=== PATIENT | female | born 1950 | race Caucasian/White ===

== ENCOUNTER 2018-07-13 19:21 | Emergency (ER) | payer MEDICARE, SELFPAY ==
[2018-07-13 19:22] VITALS: BP 165/94; PULSE 71; RESP 15; TEMP 36.3; BMI 33.6
--- NOTE | 2018-07-13 19:46 | ED.DCSUM_ITS ---
- ER Visit Summary Date of Service: 07/13/18 Chief Complaint: Back pain History of Present Illness: The patient is a 67 F presents with chronic back pain for a year to year and a half which got worse. She recently moved from [place] back to [place] and does not have a pain management doctor she is trying to get back into the pain management. She has no radiation of pain, no bowel or bladder compromise no urinary retention symptoms no saddle anesthesia. Physical Examination: She appears in some distress Moist mucous membranes, no obvious facial deformity No C-spine tenderness supple neck. Regular rate and rhythm without any obvious murmurs Clear lungs bilaterally speaking in full sentences without any obvious respiratory distress Abdomen soft and nontender no guarding or rebound She has tenderness over right paraspinal region of her lower back into her buttock. Negative straight leg test. Reflexes are 2+ patellar bilaterally 1+ Achilles bilaterally normal plantar flexion of both feet normal dorsiflexion of both great toes. Moves all extremities without any difficulty or pain. Skin does not show any obvious rashes or lesions, no trauma. Alert oriented ?3 with no gross focal deficit Emergency Department Course and Treatment: Patient will be given Dilaudid and Toradol. I will give her tizanidine for home. Discharge stable condition Impression: Acute on chronic back pain This note was generated with [employer] dictation software. It may contain incorrect words, spelling, and punctuation that were not noted in review of the chart prior to signing ED Disposition - Plan for ED Patient: Disposition: Home or Assisted Living Chief Complaint: Back Instructions: ED Low Back Pain Injury Prescriptions: Tizanidine HCl 4 mg PO TID #25 tab Referrals: Heladio Edwards MD [Primary Care Provider] -
[2018-07-13] MEDS: HYDROmorphone 1 MG/ML Syringe SC (19:53)
[2018-07-13] MEDS: Ketorolac 30 MG/ML Syringe IM (19:53)
[2018-07-13 20:16] VITALS: BP 170/75; PULSE 65; RESP 17; O2SAT 96
--- NOTE | 2018-07-13 20:17 | ED.RN ---
DISCHARGE INSTRUCTIONS GIVEN TO AND REVIEWED WITH PATIENT, PATIENT DENIES QUESTIONS OR CONCERNS AND VOICES UNDERSTANDING OF DISCHARGE INSTRUCTIONS. PT AMBULATES OUT OF ROOM WITHOUT DIFFICULTY.
== END 2018-07-13 20:18 | disposition home or self-care (01) ==
PROVIDERS: Emergency Provider Emergency Medicine; Family Provider Family Medicine; PCP Family Medicine
DX: M54.9 Dorsalgia, unspecified (principal); G89.29 Other chronic pain; J44.9 Chronic obstructive pulmonary disease, unspecified; E11.9 Type 2 diabetes mellitus without complications; G47.33 Obstructive sleep apnea (adult) (pediatric); Z72.0 Tobacco use; Z85.118 Personal history of other malignant neoplasm of bronchus and lung; Z79.02 Long term (current) use of antithrombotics/antiplatelets; Z79.82 Long term (current) use of aspirin; Z79.899 Other long term (current) drug therapy
CPT/HCPCS: 96372; 99282

== ENCOUNTER → 2019-01-09 15:11 | Outpatient (CLI) | payer MEDICARE, SELFPAY ==
--- NOTE | 2019-01-09 15:23 | MRI_ITS ---
STUDY: MRI LUMBAR SPINE WITHOUT CONTRAST REASON FOR EXAM: Female, 68 years old. Lower back pain for years. TECHNIQUE: Standardized fat and water weighted pulse sequences were obtained in the sagittal and axial planes. COMPARISON: None FINDINGS: T12-L1: Normal endplates. Normal disc height, hydration and morphology. Normal bilateral facet joints. Normal central canal and bilateral lateral recesses. Normal bilateral intervertebral neural foramina. Normal lumbar lordosis. There is no substantial scoliosis. Normal conus medullaris that terminates at the L2 level. L1-2: Disc desiccation mild decreased disc space with broad-based disc bulge. No significant spinal canal narrowing or foraminal narrowing. L2-3: Disc desiccation with preserved disc space without associated spinal canal narrowing or foraminal narrowing. L3-4: Disc desiccation and mild broad-based disc bulge without associated spinal canal narrowing or foraminal narrowing. L4-5: Disc desiccation with preserved disc space and minimal disc bulge without associated spinal canal narrowing or foraminal narrowing. L5-S1: Left para foraminal disc bulge with minimal left foraminal narrowing and otherwise no evidence of spinal canal narrowing. Normal visualized sacral ala. Normal visualized paraspinous soft tissue structures. MRI/Spine Lumbar (Routine) IMPRESSION: 1. L5/S1para foraminal left disc bulge resulting in minimal foraminal narrowing otherwise multiple levels with disc desiccation without significant spinal canal narrowing or foraminal narrowing. Electronically Signed: Pollo Fang DO at 8:35 EDT , Service support ,
== END ==
PROVIDERS: Family Provider Family Medicine; PCP Family Medicine; Referring Provider Anesthesiology Pain Medicine; Visit Provider Anesthesiology Pain Medicine
DX: M54.9 Dorsalgia, unspecified (principal)
CPT/HCPCS: 72148

== ENCOUNTER 2019-03-04 11:14 | Emergency (ER) | payer MEDICARE, SELFPAY ==
[2019-03-04 11:14] VITALS: PULSE 65; RESP 20; TEMP 36.9; O2SAT 99
[2019-03-04 11:15] VITALS: BP 150/82; PULSE 62; RESP 19; TEMP 36.9; O2SAT 99; BMI 35.1
--- NOTE | 2019-03-04 11:34 | EKG12_ITS ---
Test Reason : SOB Blood Pressure : / mmHG Vent. Rate : 065 BPM Atrial Rate : 065 BPM P-R Int : 214 ms QRS Dur : 086 ms QT Int : 454 ms P-R-T Axes : 068 050 064 degrees QTc Int : 472 ms Sinus rhythm with 1st degree A-V block Nonspecific T wave abnormality Prolonged QT Abnormal ECG Confirmed by GINO RUSHING, JANNETTE ([id number]), food editor JEFFREY DANIELS ([id number]) on 03/06/2019 12:33:01 PM Referred By: RENALDO/VERONICA Confirmed By:KAMI CHRISTIAN MD
--- NOTE | 2019-03-04 11:35 | RAD_ITS ---
STUDY: X-RAY CHEST REASON FOR EXAM: Female, 68 years old. Worsening shortness of breath TECHNIQUE: PA and lateral views of the chest. COMPARISON: 07/10/2016 FINDINGS: EKG leads overlie the chest The lungs are clear and expanded. There is no demonstrated pleural abnormality. Normal size heart. Normal mediastinum and fortino. Normal visualized pulmonary arteries. There is atherosclerotic calcification of the aortic arch with tortuosity. Normal visualized thoracic spine. Normal visualized ribs, clavicles, and shoulders. There is no demonstrated abnormality of the visualized soft tissue structures of the upper abdomen. RAD/Chest PA and Lateral IMPRESSION: No acute pulmonary process Electronically Signed: Farncis Johnson MD at 12:09 EDT , Service support ,
[2019-03-04 11:52] VITALS: O2SAT 95
[2019-03-04 12:09] LABS: Anion Gap 7 (5-15); BUN 14 mg/dL (7-18); BUN/Creat Ratio 21.2 RATIO (10-20); Calcium,Total 9.4 mg/dL (8.5-10.1); Chloride 103 mmol/L (98-107); Creatinine, Serum 0.66 mg/dL (0.55-1.02); EST Glomerular Filtration Rate 94 mL/min (>60); Est Glom Filt Rate - Afr Amer 114 mL/min (>60); Glucose 111 mg/dL (74-106); Potassium 4.1 mmol/L (3.5-5.1); Sodium Level 138 mmol/L (136-145)
[2019-03-04 12:13] LABS: Absolute Lymphocyte Count 1.94 X10^3/ul (0.83-4.51); Absolute Neutrophil Count 5.7 X10^3/uL (2.0-7.7); Basophil# 0.02 X10^3/uL; Basophil% 0.2 % (0-1); Eosinophil# 0.06 X10^3/uL; Eosinophils% 0.7 % (0-5); Hematocrit 42.4 % (37-47); Hemoglobin 14.1 g/dl (12.0-15.0); Lymphocyte # 1.94 X10^3/ul (4.0); Lymphocyte % 23.3 % (19-41); Mean Corp Hgb Conc 33.3 g/gl (32-36); Mean Corpuscular Hgb 29.9 pg (27.0-32.0); Mean Corpuscular Volume 89.8 fL (81-99); Mean Platelet Vol. 9.7 fl (6.2-12.0); Monocyte# 0.55 X10^3/uL; Monocyte% 6.6 % (0-10); Neutrophil # 5.73 X10^3/uL (2.7-7.7); Platelet Count 272 K/mm3 (150-450); RBC Distribution Width CV 14.2 % (11.6-14.6); RBC Distribution Width SD 46.5 fl (35.1-43.9); Red Blood Count 4.72 M/mm3 (4.2-5.4); White Blood Count 8.3 K/mm3 (4.4-11.0)
[2019-03-04 12:18] LABS: POSITIVE COUNT NO; POSITIVE DIFFERENTIAL NO; POSITIVE MORPHOLOGY NO
[2019-03-04 13:28] LABS: BNP,B-Type NATRIURETIC PEPTIDE 15.2 pg/mL (0-100)
--- NOTE | 2019-03-04 13:44 | ED.VISSUMM ---
- ER Visit Summary Date of Service: 03/04/19 Chief Complaint: Dyspnea History of Present Illness: The patient is a 68 F who states for the past month she has had dyspnea on exertion. She states it feels different than her COPD dyspnea. She states she cannot really describe why. She also notes some urinary frequency. She notes no change in her cough. She has had her feet and ankle have been swelling which is new for her. She states that she has gained about 10 pounds. She states that somebody from [employer] was at her house today they recommended that she go to her doctor but she could not get to her doctor's office so she called the ambulance to bring her here. History of hypertension history of lung cancer COPD and hypercholesterolemia. No fevers. Physical Examination: Afebrile vital signs stable Gen: Well-nourished well-developed Head: Normocephalic atraumatic Eyes: Perrl EOMI ENT: TMs clear no rhinorrhea moist mucous membranes Neck: Supple no lymphadenopathy no JVD nontender CVS: Regular rate rhythm no murmurs normal S1-S2 Respiratory: No distress patient is tachypneic but her lungs are clear to auscultation bilaterally chest nontender Abdomen: Soft nontender nondistended normal bowel sounds no masses Back: Nontender Extremity: Nontender no edema Skin: Normal color no rash Neuro: alert orientated ?3 CN II-XII intact normal strength sensation reflexes gait cerebellar Psych: Normal affect normal mood Test Results: Chest x-ray is negative. EKG shows a sinus rhythm with first-degree block at a rate of 65. CBC is normal troponin negative glucose 111 perimetric peptide normal at 15. Normal creatinine. Emergency Department Course and Treatment: Repeat examination the patient is on room air. She is not dyspneic I think it is reasonable to prescribe her Lasix for the next few days and have her follow-up. She is to do weigh yourself daily take that information to her doctor's office. Impression: 1. Dyspnea 2. Lymphedema This note was generated with [employer] dictation software. It may contain incorrect words, spelling, and punctuation that were not noted in review of the chart prior to signing ED Disposition - Plan for ED Patient: Disposition: Home or Assisted Living Instructions: Lymphedema Prescriptions: Furosemide [Lasix] 40 mg PO DAILY #5 tab Prescription Printed Referrals: Heladio Edwards MD [Primary Care Provider] - 5-7 Days
[2019-03-04 14:27] VITALS: BP 156/57; PULSE 74; RESP 18; O2SAT 96
== END 2019-03-04 14:31 | disposition home or self-care (01) ==
PROVIDERS: Emergency Provider Emergency Medicine; Family Provider Family Medicine; PCP Family Medicine
DX: R06.00 Dyspnea, unspecified (principal); I89.0 Lymphedema, not elsewhere classified; J44.9 Chronic obstructive pulmonary disease, unspecified; I10 Essential (primary) hypertension; E78.00 Pure hypercholesterolemia, unspecified; R35.0 Frequency of micturition; M79.89 Other specified soft tissue disorders; Z79.02 Long term (current) use of antithrombotics/antiplatelets; Z79.82 Long term (current) use of aspirin; Z79.899 Other long term (current) drug therapy; Z85.118 Personal history of other malignant neoplasm of bronchus and lung; Z87.891 Personal history of nicotine dependence
CPT/HCPCS: 71046; 80048; 83880; 84484; 85025; 93005; 99285; A4216

== ENCOUNTER → 2019-03-14 10:39 | Outpatient (CLI) | payer MEDICARE, SELFPAY ==
[2019-03-04 11:15] VITALS: BMI 35.1
[2019-03-14 11:42] LABS: Amphetamine Urine VISTA NEGATIVE (<1000 ng/mL); Barbiturate Urine VISTA NEGATIVE (< 200 ng/mL); Benzodiazepine Urine VISTA NEGATIVE (< 200 ng/mL); Cocaine Urine VISTA NEGATIVE (< 300 ng/mL); Ecstacy Urine VISTA NEGATIVE (< 500 ng/mL); Methadone Urine VISTA NEGATIVE (< 300 ng/mL); PCP Urine VISTA NEGATIVE (< 25 ng/mL); THC Urine VISTA NEGATIVE (< 50 ng/mL); Vista UDS pH Range 6
== END ==
PROVIDERS: Family Provider Family Medicine; PCP Family Medicine; Referring Provider Anesthesiology Pain Medicine; Visit Provider Anesthesiology Pain Medicine
DX: F11.20 Opioid dependence, uncomplicated (principal)
CPT/HCPCS: 80307

== ENCOUNTER 2019-04-07 20:28 | Emergency (ER) | payer MEDICARE, SELFPAY ==
[2019-04-07 20:29] VITALS: BP 154/83; PULSE 76; RESP 16; TEMP 36.6; O2SAT 97; BMI 32.9
--- NOTE | 2019-04-07 20:42 | ED.VIS.GEN ---
History of Present Illness Chief Complaint: Chest Other Informant: Patient Onset: Yesterday Context: Sudden Onset Timing: Continuous Quality: Pain located under left breast Location: Inferior left breast Current Severity: Mild Maximum Severity: Severe Worsened by: Movement, supine position, use of left upper extremity Relieved by: Rest Associated Symptoms: None Narrative: Patient is an elderly woman who began working out at [facility]. She reports pain under her left breast. Pain is worse with movement. She has no associated symptoms. She does have risk factors for coronary disease. She has no other complaints. There is no history of PE or DVT. There is no complaint of leg pain, swelling or discoloration. She has not noted a rash. There is no history of direct trauma. Prior similar symptoms: No Recent Illness/Hospitalization: No - Past Medical History (1) History of type 2 diabetes mellitus Status: Acute (2) COPD exacerbation Status: Acute (3) Sleep apnea Status: Chronic (4) Tobacco abuse Status: Chronic (5) Lung cancer Status: Resolved Past Medical History - Allergies and Home Meds Allergies/Adverse Reactions: Allergies bupropion HCl [From Wellbutrin] Allergy (Verified 04/07/19 20:33) Hives gabapentin [From Neurontin] Allergy (Verified 04/07/19 20:33) Other moxifloxacin HCl [From Avelox] Allergy (Verified 04/07/19 20:33) Hives Primary Care Physician: Heladio Edwards MD [Primary Care Provider] - Prior records reviewed: Yes Surgical History: noncontributory Lives: Alone Smoking Status: Former smoker Alcohol: None Drugs: None - Family History Maternal Family History: Reports: No pertinent history Review of Systems General: Denies: Chills, Fever, Malaise, Subjective, Sweats, Weight loss, - Cardiovascular: Reports: Chest pain. Denies: Palpitations, Heart racing Respiratory: Denies: Dyspnea, Cough, Sputum, Dyspnea on exertion, Orthopnea, Paroxysmal nocturnal dyspnea, -, - Gastrointestinal: Denies: Abdominal pain, Nausea, Vomiting, Diarrhea, Constipation, Melena, Hematochezia, -, - Genitourinary: Denies: Dysuria, Hematuria, Frequency Musculoskeletal: Reports: Back pain. Denies: Myalgias, Arthralgias, Neck pain, Swelling, Extremity Pain Skin: Denies: Rash, Abscess, Abrasions, Wounds, -, - Hematologic: Denies: Easy bruising, Easy bleeding Allergy: Denies: Uticaria, Swelling of the mouth Physical Exam Vital Signs/Narrative: Vital Signs Temp Pulse Resp BP Pulse Ox 04/07/19 20:29 97.9 F 76 16 154/83 H 97 Inital Vital Signs reviewed: Yes General: Well nourished, Well developed, No Acute Distress Head: Normocephalic, Atraumatic Eyes: Perrl, EOMI. Negative for: Pale conjunctiva, Scleral icterus, - ENT: Moist mucous membranes, No rhinorrhea Cardiovascular: Regular rate, Regular rhythm, No murmurs, Normal S1, Normal S2 Respiratory: No distress, CTA bilaterally, Chest tenderness - Reproducible chest pain inferior left breast over the lower ribs. There is no crepitus or subcutaneous air. Abdomen: Soft, Nontender, Nondistended, Normal bowel sounds, No masses. Negative for: Hepatomegaly, Splenomegaly Back: Nontender, Normal Inspection. Negative for: CVA tenderness Extremities: Nontender, No edema Skin: Normal color, No rash, No Trauma. Negative for: Cyanosis, Diaphoresis, Jaundice Neurological: Alert, Oriented x3, Cranial nerves II-XII grossly intact, Normal Strength, Normal Sensation Psychological: Normal affect, Normal Mood Diagnostic/Tx/Re-eval - Medical Decision Making Istria pain after she began working out 3 days ago the fact the pain is worse with movement of her left upper extremity and reproducible with no rash noted this is muscular pain. There is no evidence of shingles. ED Disposition - Plan for ED Patient: Disposition: Home or Assisted Living Diagnosis: Left-sided chest wall pain Instructions: Chest Wall Strain Prescriptions: Hydrocodone Bitart/Apap 5-325 [Marshall 5MG-325MG] 1 tablet PO Q6H PRN PRN 3 Days #10 tablet PRN Reason: Pain Transmission Status: Sent to [facility] Referrals: Heladio Edwards MD [Primary Care Provider] - Additional Instructions: Your prescription was electronically transmitted to [facility].
[2019-04-07] MEDS: HYDROcodone Bitartrate/Apap 5/325 Tablet PO (21:08)
== END 2019-04-07 21:12 | disposition home or self-care (01) ==
LOC: ED 20:52
PROVIDERS: Emergency Provider Emergency Medicine; Family Provider Family Medicine; PCP Family Medicine
DX: R07.89 Other chest pain (principal); J44.9 Chronic obstructive pulmonary disease, unspecified; E11.9 Type 2 diabetes mellitus without complications; G47.30 Sleep apnea, unspecified; Z79.02 Long term (current) use of antithrombotics/antiplatelets; Z79.82 Long term (current) use of aspirin; Z79.52 Long term (current) use of systemic steroids; Z79.899 Other long term (current) drug therapy; Z88.8 Allergy status to other drugs, medicaments and biological substances; Z85.118 Personal history of other malignant neoplasm of bronchus and lung; Z87.891 Personal history of nicotine dependence
CPT/HCPCS: 99283

== ENCOUNTER → 2020-02-04 13:35 | Outpatient (CLI) | payer MEDICARE, SELFPAY ==
--- NOTE | 2020-02-04 13:36 | RAD_ITS ---
STUDY: X-RAY - LEFT KNEE REASON FOR EXAM: Female, 69 years old. PAIN TECHNIQUE: 5 view(s) of the knee. Crooks views included COMPARISON: None. FINDINGS: There is demineralization of the visualized distal femur. There is demineralization of the tibia and fibula. Normal proximal tibiofibular articulation. There is no demonstrated fracture. There is mild degenerative arthrosis of the medial femorotibial compartment. Normal lateral femorotibial compartment. There is mild to moderate narrowing of the lateral patellofemoral compartment. There is no demonstrated joint effusion. There are atherosclerotic calcifications. RAD/Knee 4 or More Views IMPRESSION: Degenerative arthrosis. Electronically Signed: Rosendo Hargrove MD at 17:25 EDT , Service support ,
== END ==
PROVIDERS: PCP Family Medicine; Referring Provider Physician Assistant; Visit Provider Physician Assistant
DX: M17.12 Unilateral primary osteoarthritis, left knee (principal)
CPT/HCPCS: 73564

== ENCOUNTER 2020-03-01 13:17 | Emergency (ER) | payer MEDICARE, MEDICAID, SELFPAY ==
[2020-02-04 13:37] VITALS: BMI 32.9
[2020-03-01 13:18] VITALS: BP 144/78; PULSE 82; RESP 23; TEMP 36.6; O2SAT 96; BMI 30.8
--- NOTE | 2020-03-01 13:24 | EKG12_ITS ---
Test Reason : CP Blood Pressure : / mmHG Vent. Rate : 069 BPM Atrial Rate : 069 BPM P-R Int : 200 ms QRS Dur : 088 ms QT Int : 402 ms P-R-T Axes : 049 067 075 degrees QTc Int : 430 ms Normal sinus rhythm Nonspecific T wave abnormality Abnormal ECG Confirmed by NEIDA RUSHING, BREE ([id number]), newspaper editor managing JEFFREY DANIELS ([id number]) on 03/03/2020 1:21:30 PM Referred By: RENATO Confirmed By:BREE CARRASQUILLO MD
--- NOTE | 2020-03-01 14:13 | RAD_ITS ---
STUDY: X-RAY - UNILATERAL RIBS ( RIGHT ) WITH CHEST REASON FOR EXAM: Female, 69 years old. PT GOT BEAR HUGGED 9 DAYS AGO, CONTINUED ANTERIOR RIB PAIN TECHNIQUE - RIBS: 4 view(s) of the ribs. TECHNIQUE - CHEST: Single PA view of the chest. COMPARISON: Comparison is made with prior chest radiograph dated March 04, 2019. FINDINGS - RIBS: Normal visualized ribs without a demonstrated fracture. FINDINGS - CHEST: The lungs are clear and expanded. There is no demonstrated pleural abnormality. Normal size heart. Normal mediastinum and fortino. Normal visualized pulmonary arteries. There is atherosclerotic calcification of the aortic arch with tortuosity. There is a mild dextroscoliosis of the thoracic spine. Normal visualized ribs, clavicles, and shoulders. There is no demonstrated abnormality of the visualized soft tissue structures of the upper abdomen. RAD/Ribs Uni Min 3V w/PA Chest IMPRESSION: RIBS: Normal x-ray examination of the ribs. CHEST: Normal x-ray examination of the chest. Electronically Signed: Dion Orourke, at 14:55 EDT , Service support ,
[2020-03-01 14:17] VITALS: RESP 18; O2SAT 100
[2020-03-01] MEDS: morphine 8 MG/ML Syringe IM (14:20)
[2020-03-01] MEDS: Ondansetron 8 MG Tablet PO (14:20)
--- NOTE | 2020-03-01 14:37 | ED.VISSUMM ---
- ER Visit Summary Date of Service: 03/01/20 Chief Complaint: Right-sided rib pain History of Present Illness: The patient is a 69 F presenting with right-sided rib pain. Patient states this started 9 days ago. She states she was given a bear hug by a friend. Following this she had severe pain in her right ribs. She was seen at urgent care and had an x-ray and was diagnosed with a right sided rib fracture. She has been taking ibuprofen at home. She complains of persistent pain. She has a history of COPD. She states she has shortness of breath but this is no worse than usual. Denies other complaints. Physical Examination: Vitals are stable. Patient is afebrile. Alert no acute distress. HEENT exam is unremarkable. Neck is supple. Lungs are clear and equal bilaterally. Right lateral chest wall tenderness. No crepitus Heart is regular rate and rhythm. Abdomen is soft nontender nondistended. No guarding or rebound Extremities are unremarkable. Skin is warm and dry. Erythematous rash right lower chest consistent with herpes zoster Remainder of exam is unremarkable. Emergency Department Course and Treatment: Patient was given morphine, Zofran. Right-sided rib xray shows RIBS: Normal x-ray examination of the ribs. CHEST: Normal x-ray examination of the chest. Patient feels improved following medications. She is given prescription for Valacyclovir and Percocet. She is advised to follow-up with her primary care physician. She was given an incentive spirometer. Advised return the ED if worsening complaints. Disposition: Discharged home Impression: Herpes zoster, right rib contusion This note was generated with [employer] dictation software. It may contain incorrect words, spelling, and punctuation that were not noted in review of the chart prior to signing ED Disposition - Plan for ED Patient: Instructions: ED CHEST CONTUSION, ED Shingles Prescriptions: Oxycodone HCl/Acetaminophen [Percocet 5/325] 1 tab PO Q6H PRN PRN 3 Days #12 tab PRN Reason: Pain Prescription Printed Valacyclovir HCl [Valacyclovir] 1,000 mg PO TID #21 tab Prescription Printed Referrals: Heladio Edwards MD [Primary Care Provider] -
--- NOTE | 2020-03-01 15:42 | ED.DEP ---
ED Disposition - Plan for ED Patient: Instructions: ED CHEST CONTUSION, ED Shingles Prescriptions: Oxycodone HCl/Acetaminophen [Percocet 5/325] 1 tablet PO Q6H PRN PRN 3 Days #12 tablet PRN Reason: Pain Valacyclovir HCl [Valacyclovir] 1,000 mg PO TID #21 tablet Referrals: Heladio Edwards MD [Primary Care Provider] -
== END 2020-03-01 16:24 | disposition home or self-care (01) ==
PROVIDERS: Emergency Provider Emergency Medicine; PCP Family Medicine
DX: S20.211A Contusion of right front wall of thorax, initial encounter (principal); X58.XXXA Exposure to other specified factors, initial encounter; Y93.89 Activity, other specified; Y92.9 Unspecified place or not applicable; Y99.8 Other external cause status; B02.9 Zoster without complications; J44.9 Chronic obstructive pulmonary disease, unspecified; Z72.0 Tobacco use
CPT/HCPCS: 71101; 93005; 96372; 99283

== ENCOUNTER 2020-08-25 15:01 | Emergency (ER) | payer MEDICARE, MEDICAID, SELFPAY ==
[2020-08-25 15:02] VITALS: BP 181/81; PULSE 85; RESP 16; TEMP 36.2; O2SAT 98; BMI 32.8
[2020-08-25] MEDS: HYDROcodone Bitartrate/Apap 5/325 Tablet PO (15:27)
--- NOTE | 2020-08-25 15:30 | RAD_ITS ---
STUDY: X-RAY - LEFT KNEE REASON FOR EXAM: Female, 69 years old. LEFT KNEE PAIN x 3 WEEKS, UNKNOWN HOW INJURED TECHNIQUE: 4 view(s) of the knee. COMPARISON: 02/04/2020 FINDINGS: Normal visualized distal femur. Normal visualized proximal tibia and fibula. Normal proximal tibiofibular articulation. There is mild degenerative arthrosis of the medial femorotibial compartment. Normal lateral femorotibial compartment. Normal patellofemoral articulation. The soft tissue structures are unremarkable. RAD/Knee 4 or More Views IMPRESSION: No acute fracture or dislocation. Electronically Signed: Dario Burdick MD at 15:42 EST Tel , Service support ,
--- NOTE | 2020-08-25 15:38 | ED.VISSUMM ---
- ER Visit Summary Date of Service: 08/25/20 Chief Complaint: Left knee pain History of Present Illness: The patient is a [address] Davies and Dr. Edwards. She reports she has left knee pain that began 3 weeks ago. She does not remember a specific injury. However, she reports that this is similar to when she has had meniscus tears in the past. Complains of a sharp pain is 8 of 10 with movement and pain-free at rest. She denies any numbness or weakness. Physical Examination: Vitals: Stable. Afebrile. General: Well-nourished and well-developed. Head: Normocephalic atraumatic. Neck: Supple, no lymphadenopathy. No JVD. Nontender. Cardiovascular: Regular rate and rhythm. No murmurs. Respiratory: No respiratory distress. Clear to auscultation bilaterally. Abdominal: Soft, nontender, nondistended, normal bowel sounds. No guarding, rebound, or peritoneal signs. Back: Nontender. Extremities: Left knee: Mild diffuse tenderness to palpation with no point tenderness. There is no overlying erythema or warmth to suggest a septic joint. She has no joint effusion. She has no pain with short arc movements. She does have pain, but no ligamentous instability with anterior/posterior drawer and medial/lateral stress. Skin: Normal color, no rash. Neurologic: Alert and oriented ?3. Cranial nerves II through XII are intact. Normal strength and sensation. Psych: Normal affect. Test Results: Left knee x-ray shows no acute disease. Emergency Department Course and Treatment: Patient was treated with Kasbeer and placed in a knee immobilizer. Treatment Plan: An [facility] report was obtained which shows the patient's only had 5 prescriptions for opiates in the past year. However, on August 01 patient was given a prescription for a buprenorphine patch by Dr. Gregg Long. I discussed the patient that prescribing additional opiate medications with this patch on is not appropriate. She does understand this. She instructed to ice and use Tylenol and/or ibuprofen for additional pain. Follow-up with Dr. Long for further opiate-based medications. Follow-up Dr. Davies as soon as she can regarding her knee pain. Disposition: To home in improved and stable condition. Impression: 1. Left knee pain. This note was generated with [employer] software. It may contain incorrect words, spelling, and punctuation that were not noted in review of the chart prior to signing ED Disposition - Plan for ED Patient: Instructions: ED Knee Pain of Uncertain Cause Referrals: Gregg Long DO [STAFF PHYSICIAN] - As soon as possible Yaquelin Davies DO [STAFF PHYSICIAN] - As soon as possible
[2020-08-25 16:16] VITALS: BP 159/89; PULSE 75; RESP 16; O2SAT 93
== END 2020-08-25 16:18 | disposition home or self-care (01) ==
LOC: ED 15:46
PROVIDERS: Emergency Provider Emergency Medicine; PCP Family Medicine
DX: M25.562 Pain in left knee (principal); I10 Essential (primary) hypertension; E11.9 Type 2 diabetes mellitus without complications; J44.9 Chronic obstructive pulmonary disease, unspecified; Z79.84 Long term (current) use of oral hypoglycemic drugs; Z79.899 Other long term (current) drug therapy; Z72.0 Tobacco use
CPT/HCPCS: 73564; 99283

== ENCOUNTER → 2020-09-09 12:24 | Outpatient (CLI) | payer MEDICARE, MEDICAID, SELFPAY ==
[2020-09-02 09:46] VITALS: BMI 30.8
--- NOTE | 2020-09-09 12:26 | MRI_ITS ---
STUDY: MRI LEFT KNEE REASON FOR EXAM: Medial/anterior left knee pain, no specific injury, meniscal surgery 2015. TECHNIQUE: Standardized fat and water weighted pulse sequences were obtained in all 3 orthogonal planes. COMPARISON: Radiographs 08/25/2020. FINDINGS: There is a partial medial meniscectomy. There is a small subtle oblique band of signal in the posterior horn of the medial meniscus extending to the inferior articular surface (proton-density sagittal images 11-14), either scarring or small recurrent medial meniscal tear. Normal hyaline cartilage of the medial femorotibial compartment. There is mild subchondral bone edema of the medial tibial plateau (T2 coronal images 15-17), a stress phenomenon. Normal medial collateral ligamentous complex (MCL). Normal distal semimembranosus, gracilis and semitendinosus tendons. Normal lateral meniscus. Normal hyaline cartilage of the lateral femorotibial compartment. Normal lateral femoral condyle and tibial plateau. Normal proximal tibiofibular articulation. Normal lateral collateral (fibular) ligament. Normal popliteus tendon. Normal biceps femoris tendon. Normal anterior cruciate ligament (ACL). Normal posterior cruciate ligament (PCL). Normal congruent patellofemoral articulation. Normal hyaline cartilage of the patellofemoral compartment. Normal medial and lateral patellar retinaculum. Normal quadriceps tendon. Normal patellar tendon. Normal Hoffa''s fat pad. There is a minimal volume of fluid in the knee joint. There is mild edema in the anterior subcutis adipose space. The otherwise visualized osseous structures are unremarkable. MRI/Lower Ext Joint Only (Routine) IMPRESSION: Partial medial meniscectomy with subtle signal alteration of the posterior horn of the medial meniscus, either scarring or small recurrent medial meniscal tear. Mild subchondral bone edema of the medial tibial plateau, a stress phenomenon. Electronically Signed: Carlton Fernandes MD at 13:50 EST Tel , Service support ,
== END ==
PROVIDERS: PCP Family Medicine; Referring Provider Physician Assistant; Visit Provider Physician Assistant
DX: M25.562 Pain in left knee (principal)
CPT/HCPCS: 73721

== ENCOUNTER 2020-10-05 06:43 | Day surgery (SDC) | payer MEDICARE, MEDICAID, SELFPAY ==
[2020-09-02 09:46] VITALS: BMI 30.8
[2020-10-05] VITALS (9 sets, daily range): BP systolic 108–149; BP diastolic 46–76; PULSE 60–70; RESP 16; TEMP 36.3–36.6; O2SAT 94–100; BMI 32.3
[2020-10-05] MEDS: Lactated Ringers 1,000 ML 100 ML IV ×2 (07:21→11:10)
[2020-10-05 07:30] LABS: Bedside Glucose 108 mg/dL (70-110)
[2020-10-05] MEDS: Epinephrine (1 mg/ml) 1 MG/ML VIAL (08:56)
[2020-10-05] MEDS: Mupirocin Ointment 22gm Tube 1 APPLIC (08:56)
--- NOTE | 2020-10-05 09:00 | RAD_ITS ---
STUDY: X-RAY - LEFT KNEE REASON FOR EXAM: Micro internal fixation of tibial plateau. TECHNIQUE: 3 intraoperative images of the knee. COMPARISON: Radiographs 08/25/2020. FINDINGS: Fluoroscopy was provided for localization of the medial tibial plateau. Electronically Signed: Carlton Fernandes MD at 15:15 EST Tel , Service support , RAD/Knee 1 or 2 Views
[2020-10-05] MEDS: Cefazolin 2 GM in 0.9% Normal Saline 100 ML IV (09:12)
--- NOTE | 2020-10-05 09:27 | PCM.HP.BLA ---
History and Physical I have re-examined the patient. There are no clinical changes since date of exam. Intake Intake Visit Reasons: Left knee Accompanied by: Self Is patient in pain?: Yes Pain scale (1-10): 5 Allergies bupropion HCl [From Wellbutrin] Allergy (Verified 09/16/20 12:57) Hives gabapentin [From Neurontin] Allergy (Verified 09/16/20 12:57) Other moxifloxacin HCl [From Avelox] Allergy (Verified 09/16/20 12:57) Hives Medications Pramipexole Di-HCl [Pramipexole Dihydrochloride] 1.5 mg PO QHS 06/12/14 [History Confirmed 09/16/20] traZODone [Desyrel] 100 mg PO QHS 06/12/14 [History Confirmed 09/16/20] Ropinirole HCl [Requip] 2 mg PO QHS 10/20/15 [History Confirmed 09/16/20] Albuterol Inhaler [Ventolin Hfa] 1 - 2 puff INHALATION Q4H PRN PRN #1 inhaler 05/31/16 [Rx Confirmed 09/16/20] Amlodipine [Norvasc] 5 mg PO DAILY #30 tab 05/31/16 [Rx Confirmed 09/16/20] Albuterol Aerosols [Ventolin Aerosols] 1 inhaler INHALATION Q4H PRN 07/01/16 [History Confirmed 09/16/20] Atorvastatin Calcium [Lipitor] 20 mg PO QHS 07/01/16 [History Confirmed 09/16/20] Metformin HCl 500 mg PO DAILY 08/25/20 [History Confirmed 09/16/20] umeclidinium 62.5 mcg/actuation blister powder for inhalation INHALATION 08/29/20 [History Confirmed 09/16/20] etodolac 500 mg tablet 500 mg PO BID #30 tab 08/31/20 [Rx Confirmed 09/16/20] PFS Social History (Updated 09/16/20 @ 14:27 by PHILOMENA Landrum) Smoking Status: Current every day smoker HPI Left knee: Details: Parts of this documentation were recorded by a scribe, this documentation accurately reflects the service provided and the decisions made by Kirby grace PA 09/16/[id number] PATT[place] is a 69 year old F here today for review of her MRI. Patient had her MRI on 09/09/2020. Patient states her pain is rated: 5/10 from the pain scale. Ortho Exam Left Knee Skin/Wound: No ecchymosis, No erythema, No swelling Contralateral Normal: Yes Homans Sign: No Knee ROM: Yes ROM-Extension -20 to 0, Yes ROM-Flexion 0-140 Examination: Yes med jt line tenderness, No Lat jt line tenderness, No TTP inf pole patella, Yes Pain with flexion Quad Atrophy: Yes Popliteal Adenopathy: No KNEE: No gross abnormalities on inspection of the knee. No evident effusion. She continues to have some medial joint line tenderness including the medial tibial plateau. Assessment & Plan Problems 1. Chronic pain of left knee M25.562; G89.29 2. Bone marrow edema R93.7 Plan Patient does the office today for follow-up of her MRI. Patient continues to have left knee pains primarily in the medial aspect of the knee. Patient has had an injection which she states did not improve her pain at all. 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 She does however continue to have instability/giving out as well as continued pain. MRI impression as well as images were reviewed and discussed with patient in office today. At this time patient states that the knee is constantly painful keeps her from doing things that she would like to do and constantly feels again unstable. We did discuss part of this could be that she gets pain from the edematous area shutting down the quad muscles at the same time she does have evident weakness of both of her quad muscles that she could benefit from strengthening. We also discussed there is the meniscus debate whether this is chronic scarring versus acute injury. With her having failed some conservative measures patient really would like to have something more aggressive done of the knee. I discussed with patient that we will have to confer with surgeon to decide next step if that would be an arthroscopy with meniscectomy versus repair as well as possible micro internal fixation. She will probably have to have a telehealth versus virtual visit to discuss with surgeon. Continue to ice and wear her brace and take an anti-inflammatory in the meantime. All of patient's questions were answered today. We did discuss risks of surgery which include but are not limited to blood clots, blood loss, infection, neurovascular injuries, failure of procedure, loss of limb loss of life from anesthesia as well as COVID-19 risk. Patient understands these and consent was signed in office today in case surgeon would want to proceed with arthroscopy. This note was generated with [employer] dictation software. It may contain incorrect words, spelling, and punctuation that were not noted in checking the note before signing. Discussed with patient about options for treatment. She has increased subchondral edema in her medial tibial plateau at this point due to evaluation see what looks like it with a anesthetic with arthroscopy and possible micro internal fixation. She will also put her on aspirin twice daily KAIA stockings elevate ice ankle pumps and call with concerns. Coding Level of Care Code Off vis,est,level 2 Diagnoses Chronic pain of left knee M25.562; G89.29 ??Chronicity: chronic Bone marrow edema R93.7
--- NOTE | 2020-10-05 09:28 | PCM.DC.ORTHO ---
Discharge Diet: No Restrictions - asa 325 bid, ttwb for 2 weeks, elevate, ice, ankle pumps, call with concerns, remove dressings in 4 days and apply bandaids to incision sites, may geit incision wet after 4 days Discharge Activity: May Not Drive May shower in (days): 1 Ice area for (Minutes): 20 - Every hour while awake. Weight Bearing Status: Weight bearing as tolerated Keep extremity elevated above heart level: Operative Extremity Call your doctor if your incision/area has: Continuous Slow Oozing, Sudden Increased Bleeding, Increased Pain/ Swelling, Increased Redness, Foul Smelling Discharge Call your doctor if you observe: Fever of 101 or Higher, Coldness, Increased Pain, Numbness or Tingling, Change in Color, Calf discomfort Allergies/Adverse Reactions: Allergies bupropion HCl [From Wellbutrin] Allergy (Verified 10/05/20 07:01) Hives gabapentin [From Neurontin] Allergy (Verified 10/05/20 07:01) Other moxifloxacin HCl [From Avelox] Allergy (Verified 10/05/20 07:01) Hives Medications to take at Discharge Pramipexole Di-HCl [Pramipexole Dihydrochloride] 1.5 mg PO QHS 06/12/14 traZODone [Desyrel] 100 mg PO QHS 06/12/14 Ropinirole HCl [Requip] 2 mg PO QHS 10/20/15 Albuterol Inhaler [Ventolin Hfa] 1 - 2 puff INHALATION Q4H PRN PRN #1 inhaler 05/31/16 Amlodipine [Norvasc] 5 mg PO DAILY #30 tab 05/31/16 Albuterol Aerosols [Ventolin Aerosols] 1 inhaler INHALATION Q4H PRN 07/01/16 Atorvastatin Calcium [Lipitor] 20 mg PO QHS 07/01/16 Metformin HCl 500 mg PO DAILY 08/25/20 umeclidinium 62.5 mcg/actuation blister powder for inhalation 1 puff INHALATION DAILY 08/29/20 Buprenorphine 1 ea TD QWEEK 09/28/20 tramadol 50 mg tablet 50 mg PO Q8H PRN 10 Days #30 tab 09/29/20 Oxycodone HCl/Acetaminophen [Percocet 5/325] 1 - 2 tab PO Q6H PRN PRN 5 Days #28 tab 10/05/20 The following prescriptions were given: Oxycodone HCl/Acetaminophen [Percocet 325] 1 - 2 tab PO Q6H PRN PRN 5 Days #28 tab PRN Reason: Pain Transmission Status: Sent to [facility] Primary Care Physician: Heladio Edwards MD [Primary Care Provider] - Test Results: Test results from this visit will be discussed in further detail at your follow-up appointment, if applicable. Please Follow Up With: Yaquelin Davies, DO - [phone]
--- NOTE | 2020-10-05 09:28 | PCM.OPRPT ---
Report of Operation Date of Procedure: 10/05/20 Pre-Operative Diagnosis: left knee oa, med and lateral meniscus tears, med tib plateau subchondral insufficiency fracture Post-Operative Diagnosis: same Surgery/Procedure Performed:: salk, pmm, plm, microinternal fixation medial tibial plateau infusion pharmacist: Kirby Hanks Type of Anesthesia:: General Anesthesiologist: Brennen Acevedo Estimated Blood Loss (mL): min Fluids Replaced: 700cc lr Description of Procedure: Preop note Patient is 70-year-old male with history of previous meniscectomy in the past with increasing medial knee pain especially along the medial tibial plateau. MRI confirms previous meniscectomy as well as increasing edema in the medial tibial plateau consistent with an insufficiency fracture. Risk benefits alternatives were discussed with patient. Risk include but not limited to blood loss, blood clot, infection, neurovascular, failure procedure, loss of life and loss of limb. Patient aware leprosy with left knee arthroscopy repair as indicated. Discussed preoperative and postoperative plan. Patient will be toe-touch weightbearing patient would be have pain medication as well as aspirin twice daily family is aware and agreement of plan. Yuliana Gorman We discussed the current risk associated COVID-19. While it is understood that there is a community spread of COVID 19 the risk of glen COVID-19 while at [facility] is very low, however, the risk cannot be completely mitigated because of the community spread of the disease. We discussed in detail the risk of exposure to and or potential harm posed by the COVID-19 virus with having a surgery/procedure at this time versus the risk of delaying the surgery/procedure. Is not possible to know either the risk of delaying the surgery procedure or chance of getting an infection with perfect accuracy, but a joint decision was made to proceed at this time with a schedule surgery/procedure as indicated on the consent form. Patient was notified that we will need to comply with any screening or testing [facility] wishes to perform or that surgery may be delayed for any positive results. Operative note Patient seen examined preoperative holding area. Left knee was marked. Patient brought to the operating room placed supine on the operating table. Signed, anesthesia, antibiotics were administered. Left knee was prepped and draped in usual sterile technique with a tourniquet on her upper thigh. All bony promises well-padded SCDs placed on her contralateral limb. Left leg is then marked out our anterior lateral and anterior medial portal placement. The left leg was then elevate exsanguinated tourniquet was raised her pressure of 250 torr. Timeout was performed. We then created an anterior lateral portal. Began our diagnostic arthroscopy. Patellofemoral femoral joint was unremarkable moved to the anteromedial joint line where we created anterior medial portal under direct visualization. We probed the meniscus for previous meniscectomy was intact she had grade 3 eburnated changes in the medial tibial plateau as well as medial femoral condyle on the more medial aspect. There were no grade 4 changes in the medial meniscus was fairly intact there is a small anterior tear that was just anterior to her previous mastectomy and this was gently debrided as well. We that the ACL PCL were present in the notch. The moved to the lateral joint line she had a small tear of the posterior horn of the lateral meniscus which was gently debrided with a shaver. We then started probe and that she did have lateral meniscus stable remnant remaining. We then coagulating bleeders that we did see. We irrigated knee with copious nonsterile saline. Removed to our micro internal fixation. Based on her preoperative view of the patient's left knee MRI the location of the bone marrow lesion consistent with insufficiency stress actually a stress fracture in the medial tibial plateau was identified. Preoperative surgical planning allow for determination of the optimal method for assessing the lesion. As rapidly intraoperatively image fluoroscopy combined with bone target instruments from [employer] were used to guide instruments into the proximity of the subchondral medial tibial plateau fracture. [employer] acupoint injection cannula was drilled into the subchondral bone. Standard repair methodology was used to treat the subchondral bone defect in the medial tibial plateau. Image fluoroscopy was utilized to confirm accurate insertion of the acupoint injection cannula into the Subchondral fracture. After insertion fracture stabilization was performed by injecting 1 cc of [employer] bone substitute material into the medial tibial plateau. Image fluoroscopy was used to monitor the injection process and ensure injection of the bone substitute into the subchondral bone so that the bio material flowed into the fracture site to stabilize the fracture and facilitate fracture repair. We then reinserted the scope into the knee to ensure that there was no extravasation of the fluid which is not. We irrigated the knee again with copious muscle sterile saline. We take as much fluid off the knee and then injected the knee with 8 cc bupivacaine 2 cc of Kenalog. The portals were closed with interrupted 4-0 nylon stitches. Sterile dressings were applied. Patient tolerated the procedure well no complications transferred recovery room in stable condition. Operative note Pharmacy has pain prescription is aspirin Call with increased pain numbness tingling or other issues arise Follow-up in 2 weeks Toe-touch weightbearing Discussed with family This note was generated with [employer] dictation software. It may contain incorrect words, spelling, and punctuation that were not noted in checking the note before signing. Grafts/Implants Used: anna scp kit
[2020-10-05] MEDS: Triamcinolone Acetonide 40 MG/ML Vial (10:20)
[2020-10-05] MEDS: Bupivacaine Mpf 0.5% 30 ML VIAL (10:26)
[2020-10-05] MEDS: HYDROcodone Bitartrate/Apap 5/325 Tablet PO (11:40)
== END 2020-10-05 12:44 | disposition home or self-care (01) ==
LOC: SDC 06:43 → AC 06:44
PROVIDERS: PCP Family Medicine; Referring Provider Orthopaedic Surgery; Visit Provider Orthopaedic Surgery
PROC: (CPT 29855; principal; 2020-10-05 08:40)
DX: M84.362A Stress fracture, left tibia, initial encounter for fracture (principal); M17.12 Unilateral primary osteoarthritis, left knee; S83.242A Other tear of medial meniscus, current injury, left knee, initial encounter; S83.282A Other tear of lateral meniscus, current injury, left knee, initial encounter; X58.XXXA Exposure to other specified factors, initial encounter; G89.29 Other chronic pain; D75.89 Other specified diseases of blood and blood-forming organs; I10 Essential (primary) hypertension; J43.9 Emphysema, unspecified; E11.9 Type 2 diabetes mellitus without complications; E78.00 Pure hypercholesterolemia, unspecified; G47.30 Sleep apnea, unspecified; G25.81 Restless legs syndrome; F17.200 Nicotine dependence, unspecified, uncomplicated; Z20.822 Contact with and (suspected) exposure to COVID-19; Z79.84 Long term (current) use of oral hypoglycemic drugs; Z79.899 Other long term (current) drug therapy
CPT/HCPCS: 29855; 29880; 64447; 76942; 73560; 76000; 82962; 87426; C9803; J7120; J2405

== ENCOUNTER 2020-10-15 14:30 | Emergency (ER) | payer MEDICARE, MEDICAID, SELFPAY ==
[2020-10-05 07:03] VITALS: BMI 32.3
[2020-10-15 14:31] VITALS: BP 163/57; PULSE 71; PULSE 79; RESP 16; RESP 25; TEMP 36.4; O2SAT 94; O2SAT 97; BMI 32.8
--- NOTE | 2020-10-15 14:45 | EKG12_ITS ---
Test Reason : CP Blood Pressure : / mmHG Vent. Rate : 072 BPM Atrial Rate : 072 BPM P-R Int : 188 ms QRS Dur : 088 ms QT Int : 420 ms P-R-T Axes : 043 065 075 degrees QTc Int : 459 ms Normal sinus rhythm Nonspecific T wave abnormality Abnormal ECG Confirmed by NEIDA RUSHING, BREE ([id number]), offline editor AYANNA LORENZO ([id number]) on 10/18/2020 11:28:35 AM Referred By: FRANCISCO Confirmed By:BREE CARRASQUILLO MD
--- NOTE | 2020-10-15 14:47 | ED.VIS.GEN ---
History of Present Illness Chief Complaint: Chest Pain Informant: Patient Narrative: 70-year-old female presenting for the evaluation of left-sided chest pain. Symptoms began about 45 minutes prior to arrival. She describes it as a dull ache but a severe ache. She notes her chest is sore when she pushes on it. She states that she had left knee surgery last week. She notes some mild swelling of the leg but not anything that is unexpected. She notes no change in her chronic shortness of breath from COPD. No significant cough. No fevers. She states that she is not able to bear any weight on the leg and has been using a wheelchair. - Past Medical History (1) History of type 2 diabetes mellitus Status: Chronic (2) Sleep apnea Status: Chronic (3) Lung cancer Status: Resolved Past Medical History - Allergies and Home Meds Allergies/Adverse Reactions: Allergies bupropion HCl [From Wellbutrin] Allergy (Verified 10/15/20 14:31) Hives gabapentin [From Neurontin] Allergy (Verified 10/15/20 14:31) Other moxifloxacin HCl [From Avelox] Allergy (Verified 10/15/20 14:31) Hives Primary Care Physician: Heladio Edwards MD [Primary Care Provider] - As soon as possible Past Medical History: - - COPD Surgical History: noncontributory Smoking Status: Current every day smoker Alcohol: None Drugs: None - Family History Maternal Family History: Reports: No pertinent history Paternal Family History: Reports: Diabetes, Heart Disease Sibling Family History: Reports: Heart Disease Review of Systems General: Denies: Chills, Fever, Sweats Eyes: Denies: Visual changes - bilaterally, Diplopia ENT: Denies: Rhinorrhea, Sore throat Cardiovascular: Reports: Chest pain. Denies: Palpitations Respiratory: Denies: Dyspnea, Cough, Dyspnea on exertion Gastrointestinal: Denies: Abdominal pain, Nausea, Vomiting, Diarrhea, Melena, Hematochezia Genitourinary: Denies: Dysuria, Hematuria, Frequency Musculoskeletal: Reports: Swelling, Extremity Pain. Denies: Back pain Skin: Denies: Rash, Wounds Neurological: Denies: Headache, Weakness, Numbness Physical Exam Vital Signs/Narrative: Vital Signs Temp Pulse Resp BP Pulse Ox 10/15/20 14:31 97.6 F L 71 16 163/57 H 97 Inital Vital Signs reviewed: Yes General: Well nourished, Well developed, Obese, No Acute Distress Head: Normocephalic, Atraumatic Eyes: Perrl, EOMI ENT: Moist mucous membranes, No rhinorrhea Neck: Supple, Nontender Cardiovascular: Regular rate, Regular rhythm, No murmurs Respiratory: No distress, CTA bilaterally, Chest tenderness Abdomen: Soft, Nontender, Nondistended, Normal bowel sounds Back: Nontender, Normal Inspection Extremities: Edema - Left nonpitting edema of the leg postoperative changes of the left knee without concern for infection Skin: Normal color, No rash Neurological: Alert, Oriented x3, Cranial nerves II-XII grossly intact, Normal Strength, Normal Sensation Psychological: Normal affect, Normal Mood Diagnostic/Tx/Re-eval Clinical Impression(s) from Imaging Studies Chest CTA 10/15/20 15:13 IMPRESSION: 1. Left more than right pulmonary embolism. No saddle embolus or CT evidence of right heart strain. 2. A few (at least 3) small (4-5 mm) pulmonary nodules, new since 2015. Nodules are below size limitations of PET scan and biopsy. Fleischner Society Guidelines for low-risk patients, no follow-up is necessary. For high-risk patients (smoking history or other known risk factors) an optional chest CT at 12 months could be performed. Electronically Signed: Christian Torre MD ([place]) at 15:51 EST , Service support , Laboratory Last Values WBC 13.4 K/mm3 (4.4-11.0) H 10/15/20 14:40 RBC 4.80 M/mm3 (4.2-5.4) 10/15/20 14:40 Hgb 14.3 g/dL (12.0-15.0) 10/15/20 14:40 Hct 44.5 % (37-47) 10/15/20 14:40 MCV 92.7 fL (81-99) 10/15/20 14:40 MCH 29.8 pg (27.0-32.0) 10/15/20 14:40 MCHC 32.1 g/dL (32-36) 10/15/20 14:40 RDW Std Deviation 51.4 fl (35.1-43.9) H 10/15/20 14:40 RDW Coeff of Doretha 14.9 % (11.6-14.6) H 10/15/20 14:40 Plt Count 284 K/mm3 (150-450) 10/15/20 14:40 MPV 9.4 fl (6.2-12.0) 10/15/20 14:40 Immature Gran % (Auto) 0.700 % (0.0-0.9) 10/15/20 14:40 Neut % (Auto) 76.8 % (47-70) H 10/15/20 14:40 Lymph % (Auto) 16.0 % (19-41) L 10/15/20 14:40 Falls % (Auto) 5.4 % (0-10) 10/15/20 14:40 Eos % (Auto) 0.7 % (0-5) 10/15/20 14:40 Baso % (Auto) 0.4 % (0-1) 10/15/20 14:40 Absolute Neuts (auto) 10.3 X10^3/uL (2.0-7.7) H 10/15/20 14:40 Absolute Lymphs (auto) 2.15 X10^3/uL (0.83-4.51) 10/15/20 14:40 Nucleated RBC % 0 % (0-5) 10/15/20 14:40 Sodium 136 mmol/L (136-145) 10/15/20 14:40 Potassium 4.2 mmol/L (3.5-5.1) 10/15/20 14:40 Chloride 103 mmol/L (98-107) 10/15/20 14:40 Carbon Dioxide 30.0 mmol/L (21.0-32.0) 10/15/20 14:40 Anion Gap 3 (5-15) L 10/15/20 14:40 BUN 18 mg/dL (7-18) 10/15/20 14:40 Creatinine 1.02 mg/dL (0.55-1.02) 10/15/20 14:40 Estim Creat Clear Calc 41.24 ml/min 10/15/20 14:40 Est GFR (MDRD) Af Amer 69 mL/min (>60) 10/15/20 14:40 Est GFR (MDRD) Non-Af 57 mL/min (>60) L 10/15/20 14:40 BUN/Creatinine Ratio 17.6 RATIO (10-20) 10/15/20 14:40 Glucose 131 mg/dL (74-106) H 10/15/20 14:40 Calcium 9.5 mg/dL (8.5-10.1) 10/15/20 14:40 Troponin I < 0.015 ng/mL (<0.045) 10/15/20 14:40 - EKG Initial EKG Interpretation: Sinus Rhythm - EKG demonstrates a normal sinus rhythm with sinus arrhythmia at a rate of 71. No concerning features of ACS or ectopy. No evidence of right heart strain. - Medical Decision Making Patient found to have bilateral pulmonary embolisms. Patient's heart rate is 70 respirations are around 14 and she is 98% on room air. With exertion she does get more dyspneic but she states that is not that uncommon for her given her COPD. She would like to go home given no evidence of right heart strain or abnormal vital signs I think this is reasonable cleared and will place her on Eliquis. She is 70 years old with normal creatinine. I will update her surgeon. Return if worsening or concerns. Discussion was held at the bedside with her son and both the patient and him had all questions answered to their satisfaction. After the long discussion the patient's family on the phone wish to ask more questions and wanted to know why she was not a stroke alert because of the blood clot. They feel that the patient should be admitted. I explained that she has a pulmonary embolism that she will be placed on Eliquis and we had social work visit with her in terms of her home care. But ultimately the patient herself who is ANO x3 and has the capacity to make her decision does not wish to stay in the hospital. At the current time she would qualify basically for observational stay and I am not sure there is going to be anything differently done on an inpatient side as at home. Family on the phone is not comfortable with this patient is asking to be discharged. Therefore the patient will be discharged home. ED Disposition - Plan for ED Patient: Disposition: Home or Assisted Living Diagnosis: Chest pain, Pulmonary embolism Instructions: Pulmonary Embolism Prescriptions: Apixaban [Eliquis] 5 mg PO BID #74 tab Prescription Printed Hydrocodone Bitart/Apap 5-325 [[place] 5MG-325MG] 1 tab PO Q6H PRN PRN 3 Days #12 tab PRN Reason: Pain Prescription Printed Referrals: Heladio Edwards MD [Primary Care Provider] - As soon as possible
[2020-10-15 14:56] LABS: Absolute Lymphocyte Count 2.15 X10^3/uL (0.83-4.51); Absolute Neutrophil Count 10.3 X10^3/uL (2.0-7.7); Basophil# 0.06 X10^3/uL; Basophil% 0.4 % (0-1); Eosinophil# 0.09 X10^3/uL; Eosinophils% 0.7 % (0-5); Hematocrit 44.5 % (37-47); Hemoglobin 14.3 g/dL (12.0-15.0); Lymphocyte # 2.15 X10^3/ul (4.0); Mean Corp Hgb Conc 32.1 g/dL (32-36); Mean Corpuscular Hgb 29.8 pg (27.0-32.0); Mean Corpuscular Volume 92.7 fL (81-99); Mean Platelet Vol. 9.4 fl (6.2-12.0); Monocyte# 0.72 X10^3/uL; Monocyte% 5.4 % (0-10); NRBC Flagged by Analyzer 0 % (0-5); Neutrophil # 10.32 X10^3/uL (2.7-7.7); Neutrophil % 76.8 % (47-70); Platelet Count 284 K/mm3 (150-450); RBC Distribution Width CV 14.9 % (11.6-14.6); RBC Distribution Width SD 51.4 fl (35.1-43.9); White Blood Count 13.4 K/mm3 (4.4-11.0)
[2020-10-15 15:10] LABS: Anion Gap 3 (5-15); BUN 18 mg/dL (7-18); BUN/Creat Ratio 17.6 RATIO (10-20); Calcium,Total 9.5 mg/dL (8.5-10.1); Chloride 103 mmol/L (98-107); Creatinine, Serum 1.02 mg/dL (0.55-1.02); EST Glomerular Filtration Rate 57 mL/min (>60); Est Glom Filt Rate - Afr Amer 69 mL/min (>60); Estimated Creatinine Clearance 41.24 ml/min; Glucose 131 mg/dL (74-106); Potassium 4.2 mmol/L (3.5-5.1); Sodium Level 136 mmol/L (136-145)
--- NOTE | 2020-10-15 15:13 | CT_ITS ---
EXAM: CT ANGIOGRAPHY CHEST WITHOUT AND WITH INTRAVENOUS CONTRAST CLINICAL INDICATION: CP, ELEVATED D-DIMER, TECHNIQUE: Helically acquired angiography images were obtained of the chest without and with intravenous contrast. This CT exam was performed using one or more of the following dose reduction techniques: automated exposure control, adjustment of the mA and/or kV according to patient size, and/or use of iterative reconstruction technique. This report was created using [employer] report generation technology. MIP reconstructed images were created and reviewed. CONTRAST: IV 100mL Isovue-370 COMPARISON: None. FINDINGS: PULMONARY ARTERIES: Multiple segmental pulmonary arterial filling defects identified in the left upper lobe, left lower lobe and right lower lobe. No saddle embolus. Normal in caliber. AORTA: There is atherosclerosis of the thoracic aorta. Moderate stenosis of the left subclavian artery origin. Normal in caliber. No evidence of dissection. GREAT VESSELS OF AORTIC ARCH: See above. LUNGS AND PLEURAL SPACES: There are a few scattered nodules in the left upper lobe and right lower lobe best seen on image 172 of series 2 measuring 5 mm and in the left upper lobe on image 168, the latter demonstrating adjacent bronchi or cavitation. Centrilobular emphysema with scattered fibrotic changes. No pleural effusion or thickening. No pneumothorax. HEART: Unremarkable. Heart size is normal. No pericardial effusion. No signs of right heart strain. MEDIASTINUM: Unremarkable. No mediastinal or hilar adenopathy. Esophagus is unremarkable. No hiatal hernia. THYROID: Unremarkable. No thyroid lesions. BONES/JOINTS: Unremarkable. No suspicious lytic or blastic abnormality. CT/CTA Chest W/WO Contrast IMPRESSION: 1. Left more than right pulmonary embolism. No saddle embolus or CT evidence of right heart strain. 2. A few (at least 3) small (4-5 mm) pulmonary nodules, new since 2016. Nodules are below size limitations of PET scan and biopsy. Fleischner Society Guidelines for low-risk patients, no follow-up is necessary. For high-risk patients (smoking history or other known risk factors) an optional chest CT at 12 months could be performed. Electronically Signed: Christian Torre MD ([place]oks) at 15:51 EST , Service support ,
--- NOTE | 2020-10-15 15:35 | CASEMGMT ---
Addendum entered by Ayanna Linn 10/17/20 12:33: SW called [facility], they do take pt's insurance and can take pt. SW called Dr. Davies's office, as per both Tea and Zonia(spoke w/both of them on two separate calls), Dr. Davies is agreeable to home health for pt. Order placed, SW called home health, let Gayle know order was placed and also let her know to follow up w/Dr. Davies's office tomorrow as pt's PT needs may change based on pt's appt tomorrow. SW called pt to let her know home health was ordered, pt states understanding and in agreement. SW called pt's spring encaser Gayle Vega w/[employer] to let her know home health was set up. No further needs. MONIQUE Granado Original Note: SW received a call from ED, pt just had knee surgery and having some difficulty at home. SW met w/pt in room, pt's son Buzz present. Pt had surgery w/Dr. Davies on 10/05/20 and cannot bear weight on her knee. She has been getting around the house in a wheelchair. Pt also has a walker, recliner, bedside commode and shower chair at home. Pt states she thinks she cracked a rib adjusting the bedside commode. Pt lives home alone, she states family has been calling in to check on her several times per day. Though she has [employer] and home delivered meals through [employer](Gayle Vega is her spring encaser), Gayle has not been able to find any aides for pt. We discussed options from here. Pt does not want to go anywhere for rehab, she is very adamant about this. She states she also smokes, and she just wants to be home. Pt would be open to a referral for home health for aide services and therapy. SW did explain that this is not going to offer a lot of help, insurance usually covers about one hour per week of personal assist. Son thought this could be beneficial for pt, pt also in agreement. SW explained can follow up w/Dr. Davies on Saturday to see if she will make the referral. Pt has an appt w/Dr. Davies on Saturday as well. SW explained will call and see if she wants to make the referral, or wait until pt comes to see her in the office. Pt and son open to looking at a private hire aide list to see if they would be able to find anyone from the list who could help at home. Pt asked if [facility] would cover this, SW explained she would need to check w/Gayle Vega as far as what providers are covered by her insurance. SW explained some providers would not be covered by her insurance for ongoing [employer] services, [facility] being one, but she may be able to hire aides a couple hours per day private pay. SW explained will tube the list to the RN in ED and will follow up w/Dr. Davies on Saturday. Plan: Pt to still return home if not being admitted. VANESA will follow up Saturday regarding potential home health referral. MONIQUE Granado
[2020-10-15] MEDS: Ketorolac 15 MG/ML Vial IV (16:28)
[2020-10-15 16:33] VITALS: BP 143/82; PULSE 71; RESP 16; O2SAT 98
[2020-10-15 16:53] VITALS: BP 143/68; PULSE 66; RESP 17; O2SAT 97
[2020-10-15] MEDS: APIXABAN 5 MG TABLET 10 MG PO (16:58)
== END 2020-10-15 17:15 | disposition home or self-care (01) ==
PROVIDERS: Emergency Provider Emergency Medicine; PCP Family Medicine
DX: I26.99 Other pulmonary embolism without acute cor pulmonale (principal); E11.9 Type 2 diabetes mellitus without complications; J44.9 Chronic obstructive pulmonary disease, unspecified; F17.200 Nicotine dependence, unspecified, uncomplicated; E66.9 Obesity, unspecified; Z68.32 Body mass index [BMI] 32.0-32.9, adult; Z79.84 Long term (current) use of oral hypoglycemic drugs; Z79.899 Other long term (current) drug therapy
CPT/HCPCS: 71275; 80048; 84484; 85025; 93005; 96374; 99285; Q9967; A4216

== ENCOUNTER 2020-10-16 00:17 | Observation (INO) | payer MEDICARE, MEDICAID, SELFPAY ==
[2020-10-15 14:31] VITALS: BMI 32.8
[2020-10-16] VITALS (9 sets, daily range): BP systolic 137–152; BP diastolic 49–68; PULSE 60–76; RESP 12–22; TEMP 35.9–37.2; O2SAT 91–97; BMI 33.2; BMI 31.8; BMI 31.9
--- NOTE | 2020-10-16 00:28 | EKG12_ITS ---
Test Reason : CP Blood Pressure : / mmHG Vent. Rate : 071 BPM Atrial Rate : 071 BPM P-R Int : 202 ms QRS Dur : 086 ms QT Int : 382 ms P-R-T Axes : 070 055 068 degrees QTc Int : 415 ms Normal sinus rhythm with sinus arrhythmia Nonspecific T wave abnormality Abnormal ECG Confirmed by NEIDA RUSHING, BREE ([id number]), supervising editor news reel AYANNA LORENZO ([id number]) on 10/18/2020 11:25:54 AM Referred By: GILBERTO/EUNICE Confirmed By:BREE CARRASQUILLO MD
--- NOTE | 2020-10-16 00:31 | ED.DCSUM_ITS ---
History of Present Illness Chief Complaint: Chest Pain Informant: Patient Onset: Yesterday Timing: Waxes and wanes Current Severity: Mild Maximum Severity: Moderate Narrative: Patient present secondary to chest pain and worsening shortness of breath. Patient was seen in the emergency room yesterday afternoon and diagnosed with bilateral PEs. Vital signs were stable and she wanted to go home so she was discharged on Eliquis. Patient states after getting home she developed worsened chest pain across her chest and her shortness of breath slightly worsened. She has a chronic cough with COPD that is unchanged from baseline. No bloody sputum. - Past Medical History (1) Diabetes Status: Chronic (2) Coronary artery disease Status: Chronic (3) Pulmonary emboli Status: Chronic (4) History of type 2 diabetes mellitus Status: Chronic Past Medical History - Allergies and Home Meds Allergies/Adverse Reactions: Allergies bupropion HCl [From Wellbutrin] Allergy (Verified 10/15/20 14:31) Hives gabapentin [From Neurontin] Allergy (Verified 10/15/20 14:31) Other moxifloxacin HCl [From Avelox] Allergy (Verified 10/15/20 14:31) Hives Primary Care Physician: Heladio Edwards MD [Primary Care Provider] - Prior records reviewed: Yes Surgical History: noncontributory Smoking Status: Former smoker - Family History Maternal Family History: Reports: No pertinent history Paternal Family History: Reports: Diabetes, Heart Disease Sibling Family History: Reports: Heart Disease Review of Systems General: Denies: Chills, Fever Eyes: Denies: Visual changes - bilaterally ENT: Denies: Bilateral ear pain Cardiovascular: Reports: Chest pain. Denies: Palpitations, Heart racing Respiratory: Reports: Dyspnea, Cough. Denies: Sputum Gastrointestinal: Denies: Abdominal pain, Nausea, Vomiting, Diarrhea Genitourinary: Denies: Dysuria Musculoskeletal: Reports: Extremity Pain - Postop knee pain Neurological: Denies: Headache, Weakness, Parasthesia Hematologic: Denies: Easy bruising, Easy bleeding Allergy: Denies: Uticaria Physical Exam Vital Signs/Narrative: Vital Signs Temp Pulse Resp BP Pulse Ox 10/16/20 00:18 96.6 F L 76 22 H 152/61 H 96 Inital Vital Signs reviewed: Yes General: Well nourished, Well developed Head: Normocephalic ENT: Moist mucous membranes Neck: Supple Cardiovascular: Regular rate, Regular rhythm Respiratory: No distress, CTA bilaterally Abdomen: Soft, Nontender Skin: - - Left knee bandages in place. No significant erythema, excessive warmth, edema. Neurological: Alert, Oriented x3 Psychological: Normal affect Diagnostic/Tx/Re-eval Chest X-Ray - ED: 1 View, Read by ED Physician, Normal, Heart, Lungs, Mediastinum Impressions Chest X-Ray 10/16/20 00:55 IMPRESSION: No acute cardiopulmonary disease. at 0139 Reported and signed by: Glynn Baez MD Electronically Signed: Glynn Baez MD at 1:38 EST Tel , Service support , 10/16/20 00:55 Chest 1 View (Portable) [RAD] Stat Laboratory Results 10/16/20 10/16/20 00:25 00:25 WBC 12.5 H RBC 4.58 Hgb 13.6 Hct 42.5 MCV 92.8 MCH 29.7 MCHC 32.0 RDW Std Deviation 51.2 H RDW Coeff of Doretha 15.0 H Plt Count 287 MPV 9.8 Immature Gran % (Auto) 0.600 Neut % (Auto) 70.2 H Lymph % (Auto) 19.2 [place] % (Auto) 8.1 Eos % (Auto) 1.5 Baso % (Auto) 0.4 Absolute Neuts (auto) 8.8 H Absolute Lymphs (auto) 2.40 Nucleated RBC % 0 Sodium 138 Potassium 4.3 Chloride 105 Carbon Dioxide 28.0 Anion Gap 5 BUN 31 H Creatinine 0.95 Estim Creat Clear Calc 44.28 Est GFR (MDRD) Af Amer 74 Est GFR (MDRD) Non-Af 62 BUN/Creatinine Ratio 32.7 H Glucose 136 H Calcium 9.2 Troponin I < 0.015 - EKG Initial EKG Interpretation: Sinus Rhythm - Sinus at 72 with no acute ischemia. - Medical Decision Making Patient was observed on school bus monitor throughout her ED stay. She was just diagnosed with bilateral PEs less than 12 hours ago and after going home had worsened chest pain and shortness of breath. She also has underlying cardiac disease and reports having a blockage of 60 to 65% that they are watching. In light of this I do feel it would be worthwhile to observe patient overnight for cycling of enzymes and monitoring of her vital signs. She already received a dose of Eliquis at 5 PM last evening. I will speak with hospitalist for observation. ED Disposition - Plan for ED Patient: Disposition: Acute Care [facility] Diagnosis: Chest pain, Bilateral pulmonary embolism Referrals: Heladio Edwards MD [Primary Care Provider] -
[2020-10-16 00:34] LABS: Absolute Neutrophil Count 8.8 X10^3/uL (2.0-7.7); Basophil# 0.05 X10^3/uL; Basophil% 0.4 % (0-1); Eosinophil# 0.19 X10^3/uL; Eosinophils% 1.5 % (0-5); Hematocrit 42.5 % (37-47); Hemoglobin 13.6 g/dL (12.0-15.0); Lymphocyte % 19.2 % (19-41); Mean Corpuscular Hgb 29.7 pg (27.0-32.0); Mean Corpuscular Volume 92.8 fL (81-99); Mean Platelet Vol. 9.8 fl (6.2-12.0); Monocyte# 1.01 X10^3/uL; Monocyte% 8.1 % (0-10); NRBC Flagged by Analyzer 0 % (0-5); Neutrophil # 8.77 X10^3/uL (2.7-7.7); Neutrophil % 70.2 % (47-70); Platelet Count 287 K/mm3 (150-450); RBC Distribution Width SD 51.2 fl (35.1-43.9); Red Blood Count 4.58 M/mm3 (4.2-5.4); White Blood Count 12.5 K/mm3 (4.4-11.0)
[2020-10-16 00:52] LABS: Anion Gap 5 (5-15); BUN 31 mg/dL (7-18); BUN/Creat Ratio 32.7 RATIO (10-20); Calcium,Total 9.2 mg/dL (8.5-10.1); Chloride 105 mmol/L (98-107); Creatinine, Serum 0.95 mg/dL (0.55-1.02); EST Glomerular Filtration Rate 62 mL/min (>60); Est Glom Filt Rate - Afr Amer 74 mL/min (>60); Estimated Creatinine Clearance 44.28 ml/min; Glucose 136 mg/dL (74-106); Potassium 4.3 mmol/L (3.5-5.1); Sodium Level 138 mmol/L (136-145)
--- NOTE | 2020-10-16 00:55 | RAD_ITS ---
HISTORY: Chest pain. Shortness of breath. Chest pressure. Diagnosed with PE earlier today given Xarelto. Comparison study is March 01, 2020. Comparison CTA of the chest is from about 9 hours earlier Findings: Single view the chest was obtained. Mild cardiomegaly. Atherosclerotic change in aorta. Lungs are clear. No pleural fluid or pneumothorax. Degenerative change in spine. RAD/Chest 1 View (Portable) IMPRESSION: No acute cardiopulmonary disease. at 0139 Reported and signed by: Glynn Baez MD Electronically Signed: Glynn Baez MD at 1:38 EST Tel , Service support ,
--- NOTE | 2020-10-16 02:43 | PCM.HP.STD ---
Problem List (1) History of type 2 diabetes mellitus Status: Chronic (2) Diabetes Status: Chronic (3) Coronary artery disease Status: Chronic (4) Pulmonary emboli Status: Acute (5) Chest pain Status: Acute (6) Bilateral pulmonary embolism Status: Acute (7) Tobacco abuse Status: Chronic (8) Lung cancer Status: Resolved (9) Sleep apnea Status: Chronic (10) COPD exacerbation Status: Chronic History of Present Illness Date of Admission: 10/16/20 Chief Complaint: Chest pain The patient is a 70 year old F with a significant history of small cell lung cancer status post right lobectomy; tobacco abuse; CAD; obstructive sleep apnea on home BiPAP with oxygen bled in; COPD; diabetes mellitus and hypertension who presents to the emergency department the second time in 24 hours with chest pain. On the first time she was diagnosed with bilateral pulmonary embolism and was sent home on [place] and [place]. She was instructed that if her pain re-occurred she should come to the emergency department. On her first visit her pain was 9 out of 10 in intensity. Because of pain she came back to emergency department the second time. With recurrence her pain was 4 out of 10. Her pain was substernal and heavy in quality. She denies any aggravating or ameliorating factors to the pain. The pain was nonradiating. At the time of my examination she had no more pain. She has some mild shortness of breath Of note patient had a left knee arthroscopic surgery with cement on 10/05/2020. Past Medical History Past Medical History (Chronic Problems): Chronic Problems History of type 2 diabetes mellitus (Chronic) Diabetes (Chronic) Coronary artery disease (Chronic) Tobacco abuse (Chronic) Sleep apnea (Chronic) COPD exacerbation (Chronic) Allergies bupropion HCl [From Wellbutrin] Allergy (Verified 10/15/20 14:31) Hives gabapentin [From Neurontin] Allergy (Verified 10/15/20 14:31) Other moxifloxacin HCl [From Avelox] Allergy (Verified 10/15/20 14:31) Hives Home Medications: Ambulatory Orders Medication Instructions Recorded Pramipexole Di-HCl [Pramipexole 1.5 mg PO QHS 06/12/14 Dihydrochloride] traZODone [Desyrel] 100 mg PO QHS 06/12/14 Ropinirole HCl [Requip] 2 mg PO QHS 10/20/15 Amlodipine [Norvasc] 5 mg PO DAILY #30 tab 05/31/16 Albuterol Aerosols [Ventolin 1 inhaler INHALATION Q4H PRN 07/01/16 Aerosols] Atorvastatin Calcium [Lipitor] 20 mg PO QHS 07/01/16 Metformin HCl 500 mg PO DAILY 08/25/20 umeclidinium 62.5 mcg/actuation 1 puff INHALATION DAILY 08/29/20 blister powder for inhalation Apixaban [Eliquis] 5 mg PO BID #74 tab 10/15/20 Fluticasone/Vilanterol [Breo 1 puff INHALATION DAILY 10/15/20 Ellipta 100-25 Mcg INH] Hydrocodone Bitart/Apap 5-325 1 tab PO Q6H PRN PRN 3 Days #12 tab 10/15/20 [[place] 5MG-325MG] Surgical History: hysterectomy, - - Right and left knee surgeries; lobectomy of the right lung for small cell cancer Psychiatric History: No pertinent psych hx Smoking Status: Current every day smoker Tobacco Use: Cigarettes - *Family History Maternal History Items: Heart Disease Paternal History Items: Diabetes, Heart Disease Sibling History Items: Heart Disease Review of Systems Constitutional: Denies: Chills, Fever, Weight Change HEENT: Denies: Head Aches, Sinus Congestion, Sinus Drainage Cardiovascular: Reports: Chest Pain. Denies: Palpitations Respiratory: Reports: Shortness of Breath. Denies: Cough, Sputum production Gastrointestinal: Denies: Abdominal Pain, Nausea, Vomiting Genitourinary: Denies: Dysuria Musculoskeletal: Denies: Joint Pain, Joint Tenderness Skin: Denies: Rash, Wounds Neurological: Denies: Numbness, Tingling, Focal weakness Psychiatric: Denies: Anxiety, Depression, Homicidal Ideations, Suicidal Ideations Hematologic/ Lymphatic: Denies: Easy Bruising, Easy Bleeding VTE Information - Inpt Only VTE Present on Admission: Yes VTE Mechan Device Prophylaxis: None VTE Pharm Prophylaxis ordered?: No Reason prophylaxis not ordered:: Treatment Not Indicated Patient Problems: Active and Suspected Problems Pulmonary emboli (Acute) Chest pain (Acute) Bilateral pulmonary embolism (Acute) - Physical Exam Vitals/I&O's: Vital Signs Temp Pulse Resp BP Pulse Ox 96.6 F L 69 15 152/61 H 91 10/16/20 00:18 10/16/20 01:48 10/16/20 01:48 10/16/20 00:18 10/16/20 01:48 Oxygen Delivery Method Room Air Weight: 85.1 kg Body Mass Index (BMI) 33.2 General: Alert, Oriented x3, Cooperative HEENT: Atraumatic, PERRLA, EOMI, Normocephalic Neck: Supple, No JVD, Negative Carotid Bruits Lungs: Clear to auscultation, Normal air movement Cardiovascular: Regular rate, Normal S1, Normal S2, No murmurs Abdomen: Bowel Sounds Present, Soft, Non Tender Extremities: No edema, Capillary Refill Less than 3 Seconds Skin: No rashes, No breakdown Musculoskeletal: No Tenderness to Palpation of Joints or Extremities Neurological: Cranial nerves II-XII grossly intact Psych/Mental Status: Normal Affect, Appropriate Laboratory Results 10/16/20 00:25: WBC 12.5 H, RBC 4.58, Hgb 13.6, Hct 42.5, MCV 92.8, MCH 29.7, MCHC 32.0, RDW Std Deviation 51.2 H, RDW Coeff of Doretha 15.0 H, Plt Count 287, MPV 9.8, Immature Gran % (Auto) 0.600, Neut % (Auto) 70.2 H, Lymph % (Auto) 19.2, [place] % (Auto) 8.1, Eos % (Auto) 1.5, Baso % (Auto) 0.4, Absolute Neuts (auto) 8.8 H, Absolute Lymphs (auto) 2.40, Nucleated RBC % 0 10/16/20 00:25: Sodium 138, Potassium 4.3, Chloride 105, Carbon Dioxide 28.0, Anion Gap 5, BUN 31 H, Creatinine 0.95, Estim Creat Clear Calc 44.28, Est GFR (MDRD) Af Amer 74, Est GFR (MDRD) Non-Af 62, BUN/Creatinine Ratio 32.7 H, Glucose 136 H, Calcium 9.2, Troponin I < 0.015 Assessment/Plan All Active Problems Pulmonary emboli (Acute) Chest pain (Acute) Bilateral pulmonary embolism (Acute) Lung cancer (Resolved) The patient is a 70 year old F with a significant history of small cell lung cancer status post right lobectomy;CAD; tobacco abuse; obstructive sleep apnea on home BiPAP with oxygen bled in; COPD diabetes mellitus and hypertension who presents to the emergency department the second time in 24 hours with chest pain and with a diagnosis of bilateral pulmonary embolism. Bilateral Pulmonary embolism Pulmonary embolism causing chest pain. CTA on 10/15/2020 showed left more than right pulmonary embolism. No saddle embolus on CT evidence of right strain. A few (at least 3) small (4 to 5 mm) pulmonary notes new since 2016. EKG showed flattening of T waves in V3. T wave inversions in V1 and V2. Review of old records show that this pattern is changed. Continue Eliquis. Continue [place] as needed. Antiemetics and bowel protocol in place. Patient reports history of CAD with a 60 to 65% occlusion of some vessel. We will trend troponin to rule out any acute coronary syndrome. Observe on telemetry at the progressive care unit. Pulmonary nodules Patient to follow-up longitudinally. Tobacco abuse Smoked 2 packs of cigarettes per day Counseled Nicotine patch ordered. COPD Stable ALS continued Hypertension Blood pressure is not within goal Amlodipine continued. Trend blood pressure and adjust blood pressure medications. Diabetes mellitus Patient with hyperglycemia on presentation Metformin held Accu-Chek QA [facility] with correction scale insulin ordered. DVT prophylaxis: Not indicated since patient is being treated for Eliquis for acute PE. OBSV E&M: [id number] Initial observation care L2
[2020-10-16] MEDS: HYDROcodone Bitartrate/Apap 5/325 Tablet PO (04:48)
[2020-10-16] MEDS: Budesonide Respules 0.5 MG/2 ML AMPUL.NEB. INHALATION (06:57)
[2020-10-16] MEDS: Ipratropium/Albuterol Sulfate 3 ML AMPUL.NEB INHALATION (06:57)
[2020-10-16] MEDS: metFORMIN HCl 500 MG Tablet PO (07:51)
[2020-10-16] MEDS: amLODIPine 5 MG Tablet PO (09:13)
[2020-10-16] MEDS: APIXABAN 5 MG TABLET PO (09:13)
--- NOTE | 2020-10-16 11:00 | DCINST_ITS ---
- Discharge Diagnoses Current Active Problems: Current Active and Chronic Problems History of type 2 diabetes mellitus (Chronic) Diabetes (Chronic) Coronary artery disease (Chronic) Pulmonary emboli (Acute) Chest pain (Acute) Bilateral pulmonary embolism (Acute) Tobacco abuse (Chronic) Sleep apnea (Chronic) COPD exacerbation (Chronic) You will use the following diet at home:: No restrictions Your food should be the consistency of: Regular Discharge Activity: Return to Normal Activity, Use Crutches Weight Bearing Status: No weight bearing Keep extremity elevated above heart level: Left Leg - until seen by Dr. Vito westbrook Call your doctor if you observe: Shortness of breath, Chest pain Allergies/Adverse Reactions: Allergies bupropion HCl [From Wellbutrin] Allergy (Verified 10/15/20 14:31) Hives gabapentin [From Neurontin] Allergy (Verified 10/15/20 14:31) Other moxifloxacin HCl [From Avelox] Allergy (Verified 10/15/20 14:31) Hives Medications to take at Discharge Pramipexole Di-HCl [Pramipexole Dihydrochloride] 1.5 mg PO QHS 06/12/14 traZODone [Desyrel] 100 mg PO QHS 06/12/14 Ropinirole HCl [Requip] 2 mg PO QHS 10/20/15 Amlodipine [Norvasc] 5 mg PO DAILY #30 tab 05/31/16 Albuterol Aerosols [Ventolin Aerosols] 1 inhaler INHALATION Q4H PRN 07/01/16 Atorvastatin Calcium [Lipitor] 20 mg PO QHS 07/01/16 Metformin HCl 500 mg PO DAILY 08/25/20 umeclidinium 62.5 mcg/actuation blister powder for inhalation 1 puff INHALATION DAILY 08/29/20 Apixaban [Eliquis] 5 mg PO BID #74 tab 10/15/20 Fluticasone/Vilanterol [Breo Ellipta 100-25 Mcg INH] 1 puff INHALATION DAILY 10/15/20 Hydrocodone Bitart/Apap 5-325 [[place] 5/325] 1 tab PO Q6H PRN PRN 3 Days #12 tab 10/15/20 Primary Care Physician: Heladio Edwards MD [Primary Care Provider] - Within 2 Weeks Test Results: Test results from this visit will be discussed in further detail at your follow- up appointment, if applicable. Please Follow Up With: Yaquelin Davies DO When: , already scheduled Proposed Discharge Date: 10/16/20
--- NOTE | 2020-10-16 11:02 | DS.PCM_ITS ---
Discharge Date and Diagnosis - Problem List Patient Problems: Active and Suspected Problems Pulmonary emboli (Acute) Chest pain (Acute) Bilateral pulmonary embolism (Acute) Date of Admission: 10/16/20 Date of Discharge: 10/16/20 - Primary Discharge Diagnosis Acute Problems: Active Problems Pulmonary emboli (Acute) Chest pain (Acute) Bilateral pulmonary embolism (Acute) - Secondary Discharge Diagnosis Chronic Problems: Chronic Problems History of type 2 diabetes mellitus (Chronic) Diabetes (Chronic) Coronary artery disease (Chronic) Tobacco abuse (Chronic) Sleep apnea (Chronic) COPD exacerbation (Chronic) Hospital Course and Treatment Imaging Results: 10/16/20 07:57 Echo Complete [ECHO] Routine Operations: None Procedures: None Summary of Care Provided: The patient is a 70 year old F presented on the with a left-sided chest pain. Patient was having a dull ache. Patient was evaluated and had found to have had bilateral pulmonary emboli left more so on the right. Patient was ordered apixaban and given her stable hemodynamic status, patient was discharged home. Patient came back because she was having chest pain. Patient was brought in and observed. Troponin series were unremarkable, EKG was unremarkable. Patient has been on room air and hemodynamically stable. Discussed with the patient that she would need to continue with apixaban for a total of 6 months. I informed her that this was a provoked clot related with her recent surgery on her knee and her limited mobility. Since the surgery and the fact that she is nonweightbearing left lower extremity, patient is unable to use the crutches and so she has been using a wheelchair and just pivots for transfer but for the most part has been either chair or bed bound. Patient will be following up with orthopedics on Saturday and at that time will determine if her activity can be increased. I did give the patient the option to stay here to be evaluated by therapy to look into half-way or rehab. Patient is not interested at this time and prefers to go home. [] Patient Problems: Active and Suspected Problems Pulmonary emboli (Acute) Chest pain (Acute) Bilateral pulmonary embolism (Acute) - Physical Exam Vitals/I&O's: Vital Signs Temp Pulse Resp BP Pulse Ox 37.2 C 62 16 137/49 H 96 10/16/20 09:05 10/16/20 09:05 10/16/20 09:05 10/16/20 09:05 10/16/20 09:05 Oxygen Delivery Method Room Air Weight: 81.601 kg Body Mass Index (BMI) 31.8 Intake and Output for Last 24 Hours 10/14/20 10/15/20 10/16/20 23:59 23:59 23:59 Intake Total 120 / 120 Balance 120 / 120 General: Alert, No apparent distress HEENT: Atraumatic, Normocephalic Oral: Moist Mucosa, No Gingival or Mucosal Lesions/ Ulcerations Neck: No Nodes, Thyroid Normal Size and Texture Lungs: Clear to auscultation, Normal air movement, No rhonchi, No wheeze, No rales Cardiovascular: Regular rate, Regular Rhythm, Normal S1, Normal S2, No murmurs Extremities: No Calf Tenderness, Edema Laboratory Results 10/16/20 00:25: WBC 12.5 H, RBC 4.58, Hgb 13.6, Hct 42.5, MCV 92.8, MCH 29.7, MCHC 32.0, RDW Std Deviation 51.2 H, RDW Coeff of Doretha 15.0 H, Plt Count 287, MPV 9.8, Immature Gran % (Auto) 0.600, Neut % (Auto) 70.2 H, Lymph % (Auto) 19.2, [place] % (Auto) 8.1, Eos % (Auto) 1.5, Baso % (Auto) 0.4, Absolute Neuts (auto) 8.8 H, Absolute Lymphs (auto) 2.40, Nucleated RBC % 0 10/16/20 00:25: Sodium 138, Potassium 4.3, Chloride 105, Carbon Dioxide 28.0, Anion Gap 5, BUN 31 H, Creatinine 0.95, Estim Creat Clear Calc 44.28, Est GFR (MDRD) Af Amer 74, Est GFR (MDRD) Non-Af 62, BUN/Creatinine Ratio 32.7 H, Glucose 136 H, Calcium 9.2, Troponin I < 0.015 10/16/20 03:46: Troponin I < 0.015 10/16/20 06:24: Troponin I < 0.015 Current Medications Acetaminophen (Acetaminophen 325 Mg Tablet) 650 mg PO Q6H PRN PRN PRN Reason: Pain Score 1-10/Temp > 100.7 F Hydrocodone Bitart/Acetaminophen (Hydrocodone Bitartrate/Apap 5/325 Tablet) 1 tablet PO Q6H PRN PRN PRN Reason: Pain Score 1-10 Last Admin: 10/16/20 04:48 Dose: 1 tablet Documented by: Albuterol Sulfate (Albuterol 2.5 Mg/3 Ml Vial.Neb.) 2.5 mg INHALATION Q2H PRN PRN PRN Reason: SOB/WHEEZING Albuterol/Ipratropium (Ipratropium/Albuterol Sulfate 3 Ml Ampul.Neb) 3 ml INHALATION Q6HWA.RT [facility] Last Admin: 10/16/20 06:57 Dose: 3 ml Documented by: Amlodipine Besylate (Amlodipine 5 Mg Tablet) 5 mg PO DAILY [facility] Last Admin: 10/16/20 09:13 Dose: 5 mg Documented by: Apixaban (Apixaban 5 Mg Tablet) 5 mg PO BID [facility] Last Admin: 10/16/20 09:13 Dose: 5 mg Documented by: Atorvastatin Calcium (Atorvastatin Calcium 20 Mg Tablet) 20 mg PO QHS [facility] Budesonide (Budesonide Respules 0.5 Mg/2 Ml Ampul.Neb.) 0.5 mg INHALATION Q12H.RT [facility] Last Admin: 10/16/20 06:57 Dose: 0.5 mg Documented by: Sodium Chloride () 250 mls @ 15 mls/hr IV .[id number] PRN PRN Reason: Saline Flush Sodium Chloride () 250 mls @ 15 mls/hr IV .[id number] PRN PRN Reason: Additional IVPB Infusion Melatonin (Melatonin 3 Mg Tablet) 3 mg PO QHS PRN PRN PRN Reason: INSOMNIA Metformin HCl (Metformin Hcl 500 Mg Tablet) 500 mg PO DAILYCM [facility] Last Admin: 10/16/20 07:51 Dose: 500 mg Documented by: Nicotine (Nicotine 21 Mg Patch) 21 mg TD DAILY [facility] Last Admin: 10/16/20 04:22 Dose: 21 mg Documented by: Ondansetron HCl (Ondansetron 4 Mg/2 Ml Vial) 4 mg IV Q8H PRN PRN PRN Reason: NAUSEA/VOMITING Pramipexole Dihydrochloride (Pramipexole Di-Hcl 0.5 Mg Tablet) 1.5 mg PO QHS [facility] Sodium Chloride (0.9% Saline Lock 10 Ml Syringe) 10 - 40 ml IV UD PRN PRN Reason: SALINE FLUSH Trazodone HCl (Trazodone 100 Mg Tablet) 100 mg PO QHS [place] Discharge Diet: No Restrictions Discharge Activity: Return to Normal Activity, Use Crutches Weight Bearing Status: No weight bearing Keep extremity elevated above heart level: Left Leg - until seen by Dr. Davies Call your doctor if you observe: Shortness of breath, Chest pain Home Medications: Medications to take at Discharge Pramipexole Di-HCl [Pramipexole Dihydrochloride] 1.5 mg PO QHS 06/12/14 traZODone [Desyrel] 100 mg PO QHS 06/12/14 Ropinirole HCl [Requip] 2 mg PO QHS 10/20/15 Amlodipine [Norvasc] 5 mg PO DAILY #30 tab 05/31/16 Albuterol Aerosols [Ventolin Aerosols] 1 inhaler INHALATION Q4H PRN 07/01/16 Atorvastatin Calcium [Lipitor] 20 mg PO QHS 07/01/16 Metformin HCl 500 mg PO DAILY 08/25/20 umeclidinium 62.5 mcg/actuation blister powder for inhalation 1 puff INHALATION DAILY 08/29/20 Apixaban [Eliquis] 5 mg PO BID #74 tab 10/15/20 Fluticasone/Vilanterol [Breo Ellipta 100-25 Mcg INH] 1 puff INHALATION DAILY 10/15/20 Hydrocodone Bitart/Apap 5-325 [[place] 5/325] 1 tab PO Q6H PRN PRN 3 Days #12 tab 10/15/20 Primary Care Physician: Heladio Edwards MD [Primary Care Provider] - Within 2 Weeks Please Follow Up With: Yaquelin Davies DO When: , already scheduled Disposition: Home Minutes spent on discharge:: 32 Patient Condition:: Good Medical Necessity - Tobacco Use Smoking Status: Current every day smoker Tobacco Use: Cigarettes Meaningful Use Info Meaningful Use Diagnoses (Choose all that apply): VTE - VTE Anticoag overlap given w/in hospital stay or rx'd at dc?: No Pt receive overlap for 5 days?: No Reason overlap not ordered, prescribed, or given for 5 days: Treatment Not Indicated OBSV E&M: 85211 Observation care discharge
== END 2020-10-16 11:01 | disposition home or self-care (01) ==
LOC: ED 02:01 → PCU 02:31
PROVIDERS: Admitting Provider Hospitalist; Emergency Provider Emergency Medicine; PCP Family Medicine
DX: I26.99 Other pulmonary embolism without acute cor pulmonale (principal); I25.10 Atherosclerotic heart disease of native coronary artery without angina pectoris; G47.33 Obstructive sleep apnea (adult) (pediatric); I10 Essential (primary) hypertension; C34.90 Malignant neoplasm of unspecified part of unspecified bronchus or lung; F17.210 Nicotine dependence, cigarettes, uncomplicated; J44.9 Chronic obstructive pulmonary disease, unspecified; E11.9 Type 2 diabetes mellitus without complications; Z79.899 Other long term (current) drug therapy; Z79.01 Long term (current) use of anticoagulants; Z79.84 Long term (current) use of oral hypoglycemic drugs
CPT/HCPCS: 71045; 80048; 84484; 85025; 93005; 94002; 94640; 99218; 99285; A4216; G0378

== ENCOUNTER 2020-12-12 21:20 | Emergency (ER) | payer MEDICARE, MEDICAID, SELFPAY ==
[2020-12-12 21:21] VITALS: BP 149/69; PULSE 76; RESP 24; TEMP 36.6; O2SAT 97; BMI 30.9
--- NOTE | 2020-12-12 21:32 | EKG12_ITS ---
Test Reason : CP Blood Pressure : / mmHG Vent. Rate : 069 BPM Atrial Rate : 069 BPM P-R Int : 206 ms QRS Dur : 090 ms QT Int : 412 ms P-R-T Axes : 029 051 057 degrees QTc Int : 441 ms Normal sinus rhythm Normal ECG Confirmed by GOSIA RUSHING, JOLLY ([id number]), slot editor JEFFREY DANIELS ([id number]) on 12/14/2020 10:13:29 AM Referred By: MARGARITO Confirmed By:JOLLY ELISE MD
--- NOTE | 2020-12-12 21:33 | CT_ITS ---
STUDY: CTA CHEST REASON FOR EXAM: Female, 70 years old. Hypoxia RADIATION DOSAGE (If Supplied By Facility): CTDIvol = ( 11.51 ) mGy, DLP = ( 454.53 ) mGycm TECHNIQUE: The examination was performed with the intravenous administration of 100mL Isovue-370. Post-processing of the angiographic images was performed, with multiplanar reformation and 3D reconstruction. Individualized dose optimization techniques were used for this CT. COMPARISON: October 15, 2020 FINDINGS: Normal enhancement of the main pulmonary artery and right and left pulmonary arteries. Normal enhancement of the bilateral peripheral pulmonary arteries. There is no demonstrated pulmonary embolism. There is atherosclerotic calcification of the aortic arch with tortuosity. There is no demonstrated aortic dissection. There are calcifications of the coronary arteries. Normal mediastinum. Normal hilar regions. Normal visualized trachea and bronchi. The lungs are well expanded. There is emphysema of the lungs. There are mild fibrotic densities. Normal pleura. Normal chest wall structures. There is demineralization of the osseous structures. Normal visualized upper abdomen. CT/CTA Chest W/WO Contrast IMPRESSION: CTA chest examination, without a demonstrated pulmonary embolism or arterial dissection. Emphysema. No focal infiltrate. Electronically Signed: Luigi Willams MD at 23:09 EDT , Service support ,
--- NOTE | 2020-12-12 21:34 | ED.DCSUM_ITS ---
History of Present Illness Chief Complaint: Shortness of Breath Informant: Patient Onset: Days Context: Gradual Onset Timing: Continuous Current Severity: Moderate Maximum Severity: Moderate Narrative: The patient is a 70-year-old female medical history significant for COPD on 2 L of oxygen at night, hypertension, nonobstructive coronary vascular disease, who presents to the emergency department shortness of breath. The patient had knee surgery done in September. She was diagnosed with pulmonary emboli after her knee surgery. The patient has been on Eliquis and has been compliant with her therapy. She states that over the past 4 days, she has had intermittent left- sided chest heaviness, shortness of breath, and feeling like she cannot catch her breath. She denies any cough. She denies any fevers or chills. She states that she did have outpatient ultrasound about a month ago which showed new clots. She does admit to some trace lower extremity edema. 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 Denies: Palpitations Respiratory: Reports: Dyspnea, Cough, Dyspnea on exertion Gastrointestinal: Denies: Abdominal pain, Nausea, Vomiting, Diarrhea, Melena, Hematochezia Genitourinary: Denies: Dysuria, Hematuria, Frequency Musculoskeletal: Denies: Back pain, Extremity Pain Skin: Denies: Rash, Wounds Neurological: Denies: Headache, Weakness, Numbness Physical Exam Vital Signs/Narrative: Vital Signs Temp Pulse Resp BP Pulse Ox 12/12/20 21:21 97.9 F 76 24 H 149/69 H 97 Inital Vital Signs reviewed: Yes General: Well nourished, Well developed, No Acute Distress Head: Normocephalic, Atraumatic Eyes: Perrl, EOMI ENT: Moist mucous membranes, No rhinorrhea Neck: Supple, Nontender Cardiovascular: Regular rate, Regular rhythm, No murmurs Respiratory: No distress, Chest nontender, Diminished Abdomen: Soft, Nontender, Nondistended, Normal bowel sounds Back: Nontender, Normal Inspection Extremities: Nontender, No edema Skin: Normal color, No rash Neurological: Alert, Oriented x3, Cranial nerves II-XII grossly intact, Normal Strength, Normal Sensation Psychological: Normal affect, Normal Mood Diagnostic/Tx/Re-eval Clinical Impression(s) from Imaging Studies Chest CTA 12/12/20 21:33 IMPRESSION: CTA chest examination, without a demonstrated pulmonary embolism or arterial dissection. Emphysema. No focal infiltrate. Electronically Signed: Luigi Willams MD at 23:09 EDT , Service support , Chest X-Ray 12/12/20 22:00 IMPRESSION: Degenerative changes, as described above. No demonstrated acute cardiopulmonary process. Electronically Signed: Luigi Willams MD at 22:58 EDT , Service support , Abnormal Lab Results 12/12/20 12/12/20 12/12/20 21:40 21:40 21:40 WBC 11.4 H RBC 4.33 Hgb 13.0 Hct 40.4 MCV 93.3 MCH 30.0 MCHC 32.2 RDW Std Deviation 50.9 H RDW Coeff of Doretha 14.6 Plt Count 337 MPV 9.2 Immature Gran % (Auto) 0.500 Neut % (Auto) 62.6 Lymph % (Auto) 28.0 [place] % (Auto) 7.2 Eos % (Auto) 1.3 Baso % (Auto) 0.4 Absolute Neuts (auto) 7.1 Absolute Lymphs (auto) 3.18 Nucleated RBC % 0 Sodium 135 L Potassium 3.8 Chloride 100 Carbon Dioxide 30.0 Anion Gap 5 BUN 20 H Creatinine 0.83 Estim Creat Clear Calc 52.91 Est GFR (MDRD) Af Amer 87 Est GFR (MDRD) Non-Af 72 BUN/Creatinine Ratio 24.0 H Glucose 111 H Calcium 9.0 Magnesium 2.3 Troponin I < 0.015 B-Natriuretic Peptide Cancelled - Rhythm Strip Rhythm Strip: Sinus Rhythm Rate: 80 Ectopy: None - EKG Initial EKG Interpretation: Sinus Rhythm, No Acute Injury Pattern Prior: Unchanged - Medical Decision Making Patient presents with shortness of breath that is worsened over the past 4 days. She does have documented history of pulmonary embolus. On arrival, she is not hypoxic or tachypneic or tachycardic. She had she looks well. Her major complaint is of fatigue. EKG was obtained. Was sinus rhythm without evidence of acute ischemia. Chest x-ray reviewed by both myself and the radiologist shows chronic change consistent with COPD, but there is no focal infiltrative process. With her worsening dyspnea and the fact that she has had new clots in her lower extremity I did want to rule out new PEs. Patient underwent CTA. The pulmonary arteries are open without evidence of clot burden. I did go over the information with the patient. She is actually feeling improved. I do feel that a lot of her complaints are anxiety mediated and the fact she has underlying lung disease with recent PEs. At this point, given her normal vitals and the fact she is feeling improved I do feel that she is safe for discharge. She is comfortable with this plan of care. Impression 1. Dyspnea ED Disposition - Plan for ED Patient: Instructions: ED Dyspnea Referrals: Heladio Edwards MD [Primary Care Provider] -
[2020-12-12 21:53] LABS: Absolute Lymphocyte Count 3.18 X10^3/uL (0.83-4.51); Absolute Neutrophil Count 7.1 X10^3/uL (2.0-7.7); Basophil# 0.05 X10^3/uL; Basophil% 0.4 % (0-1); Eosinophil# 0.15 X10^3/uL; Eosinophils% 1.3 % (0-5); Hematocrit 40.4 % (37-47); Lymphocyte # 3.18 X10^3/ul (0.83-4.51); Mean Corp Hgb Conc 32.2 g/dL (32-36); Mean Corpuscular Volume 93.3 fL (81-99); Mean Platelet Vol. 9.2 fl (6.2-12.0); Monocyte# 0.82 X10^3/uL; Monocyte% 7.2 % (0-10); NRBC Flagged by Analyzer 0 % (0-5); Neutrophil % 62.6 % (47-70); Platelet Count 337 K/mm3 (150-450); RBC Distribution Width CV 14.6 % (11.6-14.6); RBC Distribution Width SD 50.9 fl (35.1-43.9); Red Blood Count 4.33 M/mm3 (4.2-5.4); White Blood Count 11.4 K/mm3 (4.4-11.0)
--- NOTE | 2020-12-12 22:00 | RAD_ITS ---
STUDY: X-RAY CHEST REASON FOR EXAM: Female, 70 years old. Chest pain TECHNIQUE: Single AP portable view of the chest. COMPARISON: October 16, 2020 FINDINGS: There are monitoring devices. There is hyperinflation of the lungs consistent with chronic obstructive lung disease (COPD). There is no demonstrated pleural abnormality. Normal size heart. Normal mediastinum and fortino. Normal visualized pulmonary arteries. There is atherosclerotic calcification of the aortic arch with tortuosity. There is demineralization of the osseous structures. Normal visualized ribs, clavicles, and shoulders. There is no demonstrated abnormality of the visualized soft tissue structures of the upper abdomen. RAD/Chest 1 View (Portable) IMPRESSION: Degenerative changes, as described above. No demonstrated acute cardiopulmonary process. Electronically Signed: Luigi Willams MD at 22:58 EDT , Service support ,
[2020-12-12 22:07] LABS: Anion Gap 5 (5-15); BUN 20 mg/dL (7-18); Chloride 100 mmol/L (98-107); Creatinine, Serum 0.83 mg/dL (0.55-1.02); EST Glomerular Filtration Rate 72 mL/min (>60); Est Glom Filt Rate - Afr Amer 87 mL/min (>60); Estimated Creatinine Clearance 52.91 ml/min; Glucose 111 mg/dL (74-106); Magnesium 2.3 mg/dL (1.6-2.6); Potassium 3.8 mmol/L (3.5-5.1); Sodium Level 135 mmol/L (136-145)
[2020-12-12 22:09] VITALS: O2SAT 97
[2020-12-12] MEDS: Aspirin 81 MG TAB.CHEW 324 MG PO (22:17)
[2020-12-12] MEDS: 0.9% Normal Saline 1,000 ML 150 ML IV (22:18)
[2020-12-12 22:22] VITALS: BP 121/60; PULSE 66; RESP 17; O2SAT 98
[2020-12-12 23:31] VITALS: BP 124/75; PULSE 78; RESP 14; O2SAT 98
[2020-12-13 01:22] LABS: BNP,B-Type NATRIURETIC PEPTIDE 28.3 pg/mL (0-100)
== END 2020-12-12 23:35 | disposition home or self-care (01) ==
LOC: ED 22:03
PROVIDERS: Emergency Provider Emergency Medicine; PCP Family Medicine
DX: J43.9 Emphysema, unspecified (principal); I25.10 Atherosclerotic heart disease of native coronary artery without angina pectoris; I10 Essential (primary) hypertension; F17.200 Nicotine dependence, unspecified, uncomplicated; Z79.01 Long term (current) use of anticoagulants; Z99.81 Dependence on supplemental oxygen; Z79.899 Other long term (current) drug therapy; Z86.711 Personal history of pulmonary embolism
CPT/HCPCS: 71045; 71275; 80048; 83735; 83880; 84484; 85025; 93005; 96360; 99285; J7030; Q9967; A4216

== ENCOUNTER 2021-01-12 17:08 | Emergency (ER) | payer MEDICARE, MEDICAID, SELFPAY ==
[2021-01-10 10:03] VITALS: BMI 30.9
[2021-01-12 17:09] VITALS: BP 191/70; PULSE 66; RESP 20; TEMP 36.9; O2SAT 98; BMI 34.7
--- NOTE | 2021-01-12 17:13 | EKG12_ITS ---
Test Reason : CP Blood Pressure : / mmHG Vent. Rate : 061 BPM Atrial Rate : 061 BPM P-R Int : 214 ms QRS Dur : 088 ms QT Int : 418 ms P-R-T Axes : 070 053 062 degrees QTc Int : 420 ms Sinus rhythm with sinus arrhythmia with 1st degree A-V block Otherwise normal ECG Confirmed by GINO RUSHING, JANNETTE ([id number]), supervising editor news reel AYANNA LORENZO ([id number]) on 01/17/2021 10:01:56 A M Referred By: LIYAH/REGINO Confirmed By:KAMI CHRISTIAN MD
--- NOTE | 2021-01-12 17:15 | ED.VIS.CHEST ---
HPI History of Present Illness Chief Complaint: Chest Pain Informant: patient Onset/Context/Timing Onset: Today Activity at onset: gradual Timing: Intermittent Quality: Positive for Burning Location: Substernal Current Severity: Mild Maximum Severity: Moderate Worsened By: Nothing Relieved By: Nothing Associated Symptoms: Positive for Acid Reflux Narrative Narrative: The patient is a 70-year-old female presents to the emergency department midepigastric pain. The patient states she was in her normal state of health. She states that she has been having some complications since her knee surgery in September including bilateral pulmonary emboli. She is on Eliquis. She states today, she woke and felt normal. She states she had breakfast. Shortly later, she began have a burning pain in her midepigastric area. Did not radiate into her chest. She denies being short of breath. She denies fevers or chills. She was at her primary care's today for a well check. During review of systems, she did talk about the chest pain. She was sent here for further evaluation. She has no history of heart attack, but does have coronary vascular disease. Prior Similar Symptoms: No Recent Illness/Hospitalization: No PFSH PFSH Medical History DVT (deep venous thrombosis) Knee arthropathy Pulmonary embolism Smoker Home Medications pramipexole 1.5 mg PO QHS 06/12/14 [History Last Taken 05/28/16] trazodone 100 mg PO QHS 06/12/14 [History Last Taken 05/28/16] ropinirole 2 mg PO QHS 10/20/15 [History Last Taken 05/28/16] amlodipine 5 mg PO DAILY #30 tab 05/31/16 [Rx Last Taken 10/05/20] albuterol sulfate 1 inhaler INHALATION Q4H PRN 07/01/16 [History Last Taken Unknown] atorvastatin 20 mg PO QHS 07/01/16 [History Last Taken Unknown] metformin 500 mg PO DAILY 08/25/20 [History Last Taken Unknown] umeclidinium 62.5 mcg/actuation blister powder for inhalation 1 puff INHALATION DAILY 08/29/20 [History Last Taken Unknown] apixaban 5 mg PO BID #74 tab 10/15/20 [Rx Last Taken Unknown] fluticasone furoate-vilanterol 1 puff INHALATION DAILY 10/15/20 [History Last Taken Unknown] hydrocodone-acetaminophen 5-325mg 5mg-325mg tab PO 10/18/20 [History Last Taken Unknown] varenicline 0.5 mg (11)-1 mg (42) tablets in a dose pack 1 tablet PO DAILY 11/17/20 [History Last Taken Unknown] sucralfate 100 mg/mL oral suspension 10 ml PO ACHS 01/10/21 [History Last Taken Unknown] Allergy/AdvReac Type Severity Reaction Status Date / Time bupropion HCl Allergy Hives Verified 01/12/21 17:42 [From Wellbutrin] gabapentin [From Neurontin] Allergy Hives Verified 01/12/21 17:42 moxifloxacin HCl Allergy Hives Verified 01/12/21 17:42 [From Avelox] Social History Smoking Status: Current every day smoker ROS ROS ED Constitutional Constitutional ED: Denies chills or fever(s) Eyes Eyes: Denies blurry vision or change in vision ENT ENT ED: Denies ear pain or sore throat Cardiovascular Cardiovascular: Reports chest pain Respiratory/Chest Respiratory/Chest: Denies cough, dyspnea or dyspnea on exertion Gastrointestinal Gastrointestinal: Reports nausea Genitourinary Genitourinary ED: Denies dysuria or urinary frequency Musculoskeletal Musculoskeletal: Denies arthralgias or myalgias Integumentary Denies rash Neurologic Neurologic: Denies headache(s) or paresthesias Psychiatric Psychiatric: Denies anxiety or depression Endocrine Endocrinology: Denies polydipsia or polyuria Allergic/Immunologic Allergic/Immunologic ED: Denies urticaria EXAM Physical Exam Const Vital Signs: 01/12/21 17:09 01/12/21 17:11 01/12/21 17:39 Temperature 98.4 F Temperature Source Oral Pulse Rate 66 Respiratory Rate 20 H Respiratory Effort Normal Non-Labored Blood Pressure 191/70 H Blood Pressure Mean 110 Pulse Ox 98 Oxygen Delivery Method Room Air Room Air Oxygen Flow Rate (L/min) 01/12/21 17:44 01/12/21 17:47 Temperature Temperature Source Pulse Rate 63 Respiratory Rate 15 Respiratory Effort Blood Pressure 181/73 H 162/76 H Blood Pressure Mean 109 104 Pulse Ox 97 Oxygen Delivery Method Nasal Cannula Oxygen Flow Rate (L/min) 2 Positive well nourished and well developed General Appearance ED: well developed HEENT Reports normocephalic, head/scalp atraumatic and moist mucous membranes Eyes PERRL and EOMs intact bilaterally Neck no lymphadenopathy and supple General: Negative for tenderness Chest Wall inspection of chest normal Resp normal respiratory effort and clear to auscultation bilaterally Cardio regular rate, regular rhythm and no murmurs GI normal to inspection, nondistended, normoactive bowel sounds Palpation: Negative for tender, guarding or rebound tenderness present Back/Spine no CVA tenderness Cervical Spine: Negative for cervical spine tenderness Thoracic Spine / Upper Back: Negative for thoracic spinal tenderness Extremity normal to inspection General Extremety ED: Negative for tenderness Neuro oriented x3 and CN's II-XII intact bilaterally Neuro Narrative: No focal deficits appreciated. Sensorium / Orientation: alert Psych mental status grossly normal Skin no rashes or lesions noted, no wounds and skin turgor normal MDM MDM MDM Narrative Medical decision making narrative: The patient presents to the emergency department epigastric pain. Given her age and risk factors, cardiac work-up was pursued. EKG demonstrates sinus rhythm. There is no acute ischemia. Is unchanged from prior. Patient had already taken aspirin. Chest x-ray shows no cardiomegaly, infiltrate, other dangerous process. Is reviewed by both the radiologist and myself. Patient was given a GI cocktail. She had total resolution of her symptoms. Her enzymes are negative. She had the pain starting 8 hours ago. Again, as this is atypical with an unremarkable work-up, I do feel that she is safe for outpatient follow-up. The patient will be discharged home. Impression 1. Epigastric pain Lab Data Attestation: I reviewed the patient's lab results. Labs: Laboratory Results - last 24 hr 01/12/21 01/12/21 17:25 17:25 WBC 4.9 RBC 4.17 L Hgb 12.6 Hct 38.9 MCV 93.3 MCH 30.2 MCHC 32.4 RDW Std Deviation 49.9 H RDW Coeff of Doretha 14.5 Plt Count 270 MPV 8.7 Immature Gran % (Auto) 0.600 Neut % (Auto) 51.4 Lymph % (Auto) 34.8 [place] % (Auto) 10.9 H Eos % (Auto) 1.9 Baso % (Auto) 0.4 Absolute Neuts (auto) 2.5 Absolute Lymphs (auto) 1.69 Nucleated RBC % 0 Sodium 136 Potassium 3.6 Chloride 103 Carbon Dioxide 30.0 Anion Gap 3 L BUN 11 Creatinine 0.61 Estim Creat Clear Calc 43.91 Est GFR (MDRD) Af Amer 125 Est GFR (MDRD) Non-Af 103 BUN/Creatinine Ratio 18.2 Glucose 93 Calcium 9.1 Troponin I < 0.015 Radiography Chest X-Ray - ED: 1 View, Read by ED Physician, Unchanged, Heart, Lungs, Mediastinum, Bony Structures and No Acute Disease Diagnostic Testing: Radiology Impression Chest X-Ray 01/12/21 17:30 IMPRESSION: Normal x-ray examination of the chest. Electronically Signed: Maria D Sanchez MD at 17:46 EDT Tel , Service support , EKG Initial EKG: Attestation: I personally reviewed and interpreted this EKG as follows: Interpretation: Sinus Rhythm and No Acute Injury Pattern Prior: Unchanged Discharge Plan Triage Chief Complaint: Chest Pain ED Provider: Dennis Hidalgo Dx/Rx/DC Orders Instructions: ED Chest Pain, Noncardiac Prescriptions: No Action umeclidinium 62.5 mcg/actuation blister with device 1 puff INHALATION DAILY RF: 0 hydrocodone-acetaminophen 5-325 mg tablet PO RF: 0 varenicline 0.5 mg (11)- 1 mg (42) tablets,dose pack 1 tablet PO DAILY RF: 0 sucralfate 100 mg/mL suspension 10 ml PO ACHS RF: 0 trazodone 100 MG tablet 100 mg PO QHS RF: 0 pramipexole 1.5 MG tablet 1.5 mg PO QHS RF: 0 ropinirole 2 MG tablet 2 mg PO QHS RF: 0 amlodipine 5 MG tablet 5 mg PO DAILY Qty: 30 RF: 1 atorvastatin 20 MG tablet 20 mg PO QHS RF: 0 albuterol sulfate 2.5 MG/3 ML solution for nebulization 1 inhaler INHALATION Q4H PRN (Reason: Sob &/Or Wheezing) RF: 0 metformin 500 MG tablet 500 mg PO DAILY RF: 0 fluticasone furoate-vilanterol 1 EACH blister with device 1 puff INHALATION DAILY RF: 0 apixaban 5 MG tablet 5 mg PO BID Qty: 74 RF: 0 Primary Care Provider: Heladio Edwards Referrals: Heladio Edwards MD [Primary Care Provider] -
--- NOTE | 2021-01-12 17:30 | RAD_ITS ---
STUDY: X-RAY CHEST REASON FOR EXAM: Female, 70 years old. chest pain TECHNIQUE: Single AP portable view of the chest. COMPARISON: 12/12/2020. FINDINGS: The lungs are clear and expanded. There is no demonstrated pleural abnormality. Normal size heart. Normal mediastinum and fortino. Normal visualized pulmonary arteries. Normal visualized aortic arch and descending thoracic aorta. Normal visualized thoracic spine. Normal visualized ribs, clavicles, and shoulders. There is no demonstrated abnormality of the visualized soft tissue structures of the upper abdomen. RAD/Chest 1 View (Portable) IMPRESSION: Normal x-ray examination of the chest. Electronically Signed: Maria D Sanchez MD at 17:46 EDT Tel , Service support ,
[2021-01-12 17:35] LABS: Absolute Lymphocyte Count 1.69 X10^3/uL (0.83-4.51); Absolute Neutrophil Count 2.5 X10^3/uL (2.0-7.7); Basophil# 0.02 X10^3/uL; Basophil% 0.4 % (0-1); Eosinophil# 0.09 X10^3/uL; Eosinophils% 1.9 % (0-5); Hematocrit 38.9 % (37-47); Hemoglobin 12.6 g/dL (12.0-15.0); Lymphocyte # 1.69 X10^3/ul (0.83-4.51); Lymphocyte % 34.8 % (19-41); Mean Corp Hgb Conc 32.4 g/dL (32-36); Mean Corpuscular Hgb 30.2 pg (27.0-32.0); Mean Corpuscular Volume 93.3 fL (81-99); Mean Platelet Vol. 8.7 fl (6.2-12.0); Monocyte# 0.53 X10^3/uL; Monocyte% 10.9 % (0-10); NRBC Flagged by Analyzer 0 % (0-5); Neutrophil % 51.4 % (47-70); Platelet Count 270 K/mm3 (150-450); RBC Distribution Width CV 14.5 % (11.6-14.6); RBC Distribution Width SD 49.9 fl (35.1-43.9); Red Blood Count 4.17 M/mm3 (4.2-5.4); White Blood Count 4.9 K/mm3 (4.4-11.0)
[2021-01-12] MEDS: Mag Hydrox/Al Hydrox/Simeth 30 ML UDC PO (17:36)
[2021-01-12 17:44] VITALS: BP 181/73; PULSE 63; RESP 15; O2SAT 97
[2021-01-12 17:47] VITALS: BP 162/76
[2021-01-12 17:59] LABS: Anion Gap 3 (5-15); BUN 11 mg/dL (7-18); BUN/Creat Ratio 18.2 RATIO (10-20); Calcium,Total 9.1 mg/dL (8.5-10.1); Chloride 103 mmol/L (98-107); Creatinine, Serum 0.61 mg/dL (0.55-1.02); EST Glomerular Filtration Rate 103 mL/min (>60); Est Glom Filt Rate - Afr Amer 125 mL/min (>60); Estimated Creatinine Clearance 43.91 ml/min; Glucose 93 mg/dL (74-106); Potassium 3.6 mmol/L (3.5-5.1); Sodium Level 136 mmol/L (136-145)
[2021-01-12 18:28] VITALS: BP 129/73; PULSE 83; RESP 16; O2SAT 98
== END 2021-01-12 18:32 | disposition home or self-care (01) ==
LOC: ED 17:50
PROVIDERS: Emergency Provider Emergency Medicine; PCP Family Medicine
DX: R10.13 Epigastric pain (principal); F17.200 Nicotine dependence, unspecified, uncomplicated; Z86.711 Personal history of pulmonary embolism; Z86.718 Personal history of other venous thrombosis and embolism; Z79.01 Long term (current) use of anticoagulants
CPT/HCPCS: 71045; 80048; 84484; 85025; 93005; 99285; A4216

== ENCOUNTER 2021-03-17 16:30 | Inpatient (IN) | payer MEDICARE, MEDICAID, SELFPAY ==
[2021-03-17] VITALS (9 sets, daily range): BP systolic 137–160; BP diastolic 53–78; PULSE 70–104; RESP 18–28; TEMP 36.5–36.9; O2SAT 92–98; BMI 34.5; BMI 35.6
--- NOTE | 2021-03-17 16:54 | EKG12_ITS ---
Test Reason : SOB Blood Pressure : / mmHG Vent. Rate : 060 BPM Atrial Rate : 060 BPM P-R Int : 200 ms QRS Dur : 088 ms QT Int : 408 ms P-R-T Axes : 069 052 057 degrees QTc Int : 408 ms Normal sinus rhythm with sinus arrhythmia Nonspecific T wave abnormality Abnormal ECG Confirmed by GOSIA RUSHING, JOLLY ([id number]), assignment desk editor AYANNA LORENZO ([id number]) on 03/21/2021 10:20:05 AM Referred By: Confirmed By:JOLLY ELISE MD
--- NOTE | 2021-03-17 17:11 | EDS_ITS ---
HPI History of Present Illness Chief Complaint: Shortness of Breath Informant: patient and family Narrative Narrative: 70-year-old female arriving to the emergency department with a chief complaint of dyspnea. Patient states that symptoms began about 9 days ago and progressively worsened. No reported fever. She states that 4 days ago she was at urgent care had a negative Covid test and a chest x-ray that was negative. She was placed on 40 mg of prednisone. She states that she has worsened and went to see her quality assurance qa lab technician at [facility] today and they recommended that she come to emergency. She has a history of pulmonary embolism has not missed any of her apixaban. She states that she can only walk about 5 steps without having to stop. She denies chest pain. PFSH PFSH Medical History COPD (chronic obstructive pulmonary disease) Diabetes DVT (deep venous thrombosis) Knee arthropathy Lung cancer Pulmonary embolism Smoker Home Medications pramipexole 1.5 mg PO QHS 06/12/14 [History Last Taken 05/28/16] trazodone 100 mg PO QHS 06/12/14 [History Last Taken 05/28/16] ropinirole 2 mg PO QHS 10/20/15 [History Last Taken 05/28/16] amlodipine 5 mg PO DAILY #30 tab 05/31/16 [Rx Last Taken 10/05/20] albuterol sulfate 1 inhaler INHALATION Q4H PRN 07/01/16 [History Last Taken Unknown] atorvastatin 20 mg PO QHS 07/01/16 [History Last Taken Unknown] metformin 500 mg PO DAILY 08/25/20 [History Last Taken Unknown] umeclidinium 62.5 mcg/actuation blister powder for inhalation 1 puff INHALATION DAILY 08/29/20 [History Last Taken Unknown] apixaban 5 mg PO BID #74 tab 10/15/20 [Rx Last Taken Unknown] fluticasone furoate-vilanterol 1 puff INHALATION DAILY 10/15/20 [History Last Taken Unknown] benzonatate 100 - 200 mg PO TID PRN 03/17/21 [History Last Taken Unknown] prednisone 40 mg PO DAILY 03/17/21 [History Last Taken Unknown] Allergy/AdvReac Type Severity Reaction Status Date / Time bupropion HCl Allergy Hives Verified 03/17/21 16:31 [From Wellbutrin] gabapentin [From Neurontin] Allergy Hives Verified 03/17/21 16:31 moxifloxacin HCl Allergy Hives Verified 03/17/21 16:31 [From Avelox] Social History (Updated 03/17/21 @ 17:[address] Elkin Ray, DO) Smoking Status: Current every day smoker tobacco type: cigarettes substance use type: does not use ROS ROS ED Constitutional Constitutional ED: Denies chills, fever(s) or weight loss Eyes Eyes: Denies change in vision or diplopia ENT ENT ED: Denies ear pain, rhinorrhea or sore throat Cardiovascular Cardiovascular: Denies chest pain, orthopnea, palpitations or racing heartbeat Respiratory/Chest Respiratory/Chest: Reports cough, dyspnea, dyspnea on exertion and sputum; Denies orthopnea Gastrointestinal Gastrointestinal: Denies abdominal pain, diarrhea, nausea or vomiting Genitourinary Genitourinary ED: Denies dysuria, hematuria or urinary frequency Musculoskeletal Musculoskeletal: Denies arthralgias or myalgias Integumentary Denies abscess or rash Neurologic Neurologic: Denies headache(s) or weakness Psychiatric Psychiatric: Denies anxiety, depression, suicidal ideation or suicidal thoughts Endocrine Endocrinology: Denies polydipsia, polyphagia or polyuria Allergic/Immunologic Allergic/Immunologic ED: Denies mouth swelling, tongue swelling or urticaria EXAM Physical Exam Const Vital Signs: 03/17/21 16:31 03/17/21 17:30 03/17/21 17:46 Temperature 97.7 F L 97.7 F L Temperature Source Temporal Temporal Pulse Rate 70 94 Respiratory Rate 28 H 25 H Respiratory Effort Short of Breath Respiratory Pattern Blood Pressure 137/53 H 160/67 H Blood Pressure Mean 81 98 Pulse Ox 96 95 Oxygen Delivery Method Room Air Room Air 03/17/21 18:03 03/17/21 18:05 Temperature Temperature Source Pulse Rate 79 80 Respiratory Rate 18 18 Respiratory Effort Respiratory Pattern Normal Normal Blood Pressure Blood Pressure Mean Pulse Ox 93 92 Oxygen Delivery Method Room Air Room Air Positive well nourished and well developed General Appearance ED: well developed HEENT Reports normocephalic, head/scalp atraumatic and moist mucous membranes Eyes PERRL and EOMs intact bilaterally Neck no lymphadenopathy, supple and no JVD Resp Resp Narrative: Conversational dyspnea Auscultation: wheezes and diminished lung sounds Cardio regular rate, regular rhythm and no murmurs GI normal to inspection, nondistended, normoactive bowel sounds and non-tender Palpation: soft Back/Spine no CVA tenderness and normal ROM Extremity normal to inspection General Extremety ED: Negative for edema General Extremity: Negative for edema Neuro oriented x3 and CN's II-XII intact bilaterally Sensorium / Orientation: alert Motor Exam: strength 5/5 throughout Psych mental status grossly normal Mood & Affect: Negative for depressed or tearful Skin no rashes or lesions noted and no wounds MDM MDM MDM Narrative Medical decision making narrative: Patient's white count is 12. Lactic acid 2.4. Potassium 3.4. Glucose 266. Patient received IV fluid Solu-Medrol and breathing treatments. My interpretation of the chest x-ray is no acute process. Patient was also administered Rocephin and azithromycin given the elevated white count her lactic acid and the change in sputum production. However I do not feel she has pneumonia and I do not believe she meets sepsis criteria because I believe this is a COPD exacerbation. Lab Data Attestation: I reviewed the patient's lab results. Labs: Laboratory Results - last 24 hr 03/17/21 03/17/21 03/17/21 17:30 17:50 17:50 WBC 12.0 H RBC 4.61 Hgb 13.4 Hct 42.1 MCV 91.3 MCH 29.1 MCHC 31.8 L RDW Std Deviation 47.7 H RDW Coeff of Doretha 14.4 Plt Count 369 MPV 9.6 Immature Gran % (Auto) 0.500 Neut % (Auto) 85.9 H Lymph % (Auto) 10.4 L [place] % (Auto) 2.9 Eos % (Auto) 0.0 Baso % (Auto) 0.3 Absolute Neuts (auto) 10.3 H Absolute Lymphs (auto) 1.25 Nucleated RBC % 0 PT INR APTT Sodium Potassium Chloride Carbon Dioxide Anion Gap BUN Creatinine Estim Creat Clear Calc Est GFR (MDRD) Af Amer Est GFR (MDRD) Non-Af BUN/Creatinine Ratio Glucose Lactic Acid 2.4 H* Calcium Total Bilirubin 0.20 Direct Bilirubin 0.07 AST 11 L ALT 19 Alkaline Phosphatase 132 H Troponin I High Sens Total Protein 7.9 Albumin 3.6 Globulin 4.3 H 03/17/21 03/17/21 17:50 17:50 WBC RBC Hgb Hct MCV MCH MCHC RDW Std Deviation RDW Coeff of Doretha Plt Count MPV Immature Gran % (Auto) Neut % (Auto) Lymph % (Auto) [place] % (Auto) Eos % (Auto) Baso % (Auto) Absolute Neuts (auto) Absolute Lymphs (auto) Nucleated RBC % PT 13.4 INR 1.1 APTT 29.7 Sodium 138 Potassium 3.4 L Chloride 103 Carbon Dioxide 27.0 Anion Gap 8 BUN 20 H Creatinine 0.93 Estim Creat Clear Calc 45.23 Est GFR (MDRD) Af Amer 77 Est GFR (MDRD) Non-Af 63 BUN/Creatinine Ratio 21.6 H Glucose 266 H Lactic Acid Calcium 8.8 Total Bilirubin Direct Bilirubin AST ALT Alkaline Phosphatase Troponin I High Sens 5.2 Total Protein Albumin Globulin Radiography Diagnostic Testing: Radiology Impression Chest X-Ray 03/17/21 17:55 IMPRESSION: No radiographic evidence of acute cardiopulmonary disease. at 1841 Reported and signed by: Kd Bone MD Electronically Signed: Kd Bone MD at 18:40 EDT Tel , Service support , Discharge Plan Dx/Rx/DC Orders Clinical Impression: COPD exacerbation Disposition Disposition: Acute Care [facility]
[2021-03-17] MEDS: 0.9% Normal Saline 1,000 ML 150 ML IV (17:49)
[2021-03-17] MEDS: MethylPREDNISolone 125 MG/2 ML Vial IV (17:49)
--- NOTE | 2021-03-17 17:55 | RAD_ITS ---
EXAM: XR CHEST, 1 VIEW : 1950 CLINICAL INDICATION: COPD TECHNIQUE: Frontal view of the chest. This report was created using [employer] report generation technology. COMPARISON: 01/12/2021 FINDINGS: LUNGS AND PLEURAL SPACES: Unremarkable. No consolidation or edema. No pneumothorax. No effusion. HEART: Unremarkable. Cardiac silhouette not enlarged. MEDIASTINUM: Central airways and mediastinal contour are unremarkable. BONES/JOINTS: Unremarkable. SOFT TISSUES: Unremarkable. RAD/Chest 1 View (Portable) IMPRESSION: No radiographic evidence of acute cardiopulmonary disease. at 1841 Reported and signed by: Kd Bone MD Electronically Signed: Kd Bone MD at 18:40 EDT Tel , Service support ,
[2021-03-17] MEDS: Ipratropium/Albuterol Sulfate 3 ML AMPUL.NEB INHALATION ×2 (18:01→22:55)
[2021-03-17] MEDS: Albuterol 2.5 MG/3 ML VIAL.NEB. INHALATION ×2 (18:02→18:04)
[2021-03-17 18:07] LABS: Absolute Lymphocyte Count 1.25 X10^3/uL (0.83-4.51); Absolute Neutrophil Count 10.3 X10^3/uL (2.0-7.7); Basophil# 0.03 X10^3/uL; Basophil% 0.3 % (0-1); Hematocrit 42.1 % (37-47); Hemoglobin 13.4 g/dL (12.0-15.0); Lymphocyte # 1.25 X10^3/ul (0.83-4.51); Lymphocyte % 10.4 % (19-41); Mean Corp Hgb Conc 31.8 g/dL (32-36); Mean Corpuscular Hgb 29.1 pg (27.0-32.0); Mean Corpuscular Volume 91.3 fL (81-99); Mean Platelet Vol. 9.6 fl (6.2-12.0); Monocyte# 0.35 X10^3/uL; Monocyte% 2.9 % (0-10); NRBC Flagged by Analyzer 0 % (0-5); Neutrophil # 10.31 X10^3/uL (2.7-7.7); Neutrophil % 85.9 % (47-70); Platelet Count 369 K/mm3 (150-450); RBC Distribution Width CV 14.4 % (11.6-14.6); RBC Distribution Width SD 47.7 fl (35.1-43.9); Red Blood Count 4.61 M/mm3 (4.2-5.4)
[2021-03-17 18:13] LABS: International Normalized Ratio 1.1; Prothrombin Time (Protime)PT. 13.4 SECONDS (11.7-14.9)
[2021-03-17 18:14] LABS: Partial Thromboplast Time 29.7 Seconds (24.1-36.2)
[2021-03-17 18:16] LABS: AST(SGOT) 11 U/L (15-37); Alanine Aminotransfer ALT/SGPT 19 U/L (13-56); Albumin, Serum 3.6 g/dL (3.2-5.0); Alkaline Phosphatase 132 U/L (45-117); Bilirubin, Direct 0.07 mg/dL (0.00-0.30); Globulin 4.3 g/dL (2.2-4.2); Protein, Total 7.9 g/dL (6.4-8.2)
[2021-03-17 18:20] LABS: Anion Gap 8 (5-15); BUN 20 mg/dL (7-18); BUN/Creat Ratio 21.6 RATIO (10-20); Calcium,Total 8.8 mg/dL (8.5-10.1); Chloride 103 mmol/L (98-107); Creatinine, Serum 0.93 mg/dL (0.55-1.02); EST Glomerular Filtration Rate 63 mL/min (>60); Est Glom Filt Rate - Afr Amer 77 mL/min (>60); Estimated Creatinine Clearance 45.23 ml/min; Glucose 266 mg/dL (74-106); Potassium 3.4 mmol/L (3.5-5.1); Sodium Level 138 mmol/L (136-145); Troponin-I HS 5.2 pg/mL (3.0-53.7)
[2021-03-17 18:39] LABS: Lactic Acid 2.4 mmol/L (0.4-1.9)
[2021-03-17] MEDS: 0.9% Normal Saline 1,000 ML 999 ML IV (18:46)
[2021-03-17] MEDS: Ceftriaxone 1 GM/50 ML BAG IV (19:11)
--- NOTE | 2021-03-17 19:56 | PCM.HP.STD ---
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 Shortness of breath is at rest and increases markedly with mild exertion. She went to the urgent care 3 days before presentation. Chest x-ray and Covid screen at the urgent care was negative. Patient was started on a prednisone for COPD as the patient. On the day of presentation she went to see her lan administrator at [facility] who started. She was told that she should come to the hospital because of the severity of her symptoms. PFSH Medical History Asthma Chronic pain COPD (chronic obstructive pulmonary disease) Diabetes Diabetes DVT (deep venous thrombosis) Knee arthropathy Lung cancer Pulmonary embolism Smoker Home Medications pramipexole 1.5 mg PO QHS 06/12/14 [History Last Taken 03/16/21] trazodone 100 mg PO QHS 06/12/14 [History Last Taken 05/28/16] ropinirole 2 mg PO QHS 10/20/15 [History Last Taken 03/16/21] albuterol sulfate 1 inhaler INHALATION Q4H PRN 07/01/16 [History Last Taken 03/17/21] atorvastatin 20 mg PO QHS 07/01/16 [History Last Taken 03/16/21] metformin 500 mg PO DAILY 08/25/20 [History Last Taken 03/17/21] umeclidinium 62.5 mcg/actuation blister powder for inhalation 1 puff INHALATION DAILY 08/29/20 [History Last Taken 03/17/21] fluticasone furoate-vilanterol 1 puff INHALATION DAILY 10/15/20 [History Last Taken 03/17/21] amlodipine 5 mg PO DAILY 03/17/21 [History Last Taken 03/17/21] apixaban 5 mg PO BID 03/17/21 [History Last Taken 03/17/21] benzonatate 100 - 200 mg PO TID PRN 03/17/21 [History Last Taken Unknown] furosemide 20 mg PO DAILY 03/17/21 [History Last Taken 03/16/21] losartan 50 mg PO DAILY 03/17/21 [History Last Taken Unknown] prednisone 40 mg PO DAILY 03/17/21 [History Last Taken 03/17/21] sertraline 50 mg PO DAILY 03/17/21 [History Last Taken 03/17/21] Allergy/AdvReac Type Severity Reaction Status Date / Time bupropion HCl Allergy Hives Verified 03/17/21 16:31 [From Wellbutrin] gabapentin [From Neurontin] Allergy Hives Verified 03/17/21 16:31 moxifloxacin HCl Allergy Hives Verified 03/17/21 16:31 [From Avelox] Family History Other COPD (chronic obstructive pulmonary disease) Cancer Diabetes Heart disease Surgical History H/O hand surgery H/O knee surgery H/O: hysterectomy Status post lobectomy of lung Social History (Updated 03/17/21 @ 17:[address] Elkin Ray, ) Smoking Status: Current every day smoker tobacco type: cigarettes substance use type: does not use ROS Constitutional Constitutional: Reports fatigue and weakness; Denies anorexia, change in weight, chills, fever(s), malaise or night sweats Eyes Eyes: Denies blurry vision, change in eye color, change in vision, discharge from eye(s), double vision, erythema, eye pain, loss of vision or other ENT HEENT: Reports nasal discharge, post nasal drip and other; Denies abnormal hearing, dysphagia, ear pain, epistaxis, headache(s), hearing loss, sinus pressure or sore throat Cardiovascular Cardiovascular: Reports dyspnea on exertion; Denies chest pain, claudication, edema, lightheadedness, orthopnea, palpitations, paroxysmal nocturnal dyspnea, rapid heart rate, syncope or other Respiratory/Chest Respiratory/Chest: Reports cough, dyspnea, excessive phlegm production, productive cough, shortness of breath at rest, shortness of breath with exertion and wheezing; Denies hemoptysis Gastrointestinal Gastrointestinal: Denies abdominal pain, coffee ground emesis, constipation, diarrhea, dyspepsia, hematemesis, hematochezia, loose stools, melena, nausea, vomiting or other Genitourinary Genitourinary: Denies burning urination, difficulty urinating, dysuria, hematuria, nocturia, urinary frequency, urinary hesitancy, urinary incontinence, urinary urgency or other Musculoskeletal Musculoskeletal: Denies arthralgias, back pain, joint pain, joint stiffness, joint swelling, myalgias, neck pain or other Neurologic Neurologic: Denies abnormal gait, abnormal speech, confusion, disequilibrium, dizziness, focal weakness, headache(s), numbness, paresthesias, seizure-like activity, seizures, syncope, tingling, tremor(s) or other Psychiatric Psychiatric: Denies anxiety, depression, homicidal ideation, suicidal ideation or other Endocrine Endocrinology: Denies change in body appearance, cold intolerance, excessive sweating, heat intolerance, polydipsia, polyuria or other Hematologic/Lymphatic Hematologic/Lymphatic: Denies anemia, easy bleeding, easy bruising, lymphadenopathy or other Allergic/Immunologic Allergic/Immunologic: Denies rhinitis, hives, eczemia, asthma or other Vital Signs Vital Signs Vital Signs: 03/17/21 16:31 03/17/21 17:30 03/17/21 17:46 Temperature 97.7 F L 97.7 F L Temperature Source Temporal Temporal Pulse Rate 70 94 Respiratory Rate 28 H 25 H Respiratory Effort Short of Breath Respiratory Pattern Blood Pressure 137/53 H 160/67 H Blood Pressure Mean 81 98 Pulse Ox 96 95 Oxygen Delivery Method Room Air Room Air 03/17/21 18:03 03/17/21 18:05 03/17/21 19:12 Temperature Temperature Source Pulse Rate 79 80 104 H Respiratory Rate 18 18 22 H Respiratory Effort Respiratory Pattern Normal Normal Blood Pressure 145/78 H Blood Pressure Mean 100 Pulse Ox 93 92 97 Oxygen Delivery Method Room Air Room Air Room Air 03/17/21 19:35 03/17/21 19:43 Temperature 98.5 F 98.5 F Temperature Source Temporal Temporal Pulse Rate 86 86 Respiratory Rate 18 18 Respiratory Effort Respiratory Pattern Blood Pressure 145/78 H 145/78 H Blood Pressure Mean 100 100 Pulse Ox 95 95 Oxygen Delivery Method Room Air Room Air Weight Weight: 88.451 kg Body Mass Index (BMI) 34.5 Physical Exam Const alert, oriented x3, no apparent distress and well nourished General Appearance: cooperative HEENT normocephalic, head/scalp atraumatic, hearing grossly normal bilaterally, moist oral mucous membranes, oropharynx normal and dentition normal Mouth: oral and palatal mucosa normal and moist mucous membranes abnormal Eyes PERRL, EOMs intact bilaterally and conjunctivae normal Neck no lymphadenopathy, supple, no JVD and no carotid bruits Resp Effort and Inspection: respiratory distress, labored and uses accessory muscles; Negative for able to speak in complete sentences or actively coughing Auscultation: rhonchi, wheezes and breath sounds absent; Negative for crackles Cardio regular rate, regular rhythm, S1 normal heart sound, S2 normal heart sound, no murmurs, no rub, no gallops, no clicks and no JVD GI normal to inspection, nondistended, normoactive bowel sounds, soft to palpation, non-tender, non-distended and hepatosplenomegaly Auscultation: hyperactive bowel sounds and hypoactive bowel sounds Palpation: tender, guarding and hernia Extremity normal to inspection, full ROM and no clubbing, cyanosis or edema Peripheral Pulses: Yes pulses 2+ throughout Skin no rashes or lesions noted, no wounds and skin turgor normal Neuro oriented x3 and moves all extremities Sensorium / Orientation: awake, alert, oriented to person, oriented to place and oriented to time Motor Exam: strength 5/5 throughout Psych affect normal Mood & Affect: Negative for depressed or anxious Results Lab / Micro Data Result Diagrams: 03/17/21 17:50 03/17/21 17:50 Labs: Laboratory Results - last 24 hr 03/17/21 17:30: Lactic Acid 2.4 H* 03/17/21 17:50: Total Bilirubin 0.20, Direct Bilirubin 0.07, AST 11 L, ALT 19, Alkaline Phosphatase 132 H, Total Protein 7.9, Albumin 3.6, Globulin 4.3 H 03/17/21 17:50: WBC 12.0 H, RBC 4.61, Hgb 13.4, Hct 42.1, MCV 91.3, MCH 29.1, MCHC 31.8 L, RDW Std Deviation 47.7 H, RDW Coeff of Doretha 14.4, Plt Count 369, MPV 9.6, Immature Gran % (Auto) 0.500, Neut % (Auto) 85.9 H, Lymph % (Auto) 10.4 L, [place] % (Auto) 2.9, Eos % (Auto) 0.0, Baso % (Auto) 0.3, Absolute Neuts (auto) 10.3 H, Absolute Lymphs (auto) 1.25, Nucleated RBC % 0 03/17/21 17:50: PT 13.4, INR 1.1, APTT 29.7 03/17/21 17:50: Sodium 138, Potassium 3.4 L, Chloride 103, Carbon Dioxide 27.0, Anion Gap 8, BUN 20 H, Creatinine 0.93, Estim Creat Clear Calc 45.23, Est GFR (MDRD) Af Amer 77, Est GFR (MDRD) Non-Af 63, BUN/Creatinine Ratio 21.6 H, Glucose 266 H, Calcium 8.8, Troponin I High Sens 5.2 Micro: Microbiology 03/17/21 17:25 Mucosa - Nose SARS-CoV-2 Antigen (Rapid) - Final Radiology Impression Chest X-Ray 03/17/21 17:55 IMPRESSION: No radiographic evidence of acute cardiopulmonary disease. at 1841 Reported and signed by: Kd Bone MD Electronically Signed: Kd Bone MD at 18:40 EDT Tel , Service support , Assessment & Plan Assessment/Plan (1) COPD exacerbation: (2) Tobacco abuse: (3) Sleep apnea: QUALIFIERS: Sleep apnea type: obstructive Qualified Code(s): G47.33 - Obstructive sleep apnea (adult) (pediatric) PLAN: Acute exacerbation of COPD Radiologist impression of chest x-ray: No radiographic evidence of acute cardiopulmonary disease. CXR independently reviewed and I agree radiologist interpretation. Lactic acid is elevated at 2.4 however I do not think patient had any active infection. Lactic acidosis could be due to Metformin use. Rapid Covid antigen at the emergency department was negative. Blood culture x2 was obtained at emergency department; follow. Patient was vaccinated against Covid 19. She had the pfizer vaccination with last shots in November 2020. Scheduled DuoNeb Albuterol as needed Solu-Medrol Started on IV azithromycin and ceftriaxone at emergency department and continued. Oxygen as needed Review of emergent department labs showed white count of 12.0 with neutrophilic predominance; trend. Potassium was 3.4. BUN was mildly elevated at 20. Monitor BMP and CBC Diabetes mellitus Patient with hyperglycemia on presentation Metformin held in the hospital setting. Basal, prandial insulin ordered. Accu-Chek QA CHS with correction scale insulin ordered. Hypertension Blood pressure is stable in regard to her age Amlodipine and Lasix continued. Trend blood pressure and adjust blood pressure medications. Depression/anxiety: Trazodone continued Tobacco abuse. Patient is down from 2 and half packs of cigarettes to about 5 to 6 cigarettes/day. Counseled. Nicotine patch prescribed. Obstructive sleep apnea; on home 2.5 L oxygen with BiPAP; continued. Restless leg syndrome: Requip continued. Mirapex continued. Hyperlipidemia: Lipitor continued History of pulmonary embolism: Eliquis continued. DVT prophylaxis: Not indicated since patient is on Eliquis. Charges/Coding Visit Charges Inpatient E&M: 09545 In Hosp L3
[2021-03-17 21:55] LABS: Reflex Lactate? Y
[2021-03-17] MEDS: 0.9% Saline Lock 10 ML Syringe IV (22:29)
[2021-03-17] MEDS: Pramipexole Di-HCl 0.5 MG Tablet 1.5 MG PO (22:34)
[2021-03-17] MEDS: Atorvastatin Calcium 20 MG Tablet PO (22:34)
[2021-03-17] MEDS: traZODone 100 MG Tablet PO (22:34)
[2021-03-17] MEDS: Insulin Lispro 100 UNIT/ML INSULN.PEN SC (22:35)
[2021-03-17] MEDS: APIXABAN 5 MG TABLET PO (22:46)
[2021-03-17 22:51] LABS: Bedside Glucose 200 mg/dL (70-110)
[2021-03-17 22:59] LABS: Lactic Acid 2.5 mmol/L (0.4-1.9)
--- NOTE | 2021-03-17 23:32 | CPS ---
Pt. has home BiPAP unit with her. Pt. claims she bleeds in 2.5L O2 with her machine at night. (10/06 pressure settings)
[2021-03-18] VITALS (10 sets, daily range): BP systolic 146–161; BP diastolic 64–81; PULSE 66–81; RESP 18–20; TEMP 36.7–36.9; O2SAT 89–100
[2021-03-18] MEDS: 0.9% Saline Lock 10 ML Syringe IV (05:18)
[2021-03-18 06:34] LABS: Absolute Lymphocyte Count 1.33 X10^3/uL (0.83-4.51); Absolute Neutrophil Count 10.6 X10^3/uL (2.0-7.7); Basophil# 0.02 X10^3/uL; Basophil% 0.2 % (0-1); Hematocrit 40.4 % (37-47); Hemoglobin 12.9 g/dL (12.0-15.0); Lymphocyte # 1.33 X10^3/ul (0.83-4.51); Lymphocyte % 10.8 % (19-41); Mean Corp Hgb Conc 31.9 g/dL (32-36); Mean Corpuscular Hgb 29.1 pg (27.0-32.0); Mean Corpuscular Volume 91.2 fL (81-99); Mean Platelet Vol. 9.8 fl (6.2-12.0); Monocyte# 0.19 X10^3/uL; Monocyte% 1.5 % (0-10); NRBC Flagged by Analyzer 0 % (0-5); Neutrophil # 10.62 X10^3/uL (2.7-7.7); Neutrophil % 86.6 % (47-70); Platelet Count 333 K/mm3 (150-450); RBC Distribution Width CV 14.2 % (11.6-14.6); RBC Distribution Width SD 47.5 fl (35.1-43.9); Red Blood Count 4.43 M/mm3 (4.2-5.4); White Blood Count 12.3 K/mm3 (4.4-11.0)
[2021-03-18 07:00] LABS: Anion Gap 8 (5-15); BUN 18 mg/dL (7-18); BUN/Creat Ratio 28.3 RATIO (10-20); Calcium,Total 8.5 mg/dL (8.5-10.1); Chloride 105 mmol/L (98-107); Creatinine, Serum 0.64 mg/dL (0.55-1.02); EST Glomerular Filtration Rate 98 mL/min (>60); Est Glom Filt Rate - Afr Amer 118 mL/min (>60); Estimated Creatinine Clearance 42.07 ml/min; Glucose 183 mg/dL (74-106); Potassium 3.8 mmol/L (3.5-5.1); Sodium Level 137 mmol/L (136-145)
[2021-03-18] MEDS: Ipratropium/Albuterol Sulfate 3 ML AMPUL.NEB INHALATION ×3 (07:22→15:12)
[2021-03-18] MEDS: amLODIPine 5 MG Tablet PO (08:40)
[2021-03-18] MEDS: Insulin Lispro 100 UNIT/ML INSULN.PEN SC ×3 (08:41→14:44)
[2021-03-18] MEDS: Nystatin Powder 15gm Bottle 1 APPLIC TOPICAL (08:42)
[2021-03-18] MEDS: APIXABAN 5 MG TABLET PO (08:42)
--- NOTE | 2021-03-18 10:10 | CASEMGMT ---
CONNOR ZIMMERMAN Assessment: Face to Face with pt for initial transition planning/care coordination assessment. CONNOR ZIMMERMAN introduced self and role at [facility], pt voices understanding and consents to assessment. Pt is A/O x4 and answers all questions appropriately at this time. Pt lying in bed in no distress on RA. Care providers, pharmacy, and demographics verified/updated. Admitting Dx: COPD exac PCP: Grace Specialists: nicolás Robin; jamie Posey Preferred Pharmacy: [facility] Insurance: My Care CRS, CRS Prescription Benefit: yes LW/HPOA: Pt states she has LW/DPOA. Her DPOA is Camille Merchant dtr. She is aware that it is not on file at [facility] and she may bring in to be scanned to the chart. LNOK: Camille Merchant dtr; Marshall Rivas, son Living Arrangements: Pt lives in a single story apt and recently received a parking spot where she has no steps to enter the house. Pt states she is I in ADL's and denies concerns at home. Transportation: Pt drives self and denies concerns with transportation. DME/HHC/SNF: Pt has a bipap at home that she receives 2L O2 at night through [employer], nebulizer and rollator. Pt states she has had [facility] HHS when she had knee surgery. Denies hx of SNF stays. Pt states no concerns with going home at time of dc. Denies need for HHC. Pt states no further concerns/needs. CM to follow. Advised pt to ask CM if any further question/concerns/needs arise, voices understanding. Pt Goal: Home Plan: Home
[2021-03-18 12:21] LABS: Bedside Glucose 136 mg/dL (70-110)
--- NOTE | 2021-03-18 12:27 | PCM.PN.HOSP ---
Subjective Subjective Doing well today, feels much better compared to when she came in. She is resting comfortably on room air however she desatted down to 89% on room air with ambulation. Objective Data Objective Data Vital Signs: Vital Signs Temp Pulse Resp BP Pulse Ox 98.0 F 81 20 H 146/64 H 94 03/18/21 08:38 03/18/21 08:38 03/18/21 08:38 03/18/21 08:38 03/18/21 12:22 Oxygen Flow Rate (L/min) 2 Oxygen Delivery Method Room Air Weight: 200 lb 13.458 oz Body Mass Index (BMI) 35.6 Intake & Output: Intake and Output for Last 24 Hours 03/17/21 03/18/21 03/19/21 03:59 03:59 03:59 Intake Total 1795 / 1795 300 / 300 Output Total 150 / 150 Balance 1645 / 1645 300 / 300 Lab / Micro Data Result Diagrams: 03/18/21 05:32 03/18/21 05:32 Labs: Laboratory Results - last 24 hr 03/17/21 17:30: Lactic Acid 2.4 H* 03/17/21 17:50: Total Bilirubin 0.20, Direct Bilirubin 0.07, AST 11 L, ALT 19, Alkaline Phosphatase 132 H, Total Protein 7.9, Albumin 3.6, Globulin 4.3 H 03/17/21 17:50: WBC 12.0 H, RBC 4.61, Hgb 13.4, Hct 42.1, MCV 91.3, MCH 29.1, MCHC 31.8 L, RDW Std Deviation 47.7 H, RDW Coeff of Doretha 14.4, Plt Count 369, MPV 9.6, Immature Gran % (Auto) 0.500, Neut % (Auto) 85.9 H, Lymph % (Auto) 10.4 L, [place] % (Auto) 2.9, Eos % (Auto) 0.0, Baso % (Auto) 0.3, Absolute Neuts (auto) 10.3 H, Absolute Lymphs (auto) 1.25, Nucleated RBC % 0 03/17/21 17:50: PT 13.4, INR 1.1, APTT 29.7 03/17/21 17:50: Sodium 138, Potassium 3.4 L, Chloride 103, Carbon Dioxide 27.0, Anion Gap 8, BUN 20 H, Creatinine 0.93, Estim Creat Clear Calc 45.23, Est GFR (MDRD) Af Amer 77, Est GFR (MDRD) Non-Af 63, BUN/Creatinine Ratio 21.6 H, Glucose 266 H, Calcium 8.8, Troponin I High Sens 5.2 03/17/21 22:20: Lactic Acid 2.5 H* 03/17/21 22:35: POC Glucose 200 H 03/18/21 05:32: WBC 12.3 H, RBC 4.43, Hgb 12.9, Hct 40.4, MCV 91.2, MCH 29.1, MCHC 31.9 L, RDW Std Deviation 47.5 H, RDW Coeff of Doretha 14.2, Plt Count 333, MPV 9.8, Immature Gran % (Auto) 0.900, Neut % (Auto) 86.6 H, Lymph % (Auto) 10.8 L, [place] % (Auto) 1.5, Eos % (Auto) 0.0, Baso % (Auto) 0.2, Absolute Neuts (auto) 10.6 H, Absolute Lymphs (auto) 1.33, Nucleated RBC % 0 03/18/21 05:32: Sodium 137, Potassium 3.8, Chloride 105, Carbon Dioxide 24.0, Anion Gap 8, BUN 18, Creatinine 0.64, Estim Creat Clear Calc 42.07, Est GFR (MDRD) Af Amer 118, Est GFR (MDRD) Non-Af 98, BUN/Creatinine Ratio 28.3 H, Glucose 183 H, Calcium 8.5 03/18/21 12:16: POC Glucose 136 H Micro: Microbiology 03/17/21 17:25 Mucosa - Nose SARS-CoV-2 Antigen (Rapid) - Final Radiography Diagnostic Testing: Radiology Impression Chest X-Ray 03/17/21 17:55 IMPRESSION: No radiographic evidence of acute cardiopulmonary disease. at 1841 Reported and signed by: Kd Bone MD Electronically Signed: Kd Bone MD at 18:40 EDT Tel , Service support , Physical Exam Const alert, oriented x3 and no apparent distress General Appearance: cooperative HEENT normocephalic and moist oral mucous membranes Eyes PERRL, EOMs intact bilaterally and conjunctivae normal Neck supple and no JVD Resp normal respiratory effort, no retractions and no use of accessory muscles Auscultation: wheezes scattered wheezes; Negative for crackles, rales or rhonchi Cardio regular rate, regular rhythm, S1 normal heart sound, S2 normal heart sound and no murmurs GI soft to palpation, non-tender and non-distended; Negative for hepatosplenomegaly Extremity no clubbing, cyanosis or edema Skin no rashes or lesions noted Neuro no focal motor deficits and no sensory deficits noted Psych affect normal Appearance: appropriate Assessment & Plan Assessment/Plan (1) COPD exacerbation: (2) Tobacco abuse: (3) Sleep apnea: QUALIFIERS: Sleep apnea type: obstructive Qualified Code(s): G47.33 - Obstructive sleep apnea (adult) (pediatric) PLAN: 1. Acute exacerbation of COPD/tobacco abuse/history of lung cancer status post lobectomy/SHANA -No need for oxygen at rest and she is 89% on room air with ambulation -Continue with Solu-Medrol as well as inhalers. -Continue with nicotine patch, discussed cessation -No fevers and white count is elevated secondary to home prednisone, discontinue antibiotics -Repeat ambulatory oxygen tomorrow 2. DM2 -Continue to hold Metformin, will place her on sliding scale insulin as well long-acting insulin -Accu-Cheks AC at bedtime 3. HTN/HLD -Blood pressure stable -Continue with her home blood pressure medications -Continue with Lipitor 4. History of PE -Stable -Continue with Eliquis 5. Restless leg syndrome -Stable -Continue with Requip Next. Depression/anxiety -Stable -Continue with home meds DVT: Eliquis Charges/Coding Visit Charges Inpatient E&M: 04577 Subs Hosp L2
--- NOTE | 2021-03-18 15:11 | PCM.DC ---
Discharge Instructions Diet Discharge Diet: Low fat / Low cholesterol, 1800 Calorie Control Diet and Carb Control Diet Activity Discharge Activity: Return to Normal Activity Dressing / Incision Call your doctor if you observe: Fever of 101 or Higher, Shortness of breath, Dizziness, Swelling in the ankles, Chest pain and Increased palpitations (irregular heartbeat) Follow Up Care Test Results: Test results from this visit will be discussed in further detail at your follow-up appointment, if applicable. Discharge Plan Admission Admit Date/Time: 03/17/21 19:28 Attending Provider: Amauri Patterson Primary Care Provider: Heladio Edwards Instructions Patient Instructions: COPD Diabetes, COPD Meds Discharge Orders/Prescriptions Prescriptions: Continued umeclidinium 62.5 mcg/actuation blister with device 1 puff INHALATION DAILY RF: 0 trazodone 100 MG tablet 100 mg PO QHS RF: 0 pramipexole 1.5 MG tablet 1.5 mg PO QHS RF: 0 ropinirole 2 MG tablet 2 mg PO QHS RF: 0 atorvastatin 20 MG tablet 20 mg PO QHS RF: 0 albuterol sulfate 2.5 MG/3 ML solution for nebulization 1 inhaler INHALATION Q4H PRN (Reason: Sob &/Or Wheezing) RF: 0 metformin 500 MG tablet 500 mg PO DAILY RF: 0 fluticasone furoate-vilanterol 1 EACH blister with device 1 puff INHALATION DAILY RF: 0 prednisone 20 mg tablet 40 mg PO DAILY RF: 0 benzonatate 100 mg capsule 100 - 200 mg PO TID PRN (Reason: cough) RF: 0 losartan 50 mg tablet 50 mg PO DAILY RF: 0 furosemide 20 mg tablet 20 mg PO DAILY RF: 0 sertraline 50 mg tablet 50 mg PO DAILY RF: 0 amlodipine 5 MG tablet 5 mg PO DAILY RF: 0 apixaban 5 MG tablet 5 mg PO BID RF: 0 Referrals / Follow Up: Heladio Edwards MD [Primary Care Provider] - In 1 Week Disposition Disposition (needs filled in before D/C Order can be placed): Home, Self Care
--- NOTE | 2021-03-18 15:14 | NURSING ---
Pt informed by this nurse that Dr. Patterson wanted pt to stay one more day since she dropped down to 89%. But I only dropped to 89% for a couple of seconds and then came up to 92%. What pt states is true. Pt also states she feels great and would really like to go home. This nurse contacted Dr. Patterson to inform of the all the above. Dr. Patterson will discharge pt. Pt is aware and already has follow up appointment with her PCP on SaturdayMarch 20.
--- NOTE | 2021-03-18 15:25 | PCM.DC.SUM ---
Providers Date of Admission: 03/17/21 Primary Care Physician: Dr. Heladio Edwards MD Reason For Visit: COPD EXACERBATION Diagnosis Discharge Diagnosis (1) COPD exacerbation: Status: Chronic Code(s): J44.1 - Chronic obstructive pulmonary disease with (acute) exacerbation (2) Tobacco abuse: Status: Chronic Code(s): Z72.0 - Tobacco use (3) Sleep apnea: Status: Chronic Code(s): G47.30 - Sleep apnea, unspecified Qualifiers: Sleep apnea type: obstructive Qualified Code(s): G47.33 - Obstructive sleep apnea (adult) (pediatric) Medications at Discharge Home Medications pramipexole 1.5 mg PO QHS 06/12/14 trazodone 100 mg PO QHS 06/12/14 ropinirole 2 mg PO QHS 10/20/15 albuterol sulfate 1 inhaler INHALATION Q4H PRN 07/01/16 atorvastatin 20 mg PO QHS 07/01/16 metformin 500 mg PO DAILY 08/25/20 umeclidinium 62.5 mcg/actuation blister powder for inhalation 1 puff INHALATION DAILY 08/29/20 fluticasone furoate-vilanterol 1 puff INHALATION DAILY 10/15/20 amlodipine 5 mg PO DAILY 03/17/21 apixaban 5 mg PO BID 03/17/21 benzonatate 100 - 200 mg PO TID PRN 03/17/21 furosemide 20 mg PO DAILY 03/17/21 losartan 50 mg PO DAILY 03/17/21 prednisone 40 mg PO DAILY 03/17/21 sertraline 50 mg PO DAILY 03/17/21 Hospital Course Operations None Procedures None Summary of Care Provided Minutes Spent on Discharge: 35 Hospital Course: Per HPI: AVE ANNE, is a 70 F with a significant history of 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 Shortness of breath is at rest and increases markedly with mild exertion. She went to the urgent care 3 days before presentation. Chest x-ray and Covid screen at the urgent care was negative. Patient was started on a prednisone for COPD as the patient. 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 She was told that she should come to the hospital because of the severity of her symptoms. Hospital Course: 1. Acute exacerbation of COPD/tobacco abuse/history of lung cancer status post lobectomy/WAM-23-wtcm-old female presented to the hospital with a COPD exacerbation. She had been started on prednisone as an outpatient for a few days prior to admission but was not getting any better and her shortness of breath follicles getting worse so she presented to the hospital and admitted for an exacerbation. She feels much better today, she is back down to room air and went down to 89% with ambulation though that was transient and she recovered to 92. I discussed with her that it would be best if she stayed until tomorrow but she really wants to go home today. I discussed with her that if she has any worsening shortness of breath to come back to the hospital. She is to continue the prednisone that she has at home. She will need to follow-up with her PCP in 3 to 5 days. 2. Type 2 diabetes, hypertension, hyperlipidemia, history of PE, restless leg syndrome, depression, anxiety all chronic medical conditions which complicate her care. Her home medications were continued where appropriate Weight / BMI Weight Weight: 200 lb 13.458 oz Body Mass Index (BMI) 35.6 ABG / Lab / Microbiology Data Result Diagrams: 03/18/21 05:32 03/18/21 05:32 Laboratory: Laboratory Results - last 24 hr 03/17/21 17:30: Lactic Acid 2.4 H* 03/17/21 17:50: Total Bilirubin 0.20, Direct Bilirubin 0.07, AST 11 L, ALT 19, Alkaline Phosphatase 132 H, Total Protein 7.9, Albumin 3.6, Globulin 4.3 H 03/17/21 17:50: WBC 12.0 H, RBC 4.61, Hgb 13.4, Hct 42.1, MCV 91.3, MCH 29.1, MCHC 31.8 L, RDW Std Deviation 47.7 H, RDW Coeff of Doretha 14.4, Plt Count 369, MPV 9.6, Immature Gran % (Auto) 0.500, Neut % (Auto) 85.9 H, Lymph % (Auto) 10.4 L, [place] % (Auto) 2.9, Eos % (Auto) 0.0, Baso % (Auto) 0.3, Absolute Neuts (auto) 10.3 H, Absolute Lymphs (auto) 1.25, Nucleated RBC % 0 03/17/21 17:50: PT 13.4, INR 1.1, APTT 29.7 03/17/21 17:50: Sodium 138, Potassium 3.4 L, Chloride 103, Carbon Dioxide 27.0, Anion Gap 8, BUN 20 H, Creatinine 0.93, Estim Creat Clear Calc 45.23, Est GFR (MDRD) Af Amer 77, Est GFR (MDRD) Non-Af 63, BUN/Creatinine Ratio 21.6 H, Glucose 266 H, Calcium 8.8, Troponin I High Sens 5.2 03/17/21 22:20: Lactic Acid 2.5 H* 03/17/21 22:35: POC Glucose 200 H 03/18/21 05:32: WBC 12.3 H, RBC 4.43, Hgb 12.9, Hct 40.4, MCV 91.2, MCH 29.1, MCHC 31.9 L, RDW Std Deviation 47.5 H, RDW Coeff of Doretha 14.2, Plt Count 333, MPV 9.8, Immature Gran % (Auto) 0.900, Neut % (Auto) 86.6 H, Lymph % (Auto) 10.8 L, [place] % (Auto) 1.5, Eos % (Auto) 0.0, Baso % (Auto) 0.2, Absolute Neuts (auto) 10.6 H, Absolute Lymphs (auto) 1.33, Nucleated RBC % 0 03/18/21 05:32: Sodium 137, Potassium 3.8, Chloride 105, Carbon Dioxide 24.0, Anion Gap 8, BUN 18, Creatinine 0.64, Estim Creat Clear Calc 42.07, Est GFR (MDRD) Af Amer 118, Est GFR (MDRD) Non-Af 98, BUN/Creatinine Ratio 28.3 H, Glucose 183 H, Calcium 8.5 03/18/21 12:16: POC Glucose 136 H Microbiology: Microbiology 03/17/21 17:25 Mucosa - Nose SARS-CoV-2 Antigen (Rapid) - Final Radiography Diagnostic Testing: Radiology Impression Chest X-Ray 03/17/21 17:55 IMPRESSION: No radiographic evidence of acute cardiopulmonary disease. at 1841 Reported and signed by: Kd Bone MD Electronically Signed: Kd Bone MD at 18:40 EDT Tel , Service support , D/C Instructions Discharge Diet: Low fat / Low cholesterol, 1800 Calorie Control Diet and Carb Control Diet Call your doctor if you observe: Fever of 101 or Higher, Shortness of breath, Dizziness, Swelling in the ankles, Chest pain and Increased palpitations (irregular heartbeat) Meaningful Use Info Meaningful Use Diagnoses (Choose all that apply): None applicable Discharge Plan Admission Admit Date/Time: 03/17/21 19:28 Attending Provider: Amauri Patterson Primary Care Provider: Heladio Edwards Instructions Patient Instructions: COPD Diabetes, COPD Meds Discharge Orders/Prescriptions Prescriptions: Continued umeclidinium 62.5 mcg/actuation blister with device 1 puff INHALATION DAILY RF: 0 trazodone 100 MG tablet 100 mg PO QHS RF: 0 pramipexole 1.5 MG tablet 1.5 mg PO QHS RF: 0 ropinirole 2 MG tablet 2 mg PO QHS RF: 0 atorvastatin 20 MG tablet 20 mg PO QHS RF: 0 albuterol sulfate 2.5 MG/3 ML solution for nebulization 1 inhaler INHALATION Q4H PRN (Reason: Sob &/Or Wheezing) RF: 0 metformin 500 MG tablet 500 mg PO DAILY RF: 0 fluticasone furoate-vilanterol 1 EACH blister with device 1 puff INHALATION DAILY RF: 0 prednisone 20 mg tablet 40 mg PO DAILY RF: 0 benzonatate 100 mg capsule 100 - 200 mg PO TID PRN (Reason: cough) RF: 0 losartan 50 mg tablet 50 mg PO DAILY RF: 0 furosemide 20 mg tablet 20 mg PO DAILY RF: 0 sertraline 50 mg tablet 50 mg PO DAILY RF: 0 amlodipine 5 MG tablet 5 mg PO DAILY RF: 0 apixaban 5 MG tablet 5 mg PO BID RF: 0 Referrals / Follow Up: Heladio Edwards MD [Primary Care Provider] - In 1 Week Disposition Disposition (needs filled in before D/C Order can be placed): Home, Self Care Charges/Coding Visit Charges Inpatient E&M: 33306 Disch Hosp
--- NOTE | 2021-03-20 14:10 | CASEMGMT ---
CONNOR ZIMMERMAN Discharge Follow Up Phone Call: DINO: 12 Strata:3 Call Date: 03/20/21 Discharge Date: 03/18/21 Time of Call: 1407 Duration: 3 min Admitting Dx: COPD exac CONNOR ZIMMERMAN completed follow up phone call after recent hospitalization. Pt states she was feeling well the day she was dc'd but now it has all gone down hill. She states her friend is taking her to a PCP appt this afternoon. Pt denies having a pulse ox but states she can order one out of the catalog from [employer] for free. Encouraged her to do this. She denies any questions or concerns regarding her medications. Pt has no further questions or concerns at this time.
== END 2021-03-18 16:38 | disposition home or self-care (01) | DRG 192 ==
LOC: ED 17:31 → MS3 19:41
PROVIDERS: Admitting Provider Hospitalist; Emergency Provider Emergency Medicine; PCP Family Medicine; Visit Provider Family Medicine
DX: J44.1 Chronic obstructive pulmonary disease with (acute) exacerbation (principal); G47.33 Obstructive sleep apnea (adult) (pediatric); E11.65 Type 2 diabetes mellitus with hyperglycemia; I10 Essential (primary) hypertension; E78.5 Hyperlipidemia, unspecified; G25.81 Restless legs syndrome; G89.29 Other chronic pain; F32.9 Major depressive disorder, single episode, unspecified; F41.9 Anxiety disorder, unspecified; F17.210 Nicotine dependence, cigarettes, uncomplicated; Z90.2 Acquired absence of lung [part of]; Z79.01 Long term (current) use of anticoagulants; Z79.84 Long term (current) use of oral hypoglycemic drugs; Z79.899 Other long term (current) drug therapy; Z86.711 Personal history of pulmonary embolism; Z85.118 Personal history of other malignant neoplasm of bronchus and lung
CPT/HCPCS: 36415; 71045; 80048; 80076; 82962; 83605; 84484; 85025; 85610; 85730; 87040; 87426; 93005; 94640; 94667; 94668; 97162; 97165; 99251; 99285; 99406; J7030; J7050; A4216; G0463

== ENCOUNTER 2021-03-26 22:41 | Emergency (ER) | payer MEDICARE, MEDICAID, SELFPAY ==
[2021-03-17 21:08] VITALS: BMI 35.6
[2021-03-26 22:41] VITALS: BP 129/67; PULSE 87; RESP 16; TEMP 36.6; O2SAT 99; BMI 34.5
--- NOTE | 2021-03-27 00:07 | ED.VIS.BACK ---
HPI History of Present Illness Chief Complaint: Back Informant: patient Onset/Context/Timing Onset: Days (4) Context: Gradual Onset Timing: Continuous Quality: - (Spasms) Location: Thoracic Worsened by: improves with Movement Relieved by: Remaining Still Associated Symptoms Associated Symptoms: Negative for Numbness, Tingling, Radiation to Right Leg, Radiation to Left Leg, Fever, Dysuria, Urinary Retention, Urinary Incontinence, Constipation and Fecal Incontinence Narrative Narrative: Patient presents with back pain that has been constant for the past 4 days. Patient states she feels like there are spasms in her back. Patient states these are worse with movement. Patient states she was recently admitted to the hospital for COPD exacerbation. Patient was getting injections of morphine while she was in the hospital. Patient states she was given a prescription for Flexeril. Patient states this has not been helping at home. Patient denies any trauma or injury. PFSH PFSH Medical History Asthma Chronic pain COPD (chronic obstructive pulmonary disease) Diabetes Diabetes DVT (deep venous thrombosis) Knee arthropathy Lung cancer Pulmonary embolism Smoker Home Medications pramipexole 1.5 mg PO QHS 06/12/14 [History Last Taken 03/16/21] trazodone 100 mg PO QHS 06/12/14 [History Last Taken 05/28/16] ropinirole 2 mg PO QHS 10/20/15 [History Last Taken 03/16/21] albuterol sulfate 1 inhaler INHALATION Q4H PRN 07/01/16 [History Last Taken 03/17/21] atorvastatin 20 mg PO QHS 07/01/16 [History Last Taken 03/16/21] metformin 500 mg PO DAILY 08/25/20 [History Last Taken 03/17/21] umeclidinium 62.5 mcg/actuation blister powder for inhalation 1 puff INHALATION DAILY 08/29/20 [History Last Taken 03/17/21] fluticasone furoate-vilanterol 1 puff INHALATION DAILY 10/15/20 [History Last Taken 03/17/21] amlodipine 5 mg PO DAILY 03/17/21 [History Last Taken 03/17/21] apixaban 5 mg PO BID 03/17/21 [History Last Taken 03/17/21] benzonatate 100 - 200 mg PO TID PRN 03/17/21 [History Last Taken Unknown] furosemide 20 mg PO DAILY 03/17/21 [History Last Taken 03/16/21] losartan 50 mg PO DAILY 03/17/21 [History Last Taken Unknown] prednisone 40 mg PO DAILY 03/17/21 [History Last Taken 03/17/21] sertraline 50 mg PO DAILY 03/17/21 [History Last Taken 03/17/21] oxycodone-acetaminophen 1 tab PO Q6H PRN PRN 3 Days #12 tablet 03/27/21 [Rx Last Taken Unknown] Allergy/AdvReac Type Severity Reaction Status Date / Time bupropion HCl Allergy Hives Verified 03/17/21 16:31 [From Wellbutrin] gabapentin [From Neurontin] Allergy Hives Verified 03/17/21 16:31 moxifloxacin HCl Allergy Hives Verified 03/17/21 16:31 [From Avelox] Family History Other COPD (chronic obstructive pulmonary disease) Cancer Diabetes Heart disease Surgical History H/O hand surgery H/O knee surgery H/O: hysterectomy Status post lobectomy of lung Social History Smoking Status: Current every day smoker tobacco type: cigarettes substance use type: does not use ROS ROS ED Constitutional Constitutional ED: Denies chills or fever(s) Eyes Eyes: Denies blurry vision or change in vision ENT ENT ED: Denies rhinorrhea or sore throat Cardiovascular Cardiovascular: Denies chest pain or palpitations Respiratory/Chest Respiratory/Chest: Denies cough or dyspnea Gastrointestinal Gastrointestinal: Denies nausea or vomiting Genitourinary Genitourinary ED: Denies dysuria or hematuria Musculoskeletal Musculoskeletal: Reports back pain; Denies neck pain Integumentary Denies abscess or rash Neurologic Neurologic: Denies headache(s) or weakness Allergic/Immunologic Allergic/Immunologic ED: Denies mouth swelling or urticaria EXAM Physical Exam Const Vital Signs: 03/26/21 22:41 Temperature 97.8 F Temperature Source Temporal Pulse Rate 87 Respiratory Rate 16 Blood Pressure 129/67 H Blood Pressure Mean 87 Pulse Ox 99 Oxygen Delivery Method Room Air Positive well nourished, well developed and obese General Appearance ED: well developed Nutritional Appearance: obese Neck supple and no JVD Resp normal respiratory effort and clear to auscultation bilaterally Cardio regular rate and regular rhythm GI normal to inspection, nondistended, normoactive bowel sounds Back/Spine no thoracic nor lumbar tenderness Lumbar Spine / Lower Back: ROM limited Neuro oriented x3 and no sensory deficits noted Sensorium / Orientation: alert Motor Exam: strength 5/5 throughout MDM MDM MDM Narrative Medical decision making narrative: Patient was given a dose of morphine here. Patient was still having persistent pain. Patient was given a dose of Dilaudid. X-rays of the thoracic spine were obtained. There are 3 views. On my interpretation, there are degenerative changes. There is no acute fracture noted. Radiologist also interpreted the x-rays. She noted that she cannot exclude minimal compression fractures of T8 and T9 of indeterminate age. Patient is feeling better on reevaluation. Patient was given a prescription for Percocet to take at home. Patient was instructed to use ice to the area. Patient was instructed to follow-up with her primary care physician in 3-5 days. Patient and family understood and were agreeable with the plan. All questions were answered. Radiography Diagnostic Testing: Radiology Impression Thoracic Spine X-Ray 03/27/21 00:56 IMPRESSION: Diffuse osteopenia along with degenerative disease as described. Cannot exclude minimal compression fractures of T8 and T9 of indeterminate age. Normal alignment. Electronically Signed: Amanda Sotomayor MD at 1:53 EDT , Service support , Discharge Plan Triage Chief Complaint: Back ED Provider: Benjamin Metcalf Dx/Rx/DC Orders Clinical Impression: Acute back pain Instructions: ED Back and Neck Pain, General Prescriptions: New oxycodone-acetaminophen [oxycodone-acetaminophen] 1 TABLET tablet 1 tab PO Q6H PRN PRN (Reason: Pain) 3 Days Qty: 12 RF: 0 No Action umeclidinium 62.5 mcg/actuation blister with device 1 puff INHALATION DAILY RF: 0 trazodone 100 MG tablet 100 mg PO QHS RF: 0 pramipexole 1.5 MG tablet 1.5 mg PO QHS RF: 0 ropinirole 2 MG tablet 2 mg PO QHS RF: 0 atorvastatin 20 MG tablet 20 mg PO QHS RF: 0 albuterol sulfate 2.5 MG/3 ML solution for nebulization 1 inhaler INHALATION Q4H PRN (Reason: Sob &/Or Wheezing) RF: 0 metformin 500 MG tablet 500 mg PO DAILY RF: 0 fluticasone furoate-vilanterol 1 EACH blister with device 1 puff INHALATION DAILY RF: 0 prednisone 20 mg tablet 40 mg PO DAILY RF: 0 benzonatate 100 mg capsule 100 - 200 mg PO TID PRN (Reason: cough) RF: 0 losartan 50 mg tablet 50 mg PO DAILY RF: 0 furosemide 20 mg tablet 20 mg PO DAILY RF: 0 sertraline 50 mg tablet 50 mg PO DAILY RF: 0 amlodipine 5 MG tablet 5 mg PO DAILY RF: 0 apixaban 5 MG tablet 5 mg PO BID RF: 0 Primary Care Provider: Heladio Edwards Referrals: Heladio Edwards MD [Primary Care Provider] - 3-5 Days Disposition Disposition: Home, Self Care
[2021-03-27] MEDS: Morphine 4 MG/ML Syringe IM (00:12)
--- NOTE | 2021-03-27 00:56 | RAD_ITS ---
STUDY: X-RAY - THORACIC SPINE REASON FOR EXAM: Female, 70 years old. Injury/Pain TECHNIQUE: 3 view(s) of the thoracic spine were obtained. COMPARISON: None. FINDINGS: Normal kyphosis of the thoracic spine. There is no substantial scoliosis. There is demineralization of the thoracic spine with endplate spondylosis. There is multilevel disc space narrowing of the thoracic spine. There is minimal wedging of T8 and T9 vertebral body which may indicate mild compression fractures, exact age indeterminate. Atherosclerotic disease of aorta are seen. RAD/Thoracic Spine 3 Views IMPRESSION: Diffuse osteopenia along with degenerative disease as described. Cannot exclude minimal compression fractures of T8 and T9 of indeterminate age. Normal alignment. Electronically Signed: Amanda Sotomayor MD at 1:53 EDT , Service support ,
[2021-03-27] MEDS: HYDROmorphone 0.5 MG/0.5 ML SYRINGE IM (01:03)
== END 2021-03-27 02:42 | disposition home or self-care (01) ==
PROVIDERS: Emergency Provider Emergency Medicine; PCP Family Medicine
DX: M54.6 Pain in thoracic spine (principal); E11.9 Type 2 diabetes mellitus without complications; J44.9 Chronic obstructive pulmonary disease, unspecified; F17.210 Nicotine dependence, cigarettes, uncomplicated; E66.9 Obesity, unspecified; Z68.34 Body mass index [BMI] 34.0-34.9, adult; Z79.84 Long term (current) use of oral hypoglycemic drugs; Z79.01 Long term (current) use of anticoagulants; Z79.899 Other long term (current) drug therapy; Z86.711 Personal history of pulmonary embolism; Z86.718 Personal history of other venous thrombosis and embolism
CPT/HCPCS: 72072; 96372; 99282

== ENCOUNTER 2021-03-29 15:54 | Emergency (ER) | payer MEDICARE, MEDICAID, SELFPAY ==
[2021-03-29 15:55] VITALS: BP 123/54; PULSE 89; RESP 16; TEMP 36.6; O2SAT 98; BMI 36.7
--- NOTE | 2021-03-29 16:56 | EDS_ITS ---
HPI History of Present Illness Chief Complaint: Back Narrative Narrative: 70-year-old female presenting with back pain. Patient has been seen previously for this and has known compression fractures of T8-T9. Patient also was seen Saturday for similar pain and had a CT scan done which showed similar compression deformities. Patient has not been referred to orthopedic spine or spinal surgeon. Patient states that she saw her skoog operator yesterday who did review the CT and felt that the compression fracture is likely the source of her pain. Patient has been on [place] and oxycodone outpatient without relief. She states that she received morphine in the ER previously which did not help. She states the only thing that helps her pain is Dilaudid. Patient has no loss of bladder or bowel control. No urinary tension. No saddle paresthesia. Denies any new pain and states this is been constant and in the same region peer PFSH PFSH Medical History Asthma Chronic pain COPD (chronic obstructive pulmonary disease) Diabetes Diabetes DVT (deep venous thrombosis) Knee arthropathy Lung cancer Pulmonary embolism Smoker Home Medications pramipexole 1.5 mg PO QHS 06/12/14 [History Last Taken 03/16/21] trazodone 100 mg PO QHS 06/12/14 [History Last Taken 05/28/16] ropinirole 2 mg PO QHS 10/20/15 [History Last Taken 03/16/21] albuterol sulfate 1 inhaler INHALATION Q4H PRN 07/01/16 [History Last Taken 03/17/21] atorvastatin 20 mg PO QHS 07/01/16 [History Last Taken 03/16/21] umeclidinium 62.5 mcg/actuation blister powder for inhalation 1 puff INHALATION DAILY 08/29/20 [History Last Taken 03/17/21] fluticasone furoate-vilanterol 1 puff INHALATION DAILY 10/15/20 [History Last Taken 03/17/21] amlodipine 5 mg PO DAILY 03/17/21 [History Last Taken 03/17/21] apixaban 5 mg PO BID 03/17/21 [History Last Taken 03/17/21] benzonatate 100 - 200 mg PO TID PRN 03/17/21 [History Last Taken Unknown] furosemide 20 mg PO DAILY 03/17/21 [History Last Taken 03/16/21] losartan 50 mg PO DAILY 03/17/21 [History Last Taken Unknown] prednisone 40 mg PO DAILY 03/17/21 [History Last Taken 03/17/21] sertraline 50 mg PO DAILY 03/17/21 [History Last Taken 03/17/21] oxycodone-acetaminophen 1 tab PO Q6H PRN PRN 3 Days #12 tablet 03/27/21 [Rx Last Taken Unknown] Allergy/AdvReac Type Severity Reaction Status Date / Time bupropion HCl Allergy Hives Verified 03/29/21 15:58 [From Wellbutrin] gabapentin [From Neurontin] Allergy Hives Verified 03/29/21 15:58 moxifloxacin HCl Allergy Hives Verified 03/29/21 15:58 [From Avelox] Family History Other COPD (chronic obstructive pulmonary disease) Cancer Diabetes Heart disease Surgical History H/O hand surgery H/O knee surgery H/O: hysterectomy Status post lobectomy of lung Social History Smoking Status: Current every day smoker tobacco type: cigarettes substance use type: does not use ROS ROS ED Constitutional Constitutional ED: Denies fever(s), subjective or sweats Eyes Eyes: Denies blurry vision or diplopia ENT ENT ED: Denies rhinorrhea or sore throat Cardiovascular Cardiovascular: Denies chest pain, palpitations or racing heartbeat Respiratory/Chest Respiratory/Chest: Denies dyspnea or sputum Gastrointestinal Gastrointestinal: Denies abdominal pain, nausea or vomiting Genitourinary Genitourinary ED: Denies dysuria, hematuria or urinary frequency Musculoskeletal Musculoskeletal: Reports back pain; Denies neck pain Integumentary Denies Abrasions or rash Neurologic Neurologic: Denies headache(s) or paresthesias Psychiatric Psychiatric: Denies anxiety or depression EXAM Physical Exam Const Vital Signs: 03/29/21 15:55 03/29/21 19:55 03/29/21 21:56 Temperature 97.9 F Temperature Source Oral Pulse Rate 89 78 69 Respiratory Rate 16 16 15 Blood Pressure 123/54 H 122/90 H Blood Pressure Mean 77 100 Pulse Ox 98 96 99 Oxygen Delivery Method Room Air Room Air Positive obese General Appearance ED: Negative for pallor Nutritional Appearance: obese HEENT Reports moist mucous membranes Negative for trauma Eyes PERRL and EOMs intact bilaterally Resp normal respiratory effort and clear to auscultation bilaterally Cardio regular rate and regular rhythm Back/Spine Thoracic Spine / Upper Back: ROM limited, pain with ROM and thoracic spinal tenderness T8 and T9 Extremity normal to inspection General Extremety ED: Negative for edema General Extremity: Negative for edema Neuro oriented x3 and no sensory deficits noted Sensorium / Orientation: alert Motor Exam: strength 5/5 throughout Psych mental status grossly normal Skin no rashes or lesions noted and no wounds General Skin Exam: Negative for jaundice or pallor MDM MDM MDM Narrative Medical decision making narrative: Patient presenting with back pain which has been worked up twice recently. She did x-ray and CT of the spine and shows T8- T9 compression deformities. I was unable to review the CT in [facility] however the patient and her family report that this is what the findings were. Patient has a leukocytosis of 17.6 also states has been on steroids a lot recently. There does not appear to be a left shift. I did check a urinalysis which is negative for infection. Renal function and electrolytes are normal. Chest x- ray on my interpretation shows no acute cardiopulmonary process. Patient was discussed with Dr. Mcbride who felt that he could get the patient in tomorrow to the office to help her with her pain. She states that she has seen him before and is amenable to this plan. She has oxycodone at home and will take this. She was given Dilaudid for pain in the ER and was given 1 dose prior to discharge. Patient is discharged home in stable condition. Impression: 1. T8-T9 compression deformities 2. Leukocytosis Lab Data Labs: Laboratory Results - last 24 hr 03/29/21 03/29/21 03/29/21 17:20 17:20 18:15 WBC 17.6 H RBC 4.46 Hgb 12.9 Hct 40.9 MCV 91.7 MCH 28.9 MCHC 31.5 L RDW Std Deviation 49.3 H RDW Coeff of Doretha 14.7 H Plt Count 301 MPV 10.2 Immature Gran % (Auto) 1.000 H Neut % (Auto) 67.2 Lymph % (Auto) 24.4 [place] % (Auto) 6.3 Eos % (Auto) 0.8 Baso % (Auto) 0.3 Absolute Neuts (auto) 11.8 H Absolute Lymphs (auto) 4.28 Nucleated RBC % 0 Sodium 139 Potassium 3.7 Chloride 104 Carbon Dioxide 29.0 Anion Gap 6 BUN 35 H Creatinine 0.71 Estim Creat Clear Calc 42.07 Est GFR (MDRD) Af Amer 103 Est GFR (MDRD) Non-Af 85 BUN/Creatinine Ratio 49.0 H Glucose 119 H Calcium 9.3 Urine Color Yellow Urine Clarity Clear Urine pH 6.0 Ur Specific [place] 1.020 Urine Protein Negative Urine Glucose (UA) Normal Urine Ketones Negative Urine Occult Blood 10 H Urine Nitrite Negative Urine Bilirubin Negative Urine Urobilinogen Normal Ur Leukocyte Esterase 25 H Urine RBC 0 SEEN Urine WBC 10-25 SEEN Ur Squamous Epith Cells 0-5 SEEN Urine Bacteria 0 SEEN Urine Mucus 0 SEEN Radiography Diagnostic Testing: Radiology Impression Chest X-Ray 03/29/21 19:33 IMPRESSION: No radiographic evidence of acute cardiopulmonary disease. at 2016 Reported and signed by: Geovanni Martin MD Electronically Signed: Geovanni Martin MD at 20:15 EDT Tel , Service support , Discharge Plan Triage Chief Complaint: Back ED Provider: Miles Bernal Dx/Rx/DC Orders Instructions: ED Fracture, Vertebral Compression Prescriptions: No Action umeclidinium 62.5 mcg/actuation blister with device 1 puff INHALATION DAILY RF: 0 trazodone 100 MG tablet 100 mg PO QHS RF: 0 pramipexole 1.5 MG tablet 1.5 mg PO QHS RF: 0 ropinirole 2 MG tablet 2 mg PO QHS RF: 0 atorvastatin 20 MG tablet 20 mg PO QHS RF: 0 albuterol sulfate 2.5 MG/3 ML solution for nebulization 1 inhaler INHALATION Q4H PRN (Reason: Sob &/Or Wheezing) RF: 0 fluticasone furoate-vilanterol 1 EACH blister with device 1 puff INHALATION DAILY RF: 0 prednisone 20 mg tablet 40 mg PO DAILY RF: 0 benzonatate 100 mg capsule 100 - 200 mg PO TID PRN (Reason: cough) RF: 0 losartan 50 mg tablet 50 mg PO DAILY RF: 0 furosemide 20 mg tablet 20 mg PO DAILY RF: 0 sertraline 50 mg tablet 50 mg PO DAILY RF: 0 amlodipine 5 MG tablet 5 mg PO DAILY RF: 0 apixaban 5 MG tablet 5 mg PO BID RF: 0 oxycodone-acetaminophen [oxycodone-acetaminophen] 1 TABLET tablet 1 tab PO Q6H PRN PRN (Reason: Pain) 3 Days Qty: 12 RF: 0 Primary Care Provider: Heladio Edwards Referrals: Anya Mcbride MD [STAFF PHYSICIAN] - As soon as possible Heladio Edwards MD [Primary Care Provider] - Activity Restrictions/Additional Instructions: Dr. Mcbride states that he can see you tomorrow. He will fit you into his office schedule. He said to start calling the office at 8 AM and he will make arrangements that he can get her pain under control. In the meantime usual oxycodone for pain. If her pain becomes intolerable he may return to the ED for repeat evaluation. Disposition Disposition: Home, Self Care Discharge Date/Time: 03/29/21 21:56
[2021-03-29] MEDS: HYDROmorphone 0.5 MG/0.5 ML SYRINGE IV ×3 (17:23→21:46)
[2021-03-29 17:34] LABS: Absolute Lymphocyte Count 4.28 X10^3/uL (0.83-4.51); Absolute Neutrophil Count 11.8 X10^3/uL (2.0-7.7); Basophil# 0.05 X10^3/uL; Basophil% 0.3 % (0-1); Eosinophil# 0.14 X10^3/uL; Eosinophils% 0.8 % (0-5); Hematocrit 40.9 % (37-47); Hemoglobin 12.9 g/dL (12.0-15.0); Lymphocyte # 4.28 X10^3/ul (0.83-4.51); Lymphocyte % 24.4 % (19-41); Mean Corp Hgb Conc 31.5 g/dL (32-36); Mean Corpuscular Hgb 28.9 pg (27.0-32.0); Mean Corpuscular Volume 91.7 fL (81-99); Mean Platelet Vol. 10.2 fl (6.2-12.0); Monocyte% 6.3 % (0-10); NRBC Flagged by Analyzer 0 % (0-5); Neutrophil # 11.82 X10^3/uL (2.7-7.7); Neutrophil % 67.2 % (47-70); Platelet Count 301 K/mm3 (150-450); RBC Distribution Width CV 14.7 % (11.6-14.6); RBC Distribution Width SD 49.3 fl (35.1-43.9); Red Blood Count 4.46 M/mm3 (4.2-5.4); White Blood Count 17.6 K/mm3 (4.4-11.0)
[2021-03-29 17:45] LABS: Anion Gap 6 (5-15); BUN 35 mg/dL (7-18); Calcium,Total 9.3 mg/dL (8.5-10.1); Chloride 104 mmol/L (98-107); Creatinine, Serum 0.71 mg/dL (0.55-1.02); EST Glomerular Filtration Rate 85 mL/min (>60); Est Glom Filt Rate - Afr Amer 103 mL/min (>60); Estimated Creatinine Clearance 42.07 ml/min; Glucose 119 mg/dL (74-106); Potassium 3.7 mmol/L (3.5-5.1); Sodium Level 139 mmol/L (136-145)
[2021-03-29 18:21] LABS: Bacteria 0 SEEN /hpf (None Seen); Mucous, Urine 0 SEEN /hpf (<or=2+); Red Blood Cells-Urine 0 SEEN /hpf (0-5)
[2021-03-29 18:54] LABS: Color, Urine Yellow (Yellow); Glucose, Dipstick Normal (Normal); Ketone-Dipstick Negative (Negative); Leukocyte Esterase-Dipstick 25 /ul (Negative); Nitrite-Dipstick Negative (Negative); Occult Blood-Urine 10 /ul (Negative); Protein-Dipstick Negative (Negative); Urine Bilirubin Dipstick Negative (Negative); Urine Clarity Clear (Clear); Urine Urobilinogen Normal (Normal)
[2021-03-29 19:13] LABS: Squamous Epithelial Cells - UA 0-5 SEEN /hpf (5-10); White Blood Cells 10-25 SEEN /hpf (0-5)
--- NOTE | 2021-03-29 19:33 | RAD_ITS ---
HISTORY: Leukocytosis EXAMINATION/TECHNIQUE: XR Chest 1 View: Portable upright AP chest x-ray COMPARISON: 03/17/21 FINDINGS: LINES/DEVICES: None. LUNGS: No consolidation, edema or effusion. No pneumothorax. MEDIASTINUM AND CARDIOVASCULAR STRUCTURES: Cardiac silhouette not enlarged. Central airways and mediastinal contour are unremarkable. BONES AND SOFT TISSUES: No acute bony abnormalities. RAD/Chest 1 View (Portable) IMPRESSION: No radiographic evidence of acute cardiopulmonary disease. at 2016 Reported and signed by: Geovanni Martin MD Electronically Signed: Geovanni Martin MD at 20:15 EDT Tel , Service support ,
[2021-03-29 19:55] VITALS: BP 122/90; PULSE 78; RESP 16; O2SAT 96
[2021-03-29 21:56] VITALS: PULSE 69; RESP 15; O2SAT 99
== END 2021-03-29 21:56 | disposition home or self-care (01) ==
PROVIDERS: Emergency Provider Student in an Organized Health Care Education/Training Program; PCP Family Medicine
DX: S22.069A Unspecified fracture of T7-T8 vertebra, initial encounter for closed fracture (principal); S22.079A Unspecified fracture of T9-T10 vertebra, initial encounter for closed fracture; X58.XXXA Exposure to other specified factors, initial encounter; Y93.9 Activity, unspecified; Y92.9 Unspecified place or not applicable; Y99.9 Unspecified external cause status; D72.829 Elevated white blood cell count, unspecified; J44.9 Chronic obstructive pulmonary disease, unspecified; F17.210 Nicotine dependence, cigarettes, uncomplicated; Z79.01 Long term (current) use of anticoagulants; Z79.899 Other long term (current) drug therapy; Z86.711 Personal history of pulmonary embolism; Z86.718 Personal history of other venous thrombosis and embolism
CPT/HCPCS: 71045; 80048; 81001; 85025; 96374; 96376; 99285; A4216

== ENCOUNTER 2021-04-08 17:09 | Emergency (ER) | payer MEDICARE, MEDICAID, SELFPAY ==
[2021-04-08 17:11] VITALS: BP 128/64; PULSE 74; RESP 18; TEMP 36.9; O2SAT 90; BMI 36.8
[2021-04-08 17:23] VITALS: RESP 20; O2SAT 99
--- NOTE | 2021-04-08 17:26 | EDS_ITS ---
HPI History of Present Illness Chief Complaint: Back Informant: patient Onset/Context/Timing Onset: Today Context: Gradual Onset Timing: Continuous Quality: Sharp Location: Thoracic Worsened by: improves with Movement and - (Coughing) Relieved by: Nothing Associated Symptoms Associated Symptoms: Negative for Numbness, Tingling, Radiation to Right Leg, Radiation to Left Leg, Fever, Abdominal Pain, Dysuria, Unable to Ambulate, Unable to Transfer, Urinary Retention, Urinary Incontinence, Constipation and Fecal Incontinence Narrative Narrative: Patient presents with back pain that became worse today. Patient is a history of chronic back pain from compression fracture in T8 and T9. Patient states she is scheduled for kyphoplasty this week. Patient states she has stop ped her Eliquis because of this. Patient states her pain is sharp and is worse with movement and with coughing. Patient denies any radiation of the pain. Patient denies any bowel or bladder changes. Patient denies any saddle anesthesia. Patient admits to coughing up some white sputum. Patient denies any fevers or chills. Patient does admit to some mild shortness of breath. Patient states she does wear oxygen and BiPAP at night. PFSH PFSH Medical History Asthma Chronic pain COPD (chronic obstructive pulmonary disease) Diabetes Diabetes DVT (deep venous thrombosis) Knee arthropathy Lung cancer Pulmonary embolism Smoker Home Medications pramipexole 1.5 mg PO QHS 06/12/14 [History Last Taken 03/16/21] trazodone 100 mg PO QHS 06/12/14 [History Last Taken 05/28/16] ropinirole 2 mg PO QHS 10/20/15 [History Last Taken 03/16/21] albuterol sulfate 1 inhaler INHALATION Q4H PRN 07/01/16 [History Last Taken 03/17/21] atorvastatin 20 mg PO QHS 07/01/16 [History Last Taken 03/16/21] umeclidinium 62.5 mcg/actuation blister powder for inhalation 1 puff INHALATION DAILY 08/29/20 [History Last Taken 03/17/21] fluticasone furoate-vilanterol 1 puff INHALATION DAILY 10/15/20 [History Last Taken 03/17/21] amlodipine 5 mg PO DAILY 03/17/21 [History Last Taken 03/17/21] apixaban 5 mg PO BID 03/17/21 [History Last Taken 03/17/21] benzonatate 100 - 200 mg PO TID PRN 03/17/21 [History Last Taken Unknown] furosemide 20 mg PO DAILY 03/17/21 [History Last Taken 03/16/21] losartan 50 mg PO DAILY 03/17/21 [History Last Taken Unknown] prednisone 40 mg PO DAILY 03/17/21 [History Last Taken 03/17/21] sertraline 50 mg PO DAILY 03/17/21 [History Last Taken 03/17/21] oxycodone-acetaminophen 1 tab PO Q6H PRN PRN 3 Days #12 tablet 03/27/21 [Rx Last Taken Unknown] azithromycin 250 mg PO DAILY 04/08/21 [History Last Taken Unknown] cephalexin 500 mg PO Q6 #20 capsule 04/08/21 [Rx Last Taken Unknown] cyclobenzaprine 10 mg PO TID 04/08/21 [History Last Taken Unknown] Allergy/AdvReac Type Severity Reaction Status Date / Time bupropion HCl Allergy Hives Verified 04/08/21 17:10 [From Wellbutrin] gabapentin [From Neurontin] Allergy Hives Verified 04/08/21 17:10 moxifloxacin HCl Allergy Hives Verified 04/08/21 17:10 [From Avelox] Family History Other COPD (chronic obstructive pulmonary disease) Cancer Diabetes Heart disease Surgical History H/O hand surgery H/O knee surgery H/O: hysterectomy Status post lobectomy of lung Social History Smoking Status: Current every day smoker tobacco type: cigarettes substance use type: does not use ROS ROS ED Constitutional Constitutional ED: Denies chills or fever(s) Eyes Eyes: Denies blurry vision or change in vision ENT ENT ED: Denies rhinorrhea or sore throat Cardiovascular Cardiovascular: Denies chest pain or palpitations Respiratory/Chest Respiratory/Chest: Reports dyspnea and sputum; Denies cough Gastrointestinal Gastrointestinal: Denies nausea or vomiting Genitourinary Genitourinary ED: Denies dysuria or hematuria Musculoskeletal Musculoskeletal: Reports back pain; Denies neck pain Integumentary Denies abscess or rash Neurologic Neurologic: Denies headache(s) or weakness Allergic/Immunologic Allergic/Immunologic ED: Denies mouth swelling or urticaria EXAM Physical Exam Const Vital Signs: 04/08/21 17:11 04/08/21 17:23 04/08/21 17:39 Temperature 98.4 F Temperature Source Oral Pulse Rate 74 Respiratory Rate 18 20 H Respiratory Pattern Blood Pressure 128/64 H Blood Pressure Mean 85 Pulse Ox 90 99 99 Oxygen Delivery Method Room Air Nasal Cannula Nasal Cannula Oxygen Flow Rate (L/min) 2 2 04/08/21 18:19 04/08/21 20:00 Temperature Temperature Source Pulse Rate 88 71 Respiratory Rate 20 H 18 Respiratory Pattern Normal Blood Pressure 126/59 H Blood Pressure Mean 81 Pulse Ox Oxygen Delivery Method Oxygen Flow Rate (L/min) Positive well nourished, well developed and obese General Appearance ED: well developed Nutritional Appearance: obese HEENT Reports moist mucous membranes Neck supple and no JVD Resp normal respiratory effort Auscultation: rhonchi throughout Cardio regular rate and regular rhythm GI normal to inspection, nondistended, normoactive bowel sounds, soft to palpation and non-tender Back/Spine Thoracic Spine / Upper Back: paraspinal muscle tenderness bilateral Lumbar Spine / Lower Back: ROM limited Extremity General Extremety ED: Yes edema General Extremity: edema Neuro oriented x3 and no sensory deficits noted Sensorium / Orientation: alert Motor Exam: strength 5/5 throughout Psych mental status grossly normal MDM MDM MDM Narrative Medical decision making narrative: Patient was given a dose of Dilaudid and Zofran here. Patient was given a DuoNeb aerosol. CBC was normal. Comprehensive metabolic profile was normal. Urinalysis does show leukocyte esterase of 100 with 10-25 white blood cells. Portable 1 view chest x-ray was obtained. On my interpretation, lung moses show left basilar atelectasis. There is normal cardiac silhouette. Bony thorax is normal. There is no acute process noted. Radiologist also interpreted the x-ray and agrees. Patient is feeling better on reevaluation. Patient was given a prescription for Keflex for her urinary tract infection. Patient was given her first dose here. Patient was instructed to follow-up with her primary care physician in 3 to 5 days. Evens coronel understood and was agreeable with the plan. All questions were answered. Lab Data Attestation: I reviewed the patient's lab results. Labs: Laboratory Results - last 24 hr 08/14/21 08/14/21 08/14/21 17:35 17:35 19:46 WBC 7.5 RBC 4.34 Hgb 12.6 Hct 40.0 MCV 92.2 MCH 29.0 MCHC 31.5 L RDW Std Deviation 50.6 H RDW Coeff of Doretha 15.0 H Plt Count 209 MPV 9.7 Immature Gran % (Auto) 0.400 Neut % (Auto) 68.8 Lymph % (Auto) 21.1 [place] % (Auto) 5.7 Eos % (Auto) 3.6 Baso % (Auto) 0.4 Absolute Neuts (auto) 5.2 Absolute Lymphs (auto) 1.59 Nucleated RBC % 0 Sodium 137 Potassium 4.2 Chloride 104 Carbon Dioxide 29.0 Anion Gap 4 L BUN 18 Creatinine 0.74 Estim Creat Clear Calc 42.07 Est GFR (MDRD) Af Amer 99 Est GFR (MDRD) Non-Af 82 BUN/Creatinine Ratio 24.4 H Glucose 142 H Calcium 8.9 Total Bilirubin 0.40 AST 16 ALT 32 Alkaline Phosphatase 107 Total Protein 7.2 Albumin 3.3 Globulin 3.9 Albumin/Globulin Ratio 0.8 L Urine Color Yellow Urine Clarity Clear Urine pH 7.0 Ur Specific [place] 1.015 Urine Protein 15 H Urine Glucose (UA) Normal Urine Ketones Negative Urine Occult Blood Negative Urine Nitrite Negative Urine Bilirubin Negative Urine Urobilinogen 1 H Ur Leukocyte Esterase 100 H Urine RBC 0 SEEN Urine WBC 10-25 SEEN Ur Squamous Epith Cells 5-10 SEEN Urine Bacteria RARE Urine Mucus 0 SEEN Radiography Diagnostic Testing: Radiology Impression Chest X-Ray 04/08/21 18:14 IMPRESSION: No airspace consolidation or pleural effusion. Left lower lobe atelectasis. Electronically Signed: Christian Torre MD ([place]) at 18:31 EDT , Service support , Discharge Plan Triage Chief Complaint: Back ED Provider: Benjamin Metcalf Dx/Rx/DC Orders Clinical Impression: Acute back pain, Urinary tract infection Instructions: ED Back Pain (Acute or Chronic), ED Back and Neck Pain, General, ED CYSTITIS Female Adult Prescriptions: New cephalexin [cephalexin] 500 MG capsule 500 mg PO Q6 Qty: 20 RF: 0 No Action umeclidinium 62.5 mcg/actuation blister with device 1 puff INHALATION DAILY RF: 0 trazodone 100 MG tablet 100 mg PO QHS RF: 0 pramipexole 1.5 MG tablet 1.5 mg PO QHS RF: 0 ropinirole 2 MG tablet 2 mg PO QHS RF: 0 atorvastatin 20 MG tablet 20 mg PO QHS RF: 0 albuterol sulfate 2.5 MG/3 ML solution for nebulization 1 inhaler INHALATION Q4H PRN (Reason: Sob &/Or Wheezing) RF: 0 fluticasone furoate-vilanterol 1 EACH blister with device 1 puff INHALATION DAILY RF: 0 prednisone 20 mg tablet 40 mg PO DAILY RF: 0 benzonatate 100 mg capsule 100 - 200 mg PO TID PRN (Reason: cough) RF: 0 losartan 50 mg tablet 50 mg PO DAILY RF: 0 furosemide 20 mg tablet 20 mg PO DAILY RF: 0 sertraline 50 mg tablet 50 mg PO DAILY RF: 0 amlodipine 5 MG tablet 5 mg PO DAILY RF: 0 apixaban 5 MG tablet 5 mg PO BID RF: 0 oxycodone-acetaminophen [oxycodone-acetaminophen] 1 TABLET tablet 1 tab PO Q6H PRN PRN (Reason: Pain) 3 Days Qty: 12 RF: 0 cyclobenzaprine 10 mg tablet 10 mg PO TID RF: 0 azithromycin 250 mg tablet 250 mg PO DAILY RF: 0 Primary Care Provider: Heladio Edwards Referrals: Heladio Edwards MD [Primary Care Provider] - 3-5 Days
[2021-04-08 17:39] VITALS: O2SAT 99
[2021-04-08 17:43] LABS: Absolute Lymphocyte Count 1.59 X10^3/uL (0.83-4.51); Absolute Neutrophil Count 5.2 X10^3/uL (2.0-7.7); Basophil# 0.03 X10^3/uL; Basophil% 0.4 % (0-1); Eosinophil# 0.27 X10^3/uL; Eosinophils% 3.6 % (0-5); Hemoglobin 12.6 g/dL (12.0-15.0); Lymphocyte # 1.59 X10^3/ul (0.83-4.51); Lymphocyte % 21.1 % (19-41); Mean Corp Hgb Conc 31.5 g/dL (32-36); Mean Corpuscular Volume 92.2 fL (81-99); Mean Platelet Vol. 9.7 fl (6.2-12.0); Monocyte# 0.43 X10^3/uL; Monocyte% 5.7 % (0-10); NRBC Flagged by Analyzer 0 % (0-5); Neutrophil # 5.17 X10^3/uL (2.7-7.7); Neutrophil % 68.8 % (47-70); Platelet Count 209 K/mm3 (150-450); RBC Distribution Width SD 50.6 fl (35.1-43.9); Red Blood Count 4.34 M/mm3 (4.2-5.4); White Blood Count 7.5 K/mm3 (4.4-11.0)
[2021-04-08] MEDS: HYDROmorphone 1 MG/ML Syringe 0.5 MG IV (17:54)
[2021-04-08] MEDS: Ondansetron 4 MG/2 ML Vial IV (17:54)
[2021-04-08] MEDS: Ipratropium/Albuterol Sulfate 3 ML AMPUL.NEB INHALATION (17:56)
[2021-04-08 18:01] LABS: ALB/GLOB Ratio 0.8 RATIO (0.9-2.4); AST(SGOT) 16 U/L (15-37); Alanine Aminotransfer ALT/SGPT 32 U/L (13-56); Albumin, Serum 3.3 g/dL (3.2-5.0); Alkaline Phosphatase 107 U/L (45-117); Anion Gap 4 (5-15); BUN 18 mg/dL (7-18); BUN/Creat Ratio 24.4 RATIO (10-20); Calcium,Total 8.9 mg/dL (8.5-10.1); Chloride 104 mmol/L (98-107); Creatinine, Serum 0.74 mg/dL (0.55-1.02); EST Glomerular Filtration Rate 82 mL/min (>60); Est Glom Filt Rate - Afr Amer 99 mL/min (>60); Estimated Creatinine Clearance 42.07 ml/min; Globulin 3.9 g/dL (2.2-4.2); Glucose 142 mg/dL (74-106); Potassium 4.2 mmol/L (3.5-5.1); Protein, Total 7.2 g/dL (6.4-8.2); Sodium Level 137 mmol/L (136-145)
--- NOTE | 2021-04-08 18:14 | RAD_ITS ---
STUDY: X-RAY CHEST REASON FOR EXAM: Female, 70 years old. Cough TECHNIQUE: AP COMPARISON: 03/29/2021 FINDINGS: EKG leads project over the chest. Mild atelectasis in the left lung base. There is no demonstrated pleural abnormality. Normal size heart. Normal mediastinum and fortino. Normal visualized pulmonary arteries. There is atherosclerotic calcification of the aortic arch with tortuosity. There is demineralization of the osseous structures. Normal visualized ribs, clavicles, and shoulders. There is no demonstrated abnormality of the visualized soft tissue structures of the upper abdomen. RAD/Chest 1 View (Portable) IMPRESSION: No airspace consolidation or pleural effusion. Left lower lobe atelectasis. Electronically Signed: Christian Torre MD ([place]) at 18:31 EDT , Service support ,
[2021-04-08 18:19] VITALS: PULSE 88; RESP 20
[2021-04-08 19:52] LABS: Color, Urine Yellow (Yellow); Glucose, Dipstick Normal (Normal); Ketone-Dipstick Negative (Negative); Leukocyte Esterase-Dipstick 100 /ul (Negative); Mucous, Urine 0 SEEN /hpf (<or=2+); Nitrite-Dipstick Negative (Negative); Occult Blood-Urine Negative /ul (Negative); Protein-Dipstick 15 mg/dl (Negative); Red Blood Cells-Urine 0 SEEN /hpf (0-5); Specific Gravity, Urine 1.015 (1.002-1.030); Urine Bilirubin Dipstick Negative (Negative); Urine Clarity Clear (Clear); Urine Urobilinogen 1 mg/dl (Normal)
[2021-04-08 20:00] VITALS: BP 126/59; PULSE 71; RESP 18
[2021-04-08 20:09] LABS: Bacteria RARE /hpf (None Seen); Squamous Epithelial Cells - UA 5-10 SEEN /hpf (5-10); White Blood Cells 10-25 SEEN /hpf (0-5)
[2021-04-08] MEDS: Cephalexin 500 MG Capsule PO (21:21)
[2021-04-08 21:24] VITALS: PULSE 76; RESP 15; O2SAT 98
== END 2021-04-08 21:25 | disposition home or self-care (01) ==
LOC: ED 17:41
PROVIDERS: Emergency Provider Emergency Medicine; PCP Family Medicine
DX: M54.6 Pain in thoracic spine (principal); G89.29 Other chronic pain; N39.0 Urinary tract infection, site not specified; E66.9 Obesity, unspecified; E11.9 Type 2 diabetes mellitus without complications; J44.9 Chronic obstructive pulmonary disease, unspecified; F17.210 Nicotine dependence, cigarettes, uncomplicated; Z79.01 Long term (current) use of anticoagulants; Z79.899 Other long term (current) drug therapy; Z86.711 Personal history of pulmonary embolism; Z86.718 Personal history of other venous thrombosis and embolism
CPT/HCPCS: 71045; 80053; 81001; 85025; 94640; 96374; 96375; 99285; A4216; J2405

== ENCOUNTER 2021-04-19 20:04 | Observation (INO) | payer MEDICARE, MEDICAID, SELFPAY ==
[2021-04-19 20:05] VITALS: BP 147/73; PULSE 85; RESP 18; TEMP 36.3; O2SAT 99; BMI 34.2
--- NOTE | 2021-04-19 21:18 | EKG12_ITS ---
Test Reason : DIZZY Blood Pressure : / mmHG Vent. Rate : 077 BPM Atrial Rate : 077 BPM P-R Int : 224 ms QRS Dur : 082 ms QT Int : 406 ms P-R-T Axes : 071 030 050 degrees QTc Int : 459 ms Sinus rhythm with marked sinus arrhythmia with 1st degree A-V block Otherwise normal ECG Confirmed by GOSIA RUSHING, JOLLY ([id number]), editor managing newspaper AYANNA LORENZO ([id number]) on 04/24/2021 10:20:40 AM Referred By: STEPHIE Confirmed By:JOLLY ELISE MD
--- NOTE | 2021-04-19 21:19 | CT_ITS ---
STUDY: CT BRAIN WITHOUT CONTRAST REASON FOR EXAM: Female, 70 years old. DIZZINESS RADIATION DOSAGE (If Supplied By Facility): CTDIvol = ( 44.99 ) mGy, DLP = ( 846.73 ) mGycm TECHNIQUE: Transaxial CT imaging of the brain was performed without administration of intravenous contrast material. Individualized dose optimization techniques were used for this CT. COMPARISON: CT brain 08/16/2013 FINDINGS: Normal soft tissue structures. Normal calvarium. Normal size ventricles and extra-axial spaces for the patient''s age. There are areas of decreased attenuation within the white matter tracts of the supratentorial brain, consistent with microvascular disease changes. Normal basal ganglia and thalami. Normal brainstem. Normal cerebellum. There is no intracranial hemorrhage. There are no findings of an acute ischemic infarction. Intracranial atherosclerosis. Normal visualized paranasal sinuses. CT/Brain/Head without Contrast IMPRESSION: Mild nonspecific white matter disease consistent with remote ischemic changes. Electronically Signed: Bora Gordon MD at 22:08 EDT , Service support ,
[2021-04-19 21:35] VITALS: O2SAT 100
[2021-04-19 21:45] LABS: Absolute Neutrophil Count 4.6 X10^3/uL (2.0-7.7); Basophil# 0.03 X10^3/uL; Basophil% 0.4 % (0-1); Eosinophils% 2.8 % (0-5); Hematocrit 40.5 % (37-47); Hemoglobin 12.7 g/dL (12.0-15.0); Lymphocyte % 26.4 % (19-41); Mean Corp Hgb Conc 31.4 g/dL (32-36); Mean Corpuscular Hgb 28.3 pg (27.0-32.0); Mean Corpuscular Volume 90.4 fL (81-99); Mean Platelet Vol. 9.2 fl (6.2-12.0); Monocyte% 6.9 % (0-10); NRBC Flagged by Analyzer 0 % (0-5); Neutrophil # 4.55 X10^3/uL (2.7-7.7); Neutrophil % 63.1 % (47-70); Platelet Count 334 K/mm3 (150-450); RBC Distribution Width CV 14.4 % (11.6-14.6); RBC Distribution Width SD 47.8 fl (35.1-43.9); Red Blood Count 4.48 M/mm3 (4.2-5.4); White Blood Count 7.2 K/mm3 (4.4-11.0)
--- NOTE | 2021-04-19 21:45 | RAD_ITS ---
STUDY: X-RAY CHEST REASON FOR EXAM: Female, 70 years old. Neuro deficit, acute, stroke suspected TECHNIQUE: Single frontal view of the chest. COMPARISON: 04/08/2021. FINDINGS: The lungs are clear and expanded. There is no demonstrated pleural abnormality. Normal size heart. Normal mediastinum and fortino. Normal visualized pulmonary arteries. Normal visualized aortic arch and descending thoracic aorta. Normal visualized thoracic spine. Normal visualized ribs, clavicles, and shoulders. There is no demonstrated abnormality of the visualized soft tissue structures of the upper abdomen. RAD/Chest 1 View IMPRESSION: Normal x-ray examination of the chest. Electronically Signed: Bora Gordon MD at 22:28 EDT , Service support ,
[2021-04-19 21:56] LABS: Prothrombin Time (Protime)PT. 12.6 SECONDS (11.7-14.9)
[2021-04-19 21:57] LABS: Partial Thromboplast Time 32.7 Seconds (24.1-36.2)
[2021-04-19 22:04] LABS: Anion Gap 4 (5-15); BUN 8 mg/dL (7-18); BUN/Creat Ratio 13.5 RATIO (10-20); Calcium,Total 9.6 mg/dL (8.5-10.1); Chloride 104 mmol/L (98-107); Creatinine, Serum 0.59 mg/dL (0.55-1.02); EST Glomerular Filtration Rate 106 mL/min (>60); Est Glom Filt Rate - Afr Amer 128 mL/min (>60); Estimated Creatinine Clearance 42.07 ml/min; Glucose 96 mg/dL (74-106); Potassium 3.5 mmol/L (3.5-5.1); Sodium Level 139 mmol/L (136-145); Troponin-I HS 8 pg/mL (3.0-54.0)
[2021-04-19 22:06] VITALS: BP 172/74; PULSE 91; RESP 22; O2SAT 92
--- NOTE | 2021-04-19 23:47 | HP.PCM_ITS ---
Documented by User: ORA Lofton 04/20/21 00:32 HPI - General General Date of Admission: 04/19/21 Date of Service: 04/19/21 Chief Complaint: Dizziness, Blurry visionPatient is a 70-year-old female who presents with complaints of dizziness and double vision. Patient states the symptoms lasted approximately 2 to 3 minutes but states she continues to feel not right and foggy. Patient denies loss of consciousness and per EMS report patient was alert and oriented upon arrival. Patient denies fever, chills, shortness of breath, chest pain, cough, nausea, vomiting, diarrhea, constipation. 1. Vertigo -Admit to PCU -Brain CT -CBC and CMP daily, labs unremarkable -Vital signs every 4 hours along with NIH stroke scale -PT and OT to eval and treat 2. Hypertension -Continue amlodipine furosemide and losartan -Vital signs per protocol -As needed hydralazine ordered as patient is a hypertensive upon arrival 3. COPD -Currently stable patient reports no increased shortness of breath. Currently on room air -Continue home medication regimen including daily fluticasone, Umeclidinium, and as needed albuterol nebulizer treatments 4. Diabetes mellitus type II -Diet controlled, patient not currently on medication regimen 5. Chronic pain -Continue home medication regimen 6. Tobacco abuse -Inpatient smoking cessation ordered DVT prophylaxis-subcu Lovenox This patient was seen by ORA Lofton under the supervision of Dr. Ashley. HPI Narrative AVE ANNE, is a 70 F who presents with complaints of dizziness and double vision. Patient states the symptoms lasted approximately 2 to 3 minutes but states she continues to feel not right and foggy. Patient denies loss of consciousness and per EMS report patient was alert and oriented upon arrival. Patient denies fever, chills, shortness of breath, chest pain, cough, nausea, vomiting, diarrhea, constipation. PFSH Medical History Asthma Chronic pain COPD (chronic obstructive pulmonary disease) Diabetes Diabetes DVT (deep venous thrombosis) Knee arthropathy Lung cancer Pulmonary embolism Smoker Home Medications pramipexole 1.5 mg PO QHS 06/12/14 [History Last Taken 03/16/21] trazodone 100 mg PO QHS 06/12/14 [History Last Taken 05/28/16] ropinirole 2 mg PO QHS 10/20/15 [History Last Taken 03/16/21] albuterol sulfate 1 inhaler INHALATION Q4H PRN 07/01/16 [History Last Taken 03/17/21] atorvastatin 20 mg PO QHS 07/01/16 [History Last Taken 03/16/21] umeclidinium 62.5 mcg/actuation blister powder for inhalation 1 puff INHALATION DAILY 08/29/20 [History Last Taken 03/17/21] fluticasone furoate-vilanterol 1 puff INHALATION DAILY 10/15/20 [History Last Taken 03/17/21] amlodipine 5 mg PO DAILY 03/17/21 [History Last Taken 03/17/21] benzonatate 100 - 200 mg PO TID PRN 03/17/21 [History Last Taken Unknown] furosemide 20 mg PO DAILY 03/17/21 [History Last Taken 03/16/21] losartan 50 mg PO DAILY 03/17/21 [History Last Taken Unknown] sertraline 50 mg PO DAILY 03/17/21 [History Last Taken 03/17/21] azithromycin 250 mg PO DAILY 04/08/21 [History Last Taken Unknown] cephalexin 500 mg PO Q6 #20 capsule 04/08/21 [Rx Last Taken Unknown] cyclobenzaprine 10 mg PO TID 04/08/21 [History Last Taken Unknown] acetaminophen 2 mg PO TID PRN PRN 04/19/21 [History Last Taken Unknown] calcium carbonate-vitamin D3 [Oyster Shell Calcium-Vit D3] 1 tab PO DAILY 04/19/21 [History Last Taken Unknown] hydrocodone-acetaminophen 1 tab PO BID 04/19/21 [History Last Taken Unknown] ibandronate 150 mg PO QMONTH 04/19/21 [History Last Taken Unknown] Allergy/AdvReac Type Severity Reaction Status Date / Time bupropion HCl Allergy Hives Verified 04/19/21 20:07 [From Wellbutrin] gabapentin [From Neurontin] Allergy Hives Verified 04/19/21 20:07 moxifloxacin HCl Allergy Hives Verified 04/19/21 20:07 [From Avelox] Family History Other COPD (chronic obstructive pulmonary disease) Cancer Diabetes Heart disease Surgical History H/O hand surgery H/O knee surgery H/O: hysterectomy Status post lobectomy of lung Social History Smoking Status: Current every day smoker tobacco type: cigarettes substance use type: does not use ROS Constitutional Constitutional: Denies anorexia, chills, fever(s) or weakness Cardiovascular Cardiovascular: Denies chest pain, edema, palpitations or syncope Respiratory/Chest Respiratory/Chest: Reports cough, shortness of breath with exertion and wheezing Gastrointestinal Gastrointestinal: Denies abdominal pain, constipation, diarrhea, nausea or vomiting Genitourinary Genitourinary: Denies dysuria Musculoskeletal Musculoskeletal: Denies back pain, extremity pain, joint pain, joint stiffness or joint swelling Integumentary Integumentary: Denies dry skin Neurologic Neurologic: Denies abnormal gait, abnormal speech, confusion or dizziness Psychiatric Psychiatric: Denies anxiety or depression Endocrine Endocrinology: Denies change in body appearance Hematologic/Lymphatic Hematologic/Lymphatic: Denies easy bleeding or easy bruising Vital Signs Vital Signs Vital Signs: 04/19/21 20:05 04/19/21 21:35 04/19/21 21:51 Temperature 97.4 F L Temperature Source Temporal Pulse Rate 85 Respiratory Rate 18 Respiratory Effort Normal Respiratory Pattern Normal Blood Pressure 147/73 H Blood Pressure Mean 97 Pulse Ox 99 100 Oxygen Delivery Method Room Air Room Air 04/19/21 22:06 Temperature Temperature Source Pulse Rate 91 Respiratory Rate 22 H Respiratory Effort Respiratory Pattern Blood Pressure 172/74 H Blood Pressure Mean 106 Pulse Ox 92 Oxygen Delivery Method Weight Weight: 193 lb Body Mass Index (BMI) 34.2 Physical Exam Const alert, oriented x3 and no apparent distress General Appearance: cooperative HEENT normocephalic and head/scalp atraumatic Eyes conjunctivae normal and no scleral icterus Neck supple and no JVD General: trachea midline Resp normal respiratory effort and normal air movement Effort and Inspection: tachypneic Auscultation: wheezes expiratory wheezes, posterior and throughout Cardio regular rate, regular rhythm, S1 normal heart sound, S2 normal heart sound and peripheral pulses 2+ throughout GI normal to inspection, nondistended, normoactive bowel sounds, soft to palpation and non-tender Extremity normal capillary refill and no clubbing, cyanosis or edema General Extremity: no tenderness to palpation of joints or extremities Skin General Skin Exam: no breakdown and turgor normal Lesions: no lesions Rashes: no rashes Neuro no focal motor deficits and no sensory deficits noted Neuro Narrative: NIH stroke scale 0 Speech: speech normal Motor Exam: Negative for general weakness Psych thought process normal, cooperative and affect normal Appearance: appropriate Results Lab / Micro Data Result Diagrams: 04/19/21 21:35 04/19/21 21:35 Labs: Laboratory Results - last 24 hr 04/19/21 21:35: WBC 7.2, RBC 4.48, Hgb 12.7, Hct 40.5, MCV 90.4, MCH 28.3, MCHC 31.4 L, RDW Std Deviation 47.8 H, RDW Coeff of Doretha 14.4, Plt Count 334, MPV 9.2, Immature Gran % (Auto) 0.400, Neut % (Auto) 63.1, Lymph % (Auto) 26.4, [place] % (Auto) 6.9, Eos % (Auto) 2.8, Baso % (Auto) 0.4, Absolute Neuts (auto) 4.6, Absolute Lymphs (auto) 1.90, Nucleated RBC % 0 04/19/21 21:35: PT 12.6, INR 1.0, APTT 32.7 04/19/21 21:35: Sodium 139, Potassium 3.5, Chloride 104, Carbon Dioxide 31.0, Anion Gap 4 L, BUN 8, Creatinine 0.59, Estim Creat Clear Calc 42.07, Est GFR (MDRD) Af Amer 128, Est GFR (MDRD) Non-Af 106, BUN/Creatinine Ratio 13.5, Glucose 96, Calcium 9.6, Troponin I High Sens [address] 04/19/21 21:19 IMPRESSION: Mild nonspecific white matter disease consistent with remote ischemic changes. Electronically Signed: Bora Gordon MD at 22:08 EDT , Service support , Chest X-Ray 04/19/21 21:45 IMPRESSION: Normal x-ray examination of the chest. Electronically Signed: Bora Gordon MD at 22:28 EDT , Service support , Assessment & Plan Assessment/Plan (1) Vertigo: PLAN: 1. Vertigo -Admit to PCU -Brain CT -CBC and CMP daily, labs unremarkable -Vital signs every 4 hours along with NIH stroke scale -PT and OT to eval and treat 2. Hypertension -Continue amlodipine furosemide and losartan -Vital signs per protocol -As needed hydralazine ordered as patient is a hypertensive upon arrival 3. COPD -Currently stable patient reports no increased shortness of breath. Currently on room air -Continue home medication regimen including daily fluticasone, Umeclidinium, and as needed albuterol nebulizer treatments 4. Diabetes mellitus type II -Diet controlled, patient not currently on medication regimen 5. Chronic pain -Continue home medication regimen 6. Tobacco abuse -Inpatient smoking cessation ordered DVT prophylaxis-subcu Lovenox This patient was seen by MIRIAM LoftonC under the supervision of Dr. Ashley. Documented by User: Dr. Georgie Ashley MD 04/20/21 01:32 HPI - General General Date of Admission: 04/19/21 [facility] Medical History Asthma Chronic pain COPD (chronic obstructive pulmonary disease) Diabetes Diabetes DVT (deep venous thrombosis) Knee arthropathy Lung cancer Pulmonary embolism Smoker Home Medications pramipexole 1.5 mg PO QHS 06/12/14 [History Last Taken 03/16/21] trazodone 100 mg PO QHS 06/12/14 [History Last Taken 05/28/16] ropinirole 2 mg PO QHS 10/20/15 [History Last Taken 03/16/21] albuterol sulfate 1 inhaler INHALATION Q4H PRN 07/01/16 [History Last Taken 03/17/21] atorvastatin 20 mg PO QHS 07/01/16 [History Last Taken 03/16/21] umeclidinium 62.5 mcg/actuation blister powder for inhalation 1 puff INHALATION DAILY 08/29/20 [History Last Taken 03/17/21] fluticasone furoate-vilanterol 1 puff INHALATION DAILY 10/15/20 [History Last Taken 03/17/21] amlodipine 5 mg PO DAILY 03/17/21 [History Last Taken 03/17/21] benzonatate 100 - 200 mg PO TID PRN 03/17/21 [History Last Taken Unknown] furosemide 20 mg PO DAILY 03/17/21 [History Last Taken 03/16/21] losartan 50 mg PO DAILY 03/17/21 [History Last Taken Unknown] sertraline 50 mg PO DAILY 03/17/21 [History Last Taken 03/17/21] azithromycin 250 mg PO DAILY 04/08/21 [History Last Taken Unknown] cephalexin 500 mg PO Q6 #20 capsule 04/08/21 [Rx Last Taken Unknown] cyclobenzaprine 10 mg PO TID 04/08/21 [History Last Taken Unknown] acetaminophen 2 mg PO TID PRN PRN 04/19/21 [History Last Taken Unknown] calcium carbonate-vitamin D3 [Oyster Shell Calcium-Vit D3] 1 tab PO DAILY 04/19/21 [History Last Taken Unknown] hydrocodone-acetaminophen 1 tab PO BID 04/19/21 [History Last Taken Unknown] ibandronate 150 mg PO QMONTH 04/19/21 [History Last Taken Unknown] Allergy/AdvReac Type Severity Reaction Status Date / Time bupropion HCl Allergy Hives Verified 04/19/21 20:07 [From Wellbutrin] gabapentin [From Neurontin] Allergy Hives Verified 04/19/21 20:07 moxifloxacin HCl Allergy Hives Verified 04/19/21 20:07 [From Avelox] Family History Other COPD (chronic obstructive pulmonary disease) Cancer Diabetes Heart disease Surgical History H/O hand surgery H/O knee surgery H/O: hysterectomy Status post lobectomy of lung Social History Smoking Status: Current every day smoker tobacco type: cigarettes substance use type: does not use Results Lab / Micro Data Result Diagrams: 04/19/21 21:35 04/19/21 21:35
[2021-04-20] VITALS (13 sets, daily range): BP systolic 120–171; BP diastolic 63–75; PULSE 74–90; RESP 14–20; TEMP 36.1–37.1; O2SAT 93–96; BMI 34.9
[2021-04-20 01:24] LABS: Hemoglobin A1c 6.7 % (3.8-5.6)
--- NOTE | 2021-04-20 01:27 | MRI_ITS ---
STUDY: MRA OF THE HEAD WITHOUT CONTRAST REASON FOR EXAM: Female, 70 years old. cva TECHNIQUE: 3-D chap-ph-tfjerb (TOF) imaging was performed with MIPs. The study was performed unenhanced. COMPARISON: None. FINDINGS: Normal bilateral petrous carotid arteries. Normal right cavernous carotid artery with a normal supraclinoid bifurcation. Normal left cavernous carotid artery with a normal supraclinoid bifurcation. Normal right A1 segments of the anterior cerebral artery. Normal left A1 segments of the anterior cerebral artery. Normal intact anterior communicating artery (ACOM). Normal bilateral A2 segments of the anterior cerebral arteries. Normal right M1 and M2 segments of the middle cerebral arteries, with a normal M1 bifurcation. Normal left M1 and M2 segments of the middle cerebral arteries, with a normal M1 bifurcation. Normal right posterior communicating artery (PCOM). Normal left posterior communicating artery (PCOM). Normal bilateral vertebral arteries. Normal basilar artery with a normal basilar bifurcation. The visualized bilateral superior cerebellar (SCA) arteries are normal. Normal bilateral P1, P2 and visualized P3 segments of the posterior cerebral arteries. There is no demonstrated aneurysm of the [place] of [place]. There is no major vessel occlusion or hemodynamically significant stenosis. There is no demonstrated abnormality of the visualized brain. MRI/MRA Head ONLY without Contrast IMPRESSION: Normal MRA of the head Electronically Signed: Dario Burdick MD at 11:31 EDT Tel , Service support ,
--- NOTE | 2021-04-20 01:27 | MRI_ITS ---
STUDY: MRI BRAIN WITHOUT CONTRAST REASON FOR EXAM: Female, 70 years old. cva TECHNIQUE: Standardized multiplanar fat and water weighted pulse sequences were obtained. COMPARISON: None. FINDINGS: There is mild cerebral atrophy with widening of the extra-axial spaces and ventricular dilatation. There are multiple white matter hyperintensities, distributed throughout the deep white matter tracts of the cerebral hemispheres, consistent with moderate chronic white matter ischemic changes. There is no evidence for recent intracranial ischemia or other cause of cytotoxic edema on diffusion weighted imaging (DWI). Normal T2* images of the brain without demonstrated susceptibility artifact. There is no demonstrated hemosiderin stain. Normal bilateral basal ganglia. Normal thalami. There is no extra-axial fluid accumulation. Normal flow voids within the major intracranial circulation suggesting patency by spin echo criteria. Normal sella turcica, pituitary gland, infundibular stalk, optic chiasm and hypothalamus. Normal tectal plate and pineal gland. There are chronic white matter ischemic changes of the nicole. The midbrain and medulla are otherwise normal. Normal cerebellum. Normal basal cisterns. 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 Normal bilateral internal auditory canals. No demonstrated orbital abnormality, within the constraints of a routine brain study. Normal visualized paranasal sinuses. Normal calvarium and skull base. Normal visualized soft tissue structures. Normal visualized upper cervical spine. MRI/Brain without Contrast IMPRESSION: Involutional changes of the brain, as described above. No acute infarct. Electronically Signed: Dario Burdick MD at 11:30 EDT Tel , Service support ,
--- NOTE | 2021-04-20 01:27 | ECHOCS_ITS ---
Reason For Study: TIA/CVA Procedure This was a 2D Doppler, Color Flow transthoracic echocardiogram. The study was technically difficult. Exam performed portable in patient room. Left Ventricle Normal left ventricle. Left ventricular systolic function is normal. The estimated ejection fraction is 60 %. Stage 1 diastolic dysfunction. No regional wall motion abnormalities noted. Right Ventricle Normal RV size. Normal systolic function. Atria Normal left atrium. Normal right atrium. Bubble contrast study negative for right to left interatrial shunt. Mitral Valve Normal mitral valve. Tricuspid Valve Normal tricuspid valve. Mild (1+) tricuspid valve insufficiency. Pulmonary artery systolic pressure is 36 mmHg. Aortic Valve Normal aortic valve. Pulmonic Valve Normal pulmonic valve. Great Vessels Normal aortic root. The pulmonary artery is normal size. Inferior vena cava collapse with respiration. Pericardium/Pleural No pericardial effusion. Medication Diluted definity 3ml given slow IV push to enhance endocardial definition. Performed a rapid injection of agitated mix of 9 cc saline and 1cc air to assess for atrial septal defect. MMode/2D Measurements & Calculations LVIDd: 4.5 cm IVSd: 1.0 cm Ao root diam: 3.1 cm LVIDs: 3.0 cm LVPWd: 1.1 cm RVDd: 3.5 cm FS: 33.2 % LAV(MOD-bp): 29.5 ml LVAd ap4: 34.2 cm2 SV(MOD-sp4): 82.0 ml LAV(MOD-bp) Indexed: 15.3 ml/m2 LVLd ap4: 7.7 cm LAV(MOD-sp2): 31.8 ml EDV(MOD-sp4): 124.5 ml LAV(MOD-sp4): 27.1 ml EDV(sp4-el): 129.4 ml LVAs ap4: 17.5 cm2 LVLs ap4: 6.0 cm ESV(MOD-sp4): 42.5 ml ESV(sp4-el): 43.4 ml EF(MOD-sp4): 65.9 % EF(sp4-el): 66.4 % SV(sp4-el): 86.0 ml LA A4 area: 12.5 cm2 LA dimension(2D): 3.4 cm RA A4 area: 11.8 cm2 Time Measurements MV dec time: 0.22 sec Doppler Measurements & Calculations MV E max kp: 76.8 cm/sec Lat Peak E' Kp: 7.8 cm/sec Med Peak E' Kp: 6.9 cm/sec MV A max kp: 89.1 cm/sec E/E' lat: 9.9 E/E' med: 11.1 MV E/A: 0.86 Ao V2 max: 158.7 cm/sec LV V1 max: 125.5 cm/sec PA V2 max: 127.1 cm/sec Ao max P.1 mmHg LV V1 max P.3 mmHg TR max kp: 282.2 cm/sec TR max P.8 mmHg ECHO/Echo Complete W/ Contrast Interpretation Summary Normal left ventricle. Left ventricular systolic function is normal. The estimated ejection fraction is 60 %. Stage 1 diastolic dysfunction. Bubble contrast study negative for right to left interatrial shunt. Contrast injection was performed. Ordering Physician: Nancy Cruz Referring Physician: JUAN F MADSEN Performed By: Claudia Pelayo RDCS
--- NOTE | 2021-04-20 01:27 | CDU_ITS ---
Reason For Study: CVA Rt. Velocities/BP Lt. Velocities/BP Prox CCA 98.2/14.7 cm/sec. Prox CCA 79.1/15.2 cm/sec. Mid CCA 61.7/12.1 cm/sec. Mid CCA 117.4/13.3 cm/sec. Dist CCA 76/17.3 cm/sec. Dist CCA 68.1/13.3 cm/sec. Prox ICA 63/14.7 cm/sec. Prox ICA 66.7/18.8 cm/sec. Mid ICA 80.5/23.5 cm/sec. Mid ICA 127/31.7 cm/sec. Dist ICA 117.4/26.1 cm/sec. Dist ICA 117.6/25.7 cm/sec. Rt. ICA/CCA = 1.54. Lt. ICA/CCA = 1.61. Prox ECA 87.8/13.4 cm/sec. Prox ECA 101/17 cm/sec. Rt. Vert. 70/15.2 cm/sec. Lt. Vert. 75.4/17 cm/sec. Right Extracranial There is homogeneous, smooth atherosclerotic plaque noted in the right common carotid artery. There is homogeneous, smooth atherosclerotic plaque noted in the right internal carotid artery. The right internal carotid artery is very tortuous. There is heterogeneous, irregular atherosclerotic plaque noted in the right external carotid artery. Antegrade flow is noted in the right vertebral artery. Left Extracranial There is homogeneous, smooth atherosclerotic plaque noted in the left common carotid artery. There is heterogeneous, irregular atherosclerotic plaque noted in the left internal carotid artery. The left internal carotid artery is very tortuous. There is heterogeneous, irregular atherosclerotic plaque noted in the left external carotid artery. Antegrade flow is noted in the left vertebral artery. Procedure Carotid Duplex 70055. This is a Carotid Duplex examination using B-mode, color flow and specral Doppler. Exam performed portable in patient room. VL/Carotid Duplex Ultrasound Interpretation Summary Smooth plaque at the proximal right internal carotid artery with very tortuous right internal carotid artery. Less than 50% stenosis right internal carotid artery Less than 50% stenosis right external carotid artery Minimal heterogenous plaque of the proximal left internal carotid artery with a very tortuous left internal carotid artery. Based upon velocity analysis 50 to 69% stenosis left mid internal carotid arter y but this may be artificially elevated secondary to the tortuosity. Less than 50% stenosis left external carotid artery Patent and antegrade vertebral arteries bilaterally Ordering Physician: Nancy Cruz Referring Physician: Heladio Edwards Performed By: Cathie Vigil RVT
--- NOTE | 2021-04-20 02:16 | PCS.PANDOC ---
PANDEMIC DOCUMENTATION INITIATED: Date: 04/20/2021 Time: 125
--- NOTE | 2021-04-20 02:54 | EX.ED.DYSGE1 ---
HPI History of Present Illness Chief Complaint: Dizziness Informant: patient Narrative Narrative: Patient is a 70-year-old female with history of coronary artery disease and, pulmonary emboli, no longer on anticoagulation, and chronic back pain presenting after sudden onset of dizziness and blurry vision. Patient states she was seen on the couch and suddenly she felt very dizzy and her vision was blurry. She describes it as seeing double. It lasted for about 3 minutes. After that she felt that she does not feel right in her head. She had no associated nausea or vomiting. Patient does live home alone and called EMS because of her symptoms. She describes the dizziness more as a spinning sensation but it was not affected by moving her head. She states her mouth does feel dry. She denies any associated chest pain, shortness of breath or difficulty breathing. No other complaints at this time. She notes her symptoms have completely resolved at this time. PFSH PFSH Medical History Asthma Chronic pain COPD (chronic obstructive pulmonary disease) Diabetes Diabetes DVT (deep venous thrombosis) Knee arthropathy Lung cancer Pulmonary embolism Smoker Home Medications pramipexole 1.5 mg PO QHS 06/12/14 [History Last Taken 04/19/21] trazodone 100 mg PO QHS 06/12/14 [History Last Taken 05/28/16] ropinirole 2 mg PO QHS 10/20/15 [History Last Taken 04/19/21] albuterol sulfate 1 inhaler INHALATION Q4H PRN 07/01/16 [History Last Taken 03/17/21] atorvastatin 20 mg PO QHS 07/01/16 [History Last Taken 04/19/21] umeclidinium 62.5 mcg/actuation blister powder for inhalation 1 puff INHALATION DAILY 08/29/20 [History Last Taken 04/19/21] fluticasone furoate-vilanterol 1 puff INHALATION DAILY 10/15/20 [History Last Taken 04/19/21] amlodipine 5 mg PO DAILY 03/17/21 [History Last Taken 04/19/21] benzonatate 100 - 200 mg PO TID PRN 03/17/21 [History Last Taken Unknown] furosemide 20 mg PO DAILY 03/17/21 [History Last Taken 04/19/21] losartan 50 mg PO DAILY 03/17/21 [History Last Taken 04/19/21] sertraline 50 mg PO DAILY 03/17/21 [History Last Taken 04/19/21] azithromycin 250 mg PO DAILY 04/08/21 [History Last Taken 04/19/21] cephalexin 500 mg PO Q6 #20 capsule 04/08/21 [Rx Last Taken 04/19/21] cyclobenzaprine 10 mg PO TID 04/08/21 [History Last Taken 04/19/21] acetaminophen 2 mg PO TID PRN PRN 04/19/21 [History Last Taken Unknown] calcium carbonate-vitamin D3 [Oyster Shell Calcium-Vit D3] 1 tab PO DAILY 04/19/21 [History Last Taken 04/19/21] hydrocodone-acetaminophen 1 tab PO BID 04/19/21 [History Last Taken 04/19/21] ibandronate 150 mg PO QMONTH 04/19/21 [History Last Taken Unknown] Allergy/AdvReac Type Severity Reaction Status Date / Time bupropion HCl Allergy Hives Verified 04/19/21 20:07 [From Wellbutrin] gabapentin [From Neurontin] Allergy Hives Verified 04/19/21 20:07 moxifloxacin HCl Allergy Hives Verified 04/19/21 20:07 [From Avelox] Family History Other COPD (chronic obstructive pulmonary disease) Cancer Diabetes Heart disease Surgical History H/O hand surgery H/O knee surgery H/O: hysterectomy Status post lobectomy of lung Social History Smoking Status: Current every day smoker tobacco type: cigarettes substance use type: does not use ROS ROS ED Constitutional Constitutional ED: Denies chills or fever(s) Eyes Eyes: Reports blurry vision and diplopia; Denies change in vision ENT ENT ED: Denies change in voice, ear pain, rhinorrhea, sore throat or vertigo Cardiovascular Cardiovascular: Denies chest pain or hypertension Respiratory/Chest Respiratory/Chest: Denies chest tightness, cough, dyspnea, shortness of breath at rest or other Gastrointestinal Gastrointestinal: Denies abdominal pain, nausea or vomiting Genitourinary Genitourinary ED: Denies dysuria or hematuria Musculoskeletal Musculoskeletal: Denies abnormal gait, difficulty walking or muscle weakness Integumentary Denies new lesions or rash Neurologic Neurologic: Reports other Details: Dizziness ; Denies headache(s), paresthesias or weakness Psychiatric Psychiatric: Denies anxiety or confusion EXAM Physical Exam Const Vital Signs: 04/19/21 20:05 04/19/21 21:35 04/19/21 21:51 Temperature 97.4 F L Temperature Source Temporal Pulse Rate 85 Respiratory Rate 18 Respiratory Effort Normal Respiratory Pattern Normal Blood Pressure 147/73 H Blood Pressure Mean 97 Pulse Ox 99 100 Oxygen Delivery Method Room Air Room Air 04/19/21 22:06 Temperature Temperature Source Pulse Rate 91 Respiratory Rate 22 H Respiratory Effort Respiratory Pattern Blood Pressure 172/74 H Blood Pressure Mean 106 Pulse Ox 92 Oxygen Delivery Method Positive well nourished and well developed General Appearance ED: active, cooperative, comfortable and well developed HEENT Reports normocephalic, TM's clear and moist mucous membranes atraumatic Nose: external nose normal Tympanic Membrane ED: Yes TM's clear Eyes PERRL and EOMs intact bilaterally Eyes Narrative: No nystagmus on exam Neck full ROM, No nuchal rigidity, supple, no meningeal signs and no JVD Chest Wall inspection of chest normal Resp normal respiratory effort, normal air movement and clear to auscultation bilaterally Cardio regular rate and regular rhythm GI normal to inspection, nondistended, normoactive bowel sounds Extremity normal to inspection, full ROM and normal capillary refill Neuro oriented x3, CN's II-XII intact bilaterally and no sensory deficits noted Neuro Narrative: No truncal ataxia. Normal [id number]-[id number]. NIH equals 0 Sensorium / Orientation: alert Motor Exam: strength 5/5 throughout Psych mental status grossly normal and thought process normal Skin no rashes or lesions noted and no wounds MDM MDM MDM Narrative Medical decision making narrative: Patient is evaluated for a 3-minute episode of dizziness and blurry vision. Her symptoms have since resolved. Differential is broad including transient episode of vertigo, posterior circulation TIA or cardiogenic cause. Her work-up is largely negative in the emergency room however patient be admitted for further work-up and evaluation. She is agreeable this plan of care. Patient is given aspirin in the emergency room. Lab Data Labs: Laboratory Results - last 24 hr 04/19/21 04/19/21 04/19/21 21:35 21:35 21:35 WBC 7.2 RBC 4.48 Hgb 12.7 Hct 40.5 MCV 90.4 MCH 28.3 MCHC 31.4 L RDW Std Deviation 47.8 H RDW Coeff of Doretha 14.4 Plt Count 334 MPV 9.2 Immature Gran % (Auto) 0.400 Neut % (Auto) 63.1 Lymph % (Auto) 26.4 [place] % (Auto) 6.9 Eos % (Auto) 2.8 Baso % (Auto) 0.4 Absolute Neuts (auto) 4.6 Absolute Lymphs (auto) 1.90 Nucleated RBC % 0 PT 12.6 INR 1.0 APTT 32.7 Sodium 139 Potassium 3.5 Chloride 104 Carbon Dioxide 31.0 Anion Gap 4 L BUN 8 Creatinine 0.59 Estim Creat Clear Calc 42.07 Est GFR (MDRD) Af Amer 128 Est GFR (MDRD) Non-Af 106 BUN/Creatinine Ratio 13.5 Glucose 96 Hemoglobin A1c Calcium 9.6 Troponin I High Sens 8 04/19/21 21:35 WBC RBC Hgb Hct MCV MCH MCHC RDW Std Deviation RDW Coeff of Doretha Plt Count MPV Immature Gran % (Auto) Neut % (Auto) Lymph % (Auto) [place] % (Auto) Eos % (Auto) Baso % (Auto) Absolute Neuts (auto) Absolute Lymphs (auto) Nucleated RBC % PT INR APTT Sodium Potassium Chloride Carbon Dioxide Anion Gap BUN Creatinine Estim Creat Clear Calc Est GFR (MDRD) Af Amer Est GFR (MDRD) Non-Af BUN/Creatinine Ratio Glucose Hemoglobin A1c 6.7 H Calcium Troponin I High Sens Radiography Chest X-Ray - ED: 1 View, Read by ED Physician, Read by Radiologist and Normal Diagnostic Testing: Radiology Impression Brain CT 04/19/21 21:19 IMPRESSION: Mild nonspecific white matter disease consistent with remote ischemic changes. Electronically Signed: Bora Gordon MD at 22:08 EDT , Service support , Chest X-Ray 04/19/21 21:45 IMPRESSION: Normal x-ray examination of the chest. Electronically Signed: Boar Gordon MD at 22:28 EDT , Service support , Rhythm Strip Rhythm Strip: Sinus Rhythm Rate: 77 Ectopy: None EKG Initial EKG: Attestation: I personally reviewed and interpreted this EKG as follows: Interpretation: Sinus Arrythmia Comments: Sinus rhythm with sinus arrhythmia at a rate of 77 First-degree AV block with a AL interval of 224 QRS 82 QTc 459 Normal axis Normal intervals Normal ST segments Discharge Plan Dx/Rx/DC Orders Clinical Impression: Vertigo, Dizziness Disposition Disposition: Acute Care Hospital [facility] Discharge Date/Time: 04/20/21 01:27
[2021-04-20 03:37] LABS: Magnesium 1.8 mg/dL (1.6-2.6); Troponin-I HS 9 pg/mL (3.0-54.0)
[2021-04-20 05:12] LABS: Absolute Lymphocyte Count 2.16 X10^3/uL (0.83-4.51); Absolute Neutrophil Count 3.6 X10^3/uL (2.0-7.7); Basophil# 0.03 X10^3/uL; Basophil% 0.5 % (0-1); Eosinophil# 0.21 X10^3/uL; Eosinophils% 3.3 % (0-5); Hemoglobin 11.4 g/dL (12.0-15.0); Lymphocyte # 2.16 X10^3/ul (0.83-4.51); Lymphocyte % 33.5 % (19-41); Mean Corp Hgb Conc 31.7 g/dL (32-36); Mean Corpuscular Hgb 28.6 pg (27.0-32.0); Mean Corpuscular Volume 90.5 fL (81-99); Mean Platelet Vol. 9.2 fl (6.2-12.0); Monocyte# 0.46 X10^3/uL; Monocyte% 7.1 % (0-10); NRBC Flagged by Analyzer 0 % (0-5); Neutrophil # 3.57 X10^3/uL (2.7-7.7); Neutrophil % 55.3 % (47-70); Platelet Count 304 K/mm3 (150-450); RBC Distribution Width CV 14.4 % (11.6-14.6); RBC Distribution Width SD 47.7 fl (35.1-43.9); Red Blood Count 3.98 M/mm3 (4.2-5.4); White Blood Count 6.5 K/mm3 (4.4-11.0)
[2021-04-20] MEDS: cycloBENZAPRine HCl 10 MG Tablet PO ×2 (05:40→13:45)
[2021-04-20 06:10] LABS: ALB/GLOB Ratio 0.8 RATIO (0.9-2.4); AST(SGOT) 13 U/L (15-37); Alanine Aminotransfer ALT/SGPT 20 U/L (13-56); Albumin, Serum 2.8 g/dL (3.2-5.0); Alkaline Phosphatase 105 U/L (45-117); Anion Gap 5 (5-15); BUN 9 mg/dL (7-18); BUN/Creat Ratio 15.4 RATIO (10-20); Calcium,Total 8.5 mg/dL (8.5-10.1); Chloride 105 mmol/L (98-107); Cholesterol 153 mg/dL (200); Creatinine, Serum 0.58 mg/dL (0.55-1.02); EST Glomerular Filtration Rate 108 mL/min (>60); Est Glom Filt Rate - Afr Amer 130 mL/min (>60); Estimated Creatinine Clearance 42.07 ml/min; Globulin 3.7 g/dL (2.2-4.2); Glucose 133 mg/dL (74-106); High Density Lipoprotein 52 mg/dL; Potassium 3.4 mmol/L (3.5-5.1); Protein, Total 6.5 g/dL (6.4-8.2); Sodium Level 138 mmol/L (136-145); Thyroid Stim Hormone (TSH) 1.41 uIU/mL (0.358-3.74); Triglycerides 144 mg/dL; Troponin-I HS 8 pg/mL (3.0-54.0); Very Low Density Lipoprotein 29 mg/dL (5-40)
[2021-04-20] MEDS: Ipratropium/Albuterol Sulfate 3 ML AMPUL.NEB INHALATION ×2 (06:39→13:34)
[2021-04-20] MEDS: Insulin Lispro 100 UNIT/ML INSULN.PEN SC (08:21)
[2021-04-20] MEDS: Potassium Chloride Oral Tablet 20 MEQ 40 MEQ PO (08:22)
[2021-04-20 08:31] LABS: Bedside Glucose 151 mg/dL (70-110)
[2021-04-20] MEDS: Calcium Carb/Vitamin D 1 TABLET Tablet PO (09:43)
[2021-04-20] MEDS: Aspirin 81 MG TAB.CHEW PO (09:43)
[2021-04-20] MEDS: Losartan Potassium 50 MG Tablet PO (09:43)
[2021-04-20] MEDS: Enoxaparin 40 MG/0.4 ML Syringe SC (09:43)
[2021-04-20] MEDS: Sertraline 50 MG Tablet PO (09:43)
[2021-04-20] MEDS: amLODIPine 5 MG Tablet PO (09:43)
[2021-04-20] MEDS: Furosemide 20 MG Tablet PO (09:43)
[2021-04-20] MEDS: HYDROcodone Bitartrate/Apap 5/325 Tablet PO (09:48)
[2021-04-20 09:56] LABS: Troponin-I HS 8 pg/mL (3.0-54.0)
[2021-04-20 12:01] LABS: Bedside Glucose 150 mg/dL (70-110)
--- NOTE | 2021-04-20 15:45 | CASEMGMT ---
SW completed a PHQ 9 with patient as she may have had a TIA. She scored a 3 which indicates minimal depression. She denied any need for counseling resources. Miriam MANCUSO
--- NOTE | 2021-04-20 16:26 | DS.PCM_ITS ---
Providers Date of Admission: 04/19/21 Primary Care Physician: Dr. Heladio Edwards MD Reason For Visit: TIA Diagnosis Discharge Diagnosis (1) Vertigo: Status: Acute Code(s): R42 - Dizziness and giddiness Medications at Discharge Home Medications pramipexole 1.5 mg PO QHS 06/12/14 trazodone 100 mg PO QHS 06/12/14 ropinirole 2 mg PO QHS 10/20/15 albuterol sulfate 1 inhaler INHALATION Q4H PRN 07/01/16 atorvastatin 20 mg PO QHS 07/01/16 umeclidinium 62.5 mcg/actuation blister powder for inhalation 1 puff INHALATION DAILY 08/29/20 fluticasone furoate-vilanterol 1 puff INHALATION DAILY 10/15/20 amlodipine 5 mg PO DAILY 03/17/21 benzonatate 100 - 200 mg PO TID PRN 03/17/21 furosemide 20 mg PO DAILY 03/17/21 losartan 50 mg PO DAILY 03/17/21 sertraline 50 mg PO DAILY 03/17/21 cyclobenzaprine 10 mg PO TID 04/08/21 acetaminophen 2 mg PO TID PRN PRN 04/19/21 calcium carbonate-vitamin D3 [Oyster Shell Calcium-Vit D3] 1 tab PO DAILY 04/19/21 hydrocodone-acetaminophen 1 tab PO BID 04/19/21 ibandronate 150 mg PO QMONTH 04/19/21 meclizine 25 mg PO TID PRN #30 tab 04/20/21 Hospital Course Operations None Procedures 2-D Echocardiogram Summary of Care Provided Minutes Spent on Discharge: 45 Hospital Course: Patient is a 70 y/o F with a PMH as outlined who was admitted via the ED on 04/19/2021 with a complaint of dizziness and double vision, which lasted for about 2-3 minutes. She was admitted and managed for vertigo, to rule out a CVA. CT of hte brain was negative for acute stroke showed mild nonspecific white matter disease consistent with remote ischemic changes. Chest x-ray showed no acute cardiopulmonary process. She was admitted to be managed for vertigo to rule out stroke. MRI of the brain was negative for stroke and MRI of the head was also negative. Carotid duplex showed smooth plaque at the proximal right internal carotid artery with a very tortuous right internal carotid artery and less than 50% stenosis of the right internal and external carotid arteries. There was suspected 50 to 69% stenosis of the left mid internal carotid artery but this was thought to be artificially elevated secondary to the tortuosity as well as less than 50% stenosis of the left external carotid artery and patent vertebral arteries bilaterally. 2D echo was ordered which was pending at time of discharge. Patient however remained stable throughout the admission. She was therefore discharged home on 04/20/2021. She was discharged a prescription for p.o. aspirin 81 mg daily. She was also given p.o. meclizine. Of note, lipid panel done showed LDL of 72 and total cholesterol of 153 with HDL of 52. Patient seen and examined prior to discharge. She felt well and was eager to be discharged. She had no complaints and review of systems otherwise negative. Labs and vitals reviewed. Medication reviewed and reconciled. Dizziness had resolved. O/E Const alert, oriented x3 and no apparent distress General Appearance: cooperative HEENT normocephalic and head/scalp atraumatic Eyes conjunctivae normal and no scleral icterus Neck supple and no JVD General: trachea midline Resp normal respiratory effort and normal air movement Effort and Inspection: tachypneic Auscultation: wheezes expiratory wheezes, posterior and throughout Cardio regular rate, regular rhythm, S1 normal heart sound, S2 normal heart sound and peripheral pulses 2+ throughout GI normal to inspection, nondistended, normoactive bowel sounds, soft to palpation and non-tender Extremity normal capillary refill and no clubbing, cyanosis or edema General Extremity: no tenderness to palpation of joints or extremities Skin General Skin Exam: no breakdown and turgor normal Lesions: no lesions Rashes: no rashes Neuro no focal motor deficits and no sensory deficits noted Neuro Narrative: NIH stroke scale 0 Speech: speech normal Motor Exam: Negative for general weakness Psych thought process normal, cooperative and affect normal Appearance: appropriate Plan is for discharge home today as stated above. Follow-up with primary care doctor for referral to neurosurgeon as deemed necessary. Physical Exam Const alert, oriented x3 and no apparent distress General Appearance: cooperative and comfortable Exam Limitations: no limitations HEENT normocephalic and head/scalp atraumatic Eyes PERRL, EOMs intact bilaterally, conjunctivae normal and no scleral icterus Neck no lymphadenopathy, supple and no JVD General: trachea midline Resp normal respiratory effort, normal air movement, no retractions, no use of accessory muscles and clear to auscultation bilaterally Effort and Inspection: tachypneic Auscultation: wheezes expiratory wheezes, posterior and throughout Cardio regular rate, regular rhythm, S1 normal heart sound, S2 normal heart sound and peripheral pulses 2+ throughout GI normal to inspection, nondistended, normoactive bowel sounds, soft to palpation and non-tender Extremity normal to inspection, full ROM, normal capillary refill and no clubbing, cyanosis or edema General Extremity: no tenderness to palpation of joints or extremities Skin no rashes or lesions noted General Skin Exam: no breakdown and turgor normal Lesions: no lesions Rashes: no rashes Neuro oriented x3, no focal motor deficits and no sensory deficits noted Neuro Narrative: NIH stroke scale 0 Sensorium / Orientation: awake and alert Speech: speech normal Motor Exam: Negative for general weakness Psych thought process normal, cooperative and affect normal Appearance: appropriate Weight / BMI Weight Weight: 197 lb 8.547 oz Body Mass Index (BMI) 34.9 ABG / Lab / Microbiology Data Result Diagrams: 04/20/21 04:56 04/20/21 04:56 Laboratory: Laboratory Results - last 24 hr 04/19/21 21:35: WBC 7.2, RBC 4.48, Hgb 12.7, Hct 40.5, MCV 90.4, MCH 28.3, MCHC 31.4 L, RDW Std Deviation 47.8 H, RDW Coeff of Doretha 14.4, Plt Count 334, MPV 9.2, Immature Gran % (Auto) 0.400, Neut % (Auto) 63.1, Lymph % (Auto) 26.4, [place] % (Auto) 6.9, Eos % (Auto) 2.8, Baso % (Auto) 0.4, Absolute Neuts (auto) 4.6, Absolute Lymphs (auto) 1.90, Nucleated RBC % 0 04/19/21 21:35: PT 12.6, INR 1.0, APTT 32.7 04/19/21 21:35: Sodium 139, Potassium 3.5, Chloride 104, Carbon Dioxide 31.0, Anion Gap 4 L, BUN 8, Creatinine 0.59, Estim Creat Clear Calc 42.07, Est GFR (MDRD) Af Amer 128, Est GFR (MDRD) Non-Af 106, BUN/Creatinine Ratio 13.5, Glucose 96, Calcium 9.6, Troponin I High Sens 8 04/19/21 21:35: Hemoglobin A1c 6.7 H 04/20/21 03:10: Magnesium 1.8, Troponin I High Sens 9 04/20/21 04:56: WBC 6.5, RBC 3.98 L, Hgb 11.4 L, Hct 36.0 L, MCV 90.5, MCH 28.6, MCHC 31.7 L, RDW Std Deviation 47.7 H, RDW Coeff of Doretha 14.4, Plt Count 304, MPV 9.2, Immature Gran % (Auto) 0.300, Neut % (Auto) 55.3, Lymph % (Auto) 33.5, [place] % (Auto) 7.1, Eos % (Auto) 3.3, Baso % (Auto) 0.5, Absolute Neuts (auto) 3.6, Absolute Lymphs (auto) 2.16, Nucleated RBC % 0 04/20/21 04:56: Sodium 138, Potassium 3.4 L, Chloride 105, Carbon Dioxide 28.0, Anion Gap 5, BUN 9, Creatinine 0.58, Estim Creat Clear Calc 42.07, Est GFR (MDRD) Af Amer 130, Est GFR (MDRD) Non-Af 108, BUN/Creatinine Ratio 15.4, Glucose 133 H, Calcium 8.5, Total Bilirubin 0.30, AST 13 L, ALT 20, Alkaline Phosphatase 105, Troponin I High Sens 8, Total Protein 6.5, Albumin 2.8 L, Globulin 3.7, Albumin/Globulin Ratio 0.8 L, Triglycerides 144, Cholesterol 153, LDL Cholesterol 72, VLDL Cholesterol 29, HDL Cholesterol 52, TSH 1.41 04/20/21 08:15: POC Glucose 151 H 04/20/21 09:10: Troponin I High Sens 8 04/20/21 11:56: POC Glucose 150 H Radiography Diagnostic Testing: Radiology Impression Brain CT 04/19/21 21:19 IMPRESSION: Mild nonspecific white matter disease consistent with remote ischemic changes. Electronically Signed: Bora Gordon MD at 22:08 EDT , Service support , Chest X-Ray 04/19/21 21:45 IMPRESSION: Normal x-ray examination of the chest. Electronically Signed: Bora Gordon MD at 22:28 EDT , Service support , Brain MRI 04/20/21 01:27 IMPRESSION: Involutional changes of the brain, as described above. No acute infarct. Electronically Signed: Dario Burdick MD at 11:30 EDT Tel , Service support , Carotid Duplex 04/20/21 01:27 Interpretation Summary Smooth plaque at the proximal right internal carotid artery with very tortuous right internal carotid artery. Less than 50% stenosis right internal carotid artery Less than 50% stenosis right external carotid artery Minimal heterogenous plaque of the proximal left internal carotid artery with a very tortuous left internal carotid artery. Based upon velocity analysis 50 to 69% stenosis left mid internal carotid artery but this may be artificially elevated secondary to the tortuosity. Less than 50% stenosis left external carotid artery Patent and antegrade vertebral arteries bilaterally Ordering Physician: Nancy Cruz Referring Physician: Heladio Edwards Performed By: Cathie Vigil RVT Head MRA 04/20/21 01:27 IMPRESSION: Normal MRA of the head Electronically Signed: Dario Burdick MD at 11:31 EDT Tel , Service support , Meaningful Use Info Meaningful Use Diagnoses (Choose all that apply): None applicable Discharge Plan Admission Admit Date/Time: 04/19/21 23:45 Primary Reason for Your Visit: dizziness Attending Provider: Leela Keenan Primary Care Provider: Heladio Edwards Instructions Patient Instructions: Dizziness Fainting Poss Causes, Dizziness Vertigo and Balance ..., ED Chest Pain, Noncardiac Discharge Orders/Prescriptions Prescriptions: New meclizine 25 mg tablet 25 mg PO TID PRN (Reason: dizziness) Qty: 30 RF: 0 Continued umeclidinium 62.5 mcg/actuation blister with device 1 puff INHALATION DAILY RF: 0 trazodone 100 MG tablet 100 mg PO QHS RF: 0 pramipexole 1.5 MG tablet 1.5 mg PO QHS RF: 0 ropinirole 2 MG tablet 2 mg PO QHS RF: 0 atorvastatin 20 MG tablet 20 mg PO QHS RF: 0 albuterol sulfate 2.5 MG/3 ML solution for nebulization 1 inhaler INHALATION Q4H PRN (Reason: Sob &/Or Wheezing) RF: 0 fluticasone furoate-vilanterol 1 EACH blister with device 1 puff INHALATION DAILY RF: 0 benzonatate 100 mg capsule 100 - 200 mg PO TID PRN (Reason: cough) RF: 0 losartan 50 mg tablet 50 mg PO DAILY RF: 0 furosemide 20 mg tablet 20 mg PO DAILY RF: 0 sertraline 50 mg tablet 50 mg PO DAILY RF: 0 amlodipine 5 MG tablet 5 mg PO DAILY RF: 0 cyclobenzaprine 10 mg tablet 10 mg PO TID RF: 0 acetaminophen 500 mg tablet 2 mg PO TID PRN PRN (Reason: Pain) RF: 0 hydrocodone-acetaminophen 5-325 mg tablet 1 tab PO BID RF: 0 ibandronate 150 mg tablet 150 mg PO QMONTH RF: 0 calcium carbonate-vitamin D3 [Oyster Shell Calcium-Vit D3] 250-125 mg-unit tablet 1 tab PO DAILY RF: 0 Discontinued azithromycin 250 mg tablet 250 mg PO DAILY RF: 0 cephalexin [cephalexin] 500 MG capsule 500 mg PO Q6 Qty: 20 RF: 0 Referrals / Follow Up: Jerad Newman MD [STAFF PHYSICIAN] - Within 1 Month (to establish care with regards to carotid arteries atherosclerosis) Enrike Holguin MD [STAFF PHYSICIAN] - Within 2 Weeks Heladio Edwards MD [Primary Care Provider] - Within 2 Weeks Disposition Disposition (needs filled in before D/C Order can be placed): Home, Self Care Charges/Coding Visit Charges OBSV E&M: 92481 Observation care discharge
[2021-04-20 16:45] LABS: Bedside Glucose 112 mg/dL (70-110)
== END 2021-04-20 16:38 | disposition home or self-care (01) ==
LOC: ED 23:26 → PCU 04-20 00:17
PROVIDERS: Nurse Practitioner Family; Admitting Provider Family Medicine; Emergency Provider Emergency Medicine; PCP Family Medicine; Visit Provider Student in an Organized Health Care Education/Training Program
DX: R42 Dizziness and giddiness (principal); I10 Essential (primary) hypertension; J44.9 Chronic obstructive pulmonary disease, unspecified; E11.9 Type 2 diabetes mellitus without complications; G89.29 Other chronic pain; H53.2 Diplopia; F17.210 Nicotine dependence, cigarettes, uncomplicated; R29.700 NIHSS score 0; G47.33 Obstructive sleep apnea (adult) (pediatric); E66.9 Obesity, unspecified; I25.10 Atherosclerotic heart disease of native coronary artery without angina pectoris; G25.81 Restless legs syndrome; I65.23 Occlusion and stenosis of bilateral carotid arteries; F41.9 Anxiety disorder, unspecified; F32.9 Major depressive disorder, single episode, unspecified; E78.5 Hyperlipidemia, unspecified; Z79.899 Other long term (current) drug therapy; Z79.51 Long term (current) use of inhaled steroids; Z86.718 Personal history of other venous thrombosis and embolism; Z86.711 Personal history of pulmonary embolism; Z68.35 Body mass index [BMI] 35.0-35.9, adult
CPT/HCPCS: 36415; 70450; 70544; 70551; 71045; 80048; 80053; 80061; 82962; 83036; 83735; 84443; 84484; 85025; 85610; 85730; 93005; 93306; 93880; 94640; 94762; 96372; 97162; 97166; 97802; 99218; 99251; 99285; 99406; Q9957; A4216; C8929; G0378; G0463; J3490

== ENCOUNTER 2021-05-12 20:51 | Emergency (ER) | payer MEDICARE, MEDICAID, SELFPAY ==
[2021-05-12 20:53] VITALS: BP 138/62; PULSE 88; RESP 22; TEMP 36.9; O2SAT 92; BMI 36.1
--- NOTE | 2021-05-12 22:20 | CT_ITS ---
STUDY: CT THORACIC SPINE WITHOUT CONTRAST REASON FOR EXAM: Female, 70 years old. Other, INCREASED BACK PAIN SINCE THORACIC KYPHOPLASTY DONE YESTERDAY,NO KNOWN INJURY TODAY HX:HTN,COPD,LUNG CANCER WITH RT LOBECTOMY RADIATION DOSAGE (If Supplied By Facility): CTDIvol = ( 20.73 ) mGy, DLP = ( 705.85 ) mGycm TECHNIQUE: The patient was scanned in a multi detector CT scanner. High resolution imaging was performed. Images were obtained from to . Sagittal and coronal images were reconstructed. Individualized dose optimization techniques were used for this CT. COMPARISON: None. FINDINGS: Chronic compression deformities and previously treated T7 and T8 vertebral bodies. A small amount of the kyphoplasty material is present in the anterior epidural space of T8-T9 without central canal stenosis. No new fracture or additional compression deformities are present. The bony structures are demineralized. Mild dextroscoliosis is present. Small amount of air in the anterior dural space at T7 was likely expressed from the disc which has gas in it. A small amount of paraspinous air on the right at T9 and T10 is presumed to be related to recent intervention. There is multilevel degenerative disc disease and cervical spondylosis. Normal kyphosis of the thoracic spine. There is multilevel endplate spondylosis of the thoracic spine. There is mild multilevel degenerative disc disease with loss of the disc space heights. The soft tissue structures are unremarkable. CT/Spine Thoracic without Contras IMPRESSION: 1. Recently treated T7 and T8 vertebral body compression deformities with kyphoplasty material. 2. Postprocedural small amounts of air in the right paraspinous musculature. Electronically Signed: Rosendo Hargrove MD at 23:00 EDT , Service support ,
[2021-05-12 22:30] LABS: Absolute Neutrophil Count 7.6 X10^3/uL (2.0-7.7); Basophil# 0.04 X10^3/uL; Basophil% 0.4 % (0-1); Eosinophil# 0.13 X10^3/uL; Eosinophils% 1.2 % (0-5); Hematocrit 36.4 % (37-47); Hemoglobin 11.6 g/dL (12.0-15.0); Lymphocyte % 22.3 % (19-41); Mean Corp Hgb Conc 31.9 g/dL (32-36); Mean Corpuscular Hgb 28.5 pg (27.0-32.0); Mean Corpuscular Volume 89.4 fL (81-99); Monocyte# 0.85 X10^3/uL; Monocyte% 7.6 % (0-10); NRBC Flagged by Analyzer 0 % (0-5); Neutrophil # 7.63 X10^3/uL (2.7-7.7); Neutrophil % 68.1 % (47-70); Platelet Count 317 K/mm3 (150-450); RBC Distribution Width SD 48.3 fl (35.1-43.9); Red Blood Count 4.07 M/mm3 (4.2-5.4); White Blood Count 11.2 K/mm3 (4.4-11.0)
[2021-05-12] MEDS: HYDROmorphone 1 MG/ML Syringe 0.5 MG IV ×2 (22:31→23:40)
[2021-05-12] MEDS: Ondansetron 4 MG/2 ML Vial IV (22:31)
[2021-05-12 22:46] LABS: ALB/GLOB Ratio 0.7 RATIO (0.9-2.4); AST(SGOT) 16 U/L (15-37); Alanine Aminotransfer ALT/SGPT 19 U/L (13-56); Albumin, Serum 3.1 g/dL (3.2-5.0); Alkaline Phosphatase 125 U/L (45-117); Anion Gap 8 (5-15); BUN 15 mg/dL (7-18); BUN/Creat Ratio 20.2 RATIO (10-20); Calcium,Total 9.1 mg/dL (8.5-10.1); Chloride 104 mmol/L (98-107); Creatinine, Serum 0.74 mg/dL (0.55-1.02); EST Glomerular Filtration Rate 82 mL/min (>60); Est Glom Filt Rate - Afr Amer 99 mL/min (>60); Estimated Creatinine Clearance 42.07 ml/min; Globulin 4.2 g/dL (2.2-4.2); Glucose 125 mg/dL (74-106); Potassium 3.7 mmol/L (3.5-5.1); Protein, Total 7.3 g/dL (6.4-8.2); Sodium Level 135 mmol/L (136-145)
--- NOTE | 2021-05-12 22:54 | ED.VIS.BACK ---
HPI History of Present Illness Chief Complaint: Back Onset/Context/Timing Onset: Yesterday Context: Gradual Onset Timing: Continuous Quality: Dull and - (Stabbing) Location: Thoracic, Lumbar and Right Leg Worsened by: improves with Movement Relieved by: Nothing Associated Symptoms Associated Symptoms: Radiation to Right Leg; Negative for Numbness, Tingling, Radiation to Left Leg, Fever, Abdominal Pain, Dysuria, Urinary Incontinence, Constipation and Fecal Incontinence Narrative Narrative: Patient presents with back pain that has been getting worse since yesterday. Patient had kyphoplasty of T8 and T9 yesterday. Patient states she has been taking her Percocet and tramadol at home with no relief. Patient states the pain radiates into her right lumbar area and right lower leg. Patient denies any paresthesias or weakness. Patient denies any fevers or chills. Patient denies any bowel or bladder changes. Patient denies any saddle anesthesia. Patient states her pain is worse with any movement. Patient states nothing seems to help with the pain. PFSH PFSH Medical History Asthma Chronic pain COPD (chronic obstructive pulmonary disease) Diabetes Diabetes DVT (deep venous thrombosis) Knee arthropathy Lung cancer Pulmonary embolism Smoker Home Medications pramipexole 1.5 mg PO QHS 06/12/14 [History Last Taken 04/19/21] trazodone 100 mg PO QHS 06/12/14 [History Last Taken 05/28/16] ropinirole 2 mg PO QHS 10/20/15 [History Last Taken 04/19/21] albuterol sulfate 1 inhaler INHALATION Q4H PRN 07/01/16 [History Last Taken 03/17/21] atorvastatin 20 mg PO QHS 07/01/16 [History Last Taken 04/19/21] umeclidinium 62.5 mcg/actuation blister powder for inhalation 1 puff INHALATION DAILY 08/29/20 [History Last Taken 04/19/21] fluticasone furoate-vilanterol 1 puff INHALATION DAILY 10/15/20 [History Last Taken 04/19/21] amlodipine 5 mg PO DAILY 03/17/21 [History Last Taken 04/19/21] furosemide 20 mg PO DAILY 03/17/21 [History Last Taken 04/19/21] losartan 50 mg PO DAILY 03/17/21 [History Last Taken 04/19/21] sertraline 50 mg PO DAILY 03/17/21 [History Last Taken 04/19/21] acetaminophen 2 mg PO TID PRN PRN 04/19/21 [History Last Taken Unknown] calcium carbonate-vitamin D3 [Oyster Shell Calcium-Vit D3] 1 tab PO DAILY 04/19/21 [History Last Taken 04/19/21] hydrocodone-acetaminophen 1 tab PO BID 04/19/21 [History Last Taken 04/19/21] ibandronate 150 mg PO QMONTH 04/19/21 [History Last Taken Unknown] buprenorphine 1 patch TRANSDERMAL QWEEK 05/12/21 [History Last Taken Unknown] cephalexin 500 mg PO Q6H 05/12/21 [History Last Taken Unknown] tramadol 50 mg PO BID 05/12/21 [History Last Taken Unknown] Allergy/AdvReac Type Severity Reaction Status Date / Time bupropion HCl Allergy Hives Verified 05/12/21 20:53 [From Wellbutrin] gabapentin [From Neurontin] Allergy Hives Verified 05/12/21 20:53 moxifloxacin HCl Allergy Hives Verified 05/12/21 20:53 [From Avelox] Family History Other COPD (chronic obstructive pulmonary disease) Cancer Diabetes Heart disease Surgical History H/O hand surgery H/O knee surgery H/O: hysterectomy Status post lobectomy of lung Social History Smoking Status: Former smoker substance use type: does not use ROS ROS ED Constitutional Constitutional ED: Reports chills and subjective; Denies fever(s) Eyes Eyes: Denies blurry vision or change in vision ENT ENT ED: Denies rhinorrhea or sore throat Cardiovascular Cardiovascular: Denies chest pain or palpitations Respiratory/Chest Respiratory/Chest: Denies cough or dyspnea Gastrointestinal Gastrointestinal: Denies nausea or vomiting Genitourinary Genitourinary ED: Denies dysuria or hematuria Musculoskeletal Musculoskeletal: Reports back pain and neck pain Integumentary Denies abscess or rash Neurologic Neurologic: Reports headache(s); Denies weakness Allergic/Immunologic Allergic/Immunologic ED: Denies mouth swelling or urticaria EXAM Physical Exam Const Vital Signs: 05/12/21 20:53 05/13/21 01:27 Temperature 98.4 F Temperature Source Oral Pulse Rate 88 89 Respiratory Rate 22 H 15 Blood Pressure 138/62 H Blood Pressure Mean 87 Pulse Ox 92 99 Oxygen Delivery Method Room Air Positive well nourished, well developed and obese General Appearance ED: well developed Nutritional Appearance: obese HEENT Reports moist mucous membranes Neck supple and no JVD Resp normal respiratory effort and clear to auscultation bilaterally Cardio regular rate and regular rhythm GI normal to inspection, nondistended, normoactive bowel sounds and soft to palpation Back/Spine Thoracic Spine / Upper Back: paraspinal muscle tenderness right Lumbar Spine / Lower Back: ROM limited Extremity normal to inspection Neuro oriented x3 and no sensory deficits noted Sensorium / Orientation: alert Motor Exam: strength 5/5 throughout Psych mental status grossly normal MDM MDM MDM Narrative Medical decision making narrative: Patient was given a dose of Dilaudid and Zofran initially. CBC shows a slight leukocytosis of 11.2. Comprehensive metabolic profile was within normal limits. Patient was having persistent pain. Patient was given a repeat dose of Dilaudid. CT scan of the thoracic spine were obtained. There is recently treated T7-T8 kyphoplasty. There is a small amount of air in the right paraspinous musculature, most likely from the procedure. There is a small amount of air in the T7, T8 disc. There is no evidence of any abscess. There is no new fracture. This was interpreted by the radiologist and reviewed by myself. I attempted to contact the patient's pain management physician without success. Patient was given a repeat dose of Dilaudid. Patient was advised of her findings. Patient was instructed to follow-up with her primary care physician and pain management physician in 3 to 5 days. Patient understood and was agreeable with the plan. All questions were answered. Lab Data Labs: Laboratory Results - last 24 hr 05/12/21 05/12/21 21:18 21:18 WBC 11.2 H RBC 4.07 L Hgb 11.6 L Hct 36.4 L MCV 89.4 MCH 28.5 MCHC 31.9 L RDW Std Deviation 48.3 H RDW Coeff of Doretha 15.0 H Plt Count 317 MPV 10.0 Immature Gran % (Auto) 0.400 Neut % (Auto) 68.1 Lymph % (Auto) 22.3 [place] % (Auto) 7.6 Eos % (Auto) 1.2 Baso % (Auto) 0.4 Absolute Neuts (auto) 7.6 Absolute Lymphs (auto) 2.50 Nucleated RBC % 0 Sodium 135 L Potassium 3.7 Chloride 104 Carbon Dioxide 23.0 Anion Gap 8 BUN 15 Creatinine 0.74 Estim Creat Clear Calc 42.07 Est GFR (MDRD) Af Amer 99 Est GFR (MDRD) Non-Af 82 BUN/Creatinine Ratio 20.2 H Glucose 125 H Calcium 9.1 Total Bilirubin 0.30 AST 16 ALT 19 Alkaline Phosphatase 125 H Total Protein 7.3 Albumin 3.1 L Globulin 4.2 Albumin/Globulin Ratio 0.7 L Radiography Diagnostic Testing: Radiology Impression Thoracic Spine CT 05/12/21 22:20 IMPRESSION: 1. Recently treated T7 and T8 vertebral body compression deformities with kyphoplasty material. 2. Postprocedural small amounts of air in the right paraspinous musculature. Electronically Signed: Rosendo Hargrove MD at 23:00 EDT , Service support , Discharge Plan Triage Chief Complaint: Back ED Provider: Benjamin Metcalf Dx/Rx/DC Orders Clinical Impression: Postoperative back pain Instructions: ED Back Pain (Acute or Chronic) Prescriptions: No Action umeclidinium 62.5 mcg/actuation blister with device 1 puff INHALATION DAILY RF: 0 trazodone 100 MG tablet 100 mg PO QHS RF: 0 pramipexole 1.5 MG tablet 1.5 mg PO QHS RF: 0 ropinirole 2 MG tablet 2 mg PO QHS RF: 0 atorvastatin 20 MG tablet 20 mg PO QHS RF: 0 albuterol sulfate 2.5 MG/3 ML solution for nebulization 1 inhaler INHALATION Q4H PRN (Reason: Sob &/Or Wheezing) RF: 0 fluticasone furoate-vilanterol 1 EACH blister with device 1 puff INHALATION DAILY RF: 0 losartan 50 mg tablet 50 mg PO DAILY RF: 0 furosemide 20 mg tablet 20 mg PO DAILY RF: 0 sertraline 50 mg tablet 50 mg PO DAILY RF: 0 amlodipine 5 MG tablet 5 mg PO DAILY RF: 0 acetaminophen 500 mg tablet 2 mg PO TID PRN PRN (Reason: Pain) RF: 0 hydrocodone-acetaminophen 5-325 mg tablet 1 tab PO BID RF: 0 ibandronate 150 mg tablet 150 mg PO QMONTH RF: 0 calcium carbonate-vitamin D3 [Oyster Shell Calcium-Vit D3] 250-125 mg-unit tablet 1 tab PO DAILY RF: 0 tramadol 50 mg Tablet 50 mg PO BID RF: 0 cephalexin 500 mg Tablet 500 mg PO Q6H RF: 0 buprenorphine 10 mcg/hour Patch Weekly 1 patch TRANSDERMAL QWEEK RF: 0 Primary Care Provider: Heladio Edwards Referrals: Anya Mcbride MD [STAFF PHYSICIAN] - 3-5 Days Heladio Edwards MD [Primary Care Provider] - 5-7 Days Disposition Disposition: Home, Self Care Discharge Date/Time: 05/13/21 01:28
[2021-05-13] MEDS: HYDROmorphone 1 MG/ML Syringe 0.5 MG IV (01:20)
[2021-05-13 01:27] VITALS: PULSE 89; RESP 15; O2SAT 99
== END 2021-05-13 01:28 | disposition home or self-care (01) ==
PROVIDERS: Emergency Provider Emergency Medicine; PCP Family Medicine
DX: M54.6 Pain in thoracic spine (principal); M54.5 Low back pain; G89.18 Other acute postprocedural pain; I10 Essential (primary) hypertension; J44.9 Chronic obstructive pulmonary disease, unspecified; Z79.899 Other long term (current) drug therapy; Z87.891 Personal history of nicotine dependence
CPT/HCPCS: 72128; 80053; 85025; 96374; 96375; 96376; 99285; A4216; J2405

== ENCOUNTER 2021-05-14 14:02 | Emergency (ER) | payer MEDICARE, MEDICAID, SELFPAY ==
[2021-05-14] VITALS (8 sets, daily range): BP systolic 102–151; BP diastolic 62–95; PULSE 73–86; RESP 16–28; TEMP 36.4; O2SAT 88–99; BMI 33.1
--- NOTE | 2021-05-14 15:35 | CT_ITS ---
EXAM: CT ANGIOGRAPHY CHEST WITHOUT AND WITH INTRAVENOUS CONTRAST : 1950 CLINICAL INDICATION: Posterior back pain TECHNIQUE: Helically acquired angiography images were obtained of the chest without and with intravenous contrast. This CT exam was performed using one or more of the following dose reduction techniques: automated exposure control, adjustment of the mA and/or kV according to patient size, and/or use of iterative reconstruction technique. This report was created using [employer] report generation technology. MIP reconstructed images were created and reviewed. CONTRAST: IV 100mL [id number] COMPARISON: None. FINDINGS: PULMONARY ARTERIES: Unremarkable. Normal in caliber. No evidence of pulmonary embolism. AORTA: Moderate atherosclerotic changes of the thoracic aorta noted without evidence of aneurysm or dissection. GREAT VESSELS OF AORTIC ARCH: Unremarkable. Normal in caliber. No evidence of dissection. LUNGS AND PLEURAL SPACES: There is diffuse centrilobular pulmonary emphysema. Minor atelectatic change noted within the lingula. No mass. No pleural effusion or thickening. No pneumothorax. HEART: Unremarkable. Heart size is normal. No pericardial effusion. No signs of right heart strain. MEDIASTINUM: Unremarkable. No mediastinal or hilar adenopathy. Esophagus is unremarkable. No hiatal hernia. THYROID: Unremarkable. No thyroid lesions. BONES/JOINTS: Bony structures are diffusely osteoporotic. Vertebroplasty changes are noted at the T7 and T8 level. Mild T7 and moderate T8 vertebral body wedge compression deformity. No suspicious lytic or blastic abnormality. CT/CTA Chest W/WO Contrast IMPRESSION: 1. No evidence of thoracic aortic aneurysm or dissection. 2. Diffuse pulmonary emphysema. 3. Chronic appearing compression deformities of T7 and T8 associated with vertebroplasty change. Individualized dose optimization techniques were used for this CT. at 1741 Reported and signed by: Blaine Shaikh MD Electronically Signed: Blaine Shaikh MD at 17:39 EDT Tel , Service support ,
--- NOTE | 2021-05-14 15:35 | EKG12_ITS ---
Test Reason : Blood Pressure : / mmHG Vent. Rate : 072 BPM Atrial Rate : 072 BPM P-R Int : 200 ms QRS Dur : 096 ms QT Int : 426 ms P-R-T Axes : 069 039 032 degrees QTc Int : 466 ms Normal sinus rhythm Nonspecific T wave abnormality Abnormal ECG Confirmed by NEIDA RUSHING, BREE ([id number]), continuity editor JEFFREY DANIELS ([id number]) on 05/16/2021 1:57:26 PM Referred By: PEGGY Confirmed By:BREE CARRASQUILLO MD
--- NOTE | 2021-05-14 15:35 | RAD_ITS ---
History: chest pain EXAMINATION/TECHNIQUE: XR Chest 1 View: Portable COMPARISON: April 19, 2021 FINDINGS: LINES/DEVICES: None. LUNGS: No consolidation, edema or effusion. No pneumothorax. MEDIASTINUM AND CARDIOVASCULAR STRUCTURES: Cardiac silhouette not enlarged. Central airways and mediastinal contour are unremarkable. BONES AND SOFT TISSUES: Unremarkable. RAD/Chest 1 View (Portable) IMPRESSION: No radiographic evidence of acute cardiopulmonary disease. at 1730 Reported and signed by: Blaine Shaikh MD Electronically Signed: Blaine Shaikh MD at 17:29 EDT Tel , Service support ,
--- NOTE | 2021-05-14 15:38 | ED.VIS.BACK ---
HPI History of Present Illness Chief Complaint: Back Narrative Narrative: 70-year-old female with recent history of kyphoplasty presenting for the second time secondary to postoperative pain. On her last visit she had lab work done on as she also had a CT of the thoracic spine which showed kyphoplasty. At that time there was noted to be some subcutaneous air associated with the injection sites. Patient states that this was 2 days ago. Since that time she has continued to be on pain. She states she is on oxycodone, hydrocodone, morphine patch. Patient says nothing works to help her pain. Patient has not been able to get a hold of her pain management physician Dr. Carrasco reportedly. Patient states that today she became lightheaded when she tried to sit up. She complains of continued pain in her upper back. She denies any fever, chills. She denies loss of bladder or bowel control states she is urinating and defecating normally. She does not have a new cough. Patient does state that she was able to stand and visit with assistance in order to get onto the EMS cot. Patient does relate a history of pulmonary embolism. She states that she was placed on Eliquis prophylactically after left knee surgery. Patient states that she started having postoperative bleeding and was told to discontinue the prophylactic Eliquis and states she developed a pulmonary embolism. Since this was 6 months ago patient was having a procedure on her upper back patient states that she was told to discontinue Eliquis. PFSH PFSH Medical History Asthma Chronic pain COPD (chronic obstructive pulmonary disease) Diabetes Diabetes DVT (deep venous thrombosis) Knee arthropathy Lung cancer Pulmonary embolism Smoker Home Medications pramipexole 1.5 mg PO QHS 06/12/14 [History Last Taken 04/19/21] trazodone 100 mg PO QHS 06/12/14 [History Last Taken 05/28/16] ropinirole 2 mg PO QHS 10/20/15 [History Last Taken 04/19/21] albuterol sulfate 1 inhaler INHALATION Q4H PRN 07/01/16 [History Last Taken 03/17/21] atorvastatin 20 mg PO QHS 07/01/16 [History Last Taken 04/19/21] umeclidinium 62.5 mcg/actuation blister powder for inhalation 1 puff INHALATION DAILY 08/29/20 [History Last Taken 04/19/21] fluticasone furoate-vilanterol 1 puff INHALATION DAILY 10/15/20 [History Last Taken 04/19/21] amlodipine 5 mg PO DAILY 03/17/21 [History Last Taken 04/19/21] furosemide 20 mg PO DAILY 03/17/21 [History Last Taken 04/19/21] losartan 50 mg PO DAILY 03/17/21 [History Last Taken 04/19/21] sertraline 50 mg PO DAILY 03/17/21 [History Last Taken 04/19/21] acetaminophen 2 mg PO TID PRN PRN 04/19/21 [History Last Taken Unknown] calcium carbonate-vitamin D3 [Oyster Shell Calcium-Vit D3] 1 tab PO DAILY 04/19/21 [History Last Taken 04/19/21] hydrocodone-acetaminophen 1 tab PO BID 04/19/21 [History Last Taken 04/19/21] ibandronate 150 mg PO QMONTH 04/19/21 [History Last Taken Unknown] buprenorphine 1 patch TRANSDERMAL QWEEK 05/12/21 [History Last Taken Unknown] cephalexin 500 mg PO Q6H 05/12/21 [History Last Taken Unknown] tramadol 50 mg PO BID 05/12/21 [History Last Taken Unknown] Allergy/AdvReac Type Severity Reaction Status Date / Time bupropion HCl Allergy Hives Verified 05/14/21 14:06 [From Wellbutrin] gabapentin [From Neurontin] Allergy Hives Verified 05/14/21 14:06 moxifloxacin HCl Allergy Hives Verified 05/14/21 14:06 [From Avelox] Family History Other COPD (chronic obstructive pulmonary disease) Cancer Diabetes Heart disease Surgical History H/O hand surgery H/O knee surgery H/O: hysterectomy Status post lobectomy of lung Social History Smoking Status: Former smoker substance use type: does not use ROS ROS ED Constitutional Constitutional ED: Denies chills or fever(s) Eyes Eyes: Reports other Details: Blurry vision with standing ENT ENT ED: Denies rhinorrhea or sore throat Cardiovascular Cardiovascular: Denies chest pain or palpitations Respiratory/Chest Respiratory/Chest: Denies dyspnea or sputum Gastrointestinal Gastrointestinal: Reports nausea; Denies abdominal pain, constipation, diarrhea or vomiting Genitourinary Genitourinary ED: Denies dysuria or hematuria Musculoskeletal Musculoskeletal: Reports back pain; Denies neck pain Integumentary Denies rash Neurologic Neurologic: Reports headache(s); Denies paresthesias EXAM Physical Exam Const Vital Signs: 05/14/21 14:03 05/14/21 15:58 05/14/21 17:16 Temperature 97.6 F L Temperature Source Oral Pulse Rate 73 80 Respiratory Rate 28 H 16 Blood Pressure 140/62 H Blood Pressure Mean 88 Pulse Ox 96 94 99 Oxygen Delivery Method Room Air Room Air Nasal Cannula Oxygen Flow Rate (L/min) 4 05/14/21 17:20 05/14/21 17:49 05/14/21 18:31 Temperature Temperature Source Pulse Rate 81 Respiratory Rate 23 H 16 Blood Pressure 151/95 H Blood Pressure Mean 113 Pulse Ox 93 Oxygen Delivery Method Nasal Cannula Oxygen Flow Rate (L/min) 2 05/14/21 18:55 05/14/21 19:59 Temperature Temperature Source Pulse Rate 78 86 Respiratory Rate 21 H 20 H Blood Pressure 124/73 H 102/67 Blood Pressure Mean 90 Pulse Ox 98 92 Oxygen Delivery Method Nasal Cannula Oxygen Flow Rate (L/min) 2 Positive obese General Appearance ED: NAD; Negative for pallor Nutritional Appearance: obese HEENT Reports moist mucous membranes Negative for trauma Eyes PERRL and EOMs intact bilaterally Resp normal respiratory effort and clear to auscultation bilaterally Cardio regular rate and regular rhythm GI normal to inspection, nondistended, normoactive bowel sounds Back/Spine Back/Spine Narrative: Generalized thoracic spine tenderness bilaterally. No obvious deformities. No ecchymosis or rash. 2 small punctate wounds were previous kyphoplasty was performed to the do not look infected Psych mental status grossly normal Skin General Skin Exam: Negative for jaundice or pallor MDM MDM MDM Narrative Medical decision making narrative: Patient presenting for the second time the last few days for this upper back pain which has been persistent. She states her pain medications are not working. She is not had any follow-up with her pain management physician. Her lab work again today does not show anything infectious. Given the location of her pain I did check a troponin and this is negative. Chest x-ray on my interpretation shows no acute cardiopulmonary process and the radiologist does agree. Given her history of PE and she is currently off of her Eliquis I did obtain a CT of the chest which identifies no acute intrathoracic process nor does it identify anything new or abnormal about the thoracic spine. Urinalysis is negative. Patient has no signs or symptoms of a cauda equina syndrome. The lightheadedness that she is referring to on initial evaluation sounds like she sat up too fast and became lightheaded which only lasted a few seconds when she laid down. In ER today when she stood up to use the bedside commode she became short of breath. On reevaluation she was wheezing slightly. She was given some breathing treatments and she was able to be removed off of oxygen. She states she only uses oxygen at home when she sleeps. Discussed with Dr. Carrasco who stated that he could see her tomorrow in office to help try to help her pain. She was amenable to this plan. Impression: 1. Back pain status post kyphoplasty 2. Shortness of breath resolved Lab Data Labs: Laboratory Results - last 24 hr 05/14/21 05/14/21 05/14/21 15:50 15:50 17:55 WBC 10.0 RBC 4.61 Hgb 13.2 Hct 41.1 MCV 89.2 MCH 28.6 MCHC 32.1 RDW Std Deviation 46.7 H RDW Coeff of Doretha 14.6 Plt Count 339 MPV 9.4 Immature Gran % (Auto) 0.300 Neut % (Auto) 69.0 Lymph % (Auto) 21.9 [place] % (Auto) 6.5 Eos % (Auto) 1.9 Baso % (Auto) 0.4 Absolute Neuts (auto) 6.9 Absolute Lymphs (auto) 2.20 Nucleated RBC % 0 Sodium 136 Potassium 3.5 Chloride 100 Carbon Dioxide 28.0 Anion Gap 8 BUN 11 Creatinine 0.72 Estim Creat Clear Calc 43.91 Est GFR (MDRD) Af Amer 102 Est GFR (MDRD) Non-Af 84 BUN/Creatinine Ratio 15.2 Glucose 107 H Calcium 10.0 Troponin I High Sens 6 Urine Color Straw Urine Clarity Clear Urine pH 7.0 Ur Specific [place] 1.010 Urine Protein Negative Urine Glucose (UA) Normal Urine Ketones Negative Urine Occult Blood Negative Urine Nitrite Negative Urine Bilirubin Negative Urine Urobilinogen Normal Ur Leukocyte Esterase Negative Urine RBC 0-5 SEEN Urine WBC 0-5 SEEN Ur Squamous Epith Cells 0-5 SEEN Urine Bacteria 0 SEEN Urine Mucus 0 SEEN Radiography Diagnostic Testing: Radiology Impression Chest CTA 05/14/21 15:35 IMPRESSION: 1. No evidence of thoracic aortic aneurysm or dissection. 2. Diffuse pulmonary emphysema. 3. Chronic appearing compression deformities of T7 and T8 associated with vertebroplasty change. Individualized dose optimization techniques were used for this CT. at 1741 Reported and signed by: Blaine Shaikh MD Electronically Signed: Blaine Shaikh MD at 17:39 EDT Tel , Service support , Chest X-Ray 05/14/21 15:35 IMPRESSION: No radiographic evidence of acute cardiopulmonary disease. at 1730 Reported and signed by: Blaine Shaikh MD Electronically Signed: Blaine Shaikh MD at 17:29 EDT Tel , Service support , Discharge Plan Triage Chief Complaint: Back ED Provider: Miles Bernal Dx/Rx/DC Orders Instructions: ED Back Pain (Acute or Chronic) Prescriptions: No Action umeclidinium 62.5 mcg/actuation blister with device 1 puff INHALATION DAILY RF: 0 trazodone 100 MG tablet 100 mg PO QHS RF: 0 pramipexole 1.5 MG tablet 1.5 mg PO QHS RF: 0 ropinirole 2 MG tablet 2 mg PO QHS RF: 0 atorvastatin 20 MG tablet 20 mg PO QHS RF: 0 albuterol sulfate 2.5 MG/3 ML solution for nebulization 1 inhaler INHALATION Q4H PRN (Reason: Sob &/Or Wheezing) RF: 0 fluticasone furoate-vilanterol 1 EACH blister with device 1 puff INHALATION DAILY RF: 0 losartan 50 mg tablet 50 mg PO DAILY RF: 0 furosemide 20 mg tablet 20 mg PO DAILY RF: 0 sertraline 50 mg tablet 50 mg PO DAILY RF: 0 amlodipine 5 MG tablet 5 mg PO DAILY RF: 0 acetaminophen 500 mg tablet 2 mg PO TID PRN PRN (Reason: Pain) RF: 0 hydrocodone-acetaminophen 5-325 mg tablet 1 tab PO BID RF: 0 ibandronate 150 mg tablet 150 mg PO QMONTH RF: 0 calcium carbonate-vitamin D3 [Oyster Shell Calcium-Vit D3] 250-125 mg-unit tablet 1 tab PO DAILY RF: 0 tramadol 50 mg Tablet 50 mg PO BID RF: 0 cephalexin 500 mg Tablet 500 mg PO Q6H RF: 0 buprenorphine 10 mcg/hour Patch Weekly 1 patch TRANSDERMAL QWEEK RF: 0 Primary Care Provider: Heladio Edwards Referrals: Anya Mcbride MD [STAFF PHYSICIAN] - As soon as possible Heladio Edwards MD [Primary Care Provider] - Disposition Disposition: Home, Self Care Discharge Date/Time: 05/14/21 20:11
[2021-05-14] MEDS: HYDROmorphone 0.5 MG/0.5 ML SYRINGE IV ×2 (15:51→17:14)
[2021-05-14] MEDS: Ondansetron 4 MG/2 ML Vial IV (15:51)
[2021-05-14] MEDS: 0.9% Normal Saline 1,000 ML 1000 ML IV (15:51)
[2021-05-14 15:59] LABS: Absolute Neutrophil Count 6.9 X10^3/uL (2.0-7.7); Basophil# 0.04 X10^3/uL; Basophil% 0.4 % (0-1); Eosinophil# 0.19 X10^3/uL; Eosinophils% 1.9 % (0-5); Hematocrit 41.1 % (37-47); Hemoglobin 13.2 g/dL (12.0-15.0); Lymphocyte % 21.9 % (19-41); Mean Corp Hgb Conc 32.1 g/dL (32-36); Mean Corpuscular Hgb 28.6 pg (27.0-32.0); Mean Corpuscular Volume 89.2 fL (81-99); Mean Platelet Vol. 9.4 fl (6.2-12.0); Monocyte# 0.65 X10^3/uL; Monocyte% 6.5 % (0-10); NRBC Flagged by Analyzer 0 % (0-5); Neutrophil # 6.93 X10^3/uL (2.7-7.7); Platelet Count 339 K/mm3 (150-450); RBC Distribution Width CV 14.6 % (11.6-14.6); RBC Distribution Width SD 46.7 fl (35.1-43.9); Red Blood Count 4.61 M/mm3 (4.2-5.4)
[2021-05-14 16:21] LABS: Anion Gap 8 (5-15); BUN 11 mg/dL (7-18); BUN/Creat Ratio 15.2 RATIO (10-20); Chloride 100 mmol/L (98-107); Creatinine, Serum 0.72 mg/dL (0.55-1.02); EST Glomerular Filtration Rate 84 mL/min (>60); Est Glom Filt Rate - Afr Amer 102 mL/min (>60); Estimated Creatinine Clearance 43.91 ml/min; Glucose 107 mg/dL (74-106); Potassium 3.5 mmol/L (3.5-5.1); Sodium Level 136 mmol/L (136-145); Troponin-I HS 6 pg/mL (3.0-54.0)
[2021-05-14 18:04] LABS: Bacteria 0 SEEN /hpf (None Seen); Mucous, Urine 0 SEEN /hpf (<or=2+)
[2021-05-14 18:05] LABS: Color, Urine Straw (Yellow); Glucose, Dipstick Normal (Normal); Ketone-Dipstick Negative (Negative); Leukocyte Esterase-Dipstick Negative /ul (Negative); Nitrite-Dipstick Negative (Negative); Occult Blood-Urine Negative /ul (Negative); Protein-Dipstick Negative (Negative); Urine Bilirubin Dipstick Negative (Negative); Urine Clarity Clear (Clear); Urine Urobilinogen Normal (Normal)
[2021-05-14 18:20] LABS: Squamous Epithelial Cells - UA 0-5 SEEN /hpf (5-10)
[2021-05-14 18:23] LABS: Red Blood Cells-Urine 0-5 SEEN /hpf (0-5); White Blood Cells 0-5 SEEN /hpf (0-5)
[2021-05-14] MEDS: Ipratropium/Albuterol Sulfate 3 ML AMPUL.NEB INHALATION (18:30)
[2021-05-14] MEDS: Albuterol 2.5 MG/3 ML VIAL.NEB. INHALATION (18:30)
== END 2021-05-14 20:11 | disposition home or self-care (01) ==
PROVIDERS: Emergency Provider Student in an Organized Health Care Education/Training Program; PCP Family Medicine
DX: M54.6 Pain in thoracic spine (principal); G89.18 Other acute postprocedural pain; J43.9 Emphysema, unspecified; Z79.899 Other long term (current) drug therapy; Z86.718 Personal history of other venous thrombosis and embolism; Z86.711 Personal history of pulmonary embolism; Z87.891 Personal history of nicotine dependence
CPT/HCPCS: 71045; 71275; 80048; 81001; 84484; 85025; 93005; 94640; 96361; 96374; 96375; 96376; 99285; J7030; Q9967; J2405

== ENCOUNTER 2021-05-27 13:25 | Emergency (ER) | payer MEDICARE, MEDICAID, SELFPAY ==
[2021-05-27 13:26] VITALS: BP 133/63; PULSE 76; RESP 17; TEMP 36.6; O2SAT 94; BMI 36.3
--- NOTE | 2021-05-27 13:44 | EKG12_ITS ---
Test Reason : CP Blood Pressure : / mmHG Vent. Rate : 072 BPM Atrial Rate : 072 BPM P-R Int : 190 ms QRS Dur : 086 ms QT Int : 398 ms P-R-T Axes : 027 040 027 degrees QTc Int : 435 ms Normal sinus rhythm with sinus arrhythmia Normal ECG Confirmed by GOSIA RUSHING, JOLYL ([id number]), society editor AYANNA LORENZO ([id number]) on 05/29/2021 1:20:55 PM Referred By: CHIDI Confirmed By:JOLLY ELISE MD
--- NOTE | 2021-05-27 13:47 | EDS_ITS ---
HPI History of Present Illness Chief Complaint: Chest Pain Informant: patient Narrative Narrative: Triage note states patient presented with chest pain. Patient tells me she started with pain in the right upper quadrant. It initially radiated toward the lateral aspect of her abdomen. It then started wrapping around and settled in the epigastric area. She states it was dull. It was cramping in terms of increasing and decreasing but never went away. Started about 1030. She states is essentially gone now. The pain was never up into her chest. At no time did she feel short of breath nauseated or get diaphoretic. Nothing seems to really make it better or worse. Patient is has never had stents. She has had a heart catheterization last in about 2018. She states she had 3 vessels that had minimal blockages in 1 that had about 65%. She did have kyphoplasty a few weeks ago but that area is not really hurting any more than it has been. This did not radiate to that area nor come from that area. PFSH PFSH Medical History Asthma Chronic pain COPD (chronic obstructive pulmonary disease) Diabetes Diabetes DVT (deep venous thrombosis) Knee arthropathy Lung cancer Pulmonary embolism Smoker Home Medications pramipexole 1.5 mg PO QHS 06/12/14 [History Last Taken 04/19/21] trazodone 100 mg PO QHS 06/12/14 [History Last Taken 05/28/16] ropinirole 2 mg PO QHS 10/20/15 [History Last Taken 04/19/21] albuterol sulfate 1 inhaler INHALATION Q4H PRN 07/01/16 [History Last Taken 03/17/21] atorvastatin 20 mg PO QHS 07/01/16 [History Last Taken 04/19/21] umeclidinium 62.5 mcg/actuation blister powder for inhalation 1 puff INHALATION DAILY 08/29/20 [History Last Taken 04/19/21] fluticasone furoate-vilanterol 1 puff INHALATION DAILY 10/15/20 [History Last Taken 04/19/21] amlodipine 5 mg PO DAILY 03/17/21 [History Last Taken 04/19/21] furosemide 20 mg PO DAILY 03/17/21 [History Last Taken 04/19/21] losartan 50 mg PO DAILY 03/17/21 [History Last Taken 04/19/21] sertraline 50 mg PO DAILY 03/17/21 [History Last Taken 04/19/21] acetaminophen 2 mg PO TID PRN PRN 04/19/21 [History Last Taken Unknown] calcium carbonate-vitamin D3 [Oyster Shell Calcium-Vit D3] 1 tab PO DAILY 04/19/21 [History Last Taken 04/19/21] hydrocodone-acetaminophen 1 tab PO BID 04/19/21 [History Last Taken 04/19/21] ibandronate 150 mg PO QMONTH 04/19/21 [History Last Taken Unknown] buprenorphine 1 patch TRANSDERMAL QWEEK 05/12/21 [History Last Taken Unknown] cephalexin 500 mg PO Q6H 05/12/21 [History Last Taken Unknown] tramadol 50 mg PO BID 05/12/21 [History Last Taken Unknown] hydromorphone 2 mg PO TID 05/27/21 [History Last Taken Unknown] Allergy/AdvReac Type Severity Reaction Status Date / Time bupropion HCl Allergy Hives Verified 05/27/21 13:26 [From Wellbutrin] gabapentin [From Neurontin] Allergy Hives Verified 05/27/21 13:26 moxifloxacin HCl Allergy Hives Verified 05/27/21 13:26 [From Avelox] Family History Other COPD (chronic obstructive pulmonary disease) Cancer Diabetes Heart disease Surgical History H/O hand surgery H/O knee surgery H/O: hysterectomy History of back surgery Status post lobectomy of lung Social History Smoking Status: Former smoker substance use type: does not use ROS ROS ED Constitutional Constitutional ED: Denies chills, fever(s) or sweats Eyes Eyes: Denies change in vision ENT ENT ED: Denies rhinorrhea or sore throat Cardiovascular Cardiovascular: Denies chest pain, palpitations or racing heartbeat Respiratory/Chest Respiratory/Chest: Denies cough, dyspnea or dyspnea on exertion Gastrointestinal Gastrointestinal: Reports abdominal pain; Denies constipation, diarrhea, melena, nausea or vomiting Genitourinary Genitourinary ED: Denies dysuria or hematuria Musculoskeletal Musculoskeletal: Reports other Details: ?Patient has chronic arthralgias and has some back pain from her procedure but is not different in any way. Integumentary Denies abscess or rash Neurologic Neurologic: Denies paresthesias or weakness Psychiatric Psychiatric: Denies anxiety or depression Endocrine Endocrinology: Denies polydipsia or polyuria Allergic/Immunologic Allergic/Immunologic ED: Denies urticaria EXAM Physical Exam Const Vital Signs: 05/27/21 13:26 05/27/21 13:30 05/27/21 13:57 Temperature 97.8 F Temperature Source Oral Pulse Rate 76 Respiratory Rate 17 Respiratory Effort Normal Non-Labored Respiratory Pattern Normal Blood Pressure 133/63 H Blood Pressure Mean 86 Pulse Ox 94 97 Oxygen Delivery Method Room Air Room Air 05/27/21 14:34 05/27/21 16:00 Temperature Temperature Source Pulse Rate 75 87 Respiratory Rate 22 H 16 Respiratory Effort Respiratory Pattern Blood Pressure 140/59 H 133/70 H Blood Pressure Mean 86 91 Pulse Ox 94 97 Oxygen Delivery Method Room Air Room Air Positive well nourished, well developed and obese Constitutional Narrative: Patient is sitting quietly in bed. She is talking to individual on the phone. She looks relaxed and comfortable. General Appearance ED: well developed and NAD Nutritional Appearance: obese HEENT Reports moist mucous membranes Negative for trauma or tenderness Eyes General Eye ED: Negative for pale conjunctiva or scleral icterus Neck no lymphadenopathy and no JVD Chest Wall inspection of chest normal and palpation of chest normal Resp normal respiratory effort and clear to auscultation bilaterally Resp Narrative: No pain with deep breaths. Lungs are completely clear. No chest wall tenderness. Effort and Inspection: Negative for pain with movement Auscultation: Negative for rales, rhonchi or wheezes Cardio regular rate, regular rhythm and no murmurs Rate: other Other Details: Peripheral pulses are equal. GI normal to inspection, nondistended, normoactive bowel sounds GI Narrative: Patient has minimal tenderness toward the epigastric area. No right upper quadrant tenderness. The patient states her pain is essentially gone now. Palpation: soft Back/Spine no CVA tenderness Extremity normal to inspection General Extremety ED: Negative for tenderness Neuro oriented x3 Sensorium / Orientation: alert Psych mental status grossly normal Attitude: No agitated Mood & Affect: Negative for depressed, anxious or tearful Skin no rashes or lesions noted and no wounds MDM MDM MDM Narrative Medical decision making narrative: Patient's blood work shows no marked abnormalities. Lipase liver function test is good. Troponin is also normal and similar to the patient's own prior. Patient did state that she had a little bit of a sour stomach here. We gave her some Zofran. I gave her Dilaudid not because this pain came back but because she is due for her Dilaudid for her back. Her story is much more consistent with biliary disease but she has no more abdominal pain. Those symptoms are gone. However we will at least do a repeat troponin. Patient will be reassessed. Repeat troponin and EKG show no change. Patient's been asymptomatic. She now states that she had not eaten anything all day. She thinks this was her stomach and acid reflux. She did ask for food here. She states that it tasted w onderful. She felt great. Although this patient has risk factors for heart disease, her complaint and symptoms really were not chest pain. This was really abdominal pain in the right upper quadrant epigastric area. I did the repeat troponin just out of an extra margin of safety. I think she is okay to go home. She will follow up with her physicians. We did discuss returning if she is having recurrent symptoms. Because her symptoms had resolved, and her exam was benign, we did not do an ultrasound here. Lab Data Attestation: I reviewed the patient's lab results. Labs: Laboratory Results - last 24 hr 05/27/21 05/27/21 05/27/21 13:20 13:20 15:47 WBC 9.6 RBC 4.50 Hgb 12.9 Hct 40.6 MCV 90.2 MCH 28.7 MCHC 31.8 L RDW Std Deviation 50.6 H RDW Coeff of Doretha 15.4 H Plt Count 394 MPV 9.6 Immature Gran % (Auto) 0.600 Neut % (Auto) 53.0 Lymph % (Auto) 34.9 [place] % (Auto) 8.7 Eos % (Auto) 2.3 Baso % (Auto) 0.5 Absolute Neuts (auto) 5.1 Absolute Lymphs (auto) 3.34 Nucleated RBC % 0 Sodium 137 Potassium 4.1 Chloride 103 Carbon Dioxide 28.0 Anion Gap 6 BUN 27 H Creatinine 0.70 Estim Creat Clear Calc 42.07 Est GFR (MDRD) Af Amer 106 Est GFR (MDRD) Non-Af 87 BUN/Creatinine Ratio 38.6 H Glucose 109 H Calcium 9.3 Total Bilirubin 0.30 AST 12 L ALT 19 Alkaline Phosphatase 100 Troponin I High Sens 6 6 Total Protein 7.6 Albumin 3.6 Globulin 4.0 Albumin/Globulin Ratio 0.9 Lipase 111 Radiography Diagnostic Testing: Radiology Impression Chest X-Ray 05/27/21 13:47 IMPRESSION: No radiographic evidence of acute cardiopulmonary disease. at 1430 Reported and signed by: Geovanni Martin MD Electronically Signed: Geovanni Martin MD at 14:29 EDT Tel , Service support , EKG Initial EKG: Comments: Done for epigastric and upper abdominal pain read by me shows normal sinus rhythm with a rate of 72. There is some slight sinus arrhythmia. No acute ST elevation or depression consistent with infarct or ischemia. There are some mild nonspecific changes. NM interval, QRS duration and QTc normal. Discharge Plan Triage Chief Complaint: Chest Pain ED Provider: Xander Nails Dx/Rx/DC Orders Clinical Impression: Abdominal pain Instructions: Abdominal Pain Prescriptions: No Action umeclidinium 62.5 mcg/actuation blister with device 1 puff INHALATION DAILY RF: 0 trazodone 100 MG tablet 100 mg PO QHS RF: 0 pramipexole 1.5 MG tablet 1.5 mg PO QHS RF: 0 ropinirole 2 MG tablet 2 mg PO QHS RF: 0 atorvastatin 20 MG tablet 20 mg PO QHS RF: 0 albuterol sulfate 2.5 MG/3 ML solution for nebulization 1 inhaler INHALATION Q4H PRN (Reason: Sob &/Or Wheezing) RF: 0 fluticasone furoate-vilanterol 1 EACH blister with device 1 puff INHALATION DAILY RF: 0 losartan 50 mg tablet 50 mg PO DAILY RF: 0 furosemide 20 mg tablet 20 mg PO DAILY RF: 0 sertraline 50 mg tablet 50 mg PO DAILY RF: 0 amlodipine 5 MG tablet 5 mg PO DAILY RF: 0 acetaminophen 500 mg tablet 2 mg PO TID PRN PRN (Reason: Pain) RF: 0 hydrocodone-acetaminophen 5-325 mg tablet 1 tab PO BID RF: 0 ibandronate 150 mg tablet 150 mg PO QMONTH RF: 0 calcium carbonate-vitamin D3 [Oyster Shell Calcium-Vit D3] 250-125 mg-unit tablet 1 tab PO DAILY RF: 0 tramadol 50 mg Tablet 50 mg PO BID RF: 0 cephalexin 500 mg Tablet 500 mg PO Q6H RF: 0 buprenorphine 10 mcg/hour Patch Weekly 1 patch TRANSDERMAL QWEEK RF: 0 hydromorphone 2 mg tablet 2 mg PO TID RF: 0 Primary Care Provider: Helaido Edwards Referrals: Heladio Edwards MD [Primary Care Provider] - As soon as possible Disposition Disposition: Home, Self Care
--- NOTE | 2021-05-27 13:47 | RAD_ITS ---
HISTORY: chest pain EXAMINATION/TECHNIQUE: XR Chest 1 View: Portable AP upright chest x-ray COMPARISON: 05/14/21 FINDINGS: LINES/DEVICES: None. LUNGS: No consolidation, edema or effusion. No pneumothorax. MEDIASTINUM AND CARDIOVASCULAR STRUCTURES: Cardiac silhouette not enlarged. Central airways and mediastinal contour are unremarkable. BONES AND SOFT TISSUES: No acute bony abnormalities. RAD/Chest 1 View (Portable) IMPRESSION: No radiographic evidence of acute cardiopulmonary disease. at 1430 Reported and signed by: Geovanni Martin MD Electronically Signed: Geovanni Martin MD at 14:29 EDT Tel , Service support ,
[2021-05-27 13:52] LABS: Absolute Lymphocyte Count 3.34 X10^3/uL (0.83-4.51); Absolute Neutrophil Count 5.1 X10^3/uL (2.0-7.7); Basophil# 0.05 X10^3/uL; Basophil% 0.5 % (0-1); Eosinophil# 0.22 X10^3/uL; Eosinophils% 2.3 % (0-5); Hematocrit 40.6 % (37-47); Hemoglobin 12.9 g/dL (12.0-15.0); Lymphocyte # 3.34 X10^3/ul (0.83-4.51); Lymphocyte % 34.9 % (19-41); Mean Corp Hgb Conc 31.8 g/dL (32-36); Mean Corpuscular Hgb 28.7 pg (27.0-32.0); Mean Corpuscular Volume 90.2 fL (81-99); Mean Platelet Vol. 9.6 fl (6.2-12.0); Monocyte# 0.83 X10^3/uL; Monocyte% 8.7 % (0-10); NRBC Flagged by Analyzer 0 % (0-5); Neutrophil # 5.07 X10^3/uL (2.7-7.7); Platelet Count 394 K/mm3 (150-450); RBC Distribution Width CV 15.4 % (11.6-14.6); RBC Distribution Width SD 50.6 fl (35.1-43.9); White Blood Count 9.6 K/mm3 (4.4-11.0)
[2021-05-27 13:57] VITALS: O2SAT 97
[2021-05-27 14:05] LABS: ALB/GLOB Ratio 0.9 RATIO (0.9-2.4); AST(SGOT) 12 U/L (15-37); Alanine Aminotransfer ALT/SGPT 19 U/L (13-56); Albumin, Serum 3.6 g/dL (3.2-5.0); Alkaline Phosphatase 100 U/L (45-117); Anion Gap 6 (5-15); BUN 27 mg/dL (7-18); BUN/Creat Ratio 38.6 RATIO (10-20); Calcium,Total 9.3 mg/dL (8.5-10.1); Chloride 103 mmol/L (98-107); EST Glomerular Filtration Rate 87 mL/min (>60); Est Glom Filt Rate - Afr Amer 106 mL/min (>60); Estimated Creatinine Clearance 42.07 ml/min; Glucose 109 mg/dL (74-106); Lipase 111 U/L (73-393); Potassium 4.1 mmol/L (3.5-5.1); Protein, Total 7.6 g/dL (6.4-8.2); Sodium Level 137 mmol/L (136-145); Troponin-I HS 6 pg/mL (3.0-54.0)
[2021-05-27 14:34] VITALS: BP 140/59; PULSE 75; RESP 22; O2SAT 94
[2021-05-27] MEDS: Ondansetron 4 MG/2 ML Vial IV (14:44)
[2021-05-27] MEDS: HYDROmorphone 0.5 MG/0.5 ML SYRINGE IV (14:55)
--- NOTE | 2021-05-27 15:43 | EKG12_ITS ---
Test Reason : REPEAT CP Blood Pressure : / mmHG Vent. Rate : 068 BPM Atrial Rate : 068 BPM P-R Int : 204 ms QRS Dur : 088 ms QT Int : 410 ms P-R-T Axes : 033 039 040 degrees QTc Int : 435 ms Sinus rhythm with marked sinus arrhythmia Otherwise normal ECG Confirmed by GOSIA RUSHING, JOLLY ([id number]), associate entertainment editor AYANNA LORENZO ([id number]) on 05/29/2021 1:21:11 PM Referred By: KAYLEIGH Confirmed By:JOLLY ELISE MD
[2021-05-27 16:00] VITALS: BP 133/70; PULSE 87; RESP 16; O2SAT 97
[2021-05-27 16:08] LABS: Troponin-I HS 6 pg/mL (3.0-54.0)
[2021-05-27 17:09] VITALS: BP 113/91; PULSE 83; RESP 16; O2SAT 92
== END 2021-05-27 17:09 | disposition home or self-care (01) ==
PROVIDERS: Emergency Provider Emergency Medicine; PCP Family Medicine
DX: R10.11 Right upper quadrant pain (principal); E66.9 Obesity, unspecified; Z87.891 Personal history of nicotine dependence; Z86.718 Personal history of other venous thrombosis and embolism; Z86.711 Personal history of pulmonary embolism; Z85.118 Personal history of other malignant neoplasm of bronchus and lung
CPT/HCPCS: 71045; 80053; 83690; 84484; 85025; 93005; 96374; 96375; 99285; A4216; J2405

== ENCOUNTER 2021-10-20 16:26 | Observation (INO) | payer MEDICARE, MEDICAID, SELFPAY ==
[2021-10-20] VITALS (8 sets, daily range): BP systolic 102–134; BP diastolic 63–85; PULSE 72–78; RESP 12–20; TEMP 36.2–36.4; O2SAT 95–100; BMI 33.8; BMI 33.9
--- NOTE | 2021-10-20 16:44 | EKG12_ITS ---
Test Reason : SOB Blood Pressure : / mmHG Vent. Rate : 057 BPM Atrial Rate : 057 BPM P-R Int : 214 ms QRS Dur : 084 ms QT Int : 446 ms P-R-T Axes : 034 034 051 degrees QTc Int : 434 ms Sinus bradycardia with 1st degree A-V block Nonspecific T wave abnormality Abnormal ECG Confirmed by NEIDA RUSHING, BREE ([id number]), newspaper or periodical editor AYANNA LORENZO ([id number]) on 10/23/2021 12:10:26 PM Referred By: RHONDA VICTOR Confirmed By:BREE CARRASQUILLO MD
--- NOTE | 2021-10-20 16:52 | RAD_ITS ---
STUDY: X-RAY CHEST REASON FOR EXAM: Female, 71 years old. Increased shortness of breath since stent placement in July 2021 TECHNIQUE: Single AP portable view of the chest. COMPARISON: 05/27/2021. FINDINGS: The lungs are clear and expanded. There is no demonstrated pleural abnormality. Normal size heart. Normal mediastinum and fortino. Normal visualized pulmonary arteries. There is atherosclerotic calcification of the aortic arch with tortuosity. No visualized osseous changes. There is no demonstrated abnormality of the visualized soft tissue structures of the upper abdomen. RAD/Chest 1 View (Portable) IMPRESSION: No acute abnormality or interval change when compared to the prior study. Electronically Signed: Elfego Omer DO at 17:39 EST ,
[2021-10-20 19:24] LABS: Absolute Lymphocyte Count 2.59 X10^3/uL (0.83-4.51); Absolute Neutrophil Count 5.3 X10^3/uL (2.0-7.7); Basophil# 0.04 X10^3/uL; Basophil% 0.5 % (0-1); Eosinophil# 0.15 X10^3/uL; Eosinophils% 1.7 % (0-5); Hematocrit 41.7 % (37-47); Lymphocyte # 2.59 X10^3/ul (0.83-4.51); Lymphocyte % 29.9 % (19-41); Mean Corp Hgb Conc 31.2 g/dL (32-36); Mean Corpuscular Hgb 27.8 pg (27.0-32.0); Mean Corpuscular Volume 89.3 fL (81-99); Mean Platelet Vol. 9.9 fl (6.2-12.0); Monocyte# 0.51 X10^3/uL; Monocyte% 5.9 % (0-10); NRBC Flagged by Analyzer 0 % (0-5); Neutrophil # 5.34 X10^3/uL (2.7-7.7); Neutrophil % 61.7 % (47-70); Platelet Count 322 K/mm3 (150-450); RBC Distribution Width CV 15.6 % (11.6-14.6); RBC Distribution Width SD 50.6 fl (35.1-43.9); Red Blood Count 4.67 M/mm3 (4.2-5.4); White Blood Count 8.7 K/mm3 (4.4-11.0)
[2021-10-20 19:38] LABS: Anion Gap 5 (5-15); BUN 18 mg/dL (7-18); BUN/Creat Ratio 21.2 RATIO (10-20); Calcium,Total 9.2 mg/dL (8.5-10.1); Chloride 108 mmol/L (98-107); Creatinine, Serum 0.85 mg/dL (0.55-1.02); EST Glomerular Filtration Rate 70 mL/min (>60); Est Glom Filt Rate - Afr Amer 84 mL/min (>60); Estimated Creatinine Clearance 48.76 ml/min; Glucose 158 mg/dL (74-106); Potassium 3.9 mmol/L (3.5-5.1); Sodium Level 141 mmol/L (136-145)
--- NOTE | 2021-10-20 20:12 | PCM.HP.STD ---
HPI - General General Date of Admission: 10/20/[address] ANNE, is a 71 F with a significant history of tobacco abuse; pulmonary embolism; COPD and diabetes mellitus; ischemic cardiomyopathy status post stent in July 2021 who presents to the emergency department with shortness of breath. Because shortness of breath he is unable to take care of herself. She is locating to getting into cardiac rehab at [facility]. After her stent was placed in July 2021 at [facility] in [place] she was told she would need cardiac rehab. Other cardiac rehab was arranged at [facility]. She has to be at [facility] 3 times in a week for 3 months. She is unable to make the journey to [place] and has been trying to get into cardiac rehab at [facility]. She came to emergency department for help with a possibly getting to a transitional care unit and doing cardiac rehab. [facility] Medical History Asthma Chronic pain COPD (chronic obstructive pulmonary disease) Diabetes Diabetes DVT (deep venous thrombosis) Knee arthropathy Lung cancer Pulmonary embolism Smoker Home Medications pramipexole 1.5 mg PO QHS 06/12/14 [History Last Taken 10/19/21] trazodone 100 mg PO QHS 06/12/14 [History Last Taken 10/19/21] ropinirole 2 mg PO QHS 10/20/15 [History Last Taken 10/19/21] umeclidinium 62.5 mcg/actuation blister powder for inhalation 1 puff INHALATION DAILY 08/29/20 [History Last Taken 10/20/21] amlodipine 5 mg PO DAILY 03/17/21 [History Last Taken 10/20/21] furosemide 20 mg PO DAILY 03/17/21 [History Last Taken 10/20/21] losartan 50 mg PO DAILY 03/17/21 [History Last Taken 10/20/21] sertraline 50 mg PO DAILY 03/17/21 [History Last Taken 10/20/21] calcium carbonate-vitamin D3 [Oyster Shell Calcium-Vit D3] 1 tab PO DAILY 04/19/21 [History Last Taken 10/20/21] ibandronate 150 mg PO QMONTH 04/19/21 [History Last Taken 09/27/21] tramadol 50 mg PO BID 05/12/21 [History Last Taken 10/19/21] atorvastatin 80 mg PO QHS 10/20/21 [History Last Taken 10/19/21] azithromycin 250 mg PO DAILY 10/20/21 [History Last Taken 10/20/21] clopidogrel 75 mg PO DAILY 10/20/21 [History Last Taken 10/20/21] fluticasone furoate-vilanterol [Breo Ellipta] 1 inh INHALATION DAILY 10/20/21 [History Last Taken 10/20/21] potassium chloride 10 meq PO DAILY 10/20/21 [History Last Taken 10/19/21] Allergy/AdvReac Type Severity Reaction Status Date / Time bupropion HCl Allergy Hives Verified 10/20/21 16:39 [From Wellbutrin] gabapentin [From Neurontin] Allergy Hives Verified 10/20/21 16:39 moxifloxacin HCl Allergy Hives Verified 10/20/21 16:39 [From Avelox] Family History Other COPD (chronic obstructive pulmonary disease) Cancer Diabetes Heart disease Surgical History H/O hand surgery H/O knee surgery H/O: hysterectomy History of back surgery Status post lobectomy of lung Social History Smoking Status: Former smoker substance use type: does not use ROS ROS Narrative Constitutional: Reports fatigue denies fever, chills, and change in weight Eyes: Denies blurry vision, change in eye color, change in vision, discharge from eye(s), double vision, erythema, eye pain, loss of vision or other HEENT: Denies abnormal hearing, dysphagia, ear pain, epistaxis, headache(s), hearing loss, nasal congestion, nasal discharge, post nasal drip, sinus pressure, sore throat or other Cardiovascular: Denies chest pain or palpitations. Report intermittent swelling of feet Respiratory/Chest: Reports productive cough. Reports wheezes. Reports shortness of breath Gastrointestinal: Denies abdominal pain, coffee ground emesis, constipation, diarrhea, dyspepsia, hematemesis, hematochezia, loose stools, melena, nausea, vomiting or other Genitourinary: Denies burning urination, difficulty urinating, dysuria, hematuria, nocturia, urinary frequency, urinary hesitancy, urinary incontinence, urinary urgency or other Musculoskeletal: Denies arthralgias, back pain, joint pain, joint stiffness, jmyalgias, neck pain or other Neurologic: Denies abnormal gait, abnormal speech, confusion, disequilibrium, dizziness, focal weakness, headache(s), numbness, paresthesias, seizure-like activity, seizures, syncope, tingling, tremor(s) or other Psychiatric: Denies anxiety, depression, homicidal ideation, suicidal ideation or other Endocrinology: Denies change in body appearance, cold intolerance, excessive sweating, heat intolerance, polydipsia, polyuria or other Hematologic/Lymphatic: Denies anemia, easy bleeding, easy bruising, lymphadenopathy or other Integumentary: Denies rashes Allergic/Immunologic: Denies rhinitis, hives, eczema, asthma or other Vital Signs Vital Signs Vital Signs: 10/20/21 16:37 10/20/21 19:07 10/20/21 19:09 Temperature 97.6 F L Temperature Source Temporal Pulse Rate 73 Respiratory Rate 18 20 H Respiratory Effort Short of Breath Respiratory Depth Normal Respiratory Pattern Normal Blood Pressure 128/63 H Blood Pressure Mean 84 Pulse Ox 100 100 Oxygen Delivery Method Room Air Nasal Cannula Room Air Oxygen Flow Rate (L/min) 2 10/20/21 19:10 Temperature 97.1 F L Temperature Source Temporal Pulse Rate 75 Respiratory Rate 19 H Respiratory Effort Respiratory Depth Respiratory Pattern Blood Pressure 102/85 H Blood Pressure Mean 90 Pulse Ox 100 Oxygen Delivery Method Room Air Oxygen Flow Rate (L/min) Weight Weight: 86.636 kg Body Mass Index (BMI) 33.8 Physical Exam Narrative Physical exam: General: Well-nourished, well-developed. Head: Normocephalic, atraumatic, no tenderness Eyes: PERRLA, EOMI ENT, no trauma, moist mucous membranes, no rhinorrhea Neck: Nontender, full range of motion, no spinal tenderness, deformities, step-off CVS: Regular rate and rhythm. S1-S2 present. No murmur, gallop or rub. Respiratory : Wheezes. Chest wall nontender. Abdomen: Soft, nontender, nondistended, normal bowel sounds, no masses : Deferred Back: Nontender, no CVA tenderness, no midline spinal tenderness, deformities, step-offs Extremities: Nontender full range of motion, no trauma Skin: Normal color, no trauma, abrasions Neuro: Alert, oriented, cranial nerves II through XII grossly intact. Psychiatry: Normal mood. Normal affect. Not depressed. Not anxious. Results Lab / Micro Data Result Diagrams: 10/20/21 19:00 10/20/21 19:00 Labs: Laboratory Results - last 24 hr 10/20/21 19:00: WBC 8.7, RBC 4.67, Hgb 13.0, Hct 41.7, MCV 89.3, MCH 27.8, MCHC 31.2 L, RDW Std Deviation 50.6 H, RDW Coeff of Doretha 15.6 H, Plt Count 322, MPV 9.9, Immature Gran % (Auto) 0.300, Neut % (Auto) 61.7, Lymph % (Auto) 29.9, [place] % (Auto) 5.9, Eos % (Auto) 1.7, Baso % (Auto) 0.5, Absolute Neuts (auto) 5.3, Absolute Lymphs (auto) 2.59, Nucleated RBC % 0 10/20/21 19:00: Sodium 141, Potassium 3.9, Chloride 108 H, Carbon Dioxide 28.0, Anion Gap 5, BUN 18, Creatinine 0.85, Estim Creat Clear Calc 48.76, Est GFR (MDRD) Af Amer 84, Est GFR (MDRD) Non-Af 70, BUN/Creatinine Ratio 21.2 H, Glucose 158 H, Calcium 9.2 Micro: Microbiology 10/20/21 18:33 Nasal Secretion SARS-CoV-2 Antigen (Rapid) - Final Radiology Impression Chest X-Ray 10/20/21 16:52 IMPRESSION: No acute abnormality or interval change when compared to the prior study. Electronically Signed: Elfego Omer DO at 17:39 EST Reading Location ID and State: [address] [place] [address] Tel [phone], Service support , Assessment & Plan Assessment/Plan (1) Debility: PLAN: Debility secondary to ischemic cardiomyopathy Chest x-ray was visualized and independently interpreted. Chest x-ray with large cardiac silhouette ports but no acute cardiopulmonary process. CBC with normal white count; normal hemoglobin and normal platelets. Chemistry with creatinine at baseline. PT and OT to work with patient. Case management consult for disposition. Review of requested the patient had an echocardiogram in the hospital system on 04/19/2021. Echocardiogram at that time showed estimated ejection fraction of 60% with stage I diastolic dysfunction. Mild tricuspid valve insufficiency. Pulmonary artery systolic pressure was 36 mmHg. Fluid restriction ordered. Cardiac diet ordered. Hypertension Blood pressure is stable Home medications continued. Trend blood pressure and adjust blood pressure medications as necessary. CKD stage II Stable Tobacco abuse She reports quitting about a week and a half ago. Counseled. DVT prophylaxis: Subcutaneous lovenox ordered. Charges/Coding Visit Charges OBSV E&M: 95986 Initial observation care L2
--- NOTE | 2021-10-20 20:15 | ED.VIS.DYS ---
HPI History of Present Illness Chief Complaint: Shortness of Breath Informant: patient Onset/Context/Timing Onset: Month(s) Context: gradual Timing: Intermittent Quality: Positive for Dyspnea on exertion Current Severity: Mild Maximum Severity: Mild Worsened by: Exertion Relieved by: Rest Associated Symptoms Chest Pain: Positive for None Narrative Narrative: 71-year-old female extensive past medical history of COPD, CAD with 1 stent placed in July and prior pulmonary emboli. On Plavix. Patient states that ever since July when she had her cardiac stent she has been short of breath. That did not improve her symptoms. They are trying to get her symptoms resolved with cardiac rehabilitation she is having issues with getting that completed. She spoke to the [facility] today they told her to come the hospital because she does not think she can take care of herself at home anymore because of her shortness of breath wants to be admitted to the hospital and start start some type of rehabilitation program. She denies any nausea or vomiting. She denies any fever. She denies any chest pain. PE Risk Factors: Positive for Prior DVT or PE; Negative for Cancer, OCP + Smoking + > 35, Recent immobilization, Recent surgery and Recent travel Prior similar symptoms: Yes Recent Illness/Hospitalization: No PFSH PFSH Medical History Asthma Chronic pain COPD (chronic obstructive pulmonary disease) Diabetes Diabetes DVT (deep venous thrombosis) Knee arthropathy Lung cancer Pulmonary embolism Smoker Home Medications pramipexole 1.5 mg PO QHS 06/12/14 [History Last Taken 04/19/21] trazodone 100 mg PO QHS 06/12/14 [History Last Taken 05/28/16] ropinirole 2 mg PO QHS 10/20/15 [History Last Taken 04/19/21] umeclidinium 62.5 mcg/actuation blister powder for inhalation 1 puff INHALATION DAILY 08/29/20 [History Last Taken 04/19/21] amlodipine 5 mg PO DAILY 03/17/21 [History Last Taken 04/19/21] furosemide 20 mg PO DAILY 03/17/21 [History Last Taken 04/19/21] losartan 50 mg PO DAILY 03/17/21 [History Last Taken 04/19/21] sertraline 50 mg PO DAILY 03/17/21 [History Last Taken 04/19/21] calcium carbonate-vitamin D3 [Oyster Shell Calcium-Vit D3] 1 tab PO DAILY 04/19/21 [History Last Taken 04/19/21] ibandronate 150 mg PO QMONTH 04/19/21 [History Last Taken Unknown] tramadol 50 mg PO BID 05/12/21 [History Last Taken Unknown] atorvastatin 80 mg PO QHS 10/20/21 [History Last Taken 10/19/21] azithromycin 250 mg PO DAILY 10/20/21 [History Last Taken 10/20/21] clopidogrel 75 mg PO DAILY 10/20/21 [History Last Taken 10/20/21] fluticasone furoate-vilanterol [Breo Ellipta] 1 inh INHALATION DAILY 10/20/21 [History Last Taken 10/20/21] potassium chloride 10 meq PO DAILY 10/20/21 [History Last Taken 10/19/21] Allergy/AdvReac Type Severity Reaction Status Date / Time bupropion HCl Allergy Hives Verified 10/20/21 16:39 [From Wellbutrin] gabapentin [From Neurontin] Allergy Hives Verified 10/20/21 16:39 moxifloxacin HCl Allergy Hives Verified 10/20/21 16:39 [From Avelox] Family History Other COPD (chronic obstructive pulmonary disease) Cancer Diabetes Heart disease Surgical History H/O hand surgery H/O knee surgery H/O: hysterectomy History of back surgery Status post lobectomy of lung Social History Smoking Status: Former smoker substance use type: does not use ROS ROS ED ROS Narrative Shortness of breath. Review of Systems ROS Unobtainable: Denies due to encephalopathy Constitutional Constitutional ED: Denies chills or fever(s) Eyes Eyes: Denies change in vision ENT ENT ED: Denies ear pain Cardiovascular Cardiovascular: Denies chest pain or palpitations Respiratory/Chest Respiratory/Chest: Reports dyspnea; Denies cough Gastrointestinal Gastrointestinal: Denies abdominal pain Genitourinary Genitourinary ED: Denies dysuria or hematuria Musculoskeletal Musculoskeletal: Denies myalgias Integumentary Denies rash Neurologic Neurologic: Denies headache(s) Psychiatric Psychiatric: Denies depression Endocrine Endocrinology: Denies polyuria Hematologic/Lymphatic Hematologic/Lymphatic: Denies easy bruising Allergic/Immunologic Allergic/Immunologic ED: Denies urticaria EXAM Physical Exam Narrative Exam Narrative: 71 of female no acute distress. Pulse ox 100% on 2 L no hypoxia. H EENT exam unremarkable. Moist with memories. Neck nontender no JVD. Lungs clear to auscultation bilaterally. Heart regular rhythm no murmur rate about 70s. Abdomen soft nontender normal bowel sounds no peritoneal signs. Patient is moving all 4 extremities. Calves are nontender without edema or cords. Neurologically she is awake alert with no focal motor deficits. Const Vital Signs: 10/20/21 16:37 10/20/21 19:07 10/20/21 19:09 Temperature 97.6 F L Temperature Source Temporal Pulse Rate 73 Respiratory Rate 18 20 H Respiratory Effort Short of Breath Respiratory Depth Normal Respiratory Pattern Normal Blood Pressure 128/63 H Blood Pressure Mean 84 Pulse Ox 100 100 Oxygen Delivery Method Room Air Nasal Cannula Room Air Oxygen Flow Rate (L/min) 2 10/20/21 19:10 Temperature 97.1 F L Temperature Source Temporal Pulse Rate 75 Respiratory Rate 19 H Respiratory Effort Respiratory Depth Respiratory Pattern Blood Pressure 102/85 H Blood Pressure Mean 90 Pulse Ox 100 Oxygen Delivery Method Room Air Oxygen Flow Rate (L/min) Positive well nourished, well developed and obese; Negative for cachectic, contractures or unkempt General Appearance ED: well developed and NAD; Negative for unkempt, cachectic, contractures or pallor Nutritional Appearance: obese; Negative for cachectic HEENT Reports moist mucous membranes atraumatic; Negative for trauma Eyes PERRL and EOMs intact bilaterally Neck no lymphadenopathy, supple, no meningeal signs and no JVD General: Negative for tenderness Resp normal respiratory effort and clear to auscultation bilaterally Auscultation: Negative for rales, rhonchi or wheezes Cardio regular rate, regular rhythm, S1 normal heart sound, S2 normal heart sound and no murmurs GI non-tender, non-distended and no masses Auscultation: normoactive bowel sounds Palpation: soft; Negative for tender, guarding or rebound tenderness present Back/Spine no CVA tenderness and normal to inspection General Back: Negative for CVA tenderness Extremity normal to inspection General Extremety ED: Negative for edema or tenderness General Extremity: Negative for edema Neuro oriented x3 Sensorium / Orientation: alert, oriented to person and oriented to place; Negative for oriented to time, orientation impaired or confused Motor Exam: strength 5/5 throughout Psych mental status grossly normal Appearance: Negative for unkempt Thought Process: normal thought process Skin no wounds General Skin Exam: Negative for jaundice or pallor Lesions: no lesions Rashes: no rashes MDM MDM MDM Narrative Medical decision making narrative: 68-year-old female with dyspnea. States she is unable to care for herself. Is hoping to be admitted and undergo cardiac rehabilitation or possibly placed in a rehab unit. Spoke to the hospitalist she will be an observation admission for further evaluation. Lab Data Attestation: I reviewed the patient's lab results. Lab results narrative: CBC shows a white count 8. H&H of 13 and 41. Chemistries unremarkable gap of 5. Normal BUN and creatinine. Glucose 158. Labs: Laboratory Results - last 24 hr 10/20/21 10/20/21 19:00 19:00 WBC 8.7 RBC 4.67 Hgb 13.0 Hct 41.7 MCV 89.3 MCH 27.8 MCHC 31.2 L RDW Std Deviation 50.6 H RDW Coeff of Doretha 15.6 H Plt Count 322 MPV 9.9 Immature Gran % (Auto) 0.300 Neut % (Auto) 61.7 Lymph % (Auto) 29.9 Elliott % (Auto) 5.9 Eos % (Auto) 1.7 Baso % (Auto) 0.5 Absolute Neuts (auto) 5.3 Absolute Lymphs (auto) 2.59 Nucleated RBC % 0 Sodium 141 Potassium 3.9 Chloride 108 H Carbon Dioxide 28.0 Anion Gap 5 BUN 18 Creatinine 0.85 Estim Creat Clear Calc 48.76 Est GFR (MDRD) Af Amer 84 Est GFR (MDRD) Non-Af 70 BUN/Creatinine Ratio 21.2 H Glucose 158 H Calcium 9.2 Radiography Chest X-Ray - ED: 1 View, Read by ED Physician, Read by Radiologist, Heart, Lungs, Mediastinum, Bony Structures, No Acute Disease and Chronic Changes Diagnostic Testing: Clinical Impression(s) from Imaging Studies Chest X-Ray 10/20/21 16:52 IMPRESSION: No acute abnormality or interval change when compared to the prior study. Electronically Signed: Elfego Omer DO at 17:39 EST Reading Location ID and State: [address] [place] [address] Tel [phone], Service support , Rhythm Strip Rhythm Strip: Sinus Rhythm Rate: 57 Ectopy: None EKG Initial EKG: Attestation: I personally reviewed and interpreted this EKG as follows: Interpretation: Sinus Rhythm, No Acute Injury Pattern and Sinus Bradycardia Comments: Sinus bradycardia rate of 57. First-degree AV block with a KS interval of 214. No acute signs of ME nor ischemia. Discharge Plan Triage Chief Complaint: Shortness of Breath ED Provider: Moises Stiles Dx/Rx/DC Orders Clinical Impression: Acute dyspnea, History of coronary artery disease, History of COPD, Hx of pulmonary embolus Prescriptions: No Action umeclidinium 62.5 mcg/actuation blister with device 1 puff INHALATION DAILY RF: 0 trazodone 100 MG tablet 100 mg PO QHS RF: 0 pramipexole 1.5 MG tablet 1.5 mg PO QHS RF: 0 ropinirole 2 MG tablet 2 mg PO QHS RF: 0 losartan 50 mg tablet 50 mg PO DAILY RF: 0 furosemide 20 mg tablet 20 mg PO DAILY RF: 0 sertraline 50 mg tablet 50 mg PO DAILY RF: 0 amlodipine 5 MG tablet 5 mg PO DAILY RF: 0 ibandronate 150 mg tablet 150 mg PO QMONTH RF: 0 calcium carbonate-vitamin D3 [Oyster Shell Calcium-Vit D3] 250-125 mg-unit tablet 1 tab PO DAILY RF: 0 tramadol 50 mg Tablet 50 mg PO BID RF: 0 atorvastatin 80 mg tablet 80 mg PO QHS RF: 0 azithromycin 250 mg tablet 250 mg PO DAILY RF: 0 potassium chloride 10 mEq tablet extended release 10 meq PO DAILY RF: 0 clopidogrel 75 mg tablet 75 mg PO DAILY RF: 0 Breo Ellipta 100-25 mcg/dose blister with device 1 inh INHALATION DAILY RF: 0 Primary Care Provider: Heladio Edwards Referrals: Heladio Edwards MD [Primary Care Provider] - Disposition Disposition: Acute Care [facility]
[2021-10-20 20:20] LABS: Troponin-I HS 7 pg/mL (3.0-54.0)
--- NOTE | 2021-10-20 22:23 | CPS ---
PATIENT INFORMED RT THAT SHE WEARS BIPAP AT HOME AT IPAP 16 EPAP 10 WITH 2.5 LPM BLED IN.
[2021-10-20] MEDS: traZODone 100 MG Tablet PO (23:27)
[2021-10-20] MEDS: MELATONIN 3 MG TABLET PO (23:27)
[2021-10-20] MEDS: Pramipexole Di-HCl 0.5 MG Tablet 1.5 MG PO (23:27)
[2021-10-20] MEDS: Atorvastatin Calcium 80 MG Tablet PO (23:27)
--- NOTE | 2021-10-20 23:43 | CPS ---
PATIENT SWITCHED FROM MEDIUM SIZE MASK TO LARGE FULL MASK PER PATIENT REQUEST. NURSING PLACED DUODERM OVER NOSE FOR PATIENT COMFORT. PATIENT TOLERATING LARGE MASK WELL.
[2021-10-21] VITALS (14 sets, daily range): BP systolic 98–136; BP diastolic 45–93; PULSE 64–93; RESP 17–24; TEMP 36.6; O2SAT 92–97
[2021-10-21] MEDS: Ipratropium/Albuterol Sulfate 3 ML AMPUL.NEB INHALATION ×4 (00:59→19:03)
--- NOTE | 2021-10-21 01:03 | CPS ---
PATIENT OFF BIPAP AT TIME OF VISIT AND ON NASAL CANNULLA. PATIENT STATED THAT SHE COULDNT TOLERATE. PATIENT STATED THAT SHE WILL HAVE FAMILY BRING IN HOME UNIT IF SHE STAY AGAIN TONIGHT.
[2021-10-21 05:33] LABS: Absolute Lymphocyte Count 2.29 X10^3/uL (0.83-4.51); Absolute Neutrophil Count 4.1 X10^3/uL (2.0-7.7); Basophil# 0.03 X10^3/uL; Basophil% 0.4 % (0-1); Eosinophil# 0.13 X10^3/uL; Eosinophils% 1.8 % (0-5); Hematocrit 34.9 % (37-47); Hemoglobin 11.1 g/dL (12.0-15.0); Lymphocyte # 2.29 X10^3/ul (0.83-4.51); Mean Corp Hgb Conc 31.8 g/dL (32-36); Mean Corpuscular Hgb 28.2 pg (27.0-32.0); Mean Corpuscular Volume 88.6 fL (81-99); Mean Platelet Vol. 9.7 fl (6.2-12.0); Monocyte# 0.61 X10^3/uL; Monocyte% 8.5 % (0-10); NRBC Flagged by Analyzer 0 % (0-5); Neutrophil # 4.09 X10^3/uL (2.7-7.7); Neutrophil % 57.2 % (47-70); Platelet Count 256 K/mm3 (150-450); RBC Distribution Width CV 15.3 % (11.6-14.6); RBC Distribution Width SD 50.2 fl (35.1-43.9); Red Blood Count 3.94 M/mm3 (4.2-5.4); White Blood Count 7.2 K/mm3 (4.4-11.0)
[2021-10-21 06:30] LABS: Anion Gap 5 (5-15); BUN 22 mg/dL (7-18); BUN/Creat Ratio 34.6 RATIO (10-20); Chloride 111 mmol/L (98-107); Creatinine, Serum 0.64 mg/dL (0.55-1.02); EST Glomerular Filtration Rate 98 mL/min (>60); Est Glom Filt Rate - Afr Amer 118 mL/min (>60); Estimated Creatinine Clearance 41.45 ml/min; Glucose 127 mg/dL (74-106); Sodium Level 137 mmol/L (136-145)
--- NOTE | 2021-10-21 07:14 | PCM.PN.HOSP ---
Subjective Subjective Patient admitted with shortness of breath that got worse after cardiac stent. She had mild shortness of breath even prior to that with history of COPD/emphysema and chronic smoking. She is a former smoker. She also had lobectomy of lung. Objective Data Objective Data Vital Signs: Vital Signs Temp Pulse Resp BP Pulse Ox 97.9 F 73 20 H 106/51 L 97 10/21/21 03:40 10/21/21 06:35 10/21/21 03:40 10/21/21 03:40 10/21/21 03:40 Oxygen Flow Rate (L/min) 2 Oxygen Delivery Method Nasal Cannula Weight: 191 lb 9.307 oz Body Mass Index (BMI) 33.9 Intake & Output: Intake and Output for Last 24 Hours 10/19/21 10/20/21 10/21/21 23:59 23:59 23:59 Intake Total 480 / 480 Balance 480 / 480 Lab / Micro Data Result Diagrams: 10/21/21 05:07 10/21/21 05:07 Labs: Laboratory Results - last 24 hr 10/20/21 19:00: WBC 8.7, RBC 4.67, Hgb 13.0, Hct 41.7, MCV 89.3, MCH 27.8, MCHC 31.2 L, RDW Std Deviation 50.6 H, RDW Coeff of Doretha 15.6 H, Plt Count 322, MPV 9.9, Immature Gran % (Auto) 0.300, Neut % (Auto) 61.7, Lymph % (Auto) 29.9, [place] % (Auto) 5.9, Eos % (Auto) 1.7, Baso % (Auto) 0.5, Absolute Neuts (auto) 5.3, Absolute Lymphs (auto) 2.59, Nucleated RBC % 0 10/20/21 19:00: Sodium 141, Potassium 3.9, Chloride 108 H, Carbon Dioxide 28.0, Anion Gap 5, BUN 18, Creatinine 0.85, Estim Creat Clear Calc 48.76, Est GFR (MDRD) Af Amer 84, Est GFR (MDRD) Non-Af 70, BUN/Creatinine Ratio 21.2 H, Glucose 158 H, Calcium 9.2 10/20/21 19:00: Troponin I High Sens 7 10/21/21 05:07: WBC 7.2, RBC 3.94 L, Hgb 11.1 L, Hct 34.9 L, MCV 88.6, MCH 28.2, MCHC 31.8 L, RDW Std Deviation 50.2 H, RDW Coeff of Doretha 15.3 H, Plt Count 256, MPV 9.7, Immature Gran % (Auto) 0.100, Neut % (Auto) 57.2, Lymph % (Auto) 32.0, [place] % (Auto) 8.5, Eos % (Auto) 1.8, Baso % (Auto) 0.4, Absolute Neuts (auto) 4.1, Absolute Lymphs (auto) 2.29, Nucleated RBC % 0 10/21/21 05:07: Sodium 137, Potassium 4.0, Chloride 111 H, Carbon Dioxide 21.0, Anion Gap 5, BUN 22 H, Creatinine 0.64, Estim Creat Clear Calc 41.45, Est GFR (MDRD) Af Amer 118, Est GFR (MDRD) Non-Af 98, BUN/Creatinine Ratio 34.6 H, Glucose 127 H, Calcium 8.0 L Micro: Microbiology 10/20/21 18:33 Nasal Secretion SARS-CoV-2 Antigen (Rapid) - Final Radiography Diagnostic Testing: Radiology Impression Chest X-Ray 10/20/21 16:52 IMPRESSION: No acute abnormality or interval change when compared to the prior study. Electronically Signed: Elfego Omer DO at 17:39 EST Reading Location ID and State: [address] [place] [address] Tel [phone], Service support , Rhythm Strip Rhythm Strip: Sinus Rhythm Rate: 57 Ectopy: None Physical Exam Narrative General: Alert, Oriented x3, Cooperative HEENT: Atraumatic, PERRLA, EOMI, Normocephalic Oral: No Gingival or Mucosal Lesions/ Ulcerations Neck: Supple, No JVD, Negative Carotid Bruits Lungs: Air entry diminished in bilateral lung bases. No crepitation/rhonchi/wheezing. No tachypnea. Cardiovascular: Regular rate, Regular Rhythm, Normal S1, Normal S2, No murmurs Abdomen: Bowel Sounds Present, Soft, Non Tender, Non-Distended : No renal angle tenderness. No suprapubic tenderness. Extremities: No edema, Capillary Refill Less than 3 Seconds Skin: No rashes, No breakdown Musculoskeletal: No Tenderness to Palpation of Joints or Extremities. Muscle strength 4+/5 at major joints of lower extremities. Neurological: Hyperesthesia of bilateral lower legs, neuropathy. Cranial nerves II-XII grossly intact, DTR 2+/4 Psych/Mental Status: Normal Affect, Appropriate. Assessment & Plan Assessment/Plan (1) Debility: PLAN: This 71-year-old patient admitted with worsening of chronic shortness of breath after cardiac stents July 2021 in [facility]. Shortness of breath did not improve after cardiac rehab. 1. Debility secondary to ischemic cardiomyopathy, coronary artery disease status post cardiac stent: Soon after cardiac cath on the floor patient had drop in blood pressure with sudden shortness of breath in the emergency was called but not CODE BLUE. Her blood pressure recovered. Is not clear whether she was on Brilinta in the beginning post cath which was changed to Plavix subsequently. Chest x-ray independently reviewed shows cardiomegaly but no acute cardiopulmonary process. PT and OT, case assembler/social service assistant evaluation and possible SNF placement. On 04/19/2021, echocardiogram showed estimated ejection fraction of 60% with stage I diastolic dysfunction. Mild tricuspid valve insufficiency. Pulmonary artery systolic pressure was 36 mmHg. Her cardiac medications continued Mild acute drop in H&H probably due to hemodilution patient does not have acute external blood loss. Hemoglobin 11.1 g%. Baseline rales 12 to 13 g%. Hypertension blood pressure in normal range. Home medications continued. Monitor BP CKD stage G3 a: Creatinine monitoring does not show acute change. Chronic cigarette smoker with history of COPD/emphysema: She states he had PFT done about 3 to 4 years ago. She does not remember details. She is azithromycin from home and continued. At home she is on umeclidinium inhaler. She reports quitting about a week and a half ago. Counseled to maintain not to smoking Patient also history of restless leg syndrome, neuropathy pain and anxiety and depression:she is on pramipexole, ropinirole and sertraline at home DVT prophylaxis: Subcutaneous lovenox ordered. Charges/Coding Visit Charges Inpatient E&M: 44393 Subs Hosp L2
[2021-10-21] MEDS: Budesonide Respules 0.5 MG/2 ML AMPUL.NEB. INHALATION ×2 (07:40→19:04)
[2021-10-21] MEDS: Clopidogrel Bisulfate 75 MG Tablet PO ×2 (08:16)
[2021-10-21] MEDS: Potassium Chloride Oral Tablet 10 MEQ PO (08:16)
[2021-10-21] MEDS: Azithromycin 250 MG Tablet PO (08:16)
[2021-10-21] MEDS: Sertraline 50 MG Tablet PO (08:16)
[2021-10-21] MEDS: Calcium Carb/Vitamin D 1 TABLET Tablet PO (08:16)
[2021-10-21] MEDS: Enoxaparin 40 MG/0.4 ML Syringe SC (08:17)
[2021-10-21] MEDS: amLODIPine 5 MG Tablet PO (10:42)
[2021-10-21] MEDS: Losartan Potassium 50 MG Tablet PO (10:42)
[2021-10-21] MEDS: Furosemide 20 MG Tablet PO (10:42)
[2021-10-21 11:50] LABS: Bedside Glucose 150 mg/dL (70-110)
--- NOTE | 2021-10-21 14:21 | CASEMGMT ---
Social Work Consult: Retirement Referral source: RN ELSIE Met with patient in room. Introduced self and social worker aide role. Patient agreeable to speak with this social worker aide. Patient reports to live at home alone and to typically be able to care for self. Patient reports to drive self in the community. Patient states that lately patient has not been able to care for self in the home, I get too short of breath. Patient states concern on returning to home. This social worker aide noticing that patient is short of breath laying in bed and talking with this social worker aide. Patient reports to have oxygen that patient wears at night. This social worker aide inquired about advanced directives. Patient reports to not have advanced directives competed but to be interested in getting these done. this social worker aide communicated to patient that social work can follow up with patient on completing advanced directives during patient stay, patient agreeable to this. Patient states to have support from family in the community along with neighbors but not anyone that is able to come in the home and help patient all the time. Patient reports that patient is to be following up with cardiac rehab 3 times a week for 3 months but has not been able to go to cardiac rehab due to being short of breath, I can't make it to my car. This social worker aide broached conversation of nursing home facility for patient. Patient is agreeable to [facility] placement and request for first option to be TCU. Patient reports to not have a second option. This social worker aide encouraged patient to consider a second option in the event that TCU does not have a bed for patient. This social worker aide provided patient with list of in-network facilities that are local to patient geographical region. Patient plans to look over list. Active support and listening provided. Telephone call to TCU, [facility] referral line. Voicemail left to put patient on list. Social work to continue to follow. Bigg TALBOT, MONIQUE
--- NOTE | 2021-10-21 15:38 | CASEMGMT ---
CONNOR ZIMMERMAN NOT: Intro role of CM to patient and [place] form explained re: Observation status for treatment of adult failure to thrive. Explained hospitalization will be paid per her insurance policy for Outpatient billing and condition will continue to be evaluated for Inpt necessity. Also let pt know that [facility] sends paper in the billing packet with their phone number if questions arise. Pt verbalizes understanding and does not have any questions. Form signed, copy made and placed in chart, and original given to pt. Mary Ann RODRIGUEZ RN, CM
[2021-10-21] MEDS: Acetaminophen 325 MG Tablet 650 MG PO (16:32)
[2021-10-21 17:20] LABS: Bedside Glucose 126 mg/dL (70-110)
--- NOTE | 2021-10-21 17:32 | NURSING ---
Received medical records from [facility] for pt previous heart cath
[2021-10-21] MEDS: Atorvastatin Calcium 80 MG Tablet PO (20:39)
[2021-10-21] MEDS: traZODone 100 MG Tablet PO (20:39)
[2021-10-21] MEDS: Pramipexole Di-HCl 0.5 MG Tablet 1.5 MG PO (20:39)
[2021-10-21] MEDS: Sodium Chloride 0.65% 1 SPRAY SPRAY.BTL 2 SPRAY NASAL (20:39)
[2021-10-21 22:05] LABS: Bedside Glucose 120 mg/dL (70-110)
[2021-10-22] VITALS (11 sets, daily range): BP systolic 116–128; BP diastolic 47–62; PULSE 63–86; RESP 18–24; TEMP 36.4–36.6; O2SAT 2–100
[2021-10-22] MEDS: Albuterol 2.5 MG/3 ML VIAL.NEB. INHALATION (03:34)
[2021-10-22 07:00] LABS: Bedside Glucose 136 mg/dL (70-110)
[2021-10-22] MEDS: Ipratropium/Albuterol Sulfate 3 ML AMPUL.NEB INHALATION ×3 (07:19→19:47)
[2021-10-22] MEDS: Budesonide Respules 0.5 MG/2 ML AMPUL.NEB. INHALATION ×2 (07:19→19:47)
--- NOTE | 2021-10-22 07:30 | PCM.PN.HOSP ---
Subjective Subjective Seen and examined. Follow-up for ischemic cardiomyopathy, CKD and failure to thrive Objective Data Objective Data Vital Signs: Vital Signs Temp Pulse Resp BP Pulse Ox 97.7 F L 71 24 H 128/62 H 96 10/22/21 03:22 10/22/21 03:36 10/22/21 03:36 10/22/21 03:22 10/22/21 03:22 Oxygen Flow Rate (L/min) 2.5 Oxygen Delivery Method Nasal Cannula Weight: 191 lb 9.307 oz Body Mass Index (BMI) 33.9 Intake & Output: Intake and Output for Last 24 Hours 10/20/21 10/21/21 10/22/21 23:59 23:59 23:59 Intake Total 960 / 960 Output Total 400 / 400 Balance 560 / 560 Lab / Micro Data Result Diagrams: 10/21/21 05:07 10/21/21 05:07 Labs: Laboratory Results - last 24 hr 10/21/21 11:40: POC Glucose 150 H 10/21/21 16:40: POC Glucose 126 H 10/21/21 22:01: POC Glucose 120 H 10/22/21 06:41: POC Glucose 136 H Micro: Microbiology 10/20/21 18:33 Nasal Secretion SARS-CoV-2 Antigen (Rapid) - Final Rhythm Strip Rhythm Strip: Sinus Rhythm Rate: 57 Ectopy: None Physical Exam Narrative Overall patient feels improvement in appetite, shortness of breath. Had physical therapy in the morning. Patient quit smoking about 2 weeks ago General: Alert, Oriented x3, Cooperative HEENT: Atraumatic, PERRLA, EOMI, Normocephalic Oral: No Gingival or Mucosal Lesions/ Ulcerations Neck: Supple, No JVD, Negative Carotid Bruits Lungs: Air entry diminished in bilateral lung bases. No crepitation/rhonchi/wheezing. No tachypnea. Cardiovascular: Regular rate, Regular Rhythm, Normal S1, Normal S2, No murmurs Abdomen: Bowel Sounds Present, Soft, Non Tender, Non-Distended : No renal angle tenderness. No suprapubic tenderness. Extremities: No edema, Capillary Refill Less than 3 Seconds Skin: No rashes, No breakdown Musculoskeletal: No Tenderness to Palpation of Joints or Extremities. Muscle strength 4+/5 at major joints of lower extremities. Neurological: Hyperesthesia of bilateral lower legs, neuropathy. Cranial nerves II-XII grossly intact, DTR 2+/4 Psych/Mental Status: Flat affect. Assessment & Plan Assessment/Plan (1) Debility: PLAN: This 71-year-old patient admitted with worsening of chronic shortness of breath after cardiac stents July 2021 in [facility]. Shortness of breath did not improve after cardiac rehab. 1. Debility secondary to ischemic cardiomyopathy, coronary artery disease status post cardiac stent: Soon after cardiac cath on the floor patient had drop in blood pressure with sudden shortness of breath in the emergency was called but not CODE BLUE. Her blood pressure recovered. Is not clear whether she was on Brilinta in the beginning post cath which was changed to Plavix subsequently. Chest x-ray independently reviewed shows cardiomegaly but no acute cardiopulmonary process. PT and OT, shoe caser/social media strategist evaluation and possible SNF placement. On 04/19/2021, echocardiogram showed estimated ejection fraction of 60% with stage I diastolic dysfunction. Mild tricuspid valve insufficiency. Pulmonary artery systolic pressure was 36 mmHg. Her cardiac medications continued 10/22: global marketing operations manager consult for possible SNF placement. Mild acute drop in H&H probably due to hemodilution patient does not have acute external blood loss. Hemoglobin 11.1 g%. Baseline rales 12 to 13 g%. Hypertension blood pressure in normal range. Home medications continued. Monitor BP CKD stage G3 a: Creatinine monitoring does not show acute change. 10/22: Mild BUN elevation. Creatinine normal. Chronic cigarette smoker with history of COPD/emphysema: She states he had PFT done about 3 to 4 years ago. She does not remember details. She is azithromycin from home and continued. At home she is on umeclidinium inhaler. She reports quitting about 2 weeks ago. Counseled to maintain not to smoking Hyperglycemia with mention of type 2 diabetes mellitus : Patient not on oral hypoglycemic agent or insulin at home. A1c ordered for tomorrow a.m. Glucose in 120s. Probably diet-controlled. Patient also history of restless leg syndrome, neuropathy pain and anxiety and depression:she is on pramipexole, ropinirole and sertraline at home DVT prophylaxis: Subcutaneous lovenox ordered. Charges/Coding Visit Charges Inpatient E&M: 80818 Subs Hosp L2
[2021-10-22] MEDS: Calcium Carb/Vitamin D 1 TABLET Tablet PO (10:58)
[2021-10-22] MEDS: Sertraline 50 MG Tablet PO (10:58)
[2021-10-22] MEDS: Azithromycin 250 MG Tablet PO (10:58)
[2021-10-22] MEDS: Enoxaparin 40 MG/0.4 ML Syringe SC (10:59)
[2021-10-22] MEDS: amLODIPine 5 MG Tablet PO (10:59)
[2021-10-22] MEDS: Potassium Chloride Oral Tablet 10 MEQ PO (10:59)
[2021-10-22] MEDS: Losartan Potassium 50 MG Tablet PO (10:59)
[2021-10-22] MEDS: Furosemide 20 MG Tablet PO (10:59)
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
[2021-10-22 13:21] LABS: Bedside Glucose 165 mg/dL (70-110)
[2021-10-22 17:06] LABS: Bedside Glucose 150 mg/dL (70-110)
[2021-10-22] MEDS: Pramipexole Di-HCl 0.5 MG Tablet 1.5 MG PO (22:02)
[2021-10-22] MEDS: traZODone 100 MG Tablet PO (22:03)
[2021-10-22] MEDS: Atorvastatin Calcium 80 MG Tablet PO (22:04)
[2021-10-22 22:16] LABS: Bedside Glucose 145 mg/dL (70-110)
[2021-10-23] VITALS (9 sets, daily range): BP systolic 120–146; BP diastolic 50–60; PULSE 62–73; RESP 0–20; TEMP 36.4–36.6; O2SAT 90–98
[2021-10-23 04:11] LABS: Bedside Glucose 116 mg/dL (70-110)
[2021-10-23] MEDS: Budesonide Respules 0.5 MG/2 ML AMPUL.NEB. INHALATION ×2 (07:11→19:06)
[2021-10-23] MEDS: Ipratropium/Albuterol Sulfate 3 ML AMPUL.NEB INHALATION ×3 (07:11→19:05)
[2021-10-23 07:33] LABS: Hemoglobin A1c 6.3 % (3.8-5.6)
--- NOTE | 2021-10-23 07:34 | PN.HOSP_ITS ---
Subjective Subjective Follow-up on debility/ischemic cardiomyopathy: Patient was seen and examined. She is on 2L oxygen. She denies any chest or progressive shortness of breath. She stated that she generally feels weak. She is willing to go for subacute rehab before doing cardiac rehab. Objective Data Objective Data Vital Signs: Vital Signs Temp Pulse Resp BP Pulse Ox 97.8 F 62 18 146/60 H 97 10/23/21 03:58 10/23/21 03:58 10/23/21 03:58 10/23/21 03:58 10/23/21 03:58 Oxygen Flow Rate (L/min) 2.5 Oxygen Delivery Method Bi-pap Weight: 86.9 kg Body Mass Index (BMI) 33.9 Intake & Output: Intake and Output for Last 24 Hours 10/21/21 10/22/21 10/23/21 23:59 23:59 23:59 Intake Total 960 / 960 500 / 500 Output Total 400 / 400 Balance 560 / 560 500 / 500 Lab / Micro Data Result Diagrams: 10/21/21 05:07 10/21/21 05:07 Labs: Laboratory Results - last 24 hr 10/22/21 13:16: POC Glucose 165 H 10/22/21 16:56: POC Glucose 150 H 10/22/21 22:00: POC Glucose 145 H 10/23/21 04:03: POC Glucose 116 H 10/23/21 04:30: Hemoglobin A1c 6.3 H Micro: Microbiology 10/20/21 18:33 Nasal Secretion SARS-CoV-2 Antigen (Rapid) - Final Rhythm Strip Rhythm Strip: Sinus Rhythm Rate: 57 Ectopy: None Physical Exam Narrative Physical exam: General: Alert, Oriented x3, Cooperative, No apparent distress, Well developed HEENT: Atraumatic Oral: Moist Mucosa Neck: Supple Lungs: Clear to auscultation Cardiovascular: HS I+II, regular, no murmurs Abdomen: Bowel Sounds Present, Soft, Non Tender Extremities: Bilateral leg edema +1 Assessment & Plan Assessment/Plan (1) Debility: PLAN: 1. Debility, probably multifactorial, patient has recent ischemic cardiomyopathy, coronary artery disease status post cardiac stent PT/OT/social work consulted Discharge planning to half-way facility ongoing 2. CAD status post recent stent/ischemic cardiomyopathy, EF 60%, stage I diasto lic dysfunction Continue on aspirin, Plavix, statin, Losartan and Lasix 3. Hypoxia, unclear etiology, likely secondary to atelectasis Chest x-ray on 09/27 6 shows no acute cardiopulmonary process Patient is on Lasix, will give a dose of Lasix IV 20x1 4. Hypertension, controlled, continue amlodipine, losartan 5. Rest of her chronic medical conditions including COPD, CKD stage IIIa, chronic smoker, restless leg, anxiety/depression remain stable Continue on home meds 6. DVT prophylaxis- Lovenox SC Charges/Coding Visit Charges Inpatient E&M: 45138 Subs Hosp L2
[2021-10-23] MEDS: Furosemide 20 MG Tablet PO ×2 (10:26→14:31)
[2021-10-23] MEDS: Losartan Potassium 50 MG Tablet PO (10:26)
[2021-10-23] MEDS: Enoxaparin 40 MG/0.4 ML Syringe SC (10:26)
[2021-10-23] MEDS: Potassium Chloride Oral Tablet 10 MEQ PO (10:26)
[2021-10-23] MEDS: amLODIPine 5 MG Tablet PO (10:27)
[2021-10-23] MEDS: Calcium Carb/Vitamin D 1 TABLET Tablet PO (10:27)
[2021-10-23] MEDS: Clopidogrel Bisulfate 75 MG Tablet PO (10:27)
[2021-10-23] MEDS: Sertraline 50 MG Tablet PO (10:27)
[2021-10-23] MEDS: Azithromycin 250 MG Tablet PO (10:27)
--- NOTE | 2021-10-23 13:17 | CASEMGMT ---
Addendum entered by Cathie Reyes 10/23/21 13:27: SW asked pt about her Bipap. Pt states that she has her own Bipap machine at [facility] that she wears at night and will be able to take own Bipap machine to SNF. Original Note: Social Work Note SW reviewed chart. Pt would like [facility]. SW received call from Maureen with TCU, TCU is not in network with pt's insurance. SW in to speak with pt and pt's daughter Glenys present in pt's room. SW introduced self and role at [facility]. SW informed pt and Glenys that TCU is not able to accept pt as they do not take pt's insurance. Pt and Glenys states they would like pt to go to a private room at [facility] and states the next choice is [facility]. If [facility] has no private rooms available, next choice would be [facility] or [facility]. SW to make referrals to SNF and inquire about private room status at SNF. Plan: SNF pending acceptance and pre-cert Cathie Reyes DATA ANALYSIS ASSISTANT, HEAT WELDER PLASTICS
--- NOTE | 2021-10-23 13:39 | CASEMGMT ---
Addendum entered by Ayanna Linn 10/23/21 16:12: SW completed PAS/RR, results attained, no further review is needed at this time. MONIQUE Granado Addendum entered by Ayanna Linn 10/23/21 15:55: [facility] can take pt and will start precert. MONIQUE Granado Addendum entered by Ayanna Linn 10/23/21 15:50: Social Work SW called Jillian at [facility], message left inquiring about referral. MONIQUE Granado Original Note: Social Work SW called [facility], spoke w/Jillian. She states they do have private rooms available. SW faxed, will follow up. MONIQUE Granado
--- NOTE | 2021-10-23 16:35 | CASEMGMT ---
Social Work Note SW updated pt that [facility] can accept pt pending pre-cert. Pt states understanding. Plan: [facility] pending pre-cert Cathie Reyes LYMPHEDEMA THERAPIST, PATIENT CARE
[2021-10-23] MEDS: Atorvastatin Calcium 80 MG Tablet PO (21:47)
[2021-10-23] MEDS: traZODone 100 MG Tablet PO (21:47)
[2021-10-23] MEDS: Pramipexole Di-HCl 0.5 MG Tablet 1.5 MG PO (21:47)
[2021-10-24] VITALS (11 sets, daily range): BP systolic 99–146; BP diastolic 44–70; PULSE 60–88; RESP 16–22; TEMP 35.8–36.8; O2SAT 91–100
[2021-10-24 05:51] LABS: Absolute Neutrophil Count 3.7 X10^3/uL (2.0-7.7); Basophil# 0.03 X10^3/uL; Basophil% 0.4 % (0-1); Eosinophil# 0.16 X10^3/uL; Eosinophils% 2.4 % (0-5); Hemoglobin 10.8 g/dL (12.0-15.0); Lymphocyte % 32.9 % (19-41); Mean Corp Hgb Conc 31.8 g/dL (32-36); Mean Corpuscular Hgb 28.1 pg (27.0-32.0); Mean Corpuscular Volume 88.5 fL (81-99); Monocyte# 0.59 X10^3/uL; Monocyte% 8.8 % (0-10); NRBC Flagged by Analyzer 0 % (0-5); Neutrophil # 3.69 X10^3/uL (2.7-7.7); Neutrophil % 55.4 % (47-70); Platelet Count 240 K/mm3 (150-450); RBC Distribution Width CV 15.4 % (11.6-14.6); RBC Distribution Width SD 49.5 fl (35.1-43.9); Red Blood Count 3.84 M/mm3 (4.2-5.4); White Blood Count 6.7 K/mm3 (4.4-11.0)
[2021-10-24 06:32] LABS: ALB/GLOB Ratio 0.8 RATIO (0.9-2.4); AST(SGOT) 12 U/L (15-37); Alanine Aminotransfer ALT/SGPT 18 U/L (13-56); Albumin, Serum 2.8 g/dL (3.2-5.0); Alkaline Phosphatase 105 U/L (45-117); Anion Gap 6 (5-15); BUN 22 mg/dL (7-18); BUN/Creat Ratio 32.7 RATIO (10-20); Calcium,Total 8.5 mg/dL (8.5-10.1); Chloride 105 mmol/L (98-107); Creatinine, Serum 0.67 mg/dL (0.55-1.02); EST Glomerular Filtration Rate 91 mL/min (>60); Est Glom Filt Rate - Afr Amer 111 mL/min (>60); Estimated Creatinine Clearance 41.45 ml/min; Globulin 3.4 g/dL (2.2-4.2); Glucose 144 mg/dL (74-106); Potassium 3.9 mmol/L (3.5-5.1); Protein, Total 6.2 g/dL (6.4-8.2); Sodium Level 139 mmol/L (136-145)
[2021-10-24] MEDS: Aspirin 81 MG TAB.CHEW PO (07:35)
[2021-10-24] MEDS: Budesonide Respules 0.5 MG/2 ML AMPUL.NEB. INHALATION ×2 (07:51→19:18)
[2021-10-24] MEDS: Ipratropium/Albuterol Sulfate 3 ML AMPUL.NEB INHALATION ×4 (07:51→23:27)
--- NOTE | 2021-10-24 09:39 | PN.HOSP_ITS ---
Subjective Subjective Follow-up on debility/ischemic cardiomyopathy: Patient was seen and examined. She denied any new complaints. No acute events overnight. Objective Data Objective Data Vital Signs: Vital Signs Temp Pulse Resp BP Pulse Ox 97.8 F 70 22 H 146/70 H 91 10/24/21 07:22 10/24/21 07:53 10/24/21 07:53 10/24/21 07:22 10/24/21 08:21 Oxygen Flow Rate (L/min) 2 Oxygen Delivery Method Nasal Cannula Weight: 86.9 kg Body Mass Index (BMI) 33.9 Intake & Output: Intake and Output for Last 24 Hours 10/22/21 10/23/21 10/24/21 23:59 23:59 23:59 Intake Total 500 / 500 600 / 600 Output Total 900 / 900 Balance 500 / 500 -300 / -300 Lab / Micro Data Result Diagrams: 10/24/21 04:53 10/24/21 04:53 Labs: Laboratory Results - last 24 hr 10/24/21 04:53: WBC 6.7, RBC 3.84 L, Hgb 10.8 L, Hct 34.0 L, MCV 88.5, MCH 28.1, MCHC 31.8 L, RDW Std Deviation 49.5 H, RDW Coeff of Doretha 15.4 H, Plt Count 240, MPV 10.0, Immature Gran % (Auto) 0.100, Neut % (Auto) 55.4, Lymph % (Auto) 32.9, Charlton % (Auto) 8.8, Eos % (Auto) 2.4, Baso % (Auto) 0.4, Absolute Neuts (auto) 3.7, Absolute Lymphs (auto) 2.20, Nucleated RBC % 0 10/24/21 04:53: Sodium 139, Potassium 3.9, Chloride 105, Carbon Dioxide 28.0, Anion Gap 6, BUN 22 H, Creatinine 0.67, Estim Creat Clear Calc 41.45, Est GFR (MDRD) Af Amer 111, Est GFR (MDRD) Non-Af 91, BUN/Creatinine Ratio 32.7 H, Glucose 144 H, Calcium 8.5, Total Bilirubin 0.20, AST 12 L, ALT 18, Alkaline Phosphatase 105, Total Protein 6.2 L, Albumin 2.8 L, Globulin 3.4, Albumin/Globulin Ratio 0.8 L Micro: Microbiology 10/20/21 18:33 Nasal Secretion SARS-CoV-2 Antigen (Rapid) - Final Rhythm Strip Rhythm Strip: Sinus Rhythm Rate: 57 Ectopy: None Physical Exam Narrative Physical exam: General: Alert, Oriented x3, Cooperative, No apparent distress, Well developed HEENT: Atraumatic Oral: Moist Mucosa Neck: Supple Lungs: Clear to auscultation Cardiovascular: HS I+II, regular, no murmurs Abdomen: Bowel Sounds Present, Soft, Non Tender Extremities: Bilateral leg edema +1 Assessment & Plan Assessment/Plan (1) Debility: PLAN: 1. Debility, probably multifactorial, patient has recent ischemic cardiomyopathy, coronary artery disease status post cardiac stent PT/OT/social work consulted Discharge planning to care home facility ongoing 2. CAD status post recent stent/ischemic cardiomyopathy, EF 60%, stage I diastolic dysfunction Continue on aspirin, Plavix, statin, Losartan and Lasix 3. Hypoxia, unclear etiology, likely secondary to atelectasis Chest x-ray on 10/21 shows no acute cardiopulmonary process Continue on Lasix 4. Hypertension, controlled, continue amlodipine, losartan 5. Rest of her chronic medical conditions including COPD, CKD stage IIIa, chronic smoker, restless leg, anxiety/depression remain stable. Continue on home meds 6. DVT prophylaxis- Lovenox SC Charges/Coding Visit Charges Inpatient E&M: 38805 Subs Hosp L2
--- NOTE | 2021-10-24 10:48 | CASEMGMT ---
Social Work Note SW placed a call to [facility] and spoke with Zoraida. Pre-cert at this time is still pending. Plan: [facility] pending pre-cert Cathie Reyes DIGITAL PRESS OPERATOR, CEMENT HANDLER
[2021-10-24] MEDS: Calcium Carb/Vitamin D 1 TABLET Tablet PO (11:09)
[2021-10-24] MEDS: amLODIPine 5 MG Tablet PO (11:09)
[2021-10-24] MEDS: Potassium Chloride Oral Tablet 10 MEQ PO (11:09)
[2021-10-24] MEDS: Sertraline 50 MG Tablet PO (11:09)
[2021-10-24] MEDS: Azithromycin 250 MG Tablet PO (11:10)
[2021-10-24] MEDS: Enoxaparin 40 MG/0.4 ML Syringe SC (11:10)
[2021-10-24] MEDS: Losartan Potassium 50 MG Tablet PO (11:10)
[2021-10-24] MEDS: Clopidogrel Bisulfate 75 MG Tablet PO (11:10)
[2021-10-24] MEDS: Furosemide 20 MG Tablet PO (11:13)
--- NOTE | 2021-10-24 14:06 | CASEMGMT ---
Discharge Coin Purse Assembler I called over to Zoraida at [facility] and left a voicemail in regards to the pending precert to try and get an update. Left Cathie carcamo for a call back. Wilma Collazo Discharge Coin Purse Assembler
--- NOTE | 2021-10-24 15:30 | CASEMGMT ---
Social Work Note VANESA spoke with Zoraida at [facility] who states pre-cert is still pending. Zoraida states she has emailed the healthcare corporate account director assigned to pt's case and hasn't got an update back yet. VAENSA updated pt that pre-cert is still pending for [facility]. Pt states understanding. Plan: [facility] pending pre-cert Cathie Reyes FRENCH COMBER, BUSINESS TRANSFORMATION ANALYST
[2021-10-24] MEDS: Pramipexole Di-HCl 0.5 MG Tablet 1.5 MG PO (21:55)
[2021-10-24] MEDS: Atorvastatin Calcium 80 MG Tablet PO (21:55)
[2021-10-24] MEDS: traZODone 100 MG Tablet PO (21:55)
[2021-10-25] VITALS (10 sets, daily range): BP systolic 94–134; BP diastolic 41–61; PULSE 57–80; RESP 18–20; TEMP 36.4–36.8; O2SAT 95–100
[2021-10-25] MEDS: Ipratropium/Albuterol Sulfate 3 ML AMPUL.NEB INHALATION ×3 (06:45→19:15)
[2021-10-25] MEDS: Budesonide Respules 0.5 MG/2 ML AMPUL.NEB. INHALATION ×2 (06:45→19:15)
[2021-10-25] MEDS: Potassium Chloride Oral Tablet 10 MEQ PO (08:35)
[2021-10-25] MEDS: Clopidogrel Bisulfate 75 MG Tablet PO (08:35)
[2021-10-25] MEDS: amLODIPine 5 MG Tablet PO (08:35)
[2021-10-25] MEDS: Calcium Carb/Vitamin D 1 TABLET Tablet PO (08:35)
[2021-10-25] MEDS: Enoxaparin 40 MG/0.4 ML Syringe SC (08:36)
[2021-10-25] MEDS: Azithromycin 250 MG Tablet PO (08:36)
[2021-10-25] MEDS: Furosemide 20 MG Tablet PO (08:36)
[2021-10-25] MEDS: Aspirin 81 MG TAB.CHEW PO (08:36)
[2021-10-25] MEDS: Losartan Potassium 50 MG Tablet PO (08:36)
[2021-10-25] MEDS: Sertraline 50 MG Tablet PO (08:36)
--- NOTE | 2021-10-25 09:02 | CASEMGMT ---
Addendum entered by Cathie Reyes 10/25/21 11:40: SW updated that pt is requesting to speak to this worker. SW in to speak with pt. SW updated pt that at this time pre-cert is still pending. Pt states she has been at [facility] since Saturday. SW informed pt that nothing was started on the weekend as admissions is not in and neither is insurance. SW informed pt that nothing was started until Saturday. Pt asked if she can retrun home and wait for pre-cert. SW informed pt that she cannot as the reason she is here for placement is because she stated she cannot take care of herself at home. Pt confirms this. Pt states she is here for placement. SW informed pt that this worker will let her know when decision has been made regarding pre-cert. Pt states understanding. Original Note: Social Work Note SW received message from Zoraida at [facility] stating she checked with [facility] and pre-cert is still pending, hoping to have authorization today. Plan: [facility] pending pre-cert Cathie Reyes CATTLE MANAGER, RADIO INTERFERENCE SUPERVISOR
--- NOTE | 2021-10-25 09:44 | PCM.PN.HOSP ---
Subjective Subjective Follow-up on debility/ischemic cardiomyopathy: Patient was seen and examined. No acute events overnight. Patient remains relatively stable. She is on 2 L of oxygen Objective Data Objective Data Vital Signs: Vital Signs Temp Pulse Resp BP Pulse Ox 97.9 F 64 18 124/52 H 98 10/25/21 07:26 10/25/21 07:26 10/25/21 07:26 10/25/21 07:26 10/25/21 07:26 Oxygen Flow Rate (L/min) 2 Oxygen Delivery Method Nasal Cannula Weight: 86.9 kg Body Mass Index (BMI) 33.9 Intake & Output: Intake and Output for Last 24 Hours 10/23/21 10/24/21 10/25/21 23:59 23:59 23:59 Intake Total 600 / 600 200 / 200 Output Total 900 / 900 Balance -300 / -300 200 / 200 Lab / Micro Data Result Diagrams: 10/24/21 04:53 10/24/21 04:53 Micro: Microbiology 10/20/21 18:33 Nasal Secretion SARS-CoV-2 Antigen (Rapid) - Final Rhythm Strip Rhythm Strip: Sinus Rhythm Rate: 57 Ectopy: None Physical Exam Narrative Physical exam: General: Alert, Oriented x3, Cooperative, No apparent distress, on 2 L of oxygen HEENT: Atraumatic Oral: Moist Mucosa Neck: Supple Lungs: Diminished to auscultation Cardiovascular: HS I+II, regular, no murmurs Abdomen: Bowel Sounds Present, Soft, Non Tender Extremities: Bilateral leg edema +1 Assessment & Plan Assessment/Plan (1) Debility: PLAN: 1. Debility, probably multifactorial, patient has recent ischemic cardiomyopathy, coronary artery disease status post cardiac stent PT/OT/social work consulted Discharge planning to fpc facility ongoing -awaiting pre-CERT 2. CAD status post recent stent/ischemic cardiomyopathy, EF 60%, stage I diastolic dysfunction Continue on aspirin, Plavix, statin, Losartan and Lasix 3. Hypoxia, unclear etiology, likely secondary to atelectasis Chest x-ray on 10/21 shows no acute cardiopulmonary process Continue on Lasix 4. Hypertension, controlled, continue amlodipine, losartan 5. Rest of her chronic medical conditions including COPD, CKD stage IIIa, chronic smoker, restless leg, anxiety/depression remain stable. Continue on home meds 6. DVT prophylaxis- Lovenox SC Charges/Coding Visit Charges Inpatient E&M: 53301 Subs Hosp L2
--- NOTE | 2021-10-25 15:12 | CASEMGMT ---
Social Work SW assisted pt in completing LW/POA forms. SW gave pt the original forms and copies, and copies placed on chart. Pt listed daughter Camille as POA and sons as alternates. Pt also states she spoke to her insurance, was told [facility] Saturday[facility] to make sure the [facility] submitted the request as urgent or expedited. Pt wasn't sure if she should call [facility] or if the SW would. SW explained will call and make sure they submitted the request urgent or expedited. SW called [facility], message left for Jillian regarding the referral and asking if they did submit the request urgent or expedited. VANESA will continue to follow. MONIQUE Granado
--- NOTE | 2021-10-25 15:52 | CASEMGMT ---
Social Work Note VANESA received message from Zoraida at [facility] stating pre-cert is still pending. Zoraida states that they use [facility] for their pre-certs who confirmed that pre-cert has been submitted. VANESA faxed updated clinicals to [facility]. Plan: [facility] pending pre-cert Cathie Reyes ORNAMENT SETTER, BOAT RENTAL CLERK
[2021-10-25] MEDS: COVID-19 VACC, MRNA(PFIZER)/PF 30 MCG/0.3 ML SYRINGE IM (17:39)
[2021-10-25] MEDS: traZODone 100 MG Tablet PO (20:45)
[2021-10-25] MEDS: Pramipexole Di-HCl 0.5 MG Tablet 1.5 MG PO (20:46)
[2021-10-25] MEDS: Atorvastatin Calcium 80 MG Tablet PO (20:46)
[2021-10-26] VITALS (8 sets, daily range): BP systolic 106–126; BP diastolic 46–61; PULSE 62–79; RESP 18–24; TEMP 36.4–36.6; O2SAT 92–99
[2021-10-26 05:39] LABS: Absolute Lymphocyte Count 1.39 X10^3/uL (0.83-4.51); Absolute Neutrophil Count 6.5 X10^3/uL (2.0-7.7); Basophil# 0.03 X10^3/uL; Basophil% 0.3 % (0-1); Eosinophil# 0.18 X10^3/uL; Eosinophils% 2.1 % (0-5); Hematocrit 39.2 % (37-47); Hemoglobin 12.9 g/dL (12.0-15.0); Lymphocyte # 1.39 X10^3/ul (0.83-4.51); Mean Corp Hgb Conc 32.9 g/dL (32-36); Mean Corpuscular Hgb 29.3 pg (27.0-32.0); Mean Corpuscular Volume 89.1 fL (81-99); Mean Platelet Vol. 9.9 fl (6.2-12.0); Monocyte# 0.58 X10^3/uL; Monocyte% 6.7 % (0-10); NRBC Flagged by Analyzer 0 % (0-5); Neutrophil % 74.8 % (47-70); POSITIVE COUNT YES; Platelet Count 269 K/mm3 (150-450); RBC Distribution Width CV 15.1 % (11.6-14.6); RBC Distribution Width SD 49.7 fl (35.1-43.9); White Blood Count 8.7 K/mm3 (4.4-11.0)
[2021-10-26 05:41] LABS: Differential Indicated SCAN CRITERIA MET
[2021-10-26 05:57] LABS: ALB/GLOB Ratio 0.8 RATIO (0.9-2.4); AST(SGOT) 32 U/L (15-37); Alanine Aminotransfer ALT/SGPT 38 U/L (13-56); Albumin, Serum 3.1 g/dL (3.2-5.0); Alkaline Phosphatase 114 U/L (45-117); Anion Gap 2 (5-15); BUN 23 mg/dL (7-18); BUN/Creat Ratio 28.5 RATIO (10-20); Calcium,Total 8.8 mg/dL (8.5-10.1); Chloride 105 mmol/L (98-107); Creatinine, Serum 0.81 mg/dL (0.55-1.02); EST Glomerular Filtration Rate 74 mL/min (>60); Est Glom Filt Rate - Afr Amer 90 mL/min (>60); Estimated Creatinine Clearance 51.17 ml/min; Globulin 4.1 g/dL (2.2-4.2); Glucose 129 mg/dL (74-106); Potassium 4.6 mmol/L (3.5-5.1); Protein, Total 7.2 g/dL (6.4-8.2); Sodium Level 135 mmol/L (136-145)
[2021-10-26 06:31] LABS: Differential Comment SCANNED; Platelet Estimate ADEQUATE (ADEQ)
[2021-10-26] MEDS: Ipratropium/Albuterol Sulfate 3 ML AMPUL.NEB INHALATION ×3 (06:59→19:25)
[2021-10-26] MEDS: Budesonide Respules 0.5 MG/2 ML AMPUL.NEB. INHALATION ×2 (06:59→19:25)
[2021-10-26] MEDS: Enoxaparin 40 MG/0.4 ML Syringe SC (08:55)
[2021-10-26] MEDS: Furosemide 20 MG Tablet PO (08:56)
[2021-10-26] MEDS: Clopidogrel Bisulfate 75 MG Tablet PO (08:56)
[2021-10-26] MEDS: amLODIPine 5 MG Tablet PO (08:56)
[2021-10-26] MEDS: Calcium Carb/Vitamin D 1 TABLET Tablet PO (08:56)
[2021-10-26] MEDS: Aspirin 81 MG TAB.CHEW PO (08:56)
[2021-10-26] MEDS: Sertraline 50 MG Tablet PO (08:56)
[2021-10-26] MEDS: Potassium Chloride Oral Tablet 10 MEQ PO (08:57)
[2021-10-26] MEDS: Azithromycin 250 MG Tablet PO (08:57)
[2021-10-26] MEDS: Losartan Potassium 50 MG Tablet PO (08:57)
--- NOTE | 2021-10-26 11:15 | CASEMGMT ---
Social Work Note SW received call from pt's daughter Camille Diamond. Camille states that she got off the phone with pt's insurance who said pt's claim was denied. Camille asked about other options and how to get pt to SNF. VANESA informed Camille that this worker hasn't heard from [facility] regarding pre-cert, will need to wait to hear from them with official denial. VANESA explained options of private pay at SNF, [facility], outpatient therapy. Camille states that pt cannot go home as pt cannot take care of self. VANESA asked Camille what her specific concerns are with pt going home. Camille states she can't get up to make meals. VANESA informed Camille that at this time, computers are currently down, but informed Camille that yesterday with PT/OT pt walked about 200ft contact guard assist. Camille states well she's having shortness of breath. VANESA informed Camille that if this worker remembers correctly, pt is stable on 2 liters of oxygen yesterday and was able to worh with PT/OT with Oxygen. VANESA informed Camille that this worker will wait for denial from [facility] and then update pt and go over options. VANESA placed a call to Zoraida at [facility] and asked if she received denial. SW waiting for call back. Cathie Reyes METAL WINDOW SCREEN ASSEMBLER, LIBRARY SERVICES ASSISTANT
--- NOTE | 2021-10-26 11:53 | PN.HOSP_ITS ---
Subjective Subjective Follow-up on debility/ischemic cardiomyopathy: Patient was seen and examined. No acute events overnight. No new complaints. Objective Data Objective Data Vital Signs: Vital Signs Temp Pulse Resp BP Pulse Ox 97.6 F L 62 18 113/46 L 98 10/26/21 08:49 10/26/21 08:49 10/26/21 08:49 10/26/21 08:49 10/26/21 08:49 Oxygen Flow Rate (L/min) 2 Oxygen Delivery Method Nasal Cannula Weight: 86.9 kg Body Mass Index (BMI) 33.9 Intake & Output: Intake and Output for Last 24 Hours 10/24/21 10/25/21 10/26/21 23:59 23:59 23:59 Intake Total 200 / 200 Balance 200 / 200 Lab / Micro Data Result Diagrams: 10/26/21 05:30 10/26/21 05:30 Labs: Laboratory Results - last 24 hr 10/26/21 05:30: WBC 8.7, RBC 4.40, Hgb 12.9, Hct 39.2, MCV 89.1, MCH 29.3, MCHC 32.9, RDW Std Deviation 49.7 H, RDW Coeff of Doretha 15.1 H, Plt Count 269, MPV 9.9, Immature Gran % (Auto) 0.100, Neut % (Auto) 74.8 H, Lymph % (Auto) 16.0 L, [place] % (Auto) 6.7, Eos % (Auto) 2.1, Baso % (Auto) 0.3, Absolute Neuts (auto) 6.5, Absolute Lymphs (auto) 1.39, Nucleated RBC % 0, Differential Comment SCANNED, Platelet Estimate ADEQUATE 10/26/21 05:30: Sodium 135 L, Potassium 4.6, Chloride 105, Carbon Dioxide 28.0, Anion Gap 2 L, BUN 23 H, Creatinine 0.81, Estim Creat Clear Calc 51.17, Est GFR (MDRD) Af Amer 90, Est GFR (MDRD) Non-Af 74, BUN/Creatinine Ratio 28.5 H, Glucose 129 H, Calcium 8.8, Total Bilirubin 0.40, AST 32, ALT 38, Alkaline Phosphatase 114, Total Protein 7.2, Albumin 3.1 L, Globulin 4.1, Albumin/Globulin Ratio 0.8 L Micro: Microbiology 10/20/21 18:33 Nasal Secretion SARS-CoV-2 Antigen (Rapid) - Final Rhythm Strip Rhythm Strip: Sinus Rhythm Rate: 57 Ectopy: None Physical Exam Narrative Physical exam: General: Alert, Oriented x3, Cooperative, No apparent distress, on 2 L of oxygen HEENT: Atraumatic Oral: Moist Mucosa Neck: Supple Lungs: Diminished to auscultation Cardiovascular: HS I+II, regular, no murmurs Abdomen: Bowel Sounds Present, Soft, Non Tender Extremities: Bilateral leg edema +1 Assessment & Plan Assessment/Plan (1) Debility: PLAN: 1. Debility, probably multifactorial, patient has recent ischemic cardiomyopathy, coronary artery disease status post cardiac stent PT/OT/social work consulted Discharge planning to retirement facility ongoing -awaiting pre-CERT 2. CAD status post recent stent/ischemic cardiomyopathy, EF 60%, stage I diastolic dysfunction Continue on aspirin, Plavix, statin, Losartan and Lasix 3. Hypoxia, unclear etiology, likely secondary to atelectasis Chest x-ray on 10/21 shows no acute cardiopulmonary process Continue on Lasix 4. Hypertension, controlled, continue amlodipine, losartan 5. Rest of her chronic medical conditions including COPD, CKD stage IIIa, chronic smoker, restless leg, anxiety/depression remain stable. Continue on home meds 6. DVT prophylaxis- Lovenox SC Charges/Coding Visit Charges Inpatient E&M: 03580 Subs Hosp L2
--- NOTE | 2021-10-26 12:37 | CASEMGMT ---
Addendum entered by Cathie Reyes 10/26/21 16:31: VANESA placed a call to pt's CM Nanda Salazar and updated her on pt's admission to [facility] and that pt wanted [facility] but pt got denied so peer to peer will be submitted. VANESA asked Nanda Lee about increasing pt's days and hours for aide services in the event pt has to return home. Nanda states she has called pt's aide services to inquire about increasing aide services. VANESA informed Nanda Salazar that this worker will keep her updated on disposition. Nanda states understanding. Addendum entered by Cathie Reyes 10/26/21 16:26: VANESA placed a call to [place] and left message inquiring if she discussed pt coming to [facility] under Medicaid with her managers. Original Note: Social Work Note SW received call from Zoraida at [facility] stating pt was denied. To schedule peer to peer the number is and reference number is [id number]. VANESA updated physician. Physician to complete peer to peer. VANESA placed a call to peer to peer number and spoke with Tommy and arranged Peer to Peer. Peer to peer is scheduled for tomorrow at 2:00-2:30pm. Physician updated. SW in to speak with pt and pt's daughter Camille. SW updated pt and Camille that insurance denied SNF. SW explained physician is agreeable to doing Peer to Peer which is scheduled for 2:00-2:30pm tomorrow. SW explained that pt needs to think of back up plan in the event denial for peer to peer is upheld. VANESA explained options of Private Pay SNF, HHC or outpatient therapy. Pt states she cannot afford private pay. Pt states she already has aide services 2x a week for two hours and that is not enough help. SW spoke with pt about family initially helping and that she may need to look into that option as well. VANESA explained that this worker will wait until peer to peer is completed but again reiterated that pt will need to have a back up plan in the event the denial is upheld. Camille states that she needs to speak with the physician. VANESA informed Camille that this worker will let physician know. VANESA updated physician. VANESA back in to speak with pt to get clarification on aide services. Pt states they are through [facility] and she does have ELSIE Salazar through [facility]. VANESA again reiterated to pt that she needs to have back up plan for discharge in the event denial is upheld through Peer to Peer. VANESA asked pt if any family could stay with her. Pt states no they all have families and their own lives. VANESA asked pt if she could stay with family initially and pt states No I am not doing that, I am independent. VANESA informed pt that if she is independent then she can return home. VANESA explained that this worker will wait until peer to peer is completed. VANESA placed a call to Zoraida at [facility] and updated her on peer to peer time. VANESA also asked Zoraida if pt could admit under Medicaid part of insurance. Zoraida states she would need to check with her managers regarding this but explained that therapy under Medicaid is very limited. Pt would be admitted under intermediate and may have to stay in a car mover bed. VANESA asked Zoraida to check if that would be an option in the event pt's denial is upheld tomorrow. Zoraida states she will check. Plan: Peer to peer is scheduled for 2:00-2:30pm tomorrow Cathie TALBOT, YOUTH WORKER
[2021-10-26] MEDS: Acetaminophen 325 MG Tablet 650 MG PO (15:56)
[2021-10-26] MEDS: Atorvastatin Calcium 80 MG Tablet PO (20:31)
[2021-10-26] MEDS: traZODone 100 MG Tablet PO (20:31)
[2021-10-26] MEDS: Pramipexole Di-HCl 0.5 MG Tablet 1.5 MG PO (20:31)
[2021-10-27] MEDS: Ibuprofen 200 MG Tablet PO (03:27)
[2021-10-27 03:32] VITALS: BP 120/47; PULSE 70; RESP 18; TEMP 36.2; O2SAT 93
[2021-10-27] MEDS: Acetaminophen 325 MG Tablet 650 MG PO (06:28)
[2021-10-27 07:22] VITALS: PULSE 68; RESP 16; O2SAT 96
[2021-10-27] MEDS: Ipratropium/Albuterol Sulfate 3 ML AMPUL.NEB INHALATION ×2 (07:22→13:32)
[2021-10-27] MEDS: Budesonide Respules 0.5 MG/2 ML AMPUL.NEB. INHALATION (07:22)
[2021-10-27] MEDS: Aspirin 81 MG TAB.CHEW PO (07:43)
[2021-10-27 09:21] VITALS: BP 103/50; PULSE 67; RESP 18; TEMP 36.7; O2SAT 97
[2021-10-27] MEDS: Enoxaparin 40 MG/0.4 ML Syringe SC (09:23)
[2021-10-27] MEDS: Azithromycin 250 MG Tablet PO (09:24)
[2021-10-27] MEDS: Sertraline 50 MG Tablet PO (09:24)
[2021-10-27] MEDS: Potassium Chloride Oral Tablet 10 MEQ PO (09:24)
[2021-10-27] MEDS: Calcium Carb/Vitamin D 1 TABLET Tablet PO (09:24)
[2021-10-27] MEDS: Clopidogrel Bisulfate 75 MG Tablet PO (09:25)
[2021-10-27] MEDS: Furosemide 20 MG Tablet PO (09:25)
--- NOTE | 2021-10-27 10:38 | CASEMGMT ---
Social Work Note SW received message from Zoraida at [facility] stating she spoke with the administrators at [facility]. If the Denial is upheld, pt will NOT be able to admit to [facility] under Medicaid as pt will need to be in a terminal operations supervisor bed under intermediate level of care and [facility] doens't have any fci beds available. Peer to Peer is today between 2:00-2:30pm, VANESA will await determination from Peer to Peer. Cathie Reyes SPRAGGER, ROUGHING MILL OPERATOR
[2021-10-27 13:33] VITALS: PULSE 74; RESP 20
--- NOTE | 2021-10-27 14:33 | CASEMGMT ---
Addendum entered by Margareth Mclaughlin 10/27/21 14:47: Pt did not qualify for home O2. Notified pt and dtr of HHC acceptance. Addendum entered by Margareth Mclaughlin 10/27/21 14:41: Pt dtr brought HHC list to social secretary desk, pt first choice is [facility] followed by [facility]. TC to [facility] who can accept pt for SOC on Saturday or Saturday. Original Note: Notified pt has not been accepted to go to SNF. CONNOR ZIMMERMAN in to pt room, introduced self and role. Patient is interested in HHC being set up. Patient was provided a list of HHC providers including quality and resource use data and consistent with the patient?s preferred geographic region, medical needs, and insurance network. Patient would like to review list and CONNOR ZIMMERMAN will check back. Pt has O2 on. Pt states she only wears at HS with BIPAP. She gets this through [facility]. Spoke with pt nurse Nesha who will test pt for home O2.
--- NOTE | 2021-10-27 14:34 | CASEMGMT ---
Addendum entered by Cathie Reyes 10/27/21 16:48: VANESA placed a call to [place] at [facility] and left message that pt discharged home. Addendum entered by Cathie Reyes 10/27/21 16:48: Nanda Lee requests discharge paperwork be faxed to [phone]. VANESA faxed discharge paperwork to Nanda at [facility]. SW also received call from physician, denial for SNF was upheld. Original Note: Social Work Note SW received call from physician stating she completed peer to peer. Physician with [facility] to discuss it with other staff and will make final determination. [facility] is requesting updated PT/OT from today. VANESA spoke with PT. PT stating pt is safe to return home with HHC, doesn't need SNF level of Care. VANESA updated physician. VANESA placed a call to Zoraida at [facility] and left message that [facility] is requesting updated PT/OT, asked for direct fax number for [facility] or if they do not have direct number, VANESA informed [place] that PT/OT will be faxed over and asked for [facility] to submit updated clinicals. SW in to speak with pt and pt's daughter Camille. SW updated pt and Camille that peer to peer is completed, sounding like the denial will get upheld as even PT is stating pt can return home. VANESA informed pt and Camille that physician at [facility] will discuss case with others but it is sounding like pt will get denied. VANESA spoke with pt about HHC. VANESA also informed pt that this worker did reach out to pt's CM Nanda Salazar and requested aide hours get increased. Camille states pt only wears oxygen at night. SW informed pt and Camille that pt will get tested for Oxygen to see if pt needs to wear it more than at night. VANESA explained that RN CM will be in to speak with pt and Camille regarding HHC and Oxygen. Pt started packing her items in a bag stating just get me discharged, just get me home now. VANESA updated physician. VANESA received call from Zoraida at [facility] stating [facility] but she will get updated PT/OT sent over to [facility] Supervisor [employer] who has been working with pt's case. Pt has discharge in. Pt to return home with HHC. SW in to speak with pt. SW asked pt if she wanted to wait until the official answer from insurance came through and pt states no it's not going to change anything, I am going home. VANESA placed a call to pt's ELSIE Salazar and updated her that pt will be going home with [facility] today. VANESA asked Nanda if she heard back from pt's aide services about increasing hours. Nanda states pt's aide hours are going to give pt a 30 day notice due to staffing so she is going to reach out to other companies to see about getting pt aide hours. Plan: Home with [facility], aide services. Cathie Reyes BURRING MACHINE OPERATOR, [employer]
--- NOTE | 2021-10-27 14:36 | DS.PCM_ITS ---
Providers Date of Admission: 10/20/21 Date of Discharge: 10/27/21 Primary Care Physician: Dr. Heladio Edwadrs MD Reason For Visit: ADULT FAILURE TO THRIVE Diagnosis Discharge Diagnosis (1) Debility: Status: Acute Code(s): R53.81 - Other malaise Medications at Discharge Home Medications pramipexole 1.5 mg PO QHS 06/12/14 trazodone 100 mg PO QHS 06/12/14 ropinirole 2 mg PO QHS 10/20/15 umeclidinium 62.5 mcg/actuation blister powder for inhalation 1 puff INHALATION DAILY 08/29/20 amlodipine 5 mg PO DAILY 03/17/21 furosemide 20 mg PO DAILY 03/17/21 losartan 50 mg PO DAILY 03/17/21 sertraline 50 mg PO DAILY 03/17/21 calcium carbonate-vitamin D3 [Oyster Shell Calcium-Vit D3] 1 tab PO DAILY 04/19/21 ibandronate 150 mg PO QMONTH 04/19/21 Breo Ellipta 1 inh INHALATION DAILY 10/20/21 atorvastatin 80 mg PO QHS 10/20/21 azithromycin 250 mg PO DAILY 10/20/21 clopidogrel 75 mg PO DAILY 10/20/21 potassium chloride 10 meq PO DAILY 10/20/21 aspirin 81 mg PO BREAKFAST 30 Days #30 tab 10/27/21 Hospital Course Operations None Procedures None Summary of Care Provided Minutes Spent on Discharge: 40 Hospital Course: 71-year-old female with past medical history of CAD status post stent, ischemic cardiomyopathy, nicotine abuse who presented to the emergency room with progressive shortness of breath. Patient recently had a stent done in August 15. She is due to have cardiac rehab. She however is unable to take c are of herself. She was supposed to cardiac rehab. She was supposed to get cardiac rehab admitted in the hospital after her cardiac stent. She is however unable to be in [facility] 3 times a week. She is unable to care for herself. Patient was admitted to the hospital. PT/OT was consulted. Social work and case management were consulted. Patient was recommended to be discharged to [facility] facility as she has no family support. Insurance denied patient precert. Patient was discharged home with home health. Patient will follow-up with her primary care doctor and as well as with cardiac rehab. Physical Exam Narrative Physical exam: General: Alert, Oriented x3, Cooperative, No apparent distress, on 2 L of oxygen HEENT: Atraumatic Oral: Moist Mucosa Neck: Supple Lungs: Diminished to auscultation Cardiovascular: HS I+II, regular, no murmurs Abdomen: Bowel Sounds Present, Soft, Non Tender Extremities: Bilateral leg edema +1 Weight / BMI Weight Weight: 86.9 kg Body Mass Index (BMI) 33.9 ABG / Lab / Microbiology Data Result Diagrams: 10/26/21 05:30 10/26/21 05:30 Microbiology: Microbiology 10/20/21 18:33 Nasal Secretion SARS-CoV-2 Antigen (Rapid) - Final D/C Instructions Discharge Diet: Low fat / Low cholesterol, 6 Cup Fluid Restriction and 2000 mg Sodium Diet Meaningful Use Info Meaningful Use Diagnoses (Choose all that apply): None applicable Discharge Plan Admission Admit Date/Time: 10/20/21 20:07 Primary Reason for Your Visit: Debility Attending Provider: Rachael Terrell Primary Care Provider: Heladio Edwards Instructions Additional Instructions / Restrictions: Continue to take your medications as prescribed. Follow-up with cardiac rehab in the outpatient. Discharge Orders/Prescriptions Prescriptions: New aspirin 81 mg Tablet,Chewable 81 mg PO BREAKFAST 30 Days Qty: 30 RF: 0 Continued umeclidinium 62.5 mcg/actuation blister with device 1 puff INHALATION DAILY RF: 0 trazodone 100 MG tablet 100 mg PO QHS RF: 0 pramipexole 1.5 MG tablet 1.5 mg PO QHS RF: 0 ropinirole 2 MG tablet 2 mg PO QHS RF: 0 losartan 50 mg tablet 50 mg PO DAILY RF: 0 furosemide 20 mg tablet 20 mg PO DAILY RF: 0 sertraline 50 mg tablet 50 mg PO DAILY RF: 0 amlodipine 5 MG tablet 5 mg PO DAILY RF: 0 ibandronate 150 mg tablet 150 mg PO QMONTH RF: 0 calcium carbonate-vitamin D3 [Oyster Shell Calcium-Vit D3] 250-125 mg-unit tablet 1 tab PO DAILY RF: 0 atorvastatin 80 mg tablet 80 mg PO QHS RF: 0 azithromycin 250 mg tablet 250 mg PO DAILY RF: 0 potassium chloride 10 mEq tablet extended release 10 meq PO DAILY RF: 0 clopidogrel 75 mg tablet 75 mg PO DAILY RF: 0 Breo Ellipta 100-25 mcg/dose blister with device 1 inh INHALATION DAILY RF: 0 Discontinued tramadol 50 mg Tablet 50 mg PO BID RF: 0 Referrals / Follow Up: Heladio Edwards MD [Primary Care Provider] - Within 2 Weeks Disposition Disposition (needs filled in before D/C Order can be placed): Home Health Service Charges/Coding Visit Charges Inpatient E&M: 70307 Disch Hosp
[2021-10-27 14:43] VITALS: O2SAT 91; O2SAT 93
== END 2021-10-27 15:03 | disposition home health service (06) ==
LOC: ED 20:26 → MS3 20:28
PROVIDERS: Internal Medicine; Admitting Provider Hospitalist; Emergency Provider Emergency Medicine; PCP Family Medicine; Visit Provider Internal Medicine
DX: J43.0 Unilateral pulmonary emphysema [MacLeod's syndrome] (principal); E11.40 Type 2 diabetes mellitus with diabetic neuropathy, unspecified; I25.5 Ischemic cardiomyopathy; R62.7 Adult failure to thrive; R53.81 Other malaise; G89.29 Other chronic pain; N18.31 Chronic kidney disease, stage 3a; I25.10 Atherosclerotic heart disease of native coronary artery without angina pectoris; Z23 Encounter for immunization; R94.31 Abnormal electrocardiogram [ECG] [EKG]; Z90.2 Acquired absence of lung [part of]; Z79.02 Long term (current) use of antithrombotics/antiplatelets; Z79.83 Long term (current) use of bisphosphonates; Z79.899 Other long term (current) drug therapy; Z86.711 Personal history of pulmonary embolism; Z86.718 Personal history of other venous thrombosis and embolism; F41.9 Anxiety disorder, unspecified; F32.A Depression, unspecified; Z87.891 Personal history of nicotine dependence
CPT/HCPCS: 0004A; 36415; 71045; 80048; 80053; 82962; 83036; 84484; 85025; 87426; 91300; 93005; 94002; 94003; 94640; 94660; 94760; 96372; 97110; 97162; 97166; 97530; 97535; 99218; 99251; 99285; 99406; A4216; G0378; G0463

== ENCOUNTER 2022-02-24 21:41 | Inpatient (IN) | payer MEDICARE, MEDICAID, SELFPAY ==
[2022-02-24 21:42] VITALS: BP 125/85; PULSE 87; RESP 16; TEMP 36.3; O2SAT 100; BMI 35.2
[2022-02-24 21:45] VITALS: BP 125/85; PULSE 87; RESP 16; TEMP 36.3; O2SAT 100
--- NOTE | 2022-02-24 21:59 | EKG12_ITS ---
Test Reason : DYSRHYTHMIA Blood Pressure : / mmHG Vent. Rate : 086 BPM Atrial Rate : 086 BPM P-R Int : 168 ms QRS Dur : 084 ms QT Int : 378 ms P-R-T Axes : 022 052 069 degrees QTc Int : 452 ms Normal sinus rhythm Normal ECG Confirmed by GOSIA RUSHING, JOLLY ([id number]), editor farm journal AYANNA LORENZO ([id number]) on 02/27/2022 9:59:03 AM Referred By: ZITA Confirmed By:JLOLY ELISE MD
--- NOTE | 2022-02-24 22:02 | ED.VIS.DYS ---
HPI History of Present Illness Chief Complaint: Palpitations Informant: patient Onset/Context/Timing Onset: Weeks (1) Context: gradual and onset Timing: Continuous Quality: Positive for Dyspnea on exertion Current Severity: Severe Maximum Severity: Severe Worsened by: Exertion and Coughing Relieved by: Rest and Albuterol (partially and temporarily) Associated Symptoms cough, white sputum and yellow sputum Chest Pain: Positive for Tightness Narrative Narrative: 71-year-old female history of COPD CAD with a stent placed last year presenting with gradually worsening shortness of breath, increased cough with occasionally white, clear, occasional yellow sputum production no hemoptysis, no fevers or chills, some chest tightness but nothing that feels like angina to her. The tightness gets better with albuterol as does her dyspnea temporarily but she has been gradually getting worse in the past week, which is how long she has been home from [place] where she was admitted for 4 days for the same. She states she was on steroids while she was there, they discharged her home with 2 days of prednisone no antibiotics at discharge. Legs are little swollen for the past 3 to 4 days this is happened before but not typically like this. They are bilaterally and symmetric without calf pain. Pulmonology sees Dr. Manuel who retired now Dr. Robin, has f/u scheduled for this coming week post admission. [facility] Medical History Asthma Chronic pain COPD (chronic obstructive pulmonary disease) Diabetes DVT (deep venous thrombosis) Knee arthropathy Lung cancer Pulmonary embolism Home Medications pramipexole 1.5 mg tablet 1.5 mg PO QHS restless legs 06/12/14 [History Last Taken 10/19/21] trazodone 100 mg tablet 100 mg PO QHS sleep 06/12/14 [History Last Taken 10/19/21] ropinirole 2 mg tablet 2 mg PO QHS restless legs 10/20/15 [History Last Taken 10/19/21] umeclidinium 62.5 mcg/actuation blister powder for inhalation 1 puff inhalation DAILY breathing 08/29/20 [History Last Taken 10/20/21] furosemide 20 mg tablet 20 mg PO DAILY water pill 03/17/21 [History Last Taken 10/20/21] calcium carbonate 250 mg-vitamin D3 3.125 mcg (125 unit) tablet (Oyster Shell Calcium-Vitamin D3) 1 tab PO DAILY 04/19/21 [History Last Taken 10/20/21] ibandronate 150 mg tablet 150 mg PO QMONTH 04/19/21 [History Last Taken 09/27/21] atorvastatin 80 mg tablet 80 mg PO QHS cholesterol 10/20/21 [History Last Taken 10/19/21] clopidogrel 75 mg tablet 75 mg PO DAILY blood thinner 10/20/21 [History Last Taken 10/20/21] fluticasone furoate 100 mcg-vilanterol 25 mcg/dose inhalation powder (Breo Ellipta) 1 inh inhalation DAILY sob 10/20/21 [History Last Taken 10/20/21] aspirin 81 mg chewable tablet 81 mg PO BREAKFAST 30 days #30 tabs 10/27/21 [Rx Last Taken Unknown] Allergy/AdvReac Type Severity Reaction Status Date / Time bupropion HCl Allergy Hives Verified 02/24/22 21:44 [From Wellbutrin] gabapentin [From Neurontin] Allergy Hives Verified 02/24/22 21:44 moxifloxacin HCl Allergy Hives Verified 02/24/22 21:44 [From Avelox] Family History Other COPD (chronic obstructive pulmonary disease) Cancer Diabetes Heart disease Surgical History H/O hand surgery H/O heart artery stent H/O knee surgery H/O: hysterectomy History of back surgery Status post lobectomy of lung Social History Smoking Status: Former smoker substance use type: does not use ROS ROS ED Constitutional Constitutional ED: Denies chills or fever(s) Eyes Eyes: Denies change in vision or diplopia ENT ENT ED: Denies rhinorrhea or sore throat Cardiovascular Cardiovascular: Reports leg edema and other Details: With little exertion patient is dyspneic and heart beats hard, but not necessarily fast or with any skips or palpitations. ; Denies chest pain, orthopnea, palpitations or paroxysmal nocturnal dyspnea Respiratory/Chest Respiratory/Chest: Reports cough, dyspnea, dyspnea on exertion and sputum; Denies excessive phlegm production, orthopnea or paroxysmal nocturnal dyspnea Gastrointestinal Gastrointestinal: Denies abdominal pain, diarrhea, nausea or vomiting Genitourinary Genitourinary ED: Denies dysuria or hematuria Musculoskeletal Musculoskeletal: Denies back pain or neck pain Integumentary Denies abscess or rash Neurologic Neurologic: Denies headache(s), paresthesias or weakness Psychiatric Psychiatric: Denies anxiety or suicidal thoughts Hematologic/Lymphatic Hematologic/Lymphatic: Reports easy bleeding and easy bruising EXAM Physical Exam Const Vital Signs: 02/24/22 21:42 02/24/22 21:45 02/24/22 21:50 Temperature 97.3 F L 97.3 F L Temperature Source Temporal Temporal Pulse Rate 87 87 Respiratory Rate 16 16 Respiratory Effort Short of Breath Respiratory Depth Respiratory Pattern Tachypnea Blood Pressure 125/85 H 125/85 H Blood Pressure Mean 98 98 Pulse Ox 100 100 Oxygen Delivery Method Nasal Cannula Nasal Cannula Oxygen Flow Rate (L/min) 2.5 02/24/22 22:12 02/24/22 22:12 02/25/22 00:14 Temperature Temperature Source Pulse Rate 88 108 H Respiratory Rate 18 20 H 15 Respiratory Effort Normal Short of Breath Respiratory Depth Normal Respiratory Pattern Normal Normal Blood Pressure 148/73 H Blood Pressure Mean 98 Pulse Ox 97 98 Oxygen Delivery Method Nasal Cannula Nasal Cannula Oxygen Flow Rate (L/min) 2 3 02/25/22 01:00 Temperature 97.6 F L Temperature Source Temporal Pulse Rate 82 Respiratory Rate 18 Respiratory Effort Respiratory Depth Respiratory Pattern Blood Pressure 142/77 H Blood Pressure Mean 98 Pulse Ox 94 Oxygen Delivery Method Nasal Cannula Oxygen Flow Rate (L/min) 2.5 Positive well nourished, well developed and obese Constitutional Narrative: Tachypneic no distress General Appearance ED: well developed and NAD Nutritional Appearance: obese HEENT Reports moist mucous membranes normocephalic and atraumatic Eyes PERRL and EOMs intact bilaterally Neck full ROM, supple and no JVD Resp Resp Narrative: Tachypneic speaking in 10-15 were sentences, and expiratory wheezes, diffusely diminished breath sounds symmetrically, trachea midline. Cardio regular rate, regular rhythm and no murmurs Rate: Negative for bradycardia or tachycardic GI non-tender and non-distended Auscultation: normoactive bowel sounds Palpation: soft Back/Spine no CVA tenderness General Back: other FROM Extremity normal to inspection General Extremety ED: Yes edema; Negative for pulses abnormal or tenderness General Extremity: edema bilateral lower extremity Details: mild; Negative for pulses abnormal Neuro oriented x3, CN's II-XII intact bilaterally and no sensory deficits noted Sensorium / Orientation: awake and alert Motor Exam: strength 5/5 throughout Psych Mood & Affect: anxious Skin no rashes or lesions noted and no wounds MDM MDM MDM Narrative Medical decision making narrative: Patient was given several nebulizer treatments, terbutaline, Solu-Medrol. She did have some improvement but with very little exertion she is extremely dyspneic and desatted down to 84% while on her home 2.5 L nasal cannula; she came back up in the 90s after resting for a bit. I think she would benefit from staying the night in the hospital. Chest x-ray 1 view my interpretation shows no pneumonia or effusions. Cardiac work-up is unremarkable, I think this is mostly COPD and not congestive heart failure. Lab Data Attestation: I reviewed the patient's lab results. Labs: Laboratory Results - last 24 hr 02/24/22 02/24/22 02/24/22 22:11 22:11 22:11 WBC 11.6 H RBC 4.45 Hgb 12.6 Hct 39.9 MCV 89.7 MCH 28.3 MCHC 31.6 L RDW Std Deviation 52.5 H RDW Coeff of Doretha 16.1 H Plt Count 323 MPV 10.2 Immature Gran % (Auto) 0.500 Neut % (Auto) 68.9 Lymph % (Auto) 22.7 [place] % (Auto) 6.3 Eos % (Auto) 1.3 Baso % (Auto) 0.3 Absolute Neuts (auto) 8.0 H Absolute Lymphs (auto) 2.64 Nucleated RBC % 0 Sodium 139 Potassium 3.8 Chloride 103 Carbon Dioxide 28.0 Anion Gap 8 BUN 15 Creatinine 0.98 Estim Creat Clear Calc 42.29 Est GFR (MDRD) Af Amer 72 Est GFR (MDRD) Non-Af 59 L BUN/Creatinine Ratio 15.4 Glucose 115 H Calcium 9.1 Troponin I High Sens 8 B-Natriuretic Peptide 17.0 Radiography Chest X-Ray - ED: 1 View, Read by ED Physician, No Acute Disease and Chronic Changes Diagnostic Testing: Clinical Impression(s) from Imaging Studies Chest X-Ray 02/24/22 22:47 IMPRESSION: No acute cardiopulmonary disease. Electronically Signed: Hi Beach MD at 23:16 EDT , Rhythm Strip Rhythm Strip: Sinus Rhythm Rate: 85 Ectopy: None EKG Initial EKG: Attestation: I personally reviewed and interpreted this EKG as follows: Interpretation: Sinus Rhythm and No Acute Injury Pattern Comments: Normal EKG Discharge Plan Dx/Rx/DC Orders Clinical Impression: COPD exacerbation, Hypoxemia, Acute respiratory insufficiency Disposition Disposition: Acute Care Hospital [facility]
[2022-02-24 22:12] VITALS: PULSE 88; RESP 18; RESP 20; O2SAT 97
[2022-02-24] MEDS: Ipratropium/Albuterol Sulfate 3 ML AMPUL.NEB INHALATION (22:12)
[2022-02-24] MEDS: Albuterol 2.5 MG/3 ML VIAL.NEB. INHALATION ×3 (22:22→23:47)
[2022-02-24 22:26] LABS: Absolute Lymphocyte Count 2.64 X10^3/uL (0.83-4.51); Basophil# 0.03 X10^3/uL; Basophil% 0.3 % (0-1); Eosinophil# 0.15 X10^3/uL; Eosinophils% 1.3 % (0-5); Hematocrit 39.9 % (37-47); Hemoglobin 12.6 g/dL (12.0-15.0); Lymphocyte # 2.64 X10^3/ul (0.83-4.51); Lymphocyte % 22.7 % (19-41); Mean Corp Hgb Conc 31.6 g/dL (32-36); Mean Corpuscular Hgb 28.3 pg (27.0-32.0); Mean Corpuscular Volume 89.7 fL (81-99); Mean Platelet Vol. 10.2 fl (6.2-12.0); Monocyte# 0.73 X10^3/uL; Monocyte% 6.3 % (0-10); NRBC Flagged by Analyzer 0 % (0-5); Neutrophil % 68.9 % (47-70); Platelet Count 323 K/mm3 (150-450); RBC Distribution Width CV 16.1 % (11.6-14.6); RBC Distribution Width SD 52.5 fl (35.1-43.9); Red Blood Count 4.45 M/mm3 (4.2-5.4); White Blood Count 11.6 K/mm3 (4.4-11.0)
--- NOTE | 2022-02-24 22:47 | RAD_ITS ---
INDICATION: dyspnea EXAMINATION/TECHNIQUE: X-RAY - XR Chest 1 View COMPARISON: 10/20/2021 FINDINGS: LINES/DEVICES: None. LUNGS: No consolidation, edema or effusion. No pneumothorax. MEDIASTINUM AND CARDIOVASCULAR STRUCTURES: Atherosclerotic calcifications and cardiomediastinal contours, similar compared to the prior. BONES AND SOFT TISSUES: Midthoracic vertebroplasty again noted. No acute osseous abnormality.. RAD/Chest 1 View (Portable) IMPRESSION: No acute cardiopulmonary disease. Electronically Signed: Hi Beach MD at 23:16 EDT ,
[2022-02-24 22:48] LABS: Anion Gap 8 (5-15); BUN 15 mg/dL (7-18); BUN/Creat Ratio 15.4 RATIO (10-20); Calcium,Total 9.1 mg/dL (8.5-10.1); Chloride 103 mmol/L (98-107); Creatinine, Serum 0.98 mg/dL (0.55-1.02); EST Glomerular Filtration Rate 59 mL/min (>60); Est Glom Filt Rate - Afr Amer 72 mL/min (>60); Estimated Creatinine Clearance 42.29 ml/min; Glucose 115 mg/dL (74-106); Potassium 3.8 mmol/L (3.5-5.1); Sodium Level 139 mmol/L (136-145); Troponin-I HS 8 pg/mL (3.0-54.0)
--- NOTE | 2022-02-24 22:54 | CPS ---
x1 Albuterol given to pt. in ER as well. Pt. stated that she didn't want any more breathing tx.'s at this time. I explained to her that there are two Albuterol tx.'s left that we're able to give her if she needs them. Dr. O[place]o notified.
[2022-02-24] MEDS: Terbutaline 1 MG/ML Vial 0.25 MG SC (23:06)
[2022-02-24] MEDS: MethylPREDNISolone 125 MG/2 ML Vial IV (23:06)
[2022-02-25] VITALS (12 sets, daily range): BP systolic 112–148; BP diastolic 53–77; PULSE 81–108; RESP 15–25; TEMP 36.3–36.9; O2SAT 93–100; BMI 34.6
--- NOTE | 2022-02-25 00:18 | CPS ---
[2346] x2 Albuterol given to pt. at this time. Pt. experiencing dyspnea and increase in tachypnea. Pre-assessment: 113 HR, 26 RR with RUL absent and wheezes throughout lung moses. Post-assessment: 110 HR, 24 RR with RUL absent and cleared breath sounds. Wheezes have subsided and pt. appears to more comfortable at this time.
--- NOTE | 2022-02-25 01:01 | PCM.HP.STD ---
HPI - General General Date of Admission: 02/25/22 Date of Service: 02/25/22 Chief Complaint: Exertional dyspnea, palpitations. HPI Narrative The patient is a 71 y/o F w/ PMHx: CKD stage IIIa, RLS, Anxiety and Depression, CAD s/p PCI, Hx VTE (DVT, BL PE), Hx Lung CA s/p lobectomy, Chronic pain syndrome, Obesity, ? Diabetes mellitus type II, SHANA, Tobacco use, COPD/Asthma w/ chronic hypoxia respiratory failure (2.5L) w/ recent exacerbation discharged from [facility] who now presents to the [facility] ED on 02/25/22 with history of discharge this week with upon return to home since completion of her steroids (2 days only) notable dyspnea, worse with any exertion, ongoing wheezing more severe on evening prior to day of presentation prompting ED evaluation. Work-up in the ED included T97.3, heart rate 87, BP 125/85, respiratory rate 16, desaturated to 84% with exertion per discussion with ED physician, 98% on 2.5 L nasal cannula, CBC with WBC 11.6, hemoglobin 12.6, platelets 323 with mild left shift, BMP unremarkable aside glucose 115, troponin 8, BNP 17, chest x-ray with no acute cardiopulmonary findings, rapid COVID and antigen testing negative. In the ED patient administered albuterol, DuoNeb therapy as well as Solu-Medrol and terbutaline. In the ED following intervention patient's does feel as though she is breathing better. [facility] Medical History (Updated 02/25/22 @ 01:[address] Georgie Ashley MD) Asthma Chronic pain Chronic respiratory failure with hypoxia COPD (chronic obstructive pulmonary disease) Coronary artery disease Diabetes DVT (deep venous thrombosis) Knee arthropathy Lung cancer Pulmonary embolism Tobacco abuse Home Medications pramipexole 1.5 mg tablet 1.5 mg PO QHS restless legs 06/12/14 [History Last Taken 10/19/21] trazodone 100 mg tablet 100 mg PO QHS sleep 06/12/14 [History Last Taken 10/19/21] ropinirole 2 mg tablet 2 mg PO QHS restless legs 10/20/15 [History Last Taken 10/19/21] umeclidinium 62.5 mcg/actuation blister powder for inhalation 1 puff inhalation DAILY breathing 08/29/20 [History Last Taken 10/20/21] furosemide 20 mg tablet 20 mg PO DAILY water pill 03/17/21 [History Last Taken 10/20/21] calcium carbonate 250 mg-vitamin D3 3.125 mcg (125 unit) tablet (Oyster Shell Calcium-Vitamin D3) 1 tab PO DAILY 04/19/21 [History Last Taken 10/20/21] ibandronate 150 mg tablet 150 mg PO QMONTH 04/19/21 [History Last Taken 09/27/21] atorvastatin 80 mg tablet 80 mg PO QHS cholesterol 10/20/21 [History Last Taken 10/19/21] clopidogrel 75 mg tablet 75 mg PO DAILY blood thinner 10/20/21 [History Last Taken 10/20/21] fluticasone furoate 100 mcg-vilanterol 25 mcg/dose inhalation powder (Breo Ellipta) 1 inh inhalation DAILY sob 10/20/21 [History Last Taken 10/20/21] aspirin 81 mg chewable tablet 81 mg PO BREAKFAST 30 days #30 tabs 10/27/21 [Rx Last Taken Unknown] Allergy/AdvReac Type Severity Reaction Status Date / Time bupropion HCl Allergy Hives Verified 02/24/22 21:44 [From Wellbutrin] gabapentin [From Neurontin] Allergy Hives Verified 02/24/22 21:44 moxifloxacin HCl Allergy Hives Verified 02/24/22 21:44 [From Avelox] Family History (Updated 02/25/22 @ 01:[address] Georgie Ashley MD) Mother COPD (chronic obstructive pulmonary disease) Cancer Diabetes Heart disease Father COPD (chronic obstructive pulmonary disease) Cancer Diabetes Heart disease Surgical History H/O hand surgery H/O heart artery stent H/O knee surgery H/O: hysterectomy History of back surgery Status post lobectomy of lung Social History (Updated 02/25/22 @ 01:[address] Georgie Ashley MD) household members: none Smoking Status: Former smoker how long ago did patient quit smoking: Quit tobacco use ~ 3 months prior 11/2021. alcohol intake: never substance use type: does not use ROS ROS Narrative Admission Review of Systems: CONSTITUTIONAL: No weight loss, fever, chills, + weakness or fatigue. HEENT: Eyes: No visual loss, blurred vision, double vision or yellow sclerae. Ears, Nose, Throat: No hearing loss, sneezing, congestion, runny nose or sore throat. SKIN: No rash or itching, lesions, wounds. CARDIOVASCULAR: No chest pain, chest pressure or chest discomfort, palpitations, edema, orthopnea, syncopal events. RESPIRATORY: + Shortness of breath, occasional cough without marked sputum, wheezing, No hemoptysis. GASTROINTESTINAL: No anorexia, nausea, vomiting or diarrhea, abdominal pain, melena, BRBPR. GENITOURINARY: No dysuria, frequency, urgency or retention. NEUROLOGICAL: No headache, dizziness, syncope, paralysis, ataxia, numbness or tingling in the extremities, focal weakness, change in bowel or bladder control, seizure. MUSCULOSKELETAL: + muscle, back pain, joint pain or stiffness. HEMATOLOGIC: + anemia, bleeding or bruising. LYMPHATICS: No enlarged nodes. No history of splenectomy. PSYCHIATRIC: + history of depression or anxiety. ENDOCRINOLOGIC: No reports of sweating, cold or heat intolerance. No polyuria or polydipsia. ALLERGIES: + history of asthma, hives, eczema or rhinitis. Vital Signs Vital Signs Vital Signs: 02/24/22 21:42 02/24/22 21:45 02/24/22 21:50 Temperature 97.3 F L 97.3 F L Temperature Source Temporal Temporal Pulse Rate 87 87 Respiratory Rate 16 16 Respiratory Effort Short of Breath Respiratory Depth Respiratory Pattern Tachypnea Blood Pressure 125/85 H 125/85 H Blood Pressure Mean 98 98 Pulse Ox 100 100 Oxygen Delivery Method Nasal Cannula Nasal Cannula Oxygen Flow Rate (L/min) 2.5 02/24/22 22:12 02/24/22 22:12 02/25/22 00:14 Temperature Temperature Source Pulse Rate 88 108 H Respiratory Rate 18 20 H 15 Respiratory Effort Normal Short of Breath Respiratory Depth Normal Respiratory Pattern Normal Normal Blood Pressure 148/73 H Blood Pressure Mean 98 Pulse Ox 97 98 Oxygen Delivery Method Nasal Cannula Nasal Cannula Oxygen Flow Rate (L/min) 2 3 Weight Weight: 199 lb Body Mass Index (BMI) 35.2 Physical Exam Narrative Physical Examination: General: Awake, alert, oriented x 3 and cooperative, laying in the ED bed, notes feeling improved, previously had increased work of breathing Skin: Normal color, normal turgor, no icterus, no cyanosis. HEENT: AT/NC, EOMI, PERRLA, MMM, no carotid bruits or JVD noted; however, thickened neck makes evaluation difficult. Lungs: Significantly diminished, distant occasional expiratory wheeze, mildly increased respiratory rate although patient does report feeling improved since initial ED presentation, mild distress is lessening, no rales or rhonchi. Heart: Mildly tachycardic with rhythm; no gallop, rub audible. Abdomen: Soft, obese, NTTP, ND, distant normal BS, no HSM. Extremities: No cyanosis, no clubbing, mild bilateral ankle minimally pitting edema. Neurological: Patient awake, alert, oriented x 3, cognitive function appears intact; pupils equally reactive to light and accommodation, cranial nerves II-XII grossly normal, moving all 4 extremities, no focal deficits, strength moderately to severely globally Kendra secondary to acute presentation. Psychiatric: Affect appears fatigued, respiratory mild distress abating, no acute evidence of depressive or anxiety feelings but underlying history. Results Lab / Micro Data Result Diagrams: 02/24/22 22:11 02/24/22 22:11 Labs: Laboratory Results - last 24 hr 02/24/22 22:11: WBC 11.6 H, RBC 4.45, Hgb 12.6, Hct 39.9, MCV 89.7, MCH 28.3, MCHC 31.6 L, RDW Std Deviation 52.5 H, RDW Coeff of Doretha 16.1 H, Plt Count 323, MPV 10.2, Immature Gran % (Auto) 0.500, Neut % (Auto) 68.9, Lymph % (Auto) 22.7, [place] % (Auto) 6.3, Eos % (Auto) 1.3, Baso % (Auto) 0.3, Absolute Neuts (auto) 8.0 H, Absolute Lymphs (auto) 2.64, Nucleated RBC % 0 02/24/22 22:11: Sodium 139, Potassium 3.8, Chloride 103, Carbon Dioxide 28.0, Anion Gap 8, BUN 15, Creatinine 0.98, Estim Creat Clear Calc 42.29, Est GFR (MDRD) Af Amer 72, Est GFR (MDRD) Non-Af 59 L, BUN/Creatinine Ratio 15.4, Glucose 115 H, Calcium 9.1, Troponin I High Sens 8 02/24/22 22:11: B-Natriuretic Peptide 17.0 Micro: Microbiology 02/24/22 22:11 Nasal Secretion SARS-CoV-2 & FLU Antigen (Rapid) - Final Rhythm Strip Rhythm Strip: Sinus Rhythm Rate: 85 Ectopy: None Radiology Impression Chest X-Ray 02/24/22 22:47 IMPRESSION: No acute cardiopulmonary disease. Electronically Signed: Hi Beach MD at 23:16 EDT , Assessment & Plan Assessment/Plan (1) COPD exacerbation: PLAN: Plan The patient is a 71 y/o F w/ PMHx: CKD stage IIIa, RLS, Anxiety and Depression, CAD s/p PCI, Hx VTE (DVT, BL PE), Hx Lung CA s/p lobectomy, Chronic pain syndrome, Obesity, ? Diabetes mellitus type II, SHANA, Tobacco use, COPD/Asthma w/ chronic hypoxia respiratory failure (2.5L) w/ recent exacerbation discharged from [facility] who now presents to the [facility] ED on 02/25/22 with history of discharge this week with upon return to home since completion of her steroids (2 days only) notable dyspnea, worse with any exertion, ongoing wheezing more severe on evening prior to day of presentation. #1. Acute on chronic COPD exacerbation with acute hypoxia on chronic hypoxic respiratory failure: Will admit to [facility], maintain on oxygen with wean as tolerated to home oxygen supplementation, continue ATC duonebs, PRN albuterol, IV methylprednisolone with prednisone transition, HOB, IS parameters, will request sputum culture, procalcitonin, obtain respiratory viral panel, defer immediate antibiotic therapy is afebrile and given recent steroid usage mild WC elevation could certainly have been from steroid. #2. CAD, ischemic cardiomyopathy: Status post PCI 07/2021 [facility], 04/20/2021 echocardiogram with global LV, normal LV systolic function, EF 60%, stage I diastolic dysfunction, bubble contrast study negative for [id number] interatrial shunt, will continue aspirin, Plavix, statin, losartan regimen. #3. ? Diabetes mellitus type II: Noted in history, not on regimen, potentially diet controlled, hemoglobin A1c requested, in the interim we will maintain on ADA diet, accu checks w/ ISS. #4. History VTE: DVT, BL PE, not anticoagulated currently. #5. History of Lung Cancer: Unclear specific type, s/p lobectomy, considered in remission. #6. Hypertension: Continue home regimen including Lasix, losartan, Norvasc, PRN hydralazine. #7. Hyperlipidemia: We will continue patient on statin therapy. #8. Restless leg syndrome: We will continue patient home Requip and pramipexole regimen. #9. Anxiety and depression: We will continue patient home sertraline and trazodone regimen. #10. Chronic Kidney Disease Stage IIIa: Admission BUN/Cr 15/0.98, baseline renal function 0.5-0.8 primarily, repeat BMP in AM. #11. Tobacco Abuse: Encouraged cessation, inpatient consultation per RT, NR if desired. #12. Obesity: Weight loss and lifestyle changes encouraged. #13. SHANA: BIPAP nightly. #14. DVT prophylaxis: SCDs, Lovenox. #15. CODE status: Patient ELIJAH is her daughter and living will is currently in place. Discussed CODE status at length including difference between FULL code, DNR-CCA and DNR-CC status. Following discussions about the differences in these status, requested Full Code status. Advanced Care Planning Face to Face Time: 16 minutes. Charges/Coding Visit Charges Inpatient E&M: 90673 Init Hosp L3 Procedures Hospitalists Procedures: 22498 Advncd Care Plan 30 Min
[2022-02-25] MEDS: Pramipexole Di-HCl 1 MG Tablet 1.5 MG PO ×2 (03:18→21:50)
[2022-02-25 05:45] LABS: Absolute Lymphocyte Count 0.39 X10^3/uL (0.83-4.51); Absolute Neutrophil Count 11.8 X10^3/uL (2.0-7.7); Basophil# 0.03 X10^3/uL; Basophil% 0.2 % (0-1); Hematocrit 35.1 % (37-47); Hemoglobin 11.5 g/dL (12.0-15.0); Lymphocyte # 0.39 X10^3/ul (0.83-4.51); Lymphocyte % 3.2 % (19-41); Mean Corp Hgb Conc 32.8 g/dL (32-36); Mean Corpuscular Hgb 28.9 pg (27.0-32.0); Mean Corpuscular Volume 88.2 fL (81-99); Mean Platelet Vol. 10.2 fl (6.2-12.0); Monocyte# 0.06 X10^3/uL; Monocyte% 0.5 % (0-10); NRBC Flagged by Analyzer 0 % (0-5); Neutrophil % 95.5 % (47-70); POSITIVE DIFFERENTIAL YES; Platelet Count 291 K/mm3 (150-450); RBC Distribution Width CV 16.1 % (11.6-14.6); RBC Distribution Width SD 51.8 fl (35.1-43.9); Red Blood Count 3.98 M/mm3 (4.2-5.4); White Blood Count 12.4 K/mm3 (4.4-11.0)
[2022-02-25 06:09] LABS: Differential Indicated SCAN CRITERIA MET
[2022-02-25 06:29] LABS: ALB/GLOB Ratio 0.8 RATIO (0.9-2.4); AST(SGOT) 11 U/L (15-37); Alanine Aminotransfer ALT/SGPT 21 U/L (13-56); Albumin, Serum 2.9 g/dL (3.2-5.0); Alkaline Phosphatase 115 U/L (45-117); Anion Gap 11 (5-15); BUN 18 mg/dL (7-18); BUN/Creat Ratio 16.8 RATIO (10-20); Calcium,Total 8.6 mg/dL (8.5-10.1); Chloride 102 mmol/L (98-107); Creatinine, Serum 1.07 mg/dL (0.55-1.02); EST Glomerular Filtration Rate 53 mL/min (>60); Est Glom Filt Rate - Afr Amer 65 mL/min (>60); Estimated Creatinine Clearance 37.04 ml/min; Globulin 3.7 g/dL (2.2-4.2); Glucose 525 mg/dL (74-106); Potassium 4.2 mmol/L (3.5-5.1); Protein, Total 6.6 g/dL (6.4-8.2); Sodium Level 137 mmol/L (136-145)
[2022-02-25 06:44] LABS: Differential Comment SCANNED
[2022-02-25] MEDS: Insulin Lispro 100 UNIT/ML INSULN.PEN SC ×4 (06:53→21:49)
[2022-02-25 07:00] LABS: Bedside Glucose 413 mg/dL (74-106)
[2022-02-25] MEDS: Ipratropium/Albuterol Sulfate 3 ML AMPUL.NEB INHALATION ×4 (07:13→19:31)
[2022-02-25 07:33] LABS: Procalcitonin < 0.04 ng/mL (0.00-0.09)
[2022-02-25 07:57] LABS: Hemoglobin A1c 6.9 % (3.8-5.6)
[2022-02-25] MEDS: 0.9% Saline Lock 10 ML Syringe IV ×2 (08:00→14:51)
[2022-02-25] MEDS: Aspirin 81 MG TAB.CHEW PO (08:38)
[2022-02-25] MEDS: Furosemide 20 MG Tablet PO (08:38)
[2022-02-25] MEDS: Enoxaparin 40 MG/0.4 ML Syringe SC (08:38)
[2022-02-25] MEDS: Clopidogrel Bisulfate 75 MG Tablet PO (08:39)
[2022-02-25] MEDS: Insulin Glargine-YFGN 100 UNIT/ML Pen 20 UNIT SC (08:52)
--- NOTE | 2022-02-25 10:33 | PN.HOSP_ITS ---
Hospitalist Note 71-year-old female with a history of COPD. 2-1/2 L dependent at baseline presented with increasing shortness of breath especially with exertion. Had recent hospitalization at [facility] last week that lasted about 4 days. It was sent home on only a 2-day taper of prednisone and started having symptoms shortly after steroid burst was discontinued. Presented here early this morning with increasing dyspnea. States she is feeling better today about 60% from the time she came in. Also blood sugars are markedly elevated and were greater than 500 on lab this morning. A1c was obtained and found to be 6.9 so I suspect she is just supersensitive to steroids and may be she needs treatment for her blood sugars while she is on steroids. She also has not been watching her sugar intake. Likely ready for discharge tomorrow 02/26/2022.
[2022-02-25 11:40] LABS: Bedside Glucose 301 mg/dL (74-106)
[2022-02-25] MEDS: Sertraline 50 MG Tablet PO (11:40)
[2022-02-25 16:45] LABS: Bedside Glucose 255 mg/dL (74-106)
[2022-02-25] MEDS: traZODone 100 MG Tablet PO (21:50)
[2022-02-25] MEDS: Atorvastatin Calcium 80 MG Tablet PO (21:50)
[2022-02-25 22:55] LABS: Bedside Glucose 303 mg/dL (74-106)
[2022-02-26 02:30] VITALS: BP 157/82; PULSE 86; RESP 20; TEMP 36.4; O2SAT 95
[2022-02-26 06:50] VITALS: PULSE 78; RESP 22; O2SAT 92
[2022-02-26] MEDS: Ipratropium/Albuterol Sulfate 3 ML AMPUL.NEB INHALATION ×2 (06:50→10:45)
[2022-02-26 06:57] LABS: Basophil# 0.04 X10^3/uL; Basophil% 0.2 % (0-1); Hematocrit 37.3 % (37-47); Hemoglobin 11.9 g/dL (12.0-15.0); Lymphocyte % 4.4 % (19-41); Mean Corp Hgb Conc 31.9 g/dL (32-36); Mean Corpuscular Hgb 28.6 pg (27.0-32.0); Mean Corpuscular Volume 89.7 fL (81-99); Mean Platelet Vol. 10.3 fl (6.2-12.0); Monocyte# 0.65 X10^3/uL; Monocyte% 2.8 % (0-10); NRBC Flagged by Analyzer 0 % (0-5); Neutrophil # 21.01 X10^3/uL (2.7-7.7); Neutrophil % 91.5 % (47-70); POSITIVE DIFFERENTIAL YES; Platelet Count 333 K/mm3 (150-450); RBC Distribution Width CV 16.1 % (11.6-14.6); RBC Distribution Width SD 52.7 fl (35.1-43.9); Red Blood Count 4.16 M/mm3 (4.2-5.4)
[2022-02-26] MEDS: Insulin Lispro 100 UNIT/ML INSULN.PEN SC ×2 (06:59→11:24)
[2022-02-26 07:06] LABS: Differential Indicated SCAN CRITERIA MET
[2022-02-26 07:15] LABS: Bedside Glucose 256 mg/dL (74-106)
[2022-02-26 07:30] LABS: Anion Gap 6 (5-15); BUN 23 mg/dL (7-18); BUN/Creat Ratio 28.9 RATIO (10-20); Calcium,Total 9.1 mg/dL (8.5-10.1); Chloride 103 mmol/L (98-107); EST Glomerular Filtration Rate 75 mL/min (>60); Est Glom Filt Rate - Afr Amer 91 mL/min (>60); Estimated Creatinine Clearance 49.53 ml/min; Glucose 239 mg/dL (74-106); Potassium 4.6 mmol/L (3.5-5.1); Sodium Level 135 mmol/L (136-145)
[2022-02-26] MEDS: Enoxaparin 40 MG/0.4 ML Syringe SC (08:31)
[2022-02-26] MEDS: Clopidogrel Bisulfate 75 MG Tablet PO (08:32)
[2022-02-26] MEDS: Sertraline 50 MG Tablet PO (08:32)
[2022-02-26] MEDS: Aspirin 81 MG TAB.CHEW PO (08:32)
[2022-02-26] MEDS: Furosemide 20 MG Tablet PO (08:32)
[2022-02-26] MEDS: Insulin Glargine-YFGN 100 UNIT/ML Pen 30 UNIT SC (08:33)
[2022-02-26 08:40] VITALS: BP 157/72; PULSE 81; RESP 18; TEMP 36.4; O2SAT 99
[2022-02-26 09:17] VITALS: O2SAT 93; O2SAT 95
--- NOTE | 2022-02-26 09:31 | DS.PCM_ITS ---
Providers Date of Admission: 02/25/22 Date of Discharge: 02/26/22 Primary Care Physician: Dr. Heladio Edwards MD Reason For Visit: COPD EXACERBATION, ACUTE HYPOXIA ON CHRONIC Diagnosis Discharge Diagnosis (1) COPD exacerbation: Status: Chronic Code(s): J44.1 - Chronic obstructive pulmonary disease with (acute) exacerbation Medications at Discharge Home Medications pramipexole 1.5 mg tablet 1.5 mg PO QHS restless legs 06/12/14 trazodone 100 mg tablet 100 mg PO QHS sleep 06/12/14 ropinirole 2 mg tablet 2 mg PO QHS restless legs 10/20/15 umeclidinium 62.5 mcg/actuation blister powder for inhalation 1 puff inhalation DAILY breathing 08/29/20 furosemide 20 mg tablet 20 mg PO DAILY water pill 03/17/21 calcium carbonate 250 mg-vitamin D3 3.125 mcg (125 unit) tablet (Oyster Shell Calcium-Vitamin D3) 1 tab PO DAILY 04/19/21 ibandronate 150 mg tablet 150 mg PO QMONTH 04/19/21 atorvastatin 80 mg tablet 80 mg PO QHS cholesterol 10/20/21 clopidogrel 75 mg tablet 75 mg PO DAILY blood thinner 10/20/21 fluticasone furoate 100 mcg-vilanterol 25 mcg/dose inhalation powder (Breo Ellip ta) 1 inh inhalation DAILY sob 10/20/21 aspirin 81 mg chewable tablet 81 mg PO BREAKFAST 30 days #30 tabs 10/27/21 sertraline 50 mg tablet 50 mg PO DAILY anxiety 02/25/22 albuterol sulfate 90 mcg/actuation aerosol inhaler 2 puff inhalation Q4H PRN shortness of breath or wheezing #8.5 grams 02/26/22 insulin glargine-yfgn 100 unit/mL (3 mL) subcutaneous pen 30 unit (0.3 mL) subcut DAILY 30 days #9 mL 02/26/22 lancets (Lancets,Ultra Thin) #200 ea 02/26/22 pen needle, diabetic 31 gauge x 1/6 #100 ea 02/26/22 prednisone 10 mg tablet See Taper PO DAILY #30 tabs 02/26/22 Hospital Course Operations None Procedures None Summary of Care Provided Minutes Spent on Discharge: 45 Hospital Course: 71 y/o with PMHx of CAD s/p stent, H/o VTE (DVT, yanira PE), h/o lung CA s/p lobectomy, SHANA, Type 2 DM, chronic hypoxic respiratory failure on 2.5 L of oxygen, who comes in progressive SOB and palpitations. Patient was recently discharged from [facility] with 2 days of prednisone. Patient has since completed it. She however was progressively short of breath and presented to the emergency department. Her vitals in the ED were stable except for oxygen saturation of 84% on exertion. She improved to 98% on 2.5 L of oxygen. Her BNP was 17, WBC count was 11.6. Her rapid COVID antigen test was negative. Chest x-ray showed no acute cardiopulmonary changes. Patient was admitted to the [facility] floor and managed as acute COPD exacerbation. She was managed on IV Solu-Medrol, breathing treatment. She had elevations in her blood sugars. HbA1c was 6.9. She was started on Lantus with improvement in blood sugars. She continued to improve and was on her home oxygen level of 2.5 L at the time of discharge. She was discharged on a prednisone taper. She was discharged home on Lantus, lancets, insulin needles. She knows to keep a log of her blood sugars. She will follow-up with her primary care doctor within 1 week. Physical Exam Narrative Physical exam: General: Alert, Oriented x3, on 2.5 L of oxygen, not pale, not in distress HEENT: Atraumatic Oral: Moist Mucosa Neck: Supple Lungs: Diminished to auscultation, no wheezes heard Cardiovascular: HS I+II, regular, no murmurs Abdomen: Bowel Sounds Present, Soft, Non Tender Extremities: No edema Skin: No rashes, No breakdown Neurological: Grossly intact Psych/Mental Status: Appropriate Weight / BMI Weight Weight: 90.1 kg Body Mass Index (BMI) 34.6 ABG / Lab / Microbiology Data Result Diagrams: 02/26/22 06:21 02/26/22 06:21 Laboratory: Laboratory Results - last 24 hr 02/25/22 11:13: POC Glucose 301 H 02/25/22 16:34: POC Glucose 255 H 02/25/22 21:48: POC Glucose 303 H 02/26/22 06:21: WBC 23.0 H, RBC 4.16 L, Hgb 11.9 L, Hct 37.3, MCV 89.7, MCH 28.6, MCHC 31.9 L, RDW Std Deviation 52.7 H, RDW Coeff of Doretha 16.1 H, Plt Count 333, MPV 10.3, Immature Gran % (Auto) 1.100 H, Neut % (Auto) 91.5 H, Lymph % (Auto) 4.4 L, [facility] % (Auto) 2.8, Eos % (Auto) 0.0, Baso % (Auto) 0.2, Absolute Neuts (auto) 21.0 H, Absolute Lymphs (auto) 1.00, Nucleated RBC % 0 02/26/22 06:21: Sodium 135 L, Potassium 4.6, Chloride 103, Carbon Dioxide 26.0, Anion Gap 6, BUN 23 H, Creatinine 0.80, Estim Creat Clear Calc 49.53, Est GFR (MDRD) Af Amer 91, Est GFR (MDRD) Non-Af 75, BUN/Creatinine Ratio 28.9 H, Glucose 239 H, Calcium 9.1 02/26/22 06:57: POC Glucose 256 H Microbiology: Microbiology 02/25/22 01:26 Mucosa - Nasopharyngeal Respiratory Panel (PCR) - Final 02/24/22 22:11 Nasal Secretion SARS-CoV-2 & FLU Antigen (Rapid) - Final D/C Instructions Discharge Diet: Low fat / Low cholesterol, 2000 mg Sodium Diet and Carb Control Diet Meaningful Use Info Meaningful Use Diagnoses (Choose all that apply): None applicable Discharge Plan Admission Admit Date/Time: 02/25/22 01:14 Primary Reason for Your Visit: Acute COPD exacerbation Attending Provider: Rachael Terrell Primary Care Provider: Heladio Edwards Consulting Providers: Georgie Ashley ; Argenis Salazar Instructions Additional Instructions / Restrictions: Take note of changes to your medication. Noted that you are on insulin because of your prednisone Continue to monitor your blood sugars 3 times a day. Follow-up with your primary care doctor within 1 week with your blood sugar log Discharge Orders/Prescriptions Prescriptions: New insulin glargine-yfgn 100 unit/mL (3 mL) Insulin Pen 30 unit subcut DAILY 30 Days Qty: 9 0RF prednisone 10 mg tablet See Taper PO DAILY Qty: 30 0RF Taper: Prednisone Taper 40 mg WITH BREAKFAST for 3 Days and 0 Hour 30 mg WITH BREAKFAST for 3 Days and 0 Hour 20 mg WITH BREAKFAST for 3 Days and 0 Hour 10 mg WITH BREAKFAST for 3 Days and 0 Hour albuterol sulfate 90 mcg/actuation HFA aerosol inhaler 2 puff inhalation Q4H PRN (Reason: shortness of breath or wheezing) Qty: 8.5 0RF (DME) lancets [Lancets,Ultra Thin] Misc See Rx Instructions .Route Qty: 200 0RF Rx Instructions: As directed (DME) pen needle, diabetic 31 gauge x 1/6 needle See Rx Instructions .Route Qty: 100 0RF Rx Instructions: for insulin administration daily Continued umeclidinium 62.5 mcg/actuation blister with device 1 puff INHALATION DAILY trazodone 100 MG tablet 100 mg PO QHS Label Comments: sleep pramipexole 1.5 MG tablet 1.5 mg PO QHS Label Comments: parkinson's disease/restless legs ropinirole 2 MG tablet 2 mg PO QHS Label Comments: parkinson's disease/restless leg furosemide 20 mg tablet 20 mg PO DAILY ibandronate 150 mg tablet 150 mg PO QMONTH calcium carbonate-vitamin D3 [Oyster Shell Calcium-Vit D3] 250-125 mg-unit tablet 1 tab PO DAILY atorvastatin 80 mg tablet 80 mg PO QHS Label Comments: Take 1 tablet by mouth at bedtime clopidogrel 75 mg tablet 75 mg PO DAILY Label Comments: TAKE ONE TABLET BY MOUTH DAILY fluticasone furoate-vilanterol [Breo Ellipta] 100-25 mcg/dose blister with device 1 inh INHALATION DAILY Label Comments: inhale 1 inhalation as instructed once daily aspirin 81 mg Tablet,Chewable 81 mg PO BREAKFAST 30 Days Qty: 30 0RF sertraline 50 mg tablet 50 mg PO DAILY Label Comments: TAKE ONE TABLET BY MOUTH DAILY Referrals / Follow Up: Heladio Edwards MD [Primary Care Provider] - In 1 Week Disposition Disposition (needs filled in before D/C Order can be placed): Home, Self Care Charges/Coding Visit Charges Inpatient E&M: 67535 Disch Hosp
[2022-02-26 10:45] VITALS: RESP 20
[2022-02-26 11:25] LABS: Bedside Glucose 304 mg/dL (74-106)
== END 2022-02-26 13:50 | disposition home or self-care (01) | DRG 191 ==
LOC: ED 02-25 01:17 → MS3 02-25 03:47
PROVIDERS: Internal Medicine; Admitting Provider Family Medicine; Emergency Provider Emergency Medicine; PCP Family Medicine; Visit Provider Internal Medicine
DX: J44.1 Chronic obstructive pulmonary disease with (acute) exacerbation (principal); J96.11 Chronic respiratory failure with hypoxia; E11.22 Type 2 diabetes mellitus with diabetic chronic kidney disease; N18.31 Chronic kidney disease, stage 3a; Z79.4 Long term (current) use of insulin; E11.65 Type 2 diabetes mellitus with hyperglycemia; G25.81 Restless legs syndrome; E78.5 Hyperlipidemia, unspecified; I12.9 Hypertensive chronic kidney disease with stage 1 through stage 4 chronic kidney disease, or unspecified chronic kidney disease; I25.10 Atherosclerotic heart disease of native coronary artery without angina pectoris; G47.33 Obstructive sleep apnea (adult) (pediatric); I25.5 Ischemic cardiomyopathy; T38.0X5A Adverse effect of glucocorticoids and synthetic analogues, initial encounter; G89.4 Chronic pain syndrome; F32.A Depression, unspecified; E66.9 Obesity, unspecified; Z68.35 Body mass index [BMI] 35.0-35.9, adult; Z66 Do not resuscitate; Z95.5 Presence of coronary angioplasty implant and graft; Z99.81 Dependence on supplemental oxygen; Z79.02 Long term (current) use of antithrombotics/antiplatelets; Z79.82 Long term (current) use of aspirin; Z79.83 Long term (current) use of bisphosphonates; Z79.899 Other long term (current) drug therapy; Z85.118 Personal history of other malignant neoplasm of bronchus and lung; Z86.711 Personal history of pulmonary embolism; Z86.718 Personal history of other venous thrombosis and embolism; Z87.891 Personal history of nicotine dependence
CPT/HCPCS: 36415; 71045; 80048; 80053; 82962; 83036; 83880; 84145; 84484; 85025; 87428; 87633; 93005; 94640; 94667; 94668; 99251; 99284; A4216; G0463

== ENCOUNTER 2022-03-15 15:55 | Inpatient (IN) | payer MEDICARE, MEDICAID, SELFPAY ==
[2022-03-15] VITALS (11 sets, daily range): BP systolic 89–126; BP diastolic 48–93; PULSE 84–103; RESP 16–26; TEMP 36.4–36.7; O2SAT 95–100; BMI 23.9; BMI 35.0
--- NOTE | 2022-03-15 16:18 | EKG12_ITS ---
Test Reason : SOB Blood Pressure : / mmHG Vent. Rate : 089 BPM Atrial Rate : 089 BPM P-R Int : 160 ms QRS Dur : 082 ms QT Int : 362 ms P-R-T Axes : 000 050 058 degrees QTc Int : 440 ms Normal sinus rhythm with sinus arrhythmia Normal ECG Confirmed by GOSIA RUSHING, JOLLY ([id number]), content editor PAUL ELLIOTT ([id number]) on 03/16/2022 8:21:24 AM Referred By: LAITH/PEGGY Confirmed By:JOLLY ELISE MD
--- NOTE | 2022-03-15 16:21 | ED.VIS.DYS ---
HPI History of Present Illness Chief Complaint: Shortness of Breath Informant: patient Onset/Context/Timing Onset: Days (3) Context: gradual and onset Timing: Continuous Quality: Positive for Dyspnea on exertion and Wheezing Current Severity: Severe Maximum Severity: Severe Worsened by: Exertion Relieved by: Rest, Oxygen and Albuterol (Only a little, and temporarily) Associated Symptoms Negative for cough Chest Pain: Positive for None Narrative Narrative: Patient presenting with 2 or 3 days gradually worsening dyspnea especially when she walks. She has a history of chronic COPD on home oxygen 2.5 L, and additionally has a history of pulmonary embolus, she is no longer anticoagulated that was remote and she now takes clopidogrel and has history of cardiac stents. She was admitted to the hospital here around 2 weeks ago for COPD exacerbation, she describes a similar symptoms now that she did then when I saw her in the emergency department, she was admitted and stayed for 2 or 3 days after which she was discharged after improving on prednisone on a extended taper that she did for another 10 days outpatient, she finished that about 5-6 days ago. Recently she has developed swelling in both of her legs as well, simultaneously. She states it started when she was in the hospital here. She denies any coughing, chest discomfort, fevers or chills, mostly just respiratory symptoms. When she does albuterol at home it does help temporarily but not very much. She saw her pulmonology caretakers today, which was her first visit post-hospitalization, and she had talked with her PCP with whom she has an appointment tomorrow, both recommended evaluating her for recurrent pulmonary embolus and since this was unable to be obtained stat as an outpatient, it was recommended that she come to the emergency department. [facility] Medical History Asthma BiPAP (biphasic positive airway pressure) dependence Chronic pain Chronic respiratory failure with hypoxia Congestive heart failure (CHF) COPD (chronic obstructive pulmonary disease) Coronary artery disease Diabetes DVT (deep venous thrombosis) Former smoker Knee arthropathy Lung cancer Myocardial infarct On home oxygen therapy Osteoporosis Pulmonary embolism Tobacco abuse Home Medications pramipexole 1.5 mg tablet 1.5 mg PO QHS restless legs 06/12/14 [History Last Taken 10/19/21] trazodone 100 mg tablet 100 mg PO QHS sleep 06/12/14 [History Last Taken 10/19/21] ropinirole 2 mg tablet 2 mg PO QHS restless legs 10/20/15 [History Last Taken 10/19/21] umeclidinium 62.5 mcg/actuation blister powder for inhalation 1 puff inhalation DAILY breathing 08/29/20 [History Last Taken 10/20/21] furosemide 20 mg tablet 20 mg PO DAILY water pill 03/17/21 [History Last Taken 10/20/21] ibandronate 150 mg tablet 150 mg PO QMONTH 04/19/21 [History Last Taken 09/27/21] atorvastatin 80 mg tablet 80 mg PO QHS cholesterol 10/20/21 [History Last Taken 10/19/21] clopidogrel 75 mg tablet 75 mg PO DAILY blood thinner 10/20/21 [History Last Taken 10/20/21] fluticasone furoate 100 mcg-vilanterol 25 mcg/dose inhalation powder (Breo Ellipta) 1 inh inhalation DAILY sob 10/20/21 [History Last Taken 10/20/21] aspirin 81 mg chewable tablet 81 mg PO BREAKFAST 30 days #30 tabs 10/27/21 [Rx Last Taken Unknown] sertraline 50 mg tablet 50 mg PO DAILY anxiety 02/25/22 [History Last Taken Unknown] albuterol sulfate 90 mcg/actuation aerosol inhaler 2 puff inhalation Q4H PRN shortness of breath or wheezing #8.5 grams 02/26/22 [Rx Last Taken Unknown] lancets (Lancets,Ultra Thin) #200 ea 02/26/22 [Rx Last Taken Unknown] pen needle, diabetic 31 gauge x 1/6 #100 ea 02/26/22 [Rx Last Taken Unknown] Allergy/AdvReac Type Severity Reaction Status Date / Time bupropion HCl Allergy Hives Verified 02/24/22 21:44 [From Wellbutrin] gabapentin [From Neurontin] Allergy Hives Verified 02/24/22 21:44 moxifloxacin HCl Allergy Hives Verified 02/24/22 21:44 [From Avelox] Family History Mother COPD (chronic obstructive pulmonary disease) Cancer Diabetes Heart disease Father COPD (chronic obstructive pulmonary disease) Cancer Diabetes Heart disease Surgical History H/O hand surgery H/O heart artery stent H/O knee surgery H/O: hysterectomy History of back surgery Status post lobectomy of lung Social History household members: none Smoking Status: Former smoker how long ago did patient quit smoking: Quit tobacco use ~ 3 months prior 11/2021. alcohol intake: never substance use type: does not use ROS ROS ED Constitutional Constitutional ED: Denies chills or fever(s) Eyes Eyes: Denies change in vision or diplopia ENT ENT ED: Denies rhinorrhea or sore throat Cardiovascular Cardiovascular: Reports leg edema; Denies chest pain, orthopnea or palpitations Respiratory/Chest Respiratory/Chest: Reports dyspnea, dyspnea on exertion and wheezing; Denies cough or orthopnea Gastrointestinal Gastrointestinal: Denies abdominal pain, diarrhea, nausea or vomiting Genitourinary Genitourinary ED: Denies dysuria or hematuria Musculoskeletal Musculoskeletal: Denies back pain or neck pain Integumentary Reports other Details: Area on right lower leg medially that is usually abnormally red, a little more prominent now that her legs are swollen; legs are sore generally where they are swollen up to about the knees, but this area is not more painful than the other areas ; Denies abscess or rash Neurologic Neurologic: Denies headache(s), paresthesias or weakness Psychiatric Psychiatric: Denies anxiety or suicidal thoughts Hematologic/Lymphatic Hematologic/Lymphatic: Reports easy bleeding and easy bruising EXAM Physical Exam Const Vital Signs: 03/15/22 15:56 03/15/22 16:03 03/15/22 16:05 Temperature 98.1 F Temperature Source Temporal Pulse Rate 103 H 93 Respiratory Rate 24 H 24 H Respiratory Effort Short of Breath Labored Respiratory Pattern Tachypnea Blood Pressure 89/48 L 126/60 H Blood Pressure Mean 61 82 Pulse Ox 96 97 Oxygen Delivery Method Room Air Nasal Cannula Oxygen Flow Rate (L/min) 3 03/15/22 16:26 03/15/22 16:26 03/15/22 16:26 Temperature Temperature Source Pulse Rate 84 Respiratory Rate 16 17 Respiratory Effort Respiratory Pattern Blood Pressure Blood Pressure Mean Pulse Ox 100 100 Oxygen Delivery Method Nasal Cannula Nasal Cannula Oxygen Flow Rate (L/min) 3 3 03/15/22 17:22 03/15/22 17:28 03/15/22 17:38 Temperature 97.9 F Temperature Source Temporal Pulse Rate 95 92 Respiratory Rate 19 H 21 H Respiratory Effort Respiratory Pattern Blood Pressure 112/49 L Blood Pressure Mean 70 Pulse Ox 100 100 Oxygen Delivery Method Nasal Cannula Nasal Cannula Oxygen Flow Rate (L/min) 3 2.5 03/15/22 19:00 Temperature Temperature Source Pulse Rate Respiratory Rate Respiratory Effort Respiratory Pattern Blood Pressure Blood Pressure Mean Pulse Ox 100 Oxygen Delivery Method Nasal Cannula Oxygen Flow Rate (L/min) 2.5 Positive well nourished and well developed General Appearance ED: well developed and NAD HEENT Reports moist mucous membranes normocephalic and atraumatic Eyes PERRL and EOMs intact bilaterally Neck full ROM, supple and no JVD Resp Resp Narrative: Mildly tachypnea, able to speak in 10-15 word sentences. Bilateral symmetric expiratory wheezes. Trachea midline. Equal breath sounds are bilaterally which are diminished diffusely. Cardio regular rate, regular rhythm and no murmurs GI non-tender and non-distended Auscultation: normoactive bowel sounds Palpation: soft Back/Spine no CVA tenderness General Back: other FROM Extremity normal to inspection Extremity Narrative: No calf tenderness or palpable cords. General Extremety ED: Yes edema; Negative for pulses abnormal or tenderness General Extremity: edema bilateral lower extremity Details: moderate (Symmetric); Negative for pulses abnormal Neuro oriented x3, CN's II-XII intact bilaterally and no sensory deficits noted Sensorium / Orientation: awake and alert Motor Exam: strength 5/5 throughout Skin no rashes or lesions noted and no wounds MDM MDM MDM Narrative Medical decision making narrative: Work-up is consistent with a COPD exacerbation as it was 2 weeks ago when she was here for similar symptoms. Her D-dimer is within normal limits ruling out DVT and pulmonary embolus, her troponin is within normal limits, as is her BNP ruling out acute decompensated congestive heart failure as cause for symptoms. After a set of aerosol treatments, she was still feeling dyspneic although satting well, feels like she is significantly functionally limited at home with regards to ADLs, she lives alone. Her daughter is with her and concern. Both of them are asking for temporary placement to some type of short-term rehab. I am not sure that she will necessarily qualify for that, but we did ambulate her on her home oxygen and she did become hypoxic 81% very quickly with dyspnea after about 10 feet. She recovered after resting. Will discuss with hospitalist for admission. I advised the patient first that after discharge from the hospital she will need to follow-up with her coding auditor, she may do better with less COPD exacerbations if she changed her maintenance medication regimen for her COPD. Lab Data Attestation: I reviewed the patient's lab results. Labs: Laboratory Results - last 24 hr 03/15/22 03/15/22 03/15/22 16:10 16:10 16:10 WBC 10.1 RBC 4.44 Hgb 12.8 Hct 39.7 MCV 89.4 MCH 28.8 MCHC 32.2 RDW Std Deviation 53.5 H RDW Coeff of Doretha 16.4 H Plt Count 292 MPV 9.8 Immature Gran % (Auto) 0.500 Neut % (Auto) 69.0 Lymph % (Auto) 22.9 Ware % (Auto) 5.5 Eos % (Auto) 1.8 Baso % (Auto) 0.3 Absolute Neuts (auto) 7.0 Absolute Lymphs (auto) 2.31 Nucleated RBC % 0 D-Dimer Quant (PE/DVT) 0.36 Sodium 140 Potassium 4.5 Chloride 105 Carbon Dioxide 28.0 Anion Gap 7 BUN 16 Creatinine 0.83 Estim Creat Clear Calc 49.94 Est GFR (MDRD) Af Amer 87 Est GFR (MDRD) Non-Af 72 BUN/Creatinine Ratio 19.3 Glucose 204 H Calcium 9.1 Troponin I High Sens 8 B-Natriuretic Peptide 03/15/22 16:10 WBC RBC Hgb Hct MCV MCH MCHC RDW Std Deviation RDW Coeff of Doretha Plt Count MPV Immature Gran % (Auto) Neut % (Auto) Lymph % (Auto) Ware % (Auto) Eos % (Auto) Baso % (Auto) Absolute Neuts (auto) Absolute Lymphs (auto) Nucleated RBC % D-Dimer Quant (PE/DVT) Sodium Potassium Chloride Carbon Dioxide Anion Gap BUN Creatinine Estim Creat Clear Calc Est GFR (MDRD) Af Amer Est GFR (MDRD) Non-Af BUN/Creatinine Ratio Glucose Calcium Troponin I High Sens B-Natriuretic Peptide 24.0 Radiography Chest X-Ray - ED: 1 View, Read by ED Physician, No Acute Disease, Chronic Changes and No Infiltrates Diagnostic Testing: Clinical Impression(s) from Imaging Studies Chest X-Ray 03/15/22 16:29 IMPRESSION: No acute cardiopulmonary abnormality. COPD. Electronically Signed: Blaine Shaikh MD at 16:57 EDT , Rhythm Strip Rhythm Strip: Sinus Rhythm Rate: 89 Ectopy: None EKG Initial EKG: Attestation: I personally reviewed and interpreted this EKG as follows: Interpretation: Sinus Rhythm and No Acute Injury Pattern Prior EKG tracings: available for review Prior: Unchanged Discharge Plan Dx/Rx/DC Orders Clinical Impression: Acute exacerbation of chronic obstructive pulmonary disease, Hypoxemia, Acute respiratory insufficiency, Bilateral lower extremity edema Disposition Disposition: Acute Care Hospital [facility]
[2022-03-15] MEDS: Ipratropium/Albuterol Sulfate 3 ML AMPUL.NEB INHALATION (16:25)
--- NOTE | 2022-03-15 16:29 | RAD_ITS ---
EXAM: XR CHEST, 1 VIEW CLINICAL INDICATION: dyspnea TECHNIQUE: Frontal view of the chest. This report was created using [employer] report generation technology. COMPARISON: XR Chest dated 02/24/2022 FINDINGS: LUNGS AND PLEURAL SPACES: Hyperinflation suggesting emphysema. No pneumothorax. No effusion. HEART: Unremarkable. Normal heart size. MEDIASTINUM: Central airways and mediastinal contour are unremarkable. BONES/JOINTS: Vertebroplasty changes noted at the midthoracic level. SOFT TISSUES: Unremarkable. RAD/Chest 1 View (Portable) IMPRESSION: No acute cardiopulmonary abnormality. COPD. Electronically Signed: Blaine Shaikh MD at 16:57 EDT ,
[2022-03-15] MEDS: Albuterol 2.5 MG/3 ML VIAL.NEB. INHALATION ×2 (16:30→17:26)
[2022-03-15 16:34] LABS: Absolute Lymphocyte Count 2.31 X10^3/uL (0.83-4.51); Basophil# 0.03 X10^3/uL; Basophil% 0.3 % (0-1); Eosinophil# 0.18 X10^3/uL; Eosinophils% 1.8 % (0-5); Hematocrit 39.7 % (37-47); Hemoglobin 12.8 g/dL (12.0-15.0); Lymphocyte # 2.31 X10^3/ul (0.83-4.51); Lymphocyte % 22.9 % (19-41); Mean Corp Hgb Conc 32.2 g/dL (32-36); Mean Corpuscular Hgb 28.8 pg (27.0-32.0); Mean Corpuscular Volume 89.4 fL (81-99); Mean Platelet Vol. 9.8 fl (6.2-12.0); Monocyte# 0.55 X10^3/uL; Monocyte% 5.5 % (0-10); NRBC Flagged by Analyzer 0 % (0-5); Neutrophil # 6.97 X10^3/uL (2.7-7.7); Platelet Count 292 K/mm3 (150-450); RBC Distribution Width CV 16.4 % (11.6-14.6); RBC Distribution Width SD 53.5 fl (35.1-43.9); Red Blood Count 4.44 M/mm3 (4.2-5.4); White Blood Count 10.1 K/mm3 (4.4-11.0)
[2022-03-15 17:08] LABS: D-Dimer Quantitative (DVT/PE) 0.36 FEU/ug/m (0.27-0.49)
[2022-03-15 17:15] LABS: BUN 16 mg/dL (7-18); Glucose 204 mg/dL (74-106)
[2022-03-15 17:16] LABS: Anion Gap 7 (5-15); BUN/Creat Ratio 19.3 RATIO (10-20); Calcium,Total 9.1 mg/dL (8.5-10.1); Chloride 105 mmol/L (98-107); Creatinine, Serum 0.83 mg/dL (0.55-1.02); EST Glomerular Filtration Rate 72 mL/min (>60); Est Glom Filt Rate - Afr Amer 87 mL/min (>60); Estimated Creatinine Clearance 49.94 ml/min; Potassium 4.5 mmol/L (3.5-5.1); Sodium Level 140 mmol/L (136-145); Troponin-I HS 8 pg/mL (3.0-54.0)
[2022-03-15] MEDS: MethylPREDNISolone 125 MG/2 ML Vial IV (18:54)
--- NOTE | 2022-03-15 19:19 | HP.PCM.HOS_ITS ---
HPI - General General Date of Admission: 03/15/22 Date of Service: 03/15/22 Chief Complaint: SOB HPI Narrative AVE ANNE, is a 71 F with ?CKD stage IIIa, RLS, Anxiety and Depression, CAD s/p PCI, Hx VTE (DVT, BL PE), Hx Lung CA s/p lobectomy, Chronic pain syndrome, Obesity, Diabetes mellitus type II, SHANA, Tobacco use, COPD/Asthma w/ chronic hypoxia respiratory failure (2.5L) and on home trilogy? who presents to the emergency department with progressively worsening shortness of breath that started when she was discharged from the hospital on February 26, 2022. Her symptoms worsen when she completed the course of steroids given after her recent discharge. Her shortness of breath is at rest and it increases markedly with exertion. She reports a new cough productive for whitish thick abbott sputum. She reports wheezes. She reports fatigue. She reports bilateral leg swelling and erythema of her legs. Patient and family is hoping that patient get some short course of rehabilitation post hospitalization. At the emergency department patient was ambulated on her baseline home oxygen and her oxygen saturation dropped to 81%. On room air oxygen saturation was appropriate on baseline oxygen. She denies fever or anorexia. [facility] Medical History Asthma BiPAP (biphasic positive airway pressure) dependence Chronic pain Chronic respiratory failure with hypoxia Congestive heart failure (CHF) COPD (chronic obstructive pulmonary disease) Coronary artery disease Diabetes DVT (deep venous thrombosis) Former smoker Knee arthropathy Lung cancer Myocardial infarct On home oxygen therapy Osteoporosis Pulmonary embolism Tobacco abuse Home Medications pramipexole 1.5 mg tablet 1.5 mg PO QHS restless legs 06/12/14 [History Last Taken 03/14/22] trazodone 100 mg tablet 100 mg PO QHS sleep 06/12/14 [History Last Taken 03/14/22] ropinirole 2 mg tablet 2 mg PO QHS restless legs 10/20/15 [History Last Taken 03/14/22] umeclidinium 62.5 mcg/actuation blister powder for inhalation 1 puff inhalation DAILY breathing 08/29/20 [History Last Taken 03/15/22] furosemide 20 mg tablet 20 mg PO DAILY water pill 03/17/21 [History Last Taken 03/15/22] ibandronate 150 mg tablet 150 mg PO QMONTH 04/19/21 [History Last Taken 09/27/21] atorvastatin 80 mg tablet 80 mg PO QHS cholesterol 10/20/21 [History Last Taken 03/14/22] clopidogrel 75 mg tablet 75 mg PO DAILY blood thinner 10/20/21 [History Last Taken 03/15/22] fluticasone furoate 100 mcg-vilanterol 25 mcg/dose inhalation powder (Breo E llipta) 1 inh inhalation DAILY sob 10/20/21 [History Last Taken 03/15/22] aspirin 81 mg chewable tablet 81 mg PO BREAKFAST 30 days #30 tabs 10/27/21 [Rx Last Taken 03/15/22] sertraline 50 mg tablet 50 mg PO DAILY anxiety 02/25/22 [History Last Taken 03/15/22] albuterol sulfate 90 mcg/actuation aerosol inhaler 2 puff inhalation Q4H PRN shortness of breath or wheezing #8.5 grams 02/26/22 [Rx Last Taken 03/15/22] lancets (Lancets,Ultra Thin) #200 ea 02/26/22 [Rx Last Taken Unknown] pen needle, diabetic 31 gauge x 1/6 #100 ea 02/26/22 [Rx Last Taken Unknown] Allergy/AdvReac Type Severity Reaction Status Date / Time bupropion HCl Allergy Hives Verified 02/24/22 21:44 [From Wellbutrin] gabapentin [From Neurontin] Allergy Hives Verified 02/24/22 21:44 moxifloxacin HCl Allergy Hives Verified 02/24/22 21:44 [From Avelox] Family History Mother COPD (chronic obstructive pulmonary disease) Cancer Diabetes Heart disease Father COPD (chronic obstructive pulmonary disease) Cancer Diabetes Heart disease Surgical History H/O hand surgery H/O heart artery stent H/O knee surgery H/O: hysterectomy History of back surgery Status post lobectomy of lung Social History household members: none Smoking Status: Former smoker how long ago did patient quit smoking: Quit tobacco use ~ 3 months prior 11/2021. alcohol intake: never substance use type: does not use ROS ROS Narrative Pertinent positives and pertinent negatives as noted in HPI. All other systems were reviewed and are negative. Vital Signs Vital Signs Vital Signs: 03/15/22 15:56 03/15/22 16:03 03/15/22 16:05 Temperature 98.1 F Temperature Source Temporal Pulse Rate 103 H 93 Respiratory Rate 24 H 24 H Respiratory Effort Short of Breath Labored Respiratory Pattern Tachypnea Blood Pressure 89/48 L 126/60 H Blood Pressure Mean 61 82 Pulse Ox 96 97 Oxygen Delivery Method Room Air Nasal Cannula Oxygen Flow Rate (L/min) 3 03/15/22 16:26 03/15/22 16:26 03/15/22 16:26 Temperature Temperature Source Pulse Rate 84 Respiratory Rate 16 17 Respiratory Effort Respiratory Pattern Blood Pressure Blood Pressure Mean Pulse Ox 100 100 Oxygen Delivery Method Nasal Cannula Nasal Cannula Oxygen Flow Rate (L/min) 3 3 03/15/22 17:22 03/15/22 17:28 03/15/22 17:38 Temperature 97.9 F Temperature Source Temporal Pulse Rate 95 92 Respiratory Rate 19 H 21 H Respiratory Effort Respiratory Pattern Blood Pressure 112/49 L Blood Pressure Mean 70 Pulse Ox 100 100 Oxygen Delivery Method Nasal Cannula Nasal Cannula Oxygen Flow Rate (L/min) 3 2.5 03/15/22 19:00 Temperature Temperature Source Pulse Rate Respiratory Rate Respiratory Effort Respiratory Pattern Blood Pressure Blood Pressure Mean Pulse Ox 100 Oxygen Delivery Method Nasal Cannula Oxygen Flow Rate (L/min) 2.5 Weight Weight: 61.235 kg Body Mass Index (BMI) 23.9 Physical Exam Narrative Physical exam: General: Well-nourished, well-developed. Head: Normocephalic, atraumatic, no tenderness Eyes: Vision is grossly intact. EOMI ENT, no trauma, moist mucous membranes, no rhinorrhea Neck: Nontender, full range of motion, no spinal tenderness, deformities, step- off CVS: Regular rate and rhythm. S1-S2 present. No murmur, gallop or rub. 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 Crackles and wheezes. chest wall nontender Abdomen: Soft, nontender, nondistended, normal bowel sounds, no masses : Deferred Back: Nontender, no CVA tenderness, no midline spinal tenderness, deformities, step-offs Extremities: Nontender full range of motion, no trauma Skin: Bilateral leg edema with erythema of bilateral legs right worse than left. Neuro: Alert, oriented, cranial nerves II through XII grossly intact. Psychiatry: Normal mood. Normal affect. Not depressed. Not anxious. Results Lab / Micro Data Result Diagrams: 03/15/22 16:10 03/15/22 16:10 Labs: Laboratory Results - last 24 hr 03/15/22 16:10: WBC 10.1, RBC 4.44, Hgb 12.8, Hct 39.7, MCV 89.4, MCH 28.8, MCHC 32.2, RDW Std Deviation 53.5 H, RDW Coeff of Doretha 16.4 H, Plt Count 292, MPV 9.8, Immature Gran % (Auto) 0.500, Neut % (Auto) 69.0, Lymph % (Auto) 22.9, Cook % (Auto) 5.5, Eos % (Auto) 1.8, Baso % (Auto) 0.3, Absolute Neuts (auto) 7.0, Absolute Lymphs (auto) 2.31, Nucleated RBC % 0 03/15/22 16:10: D-Dimer Quant (PE/DVT) 0.36 03/15/22 16:10: Sodium 140, Potassium 4.5, Chloride 105, Carbon Dioxide 28.0, Anion Gap 7, BUN 16, Creatinine 0.83, Estim Creat Clear Calc 49.94, Est GFR (MDRD) Af Amer 87, Est GFR (MDRD) Non-Af 72, BUN/Creatinine Ratio 19.3, Glucose 204 H, Calcium 9.1, Troponin I High Sens 8 03/15/22 16:10: B-Natriuretic Peptide 24.0 Micro: Microbiology 03/15/22 16:30 Nasal Secretion SARS-CoV-2 Antigen (Rapid) - Final Rhythm Strip Rhythm Strip: Sinus Rhythm Rate: 89 Ectopy: None Radiology Impression Chest X-Ray 03/15/22 16:29 IMPRESSION: No acute cardiopulmonary abnormality. COPD. Electronically Signed: Blaine Shaikh MD at 16:57 EDT Reading Location ID and State: [facility] / [place] Tel , Service support , Assessment & Plan Assessment/Plan (1) COPD exacerbation: (2) History of type 2 diabetes mellitus: (3) Bilateral lower extremity edema: PLAN: Plan Acute COPD exacerbation/Chronic Respiratory Failure CXR visualized and independently interpreted confirms no acute cardiopulmonary process Scheduled DuoNeb ordered Albuterol as needed Solu-Medrol IV ordered With New thick sputum antibiotics (Cefdinir) ordered Continue home oxygen and titrate as needed. Continue home Triology nightly and as needed. Mucinex ordered CBC showed normal white count. Monitor BMP and CBC Diabetes mellitus Patient with hyperglycemia on presentation Review of record showed her A1c on 02/26/2020 was 6.9 Monitor Accu-Cheks Correction scale insulin ordered. Bilateral extremity edema BNP on presentation was 24. D-dimer on presentation was normal at 0.36 Elevate bilateral lower legs. Andre wrap to bilateral legs. DVT prophylaxis Subcutaneous Lovenox ordered. Advance care planning: Discussed with patient and family advanced directives as well as CODE STATUS. Explained various CODE STATUS: FULL CODE, DNR CCA, DNR CCA with no intubation, and DNR CC- and what each meant. Patient elected to be a full code with CPR and intubation if warranted. Order was placed. Time spent on discussion 16 minutes. Power of masonry contractor of masonry contractor reportedly is daughter Camille Merchant; who was at the bedside. Per discussions patient will not want to remain on Ventilator for a long time. Charges/Coding Visit Charges Inpatient E&M: 01781 Init Hosp L3
[2022-03-15] MEDS: Cefdinir 300 MG Capsule PO (21:41)
[2022-03-15] MEDS: traZODone 100 MG Tablet PO (21:42)
[2022-03-15] MEDS: Pramipexole Di-HCl 0.5 MG Tablet 1.5 MG PO (21:42)
[2022-03-15] MEDS: Insulin Lispro 100 UNIT/ML INSULN.PEN SC (21:43)
[2022-03-15] MEDS: guaiFENesin 600 MG Tablet PO (21:47)
[2022-03-15] MEDS: Atorvastatin Calcium 80 MG Tablet PO (21:47)
[2022-03-15 22:20] LABS: Bedside Glucose 377 mg/dL (74-106)
[2022-03-16] VITALS (13 sets, daily range): BP systolic 125–145; BP diastolic 62–74; PULSE 76–88; RESP 16–22; TEMP 36.6–36.8; O2SAT 84–98
[2022-03-16 05:56] LABS: Absolute Lymphocyte Count 0.65 X10^3/uL (0.83-4.51); Absolute Neutrophil Count 6.6 X10^3/uL (2.0-7.7); Basophil# 0.01 X10^3/uL; Basophil% 0.1 % (0-1); Hematocrit 37.3 % (37-47); Hemoglobin 11.6 g/dL (12.0-15.0); Lymphocyte # 0.65 X10^3/ul (0.83-4.51); Lymphocyte % 8.8 % (19-41); Mean Corp Hgb Conc 31.1 g/dL (32-36); Mean Corpuscular Hgb 28.7 pg (27.0-32.0); Mean Corpuscular Volume 92.3 fL (81-99); Mean Platelet Vol. 10.1 fl (6.2-12.0); Monocyte# 0.08 X10^3/uL; Monocyte% 1.1 % (0-10); NRBC Flagged by Analyzer 0 % (0-5); Neutrophil # 6.56 X10^3/uL (2.7-7.7); Neutrophil % 89.2 % (47-70); Platelet Count 259 K/mm3 (150-450); RBC Distribution Width CV 16.2 % (11.6-14.6); RBC Distribution Width SD 55.1 fl (35.1-43.9); Red Blood Count 4.04 M/mm3 (4.2-5.4); White Blood Count 7.4 K/mm3 (4.4-11.0)
[2022-03-16 06:33] LABS: Anion Gap 5 (5-15); BUN 15 mg/dL (7-18); Calcium,Total 8.8 mg/dL (8.5-10.1); Chloride 108 mmol/L (98-107); Creatinine, Serum 0.79 mg/dL (0.55-1.02); EST Glomerular Filtration Rate 76 mL/min (>60); Est Glom Filt Rate - Afr Amer 92 mL/min (>60); Estimated Creatinine Clearance 41.45 ml/min; Glucose 333 mg/dL (74-106); Potassium 4.5 mmol/L (3.5-5.1); Sodium Level 140 mmol/L (136-145)
[2022-03-16] MEDS: 0.9% Saline Lock 10 ML Syringe IV ×3 (06:40→21:54)
[2022-03-16] MEDS: Insulin Lispro 100 UNIT/ML INSULN.PEN SC ×4 (06:45→21:54)
[2022-03-16] MEDS: Ipratropium/Albuterol Sulfate 3 ML AMPUL.NEB INHALATION ×4 (06:54→19:21)
[2022-03-16 07:50] LABS: Bedside Glucose 372 mg/dL (74-106)
[2022-03-16] MEDS: Aspirin 81 MG TAB.CHEW PO (07:54)
--- NOTE | 2022-03-16 09:34 | CASEMGMT ---
Addendum entered by Margareth Mclaughlin 03/16/22 10:49: TC to [facility] spoke with Jyoti, she confirms that pt is active with OT services. Updated on status of patient and if patient does well with therapy, would like to add SN and PT. She states this is able to be accommodated but SN may not start for a week or so. She is aware orders will be sent once plan finalized. Addendum entered by Margareth Mclaughlin 03/16/22 10:40: Verified pt oxygen rx and it is 2L cont per Latonya at [facility]. Original Note: CONNOR ZIMMERMAN Assessment: Face to Face with pt for initial transition planning/care coordination assessment. CONNOR ZIMMERMAN introduced self and role at [facility], pt voices understanding and consents to assessment. Pt is A/O x4 and answers all questions appropriately at this time. Pt lying in bed with oxygen on in no distress talking on the phone. Care providers, pharmacy, and demographics verified/updated. Admitting Dx: acute COPD exac PCP: [facility] Specialists: nicolás Oviedo; pt has a swinging cut off saw operator in [place] but she is unsure of the name. Preferred Pharmacy: [facility] Insurance: My Care [facility] Prescription Benefit: yes LW/HPOA: Pt has a LW/DPOA on file at [facility]. Her DPOA is Camille Merchant. LNOK: Camille Merchant, dtr; Marshall Rivas, son Living Arrangements: Pt lives alone in a ground level apt with 5 steps to enter in the front or back with a rail. Pt reports she is I in ADL's although bathing and dressing take considerable time due to needing rest breaks as she has difficulty breathing. Pt expresses concern at home with bathing, laundry, dishes as well as meals. She states there are not available aides in [facility] to help her. Transportation: Pt drives self and denies concerns with transportation. DME/HHC/SNF: Pt has a pox, oxygen through [facility] at 2.5 liters cont and trilegy. Pt has a BGM with supplies except for strips. She states she has to go on [facility]'s website to order strips. Pt has a BP cuff , shower chair and rollator. Pt is current with [facility] for OT. She is active with [facility] and the vocational case manager is Nanda Salazar. Pt denies SNF stays. Pt states she may need to go to a facility for therapy. Noted her board states she is I and therapy is not ordered. Pt states she is not independent at home. Messaged hospitalist for therapy orders. Discussed with patient if she returns home to add SN and PT to her current [facility]. Pt still states she would like a facility. Notified SW. Will follow for therapy orders. Pt states no further concerns/needs. Advised pt to ask CM if any further question/concerns/needs arise, voices understanding. Pt Goal: SNF Plan: TBD pending therapy eval.
[2022-03-16] MEDS: Enoxaparin 40 MG/0.4 ML Syringe SC (09:56)
[2022-03-16] MEDS: Furosemide 20 MG Tablet PO (09:56)
[2022-03-16] MEDS: Cefdinir 300 MG Capsule PO ×2 (09:56→21:54)
[2022-03-16] MEDS: Clopidogrel Bisulfate 75 MG Tablet PO (09:56)
[2022-03-16] MEDS: Sertraline 50 MG Tablet PO (09:56)
[2022-03-16] MEDS: guaiFENesin 600 MG Tablet PO ×2 (10:02→21:54)
--- NOTE | 2022-03-16 11:01 | CASEMGMT ---
Social Work SW received referral from RNCM that pt is requesting that she may benefit from SNF. Phone call placed to pt Care Management Associate at [facility] Nanda Salazar [phone]. Nanda states that pt is eligible for an aid 5x week but recently fired her aid and Nanda has been unable to find a new one. Pt is eligible for 14 home delivered meals a week and did have this service but cancelled it. Pt is eligible for Adult Day Care 5x a week but is not interested in doing this. Pt has been provided with an emergency response system. SW reviewed pt chart. Pt was at [facility] in October and requested SNF. Referral was made and precert was denied by insurance as pt did not qualify for SNF due to functionality. SW met with pt and introduced self and role of SW. SW discussed her options with [facility]. Pt confirms she let my aid go, it didn't work out. Pt also states she cancelled meals because they were not good. Pt did state she has had [employer] in the past and would do that again. Discussed Adult Day Care at length and pt states she may consider this a couple times a week. SW and pt discussed discharge plan and that pt was denied SNF in October. Pt is able to recall this and acknowledge. SW spoke with pt regarding changes in functional needs since October and if insurance outcome would be different at this time for SNF placement. SW did provide list of SNF providers including quality and resource use data and consistent with the patient's preferred geographic region, medical needs and insurance network. Pt will review list but is understanding that PT/OT have been ordered and if pt does well, SNF is not warranted and home health can be set up and VANESA will speak with [facility] CM about increasing home services. Pt expresses understanding. MEHDI Romero
--- NOTE | 2022-03-16 11:49 | PN.HOSP_ITS ---
Documented by User: Nancy Cruz NP-C 03/16/22 11:59 Subjective Subjective Patient seen and examined. Patient lying in bed no distress noted. Objective Data Objective Data Vital Signs: Vital Signs Temp Pulse Resp BP Pulse Ox O2 Del Method O2 Flow Rate 98.2 F 84 20 H 145/64 H 96 Nasal Cannula 2 03/16/22 07:48 03/16/22 11:36 03/16/22 11:36 03/16/22 07:48 03/16/22 11:36 03/16/22 11:36 03/16/22 11:36 Oxygen Flow Rate (L/min) 2 Oxygen Delivery Method Nasal Cannula Weight: 197 lb 15.602 oz Body Mass Index (BMI) 35.0 Lab / Micro Data Result Diagrams: 03/16/22 05:42 03/16/22 05:42 Labs: Laboratory Results - last 24 hr 03/15/22 16:10: WBC 10.1, RBC 4.44, Hgb 12.8, Hct 39.7, MCV 89.4, MCH 28.8, MCHC 32.2, RDW Std Deviation 53.5 H, RDW Coeff of Doretha 16.4 H, Plt Count 292, MPV 9.8, Immature Gran % (Auto) 0.500, Neut % (Auto) 69.0, Lymph % (Auto) 22.9, Isabella % (Auto) 5.5, Eos % (Auto) 1.8, Baso % (Auto) 0.3, Absolute Neuts (auto) 7.0, Absolute Lymphs (auto) 2.31, Nucleated RBC % 0 03/15/22 16:10: D-Dimer Quant (PE/DVT) 0.36 03/15/22 16:10: Sodium 140, Potassium 4.5, Chloride 105, Carbon Dioxide 28.0, Anion Gap 7, BUN 16, Creatinine 0.83, Estim Creat Clear Calc 49.94, Est GFR (MDRD) Af Amer 87, Est GFR (MDRD) Non-Af 72, BUN/Creatinine Ratio 19.3, Glucose 204 H, Calcium 9.1, Troponin I High Sens 8 03/15/22 16:10: B-Natriuretic Peptide 24.0 03/15/22 21:40: POC Glucose 377 H 03/16/22 05:42: WBC 7.4, RBC 4.04 L, Hgb 11.6 L, Hct 37.3, MCV 92.3, MCH 28.7, MCHC 31.1 L, RDW Std Deviation 55.1 H, RDW Coeff of Doretha 16.2 H, Plt Count 259, MPV 10.1, Immature Gran % (Auto) 0.800, Neut % (Auto) 89.2 H, Lymph % (Auto) 8.8 L, Isabella % (Auto) 1.1, Eos % (Auto) 0.0, Baso % (Auto) 0.1, Absolute Neuts (auto) 6.6, Absolute Lymphs (auto) 0.65 L, Nucleated RBC % 0 03/16/22 05:42: Sodium 140, Potassium 4.5, Chloride 108 H, Carbon Dioxide 27.0, Anion Gap 5, BUN 15, Creatinine 0.79, Estim Creat Clear Calc 41.45, Est GFR (MDRD) Af Amer 92, Est GFR (MDRD) Non-Af 76, BUN/Creatinine Ratio 19.0, Glucose 333 H, Calcium 8.8 03/16/22 06:44: POC Glucose 372 H Micro: Microbiology 03/15/22 16:30 Nasal Secretion SARS-CoV-2 Antigen (Rapid) - Final Radiography Diagnostic Testing: Radiology Impression Chest X-Ray 03/15/22 16:29 IMPRESSION: No acute cardiopulmonary abnormality. COPD. Electronically Signed: Blaine Shaikh MD at 16:57 EDT Reading Location ID and State: [address] [place] [address] Tel , Service support , Rhythm Strip Rhythm Strip: Sinus Rhythm Rate: 89 Ectopy: None Physical Exam Const alert, oriented x3 and no apparent distress HEENT head/scalp atraumatic and moist oral mucous membranes Head and Scalp: normocephalic Eyes conjunctivae normal and no scleral icterus Neck no lymphadenopathy and supple Resp normal respiratory effort Effort and Inspection: able to speak in complete sentences and symmetric chest movement Auscultation: rhonchi throughout Cardio regular rate, regular rhythm, S1 normal heart sound and S2 normal heart sound GI normal to inspection, nondistended, normoactive bowel sounds, soft to palpation and non-tender Extremity normal to inspection, full ROM and no clubbing, cyanosis or edema Neuro oriented x3, moves all extremities, no focal motor deficits and no sensory deficits noted Psych affect normal Assessment & Plan Assessment/Plan (1) COPD exacerbation: PLAN: Plan 1. COPD exacerbation -Continue scheduled and prn breathing treatments -Continue IV Solumedrol -Continue Cefdinir -Oxygen per protocol, currently on 5L n/c, baseline 2.5L -Continue Trilogy QHS 2. Diabetes Mellitus Type II -ACHS blood sugar checks with SSI -Diet controlled at home, not currently on medication 3. CAD -Continue aspirin, clopidogrel, and atorvastatin 4. Anxiety -Continue sertraline and trazodone 5. RLS -Continue ropinirole and pramipexole DVT prophylaxis- SQ Lovenox This patient was seen by MIRIAM LoftonC under the supervision of Dr. Sumanth alaniz. 13 minutes spent in clinical coordination of patient's plan of care. Documented by User: Dr. Amauri Patterson MD 03/16/22 12:07 Objective Data Lab / Micro Data Result Diagrams: 03/16/22 05:42 03/16/22 05:42 Assessment & Plan Assessment/Plan (1) COPD exacerbation: Charges/Coding Addendum Addendum: Addendum: Dr. Patterson I personally examined the patient and reviewed the chart. I agree with the above. 71-year-old female with a history of COPD presents to the hospital with another exacerbation. She was recently discharged on February 26 on 10 days of steroids but says that she never returned back to baseline which is about 2-1/2 L of oxygen. She presented again to the hospital feeling short of breath, and in the ER with ambulation on her home oxygen she dropped to 81%. Today on my examination while at breakfast she dropped down to the high 70s on 4 L and I had to turn her up to 6 temporarily. We will continue with steroids and breathing treatments, she is allergic to fluoroquinolones and because she had new thick sputum was started on cefdinir, will add azithromycin for better coverage. Clinical time spent in all aspects of patient care: 18 minutes Visit Charges Inpatient E&M: 89053 Subs Hosp L2
[2022-03-16 12:30] LABS: Bedside Glucose 350 mg/dL (74-106)
[2022-03-16] MEDS: Azithromycin 250 MG Tablet 500 MG PO (12:48)
--- NOTE | 2022-03-16 15:28 | CASEMGMT ---
Discharge Golf Club Weighter Wilma rivera/virgen assistant clinical nurse manager reached out to Blanca at the [facility]. The [facility] no beds. Wilma sent a referral over to Hollie at [facility] with was patients second choice. Wilma Collazo Discharge Golf Club Weighter
--- NOTE | 2022-03-16 15:35 | CASEMGMT ---
Social Work SW met with pt and reviewed therapy evaluations. Pt continues to feel she will benefit from SNF placement. Pt preferred providers are [address] [facility] and 3. [facility]. miguel Dillon/virgen clerical assistant updated and states [place] has no available beds. Wilma will make referral to [facility]. Plan: [facility], pending acceptance and precert MEHDI Cabral
[2022-03-16 17:20] LABS: Bedside Glucose 289 mg/dL (74-106)
[2022-03-16] MEDS: traZODone 100 MG Tablet PO (21:54)
[2022-03-16] MEDS: Atorvastatin Calcium 80 MG Tablet PO (21:54)
[2022-03-16] MEDS: Pramipexole Di-HCl 0.5 MG Tablet 1.5 MG PO (21:54)
[2022-03-16 22:21] LABS: Bedside Glucose 344 mg/dL (74-106)
--- NOTE | 2022-03-16 22:37 | PCM.PN.BLA ---
Progress Note Nurse report that patient wiped blood from her buttocks. Stop prophylactic Lovenox. SCD ordered. Check H&H and BMP.
[2022-03-16 23:31] LABS: Hematocrit 34.1 % (37-47); Hemoglobin 10.8 g/dL (12.0-15.0)
[2022-03-16 23:33] LABS: Anion Gap 6 (5-15); BUN 28 mg/dL (7-18); BUN/Creat Ratio 22.4 RATIO (10-20); Calcium,Total 9.1 mg/dL (8.5-10.1); Chloride 104 mmol/L (98-107); Creatinine, Serum 1.25 mg/dL (0.55-1.02); EST Glomerular Filtration Rate 45 mL/min (>60); Est Glom Filt Rate - Afr Amer 54 mL/min (>60); Estimated Creatinine Clearance 33.16 ml/min; Glucose 373 mg/dL (74-106); Potassium 4.2 mmol/L (3.5-5.1); Sodium Level 135 mmol/L (136-145)
[2022-03-17] VITALS (10 sets, daily range): BP systolic 132–159; BP diastolic 66–85; PULSE 71–90; RESP 18–20; TEMP 36.6–36.7; O2SAT 93–99
[2022-03-17] MEDS: 0.9% Saline Lock 10 ML Syringe IV ×3 (05:44→21:56)
[2022-03-17 06:27] LABS: Absolute Lymphocyte Count 0.98 X10^3/uL (0.83-4.51); Absolute Neutrophil Count 16.4 X10^3/uL (2.0-7.7); Basophil# 0.02 X10^3/uL; Basophil% 0.1 % (0-1); Hematocrit 36.9 % (37-47); Hemoglobin 11.4 g/dL (12.0-15.0); Lymphocyte # 0.98 X10^3/ul (0.83-4.51); Lymphocyte % 5.4 % (19-41); Mean Corp Hgb Conc 30.9 g/dL (32-36); Mean Corpuscular Hgb 28.6 pg (27.0-32.0); Mean Corpuscular Volume 92.5 fL (81-99); Mean Platelet Vol. 9.9 fl (6.2-12.0); Monocyte# 0.49 X10^3/uL; Monocyte% 2.7 % (0-10); NRBC Flagged by Analyzer 0 % (0-5); Neutrophil # 16.43 X10^3/uL (2.7-7.7); Neutrophil % 90.9 % (47-70); Platelet Count 281 K/mm3 (150-450); RBC Distribution Width CV 15.9 % (11.6-14.6); RBC Distribution Width SD 54.1 fl (35.1-43.9); Red Blood Count 3.99 M/mm3 (4.2-5.4); White Blood Count 18.1 K/mm3 (4.4-11.0)
[2022-03-17] MEDS: Insulin Lispro 100 UNIT/ML INSULN.PEN SC ×4 (06:39→22:06)
[2022-03-17 06:52] LABS: ALB/GLOB Ratio 0.8 RATIO (0.9-2.4); AST(SGOT) 10 U/L (15-37); Alanine Aminotransfer ALT/SGPT 22 U/L (13-56); Alkaline Phosphatase 122 U/L (45-117); Anion Gap 4 (5-15); BUN 24 mg/dL (7-18); BUN/Creat Ratio 26.2 RATIO (10-20); Calcium,Total 9.2 mg/dL (8.5-10.1); Chloride 106 mmol/L (98-107); Creatinine, Serum 0.92 mg/dL (0.55-1.02); EST Glomerular Filtration Rate 64 mL/min (>60); Est Glom Filt Rate - Afr Amer 77 mL/min (>60); Estimated Creatinine Clearance 45.05 ml/min; Glucose 341 mg/dL (74-106); Potassium 5.1 mmol/L (3.5-5.1); Sodium Level 137 mmol/L (136-145)
[2022-03-17 07:00] LABS: Bedside Glucose 307 mg/dL (74-106)
[2022-03-17] MEDS: Ipratropium/Albuterol Sulfate 3 ML AMPUL.NEB INHALATION ×4 (07:28→19:57)
[2022-03-17] MEDS: Azithromycin 250 MG Tablet 500 MG PO (08:56)
[2022-03-17] MEDS: guaiFENesin 600 MG Tablet PO ×2 (08:57→21:57)
[2022-03-17] MEDS: Cefdinir 300 MG Capsule PO ×2 (08:57→21:58)
[2022-03-17] MEDS: Sertraline 50 MG Tablet PO (08:57)
[2022-03-17] MEDS: Furosemide 20 MG Tablet PO (08:57)
[2022-03-17] MEDS: Aspirin 81 MG TAB.CHEW PO (08:58)
[2022-03-17] MEDS: Clopidogrel Bisulfate 75 MG Tablet PO (08:58)
--- NOTE | 2022-03-17 10:41 | CM.ED ---
Addendum entered by Jerri Allen 03/17/22 14:27: SW updated RN ELSIE Zuluaga and MS3 production designer. Jerri BUTLER Original Note: VANESA Note VANESA called Hollie at [facility]. She hat checker her email and the precertification has not been received yet. VANESA provided Hollie with this magnetic tape typewriter operator's direct phone number if precert is received so this magnetic tape typewriter operator can be contacted directly. Jerri BUTLER
--- NOTE | 2022-03-17 11:42 | PCM.PN.HOSP ---
Documented by User: Nancy Cruz PROFESSOR OF GEOLOGY-C 03/17/22 11:43 Subjective Subjective Patient seen and examined. Patient needing 2L n/c at rest and 3L n/c with ambulation. Awaiting precert for [facility]. Objective Data Objective Data Vital Signs: Vital Signs Temp Pulse Resp BP Pulse Ox O2 Del Method O2 Flow Rate 98.1 F 77 18 159/85 H 94 Nasal Cannula 2.5 03/17/22 08:38 03/17/22 11:36 03/17/22 11:36 03/17/22 08:38 03/17/22 08:41 03/17/22 09:05 03/17/22 09:05 Oxygen Flow Rate (L/min) [ 3 AMBULATING with Oxygen #1] Oxygen Flow Rate (L/min) [At 2.5 REST with Oxygen] Oxygen Flow Rate (L/min) 2.5 Oxygen Delivery Method Nasal Cannula Weight: 197 lb 15.602 oz Body Mass Index (BMI) 35.0 Intake & Output: Intake and Output for Last 24 Hours 03/15/22 03/16/22 03/17/22 23:59 23:59 23:59 Intake Total 1330 / 1690 480 / 480 Balance 1330 / 1690 480 / 480 Lab / Micro Data Result Diagrams: 03/17/22 06:00 03/17/22 06:00 Labs: Laboratory Results - last 24 hr 03/16/22 12:01: POC Glucose 350 H 03/16/22 16:51: POC Glucose 289 H 03/16/22 21:53: POC Glucose 344 H 03/16/22 22:47: Hgb 10.8 L, Hct 34.1 L 03/16/22 22:47: Sodium 135 L, Potassium 4.2, Chloride 104, Carbon Dioxide 25.0, Anion Gap 6, BUN 28 H, Creatinine 1.25 H, Estim Creat Clear Calc 33.16, Est GFR (MDRD) Af Amer 54 L, Est GFR (MDRD) Non-Af 45 L, BUN/Creatinine Ratio 22.4 H, Glucose 373 H, Calcium 9.1 03/17/22 06:00: WBC 18.1 H, RBC 3.99 L, Hgb 11.4 L, Hct 36.9 L, MCV 92.5, MCH 28.6, MCHC 30.9 L, RDW Std Deviation 54.1 H, RDW Coeff of Doretha 15.9 H, Plt Count 281, MPV 9.9, Immature Gran % (Auto) 0.900, Neut % (Auto) 90.9 H, Lymph % (Auto) 5.4 L, [place] % (Auto) 2.7, Eos % (Auto) 0.0, Baso % (Auto) 0.1, Absolute Neuts (auto) 16.4 H, Absolute Lymphs (auto) 0.98, Nucleated RBC % 0 03/17/22 06:00: Sodium 137, Potassium 5.1, Chloride 106, Carbon Dioxide 27.0, Anion Gap 4 L, BUN 24 H, Creatinine 0.92, Estim Creat Clear Calc 45.05, Est GFR (MDRD) Af Amer 77, Est GFR (MDRD) Non-Af 64, BUN/Creatinine Ratio 26.2 H, Glucose 341 H, Calcium 9.2, Total Bilirubin 0.30, AST 10 L, ALT 22, Alkaline Phosphatase 122 H, Total Protein 7.0, Albumin 3.0 L, Globulin 4.0, Albumin/Globulin Ratio 0.8 L 03/17/22 06:38: POC Glucose 307 H Micro: Microbiology 03/17/22 05:20 Stool Stool Occult Blood (DAMARI) - Final 03/15/22 16:30 Nasal Secretion SARS-CoV-2 Antigen (Rapid) - Final Rhythm Strip Rhythm Strip: Sinus Rhythm Rate: 89 Ectopy: None Physical Exam Const alert, oriented x3 and no apparent distress HEENT head/scalp atraumatic and moist oral mucous membranes Eyes conjunctivae normal and no scleral icterus Neck no lymphadenopathy and supple Resp normal respiratory effort Effort and Inspection: able to speak in complete sentences and symmetric chest movement Auscultation: rhonchi throughout Cardio regular rate, regular rhythm, S1 normal heart sound and S2 normal heart sound GI normal to inspection, nondistended, normoactive bowel sounds, soft to palpation and non-tender Extremity normal to inspection, full ROM and no clubbing, cyanosis or edema Neuro oriented x3, moves all extremities, no focal motor deficits and no sensory deficits noted Psych affect normal Assessment & Plan Assessment/Plan (1) COPD exacerbation: PLAN: Plan 1. COPD exacerbation -Continue scheduled and prn breathing treatments -Continue IV Solumedrol -Continue Cefdinir -Oxygen per protocol, currently on 2L n/c, baseline 2.5L -Continue Trilogy QHS 2. Diabetes Mellitus Type II -ACHS blood sugar checks with SSI -Diet controlled at home, not currently on medication 3. CAD -Continue aspirin, clopidogrel, and atorvastatin 4. Anxiety -Continue sertraline and trazodone 5. RLS -Continue ropinirole and pramipexole DVT prophylaxis- SQ Lovenox This patient was seen by Nancy Cruz NP-C under the supervision of Dr. Patterson. 12 minutes spent in clinical coordination of patient's plan of care. Documented by User: Dr. Amauri Patterson MD 03/17/22 13:16 Objective Data Lab / Micro Data Result Diagrams: 03/17/22 06:00 03/17/22 06:00 Assessment & Plan Assessment/Plan (1) COPD exacerbation: Charges/Coding Addendum Addendum: Dr. Patterson I personally examined the patient and reviewed the chart. I agree with the above.? 71-year-old female with a history of COPD presents to the hospital with another exacerbation.? She was recently discharged on February 26 on 10 days of steroids but says that she never returned back to baseline which is about 2-1/2 L of oxygen.? She presented again to the hospital feeling short of breath, and in the ER with ambulation on her home oxygen she dropped to 81%.? Today on my examination while at breakfast she dropped down to the high 70s on 4 L and I had to turn her up to 6 temporarily.? We will continue with steroids and breathing treatments, she is allergic to fluoroquinolones and because she had new thick sputum was started on cefdinir, will add azithromycin for better coverage.? Clinical time spent in all aspects of patient care: 18 minutes 03/17/2022: Doing well, no issues overnight. Breathing better. She did have an ambulatory pulse ox that demonstrated only 3 L nasal cannula with ambulation. However she is planning on going to [facility] for rehab, she does not have any help at home as she lives alone. Clinical time spent in all aspects of patient care: 15 minutes Visit Charges Inpatient E&M: 13506 Subs Hosp L2
[2022-03-17 12:46] LABS: Bedside Glucose 332 mg/dL (74-106)
[2022-03-17 17:16] LABS: Bedside Glucose 438 mg/dL (74-106)
[2022-03-17] MEDS: Pramipexole Di-HCl 0.5 MG Tablet 1.5 MG PO (21:57)
[2022-03-17] MEDS: Atorvastatin Calcium 80 MG Tablet PO (21:57)
[2022-03-17] MEDS: traZODone 100 MG Tablet PO (21:58)
[2022-03-17 22:30] LABS: Bedside Glucose 317 mg/dL (74-106)
[2022-03-18] VITALS (10 sets, daily range): BP systolic 131–154; BP diastolic 61–83; PULSE 70–94; RESP 14–20; TEMP 36.4–36.9; O2SAT 94–98
[2022-03-18] MEDS: 0.9% Saline Lock 10 ML Syringe IV ×3 (05:26→21:59)
[2022-03-18] MEDS: Insulin Lispro 100 UNIT/ML INSULN.PEN SC ×4 (06:39→21:51)
[2022-03-18 07:15] LABS: Bedside Glucose 249 mg/dL (74-106)
[2022-03-18] MEDS: Ipratropium/Albuterol Sulfate 3 ML AMPUL.NEB INHALATION ×4 (07:17→19:46)
[2022-03-18] MEDS: Azithromycin 250 MG Tablet 500 MG PO (08:12)
[2022-03-18] MEDS: Aspirin 81 MG TAB.CHEW PO (08:12)
[2022-03-18] MEDS: guaiFENesin 600 MG Tablet PO ×2 (08:12→21:51)
[2022-03-18] MEDS: Cefdinir 300 MG Capsule PO ×2 (08:12→21:51)
[2022-03-18] MEDS: Clopidogrel Bisulfate 75 MG Tablet PO (08:12)
[2022-03-18] MEDS: Sertraline 50 MG Tablet PO (08:13)
[2022-03-18] MEDS: Furosemide 20 MG Tablet PO (08:13)
[2022-03-18] MEDS: Famotidine 20 MG Tablet PO (10:35)
--- NOTE | 2022-03-18 11:07 | PCM.PN.HOSP ---
Documented by User: Nancy Cruz NP-C 03/18/22 11:11 Subjective Subjective Patient seen and examined. Patient sitting in bed no distress noted. Patient states that she has had some heartburn past 2 days and is requesting something to help with that. Patient initiated on famotidine 20 mg daily. Patient awaiting pre-CERT to go to [facility]. Objective Data Objective Data Vital Signs: Vital Signs Temp Pulse Resp BP Pulse Ox O2 Del Method O2 Flow Rate 97.8 F 94 20 H 154/83 H 96 Nasal Cannula 2.5 03/18/22 09:06 03/18/22 09:06 03/18/22 09:06 03/18/22 09:06 03/18/22 09:06 03/18/22 09:06 03/18/22 09:06 Oxygen Flow Rate (L/min) [ 3 AMBULATING with Oxygen #1] Oxygen Flow Rate (L/min) [At 2.5 REST with Oxygen] Oxygen Flow Rate (L/min) 2.5 Oxygen Delivery Method Nasal Cannula Weight: 197 lb 15.602 oz Body Mass Index (BMI) 35.0 Intake & Output: Intake and Output for Last 24 Hours 03/16/22 03/17/22 03/18/22 23:59 23:59 23:59 Intake Total 1330 / 1690 1260 / 1260 Balance 1330 / 1690 1260 / 1260 Lab / Micro Data Result Diagrams: 03/17/22 06:00 03/17/22 06:00 Labs: Laboratory Results - last 24 hr 03/17/22 11:53: POC Glucose 332 H 03/17/22 16:41: POC Glucose 438 H 03/17/22 22:04: POC Glucose 317 H 03/18/22 06:38: POC Glucose 249 H Micro: Microbiology 03/17/22 15:15 Sputum, Expectorated/Coughed Respiratory Culture - Preliminary Appears to be normal respiratory kayla. Further studies to follow. 03/17/22 05:20 Stool Stool Occult Blood (DAMARI) - Final 03/15/22 16:30 Nasal Secretion SARS-CoV-2 Antigen (Rapid) - Final Rhythm Strip Rhythm Strip: Sinus Rhythm Rate: 89 Ectopy: None Physical Exam Const alert, oriented x3 and no apparent distress HEENT head/scalp atraumatic and moist oral mucous membranes Eyes conjunctivae normal and no scleral icterus Neck no lymphadenopathy and supple Resp normal respiratory effort Effort and Inspection: able to speak in complete sentences and symmetric chest movement Auscultation: rhonchi throughout Cardio regular rate, regular rhythm, S1 normal heart sound and S2 normal heart sound GI normal to inspection, nondistended, normoactive bowel sounds, soft to palpation and non-tender Extremity normal to inspection, full ROM and no clubbing, cyanosis or edema Neuro oriented x3, moves all extremities, no focal motor deficits and no sensory deficits noted Psych affect normal Assessment & Plan Assessment/Plan (1) COPD exacerbation: PLAN: Plan 1. COPD exacerbation -Continue scheduled and prn breathing treatments -Continue IV Solumedrol -Continue Cefdinir -Oxygen per protocol, currently on 2L n/c, baseline 2.5L -Continue Trilogy QHS 2. Heartburn -Famotidine 20mg PO daily 3. Diabetes Mellitus Type II -ACHS blood sugar checks with SSI -Diet controlled at home, not currently on medication 3. CAD -Continue aspirin, clopidogrel, and atorvastatin 4. Anxiety -Continue sertraline and trazodone 5. RLS -Continue ropinirole and pramipexole DVT prophylaxis- SQ Lovenox This patient was seen by Nancy Cruz NP-C under the supervision of Dr. Patterson. 12 minutes spent in clinical coordination of patient's plan of care. Documented by User: Dr. Amauri Patterson MD 03/18/22 13:07 Objective Data Lab / Micro Data Result Diagrams: 03/17/22 06:00 03/17/22 06:00 Assessment & Plan Assessment/Plan (1) COPD exacerbation: Charges/Coding Addendum Addendum: Dr. Patterson I personally examined the patient and reviewed the chart. I agree with the above.? 71-year-old female with a history of COPD presents to the hospital with another exacerbation.? She was recently discharged on February 26 on 10 days of steroids but says that she never returned back to baseline which is about 2-1/2 L of oxygen.? She presented again to the hospital feeling short of breath, and in the ER with ambulation on her home oxygen she dropped to 81%.? Today on my examination while at breakfast she dropped down to the high 70s on 4 L and I had to turn her up to 6 temporarily.? We will continue with steroids and breathing treatments, she is allergic to fluoroquinolones and because she had new thick sputum was started on cefdinir, will add azithromycin for better coverage.? Clinical time spent in all aspects of patient care: 18 minutes 03/17/2022:?Doing well, no issues overnight.? Breathing better.? She did have an ambulatory pulse ox that demonstrated only 3 L nasal cannula with ambulation.? However she is planning on going to [facility] for rehab, she does not have any help at home as she lives alone.? Clinical time spent in all aspects of patient care: 15 minutes 03/18/2022: Doing well with her oxygenation, she is back down to baseline. We are awaiting pre-CERT for SNF placement as she lives alone. She has completed 3 doses of azithromycin, and will complete 5 days total of cefdinir. Clinical time spent on all aspects of patient care: 15 minutes Visit Charges Inpatient E&M: 95885 Subs Hosp L2
[2022-03-18 11:36] LABS: Bedside Glucose 409 mg/dL (74-106)
[2022-03-18 16:30] LABS: Bedside Glucose 439 mg/dL (74-106)
[2022-03-18] MEDS: Pramipexole Di-HCl 0.5 MG Tablet 1.5 MG PO (21:50)
[2022-03-18] MEDS: traZODone 100 MG Tablet PO (21:50)
[2022-03-18] MEDS: Atorvastatin Calcium 80 MG Tablet PO (21:50)
[2022-03-18 22:51] LABS: Bedside Glucose 371 mg/dL (74-106)
[2022-03-19] VITALS (14 sets, daily range): BP systolic 128–168; BP diastolic 64–88; PULSE 64–90; RESP 14–22; TEMP 36.6–37.2; O2SAT 95–98
[2022-03-19 06:20] LABS: Absolute Lymphocyte Count 0.68 X10^3/uL (0.83-4.51); Absolute Neutrophil Count 11.5 X10^3/uL (2.0-7.7); Basophil# 0.01 X10^3/uL; Basophil% 0.1 % (0-1); Hematocrit 34.4 % (37-47); Hemoglobin 11.2 g/dL (12.0-15.0); Lymphocyte # 0.68 X10^3/ul (0.83-4.51); Lymphocyte % 5.3 % (19-41); Mean Corp Hgb Conc 32.6 g/dL (32-36); Mean Corpuscular Hgb 28.9 pg (27.0-32.0); Mean Corpuscular Volume 88.9 fL (81-99); Mean Platelet Vol. 9.8 fl (6.2-12.0); Monocyte# 0.49 X10^3/uL; Monocyte% 3.8 % (0-10); NRBC Flagged by Analyzer 0 % (0-5); Neutrophil # 11.52 X10^3/uL (2.7-7.7); Neutrophil % 89.1 % (47-70); Platelet Count 302 K/mm3 (150-450); RBC Distribution Width CV 16.1 % (11.6-14.6); RBC Distribution Width SD 52.8 fl (35.1-43.9); Red Blood Count 3.87 M/mm3 (4.2-5.4); White Blood Count 12.9 K/mm3 (4.4-11.0)
[2022-03-19] MEDS: Insulin Lispro 100 UNIT/ML INSULN.PEN SC ×4 (06:38→23:21)
[2022-03-19] MEDS: 0.9% Saline Lock 10 ML Syringe IV ×3 (06:40→20:35)
[2022-03-19] MEDS: Ipratropium/Albuterol Sulfate 3 ML AMPUL.NEB INHALATION ×4 (07:00→18:42)
[2022-03-19 07:04] LABS: ALB/GLOB Ratio 0.8 RATIO (0.9-2.4); AST(SGOT) 9 U/L (15-37); Alanine Aminotransfer ALT/SGPT 23 U/L (13-56); Albumin, Serum 2.8 g/dL (3.2-5.0); Alkaline Phosphatase 106 U/L (45-117); Anion Gap 5 (5-15); BUN 28 mg/dL (7-18); Calcium,Total 8.8 mg/dL (8.5-10.1); Chloride 103 mmol/L (98-107); Creatinine, Serum 0.76 mg/dL (0.55-1.02); EST Glomerular Filtration Rate 80 mL/min (>60); Est Glom Filt Rate - Afr Amer 96 mL/min (>60); Estimated Creatinine Clearance 41.45 ml/min; Globulin 3.5 g/dL (2.2-4.2); Glucose 238 mg/dL (74-106); Potassium 4.7 mmol/L (3.5-5.1); Protein, Total 6.3 g/dL (6.4-8.2); Sodium Level 136 mmol/L (136-145)
[2022-03-19 07:05] LABS: Bedside Glucose 224 mg/dL (74-106)
[2022-03-19] MEDS: Aspirin 81 MG TAB.CHEW PO (08:15)
[2022-03-19] MEDS: guaiFENesin 600 MG Tablet PO ×2 (08:54→23:25)
[2022-03-19] MEDS: Furosemide 20 MG Tablet PO (08:55)
[2022-03-19] MEDS: Cefdinir 300 MG Capsule PO (08:55)
[2022-03-19] MEDS: Sertraline 50 MG Tablet PO (08:55)
[2022-03-19] MEDS: Clopidogrel Bisulfate 75 MG Tablet PO (08:55)
[2022-03-19] MEDS: Famotidine 20 MG Tablet PO (08:58)
--- NOTE | 2022-03-19 09:22 | EKG12_ITS ---
Test Reason : CP Blood Pressure : / mmHG Vent. Rate : 079 BPM Atrial Rate : 079 BPM P-R Int : 172 ms QRS Dur : 088 ms QT Int : 372 ms P-R-T Axes : 024 049 055 degrees QTc Int : 426 ms Normal sinus rhythm Normal ECG When compared with ECG of 15-MAR-2022 16:06, Nonspecific T wave abnormality no longer evident in Anterior leads Confirmed by NEIDA RUSHING, BREE ([id number]), acquisitions editor AYANNA LORENZO ([id number]) on 03/20/2022 11:13:45 AM Referred By: PROMISE Confirmed By:BREE CARRASQUILLO MD
--- NOTE | 2022-03-19 09:33 | CASEMGMT ---
Social Work SW met with pt to discuss her progress over the weekend and pt need for SNF. Pt states that she definatly needs to go to SNF as she is very short of breath and cannot take care of herself. SW reviewed therapy notes with pt, and pt continues to state she needs SNF. Referral had been made to [facility] on Saturday, and per weekend SW notes, pt was accepted and precert has been started. Awaiting determination of precert. Plan: [facility], pending precert MEHDI Cabral
[2022-03-19] MEDS: Mag Hydrox/Al Hydrox/Simeth 30 ML UDC PO (09:34)
--- NOTE | 2022-03-19 11:09 | CASEMGMT ---
Discharge Wool Presser Wilma gunter reached out to Hollie at [facility]. [facility] did accept patient over weekend and pre-cert has been started. Hollie will notify us when pre-cert is obtained. Wilma Collazo Discharge Wool Presser
[2022-03-19 11:35] LABS: Bedside Glucose 328 mg/dL (74-106)
--- NOTE | 2022-03-19 12:45 | PN.HOSP_ITS ---
Documented by User: ORA Lofton 03/19/22 12:47 Subjective Subjective Patient seen and examined. Patient sitting in chair no distress noted. Objective Data Objective Data Vital Signs: Vital Signs Temp Pulse Resp BP Pulse Ox O2 Del Method O2 Flow Rate 98.1 F 89 21 H 154/64 H 96 Nasal Cannula 2.5 03/19/22 10:53 03/19/22 11:08 03/19/22 11:08 03/19/22 10:53 03/19/22 10:53 03/19/22 10:53 03/19/22 10:53 Oxygen Flow Rate (L/min) [ 3 AMBULATING with Oxygen #1] Oxygen Flow Rate (L/min) [At 2.5 REST with Oxygen] Oxygen Flow Rate (L/min) 2.5 Oxygen Delivery Method Nasal Cannula Weight: 197 lb 15.602 oz Body Mass Index (BMI) 35.0 Intake & Output: Intake and Output for Last 24 Hours 03/17/22 03/18/22 03/19/22 23:59 23:59 23:59 Intake Total 1260 / 1260 1100 / 1600 900 / 900 Balance 1260 / 1260 1100 / 1600 900 / 900 Lab / Micro Data Result Diagrams: 03/19/22 05:37 03/19/22 05:37 Labs: Laboratory Results - last 24 hr 03/18/22 16:01: POC Glucose 439 H 03/18/22 21:49: POC Glucose 371 H 03/19/22 05:37: WBC 12.9 H, RBC 3.87 L, Hgb 11.2 L, Hct 34.4 L, MCV 88.9, MCH 28.9, MCHC 32.6 D, RDW Std Deviation 52.8 H, RDW Coeff of Doretha 16.1 H, Plt Count 302, MPV 9.8, Immature Gran % (Auto) 1.700 H, Neut % (Auto) 89.1 H, Lymph % (Auto) 5.3 L, Hemphill % (Auto) 3.8, Eos % (Auto) 0.0, Baso % (Auto) 0.1, Absolute Neuts (auto) 11.5 H, Absolute Lymphs (auto) 0.68 L, Nucleated RBC % 0 03/19/22 05:37: Sodium 136, Potassium 4.7, Chloride 103, Carbon Dioxide 28.0, Anion Gap 5, BUN 28 H, Creatinine 0.76, Estim Creat Clear Calc 41.45, Est GFR (MDRD) Af Amer 96, Est GFR (MDRD) Non-Af 80, BUN/Creatinine Ratio 37.0 H, Glucose 238 H, Calcium 8.8, Total Bilirubin 0.50, AST 9 L, ALT 23, Alkaline Phosphatase 106, Total Protein 6.3 L, Albumin 2.8 L, Globulin 3.5, Albumin/Globulin Ratio 0.8 L 03/19/22 06:36: POC Glucose 224 H 03/19/22 11:14: POC Glucose 328 H Micro: Microbiology 03/17/22 15:15 Sputum, Expectorated/Coughed Gram Stain - Final 03/17/22 15:15 Sputum, Expectorated/Coughed Respiratory Culture - Final Mixed normal respiratory kayla. No Streptococcus pneumoniae, beta-hemolytic Streptococcus or Staphylococcus aureus isolated. 03/17/22 05:20 Stool Stool Occult Blood (DAMARI) - Final 03/15/22 16:30 Nasal Secretion SARS-CoV-2 Antigen (Rapid) - Final Rhythm Strip Rhythm Strip: Sinus Rhythm Rate: 89 Ectopy: None Physical Exam Const alert, oriented x3 and no apparent distress HEENT head/scalp atraumatic and moist oral mucous membranes Eyes conjunctivae normal and no scleral icterus Neck no lymphadenopathy and supple Resp normal respiratory effort Effort and Inspection: able to speak in complete sentences and symmetric chest movement Auscultation: rhonchi throughout Cardio regular rate, regular rhythm, S1 normal heart sound and S2 normal heart sound GI normal to inspection, nondistended, normoactive bowel sounds, soft to palpation and non-tender Extremity normal to inspection, full ROM and no clubbing, cyanosis or edema Neuro oriented x3, moves all extremities, no focal motor deficits and no sensory deficits noted Psych affect normal Assessment & Plan Assessment/Plan (1) COPD exacerbation: PLAN: Plan 1. COPD exacerbation -Continue scheduled and prn breathing treatments -Continue IV Solumedrol -Continue Cefdinir -Oxygen per protocol, currently on 2.5L n/c, baseline 2.5L -Continue Trilogy QHS 2. Heartburn -Famotidine 20mg PO daily 3. Diabetes Mellitus Type II -ACHS blood sugar checks with SSI -Diet controlled at home, not currently on medication 3. CAD -Continue aspirin, clopidogrel, and atorvastatin 4. Anxiety -Continue sertraline and trazodone 5. RLS -Continue ropinirole and pramipexole DVT prophylaxis- SQ Lovenox This patient was seen by Nancy Cruz, ÁNGELA-C under the supervision of Dr. Fountain. 13 minutes spent in clinical coordination of patient's plan of care. Documented by User: Dr. Felipe Fountain, DO 03/19/22 18:58 Objective Data Lab / Micro Data Result Diagrams: 03/19/22 05:37 03/19/22 05:37 Assessment & Plan Assessment/Plan (1) COPD exacerbation: Charges/Coding Addendum Addendum: Patient was seen and examined independently of Yolanda Cruz today, she states sh e is too weak to go home and take care of her self, she request placement for short-term rehab services and a long term facility. Patient has no complaints of any increased shortness of breath today. On examination she appeared much older than her stated age, she appears fatigued, she does not appear to be in any distress. Vital signs as documented. Skin warm and dry and without overt rashes. Neck without JVD, thyroid appears normal, trachea is midline, neck is supple. Lungs clear, decreased breath sounds are noted bilaterally. Heart exam notable for regular rhythm, normal sounds and absence of murmurs, rubs or gallops. Abdomen unremarkable and without evidence of organomegaly, masses, or abdominal aortic enlargement, bowel sounds are present in all 4 quadrants, no abdominal tenderness was noted. Extremities nonedematous, no cyanosis was noted, no clubbing was noted. Neuro: Cranial nerves II through XII are grossly intact, no focal motor deficits were noted, sensation to light touch and pinprick is intact, motor exam 5/5 throughout. Psych: Patient is alert and oriented x3, she does not appear anxious or depressed, she does not appear agitated. #1 acute exacerbation of COPD-continue present treatment including IV corticosteroids, aerosol treatments, supplemental oxygen, trilogy at bedtime #2 chronic hypoxic respiratory failure-patient is currently 2.5 L O2 via nasal cannula #3 acute debility-patient will need placement in a long term facility if it is allowed by her insurance carrier #4 chronic depression-patient is on Zoloft #5 hyperlipidemia-patient is on Lipitor #6 type 2 diabetes-patient's blood sugars will be monitored, sliding scale insulin will be used as needed I have reviewed Yolanda Cruz's progress note including her medical assessment an d plan of care and with the above additions endorse it. Total clinical time spent by myself addressing the patient's medical issues, reviewing the data, and collaborating with patient's care team: 25-minutes Visit Charges Inpatient E&M: [id number] Subs Hosp L3
[2022-03-19 16:55] LABS: Bedside Glucose 224 mg/dL (74-106)
[2022-03-19] MEDS: Pramipexole Di-HCl 0.5 MG Tablet 1.5 MG PO (23:13)
[2022-03-19] MEDS: traZODone 100 MG Tablet PO (23:13)
[2022-03-19] MEDS: Atorvastatin Calcium 80 MG Tablet PO (23:18)
[2022-03-20] VITALS (12 sets, daily range): BP systolic 135–155; BP diastolic 53–83; PULSE 61–88; RESP 18–24; TEMP 36.6–36.9; O2SAT 94–98
[2022-03-20 00:05] LABS: Bedside Glucose 269 mg/dL (74-106)
[2022-03-20] MEDS: Ipratropium/Albuterol Sulfate 3 ML AMPUL.NEB INHALATION ×4 (05:22→19:27)
[2022-03-20] MEDS: Insulin Lispro 100 UNIT/ML INSULN.PEN SC ×4 (06:48→22:40)
[2022-03-20 06:52] LABS: Absolute Lymphocyte Count 1.22 X10^3/uL (0.83-4.51); Absolute Neutrophil Count 11.4 X10^3/uL (2.0-7.7); Basophil# 0.05 X10^3/uL; Basophil% 0.4 % (0-1); Hematocrit 38.6 % (37-47); Hemoglobin 12.4 g/dL (12.0-15.0); Lymphocyte # 1.22 X10^3/ul (0.83-4.51); Lymphocyte % 8.8 % (19-41); Mean Corp Hgb Conc 32.1 g/dL (32-36); Mean Corpuscular Hgb 28.9 pg (27.0-32.0); Mean Platelet Vol. 10.2 fl (6.2-12.0); Monocyte% 6.5 % (0-10); NRBC Flagged by Analyzer 0 % (0-5); Neutrophil # 11.36 X10^3/uL (2.7-7.7); Neutrophil % 82.1 % (47-70); POSITIVE COUNT YES; Platelet Count 327 K/mm3 (150-450); RBC Distribution Width CV 16.1 % (11.6-14.6); RBC Distribution Width SD 52.1 fl (35.1-43.9); Red Blood Count 4.29 M/mm3 (4.2-5.4); White Blood Count 13.8 K/mm3 (4.4-11.0)
[2022-03-20 06:57] LABS: Differential Indicated SCAN CRITERIA MET
[2022-03-20 07:25] LABS: Bedside Glucose 185 mg/dL (74-106)
[2022-03-20 07:38] LABS: ALB/GLOB Ratio 0.8 RATIO (0.9-2.4); AST(SGOT) 15 U/L (15-37); Alanine Aminotransfer ALT/SGPT 29 U/L (13-56); Albumin, Serum 3.1 g/dL (3.2-5.0); Alkaline Phosphatase 109 U/L (45-117); Anion Gap 7 (5-15); BUN 36 mg/dL (7-18); BUN/Creat Ratio 50.4 RATIO (10-20); Calcium,Total 8.6 mg/dL (8.5-10.1); Chloride 100 mmol/L (98-107); Creatinine, Serum 0.71 mg/dL (0.55-1.02); EST Glomerular Filtration Rate 85 mL/min (>60); Est Glom Filt Rate - Afr Amer 103 mL/min (>60); Estimated Creatinine Clearance 41.45 ml/min; Globulin 3.7 g/dL (2.2-4.2); Glucose 181 mg/dL (74-106); Potassium 4.7 mmol/L (3.5-5.1); Protein, Total 6.8 g/dL (6.4-8.2); Sodium Level 133 mmol/L (136-145)
[2022-03-20] MEDS: guaiFENesin 600 MG Tablet PO ×2 (08:25→22:34)
[2022-03-20] MEDS: Aspirin 81 MG TAB.CHEW PO (08:25)
[2022-03-20] MEDS: Furosemide 20 MG Tablet PO (08:25)
[2022-03-20] MEDS: Clopidogrel Bisulfate 75 MG Tablet PO (08:25)
[2022-03-20] MEDS: predniSONE 20 MG Tablet 40 MG PO (08:25)
[2022-03-20] MEDS: Sertraline 50 MG Tablet PO (08:25)
[2022-03-20] MEDS: Famotidine 20 MG Tablet PO (08:25)
--- NOTE | 2022-03-20 10:28 | CASEMGMT ---
Discharge Psychopaedic Nurse Wilma Rangel business assistant was notified by Hollie from [facility] that pre-cert is still pending. Will follow up. Plan: [facility], Waiting pre-cert. Wilma Collazo Discharge Psychopaedic Nurse
[2022-03-20 11:41] LABS: Bedside Glucose 273 mg/dL (74-106)
--- NOTE | 2022-03-20 13:14 | PN.HOSP_ITS ---
Documented by User: ORA Lofton 03/20/22 13:16 Subjective Subjective Patient seen and examined. Patient sitting in bed, no distress noted. Patient voices frustration at waiting on detention pre-cert Objective Data Objective Data Vital Signs: Vital Signs Temp Pulse Resp BP Pulse Ox O2 Del Method O2 Flow Rate 98.5 F 81 24 H 147/70 H 96 Nasal Cannula 2.5 03/20/22 09:08 03/20/22 10:57 03/20/22 10:57 03/20/22 09:08 03/20/22 10:57 03/20/22 11:00 03/20/22 11:00 Oxygen Flow Rate (L/min) [ 3 AMBULATING with Oxygen #1] Oxygen Flow Rate (L/min) [At 2.5 REST with Oxygen] Oxygen Flow Rate (L/min) 2.5 Oxygen Delivery Method Nasal Cannula Weight: 197 lb 15.602 oz Body Mass Index (BMI) 35.0 Intake & Output: Intake and Output for Last 24 Hours 03/18/22 03/19/22 03/20/22 23:59 23:59 23:59 Intake Total 1100 / 1600 1650 / 1650 Balance 1100 / 1600 1650 / 1650 Lab / Micro Data Result Diagrams: 03/20/22 06:10 03/20/22 06:10 Labs: Laboratory Results - last 24 hr 03/19/22 16:34: POC Glucose 224 H 03/19/22 23:20: POC Glucose 269 H 03/20/22 06:10: WBC 13.8 H, RBC 4.29, Hgb 12.4, Hct 38.6, MCV 90.0, MCH 28.9, MCHC 32.1, RDW Std Deviation 52.1 H, RDW Coeff of Doretha 16.1 H, Plt Count 327, MPV 10.2, Immature Gran % (Auto) 2.200 H, Neut % (Auto) 82.1 H, Lymph % (Auto) 8.8 L , Alfalfa % (Auto) 6.5, Eos % (Auto) 0.0, Baso % (Auto) 0.4, Absolute Neuts (auto) 11.4 H, Absolute Lymphs (auto) 1.22, Nucleated RBC % 0 03/20/22 06:10: Sodium 133 L, Potassium 4.7, Chloride 100, Carbon Dioxide 26.0, Anion Gap 7, BUN 36 H, Creatinine 0.71, Estim Creat Clear Calc 41.45, Est GFR (MDRD) Af Amer 103, Est GFR (MDRD) Non-Af 85, BUN/Creatinine Ratio 50.4 H, Glucose 181 H, Calcium 8.6, Total Bilirubin 0.40, AST 15, ALT 29, Alkaline Phosphatase 109, Total Protein 6.8, Albumin 3.1 L, Globulin 3.7, Albumin/Globulin Ratio 0.8 L 03/20/22 06:46: POC Glucose 185 H 03/20/22 11:18: POC Glucose 273 H Micro: Microbiology 03/17/22 15:15 Sputum, Expectorated/Coughed Gram Stain - Final 03/17/22 15:15 Sputum, Expectorated/Coughed Respiratory Culture - Final Mixed normal respiratory kayla. No Streptococcus pneumoniae, beta-hemolytic Streptococcus or Staphylococcus aureus isolated. 03/17/22 05:20 Stool Stool Occult Blood (DAMARI) - Final 03/15/22 16:30 Nasal Secretion SARS-CoV-2 Antigen (Rapid) - Final Rhythm Strip Rhythm Strip: Sinus Rhythm Rate: 89 Ectopy: None Physical Exam Const alert, oriented x3 and no apparent distress HEENT head/scalp atraumatic and moist oral mucous membranes Eyes conjunctivae normal and no scleral icterus Neck no lymphadenopathy and supple Resp normal respiratory effort Effort and Inspection: able to speak in complete sentences and symmetric chest movement Auscultation: rhonchi throughout Cardio regular rate, regular rhythm, S1 normal heart sound and S2 normal heart sound GI normal to inspection, nondistended, normoactive bowel sounds, soft to palpation and non-tender Extremity normal to inspection, full ROM and no clubbing, cyanosis or edema Neuro oriented x3, moves all extremities, no focal motor deficits and no sensory de ficits noted Psych affect normal Assessment & Plan Assessment/Plan (1) COPD exacerbation: PLAN: Plan 1. COPD exacerbation -Continue scheduled and prn breathing treatments -Continue IV Solumedrol -Continue Cefdinir -Oxygen per protocol, currently on 2.5L n/c, baseline 2.5L -Continue Trilogy QHS 2. Heartburn -Famotidine 20mg PO daily 3. Diabetes Mellitus Type II -ACHS blood sugar checks with SSI -Diet controlled at home, not currently on medication 3. CAD -Continue aspirin, clopidogrel, and atorvastatin 4. Anxiety -Continue sertraline and trazodone 5. RLS -Continue ropinirole and pramipexole DVT prophylaxis- SQ Lovenox This patient was seen by Nancy Cruz, ÁNGELA-C under the supervision of Dr. Fountain. 11 minutes spent in clinical coordination of patient's plan of care. Documented by User: Dr. Felipe Fountain, DO 03/20/22 18:23 Objective Data Lab / Micro Data Result Diagrams: 03/20/22 06:10 03/20/22 06:10 Assessment & Plan Assessment/Plan (1) COPD exacerbation: Charges/Coding Addendum Addendum: Patient was seen and examined today independently of Yolanda Cruz, she does not appear in any respiratory distress, her oxygen flow rate at this time is 2.5 L. We are currently awaiting approval for her to go to a residential facility. Patient does not complain of any shortness of breath or chest discomfort. On examination she appeared much older than her stated age, she appears fatigued, she does not appear to be in any distress. Vital signs as documented. Skin warm and dry and without overt rashes. Neck without JVD, thyroid appears normal, trachea is midline, neck is supple. Lungs clear, decreased breath sounds are noted bilaterally. Heart exam notable for regular rhythm, normal sounds and absence of murmurs, rubs or gallops. Abdomen unremarkable and without evidence of organomegaly, masses, or abdominal aortic enlargement, bowel sounds are present in all 4 quadrants, no abdominal tenderness was noted. Extremities nonedematous, no cyanosis was noted, no clubbing was noted.? Neuro: Cranial nerves II through XII are grossly intact, no focal motor deficits were noted, sensation to light touch and pinprick is intact, motor exam 5/5 throughout.? Psych: Patient is alert and oriented x3, she does not appear anxious or depressed, she does not appear agitated. #1 acute exacerbation of COPD-continue present treatment including IV corticosteroids, aerosol treatments, supplemental oxygen, trilogy at bedtime #2 chronic hypoxic respiratory failure-patient is currently 2.5 L O2 via nasal cannula #3 acute debility-patient will need placement in a residential facility if it is allowed by her insurance carrier #4 chronic depression-patient is on Zoloft #5 hyperlipidemia-patient is on Lipitor #6 type 2 diabetes-patient's blood sugars will be monitored, sliding scale insulin will be used as needed I have reviewed Yolanda Cruz's progress note including her medical assessment and plan of care and with the above additions endorse it. Total clinical time spent by myself addressing the patient's medical issues, reviewing the data, and collaborating with patient's care team: 25 minutes Visit Charges Inpatient E&M: 79136 Subs Hosp L3
[2022-03-20 16:40] LABS: Bedside Glucose 262 mg/dL (74-106)
[2022-03-20] MEDS: traZODone 100 MG Tablet PO (22:34)
[2022-03-20] MEDS: Pramipexole Di-HCl 0.5 MG Tablet 1.5 MG PO (22:34)
[2022-03-20] MEDS: Atorvastatin Calcium 80 MG Tablet PO (22:35)
[2022-03-20] MEDS: 0.9% Saline Lock 10 ML Syringe IV ×2 (22:36→22:54)
[2022-03-21] VITALS (8 sets, daily range): BP systolic 129–162; BP diastolic 82–84; PULSE 60–94; RESP 18–20; TEMP 36.3–36.6; O2SAT 94–98
[2022-03-21 03:25] LABS: Bedside Glucose 228 mg/dL (74-106)
[2022-03-21] MEDS: 0.9% Saline Lock 10 ML Syringe IV (06:27)
[2022-03-21 07:08] LABS: Absolute Lymphocyte Count 3.27 X10^3/uL (0.83-4.51); Absolute Neutrophil Count 7.9 X10^3/uL (2.0-7.7); Basophil# 0.11 X10^3/uL; Basophil% 0.8 % (0-1); Eosinophil# 0.15 X10^3/uL; Eosinophils% 1.1 % (0-5); Hematocrit 38.5 % (37-47); Hemoglobin 12.2 g/dL (12.0-15.0); Lymphocyte # 3.27 X10^3/ul (0.83-4.51); Lymphocyte % 24.9 % (19-41); Mean Corp Hgb Conc 31.7 g/dL (32-36); Mean Corpuscular Hgb 28.3 pg (27.0-32.0); Mean Corpuscular Volume 89.3 fL (81-99); Mean Platelet Vol. 9.6 fl (6.2-12.0); Monocyte# 1.08 X10^3/uL; Monocyte% 8.2 % (0-10); NRBC Flagged by Analyzer 0 % (0-5); Neutrophil # 7.92 X10^3/uL (2.7-7.7); Neutrophil % 60.6 % (47-70); Platelet Count 335 K/mm3 (150-450); RBC Distribution Width CV 16.2 % (11.6-14.6); RBC Distribution Width SD 53.4 fl (35.1-43.9); Red Blood Count 4.31 M/mm3 (4.2-5.4); White Blood Count 13.1 K/mm3 (4.4-11.0)
[2022-03-21 07:21] LABS: Bedside Glucose 132 mg/dL (74-106)
[2022-03-21] MEDS: Ipratropium/Albuterol Sulfate 3 ML AMPUL.NEB INHALATION ×2 (07:27→11:16)
[2022-03-21 08:00] LABS: ALB/GLOB Ratio 0.8 RATIO (0.9-2.4); AST(SGOT) 15 U/L (15-37); Alanine Aminotransfer ALT/SGPT 27 U/L (13-56); Albumin, Serum 2.8 g/dL (3.2-5.0); Alkaline Phosphatase 97 U/L (45-117); Anion Gap 4 (5-15); BUN 35 mg/dL (7-18); BUN/Creat Ratio 49.1 RATIO (10-20); Calcium,Total 8.4 mg/dL (8.5-10.1); Chloride 103 mmol/L (98-107); Creatinine, Serum 0.71 mg/dL (0.55-1.02); EST Glomerular Filtration Rate 85 mL/min (>60); Est Glom Filt Rate - Afr Amer 103 mL/min (>60); Estimated Creatinine Clearance 41.45 ml/min; Globulin 3.3 g/dL (2.2-4.2); Glucose 116 mg/dL (74-106); Potassium 4.1 mmol/L (3.5-5.1); Protein, Total 6.1 g/dL (6.4-8.2); Sodium Level 136 mmol/L (136-145)
[2022-03-21] MEDS: Clopidogrel Bisulfate 75 MG Tablet PO (09:33)
[2022-03-21] MEDS: Aspirin 81 MG TAB.CHEW PO (09:33)
[2022-03-21] MEDS: Famotidine 20 MG Tablet PO (09:33)
[2022-03-21] MEDS: predniSONE 20 MG Tablet 40 MG PO (09:33)
[2022-03-21] MEDS: Sertraline 50 MG Tablet PO (09:33)
[2022-03-21] MEDS: guaiFENesin 600 MG Tablet PO (09:33)
[2022-03-21] MEDS: Furosemide 20 MG Tablet PO (09:34)
--- NOTE | 2022-03-21 10:08 | CASEMGMT ---
Discharge Balance Bridge Inspector Hollie from [facility] reached out. Pre-cert has been obtained. Patient can go to [facility] when medically ready. VANESA Hobson notified. Plan: [facility], When medically ready. Wilma Collazo Discharge Balance Bridge Inspector
--- NOTE | 2022-03-21 10:27 | PCM.TXEXTCAR ---
Diet Diet Order/Speech Therapy: 03/15/22 19:58 Diet: Cardiac - Heart Healthy Food consistency:: Regular Liquid Consistency:: Regular/Thin Diet: Consistent Carb - Calorie Controlled Food consistency:: Regular Liquid Consistency:: Regular/Thin How many daily calories?: 1800 calorie Routine Orders/Code Status Enema Type: Fleetz Enema Frequency: Daily PRN Suppository Type: Dulcolax 10mg Suppository Frequency: Daily PRN O2 Liters per Minute: 2.5 O2 Frequency: Continuous Routine Lab Work: CBC and BMP Code Status: Full Code Suggestions for Active Care Change Position every (hours): 2 Times a day to sit in chair: 3 Therapies Weight Bearing: Full weight bearing Physical Therapy: Eval and Treat Occupational Therapy: Eval and Treat Problem/Diagnosis (1) COPD exacerbation: Status: Chronic Code(s): J44.1 - Chronic obstructive pulmonary disease with (acute) exacerbation Plan 1. COPD exacerbation -Continue scheduled and prn breathing treatments -Continue IV Solumedrol -Continue Cefdinir -Oxygen per protocol, currently on 2.5L n/c, baseline 2.5L -Continue Trilogy QHS 2. Heartburn -Famotidine 20mg PO daily 3. Diabetes Mellitus Type II -ACHS blood sugar checks with SSI -Diet controlled at home, not currently on medication 3. CAD -Continue aspirin, clopidogrel, and atorvastatin 4. Anxiety -Continue sertraline and trazodone 5. RLS -Continue ropinirole and pramipexole DVT prophylaxis- SQ Lovenox This patient was seen by ORA Lofton under the supervision of Dr. Fountain. Allergies/Procedures Done in Hospital Allergies bupropion HCl [From Wellbutrin] Allergy (Verified 02/24/22 21:44) Hives gabapentin [From Neurontin] Allergy (Verified 02/24/22 21:44) Hives moxifloxacin HCl [From Avelox] Allergy (Verified 02/24/22 21:44) Hives Procedures: None Type of Care/Length of Stay Estimated LOS: Convalescent Care Less Than 30 days Type of Care Needed: Skilled Rehab Potential: Good Prognosis: Good Additional Orders/Day of Discharge Day of Discharge: 03/21/22 Dietary and Speech Recommendations Dietitian Recommendations/Changes: Will continue 1800 leeroy Consistent CHO/ Cardiac diet as ordered Discharge Plan Admission Admit Date/Time: 03/15/22 19:11 Primary Reason for Your Visit: COPD exacerbation Attending Provider: Felipe Fountain Primary Care Provider: Heladio Edwards Consulting Providers: Cesar Hobbs ; Amauri Patterson Discharge Orders/Prescriptions Prescriptions: New famotidine 20 mg Tablet 20 mg PO DAILY Qty: 0 0RF guaifenesin [Mucus Relief ER] 600 mg Tablet Extended Release 12hr 600 mg PO BID Qty: 0 0RF prednisone 10 mg tablet See Taper PO BREAKFAST Qty: 30 0RF Taper: Prednisone Taper 40 mg WITH BREAKFAST for 3 Days and 0 Hour 30 mg WITH BREAKFAST for 3 Days and 0 Hour 20 mg WITH BREAKFAST for 3 Days and 0 Hour 10 mg WITH BREAKFAST for 3 Days and 0 Hour Continued umeclidinium 62.5 mcg/actuation blister with device 1 puff INHALATION DAILY trazodone 100 MG tablet 100 mg PO QHS Label Comments: sleep pramipexole 1.5 MG tablet 1.5 mg PO QHS Label Comments: parkinson's disease/restless legs ropinirole 2 MG tablet 2 mg PO QHS Label Comments: parkinson's disease/restless leg furosemide 20 mg tablet 20 mg PO DAILY ibandronate 150 mg tablet 150 mg PO QMONTH atorvastatin 80 mg tablet 80 mg PO QHS Label Comments: Take 1 tablet by mouth at bedtime clopidogrel 75 mg tablet 75 mg PO DAILY Label Comments: TAKE ONE TABLET BY MOUTH DAILY fluticasone furoate-vilanterol [Breo Ellipta] 100-25 mcg/dose blister with device 1 inh INHALATION DAILY Label Comments: inhale 1 inhalation as instructed once daily aspirin 81 mg Tablet,Chewable 81 mg PO BREAKFAST 30 Days Qty: 30 0RF sertraline 50 mg tablet 50 mg PO DAILY Label Comments: TAKE ONE TABLET BY MOUTH DAILY albuterol sulfate 90 mcg/actuation HFA aerosol inhaler 2 puff inhalation Q4H PRN (Reason: shortness of breath or wheezing) Qty: 8.5 0RF No Action (DME) lancets [Lancets,Ultra Thin] Misc See Rx Instructions .Route Qty: 200 0RF Rx Instructions: As directed (DME) pen needle, diabetic 31 gauge x 1/6 needle See Rx Instructions .Route Qty: 100 0RF Rx Instructions: for insulin administration daily Referrals / Follow Up: Heladio Edwards MD [Primary Care Provider] - Disposition Disposition (needs filled in before D/C Order can be placed): Nursing Home Facility
--- NOTE | 2022-03-21 10:38 | DS.PCM_ITS ---
Documented by User: ORA Lofton 03/21/22 10:40 Providers Date of Admission: 03/15/22 Date of Discharge: 03/21/22 Primary Care Physician: Dr. Heladio Edwards MD Reason For Visit: ACUTE COPD EXACERBATION Diagnosis Discharge Diagnosis (1) COPD exacerbation: Status: Chronic Code(s): J44.1 - Chronic obstructive pulmonary disease with (acute) exacerbation Plan 1. COPD exacerbation -Continue scheduled and prn breathing treatments -Continue IV Solumedrol -Continue Cefdinir -Oxygen per protocol, currently on 2.5L n/c, baseline 2.5L -Continue Trilogy QHS 2. Heartburn -Famotidine 20mg PO daily 3. Diabetes Mellitus Type II -ACHS blood sugar checks with SSI -Diet controlled at home, not currently on medication 3. CAD -Continue aspirin, clopidogrel, and atorvastatin 4. Anxiety -Continue sertraline and trazodone 5. RLS -Continue ropinirole and pramipexole DVT prophylaxis- SQ Lovenox This patient was seen by ORA Lofton under the supervision of Dr. Fountain. Medications at Discharge Home Medications pramipexole 1.5 mg tablet 1.5 mg PO QHS restless legs 06/12/14 trazodone 100 mg tablet 100 mg PO QHS sleep 06/12/14 ropinirole 2 mg tablet 2 mg PO QHS restless legs 10/20/15 umeclidinium 62.5 mcg/actuation blister powder for inhalation 1 puff inhalation DAILY breathing 08/29/20 furosemide 20 mg tablet 20 mg PO DAILY water pill 03/17/21 ibandronate 150 mg tablet 150 mg PO QMONTH 04/19/21 atorvastatin 80 mg tablet 80 mg PO QHS cholesterol 10/20/21 clopidogrel 75 mg tablet 75 mg PO DAILY blood thinner 10/20/21 fluticasone furoate 100 mcg-vilanterol 25 mcg/dose inhalation powder (Breo Ellipta) 1 inh inhalation DAILY sob 10/20/21 aspirin 81 mg chewable tablet 81 mg PO BREAKFAST 30 days #30 tabs 10/27/21 sertraline 50 mg tablet 50 mg PO DAILY anxiety 02/25/22 albuterol sulfate 90 mcg/actuation aerosol inhaler 2 puff inhalation Q4H PRN shortness of breath or wheezing #8.5 grams 02/26/22 lancets (Lancets,Ultra Thin) #200 ea 02/26/22 pen needle, diabetic 31 gauge x 1/6 #100 ea 02/26/22 famotidine 20 mg tablet 20 mg PO DAILY #0 tabs 03/21/22 guaifenesin 600 mg tablet, extended release 12 hr (Mucus Relief ER) 600 mg PO BID #0 tabs 03/21/22 prednisone 10 mg tablet See Taper PO BREAKFAST #30 tabs 03/21/22 Hospital Course Operations None Procedures None Summary of Care Provided Minutes Spent on Discharge: 35 Hospital Course: Is a 71-year-old female who initially presented to the ER with shortness of breath and weakness. Patient had recently been discharged home following a COPD exacerbation. Patient was admitted for COPD exacerbation. Patient was seen by PT and OT while she was here and patient was concerned that she cannot go home in her current state as she cannot take care of herself well and she has had multiple readmissions to the hospital for her COPD. Patient will be discharged to [facility] for PT and OT. Physical Exam Const alert, oriented x3 and no apparent distress HEENT head/scalp atraumatic and moist oral mucous membranes Eyes conjunctivae normal and no scleral icterus Neck no lymphadenopathy and supple Resp normal respiratory effort Effort and Inspection: able to speak in complete sentences and symmetric chest movement Auscultation: rhonchi throughout Cardio regular rate, regular rhythm, S1 normal heart sound and S2 normal heart sound GI normal to inspection, nondistended, normoactive bowel sounds, soft to palpation and non-tender Extremity normal to inspection, full ROM and no clubbing, cyanosis or edema Neuro oriented x3, moves all extremities, no focal motor deficits and no sensory deficits noted Psych affect normal Weight / BMI Weight Weight: 197 lb 15.602 oz Body Mass Index (BMI) 35.0 ABG / Lab / Microbiology Data Result Diagrams: 03/21/22 06:35 03/21/22 06:35 Laboratory: Laboratory Results - last 24 hr 03/20/22 11:18: POC Glucose 273 H 03/20/22 16:18: POC Glucose 262 H 03/20/22 22:38: POC Glucose 228 H 03/21/22 06:25: POC Glucose 132 H 03/21/22 06:35: WBC 13.1 H, RBC 4.31, Hgb 12.2, Hct 38.5, MCV 89.3, MCH 28.3, MCHC 31.7 L, RDW Std Deviation 53.4 H, RDW Coeff of Doretha 16.2 H, Plt Count 335, MPV 9.6, Immature Gran % (Auto) 4.400 H, Neut % (Auto) 60.6, Lymph % (Auto) 24.9, [place] % (Auto) 8.2, Eos % (Auto) 1.1, Baso % (Auto) 0.8, Absolute Neuts (auto) 7.9 H, Absolute Lymphs (auto) 3.27, Nucleated RBC % 0 03/21/22 06:35: Sodium 136, Potassium 4.1, Chloride 103, Carbon Dioxide 29.0, Anion Gap 4 L, BUN 35 H, Creatinine 0.71, Estim Creat Clear Calc 41.45, Est GFR (MDRD) Af Amer 103, Est GFR (MDRD) Non-Af 85, BUN/Creatinine Ratio 49.1 H, Glucose 116 H, Calcium 8.4 L, Total Bilirubin 0.40, AST 15, ALT 27, Alkaline Phosphatase 97, Total Protein 6.1 L, Albumin 2.8 L, Globulin 3.3, Albumin/Glob ulin Ratio 0.8 L Microbiology: Microbiology 03/17/22 15:15 Sputum, Expectorated/Coughed Gram Stain - Final 03/17/22 15:15 Sputum, Expectorated/Coughed Respiratory Culture - Final Mixed normal respiratory kayla. No Streptococcus pneumoniae, beta-hemolytic Streptococcus or Staphylococcus aureus isolated. 03/17/22 05:20 Stool Stool Occult Blood (DAMARI) - Final 03/15/22 16:30 Nasal Secretion SARS-CoV-2 Antigen (Rapid) - Final Meaningful Use Info Meaningful Use Diagnoses (Choose all that apply): None applicable Discharge Plan Admission Admit Date/Time: 03/15/22 19:11 Primary Reason for Your Visit: COPD exacerbation Attending Provider: Felipe Fountain Primary Care Provider: Heladio Edwards Consulting Providers: Cesar Hobbs ; Amauri Patterson Discharge Orders/Prescriptions Prescriptions: New famotidine 20 mg Tablet 20 mg PO DAILY Qty: 0 0RF guaifenesin [Mucus Relief ER] 600 mg Tablet Extended Release 12hr 600 mg PO BID Qty: 0 0RF prednisone 10 mg tablet See Taper PO BREAKFAST Qty: 30 0RF Taper: Prednisone Taper 40 mg WITH BREAKFAST for 3 Days and 0 Hour 30 mg WITH BREAKFAST for 3 Days and 0 Hour 20 mg WITH BREAKFAST for 3 Days and 0 Hour 10 mg WITH BREAKFAST for 3 Days and 0 Hour Continued umeclidinium 62.5 mcg/actuation blister with device 1 puff INHALATION DAILY trazodone 100 MG tablet 100 mg PO QHS Label Comments: sleep pramipexole 1.5 MG tablet 1.5 mg PO QHS Label Comments: parkinson's disease/restless legs ropinirole 2 MG tablet 2 mg PO QHS Label Comments: parkinson's disease/restless leg furosemide 20 mg tablet 20 mg PO DAILY ibandronate 150 mg tablet 150 mg PO QMONTH atorvastatin 80 mg tablet 80 mg PO QHS Label Comments: Take 1 tablet by mouth at bedtime clopidogrel 75 mg tablet 75 mg PO DAILY Label Comments: TAKE ONE TABLET BY MOUTH DAILY fluticasone furoate-vilanterol [Breo Ellipta] 100-25 mcg/dose blister with device 1 inh INHALATION DAILY Label Comments: inhale 1 inhalation as instructed once daily aspirin 81 mg Tablet,Chewable 81 mg PO BREAKFAST 30 Days Qty: 30 0RF sertraline 50 mg tablet 50 mg PO DAILY Label Comments: TAKE ONE TABLET BY MOUTH DAILY albuterol sulfate 90 mcg/actuation HFA aerosol inhaler 2 puff inhalation Q4H PRN (Reason: shortness of breath or wheezing) Qty: 8.5 0RF No Action (DME) lancets [Lancets,Ultra Thin] Misc See Rx Instructions .Route Qty: 200 0RF Rx Instructions: As directed (DME) pen needle, diabetic 31 gauge x 1/6 needle See Rx Instructions .Route Qty: 100 0RF Rx Instructions: for insulin administration daily Referrals / Follow Up: Heladio Edwards MD [Primary Care Provider] - Disposition Disposition (needs filled in before D/C Order can be placed): Custodial Facility Documented by User: Dr. Felipe Fountain, 07/27/22 19:54 Providers Date of Admission: 03/15/22 Reason For Visit: ACUTE COPD EXACERBATION Diagnosis Discharge Diagnosis (1) COPD exacerbation: Status: Chronic Code(s): J44.1 - Chronic obstructive pulmonary disease with (acute) exacerbation Medications at Discharge Home Medications pramipexole 1.5 mg tablet 1.5 mg PO QHS restless legs 06/12/14 trazodone 100 mg tablet 100 mg PO QHS sleep 06/12/14 ropinirole 2 mg tablet 2 mg PO QHS restless legs 10/20/15 umeclidinium 62.5 mcg/actuation blister powder for inhalation 1 puff inhalation DAILY breathing 08/29/20 furosemide 20 mg tablet 20 mg PO DAILY water pill 03/17/21 ibandronate 150 mg tablet 150 mg PO QMONTH 04/19/21 atorvastatin 80 mg tablet 80 mg PO QHS cholesterol 10/20/21 clopidogrel 75 mg tablet 75 mg PO DAILY blood thinner 10/20/21 fluticasone furoate 100 mcg-vilanterol 25 mcg/dose inhalation powder (Breo Ellipta) 1 inh inhalation DAILY sob 10/20/21 aspirin 81 mg chewable tablet 81 mg PO BREAKFAST 30 days #30 tabs 10/27/21 sertraline 50 mg tablet 50 mg PO DAILY anxiety 02/25/22 albuterol sulfate 90 mcg/actuation aerosol inhaler 2 puff inhalation Q4H PRN shortness of breath or wheezing #8.5 grams 02/26/22 lancets (Lancets,Ultra Thin) #200 ea 02/26/22 pen needle, diabetic 31 gauge x 1/6 #100 ea 02/26/22 famotidine 20 mg tablet 20 mg PO DAILY #0 tabs 03/21/22 guaifenesin 600 mg tablet, extended release 12 hr (Mucus Relief ER) 600 mg PO BID #0 tabs 03/21/22 prednisone 10 mg tablet See Taper PO BREAKFAST #30 tabs 03/21/22 ABG / Lab / Microbiology Data Result Diagrams: 03/21/22 06:35 03/21/22 06:35 Discharge Plan Admission Admit Date/Time: 03/15/22 19:11 Primary Reason for Your Visit: COPD exacerbation Attending Provider: Felipe Fountain Primary Care Provider: Heladio Edwards Consulting Providers: Cesar Hobbs ; Amauri Patterson Discharge Orders/Prescriptions Prescriptions: New famotidine 20 mg Tablet 20 mg PO DAILY Qty: 0 0RF guaifenesin [Mucus Relief ER] 600 mg Tablet Extended Release 12hr 600 mg PO BID Qty: 0 0RF prednisone 10 mg tablet See Taper PO BREAKFAST Qty: 30 0RF Taper: Prednisone Taper 40 mg WITH BREAKFAST for 3 Days and 0 Hour 30 mg WITH BREAKFAST for 3 Days and 0 Hour 20 mg WITH BREAKFAST for 3 Days and 0 Hour 10 mg WITH BREAKFAST for 3 Days and 0 Hour Continued umeclidinium 62.5 mcg/actuation blister with device 1 puff INHALATION DAILY trazodone 100 MG tablet 100 mg PO QHS Label Comments: sleep pramipexole 1.5 MG tablet 1.5 mg PO QHS Label Comments: parkinson's disease/restless legs ropinirole 2 MG tablet 2 mg PO QHS Label Comments: parkinson's disease/restless leg furosemide 20 mg tablet 20 mg PO DAILY ibandronate 150 mg tablet 150 mg PO QMONTH atorvastatin 80 mg tablet 80 mg PO QHS Label Comments: Take 1 tablet by mouth at bedtime clopidogrel 75 mg tablet 75 mg PO DAILY Label Comments: TAKE ONE TABLET BY MOUTH DAILY fluticasone furoate-vilanterol [Breo Ellipta] 100-25 mcg/dose blister with device 1 inh INHALATION DAILY Label Comments: inhale 1 inhalation as instructed once daily aspirin 81 mg Tablet,Chewable 81 mg PO BREAKFAST 30 Days Qty: 30 0RF sertraline 50 mg tablet 50 mg PO DAILY Label Comments: TAKE ONE TABLET BY MOUTH DAILY albuterol sulfate 90 mcg/actuation HFA aerosol inhaler 2 puff inhalation Q4H PRN (Reason: shortness of breath or wheezing) Qty: 8.5 0RF No Action (DME) lancets [Lancets,Ultra Thin] Misc See Rx Instructions .Route Qty: 200 0RF Rx Instructions: As directed (DME) pen needle, diabetic 31 gauge x 1/6 needle See Rx Instructions .Route Qty: 100 0RF Rx Instructions: for insulin administration daily Referrals / Follow Up: Heladio Edwards MD [Primary Care Provider] - Disposition Disposition (needs filled in before D/C Order can be placed): Custodial Facility Charges/Coding Addendum Addendum: Was seen and examined today independently of Yolanda Cruz, we have approval for the patient to go to a [facility] facility today, she appears medically stable for discharge at this time. Patient is not complaining of any shortness of breath, she is currently on nasal cannula oxygen. On examination she appeared in good health and spirits, she does not appear to be in any distress. Vital signs as documented. Skin warm and dry and without overt rashes. Neck without JVD, thyroid appears normal, trachea is midline, neck is supple. Lungs clear, normal air movement was noted. Heart exam notable for regular rhythm, normal sounds and absence of murmurs, rubs or gallops. Abdomen unremarkable and without evidence of organomegaly, masses, or abdominal aortic enlargement, bowel sounds are present in all 4 quadrants, no abdominal tenderness was noted. Extremities nonedematous, no cyanosis was noted, no club vi was noted. Neuro: Cranial nerves II through XII are grossly intact, no focal motor deficits were noted, sensation to light touch and pinprick is intact, motor exam 5/5 throughout. Psych: Patient is alert and oriented x3, she does not appear anxious or depressed, she does not appear agitated. Impression:#1 acute exacerbation of COPD-continue present treatment, patient is stable for discharge to an extended care facility for inpatient rehab services at this time. #2 chronic hypoxic respiratory failure-patient is currently 2.5 L O2 via nasal cannula #3 acute debility-patient will need placement in a [facility]p facility if it is allowed by her insurance carrier #4 chronic depression-patient is on Zoloft #5 hyperlipidemia-patient is on Lipitor #6 type 2 diabetes-patient's blood sugars will be monitored, sliding scale insulin will be used as needed I have reviewed Yolanda Cespedesbran's discharge summary including her medical assessment and plan of care and with the above additions endorse it. Total clinical time spent by myself addressing the patient's medical issues, reviewing her data, and collaborating with her care team: 25 minutes Visit Charges Inpatient E&M: [id number] Disch Hosp
--- NOTE | 2022-03-21 11:08 | PHA.DC.MR ---
Pharmacy Service has performed discharge medication reconciliation for this patient. The patient's discharge medication list was reviewed for discrepancies and discrepancies were resolved. Pt fills both ropinirole and pramipexole regularly. Same prescriber. Home Medications pramipexole 1.5 mg tablet 1.5 mg PO QHS restless legs 06/12/14 trazodone 100 mg tablet 100 mg PO QHS sleep 06/12/14 ropinirole 2 mg tablet 2 mg PO QHS restless legs 10/20/15 umeclidinium 62.5 mcg/actuation blister powder for inhalation 1 puff inhalation DAILY breathing 08/29/20 furosemide 20 mg tablet 20 mg PO DAILY water pill 03/17/21 ibandronate 150 mg tablet 150 mg PO QMONTH 04/19/21 atorvastatin 80 mg tablet 80 mg PO QHS cholesterol 10/20/21 clopidogrel 75 mg tablet 75 mg PO DAILY blood thinner 10/20/21 fluticasone furoate 100 mcg-vilanterol 25 mcg/dose inhalation powder (Breo Ellipta) 1 inh inhalation DAILY sob 10/20/21 aspirin 81 mg chewable tablet 81 mg PO BREAKFAST 30 days #30 tabs 10/27/21 sertraline 50 mg tablet 50 mg PO DAILY anxiety 02/25/22 albuterol sulfate 90 mcg/actuation aerosol inhaler 2 puff inhalation Q4H PRN shortness of breath or wheezing #8.5 grams 02/26/22 lancets (Lancets,Ultra Thin) #200 ea 02/26/22 pen needle, diabetic 31 gauge x 1/6 #100 ea 02/26/22 famotidine 20 mg tablet 20 mg PO DAILY #0 tabs 03/21/22 guaifenesin 600 mg tablet, extended release 12 hr (Mucus Relief ER) 600 mg PO BID #0 tabs 03/21/22 prednisone 10 mg tablet See Taper PO BREAKFAST #30 tabs 03/21/22
--- NOTE | 2022-03-21 11:13 | CASEMGMT ---
TC to [facility], spoke with Jimmie, she is aware that pt is dc'ing to [facility] today.
--- NOTE | 2022-03-21 11:53 | CASEMGMT ---
Addendum entered by Justa Jones 03/21/22 12:18: SW place pc to Direction manager of security, Nanda Salazar, to update her on pt discharge. SW left message to inform Nanda that pt will be discharged today to [facility]. VANESA encouraged Nanda to call back if she has questions. MEHDI Lam Original Note: Social Work SW met with Pt to inform her of acceptance to [facility]. Pt was happy for this news. SW asked Pt for consent to call pt daughter back as she had left a voicemail this morning. Pt was agreeable and shared daughter will be transporting her to the SNF when she is discharged so she can go home to get comfort items. VANESA called pt Daughter, Camille, to return the call and update her on her mom's discharge. Camille was agreeable to transporting her mother to [facility]. VANESA informed her she would need to bring portable oxygen tank to do so and Camille was agreeable. MEHDI Lam
[2022-03-21] MEDS: Insulin Lispro 100 UNIT/ML INSULN.PEN SC (12:13)
[2022-03-21 12:31] LABS: Bedside Glucose 180 mg/dL (74-106)
--- NOTE | 2022-03-21 14:23 | CASEMGMT ---
Social Work DONNA completed 7000 exemption and gathered discharge orders and Covid-19 test results. Orders faxed to Hollie at [facility].?Donna called pt daughter to inform of discharge and she stated she would be able to pick and shovel man pt around 3:00pm. DONNA then called Hollie to inform that pt was discharging and that her dgt would be transporting her to the facility. Pt sleeping when SW went to inform her so DONNA talked with pt nurse to inform her when pt daughter would be arriving. MEHDI Lam
== END 2022-03-21 15:36 | DRG 191 ==
LOC: ED 19:34 → MS3 19:44
PROVIDERS: Family Medicine; Nurse Practitioner Family; Admitting Provider Hospitalist; Emergency Provider Emergency Medicine; PCP Family Medicine; Visit Provider Internal Medicine
DX: J44.1 Chronic obstructive pulmonary disease with (acute) exacerbation (principal); J96.11 Chronic respiratory failure with hypoxia; I50.32 Chronic diastolic (congestive) heart failure; E11.65 Type 2 diabetes mellitus with hyperglycemia; I25.10 Atherosclerotic heart disease of native coronary artery without angina pectoris; E78.5 Hyperlipidemia, unspecified; R12 Heartburn; G25.81 Restless legs syndrome; F41.9 Anxiety disorder, unspecified; I25.2 Old myocardial infarction; Z99.81 Dependence on supplemental oxygen; E66.9 Obesity, unspecified; G89.4 Chronic pain syndrome; R53.81 Other malaise; F32.A Depression, unspecified; R60.0 Localized edema; Z68.35 Body mass index [BMI] 35.0-35.9, adult; Z95.5 Presence of coronary angioplasty implant and graft; Z79.02 Long term (current) use of antithrombotics/antiplatelets; Z79.82 Long term (current) use of aspirin; Z79.83 Long term (current) use of bisphosphonates; Z79.899 Other long term (current) drug therapy; Z85.118 Personal history of other malignant neoplasm of bronchus and lung; Z86.711 Personal history of pulmonary embolism; Z87.891 Personal history of nicotine dependence
CPT/HCPCS: 36415; 71045; 80048; 80053; 82274; 82962; 83880; 84484; 85014; 85018; 85025; 85379; 87070; 87205; 87426; 87811; 93005; 94640; 94667; 94668; 94762; 97110; 97116; 97162; 97165; 97530; 97535; 99251; 99285; A4216; G0463

== ENCOUNTER → 2022-03-23 | Outpatient (REF) | payer SELFPAY ==
[2022-03-23 09:04] LABS: Hematocrit 34.5 % (37-47); Hemoglobin 11.1 g/dL (12.0-15.0); Mean Corp Hgb Conc 32.2 g/dL (32-36); Mean Corpuscular Hgb 28.7 pg (27.0-32.0); Mean Corpuscular Volume 89.1 fL (81-99); Mean Platelet Vol. 9.9 fl (6.2-12.0); Platelet Count 305 K/mm3 (150-450); RBC Distribution Width CV 16.6 % (11.6-14.6); RBC Distribution Width SD 53.8 fl (35.1-43.9); Red Blood Count 3.87 M/mm3 (4.2-5.4); White Blood Count 12.2 K/mm3 (4.4-11.0)
[2022-03-23 09:35] LABS: Anion Gap 4 (5-15); BUN 28 mg/dL (7-18); BUN/Creat Ratio 43.3 RATIO (10-20); Calcium,Total 8.2 mg/dL (8.5-10.1); Chloride 106 mmol/L (98-107); Creatinine, Serum 0.65 mg/dL (0.55-1.02); EST Glomerular Filtration Rate 96 mL/min (>60); Est Glom Filt Rate - Afr Amer 116 mL/min (>60); Glucose 113 mg/dL (74-106); Potassium 4.2 mmol/L (3.5-5.1); Sodium Level 138 mmol/L (136-145)
== END | disposition home or self-care (01) ==
LOC: OLS.SW1020 05:00
PROVIDERS: PCP Family Medicine; Visit Provider Family Medicine
DX: E11.9 Type 2 diabetes mellitus without complications (principal); J44.1 Chronic obstructive pulmonary disease with (acute) exacerbation
CPT/HCPCS: 36415; 80048; 85027

== ENCOUNTER 2022-04-25 11:59 | Observation (INO) | payer MEDICARE, MEDICAID, SELFPAY ==
[2022-04-25] VITALS (9 sets, daily range): BP systolic 116–160; BP diastolic 47–79; PULSE 71–83; RESP 15–30; TEMP 36.5–36.8; O2SAT 93–100; BMI 35.9; BMI 35.7
--- NOTE | 2022-04-25 12:51 | EKG12_ITS ---
Test Reason : SOB Blood Pressure : / mmHG Vent. Rate : 070 BPM Atrial Rate : 070 BPM P-R Int : 204 ms QRS Dur : 090 ms QT Int : 434 ms P-R-T Axes : 067 047 060 degrees QTc Int : 468 ms Normal sinus rhythm Nonspecific T wave abnormality Abnormal ECG Confirmed by GINO RUSHING, JANNETTE ([id number]), book editor AYANNA LORENZO ([id number]) on 04/27/2022 2:03:16 PM Referred By: RHONDA Confirmed By:KAMI CHRISTIAN MD
--- NOTE | 2022-04-25 12:51 | RAD_ITS ---
STUDY: X-RAY CHEST REASON FOR EXAM: Female, 71 years old. Chest pain TECHNIQUE: Single AP portable view of the chest. COMPARISON: Comparison is made with prior study dated 03/15/2022. FINDINGS: EKG electrodes are seen. Hyperinflation. Stable mild increased linear markings at the lung bases suggestive of a mild degree of scarring. There is no demonstrated pleural abnormality. There is borderline cardiomegaly. Normal mediastinum and fortino. Normal visualized pulmonary arteries. There is atherosclerotic calcification of the aortic arch with tortuosity. There are diffuse degenerative changes of the visualized thoracic spine. Prior vertebral plasty of mid dorsal vertebrae. Normal visualized ribs, clavicles, and shoulders. There is no demonstrated abnormality of the visualized soft tissue structures of the upper abdomen. RAD/Chest 1 View (Portable) IMPRESSION: Hyperinflation. Stable mild degree of increased markings at the lung bases suggestive of scarring. Electronically Signed: Dion Orourke MD at 13:34 EDT ,
--- NOTE | 2022-04-25 12:52 | ED.VIS.DYS ---
HPI History of Present Illness Chief Complaint: Shortness of Breath Informant: patient Onset/Context/Timing Onset: Month(s) Context: gradual Timing: Continuous Quality: Positive for Dyspnea on exertion Current Severity: Mild Maximum Severity: Mild Worsened by: Exertion Relieved by: Rest Associated Symptoms Negative for cough, rhinorrhea, post nasal drip, ear pain, fever, sore throat, chills, sweats, clear sputum or green sputum Chest Pain: Positive for None Narrative Narrative: 71-year-old female history of prior lung cancer resected in 2013, diabetes, COPD, CHF, HI with stents. Prior DVT. She is on Plavix. States she has been short of breath the last 2 months she is on home oxygen 2-1/2 L which she has been able to keep on her normal 2 and half liters. Her pulse ox is been running 95 to 98% on home O2. States her shortness of breath is worse with exertion. She is had minimal swelling to her feet. She is on diuretic furosemide. Denies vomiting, diarrhea or melena. Denies fever. Denies any hemoptysis nor any chest pain. PE Risk Factors: Positive for Prior DVT or PE; Negative for Cancer, OCP + Smoking + > 35, Recent immobilization, Recent surgery or Recent travel Prior similar symptoms: Yes Recent Illness/Hospitalization: No PFSH PFSH Medical History Asthma BiPAP (biphasic positive airway pressure) dependence Chronic pain Chronic respiratory failure with hypoxia Congestive heart failure (CHF) COPD (chronic obstructive pulmonary disease) Coronary artery disease Diabetes DVT (deep venous thrombosis) Former smoker Knee arthropathy Lung cancer Myocardial infarct On home oxygen therapy Osteoporosis Pulmonary embolism Tobacco abuse Home Medications pramipexole 1.5 mg tablet 1.5 mg PO QHS restless legs 06/12/14 [History Last Taken 03/14/22] trazodone 100 mg tablet 100 mg PO QHS sleep 06/12/14 [History Last Taken 03/14/22] ropinirole 2 mg tablet 2 mg PO QHS restless legs 10/20/15 [History Last Taken 03/14/22] umeclidinium 62.5 mcg/actuation blister powder for inhalation 1 puff inhalation DAILY breathing 08/29/20 [History Last Taken 03/15/22] furosemide 20 mg tablet 20 mg PO DAILY water pill 03/17/21 [History Last Taken 03/15/22] ibandronate 150 mg tablet 150 mg PO QMONTH 04/19/21 [History Last Taken 09/27/21] atorvastatin 80 mg tablet 80 mg PO QHS cholesterol 10/20/21 [History Last Taken 03/14/22] clopidogrel 75 mg tablet 75 mg PO DAILY blood thinner 10/20/21 [History Last Taken 03/15/22] fluticasone furoate 100 mcg-vilanterol 25 mcg/dose inhalation powder (Breo Ellipta) 1 inh inhalation DAILY sob 10/20/21 [History Last Taken 03/15/22] aspirin 81 mg chewable tablet 81 mg PO BREAKFAST 30 days #30 tabs 10/27/21 [Rx Last Taken 03/15/22] sertraline 50 mg tablet 50 mg PO DAILY anxiety 02/25/22 [History Last Taken 03/15/22] albuterol sulfate 90 mcg/actuation aerosol inhaler 2 puff inhalation Q4H PRN shortness of breath or wheezing #8.5 grams 02/26/22 [Rx Last Taken 03/15/22] lancets (Lancets,Ultra Thin) #200 ea 02/26/22 [Rx Last Taken Unknown] pen needle, diabetic 31 gauge x 1/6 #100 ea 02/26/22 [Rx Last Taken Unknown] famotidine 20 mg tablet 20 mg PO DAILY #0 tabs 03/21/22 [Rx Last Taken Unknown] guaifenesin 600 mg tablet, extended release 12 hr (Mucus Relief ER) 600 mg PO BID #0 tabs 03/21/22 [Rx Last Taken Unknown] prednisone 10 mg tablet See Taper PO BREAKFAST #30 tabs 03/21/22 [Rx Last Taken Unknown] azithromycin 250 mg tablet 250 mg 04/25/22 [History Last Taken Unknown] Allergy/AdvReac Type Severity Reaction Status Date / Time bupropion HCl Allergy Hives Verified 02/24/22 21:44 [From Wellbutrin] gabapentin [From Neurontin] Allergy Hives Verified 02/24/22 21:44 moxifloxacin HCl Allergy Hives Verified 02/24/22 21:44 [From Avelox] Family History Mother COPD (chronic obstructive pulmonary disease) Cancer Diabetes Heart disease Father COPD (chronic obstructive pulmonary disease) Cancer Diabetes Heart disease Surgical History H/O hand surgery H/O heart artery stent H/O knee surgery H/O: hysterectomy History of back surgery Status post lobectomy of lung Social History household members: none Smoking Status: Light Smoker (<10/day) how long ago did patient quit smoking: Quit tobacco use ~ 3 months prior 11/2021. alcohol intake: never substance use type: does not use ROS ROS ED ROS Narrative Shortness of breath. Review of Systems ROS Unobtainable: Denies due to encephalopathy Constitutional Constitutional ED: Denies chills or fever(s) Eyes Eyes: Denies blurry vision ENT ENT ED: Denies ear pain Cardiovascular Cardiovascular: Denies orthopnea Respiratory/Chest Respiratory/Chest: Reports dyspnea and dyspnea on exertion; Denies cough or orthopnea Gastrointestinal Gastrointestinal: Denies abdominal pain Genitourinary Genitourinary ED: Denies dysuria or hematuria Musculoskeletal Musculoskeletal: Denies arthralgias Integumentary Denies abscess Neurologic Neurologic: Denies headache(s) Psychiatric Psychiatric: Denies anxiety Endocrine Endocrinology: Denies cold intolerance Hematologic/Lymphatic Hematologic/Lymphatic: Denies easy bleeding Allergic/Immunologic Allergic/Immunologic ED: Denies mouth swelling or tongue swelling EXAM Physical Exam Narrative Exam Narrative: 71-year-old female lying in bed. Vital signs are stable afebrile. Pulse ox 90% on 3 L no hypoxia on oxygen. She does not look septic or toxic no distress. Family at bedside. H EENT exam unremarkable. Moist remembers. Neck nontender no JVD. No lymphadenopathy. Lungs clear to auscultation. Heart regular rhythm rate about 74 no murmur. Abdomen soft nontender normal bowel sounds no peritoneal signs. Moving all 4 extremities. Trace edema to right ankle. Calves nontender without cords. Neurologically she is awake and alert. Moving all 4 extremities. Normal motor strength. Const Vital Signs: 04/25/22 11:59 04/25/22 12:29 04/25/22 15:20 Temperature 98.1 F Temperature Source Oral Pulse Rate 74 79 Respiratory Rate 15 30 H Respiratory Effort Short of Breath Labored Respiratory Pattern Tachypnea Blood Pressure 152/68 H 131/73 H Blood Pressure Mean 96 92 Pulse Ox 98 99 Oxygen Delivery Method Nasal Cannula Nasal Cannula Nasal Cannula Oxygen Flow Rate (L/min) 3 3 2 Positive well nourished, well developed and obese; Negative for cachectic, contractures or unkempt General Appearance ED: well developed and NAD; Negative for unkempt, cachectic, contractures or pallor Nutritional Appearance: obese; Negative for cachectic HEENT Reports moist mucous membranes; Denies dry mucous membranes atraumatic; Negative for trauma or tenderness Mouth ED: No dry mucous membranes Mouth: No dry mucous membranes Eyes PERRL and EOMs intact bilaterally General Eye ED: Negative for pale conjunctiva or scleral icterus Neck no lymphadenopathy, supple, no meningeal signs and no JVD General: Negative for tenderness Lymph Lymphatic: Negative for other Resp normal respiratory effort and clear to auscultation bilaterally Effort and Inspection: Negative for pain with movement Auscultation: Negative for rales, rhonchi or wheezes Cardio regular rate, regular rhythm, S1 normal heart sound, S2 normal heart sound and no murmurs Rate: Negative for bradycardia Rhythm: Negative for abnormal rhythm GI non-tender, non-distended and no masses Inspection: Negative for other Auscultation: normoactive bowel sounds Palpation: soft; Negative for tender Back/Spine no CVA tenderness and normal to inspection General Back: Negative for CVA tenderness Extremity normal to inspection Extremity Narrative: Trace ankle edema. Nontender calves. No cords. General Extremety ED: Yes edema; Negative for tenderness General Extremity: edema Neuro oriented x3 and CN's II-XII intact bilaterally Sensorium / Orientation: alert, oriented to person, oriented to place and oriented to time; Negative for orientation impaired, confused, lethargic or stuporous Speech: speech normal Motor Exam: strength 5/5 throughout Psych mental status grossly normal Appearance: Negative for unkempt Attitude: No agitated Mood & Affect: Negative for depressed or anxious Thought Process: normal thought process Skin no wounds General Skin Exam: Negative for jaundice or pallor Lesions: no lesions Rashes: no rashes Trauma: Negative for abrasion or laceration MDM MDM MDM Narrative Medical decision making narrative: 71-year-old with 2-month history of shortness of breath. Her pulse ox has been good on her oxygen at home. She undergo a cardiac work-up with a BNP. Repeat exam patient is while lying in bed we will try to get up and walk her on 3 L she got very short of breath, fatigue and could not even make it outside of the room. Her pulse ox dropped to the mid to low 80s. And she was obviously dyspneic with Respiratory rate. He spoke to the hospitalist will be down to admit her. He did request that I get obtain a CTA. Lab Data Attestation: I reviewed the patient's lab results. Lab results narrative: CBC shows a white count 9.1. H&H 11.3 and 36. Platelets 298. Electrolytes gap of 3 normal BUN and creatinine. Glucose 132. Troponin 7. BNP is only 15. Troponin is 8.. The prior labs these are her baseline no significant change. Her anemia is actually improved. Labs: Laboratory Results - last 24 hr 04/25/22 04/25/22 04/25/22 12:54 12:54 12:54 WBC 9.1 RBC 3.99 L Hgb 11.3 L Hct 36.3 L MCV 91.0 MCH 28.3 MCHC 31.1 L RDW Std Deviation 49.8 H RDW Coeff of Doretha 15.0 H Plt Count 298 MPV 10.1 Immature Gran % (Auto) 0.400 Neut % (Auto) 65.7 Lymph % (Auto) 26.7 [place] % (Auto) 6.2 Eos % (Auto) 0.8 Baso % (Auto) 0.2 Absolute Neuts (auto) 6.0 Absolute Lymphs (auto) 2.44 Nucleated RBC % 0 Sodium 140 Potassium 3.6 Chloride 107 Carbon Dioxide 30.0 Anion Gap 3 L BUN 9 Creatinine 0.63 Estim Creat Clear Calc 41.45 Est GFR (MDRD) Af Amer 120 Est GFR (MDRD) Non-Af 99 BUN/Creatinine Ratio 14.4 Glucose 132 H Calcium 8.9 Troponin I High Sens 7 B-Natriuretic Peptide 15.4 04/25/22 15:11 WBC RBC Hgb Hct MCV MCH MCHC RDW Std Deviation RDW Coeff of Doretha Plt Count MPV Immature Gran % (Auto) Neut % (Auto) Lymph % (Auto) [place] % (Auto) Eos % (Auto) Baso % (Auto) Absolute Neuts (auto) Absolute Lymphs (auto) Nucleated RBC % Sodium Potassium Chloride Carbon Dioxide Anion Gap BUN Creatinine Estim Creat Clear Calc Est GFR (MDRD) Af Amer Est GFR (MDRD) Non-Af BUN/Creatinine Ratio Glucose Calcium Troponin I High Sens 8 B-Natriuretic Peptide Radiography Chest X-Ray - ED: 1 View, Read by ED Physician, Read by Radiologist, Heart, Lungs, Mediastinum, Bony Structures, No Acute Disease and Chronic Changes Diagnostic Testing: Clinical Impression(s) from Imaging Studies Chest X-Ray 04/25/22 12:51 IMPRESSION: Hyperinflation. Stable mild degree of increased markings at the lung bases suggestive of scarring. Electronically Signed: Dion Orourke MD at 13:34 EDT , Chest x-ray, portable, single view interpreted by myself and radiologist shows chronic changes no acute process. No pneumonia. No CHF. Rhythm Strip Rhythm Strip: Sinus Rhythm Rate: 70 Ectopy: None EKG Initial EKG: Attestation: I personally reviewed and interpreted this EKG as follows: Interpretation: Sinus Rhythm Comments: Normal sinus rhythm rate of 70 no acute signs of HI or ischemia. Discharge Plan Triage Chief Complaint: Shortness of Breath ED Provider: Moises Stiles Dx/Rx/DC Orders Clinical Impression: Acute dyspnea, History of COPD, Hypoxia, History of deep vein thrombosis, History of atherosclerotic heart disease Prescriptions: No Action umeclidinium 62.5 mcg/actuation blister with device 1 puff INHALATION DAILY trazodone 100 MG tablet 100 mg PO QHS Label Comments: sleep pramipexole 1.5 MG tablet 1.5 mg PO QHS Label Comments: parkinson's disease/restless legs ropinirole 2 MG tablet 2 mg PO QHS Label Comments: parkinson's disease/restless leg furosemide 20 mg tablet 20 mg PO DAILY ibandronate 150 mg tablet 150 mg PO QMONTH atorvastatin 80 mg tablet 80 mg PO QHS Label Comments: Take 1 tablet by mouth at bedtime clopidogrel 75 mg tablet 75 mg PO DAILY Label Comments: TAKE ONE TABLET BY MOUTH DAILY fluticasone furoate-vilanterol [Breo Ellipta] 100-25 mcg/dose blister with device 1 inh INHALATION DAILY Label Comments: inhale 1 inhalation as instructed once daily aspirin 81 mg Tablet,Chewable 81 mg PO BREAKFAST 30 Days Qty: 30 0RF sertraline 50 mg tablet 50 mg PO DAILY Label Comments: TAKE ONE TABLET BY MOUTH DAILY albuterol sulfate 90 mcg/actuation HFA aerosol inhaler 2 puff inhalation Q4H PRN (Reason: shortness of breath or wheezing) Qty: 8.5 0RF (DME) lancets [Lancets,Ultra Thin] Misc See Rx Instructions .Route Qty: 200 0RF Rx Instructions: As directed (DME) pen needle, diabetic 31 gauge x 1/6 needle See Rx Instructions .Route Qty: 100 0RF Rx Instructions: for insulin administration daily famotidine 20 mg Tablet 20 mg PO DAILY Qty: 0 0RF guaifenesin [Mucus Relief ER] 600 mg Tablet Extended Release 12hr 600 mg PO BID Qty: 0 0RF prednisone 10 mg tablet See Taper PO BREAKFAST Qty: 30 0RF Taper: Prednisone Taper 40 mg WITH BREAKFAST for 3 Days and 0 Hour 30 mg WITH BREAKFAST for 3 Days and 0 Hour 20 mg WITH BREAKFAST for 3 Days and 0 Hour 10 mg WITH BREAKFAST for 3 Days and 0 Hour azithromycin 250 mg tablet 250 mg Primary Care Provider: Heladio Edwards Referrals: Heladio Edwards MD [Primary Care Provider] -
[2022-04-25 13:04] LABS: Absolute Lymphocyte Count 2.44 X10^3/uL (0.83-4.51); Basophil# 0.02 X10^3/uL; Basophil% 0.2 % (0-1); Eosinophil# 0.07 X10^3/uL; Eosinophils% 0.8 % (0-5); Hematocrit 36.3 % (37-47); Hemoglobin 11.3 g/dL (12.0-15.0); Lymphocyte # 2.44 X10^3/ul (0.83-4.51); Lymphocyte % 26.7 % (19-41); Mean Corp Hgb Conc 31.1 g/dL (32-36); Mean Corpuscular Hgb 28.3 pg (27.0-32.0); Mean Platelet Vol. 10.1 fl (6.2-12.0); Monocyte# 0.57 X10^3/uL; Monocyte% 6.2 % (0-10); NRBC Flagged by Analyzer 0 % (0-5); Neutrophil % 65.7 % (47-70); Platelet Count 298 K/mm3 (150-450); RBC Distribution Width SD 49.8 fl (35.1-43.9); Red Blood Count 3.99 M/mm3 (4.2-5.4); White Blood Count 9.1 K/mm3 (4.4-11.0)
[2022-04-25 13:21] LABS: Anion Gap 3 (5-15); BUN 9 mg/dL (7-18); BUN/Creat Ratio 14.4 RATIO (10-20); Calcium,Total 8.9 mg/dL (8.5-10.1); Chloride 107 mmol/L (98-107); Creatinine, Serum 0.63 mg/dL (0.55-1.02); EST Glomerular Filtration Rate 99 mL/min (>60); Est Glom Filt Rate - Afr Amer 120 mL/min (>60); Estimated Creatinine Clearance 41.45 ml/min; Glucose 132 mg/dL (74-106); Potassium 3.6 mmol/L (3.5-5.1); Sodium Level 140 mmol/L (136-145); Troponin-I HS (w/2H Reflex) 7 pg/mL (3.0-54.0)
[2022-04-25 13:33] LABS: BNP,B-Type NATRIURETIC PEPTIDE 15.4 pg/mL (0-100)
[2022-04-25 15:01] LABS: Reflex Troponin-HS? (from REC) Y
[2022-04-25 15:37] LABS: Troponin-I HS 8 pg/mL (3.0-54.0)
--- NOTE | 2022-04-25 16:11 | CT_ITS ---
STUDY: CTA CHEST REASON FOR EXAM: Female, 71 years old. hypoxia RADIATION DOSAGE (If Supplied By Facility): CTDIvol = ( 14.84 ) mGy, DLP = ( 486.12 ) mGycm TECHNIQUE: The examination was performed with the intravenous administration of IV 100mL [id number]-370. Post-processing of the angiographic images was performed, with multiplanar reformation and 3D reconstruction. Individualized dose optimization techniques were used for this CT. COMPARISON: 05/14/2021 FINDINGS: Normal enhancement of the main pulmonary artery and right and left pulmonary arteries. Normal enhancement of the bilateral peripheral pulmonary arteries. There is no demonstrated pulmonary embolism. Normal thoracic aorta and visualized great vessels. There is no demonstrated aortic dissection. Normal heart and pericardium. Normal mediastinum. Normal hilar regions. Normal visualized trachea and bronchi. The lungs are well expanded. Mild emphysema. No noncalcified nodule or mass. Normal pleura. Normal chest wall structures. Chronic compression fractures of the mid thoracic spine treated with vertebroplasty with kyphosis. Normal visualized upper abdomen. CT/CTA Chest W/WO Contrast IMPRESSION: Normal CTA chest examination, without a demonstrated pulmonary embolism or arterial dissection. Electronically Signed: Dario Burdick MD at 17:05 EDT ,
--- NOTE | 2022-04-25 16:48 | ED.RN ---
daughter Camille called and informed pt is being admitted.
--- NOTE | 2022-04-25 17:16 | HP.PCM.HOS_ITS ---
Documented by User: Sigrid Arguelles NP, [employer] 04/25/22 17:26 HPI - General General Date of Admission: 04/25/22 Date of Service: 04/25/22 Chief Complaint: Shortness of breath. HPI Narrative AVE ANNE, is a 71 F who presents to the emergency room due to worsening shortness of breath over the past week. She reports intermittent nonproductive cough. Denies fever, chills. Denies exposure to sick contacts. Patient is on 2.5 L nasal cannula at baseline and wears trilogy at night. She was recently admitted in February for exacerbation of COPD. She has been using her nebulizer at home for breathing treatments without improvement in symptoms. She denies any aggravating or alleviating factors. She has a past medical history of chronic COPD with chronic hypoxic respiratory failure, type 2 diabetes mellitus, CAD/ischemic cardiomyopathy, hypertension, hyperlipidemia, anxiety/depression, restless leg syndrome, tobacco dependence, history of lung cancer, SHANA. [facility] Medical History Asthma BiPAP (biphasic positive airway pressure) dependence Chronic pain Chronic respiratory failure with hypoxia Congestive heart failure (CHF) COPD (chronic obstructive pulmonary disease) Coronary artery disease Diabetes DVT (deep venous thrombosis) Former smoker Knee arthropathy Lung cancer Myocardial infarct On home oxygen therapy Osteoporosis Pulmonary embolism Tobacco abuse Home Medications pramipexole 1.5 mg tablet 1.5 mg PO QHS restless legs 06/12/14 [History Last Taken 04/24/22] trazodone 100 mg tablet 100 mg PO QHS sleep 06/12/14 [History Last Taken 0 04/24/22] ropinirole 2 mg tablet 2 mg PO QHS restless legs 10/20/15 [History Last Taken 04/24/22] umeclidinium 62.5 mcg/actuation blister powder for inhalation 1 puff inhalation DAILY breathing 08/29/20 [History Last Taken 04/25/22] furosemide 20 mg tablet 20 mg PO DAILY water pill 03/17/21 [History Last Taken 04/25/22] ibandronate 150 mg tablet 150 mg PO QMONTH bones 04/19/21 [History Last Taken 0 03/27/22] atorvastatin 80 mg tablet 80 mg PO QHS cholesterol 10/20/21 [History Last Taken 04/24/22] clopidogrel 75 mg tablet 75 mg PO DAILY blood thinner 10/20/21 [History Last Taken 04/25/22] fluticasone furoate 100 mcg-vilanterol 25 mcg/dose inhalation powder (Breo Ellipta) 1 inh inhalation DAILY sob 10/20/21 [History Last Taken 04/25/22] sertraline 50 mg tablet 50 mg PO DAILY anxiety 02/25/22 [History Last Taken 04/25/22] albuterol sulfate 90 mcg/actuation aerosol inhaler 2 puff inhalation Q4H PRN shortness of breath or wheezing #8.5 grams 02/26/22 [Rx Last Taken 04/25/22] lancets (Lancets,Ultra Thin) #200 ea 02/26/22 [Rx Last Taken Unknown] pen needle, diabetic 31 gauge x 1/6 #100 ea 02/26/22 [Rx Last Taken Unknown] prednisone 10 mg tablet See Taper PO BREAKFAST #30 tabs 03/21/22 [Rx Last Taken Unknown] aspirin 81 mg chewable tablet 81 mg PO BREAKFAST heart health 04/25/22 [History Last Taken 04/25/22] famotidine 20 mg tablet 20 mg PO DAILY PRN gerd 04/25/22 [History Last Taken Unk nown] guaifenesin 600 mg tablet, extended release 12 hr (Mucus Relief ER) 600 mg PO BID PRN Congestion 04/25/22 [History Last Taken Unknown] Allergy/AdvReac Type Severity Reaction Status Date / Time bupropion HCl Allergy Hives Verified 02/24/22 21:44 [From Wellbutrin] gabapentin [From Neurontin] Allergy Hives Verified 02/24/22 21:44 moxifloxacin HCl Allergy Hives Verified 02/24/22 21:44 [From Avelox] Family History Mother COPD (chronic obstructive pulmonary disease) Cancer Diabetes Heart disease Father COPD (chronic obstructive pulmonary disease) Cancer Diabetes Heart disease Surgical History H/O hand surgery H/O heart artery stent H/O knee surgery H/O: hysterectomy History of back surgery Status post lobectomy of lung Social History household members: none Smoking Status: Light Smoker (<10/day) how long ago did patient quit smoking: Quit tobacco use ~ 3 months prior 11/2021. alcohol intake: never substance use type: does not use ROS Constitutional Constitutional: Denies change in weight, chills, fatigue, fever(s) or weakness Cardiovascular Cardiovascular: Denies chest pain, edema, lightheadedness, palpitations or syncope Respiratory/Chest Respiratory/Chest: Reports cough, dyspnea and wheezing; Denies productive cough Gastrointestinal Gastrointestinal: Denies abdominal pain, constipation, diarrhea, nausea or vomiting Genitourinary Genitourinary: Denies burning urination, difficulty urinating, dysuria, hematuria, urinary frequency, urinary incontinence or urinary urgency Musculoskeletal Musculoskeletal: Denies back pain, joint pain or muscle weakness Integumentary Integumentary: Denies erythema, lesions, rash or wounds Neurologic Neurologic: Denies abnormal speech, confusion, dizziness, focal weakness, numbness, paresthesias, seizure-like activity or syncope Psychiatric Psychiatric: Denies anxiety or depression Hematologic/Lymphatic Hematologic/Lymphatic: Denies anemia, easy bleeding or easy bruising Allergic/Immunologic Allergic/Immunologic: Denies hives or asthma Vital Signs Vital Signs Vital Signs: 04/25/22 11:59 04/25/22 12:29 04/25/22 15:20 Temperature 98.1 F Temperature Source Oral Pulse Rate 74 79 Respiratory Rate 15 30 H Respiratory Effort Short of Breath Labored Respiratory Pattern Tachypnea Blood Pressure 152/68 H 131/73 H Blood Pressure Mean 96 92 Pulse Ox 98 99 Oxygen Delivery Method Nasal Cannula Nasal Cannula Nasal Cannula Oxygen Flow Rate (L/min) 3 3 2 04/25/22 16:20 Temperature 98.2 F Temperature Source Temporal Pulse Rate 83 Respiratory Rate 25 H Respiratory Effort Respiratory Pattern Blood Pressure 149/73 H Blood Pressure Mean 98 Pulse Ox 99 Oxygen Delivery Method Nasal Cannula Oxygen Flow Rate (L/min) 2 Weight Weight: 202 lb 9.677 oz Body Mass Index (BMI) 35.9 Physical Exam Const alert and oriented x3 HEENT normocephalic and moist oral mucous membranes Eyes PERRL, EOMs intact bilaterally and conjunctivae normal Neck no lymphadenopathy Resp clear to auscultation bilaterally Auscultation: diminished lung sounds Cardio regular rate, regular rhythm and no murmurs Peripheral Pulses: pulses 2+ throughout GI normal to inspection, nondistended, normoactive bowel sounds, non-tender and non-distended Extremity normal to inspection Skin no rashes or lesions noted Lesions: no lesions Rashes: no rashes Trauma: no lacerations or abrasions Neuro CN's II-XII intact bilaterally, no focal motor deficits, no sensory deficits noted and deep tendon reflexes 2+ bilaterally Psych mental status grossly normal and affect normal Results Lab / Micro Data Result Diagrams: 04/25/22 12:54 04/25/22 12:54 Labs: Laboratory Results - last 24 hr 04/25/22 12:54: WBC 9.1, RBC 3.99 L, Hgb 11.3 L, Hct 36.3 L, MCV 91.0, MCH 28.3, MCHC 31.1 L, RDW Std Deviation 49.8 H, RDW Coeff of Doretha 15.0 H, Plt Count 298, MPV 10.1, Immature Gran % (Auto) 0.400, Neut % (Auto) 65.7, Lymph % (Auto) 26.7, [place] % (Auto) 6.2, Eos % (Auto) 0.8, Baso % (Auto) 0.2, Absolute Neuts (auto) 6.0, Absolute Lymphs (auto) 2.44, Nucleated RBC % 0 04/25/22 12:54: Sodium 140, Potassium 3.6, Chloride 107, Carbon Dioxide 30.0, Anion Gap 3 L, BUN 9, Creatinine 0.63, Estim Creat Clear Calc 41.45, Est GFR (MDRD) Af Amer 120, Est GFR (MDRD) Non-Af 99, BUN/Creatinine Ratio 14.4, Glucose 132 H, Calcium 8.9, Troponin I High Sens 7 04/25/22 12:54: B-Natriuretic Peptide 15.4 04/25/22 15:11: Troponin I High Sens 8 Rhythm Strip Rhythm Strip: Sinus Rhythm Rate: 70 Ectopy: None Radiology Impression Chest X-Ray 04/25/22 12:51 IMPRESSION: Hyperinflation. Stable mild degree of increased markings at the lung bases suggestive of scarring. Electronically Signed: Dion Orourke MD at 13:34 EDT , Chest CTA 04/25/22 16:11 IMPRESSION: Normal CTA chest examination, without a demonstrated pulmonary embolism or arterial dissection. Electronically Signed: Dario Burdick MD at 17:05 EDT , Assessment & Plan Assessment/Plan (1) Acute dyspnea: PLAN: Plan 1. Acute exacerbation of chronic COPD with chronic hypoxic respiratory failure-wears 2.5 L nasal cannula at baseline. On baseline home O2 requirements. CTA unremarkable. IV Solu-Medrol. Albuterol and DuoNeb aerosols. Recommend follow-up with pulmonary medicine at discharge. 2. Type 2 diabetes mellitus-does not appear to be on regimen. Accu-Cheks with sliding scale insulin. Recent hemoglobin A1c 6.9%. 3. CAD/ischemic cardiomyopathy-continue aspirin, statin, Plavix, Lasix. 4. Hypertension-stable, continue home regimen. 5. Hyperlipidemia-continue statin. 6. Anxiety/depression/Restless leg syndrome-on sertraline, trazodone, ropinirole, pramipexole. 7. Tobacco dependence-encouraged cessation. 8. History of lung cancer-continue outpatient surveillance. 9. SHANA-on trilogy nightly. DVT prophylaxis-Lovenox subcu This patient was seen by ORA Cade under the supervision of Dr. Fountain. Time spent examining patient, reviewing data and subsequent management of care: 26 minutes Documented by User: Dr. Felipe Fountain DO 04/25/22 18:17 HPI - General General Date of Admission: 04/25/22 [facility] Medical History Asthma BiPAP (biphasic positive airway pressure) dependence Chronic pain Chronic respiratory failure with hypoxia Congestive heart failure (CHF) COPD (chronic obstructive pulmonary disease) Coronary artery disease Diabetes DVT (deep venous thrombosis) Former smoker Knee arthropathy Lung cancer Myocardial infarct On home oxygen therapy Osteoporosis Pulmonary embolism Tobacco abuse Home Medications pramipexole 1.5 mg tablet 1.5 mg PO QHS restless legs 06/12/14 [History Last Taken 04/24/22] trazodone 100 mg tablet 100 mg PO QHS sleep 06/12/14 [History Last Taken 04/24/22] ropinirole 2 mg tablet 2 mg PO QHS restless legs 10/20/15 [History Last Taken 04/24/22] umeclidinium 62.5 mcg/actuation blister powder for inhalation 1 puff inhalation DAILY breathing 08/29/20 [History Last Taken 04/25/22] furosemide 20 mg tablet 20 mg PO DAILY water pill 03/17/21 [History Last Taken 04/25/22] ibandronate 150 mg tablet 150 mg PO QMONTH bones 04/19/21 [History Last Taken 03/27/22] atorvastatin 80 mg tablet 80 mg PO QHS cholesterol 10/20/21 [History Last Taken 04/24/22] clopidogrel 75 mg tablet 75 mg PO DAILY blood thinner 10/20/21 [History Last Taken 04/25/22] fluticasone furoate 100 mcg-vilanterol 25 mcg/dose inhalation powder (Breo Ellipta) 1 inh inhalation DAILY sob 10/20/21 [History Last Taken 04/25/22] sertraline 50 mg tablet 50 mg PO DAILY anxiety 02/25/22 [History Last Taken 04/25/22] albuterol sulfate 90 mcg/actuation aerosol inhaler 2 puff inhalation Q4H PRN shortness of breath or wheezing #8.5 grams 02/26/22 [Rx Last Taken 04/25/22] lancets (Lancets,Ultra Thin) #200 ea 02/26/22 [Rx Last Taken Unknown] pen needle, diabetic 31 gauge x 1/6 #100 ea 02/26/22 [Rx Last Taken Unknown] prednisone 10 mg tablet See Taper PO BREAKFAST #30 tabs 03/21/22 [Rx Last Taken Unknown] aspirin 81 mg chewable tablet 81 mg PO BREAKFAST heart health 04/25/22 [History Last Taken 04/25/22] famotidine 20 mg tablet 20 mg PO DAILY PRN gerd 04/25/22 [History Last Taken Unknown] guaifenesin 600 mg tablet, extended release 12 hr (Mucus Relief ER) 600 mg PO BID PRN Congestion 04/25/22 [History Last Taken Unknown] Allergy/AdvReac Type Severity Reaction Status Date / Time bupropion HCl Allergy Hives Verified 02/24/22 21:44 [From Wellbutrin] gabapentin [From Neurontin] Allergy Hives Verified 02/24/22 21:44 moxifloxacin HCl Allergy Hives Verified 02/24/22 21:44 [From Avelox] Family History Mother COPD (chronic obstructive pulmonary disease) Cancer Diabetes Heart disease Father COPD (chronic obstructive pulmonary disease) Cancer Diabetes Heart disease Surgical History H/O hand surgery H/O heart artery stent H/O knee surgery H/O: hysterectomy History of back surgery Status post lobectomy of lung Social History household members: none Smoking Status: Light Smoker (<10/day) how long ago did patient quit smoking: Quit tobacco use ~ 3 months prior 11/2021. alcohol intake: never substance use type: does not use Results Lab / Micro Data Result Diagrams: 04/25/22 12:54 04/25/22 12:54 Assessment & Plan Assessment/Plan (1) Acute dyspnea: Charges/Coding Addendum Addendum: Patient was seen and examined independently of Sigrid Arguelles, she came to the emergency room today with complaints of increasing shortness of breath over the last couple of days. Patient has a history of COPD with oxygen dependency at home-she uses a trilogy machine at home. Work-up in the emergency room included a CT of the chest which showed no pulmonary embolism or arterial dissection, her chest x-ray showed hyperinflation and stable mild degree of increased markings at the lung bases suggestive of scarring. CBC was remarkable for hemoglobin of 11.3, patient's white blood cell count was normal, chemistry profile was unremarkable. Patient's pulse ox appeared stable at rest on 3 L of O2, however, when the patient ambulated, she had an oxygen desaturation with brief exertion. Emergency room physician felt that the patient should be admitted for exacerbation of COPD with hypoxia. On examination she appeared older than her stated age, she does not appear to be in any distress. Vital signs as documented. Skin warm and dry and without overt rashes. Neck without JVD, thyroid appears normal, trachea is midline, neck is supple. Lungs scattered expiratory wheezes are noted over both lungs, decreased air movement was noted bilaterally. Heart exam notable for regular rhythm, normal sounds and absence of murmurs, rubs or gallops. Abdomen unremarkable and without evidence of organomegaly, masses, or abdominal aortic enlargement, bowel sounds are present in all 4 quadrants, no abdominal tenderness was noted. Extremities nonedematous, no cyanosis was noted, no clubbing was noted. Neuro: Cranial nerves II through XII are grossly intact, no focal motor deficits were noted, sensation to light touch and pinprick is intact, motor exam 5/5 throughout. Psych: Patient is alert and oriented x3, she does not appear anxious or depressed, she does not appear agitated. #1 acute exacerbation of COPD-patient will be placed into observation status on MedSurg 3, she will be given IV Solu-Medrol, oral Zithromax (patient complains of sputum production with grayish sputum over the last couple of days) and aerosol treatments. #2 hypoxia on a backdrop of chronic hypoxemic respiratory failure-patient will need a walking pulse oximeter prior to discharge-she may need a higher oxygen setting at home when she ambulates, she is on 3 L of oxygen at home at all times and she uses a trilogy at night-she has her trilogy here and can use it during her hospitalization #3 coronary artery disease-patient is on Plavix and aspirin as well as atorvastatin, these will be continued here #4 hyperlipidemia-patient is on atorvastatin #5 chronic depression-patient is on Zoloft I have reviewed Sigrid Arguelles's history and physical including her medical assessment and plan of care with the above additions endorse it. Total clinical time spent by myself addressing the patient's medical issues, reviewing the data, and collaborating with patient's care team: 45-minutes Visit Charges OBSV E&M: 06909 Initial observation care L3
--- NOTE | 2022-04-25 18:20 | NURSING ---
c.spo2 maintained.
[2022-04-25 18:26] LABS: Bedside Glucose 144 mg/dL (74-106)
[2022-04-25] MEDS: Azithromycin 250 MG Tablet 500 MG PO (18:50)
[2022-04-25] MEDS: Ipratropium/Albuterol Sulfate 3 ML AMPUL.NEB INHALATION (19:15)
--- NOTE | 2022-04-25 19:28 | CPS ---
set up pt own [employer] machine with 2.5 l/m o2 bleed
[2022-04-25] MEDS: Pramipexole Di-HCl 0.5 MG Tablet 1.5 MG PO (21:48)
[2022-04-25] MEDS: traZODone 100 MG Tablet PO (21:48)
[2022-04-25] MEDS: Atorvastatin Calcium 80 MG Tablet PO (21:48)
[2022-04-25] MEDS: 0.9% Saline Lock 10 ML Syringe IV (21:48)
[2022-04-25 22:21] LABS: Bedside Glucose 134 mg/dL (74-106)
[2022-04-26] VITALS (10 sets, daily range): BP systolic 136–146; BP diastolic 69–76; PULSE 73–93; RESP 18–22; TEMP 36.4–36.9; O2SAT 95–97
[2022-04-26] MEDS: 0.9% Saline Lock 10 ML Syringe IV ×3 (04:59→21:57)
[2022-04-26] MEDS: Insulin Lispro 100 UNIT/ML INSULN.PEN SC ×4 (06:00→21:58)
[2022-04-26 06:11] LABS: Absolute Lymphocyte Count 1.69 X10^3/uL (0.83-4.51); Absolute Neutrophil Count 7.7 X10^3/uL (2.0-7.7); Basophil# 0.02 X10^3/uL; Basophil% 0.2 % (0-1); Hematocrit 35.8 % (37-47); Hemoglobin 11.4 g/dL (12.0-15.0); Lymphocyte # 1.69 X10^3/ul (0.83-4.51); Lymphocyte % 17.8 % (19-41); Mean Corp Hgb Conc 31.8 g/dL (32-36); Mean Corpuscular Hgb 28.8 pg (27.0-32.0); Mean Corpuscular Volume 90.4 fL (81-99); Mean Platelet Vol. 10.2 fl (6.2-12.0); Monocyte# 0.09 X10^3/uL; Monocyte% 0.9 % (0-10); NRBC Flagged by Analyzer 0 % (0-5); Neutrophil # 7.67 X10^3/uL (2.7-7.7); Neutrophil % 80.7 % (47-70); Platelet Count 292 K/mm3 (150-450); RBC Distribution Width CV 14.8 % (11.6-14.6); RBC Distribution Width SD 49.1 fl (35.1-43.9); Red Blood Count 3.96 M/mm3 (4.2-5.4); White Blood Count 9.5 K/mm3 (4.4-11.0)
[2022-04-26 06:30] LABS: Bedside Glucose 216 mg/dL (74-106)
[2022-04-26 06:43] LABS: Anion Gap 6 (5-15); BUN 10 mg/dL (7-18); BUN/Creat Ratio 12.8 RATIO (10-20); Calcium,Total 8.7 mg/dL (8.5-10.1); Chloride 106 mmol/L (98-107); Creatinine, Serum 0.78 mg/dL (0.55-1.02); EST Glomerular Filtration Rate 76 mL/min (>60); Est Glom Filt Rate - Afr Amer 92 mL/min (>60); Estimated Creatinine Clearance 41.45 ml/min; Glucose 224 mg/dL (74-106); Potassium 5.2 mmol/L (3.5-5.1); Sodium Level 140 mmol/L (136-145)
[2022-04-26] MEDS: Ipratropium/Albuterol Sulfate 3 ML AMPUL.NEB INHALATION ×5 (07:14→22:38)
[2022-04-26] MEDS: Azithromycin 250 MG Tablet 500 MG PO (08:11)
[2022-04-26] MEDS: Clopidogrel Bisulfate 75 MG Tablet PO (08:11)
[2022-04-26] MEDS: Aspirin 81 MG TAB.CHEW PO (08:11)
[2022-04-26] MEDS: Sertraline 50 MG Tablet PO (08:11)
[2022-04-26] MEDS: Enoxaparin 40 MG/0.4 ML Syringe SC (08:11)
[2022-04-26] MEDS: Furosemide 20 MG Tablet PO (08:11)
--- NOTE | 2022-04-26 11:40 | CASEMGMT ---
CONNOR ZIMMERMAN Assessment: CONNOR ZIMMERMAN to room to meet with patient for initial transition planning/care coordination assessment. CONNOR ZIMMERMAN introduced self and role at [facility]. Pt voices understanding and consents to assessment at this time. Pt sitting up in recliner chair in no distress at this time. Pt is A/O at this time and answers all questions appropriately. Care providers, pharmacy, and demographics verified/updated at this time. PCP: [facility]: nicolás [place]; pt has a artist manager in [place] but she is unsure of the name. Palliative Care: Discussed Palliative care w/pt and questions answered. She states she is interested in a referral. Margareth ZIMMERMAN, made aware. Preferred Pharmacy: [facility] Retail Insurance: My Care [facility], [facility] Prescription Benefit: yes LW/HPOA: Pt has a LW/HPOA on file at [facility]. HPOA is Camille Merchant. LNOK: Camille Merchant, dtr/HPOA; Marshall Rivas, son Living Arrangements: Pt lives alone in a ground level apt with 5 steps to enter in the front or back with a rail. Pt states she just returned home from [facility] about 2 weeks ago and has not been managing well @ home since d/t SOB and fatigue. She reports needing to sleep in her recliner d/t not enough air or energy to go to the bedroom. She reports difficulty w/preparing meals and managing @ home d/t everything is so exhausting. She states some days she does not eat until 3 PM d/t too exhausting to take the trip to the kitchen. She states her daughter is supportive and would stop daily to assist her, if she asked, but states, I try to get along on my own as much as I can, but it's not working. She states she just told her dtr recently that they need to have a family meeting To figure out what to do with me. Transportation: Pt drives self and denies concerns with transportation. DME: Pt has a pulse ox, nebulizer, oxygen through [employer] at 2.5 liters cont and trilogy w/O2 bleed-in. Pt has a BGM with supplies, BP cuff , shower chair and rollator. SNF/HHC/CM: She is active with [facility] and the test case developer is Nanda Salazar. She states Nanda has been trying to get an aide for her but there are none available currently. Pt has been to [facility] in the past (just discharged about 2 weeks ago) and has had [facility] in the past. Pt states is interested in going to a SNF again for awhile, as she is not managing well @ home on her own. She states she liked [facility], but would prefer to go somewhere where they do not allow smoking, as she is trying to quit. SW, [employer], made aware. Pt states she is also interested in info on [place] to have to review for in the future. [employer] also made aware of same. Pt Goal: SNF Plan: TBD pending therapy eval. Mary Ann SIMN RN CM
[2022-04-26 11:56] LABS: Bedside Glucose 321 mg/dL (74-106)
--- NOTE | 2022-04-26 11:58 | PN.HOSP_ITS ---
Subjective Subjective Doing well, she still a bit short of breath with activity otherwise she is doing fine on her baseline oxygen. Objective Data Objective Data Vital Signs: Vital Signs Temp Pulse Resp BP Pulse Ox O2 Del Method O2 Flow Rate 97.7 F L 82 20 H 146/69 H 95 Nasal Cannula 3 04/26/22 07:57 04/26/22 10:46 04/26/22 10:46 04/26/22 07:57 04/26/22 07:57 04/26/22 08:00 04/26/22 08:00 Oxygen Flow Rate (L/min) 3 Oxygen Delivery Method Nasal Cannula Weight: 201 lb 14.4 oz Body Mass Index (BMI) 35.7 Intake & Output: Intake and Output for Last 24 Hours 04/25/22 04/26/22 04/27/22 03:59 03:59 03:59 Intake Total 360 / 360 Output Total 500 / 500 Balance -140 / -140 Lab / Micro Data Result Diagrams: 04/26/22 05:25 04/26/22 05:25 Labs: Laboratory Results - last 24 hr 04/25/22 12:54: WBC 9.1, RBC 3.99 L, Hgb 11.3 L, Hct 36.3 L, MCV 91.0, MCH 28.3, MCHC 31.1 L, RDW Std Deviation 49.8 H, RDW Coeff of Doretha 15.0 H, Plt Count 298, MPV 10.1, Immature Gran % (Auto) 0.400, Neut % (Auto) 65.7, Lymph % (Auto) 26.7, [place] % (Auto) 6.2, Eos % (Auto) 0.8, Baso % (Auto) 0.2, Absolute Neuts (auto) 6.0, Absolute Lymphs (auto) 2.44, Nucleated RBC % 0 04/25/22 12:54: Sodium 140, Potassium 3.6, Chloride 107, Carbon Dioxide 30.0, Anion Gap 3 L, BUN 9, Creatinine 0.63, Estim Creat Clear Calc 41.45, Est GFR (MDRD) Af Amer 120, Est GFR (MDRD) Non-Af 99, BUN/Creatinine Ratio 14.4, Glucose 132 H, Calcium 8.9, Troponin I High Sens 7 04/25/22 12:54: B-Natriuretic Peptide 15.4 04/25/22 15:11: Troponin I High Sens 8 04/25/22 18:04: POC Glucose 144 H 04/25/22 21:53: POC Glucose 134 H 04/26/22 05:25: WBC 9.5, RBC 3.96 L, Hgb 11.4 L, Hct 35.8 L, MCV 90.4, MCH 28.8, MCHC 31.8 L, RDW Std Deviation 49.1 H, RDW Coeff of Doretha 14.8 H, Plt Count 292, MPV 10.2, Immature Gran % (Auto) 0.400, Neut % (Auto) 80.7 H, Lymph % (Auto) 17.8 L, [place] % (Auto) 0.9, Eos % (Auto) 0.0, Baso % (Auto) 0.2, Absolute Neuts (auto) 7.7, Absolute Lymphs (auto) 1.69, Nucleated RBC % 0 04/26/22 05:25: Sodium 140, Potassium 5.2 H, Chloride 106, Carbon Dioxide 28.0, Anion Gap 6, BUN 10, Creatinine 0.78, Estim Creat Clear Calc 41.45, Est GFR (MDRD) Af Amer 92, Est GFR (MDRD) Non-Af 76, BUN/Creatinine Ratio 12.8, Glucose 224 H, Calcium 8.7 04/26/22 05:56: POC Glucose 216 H 04/26/22 11:29: POC Glucose 321 H Micro: Microbiology 04/25/22 18:03 Sputum, Expectorated/Coughed Respiratory Culture - Preliminary Appears to be normal respiratory kayla. Further studies to follow. Radiography Diagnostic Testing: Radiology Impression Chest X-Ray 04/25/22 12:51 IMPRESSION: Hyperinflation. Stable mild degree of increased markings at the lung bases suggestive of scarring. Electronically Signed: Dion Orourke MD at 13:34 EDT , Chest CTA 04/25/22 16:11 IMPRESSION: Normal CTA chest examination, without a demonstrated pulmonary embolism or arterial dissection. Electronically Signed: Dario Burdick MD at 17:05 EDT , Rhythm Strip Rhythm Strip: Sinus Rhythm Rate: 70 Ectopy: None Physical Exam Narrative General: Alert, Oriented x3, Cooperative, No apparent distress HEENT: Atraumatic, PERRLA, EOMI, Normocephalic Oral: Moist Mucosa Neck: Supple, No JVD Lungs: Diminished, Normal air movement, No rhonchi, wheeze, No rales Cardiovascular: Regular rate, Regular Rhythm, Normal S1, Normal S2, No murmurs Abdomen: Soft, Non Tender, Non-Distended, No Hepato-splenomegaly Extremities: No edema, Capillary Refill Less than 3 Seconds Skin: No rashes, No breakdown Musculoskeletal: No Tenderness to Palpation of Joints or Extremities Neurological: Cranial nerves II-XII grossly intact, Motor Exam 5/5 strength throughout, Sensory exam intact to light touch and pain Psych/Mental Status: Normal Affect, Appropriate Assessment & Plan Assessment/Plan (1) Acute dyspnea: PLAN: Plan 1. Acute COPD exacerbation with chronic hypoxic respiratory failure/tobacco dependence/history of lung cancer/SHANA ? She wears about 2-1/2 L of oxygen nasal cannula at home which she is on here ? She also wears trilogy at night which she has been continuing to wear. She has noticed that she has been having more dyspnea on exertion ? Echo from last year is unremarkable ? We will consult pulmonology given her recent admission for the same thing ? Discussed tobacco cessation ? She is being monitored as an outpatient for her lung cancer ? Continue with azithromycin and steroids 2. CAD/ischemic cardiomyopathy/HTN/HLD ?We will continue to monitor her blood pressure, can continue with her home blood pressure medications ? Continue with her Lipitor ? Continue with her aspirin and Plavix as well as her daily Lasix 3. DM2 ? Continue with Accu-Cheks and sliding scale insulin ? We will monitor and make adjustments as necessary 4. Anxiety/depression/restless leg syndrome ? Stable ? Continue with her home medications DVT: Lovenox Charges/Coding Visit Charges OBSV E&M: 35189 Subsequent observation care L2
--- NOTE | 2022-04-26 11:59 | CASEMGMT ---
Addendum entered by Margareth Mclaughlin 04/26/22 14:05: Palliative liaison will be seeing pt at 3pm today. Original Note: Order received for therapy and palliative care. Pt interested in palliative care services and met criteria per [facility] screening tool. Emailed referral to palliative.
--- NOTE | 2022-04-26 12:15 | CASEMGMT ---
Addendum entered by Justa Jones 04/26/22 13:55: Sw in to met with pt and discuss pt choice of SNF. Pt was sitting bedside and was able to share preference of SNF choices. First choice is [facility]. Second choice is [facility]. Third choice is [facility]. Wilma Collazo, discharge senior care assistant notified and will send referral to [facility]. PLAN: [facility], pending acceptance and precert [employer] Merchant Original Note: Social Work SW in to meet pt. SALUD, Benito Silvestre, informed pt may need SNF placement. SW introduced self and role at the hospital. Pt sitting in chair beside bed eating lunch while her Daughter, Camille, visited. Pt and daughter agreeable to discussing discharge planning. ?A list of SNF providers including quality and resources use date that is consistent with patient's preferred geographical region, medical needs, and insurances network were provided via the [facility] Link. SW included information on facilities that do not allow smoking, as patient had expressed concern of being allowed to go outside to smoke and not having willpower to say no to this. ?Pt requested some time to review choices. SW also provided Assisted Living Resources for pt to review. Answered questions and provided information. Pt grateful, asking if SNFs would have someone who could assist her with this process when she discharges from [facility]. SW shared most SNFs have SW that can assist with this and that pt family can also contact [place] facilities to request tours and gather additional information. Pt satisfied with this information. VANESA discussed intent to check back with pt later this day to inquire about SNF choices. Pt agreeable. PLAN: Await pt SNF choice. ME[employer]I Merchant
--- NOTE | 2022-04-26 14:05 | CASEMGMT ---
Social Work SW called [facility], Nanda Salazar, to update on pt admittance to [facility]. Left message informing that pt admitted to hospital. Shared pt will likely discharge to SNF. Also included pt daughter discussed option for a homeopathic doctor and has been trying to reach Nanda for a few days to discuss. MEHDI Merchant
--- NOTE | 2022-04-26 14:12 | CHAPLAIN ---
Type of Pastoral Visit _x__ Initial Visit ___ Follow-up Visit ___ On-call Visit ___ General Patient Visit ___ Spiritual Assessment ___ Family Conference ___ Bereavement ___ Rapid Response ___ Code Blue ___ Other (describe below) Pastoral Care Referral From _x__ Patient ___ Family ___ Nurse ___ Physician ___ High School Guidance Counselor ___ Schedule Manager ___ Other (describe below) Sacrament/Intervention _x__ Active listening ___ Anointing ___ Protestant ___ Bereavement ___ Communion _x__ Madie exploration ___ _x__ Life review _x__ Prayer ___ Reconciliation ___ Sacrament of Sick _x__ Supportive presence ___ Wedding ___ Other (describe below) Pastoral Comments patient is welcoming and begins to tell her story of health difficulties over recent years and especially in last couple of months; pt admits to some discouragement and recognizes that health may not return to former levels; explored ways that pt finds peace and comfort but pt states that her physical limits restrict much of that activity; pt begins to share about her spiritual concerns as she has been out of faith for a long time; affirmation of beliefs and supportive of her desire to re-establish madie practices; pt requests a Bible to read and she was given one; prayer welcomed
--- NOTE | 2022-04-26 14:17 | CASEMGMT ---
Discharge Claims Adjudicator Wilma rivera/[employer]gen customer care assistant sent referral to [facility] via [facility]. Will follow up. Plan: [facility], Jean Acceptance Wilma Collazo Discharge Claims Adjudicator
--- NOTE | 2022-04-26 14:18 | EX.PCM.CONCC ---
Assessment & Plan Assessment/Plan (1) Hypoxia: (2) COPD exacerbation: (3) Sleep apnea: QUALIFIERS: Sleep apnea type: obstructive Qualified Code(s): G47.33 - Obstructive sleep apnea (adult) (pediatric) (4) Hx of pulmonary embolus: PLAN: Plan RECOMMENDATIONS: 1. Continue current therapy 2. Possibly transition to prednisone therapy tomorrow 3. Walking oximetry prior to discharge 4. Okay to continue trilogy at the current settings 5. Consider initiation of Acapella therapy. IMPRESSIONS: 1. Acute exacerbation of COPD/chronic hypoxic respiratory failure/SHANA/history of lung CA Exact severity of lung dysfunction is unclear at this time. Patient has had multiple exacerbations of COPD in the last 3 months. None of these have been noted to have pathologic organisms on sputum culture. Review of the CT scan does show a possible area of bronchiectasis in the right middle lobe on image 108. Patient would benefit from initiation of Acapella therapy. Clinical suspicion for recurrent admissions secondary to hypoxia leading to elevated pulmonary artery pressures. Stressed to the patient the importance of increasing supplemental oxygen with activity and advanced lung disease. Also discussed with the patient about using trilogy as a rescue mechanism during the day. Could consider repeating echocardiogram to see if pulmonary artery pressures are elevated compared to a year ago. Patient is typically followed by the [facility], so follow-up will be with them. 2. CAD/ischemic cardiomyopathy/hypertension/hyperlipidemia/obesity Patient's last echocardiogram appears to be a year ago [facility]. Patient is on appropriate medical therapy. Patient does have an element of diastolic dysfunction that can be acutely exacerbated by tachycardia associated with hypoxia. Patient does not have an elevation in troponin, so acute coronary syndrome is unlikely. BNP is not elevated, but if patient is having transient flash pulmonary edema associated with the tachycardia this may not lead to an elevated BNP 3. Diabetes mellitus/anxiety/depression/restless leg/obesity/debility/tobacco abuse Complicates care, management, recovery and prognosis. Stressed to the patient the risks of smoking with supplemental oxygen in place. Patient is on appropriate medical therapy at this time. We will have to watch blood sugars closely given systemic steroids. HPI Consult Data Date of Consult: 04/26/22 HPI Narrative Reason for Consultation: Recurrent COPD exacerbations HPI Narrative: AVE ANNE is a 71 F, with past medical history listed below, who presents to [facility] on 04/25/2022 secondary to progressive shortness of breath despite supplemental oxygen. Over the last 2 months, patient has had 2 previous hospitalizations with similar type of presentations. Patient states that she had had some minimal swelling of her feet but was compliant with her diuretic. Patient denied any fever, chills, nausea or vomiting. Patient had reported some minor sinus congestion, but no hemoptysis or epistaxis. No chest pain was reported. In the ER, patient was afebrile, but hypertensive at 152/68. Patient was noted to be 98% on her baseline 3 L nasal cannula. Laboratory work-up showed a white blood cell count of 9.1, hemoglobin of 11.3 and platelets of 298. Chemistry was significant for a bicarbonate of 30 with normal renal function and a slightly elevated glucose of 132. BNP was normal at 15 and troponins were negative also. Chest x-ray showed hyperinflation. Patient reportedly was stood and walked and desaturated into the mid to low 80s on her baseline 3 L. For this reason a CTA of the chest was obtained showing no acute PE or infiltrates. Patient was subsequently admitted to [facility] for evaluation. Since being admitted to the hospital, patient states that she feels okay. Patient states that she has had multiple complications in the last year and a half. Patient states that she has had multiple fractures and orthopedic issues along with pulmonary embolism. Patient states that she follows with Dr. Robin at the [facility] and has been established on a trilogy machine that she cannot sleep without. Patient states she typically leaves her oxygen at 2-1/2 L at all times at home. Patient states she had she will desaturate into the low 80s to upper 70s and typically rests for 5 minutes or so to recover. Patient has not reported any change in cough or sputum production. Patient has been treated with prednisone multiple times over her previous exacerbations. Patient is currently on triple therapy and takes 20 mg of Lasix daily. Patient states that she is relatively asymptomatic when sitting still, but has significant shortness of breath with minimal exertion. Patient states she had a virtual visit with Dr. Robin just prior to her presentation at the ER. Patient states that she had pulmonary function tests completed approximately 2 to 5 years ago. Patient is unaware of the severity of her disease, but does state that her COPD is severe. Patient does believe that she had a significant change in her respiratory status following her acute ID. Review of systems otherwise negative from a constitutional, HEENT, respiratory, cardiovascular, GI, genitourinary, musculoskeletal, skin, neurologic, psychiatric and hematologic system unless stated above. [facility] Medical History Asthma BiPAP (biphasic positive airway pressure) dependence Chronic pain Chronic respiratory failure with hypoxia Congestive heart failure (CHF) COPD (chronic obstructive pulmonary disease) Coronary artery disease Diabetes DVT (deep venous thrombosis) Former smoker Knee arthropathy Lung cancer Myocardial infarct On home oxygen therapy Osteoporosis Pulmonary embolism Tobacco abuse Home Medications pramipexole 1.5 mg tablet 1.5 mg PO QHS restless legs 06/12/14 [History Last Taken 04/24/22] trazodone 100 mg tablet 100 mg PO QHS sleep 06/12/14 [History Last Taken 04/24/22] ropinirole 2 mg tablet 2 mg PO QHS restless legs 10/20/15 [History Last Taken 04/24/22] umeclidinium 62.5 mcg/actuation blister powder for inhalation 1 puff inhalation DAILY breathing 08/29/20 [History Last Taken 04/25/22] furosemide 20 mg tablet 20 mg PO DAILY water pill 03/17/21 [History Last Taken 04/25/22] ibandronate 150 mg tablet 150 mg PO QMONTH bones 04/19/21 [History Last Taken 03/27/22] atorvastatin 80 mg tablet 80 mg PO QHS cholesterol 10/20/21 [History Last Taken 04/24/22] clopidogrel 75 mg tablet 75 mg PO DAILY blood thinner 10/20/21 [History Last Taken 04/25/22] fluticasone furoate 100 mcg-vilanterol 25 mcg/dose inhalation powder (Breo Ellipta) 1 inh inhalation DAILY sob 10/20/21 [History Last Taken 04/25/22] sertraline 50 mg tablet 50 mg PO DAILY anxiety 02/25/22 [History Last Taken 04/25/22] albuterol sulfate 90 mcg/actuation aerosol inhaler 2 puff inhalation Q4H PRN shortness of breath or wheezing #8.5 grams 02/26/22 [Rx Last Taken 04/25/22] lancets (Lancets,Ultra Thin) #200 ea 02/26/22 [Rx Last Taken Unknown] pen needle, diabetic 31 gauge x 1/6 #100 ea 02/26/22 [Rx Last Taken Unknown] prednisone 10 mg tablet See Taper PO BREAKFAST #30 tabs 03/21/22 [Rx Last Taken Unknown] aspirin 81 mg chewable tablet 81 mg PO BREAKFAST heart health 04/25/22 [History Last Taken 04/25/22] famotidine 20 mg tablet 20 mg PO DAILY PRN gerd 04/25/22 [History Last Taken Unknown] guaifenesin 600 mg tablet, extended release 12 hr (Mucus Relief ER) 600 mg PO BID PRN Congestion 04/25/22 [History Last Taken Unknown] Allergy/AdvReac Type Severity Reaction Status Date / Time bupropion HCl Allergy Hives Verified 02/24/22 21:44 [From Wellbutrin] gabapentin [From Neurontin] Allergy Hives Verified 02/24/22 21:44 moxifloxacin HCl Allergy Hives Verified 02/24/22 21:44 [From Avelox] Family History Mother COPD (chronic obstructive pulmonary disease) Cancer Diabetes Heart disease Father COPD (chronic obstructive pulmonary disease) Cancer Diabetes Heart disease Surgical History H/O hand surgery H/O heart artery stent H/O knee surgery H/O: hysterectomy History of back surgery Status post lobectomy of lung Social History household members: none Smoking Status: Light Smoker (<10/day) how long ago did patient quit smoking: Quit tobacco use ~ 3 months prior 11/2021. alcohol intake: never substance use type: does not use ROS ROS Narrative See HPI Physical Exam Const alert, oriented x3 and no apparent distress Constitutional Narrative: Wearing supplemental oxygen HEENT head/scalp atraumatic and moist oral mucous membranes HEENT Narrative: Mallampati 4. No epistaxis. Mouth: oral and palatal mucosa normal Eyes conjunctivae normal and no scleral icterus Neck no lymphadenopathy and supple Resp normal respiratory effort Effort and Inspection: able to speak in complete sentences and symmetric chest movement Auscultation: diminished lung sounds; Negative for rales, rhonchi or wheezes Cardio regular rate, regular rhythm, S1 normal heart sound, S2 normal heart sound, no murmurs, no rub and no gallops GI normal to inspection, nondistended, normoactive bowel sounds, soft to palpation and non-tender Extremity normal to inspection and full ROM General Extremity: edema bilateral (1+ bilateral lower extremity); Negative for clubbing Skin no rashes or lesions noted Neuro oriented x3, moves all extremities, no focal motor deficits and no sensory deficits noted Psych affect normal Medical Records Data Attestation: I reviewed the patient's medical records Medical records narrative: Patient was in pulmonary rehab in 2017. There is no report of FEV1, but patient was requiring supplemental oxygen with rest and exertion. Patient's last echocardiogram appears to be approximately a year ago and showed an EF of 60% with stage I diastolic dysfunction and right ventricular systolic pressures of 36 mmHg. Bubble study was negative at that time. Lab / Micro Data Attestation: I reviewed the patient's lab results. Lab results narrative: Despite multiple sputum cultures over the last 3 months, none have grown pathologic organisms. Result Diagrams: 04/26/22 05:25 04/26/22 05:25 Labs: Laboratory Results - last 24 hr 04/25/22 15:11: Troponin I High Sens 8 04/25/22 18:04: POC Glucose 144 H 04/25/22 21:53: POC Glucose 134 H 04/26/22 05:25: WBC 9.5, RBC 3.96 L, Hgb 11.4 L, Hct 35.8 L, MCV 90.4, MCH 28.8, MCHC 31.8 L, RDW Std Deviation 49.1 H, RDW Coeff of Doretha 14.8 H, Plt Count 292, MPV 10.2, Immature Gran % (Auto) 0.400, Neut % (Auto) 80.7 H, Lymph % (Auto) 17.8 L, [place] % (Auto) 0.9, Eos % (Auto) 0.0, Baso % (Auto) 0.2, Absolute Neuts (auto) 7.7, Absolute Lymphs (auto) 1.69, Nucleated RBC % 0 04/26/22 05:25: Sodium 140, Potassium 5.2 H, Chloride 106, Carbon Dioxide 28.0, Anion Gap 6, BUN 10, Creatinine 0.78, Estim Creat Clear Calc 41.45, Est GFR (MDRD) Af Amer 92, Est GFR (MDRD) Non-Af 76, BUN/Creatinine Ratio 12.8, Glucose 224 H, Calcium 8.7 04/26/22 05:56: POC Glucose 216 H 04/26/22 11:29: POC Glucose 321 H Micro: Microbiology 04/25/22 18:03 Sputum, Expectorated/Coughed Gram Stain - Final 04/25/22 18:03 Sputum, Expectorated/Coughed Respiratory Culture - Preliminary Appears to be normal respiratory kayla. Further studies to follow. Rhythm Strip Rhythm Strip: Sinus Rhythm Rate: 82 Ectopy: None Radiology Impression Chest X-Ray 04/25/22 12:51 IMPRESSION: Hyperinflation. Stable mild degree of increased markings at the lung bases suggestive of scarring. Electronically Signed: Dion Orourke MD at 13:34 EDT , Chest CTA 04/25/22 16:11 IMPRESSION: Normal CTA chest examination, without a demonstrated pulmonary embolism or arterial dissection. Electronically Signed: Dario Burdick MD at 17:05 EDT , Charges/Coding Visit Charges Inpatient E&M: 79554 Init Hosp L2
--- NOTE | 2022-04-26 14:41 | CASEMGMT ---
[facility]NOR CM in to discuss [place] form with patient. RN CM explained [place] form, patient voiced understanding. Pt signed form and filed in chart. Pt provided with a copy of signed [place] form. Patient had no further questions or concerns at this time.
--- NOTE | 2022-04-26 15:48 | CASEMGMT ---
Social Work SW met with Sadaf Rankin from [facility], who updated that pt has decided to sign on for Palliative Care. Sadaf Rankin requesting update on discharge information once SNF has been determined. PLAN: [facility], pending acceptance and precert [employer] Merchant
[2022-04-26 16:40] LABS: Bedside Glucose 311 mg/dL (74-106)
[2022-04-26] MEDS: Atorvastatin Calcium 80 MG Tablet PO (21:57)
[2022-04-26] MEDS: Pramipexole Di-HCl 0.5 MG Tablet 1.5 MG PO (21:57)
[2022-04-26] MEDS: traZODone 100 MG Tablet PO (21:57)
[2022-04-26 22:20] LABS: Bedside Glucose 306 mg/dL (74-106)
[2022-04-27] VITALS (10 sets, daily range): BP systolic 126–140; BP diastolic 57–86; PULSE 80–94; RESP 18–20; TEMP 36.4–36.7; O2SAT 87–99
[2022-04-27 06:14] LABS: Absolute Lymphocyte Count 1.16 X10^3/uL (0.83-4.51); Absolute Neutrophil Count 13.1 X10^3/uL (2.0-7.7); Basophil# 0.01 X10^3/uL; Basophil% 0.1 % (0-1); Hematocrit 32.2 % (37-47); Hemoglobin 10.5 g/dL (12.0-15.0); Lymphocyte # 1.16 X10^3/ul (0.83-4.51); Lymphocyte % 7.9 % (19-41); Mean Corp Hgb Conc 32.6 g/dL (32-36); Mean Corpuscular Hgb 29.4 pg (27.0-32.0); Mean Corpuscular Volume 90.2 fL (81-99); Mean Platelet Vol. 10.4 fl (6.2-12.0); Monocyte% 2.7 % (0-10); NRBC Flagged by Analyzer 0 % (0-5); Neutrophil # 13.06 X10^3/uL (2.7-7.7); Neutrophil % 88.7 % (47-70); Platelet Count 273 K/mm3 (150-450); RBC Distribution Width CV 14.9 % (11.6-14.6); RBC Distribution Width SD 49.3 fl (35.1-43.9); Red Blood Count 3.57 M/mm3 (4.2-5.4); White Blood Count 14.7 K/mm3 (4.4-11.0)
[2022-04-27] MEDS: 0.9% Saline Lock 10 ML Syringe IV (06:28)
[2022-04-27] MEDS: Insulin Lispro 100 UNIT/ML INSULN.PEN SC ×4 (06:28→21:46)
[2022-04-27 06:46] LABS: Anion Gap 7 (5-15); BUN 17 mg/dL (7-18); BUN/Creat Ratio 23.1 RATIO (10-20); Calcium,Total 8.5 mg/dL (8.5-10.1); Chloride 105 mmol/L (98-107); Creatinine, Serum 0.74 mg/dL (0.55-1.02); EST Glomerular Filtration Rate 82 mL/min (>60); Est Glom Filt Rate - Afr Amer 99 mL/min (>60); Estimated Creatinine Clearance 41.45 ml/min; Glucose 253 mg/dL (74-106); Potassium 4.7 mmol/L (3.5-5.1); Sodium Level 138 mmol/L (136-145)
[2022-04-27] MEDS: Ipratropium/Albuterol Sulfate 3 ML AMPUL.NEB INHALATION ×5 (07:03→23:18)
[2022-04-27 07:05] LABS: Bedside Glucose 246 mg/dL (74-106)
--- NOTE | 2022-04-27 07:58 | PN.CC_ITS ---
Assessment & Plan Assessment/Plan (1) Hypoxia: (2) COPD exacerbation: (3) Sleep apnea: QUALIFIERS: Sleep apnea type: obstructive Qualified Code(s): G47.33 - Obstructive sleep apnea (adult) (pediatric) (4) Hx of pulmonary embolus: PLAN: Plan RECOMMENDATIONS: 1. Transition to prednisone therapy 2. Add additional dose of Lasix this evening 3. Obtain walking oximetry 4. Okay to continue trilogy at the current settings 5. Consider initiation of Acapella therapy. IMPRESSIONS: 1. Acute exacerbation of COPD/chronic hypoxic respiratory failur e/SHANA/history of lung CA Exact severity of lung dysfunction is unclear at this time. Patient has had multiple exacerbations of COPD in the last 3 months. None of these have been noted to have pathologic organisms on sputum culture. Review of the CT scan does show a possible area of bronchiectasis in the right middle lobe on image 108. Patient would benefit from initiation of Acapella therapy. Clinical suspicion for recurrent admissions secondary to hypoxia leading to elevated pulmonary artery pressures. Stressed to the patient the importance of increasing supplemental oxygen with activity and advanced lung disease. Also discussed with the patient about using trilogy as a rescue mechanism during the day. We will transition patient over to prednisone to complete a 5-day course. Patient does not appear to have a viral or infectious etiology for exacerbation. We will obtain a walking oximetry. If patient can tolerate ambulation on 6 L or less, likely okay to go to an ECF. If patient requires more, empiric diuresis may be necessary. 2. CAD/ischemic cardiomyopathy/hypertension/hyperlipidemia/obesity Stable. Patient's last echocardiogram appears to be a year ago [facility]. Patient is on appropriate medical therapy. Patient does have an element of diastolic dysfunction that can be acutely exacerbated by tachycardia associated with hypoxia. Patient does not have an elevation in troponin, so acute coronary syndrome is unlikely. BNP is not elevated, but if patient is having transient flash pulmonary edema associated with the tachycardia this may not lead to an elevated BNP 3. Diabetes mellitus/anxiety/depression/restless leg/obesity/debility/tobacco abuse Complicates care, management, recovery and prognosis. Stressed to the patient the risks of smoking with supplemental oxygen in place. Patient is on appropriate medical therapy at this time. We will have to watch blood sugars closely given systemic steroids. Subjective Subjective Patient did okay overnight. No acute changes reported by the patient. Patient still has an intermittent cough and dyspnea on exertion. Objective Data Objective Data Vital Signs: Vital Signs Temp Pulse Resp BP Pulse Ox O2 Del Method O2 Flow Rate 36.6 C 80 20 H 126/57 H 98 Nasal Cannula 3 04/27/22 02:20 04/27/22 07:05 04/27/22 07:05 04/27/22 02:20 04/27/22 07:05 04/27/22 07:05 04/27/22 07:05 Oxygen Flow Rate (L/min) 3 Oxygen Delivery Method Nasal Cannula Weight: 91.58 kg Body Mass Index (BMI) 35.7 Intake & Output: Intake and Output for Last 24 Hours 04/25/22 04/26/22 04/27/22 23:59 23:59 23:59 Intake Total 1010 / 1010 Output Total 1150 / 1150 300 / 300 Balance -140 / -140 -300 / -300 Lab / Micro Data Attestation: I reviewed the patient's lab results. Result Diagrams: 04/27/22 05:20 04/27/22 05:20 Labs: Laboratory Results - last 24 hr 04/26/22 11:29: POC Glucose 321 H 04/26/22 16:19: POC Glucose 311 H 04/26/22 21:55: POC Glucose 306 H 04/27/22 05:20: WBC 14.7 H, RBC 3.57 L, Hgb 10.5 L, Hct 32.2 L, MCV 90.2, MCH 29.4, MCHC 32.6, RDW Std Deviation 49.3 H, RDW Coeff of Doretha 14.9 H, Plt Count 273, MPV 10.4, Immature Gran % (Auto) 0.600, Neut % (Auto) 88.7 H, Lymph % (Auto) 7.9 L, [place] % (Auto) 2.7, Eos % (Auto) 0.0, Baso % (Auto) 0.1, Absolute Neuts (auto) 13.1 H, Absolute Lymphs (auto) 1.16, Nucleated RBC % 0 04/27/22 05:20: Sodium 138, Potassium 4.7, Chloride 105, Carbon Dioxide 26.0, Anion Gap 7, BUN 17, Creatinine 0.74, Estim Creat Clear Calc 41.45, Est GFR (MDRD) Af Amer 99, Est GFR (MDRD) Non-Af 82, BUN/Creatinine Ratio 23.1 H, Glucose 253 H, Calcium 8.5 04/27/22 06:27: POC Glucose 246 H Micro: Microbiology 04/25/22 18:03 Sputum, Expectorated/Coughed Gram Stain - Final 04/25/22 18:03 Sputum, Expectorated/Coughed Respiratory Culture - Preliminary Appears to be normal respiratory kayla. Further studies to follow. Rhythm Strip Rhythm Strip: Sinus Rhythm Rate: 82 Ectopy: None Physical Exam Const alert, oriented x3 and no apparent distress Constitutional Narrative: Wearing supplemental oxygen HEENT head/scalp atraumatic and moist oral mucous membranes Eyes conjunctivae normal and no scleral icterus Neck no lymphadenopathy and supple Resp normal respiratory effort Effort and Inspection: able to speak in complete sentences and symmetric chest movement Auscultation: diminished lung sounds; Negative for rales, rhonchi or wheezes Cardio regular rate, regular rhythm, S1 normal heart sound, S2 normal heart sound, no murmurs, no rub and no gallops GI normal to inspection, nondistended, normoactive bowel sounds, soft to palpation and non-tender Extremity normal to inspection and full ROM General Extremity: edema bilateral (1+ bilateral lower extremity); Negative for clubbing Skin no rashes or lesions noted Neuro oriented x3, moves all extremities, no focal motor deficits and no sensory deficits noted Psych affect normal Charges/Coding Visit Charges Inpatient E&M: 34246 Subs Hosp L2
[2022-04-27] MEDS: Aspirin 81 MG TAB.CHEW PO (08:28)
[2022-04-27] MEDS: predniSONE 20 MG Tablet 40 MG PO (08:30)
[2022-04-27] MEDS: Furosemide 20 MG Tablet PO ×2 (08:31→18:14)
--- NOTE | 2022-04-27 08:57 | PCM.PN.HOSP ---
Subjective Subjective Doing well, feels little bit better than when she came in. Her oxygen saturations are being maintained on 2 to 3 L nasal cannula Objective Data Objective Data Vital Signs: Vital Signs Temp Pulse Resp BP Pulse Ox O2 Del Method O2 Flow Rate 97.6 F L 87 18 140/74 H 99 Nasal Cannula 3.5 04/27/22 08:24 04/27/22 08:24 04/27/22 08:24 04/27/22 08:24 04/27/22 08:24 04/27/22 08:32 04/27/22 08:32 Oxygen Flow Rate (L/min) 3.5 Oxygen Delivery Method Nasal Cannula Weight: 201 lb 14.4 oz Body Mass Index (BMI) 35.7 Intake & Output: Intake and Output for Last 24 Hours 04/26/22 04/27/22 04/28/22 03:59 03:59 03:59 Intake Total 1010 / 1010 Output Total 1150 / 1150 300 / 300 Balance -140 / -140 -300 / -300 Lab / Micro Data Result Diagrams: 04/27/22 05:20 04/27/22 05:20 Labs: Laboratory Results - last 24 hr 04/26/22 11:29: POC Glucose 321 H 04/26/22 16:19: POC Glucose 311 H 04/26/22 21:55: POC Glucose 306 H 04/27/22 05:20: WBC 14.7 H, RBC 3.57 L, Hgb 10.5 L, Hct 32.2 L, MCV 90.2, MCH 29.4, MCHC 32.6, RDW Std Deviation 49.3 H, RDW Coeff of Doretha 14.9 H, Plt Count 273, MPV 10.4, Immature Gran % (Auto) 0.600, Neut % (Auto) 88.7 H, Lymph % (Auto) 7.9 L, Emery % (Auto) 2.7, Eos % (Auto) 0.0, Baso % (Auto) 0.1, Absolute Neuts (auto) 13.1 H, Absolute Lymphs (auto) 1.16, Nucleated RBC % 0 04/27/22 05:20: Sodium 138, Potassium 4.7, Chloride 105, Carbon Dioxide 26.0, Anion Gap 7, BUN 17, Creatinine 0.74, Estim Creat Clear Calc 41.45, Est GFR (MDRD) Af Amer 99, Est GFR (MDRD) Non-Af 82, BUN/Creatinine Ratio 23.1 H, Glucose 253 H, Calcium 8.5 04/27/22 06:27: POC Glucose 246 H Micro: Microbiology 04/25/22 18:03 Sputum, Expectorated/Coughed Gram Stain - Final 04/25/22 18:03 Sputum, Expectorated/Coughed Respiratory Culture - Preliminary Appears to be normal respiratory kayla. Further studies to follow. Rhythm Strip Rhythm Strip: Sinus Rhythm Rate: 82 Ectopy: None Physical Exam Narrative General: Alert, Oriented x3, Cooperative, No apparent distress HEENT: Atraumatic, PERRLA, EOMI, Normocephalic Oral: Moist Mucosa Neck: Supple, No JVD Lungs: Diminished, Normal air movement, No rhonchi, wheeze, No rales Cardiovascular: Regular rate, Regular Rhythm, Normal S1, Normal S2, No murmurs Abdomen: Soft, Non Tender, Non-Distended, No Hepato-splenomegaly Extremities: Trace edema, Capillary Refill Less than 3 Seconds Skin: No rashes, No breakdown Musculoskeletal: No Tenderness to Palpation of Joints or Extremities Neurological: Cranial nerves II-XII grossly intact, Motor Exam 5/5 strength throughout, Sensory exam intact to light touch and pain Psych/Mental Status: Normal Affect, Appropriate Assessment & Plan Assessment/Plan (1) Acute dyspnea: PLAN: Plan 1. Acute COPD exacerbation with chronic hypoxic respiratory failure/tobacco dependence/history of lung cancer/SHANA ? She wears about 2-1/2 L of oxygen nasal cannula at home which she is on here ? She also wears trilogy at night which she has been continuing to wear. She has noticed that she has been having more dyspnea on exertion ? Echo from last year is unremarkable ? We will consult pulmonology given her recent admission for the same thing ? Discussed tobacco cessation ? She is being monitored as an outpatient for her lung cancer ? Continue with azithromycin and steroids, also obtain an ambulatory pulse ox ? PT/OT, she feels that she might benefit from further therapy at [facility] pre-CERT is pending 2. CAD/ischemic cardiomyopathy/HTN/HLD ?We will continue to monitor her blood pressure, can continue with her home blood pressure medications ? Continue with her Lipitor ? Continue with her aspirin and Plavix as well as her daily Lasix 3. DM2 ? Continue with Accu-Cheks and sliding scale insulin ? We will monitor and make adjustments as necessary 4. Anxiety/depression/restless leg syndrome ? Stable ? Continue with her home medications DVT: Lovenox Charges/Coding Visit Charges OBSV E&M: 55573 Subsequent observation care L2
[2022-04-27] MEDS: Enoxaparin 40 MG/0.4 ML Syringe SC (09:43)
[2022-04-27] MEDS: Azithromycin 250 MG Tablet 500 MG PO (09:43)
[2022-04-27] MEDS: Sertraline 50 MG Tablet PO (09:44)
[2022-04-27] MEDS: Clopidogrel Bisulfate 75 MG Tablet PO (09:44)
[2022-04-27 12:05] LABS: Bedside Glucose 356 mg/dL (74-106)
[2022-04-27 17:00] LABS: Bedside Glucose 415 mg/dL (74-106)
[2022-04-27] MEDS: traZODone 100 MG Tablet PO (21:46)
[2022-04-27] MEDS: Atorvastatin Calcium 80 MG Tablet PO (21:46)
[2022-04-27] MEDS: Pramipexole Di-HCl 0.5 MG Tablet 1.5 MG PO (21:46)
[2022-04-27 22:05] LABS: Bedside Glucose 335 mg/dL (74-106)
[2022-04-28] VITALS (12 sets, daily range): BP systolic 107–152; BP diastolic 57–72; PULSE 72–89; RESP 18–20; TEMP 36.4–36.8; O2SAT 94–97
[2022-04-28] MEDS: Insulin Lispro 100 UNIT/ML INSULN.PEN SC ×4 (06:30→21:40)
[2022-04-28 06:55] LABS: Bedside Glucose 212 mg/dL (74-106)
[2022-04-28 07:24] LABS: Anion Gap 5 (5-15); BUN 25 mg/dL (7-18); BUN/Creat Ratio 32.1 RATIO (10-20); Calcium,Total 8.6 mg/dL (8.5-10.1); Chloride 105 mmol/L (98-107); Creatinine, Serum 0.78 mg/dL (0.55-1.02); EST Glomerular Filtration Rate 77 mL/min (>60); Est Glom Filt Rate - Afr Amer 93 mL/min (>60); Estimated Creatinine Clearance 41.45 ml/min; Glucose 202 mg/dL (74-106); Potassium 4.2 mmol/L (3.5-5.1); Sodium Level 137 mmol/L (136-145)
[2022-04-28] MEDS: Ipratropium/Albuterol Sulfate 3 ML AMPUL.NEB INHALATION ×5 (07:39→22:27)
[2022-04-28] MEDS: predniSONE 20 MG Tablet 40 MG PO (07:55)
[2022-04-28] MEDS: Aspirin 81 MG TAB.CHEW PO (07:55)
--- NOTE | 2022-04-28 08:09 | PN.CC_ITS ---
Assessment & Plan Assessment/Plan (1) Hypoxia: (2) COPD exacerbation: (3) Sleep apnea: QUALIFIERS: Sleep apnea type: obstructive Qualified Code(s): G47.33 - Obstructive sleep apnea (adult) (pediatric) (4) Hx of pulmonary embolus: PLAN: Plan RECOMMENDATIONS: 1. Complete 5-day burst of prednisone 2. Okay to continue with additional Lasix while hospitalized 3. Encourage 4 L/min supplemental oxygen with activity 4. Okay to continue trilogy at the current settings 5. Hemodynamically stable on baseline supplemental oxygen. Will sign off from a pulmonary perspective 6. 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 Acute exacerbation of COPD/chronic hypoxic respiratory failure/SHANA/history of lung CA Exact severity of lung dysfunction is unclear at this time. Patient has had multiple exacerbations of COPD in the last 3 months. None of these have been noted to have pathologic organisms on sputum culture. Review of the CT scan does show a possible area of bronchiectasis in the right middle lobe on image 108. Patient would benefit from initiation of Acapella therapy on an ongoing basis. Clinical suspicion for recurrent admissions secondary to hypoxia leading to elevated pulmonary artery pressures. Walking oximetry confirms patient likely hypoxic on 2-1/2 L/min. Patient did tolerate diuresis well but this can be continued while in the hospital. Given relative stability, will sign off from a pulmonary/critical care perspective. Patient should follow-up with primary [employer] optical goods worker following discharge 2. CAD/ischemic cardiomyopathy/hypertension/hyperlipidemia/obesity Stable. Patient's last echocardiogram appears to be a year ago [facility] [place]. Patient is on appropriate medical therapy. Patient does have an element of diastolic dysfunction that can be acutely exacerbated by tachycardia associated with hypoxia. Patient does not have an elevation in troponin, so acute coronary syndrome is unlikely. BNP is not elevated, but if patient is having transient flash pulmonary edema associated with the tachycardia this may not lead to an elevated BNP 3. Diabetes mellitus/anxiety/depression/restless leg/obes ity/debility/tobacco abuse Complicates care, management, recovery and prognosis. Stressed to the patient the risks of smoking with supplemental oxygen in place. Patient is on appropriate medical therapy at this time. We will have to watch blood sugars closely given systemic steroids. Subjective Subjective Patient did well overnight. No acute issues were reported. Patient subjectively feels slightly improved compared to yesterday. Patient is not reporting any chest pain. Patient tolerated trilogy overnight without issue. Objective Data Objective Data Patient did have a walking oximetry requiring 4 L nasal cannula for ambulation to maintain appropriate saturations Vital Signs: Vital Signs Temp Pulse Resp BP Pulse Ox O2 Del Method O2 Flow Rate 36.6 C 79 20 H 107/57 L 95 Bi-pap 2.5 04/28/22 02:15 04/28/22 07:40 04/28/22 07:40 04/28/22 02:15 04/28/22 02:17 04/28/22 02:17 04/28/22 02:17 Oxygen Flow Rate (L/min) [ 4.0 AMBULATING with Oxygen #3] Oxygen Flow Rate (L/min) [ 3.5 AMBULATING with Oxygen #2] Oxygen Flow Rate (L/min) [ 2.5 AMBULATING with Oxygen #1] Oxygen Flow Rate (L/min) [At 2.5 REST with Oxygen] Oxygen Flow Rate (L/min) 2.5 Oxygen Delivery Method Bi-pap Weight: 91.58 kg Body Mass Index (BMI) 35.7 Intake & Output: Intake and Output for Last 24 Hours 04/26/22 04/27/22 04/28/22 23:59 23:59 23:59 Intake Total 1010 / 1010 900 / 900 Output Total 1150 / 1150 1225 / 1475 700 / 700 Balance -140 / -140 -325 / -575 -700 / -700 Lab / Micro Data Attestation: I reviewed the patient's lab results. Result Diagrams: 04/27/22 05:20 04/28/22 06:40 Labs: Laboratory Results - last 24 hr 04/27/22 11:41: POC Glucose 356 H 04/27/22 15:55: POC Glucose 415 H 04/27/22 21:45: POC Glucose 335 H 04/28/22 06:30: POC Glucose 212 H 04/28/22 06:40: Sodium 137, Potassium 4.2, Chloride 105, Carbon Dioxide 27.0, Anion Gap 5, BUN 25 H, Creatinine 0.78, Estim Creat Clear Calc 41.45, Est GFR (MDRD) Af Amer 93, Est GFR (MDRD) Non-Af 77, BUN/Creatinine Ratio 32.1 H, Glucose 202 H, Calcium 8.6 Micro: Microbiology 04/25/22 18:03 Sputum, Expectorated/Coughed Gram Stain - Final 04/25/22 18:03 Sputum, Expectorated/Coughed Respiratory Culture - Preliminary Appears to be normal respiratory kayla. Further studies to follow. Physical Exam Const alert, oriented x3 and no apparent distress Constitutional Narrative: On trilogy with good synchrony. HEENT head/scalp atraumatic and moist oral mucous membranes Eyes conjunctivae normal and no scleral icterus Neck no lymphadenopathy and supple Resp normal respiratory effort Effort and Inspection: able to speak in complete sentences and symmetric chest movement Auscultation: diminished lung sounds; Negative for rales, rhonchi or wheezes Cardio regular rate, regular rhythm, S1 normal heart sound, S2 normal heart sound, no murmurs, no rub and no gallops GI normal to inspection, nondistended, normoactive bowel sounds, soft to palpation and non-tender Extremity normal to inspection and full ROM General Extremity: edema bilateral (Improving); Negative for clubbing Skin no rashes or lesions noted Neuro oriented x3, moves all extremities, no focal motor deficits and no sensory deficits noted Psych affect normal Charges/Coding Visit Charges Inpatient E&M: 84156 Subs Hosp L2
--- NOTE | 2022-04-28 08:53 | EKG12_ITS ---
Test Reason : CHEST PAIN Blood Pressure : / mmHG Vent. Rate : 075 BPM Atrial Rate : 075 BPM P-R Int : 184 ms QRS Dur : 094 ms QT Int : 384 ms P-R-T Axes : 057 040 051 degrees QTc Int : 428 ms Sinus rhythm with Premature atrial complexes Nonspecific T wave abnormality Abnormal ECG No previous ECGs available Confirmed by GINO RUSHING, JANNETTE ([id number]), makeup editor AYANNA LORENZO ([id number]) on 05/01/2022 9:26:32 AM Referred By: SHANT Confirmed By:KAMI CHRISTIAN MD
--- NOTE | 2022-04-28 09:03 | PCM.PN.HOSP ---
Subjective Subjective Doing well, no issues overnight. She is maintaining her oxygen saturations on her home O2 levels. Yesterday she needed about 3-1/2 to 4 L of oxygen while ambulating Objective Data Objective Data Vital Signs: Vital Signs Temp Pulse Resp BP Pulse Ox O2 Del Method O2 Flow Rate 97.9 F 79 20 H 107/57 L 95 Bi-pap 2.5 04/28/22 02:15 04/28/22 07:40 04/28/22 07:40 04/28/22 02:15 04/28/22 02:17 04/28/22 02:17 04/28/22 02:17 Oxygen Flow Rate (L/min) [ 4.0 AMBULATING with Oxygen #3] Oxygen Flow Rate (L/min) [ 3.5 AMBULATING with Oxygen #2] Oxygen Flow Rate (L/min) [ 2.5 AMBULATING with Oxygen #1] Oxygen Flow Rate (L/min) [At 2.5 REST with Oxygen] Oxygen Flow Rate (L/min) 2.5 Oxygen Delivery Method Bi-pap Weight: 201 lb 14.4 oz Body Mass Index (BMI) 35.7 Intake & Output: Intake and Output for Last 24 Hours 04/27/22 04/28/22 04/29/22 03:59 03:59 03:59 Intake Total 1010 / 1010 900 / 900 Output Total 1150 / 1150 1475 / 1475 450 / 450 Balance -140 / -140 -575 / -575 -450 / -450 Lab / Micro Data Result Diagrams: 04/27/22 05:20 04/28/22 06:40 Labs: Laboratory Results - last 24 hr 04/27/22 11:41: POC Glucose 356 H 04/27/22 15:55: POC Glucose 415 H 04/27/22 21:45: POC Glucose 335 H 04/28/22 06:30: POC Glucose 212 H 04/28/22 06:40: Sodium 137, Potassium 4.2, Chloride 105, Carbon Dioxide 27.0, Anion Gap 5, BUN 25 H, Creatinine 0.78, Estim Creat Clear Calc 41.45, Est GFR (MDRD) Af Amer 93, Est GFR (MDRD) Non-Af 77, BUN/Creatinine Ratio 32.1 H, Glucose 202 H, Calcium 8.6 Micro: Microbiology 04/25/22 18:03 Sputum, Expectorated/Coughed Gram Stain - Final 04/25/22 18:03 Sputum, Expectorated/Coughed Respiratory Culture - Preliminary Appears to be normal respiratory kayla. Further studies to follow. Rhythm Strip Rhythm Strip: Sinus Rhythm Rate: 82 Ectopy: None Physical Exam Narrative General: Alert, Oriented x3, Cooperative, No apparent distress HEENT: Atraumatic, PERRLA, EOMI, Normocephalic Oral: Moist Mucosa Neck: Supple, No JVD Lungs: Diminished, Normal air movement, No rhonchi, wheeze, No rales Cardiovascular: Regular rate, Regular Rhythm, Normal S1, Normal S2, No murmurs Abdomen: Soft, Non Tender, Non-Distended, No Hepato-splenomegaly Extremities: Trace edema, Capillary Refill Less than 3 Seconds Skin: No rashes, No breakdown Musculoskeletal: No Tenderness to Palpation of Joints or Extremities Neurological: Cranial nerves II-XII grossly intact, Motor Exam 5/5 strength throughout, Sensory exam intact to light touch and pain Psych/Mental Status: Normal Affect, Appropriate Assessment & Plan Assessment/Plan (1) Acute dyspnea: PLAN: Plan 1. Acute COPD exacerbation with chronic hypoxic respiratory failure/tobacco dependence/history of lung cancer/SHANA ? She wears about 2-1/2 L of oxygen nasal cannula at home which she is on here ? She also wears trilogy at night which she has been continuing to wear. She has noticed that she has been having more dyspnea on exertion ? Echo from last year is unremarkable ? We will consult pulmonology given her recent admission for the same thing ? Discussed tobacco cessation ? She is being monitored as an outpatient for her lung cancer ? Continue with azithromycin and steroids, also obtain an ambulatory pulse ox ? PT/OT, she feels that she might benefit from further therapy at [facility] pre-CERT is pending 2. CAD/ischemic cardiomyopathy/HTN/HLD ?We will continue to monitor her blood pressure, can continue with her home blood pressure medications ? Continue with her Lipitor ? Continue with her aspirin and Plavix as well as her daily Lasix ? She did have some chest pain on admission however CT of the chest was unremarkable and troponins were negative and EKG was nonischemic 3. DM2 ? Continue with Accu-Cheks and sliding scale insulin ? We will monitor and make adjustments as necessary 4. Anxiety/depression/restless leg syndrome ? Stable ? Continue with her home medications DVT: Lovenox Charges/Coding Visit Charges OBSV E&M: 17573 Subsequent observation care L2
[2022-04-28] MEDS: Clopidogrel Bisulfate 75 MG Tablet PO (09:05)
[2022-04-28] MEDS: Furosemide 20 MG Tablet PO (09:05)
[2022-04-28] MEDS: Enoxaparin 40 MG/0.4 ML Syringe SC (09:05)
[2022-04-28] MEDS: Azithromycin 250 MG Tablet 500 MG PO (09:05)
[2022-04-28] MEDS: Sertraline 50 MG Tablet PO (09:05)
--- NOTE | 2022-04-28 10:25 | NURSING ---
DR VIRGEN WAS NOTIFIED C/O UNDER RT BREAST PAIN RADIATING INTO CHEST/NECK. EKG PICTURE SENT. NO NEW ORDERS
[2022-04-28 12:21] LABS: Bedside Glucose 219 mg/dL (74-106)
[2022-04-28 16:31] LABS: Bedside Glucose 314 mg/dL (74-106)
[2022-04-28] MEDS: traZODone 100 MG Tablet PO (21:41)
[2022-04-28] MEDS: Atorvastatin Calcium 80 MG Tablet PO (21:41)
[2022-04-28] MEDS: Pramipexole Di-HCl 0.5 MG Tablet 1.5 MG PO (21:41)
[2022-04-28 22:20] LABS: Bedside Glucose 256 mg/dL (74-106)
[2022-04-29] VITALS (12 sets, daily range): BP systolic 127–145; BP diastolic 61–78; PULSE 68–95; RESP 16–22; TEMP 36.4–36.6; O2SAT 93–97
[2022-04-29] MEDS: Ipratropium/Albuterol Sulfate 3 ML AMPUL.NEB INHALATION ×6 (02:10→22:48)
[2022-04-29 07:15] LABS: Bedside Glucose 136 mg/dL (74-106)
[2022-04-29] MEDS: Aspirin 81 MG TAB.CHEW PO (07:50)
[2022-04-29] MEDS: Sertraline 50 MG Tablet PO (07:50)
[2022-04-29] MEDS: Clopidogrel Bisulfate 75 MG Tablet PO (07:51)
[2022-04-29] MEDS: Furosemide 20 MG Tablet PO (07:51)
[2022-04-29] MEDS: Azithromycin 250 MG Tablet 500 MG PO (07:51)
[2022-04-29] MEDS: Enoxaparin 40 MG/0.4 ML Syringe SC (07:51)
[2022-04-29] MEDS: predniSONE 20 MG Tablet 40 MG PO (07:51)
--- NOTE | 2022-04-29 09:17 | PN.HOSP_ITS ---
Subjective Subjective Doing well, no issues overnight. Discharges pending pre-CERT Objective Data Objective Data Vital Signs: Vital Signs Temp Pulse Resp BP Pulse Ox O2 Del Method O2 Flow Rate 97.5 F L 74 16 145/78 H 96 Nasal Cannula 3 04/29/22 08:12 04/29/22 08:12 04/29/22 08:12 04/29/22 08:12 04/29/22 08:12 04/29/22 08:12 04/29/22 08:12 Oxygen Flow Rate (L/min) [ 4.0 AMBULATING with Oxygen #3] Oxygen Flow Rate (L/min) [ 3.5 AMBULATING with Oxygen #2] Oxygen Flow Rate (L/min) [ 2.5 AMBULATING with Oxygen #1] Oxygen Flow Rate (L/min) [At 2.5 REST with Oxygen] Oxygen Flow Rate (L/min) 3 Oxygen Delivery Method Nasal Cannula Weight: 201 lb 14.4 oz Body Mass Index (BMI) 35.7 Intake & Output: Intake and Output for Last 24 Hours 04/28/22 04/29/22 04/30/22 03:59 03:59 03:59 Intake Total 900 / 900 Output Total 1475 / 1475 2049 / 2049 300 / 300 Balance -575 / -575 -2049 / -2049 -300 / -300 Lab / Micro Data Result Diagrams: 04/27/22 05:20 04/28/22 06:40 Labs: Laboratory Results - last 24 hr 04/28/22 11:54: POC Glucose 219 H 04/28/22 16:04: POC Glucose 314 H 04/28/22 21:38: POC Glucose 256 H 04/29/22 06:55: POC Glucose 136 H Micro: Microbiology 04/25/22 18:03 Sputum, Expectorated/Coughed Gram Stain - Final 04/25/22 18:03 Sputum, Expectorated/Coughed Respiratory Culture - Final Mixed normal respiratory kayla. No Streptococcus pneumoniae, beta-hemolytic Streptococcus or Staphylococcus aureus isolated. Rhythm Strip Rhythm Strip: Sinus Rhythm Rate: 82 Ectopy: None Physical Exam Narrative General: Alert, Oriented x3, Cooperative, No apparent distress HEENT: Atraumatic, PERRLA, EOMI, Normocephalic Oral: Moist Mucosa Neck: Supple, No JVD Lungs: Diminished, Normal air movement, No rhonchi, wheeze, No rales Cardiovascular: Regular rate, Regular Rhythm, Normal S1, Normal S2, No murmurs Abdomen: Soft, Non Tender, Non-Distended, No Hepato-splenomegaly Extremities: Trace edema, Capillary Refill Less than 3 Seconds Skin: No rashes, No breakdown Musculoskeletal: No Tenderness to Palpation of Joints or Extremities Neurological: Cranial nerves II-XII grossly intact, Motor Exam 5/5 strength t hroughout, Sensory exam intact to light touch and pain Psych/Mental Status: Normal Affect, Appropriate Assessment & Plan Assessment/Plan (1) Acute dyspnea: PLAN: Plan 1. Acute COPD exacerbation with chronic hypoxic respiratory failure/tobacco dependence/history of lung cancer/SHANA ? She wears about 2-1/2 L of oxygen nasal cannula at home which she is on here ? She also wears trilogy at night which she has been continuing to wear. She has noticed that she has been having more dyspnea on exertion ? Echo from last year is unremarkable ? We will consult pulmonology given her recent admission for the same thing ? Discussed tobacco cessation ? She is being monitored as an outpatient for her lung cancer ? She has completed azithromycin, last dose of steroids will be tomorrow morning ? PT/OT, she feels that she might benefit from further therapy at SNF pre-CERT is pending 2. CAD/ischemic cardiomyopathy/HTN/HLD ?We will continue to monitor her blood pressure, can continue with her home bl ood pressure medications ? Continue with her Lipitor ? Continue with her aspirin and Plavix as well as her daily Lasix ? She did have some chest pain on admission however CT of the chest was unremarkable and troponins were negative and EKG was nonischemic 3. DM2 ? Continue with Accu-Cheks and sliding scale insulin ? We will monitor and make adjustments as necessary 4. Anxiety/depression/restless leg syndrome ? Stable ? Continue with her home medications DVT: Lovenox Charges/Coding Visit Charges OBSV E&M: 16834 Subsequent observation care L2
[2022-04-29] MEDS: Insulin Lispro 100 UNIT/ML INSULN.PEN SC ×3 (11:04→21:45)
[2022-04-29 11:40] LABS: Bedside Glucose 266 mg/dL (74-106)
[2022-04-29 16:25] LABS: Bedside Glucose 283 mg/dL (74-106)
[2022-04-29] MEDS: Pramipexole Di-HCl 0.5 MG Tablet 1.5 MG PO (21:46)
[2022-04-29] MEDS: Atorvastatin Calcium 80 MG Tablet PO (21:46)
[2022-04-29] MEDS: traZODone 100 MG Tablet PO (21:46)
[2022-04-29 22:10] LABS: Bedside Glucose 202 mg/dL (74-106)
[2022-04-30] VITALS (11 sets, daily range): BP systolic 122–147; BP diastolic 53–79; PULSE 78–95; RESP 16–22; TEMP 36.4–36.7; O2SAT 93–99
[2022-04-30] MEDS: Ipratropium/Albuterol Sulfate 3 ML AMPUL.NEB INHALATION ×6 (02:29→22:50)
[2022-04-30] MEDS: Insulin Lispro 100 UNIT/ML INSULN.PEN SC ×4 (06:47→21:46)
[2022-04-30 06:48] LABS: Anion Gap 7 (5-15); BUN 27 mg/dL (7-18); Calcium,Total 8.2 mg/dL (8.5-10.1); Chloride 104 mmol/L (98-107); Creatinine, Serum 0.73 mg/dL (0.55-1.02); EST Glomerular Filtration Rate 83 mL/min (>60); Est Glom Filt Rate - Afr Amer 100 mL/min (>60); Estimated Creatinine Clearance 41.45 ml/min; Glucose 146 mg/dL (74-106); Potassium 4.1 mmol/L (3.5-5.1); Sodium Level 139 mmol/L (136-145)
[2022-04-30 07:10] LABS: Bedside Glucose 150 mg/dL (74-106)
--- NOTE | 2022-04-30 08:32 | PCM.PN.HOSP ---
Subjective Subjective Doing well, no issues overnight. Maintaining her oxygen saturations on 2 to 3 L nasal cannula. Objective Data Objective Data Vital Signs: Vital Signs Temp Pulse Resp BP Pulse Ox O2 Del Method O2 Flow Rate 97.7 F L 79 16 122/79 H 95 Nasal Cannula 4 04/30/22 03:30 04/30/22 07:12 04/30/22 07:12 04/30/22 03:30 04/30/22 07:12 04/30/22 03:30 04/30/22 08:09 Oxygen Flow Rate (L/min) [ 4.0 AMBULATING with Oxygen #3] Oxygen Flow Rate (L/min) [ 3.5 AMBULATING with Oxygen #2] Oxygen Flow Rate (L/min) [ 2.5 AMBULATING with Oxygen #1] Oxygen Flow Rate (L/min) [At 2.5 REST with Oxygen] Oxygen Flow Rate (L/min) 4 Oxygen Delivery Method Nasal Cannula Weight: 201 lb 14.4 oz Body Mass Index (BMI) 35.7 Intake & Output: Intake and Output for Last 24 Hours 04/29/22 04/30/22 05/01/22 03:59 03:59 03:59 Intake Total 1050 / 1050 Output Total 2049 / 2049 1200 / 1200 500 / 500 Balance -2049 / -2049 -150 / -150 -500 / -500 Lab / Micro Data Result Diagrams: 04/27/22 05:20 04/30/22 05:20 Labs: Laboratory Results - last 24 hr 04/29/22 11:02: POC Glucose 266 H 04/29/22 16:06: POC Glucose 283 H 04/29/22 21:44: POC Glucose 202 H 04/30/22 05:20: Sodium 139, Potassium 4.1, Chloride 104, Carbon Dioxide 28.0, Anion Gap 7, BUN 27 H, Creatinine 0.73, Estim Creat Clear Calc 41.45, Est GFR (MDRD) Af Amer 100, Est GFR (MDRD) Non-Af 83, BUN/Creatinine Ratio 37.0 H, Glucose 146 H, Calcium 8.2 L 04/30/22 06:46: POC Glucose 150 H Micro: Microbiology 04/25/22 18:03 Sputum, Expectorated/Coughed Gram Stain - Final 04/25/22 18:03 Sputum, Expectorated/Coughed Respiratory Culture - Final Mixed normal respiratory kayla. No Streptococcus pneumoniae, beta-hemolytic Streptococcus or Staphylococcus aureus isolated. Rhythm Strip Rhythm Strip: Sinus Rhythm Rate: 82 Ectopy: None Physical Exam Narrative General: Alert, Oriented x3, Cooperative, No apparent distress HEENT: Atraumatic, PERRLA, EOMI, Normocephalic Oral: Moist Mucosa Neck: Supple, No JVD Lungs: Diminished, Normal air movement, No rhonchi, wheeze, No rales Cardiovascular: Regular rate, Regular Rhythm, Normal S1, Normal S2, No murmurs Abdomen: Soft, Non Tender, Non-Distended, No Hepato-splenomegaly Extremities: Trace edema, Capillary Refill Less than 3 Seconds Skin: No rashes, No breakdown Musculoskeletal: No Tenderness to Palpation of Joints or Extremities Neurological: Cranial nerves II-XII grossly intact, Motor Exam 5/5 strength throughout, Sensory exam intact to light touch and pain Psych/Mental Status: Normal Affect, Appropriate Assessment & Plan Assessment/Plan (1) Acute dyspnea: PLAN: Plan 1. Acute COPD exacerbation with chronic hypoxic respiratory failure/tobacco dependence/history of lung cancer/SHANA ? She wears about 2-1/2 L of oxygen nasal cannula at home which she is on here ? She also wears trilogy at night which she has been continuing to wear. She has noticed that she has been having more dyspnea on exertion ? Echo from last year is unremarkable ? Appreciate pulmonology's assistance ? Discussed tobacco cessation ? She is being monitored as an outpatient for her lung cancer ? She has completed azithromycin, last dose of steroids will be tomorrow morning ? PT/OT, she feels that she might benefit from further therapy at SNF pre-CERT is pending 2. CAD/ischemic cardiomyopathy/HTN/HLD ?We will continue to monitor her blood pressure, can continue with her home blood pressure medications ? Continue with her Lipitor ? Continue with her aspirin and Plavix as well as her daily Lasix ? She did have some chest pain on admission however CT of the chest was unremarkable and troponins were negative and EKG was nonischemic 3. DM2 ? Continue with Accu-Cheks and sliding scale insulin ? We will monitor and make adjustments as necessary 4. Anxiety/depression/restless leg syndrome ? Stable ? Continue with her home medications DVT: Lovenox Charges/Coding Visit Charges OBSV E&M: 70017 Subsequent observation care L2
[2022-04-30] MEDS: predniSONE 20 MG Tablet 40 MG PO (10:02)
[2022-04-30] MEDS: Sertraline 50 MG Tablet PO (10:02)
[2022-04-30] MEDS: Enoxaparin 40 MG/0.4 ML Syringe SC (10:02)
[2022-04-30] MEDS: Furosemide 20 MG Tablet PO (10:02)
[2022-04-30] MEDS: Clopidogrel Bisulfate 75 MG Tablet PO (10:02)
[2022-04-30] MEDS: Aspirin 81 MG TAB.CHEW PO (10:03)
[2022-04-30 11:55] LABS: Bedside Glucose 172 mg/dL (74-106)
[2022-04-30 17:01] LABS: Bedside Glucose 371 mg/dL (74-106)
--- NOTE | 2022-04-30 21:06 | NURSING ---
pt requested HS snack of paco doones & a regular Sprite (ref diet sprite)
[2022-04-30 22:06] LABS: Bedside Glucose 235 mg/dL (74-106)
[2022-04-30] MEDS: Pramipexole Di-HCl 0.5 MG Tablet 1.5 MG PO (23:11)
[2022-04-30] MEDS: traZODone 100 MG Tablet PO (23:12)
[2022-04-30] MEDS: Atorvastatin Calcium 80 MG Tablet PO (23:12)
[2022-05-01] VITALS (11 sets, daily range): BP systolic 125–152; BP diastolic 51–83; PULSE 71–88; RESP 16–23; TEMP 36.2–36.8; O2SAT 94–98
[2022-05-01 06:55] LABS: Bedside Glucose 123 mg/dL (74-106)
[2022-05-01] MEDS: Ipratropium/Albuterol Sulfate 3 ML AMPUL.NEB INHALATION ×5 (08:06→23:12)
[2022-05-01] MEDS: Aspirin 81 MG TAB.CHEW PO (08:22)
--- NOTE | 2022-05-01 08:45 | CASEMGMT ---
Discharge Diet Clerk Wilma rivera/virgen gunter reached out to Sandra in regards to referral that was sent last week. Wilma rivera/virgen clerical assistant left a voicemail. Will follow up. Plan: Sandra, Waiting Acceptance Wilma Collazo Discharge Diet Clerk
[2022-05-01] MEDS: Enoxaparin 40 MG/0.4 ML Syringe SC (10:07)
[2022-05-01] MEDS: Sertraline 50 MG Tablet PO (10:08)
[2022-05-01] MEDS: Clopidogrel Bisulfate 75 MG Tablet PO (10:08)
[2022-05-01] MEDS: Furosemide 20 MG Tablet PO (10:08)
--- NOTE | 2022-05-01 11:02 | PCM.PN.HOSP ---
Subjective Subjective Doing well, waiting for pre-CERT Objective Data Objective Data Vital Signs: Vital Signs Temp Pulse Resp BP Pulse Ox O2 Del Method O2 Flow Rate 97.1 F L 82 23 H 152/54 H 95 Nasal Cannula 3 05/01/22 07:47 05/01/22 08:32 05/01/22 08:32 05/01/22 07:47 05/01/22 08:32 05/01/22 08:32 05/01/22 08:32 Oxygen Flow Rate (L/min) [ 4.0 AMBULATING with Oxygen #3] Oxygen Flow Rate (L/min) [ 3.5 AMBULATING with Oxygen #2] Oxygen Flow Rate (L/min) [ 2.5 AMBULATING with Oxygen #1] Oxygen Flow Rate (L/min) [At 2.5 REST with Oxygen] Oxygen Flow Rate (L/min) 3 Oxygen Delivery Method Nasal Cannula Weight: 201 lb 14.4 oz Body Mass Index (BMI) 35.7 Intake & Output: Intake and Output for Last 24 Hours 04/30/22 05/01/22 05/02/22 03:59 03:59 03:59 Intake Total 1050 / 1050 840 / 840 Output Total 1200 / 1200 500 / 500 300 / 300 Balance -150 / -150 340 / 340 -300 / -300 Lab / Micro Data Result Diagrams: 04/27/22 05:20 04/30/22 05:20 Labs: Laboratory Results - last 24 hr 04/30/22 11:29: POC Glucose 172 H 04/30/22 16:38: POC Glucose 371 H 04/30/22 21:44: POC Glucose 235 H 05/01/22 06:37: POC Glucose 123 H Micro: Microbiology 04/25/22 18:03 Sputum, Expectorated/Coughed Gram Stain - Final 04/25/22 18:03 Sputum, Expectorated/Coughed Respiratory Culture - Final Mixed normal respiratory kayla. No Streptococcus pneumoniae, beta-hemolytic Streptococcus or Staphylococcus aureus isolated. Rhythm Strip Rhythm Strip: Sinus Rhythm Rate: 82 Ectopy: None Physical Exam Narrative General: Alert, Oriented x3, Cooperative, No apparent distress HEENT: Atraumatic, PERRLA, EOMI, Normocephalic Oral: Moist Mucosa Neck: Supple, No JVD Lungs: Diminished, Normal air movement, No rhonchi, no wheeze, No rales Cardiovascular: Regular rate, Regular Rhythm, Normal S1, Normal S2, No murmurs Abdomen: Soft, Non Tender, Non-Distended, No Hepato-splenomegaly Extremities: Trace edema, Capillary Refill Less than 3 Seconds Skin: No rashes, No breakdown Musculoskeletal: No Tenderness to Palpation of Joints or Extremities Neurological: Cranial nerves II-XII grossly intact, Motor Exam 5/5 strength throughout, Sensory exam intact to light touch and pain Psych/Mental Status: Normal Affect, Appropriate Assessment & Plan Assessment/Plan (1) Acute dyspnea: PLAN: Plan 1. Acute COPD exacerbation with chronic hypoxic respiratory failure/tobacco dependence/history of lung cancer/SHANA ? She wears about 2-1/2 L of oxygen nasal cannula at home which she is on here ? She also wears trilogy at night which she has been continuing to wear. She has noticed that she has been having more dyspnea on exertion ? Echo from last year is unremarkable ? Appreciate pulmonology's assistance ? Discussed tobacco cessation ? She is being monitored as an outpatient for her lung cancer ? She has completed azithromycin, last dose of steroids will be tomorrow morning ? PT/OT, she feels that she might benefit from further therapy at SNF pre-CERT is pending 2. CAD/ischemic cardiomyopathy/HTN/HLD ?We will continue to monitor her blood pressure, can continue with her home blood pressure medications ? Continue with her Lipitor ? Continue with her aspirin and Plavix as well as her daily Lasix ? She did have some chest pain on admission however CT of the chest was unremarkable and troponins were negative and EKG was nonischemic 3. DM2 ? Continue with Accu-Cheks and sliding scale insulin ? We will monitor and make adjustments as necessary 4. Anxiety/depression/restless leg syndrome ? Stable ? Continue with her home medications DVT: Lovenox Charges/Coding Visit Charges OBSV E&M: 00572 Subsequent observation care L2
[2022-05-01 11:41] LABS: Bedside Glucose 167 mg/dL (74-106)
[2022-05-01] MEDS: Insulin Lispro 100 UNIT/ML INSULN.PEN SC (12:50)
--- NOTE | 2022-05-01 13:36 | CASEMGMT ---
Addendum entered by Justa Jones 05/01/22 14:45: SW in to inform pt of acceptance at [facility]. Pt asked about precert and SW informed it is possible to hear from [facility] today regarding precert but not likely as precert was started late afternoon. Pt understanding. Stated hopeful to hear from insurance on precert approval tomorrow. Original Note: Social Work SW called [facility] at 11:32am to check on acceptance/precert for pt. SW spoke to volcanology professor and she took SW phone number and stated she would have someone call back to discuss. SW called back to [facility] at 1:30pm as no call back has been received. SW again left phone number and requested Admissions call back to give determination on acceptance of pt. Sw in to speak with pt. SW explained the delay in acceptance from [facility] and discussed possibly going to second choice. Pt requested to wait a little longer in hope [facility] will offer an update this afternoon. SW to check back with pt later this day. Plan: Continue to wait acceptance for [facility]. MEHDI Merchant
--- NOTE | 2022-05-01 14:05 | CASEMGMT ---
Discharge Elementary Substitute Teacher Wilma d/virgen conventions assistant called Sandra. Jeanna accepted patient at [place] and will start pre-cert. VANESA Marr notified. Plan: Sandra, Waiting Acceptance Wilma Collazo Discharge Elementary Substitute Teacher
[2022-05-01 16:40] LABS: Bedside Glucose 124 mg/dL (74-106)
[2022-05-01 22:25] LABS: Bedside Glucose 149 mg/dL (74-106)
[2022-05-01] MEDS: Pramipexole Di-HCl 0.5 MG Tablet 1.5 MG PO (22:54)
[2022-05-01] MEDS: traZODone 100 MG Tablet PO (22:54)
[2022-05-01] MEDS: Atorvastatin Calcium 80 MG Tablet PO (22:54)
[2022-05-02] VITALS (14 sets, daily range): BP systolic 119–147; BP diastolic 58–77; PULSE 68–89; RESP 12–18; TEMP 36.5–37; O2SAT 94–100
[2022-05-02] MEDS: Ipratropium/Albuterol Sulfate 3 ML AMPUL.NEB INHALATION ×6 (03:24→23:05)
[2022-05-02 06:45] LABS: Anion Gap 5 (5-15); BUN 21 mg/dL (7-18); BUN/Creat Ratio 31.4 RATIO (10-20); Calcium,Total 8.3 mg/dL (8.5-10.1); Chloride 107 mmol/L (98-107); Creatinine, Serum 0.67 mg/dL (0.55-1.02); EST Glomerular Filtration Rate 92 mL/min (>60); Est Glom Filt Rate - Afr Amer 111 mL/min (>60); Estimated Creatinine Clearance 41.45 ml/min; Glucose 108 mg/dL (74-106); Potassium 4.1 mmol/L (3.5-5.1); Sodium Level 140 mmol/L (136-145)
[2022-05-02 07:05] LABS: Bedside Glucose 119 mg/dL (74-106)
[2022-05-02] MEDS: Aspirin 81 MG TAB.CHEW PO (08:15)
[2022-05-02] MEDS: Enoxaparin 40 MG/0.4 ML Syringe SC (09:03)
[2022-05-02] MEDS: Clopidogrel Bisulfate 75 MG Tablet PO (09:03)
[2022-05-02] MEDS: Sertraline 50 MG Tablet PO (09:04)
[2022-05-02] MEDS: Furosemide 20 MG Tablet PO (09:04)
[2022-05-02 11:46] LABS: Bedside Glucose 138 mg/dL (74-106)
--- NOTE | 2022-05-02 14:21 | PCM.PN.HOSP ---
Subjective Subjective Doing well, no change Objective Data Objective Data Vital Signs: Vital Signs Temp Pulse Resp BP Pulse Ox O2 Del Method O2 Flow Rate 98.4 F 88 18 119/61 95 Nasal Cannula 2 05/02/22 08:45 05/02/22 10:38 05/02/22 10:38 05/02/22 08:45 05/02/22 10:15 05/02/22 08:57 05/02/22 10:15 FiO2 2.5 05/02/22 03:52 Oxygen Flow Rate (L/min) [ 4.0 AMBULATING with Oxygen #3] Oxygen Flow Rate (L/min) [ 3.5 AMBULATING with Oxygen #2] Oxygen Flow Rate (L/min) [ 2.5 AMBULATING with Oxygen #1] Oxygen Flow Rate (L/min) [At 2.5 REST with Oxygen] Oxygen Flow Rate (L/min) 2 Oxygen Delivery Method Nasal Cannula Weight: 201 lb 14.4 oz Body Mass Index (BMI) 35.7 Intake & Output: Intake and Output for Last 24 Hours 05/01/22 05/02/22 05/03/22 03:59 03:59 03:59 Intake Total 840 / 840 1050 / 1050 570 / 570 Output Total 500 / 500 300 / 300 600 / 600 Balance 340 / 340 750 / 750 -30 / -30 Lab / Micro Data Result Diagrams: 04/27/22 05:20 05/02/22 05:46 Labs: Laboratory Results - last 24 hr 05/01/22 16:20: POC Glucose 124 H 05/01/22 21:52: POC Glucose 149 H 05/02/22 05:46: Sodium 140, Potassium 4.1, Chloride 107, Carbon Dioxide 28.0, Anion Gap 5, BUN 21 H, Creatinine 0.67, Estim Creat Clear Calc 41.45, Est GFR (MDRD) Af Amer 111, Est GFR (MDRD) Non-Af 92, BUN/Creatinine Ratio 31.4 H, Glucose 108 H, Calcium 8.3 L 05/02/22 06:44: POC Glucose 119 H 05/02/22 11:22: POC Glucose 138 H Micro: Microbiology 04/25/22 18:03 Sputum, Expectorated/Coughed Gram Stain - Final 04/25/22 18:03 Sputum, Expectorated/Coughed Respiratory Culture - Final Mixed normal respiratory kayla. No Streptococcus pneumoniae, beta-hemolytic Streptococcus or Staphylococcus aureus isolated. Rhythm Strip Rhythm Strip: Sinus Rhythm Rate: 82 Ectopy: None Physical Exam Narrative General: Alert, Oriented x3, Cooperative, No apparent distress HEENT: Atraumatic, PERRLA, EOMI, Normocephalic Oral: Moist Mucosa Neck: Supple, No JVD Lungs: Diminished, Normal air movement, No rhonchi, no wheeze, No rales Cardiovascular: Regular rate, Regular Rhythm, Normal S1, Normal S2, No murmurs Abdomen: Soft, Non Tender, Non-Distended, No Hepato-splenomegaly Extremities: Trace edema, Capillary Refill Less than 3 Seconds Skin: No rashes, No breakdown Musculoskeletal: No Tenderness to Palpation of Joints or Extremities Neurological: Cranial nerves II-XII grossly intact, Motor Exam 5/5 strength throughout, Sensory exam intact to light touch and pain Psych/Mental Status: Normal Affect, Appropriate Assessment & Plan Assessment/Plan (1) Acute dyspnea: PLAN: Plan 1. Acute COPD exacerbation with chronic hypoxic respiratory failure/tobacco dependence/history of lung cancer/SHANA ? She wears about 2-1/2 L of oxygen nasal cannula at home which she is on here ? She also wears trilogy at night which she has been continuing to wear. She has noticed that she has been having more dyspnea on exertion ? Echo from last year is unremarkable ? Appreciate pulmonology's assistance ? Discussed tobacco cessation ? She is being monitored as an outpatient for her lung cancer ? She has completed azithromycin, as well as steroid ? PT/OT, she feels that she might benefit from further therapy at SNF pre-CERT is pending 2. CAD/ischemic cardiomyopathy/HTN/HLD ?We will continue to monitor her blood pressure, can continue with her home blood pressure medications ? Continue with her Lipitor ? Continue with her aspirin and Plavix as well as her daily Lasix ? She did have some chest pain on admission however CT of the chest was unremarkable and troponins were negative and EKG was nonischemic 3. DM2 ? Continue with Accu-Cheks and sliding scale insulin ? We will monitor and make adjustments as necessary 4. Anxiety/depression/restless leg syndrome ? Stable ? Continue with her home medications DVT: Lovenox Charges/Coding Visit Charges OBSV E&M: 14223 Subsequent observation care L1
[2022-05-02 16:45] LABS: Bedside Glucose 143 mg/dL (74-106)
[2022-05-02] MEDS: Insulin Lispro 100 UNIT/ML INSULN.PEN SC (21:47)
[2022-05-02] MEDS: Atorvastatin Calcium 80 MG Tablet PO (21:48)
[2022-05-02] MEDS: Pramipexole Di-HCl 0.5 MG Tablet 1.5 MG PO (21:48)
[2022-05-02] MEDS: traZODone 100 MG Tablet PO (23:24)
[2022-05-02 23:36] LABS: Bedside Glucose 197 mg/dL (74-106)
[2022-05-03] VITALS (10 sets, daily range): BP systolic 120–151; BP diastolic 58–69; PULSE 71–79; RESP 16–26; TEMP 36.6–37.6; O2SAT 94–99
[2022-05-03] MEDS: Ipratropium/Albuterol Sulfate 3 ML AMPUL.NEB INHALATION ×4 (03:08→15:12)
[2022-05-03 06:42] LABS: Bedside Glucose 132 mg/dL (74-106)
[2022-05-03] MEDS: Furosemide 20 MG Tablet PO (07:52)
[2022-05-03] MEDS: Enoxaparin 40 MG/0.4 ML Syringe SC (07:52)
[2022-05-03] MEDS: Sertraline 50 MG Tablet PO (07:52)
[2022-05-03] MEDS: Aspirin 81 MG TAB.CHEW PO (07:52)
[2022-05-03] MEDS: Clopidogrel Bisulfate 75 MG Tablet PO (07:52)
--- NOTE | 2022-05-03 10:03 | CASEMGMT ---
Addendum entered by Wilma Collazo 05/03/22 10:31: Zuleyka from [facility] reached out. Pre-cert is still pending. Plan: Sandra, Waiting pre-cert. Wilma Collazo Discharge Machine Bender Original Note: Discharge Machine Bender Wilma d/virgen administrative assistant reached out to [facility] via [facility]. Following up to see if pre-cert has been obtained yet. Will follow up. Plan: Sandra, Waiting pre-cert Wilma Collazo Discharge Machine Bender
[2022-05-03] MEDS: Insulin Lispro 100 UNIT/ML INSULN.PEN SC ×2 (11:02→16:42)
[2022-05-03 11:26] LABS: Bedside Glucose 175 mg/dL (74-106)
--- NOTE | 2022-05-03 13:28 | CASEMGMT ---
Addendum entered by Jazlyn Aceves 05/03/22 14:14: Social Work SW also spoke with pt regarding assisted living. Pt states she has thought about it, but has decided she is not ready for that step. SW spoke with pt regarding Assisted Living Waiver Program and provided written information. SW encouraged pt to talk to her [facility] CM Nanda Salazar regarding this option if it is something she would be interested in. Pt appreciative of the information. MEHDI Cabral Original Note: Social Work SW met with pt and introduced self and role of SW. SW informed that [facility] states they have spoke with insurance this morning and determination has not yet been made by insurance company. Pt voicing frustration about this. Discussed alternate discharge plans with pt. Pt stating she feels she would benefit from short term rehab and continues to want to go to [facility]. Pt states that she is not willing to spend another weekend in the hospital and if precert is not obtained by 5pm on Saturday, she will return home. SW inquired if pt can return home alone. Pt states she needs an aid to help with cooking, laundry and rebecca up the house. Pt does have services through [facility], but pt states her CM has not been able to locate a home health aid yet. SW explained that home health can be set up for PT/OT and an aid for bathing but not to help with things she mentioned. Pt states if she does not get approval for SNF soon she will return home with home health. A list of home health providers including quality and resource use data and consistent with the patient's preferred geographic region, medical needs and insurance network were provided form the [facility] Guide. Pt first choice is [facility] and second choice is [facility]. RNCM updated. SW will followup with Sandra to check on precert. Plan: Sandra, pending precert. MEHDI Cabarl
--- NOTE | 2022-05-03 15:14 | DCINST_ITS ---
Discharge Instructions Diet Discharge Diet: Low fat / Low cholesterol Activity Discharge Activity: Return to Normal Activity Dressing / Incision Call your doctor if you observe: Fever of 101 or Higher, Shortness of breath, Dizziness, Fainting spells, Swelling in the ankles, Chest pain and Increased palpitations (irregular heartbeat) Follow Up Care Test Results: Test results from this visit will be discussed in further detail at your follow- up appointment, if applicable. Discharge Plan Admission Admit Date/Time: 04/25/22 17:26 Attending Provider: Amauri Patterson Primary Care Provider: Heladio Edwards Consulting Providers: Felipe Fountain ; Gurinder Kim ; Sammy Robin ; Darryl Yin ; Rosana Hillman CENTER DIRECTOR Discharge Orders/Prescriptions Prescriptions: Continued umeclidinium 62.5 mcg/actuation blister with device 1 puff INHALATION DAILY trazodone 100 MG tablet 100 mg PO QHS Label Comments: sleep pramipexole 1.5 MG tablet 1.5 mg PO QHS Label Comments: parkinson's disease/restless legs ropinirole 2 MG tablet 2 mg PO QHS Label Comments: parkinson's disease/restless leg furosemide 20 mg tablet 20 mg PO DAILY ibandronate 150 mg tablet 150 mg PO QMONTH atorvastatin 80 mg tablet 80 mg PO QHS Label Comments: Take 1 tablet by mouth at bedtime clopidogrel 75 mg tablet 75 mg PO DAILY Label Comments: TAKE ONE TABLET BY MOUTH DAILY fluticasone furoate-vilanterol [Breo Ellipta] 100-25 mcg/dose blister with device 1 inh INHALATION DAILY Label Comments: inhale 1 inhalation as instructed once daily sertraline 50 mg tablet 50 mg PO DAILY Label Comments: TAKE ONE TABLET BY MOUTH DAILY albuterol sulfate 90 mcg/actuation HFA aerosol inhaler 2 puff inhalation Q4H PRN (Reason: shortness of breath or wheezing) Qty: 8.5 0RF (DME) lancets [Lancets,Ultra Thin] Misc See Rx Instructions .Route Qty: 200 0RF Rx Instructions: As directed (DME) pen needle, diabetic 31 gauge x 1/6 needle See Rx Instructions .Route Qty: 100 0RF Rx Instructions: for insulin administration daily prednisone 10 mg tablet See Taper PO BREAKFAST Qty: 30 0RF Taper: Prednisone Taper 40 mg WITH BREAKFAST for 3 Days and 0 Hour 30 mg WITH BREAKFAST for 3 Days and 0 Hour 20 mg WITH BREAKFAST for 3 Days and 0 Hour 10 mg WITH BREAKFAST for 3 Days and 0 Hour famotidine 20 mg tablet 20 mg PO DAILY PRN (Reason: gerd) aspirin 81 mg tablet,chewable 81 mg PO BREAKFAST guaifenesin [Mucus Relief ER] 600 mg tablet extended release 12hr 600 mg PO BID PRN (Reason: Congestion) Referrals / Follow Up: Heladio Edwards MD [Primary Care Provider] - Within 1 Week Disposition Disposition (needs filled in before D/C Order can be placed): Home Health Service
--- NOTE | 2022-05-03 15:17 | PCM.DC.SUM ---
Providers Date of Admission: 04/25/22 Primary Care Physician: Dr. Heladio Edwards MD Consultations 04/26/22 11:57 Consult: Laboratory Scientist / Pulmonary Medicine Routine Consulting Provider: Pulmonary Medicine kit Moreno Reason for Consult: COPD exacerbation EMERGENT Consult: No MD Notified: Yes Date Notified: 04/26/22 Time Notified: 11:57 Method of Notification: Text Reason For Visit: COPD EXACERBATION Diagnosis Discharge Diagnosis (1) Acute dyspnea: Status: Acute Code(s): R06.00 - Dyspnea, unspecified Plan 1. Acute COPD exacerbation with chronic hypoxic respiratory failure/tobacco dependence/history of lung cancer/SHANA ? She wears about 2-1/2 L of oxygen nasal cannula at home which she is on here ? She also wears trilogy at night which she has been continuing to wear. She has noticed that she has been having more dyspnea on exertion ? Echo from last year is unremarkable ? Appreciate pulmonology's assistance ? Discussed tobacco cessation ? She is being monitored as an outpatient for her lung cancer ? She has completed azithromycin, as well as steroid ? PT/OT, she feels that she might benefit from further therapy at [facility] pre-CERT is pending 2. CAD/ischemic cardiomyopathy/HTN/HLD ?We will continue to monitor her blood pressure, can continue with her home blood pressure medications ? Continue with her Lipitor ? Continue with her aspirin and Plavix as well as her daily Lasix ? She did have some chest pain on admission however CT of the chest was unremarkable and troponins were negative and EKG was nonischemic 3. DM2 ? Continue with Accu-Cheks and sliding scale insulin ? We will monitor and make adjustments as necessary 4. Anxiety/depression/restless leg syndrome ? Stable ? Continue with her home medications DVT: Lovenox Medications at Discharge Home Medications pramipexole 1.5 mg tablet 1.5 mg PO QHS restless legs 06/12/14 trazodone 100 mg tablet 100 mg PO QHS sleep 06/12/14 ropinirole 2 mg tablet 2 mg PO QHS restless legs 10/20/15 umeclidinium 62.5 mcg/actuation blister powder for inhalation 1 puff inhalation DAILY breathing 08/29/20 furosemide 20 mg tablet 20 mg PO DAILY water pill 03/17/21 ibandronate 150 mg tablet 150 mg PO QMONTH bones 04/19/21 atorvastatin 80 mg tablet 80 mg PO QHS cholesterol 10/20/21 clopidogrel 75 mg tablet 75 mg PO DAILY blood thinner 10/20/21 fluticasone furoate 100 mcg-vilanterol 25 mcg/dose inhalation powder (Breo Ellipta) 1 inh inhalation DAILY sob 10/20/21 sertraline 50 mg tablet 50 mg PO DAILY anxiety 02/25/22 albuterol sulfate 90 mcg/actuation aerosol inhaler 2 puff inhalation Q4H PRN shortness of breath or wheezing #8.5 grams 02/26/22 lancets (Lancets,Ultra Thin) #200 ea 02/26/22 pen needle, diabetic 31 gauge x 1/6 #100 ea 02/26/22 prednisone 10 mg tablet See Taper PO BREAKFAST #30 tabs 03/21/22 aspirin 81 mg chewable tablet 81 mg PO BREAKFAST heart health 04/25/22 famotidine 20 mg tablet 20 mg PO DAILY PRN gerd 04/25/22 guaifenesin 600 mg tablet, extended release 12 hr (Mucus Relief ER) 600 mg PO BID PRN Congestion 04/25/22 Hospital Course Operations None Procedures None Summary of Care Provided Minutes Spent on Discharge: 40 Hospital Course: Per HPI: AVE ANNE, is a 71 F who presents to the emergency room due to worsening shortness of breath over the past week.? She reports intermittent nonproductive cough.? Denies fever, chills.? Denies exposure to sick contacts.? Patient is on 2.5 L nasal cannula at baseline and wears trilogy at night.? She was recently admitted in February for exacerbation of COPD.? She has been using her nebulizer at home for breathing treatments without improvement in symptoms.? She denies any aggravating or alleviating factors.? She has a past medical history of chronic COPD with chronic hypoxic respiratory failure, type 2 diabetes mellitus, CAD/ischemic cardiomyopathy, hypertension, hyperlipidemia, anxiety/depression, restless leg syndrome, tobacco dependence, history of lung cancer, SHANA. Hospital Course: 1.? Acute COPD exacerbation with chronic hypoxic respiratory failure/tobacco dependence/history of lung cancer/SHANA ? She wears about 2-1/2 L of oxygen nasal cannula at home which she is on here ? She also wears trilogy at night which she has been continuing to wear.? She has noticed that she has been having more dyspnea on exertion ? Echo from last year is unremarkable ? Appreciate pulmonology's assistance ? Discussed tobacco cessation ? She is being monitored as an outpatient for her lung cancer ? She has completed azithromycin, as well as steroid ? After a significant and unnecessary delay by the insurance company to provide a precertification she became frustrated enough that she decided to try her luck at home with home health, home health aide as well as home physical therapy. I discussed with her the plan for discharge today she expressed understanding of the risk benefits of going home and she would rather go home than stay in the hospital waiting for the insurance response. 2.? CAD/ischemic cardiomyopathy/HTN/HLD ?We will continue to monitor her blood pressure, can continue with her home blood pressure medications ? Continue with her Lipitor ? Continue with her aspirin and Plavix as well as her daily Lasix ? She did have some chest pain on admission however CT of the chest was unremarkable and troponins were negative and EKG was nonischemic 3.? DM2 ? Continue with Accu-Cheks and sliding scale insulin ? We will monitor and make adjustments as necessary 4.? Anxiety/depression/restless leg syndrome ? Stable ? Continue with her home medications Physical Exam Narrative General: Alert, Oriented x3, Cooperative, No apparent distress HEENT: Atraumatic, PERRLA, EOMI, Normocephalic Oral: Moist Mucosa Neck: Supple, No JVD Lungs: Diminished, Normal air movement, No rhonchi, no wheeze, No rales Cardiovascular: Regular rate, Regular Rhythm, Normal S1, Normal S2, No murmurs Abdomen: Soft, Non Tender, Non-Distended, No Hepato-splenomegaly Extremities: Trace edema, Capillary Refill Less than 3 Seconds Skin: No rashes, No breakdown Musculoskeletal: No Tenderness to Palpation of Joints or Extremities Neurological: Cranial nerves II-XII grossly intact, Motor Exam 5/5 strength throughout, Sensory exam intact to light touch and pain Psych/Mental Status: Normal Affect, Appropriate Weight / BMI Weight Weight: 201 lb 14.4 oz Body Mass Index (BMI) 35.7 ABG / Lab / Microbiology Data Result Diagrams: 04/27/22 05:20 05/02/22 05:46 Laboratory: Laboratory Results - last 24 hr 05/02/22 16:17: POC Glucose 143 H 05/02/22 21:46: POC Glucose 197 H 05/03/22 04:44: POC Glucose 132 H 05/03/22 11:01: POC Glucose 175 H Microbiology: Microbiology 04/25/22 18:03 Sputum, Expectorated/Coughed Gram Stain - Final 04/25/22 18:03 Sputum, Expectorated/Coughed Respiratory Culture - Final Mixed normal respiratory kayla. No Streptococcus pneumoniae, beta-hemolytic Streptococcus or Staphylococcus aureus isolated. D/C Instructions Discharge Diet: Low fat / Low cholesterol Call your doctor if you observe: Fever of 101 or Higher, Shortness of breath, Dizziness, Fainting spells, Swelling in the ankles, Chest pain and Increased palpitations (irregular heartbeat) Meaningful Use Info Meaningful Use Diagnoses (Choose all that apply): None applicable Discharge Plan Admission Admit Date/Time: 04/25/22 17:26 Attending Provider: mAauri Patterson Primary Care Provider: Heladio Edwards Consulting Providers: Felipe Fountain ; Gurinder Kim ; Sammy Robin ; Darryl Yin ; Rosana Hillman GENERAL ACCOUNTING MANAGER Discharge Orders/Prescriptions Prescriptions: Continued umeclidinium 62.5 mcg/actuation blister with device 1 puff INHALATION DAILY trazodone 100 MG tablet 100 mg PO QHS Label Comments: sleep pramipexole 1.5 MG tablet 1.5 mg PO QHS Label Comments: parkinson's disease/restless legs ropinirole 2 MG tablet 2 mg PO QHS Label Comments: parkinson's disease/restless leg furosemide 20 mg tablet 20 mg PO DAILY ibandronate 150 mg tablet 150 mg PO QMONTH atorvastatin 80 mg tablet 80 mg PO QHS Label Comments: Take 1 tablet by mouth at bedtime clopidogrel 75 mg tablet 75 mg PO DAILY Label Comments: TAKE ONE TABLET BY MOUTH DAILY fluticasone furoate-vilanterol [Breo Ellipta] 100-25 mcg/dose blister with device 1 inh INHALATION DAILY Label Comments: inhale 1 inhalation as instructed once daily sertraline 50 mg tablet 50 mg PO DAILY Label Comments: TAKE ONE TABLET BY MOUTH DAILY albuterol sulfate 90 mcg/actuation HFA aerosol inhaler 2 puff inhalation Q4H PRN (Reason: shortness of breath or wheezing) Qty: 8.5 0RF (DME) lancets [Lancets,Ultra Thin] Misc See Rx Instructions .Route Qty: 200 0RF Rx Instructions: As directed (DME) pen needle, diabetic 31 gauge x 1/6 needle See Rx Instructions .Route Qty: 100 0RF Rx Instructions: for insulin administration daily prednisone 10 mg tablet See Taper PO BREAKFAST Qty: 30 0RF Taper: Prednisone Taper 40 mg WITH BREAKFAST for 3 Days and 0 Hour 30 mg WITH BREAKFAST for 3 Days and 0 Hour 20 mg WITH BREAKFAST for 3 Days and 0 Hour 10 mg WITH BREAKFAST for 3 Days and 0 Hour famotidine 20 mg tablet 20 mg PO DAILY PRN (Reason: gerd) aspirin 81 mg tablet,chewable 81 mg PO BREAKFAST guaifenesin [Mucus Relief ER] 600 mg tablet extended release 12hr 600 mg PO BID PRN (Reason: Congestion) Referrals / Follow Up: Heladio Edwards MD [Primary Care Provider] - Within 1 Week Disposition Disposition (needs filled in before D/C Order can be placed): Home Health Service Charges/Coding Visit Charges OBSV E&M: 18469 Observation care discharge
--- NOTE | 2022-05-03 15:18 | CASEMGMT ---
Addendum entered by Margareth Mclaughlin 05/03/22 15:49: Pt asked to speak with CONNOR ZIMMERMAN per aide. CONNOR ZIMMERMAN in to pt room, pt has son on speakerphone and would like to discuss concerns of pt returning home. CONNOR ZIMMERMAN also asked SW to come into room. At that time, a tc received that precert was obtained. Addendum entered by Margareth Mclaughlin 05/03/22 15:42: TC to [facility] again and verified pt oxygen orders are 2L continuous with [facility]. Addendum entered by Margareth Mclaughlin 05/03/22 15:31: Spoke with pt nurse regarding pt oxygen requirements and testing. Original Note: Updated by hospitalist that pt will dc home. Referral sent to [facility] via [facility] at this time.
--- NOTE | 2022-05-03 15:35 | CASEMGMT ---
Social Work Discussed with pt and son on the phone that per physician pt is discharged today. SW just received a call from [facility] that insurance has approved pt and she can admit to [facility] today. Pt and son feel that most appropriate discharge is to [facility] and family will transport. Physician updated and agreeable to plan. PASRR completed in [facility] and sent along with orders and medlist to [facility] via the [facility] system. Wilma, discharge news assistant states she will notify [facility] of admission. Nurse updated and covid test requested. Pt can discharge to [facility] when covid results are in. Pt states her family will transport. Plan: [facility], skilled level of care [facility]
--- NOTE | 2022-05-03 15:44 | CASEMGMT ---
Discharge Microfilm Mounter Jeanna from [facility] called. Pre-cert has been obtained. VANESA Hobson notified. Plan: [facility] vs Home w/[facility] Wil[facility] Collazo Discharge Microfilm Mounter
--- NOTE | 2022-05-03 15:48 | TREXTCAR_ITS ---
Diet Diet Order/Speech Therapy: 04/25/22 17:52 Diet: Consistent Carb - Calorie Controlled Food consistency:: Regular Liquid Consistency:: Regular/Thin Is pt able to select menu?: Yes How many daily calories?: 2000 calorie Routine Orders/Code Status Routine Lab Work: CBC and BMP Code Status: Full Code Therapies Physical Therapy: Eval and Treat Occupational Therapy: Eval and Treat Problem/Diagnosis (1) Acute dyspnea: Status: Acute Code(s): R06.00 - Dyspnea, unspecified Plan 1. Acute COPD exacerbation with chronic hypoxic respiratory failure/tobacco dependence/history of lung cancer/SHANA ? She wears about 2-1/2 L of oxygen nasal cannula at home which she is on here ? She also wears trilogy at night which she has been continuing to wear. She has noticed that she has been having more dyspnea on exertion ? Echo from last year is unremarkable ? Appreciate pulmonology's assistance ? Discussed tobacco cessation ? She is being monitored as an outpatient for her lung cancer ? She has completed azithromycin, as well as steroid ? PT/OT, she feels that she might benefit from further therapy at SNF pre-CERT is pending 2. CAD/ischemic cardiomyopathy/HTN/HLD ?We will continue to monitor her blood pressure, can continue with her home blood pressure medications ? Continue with her Lipitor ? Continue with her aspirin and Plavix as well as her daily Lasix ? She did have some chest pain on admission however CT of the chest was unremarkable and troponins were negative and EKG was nonischemic 3. DM2 ? Continue with Accu-Cheks and sliding scale insulin ? We will monitor and make adjustments as necessary 4. Anxiety/depression/restless leg syndrome ? Stable ? Continue with her home medications DVT: Lovenox Allergies/Procedures Done in Hospital Allergies bupropion HCl [From Wellbutrin] Allergy (Verified 02/24/22 21:44) Hives gabapentin [From Neurontin] Allergy (Verified 02/24/22 21:44) Hives moxifloxacin HCl [From Avelox] Allergy (Verified 02/24/22 21:44) Hives Procedures: None Type of Care/Length of Stay Estimated LOS: Convalescent Care Less Than 30 days Type of Care Needed: Skilled Rehab Potential: Good Prognosis: Good Additional Orders/Day of Discharge Day of Discharge: 05/03/22 Discharge Plan Admission Admit Date/Time: 04/25/22 17:26 Attending Provider: Amauri Patterson Primary Care Provider: Heladio Edwards Consulting Providers: Felipe Fountain ; Gurinder Kim ; Sammy Robin ; Darryl Yin ; Rosana Hillman MANAGER [employer] Discharge Orders/Prescriptions Prescriptions: Continued umeclidinium 62.5 mcg/actuation blister with device 1 puff INHALATION DAILY trazodone 100 MG tablet 100 mg PO QHS Label Comments: sleep pramipexole 1.5 MG tablet 1.5 mg PO QHS Label Comments: parkinson's disease/restless legs ropinirole 2 MG tablet 2 mg PO QHS Label Comments: parkinson's disease/restless leg furosemide 20 mg tablet 20 mg PO DAILY ibandronate 150 mg tablet 150 mg PO QMONTH atorvastatin 80 mg tablet 80 mg PO QHS Label Comments: Take 1 tablet by mouth at bedtime clopidogrel 75 mg tablet 75 mg PO DAILY Label Comments: TAKE ONE TABLET BY MOUTH DAILY fluticasone furoate-vilanterol [Breo Ellipta] 100-25 mcg/dose blister with dev ice 1 inh INHALATION DAILY Label Comments: inhale 1 inhalation as instructed once daily sertraline 50 mg tablet 50 mg PO DAILY Label Comments: TAKE ONE TABLET BY MOUTH DAILY albuterol sulfate 90 mcg/actuation HFA aerosol inhaler 2 puff inhalation Q4H PRN (Reason: shortness of breath or wheezing) Qty: 8.5 0RF (DME) lancets [Lancets,Ultra Thin] Misc See Rx Instructions .Route Qty: 200 0RF Rx Instructions: As directed (DME) pen needle, diabetic 31 gauge x 1/6 needle See Rx Instructions .Route Qty: 100 0RF Rx Instructions: for insulin administration daily prednisone 10 mg tablet See Taper PO BREAKFAST Qty: 30 0RF Taper: Prednisone Taper 40 mg WITH BREAKFAST for 3 Days and 0 Hour 30 mg WITH BREAKFAST for 3 Days and 0 Hour 20 mg WITH BREAKFAST for 3 Days and 0 Hour 10 mg WITH BREAKFAST for 3 Days and 0 Hour famotidine 20 mg tablet 20 mg PO DAILY PRN (Reason: gerd) aspirin 81 mg tablet,chewable 81 mg PO BREAKFAST guaifenesin [Mucus Relief ER] 600 mg tablet extended release 12hr 600 mg PO BID PRN (Reason: Congestion) Referrals / Follow Up: Heladio Edwards MD [Primary Care Provider] - Within 1 Week Disposition Disposition (needs filled in before D/C Order can be placed): Long-Term Facility
[2022-05-03 17:31] LABS: Bedside Glucose 154 mg/dL (74-106)
--- NOTE | 2022-05-03 18:02 | NURSING ---
REPORT CALLED TO JEREMY AT [facility]. PTS FRIEND WILL BE TRANSPORTING HER
== END 2022-05-03 18:17 ==
LOC: ED 16:16 → MS3 16:49
PROVIDERS: Internal Medicine Critical Care Medicine; Nurse Practitioner Family; Admitting Provider Internal Medicine; Emergency Provider Emergency Medicine; PCP Family Medicine; Visit Provider Family Medicine
DX: J44.1 Chronic obstructive pulmonary disease with (acute) exacerbation (principal); I11.0 Hypertensive heart disease with heart failure; I50.32 Chronic diastolic (congestive) heart failure; J96.11 Chronic respiratory failure with hypoxia; E11.9 Type 2 diabetes mellitus without complications; G47.33 Obstructive sleep apnea (adult) (pediatric); Z79.02 Long term (current) use of antithrombotics/antiplatelets; F32.A Depression, unspecified; I25.5 Ischemic cardiomyopathy; G89.29 Other chronic pain; E66.9 Obesity, unspecified; E78.5 Hyperlipidemia, unspecified; F41.9 Anxiety disorder, unspecified; I25.10 Atherosclerotic heart disease of native coronary artery without angina pectoris; R53.81 Other malaise; Z68.35 Body mass index [BMI] 35.0-35.9, adult; I25.2 Old myocardial infarction; Z86.718 Personal history of other venous thrombosis and embolism; Z99.81 Dependence on supplemental oxygen; Z86.711 Personal history of pulmonary embolism; Z87.891 Personal history of nicotine dependence; R06.00 Dyspnea, unspecified; R06.02 Shortness of breath
CPT/HCPCS: 36415; 71045; 71275; 80048; 82962; 83880; 84484; 85025; 87070; 87205; 87811; 93005; 94640; 94762; 96372; 96374; 96376; 97110; 97116; 97162; 97166; 97530; 97535; 99218; 99285; Q9967; A4216; G0378

== ENCOUNTER 2022-06-10 18:36 | Emergency (ER) | payer MEDICARE, MEDICAID, SELFPAY ==
[2022-06-10] VITALS (9 sets, daily range): BP systolic 132–166; BP diastolic 64–92; PULSE 82–94; RESP 16–27; TEMP 36.3–36.8; O2SAT 95–100; BMI 36.1
--- NOTE | 2022-06-10 18:50 | ED.VIS.DYS ---
HPI History of Present Illness Chief Complaint: Shortness of Breath Informant: patient Onset/Context/Timing Onset: Yesterday Context: gradual Timing: Continuous Quality: Positive for Dyspnea on exertion Worsened by: Exertion Relieved by: Rest and Oxygen Associated Symptoms Negative for cough, rhinorrhea, ear pain, fever, sore throat, chills or sweats Chest Pain: Positive for None Narrative Narrative: Patient presents with shortness of breath that has been getting worse since yesterday. Patient states she felt like her oxygen concentrator at home was not working. Patient states they came out and replaced it today. Patient states she still feels short of breath. Patient is normally on 3 L of oxygen. Patient states this has not been helping. Patient states she has been using her home aerosols which have not been helping him. Patient states her breathing is worse with any exertion. Patient states it is better with rest. Patient denies any cough. Patient denies any fevers or chills. Patient denies any chest pain. PE Risk Factors: Positive for Prior DVT or PE; Negative for Cancer, OCP + Smoking + > 35, Recent immobilization, Recent surgery or Recent travel [facility] Medical History Asthma BiPAP (biphasic positive airway pressure) dependence Chronic pain Chronic respiratory failure with hypoxia Congestive heart failure (CHF) COPD (chronic obstructive pulmonary disease) Coronary artery disease Diabetes DVT (deep venous thrombosis) Former smoker History of COPD Hx of pulmonary embolus Knee arthropathy Lung cancer Myocardial infarct On home oxygen therapy Osteoporosis Pulmonary embolism Tobacco abuse Home Medications pramipexole 1.5 mg tablet 1.5 mg PO QHS restless legs 06/12/14 [History Last Taken 04/24/22] trazodone 100 mg tablet 100 mg PO QHS sleep 06/12/14 [History Last Taken 04/24/22] ropinirole 2 mg tablet 2 mg PO QHS restless legs 10/20/15 [History Last Taken 04/24/22] umeclidinium 62.5 mcg/actuation blister powder for inhalation 1 puff inhalation DAILY breathing 08/29/20 [History Last Taken 04/25/22] furosemide 20 mg tablet 20 mg PO DAILY water pill 03/17/21 [History Last Taken 04/25/22] ibandronate 150 mg tablet 150 mg PO QMONTH bones 04/19/21 [History Last Taken 03/27/22] atorvastatin 80 mg tablet 80 mg PO QHS cholesterol 10/20/21 [History Last Taken 04/24/22] clopidogrel 75 mg tablet 75 mg PO DAILY blood thinner 10/20/21 [History Last Taken 04/25/22] fluticasone furoate 100 mcg-vilanterol 25 mcg/dose inhalation powder (Breo Ellipta) 1 inh inhalation DAILY sob 10/20/21 [History Last Taken 04/25/22] sertraline 50 mg tablet 50 mg PO DAILY anxiety 02/25/22 [History Last Taken 04/25/22] albuterol sulfate 90 mcg/actuation aerosol inhaler 2 puff inhalation Q4H PRN shortness of breath or wheezing #8.5 grams 02/26/22 [Rx Last Taken 04/25/22] lancets (Lancets,Ultra Thin) #200 ea 02/26/22 [Rx Last Taken Unknown] pen needle, diabetic 31 gauge x 1/6 #100 ea 02/26/22 [Rx Last Taken Unknown] aspirin 81 mg chewable tablet 81 mg PO BREAKFAST heart health 04/25/22 [History Last Taken 04/25/22] prednisone 20 mg tablet 60 mg PO DAILY #15 TABLETS 06/10/22 [Rx Last Taken Unknown] Allergy/AdvReac Type Severity Reaction Status Date / Time bupropion HCl Allergy Hives Verified 06/10/22 18:42 [From Wellbutrin] gabapentin [From Neurontin] Allergy Hives Verified 06/10/22 18:42 moxifloxacin HCl Allergy Hives Verified 06/10/22 18:42 [From Avelox] Family History Mother COPD (chronic obstructive pulmonary disease) Cancer Diabetes Heart disease Father COPD (chronic obstructive pulmonary disease) Cancer Diabetes Heart disease Surgical History H/O hand surgery H/O heart artery stent H/O knee surgery H/O: hysterectomy History of back surgery Status post lobectomy of lung Social History household members: none Smoking Status: Light Smoker (<10/day) how long ago did patient quit smoking: Quit tobacco use ~ 3 months prior 11/2021. alcohol intake: never substance use type: does not use ROS ROS ED Constitutional Constitutional ED: Denies chills or fever(s) Eyes Eyes: Denies blurry vision or change in vision ENT ENT ED: Denies rhinorrhea or sore throat Cardiovascular Cardiovascular: Denies chest pain or palpitations Respiratory/Chest Respiratory/Chest: Reports dyspnea; Denies cough Gastrointestinal Gastrointestinal: Denies nausea or vomiting Genitourinary Genitourinary ED: Denies dysuria or hematuria Musculoskeletal Musculoskeletal: Denies back pain or neck pain Integumentary Denies abscess or rash Neurologic Neurologic: Denies headache(s) or weakness Allergic/Immunologic Allergic/Immunologic ED: Denies mouth swelling or urticaria EXAM Physical Exam Const Vital Signs: 06/10/22 18:37 06/10/22 18:41 06/10/22 18:40 Temperature 97.8 F 97.4 F L Temperature Source Oral Oral Oral Pulse Rate 94 91 Respiratory Rate 27 H 27 H Respiratory Effort Respiratory Depth Respiratory Pattern Blood Pressure 166/64 H 166/64 H Blood Pressure Mean 98 98 Pulse Ox 97 100 Oxygen Delivery Method Nasal Cannula Oxygen Flow Rate (L/min) 3 Fraction of Inspired Oxygen (FIO2) 06/10/22 18:47 06/10/22 19:14 06/10/22 19:25 Temperature 98.3 F Temperature Source Oral Pulse Rate 82 88 Respiratory Rate 17 16 Respiratory Effort Labored Accessory Muscle Use Respiratory Depth Shallow Respiratory Pattern Tachypnea Blood Pressure 132/65 H 144/64 H Blood Pressure Mean 87 90 Pulse Ox 97 98 Oxygen Delivery Method Nasal Cannula Nasal Cannula Oxygen Flow Rate (L/min) 3 Fraction of Inspired Oxygen (FIO2) 3 06/10/22 19:01 06/10/22 20:06 06/10/22 21:03 Temperature 98.1 F 98.1 F Temperature Source Oral Oral Pulse Rate 86 88 89 Respiratory Rate 20 H 19 H 20 H Respiratory Effort Respiratory Depth Respiratory Pattern Tachypnea Blood Pressure 132/92 H 166/81 H Blood Pressure Mean 105 109 Pulse Ox 98 Oxygen Delivery Method Nasal Cannula Nasal Cannula Oxygen Flow Rate (L/min) 3 3 Fraction of Inspired Oxygen (FIO2) Positive well nourished and well developed General Appearance ED: well developed HEENT Reports moist mucous membranes Neck supple and no JVD Resp normal respiratory effort Auscultation: wheezes expiratory wheezes and throughout Cardio regular rate and no murmurs Rhythm: abnormal rhythm ectopic beats (Frequent) GI normal to inspection, nondistended, normoactive bowel sounds and non-tender Palpation: soft Extremity normal to inspection General Extremety ED: Negative for edema or tenderness General Extremity: Negative for edema Neuro oriented x3, CN's II-XII intact bilaterally and no sensory deficits noted Sensorium / Orientation: alert Motor Exam: strength 5/5 throughout Psych mental status grossly normal Skin no rashes or lesions noted MDM MDM MDM Narrative Medical decision making narrative: Patient was given a DuoNeb aerosol here. Patient was given a dose of Solu-Medrol here. EKG was obtained. On my interpretation, it shows normal sinus rhythm with frequent PACs and PVCs. Rate was 105. MN interval, QRS interval, and QTc interval are within normal limits. [place] is normal. There are nonspecific ST-T wave changes. There is no change compared to previous EKG. CBC shows a slight leukocytosis of 12.2. D-dimer was normal for her age at 0.61. Basic metabolic profile was within normal limits. High-sensitivity troponin was normal. Lactate was normal. Portable 1 view chest x-ray was obtained. On my interpretation, lung moses are clear. There is normal cardiac silhouette. Bony thorax is normal. There is no acute process noted. Radiologist also interpreted the x-ray and agrees. Patient was feeling better on reevaluation. Patient states she wants to go home. Patient states that her oxygen concentrator is working properly. We will ambulate the patient on 3 L nasal cannula to see if she maintains good oxygen saturation. If she is able to do this, I feel she can go home. If she drops her oxygen saturations while ambulating, patient understands that she will need to be admitted to the hospital for further evaluation and treatment. Patient was able to ambulate and maintain oxygen saturation in the 93 to 94% range. Patient felt better while ambulating. Patient will be discharged home. Patient was given a prescription for a short course of prednisone. Patient was instructed to follow-up with her primary care physician in 5 to 7 days. Patient understood and was agreeable with the plan. All questions were answered. Lab Data Attestation: I reviewed the patient's lab results. Labs: Laboratory Results - last 24 hr 06/10/22 06/10/22 06/10/22 18:55 18:55 18:55 WBC 12.2 H RBC 4.43 Hgb 12.4 Hct 39.9 MCV 90.1 MCH 28.0 MCHC 31.1 L RDW Std Deviation 46.0 H RDW Coeff of Doretha 14.0 Plt Count 387 MPV 10.1 Immature Gran % (Auto) 0.300 Neut % (Auto) 66.4 Lymph % (Auto) 26.0 [place] % (Auto) 6.1 Eos % (Auto) 0.7 Baso % (Auto) 0.5 Absolute Neuts (auto) 8.1 H Absolute Lymphs (auto) 3.18 Nucleated RBC % 0 D-Dimer Quant (PE/DVT) 0.61 H* Sodium 142 Potassium 3.4 L Chloride 105 Carbon Dioxide 28.0 Anion Gap 9 BUN 13 Creatinine 0.73 Estim Creat Clear Calc 41.45 Est GFR (MDRD) Af Amer 100 Est GFR (MDRD) Non-Af 83 BUN/Creatinine Ratio 17.8 Glucose 137 H Lactic Acid Calcium 9.5 Troponin I High Sens 9 06/10/22 18:55 WBC RBC Hgb Hct MCV MCH MCHC RDW Std Deviation RDW Coeff of Doretha Plt Count MPV Immature Gran % (Auto) Neut % (Auto) Lymph % (Auto) [place] % (Auto) Eos % (Auto) Baso % (Auto) Absolute Neuts (auto) Absolute Lymphs (auto) Nucleated RBC % D-Dimer Quant (PE/DVT) Sodium Potassium Chloride Carbon Dioxide Anion Gap BUN Creatinine Estim Creat Clear Calc Est GFR (MDRD) Af Amer Est GFR (MDRD) Non-Af BUN/Creatinine Ratio Glucose Lactic Acid 1.3 Calcium Troponin I High Sens Radiography Chest X-Ray - ED: 2 View, Read by ED Physician, Read by Radiologist and No Acute Disease Diagnostic Testing: Clinical Impression(s) from Imaging Studies Chest X-Ray 06/10/22 19:35 IMPRESSION: No acute cardiopulmonary disease or interval change. Electronically Signed: Elfego Omer DO at 19:46 EDT Reading Location ID and State: [address] [place] [address] Tel [phone], Service support , EKG Initial EKG: Attestation: I personally reviewed and interpreted this EKG as follows: Interpretation: Sinus Rhythm (With frequent PVCs with a rate of 105) and Non-Specific ST Changes Prior EKG tracings: available for review Prior: Unchanged (04/28/2022) Discharge Plan Triage Chief Complaint: Shortness of Breath ED Provider: Benjamin Metcalf Dx/Rx/DC Orders Clinical Impression: Acute exacerbation of chronic obstructive pulmonary disease, Hypoxia Instructions: ED COPD Flare Prescriptions: New prednisone 20 mg tablet 60 mg PO DAILY Qty: 15 0RF No Action umeclidinium 62.5 mcg/actuation blister with device 1 puff INHALATION DAILY trazodone 100 MG tablet 100 mg PO QHS Label Comments: sleep pramipexole 1.5 MG tablet 1.5 mg PO QHS Label Comments: parkinson's disease/restless legs ropinirole 2 MG tablet 2 mg PO QHS Label Comments: parkinson's disease/restless leg furosemide 20 mg tablet 20 mg PO DAILY ibandronate 150 mg tablet 150 mg PO QMONTH atorvastatin 80 mg tablet 80 mg PO QHS Label Comments: Take 1 tablet by mouth at bedtime clopidogrel 75 mg tablet 75 mg PO DAILY Label Comments: TAKE ONE TABLET BY MOUTH DAILY fluticasone furoate-vilanterol [Breo Ellipta] 100-25 mcg/dose blister with device 1 inh INHALATION DAILY Label Comments: inhale 1 inhalation as instructed once daily sertraline 50 mg tablet 50 mg PO DAILY Label Comments: TAKE ONE TABLET BY MOUTH DAILY albuterol sulfate 90 mcg/actuation HFA aerosol inhaler 2 puff inhalation Q4H PRN (Reason: shortness of breath or wheezing) Qty: 8.5 0RF (DME) lancets [Lancets,Ultra Thin] Misc See Rx Instructions .Route Qty: 200 0RF Rx Instructions: As directed (DME) pen needle, diabetic 31 gauge x 1/6 needle See Rx Instructions .Route Qty: 100 0RF Rx Instructions: for insulin administration daily aspirin 81 mg tablet,chewable 81 mg PO BREAKFAST Primary Care Provider: Heladio Edwards Referrals: Heladio Edwards MD [Primary Care Provider] - 5-7 Days Disposition Disposition: Home, Self Care
--- NOTE | 2022-06-10 18:53 | EKG12_ITS ---
Test Reason : SOB Blood Pressure : / mmHG Vent. Rate : 105 BPM Atrial Rate : 000 BPM P-R Int : 000 ms QRS Dur : 086 ms QT Int : 350 ms P-R-T Axes : 000 048 261 degrees QTc Int : 462 ms Atrial fibrillation with rapid ventricular response with premature ventricular or aberrantly conducte d complexes Nonspecific T wave abnormality Abnormal ECG Confirmed by GOSIA RUSHING, JOLYL ([id number]), proposal editor AYANNA LORENZO ([id number]) on 06/12/2022 8:21:39 AM Referred By: Confirmed By:JOLLY ELISE MD
[2022-06-10] MEDS: Ipratropium/Albuterol Sulfate 3 ML AMPUL.NEB INHALATION (19:01)
[2022-06-10] MEDS: MethylPREDNISolone 125 MG/2 ML Vial 60 MG IV (19:02)
[2022-06-10 19:21] LABS: Absolute Lymphocyte Count 3.18 X10^3/uL (0.83-4.51); Absolute Neutrophil Count 8.1 X10^3/uL (2.0-7.7); Basophil# 0.06 X10^3/uL; Basophil% 0.5 % (0-1); Eosinophil# 0.09 X10^3/uL; Eosinophils% 0.7 % (0-5); Hematocrit 39.9 % (37-47); Hemoglobin 12.4 g/dL (12.0-15.0); Lymphocyte # 3.18 X10^3/ul (0.83-4.51); Mean Corp Hgb Conc 31.1 g/dL (32-36); Mean Corpuscular Volume 90.1 fL (81-99); Mean Platelet Vol. 10.1 fl (6.2-12.0); Monocyte# 0.74 X10^3/uL; Monocyte% 6.1 % (0-10); NRBC Flagged by Analyzer 0 % (0-5); Neutrophil # 8.12 X10^3/uL (2.7-7.7); Neutrophil % 66.4 % (47-70); Platelet Count 387 K/mm3 (150-450); Red Blood Count 4.43 M/mm3 (4.2-5.4); White Blood Count 12.2 K/mm3 (4.4-11.0)
[2022-06-10 19:34] LABS: D-Dimer Quantitative (DVT/PE) 0.61 FEU/ug/m (0.27-0.49)
--- NOTE | 2022-06-10 19:35 | RAD_ITS ---
STUDY: X-RAY CHEST REASON FOR EXAM: Female, 71 years old. Dyspnea. TECHNIQUE: PA and lateral views of the chest. COMPARISON: 04/25/2022. FINDINGS: The lungs are well-expanded. There is persistent density in the lateral right lung base without new infiltrate or mass. This is thought to be due to overlying soft tissue. There is no demonstrated pleural abnormality. Normal size heart. Normal mediastinum and fortino. Normal visualized pulmonary arteries. Minimal atherosclerotic changes of the aortic arch. Levoscoliosis and degenerative changes of the thoracic spine. Marked demineralization. Again seen is vertebral augmentation at T8-9. There is degenerative osteoarthritis of the bilateral shoulders. There is no demonstrated abnormality of the visualized soft tissue structures of the upper abdomen. RAD/Chest PA and Lateral IMPRESSION: No acute cardiopulmonary disease or interval change. Electronically Signed: Elfego Omer DO at 19:46 EDT ,
[2022-06-10 19:51] LABS: Lactic Acid 1.3 mmol/L (0.4-1.9)
[2022-06-10 20:01] LABS: Anion Gap 9 (5-15); BUN 13 mg/dL (7-18); BUN/Creat Ratio 17.8 RATIO (10-20); Calcium,Total 9.5 mg/dL (8.5-10.1); Chloride 105 mmol/L (98-107); Creatinine, Serum 0.73 mg/dL (0.55-1.02); EST Glomerular Filtration Rate 83 mL/min (>60); Est Glom Filt Rate - Afr Amer 100 mL/min (>60); Estimated Creatinine Clearance 41.45 ml/min; Glucose 137 mg/dL (74-106); Potassium 3.4 mmol/L (3.5-5.1); Sodium Level 142 mmol/L (136-145); Troponin-I HS 9 pg/mL (3.0-54.0)
--- NOTE | 2022-06-10 22:24 | NURSING ---
Pt dc home. Called friend to pick her up. Pt uses 3l n/c. Friend unable to bring home o2. Pt refuses EMS transport back. Dr Adler aware.
== END 2022-06-10 22:29 | disposition home or self-care (01) ==
PROVIDERS: Emergency Provider Emergency Medicine; PCP Family Medicine; Visit Provider Emergency Medicine
DX: J44.1 Chronic obstructive pulmonary disease with (acute) exacerbation (principal); I50.9 Heart failure, unspecified; J96.11 Chronic respiratory failure with hypoxia; I25.10 Atherosclerotic heart disease of native coronary artery without angina pectoris; I25.2 Old myocardial infarction; Z95.5 Presence of coronary angioplasty implant and graft; Z79.02 Long term (current) use of antithrombotics/antiplatelets; Z99.81 Dependence on supplemental oxygen; Z79.82 Long term (current) use of aspirin; Z79.899 Other long term (current) drug therapy; Z86.718 Personal history of other venous thrombosis and embolism; Z87.891 Personal history of nicotine dependence
CPT/HCPCS: 71046; 80048; 83605; 84484; 85025; 85379; 87040; 87428; 93005; 94640; 96374; 99284; A4216

== ENCOUNTER → 2022-07-13 | Outpatient (CLI) | payer MEDICARE, MEDICAID, SELFPAY ==
[2022-07-13 11:09] LABS: Absolute Lymphocyte Count 2.42 X10^3/uL (0.83-4.51); Absolute Neutrophil Count 5.5 X10^3/uL (2.0-7.7); Basophil# 0.03 X10^3/uL; Basophil% 0.3 % (0-1); Eosinophils% 2.3 % (0-5); Hematocrit 37.2 % (37-47); Hemoglobin 11.5 g/dL (12.0-15.0); Lymphocyte # 2.42 X10^3/ul (0.83-4.51); Lymphocyte % 27.5 % (19-41); Mean Corp Hgb Conc 30.9 g/dL (32-36); Mean Corpuscular Hgb 27.7 pg (27.0-32.0); Mean Corpuscular Volume 89.6 fL (81-99); Mean Platelet Vol. 9.9 fl (6.2-12.0); Monocyte# 0.61 X10^3/uL; Monocyte% 6.9 % (0-10); NRBC Flagged by Analyzer 0 % (0-5); Neutrophil # 5.52 X10^3/uL (2.7-7.7); Neutrophil % 62.8 % (47-70); Platelet Count 304 K/mm3 (150-450); RBC Distribution Width CV 14.3 % (11.6-14.6); RBC Distribution Width SD 46.7 fl (35.1-43.9); Red Blood Count 4.15 M/mm3 (4.2-5.4); White Blood Count 8.8 K/mm3 (4.4-11.0)
[2022-07-13 11:18] LABS: ALB/GLOB Ratio 0.8 RATIO (0.9-2.4); AST(SGOT) 10 U/L (15-37); Alanine Aminotransfer ALT/SGPT 18 U/L (13-56); Albumin, Serum 3.2 g/dL (3.2-5.0); Alkaline Phosphatase 106 U/L (45-117); Anion Gap 5 (5-15); BUN 18 mg/dL (7-18); BUN/Creat Ratio 27.9 RATIO (10-20); Calcium,Total 8.9 mg/dL (8.5-10.1); Chloride 105 mmol/L (98-107); Cholesterol 149 mg/dL (200); Creatinine, Serum 0.64 mg/dL (0.55-1.02); EST Glomerular Filtration Rate 96 mL/min (>60); Est Glom Filt Rate - Afr Amer 116 mL/min (>60); Globulin 3.9 g/dL (2.2-4.2); Glucose 157 mg/dL (74-106); High Density Lipoprotein 77 mg/dL; Potassium 4.2 mmol/L (3.5-5.1); Protein, Total 7.1 g/dL (6.4-8.2); Sodium Level 137 mmol/L (136-145); Triglycerides 85 mg/dL; Very Low Density Lipoprotein 17 mg/dL (5-40)
[2022-07-13 11:37] LABS: Microalbumin,Random Urine 23.2 mg/L (NO RANGE EST.); Microalbumin:Creatinine Ratio 16.2 mg/g CRE (<30 mg/g CRE)
[2022-07-13 11:43] LABS: Hemoglobin A1c 7.5 % (3.8-5.6)
== END | disposition home or self-care (01) ==
LOC: LAB 09:37
PROVIDERS: PCP Family Medicine; Visit Provider Family Medicine
DX: E11.9 Type 2 diabetes mellitus without complications (principal)
CPT/HCPCS: 36415; 80053; 80061; 82043; 82570; 83036; 85025

== ENCOUNTER 2022-09-07 22:18 | Inpatient (IN) | payer MEDICARE, MEDICAID, SELFPAY ==
[2022-09-07 22:19] VITALS: O2SAT 93
[2022-09-07 22:22] VITALS: PULSE 94; RESP 19; TEMP 37.1; O2SAT 98; BMI 38.2
[2022-09-07 22:24] VITALS: O2SAT 96
--- NOTE | 2022-09-07 22:48 | EKG12_ITS ---
Test Reason : CP Blood Pressure : / mmHG Vent. Rate : 069 BPM Atrial Rate : 069 BPM P-R Int : 186 ms QRS Dur : 098 ms QT Int : 408 ms P-R-T Axes : 009 043 032 degrees QTc Int : 437 ms Normal sinus rhythm Nonspecific T wave abnormality Abnormal ECG Confirmed by NEIDA RUSHING, BREE ([id number]), video editor AYANNA LORENZO ([id number]) on 09/10/2022 12:08:39 PM Referred By: ARTURO Confirmed By:BREE CARRASQUILLO MD
[2022-09-07 22:53] VITALS: PULSE 84; RESP 24; O2SAT 96
[2022-09-07] MEDS: Albuterol 2.5 MG/3 ML VIAL.NEB. INHALATION (22:53)
[2022-09-07] MEDS: Ipratropium/Albuterol Sulfate 3 ML AMPUL.NEB INHALATION (22:53)
[2022-09-07] MEDS: MethylPREDNISolone 125 MG/2 ML Vial IV (23:00)
[2022-09-07 23:02] LABS: Absolute Lymphocyte Count 0.76 X10^3/uL (0.83-4.51); Absolute Neutrophil Count 5.9 X10^3/uL (2.0-7.7); Basophil# 0.02 X10^3/uL; Basophil% 0.3 % (0-1); Eosinophil# 0.01 X10^3/uL; Eosinophils% 0.1 % (0-5); Hematocrit 39.7 % (37-47); Hemoglobin 12.1 g/dL (12.0-15.0); Lymphocyte # 0.76 X10^3/ul (0.83-4.51); Lymphocyte % 10.6 % (19-41); Mean Corp Hgb Conc 30.5 g/dL (32-36); Mean Corpuscular Hgb 26.7 pg (27.0-32.0); Mean Corpuscular Volume 87.4 fL (81-99); Mean Platelet Vol. 10.4 fl (6.2-12.0); Monocyte# 0.41 X10^3/uL; Monocyte% 5.7 % (0-10); NRBC Flagged by Analyzer 0 % (0-5); Neutrophil # 5.92 X10^3/uL (2.7-7.7); Neutrophil % 82.9 % (47-70); Platelet Count 219 K/mm3 (150-450); RBC Distribution Width CV 15.6 % (11.6-14.6); RBC Distribution Width SD 50.4 fl (35.1-43.9); Red Blood Count 4.54 M/mm3 (4.2-5.4); White Blood Count 7.2 K/mm3 (4.4-11.0)
--- NOTE | 2022-09-07 23:10 | RAD_ITS ---
STUDY: X-RAY CHEST REASON FOR EXAM: Female, 71 years old. Dyspnea. TECHNIQUE: Single AP portable view of the chest. COMPARISON: June 10, 2022 FINDINGS: No acute infiltrate or mass within the lungs. There is no demonstrated pleural abnormality. Normal size heart. Normal mediastinum and fortino. Normal visualized pulmonary arteries. There is atherosclerotic calcification of the aortic arch with tortuosity. No osseous changes. Again seen evidence of vertebral augmentation of mid thoracic vertebra. There is no demonstrated abnormality of the visualized soft tissue structures of the upper abdomen. RAD/Chest 1 View (Portable) IMPRESSION: No acute cardiopulmonary disease or major interval change. Electronically Signed: Elfego Omer DO at 23:34 EST ,
--- NOTE | 2022-09-07 23:13 | CPS ---
x1 Albuterol given to pt. in ER as well
[2022-09-07 23:27] LABS: Anion Gap 5 (5-15); BUN 14 mg/dL (7-18); BUN/Creat Ratio 18.6 RATIO (10-20); Calcium,Total 8.8 mg/dL (8.5-10.1); Chloride 101 mmol/L (98-107); Creatinine, Serum 0.75 mg/dL (0.55-1.02); EST Glomerular Filtration Rate 80 mL/min (>60); Est Glom Filt Rate - Afr Amer 97 mL/min (>60); Estimated Creatinine Clearance 41.45 ml/min; Glucose 186 mg/dL (74-106); Magnesium 1.9 mg/dL (1.6-2.6); Potassium 3.4 mmol/L (3.5-5.1); Sodium Level 133 mmol/L (136-145)
[2022-09-07 23:39] LABS: BNP,B-Type NATRIURETIC PEPTIDE 60.2 pg/mL (0-100)
[2022-09-08] VITALS (10 sets, daily range): BP systolic 111–164; BP diastolic 42–147; PULSE 71–84; RESP 16–22; TEMP 36.5–37.3; O2SAT 95–99; BMI 37.2
--- NOTE | 2022-09-08 00:59 | HP.PCM.HOS_ITS ---
HPI - General General Date of Admission: 09/08/22 Date of Service: 09/08/22 Chief Complaint: shortness of breath HPI Narrative AVE ANNE, is a 71 F with a past medical history as outlined including COPD and chronic respiratory failure on 4 L of oxygen at home who presents via the ED on 08/29/2022 with a complaint of shortness of breath that been going on for about a week. She had assisted diuresis and echo which was nonproductive. Her shortness of breath was not improving despite her using her inhalers. She admits to compliance with her oxygen. She denies any fever or chills, nausea vomiting or any other symptoms. She says she is mostly quit smoking but smokes and also going here and then. Review of systems otherwise negative. Vitals in the ED were blood pressure 111/47, pulse rate of 83 respiratory of 19. She was saturating at 98% on 4L of oxygen. CBC showed WBC of 7.2 with hemoglobin of 12.1 and platelets of 219. Chemistry was significant for sodium of 133 and potassium of 3.4. COVID and influenza screen were negative and chest x-ray showed no acute cardiopulmonary process. Patient felt quite weak and debilitated in the ED she has been admitted to be managed for acute COPD exacerbation. [facility] Medical History (Updated 09/08/22 @ 01:[address] Nate Lara, ) Asthma Atherosclerotic heart disease of [place] coronary artery without angina pectoris Bilateral pulmonary embolism BiPAP (biphasic positive airway pressure) dependence Chronic pain Chronic respiratory failure with hypoxia Compression fracture of body of thoracic vertebra Congestive heart failure (CHF) DVT (deep venous thrombosis) Essential hypertension Former smoker GERD (gastroesophageal reflux disease) History of left heart catheterization (07/05/16) Hyperlipidemia IBS (irritable bowel syndrome) Knee arthropathy Lung cancer Myocardial infarct On home oxygen therapy Orthopedic aftercare SHANA treated with BiPAP Osteoarthritis Osteoporosis Pulmonary embolism Restless leg syndrome Stage 3 severe COPD by GOLD classification Tobacco abuse Type 2 diabetes mellitus without complication Home Medications pramipexole 1.5 mg tablet 1.5 mg PO QHS restless legs 06/12/14 [History Last Taken 04/24/22] trazodone 100 mg tablet 100 mg PO QHS sleep 06/12/14 [History Last Taken 04/24/22] ropinirole 2 mg tablet 2 mg PO QHS restless legs 10/20/15 [History Last Taken 04/24/22] ibandronate 150 mg tablet 150 mg PO QMONTH bones 04/19/21 [History Last Taken 03/27/22] atorvastatin 80 mg tablet 80 mg PO QHS cholesterol 10/20/21 [History Last Taken 04/24/22] sertraline 50 mg tablet 50 mg PO DAILY anxiety 02/25/22 [History Last Taken 04/25/22] albuterol sulfate 90 mcg/actuation aerosol inhaler 2 puff inhalation Q4H PRN shortness of breath or wheezing #8.5 grams 02/26/22 [Rx Last Taken 04/25/22] lancets (Lancets,Ultra Thin) #200 ea 02/26/22 [Rx Last Taken Unknown] aspirin 81 mg chewable tablet 81 mg PO BREAKFAST heart health 04/25/22 [History Last Taken 04/25/22] albuterol sulfate 2.5 mg/3 mL (0.083 %) solution for nebulization 2.5 mg inhala tion Q4H PRN Shortness Of Breath 08/24/22 [History Last Taken Unknown] apixaban 5 mg tablet (Eliquis) 5 mg PO BID #60 tabs 08/24/22 [Rx Last Taken Unknown] azithromycin 250 mg tablet 250 mg PO DAILY 08/24/22 [History Last Taken Unknown] calcium carbonate 250 mg-vitamin D3 3.125 mcg (125 unit) tablet 1 tab PO BID 08/24/22 [History Last Taken Unknown] fluticasone fur. 100 mcg-umeclid 62.5 mcg-vilant 25 mcg inhalat.powder (Trelegy Ellipta) 1 inh inhalation DAILY 08/24/22 [History Last Taken Unknown] furosemide 20 mg tablet 40 mg PO DAILY water pill 08/24/22 [History Last Taken Unknown] glipizide 5 mg tablet 5 mg PO DAILY 08/24/22 [History Last Taken Unknown] guaifenesin 600 mg tablet, extended release 12 hr 600 mg PO BID 08/24/22 [History Last Taken Unknown] ipratropium 0.5 mg-albuterol 3 mg (2.5 mg base)/3 mL nebulization soln 3 ml inhalation Q4H PRN 08/24/22 [History Last Taken Unknown] losartan 50 mg tablet 50 mg PO DAILY 08/24/22 [History Last Taken Unknown] varenicline 1 mg tablet 1 mg PO BID 08/24/22 [History Last Taken Unknown] Allergy/AdvReac Type Severity Reaction Status Date / Time gabapentin [From Neurontin] Allergy Unknown mental Verified 09/07/22 22:22 status change bupropion HCl Allergy Hives Verified 09/07/22 22:22 [From Wellbutrin] moxifloxacin HCl Allergy Hives Verified 09/07/22 22:22 [From Avelox] Family History (Updated 08/24/22 @ 11:14 by Dasia Barcenas) Mother COPD (chronic obstructive pulmonary disease) Cancer Diabetes Heart disease Father COPD (chronic obstructive pulmonary disease) Cancer Diabetes Heart disease Sister Breast cancer Diabetes Brother Cancer Prostate and throat Heart disease Hypertension Diabetes Surgical History (Updated 08/24/22 @ 11:50 by Dasia Barcenas) H/O hand surgery H/O knee surgery H/O: hysterectomy History of back surgery History of History of colonoscopy History of coronary artery stent placement (07/17/21) History of esophagogastroduodenoscopy (EGD) History of repair of rectocele Status post lobectomy of lung Social History household members: none Smoking Status: Light Smoker (<10/day) how long ago did patient quit smoking: Quit tobacco use ~ 3 months prior 11/2021. alcohol intake: never substance use type: does not use ROS Review of Systems ROS Unobtainable: Denies due to encephalopathy Constitutional Constitutional: Reports fatigue, malaise and weakness; Denies anorexia, chills or fever(s) Eyes Eyes: Denies change in vision ENT HEENT: Denies ear pain, nasal congestion, sinus pressure or sore throat Cardiovascular Cardiovascular: Reports dyspnea on exertion; Denies chest pain, edema, lightheadedness, orthopnea, palpitations, paroxysmal nocturnal dyspnea, rapid heart rate or syncope Respiratory/Chest Respiratory/Chest: Reports cough, dyspnea, shortness of breath at rest, shortness of breath with exertion and wheezing; Denies excessive phlegm production, hemoptysis or productive cough Gastrointestinal Gastrointestinal: Denies abdominal pain, constipation, diarrhea, dyspepsia, nausea or vomiting Genitourinary Genitourinary: Denies burning urination or dysuria Musculoskeletal Musculoskeletal: Denies arthralgias, back pain or joint pain Neurologic Neurologic: Denies confusion, dizziness, focal weakness, headache(s), seizures, syncope or tingling Psychiatric Psychiatric: Denies anxiety or depression Endocrine Endocrinology: Denies change in body appearance Hematologic/Lymphatic Hematologic/Lymphatic: Denies anemia Vital Signs Vital Signs Vital Signs: 09/07/22 22:19 09/07/22 22:22 09/07/22 22:24 Temperature 98.7 F Temperature Source Temporal Pulse Rate 94 Respiratory Rate 19 H Respiratory Effort Short of Breath Labored Respiratory Depth Respiratory Pattern Blood Pressure Blood Pressure Mean Pulse Ox 93 98 Oxygen Delivery Method Nasal Cannula Nasal Cannula Nasal Cannula Oxygen Flow Rate (L/min) 4 4 09/07/22 22:53 09/07/22 22:53 09/08/22 00:51 Temperature Temperature Source Pulse Rate 84 84 Respiratory Rate 24 H 24 H 17 Respiratory Effort Normal Non-Labored Short of Breath Respiratory Depth Shallow Respiratory Pattern Tachypnea Tachypnea Blood Pressure 116/70 Blood Pressure Mean 85 Pulse Ox 96 95 Oxygen Delivery Method Nasal Cannula Room Air Oxygen Flow Rate (L/min) 4 Weight Weight: 216 lb 0.848 oz Body Mass Index (BMI) 38.2 Physical Exam Const alert, oriented x3 and no apparent distress General Appearance: cooperative HEENT normocephalic, head/scalp atraumatic, hearing grossly normal bilaterally and moist oral mucous membranes Mouth: oral and palatal mucosa normal Eyes PERRL, EOMs intact bilaterally and conjunctivae normal Neck no lymphadenopathy and supple Resp Resp Narrative: diminished breath souns bibasally, bilateral mild wheezing, no crackles. on 4L of oxygen which is her baseline Cardio regular rate, regular rhythm, S1 normal heart sound, S2 normal heart sound and no murmurs GI normal to inspection, nondistended, normoactive bowel sounds, soft to palpation and non-tender Extremity normal to inspection, full ROM and no clubbing, cyanosis or edema Neuro oriented x3, CN's II-XII intact bilaterally and moves all extremities Sensorium / Orientation: awake and alert Motor Exam: strength 5/5 throughout Psych affect normal Results Lab / Micro Data Result Diagrams: 09/07/22 22:35 09/07/22 22:35 Labs: Laboratory Results - last 24 hr 09/07/22 22:35: WBC 7.2, RBC 4.54, Hgb 12.1, Hct 39.7, MCV 87.4, MCH 26.7 L, MCHC 30.5 L, RDW Std Deviation 50.4 H, RDW Coeff of Doretha 15.6 H, Plt Count 219, MPV 10.4, Immature Gran % (Auto) 0.400, Neut % (Auto) 82.9 H, Lymph % (Auto) 10.6 L, [place] % (Auto) 5.7, Eos % (Auto) 0.1, Baso % (Auto) 0.3, Absolute Neuts (auto) 5.9, Absolute Lymphs (auto) 0.76 L, Nucleated RBC % 0 09/07/22 22:35: Sodium 133 L, Potassium 3.4 L, Chloride 101, Carbon Dioxide 27.0, Anion Gap 5, BUN 14, Creatinine 0.75, Estim Creat Clear Calc 41.45, Est GFR (MDRD) Af Amer 97, Est GFR (MDRD) Non-Af 80, BUN/Creatinine Ratio 18.6, Glucose 186 H, Calcium 8.8, Magnesium 1.9 09/07/22 22:35: B-Natriuretic Peptide 60.2 Micro: Microbiology 09/07/22 22:35 Nasal Secretion SARS-CoV-2 & FLU Antigen (Rapid) - Final Radiology Impression Chest X-Ray 09/07/22 23:10 IMPRESSION: No acute cardiopulmonary disease or major interval change. Electronically Signed: Elfego Omer DO at 23:34 EST Reading Location ID and State: [address] [place] [address] Tel [phone], Service support , Assessment & Plan Assessment/Plan (1) Acute exacerbation of chronic obstructive pulmonary disease: PLAN: Plan #Acute COPD exacerbation * Admit to [facility] under observation * Breathing treatments bronchodilators. On her baseline 4 L of oxygen. * COVID and influenza screen was negative. * Placed on IV Solu-Medrol 40 mg every 8. Breathing treatments bronchodilators. Titrate oxygen to maintain saturation above 90%. * #Debility and weakness due to COPD exacerbation * Consult PT OT. Fall precautions. * #Chronic hypoxic respiratory failure due to COPD * on her baseline 4L of oxygen * breathing treatment with bronchodilators * #Hyperlipidemia: on statin #SHANA: on BIPAP qhs #CAD: on aspirin and statin #Hypertension: on losartan #TYpe 2 diabetes mellitus: on glipizide. ISS. Naida POOLE #History of lung cancer: stable #Anxiety and depression; on sertraline #Restless leg syndrome: on ropinirole and pramipexole #Nicotine dependence; still smokes but she says she smokes only 1 cigarettes occasionally. On Chantix DVT Prophylaxis: Lovenox CODE STATUS: Presumed full code for now * Patient counseled extensively about different types of CODE STATUS including full code, DNR CCA and DNR CCA. Patient said the question scared her and she wanted more time to think about it. Will place as full code for now. * total face to face time 17 mins Charges/Coding Visit Charges OBSV E&M: 39429 Observ/hosp same date L3 Procedures Hospitalists Procedures: 90814 Advncd Care Plan 30 Min
--- NOTE | 2022-09-08 01:45 | EX.ED.DYSGE1 ---
HPI History of Present Illness Chief Complaint: Shortness of Breath Narrative Narrative: Patient is a 71-year-old female with past medical history of COPD as well as hypertension diabetes and sleep apnea. She states she wears 4 L of nasal cannula oxygen 18/03. Patient states that in the last 1 to 2 days she has had increased shortness of breath despite wearing her oxygen and that she has had increased weakness as well. She states that she lives at home alone and today felt so weak that she could not even stand up out of her chair to use the restroom. She denies any known sick contacts but with her worsening symptoms comes in for evaluation [facility] Medical History (Updated 09/08/22 @ 04:[address] Nate Lara, ) Asthma Atherosclerotic heart disease of [place] coronary artery without angina pectoris Bilateral pulmonary embolism BiPAP (biphasic positive airway pressure) dependence Chronic pain Chronic respiratory failure with hypoxia Compression fracture of body of thoracic vertebra Congestive heart failure (CHF) DVT (deep venous thrombosis) Essential hypertension Former smoker GERD (gastroesophageal reflux disease) History of left heart catheterization (07/05/16) Hyperlipidemia IBS (irritable bowel syndrome) Knee arthropathy Lung cancer Myocardial infarct On home oxygen therapy Orthopedic aftercare SHANA treated with BiPAP Osteoarthritis Osteoporosis Pulmonary embolism Restless leg syndrome Stage 3 severe COPD by GOLD classification Tobacco abuse Type 2 diabetes mellitus without complication Home Medications pramipexole 1.5 mg tablet 1.5 mg PO QHS restless legs 06/12/14 [History Last Taken 04/24/22] trazodone 100 mg tablet 100 mg PO QHS sleep 06/12/14 [History Last Taken 04/24/22] ropinirole 2 mg tablet 2 mg PO QHS restless legs 10/20/15 [History Last Taken 04/24/22] atorvastatin 80 mg tablet 80 mg PO QHS cholesterol 10/20/21 [History Last Taken 04/24/22] sertraline 50 mg tablet 50 mg PO DAILY anxiety 02/25/22 [History Last Taken 04/25/22] albuterol sulfate 90 mcg/actuation aerosol inhaler 2 puff inhalation Q4H PRN shortness of breath or wheezing #8.5 grams 02/26/22 [Rx Last Taken 04/25/22] lancets (Lancets,Ultra Thin) #200 ea 02/26/22 [Rx Last Taken Unknown] aspirin 81 mg chewable tablet 81 mg PO BREAKFAST heart health 04/25/22 [History Last Taken 04/25/22] albuterol sulfate 2.5 mg/3 mL (0.083 %) solution for nebulization 2.5 mg inhalation Q4H PRN Shortness Of Breath 08/24/22 [History Last Taken Unknown] apixaban 5 mg tablet (Eliquis) 5 mg PO BID #60 tabs 08/24/22 [Rx Last Taken Unknown] azithromycin 250 mg tablet 250 mg PO DAILY 08/24/22 [History Last Taken Unknown] calcium carbonate 250 mg-vitamin D3 3.125 mcg (125 unit) tablet 1 tab PO BID 08/24/22 [History Last Taken Unknown] fluticasone fur. 100 mcg-umeclid 62.5 mcg-vilant 25 mcg inhalat.powder (Trelegy Ellipta) 1 inh inhalation DAILY 08/24/22 [History Last Taken Unknown] furosemide 20 mg tablet 40 mg PO DAILY water pill 08/24/22 [History Last Taken Unknown] ipratropium 0.5 mg-albuterol 3 mg (2.5 mg base)/3 mL nebulization soln 3 ml inhalation Q4H PRN 08/24/22 [History Last Taken Unknown] losartan 50 mg tablet 50 mg PO DAILY 08/24/22 [History Last Taken Unknown] varenicline 1 mg tablet 1 mg PO BID 08/24/22 [History Last Taken Unknown] ibandronate 150 mg tablet (Boniva) 150 mg PO QMONTH 09/08/22 [History Last Taken 08/09/22] insulin glargine 100 unit/mL subcutaneous cartridge unit subcut 09/08/22 [History Last Taken 09/07/22] oxycodone 5 mg tablet 5 mg PO Q6H pain 09/08/22 [History Last Taken 09/07/22] Allergy/AdvReac Type Severity Reaction Status Date / Time gabapentin [From Neurontin] Allergy Unknown mental Verified 09/07/22 22:22 status change bupropion HCl Allergy Hives Verified 09/07/22 22:22 [From Wellbutrin] moxifloxacin HCl Allergy Hives Verified 09/07/22 22:22 [From Avelox] Family History (Updated 08/24/22 @ 11:14 by Dasia Barcenas) Mother COPD (chronic obstructive pulmonary disease) Cancer Diabetes Heart disease Father COPD (chronic obstructive pulmonary disease) Cancer Diabetes Heart disease Sister Breast cancer Diabetes Brother Cancer Prostate and throat Heart disease Hypertension Diabetes Surgical History H/O hand surgery H/O knee surgery H/O: hysterectomy History of back surgery History of History of colonoscopy History of coronary artery stent placement (07/17/21) History of esophagogastroduodenoscopy (EGD) History of repair of rectocele Status post lobectomy of lung Social History household members: none Smoking Status: Light Smoker (<10/day) how long ago did patient quit smoking: Quit tobacco use ~ 3 months prior 11/2021. alcohol intake: never substance use type: does not use ROS ROS ED Constitutional Constitutional ED: Reports other Details: Positive weakness ; Denies chills or fever(s) Eyes Eyes: Denies change in vision ENT ENT ED: Denies rhinorrhea or sore throat Cardiovascular Cardiovascular: Denies chest pain or palpitations Respiratory/Chest Respiratory/Chest: Reports cough and dyspnea Gastrointestinal Gastrointestinal: Denies abdominal pain, diarrhea, nausea or vomiting Genitourinary Genitourinary ED: Denies dysuria Musculoskeletal Musculoskeletal: Denies myalgias Integumentary Denies rash Neurologic Neurologic: Denies headache(s) Hematologic/Lymphatic Hematologic/Lymphatic: Denies easy bleeding or easy bruising EXAM Physical Exam Const Vital Signs: 09/07/22 22:19 09/07/22 22:22 09/07/22 22:24 Temperature 98.7 F Temperature Source Temporal Pulse Rate 94 Respiratory Rate 19 H Respiratory Effort Short of Breath Labored Respiratory Depth Respiratory Pattern Blood Pressure Blood Pressure Mean Pulse Ox 93 98 Oxygen Delivery Method Nasal Cannula Nasal Cannula Nasal Cannula Oxygen Flow Rate (L/min) 4 4 09/07/22 22:53 09/07/22 22:53 09/08/22 00:51 Temperature Temperature Source Pulse Rate 84 84 Respiratory Rate 24 H 24 H 17 Respiratory Effort Normal Non-Labored Short of Breath Respiratory Depth Shallow Respiratory Pattern Tachypnea Tachypnea Blood Pressure 116/70 Blood Pressure Mean 85 Pulse Ox 96 95 Oxygen Delivery Method Nasal Cannula Room Air Oxygen Flow Rate (L/min) 4 09/08/22 01:06 Temperature Temperature Source Pulse Rate 83 Respiratory Rate 19 H Respiratory Effort Respiratory Depth Respiratory Pattern Blood Pressure 111/47 L Blood Pressure Mean 68 Pulse Ox 98 Oxygen Delivery Method Room Air Oxygen Flow Rate (L/min) Positive well nourished, well developed and obese General Appearance ED: well developed Nutritional Appearance: obese HEENT Reports moist mucous membranes HEENT Narrative: No tongue or lip swelling no oral lesions no airway edema or compromise Eyes PERRL and EOMs intact bilaterally General Eye ED: Negative for pale conjunctiva or scleral icterus Neck supple and no JVD Chest Wall palpation of chest normal Resp Resp Narrative: Patient is tachypneic with diminished breath sounds throughout and diffuse expiratory and inspiratory wheezing. She also has dyspnea with speech and can talk in 4-5 word sentences Cardio regular rate and regular rhythm Rate: other Other Details: Radial pulses are plus 2 out of 4 bilaterally are equal and symmetric GI normal to inspection, nondistended, normoactive bowel sounds, non-tender and non-distended GI Narrative: No voluntary guarding or rigidity no pulsatile mass or fluid wave Auscultation: normoactive bowel sounds Palpation: soft Extremity normal to inspection Extremity Narrative: No asymmetric edema no pitting edema negative Homans' sign bilaterally Neuro oriented x3 and CN's II-XII intact bilaterally Sensorium / Orientation: alert Psych Psych Narrative: Patient has a depressed/flat affect Skin no rashes or lesions noted MDM MDM MDM Narrative Medical decision making narrative: Patient presented to the ER mildly tachypneic but otherwise with stable vitals and satting in the mid 90s on her normal 4 L. Secondary to complaint of shortness of breath and generalized weakness I did elect to perform a chest x-ray and basic laboratory studies as well as viral swabs. Labs revealed no clinically significant findings and chest x-ray revealed no acute infiltrate. She maintained an oxygen saturation in the mid 90s on her normal 4 L but she did seem somewhat more fatigued/lethargic on reevaluation so blood gas was obtained which showed normal SPO2 as well as PCO2. Therefore do not feel the need to place her on BiPAP. I attempted to ambulate the patient in the ER and she cannot do so she was so weak that she required 2 individuals to hold her from falling. As she lives alone it is not safe or acceptable to try to disposition her back to self-care and therefore should be admitted to the hospital for further treatment Lab Data Attestation: I reviewed the patient's lab results. Labs: Laboratory Results - last 24 hr 09/07/22 09/07/22 09/07/22 22:35 22:35 22:35 WBC 7.2 RBC 4.54 Hgb 12.1 Hct 39.7 MCV 87.4 MCH 26.7 L MCHC 30.5 L RDW Std Deviation 50.4 H RDW Coeff of Doretha 15.6 H Plt Count 219 MPV 10.4 Immature Gran % (Auto) 0.400 Neut % (Auto) 82.9 H Lymph % (Auto) 10.6 L [place] % (Auto) 5.7 Eos % (Auto) 0.1 Baso % (Auto) 0.3 Absolute Neuts (auto) 5.9 Absolute Lymphs (auto) 0.76 L Nucleated RBC % 0 Sodium 133 L Potassium 3.4 L Chloride 101 Carbon Dioxide 27.0 Anion Gap 5 BUN 14 Creatinine 0.75 Estim Creat Clear Calc 41.45 Est GFR (MDRD) Af Amer 97 Est GFR (MDRD) Non-Af 80 BUN/Creatinine Ratio 18.6 Glucose 186 H Calcium 8.8 Magnesium 1.9 B-Natriuretic Peptide 60.2 Radiography Diagnostic Testing: Clinical Impression(s) from Imaging Studies Chest X-Ray 09/07/22 23:10 IMPRESSION: No acute cardiopulmonary disease or major interval change. Electronically Signed: Elfego Omer DO at 23:34 EST Reading Location ID and State: [address] [place] [address] Tel [phone], Service support , Chest x-ray as interpreted by the emergency medicine physician reveals no acute infiltrate pneumothorax or pleural effusion Discharge Plan Dx/Rx/DC Orders Clinical Impression: Acute exacerbation of chronic obstructive pulmonary disease, Debility, Type 2 diabetes mellitus without complication, Essential hypertension Disposition Disposition: Acute Care [facility] Discharge Date/Time: 09/08/22 02:51
[2022-09-08 02:41] LABS: Allen Test Positive; Base Excess 4 mmol/L (-2 to +2); Blood Gas Specimen Type ART; O2 Delivery Device Cannula; PO2 103 mmHG (75-100); SITE R Radial; SO2 98 % (95-99); Total Carbon Dioxide 29 mmol/L; pCO2 43.6 mmHg (35-45); pH 7.42 (7.35-7.45)
[2022-09-08] MEDS: Pramipexole Di-HCl 0.5 MG Tablet 1.5 MG PO ×2 (04:34→20:21)
[2022-09-08] MEDS: 0.9% Saline Lock 10 ML Syringe IV ×2 (04:38→14:53)
--- NOTE | 2022-09-08 04:52 | NURSING ---
02 decreased to 4lnc
[2022-09-08 06:19] LABS: Absolute Lymphocyte Count 0.43 X10^3/uL (0.83-4.51); Absolute Neutrophil Count 4.7 X10^3/uL (2.0-7.7); Basophil# 0.01 X10^3/uL; Basophil% 0.2 % (0-1); Hematocrit 37.1 % (37-47); Hemoglobin 11.7 g/dL (12.0-15.0); Lymphocyte # 0.43 X10^3/ul (0.83-4.51); Lymphocyte % 8.2 % (19-41); Mean Corp Hgb Conc 31.5 g/dL (32-36); Mean Corpuscular Volume 85.5 fL (81-99); Mean Platelet Vol. 10.7 fl (6.2-12.0); Monocyte# 0.05 X10^3/uL; NRBC Flagged by Analyzer 0 % (0-5); Neutrophil # 4.73 X10^3/uL (2.7-7.7); Neutrophil % 90.2 % (47-70); POSITIVE DIFFERENTIAL YES; Platelet Count 219 K/mm3 (150-450); RBC Distribution Width CV 15.6 % (11.6-14.6); Red Blood Count 4.34 M/mm3 (4.2-5.4); White Blood Count 5.2 K/mm3 (4.4-11.0)
[2022-09-08] MEDS: Insulin Lispro 100 UNIT/ML INSULN.PEN SC ×4 (06:29→20:27)
[2022-09-08 06:33] LABS: Differential Indicated SCAN CRITERIA MET
[2022-09-08 06:40] LABS: Anion Gap 6 (5-15); BUN 15 mg/dL (7-18); BUN/Creat Ratio 19.6 RATIO (10-20); Calcium,Total 8.9 mg/dL (8.5-10.1); Chloride 101 mmol/L (98-107); Creatinine, Serum 0.76 mg/dL (0.55-1.02); EST Glomerular Filtration Rate 79 mL/min (>60); Est Glom Filt Rate - Afr Amer 95 mL/min (>60); Estimated Creatinine Clearance 41.45 ml/min; Glucose 307 mg/dL (74-106); Potassium 3.6 mmol/L (3.5-5.1); Sodium Level 137 mmol/L (136-145)
[2022-09-08 07:01] LABS: Bedside Glucose 275 mg/dL (74-106)
[2022-09-08 07:08] LABS: Differential Comment SCANNED
[2022-09-08] MEDS: Ipratropium/Albuterol Sulfate 3 ML AMPUL.NEB INHALATION ×3 (07:23→19:17)
[2022-09-08] MEDS: Budesonide Respules 0.5 MG/2 ML AMPUL.NEB. INHALATION ×2 (07:23→19:17)
[2022-09-08] MEDS: Aspirin 81 MG TAB.CHEW PO (08:52)
[2022-09-08] MEDS: glipiZIDE 5 MG Tablet PO (08:54)
[2022-09-08] MEDS: Losartan Potassium 50 MG Tablet PO (09:48)
[2022-09-08] MEDS: Furosemide 40 MG Tablet PO (09:48)
[2022-09-08] MEDS: Nystatin Powder 15gm Bottle 1 APPLIC TOPICAL ×2 (09:48→20:22)
[2022-09-08] MEDS: guaiFENesin 600 MG Tablet PO ×2 (09:48→20:20)
[2022-09-08] MEDS: APIXABAN 5 MG TABLET PO ×2 (09:48→20:21)
[2022-09-08] MEDS: Calcium Carb/Vitamin D 1 TABLET Tablet PO ×2 (09:49→20:19)
[2022-09-08] MEDS: Sertraline 50 MG Tablet PO (09:49)
[2022-09-08] MEDS: Varenicline 1 MG Tablet PO ×2 (09:49→20:22)
[2022-09-08] MEDS: Acetaminophen 325 MG Tablet 650 MG PO (09:58)
[2022-09-08] MEDS: oxyCODONE 5 MG Tablet PO ×2 (09:58→20:18)
[2022-09-08 12:00] LABS: Bedside Glucose 354 mg/dL (74-106)
--- NOTE | 2022-09-08 15:24 | PCM.PN.HOSP ---
Subjective Subjective Ports breathing is doing somewhat better, feels slightly stronger but still feels very weak compared to baseline. Does report some cough with sputum production Objective Data Objective Data Vital Signs: Vital Signs Temp Pulse Resp BP Pulse Ox O2 Del Method O2 Flow Rate 98.1 F 80 18 123/55 H 97 Nasal Cannula 4 09/08/22 14:50 09/08/22 14:50 09/08/22 14:50 09/08/22 14:50 09/08/22 14:50 09/08/22 14:50 09/08/22 14:50 Oxygen Flow Rate (L/min) 4 Oxygen Delivery Method Nasal Cannula Weight: 95.345 kg Body Mass Index (BMI) 37.2 Intake & Output: Intake and Output for Last 24 Hours 09/06/22 09/07/22 09/08/22 23:59 23:59 23:59 Intake Total 500 / 500 Balance 500 / 500 Lab / Micro Data Result Diagrams: 09/08/22 05:22 09/08/22 05:22 Labs: Laboratory Results - last 24 hr 09/07/22 22:35: WBC 7.2, RBC 4.54, Hgb 12.1, Hct 39.7, MCV 87.4, MCH 26.7 L, MCHC 30.5 L, RDW Std Deviation 50.4 H, RDW Coeff of Doretha 15.6 H, Plt Count 219, MPV 10.4, Immature Gran % (Auto) 0.400, Neut % (Auto) 82.9 H, Lymph % (Auto) 10.6 L, [place] % (Auto) 5.7, Eos % (Auto) 0.1, Baso % (Auto) 0.3, Absolute Neuts (auto) 5.9, Absolute Lymphs (auto) 0.76 L, Nucleated RBC % 0 09/07/22 22:35: Sodium 133 L, Potassium 3.4 L, Chloride 101, Carbon Dioxide 27.0, Anion Gap 5, BUN 14, Creatinine 0.75, Estim Creat Clear Calc 41.45, Est GFR (MDRD) Af Amer 97, Est GFR (MDRD) Non-Af 80, BUN/Creatinine Ratio 18.6, Glucose 186 H, Calcium 8.8, Magnesium 1.9 09/07/22 22:35: B-Natriuretic Peptide 60.2 09/08/22 05:22: WBC 5.2, RBC 4.34, Hgb 11.7 L, Hct 37.1, MCV 85.5, MCH 27.0, MCHC 31.5 L, RDW Std Deviation 49.0 H, RDW Coeff of Doretha 15.6 H, Plt Count 219, MPV 10.7, Immature Gran % (Auto) 0.400, Neut % (Auto) 90.2 H, Lymph % (Auto) 8.2 L, [place] % (Auto) 1.0, Eos % (Auto) 0.0, Baso % (Auto) 0.2, Absolute Neuts (auto) 4.7, Absolute Lymphs (auto) 0.43 L, Nucleated RBC % 0, Differential Comment SCANNED 09/08/22 05:22: Sodium 137, Potassium 3.6, Chloride 101, Carbon Dioxide 30.0, Anion Gap 6, BUN 15, Creatinine 0.76, Estim Creat Clear Calc 41.45, Est GFR (MDRD) Af Amer 95, Est GFR (MDRD) Non-Af 79, BUN/Creatinine Ratio 19.6, Glucose 307 H, Calcium 8.9 09/08/22 06:18: POC Glucose 275 H 09/08/22 11:26: POC Glucose 354 H Micro: Microbiology 09/07/22 22:35 Nasal Secretion SARS-CoV-2 & FLU Antigen (Rapid) - Final ABG Data ABG results: ABG 09/08/22 09/08/22 02:16 02:35 Specimen Type Cancelled ART Sample Site Cancelled R Radial pH 7.42 Bicarbonate Actual 28.0 H Total CO2 29 Base Excess 4 H O2 Saturation 98 O2 % Cancelled ABG pCO2 43.6 ABG pO2 103 H Russell Test Positive VBG pH Cancelled VBG pH (Temp Correct) Cancelled VBG pCO2 (Temp Corrct Cancelled VBG pO2 Cancelled VBG HCO3 Cancelled VBG Total CO2 Cancelled VBG O2 Sat (Calc) Cancelled VBG Base Excess Cancelled POC Mix VBG pCO2 Pt Tmp Cancelled Respiration Rate Cancelled O2 Delivery Device Cancelled Cannula Liter Flow Cancelled 4.0 Minute Volume Cancelled Inspiratory Time Cancelled Expiratory Time Cancelled Tidal Volume Cancelled Mean Airway Pressure Cancelled POC PEEP Cancelled Peak Inspir Pressure Cancelled POC Pressure Suppt Cancelled Pressure Control Cancelled EPAP Cancelled IPAP Cancelled Blood Gas Comments Cancelled Crit Call To/Read Back Cancelled Blood Gas Notified Whom Cancelled Blood Gas Notified Time Cancelled Clinical Comments Cancelled Radiography Diagnostic Testing: Radiology Impression Chest X-Ray 09/07/22 23:10 IMPRESSION: No acute cardiopulmonary disease or major interval change. Electronically Signed: Elfego Omer, DO at 23:34 EST Reading Location ID and State: [address] [place] [address] Tel [phone], Service support , Physical Exam Const alert and no apparent distress Constitutional Narrative: Oriented HEENT normocephalic and head/scalp atraumatic Eyes Eyes Narrative: EOM grossly intact, anicteric Neck supple Resp normal respiratory effort Resp Narrative: Wheezes in the bases bilaterally Cardio regular rate and regular rhythm GI soft to palpation, non-tender and non-distended Extremity Extremity Narrative: No edema appreciated Neuro moves all extremities Neuro Narrative: No overt focal deficits appreciated Psych Psych Narrative: Cooperative Assessment & Plan Assessment/Plan (1) Acute exacerbation of chronic obstructive pulmonary disease: PLAN: Plan #Acute on chronic hypoxic respiratory failure secondary to acute exacerbation of COPD with history of lung cancer On 4 L O2 at baseline, had been dropping with ambulation and primarily is very weak Bronchodilators, azithromycin, prednisone COVID and flu negative Will get respiratory panel Chest x-ray with no acute infiltrates #Type 2 diabetes mellitus On sliding scale insulin and glipizide, has significantly elevated glucose, will start 5 units of long-acting at bedtime #General weakness Still feels fairly far from baseline PT evaluated and thought she potentially go home with help Will discuss with her if this is an option if she is unsure if she can care for herself at this time #Coronary artery disease and ischemic cardiomyopathy Continue Lasix, aspirin, statin #SHANA BiPAP nightly
--- NOTE | 2022-09-08 15:45 | CASEMGMT ---
CONNOR ZIMMERMAN DC Planning Assessment: Face to Face with patient for initial transition planning/care coordination assessment. CONNOR ZIMMERMAN introduced self and role at [facility], pt voices understanding. Pt alert, answering questions appropriately and agreeable to participating in the assessment. Care providers, pharmacy, and demographics verified. Admitting Dx: COPD exac PCP: Grace Specialists: Zaynab (cardio), Preet (pulm), Enrike (thoracic surgeon), Jose (ortho surgeon), Kalpesh (ortho) Insurance: [employer] Prescription Benefit: yes LNOK: daughter Camille, son Marshall Living Arrangements: Pt lives alone in a single story apartment with no steps to enter. Pt is independent with ADLs but does have some difficulty with activity tolerance stating I have gone down hill over the past few months. Pt has groceries delivered from [employer]. Transportation: Pt does drive but not often due to difficulty tolerating getting to her van. Family assists as needed DME: Shower chair, high rise toilet, walker, trilogy/bipap, O2 at 4l/min w/portability from [employer], nebuilizer, pulse oximeter, BP cuff, glumeter and supplies, and medical alert. SNF: [facility], [facility] HHC: [facility] HH previously; Pt does have a CM through [facility], Nanda Salazar. They are working on getting her CONTACT CENTER ASSISTANT assistance but due to staffing constraints this has not been arranged. Plan: Pt states a SNF has been recommended. Noted pt ambulated 30ft with PT on this date but with poor activity tolerance. Explained to pt she may not qualify for a SNF based on insurance criteria. Pt agreeable to HH if SNF not indicated. List of home health agencies from [facility] Guide including quality and resource use data and consistent with her preferred geographic area, medical needs, and insurance network. Pt states she would like to return to [facility] HH that she had previously if HH is determined to be the appropriate level of care. Will await sending referral until LOC at DC is determined. Will continue to follow to determine appropriate DC LOC and assist with transition coordination. Kat Rosado RN CM
[2022-09-08] MEDS: Azithromycin 250 MG Tablet 500 MG PO (17:05)
[2022-09-08 17:35] LABS: Bedside Glucose 211 mg/dL (74-106)
[2022-09-08] MEDS: Atorvastatin Calcium 80 MG Tablet PO (20:20)
[2022-09-08] MEDS: Pramipexole Di-HCl 1 MG Tablet PO (20:21)
[2022-09-08] MEDS: traZODone 100 MG Tablet PO (20:27)
[2022-09-08] MEDS: Insulin Glargine-YFGN 100 UNIT/ML Pen SC (20:27)
[2022-09-08 21:01] LABS: Bedside Glucose 331 mg/dL (74-106)
[2022-09-09] VITALS (10 sets, daily range): BP systolic 106–156; BP diastolic 43–67; PULSE 60–78; RESP 18–22; TEMP 36.5–37; O2SAT 96–100
[2022-09-09] MEDS: MELATONIN 3 MG TABLET PO (00:17)
--- NOTE | 2022-09-09 00:17 | NURSING ---
pt asks not to be woken during the night.
[2022-09-09] MEDS: 0.9% Saline Lock 10 ML Syringe IV (05:17)
[2022-09-09 05:19] LABS: Absolute Lymphocyte Count 0.83 X10^3/uL (0.83-4.51); Absolute Neutrophil Count 6.1 X10^3/uL (2.0-7.7); Basophil# 0.01 X10^3/uL; Basophil% 0.1 % (0-1); Hematocrit 36.3 % (37-47); Hemoglobin 11.2 g/dL (12.0-15.0); Lymphocyte # 0.83 X10^3/ul (0.83-4.51); Lymphocyte % 11.2 % (19-41); Mean Corp Hgb Conc 30.9 g/dL (32-36); Mean Corpuscular Hgb 26.7 pg (27.0-32.0); Mean Corpuscular Volume 86.4 fL (81-99); Mean Platelet Vol. 10.7 fl (6.2-12.0); Monocyte# 0.37 X10^3/uL; NRBC Flagged by Analyzer 0 % (0-5); Neutrophil # 6.12 X10^3/uL (2.7-7.7); Neutrophil % 82.8 % (47-70); Platelet Count 240 K/mm3 (150-450); RBC Distribution Width CV 15.6 % (11.6-14.6); RBC Distribution Width SD 48.9 fl (35.1-43.9); White Blood Count 7.4 K/mm3 (4.4-11.0)
[2022-09-09 05:33] LABS: Anion Gap 7 (5-15); BUN 26 mg/dL (7-18); Calcium,Total 8.9 mg/dL (8.5-10.1); Chloride 101 mmol/L (98-107); Creatinine, Serum 0.76 mg/dL (0.55-1.02); EST Glomerular Filtration Rate 79 mL/min (>60); Est Glom Filt Rate - Afr Amer 95 mL/min (>60); Estimated Creatinine Clearance 41.45 ml/min; Glucose 243 mg/dL (74-106); Potassium 4.1 mmol/L (3.5-5.1); Sodium Level 138 mmol/L (136-145)
[2022-09-09] MEDS: Insulin Lispro 100 UNIT/ML INSULN.PEN SC ×4 (06:28→22:05)
[2022-09-09] MEDS: Budesonide Respules 0.5 MG/2 ML AMPUL.NEB. INHALATION ×2 (07:25→19:31)
[2022-09-09] MEDS: Ipratropium/Albuterol Sulfate 3 ML AMPUL.NEB INHALATION ×3 (07:25→19:31)
[2022-09-09 08:46] LABS: Bedside Glucose 264 mg/dL (74-106)
[2022-09-09] MEDS: glipiZIDE 5 MG Tablet PO (08:54)
[2022-09-09] MEDS: predniSONE 20 MG Tablet 40 MG PO (08:54)
[2022-09-09] MEDS: Aspirin 81 MG TAB.CHEW PO (08:54)
[2022-09-09] MEDS: Sertraline 50 MG Tablet PO (09:17)
[2022-09-09] MEDS: guaiFENesin 600 MG Tablet PO ×2 (09:17→22:07)
[2022-09-09] MEDS: Calcium Carb/Vitamin D 1 TABLET Tablet PO ×2 (09:17→22:06)
[2022-09-09] MEDS: Losartan Potassium 50 MG Tablet PO (09:17)
[2022-09-09] MEDS: APIXABAN 5 MG TABLET PO ×2 (09:18→22:08)
[2022-09-09] MEDS: Azithromycin 250 MG Tablet 500 MG PO (09:18)
[2022-09-09] MEDS: Nystatin Powder 15gm Bottle 1 APPLIC TOPICAL ×2 (09:19→22:09)
[2022-09-09] MEDS: Varenicline 1 MG Tablet PO ×2 (09:19→22:07)
[2022-09-09] MEDS: Furosemide 40 MG Tablet PO (09:19)
[2022-09-09] MEDS: Acetaminophen 325 MG Tablet 650 MG PO (09:22)
[2022-09-09] MEDS: oxyCODONE 5 MG Tablet PO ×2 (09:23→22:13)
--- NOTE | 2022-09-09 09:51 | PN.HOSP_ITS ---
Subjective Subjective Sitting up in chair, breathing is better than yesterday but still far enough from baseline she still significantly short of breath, also feeling generally weak Objective Data Objective Data Vital Signs: Vital Signs Temp Pulse Resp BP Pulse Ox O2 Del Method O2 Flow Rate 98.6 F 74 20 H 128/65 H 100 Nasal Cannula 4 09/09/22 08:57 09/09/22 08:57 09/09/22 08:57 09/09/22 08:57 09/09/22 08:57 09/09/22 09:05 09/09/22 09:05 Oxygen Flow Rate (L/min) 4 Oxygen Delivery Method Nasal Cannula Weight: 95.345 kg Body Mass Index (BMI) 37.2 Intake & Output: Intake and Output for Last 24 Hours 09/07/22 09/08/22 09/09/22 23:59 23:59 23:59 Intake Total 800 / 800 Balance 800 / 800 Lab / Micro Data Result Diagrams: 09/09/22 04:40 09/09/22 04:40 Labs: Laboratory Results - last 24 hr 09/08/22 11:26: POC Glucose 354 H 09/08/22 17:02: POC Glucose 211 H 09/08/22 20:25: POC Glucose 331 H 09/09/22 04:40: WBC 7.4, RBC 4.20, Hgb 11.2 L, Hct 36.3 L, MCV 86.4, MCH 26.7 L, MCHC 30.9 L, RDW Std Deviation 48.9 H, RDW Coeff of Doretha 15.6 H, Plt Count 240, MPV 10.7, Immature Gran % (Auto) 0.900, Neut % (Auto) 82.8 H, Lymph % (Auto) 11.2 L, [place] % (Auto) 5.0, Eos % (Auto) 0.0, Baso % (Auto) 0.1, Absolute Neuts (auto) 6.1, Absolute Lymphs (auto) 0.83, Nucleated RBC % 0 09/09/22 04:40: Sodium 138, Potassium 4.1, Chloride 101, Carbon Dioxide 30.0, Anion Gap 7, BUN 26 H, Creatinine 0.76, Estim Creat Clear Calc 41.45, Est GFR (MDRD) Af Amer 95, Est GFR (MDRD) Non-Af 79, BUN/Creatinine Ratio 34.0 H, Gluc ose 243 H, Calcium 8.9 09/09/22 08:26: POC Glucose 264 H Micro: Microbiology 09/08/22 17:06 Mucosa - Nose Respiratory Panel (PCR) - Final 09/07/22 22:35 Nasal Secretion SARS-CoV-2 & FLU Antigen (Rapid) - Final Physical Exam Const alert and no apparent distress Constitutional Narrative: Oriented HEENT normocephalic and head/scalp atraumatic Eyes Eyes Narrative: EOM grossly intact, anicteric Neck supple Resp Resp Narrative: Slight increased work of breathing, diffuse wheezes Cardio regular rate and regular rhythm GI soft to palpation, non-tender and non-distended Extremity Extremity Narrative: No edema appreciated Neuro moves all extremities Neuro Narrative: No overt focal deficits appreciated Psych Psych Narrative: Cooperative Assessment & Plan Assessment/Plan (1) Acute exacerbation of chronic obstructive pulmonary disease: PLAN: Plan #Acute on chronic hypoxic respiratory failure secondary to acute exacerbation of COPD with history of lung cancer On 4 L O2 at baseline, had been dropping with ambulation and primarily is very weak Bronchodilators, azithromycin, prednisone COVID and flu negative Will get respiratory panel Chest x-ray with no acute infiltrates 09/09: Still quite short of breath, not yet ready for discharge, continue nebs, azithromycin, prednisone. #Type 2 diabetes mellitus On sliding scale insulin and glipizide, has significantly elevated glucose, will start 5 units of long-acting at bedtime #General weakness Still feels fairly far from baseline PT evaluated and thought she potentially go home with help Will discuss with her if this is an option if she is unsure if she can care for herself at this time 09/09: Somewhat weaker today, still to work with PT #Coronary artery disease and ischemic cardiomyopathy Continue Lasix, aspirin, statin #SHANA BiPAP nightly Charges/Coding Visit Charges Inpatient E&M: 12926 Subs Hosp L1
[2022-09-09 10:01] LABS: Bedside Glucose 283 mg/dL (74-106)
[2022-09-09 12:05] LABS: Bedside Glucose 375 mg/dL (74-106)
--- NOTE | 2022-09-09 14:47 | EKG12_ITS ---
Test Reason : DYSRHYTHMIA Blood Pressure : / mmHG Vent. Rate : 080 BPM Atrial Rate : 080 BPM P-R Int : 204 ms QRS Dur : 092 ms QT Int : 352 ms P-R-T Axes : 008 042 065 degrees QTc Int : 405 ms Normal sinus rhythm Nonspecific T wave abnormality Abnormal ECG Confirmed by GOSIA RUSHING, JOLLY ([id number]), online editor AYANNA LORENZO ([id number]) on 09/12/2022 10:16:34 AM Referred By: SONA Confirmed By:JOLLY ELISE MD
--- NOTE | 2022-09-09 15:22 | ECHOD_ITS ---
Reason For Study: Chest Pain Procedure This was a 2D Doppler, Color Flow transthoracic echocardiogram. Exam performed portable in patient room. Left Ventricle Normal LV size. Left ventricular systolic function is normal. The estimated ejection fraction is 65 %. Stage 1 diastolic dysfunction. No regional wall motion abnormalities noted. Right Ventricle Normal RV size. Normal systolic function. Atria Normal left atrium. Normal right atrium. Mitral Valve Mild focal mitral valve calcification. Tricuspid Valve Normal tricuspid valve. Mild (1+) tricuspid valve insufficiency. Pulmonary artery systolic pressure is 38 mmHg. Aortic Valve Normal aortic valve. Trisinus/trileaflet aortic valve. Pulmonic Valve Normal pulmonic valve. Great Vessels Normal aortic root. The pulmonary artery is normal size. Normal inferior vena cava. Pericardium/Pleural No pericardial effusion. MMode/2D Measurements & Calculations LVIDd: 5.4 cm IVSd: 1.2 cm Ao root diam: 3.5 cm LVIDs: 3.7 cm LVPWd: 1.1 cm RVDd: 3.4 cm FS: 31.5 % LAV(MOD-bp): 61.0 ml LVAd ap4: 26.2 cm2 SV(MOD-sp4): 51.4 ml LAV(MOD-bp) Indexed: 30.9 ml/m2 LVLd ap4: 7.5 cm LAV(MOD-sp2): 65.5 ml EDV(MOD-sp4): 75.0 ml LAV(MOD-sp4): 53.9 ml EDV(sp4-el): 78.3 ml LVAs ap4: 13.2 cm2 LVLs ap4: 6.2 cm ESV(MOD-sp4): 23.6 ml ESV(sp4-el): 24.1 ml EF(MOD-sp4): 68.6 % EF(sp4-el): 69.2 % SV(sp4-el): 54.2 ml LA A4 area: 19.1 cm2 LA dimension(2D): 4.0 cm RA A4 area: 13.0 cm2 Time Measurements MV dec time: 0.23 sec Doppler Measurements & Calculations MV E max kp: 77.8 cm/sec Lat Peak E' Kp: 5.0 cm/sec Med Peak E' Kp: 4.6 cm/sec MV A max kp: 80.8 cm/sec E/E' lat: 15.5 E/E' med: 16.8 MV E/A: 0.96 Ao V2 max: 158.0 cm/sec LV V1 max: 115.5 cm/sec MV dec slope: 342.0 cm/sec2 Ao max P.0 mmHg LV V1 max P.3 mmHg Ao V2 mean: 106.6 cm/sec Ao mean P.0 mmHg Ao V2 VTI: 37.3 cm PA V2 max: 88.1 cm/sec TR max kp: 289.6 cm/sec TR max P.5 mmHg ECHO/Echo Complete Interpretation Summary Normal LV size. Left ventricular systolic function is normal. The estimated ejection fraction is 65 %. Stage 1 diastolic dysfunction. Pulmonary artery systolic pressure is 38 mmHg. Ordering Physician: Daniella Murillo Referring Physician: Heladio Edwards Performed By: Carlota Calvo, JEROME, RVT
[2022-09-09] MEDS: Calcium Carbonate 500 MG Tablet 1000 MG PO (15:43)
[2022-09-09 15:59] LABS: Troponin-I HS 4 pg/mL (3.0-54.0)
[2022-09-09 16:10] LABS: Bedside Glucose 318 mg/dL (74-106)
[2022-09-09] MEDS: Pramipexole Di-HCl 1 MG Tablet PO (22:06)
[2022-09-09] MEDS: Atorvastatin Calcium 80 MG Tablet PO (22:07)
[2022-09-09] MEDS: Insulin Glargine-YFGN 100 UNIT/ML Pen 10 UNIT SC (22:07)
[2022-09-09] MEDS: Pramipexole Di-HCl 0.5 MG Tablet 1.5 MG PO (22:08)
[2022-09-09] MEDS: MELATONIN 10 MG TABLET PO (22:13)
[2022-09-09] MEDS: traZODone 100 MG Tablet PO (22:13)
[2022-09-09 22:40] LABS: Bedside Glucose 316 mg/dL (74-106)
[2022-09-10] VITALS (9 sets, daily range): BP systolic 131–150; BP diastolic 57–91; PULSE 56–77; RESP 17–20; TEMP 36.4–36.7; O2SAT 82–100
[2022-09-10 07:00] LABS: Absolute Lymphocyte Count 1.62 X10^3/uL (0.83-4.51); Absolute Neutrophil Count 6.3 X10^3/uL (2.0-7.7); Hematocrit 34.8 % (37-47); Hemoglobin 10.8 g/dL (12.0-15.0); Lymphocyte # 1.62 X10^3/ul (0.83-4.51); Lymphocyte % 18.1 % (19-41); Mean Corpuscular Hgb 26.9 pg (27.0-32.0); Mean Corpuscular Volume 86.6 fL (81-99); Mean Platelet Vol. 10.5 fl (6.2-12.0); Monocyte# 0.97 X10^3/uL; Monocyte% 10.8 % (0-10); NRBC Flagged by Analyzer 0 % (0-5); Neutrophil # 6.34 X10^3/uL (2.7-7.7); Neutrophil % 70.7 % (47-70); Platelet Count 254 K/mm3 (150-450); RBC Distribution Width CV 15.9 % (11.6-14.6); RBC Distribution Width SD 50.3 fl (35.1-43.9); Red Blood Count 4.02 M/mm3 (4.2-5.4)
[2022-09-10] MEDS: oxyCODONE 5 MG Tablet PO ×2 (07:01→21:45)
[2022-09-10 07:06] LABS: Bedside Glucose 134 mg/dL (74-106)
[2022-09-10 07:20] LABS: Anion Gap 4 (5-15); BUN 30 mg/dL (7-18); Calcium,Total 8.9 mg/dL (8.5-10.1); Chloride 104 mmol/L (98-107); Creatinine, Serum 0.68 mg/dL (0.55-1.02); EST Glomerular Filtration Rate 90 mL/min (>60); Est Glom Filt Rate - Afr Amer 108 mL/min (>60); Estimated Creatinine Clearance 41.45 ml/min; Glucose 155 mg/dL (74-106); Potassium 3.9 mmol/L (3.5-5.1); Sodium Level 139 mmol/L (136-145)
[2022-09-10] MEDS: Ipratropium/Albuterol Sulfate 3 ML AMPUL.NEB INHALATION ×2 (07:30→19:40)
[2022-09-10] MEDS: Budesonide Respules 0.5 MG/2 ML AMPUL.NEB. INHALATION ×2 (07:30→19:40)
--- NOTE | 2022-09-10 08:12 | NURSING ---
Assited into chair at this time. Walking spo2 done, see findings. Eating breakfast now.
[2022-09-10] MEDS: Calcium Carb/Vitamin D 1 TABLET Tablet PO ×2 (08:14→21:46)
[2022-09-10] MEDS: guaiFENesin 600 MG Tablet PO ×2 (08:14→21:46)
[2022-09-10] MEDS: predniSONE 20 MG Tablet 40 MG PO (08:14)
[2022-09-10] MEDS: APIXABAN 5 MG TABLET PO ×2 (08:14→21:46)
[2022-09-10] MEDS: Azithromycin 250 MG Tablet 500 MG PO (08:14)
[2022-09-10] MEDS: Varenicline 1 MG Tablet PO ×2 (08:15→21:46)
[2022-09-10] MEDS: Aspirin 81 MG TAB.CHEW PO (08:15)
[2022-09-10] MEDS: Sertraline 50 MG Tablet PO (08:15)
[2022-09-10] MEDS: glipiZIDE 5 MG Tablet PO (08:15)
[2022-09-10] MEDS: Furosemide 40 MG Tablet PO (08:15)
[2022-09-10] MEDS: Nystatin Powder 15gm Bottle 1 APPLIC TOPICAL ×2 (08:16→21:47)
--- NOTE | 2022-09-10 10:29 | PCM.PN.HOSP ---
Subjective Subjective Doing well, no issues overnight. She needed about 7 L to maintain her oxygen sats with ambulation Objective Data Objective Data Vital Signs: Vital Signs Temp Pulse Resp BP Pulse Ox O2 Del Method O2 Flow Rate 97.5 F L 77 17 140/57 H 98 Nasal Cannula 4 09/10/22 06:49 09/10/22 07:30 09/10/22 07:30 09/10/22 06:49 09/10/22 08:05 09/10/22 08:05 09/10/22 08:05 Oxygen Flow Rate (L/min) [ 6 AMBULATING with Oxygen #3] Oxygen Flow Rate (L/min) [ 5 AMBULATING with Oxygen #2] Oxygen Flow Rate (L/min) [ 4 AMBULATING with Oxygen #1] Oxygen Flow Rate (L/min) [At 3 REST with Oxygen] Oxygen Flow Rate (L/min) 4 Oxygen Delivery Method Nasal Cannula Weight: 210 lb 3.2 oz Body Mass Index (BMI) 37.2 Intake & Output: Intake and Output for Last 24 Hours 09/09/22 09/10/22 09/11/22 03:59 03:59 03:59 Intake Total 800 / 800 1330 / 1330 Balance 800 / 800 1330 / 1330 Lab / Micro Data Result Diagrams: 09/10/22 06:20 09/10/22 06:20 Labs: Laboratory Results - last 24 hr 09/09/22 11:40: POC Glucose 375 H 09/09/22 15:30: Troponin I High Sens 4 09/09/22 15:52: POC Glucose 318 H 09/09/22 22:04: POC Glucose 316 H 09/10/22 06:20: WBC 9.0, RBC 4.02 L, Hgb 10.8 L, Hct 34.8 L, MCV 86.6, MCH 26.9 L, MCHC 31.0 L, RDW Std Deviation 50.3 H, RDW Coeff of Doretha 15.9 H, Plt Count 254, MPV 10.5, Immature Gran % (Auto) 0.400, Neut % (Auto) 70.7 H, Lymph % (Auto) 18.1 L, [place] % (Auto) 10.8 H, Eos % (Auto) 0.0, Baso % (Auto) 0.0, Absolute Neuts (auto) 6.3, Absolute Lymphs (auto) 1.62, Nucleated RBC % 0 09/10/22 06:20: Sodium 139, Potassium 3.9, Chloride 104, Carbon Dioxide 31.0, Anion Gap 4 L, BUN 30 H, Creatinine 0.68, Estim Creat Clear Calc 41.45, Est GFR (MDRD) Af Amer 108, Est GFR (MDRD) Non-Af 90, BUN/Creatinine Ratio 44.0 H, Glucose 155 H, Calcium 8.9 09/10/22 06:41: POC Glucose 134 H Micro: Microbiology 09/08/22 17:06 Mucosa - Nose Respiratory Panel (PCR) - Final 09/07/22 22:35 Nasal Secretion SARS-CoV-2 & FLU Antigen (Rapid) - Final Physical Exam Narrative General: Alert, Oriented x3, Cooperative, No apparent distress HEENT: Atraumatic, PERRLA, EOMI, Normocephalic Oral: Moist Mucosa Neck: Supple, No JVD Lungs: Diminished, Normal air movement, No rhonchi, bilateral wheeze, No rales Cardiovascular: Regular rate, Regular Rhythm, Normal S1, Normal S2, No murmurs Abdomen: Soft, Non Tender, Non-Distended, No Hepato-splenomegaly Extremities: No edema, Capillary Refill Less than 3 Seconds Skin: No rashes, No breakdown Musculoskeletal: No Tenderness to Palpation of Joints or Extremities Neurological: Cranial nerves II-XII grossly intact, Motor Exam 5/5 strength throughout, Sensory exam intact to light touch and pain Psych/Mental Status: Normal Affect, Appropriate Assessment & Plan Assessment/Plan (1) Acute exacerbation of chronic obstructive pulmonary disease: PLAN: Plan 1.? Acute COPD exacerbation with acute on chronic hypoxic respiratory failure/tobacco dependence/history of lung cancer/SHANA ? She wears about 2-1/2 L of oxygen nasal cannula at home, currently on 4 L, and she needed 7 L with ambulation after 24 hours of treatment her work of breathing is back to baseline except for when she ambulates ? She also wears trilogy at night which she has been continuing to wear. ? Discussed tobacco cessation ? She is being monitored as an outpatient for her lung cancer ? Continue with steroids and azithromycin 2.? CAD/ischemic cardiomyopathy/HTN/HLD ?We will continue to monitor her blood pressure, can continue with her home blood pressure medications ? Continue with her Lipitor ? Continue with her aspirin and Plavix as well as her daily Lasix 3.? DM2 ? Continue with Accu-Cheks and sliding scale insulin ? We will monitor and make adjustments as necessary 4.? Anxiety/depression/restless leg syndrome ? Stable ? Continue with her home medications DVT: Yvrose Charges/Coding Visit Charges Inpatient E&M: 44729 Subs Hosp L2
[2022-09-10] MEDS: Losartan Potassium 50 MG Tablet PO (11:17)
[2022-09-10] MEDS: Insulin Lispro 100 UNIT/ML INSULN.PEN SC ×3 (11:17→21:46)
--- NOTE | 2022-09-10 11:47 | CASEMGMT ---
Addendum entered by Jazlyn Aceves 09/10/22 13:57: Social Work Return call from Allen at [facility] and they are able to accept pt. Precert to be started at this time. Plan: [facility] pending MEHDI Cohen Original Note: Social Work SW reviewed therapy notes and SNF is recommended. SW met with pt and introduced self and role of SW. SW discussed discharge plan with pt. Pt does live in an apartment alone. Pt waivering back and forth between SNF and home health but deciding that last time she was at SNF she found it very helpful in regaining strength and returning home. Pt choosing SNF placement for post acute care. A list of SNF providers including quality and resource use data and consistent with the patient?s preferred geographic region, medical needs, and insurance network were provided from the [facility] Guide. Pt was previously at [facility] and would like to return there. Phone call to Allen at [facility] and they confirms they are in network and have beds available. Referral faxed to [facility] per Allen's request. Allen updated that precert can be started if pt accepted. Plan: [facility], pending acceptance and MEHDI Cohen
[2022-09-10 12:00] LABS: Bedside Glucose 164 mg/dL (74-106)
--- NOTE | 2022-09-10 14:02 | CASEMGMT ---
Social Work Pt has services through [facility] and Nanda Salazar is her director of medicare. RESHMA left with Nanda regarding pt admission and discharge plan. VANESA met with pt and informed that [facility] can accept and precert is pending. MEHDI Cabral
--- NOTE | 2022-09-10 15:48 | CHAPLAIN ---
Type of Pastoral Visit _x__ Initial Visit ___ Follow-up Visit ___ On-call Visit ___ General Patient Visit ___ Spiritual Assessment ___ Family Conference ___ Bereavement ___ Rapid Response ___ Code Blue ___ Other (describe below) Pastoral Care Referral From _x__ Patient ___ Family ___ Nurse ___ Physician ___ Legal Adviser ___ Bar Machine Operator Multiple Spindle ___ Other (describe below) Sacrament/Intervention _x__ Active listening ___ Anointing ___ Yarsanism ___ Bereavement ___ Communion _x__ Madie exploration ___ ___ Life review _x__ Prayer ___ Reconciliation ___ Sacrament of Sick _x__ Supportive presence ___ Wedding ___ Other (describe below) Pastoral Comments patient is very welcoming and had specific questions about spiritual matters and peace with God; pt has been active in denominational but not in recent years so affirmation of madie is stated to be important for her at this time; pt desired prayer and supportive discussion of madie; pt was given some reading material and suggestions for music to research for her enjoyment as well;
[2022-09-10 16:55] LABS: Bedside Glucose 261 mg/dL (74-106)
[2022-09-10] MEDS: traZODone 100 MG Tablet PO (21:45)
[2022-09-10] MEDS: Pramipexole Di-HCl 0.5 MG Tablet 1.5 MG PO (21:45)
[2022-09-10] MEDS: Atorvastatin Calcium 80 MG Tablet PO (21:46)
[2022-09-10] MEDS: Pramipexole Di-HCl 1 MG Tablet PO (21:46)
[2022-09-10] MEDS: MELATONIN 10 MG TABLET PO (21:46)
[2022-09-10] MEDS: Insulin Glargine-YFGN 100 UNIT/ML Pen 10 UNIT SC (21:47)
[2022-09-10 22:15] LABS: Bedside Glucose 254 mg/dL (74-106)
[2022-09-11] VITALS (9 sets, daily range): BP systolic 129–169; BP diastolic 63–81; PULSE 48–81; RESP 20–24; TEMP 36.5–37.1; O2SAT 84–97
[2022-09-11 04:08] LABS: Absolute Neutrophil Count 5.6 X10^3/uL (2.0-7.7); Basophil# 0.01 X10^3/uL; Basophil% 0.1 % (0-1); Eosinophil# 0.01 X10^3/uL; Eosinophils% 0.1 % (0-5); Lymphocyte % 24.3 % (19-41); Mean Corp Hgb Conc 31.4 g/dL (32-36); Mean Corpuscular Hgb 27.2 pg (27.0-32.0); Mean Corpuscular Volume 86.6 fL (81-99); Mean Platelet Vol. 10.5 fl (6.2-12.0); Monocyte# 0.82 X10^3/uL; Monocyte% 9.5 % (0-10); NRBC Flagged by Analyzer 0 % (0-5); Neutrophil # 5.64 X10^3/uL (2.7-7.7); Neutrophil % 65.4 % (47-70); Platelet Count 267 K/mm3 (150-450); RBC Distribution Width CV 15.8 % (11.6-14.6); RBC Distribution Width SD 49.7 fl (35.1-43.9); Red Blood Count 4.04 M/mm3 (4.2-5.4); White Blood Count 8.6 K/mm3 (4.4-11.0)
[2022-09-11 04:32] LABS: Anion Gap 7 (5-15); BUN 30 mg/dL (7-18); BUN/Creat Ratio 42.8 RATIO (10-20); Calcium,Total 8.9 mg/dL (8.5-10.1); Chloride 101 mmol/L (98-107); EST Glomerular Filtration Rate 87 mL/min (>60); Est Glom Filt Rate - Afr Amer 105 mL/min (>60); Estimated Creatinine Clearance 41.45 ml/min; Glucose 135 mg/dL (74-106); Potassium 3.7 mmol/L (3.5-5.1); Sodium Level 138 mmol/L (136-145)
[2022-09-11] MEDS: oxyCODONE 5 MG Tablet PO ×2 (06:49→15:09)
[2022-09-11 07:10] LABS: Bedside Glucose 105 mg/dL (74-106)
[2022-09-11] MEDS: Calcium Carb/Vitamin D 1 TABLET Tablet PO (07:47)
[2022-09-11] MEDS: Azithromycin 250 MG Tablet 500 MG PO (07:47)
[2022-09-11] MEDS: guaiFENesin 600 MG Tablet PO (07:48)
[2022-09-11] MEDS: Furosemide 40 MG Tablet PO (07:48)
[2022-09-11] MEDS: Varenicline 1 MG Tablet PO (07:48)
[2022-09-11] MEDS: Sertraline 50 MG Tablet PO (07:48)
[2022-09-11] MEDS: glipiZIDE 5 MG Tablet PO (07:48)
[2022-09-11] MEDS: predniSONE 20 MG Tablet 40 MG PO (07:48)
[2022-09-11] MEDS: Aspirin 81 MG TAB.CHEW PO (07:48)
[2022-09-11] MEDS: APIXABAN 5 MG TABLET PO (07:49)
[2022-09-11] MEDS: Budesonide Respules 0.5 MG/2 ML AMPUL.NEB. INHALATION (07:57)
[2022-09-11] MEDS: Ipratropium/Albuterol Sulfate 3 ML AMPUL.NEB INHALATION ×2 (07:57→13:23)
--- NOTE | 2022-09-11 09:21 | CASEMGMT ---
Addendum entered by Ayanna Linn 09/11/22 11:59: Social Work SW spoke w/Joann at [facility], they have precert. SW texted physician, let pt and RN know. Pt states her daughter will take her over, SW will let her know what time once SW hears back from the physician. COVID test needed also. MONIQUE Granado Original Note: Social Work SW called [facility], spoke w/furniture removalist's assistant Joann. Precert is still pending. SW will check w/Joann again later today about precert. MONIQUE Granado
--- NOTE | 2022-09-11 09:29 | NURSING ---
Dr. Lagos office called and asked that pt be notified her new pt office visit for 09/12 will be cancelled since she is in hospital. Pt is to call office when feeling better to reschedule. Pt notified.
[2022-09-11] MEDS: Losartan Potassium 50 MG Tablet PO (11:53)
[2022-09-11] MEDS: Insulin Lispro 100 UNIT/ML INSULN.PEN SC (11:54)
[2022-09-11 12:20] LABS: Bedside Glucose 178 mg/dL (74-106)
--- NOTE | 2022-09-11 12:22 | TREXTCAR_ITS ---
Diet Diet Order/Speech Therapy: 09/08/22 03:07 Diet: Consistent Carb - Calorie Controlled Food consistency:: Regular Liquid Consistency:: Regular/Thin Dietary Modifications:: Cardiac / Heart Healthy How many daily calories?: 1600 calorie Routine Orders/Code Status Routine Lab Work: CBC and BMP Code Status: Full Code Problem/Diagnosis (1) Acute exacerbation of chronic obstructive pulmonary disease: Status: Chronic Code(s): J44.1 - Chronic obstructive pulmonary disease with (acute) exacerbation Plan 1.? Acute COPD exacerbation with acute on chronic hypoxic respiratory failure/tobacco dependence/history of lung cancer/SHANA ? She wears about 2-1/2 L of oxygen nasal cannula at home, currently on 4 L, and she needed 7 L with ambulation after 24 hours of treatment her work of breathing is back to baseline except for when she ambulates ? She also wears trilogy at night which she has been continuing to wear. ? Discussed tobacco cessation ? She is being monitored as an outpatient for her lung cancer ? Continue with steroids and azithromycin 2.? CAD/ischemic cardiomyopathy/HTN/HLD ?We will continue to monitor her blood pressure, can continue with her home blood pressure medications ? Continue with her Lipitor ? Continue with her aspirin and Plavix as well as her daily Lasix 3.? DM2 ? Continue with Accu-Cheks and sliding scale insulin ? We will monitor and make adjustments as necessary 4.? Anxiety/depression/restless leg syndrome ? Stable ? Continue with her home medications DVT: Lovenox Allergies/Procedures Done in Hospital Allergies gabapentin [From Neurontin] Allergy (Unknown, Verified 09/07/22 22:22) mental status change bupropion HCl [From Wellbutrin] Allergy (Verified 09/07/22 22:22) Hives moxifloxacin HCl [From Avelox] Allergy (Verified 09/07/22 22:22) Hives Procedures: None Type of Care/Length of Stay Estimated LOS: Convalescent Care Less Than 30 days Type of Care Needed: Skilled Rehab Potential: Good Prognosis: Good Additional Orders/Day of Discharge Day of Discharge: 09/11/22 Dietary and Speech Recommendations Dietitian Recommendations/Changes: Will change diet to 1600 leeroy Cardiac d/t pmhx and BMI Available if diet education desired by pt Discharge Plan Admission Admit Date/Time: 09/09/22 12:03 Attending Provider: Amauri Patterson Primary Care Provider: Heladio Edwards Consulting Providers: Leela Keenan ; Daniella Murillo Discharge Orders/Prescriptions Prescriptions: New prednisone 10 mg tablet 40 mg PO BREAKFAST Qty: 0 0RF Rx Instructions: 4 tablets daily for 3 days then 3 tablets daily for 3 days then 2 tablets daily for 3 days then 1 tablet daily for 3 days then half tablet daily for 4 days glipizide 5 mg Tablet 5 mg PO DAILYCM Qty: 0 0RF Continued varenicline 1 mg tablet 1 mg PO BID Trelegy Ellipta 100-62.5-25 mcg blister with device 1 inh inhalation DAILY azithromycin 250 mg tablet 250 mg PO DAILY Rx Instructions: start on day 2 of therapy losartan 50 mg tablet 50 mg PO DAILY calcium carbonate-vitamin D3 250 mg-3.125 mcg (125 unit) tablet 1 tab PO BID ipratropium-albuterol 0.5 mg-3 mg(2.5 mg base)/3 mL solution for nebulization 3 ml inhalation Q4H PRN (Reason: breath) albuterol sulfate 2.5 mg /3 mL (0.083 %) solution for nebulization 2.5 mg inhalation Q4H PRN (Reason: Shortness Of Breath) trazodone 100 MG tablet 100 mg PO QHS Label Comments: sleep pramipexole 1.5 MG tablet 1.5 mg PO QHS Label Comments: parkinson's disease/restless legs ropinirole 2 MG tablet 2 mg PO QHS Label Comments: parkinson's disease/restless leg furosemide 20 mg tablet 40 mg PO DAILY atorvastatin 80 mg tablet 80 mg PO QHS Label Comments: Take 1 tablet by mouth at bedtime sertraline 50 mg tablet 50 mg PO DAILY Label Comments: TAKE ONE TABLET BY MOUTH DAILY albuterol sulfate 90 mcg/actuation HFA aerosol inhaler 2 puff inhalation Q4H PRN (Reason: shortness of breath or wheezing) Qty: 8.5 0RF (DME) lancets [Lancets,Ultra Thin] Misc See Rx Instructions .Route Qty: 200 0RF Rx Instructions: As directed aspirin 81 mg tablet,chewable 81 mg PO BREAKFAST oxycodone 5 mg Tablet 5 mg PO Q6H insulin glargine 100 unit/mL Cartridge SUBCUT Rx Instructions: on 150 sliding scale before meals ibandronate [Boniva] 150 mg Tablet 150 mg PO QMONTH Rx Instructions: takes 15 of q month Eliquis 5 mg tablet 5 mg PO BID Qty: 60 11RF Referrals / Follow Up: Gurinder Kim MD [Med Staff - Active Staff] - Within 3 Months Heladio Edwards MD [Primary Care Provider] - Within 1 Month Disposition Disposition (needs filled in before D/C Order can be placed): [facility]
--- NOTE | 2022-09-11 12:32 | DS.PCM_ITS ---
Providers Date of Admission: 09/09/22 Primary Care Physician: Dr. Heladio Edwards MD Reason For Visit: COPD EXACERBATION Diagnosis Discharge Diagnosis (1) Acute exacerbation of chronic obstructive pulmonary disease: Status: Chronic Code(s): J44.1 - Chronic obstructive pulmonary disease with (acute) exacerbation Plan 1.? Acute COPD exacerbation with acute on chronic hypoxic respiratory failure/tobacco dependence/history of lung cancer/SHANA ? She wears about 2-1/2 L of oxygen nasal cannula at home, currently on 4 L, and she needed 7 L with ambulation after 24 hours of treatment her work of breathing is back to baseline except for when she ambulates ? She also wears trilogy at night which she has been continuing to wear. ? Discussed tobacco cessation ? She is being monitored as an outpatient for her lung cancer ? Continue with steroids and azithromycin 2.? CAD/ischemic cardiomyopathy/HTN/HLD ?We will continue to monitor her blood pressure, can continue with her home blood pressure medications ? Continue with her Lipitor ? Continue with her aspirin and Plavix as well as her daily Lasix 3.? DM2 ? Continue with Accu-Cheks and sliding scale insulin ? We will monitor and make adjustments as necessary 4.? Anxiety/depression/restless leg syndrome ? Stable ? Continue with her home medications DVT: Lovenox Medications at Discharge Home Medications pramipexole 1.5 mg tablet 1.5 mg PO QHS restless legs 06/12/14 trazodone 100 mg tablet 100 mg PO QHS sleep 06/12/14 ropinirole 2 mg tablet 2 mg PO QHS restless legs 10/20/15 atorvastatin 80 mg tablet 80 mg PO QHS cholesterol 10/20/21 sertraline 50 mg tablet 50 mg PO DAILY anxiety 02/25/22 albuterol sulfate 90 mcg/actuation aerosol inhaler 2 puff inhalation Q4H PRN shortness of breath or wheezing #8.5 grams 02/26/22 lancets (Lancets,Ultra Thin) #200 ea 02/26/22 aspirin 81 mg chewable tablet 81 mg PO BREAKFAST heart health 04/25/22 albuterol sulfate 2.5 mg/3 mL (0.083 %) solution for nebulization 2.5 mg inhalation Q4H PRN Shortness Of Breath 08/24/22 apixaban 5 mg tablet (Eliquis) 5 mg PO BID #60 tabs 08/24/22 azithromycin 250 mg tablet 250 mg PO DAILY 08/24/22 calcium carbonate 250 mg-vitamin D3 3.125 mcg (125 unit) tablet 1 tab PO BID 08/24/22 fluticasone fur. 100 mcg-umeclid 62.5 mcg-vilant 25 mcg inhalat.powder (Trelegy Ellipta) 1 inh inhalation DAILY 08/24/22 furosemide 20 mg tablet 40 mg PO DAILY water pill 08/24/22 ipratropium 0.5 mg-albuterol 3 mg (2.5 mg base)/3 mL nebulization soln 3 ml inhalation Q4H PRN breath 08/24/22 losartan 50 mg tablet 50 mg PO DAILY 08/24/22 varenicline 1 mg tablet 1 mg PO BID 08/24/22 ibandronate 150 mg tablet (Boniva) 150 mg PO QMONTH 09/08/22 insulin glargine 100 unit/mL subcutaneous cartridge unit subcut 09/08/22 oxycodone 5 mg tablet 5 mg PO Q6H pain 09/08/22 glipizide 5 mg tablet 5 mg PO DAILYCM #0 tabs 09/11/22 prednisone 10 mg tablet 40 mg PO BREAKFAST #0 tabs 09/11/22 Hospital Course Operations None Procedures 2-D Echocardiogram Summary of Care Provided Minutes Spent on Discharge: 36 Hospital Course: Per HPI: AVE ANNE, is a 71 F with a past medical history as outlined including COPD and chronic respiratory failure on 4 L of oxygen at home who presents via the ED on 08/29/2022 with a complaint of shortness of breath that been going on for about a week.? She had assisted diuresis and echo which was nonproductive.? Her shortness of breath was not improving despite her using her inhalers.? She admits to compliance with her oxygen.? She denies any fever or chills, nausea vomiting or any other symptoms.? She says she is mostly quit smoking but smokes and also going here and then.? Review of systems otherwise negative. Vitals in the ED were blood pressure 111/47, pulse rate of 83 respiratory of 19.? She was saturating at 98% on 4L of oxygen.? CBC showed WBC of 7.2 with hemoglobin of 12.1 and platelets of 219.? Chemistry was significant for sodium of 133 and potassium of 3.4.? COVID and influenza screen were negative and chest x-ray showed no acute cardiopulmonary process.? Patient felt quite weak and renetta ilitated in the ED she has been admitted to be managed for acute COPD exacerbation. Hospital Course: 1.? Acute COPD exacerbation with acute on chronic hypoxic respiratory mazin lure/tobacco dependence/history of lung cancer/SHANA ? She wears about 4 L of oxygen nasal cannula at home, currently on 4 L, and she needed 7 L with ambulation yesterday, currently she is able to ambulate with 4 L nasal cannula ? She also wears trilogy at night which she has been continuing to wear. ? Discussed tobacco cessation ? She is being monitored as an outpatient for her lung cancer ? Continue with steroids and will continue with her home azithromycin 250 mg daily she has received 500 mg of azithromycin daily while here. Also do a slow steroid taper while at the senior living and I do recommend that she follow-up with pulmonology as an outpatient once discharged from SNF. She feels back to baseline and I discussed with her the plan for discharge today and she expressed understanding of the risk benefits of going to the senior living and would like to go today. 2.? CAD/ischemic cardiomyopathy/HTN/HLD ?We will continue to monitor her blood pressure, can continue with her home bloo d pressure medications ? Continue with her Lipitor ? Continue with her aspirin and Plavix as well as her daily Lasix ? Echo with a normal EF of 65% and stage I diastolic dysfunction, pulmonary artery systolic pressure of 38 mmHg, this was obtained for chest pain which has resolved 3.? DM2 ? Continue with Accu-Cheks and sliding scale insulin ? We will monitor and make adjustments as necessary ? We will continue with glipizide on discharge and would recommend monitoring of her blood sugar while on the steroids, once her steroid course is would monitor and make adjustments as necessary in the outpatient setting 4.? Anxiety/depression/restless leg syndrome ? Stable ? Continue with her home medications Physical Exam Narrative General: Alert, Oriented x3, Cooperative, No apparent distress HEENT: Atraumatic, PERRLA, EOMI, Normocephalic Oral: Moist Mucosa Neck: Supple, No JVD Lungs: Diminished, Normal air movement, No rhonchi, scattered bilateral wheeze, No rales Cardiovascular: Regular rate, Regular Rhythm, Normal S1, Normal S2, No murmurs Abdomen: Soft, Non Tender, Non-Distended, No Hepato-splenomegaly Extremities: No edema, Capillary Refill Less than 3 Seconds Skin: No rashes, No breakdown Musculoskeletal: No Tenderness to Palpation of Joints or Extremities Neurological: Cranial nerves II-XII grossly intact, Motor Exam 5/5 strength throughout, Sensory exam intact to light touch and pain Psych/Mental Status: Normal Affect, Appropriate Weight / BMI Weight Weight: 210 lb 3.2 oz Body Mass Index (BMI) 37.2 ABG / Lab / Microbiology Data Result Diagrams: 09/11/22 03:48 09/11/22 03:48 Laboratory: Laboratory Results - last 24 hr 09/10/22 16:19: POC Glucose 261 H 09/10/22 21:30: POC Glucose 254 H 09/11/22 03:48: WBC 8.6, RBC 4.04 L, Hgb 11.0 L, Hct 35.0 L, MCV 86.6, MCH 27.2, MCHC 31.4 L, RDW Std Deviation 49.7 H, RDW Coeff of Doretha 15.8 H, Plt Count 267, MPV 10.5, Immature Gran % (Auto) 0.600, Neut % (Auto) 65.4, Lymph % (Auto) 24.3, [place] % (Auto) 9.5, Eos % (Auto) 0.1, Baso % (Auto) 0.1, Absolute Neuts (auto) 5.6, Absolute Lymphs (auto) 2.10, Nucleated RBC % 0 09/11/22 03:48: Sodium 138, Potassium 3.7, Chloride 101, Carbon Dioxide 30.0, Anion Gap 7, BUN 30 H, Creatinine 0.70, Estim Creat Clear Calc 41.45, Est GFR (MDRD) Af Amer 105, Est GFR (MDRD) Non-Af 87, BUN/Creatinine Ratio 42.8 H, Glu cose 135 H, Calcium 8.9 09/11/22 06:49: POC Glucose 105 09/11/22 11:52: POC Glucose 178 H Microbiology: Microbiology 09/08/22 17:06 Mucosa - Nose Respiratory Panel (PCR) - Final 09/07/22 22:35 Nasal Secretion SARS-CoV-2 & FLU Antigen (Rapid) - Final Radiography Diagnostic Testing: Radiology Impression Echocardiogram 01/15/23 15:22 Interpretation Summary Normal LV size. Left ventricular systolic function is normal. The estimated ejection fraction is 65 %. Stage 1 diastolic dysfunction. Pulmonary artery systolic pressure is 38 mmHg. Ordering Physician: Daniella Murillo Referring Physician: Heladio Edwards Performed By: Carlota Calvo RDCS, RVT Meaningful Use Info Meaningful Use Diagnoses (Choose all that apply): None applicable Discharge Plan Admission Admit Date/Time: 09/09/22 12:03 Attending Provider: Amauri Patterson Primary Care Provider: Heladio Edwards Consulting Providers: Leela Keenan ; Daniella Murillo Discharge Orders/Prescriptions Prescriptions: New prednisone 10 mg tablet 40 mg PO BREAKFAST Qty: 0 0RF Rx Instructions: 4 tablets daily for 3 days then 3 tablets daily for 3 days then 2 tablets daily for 3 days then 1 tablet daily for 3 days then half tablet daily for 4 days glipizide 5 mg Tablet 5 mg PO DAILYCM Qty: 0 0RF Continued varenicline 1 mg tablet 1 mg PO BID Trelegy Ellipta 100-62.5-25 mcg blister with device 1 inh inhalation DAILY azithromycin 250 mg tablet 250 mg PO DAILY Rx Instructions: start on day 2 of therapy losartan 50 mg tablet 50 mg PO DAILY calcium carbonate-vitamin D3 250 mg-3.125 mcg (125 unit) tablet 1 tab PO BID ipratropium-albuterol 0.5 mg-3 mg(2.5 mg base)/3 mL solution for nebulization 3 ml inhalation Q4H PRN (Reason: breath) albuterol sulfate 2.5 mg /3 mL (0.083 %) solution for nebulization 2.5 mg inhalation Q4H PRN (Reason: Shortness Of Breath) trazodone 100 MG tablet 100 mg PO QHS Label Comments: sleep pramipexole 1.5 MG tablet 1.5 mg PO QHS Label Comments: parkinson's disease/restless legs ropinirole 2 MG tablet 2 mg PO QHS Label Comments: parkinson's disease/restless leg furosemide 20 mg tablet 40 mg PO DAILY atorvastatin 80 mg tablet 80 mg PO QHS Label Comments: Take 1 tablet by mouth at bedtime sertraline 50 mg tablet 50 mg PO DAILY Label Comments: TAKE ONE TABLET BY MOUTH DAILY albuterol sulfate 90 mcg/actuation HFA aerosol inhaler 2 puff inhalation Q4H PRN (Reason: shortness of breath or wheezing) Qty: 8.5 0RF (DME) lancets [Lancets,Ultra Thin] Misc See Rx Instructions .Route Qty: 200 0RF Rx Instructions: As directed aspirin 81 mg tablet,chewable 81 mg PO BREAKFAST oxycodone 5 mg Tablet 5 mg PO Q6H insulin glargine 100 unit/mL Cartridge SUBCUT Rx Instructions: on 150 sliding scale before meals ibandronate [Boniva] 150 mg Tablet 150 mg PO QMONTH Rx Instructions: takes 15 of q month Eliquis 5 mg tablet 5 mg PO BID Qty: 60 11RF Referrals / Follow Up: Gurinder Kim MD [Med Staff - Active Staff] - Within 3 Months Heladio Edwards MD [Primary Care Provider] - Within 1 Month Disposition Disposition (needs filled in before D/C Order can be placed): Nursing Home Facility Charges/Coding Visit Charges Inpatient E&M: 82278 Disch Hosp >30min
--- NOTE | 2022-09-11 12:50 | NURSING ---
Covid test sent to Lab at this time
--- NOTE | 2022-09-11 13:05 | CASEMGMT ---
Social Work Pt is ready for discharge. VANESA completed hospital exemption, faxed this along with all discharge instructions to Sandra, sent the information via [facility] as well. Daughter to bring pt over at 6pm as per pt. VANESA let Joann at [facility] know. Pt to go to [facility] skilled later today. MONIQUE Granado
--- NOTE | 2022-09-11 20:40 | PCM.PN.BLA ---
Progress Note Reported that patient did not get her narcotic prescription on discharge. Prescription according to [facility] pharmacy ([id number]). Prescription was oxycodone 5 mg tablet p.o. every 6 hours as needed for generalized pain. Prescription written for 3 days and pharmacist to dispense 12 tablets.
--- NOTE | 2022-09-11 20:47 | CM.ED ---
VANESA received call that [facility] did not get script for oxycodone. VANESA called Anjelica at [facility] and she said that they got the order regarding patient's oxycodone but need the signed script. Anjelica said that the hospital forgot to send the packet. VANESA spoke to Fouzia Andrade regarding the situation. SW reviewed the patient's chart on the floor and patients script was not in the hard copy chart. VANESA spoke to Dr. Cunha (Hospitalist) and he declined to sign script for patient as it was not his patient. VANESA called Anjelica at [facility] and she said that she called Dr. Thornton and Dr. Thornton said that the hospital has to fix the situation. VANESA updated Fouzia Andrade. VANESA contacted MD Matthews regarding the situation. VANESA called Anayeli at [facility] and she said that the hospital could call in the prescription to their pharmacy, [facility] or a hard copy of the script could be faxed to her at [facility] at [phone]. VANESA updated Dax Mcnamarapressure control supervisor. She spoke to MD Dr. Cunha and he agreed to call in script. Script was called into [facility] at [phone]. SW called Anayeli at [facility] and she advised that the packet had come with the patient. Anayeli was advised that MD had called in prescription for patient. No other issues or concerns. VANESA updated Fouzia BUTLER
== END 2022-09-11 15:50 | disposition skilled nursing facility (03) | DRG 190 ==
LOC: ED 09-08 01:46 → MS2 09-08 02:44
PROVIDERS: Internal Medicine; Admitting Provider Student in an Organized Health Care Education/Training Program; Emergency Provider Emergency Medicine; PCP Family Medicine; Visit Provider Family Medicine
DX: J44.1 Chronic obstructive pulmonary disease with (acute) exacerbation (principal); J96.21 Acute and chronic respiratory failure with hypoxia; I50.30 Unspecified diastolic (congestive) heart failure; I11.0 Hypertensive heart disease with heart failure; E11.9 Type 2 diabetes mellitus without complications; Z79.4 Long term (current) use of insulin; G25.81 Restless legs syndrome; E78.5 Hyperlipidemia, unspecified; G47.33 Obstructive sleep apnea (adult) (pediatric); I25.10 Atherosclerotic heart disease of native coronary artery without angina pectoris; I25.5 Ischemic cardiomyopathy; F41.9 Anxiety disorder, unspecified; F17.210 Nicotine dependence, cigarettes, uncomplicated; I25.2 Old myocardial infarction; F32.A Depression, unspecified; G89.29 Other chronic pain; R07.9 Chest pain, unspecified; Z95.5 Presence of coronary angioplasty implant and graft; Z60.2 Problems related to living alone; Z71.6 Tobacco abuse counseling; Z99.81 Dependence on supplemental oxygen; Z79.02 Long term (current) use of antithrombotics/antiplatelets; Z79.82 Long term (current) use of aspirin; Z79.84 Long term (current) use of oral hypoglycemic drugs; Z85.118 Personal history of other malignant neoplasm of bronchus and lung
CPT/HCPCS: 36415; 36600; 71045; 80048; 82803; 82962; 83735; 83880; 84484; 85025; 87426; 87428; 87633; 93005; 93306; 94640; 97110; 97116; 97161; 97165; 97530; 97535; 99252; 99285; A4216; G0463

== ENCOUNTER 2022-09-26 18:33 | Emergency (ER) | payer MEDICARE, MEDICAID, SELFPAY ==
[2022-09-26 18:34] VITALS: BP 159/67; PULSE 86; TEMP 35.9; O2SAT 100; BMI 39.8
[2022-09-26 18:38] VITALS: BP 159/67; PULSE 82; RESP 22; TEMP 35.9; O2SAT 100
[2022-09-26 18:40] VITALS: O2SAT 100
--- NOTE | 2022-09-26 19:16 | RAD_ITS ---
EXAM: XR CERVICAL SPINE, 2 OR 3 VIEWS CLINICAL INDICATION: NECK PAIN TECHNIQUE: Frontal and lateral views of the cervical spine. This report was created using [employer] report generation technology. COMPARISON: None. FINDINGS: VERTEBRAE: Unremarkable. Preserved vertebral body height. No acute fracture. No spondylolisthesis. Preservation of the normal cervical lordosis. No significant facet arthropathy. DISC SPACES: Unremarkable. Disc spaces are maintained. SOFT TISSUES: Unremarkable. No prevertebral soft tissue widening. LUNG APICES: Clear. RAD/Cerv Spine 2 or 3 Views IMPRESSION: No evidence of acute fracture or spondylolisthesis. Electronically Signed: Kd Bone MD at 20:18 EST ,
--- NOTE | 2022-09-26 19:16 | EKG12_ITS ---
Test Reason : DYSRHYTHMIA Blood Pressure : / mmHG Vent. Rate : 080 BPM Atrial Rate : 080 BPM P-R Int : 188 ms QRS Dur : 086 ms QT Int : 376 ms P-R-T Axes : 040 055 066 degrees QTc Int : 433 ms Normal sinus rhythm Nonspecific T wave abnormality Abnormal ECG Confirmed by GINO RUSHING, JANNETTE ([id number]), technical writer and editor AYANNA LORENZO ([id number]) on 09/28/2022 8:56:48 AM Referred By: EDDIE Confirmed By:KAMI CHRISTIAN MD
--- NOTE | 2022-09-26 19:17 | EDS_ITS ---
HPI History of Present Illness Chief Complaint: Shortness of Breath Narrative Narrative: 71-year-old female presenting with left-sided neck pain and left shoulder pain. States this is ongoing for 4 days. She states its not in her chest. She states she is chronically short of breath but she does not have any new shortness of breath. She has a history of COPD. She wears oxygen at baseline. Is currently wearing 4 L which is her baseline. Patient states she has not a cough, fever. She has tried alternating ice and heat. This is not working. Patient states the neck is a new issue but the shoulder pain is fairly chronic. [facility] Medical History Asthma Atherosclerotic heart disease of [place] coronary artery without angina pectoris Bilateral pulmonary embolism BiPAP (biphasic positive airway pressure) dependence Chronic pain Chronic respiratory failure with hypoxia Compression fracture of body of thoracic vertebra Congestive heart failure (CHF) DVT (deep venous thrombosis) Essential hypertension Former smoker GERD (gastroesophageal reflux disease) History of left heart catheterization (07/05/16) Hyperlipidemia IBS (irritable bowel syndrome) Knee arthropathy Lung cancer Myocardial infarct On home oxygen therapy Orthopedic aftercare SHANA treated with BiPAP Osteoarthritis Osteoporosis Pulmonary embolism Restless leg syndrome Stage 3 severe COPD by GOLD classification Tobacco abuse Type 2 diabetes mellitus without complication Home Medications pramipexole 1.5 mg tablet 1.5 mg PO QHS restless legs 06/12/14 [History Last Taken 09/07/22] trazodone 100 mg tablet 100 mg PO QHS sleep 06/12/14 [History Last Taken 09/07/22] ropinirole 2 mg tablet 2 mg PO QHS restless legs 10/20/15 [History Last Taken 09/07/22] atorvastatin 80 mg tablet 80 mg PO QHS cholesterol 10/20/21 [History Last Taken 09/07/22] sertraline 50 mg tablet 50 mg PO DAILY anxiety 02/25/22 [History Last Taken 09/07/22] albuterol sulfate 90 mcg/actuation aerosol inhaler 2 puff inhalation Q4H PRN shortness of breath or wheezing #8.5 grams 02/26/22 [Rx Last Taken 09/07/22] lancets (Lancets,Ultra Thin) #200 ea 02/26/22 [Rx Last Taken Unknown] aspirin 81 mg chewable tablet 81 mg PO BREAKFAST [facility] 04/25/22 [History Last Taken 09/07/22] albuterol sulfate 2.5 mg/3 mL (0.083 %) solution for nebulization 2.5 mg inhalation Q4H PRN Shortness Of Breath 08/24/22 [History Last Taken 09/07/22] apixaban 5 mg tablet (Eliquis) 5 mg PO BID #60 tabs 08/24/22 [Rx Last Taken 09/07/22] azithromycin 250 mg tablet 250 mg PO DAILY 08/24/22 [History Last Taken 09/07/22] calcium carbonate 250 mg-vitamin D3 3.125 mcg (125 unit) tablet 1 tab PO BID 08/24/22 [History Last Taken 09/07/22] fluticasone fur. 100 mcg-umeclid 62.5 mcg-vilant 25 mcg inhalat.powder (Trelegy Ellipta) 1 inh inhalation DAILY 08/24/22 [History Last Taken 09/07/22] furosemide 20 mg tablet 40 mg PO DAILY water pill 08/24/22 [History Last Taken 09/07/22] ipratropium 0.5 mg-albuterol 3 mg (2.5 mg base)/3 mL nebulization soln 3 ml inhalation Q4H PRN breath 08/24/22 [History Last Taken 09/07/22] losartan 50 mg tablet 50 mg PO DAILY 08/24/22 [History Last Taken Unknown] varenicline 1 mg tablet 1 mg PO BID 08/24/22 [History Last Taken 09/07/22] ibandronate 150 mg tablet (Boniva) 150 mg PO QMONTH 09/08/22 [History Last Taken 08/09/22] insulin glargine 100 unit/mL subcutaneous cartridge unit subcut 09/08/22 [History Last Taken 09/07/22] oxycodone 5 mg tablet 5 mg PO Q6H pain 09/08/22 [History Last Taken 09/07/22] glipizide 5 mg tablet 5 mg PO DAILYCM #0 tabs 09/11/22 [Rx Last Taken Unknown] prednisone 10 mg tablet 40 mg PO BREAKFAST #0 tabs 09/11/22 [Rx Last Taken Unknown] Allergy/AdvReac Type Severity Reaction Status Date / Time gabapentin [From Neurontin] Allergy Unknown mental Verified 09/26/22 18:34 status change bupropion HCl Allergy Hives Verified 09/26/22 18:34 [From Wellbutrin] moxifloxacin HCl Allergy Hives Verified 09/26/22 18:34 [From Avelox] Family History Mother COPD (chronic obstructive pulmonary disease) Cancer Diabetes Heart disease Father COPD (chronic obstructive pulmonary disease) Cancer Diabetes Heart disease Sister Breast cancer Diabetes Brother Cancer Prostate and throat Heart disease Hypertension Diabetes Surgical History H/O hand surgery H/O knee surgery H/O: hysterectomy History of back surgery History of History of colonoscopy History of coronary artery stent placement (07/17/21) History of esophagogastroduodenoscopy (EGD) History of repair of rectocele Status post lobectomy of lung Social History household members: none Smoking Status: Never smoker how long ago did patient quit smoking: Quit tobacco use ~ 3 months prior 11/2021. alcohol intake: never substance use type: does not use ROS ROS ED Review of Systems ROS Unobtainable: Denies due to encephalopathy Constitutional Constitutional ED: Denies chills or fever(s) Eyes Eyes: Denies change in vision or diplopia ENT ENT ED: Denies rhinorrhea Cardiovascular Cardiovascular: Denies chest pain or palpitations Respiratory/Chest Respiratory/Chest: Denies cough or dyspnea Gastrointestinal Gastrointestinal: Denies abdominal pain or constipation Musculoskeletal Musculoskeletal: Reports neck pain and other Details: Shoulder pain Integumentary Denies abscess or Abrasions Neurologic Neurologic: Reports headache(s) and paresthesias EXAM Physical Exam Const Vital Signs: 09/26/22 18:34 09/26/22 18:38 09/26/22 18:40 Temperature 96.6 F L 96.6 F L Temperature Source Temporal Temporal Pulse Rate 86 82 Respiratory Rate 22 H Respiratory Effort Short of Breath Respiratory Depth Shallow Respiratory Pattern Tachypnea Blood Pressure 159/67 H 159/67 H Blood Pressure Mean 97 97 Pulse Ox 100 100 Oxygen Delivery Method Nasal Cannula Nasal Cannula Room Air Oxygen Flow Rate (L/min) 4 4 4 09/26/22 19:54 09/26/22 20:33 Temperature Temperature Source Pulse Rate Respiratory Rate 29 H Respiratory Effort Respiratory Depth Respiratory Pattern Blood Pressure 113/29 L Blood Pressure Mean 57 Pulse Ox 100 Oxygen Delivery Method Nasal Cannula Nasal Cannula Oxygen Flow Rate (L/min) 4 4 MDM MDM MDM Narrative Medical decision making narrative: Patient presenting with symptoms of chronic pain complaints. She initially states that she only has ice and heat but also she sees pain management and an orthopedic surgeon to help control her neck and her shoulder pain. I did obtain a CBC to look for leukocytosis, hemoglobin, differential needs all her baseline. Renal function electrolytes at baseline. High-sensitivity troponin is 7 and 2- hour troponin is 6. These were checked this because she was dyspneic on arrival. She is not reporting any chest pain. EKG was sinus rhythm with a ventricular rate of 80 bpm on my interpretation. Chest x-ray on my interpretation shows no acute cardiopulmonary process. I did obtain imaging of the left shoulder and the cervical spine which also show nothing acute. At this point patient was counseled that she will need to follow-up with her pain management physician. She states that she has a specialized doctor that is up [place] in [place] that can see her for her shoulder pain but she does not want to make the trip. I encouraged her to make this trip so she can be treated. She can also see Dr. Mcbride locally as needed. Impression: 1. Cervical strain 2. Left shoulder strain 3. Chronic dyspnea Lab Data Attestation: I reviewed the patient's lab results. Labs: Laboratory Results - last 24 hr 09/26/22 09/26/22 09/26/22 19:39 19:39 21:54 WBC 10.7 RBC 3.90 L Hgb 10.6 L Hct 34.7 L MCV 89.0 MCH 27.2 MCHC 30.5 L RDW Std Deviation 54.0 H RDW Coeff of Doretha 16.6 H Plt Count 259 MPV 10.1 Immature Gran % (Auto) 0.400 Neut % (Auto) 65.7 Lymph % (Auto) 24.5 [place] % (Auto) 6.4 Eos % (Auto) 2.7 Baso % (Auto) 0.3 Absolute Neuts (auto) 7.1 Absolute Lymphs (auto) 2.63 Nucleated RBC % 0 Sodium 142 Potassium 4.4 Chloride 106 Carbon Dioxide 30.0 Anion Gap 6 BUN 19 H Creatinine 0.74 Estim Creat Clear Calc 41.45 Est GFR (MDRD) Af Amer 99 Est GFR (MDRD) Non-Af 82 BUN/Creatinine Ratio 25.7 H Glucose 137 H Calcium 9.2 Troponin I High Sens 7 6 Radiography Diagnostic Testing: Clinical Impression(s) from Imaging Studies Cervical Spine X-Ray 09/26/22 19:16 IMPRESSION: No evidence of acute fracture or spondylolisthesis. Electronically Signed: Kd Bone MD at 20:18 EST , Chest X-Ray 09/26/22 19:45 IMPRESSION: No radiographic evidence of acute cardiopulmonary disease. Electronically Signed: Kd Bone MD at 20:18 EST , Shoulder X-Ray 09/26/22 19:45 IMPRESSION: Negative left shoulder x-rays. Electronically Signed: Kd Bone MD at 20:17 EST , Discharge Plan Triage Chief Complaint: Shortness of Breath ED Provider: Miles Bernal Dx/Rx/DC Orders Instructions: ED Neck Sprain or Strain, ED Shoulder Pain, Uncertain Cause Prescriptions: No Action varenicline 1 mg tablet 1 mg PO BID Trelegy Ellipta 100-62.5-25 mcg blister with device 1 inh inhalation DAILY azithromycin 250 mg tablet 250 mg PO DAILY Rx Instructions: start on day 2 of therapy losartan 50 mg tablet 50 mg PO DAILY calcium carbonate-vitamin D3 250 mg-3.125 mcg (125 unit) tablet 1 tab PO BID ipratropium-albuterol 0.5 mg-3 mg(2.5 mg base)/3 mL solution for nebulization 3 ml inhalation Q4H PRN (Reason: breath) albuterol sulfate 2.5 mg /3 mL (0.083 %) solution for nebulization 2.5 mg inhalation Q4H PRN (Reason: Shortness Of Breath) trazodone 100 MG tablet 100 mg PO QHS Label Comments: sleep pramipexole 1.5 MG tablet 1.5 mg PO QHS Label Comments: parkinson's disease/restless legs ropinirole 2 MG tablet 2 mg PO QHS Label Comments: parkinson's disease/restless leg furosemide 20 mg tablet 40 mg PO DAILY atorvastatin 80 mg tablet 80 mg PO QHS Label Comments: Take 1 tablet by mouth at bedtime sertraline 50 mg tablet 50 mg PO DAILY Label Comments: TAKE ONE TABLET BY MOUTH DAILY albuterol sulfate 90 mcg/actuation HFA aerosol inhaler 2 puff inhalation Q4H PRN (Reason: shortness of breath or wheezing) Qty: 8.5 0RF (DME) lancets [Lancets,Ultra Thin] Misc See Rx Instructions .Route Qty: 200 0RF Rx Instructions: As directed aspirin 81 mg tablet,chewable 81 mg PO BREAKFAST oxycodone 5 mg Tablet 5 mg PO Q6H insulin glargine 100 unit/mL Cartridge SUBCUT Rx Instructions: on 150 sliding scale before meals ibandronate [Boniva] 150 mg Tablet 150 mg PO QMONTH Rx Instructions: takes 15 of q month prednisone 10 mg tablet 40 mg PO BREAKFAST Qty: 0 0RF Rx Instructions: 4 tablets daily for 3 days then 3 tablets daily for 3 days then 2 tablets daily for 3 days then 1 tablet daily for 3 days then half tablet daily for 4 days glipizide 5 mg Tablet 5 mg PO DAILYCM Qty: 0 0RF Eliquis 5 mg tablet 5 mg PO BID Qty: 60 11RF Primary Care Provider: Heladio Edwards Referrals: Heladio Edwards MD [Primary Care Provider] - Disposition Disposition: Home, Self Care
[2022-09-26] MEDS: Morphine 4 MG/ML Syringe IV (19:36)
[2022-09-26] MEDS: Ondansetron 4 MG/2 ML Vial IV (19:36)
[2022-09-26 19:44] LABS: Absolute Lymphocyte Count 2.63 X10^3/uL (0.83-4.51); Absolute Neutrophil Count 7.1 X10^3/uL (2.0-7.7); Basophil# 0.03 X10^3/uL; Basophil% 0.3 % (0-1); Eosinophil# 0.29 X10^3/uL; Eosinophils% 2.7 % (0-5); Hematocrit 34.7 % (37-47); Hemoglobin 10.6 g/dL (12.0-15.0); Lymphocyte # 2.63 X10^3/ul (0.83-4.51); Lymphocyte % 24.5 % (19-41); Mean Corp Hgb Conc 30.5 g/dL (32-36); Mean Corpuscular Hgb 27.2 pg (27.0-32.0); Mean Platelet Vol. 10.1 fl (6.2-12.0); Monocyte# 0.69 X10^3/uL; Monocyte% 6.4 % (0-10); NRBC Flagged by Analyzer 0 % (0-5); Neutrophil # 7.06 X10^3/uL (2.7-7.7); Neutrophil % 65.7 % (47-70); Platelet Count 259 K/mm3 (150-450); RBC Distribution Width CV 16.6 % (11.6-14.6); White Blood Count 10.7 K/mm3 (4.4-11.0)
--- NOTE | 2022-09-26 19:45 | RAD_ITS ---
EXAM: XR CHEST, 1 VIEW CLINICAL INDICATION: chest pain TECHNIQUE: Frontal view of the chest. This report was created using [employer] report generation technology. COMPARISON: 09/07/2022 FINDINGS: LUNGS AND PLEURAL SPACES: Unremarkable. No consolidation or edema. No pneumothorax. No effusion. HEART: Unremarkable. Cardiac silhouette not enlarged. MEDIASTINUM: Central airways and mediastinal contour are unremarkable. BONES/JOINTS: Unremarkable. SOFT TISSUES: Unremarkable. RAD/Chest 1 View (Portable) IMPRESSION: No radiographic evidence of acute cardiopulmonary disease. Electronically Signed: Kd Bone MD at 20:18 EST ,
--- NOTE | 2022-09-26 19:45 | RAD_ITS ---
EXAM: XR LEFT SHOULDER COMPLETE, 2 OR MORE VIEWS CLINICAL INDICATION: PAIN TECHNIQUE: Two or more views of the left shoulder. This report was created using [employer] report generation technology. COMPARISON: None. FINDINGS: BONES/JOINTS: Unremarkable. No acute fracture. No subluxation. Normal alignment. Preservation of the joint space. No sclerotic or destructive changes observed. SOFT TISSUES: Unremarkable. No soft tissue swelling or gas. No radiopaque foreign body. RAD/Shoulder min 2 Views IMPRESSION: Negative left shoulder x-rays. Electronically Signed: Kd Bone MD at 20:17 EST ,
[2022-09-26 20:01] LABS: Anion Gap 6 (5-15); BUN 19 mg/dL (7-18); BUN/Creat Ratio 25.7 RATIO (10-20); Calcium,Total 9.2 mg/dL (8.5-10.1); Chloride 106 mmol/L (98-107); Creatinine, Serum 0.74 mg/dL (0.55-1.02); EST Glomerular Filtration Rate 82 mL/min (>60); Est Glom Filt Rate - Afr Amer 99 mL/min (>60); Estimated Creatinine Clearance 41.45 ml/min; Glucose 137 mg/dL (74-106); Potassium 4.4 mmol/L (3.5-5.1); Sodium Level 142 mmol/L (136-145); Troponin-I HS (w/2H Reflex) 7 pg/mL (3.0-54.0)
[2022-09-26 20:33] VITALS: BP 113/29; RESP 29; O2SAT 100
[2022-09-26 21:41] LABS: Reflex Troponin-HS? (from REC) Y
[2022-09-26 22:17] LABS: Troponin-I HS 6 pg/mL (3.0-54.0)
[2022-09-26] MEDS: oxyCODONE 5 MG Tablet PO (22:55)
[2022-09-26 23:04] VITALS: BP 162/89; PULSE 74; RESP 16; O2SAT 99
[2022-09-26 23:28] VITALS: PULSE 75; RESP 20; O2SAT 100
== END 2022-09-27 02:40 | disposition home or self-care (01) ==
PROVIDERS: Emergency Provider Student in an Organized Health Care Education/Training Program; PCP Family Medicine; Visit Provider Student in an Organized Health Care Education/Training Program
DX: S16.1XXA Strain of muscle, fascia and tendon at neck level, initial encounter (principal); J44.9 Chronic obstructive pulmonary disease, unspecified; I11.0 Hypertensive heart disease with heart failure; I50.9 Heart failure, unspecified; E11.9 Type 2 diabetes mellitus without complications; Z79.4 Long term (current) use of insulin; S46.912A Strain of unspecified muscle, fascia and tendon at shoulder and upper arm level, left arm, initial encounter; X58.XXXA Exposure to other specified factors, initial encounter; I25.10 Atherosclerotic heart disease of native coronary artery without angina pectoris; I25.2 Old myocardial infarction; E78.5 Hyperlipidemia, unspecified; Z95.5 Presence of coronary angioplasty implant and graft; Z99.81 Dependence on supplemental oxygen; Z79.82 Long term (current) use of aspirin; Z79.84 Long term (current) use of oral hypoglycemic drugs; Z79.899 Other long term (current) drug therapy; Z87.891 Personal history of nicotine dependence
CPT/HCPCS: 71045; 72040; 73030; 80048; 84484; 85025; 93005; 96374; 96375; 99285; A4216; J2405

== ENCOUNTER 2023-10-02 23:18 | Emergency (ER) | payer MEDICARE, MEDICAID, SELFPAY ==
[2023-10-02 23:20] VITALS: BP 158/58; PULSE 71; RESP 20; TEMP 35.8; O2SAT 100; O2SAT 94
--- NOTE | 2023-10-03 00:47 | RAD_ITS ---
EXAM: XR PELVIS, 1 OR 2 VIEWS CLINICAL INDICATION: pain TECHNIQUE: Frontal view of the pelvis. COMPARISON: No relevant prior studies available. FINDINGS: BONES/JOINTS: Unremarkable. No displaced fracture. No destructive or sclerotic lesions. Note that overlapping bowel shadows may however obscure fine detail. Sacroiliac joints are unremarkable. No widening of the pubic symphysis. The articular structures are unremarkable. SOFT TISSUES: Unremarkable. No soft tissue swelling or gas. RAD/Pelvis 1 or 2 Views IMPRESSION: No evidence of displaced pelvic fracture. Electronically Signed: Leonardo Riggs MD at 1:29 EST ,
--- NOTE | 2023-10-03 00:47 | CT_ITS ---
EXAM: CT CERVICAL SPINE WITHOUT INTRAVENOUS CONTRAST CLINICAL INDICATION: fall TECHNIQUE: Helically acquired images were obtained of the cervical spine without intravenous contrast. 2D reformatted images were reviewed. This CT exam was performed using one or more of the following dose reduction techniques: automated exposure control, adjustment of the mA and/or kV according to patient size, and/or use of iterative reconstruction technique. RADIATION DOSE: CTDIvol = 30.86 mGy, DLP = 2759.84 mGy-cm COMPARISON: Plain film cervical spine 09/26/2022 FINDINGS: VERTEBRAE: Unremarkable. No fracture. No traumatic subluxation. No discrete lytic or blastic abnormality. Normal alignment. Normal craniocervical junction and cervicothoracic junction. DISCS/SPINAL CANAL/NEURAL FORAMINA: Degenerative changes of the intervertebral discs. No critical stenosis. SOFT TISSUES: Unremarkable. No prevertebral soft tissue swelling. VASCULATURE: Carotid artery calcifications. LYMPH NODES: Unremarkable. No cervical adenopathy. LUNG APICES: Unremarkable as visualized. Clear. CT/Spine Cervical without Contras IMPRESSION: 1. No acute injuries identified involving the cervical spine. 2. Degenerative changes. Electronically Signed: Leonardo Riggs MD at 1:38 EST ,
--- NOTE | 2023-10-03 00:47 | CT_ITS ---
EXAM: CT HEAD WITHOUT INTRAVENOUS CONTRAST CLINICAL INDICATION: head injury TECHNIQUE: Multiple axial images were obtained of the head without intravenous contrast. This CT exam was performed using one or more of the following dose reduction techniques: automated exposure control, adjustment of the mA and/or kV according to patient size, and/or use of iterative reconstruction technique. RADIATION DOSE: CTDIvol = 44.99 mGy, DLP = 2759.84 mGy-cm COMPARISON: Head CT 04/19/2021 FINDINGS: BRAIN AND EXTRA-AXIAL SPACES: Chronic lacunar infarcts in the thalami bilaterally. No intra- or extra-axial hemorrhage. No intracranial mass or mass effect. Posterior fossa structures are unremarkable. Ventricles are appropriate for age. No hydrocephalus. Basal cisterns are patent. BONES/JOINTS: Unremarkable. No discrete lytic or blastic abnormalities. SINUSES: Unremarkable as visualized. Clear. MASTOID AIR CELLS: Unremarkable. Clear. ORBITS: Visualized globes, extraocular muscles, optic nerves and retrobulbar fat appear unremarkable. CT/Brain/Head without Contrast IMPRESSION: No acute findings in the head/brain. Electronically Signed: Leonardo Riggs MD at 1:37 EST ,
--- NOTE | 2023-10-03 00:47 | CT_ITS ---
EXAM: CT THORACIC SPINE WITHOUT INTRAVENOUS CONTRAST CLINICAL INDICATION: fall TECHNIQUE: Helically acquired images were obtained of the thoracic spine without intravenous contrast. 2D reformats were reviewed. This CT exam was performed using one or more of the following dose reduction techniques: automated exposure control, adjustment of the mA and/or kV according to patient size, and/or use of iterative reconstruction technique. RADIATION DOSE: CTDIvol = 35.70 mGy, DLP = 2759.84 mGy-cm COMPARISON: No relevant prior studies available. FINDINGS: VERTEBRAE: Sclerotic lesions in the T4 and T5 vertebral bodies which may indicate metastatic disease. Mild chronic compression deformity of the T4 superior endplate. Chronic T7 and T8 compression deformities with vertebroplasty changes. No traumatic subluxation. Normal alignment. /SPINAL CANAL/NEURAL FORAMINA: Degenerative changes of the intervertebral discs. VASCULATURE: Moderate atherosclerotic changes of the visualized aorta, without aneurysm. LYMPH NODES: Unremarkable. No retroperitoneal adenopathy. LUNGS AND PLEURAL SPACES: Mild emphysematous changes of the visualized pulmonary parenchyma. No mass. No pleural effusion or thickening. No pneumothorax. CT/Spine Thoracic without Contras IMPRESSION: 1. No acute injuries identified involving the thoracic spine. 2. Sclerotic lesions in the T4 and T5 vertebral bodies which may indicate metastatic disease. Mild chronic compression deformity of the T4 superior endplate. 3. Degenerative changes. 4. Chronic T7 and T8 compression deformities with vertebroplasty changes. Electronically Signed: Leonardo Riggs MD at 1:41 EST ,
[2023-10-03] MEDS: Ondansetron ODT 4 MG Tablet PO (00:55)
[2023-10-03] MEDS: Morphine 4 MG/ML Syringe 8 MG IM (00:55)
--- NOTE | 2023-10-03 01:52 | EX.ED.DYSGE1 ---
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 Family states that they came home and found the patient unresponsive on the floor. They state they went to her and they called her name and touched her body and she awoke easily. They state however that after she woke up she seemed confused for approximately 10 to 15 minutes. The patient states she cannot remember how or why she fell or potential how long she was on the ground. She denies any history of bleeding disorder or blood thinner use but has signs of injury to the right side of her head and has been complaining of upper back pain and with concern for trauma she was brought in for evaluation [facility] Medical History (Updated 10/03/23 @ 03:[address] Nate Lara, ) Abnormal cardiac enzyme level Acute exacerbation of chronic obstructive pulmonary disease Asthma Atherosclerotic heart disease of [place] coronary artery without angina pectoris Bilateral pulmonary embolism BiPAP (biphasic positive airway pressure) dependence Chest pain Chronic pain Chronic respiratory failure with hypoxia Compression fracture of body of thoracic vertebra Congestive heart failure (CHF) Debility Demand ischemia Depression DVT (deep venous thrombosis) Essential hypertension Former smoker GERD (gastroesophageal reflux disease) History of left heart catheterization (07/05/16) Hyperlipidemia Hypoxemia IBS (irritable bowel syndrome) Knee arthropathy Lung cancer Myocardial infarct On home oxygen therapy Orthopedic aftercare SHANA treated with BiPAP Osteoarthritis Osteoporosis Pulmonary embolism Restless leg syndrome Stage 3 severe COPD by GOLD classification Tobacco abuse Type 2 diabetes mellitus without complication Home Medications pramipexole 1.5 mg tablet 1.5 mg PO QHS restless legs 06/12/14 [History Last Taken 09/07/22] trazodone 100 mg tablet 100 mg PO QHS sleep 06/12/14 [History Last Taken 09/07/22] ropinirole 2 mg tablet 2 mg PO QHS restless legs 10/20/15 [History Last Taken 09/07/22] atorvastatin 80 mg tablet 80 mg PO QHS cholesterol 10/20/21 [History Last Taken 09/07/22] sertraline 50 mg tablet 50 mg PO DAILY anxiety 02/25/22 [History Last Taken 09/07/22] albuterol sulfate 90 mcg/actuation aerosol inhaler 2 puff inhalation Q4H PRN shortness of breath or wheezing #8.5 grams 02/26/22 [Rx Last Taken 09/07/22] lancets (Lancets,Ultra Thin) #200 ea 02/26/22 [Rx Last Taken Unknown] aspirin 81 mg chewable tablet 81 mg PO BREAKFAST heart health 04/25/22 [History Last Taken 09/07/22] albuterol sulfate 2.5 mg/3 mL (0.083 %) solution for nebulization 2.5 mg inhalation Q4H PRN Shortness Of Breath 08/24/22 [History Last Taken 09/07/22] apixaban 5 mg tablet (Eliquis) 5 mg PO BID #60 tabs 08/24/22 [Rx Last Taken 09/07/22] azithromycin 250 mg tablet 250 mg PO DAILY 08/24/22 [History Last Taken 09/07/22] calcium carbonate 250 mg-vitamin D3 3.125 mcg (125 unit) tablet 1 tab PO BID 08/24/22 [History Last Taken 09/07/22] fluticasone fur. 100 mcg-umeclid 62.5 mcg-vilant 25 mcg inhalat.powder (Trelegy Ellipta) 1 inh inhalation DAILY 08/24/22 [History Last Taken 09/07/22] furosemide 20 mg tablet 40 mg PO DAILY water pill 08/24/22 [History Last Taken 09/07/22] ipratropium 0.5 mg-albuterol 3 mg (2.5 mg base)/3 mL nebulization soln 3 ml inhalation Q4H PRN breath 08/24/22 [History Last Taken 09/07/22] losartan 50 mg tablet 50 mg PO DAILY 08/24/22 [History Last Taken Unknown] varenicline 1 mg tablet 1 mg PO BID 08/24/22 [History Last Taken 09/07/22] ibandronate 150 mg tablet (Boniva) 150 mg PO QMONTH 09/08/22 [History Last Taken 08/09/22] insulin glargine 100 unit/mL subcutaneous cartridge unit subcut 09/08/22 [History Last Taken 09/07/22] oxycodone 5 mg tablet 10 mg PO Q2H PRN pain 09/08/22 [History Last Taken 09/07/22] glipizide 5 mg tablet 5 mg PO DAILYCM #0 tabs 09/11/22 [Rx Last Taken Unknown] lorazepam 0.5 mg tablet (Ativan) 0.5 mg PO Q4H PRN anxiety 10/03/23 [History Last Taken Unknown] Allergy/AdvReac Type Severity Reaction Status Date / Time gabapentin [From Neurontin] Allergy Unknown mental Verified 10/02/23 23:20 status change bupropion HCl Allergy Hives Verified 10/02/23 23:20 [From Wellbutrin] moxifloxacin HCl Allergy Hives Verified 10/02/23 23:20 [From Avelox] Family History (Updated 12/07/22 @ 09:39 by Nesha Oreilly) Mother COPD (chronic obstructive pulmonary disease) Cancer Diabetes Heart disease Father COPD (chronic obstructive pulmonary disease) Cancer Diabetes Heart disease Sister Breast cancer Diabetes Brother Cancer Prostate and throat Heart disease Hypertension Diabetes CVA (cerebral vascular accident) Surgical History (Updated 12/07/22 @ 09:39 by Nesha Oreilly) H/O hand surgery H/O knee surgery H/O: hysterectomy History of back surgery History of History of colonoscopy History of coronary artery stent placement (07/17/21) History of esophagogastroduodenoscopy (EGD) History of repair of rectocele Status post lobectomy of lung (~2013) Social History (Updated 12/07/22 @ 09:41 by Nesha Oreilly) household members: none Smoking Status: Light Smoker (<10/day) Electronic Cigarette Use: with nicotine how long ago did patient quit smoking: Quit tobacco use ~ 3 months prior 11/2021. alcohol intake: current alcohol intake frequency: holidays/special occasions only substance use type: does not use ROS ROS ED Constitutional Constitutional ED: Denies chills or fever(s) Eyes Eyes: Denies change in vision ENT ENT ED: Denies sore throat Cardiovascular Cardiovascular: Denies chest pain, palpitations or racing heartbeat Respiratory/Chest Respiratory/Chest: Denies cough or dyspnea Gastrointestinal Gastrointestinal: Denies abdominal pain, diarrhea, nausea or vomiting Musculoskeletal Musculoskeletal: Reports back pain and neck pain Integumentary Reports Abrasions Neurologic Neurologic: Reports headache(s) Hematologic/Lymphatic Hematologic/Lymphatic: Denies easy bleeding or easy bruising EXAM Physical Exam Const Vital Signs: 10/02/23 23:20 10/03/23 00:19 10/03/23 02:08 Temperature 96.5 F L Temperature Source Temporal Pulse Rate 71 69 Respiratory Rate 20 H 19 H Respiratory Effort Normal Non-Labored Respiratory Depth Normal Respiratory Pattern Normal Blood Pressure 158/58 H 152/57 H Blood Pressure Mean 91 88 Pulse Ox 94 98 Oxygen Delivery Method Nasal Cannula Positive well nourished, well developed and obese General Appearance ED: well developed Nutritional Appearance: obese HEENT HEENT Narrative: Patient has mild soft tissue swelling with ecchymosis along the right lateral portion of her forehead consistent with history of fall Otherwise no signs of depressed or basilar skull fracture Eyes PERRL and EOMs intact bilaterally Eyes Narrative: There is a subconjunctival hemorrhage of the right eye However no hyphema Neck Neck Narrative: No bony deformity or step-off of the cervical spine but there is bilateral paracervical tension and spasm and pain noted Chest Wall palpation of chest normal Chest Narrative: No bony deformity or crepitance Resp normal respiratory effort Resp Narrative: Breath sounds are diminished throughout with faint expiratory wheeze in the bilateral bases otherwise no nasal flaring retractions tachypnea or accessory muscle use Cardio regular rate and regular rhythm Rate: other Other Details: Radial and carotid pulses are equal and symmetric GI non-tender and non-distended GI Narrative: Abdomen is soft nontender nondistended with hypoactive bowel sounds No voluntary guarding or rigidity or pulsatile mass No abrasions or ecchymosis noted Auscultation: hypoactive bowel sounds Palpation: soft Back/Spine Back/Spine Narrative: There is pain on palpation of the midline thoracic spine vertebral regions 8-10 without obvious bony deformity or step-off No pain on palpation, step-off, or deformity noted of the lumbar spine Extremity normal to inspection Extremity Narrative: Pelvis is stable there is no shortening or external rotation of either lower extremity. No pain on palpation in the inguinal region Patient is able to move both arms and legs without difficulty Neuro oriented x3, CN's II-XII intact bilaterally and no sensory deficits noted Neuro Narrative: Patient is awake alert and oriented person place and time GCS is 15 Cranial nerves II through XII are grossly intact without focal neurologic deficit NIH stroke scale score of 0 Sensorium / Orientation: alert Psych Psych Narrative: Patient has a flat affect Skin Skin Narrative: Soft tissue swelling with abrasion to the right forehead as documented above General Skin Exam: Negative for jaundice MDM MDM MDM Narrative Medical decision making narrative: Patient arrived to the ER hypertensive otherwise with stable vitals. Family reported that she was unresponsive when they found her but she awoke with light touch and voice. The patient did not remember the event and has signs of head trauma. There is a diagnosis is for skull fracture versus subdural or epidural hematoma. With pain in the neck and spine there is also concern for compression fracture or spondylolisthesis. There is also concern for electrolyte derangement or cardiac dysrhythmia or acute coronary syndrome which led to the syncope. I discussed with patient and family that we can perform the cardiac workup with blood work EKG and also assess for trauma with CTs and x-rays. Patient and family state they have higher concern for trauma than the apparent syncope and they do not want laboratory studies obtained but do want imaging to rule out trauma. CTs revealed chronic findings without acute skull fracture or brain bleed or cervical spine/thoracic spine injury. Pelvis x-ray also showed no acute fracture or dislocation. She remained awake alert and oriented to person place and time during entire ER stay. Therefore at this time as patient's at her baseline mental status with stable vitals and workup reveals no signs of acute trauma to be discharged home History & Record Review Discussion w/independent historian: Patient and Family Radiography Diagnostic Testing: Clinical Impression(s) from Imaging Studies Brain CT 10/03/23 00:47 IMPRESSION: No acute findings in the head/brain. Electronically Signed: Leonardo Riggs MD at 1:37 EST Reading Location ID and State: [facility] / [place] Tel , Service support , Cervical Spine CT 10/03/23 00:47 IMPRESSION: 1. No acute injuries identified involving the cervical spine. 2. Degenerative changes. Electronically Signed: Leonardo Riggs MD at 1:38 EST , Pelvis X-Ray 10/03/23 00:47 IMPRESSION: No evidence of displaced pelvic fracture. Electronically Signed: Leonardo Riggs MD at 1:29 EST , Thoracic Spine CT 10/03/23 00:47 IMPRESSION: 1. No acute injuries identified involving the thoracic spine. 2. Sclerotic lesions in the T4 and T5 vertebral bodies which may indicate metastatic disease. Mild chronic compression deformity of the T4 superior endplate. 3. Degenerative changes. 4. Chronic T7 and T8 compression deformities with vertebroplasty changes. Electronically Signed: Leonardo Riggs MD at 1:41 EST , Pelvis x-ray as interpreted by the emergency medicine physician reveals arthritic changes without acute fracture or dislocation Discharge Plan Triage Chief Complaint: Fall ED Provider: Nate Lara Dx/Rx/DC Orders Clinical Impression: Subconjunctival hemorrhage, Closed head injury, Syncope, Chronic respiratory failure with hypoxia, Type 2 diabetes mellitus without complication, Essential hypertension Instructions: Subconjunctival Hemorrhage, ED Head Injury (Adult) Prescriptions: No Action varenicline 1 mg tablet 1 mg PO BID Trelegy Ellipta 100-62.5-25 mcg blister with device 1 inh inhalation DAILY azithromycin 250 mg tablet 250 mg PO DAILY Rx Instructions: start on day 2 of therapy losartan 50 mg tablet 50 mg PO DAILY calcium carbonate-vitamin D3 250 mg-3.125 mcg (125 unit) tablet 1 tab PO BID ipratropium-albuterol 0.5 mg-3 mg(2.5 mg base)/3 mL solution for nebulization 3 ml inhalation Q4H PRN (Reason: breath) albuterol sulfate 2.5 mg /3 mL (0.083 %) solution for nebulization 2.5 mg inhalation Q4H PRN (Reason: Shortness Of Breath) trazodone 100 MG tablet 100 mg PO QHS Patient Comments: sleep pramipexole 1.5 MG tablet 1.5 mg PO QHS Patient Comments: parkinson's disease/restless legs ropinirole 2 MG tablet 2 mg PO QHS Patient Comments: parkinson's disease/restless leg furosemide 20 mg tablet 40 mg PO DAILY atorvastatin 80 mg tablet 80 mg PO QHS Patient Comments: Take 1 tablet by mouth at bedtime sertraline 50 mg tablet 50 mg PO DAILY Patient Comments: TAKE ONE TABLET BY MOUTH DAILY albuterol sulfate 90 mcg/actuation HFA aerosol inhaler 2 puff inhalation Q4H PRN (Reason: shortness of breath or wheezing) Qty: 8.5 0RF (DME) lancets [Lancets,Ultra Thin] Misc See Rx Instructions .Route Qty: 200 0RF Rx Instructions: As directed aspirin 81 mg tablet,chewable 81 mg PO BREAKFAST oxycodone 5 mg Tablet 10 mg PO Q2H PRN (Reason: pain) insulin glargine 100 unit/mL Cartridge SUBCUT Rx Instructions: on 150 sliding scale before meals ibandronate [Boniva] 150 mg Tablet 150 mg PO QMONTH Rx Instructions: takes 15 of q month glipizide 5 mg Tablet 5 mg PO DAILYCM Qty: 0 0RF lorazepam [Ativan] 0.5 mg tablet 0.5 mg PO Q4H PRN (Reason: anxiety) Eliquis 5 mg tablet 5 mg PO BID Qty: 60 11RF Primary Care Provider: Heladio Edwards Referrals: Heladio Edwards MD [Primary Care Provider] - Disposition Disposition: Home, Self Care
[2023-10-03 02:08] VITALS: BP 152/57; PULSE 69; RESP 19; O2SAT 98
--- OUTSIDE RECORDS SUMMARY | 2023-10-03 02:17 | XMS RPT_ITS | CCD ---
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 Name Role Phone Heladio Madsen MD Primary Care Provider Dennis Kemp DO Unavailable Ligia RN, Argenis Mora Unavailable Unavail able Ligia RYAN, Argenis E Unavailable Wiley Cardona MD Unavailable Anya Mcbride Unavailable Unavailable Heladio Madsen MD Primary Care Provider Ligia RYAN, Argenis E Unavailable Wiley Cardona MD Unavailable Anya Mcbride Unavailable Unavailable Heladio Madsen MD Primary Care Provider Ligia RYAN, Argenis E Unavailable Anya Mcbride Unavailable Unavailable Heladio Madsne MD Primary Care Provider Ligia RYAN, Argenis E Unavailable Wiley Cardona MD Unavailable Anya Mcbride Unavailable Unavailable Ligia RYAN, Argenis E Unavailable Manjit Mcdonald RN Unavailable Unavailable Heladio Madsen MD Primary Care Provider [phone] CLAUDIA MERCHANT Referring Unavailable CLAUDIA MERCHANT Attending Unavailable HELADIO MADSEN [facility] Care Unavailable Wiley Cardona MD Unavailable Anya Mcbride Unavailable Unavailable Anya Mcbride MD Unavailable Unavaila HELADIO [facility] Care Unavailable HELADIO MADSEN Referring Unavailable HELADIO MADSEN Referring Unavailable HELADIO MADSEN Primary Care Unavailable HELADIO MADSEN Attending Unavailable HELADIO MADSEN Primary Care Unavailable Allergies Allergy Classification Reported Allergen(s) Allergy Type Date of Onset Reaction(s) Facility (20 sources) buPROPion; Translations: [BUPROPION] Drug Allergy 04-07-2019 Hives [facility] (20 sources) buPROPion; Translations: [BUPROPION HCL] Drug Allergy 06-12-2005 Hives, Itching [facility] Work Phone: (20 sources) gabapentin; Translations: [GABAPENTIN] Drug Allergy 08-14-2005 Mental Status Change [facility] Work Phone: (20 sources) moxifloxacin; Translations: [MOXIFLOXACIN HCL] Drug Allergy 08-14-2005 Rash [facility] Work Phone: Medications Current Medications Medication Drug Class(es) Dates Sig (Normalized) Sig (Original) azithromycin 250 mg oral tablet (20 sources) Macrolide Antimicrobial Start: 06-18-2022 End: 09-06-2023 take 1 tablet by mouth once daily azithromycin (ZITHROMAX Z-FANNIE) 250 mg tablet Indications: Stage 3 severe COPD by GOLD classification (HCC) Take 1 tablet by mouth once daily. 90 tablet 3 09/06/2022 09/06/2023 Active Completed/Discontinued Medications Medication Drug Class(es) Dates Sig (Normalized) Sig (Original) albuterol 0.83 mg/ml inhalation solution (20 sources) beta2-Adrenergic Agonist Start: 02-16-2022 End: 03-18-2022 take 2.5 mg by inhalation every four hours as needed albuterol (PROVENTIL) 2.5 mg /3 mL (0.083 %) nebulizer solution Use 3 mL via nebulizer every 4 hours as needed for wheezing/shortnes s of breath. 30 Vial 0 02/16/2022 Active Problems Active Problems Problem Classification Problem Date Documented Da te Episodic/Chronic Acute bronchitis (1 source) Acute bronchitis; Translations: [Acute bronchitis, unspecified] Episodic Anxiety disorders (1 source) Mixed anxiety and depressive disorder; Translations: [Other specified anxiety disorders] Chronic Cancer of bronchus; lung (20 sources) Malignant tumor of lung; Translations: [Malignant neoplasm of unspecified part of unspecified bronchus or lung] Onset: 5 03-21-2021 Chronic Cataract (20 sources) Bilateral senile combined form cataracts of eyes; Translations: [Combined forms of age-related cataract, bilateral] Onset: 9 01-29-2019 Chronic Chronic obstructive pulmonary disease and bronchiectasis (20 sources) Chronic obstructive lung disease; Translations: [Chronic obstructive pulmonary disease, unspecified] Onset: 4 08-21-2021 Chronic Conduction disorders (20 sources) First degree atrioventricular block; Translations: [Atrioventricular block, first degree] Onset: 5 02-07-2015 Chronic Coronary atherosclerosis and other heart disease (20 sources) Coronary arteriosclerosis; Translations: [Atherosclerotic heart disease of [place] coronary artery without angina pectoris] Onset: 9 07-17-2021 Chronic Deficiency and other anemia (1 source) Anemia; Translations: [Anemia, unspecified] Episodic Diabetes mellitus without complication (20 sources) Type 2 diabetes mellitus without complication; Translations: [Type 2 diabetes mellitus without complications] Onset: 1 04-08-2021 Chronic Diseases of white blood cells (20 sources) Leukocytosis; Translations: [Elevated white blood cell count, unspecified] Onset: 1 12-15-2020 Chronic Disorders of lipid metabolism (20 sources) Pure hypercholesterolemia; Translations: [Pure hypercholesterolemia, unspecified] 07-08-2019 Chronic Esophageal disorders (20 sources) Gastroesophageal reflux disease; Translations: [Gastro-esophageal reflux disease without esophagitis] Onset: 0 Chronic Essential hypertension (20 sources) Essential hypertension; Translations: [Essential (primary) hypertension] Onset: 9 07-17-2021 Chronic Gastritis and duodenitis (1 source) Chronic superficial gastritis; Translations: [Chronic superficial gastritis without bleeding] Chronic Headache; including migraine (2 sources) Headache; Translations: [Headache, unspecified headache type] Episodic Headache; including migraine (1 source) Headache; including migraine; Translations: [Headache, unspecified headache type] Onset: 3 Immunizations and screening for infectious disease (1 source) Vaccination needed; Translations: [Encounter for immunization] Episodic Mood disorders (20 sources) Depressive disorder; Translations: [Depression] Onset: 0 09-06-2022 Chronic Nausea and vomiting (1 source) Nausea; Translations: [Nausea] Episodic Osteoarthritis (20 sources) Degenerative joint disease involving multiple joints; Translations: [Polyosteoarthritis, unspecified] Onset: 0 08-14-2005 Chronic Osteoporosis (20 sources) Osteoporosis; Translations: [Age-related osteoporosis without current pathological fracture] Onset: 5 04-07-2021 Chronic Other gastrointestinal disorders (1 source) Alteration in bowel elimination; Translations: [Change in bowel habit] Episodic Other gastrointestinal disorders (1 source) Diarrhea; Translations: [Diarrhea, unspecified] Episodic Other hereditary and degenerative nervous system conditions (20 sources) System disorder of the nervous system; Translations: [Other specified extrapyramidal and movement disorders] 08-14-2005 Chronic Other hereditary and degenerative nervous system conditions (20 sources) Restless legs; Translations: [Restless legs syndrome] Onset: 1 08-21-2021 Chronic Other lower respiratory disease (1 source) Dyspnea; Translations: [Dyspnea, unspecified] Episodic Other nervous system disorders (20 sources) Peripheral neuritis; Translations: [Other specified mononeuropathies] Onset: 5 09-01-2014 Chronic Other nervous system disorders (20 sources) Chronic pain; Translations: [Other chronic pain] Onset: 1 07-17-2021 Chronic Other nervous system disorders (2 sources) Tremor; Translations: [Tremor, unspecified] Episodic Other non-traumatic joint disorders (1 source) Shoulder pain; Translations: [Pain in unspecified shoulder] Episodic Other non-traumatic joint disorders (1 source) Chronic pain of left upper limb; Translations: [Pain in left shoulder] Episodic Other non-traumatic joint disorders (1 source) Joint pain; Translations: [Pain in unspecified joint] Episodic Other nutritional; endocrine; and metabolic disorders (20 sources) Obese class I; Translations: [Obesity, unspecified] Onset: 9 03-21-2021 Chronic Other nutritional; endocrine; and metabolic disorders (20 sources) Obese class II; Translations: [Obesity, unspecified] Onset: 1 07-17-2021 Chronic Other screening for suspected conditions (not mental disorders or infectious disease) (3 sources) Patient encounter status; Translations: [Encounter for other screening for malignant neoplasm of breast] Episodic Other upper respiratory disease (20 sources) Chronic rhinitis; Translations: [Chronic rhinitis] Onset: 3 11-05-2012 Chronic Residual codes; unclassified (20 sources) Obstructive sleep apnea syndrome; Translations: [Obstructive sleep apnea (adult) (pediatric)] Onset: 3 08-21-2021 Chronic Respiratory failure; insufficiency; arrest (adult) (20 sources) Chronic respiratory failure; Translations: [Chronic respiratory failure, unspecified whether with hypoxia or hypercapnia] Onset: 1 07-17-2021 Chronic Retinal detachments; defects; vascular occlusion; and retinopathy (20 sources) Epiretinal membrane of left eye; Translations: [Puckering of macula, left eye] Onset: 9 01-29-2019 Chronic Spondylosis; intervertebral disc disorders; other back problems (20 sources) Degeneration of intervertebral disc; Translations: [Degeneration of intervertebral disc, site unspecified] Onset: 5 01-05-2015 Chronic Substance-related disorders (20 sources) Tobacco user; Translations: [Nicotine dependence, unspecified, uncomplicated] Onset: 6 03-25-2021 Chronic Unclassified (1 source) Post-traumatic osteoarthritis, other specified site; Translations: [Post-traumatic osteoarthritis, other specified site] Onset: 3 Past or Other Problems Problem Classification Problem Date Documented Da te Episodic/Chronic Coronary atherosclerosis and other heart disease (20 sources) Coronary stent patent; Translations: [Presence of coronary angioplasty implant and graft] Onset: 08-01-2021 08-01-2021 Episodic Deficiency and other anemia (1 source) Anemia, unspecified; Translations: [Anemia, unspecified type] Onset: 09-06-2022 Episodic Fluid and electrolyte disorders (20 sources) Hyponatremia; Translations: [Hypo-osmolality and hyponatremia] Onset: 12-15-2020 12-15-2020 Episodic Hemorrhoids (20 sources) Hemorrhoids; Translations: [Unspecified hemorrhoids] Onset: 07-14-2021 07-17-2021 Episodic Nonspecific chest pain (20 sources) Chest pain; Translations: [Chest pain, unspecified] Onset: 07-14-2021 07-17-2021 Episodic Other and unspecified benign neoplasm (20 sources) History of polyp of colon; Translations: [Personal history of colonic polyps] Onset: 07-08-2019 07-08-2019 Episodic Other connective tissue disease (20 sources) Bilateral calf pain; Translations: [Pain in right lower leg] Onset: 02-13-2022 02-13-2022 Episodic Other connective tissue disease (20 sources) Fibromyositis; Translations: [Fibromyalgia] Onset: 06-21-2020 09-06-2022 Episodic Other eye disorders (20 sources) Fuchs' corneal dystrophy; Translations: [Fuchs' endothelial dystrophy] Onset: 01-29-2019 01-29-2019 Episodic Other fractures (20 sources) Compression fracture of thoracic spine; Translations: [Wedge compression fracture of unspecified thoracic vertebra, initial encounter for closed fracture] Onset: 04-08-2021 04-08-2021 Episodic Other lower respiratory disease (20 sources) Hypoxemia; Translations: [Hypoxemia] Onset: 05-09-2022 09-06-2022 Episodic Other non-traumatic joint disorders (20 sources) Instability of left patellofemoral joint; Translations: [Other instability, left knee] Onset: 06-25-2016 06-25-2016 Episodic Other nutritional; endocrine; and metabolic disorders (20 sources) H/O: Disorder; Translations: [Personal history of other endocrine, nutritional and metabolic disease] Onset: 03-21-2022 09-06-2022 Episodic Phlebitis; thrombophlebitis and thromboembolism (20 sources) H/O: Deep vein thrombosis; Translations: [Personal history of other venous thrombosis and embolism] Onset: 09-06-2022 09-06-2022 Episodic Pulmonary heart disease (20 sources) H/O: pulmonary embolus; Translations: [Personal history of pulmonary embolism] Onset: 10-15-2020 07-17-2021 Episodic Residual codes; unclassified (20 sources) Localized edema; Translations: [Localized edema] Onset: 03-21-2022 09-06-2022 Episodic Spondylosis; intervertebral disc disorders; other back problems (20 sources) Low back pain; Translations: [Lumbago] Onset: 01-05-2015 01-05-2015 Episodic Unclassified (1 source) Post-traumatic osteoarthritis, other specified site; Translations: [Post-traumatic osteoarthritis, other specified site] Onset: 11-01-2022 Urinary tract infections (20 sources) Urinary tract infectious disease; Translations: [Urinary tract infection, site not specified] Onset: 09-06-2022 09-06-2022 Episodic Results Test Name Value Interpretation Reference Range Facil ity Vital Signs Date Time Vital Sign Value Performing Clinician Faci lity 09-06-2022 10:55-0500 Body height 160 cm Heladio Madsen MD Work Phone: [facility] 09-06-2022 10:55-0500 Body weight 94.35 kg Heladio Madsen MD Work Phone: [facility] 09-06-2022 10:55-0500 Diastolic blood pressure 70 mm[Hg] Heladio Madsen MD Work Phone: [facility] 09-06-2022 10:55-0500 Heart rate 72 /min Heladio Madsen MD Work Phone: [facility] 09-06-2022 10:55-0500 SaO2% (BldA) [Mass fraction] 97 % Heladio Madsen MD Work Phone: [facility] 09-06-2022 10:55-0500 Systolic blood pressure 150 mm[Hg] Heladio Madsen MD Work Phone: [facility] 03-15-2022 13:56-0400 Diastolic blood pressure 80 mm[Hg] Debo Torresone PA-C Work Phone: [facility] 03-15-2022 13:56-0400 Heart rate 92 /min Debo Torresone PA-C Work Phone: [facility] 03-15-2022 13:56-0400 Respiratory rate 22 /min Debo Prete PA-C Work Phone: [facility] 03-15-2022 13:56-0400 SaO2% (BldA) [Mass fraction] 95 % Debo Preet PA-C Work Phone: [facility] 03-15-2022 13:56-0400 Systolic blood pressure 120 mm[Hg] Debo Oviedo PA-C Work Phone: [facility] 03-05-2022 14:04-0400 Body temperature 99.1 [degF] Heladio Madsen MD Work Phone: [facility] 03-05-2022 14:04-0400 Body weight 88.09 kg Heladio Madsen MD Work Phone: [facility] 03-05-2022 14:04-0400 Diastolic blood pressure 76 mm[Hg] Heladio Madsen MD Work Phone: [facility] 03-05-2022 14:04-0400 Heart rate 112 /min Heladio Madsen MD Work Phone: [facility] 03-05-2022 14:04-0400 Respiratory rate 18 /min Heladio Madsen MD Work Phone: [facility] 03-05-2022 14:04-0400 SaO2% (BldA) [Mass fraction] 94 % Heladio Madsen MD Work Phone: [facility] 03-05-2022 14:04-0400 Systolic blood pressure 126 mm[Hg] Heladio Madsen MD Work Phone: [facility] 01-02-2022 14:33-0400 Diastolic blood pressure 84 mm[Hg] Nivia Haagen [employer] Work Phone: [facility] 01-02-2022 14:33-0400 Heart rate 76 /min Nivia Haagen [employer] Work Phone: [facility] 01-02-2022 14:33-0400 Respiratory rate 18 /min Nivia Haagen A[employer] IN[employer] Work Phone: [facility] 01-02-2022 14:33-0400 SaO2% (BldA) [Mass fraction] 100 % Nivia Haagen [employer] Work Phone: [facility] 01-02-2022 14:33-0400 Systolic blood pressure 130 mm[Hg] Nivia Kumar [employer] Work Phone: [facility] 12-27-2021 11:15-0400 Body height 160 cm Cesar Posey MD Work Phone: [facility] 12-27-2021 11:15-0400 Body weight 86.64 kg Cesar Posey MD Work Phone: [facility] 12-18-2021 12:30-0400 Diastolic blood pressure 83 mm[Hg] Dario Gregg MD Work Phone: [facility] 12-18-2021 12:30-0400 Heart rate 71 /min Dario Gregg MD Work Phone: [facility] 12-18-2021 12:30-0400 Respiratory rate 16 /min Dario Gregg MD Work Phone: [facility] 12-18-2021 12:30-0400 SaO2% (BldA) [Mass fraction] 100 % Dario Gregg MD Work Phone: [facility] 12-18-2021 12:30-0400 Systolic blood pressure 140 mm[Hg] Dario Gregg MD Work Phone: [facility] 12-18-2021 12:00-0400 Body temperature 96.8 [degF] Dario Gregg MD Work Phone: [facility] 12-18-2021 10:59-0400 Body height 160 cm Dario Gregg MD Work Phone: [facility] 12-18-2021 10:59-0400 Body weight 87.09 kg Dario Gregg MD Work Phone: [facility] 11-27-2021 13:34-0400 Body height 160 cm Pacc 1 Work Phone: [facility] 11-27-2021 13:34-0400 Body temperature 97.39 [degF] Pacc 1 Work Phone: [facility] 11-27-2021 13:34-0400 Body weight 87.09 kg Pacc 1 Work Phone: [facility] 11-27-2021 13:34-0400 Diastolic blood pressure 82 mm[Hg] Pacc 1 Work Phone: [facility] 11-27-2021 13:34-0400 Heart rate 76 /min Pacc 1 Work Phone: [facility] 11-27-2021 13:34-0400 Respiratory rate 18 /min Pacc 1 Work Phone: [facility] 11-27-2021 13:34-0400 SaO2% (BldA) [Mass fraction] 96 % Pacc 1 Work Phone: [facility] 11-27-2021 13:34-0400 Systolic blood pressure 150 mm[Hg] Pacc 1 Work Phone: [facility] Encounters Encounter Date Encounter Type Care Provider Facility Start: 07-31-2023 Telephone encounter Heladio Madsen MD Work Phone: [facility] Procedures Date Procedure Procedure Detail Performing Clinician Start: 09-06-2022 [employer] COVID-19 BIVALENT BOOSTER VACCINE, AGE 12+ YR Heladio Madsen MD Work Phone: Start: 09-06-2022 Ecg routine ecg w/least 12 lds i&r only Heladio Madsen MD Work Phone: Start: 07-13-2022 Hemoglobin A1c/Hemoglobin.total in Blood Heladio Madsen MD Work Phone: Start: 07-13-2022 Lipid panel Heladio Madsen MD Work Phone: Start: 07-13-2022 MICROALBUMIN/CREATININE RATIO Heladio Madsen MD Work Phone: Start: 03-15-2022 End: 03-15-2022 Mammography Heladio Madsen MD Work Phone: Start: 03-05-2022 Adult depression screening assessment Heladio Madsen MD Work Phone: Start: 12-18-2021 Colon ca scrn not hi rsk ind Elena Ibarra PA-C Work Phone: Start: 12-18-2021 Esophagogastroduodenoscopy transoral diagnostic Elena Ibarra PA-C Work Phone: Start: 12-18-2021 End: 12-18-2021 Gluc bld gluc mntr dev cleared fda spec home use Cesar Pineda MD Work Phone: Start: 12-18-2021 Colonoscopy Dario Gregg MD Work Phone: Start: 06-21-2021 Adult depression screening assessment Argenis Jewell RN Start: 09-07-2020 Mammography Argenis Jewell RN Start: 07-13-2019 Colonoscopy Argenis Jewell RN Plan of Treatment Date Care Activity Detail Author Start: 12-19-2031 Colonoscopy COLONOSCOPY [facility] Start: 12-19-2031 COLORECTAL CANCER SCREENING COLORECTAL CANCER SCREENING [facility] Start: 07-13-2029 Colonoscopy COLONOSCOPY [facility] Start: 07-13-2029 COLORECTAL CANCER SCREENING COLORECTAL CANCER SCREENING [facility] Start: 09-06-2023 ANNUAL PCP TEAM CHRONIC DISEASE VISIT ANNUAL PCP TEAM CHRONIC DISEASE VISIT [facility] Start: 07-13-2023 Hepatitis B screening URINE ALBUMIN:CREATININE RATIO [facility] Start: 07-06-2023 ANNUAL PCP TEAM CHRONIC DISEASE VISIT ANNUAL PCP TEAM CHRONIC DISEASE VISIT [facility] Start: 06-14-2023 Hepatitis C antibody, confirmatory test DILATED RETINAL EXAM [facility] Start: 04-26-2023 Covid-19 Vaccine ( season) Covid-19 Vaccine ( season) [facility] Start: 04-26-2023 Influenza vaccination Influenza Vaccine (Season Ended) [facility] Start: 03-15-2023 Mammography [facility] Start: 03-05-2023 Adult depression screening assessment DEPRESSION SCREENING [facility] Start: 03-05-2023 ANNUAL PCP TEAM CHRONIC DISEASE VISIT ANNUAL PCP TEAM CHRONIC DISEASE VISIT [facility] Start: 03-05-2023 BP CONTROLLED (<130/80) BP CONTROLLED (<130/80) [facility] Start: 01-28-2023 BP CONTROLLED (<130/80) BP CONTROLLED (<130/80) [facility] Start: 01-10-2023 Hemoglobin A1c/Hemoglobin.total in Blood HBA1C [facility] Start: 01-04-2023 COVID-19 VACCINE (5 - Pfizer series) COVID-19 VACCINE (5 - Pfizer series) [facility] Start: 01-03-2023 End: 03-05-2023 Hemoglobin A1c in Blood HGB A1C Lab Routine Controlled type 2 diabetes mellitus without complication, without long-term current use of insulin (HCC) Expected: 01/03/2023, Expires: 03/05/2023 [facility] Work Phone: Immunizations Immunization Date Immunization Notes Care Provider Fa cili 09-07-2022 COVID-19 booster vaccine, age 12+ yr, bivalent (PFIZER[employer]ION[employer]) Heladio Madsen MD Work Phone: [facility] 09-06-2022 COVID-19 booster vaccine, age 12+ yr, bivalent (PFIZER-BIONTECH) Argenis Jewell RN Work Phone: [facility] 05-05-2021 influenza, high-dose , quadrivalent vaccine (FLUZONE HIGH DOSE QUADRIVALENT) Argenis Jewell RN [facility] 05-05-2021 influenza virus vacc ine, unspecified formulation Claudia Merchant Work Phone: [facility] [employer] 01-10-2021 COVID-19 vaccine, ag e 12+ yr (PFIZER-BIONTECH - PURPLE TOP) Argenis Jewell RN [facility] 12-20-2020 COVID-19 vaccine, ag e 12+ yr (PFIZER-BIONTECH - PURPLE TOP) Argenis Jewell RN [facility] 06-24-2020 influenza, seasonal, injectable, preservative free Heladio Madsen MD Work Phone: [facility] 04-25-2020 influenza, high-dose , quadrivalent vaccine (FLUZONE HIGH DOSE QUADRIVALENT) Argenis Jewell RN [facility] Work Phone: 06-01-2019 influenza, high dose seasonal, preservative-free Argenis Jewell RN [facility] 06-12-2018 influenza, high dose seasonal, preservative-free Argenis Jewell RN [facility] 06-14-2016 influenza, high dose seasonal, preservative-free Argenis Jewell RN [facility] Work Phone: 05-30-2016 influenza, seasonal, injectable, preservative free Heladio Madsen MD Work Phone: [facility] 09-16-2015 pneumococcal conjuga te vaccine, 13 valent Argenis Jewell RN [facility] 06-02-2015 influenza, high dose seasonal, preservative-free Argenis Jewell RN [facility] 05-25-2015 influenza, seasonal, injectable, preservative free Heladio Madsen MD Work Phone: [facility] 06-25-2014 influenza, injectabl e, quadrivalent, preservative free Argenis Jewell RN [facility] 06-25-2014 pneumococcal polysaccharide vaccine, 23 valent Argenis Jewell RN [facility] 08-24-2013 influenza virus vacc ine, unspecified formulation Argenis Jewell RN [facility] 05-28-2012 influenza virus vacc ine, unspecified formulation Argenis Jewell RN [facility] 09-14-2011 influenza virus vacc ine, unspecified formulation Argenis Jewell RN [facility] Work Phone: 08-26-2008 pneumococcal polysaccharide vaccine, 23 valent Argenis Jewell RN [facility] Work Phone: Payers Date Payer Category Payer Medicare [id number] 2018 Medicaid [id number] 2018 Medicare [id number] 2018 Medicare [id number] Social History Date Type Detail Facility Start: 05-05-2021 End: 09-06-2022 Tobacco smoking status NHIS Ex-smoker [facility] Start: 1964 End: 04-24-2021 History of [facility] use [facility] [facility] Start: 1964 End: 04-24-2021 History of tobacco use Cigarette Smoker [facility] Start: 05-05-2021 End: 09-08-2022 Cigarettes smoked current (pack per day) - Reported 1 [facility] Start: 05-05-2021 End: 09-06-2022 Tobacco use and exposure Smokeless tobacco non-user [facility] Start: 11-07-2021 End: 09-10-2022 Alcohol intake Current drinker of alcohol (finding) [facility] Start: 08-15-2020 End: 07-06-2022 History SDOH Social Connections Phone 5 [facility] Start: 08-15-2020 End: 07-06-2022 History SDOH Social Connections Get Together 1 [facility] Start: 08-15-2020 End: 07-06-2022 History SDOH Social Connections Tenriism 2 [facility] Start: 08-15-2020 End: 07-06-2022 History SDOH Physical Activity DPW 0 [facility] Start: 08-15-2020 Education 12 [facility] Start: 05-05-2021 End: 09-06-2022 Tobacco Comment wearing patch [facility] Start: 1950 Sex Assigned At Female [facility] Work Phone: Start: 10-28-2021 End: 11-01-2022 Exposure to SARS-CoV-2 (event) Not sure [facility] Work Phone: Start: 12-26-2021 End: 02-13-2022 Exposure to SARS-CoV-2 (event) Unable to assess [facility] Work Phone: Start: 07-06-2022 History SDOH Financial 4 [facility] Start: 1950 Sex Assigned At Not on file [facility] Start: 07-06-2022 End: 09-08-2022 Social connection and isolation panel [facility] Do you belong to any clubs or organizations such as jain groups, unions, fraternal or athletic groups, or school groups? No [facility] Are you now , , , , never or living with a partner? [facility] How often to you hav e a drink containing alcohol? Never [facility] How many standard dr inks containing alcohol do you have on a typical day? Patient does not drink [facility] How hard is it for y ou to pay for the very basics like food, housing, medical care, and heating Not very hard [facility] Do you feel stress - tense, restless, nervous, or anxious, or unable to sleep at night because your mind is troubled all the time - these days [OSQ] Only a little [facility] (I/We) worried wheth er (my/our) food would run out before (I/we) got money to buy more. Never true [facility] Start: 01-22-2019 Gender identity Identifies as female gender (finding) [facility] Work Phone: Start: 01-22-2019 Sexual orientation Heterosexual (finding) [facility] Work Phone: Medical Equipment Procedure Code Equipment Code Equipment Origin al Text Equipment Identifier Dates Start: 04-08-2021 Goals Date Patient Goal Desired Activity /State Personal health goal Clinical Notes 03-21-2021 to 07-31-2023 Telephone Encounter - Marlon Sung - 07/31/2023 10:21 AM ESTTelephone Encounter - Heladio Madsen MD - 07/31/2023 10:16 AM ESTTelephone Encounter - Jeanna Reynoso RN - 07/31/2023 10:03 AM EST Note Date & Type Note Facility 07-31-2023 Miscellaneous Notes Dinah at Hospice notified. Marlon Sung Hospice can continue to follow if they are willing. Elena ALEXIS from [facility] calls to report that patient is discharging home today with [facility]. Elena asking if provider would be willing to follow patient or should Hospice follow patient? Please call back [phone] which is Hospice triage line, can leave message with nurse who answers. Please review and advise, Jeanna Reynoso RN documented in this encounter [facility] 05-20-2023 Miscellaneous Notes Faxed as requested. Carlota John MA Type of form: Medical Necessity Form received via fax When form is completed, Fax form to [facility] Form has been forwarded to Physician Desk: Dr. Grace Pabon Ma documented in this encounter [facility] 04-24-2023 Note Patient Outreach (IN TMMN) TAMIKO DIAMOND ([id number]) 1950 F CHT Date Time Provider Department 04/24/23 HELADIO MADSEN During your visit today, we recorded the following information about you: Allergies As of Date: 04/24/2023 Noted Allergy Reaction NEURONTIN (GABAPENTIN) 08/14/2005 1 - Mental Status Change Comments: Slurred speech, It was like I was drunk. No seizures. AVELOX (MOXIFLOXACIN HCL) 08/14/2005 2 - Rash WELLBUTRIN (BUPROPION HCL) 06/12/2005 4 - Hives 9 - Itching BUPROPION 04/07/2019 4 - Hives Date Reviewed: 09/10/2022 Reviewed by: Juliana Link LPN - Fully Assessed Visit Diagnosis:Encounter for screening mammogram for breast cancer [Z12.31] Order(s):[facility] SCREENING [[id number]] Order #: [id number] FUTURE Prescriptions as of 04/29/2023 - blood sugar diagnostic (ONETOUCH VERIO TEST STRIPS) test strip Test blood sugar(s) 2-3 times daily. Dx: Type 2 DM - Uncontrolled E11.65 Insulin: No - atorvastatin (LIPITOR) 80 mg tablet Take 1 tablet by mouth daily at bedtime. - traZODone (DESYREL) 100 mg tablet Take 1 tablet by mouth daily at bedtime. - furosemide (LASIX) 20 mg tablet Take 1 tablet by mouth once daily. - apixaban (ELIQUIS) 5 mg tab(s) Take 1 tablet by mouth once daily. - nicotine (NICODERM) 21 mg/24 hr Apply 1 Patch as directed every 24 hours. - oxyCODONE IR (ROXICODONE) 5 mg immediate release tablet Take 5 mg by mouth. - azithromycin (ZITHROMAX Z-FANNIE) 250 mg tablet Take 1 tablet by mouth once daily. - calcium-cholecalciferol, D3, (OSCAL+D 250) 250 mg-3.125 mcg (125 unit) per tablet Take 1 tablet by mouth twice daily. - Ibandronate (BONIVA) 150 mg tablet Take 1 tablet by mouth once every month. Take in the am with full glass of water on an empty stomach; do NOT eat or lie down for next 30 minutes. - varenicline (CHANTIX) 1 mg tablet Take 1 tablet by mouth twice daily. - insulin glargine (LANTUS SOLOSTAR U-100 INSULIN) 100 unit/mL (3 mL) Per sliding scale. - lancets (ONE TOUCH DELICA) 33 gauge Test blood sugar(s) 1 daily. Dx: Type 2 DM - Controlled E11.9 Insulin: No - vhmjlvloibo-bddftmqgs-kbxupmlj (TRELEGY ELLIPTA) 100-62.5-25 mcg inhalation powder Inhale 1 Puff as instructed once daily. - rOPINIRole (REQUIP) 2 mg tablet Take 1 tablet by mouth daily at bedtime. - losartan (COZAAR) 50 mg tablet Take 1 tablet by mouth once daily. - sertraline (ZOLOFT) 50 mg tablet Take 1 tablet by mouth once daily. - pramipexole (MIRAPEX) 1.5 mg tablet Take 1 tablet by mouth daily at bedtime. - albuterol (PROVENTIL) 2.5 mg /3 mL (0.083 %) nebulizer solution Use 3 mL via nebulizer every 4 hours as needed for wheezing/shortness of breath. - aspirin 81 mg cap Take by mouth. - Lancets lancets Test blood sugar(s) bid times daily. Dx: Type 2 DM - Controlled E11.9 Insulin: Yes - blood sugar diagnostic (BLOOD GLUCOSE TEST) test strip Test blood sugar(s) 2 times daily. Dx: Type 2 DM - Controlled E11.9 Insulin: No - ipratropium-albuterol (DUONEB) 0.5 mg-3 mg(2.5 mg base)/3 mL nebu Inhale 3 mL as instructed every 4 hours as needed for wheezing/shortness of breath. - PULSE OXIMETER [facility] Use to check oxygen saturation. - OXYGEN, HOME THERAPY, 2 L/min by Nasal Cannula route daily at bedtime. - COMPOUNDED PRESCRIPTION Bipap mask and tubing. - COMPOUNDED PRESCRIPTION Adjust bilevel PAP to setting of 16/10 cmH2O with heated humidification - COMPOUNDED PRESCRIPTION Initiate BiPAP @ 14/8 cm of water with humidification. Mask (per patient preference) optional chin strap (if indicated) , filters, tubing, humidifier and lifetime supplies. Dx. 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] Tobacco use disorder [F17.200] 02/28/2006 Restless leg syndrome [G25.81] 03/12/2011 Mastalgia [N64.4] 09/04/2011 11/12/2013 Hyperglycemia [R73.9] 05/28/2012 01/02/2017 Chronic rhinitis [J31.0] 11/05/2012 Fatigue [R53.83] 12/01/2012 11/12/2013 Snoring [R06.83] 12/01/2012 11/12/2013 SHANA (obstructive sleep apnea) [G47.33] 12/17/2012 Tear of meniscus of left knee [S83.207A] 02/16/2013 10/14/2015 Pain in joint, lower leg [M25.569] 05/01/2013 11/12/2013 Rt VATS Wedge, then RULobectomy [R91.1] 10/20/2013 10/14/2015 DVT prophylaxis [Z79.899] 10/23/2013 11/12/2013 DISPOSITION AND FOLLOW-UP [V999.01] 10/23/2013 11/12/2013 Tobacco abuse [Z72.0] 10/23/2013 11/12/2013 COPD (chronic obstructive pulmonary disease) (H*10/23/2013 Acute postoperative pain [G89.18] 10/23/2013 11/12/2013 Atelectas (more content not included)... [facility] 01-25-2023 Miscellaneous Notes Faxed as requested. Printed. Elena SW with [facility] calls to report patient has been selected for jury duty and is unable to participate. Elena asking if provider would write a letter to [facility] [employer] to excuse her. Fax number is [phone]. Ching Dobson RN documented in this encounter [facility] 11-23-2022 Miscellaneous Notes Shayla notified. She verbalized understanding. Marlon Sung LPN ? I dont understand the question. I believe she was discharged from on of her facitilties at one point with this. I would continue what she is using. Shayla with Hospice calls to clarify Humalog insulin orders. Patient not noted to be currently on Humalog insulin. Noted order for Lantus per sliding scale but no sliding scale. Shayla requesting call back at [phone]. Please review and advise, Ching Dobson RN documented in this encounter [facility] 11-19-2022 Miscellaneous Notes Patient returned call and verbalizes understanding of message below. Pt states she will need to call back in to reschedule her current virtual appt to a face to face visit as recommended, due to transportation issues. Annalise Dodge RN Left message for patient that would need visit. Needs a face to face to do Last office visit 09/06/22, no mention of pt difficulty walking or ambulating, nothing dicussed regarding need for motorized wheelchair. Do you want pt to schedule appt to discuss? Argenis Kramer Ma Patient wants to know if Dr. Madsen can place an order for an electric wheelchair. Said she can no longer get round her house. Please fax to [facility] at [phone]. Please advise if approved and sent. [phone]. documented in this encounter [facility] 11-12-2022 Note HNO ID: [id number] Author: Maile Lucero RN Service: ? Author Type: Registered Nurse Type: Progress Notes Filed: 11/12/2022 4:40 PM Note Text: [facility] TELEPHONIC OUTREACH Provider Action/FYI: - copd - per pt, she is in hospice as of Saturday - unsure of what company - per pt, she would still like to be followed by Dr. Madsen/ les assured her that was okay - denies needs/ agrees to call with concerns Contact made with patient: Yes Patient identified by name and . Discussed care with patient It?s nice talking to you again. As a reminder, this is our bi-weekly check-in where I will be asking you questions about your health. This will only take a few minutes of your time. Is this a good time? No - today is not a good time for the patient. Agree on a call back time and connect with the patient then. If applicable, update the next patient outreach date using the Track Pt Outreach. End outreach [facility] 11-12-2022 Note Patient Outreach (AM BC) TAMIKO DIAMOND ([id number]) 1950 F CHT Date Time Provider Department 11/12/22 MAILE LUCERO During your visit today, we recorded the following information about you: Maile Lucero RN 11/12/2022 4:40 PM Signed [facility] TELEPHONIC OUTREACH Provider Action/FYI: - copd - per pt, she is in hospice as of Saturday - unsure of what company - per pt, she would still like to be followed by Dr. Madsen/ les assured her that was okay - denies needs/ agrees to call with concerns Contact made with patient: Yes Patient identified by name and . Discussed care with patient It?s nice talking to you again. As a reminder, this is our bi-weekly check-in where I will be asking you questions about your health. This will only take a few minutes of your time. Is this a good time? No - today is not a good time for the patient. Agree on a call back time and connect with the patient then. If applicable, update the next patient outreach date using the Track Pt Outreach. End outreach Allergies As of Date: 11/12/2022 Noted Allergy Reaction NEURONTIN (GABAPENTIN) 08/14/2005 1 - Mental Status Change Comments: Slurred speech, It was like I was drunk. No seizures. AVELOX (MOXIFLOXACIN HCL) 08/14/2005 2 - Rash WELLBUTRIN (BUPROPION HCL) 06/12/2005 4 - Hives 9 - Itching BUPROPION 04/07/2019 4 - Hives Date Reviewed: 09/10/2022 Reviewed by: Juliana Link LPN - Fully Assessed Reason for Visit: cdm [Other] Cmt: Telephonic outreach Prescriptions as of 11/12/2022 - blood sugar diagnostic (ONETOUCH VERIO TEST STRIPS) test strip Test blood sugar(s) 2-3 times daily. Dx: Type 2 DM - Uncontrolled E11.65 Insulin: No - atorvastatin (LIPITOR) 80 mg tablet Take 1 tablet by mouth daily at bedtime. - traZODone (DESYREL) 100 mg tablet Take 1 tablet by mouth daily at bedtime. - furosemide (LASIX) 20 mg tablet Take 1 tablet by mouth once daily. - apixaban (ELIQUIS) 5 mg tab(s) Take 1 tablet by mouth once daily. - nicotine (NICODERM) 21 mg/24 hr Apply 1 Patch as directed every 24 hours. - oxyCODONE IR (ROXICODONE) 5 mg immediate release tablet Take 5 mg by mouth. - azithromycin (ZITHROMAX Z-FANNIE) 250 mg tablet Take 1 tablet by mouth once daily. - calcium-cholecalciferol, D3, (OSCAL+D 250) 250 mg-3.125 mcg (125 unit) per tablet Take 1 tablet by mouth twice daily. - Ibandronate (BONIVA) 150 mg tablet Take 1 tablet by mouth once every month. Take in the am with full glass of water on an empty stomach; do NOT eat or lie down for next 30 minutes. - varenicline (CHANTIX) 1 mg tablet Take 1 tablet by mouth twice daily. - insulin glargine (LANTUS SOLOSTAR U-100 INSULIN) 100 unit/mL (3 mL) Per sliding scale. - lancets (ONE TOUCH DELICA) 33 gauge Test blood sugar(s) 1 daily. Dx: Type 2 DM - Controlled E11.9 Insulin: No - tbrejltchuy-kzphnvalx-dibfohob (TRELEGY ELLIPTA) 100-62.5-25 mcg inhalation powder Inhale 1 Puff as instructed once daily. - rOPINIRole (REQUIP) 2 mg tablet Take 1 tablet by mouth daily at bedtime. - losartan (COZAAR) 50 mg tablet Take 1 tablet by mouth once daily. - sertraline (ZOLOFT) 50 mg tablet Take 1 tablet by mouth once daily. - pramipexole (MIRAPEX) 1.5 mg tablet Take 1 tablet by mouth daily at bedtime. - albuterol (PROVENTIL) 2.5 mg /3 mL (0.083 %) nebulizer solution Use 3 mL via nebulizer every 4 hours as needed for wheezing/shortness of breath. - aspirin 81 mg cap Take by mouth. - Lancets lancets Test blood sugar(s) bid times daily. Dx: Type 2 DM - Controlled E11.9 Insulin: Yes - blood sugar diagnostic (BLOOD GLUCOSE TEST) test strip Test blood sugar(s) 2 times daily. Dx: Type 2 DM - Controlled E11.9 Insulin: No - ipratropium-albuterol (DUONEB) 0.5 mg-3 mg(2.5 mg base)/3 mL nebu Inhale 3 mL as instructed every 4 hours as needed for wheezing/shortness of breath. - PULSE OXIMETER [facility] Use to check oxygen saturation. - OXYGEN, HOME THERAPY, 2 L/min by Nasal Cannula route daily at bedtime. - COMPOUNDED PRESCRIPTION Bipap mask and tubing. - COMPOUNDED PRESCRIPTION Adjust bilevel PAP to setting of 16/10 cmH2O with heated humidification - COMPOUNDED PRESCRIPTION Initiate BiPAP @ 14/8 cm of water with humidification. Mask (per patient preference) optional chin strap (if indicated) , filters, tubing, humidifier and lifetime supplies. Dx. 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 [facility] 11-09-2022 Miscellaneous Notes Faxed to [phone] done Type of form: H&P Form received via walk in When form is completed, Fax form to Kareem Curtis Form has been forwarded to Physician Desk: Dr. Grace Rojas LPN documented in this encounter [facility] 10-30-2022 Miscellaneous Notes Re faxed order Kenalog is fine. New order placed. Claudia Merchant PA-C Jillian calling back She did get the order and it looks good, however Her provider is not familiar with celestone and is not comfortable injecting it He uses kenalog Asking if kenalog can be ordered instead Will need a new order is ok with it Orders faxed to number provided Order placed. Claudia Merchant PA-C Yoselyn from [facility] calling [phone] Pt is schedule there for her injection, however, they do not do it under US, they do it in IR They need a new order-IR joint injection and/or shoulder injection- not sure what is under [phone] fax Order written and faxed. Claudia Merchant PA-C Patient called in and said Dr. Posey previously wrote her an order for an US guided injection for her left shoulder. She is wanting to go to [facility] for it this time, is asking for a new order to be sent to: [facility] documented in this encounter [facility] 10-23-2022 Miscellaneous Notes Pt called and is notified of providers message and instructions. Pt voices understanding. Elena Castellano RN Stick with the patch Pt called and is notified of providers message and instructions. Pt states she wasn't going to use both she was going to switch to the gum. Please call and advise. Elena Castellano RN I would not use both. Just keep working on it. Patient calling with request for script for nicotine gum for smoking cessation. She says she has tried the Nicoderm patch for the past week and it does take the edge off but she is still having cravings. Someone told her the gum works better. Can she use both at the same time? [facility]. Irene Yu RN documented in this encounter [facility] 10-18-2022 Note Patient Outreach (AC CC) TAMIKO DIAMOND ([id number]) 1950 F T Date Time Provider Department 10/18/22 PCP (HISTORICAL) [facility] During your visit today, we recorded the following information about you: Mercedes Mroocho 10/18/2022 10:00 AM Signed [facility] NAVIGATION OUTREACH Action/ call to pt, she wants to wait to see if [facility] can get her in because it is closer Patient Identified by Name and : YES, via phone Outreach Outcome/Action Spoke to patient / parent / legal guardian: Patient declined Patient will return the call or ask for return call Did you use a PCP flex slot to schedule this appointment? No Reason for Outreach Care Gap or Scheduling/Wellness visits Payer: Payor: [employer] MEDICARE / Plan: [employer] MEDICARE / Product Type: Medicare / Care Gap Reviewed:: Specialty Scheduling Reminder: Reminder note to check Health Maintenance for items below Health Maintenance items due: HEPATITIS C SCREENING Never done BP CONTROLLED (<130/80) Never done DTAP,TDAP,TD(1 - Tdap) Never done ALPHA-1 ANTITRYPSIN DEFICIENCY SCREENING Never done SHINGRIX VACCINE(1 of 2) Never done DIABETIC FOOT EXAM due on 12/30/2019 ADVANCE DIRECTIVE DISCUSSION Never done LDL CHOLESTEROL due on 11/07/2022 Navigation Signature: Mercedes Rashawn October 18, 2022 9:59 AM Allergies As of Date: 10/18/2022 Noted Allergy Reaction NEURONTIN (GABAPENTIN) 08/14/2005 1 - Mental Status Change Comments: Slurred speech, It was like I was drunk. No seizures. AVELOX (MOXIFLOXACIN HCL) 08/14/2005 2 - Rash WELLBUTRIN (BUPROPION HCL) 06/12/2005 4 - Hives 9 - Itching BUPROPION 04/07/2019 4 - Hives Date Reviewed: 09/10/2022 Reviewed by: Juliana Link LPN - Fully Assessed Prescriptions as of 10/18/2022 - atorvastatin (LIPITOR) 80 mg tablet Take 1 tablet by mouth daily at bedtime. - traZODone (DESYREL) 100 mg tablet Take 1 tablet by mouth daily at bedtime. - furosemide (LASIX) 20 mg tablet Take 1 tablet by mouth once daily. - apixaban (ELIQUIS) 5 mg tab(s) Take 1 tablet by mouth once daily. - nicotine (NICODERM) 21 mg/24 hr Apply 1 Patch as directed every 24 hours. - oxyCODONE IR (ROXICODONE) 5 mg immediate release tablet Take 5 mg by mouth. - azithromycin (ZITHROMAX Z-FANNIE) 250 mg tablet Take 1 tablet by mouth once daily. - calcium-cholecalciferol, D3, (OSCAL+D 250) 250 mg-3.125 mcg (125 unit) per tablet Take 1 tablet by mouth twice daily. - Ibandronate (BONIVA) 150 mg tablet Take 1 tablet by mouth once every month. Take in the am with full glass of water on an empty stomach; do NOT eat or lie down for next 30 minutes. - varenicline (CHANTIX) 1 mg tablet Take 1 tablet by mouth twice daily. - insulin glargine (LANTUS SOLOSTAR U-100 INSULIN) 100 unit/mL (3 mL) Per sliding scale. - lancets (ONE TOUCH DELICA) 33 gauge Test blood sugar(s) 1 daily. Dx: Type 2 DM - Controlled E11.9 Insulin: No - jkxyolebeeo-dtugsrucc-wtxxwdhf (TRELEGY ELLIPTA) 100-62.5-25 mcg inhalation powder Inhale 1 Puff as instructed once daily. - rOPINIRole (REQUIP) 2 mg tablet Take 1 tablet by mouth daily at bedtime. - losartan (COZAAR) 50 mg tablet Take 1 tablet by mouth once daily. - sertraline (ZOLOFT) 50 mg tablet Take 1 tablet by mouth once daily. - pramipexole (MIRAPEX) 1.5 mg tablet Take 1 tablet by mouth daily at bedtime. - blood sugar diagnostic (ONETOUCH VERIO TEST STRIPS) test strip Test blood sugar(s) 2-3 times daily. Dx: Type 2 DM - Uncontrolled E11.65 Insulin: No - albuterol (PROVENTIL) 2.5 mg /3 mL (0.083 %) nebulizer solution Use 3 mL via nebulizer every 4 hours as needed for wheezing/shortness of breath. - aspirin 81 mg cap Take by mouth. - Lancets lancets Test blood sugar(s) bid times daily. Dx: Type 2 DM - Controlled E11.9 Insulin: Yes - blood sugar diagnostic (BLOOD GLUCOSE TEST) test strip Test blood sugar(s) 2 times daily. Dx: Type 2 DM - Controlled E11.9 Insulin: No - ipratropium-albuterol (DUONEB) 0.5 mg-3 mg(2.5 mg base)/3 mL nebu Inhale 3 mL as instructed every 4 hours as needed for wheezing/shortness of breath. - PULSE OXIMETER [facility] Use to check oxygen saturation. - OXYGEN, HOME THERAPY, 2 L/min by Nasal Cannula route daily at bedtime. - COMPOUNDED PRESCRIPTION Bipap mask and tubing. - COMPOUNDED PRESCRIPTION Adjust bilevel PAP to setting of 16/10 cmH2O with heated humidification - COMPOUNDED PRESCRIPTION Initiate BiPAP @ 14/8 cm of water with humidification. Mask (per patient preference) optional chin strap (if indicated) , filters, tubing, humidifier and lifetime supplies. Dx. SHANA 327.23 Meds Comments as of 03/27/2021: 03/27/21 The medications are managed by this patient by: PATIENT Kalie Ngo [facility] Problem List As Of Date 10/18/2022 Noted Resolved Pure hypercholesterolemia [E78.00] CHRONIC AIRWAY OBSTRUCTION NEC (more content not included)... [facility] 10-18-2022 Note HNO ID: [id number] Author: Mercedes Morocho Service: ? Author Type: ? Type: Progress Notes Filed: 10/18/2022 10:00 AM Note Text: POPULATION HEALTH NAVIGATION OUTREACH Action/ call to pt, she wants to wait to see if [facility] can get her in because it is closer Patient Identified by Name and : YES, via phone Outreach Outcome/Action Spoke to patient / parent / legal guardian: Patient declined Patient will return the call or ask for return call Did you use a PCP flex slot to schedule this appointment? No Reason for Outreach Care Gap or Scheduling/Wellness visits Payer: Payor: [employer]ARE / Plan: [employer]ARE / Product Type: Medicare / Care Gap Reviewed:: Specialty Scheduling Reminder: Reminder note to check Health Maintenance for items below Health Maintenance items due: HEPATITIS C SCREENING Never done BP CONTROLLED (<130/80) Never done DTAP,TDAP,TD(1 - Tdap) Never done ALPHA-1 ANTITRYPSIN DEFICIENCY SCREENING Never done SHINGRIX VACCINE(1 of 2) Never done DIABETIC FOOT EXAM due on 12/30/2019 ADVANCE DIRECTIVE DISCUSSION Never done LDL CHOLESTEROL due on 11/07/2022 Navigation Signature: Mercedes Morocho October 18, 2022 9:59 AM [facility] 10-18-2022 History of Present illness Narrative POPULATION HEALTH NAVIGATION OUTREACH Action/ call to pt, she wants to wait to see if [facility] can get her in because it is closer Patient Identified by Name and : YES, via phone Outreach Outcome/Action Spoke to patient / parent / legal guardian: Patient declined Patient will return the call or ask for return call Did you use a PCP flex slot to schedule this appointment? No Reason for Outreach Care Gap or Scheduling/Wellness visits Payer: Payor: [employer]ARE / Plan: [employer] [place] MEDICARE / Product Type: Medicare / Care Gap Reviewed:: Specialty Scheduling Reminder: Reminder note to check Health Maintenance for items below Health Maintenance items due: HEPATITIS C SCREENING Never done BP CONTROLLED (<130/80) Never done DTAP,TDAP,TD(1 - Tdap) Never done ALPHA-1 ANTITRYPSIN DEFICIENCY SCREENING Never done SHINGRIX VACCINE(1 of 2) Never done DIABETIC FOOT EXAM due on 12/30/2019 ADVANCE DIRECTIVE DISCUSSION Never done LDL CHOLESTEROL due on 11/07/2022 Navigation Signature: Mercedes Morocho October 18, 2022 9:59 AM documented in this encounter [facility] 10-17-2022 Miscellaneous Notes Verified dose of lasix with patient. Patient states that [facility] is waiting on these scripts in order to send her order to her for her monthly medications send this RAJIV. Patient has been identified by name and date of : Yes Requested Prescriptions Pending Prescriptions Disp Refills atorvastatin (LIPITOR) 80 mg tablet 90 tablet 1 Sig: Take 1 tablet by mouth daily at bedtime. traZODone (DESYREL) 100 mg tablet 90 tablet 1 Sig: Take 1 tablet by mouth daily at bedtime. furosemide (LASIX) 20 mg tablet 90 tablet 1 Sig: Take 2 tablets by mouth once daily. apixaban (ELIQUIS) 5 mg tab(s) 90 tablet 3 Sig: Take 1 tablet by mouth once daily. RX INSTRUCTIONS: Patient aware RX escripted to mail away pharmacy. No need to notify patient. Carlota Caceres Pss Spoke with pt's daughter Camille and and she will check with pt on the dosage and how often pt is taking the Lasix. Daughter will call back. Maria D Wiggins LPN Attempted to reach pt by phone mailbox full. Tried other number listed for pt and it rang fast busy. Try pt later. Maria D Wiggins LPN Please call patient and verify dosage. The last medication update was on 11/07 after a hospital follow-up. It looks like from the medication dispense report, she has only been taking 20 mg daily. Please verify so we can send in scripts. Pharmacy calls for refills. Please review furosemide 20 mg to see if appropriate. What is listed on pt's med chart now is a med update. Previously pt took 1 tab daily. Last OV: 09/06/22. Patient has been identified by name and date of : Yes Requested Prescriptions Pending Prescriptions Disp Refills atorvastatin (LIPITOR) 80 mg tablet 90 tablet 1 Sig: Take 1 tablet by mouth daily at bedtime. traZODone (DESYREL) 100 mg tablet 90 tablet 1 Sig: Take 1 tablet by mouth daily at bedtime. furosemide (LASIX) 20 mg tablet 90 tablet 1 Sig: Take 2 tablets by mouth once daily. RX INSTRUCTIONS: Pharmacy initiated this request. No need to notify patient. Edilia Ruelas LPN documented in this encounter [facility] 10-15-2022 Note HNO ID: [id number] Author: Jyoti Pabon Ma Service: ? Author Type: ? Type: Progress Notes Filed: 10/15/2022 12:25 PM Note Text: Patient notified. Asking for nicotine patches sent to [facility] 10-15-2022 Miscellaneous Notes Error documented in this encounter [facility] 10-15-2022 Note HNO ID: [id number] Author: Heladio Madsen MD Service: ? Author Type: Physician Type: Progress Notes Filed: 10/15/2022 9:36 AM Note Text: She would have to see an ortho and them to decide on treatments. Do we know which meds she needs? [facility] 10-10-2022 Miscellaneous Notes [facility] med list faxed to [phone]. Marlon Sung LPN Pharmacy Community Monitoring Outreach Patient indicated a medication question during Primary Care Coordination outreach. Encounter was routed to Pharmacy Medication Question Pool for follow up. Patient indicated Medication question(s) regarding: Medication Reconciliation Review The following was discussed with them: Patient needs current medication list faxed to [facility] pharmacy. Fax number is [phone]. Phone number is [phone]. Plan/Recommendations: Will route fax request to PCP team to fax current medication list to [facility]. The patient did verbalize understanding of information discussed today. I encouraged her to contact PCP office with any additional questions or concerns. Wilma Patel RPh October 10, 2022 3:27 PM documented in this encounter [facility] 10-10-2022 Note HNO ID: [id number] Author: Manjit Mcdonald RN Service: ? Author Type: Registered Nurse Type: Progress Notes Filed: 10/10/2022 1:42 PM Note Text: PRIMARY CARE COORDINATION QUICK NOTE Provider Action/FYI: Pt called requesting Dr. Madsen's office send an order to [facility] for an ultrasound guided shoulder injection. Pt stated she had been given a different doctor within [facility] to perform procedure but wanted and found a provider closer to home . Pt gave this nurse the phone number to [facility], however pt could not remember the name of the provider. Pt states he is not with [facility]. The number she gave to me, , was just the main number to the hospital. Pt states she cannot remember the department either. Routing this request to Dr. Madsen's office. Pt also needs to have a list of meds and their doses sent to [facility], patients home pharmacy. There is a question/confusion regarding the doses. Routing this request to Pharmacy. Patient verbalizes understanding. END OUTREACH Patient identified by name and date . yes [facility] 10-10-2022 Note Patient Outreach (AM [facility]) TAMIKO DIAMOND ([id number]) 1950 F CHT Date Time Provider Department 10/10/22 CONNOR TOLEDO During your visit today, we recorded the following information about you: Connor Toledo, CONNOR 10/10/2022 8:55 AM Signed PRIMARY CARE COORDINATION QUICK NOTE FYI: Pt Lm on vm of PCC Ramandeep, asking for a call back. Attempted to contact pt this morning, unable to contact but LM on VM to call PCP office if anything is needed. END OUTREACH Patient identified by name and date . Allergies As of Date: 10/10/2022 Noted Allergy Reaction NEURONTIN (GABAPENTIN) 08/14/2005 1 - Mental Status Change Comments: Slurred speech, It was like I was drunk. No seizures. AVELOX (MOXIFLOXACIN HCL) 08/14/2005 2 - Rash WELLBUTRIN (BUPROPION HCL) 06/12/2005 4 - Hives 9 - Itching BUPROPION 04/07/2019 4 - Hives Date Reviewed: 09/10/2022 Reviewed by: Juliana Link LPN - Fully Assessed Reason for Visit: Community Monitoring Outreach [Other] Cmt: CDM Check in, returning pt call. Prescriptions as of 10/10/2022 - apixaban (ELIQUIS) 5 mg tab(s) Take 5 mg by mouth once daily. - oxyCODONE IR (ROXICODONE) 5 mg immediate release tablet Take 5 mg by mouth. - azithromycin (ZITHROMAX Z-FANNIE) 250 mg tablet Take 1 tablet by mouth once daily. - calcium-cholecalciferol, D3, (OSCAL+D 250) 250 mg-3.125 mcg (125 unit) per tablet Take 1 tablet by mouth twice daily. - Ibandronate (BONIVA) 150 mg tablet Take 1 tablet by mouth once every month. Take in the am with full glass of water on an empty stomach; do NOT eat or lie down for next 30 minutes. - varenicline (CHANTIX) 1 mg tablet Take 1 tablet by mouth twice daily. - insulin glargine (LANTUS SOLOSTAR U-100 INSULIN) 100 unit/mL (3 mL) Per sliding scale. - lancets (ONE TOUCH DELICA) 33 gauge Test blood sugar(s) 1 daily. Dx: Type 2 DM - Controlled E11.9 Insulin: No - swimadchqat-ahrebfasy-trrixkub (TRELEGY ELLIPTA) 100-62.5-25 mcg inhalation powder Inhale 1 Puff as instructed once daily. - rOPINIRole (REQUIP) 2 mg tablet Take 1 tablet by mouth daily at bedtime. - losartan (COZAAR) 50 mg tablet Take 1 tablet by mouth once daily. - atorvastatin (LIPITOR) 80 mg tablet Take 1 tablet by mouth daily at bedtime. - traZODone (DESYREL) 100 mg tablet Take 1 tablet by mouth daily at bedtime. - sertraline (ZOLOFT) 50 mg tablet Take 1 tablet by mouth once daily. - pramipexole (MIRAPEX) 1.5 mg tablet Take 1 tablet by mouth daily at bedtime. - blood sugar diagnostic (ONETOUCH VERIO TEST STRIPS) test strip Test blood sugar(s) 2-3 times daily. Dx: Type 2 DM - Uncontrolled E11.65 Insulin: No - albuterol (PROVENTIL) 2.5 mg /3 mL (0.083 %) nebulizer solution Use 3 mL via nebulizer every 4 hours as needed for wheezing/shortness of breath. - aspirin 81 mg cap Take by mouth. - furosemide (LASIX) 20 mg tablet Take 2 tablets by mouth once daily. - Lancets lancets Test blood sugar(s) bid times daily. Dx: Type 2 DM - Controlled E11.9 Insulin: Yes - blood sugar diagnostic (BLOOD GLUCOSE TEST) test strip Test blood sugar(s) 2 times daily. Dx: Type 2 DM - Controlled E11.9 Insulin: No - ipratropium-albuterol (DUONEB) 0.5 mg-3 mg(2.5 mg base)/3 mL nebu Inhale 3 mL as instructed every 4 hours as needed for wheezing/shortness of breath. - PULSE [facility] Use to check oxygen saturation. - OXYGEN, HOME THERAPY, 2 L/min by Nasal Cannula route daily at bedtime. - COMPOUNDED PRESCRIPTION Bipap mask and tubing. - COMPOUNDED PRESCRIPTION Adjust bilevel PAP to setting of 16/10 cmH2O with heated humidification - COMPOUNDED PRESCRIPTION Initiate BiPAP @ 14/8 cm of water with humidification. Mask (per patient preference) optional chin strap (if indicated) , filters, tubing, humidifier and lifetime supplies. Dx. 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] Tobacco use disorder [F17.200] 02/28/2006 Restless leg syndrome [G25.81] 03/12/2011 Mastalgia [N64.4] 09/04/2011 11/12/2013 Hyperglycemia [R73.9] 05/28/2012 01/02/2017 Chronic rhinitis [J31.0] 11/05/2012 Fatigue [R53.83] 12/01/2012 11/12/2013 Snoring [R06.83] 12/01/2012 11/12/2013 SHANA (obstructive sleep apnea) [G47.33] 12/17/2012 Tear of meniscus of left knee [S83.207A] 02/16/2013 10/14/2015 Pain in joint, lower leg [M25.569] 05/01/2013 11/12/2013 Rt VATS Wedge, then RULobectomy [R91.1] 10/20/2013 10/14/2015 DVT prophylaxis [Z79.899] 10/23/2013 11/12/2013 DISPOSITION AND FOLLOW-UP [V999.01] 09/27 (more content not included)... [facility] 10-10-2022 Note Patient Outreach (AM [facility]) TAMIKO DIAMOND ([id number]) 1950 F CHT Date Time Provider Department 10/10/22 MANJIT MCDONALD During your visit today, we recorded the following information about you: Manjit Mcdonald RN 10/10/2022 1:42 PM Signed PRIMARY CARE COORDINATION QUICK NOTE Provider Action/FYI: Pt called requesting Dr. Madsen's office send an order to [facility] for an ultrasound guided shoulder injection. Pt stated she had been given a different doctor within [facility] to perform procedure but wanted and found a provider closer to home . Pt gave this nurse the phone number to [facility], however pt could not remember the name of the provider. Pt states he is not with [facility]. The number she gave to me, , was just the main number to the hospital. Pt states she cannot remember the department either. Routing this request to Dr. Madsen's office. Pt also needs to have a list of meds and their doses sent to [facility] pharmacy. There is a question/confusion regarding the doses. Routing this request to Pharmacy. Patient verbalizes understanding. END OUTREACH Patient identified by name and date . yes Heladio Madsen MD 10/15/2022 9:36 AM Signed She would have to see an ortho and them to decide on treatments. Do we know which meds she needs? Heladio Madsen MD 10/15/2022 9:36 AM Signed Addended by: HELADIO MADSEN on: 10/15/2022 09:36 AM Modules accepted: Orders Jyoti Hesterisrrael Oh 10/15/2022 12:25 PM Signed Patient notified. Asking for nicotine patches sent to Vivian Madsen MD 10/15/2022 12:36 PM Signed Addended by: HELADIO MADSEN on: 10/15/2022 12:36 PM Modules accepted: Orders Allergies As of Date: 10/10/2022 Noted Allergy Reaction NEURONTIN (GABAPENTIN) 08/14/2005 1 - Mental Status Change Comments: Slurred speech, It was like I was drunk. No seizures. AVELOX (MOXIFLOXACIN HCL) 08/14/2005 2 - Rash WELLBUTRIN (BUPROPION HCL) 06/12/2005 4 - Hives 9 - Itching BUPROPION 04/07/2019 4 - Hives Date Reviewed: 09/10/2022 Reviewed by: Juliana Link LPN - Fully Assessed Reason for Visit: community monitoring outreach [Other] Cmt: CDM pt call response Primary Visit Diagnosis:Chronic shoulder pain, unspecified laterality [M25.519, G89.29] Order(s):CONSULT TO ORTHOPAEDICS [9026] Order #: [id number]: 1 FUTURE nicotine (NICODERM) 21 mg/24 hrApply 1 Patch as directed every 24 hours.Disp: 30 PatchRfl: 2 Prescriptions as of 10/15/2022 - nicotine (NICODERM) 21 mg/24 hr Apply 1 Patch as directed every 24 hours. - apixaban (ELIQUIS) 5 mg tab(s) Take 5 mg by mouth once daily. - oxyCODONE IR (ROXICODONE) 5 mg immediate release tablet Take 5 mg by mouth. - azithromycin (ZITHROMAX Z-FANNIE) 250 mg tablet Take 1 tablet by mouth once daily. - calcium-cholecalciferol, D3, (OSCAL+D 250) 250 mg-3.125 mcg (125 unit) per tablet Take 1 tablet by mouth twice daily. - Ibandronate (BONIVA) 150 mg tablet Take 1 tablet by mouth once every month. Take in the am with full glass of water on an empty stomach; do NOT eat or lie down for next 30 minutes. - varenicline (CHANTIX) 1 mg tablet Take 1 tablet by mouth twice daily. - insulin glargine (LANTUS SOLOSTAR U-100 INSULIN) 100 unit/mL (3 mL) Per sliding scale. - lancets (ONE TOUCH DELICA) 33 gauge Test blood sugar(s) 1 daily. Dx: Type 2 DM - Controlled E11.9 Insulin: No - klsfxzqengj-jqjyssuvg-yqhdwhrp (TRELEGY ELLIPTA) 100-62.5-25 mcg inhalation powder Inhale 1 Puff as instructed once daily. - rOPINIRole (REQUIP) 2 mg tablet Take 1 tablet by mouth daily at bedtime. - losartan (COZAAR) 50 mg tablet Take 1 tablet by mouth once daily. - atorvastatin (LIPITOR) 80 mg tablet Take 1 tablet by mouth daily at bedtime. - traZODone (DESYREL) 100 mg tablet Take 1 tablet by mouth daily at bedtime. - sertraline (ZOLOFT) 50 mg tablet Take 1 tablet by mouth once daily. - pramipexole (MIRAPEX) 1.5 mg tablet Take 1 tablet by mouth daily at bedtime. - blood sugar diagnostic (ONETOUCH VERIO TEST STRIPS) test strip Test blood sugar(s) 2-3 times daily. Dx: Type 2 DM - Uncontrolled E11.65 Insulin: No - albuterol (PROVENTIL) 2.5 mg /3 mL (0.083 %) nebulizer solution Use 3 mL via nebulizer every 4 hours as needed for wheezing/shortness of breath. - aspirin 81 mg cap Take by mouth. - furosemide (LASIX) 20 mg tablet Take 2 tablets by mouth once daily. - Lancets lancets Test blood sugar(s) bid times daily. Dx: Type 2 DM - Controlled E11.9 Insulin: Yes - blood sugar diagnostic (BLOOD GLUCOSE TEST) test strip Test blood sugar(s) 2 times daily. Dx: Type 2 DM - Controlled E11.9 Insulin: No - ipratropium-albuterol (DUONEB) 0.5 mg-3 mg(2.5 mg base)/3 mL nebu Inhale 3 mL as instructed every 4 hours as needed for wheezing/shortness of breath. - PULSE OXIMETER [facility] Use to check oxygen saturation. - OXYGEN, SHONA (more content not included)... [facility] 10-10-2022 History of Present illness Narrative PRIMARY CARE COORDINATION QUICK NOTE Provider Action/FYI: Pt called [facility] Dr[facility]. Pt stated she had been given a different doctor within [facility] to perform procedure but wanted and found a provider closer to home . Pt gave this nurse the phone number to [facility], however pt could not remember the name of the provider. Pt states he is not with [facility]. The number she gave to me, , was just the main number to the hospital. Pt states she cannot remember the department either. Routing this request to Dr. Madsen's office. Pt also needs to have a list of meds and their doses sent to [facility] home pharmacy. There is a question/confusion regarding the doses. Routing this request to Pharmacy. Patient verbalizes understanding. END OUTREACH Patient identified by name and date . yes documented in this encounter [facility] 10-10-2022 Note HNO ID: [id number] Author: Connor Toledo RN Service: ? Author Type: Registered Nurse Type: Progress Notes Filed: 10/10/2022 8:55 AM Note Text: PRIMARY CARE COORDINATION QUICK NOTE FYI: Pt Lm on vm of PCC Ramandeep, asking for a call back. Attempted to contact pt this morning, unable to contact but LM on VM to call PCP office if anything is needed. END OUTREACH Patient identified by name and date . [facility] 10-09-2022 Miscellaneous Notes Form faxed. Marlon Sung LPN Form complete. Nivia Heath APRN.CNP Patient has been identified by name and date of : Yes, Provider Kumar Type of form: Confirmation of VO for Home Medical Equipment Form received via: Fax When form is completed, fax form to fax number provided. Form has been forwarded to: Provider's desk. Provider name: AWA Flowers LPN documented in this encounter [facility] 09-26-2022 Miscellaneous Notes ----- Message from RT Ruth(R) sent at 09/26/2022 3:49 PM EST ----- Regarding: MRI Order Hi Dr. Madsen, I just wanted to make sure you didn't want contrast with this pt, since she has a history of Lung Ca? If so, then can you place another order for Brain WWO? Thanks, Jyoti BOLDEN(R)(MRI) Sammi with [facility] calls to inform pcp that pt is going to [facility] after being discharged from [facility]. Edilia Ruelas LPN documented in this encounter [facility] 09-26-2022 Miscellaneous Notes Patient call in for neck pain with stiff neck and headache. Nurse Triage assessment completed with protocol recommending for disposition of Go to ED now. Care advice reviewed with patient, patient stated understanding. Note patient was discharged from assisted yesterday. Reason for Disposition [1] Stiff neck (can't put chin to chest) AND [2] headache Answer Assessment - Initial Assessment Questions 1. ONSET: Pain began 4 nights ago in assisted 2. LOCATION: [place] on left side of neck 3. PATTERN Constant 4. SEVERITY: Rates Pain 9 out of 10 when moving; 8 out of 10 not moving. 5. RADIATION: Denies radiation 6. CORD SYMPTOMS: Denies numbness or weakness to bilateral arms/legs 7. CAUSE: meningitis 8. NECK OVERUSE: Denies neck overuse 9. OTHER SYMPTOMS: Headache; states that temperature is 98.5 but she normally runs 97.6, neck is stiff; Denies chest pain, difficulty, or neck swelling Protocols used: Neck Pain or Rfqrnfbyn-LGZGA-GM documented in this encounter [facility] 09-19-2022 Note Patient Outreach (AM [facility]) TAMIKO DIAMOND ([id number]) 1950 F CHT Date Time Provider Department 09/19/22 ARGENIS JEWELL During your visit today, we recorded the following information about you: Argenis Jewell RN 09/19/2022 10:18 AM Signed INSIGHT M TELEPHONIC OUTREACH Provider Action/FYI: No answer, VMB is full. Contact made with patient: No - Unable to leave message Allergies As of Date: 09/19/2022 Noted Allergy Reaction NEURONTIN (GABAPENTIN) 08/14/2005 1 - Mental Status Change Comments: Slurred speech, It was like I was drunk. No seizures. AVELOX (MOXIFLOXACIN HCL) 08/14/2005 2 - Rash WELLBUTRIN (BUPROPION HCL) 06/12/2005 4 - Hives 9 - Itching BUPROPION 04/07/2019 4 - Hives Date Reviewed: 09/10/2022 Reviewed by: Juliana Link LPN - Fully Assessed Reason for Visit: Community Monitoring Outreach [Other] Cmt: [facility] Prescriptions as of 09/19/2022 - apixaban (ELIQUIS) 5 mg tab(s) Take 5 mg by mouth once daily. - oxyCODONE IR (ROXICODONE) 5 mg immediate release tablet Take 5 mg by mouth. - azithromycin (ZITHROMAX Z-FANNIE) 250 mg tablet Take 1 tablet by mouth once daily. - calcium-cholecalciferol, D3, (OSCAL+D 250) 250 mg-3.125 mcg (125 unit) per tablet Take 1 tablet by mouth twice daily. - Ibandronate (BONIVA) 150 mg tablet Take 1 tablet by mouth once every month. Take in the am with full glass of water on an empty stomach; do NOT eat or lie down for next 30 minutes. - varenicline (CHANTIX) 1 mg tablet Take 1 tablet by mouth twice daily. - insulin glargine (LANTUS SOLOSTAR U-100 INSULIN) 100 unit/mL (3 mL) Per sliding scale. - lancets (ONE TOUCH DELICA) 33 gauge Test blood sugar(s) 1 daily. Dx: Type 2 DM - Controlled E11.9 Insulin: No - osikmmmzdid-qtjteaemh-khplfsgo (TRELEGY ELLIPTA) 100-62.5-25 mcg inhalation powder Inhale 1 Puff as instructed once daily. - rOPINIRole (REQUIP) 2 mg tablet Take 1 tablet by mouth daily at bedtime. - losartan (COZAAR) 50 mg tablet Take 1 tablet by mouth once daily. - atorvastatin (LIPITOR) 80 mg tablet Take 1 tablet by mouth daily at bedtime. - traZODone (DESYREL) 100 mg tablet Take 1 tablet by mouth daily at bedtime. - sertraline (ZOLOFT) 50 mg tablet Take 1 tablet by mouth once daily. - pramipexole (MIRAPEX) 1.5 mg tablet Take 1 tablet by mouth daily at bedtime. - blood sugar diagnostic (ONETOUCH VERIO TEST STRIPS) test strip Test blood sugar(s) 2-3 times daily. Dx: Type 2 DM - Uncontrolled E11.65 Insulin: No - albuterol (PROVENTIL) 2.5 mg /3 mL (0.083 %) nebulizer solution Use 3 mL via nebulizer every 4 hours as needed for wheezing/shortness of breath. - aspirin 81 mg cap Take by mouth. - furosemide (LASIX) 20 mg tablet Take 2 tablets by mouth once daily. - Lancets lancets Test blood sugar(s) bid times daily. Dx: Type 2 DM - Controlled E11.9 Insulin: Yes - blood sugar diagnostic (BLOOD GLUCOSE TEST) test strip Test blood sugar(s) 2 times daily. Dx: Type 2 DM - Controlled E11.9 Insulin: No - ipratropium-albuterol (DUONEB) 0.5 mg-3 mg(2.5 mg base)/3 mL nebu Inhale 3 mL as instructed every 4 hours as needed for wheezing/shortness of breath. - PULSE OXIMETER [facility] Use to check oxygen saturation. - OXYGEN, HOME THERAPY, 2 L/min by Nasal Cannula route daily at bedtime. - COMPOUNDED PRESCRIPTION Bipap mask and tubing. - COMPOUNDED PRESCRIPTION Adjust bilevel PAP to setting of 16/10 cmH2O with heated humidification - COMPOUNDED PRESCRIPTION Initiate BiPAP @ 14/8 cm of water with humidification. Mask (per patient preference) optional chin strap (if indicated) , filters, tubing, humidifier and lifetime supplies. Dx. SHANA 327.23 Facility-Administered Medications as of 09/19/2022 - perflutren lipid microspheres 1.3 mL in NaCl (PF) 0.9% 10 mL injection (DEFINITY) - sodium chloride 0.9 % (flush) 10 mL (BD POSIFLUSH) Meds Comments as of 03/27/2021: 03/27/21 The medications are managed by this patient by: PATIENT Kalie Ngo Formerly [facility] Problem List As Of Date 09/19/2022 Noted Resolved Pure hypercholesterolemia [E78.00] CHRONIC AIRWAY OBSTRUCTION NEC [J44.9] 10/14/2015 Unspecified asthma(493.90) [J45.909] 11/21/2016 Osteoporosis, unspecified [M81.0] 03/21/2021 GENERAL OSTEOARTHROSIS [M15.9] 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 [facility] 09-19-2022 Note HNO ID: [id number] Author: Argenis Jewell RN Service: ? Author Type: Registered Nurse Type: Progress Notes Filed: 09/19/2022 10:18 AM Note Text: [facility] TELEPHONIC OUTREACH Provider Action/FYI: No answer, VMB is full. Contact made with patient: No - Unable to leave message [facility] 09-19-2022 History of Present illness Narrative [facility] TELEPHONIC OUTREACH Provider Action/FYI: No answer, VMB is full. Contact made with patient: No - Unable to leave message documented in this encounter [facility] 09-18-2022 Note HNO ID: [id number] Author: Argenis Jewell RN Service: ? Author Type: Registered Nurse Type: Progress Notes Filed: 09/18/2022 2:42 PM Note Text: [facility] TELEPHONIC OUTREACH Provider Action/FYI: Contact made with patient: No - Unable to leave message Entered next patient outreach date for the following business day, if third call please enter next outreach date for one week in the Track Pt. Outreach - End Outreach [facility] 09-18-2022 History of Present illness Narrative [facility] TELEPHONIC OUTREACH Provider Action/FYI: Contact made with patient: No - Unable to leave message Entered next patient outreach date for the following business day, if third call please enter next outreach date for one week in the Track Pt. Outreach - End Outreach documented in this encounter [facility] 09-18-2022 Note Patient Outreach (AM [facility]) TAMIKO DIAMOND ([id number]) 1950 F CHT Date Time Provider Department 09/18/22 ARGENIS JEWELL During your visit today, we recorded the following information about you: Argenis Jewell RN 09/18/2022 2:42 PM Signed [facility] TELEPHONIC OUTREACH Provider Action/FYI: Contact made with patient: No - Unable to leave message Entered next patient outreach date for the following , if third call please enter next outreach date for one week in the Track Pt. Outreach - End Outreach Allergies As of Date: 09/18/2022 Noted Allergy Reaction NEURONTIN (GABAPENTIN) 08/14/2005 1 - Mental Status Change Comments: Slurred speech, It was like I was drunk. No seizures. AVELOX (MOXIFLOXACIN HCL) 08/14/2005 2 - Rash WELLBUTRIN (BUPROPION HCL) 06/12/2005 4 - Hives 9 - Itching BUPROPION 04/07/2019 4 - Hives Date Reviewed: 09/10/2022 Reviewed by: Juliana Link LPN - Fully Assessed Reason for Visit: Community Monitoring Outreach [Other] Cmt: [facility] Prescriptions as of 09/18/2022 - apixaban (ELIQUIS) 5 mg tab(s) Take 5 mg by mouth once daily. - oxyCODONE IR (ROXICODONE) 5 mg immediate release tablet Take 5 mg by mouth. - azithromycin (ZITHROMAX Z-FANNIE) 250 mg tablet Take 1 tablet by mouth once daily. - calcium-cholecalciferol, D3, (OSCAL+D 250) 250 mg-3.125 mcg (125 unit) per tablet Take 1 tablet by mouth twice daily. - Ibandronate (BONIVA) 150 mg tablet Take 1 tablet by mouth once every month. Take in the am with full glass of water on an empty stomach; do NOT eat or lie down for next 30 minutes. - varenicline (CHANTIX) 1 mg tablet Take 1 tablet by mouth twice daily. - insulin glargine (LANTUS SOLOSTAR U-100 INSULIN) 100 unit/mL (3 mL) Per sliding scale. - lancets (ONE TOUCH DELICA) 33 gauge Test blood sugar(s) 1 daily. Dx: Type 2 DM - Controlled E11.9 Insulin: No - gnpqeugfilg-bgvehhbia-torecrrq (TRELEGY ELLIPTA) 100-62.5-25 mcg inhalation powder Inhale 1 Puff as instructed once daily. - rOPINIRole (REQUIP) 2 mg tablet Take 1 tablet by mouth daily at bedtime. - losartan (COZAAR) 50 mg tablet Take 1 tablet by mouth once daily. - atorvastatin (LIPITOR) 80 mg tablet Take 1 tablet by mouth daily at bedtime. - traZODone (DESYREL) 100 mg tablet Take 1 tablet by mouth daily at bedtime. - sertraline (ZOLOFT) 50 mg tablet Take 1 tablet by mouth once daily. - pramipexole (MIRAPEX) 1.5 mg tablet Take 1 tablet by mouth daily at bedtime. - blood sugar diagnostic (ONETOUCH VERIO TEST STRIPS) test strip Test blood sugar(s) 2-3 times daily. Dx: Type 2 DM - Uncontrolled E11.65 Insulin: No - albuterol (PROVENTIL) 2.5 mg /3 mL (0.083 %) nebulizer solution Use 3 mL via nebulizer every 4 hours as needed for wheezing/shortness of breath. - aspirin 81 mg cap Take by mouth. - furosemide (LASIX) 20 mg tablet Take 2 tablets by mouth once daily. - Lancets lancets Test blood sugar(s) bid times daily. Dx: Type 2 DM - Controlled E11.9 Insulin: Yes - blood sugar diagnostic (BLOOD GLUCOSE TEST) test strip Test blood sugar(s) 2 times daily. Dx: Type 2 DM - Controlled E11.9 Insulin: No - ipratropium-albuterol (DUONEB) 0.5 mg-3 mg(2.5 mg base)/3 mL nebu Inhale 3 mL as instructed every 4 hours as needed for wheezing/shortness of breath. - PULSE OXIMETER [facility] Use to check oxygen saturation. - OXYGEN, HOME THERAPY, 2 L/min by Nasal Cannula route daily at bedtime. - COMPOUNDED PRESCRIPTION Bipap mask and tubing. - COMPOUNDED PRESCRIPTION Adjust bilevel PAP to setting of 16/10 cmH2O with heated humidification - COMPOUNDED PRESCRIPTION Initiate BiPAP @ 14/8 cm of water with humidification. Mask (per patient preference) optional chin strap (if indicated) , filters, tubing, humidifier and lifetime supplies. Dx. SHANA 327.23 Facility-Administered Medications as of 09/18/2022 - perflutren lipid microspheres 1.3 mL in NaCl (PF) 0.9% 10 mL injection (DEFINITY) - sodium chloride 0.9 % (flush) 10 mL (BD POSIFLUSH) Meds Comments as of 03/27/2021: 03/27/21 The medications are managed by this patient by: PATIENT Kalie Ngo Formerly [facility] Problem List As Of Date 09/18/2022 Noted Resolved Pure hypercholesterolemia [E78.00] CHRONIC AIRWAY OBSTRUCTION NEC [J44.9] 10/14/2015 Unspecified asthma(493.90) [J45.909] 11/21/2016 Osteoporosis, unspecified [M81.0] 03/21/2021 GENERAL OSTEOARTHROSIS [M15.9] 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 [facility] 09-10-2022 Miscellaneous Notes Pt notified of results via [employer]. Argenis Kramer Ma Labs show no acute changes. Sed rate is very minimally up(not enough to suggest Giant cell arteritis) Given her arthralgias. Recheck rheum panel in a few weeks documented in this encounter [facility] 09-07-2022 Miscellaneous Notes Pt scheduled with [facility] Dr Enrique Elias 10/18/2022 2:00 PM. Martina Wiggins LPN Xray shows a lot of degenerative changes. Send copy to her pain management physician and see him as we discussed. documented in this encounter [facility] 09-06-2022 Note HNO ID: [id number] Author: RT Jose Guadalupe(R) Service: ? Author Type: [employer] Type: Progress Notes Filed: 09/06/2022 12:56 PM Note Text: Radiology Service Progress Note PATIENT NAME: Tamiko Diamond DATE OF SERVICE: September 06, 2022 TIME: 12:33 PM PATIENT IDENTITY VERIFICATION COMPLETED USING TWO (2) IDENTIFIERS: Name and Date of confirmed by patient verbally. FALL SCREENING: Has the patient had 2 falls in the last year or 1 fall with injury or currently using an Ambulatory Assistive Device (Walker, Cane, Wheelchair, Crutches, etc.)? Yes, Patient High Risk for Falls What interventions were put in place to prevent falls during this visit? Instructed Patient to Call for Help if Needed, Offered Assistance with Transfers/Clothing, Instructed Patient to Remain Seated (Not on Exam Table) Until Exam, and Increased Observations by Caregivers PATIENT GENDER DATA: Female. status: : No status: NO. PATIENT RELEVANT IMPLANT DATA REVIEWED: Yes RADIOLOGY DEPARTMENT: General X-ray: Exam(s) Completed: Chest X-Ray Spine X-Ray(s): Cervical AP / LAT / OBL PERIPHERAL IV DATA: Not applicable SIGNED BY: RT Jose Guadalupe(R) September 06, 2022 12:33 PM [facility] documented as of this encounter (statuses as of 09/07/2022) [facility] History of Past illness Narrative* Problem Noted Date Resolved Date Abnormal cardiac enzyme level 09/06/2022 History of chronic obstructive airway disease 09/06/2022 History of type 2 diabetes mellitus 09/06/2022 09/06/2022 Dizziness 09/06/2022 09/06/2022 COPD exacerbation 02/13/2022 07/04/2022 Type 2 diabetes mellitus 07/14/2021 023 EKG abnormality 07/14/2021 07/17/2021 Chronic respiratory failure 07/14/202108/26 Last Assessment & Plan: Assessment: oxygen therapy at night, following pulmonary 2019 spirometry IMPRESSION: The flow volume demonstrates an obstructive pattern. Spirometry indicates severe obstruction. The reduced FVC may be due to obstruction: however concurrent restriction is not excluded. Lung volumes are suggested for clarification if c linically indicated. Electronically Signed On 05-07-2019 15:26:19 EDT by Mirza Manuel COPD with exacerbation 03/22/2021 3 EKG abnormalities 03/22/2021 03/25/2021 Overview: EK03/20/[address]-T changes with some terminal T wave inversions V1 through V4 not present on EKG 01/12/2021 Centrilobular emphysema 03/22/2021 09/06/19 23 On apixaban therapy 03/21/2021 08/01/2021 Overview: For prior pulmonary embolus Shortness of breath 12/15/2020 03/21/2021 Nausea and vomiting 12/15/2020 03/21/2021 Generalized weakness 12/15/2020 03/21/2021 Abnormal urinalysis 12/15/2020 03/21/2021 Acute deep vein thrombosis ( DVT) of distal vein of left lower extremity 10/26/2020 03/21/2021 Change in bowel habit 07/08/2019 03/21/2021 Prediabetes 05/13/2019 03/21/2021 Obesity, Class I, BMI 30-34.9 01/30/2019 Last Assessment & Plan: Assessment: Body mass index is 34.01 kg/m . 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 No signs or symptoms of DVT/PE. The patient is at high risk for VTE. Plan: - Continue Lovenox 40mg daily SC. - SCD/KAIA - Encourage continued ambulation . DISPOSITION AND FOLLOW-UP 10/23/20132013 Overview: Patient is and lives in [place], [place]. At this time, we anticipate that the patient will be discharged home once clinically stable. Plan: - Discuss needs with patient. - Collaborate with Case management to facilitate DC process - Will likely need home oxygen. Desat study ordered. . Tobacco abuse 10/23/2013 11/12/2013 Overview: Active smoker of 75 pack years. Benefits of smoking cessation discussed and patient states she is actively trying to quit (down to less than a pack per day from 1.5 pack per day). Continued to reinforce need to stop smoking. Is being discharged on home oxygen. Plan -Continue to encourage smoking cessation. -Start nicotine patch . Acute postoperative pain 10/23/2013 014 Overview: Patient states adequate pain control with Vicodin, oxycodone, and Motrin added in an attempt to transition to all oral pain regimen. Plan -Patient will be discharged on Oxycodone and home dosing of Naprosyn -Monitor pain, reassess to keep at pain level 4 or below. . Atelectasis 10/23/2013 10/24/2013 Overview: S/P right VATS upper lobectomy 10/23/13. Wearing 2 L/min oxygen, 95% pulse ox. CXR shows bilateral atelectasis. PLAN: -Bronchopulmonary hygiene, cough, deep breathe, acapella use, frequent ambulation. . Rt VATS Wedge, then RULobectomy 10/20/2013 10/14/2015 Overview: Patient is an active smoker of 75 pack years, presented with a 1.4 cm spiculated, cavitary lesion in the right upper lung. PET scan showed increased uptake in the lesion with an SUV 5.5 and no evidence of hilar, mediastinal or extrathoracic disease. On 10/22/13, Dr. Calvert performed right VATS, right upper lobectomy, and lymphadenectomy (R2, R4, 7). Plan:: -Pain management -Out of bed, frequent ambulation -cough/deep breathe, acapella -regular diet -respiratory therapy- Desat study for home oxygen . Pain in joint, lower leg 05/01/2013 014 Tear of meniscus of left knee 02/16/2013 Fatigue 12/01/2012 11/12/2013 Snoring 12/01/2012 11/12/2013 Hyperglycemia 05/28/2012 01/02/2017 Mastalgia 09/04/2011 11/12/2013 CHRONIC AIRWAY OBSTRUCTION NEC 0 10/14/2015 Unspecified asthma(493.90) 11/21 Osteoporosis, unspecified 2020 History of lung cancer 6 Overview: squamous cell documented as of this encounter (statuses as of 09/10/2022) [facility] History of Past illness Narrative* Problem Noted Date Resolved Date Abnormal cardiac enzyme level 09/06/2022 History of chronic obstructive airway disease 09/06/2022 History of type 2 diabetes mellitus 09/06/2022 09/06/2022 Dizziness 09/06/2022 09/06/2022 COPD exacerbation 02/13/2022 07/04/2022 Type 2 diabetes mellitus 07/14/2021 023 EKG abnormality 07/14/2021 07/17/2021 Chronic respiratory failure 07/14/202108/26 Last Assessment & Plan: Assessment: oxygen therapy at night, following pulmonary 2019 spirometry IMPRESSION: The flow volume demonstrates an obstructive pattern. Spirometry indicates severe obstruction. The reduced FVC may be due to obstruction: however concurrent restriction is not excluded. Lung volumes are suggested for clarification if c linically indicated. Electronically Signed On 05-07-2019 15:26:19 EDT by Mirza Manuel COPD with exacerbation 03/22/2021 3 EKG abnormalities 03/22/2021 03/25/2021 Overview: EK03/20/[address]-T changes with some terminal T wave inversions V1 through V4 not present on EKG 01/12/2021 Centrilobular emphysema 03/22/2021 09/06/19 23 On apixaban therapy 03/21/2021 08/01/2021 Overview: For prior pulmonary embolus Shortness of breath 12/15/2020 03/21/2021 Nausea and vomiting 12/15/2020 03/21/2021 Generalized weakness 12/15/2020 03/21/2021 Abnormal urinalysis 12/15/2020 03/21/2021 Acute deep vein thrombosis ( DVT) of distal vein of left lower extremity 10/26/2020 03/21/2021 Change in bowel habit 07/08/2019 03/21/2021 Prediabetes 05/13/2019 03/21/2021 Obesity, Class I, BMI 30-34.9 01/30/2019 Last Assessment & Plan: Assessment: Body mass index is 34.01 kg/m . 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 No signs or symptoms of DVT/PE. The patient is at high risk for VTE. Plan: - Continue Lovenox 40mg daily SC. - SCD/KAIA - Encourage continued ambulation . DISPOSITION AND FOLLOW-UP 10/23/20132013 Overview: Patient is and lives in [place], [place]. At this time, we anticipate that the patient will be discharged home once clinically stable. Plan: - Discuss needs with patient. - Collaborate with Case management to facilitate DC process - Will likely need home oxygen. Desat study ordered. . Tobacco abuse 10/23/2013 11/12/2013 Overview: Active smoker of 75 pack years. Benefits of smoking cessation discussed and patient states she is actively trying to quit (down to less than a pack per day from 1.5 pack per day). Continued to reinforce need to stop smoking. Is being discharged on home oxygen. Plan -Continue to encourage smoking cessation. -Start nicotine patch . Acute postoperative pain 10/23/2013 014 Overview: Patient states adequate pain control with Vicodin, oxycodone, and Motrin added in an attempt to transition to all oral pain regimen. Plan -Patient will be discharged on Oxycodone and home dosing of Naprosyn -Monitor pain, reassess to keep at pain level 4 or below. . Atelectasis 10/23/2013 10/24/2013 Overview: S/P right VATS upper lobectomy 10/23/13. Wearing 2 L/min oxygen, 95% pulse ox. CXR shows bilateral atelectasis. PLAN: -Bronchopulmonary hygiene, cough, deep breathe, acapella use, frequent ambulation. . Rt VATS Wedge, then RULobectomy 10/20/2013 10/14/2015 Overview: Patient is an active smoker of 75 pack years, presented with a 1.4 cm spiculated, cavitary lesion in the right upper lung. PET scan showed increased uptake in the lesion with an SUV 5.5 and no evidence of hilar, mediastinal or extrathoracic disease. On 10/22/13, Dr. Calvert performed right VATS, right upper lobectomy, and lymphadenectomy (R2, R4, 7). Plan:: -Pain management -Out of bed, frequent ambulation -cough/deep breathe, acapella -regular diet -respiratory therapy- Desat study for home oxygen . Pain in joint, lower leg 05/01/2013 014 Tear of meniscus of left knee 02/16/2013 Fatigue 12/01/2012 11/12/2013 Snoring 12/01/2012 11/12/2013 Hyperglycemia 05/28/2012 01/02/2017 Mastalgia 09/04/2011 11/12/2013 CHRONIC AIRWAY OBSTRUCTION NEC 0 10/14/2015 Unspecified asthma(493.90) 11/21 Osteoporosis, unspecified 2020 History of lung cancer 6 Overview: squamous cell documented as of this encounter (statuses as of 09/10/2022) [facility] History of Past illness Narrative* Problem Noted Date Resolved Date Abnormal cardiac enzyme level 09/06/2022 History of chronic obstructive airway disease 09/06/2022 History of type 2 diabetes mellitus 09/06/2022 09/06/2022 Dizziness 09/06/2022 09/06/2022 COPD exacerbation 02/13/2022 07/04/2022 Type 2 diabetes mellitus 07/14/2021 023 EKG abnormality 07/14/2021 07/17/2021 Chronic respiratory failure 07/14/202108/26 Last Assessment & Plan: Assessment: oxygen therapy at night, following pulmonary 2019 spirometry IMPRESSION: The flow volume demonstrates an obstructive pattern. Spirometry indicates severe obstruction. The reduced FVC may be due to obstruction: however concurrent restriction is not excluded. Lung volumes are suggested for clarification if c linically indicated. Electronically Signed On 05-07-2019 15:26:19 EDT by Mirza Manuel COPD with exacerbation 03/22/2021 3 EKG abnormalities 03/22/2021 03/25/2021 Overview: EK03/20/[address]-T changes with some terminal T wave inversions V1 through V4 not present on EKG 01/12/2021 Centrilobular emphysema 03/22/2021 09/06/19 23 On apixaban therapy 03/21/2021 08/01/2021 Overview: For prior pulmonary embolus Shortness of breath 12/15/2020 03/21/2021 Nausea and vomiting 12/15/2020 03/21/2021 Generalized weakness 12/15/2020 03/21/2021 Abnormal urinalysis 12/15/2020 03/21/2021 Acute deep vein thrombosis ( DVT) of distal vein of left lower extremity 10/26/2020 03/21/2021 Change in bowel habit 07/08/2019 03/21/2021 Prediabetes 05/13/2019 03/21/2021 Obesity, Class I, BMI 30-34.9 01/30/2019 Last Assessment & Plan: Assessment: Body mass index is 34.01 kg/m . 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 No signs or symptoms of DVT/PE. The patient is at high risk for VTE. Plan: - Continue Lovenox 40mg daily SC. - SCD/KAIA - Encourage continued ambulation . DISPOSITION AND FOLLOW-UP 10/23/20132013 Overview: Patient is and lives in [place], [place]. At this time, we anticipate that the patient will be discharged home once clinically stable. Plan: - Discuss needs with patient. - Collaborate with Case management to facilitate DC process - Will likely need home oxygen. Desat study ordered. . Tobacco abuse 10/23/2013 11/12/2013 Overview: Active smoker of 75 pack years. Benefits of smoking cessation discussed and patient states she is actively trying to quit (down to less than a pack per day from 1.5 pack per day). Continued to reinforce need to stop smoking. Is being discharged on home oxygen. Plan -Continue to encourage smoking cessation. -Start nicotine patch . Acute postoperative pain 10/23/2013 014 Overview: Patient states adequate pain control with Vicodin, oxycodone, and Motrin added in an attempt to transition to all oral pain regimen. Plan -Patient will be discharged on Oxycodone and home dosing of Naprosyn -Monitor pain, reassess to keep at pain level 4 or below. . Atelectasis 10/23/2013 10/24/2013 Overview: S/P right VATS upper lobectomy 10/23/13. Wearing 2 L/min oxygen, 95% pulse ox. CXR shows bilateral atelectasis. PLAN: -Bronchopulmonary hygiene, cough, deep breathe, acapella use, frequent ambulation. . Rt VATS Wedge, then RULobectomy 10/20/2013 10/14/2015 Overview: Patient is an active smoker of 75 pack years, presented with a 1.4 cm spiculated, cavitary lesion in the right upper lung. PET scan showed increased uptake in the lesion with an SUV 5.5 and no evidence of hilar, mediastinal or extrathoracic disease. On 10/22/13, Dr. Calvert performed right VATS, right upper lobectomy, and lymphadenectomy (R2, R4, 7). Plan:: -Pain management -Out of bed, frequent ambulation -cough/deep breathe, acapella -regular diet -respiratory therapy- Desat study for home oxygen . Pain in joint, lower leg 05/01/2013 014 Tear of meniscus of left knee 02/16/2013 Fatigue 12/01/2012 11/12/2013 Snoring 12/01/2012 11/12/2013 Hyperglycemia 05/28/2012 01/02/2017 Mastalgia 09/04/2011 11/12/2013 CHRONIC AIRWAY OBSTRUCTION NEC 0 10/14/2015 Unspecified asthma(493.90) 11/21 Osteoporosis, unspecified 2020 History of lung cancer 6 Overview: squamous cell documented as of this encounter (statuses as of 09/18/2022) [facility]01-12-2023 History of Past illness Narrative* Problem Noted Date Resolved Date Abnormal cardiac enzyme level 09/06/2022 History of chronic obstructive airway disease 09/06/2022 History of type 2 diabetes mellitus 09/06/2022 09/06/2022 Dizziness 09/06/2022 09/06/2022 COPD exacerbation 02/13/2022 07/04/2022 Type 2 diabetes mellitus 07/14/2021 023 EKG abnormality 07/14/2021 07/17/2021 Chronic respiratory failure 07/14/202108/26 Last Assessment & Plan: Assessment: oxygen therapy at night, following pulmonary 2019 spirometry IMPRESSION: The flow volume demonstrates an obstructive pattern. Spirometry indicates severe obstruction. The reduced FVC may be due to obstruction: however concurrent restriction is not excluded. Lung volumes are suggested for clarification if c linically indicated. Electronically Signed On 05-07-2019 15:26:19 EDT by Mirza Manuel COPD with exacerbation 03/22/2021 3 EKG abnormalities 03/22/2021 03/25/2021 Overview: EK03/20/[address]-T changes with some terminal T wave inversions V1 through V4 not present on EKG 01/12/2021 Centrilobular emphysema 03/22/2021 09/06/19 23 On apixaban therapy 03/21/2021 08/01/2021 Overview: For prior pulmonary embolus Shortness of breath 12/15/2020 03/21/2021 Nausea and vomiting 12/15/2020 03/21/2021 Generalized weakness 12/15/2020 03/21/2021 Abnormal urinalysis 12/15/2020 03/21/2021 Acute deep vein thrombosis ( DVT) of distal vein of left lower extremity 10/26/2020 03/21/2021 Change in bowel habit 07/08/2019 03/21/2021 Prediabetes 05/13/2019 03/21/2021 Obesity, Class I, BMI 30-34.9 01/30/2019 Last Assessment & Plan: Assessment: Body mass index is 34.01 kg/m . 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 No signs or symptoms of DVT/PE. The patient is at high risk for VTE. Plan: - Continue Lovenox 40mg daily SC. - SCD/KAIA - Encourage continued ambulation . DISPOSITION AND FOLLOW-UP 10/23/20132013 Overview: Patient is and lives in [place], [place]. At this time, we anticipate that the patient will be discharged home once clinically stable. Plan: - Discuss needs with patient. - Collaborate with Case management to facilitate DC process - Will likely need home oxygen. Desat study ordered. . Tobacco abuse 10/23/2013 11/12/2013 Overview: Active smoker of 75 pack years. Benefits of smoking cessation discussed and patient states she is actively trying to quit (down to less than a pack per day from 1.5 pack per day). Continued to reinforce need to stop smoking. Is being discharged on home oxygen. Plan -Continue to encourage smoking cessation. -Start nicotine patch . Acute postoperative pain 10/23/2013 014 Overview: Patient states adequate pain control with Vicodin, oxycodone, and Motrin added in an attempt to transition to all oral pain regimen. Plan -Patient will be discharged on Oxycodone and home dosing of Naprosyn -Monitor pain, reassess to keep at pain level 4 or below. . Atelectasis 10/23/2013 10/24/2013 Overview: S/P right VATS upper lobectomy 10/23/13. Wearing 2 L/min oxygen, 95% pulse ox. CXR shows bilateral atelectasis. PLAN: -Bronchopulmonary hygiene, cough, deep breathe, acapella use, frequent ambulation. . Rt VATS Wedge, then RULobectomy 10/20/2013 10/14/2015 Overview: Patient is an active smoker of 75 pack years, presented with a 1.4 cm spiculated, cavitary lesion in the right upper lung. PET scan showed increased uptake in the lesion with an SUV 5.5 and no evidence of hilar, mediastinal or extrathoracic disease. On 10/22/13, Dr. Calvert performed right VATS, right upper lobectomy, and lymphadenectomy (R2, R4, 7). Plan:: -Pain management -Out of bed, frequent ambulation -cough/deep breathe, acapella -regular diet -respiratory therapy- Desat study for home oxygen . Pain in joint, lower leg 05/01/2013 014 Tear of meniscus of left knee 02/16/2013 Fatigue 12/01/2012 11/12/2013 Snoring 12/01/2012 11/12/2013 Hyperglycemia 05/28/2012 01/02/2017 Mastalgia 09/04/2011 11/12/2013 CHRONIC AIRWAY OBSTRUCTION NEC 0 10/14/2015 Unspecified asthma(493.90) 11/21 Osteoporosis, unspecified 2020 History of lung cancer 6 Overview: squamous cell documented as of this encounter (statuses as of 09/19/2022) [facility]01-12-2023 History of Past illness Narrative* Problem Noted Date Resolved Date Abnormal cardiac enzyme level 09/06/2022 History of chronic obstructive airway disease 09/06/2022 History of type 2 diabetes mellitus 09/06/2022 09/06/2022 Dizziness 09/06/2022 09/06/2022 COPD exacerbation 02/13/2022 07/04/2022 Type 2 diabetes mellitus 07/14/2021 023 EKG abnormality 07/14/2021 07/17/2021 Chronic respiratory failure 07/14/202108/26 Last Assessment & Plan: Assessment: oxygen therapy at night, following pulmonary 2019 spirometry IMPRESSION: The flow volume demonstrates an obstructive pattern. Spirometry indicates severe obstruction. The reduced FVC may be due to obstruction: however concurrent restriction is not excluded. Lung volumes are suggested for clarification if c linically indicated. Electronically Signed On 05-07-2019 15:26:19 EDT by Mirza Manuel COPD with exacerbation 03/22/2021 3 EKG abnormalities 03/22/2021 03/25/2021 Overview: EK03/20/[address]-T changes with some terminal T wave inversions V1 through V4 not present on EKG 01/12/2021 Centrilobular emphysema 03/22/2021 09/06/19 23 On apixaban therapy 03/21/2021 08/01/2021 Overview: For prior pulmonary embolus Shortness of breath 12/15/2020 03/21/2021 Nausea and vomiting 12/15/2020 03/21/2021 Generalized weakness 12/15/2020 03/21/2021 Abnormal urinalysis 12/15/2020 03/21/2021 Acute deep vein thrombosis ( DVT) of distal vein of left lower extremity 10/26/2020 03/21/2021 Change in bowel habit 07/08/2019 03/21/2021 Prediabetes 05/13/2019 03/21/2021 Obesity, Class I, BMI 30-34.9 01/30/2019 Last Assessment & Plan: Assessment: Body mass index is 34.01 kg/m . 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 No signs or symptoms of DVT/PE. The patient is at high risk for VTE. Plan: - Continue Lovenox 40mg daily SC. - SCD/KAIA - Encourage continued ambulation . DISPOSITION AND FOLLOW-UP 10/23/20132013 Overview: Patient is and lives in [place], [place]. At this time, we anticipate that the patient will be discharged home once clinically stable. Plan: - Discuss needs with patient. - Collaborate with Case management to facilitate DC process - Will likely need home oxygen. Desat study ordered. . Tobacco abuse 10/23/2013 11/12/2013 Overview: Active smoker of 75 pack years. Benefits of smoking cessation discussed and patient states she is actively trying to quit (down to less than a pack per day from 1.5 pack per day). Continued to reinforce need to stop smoking. Is being discharged on home oxygen. Plan -Continue to encourage smoking cessation. -Start nicotine patch . Acute postoperative pain 10/23/2013 014 Overview: Patient states adequate pain control with Vicodin, oxycodone, and Motrin added in an attempt to transition to all oral pain regimen. Plan -Patient will be discharged on Oxycodone and home dosing of Naprosyn -Monitor pain, reassess to keep at pain level 4 or below. . Atelectasis 10/23/2013 10/24/2013 Overview: S/P right VATS upper lobectomy 10/23/13. Wearing 2 L/min oxygen, 95% pulse ox. CXR shows bilateral atelectasis. PLAN: -Bronchopulmonary hygiene, cough, deep breathe, acapella use, frequent ambulation. . Rt VATS Wedge, then RULobectomy 10/20/2013 10/14/2015 Overview: Patient is an active smoker of 75 pack years, presented with a 1.4 cm spiculated, cavitary lesion in the right upper lung. PET scan showed increased uptake in the lesion with an SUV 5.5 and no evidence of hilar, mediastinal or extrathoracic disease. On 10/22/13, Dr. Calvert performed right VATS, right upper lobectomy, and lymphadenectomy (R2, R4, 7). Plan:: -Pain management -Out of bed, frequent ambulation -cough/deep breathe, acapella -regular diet -respiratory therapy- Desat study for home oxygen . Pain in joint, lower leg 05/01/2013 014 Tear of meniscus of left knee 02/16/2013 Fatigue 12/01/2012 11/12/2013 Snoring 12/01/2012 11/12/2013 Hyperglycemia 05/28/2012 01/02/2017 Mastalgia 09/04/2011 11/12/2013 CHRONIC AIRWAY OBSTRUCTION NEC 0 10/14/2015 Unspecified asthma(493.90) 11/21 Osteoporosis, unspecified 2020 History of lung cancer 6 Overview: squamous cell documented as of this encounter (statuses as of 09/27/2022) [facility]01-12-2023 History of Past illness Narrative* Problem Noted Date Resolved Date Abnormal cardiac enzyme level 09/06/2022 History of chronic obstructive airway disease 09/06/2022 History of type 2 diabetes mellitus 09/06/2022 09/06/2022 Dizziness 09/06/2022 09/06/2022 COPD exacerbation 02/13/2022 07/04/2022 Type 2 diabetes mellitus 07/14/2021 023 EKG abnormality 07/14/2021 07/17/2021 Chronic respiratory failure 07/14/202108/26 Last Assessment & Plan: Assessment: oxygen therapy at night, following pulmonary 2019 spirometry IMPRESSION: The flow volume demonstrates an obstructive pattern. Spirometry indicates severe obstruction. The reduced FVC may be due to obstruction: however concurrent restriction is not excluded. Lung volumes are suggested for clarification if c linically indicated. Electronically Signed On 05-07-2019 15:26:19 EDT by Mirza Manuel COPD with exacerbation 03/22/2021 3 EKG abnormalities 03/22/2021 03/25/2021 Overview: EK03/20/[address]-T changes with some terminal T wave inversions V1 through V4 not present on EKG 01/12/2021 Centrilobular emphysema 03/22/2021 09/06/19 23 On apixaban therapy 03/21/2021 08/01/2021 Overview: For prior pulmonary embolus Shortness of breath 12/15/2020 03/21/2021 Nausea and vomiting 12/15/2020 03/21/2021 Generalized weakness 12/15/2020 03/21/2021 Abnormal urinalysis 12/15/2020 03/21/2021 Acute deep vein thrombosis ( DVT) of distal vein of left lower extremity 10/26/2020 03/21/2021 Change in bowel habit 07/08/2019 03/21/2021 Prediabetes 05/13/2019 03/21/2021 Obesity, Class I, BMI 30-34.9 01/30/2019 Last Assessment & Plan: Assessment: Body mass index is 34.01 kg/m . 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 No signs or symptoms of DVT/PE. The patient is at high risk for VTE. Plan: - Continue Lovenox 40mg daily SC. - SCD/KAIA - Encourage continued ambulation . DISPOSITION AND FOLLOW-UP 10/23/20132013 Overview: Patient is and lives in [place], [place]. At this time, we anticipate that the patient will be discharged home once clinically stable. Plan: - Discuss needs with patient. - Collaborate with Case management to facilitate DC process - Will likely need home oxygen. Desat study ordered. . Tobacco abuse 10/23/2013 11/12/2013 Overview: Active smoker of 75 pack years. Benefits of smoking cessation discussed and patient states she is actively trying to quit (down to less than a pack per day from 1.5 pack per day). Continued to reinforce need to stop smoking. Is being discharged on home oxygen. Plan -Continue to encourage smoking cessation. -Start nicotine patch . Acute postoperative pain 10/23/2013 014 Overview: Patient states adequate pain control with Vicodin, oxycodone, and Motrin added in an attempt to transition to all oral pain regimen. Plan -Patient will be discharged on Oxycodone and home dosing of Naprosyn -Monitor pain, reassess to keep at pain level 4 or below. . Atelectasis 10/23/2013 10/24/2013 Overview: S/P right VATS upper lobectomy 10/23/13. Wearing 2 L/min oxygen, 95% pulse ox. CXR shows bilateral atelectasis. PLAN: -Bronchopulmonary hygiene, cough, deep breathe, acapella use, frequent ambulation. . Rt VATS Wedge, then RULobectomy 10/20/2013 10/14/2015 Overview: Patient is an active smoker of 75 pack years, presented with a 1.4 cm spiculated, cavitary lesion in the right upper lung. PET scan showed increased uptake in the lesion with an SUV 5.5 and no evidence of hilar, mediastinal or extrathoracic disease. On 10/22/13, Dr. Calvert performed right VATS, right upper lobectomy, and lymphadenectomy (R2, R4, 7). Plan:: -Pain management -Out of bed, frequent ambulation -cough/deep breathe, acapella -regular diet -respiratory therapy- Desat study for home oxygen . Pain in joint, lower leg 05/01/2013 014 Tear of meniscus of left knee 02/16/2013 Fatigue 12/01/2012 11/12/2013 Snoring 12/01/2012 11/12/2013 Hyperglycemia 05/28/2012 01/02/2017 Mastalgia 09/04/2011 11/12/2013 CHRONIC AIRWAY OBSTRUCTION NEC 0 10/14/2015 Unspecified asthma(493.90) 11/21 Osteoporosis, unspecified 2020 History of lung cancer 6 Overview: squamous cell documented as of this encounter (statuses as of 09/29/2022) [facility]01-12-2023 History of Past illness Narrative* Problem Noted Date Resolved Date Abnormal cardiac enzyme level 09/06/2022 History of chronic obstructive airway disease 09/06/2022 History of type 2 diabetes mellitus 09/06/2022 09/06/2022 Dizziness 09/06/2022 09/06/2022 COPD exacerbation 02/13/2022 07/04/2022 Type 2 diabetes mellitus 07/14/2021 023 EKG abnormality 07/14/2021 07/17/2021 Chronic respiratory failure 07/14/202108/26 Last Assessment & Plan: Assessment: oxygen therapy at night, following pulmonary 2019 spirometry IMPRESSION: The flow volume demonstrates an obstructive pattern. Spirometry indicates severe obstruction. The reduced FVC may be due to obstruction: however concurrent restriction is not excluded. Lung volumes are suggested for clarification if c linically indicated. Electronically Signed On 05-07-2019 15:26:19 EDT by Mirza Manuel COPD with exacerbation 03/22/2021 3 EKG abnormalities 03/22/2021 03/25/2021 Overview: EK03/20/[address]-T changes with some terminal T wave inversions V1 through V4 not present on EKG 01/12/2021 Centrilobular emphysema 03/22/2021 09/06/19 23 On apixaban therapy 03/21/2021 08/01/2021 Overview: For prior pulmonary embolus Shortness of breath 12/15/2020 03/21/2021 Nausea and vomiting 12/15/2020 03/21/2021 Generalized weakness 12/15/2020 03/21/2021 Abnormal urinalysis 12/15/2020 03/21/2021 Acute deep vein thrombosis ( DVT) of distal vein of left lower extremity 10/26/2020 03/21/2021 Change in bowel habit 07/08/2019 03/21/2021 Prediabetes 05/13/2019 03/21/2021 Obesity, Class I, BMI 30-34.9 01/30/2019 Last Assessment & Plan: Assessment: Body mass index is 34.01 kg/m . 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 No signs or symptoms of DVT/PE. The patient is at high risk for VTE. Plan: - Continue Lovenox 40mg daily SC. - SCD/KAIA - Encourage continued ambulation . DISPOSITION AND FOLLOW-UP 10/23/20132013 Overview: Patient is and lives in [place], [place]. At this time, we anticipate that the patient will be discharged home once clinically stable. Plan: - Discuss needs with patient. - Collaborate with Case management to facilitate DC process - Will likely need home oxygen. Desat study ordered. . Tobacco abuse 10/23/2013 11/12/2013 Overview: Active smoker of 75 pack years. Benefits of smoking cessation discussed and patient states she is actively trying to quit (down to less than a pack per day from 1.5 pack per day). Continued to reinforce need to stop smoking. Is being discharged on home oxygen. Plan -Continue to encourage smoking cessation. -Start nicotine patch . Acute postoperative pain 10/23/2013 014 Overview: Patient states adequate pain control with Vicodin, oxycodone, and Motrin added in an attempt to transition to all oral pain regimen. Plan -Patient will be discharged on Oxycodone and home dosing of Naprosyn -Monitor pain, reassess to keep at pain level 4 or below. . Atelectasis 10/23/2013 10/24/2013 Overview: S/P right VATS upper lobectomy 10/23/13. Wearing 2 L/min oxygen, 95% pulse ox. CXR shows bilateral atelectasis. PLAN: -Bronchopulmonary hygiene, cough, deep breathe, acapella use, frequent ambulation. . Rt VATS Wedge, then RULobectomy 10/20/2013 10/14/2015 Overview: Patient is an active smoker of 75 pack years, presented with a 1.4 cm spiculated, cavitary lesion in the right upper lung. PET scan showed increased uptake in the lesion with an SUV 5.5 and no evidence of hilar, mediastinal or extrathoracic disease. On 10/22/13, Dr. Calvert performed right VATS, right upper lobectomy, and lymphadenectomy (R2, R4, 7). Plan:: -Pain management -Out of bed, frequent ambulation -cough/deep breathe, acapella -regular diet -respiratory therapy- Desat study for home oxygen . Pain in joint, lower leg 05/01/2013 014 Tear of meniscus of left knee 02/16/2013 Fatigue 12/01/2012 11/12/2013 Snoring 12/01/2012 11/12/2013 Hyperglycemia 05/28/2012 01/02/2017 Mastalgia 09/04/2011 11/12/2013 CHRONIC AIRWAY OBSTRUCTION NEC 0 10/14/2015 Unspecified asthma(493.90) 11/21 Osteoporosis, unspecified 2020 History of lung cancer 6 Overview: squamous cell documented as of this encounter (statuses as of 10/10/2022) [facility] History of Past illness Narrative* Problem Noted Date Resolved Date Abnormal cardiac enzyme level 09/06/2022 History of chronic obstructive airway disease 09/06/2022 History of type 2 diabetes mellitus 09/06/2022 09/06/2022 Dizziness 09/06/2022 09/06/2022 COPD exacerbation 02/13/2022 07/04/2022 Type 2 diabetes mellitus 07/14/2021 023 EKG abnormality 07/14/2021 07/17/2021 Chronic respiratory failure 07/14/202108/26 Last Assessment & Plan: Assessment: oxygen therapy at night, following pulmonary 2019 spirometry IMPRESSION: The flow volume demonstrates an obstructive pattern. Spirometry indicates severe obstruction. The reduced FVC may be due to obstruction: however concurrent restriction is not excluded. Lung volumes are suggested for clarification if c linically indicated. Electronically Signed On 05-07-2019 15:26:19 EDT by Mirza Manuel COPD with exacerbation 03/22/2021 3 EKG abnormalities 03/22/2021 03/25/2021 Overview: EK03/20/[address]-T changes with some terminal T wave inversions V1 through V4 not present on EKG 01/12/2021 Centrilobular emphysema 03/22/2021 09/06/19 23 On apixaban therapy 03/21/2021 08/01/2021 Overview: For prior pulmonary embolus Shortness of breath 12/15/2020 03/21/2021 Nausea and vomiting 12/15/2020 03/21/2021 Generalized weakness 12/15/2020 03/21/2021 Abnormal urinalysis 12/15/2020 03/21/2021 Acute deep vein thrombosis ( DVT) of distal vein of left lower extremity 10/26/2020 03/21/2021 Change in bowel habit 07/08/2019 03/21/2021 Prediabetes 05/13/2019 03/21/2021 Obesity, Class I, BMI 30-34.9 01/30/2019 Last Assessment & Plan: Assessment: Body mass index is 34.01 kg/m . 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 No signs or symptoms of DVT/PE. The patient is at high risk for VTE. Plan: - Continue Lovenox 40mg daily SC. - SCD/KAIA - Encourage continued ambulation . DISPOSITION AND FOLLOW-UP 10/23/20132013 Overview: Patient is and lives in [place], [place]. At this time, we anticipate that the patient will be discharged home once clinically stable. Plan: - Discuss needs with patient. - Collaborate with Case management to facilitate DC process - Will likely need home oxygen. Desat study ordered. . Tobacco abuse 10/23/2013 11/12/2013 Overview: Active smoker of 75 pack years. Benefits of smoking cessation discussed and patient states she is actively trying to quit (down to less than a pack per day from 1.5 pack per day). Continued to reinforce need to stop smoking. Is being discharged on home oxygen. Plan -Continue to encourage smoking cessation. -Start nicotine patch . Acute postoperative pain 10/23/2013 014 Overview: Patient states adequate pain control with Vicodin, oxycodone, and Motrin added in an attempt to transition to all oral pain regimen. Plan -Patient will be discharged on Oxycodone and home dosing of Naprosyn -Monitor pain, reassess to keep at pain level 4 or below. . Atelectasis 10/23/2013 10/24/2013 Overview: S/P right VATS upper lobectomy 10/23/13. Wearing 2 L/min oxygen, 95% pulse ox. CXR shows bilateral atelectasis. PLAN: -Bronchopulmonary hygiene, cough, deep breathe, acapella use, frequent ambulation. . Rt VATS Wedge, then RULobectomy 10/20/2013 10/14/2015 Overview: Patient is an active smoker of 75 pack years, presented with a 1.4 cm spiculated, cavitary lesion in the right upper lung. PET scan showed increased uptake in the lesion with an SUV 5.5 and no evidence of hilar, mediastinal or extrathoracic disease. On 10/22/13, Dr. Calvert performed right VATS, right upper lobectomy, and lymphadenectomy (R2, R4, 7). Plan:: -Pain management -Out of bed, frequent ambulation -cough/deep breathe, acapella -regular diet -respiratory therapy- Desat study for home oxygen . Pain in joint, lower leg 05/01/2013 014 Tear of meniscus of left knee 02/16/2013 Fatigue 12/01/2012 11/12/2013 Snoring 12/01/2012 11/12/2013 Hyperglycemia 05/28/2012 01/02/2017 Mastalgia 09/04/2011 11/12/2013 CHRONIC AIRWAY OBSTRUCTION NEC 0 10/14/2015 Unspecified asthma(493.90) 11/21 Osteoporosis, unspecified 2020 History of lung cancer 6 Overview: squamous cell documented as of this encounter (statuses as of 10/10/2022) [facility]01-12-2023 History of Past illness Narrative* Problem Noted Date Resolved Date Abnormal cardiac enzyme level 09/06/2022 History of chronic obstructive airway disease 09/06/2022 History of type 2 diabetes mellitus 09/06/2022 09/06/2022 Dizziness 09/06/2022 09/06/2022 COPD exacerbation 02/13/2022 07/04/2022 Type 2 diabetes mellitus 07/14/2021 023 EKG abnormality 07/14/2021 07/17/2021 Chronic respiratory failure 07/14/202108/26 Last Assessment & Plan: Assessment: oxygen therapy at night, following pulmonary 2019 spirometry IMPRESSION: The flow volume demonstrates an obstructive pattern. Spirometry indicates severe obstruction. The reduced FVC may be due to obstruction: however concurrent restriction is not excluded. Lung volumes are suggested for clarification if c linically indicated. Electronically Signed On 05-07-2019 15:26:19 EDT by Mirza Manuel COPD with exacerbation 03/22/2021 3 EKG abnormalities 03/22/2021 03/25/2021 Overview: EK03/20/[address]-T changes with some terminal T wave inversions V1 through V4 not present on EKG 01/12/2021 Centrilobular emphysema 03/22/2021 09/06/19 23 On apixaban therapy 03/21/2021 08/01/2021 Overview: For prior pulmonary embolus Shortness of breath 12/15/2020 03/21/2021 Nausea and vomiting 12/15/2020 03/21/2021 Generalized weakness 12/15/2020 03/21/2021 Abnormal urinalysis 12/15/2020 03/21/2021 Acute deep vein thrombosis ( DVT) of distal vein of left lower extremity 10/26/2020 03/21/2021 Change in bowel habit 07/08/2019 03/21/2021 Prediabetes 05/13/2019 03/21/2021 Obesity, Class I, BMI 30-34.9 01/30/2019 Last Assessment & Plan: Assessment: Body mass index is 34.01 kg/m . 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 No signs or symptoms of DVT/PE. The patient is at high risk for VTE. Plan: - Continue Lovenox 40mg daily SC. - SCD/KAIA - Encourage continued ambulation . DISPOSITION AND FOLLOW-UP 10/23/20132013 Overview: Patient is and lives in [place], [place]. At this time, we anticipate that the patient will be discharged home once clinically stable. Plan: - Discuss needs with patient. - Collaborate with Case management to facilitate DC process - Will likely need home oxygen. Desat study ordered. . Tobacco abuse 10/23/2013 11/12/2013 Overview: Active smoker of 75 pack years. Benefits of smoking cessation discussed and patient states she is actively trying to quit (down to less than a pack per day from 1.5 pack per day). Continued to reinforce need to stop smoking. Is being discharged on home oxygen. Plan -Continue to encourage smoking cessation. -Start nicotine patch . Acute postoperative pain 10/23/2013 014 Overview: Patient states adequate pain control with Vicodin, oxycodone, and Motrin added in an attempt to transition to all oral pain regimen. Plan -Patient will be discharged on Oxycodone and home dosing of Naprosyn -Monitor pain, reassess to keep at pain level 4 or below. . Atelectasis 10/23/2013 10/24/2013 Overview: S/P right VATS upper lobectomy 10/23/13. Wearing 2 L/min oxygen, 95% pulse ox. CXR shows bilateral atelectasis. PLAN: -Bronchopulmonary hygiene, cough, deep breathe, acapella use, frequent ambulation. . Rt VATS Wedge, then RULobectomy 10/20/2013 10/14/2015 Overview: Patient is an active smoker of 75 pack years, presented with a 1.4 cm spiculated, cavitary lesion in the right upper lung. PET scan showed increased uptake in the lesion with an SUV 5.5 and no evidence of hilar, mediastinal or extrathoracic disease. On 10/22/13, Dr. Calvert performed right VATS, right upper lobectomy, and lymphadenectomy (R2, R4, 7). Plan:: -Pain management -Out of bed, frequent ambulation -cough/deep breathe, acapella -regular diet -respiratory therapy- Desat study for home oxygen . Pain in joint, lower leg 05/01/2013 014 Tear of meniscus of left knee 02/16/2013 Fatigue 12/01/2012 11/12/2013 Snoring 12/01/2012 11/12/2013 Hyperglycemia 05/28/2012 01/02/2017 Mastalgia 09/04/2011 11/12/2013 CHRONIC AIRWAY OBSTRUCTION NEC 0 10/14/2015 Unspecified asthma(493.90) 11/21 Osteoporosis, unspecified 2020 History of lung cancer 6 Overview: squamous cell documented as of this encounter (statuses as of 10/11/2022) [facility]01-12-2023 History of Past illness Narrative* Problem Noted Date Resolved Date Abnormal cardiac enzyme level 09/06/2022 History of chronic obstructive airway disease 09/06/2022 History of type 2 diabetes mellitus 09/06/2022 09/06/2022 Dizziness 09/06/2022 09/06/2022 COPD exacerbation 02/13/2022 07/04/2022 Type 2 diabetes mellitus 07/14/2021 023 EKG abnormality 07/14/2021 07/17/2021 Chronic respiratory failure 07/14/202108/26 Last Assessment & Plan: Assessment: oxygen therapy at night, following pulmonary 2019 spirometry IMPRESSION: The flow volume demonstrates an obstructive pattern. Spirometry indicates severe obstruction. The reduced FVC may be due to obstruction: however concurrent restriction is not excluded. Lung volumes are suggested for clarification if c linically indicated. Electronically Signed On 05-07-2019 15:26:19 EDT by Mirza Manuel COPD with exacerbation 03/22/2021 3 EKG abnormalities 03/22/2021 03/25/2021 Overview: EK03/20/[address]-T changes with some terminal T wave inversions V1 through V4 not present on EKG 01/12/2021 Centrilobular emphysema 03/22/2021 09/06/19 23 On apixaban therapy 03/21/2021 08/01/2021 Overview: For prior pulmonary embolus Shortness of breath 12/15/2020 03/21/2021 Nausea and vomiting 12/15/2020 03/21/2021 Generalized weakness 12/15/2020 03/21/2021 Abnormal urinalysis 12/15/2020 03/21/2021 Acute deep vein thrombosis ( DVT) of distal vein of left lower extremity 10/26/2020 03/21/2021 Change in bowel habit 07/08/2019 03/21/2021 Prediabetes 05/13/2019 03/21/2021 Obesity, Class I, BMI 30-34.9 01/30/2019 Last Assessment & Plan: Assessment: Body mass index is 34.01 kg/m . 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 No signs or symptoms of DVT/PE. The patient is at high risk for VTE. Plan: - Continue Lovenox 40mg daily SC. - SCD/KAIA - Encourage continued ambulation . DISPOSITION AND FOLLOW-UP 10/23/20132013 Overview: Patient is and lives in [place], [place]. At this time, we anticipate that the patient will be discharged home once clinically stable. Plan: - Discuss needs with patient. - Collaborate with Case management to facilitate DC process - Will likely need home oxygen. Desat study ordered. . Tobacco abuse 10/23/2013 11/12/2013 Overview: Active smoker of 75 pack years. Benefits of smoking cessation discussed and patient states she is actively trying to quit (down to less than a pack per day from 1.5 pack per day). Continued to reinforce need to stop smoking. Is being discharged on home oxygen. Plan -Continue to encourage smoking cessation. -Start nicotine patch . Acute postoperative pain 10/23/2013 014 Overview: Patient states adequate pain control with Vicodin, oxycodone, and Motrin added in an attempt to transition to all oral pain regimen. Plan -Patient will be discharged on Oxycodone and home dosing of Naprosyn -Monitor pain, reassess to keep at pain level 4 or below. . Atelectasis 10/23/2013 10/24/2013 Overview: S/P right VATS upper lobectomy 10/23/13. Wearing 2 L/min oxygen, 95% pulse ox. CXR shows bilateral atelectasis. PLAN: -Bronchopulmonary hygiene, cough, deep breathe, acapella use, frequent ambulation. . Rt VATS Wedge, then RULobectomy 10/20/2013 10/14/2015 Overview: Patient is an active smoker of 75 pack years, presented with a 1.4 cm spiculated, cavitary lesion in the right upper lung. PET scan showed increased uptake in the lesion with an SUV 5.5 and no evidence of hilar, mediastinal or extrathoracic disease. On 10/22/13, Dr. Calvert performed right VATS, right upper lobectomy, and lymphadenectomy (R2, R4, 7). Plan:: -Pain management -Out of bed, frequent ambulation -cough/deep breathe, acapella -regular diet -respiratory therapy- Desat study for home oxygen . Pain in joint, lower leg 05/01/2013 014 Tear of meniscus of left knee 02/16/2013 Fatigue 12/01/2012 11/12/2013 Snoring 12/01/2012 11/12/2013 Hyperglycemia 05/28/2012 01/02/2017 Mastalgia 09/04/2011 11/12/2013 CHRONIC AIRWAY OBSTRUCTION NEC 0 10/14/2015 Unspecified asthma(493.90) 11/21 Osteoporosis, unspecified 2020 History of lung cancer 6 Overview: squamous cell documented as of this encounter (statuses as of 10/15/2022) [facility]01-12-2023 History of Past illness Narrative* Problem Noted Date Resolved Date Abnormal cardiac enzyme level 09/06/2022 History of chronic obstructive airway disease 09/06/2022 History of type 2 diabetes mellitus 09/06/2022 09/06/2022 Dizziness 09/06/2022 09/06/2022 COPD exacerbation 02/13/2022 07/04/2022 Type 2 diabetes mellitus 07/14/2021 023 EKG abnormality 07/14/2021 07/17/2021 Chronic respiratory failure 07/14/202108/26 Last Assessment & Plan: Assessment: oxygen therapy at night, following pulmonary 2019 spirometry IMPRESSION: The flow volume demonstrates an obstructive pattern. Spirometry indicates severe obstruction. The reduced FVC may be due to obstruction: however concurrent restriction is not excluded. Lung volumes are suggested for clarification if c linically indicated. Electronically Signed On 05-07-2019 15:26:19 EDT by Mirza Manuel COPD with exacerbation 03/22/2021 3 EKG abnormalities 03/22/2021 03/25/2021 Overview: EK03/20/[address]-T changes with some terminal T wave inversions V1 through V4 not present on EKG 01/12/2021 Centrilobular emphysema 03/22/2021 09/06/19 23 On apixaban therapy 03/21/2021 08/01/2021 Overview: For prior pulmonary embolus Shortness of breath 12/15/2020 03/21/2021 Nausea and vomiting 12/15/2020 03/21/2021 Generalized weakness 12/15/2020 03/21/2021 Abnormal urinalysis 12/15/2020 03/21/2021 Acute deep vein thrombosis ( DVT) of distal vein of left lower extremity 10/26/2020 03/21/2021 Change in bowel habit 07/08/2019 03/21/2021 Prediabetes 05/13/2019 03/21/2021 Obesity, Class I, BMI 30-34.9 01/30/2019 Last Assessment & Plan: Assessment: Body mass index is 34.01 kg/m . 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 No signs or symptoms of DVT/PE. The patient is at high risk for VTE. Plan: - Continue Lovenox 40mg daily SC. - SCD/KAIA - Encourage continued ambulation . DISPOSITION AND FOLLOW-UP 10/23/20132013 Overview: Patient is and lives in [place], [place]. At this time, we anticipate that the patient will be discharged home once clinically stable. Plan: - Discuss needs with patient. - Collaborate with Case management to facilitate DC process - Will likely need home oxygen. Desat study ordered. . Tobacco abuse 10/23/2013 11/12/2013 Overview: Active smoker of 75 pack years. Benefits of smoking cessation discussed and patient states she is actively trying to quit (down to less than a pack per day from 1.5 pack per day). Continued to reinforce need to stop smoking. Is being discharged on home oxygen. Plan -Continue to encourage smoking cessation. -Start nicotine patch . Acute postoperative pain 10/23/2013 014 Overview: Patient states adequate pain control with Vicodin, oxycodone, and Motrin added in an attempt to transition to all oral pain regimen. Plan -Patient will be discharged on Oxycodone and home dosing of Naprosyn -Monitor pain, reassess to keep at pain level 4 or below. . Atelectasis 10/23/2013 10/24/2013 Overview: S/P right VATS upper lobectomy 10/23/13. Wearing 2 L/min oxygen, 95% pulse ox. CXR shows bilateral atelectasis. PLAN: -Bronchopulmonary hygiene, cough, deep breathe, acapella use, frequent ambulation. . Rt VATS Wedge, then RULobectomy 10/20/2013 10/14/2015 Overview: Patient is an active smoker of 75 pack years, presented with a 1.4 cm spiculated, cavitary lesion in the right upper lung. PET scan showed increased uptake in the lesion with an SUV 5.5 and no evidence of hilar, mediastinal or extrathoracic disease. On 10/22/13, Dr. Calvert performed right VATS, right upper lobectomy, and lymphadenectomy (R2, R4, 7). Plan:: -Pain management -Out of bed, frequent ambulation -cough/deep breathe, acapella -regular diet -respiratory therapy- Desat study for home oxygen . Pain in joint, lower leg 05/01/2013 014 Tear of meniscus of left knee 02/16/2013 Fatigue 12/01/2012 11/12/2013 Snoring 12/01/2012 11/12/2013 Hyperglycemia 05/28/2012 01/02/2017 Mastalgia 09/04/2011 11/12/2013 CHRONIC AIRWAY OBSTRUCTION NEC 0 10/14/2015 Unspecified asthma(493.90) 11/21 Osteoporosis, unspecified 2020 History of lung cancer 6 Overview: squamous cell documented as of this encounter (statuses as of 10/18/2022) [facility]01-12-[facility] History of Past illness Narrative* Problem Noted Date Resolved Date Abnormal cardiac enzyme level 09/06/2022 History of chronic obstructive airway disease 09/06/2022 History of type 2 diabetes mellitus 09/06/2022 09/06/2022 Dizziness 09/06/2022 09/06/2022 COPD exacerbation 02/13/2022 07/04/2022 Type 2 diabetes mellitus 07/14/2021 023 EKG abnormality 07/14/2021 07/17/2021 Chronic respiratory failure 07/14/202108/26 Last Assessment & Plan: Assessment: oxygen therapy at night, following pulmonary 2019 spirometry IMPRESSION: The flow volume demonstrates an obstructive pattern. Spirometry indicates severe obstruction. The reduced FVC may be due to obstruction: however concurrent restriction is not excluded. Lung volumes are suggested for clarification if c linically indicated. Electronically Signed On 05-07-2019 15:26:19 EDT by Mirza Manuel COPD with exacerbation 03/22/2021 3 EKG abnormalities 03/22/2021 03/25/2021 Overview: EK03/20/[address]-T changes with some terminal T wave inversions V1 through V4 not present on EKG 01/12/2021 Centrilobular emphysema 03/22/2021 09/06/19 23 On apixaban therapy 03/21/2021 08/01/2021 Overview: For prior pulmonary embolus Shortness of breath 12/15/2020 03/21/2021 Nausea and vomiting 12/15/2020 03/21/2021 Generalized weakness 12/15/2020 03/21/2021 Abnormal urinalysis 12/15/2020 03/21/2021 Acute deep vein thrombosis ( DVT) of distal vein of left lower extremity 10/26/2020 03/21/2021 Change in bowel habit 07/08/2019 03/21/2021 Prediabetes 05/13/2019 03/21/2021 Obesity, Class I, BMI 30-34.9 01/30/2019 Last Assessment & Plan: Assessment: Body mass index is 34.01 kg/m . 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 No signs or symptoms of DVT/PE. The patient is at high risk for VTE. Plan: - Continue Lovenox 40mg daily SC. - SCD/KAIA - Encourage continued ambulation . DISPOSITION AND FOLLOW-UP 10/23/20132013 Overview: Patient is and lives in [place], [place]. At this time, we anticipate that the patient will be discharged home once clinically stable. Plan: - Discuss needs with patient. - Collaborate with Case management to facilitate DC process - Will likely need home oxygen. Desat study ordered. . Tobacco abuse 10/23/2013 11/12/2013 Overview: Active smoker of 75 pack years. Benefits of smoking cessation discussed and patient states she is actively trying to quit (down to less than a pack per day from 1.5 pack per day). Continued to reinforce need to stop smoking. Is being discharged on home oxygen. Plan -Continue to encourage smoking cessation. -Start nicotine patch . Acute postoperative pain 10/23/2013 014 Overview: Patient states adequate pain control with Vicodin, oxycodone, and Motrin added in an attempt to transition to all oral pain regimen. Plan -Patient will be discharged on Oxycodone and home dosing of Naprosyn -Monitor pain, reassess to keep at pain level 4 or below. . Atelectasis 10/23/2013 10/24/2013 Overview: S/P right VATS upper lobectomy 10/23/13. Wearing 2 L/min oxygen, 95% pulse ox. CXR shows bilateral atelectasis. PLAN: -Bronchopulmonary hygiene, cough, deep breathe, acapella use, frequent ambulation. . Rt VATS Wedge, then RULobectomy 10/20/2013 10/14/2015 Overview: Patient is an active smoker of 75 pack years, presented with a 1.4 cm spiculated, cavitary lesion in the right upper lung. PET scan showed increased uptake in the lesion with an SUV 5.5 and no evidence of hilar, mediastinal or extrathoracic disease. On 10/22/13, Dr. Calvert performed right VATS, right upper lobectomy, and lymphadenectomy (R2, R4, 7). Plan:: -Pain management -Out of bed, frequent ambulation -cough/deep breathe, acapella -regular diet -respiratory therapy- Desat study for home oxygen . Pain in joint, lower leg 05/01/2013 014 Tear of meniscus of left knee 02/16/2013 Fatigue 12/01/2012 11/12/2013 Snoring 12/01/2012 11/12/2013 Hyperglycemia 05/28/2012 01/02/2017 Mastalgia 09/04/2011 11/12/2013 CHRONIC AIRWAY OBSTRUCTION NEC 0 10/14/2015 Unspecified asthma(493.90) 11/21 Osteoporosis, unspecified 2020 History of lung cancer 6 Overview: squamous cell documented as of this encounter (statuses as of 10/18/2022) [facility] History of Past illness Narrative* Problem Noted Date Resolved Date Abnormal cardiac enzyme level 09/06/2022 History of chronic obstructive airway disease 09/06/2022 History of type 2 diabetes mellitus 09/06/2022 09/06/2022 Dizziness 09/06/2022 09/06/2022 COPD exacerbation 02/13/2022 07/04/2022 Type 2 diabetes mellitus 07/14/2021 023 EKG abnormality 07/14/2021 07/17/2021 Chronic respiratory failure 07/14/202108/26 Last Assessment & Plan: Assessment: oxygen therapy at night, following pulmonary 2019 spirometry IMPRESSION: The flow volume demonstrates an obstructive pattern. Spirometry indicates severe obstruction. The reduced FVC may be due to obstruction: however concurrent restriction is not excluded. Lung volumes are suggested for clarification if c linically indicated. Electronically Signed On 05-07-2019 15:26:19 EDT by Mirza Manuel COPD with exacerbation 03/22/2021 3 EKG abnormalities 03/22/2021 03/25/2021 Overview: EK03/20/[address]-T changes with some terminal T wave inversions V1 through V4 not present on EKG 01/12/2021 Centrilobular emphysema 03/22/2021 09/06/19 23 On apixaban therapy 03/21/2021 08/01/2021 Overview: For prior pulmonary embolus Shortness of breath 12/15/2020 03/21/2021 Nausea and vomiting 12/15/2020 03/21/2021 Generalized weakness 12/15/2020 03/21/2021 Abnormal urinalysis 12/15/2020 03/21/2021 Acute deep vein thrombosis ( DVT) of distal vein of left lower extremity 10/26/2020 03/21/2021 Change in bowel habit 07/08/2019 03/21/2021 Prediabetes 05/13/2019 03/21/2021 Obesity, Class I, BMI 30-34.9 01/30/2019 Last Assessment & Plan: Assessment: Body mass index is 34.01 kg/m . 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 No signs or symptoms of DVT/PE. The patient is at high risk for VTE. Plan: - Continue Lovenox 40mg daily SC. - SCD/KAIA - Encourage continued ambulation . DISPOSITION AND FOLLOW-UP 10/23/20132013 Overview: Patient is and lives in [place], [place]. At this time, we anticipate that the patient will be discharged home once clinically stable. Plan: - Discuss needs with patient. - Collaborate with Case management to facilitate DC process - Will likely need home oxygen. Desat study ordered. . Tobacco abuse 10/23/2013 11/12/2013 Overview: Active smoker of 75 pack years. Benefits of smoking cessation discussed and patient states she is actively trying to quit (down to less than a pack per day from 1.5 pack per day). Continued to reinforce need to stop smoking. Is being discharged on home oxygen. Plan -Continue to encourage smoking cessation. -Start nicotine patch . Acute postoperative pain 10/23/2013 014 Overview: Patient states adequate pain control with Vicodin, oxycodone, and Motrin added in an attempt to transition to all oral pain regimen. Plan -Patient will be discharged on Oxycodone and home dosing of Naprosyn -Monitor pain, reassess to keep at pain level 4 or below. . Atelectasis 10/23/2013 10/24/2013 Overview: S/P right VATS upper lobectomy 10/23/13. Wearing 2 L/min oxygen, 95% pulse ox. CXR shows bilateral atelectasis. PLAN: -Bronchopulmonary hygiene, cough, deep breathe, acapella use, frequent ambulation. . Rt VATS Wedge, then RULobectomy 10/20/2013 10/14/2015 Overview: Patient is an active smoker of 75 pack years, presented with a 1.4 cm spiculated, cavitary lesion in the right upper lung. PET scan showed increased uptake in the lesion with an SUV 5.5 and no evidence of hilar, mediastinal or extrathoracic disease. On 10/22/13, Dr. Calvert performed right VATS, right upper lobectomy, and lymphadenectomy (R2, R4, 7). Plan:: -Pain management -Out of bed, frequent ambulation -cough/deep breathe, acapella -regular diet -respiratory therapy- Desat study for home oxygen . Pain in joint, lower leg 05/01/2013 014 Tear of meniscus of left knee 02/16/2013 Fatigue 12/01/2012 11/12/2013 Snoring 12/01/2012 11/12/2013 Hyperglycemia 05/28/2012 01/02/2017 Mastalgia 09/04/2011 11/12/2013 CHRONIC AIRWAY OBSTRUCTION NEC 0 10/14/2015 Unspecified asthma(493.90) 11/21 Osteoporosis, unspecified 2020 History of lung cancer 6 Overview: squamous cell documented as of this encounter (statuses as of 10/23/2022) [facility]01-12-2023 History of Past illness Narrative* Problem Noted Date Resolved Date Abnormal cardiac enzyme level 09/06/2022 History of chronic obstructive airway disease 09/06/2022 History of type 2 diabetes mellitus 09/06/2022 09/06/2022 Dizziness 09/06/2022 09/06/2022 COPD exacerbation 02/13/2022 07/04/2022 Type 2 diabetes mellitus 07/14/2021 023 EKG abnormality 07/14/2021 07/17/2021 Chronic respiratory failure 07/14/202108/26 Last Assessment & Plan: Assessment: oxygen therapy at night, following pulmonary 2019 spirometry IMPRESSION: The flow volume demonstrates an obstructive pattern. Spirometry indicates severe obstruction. The reduced FVC may be due to obstruction: however concurrent restriction is not excluded. Lung volumes are suggested for clarification if c linically indicated. Electronically Signed On 05-07-2019 15:26:19 EDT by Mirza Manuel COPD with exacerbation 03/22/2021 3 EKG abnormalities 03/22/2021 03/25/2021 Overview: EK03/20/[address]-T changes with some terminal T wave inversions V1 through V4 not present on EKG 01/12/2021 Centrilobular emphysema 03/22/2021 09/06/19 23 On apixaban therapy 03/21/2021 08/01/2021 Overview: For prior pulmonary embolus Shortness of breath 12/15/2020 03/21/2021 Nausea and vomiting 12/15/2020 03/21/2021 Generalized weakness 12/15/2020 03/21/2021 Abnormal urinalysis 12/15/2020 03/21/2021 Acute deep vein thrombosis ( DVT) of distal vein of left lower extremity 10/26/2020 03/21/2021 Change in bowel habit 07/08/2019 03/21/2021 Prediabetes 05/13/2019 03/21/2021 Obesity, Class I, BMI 30-34.9 01/30/2019 Last Assessment & Plan: Assessment: Body mass index is 34.01 kg/m . 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 No signs or symptoms of DVT/PE. The patient is at high risk for VTE. Plan: - Continue Lovenox 40mg daily SC. - SCD/KAIA - Encourage continued ambulation . DISPOSITION AND FOLLOW-UP 10/23/20132013 Overview: Patient is and lives in [place], [place]. At this time, we anticipate that the patient will be discharged home once clinically stable. Plan: - Discuss needs with patient. - Collaborate with Case management to facilitate DC process - Will likely need home oxygen. Desat study ordered. . Tobacco abuse 10/23/2013 11/12/2013 Overview: Active smoker of 75 pack years. Benefits of smoking cessation discussed and patient states she is actively trying to quit (down to less than a pack per day from 1.5 pack per day). Continued to reinforce need to stop smoking. Is being discharged on home oxygen. Plan -Continue to encourage smoking cessation. -Start nicotine patch . Acute postoperative pain 10/23/2013 014 Overview: Patient states adequate pain control with Vicodin, oxycodone, and Motrin added in an attempt to transition to all oral pain regimen. Plan -Patient will be discharged on Oxycodone and home dosing of Naprosyn -Monitor pain, reassess to keep at pain level 4 or below. . Atelectasis 10/23/2013 10/24/2013 Overview: S/P right VATS upper lobectomy 10/23/13. Wearing 2 L/min oxygen, 95% pulse ox. CXR shows bilateral atelectasis. PLAN: -Bronchopulmonary hygiene, cough, deep breathe, acapella use, frequent ambulation. . Rt VATS Wedge, then RULobectomy 10/20/2013 10/14/2015 Overview: Patient is an active smoker of 75 pack years, presented with a 1.4 cm spiculated, cavitary lesion in the right upper lung. PET scan showed increased uptake in the lesion with an SUV 5.5 and no evidence of hilar, mediastinal or extrathoracic disease. On 10/22/13, Dr. Calvert performed right VATS, right upper lobectomy, and lymphadenectomy (R2, R4, 7). Plan:: -Pain management -Out of bed, frequent ambulation -cough/deep breathe, acapella -regular diet -respiratory therapy- Desat study for home oxygen . Pain in joint, lower leg 05/01/2013 014 Tear of meniscus of left knee 02/16/2013 Fatigue 12/01/2012 11/12/2013 Snoring 12/01/2012 11/12/2013 Hyperglycemia 05/28/2012 01/02/2017 Mastalgia 09/04/2011 11/12/2013 CHRONIC AIRWAY OBSTRUCTION NEC 0 10/14/2015 Unspecified asthma(493.90) 11/21 Osteoporosis, unspecified 2020 History of lung cancer 6 Overview: squamous cell documented as of this encounter (statuses as of 10/31/2022) [facility]01-12-2023 History of Past illness Narrative* Problem Noted Date Resolved Date Abnormal cardiac enzyme level 09/06/2022 History of chronic obstructive airway disease 09/06/2022 History of type 2 diabetes mellitus 09/06/2022 09/06/2022 Dizziness 09/06/2022 09/06/2022 COPD exacerbation 02/13/2022 07/04/2022 Type 2 diabetes mellitus 07/14/2021 023 EKG abnormality 07/14/2021 07/17/2021 Chronic respiratory failure 07/14/202108/26 Last Assessment & Plan: Assessment: oxygen therapy at night, following pulmonary 2019 spirometry IMPRESSION: The flow volume demonstrates an obstructive pattern. Spirometry indicates severe obstruction. The reduced FVC may be due to obstruction: however concurrent restriction is not excluded. Lung volumes are suggested for clarification if c linically indicated. Electronically Signed On 05-07-2019 15:26:19 EDT by Mirza Manuel COPD with exacerbation 03/22/2021 3 EKG abnormalities 03/22/2021 03/25/2021 Overview: EK03/20/[address]-T changes with some terminal T wave inversions V1 through V4 not present on EKG 01/12/2021 Centrilobular emphysema 03/22/2021 09/06/19 23 On apixaban therapy 03/21/2021 08/01/2021 Overview: For prior pulmonary embolus Shortness of breath 12/15/2020 03/21/2021 Nausea and vomiting 12/15/2020 03/21/2021 Generalized weakness 12/15/2020 03/21/2021 Abnormal urinalysis 12/15/2020 03/21/2021 Acute deep vein thrombosis ( DVT) of distal vein of left lower extremity 10/26/2020 03/21/2021 Change in bowel habit 07/08/2019 03/21/2021 Prediabetes 05/13/2019 03/21/2021 Obesity, Class I, BMI 30-34.9 01/30/2019 Last Assessment & Plan: Assessment: Body mass index is 34.01 kg/m . 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 No signs or symptoms of DVT/PE. The patient is at high risk for VTE. Plan: - Continue Lovenox 40mg daily SC. - SCD/KAIA - Encourage continued ambulation . DISPOSITION AND FOLLOW-UP 10/23/20132013 Overview: Patient is and lives in [place], [place]. At this time, we anticipate that the patient will be discharged home once clinically stable. Plan: - Discuss needs with patient. - Collaborate with Case management to facilitate DC process - Will likely need home oxygen. Desat study ordered. . Tobacco abuse 10/23/2013 11/12/2013 Overview: Active smoker of 75 pack years. Benefits of smoking cessation discussed and patient states she is actively trying to quit (down to less than a pack per day from 1.5 pack per day). Continued to reinforce need to stop smoking. Is being discharged on home oxygen. Plan -Continue to encourage smoking cessation. -Start nicotine patch . Acute postoperative pain 10/23/2013 014 Overview: Patient states adequate pain control with Vicodin, oxycodone, and Motrin added in an attempt to transition to all oral pain regimen. Plan -Patient will be discharged on Oxycodone and home dosing of Naprosyn -Monitor pain, reassess to keep at pain level 4 or below. . Atelectasis 10/23/2013 10/24/2013 Overview: S/P right VATS upper lobectomy 10/23/13. Wearing 2 L/min oxygen, 95% pulse ox. CXR shows bilateral atelectasis. PLAN: -Bronchopulmonary hygiene, cough, deep breathe, acapella use, frequent ambulation. . Rt VATS Wedge, then RULobectomy 10/20/2013 10/14/2015 Overview: Patient is an active smoker of 75 pack years, presented with a 1.4 cm spiculated, cavitary lesion in the right upper lung. PET scan showed increased uptake in the lesion with an SUV 5.5 and no evidence of hilar, mediastinal or extrathoracic disease. On 10/22/13, Dr. Calvert performed right VATS, right upper lobectomy, and lymphadenectomy (R2, R4, 7). Plan:: -Pain management -Out of bed, frequent ambulation -cough/deep breathe, acapella -regular diet -respiratory therapy- Desat study for home oxygen . Pain in joint, lower leg 05/01/2013 014 Tear of meniscus of left knee 02/16/2013 Fatigue 12/01/2012 11/12/2013 Snoring 12/01/2012 11/12/2013 Hyperglycemia 05/28/2012 01/02/2017 Mastalgia 09/04/2011 11/12/2013 CHRONIC AIRWAY OBSTRUCTION NEC 0 10/14/2015 Unspecified asthma(493.90) 11/21 Osteoporosis, unspecified 2020 History of lung cancer 6 Overview: squamous cell documented as of this encounter (statuses as of 11/09/2022) [facility]01-12-2023 History of Past illness Narrative* Problem Noted Date Resolved Date Abnormal cardiac enzyme level 09/06/2022 History of chronic obstructive airway disease 09/06/2022 History of type 2 diabetes mellitus 09/06/2022 09/06/2022 Dizziness 09/06/2022 09/06/2022 COPD exacerbation 02/13/2022 07/04/2022 Type 2 diabetes mellitus 07/14/2021 023 EKG abnormality 07/14/2021 07/17/2021 Chronic respiratory failure 07/14/202108/26 Last Assessment & Plan: Assessment: oxygen therapy at night, following pulmonary 2019 spirometry IMPRESSION: The flow volume demonstrates an obstructive pattern. Spirometry indicates severe obstruction. The reduced FVC may be due to obstruction: however concurrent restriction is not excluded. Lung volumes are suggested for clarification if c linically indicated. Electronically Signed On 05-07-2019 15:26:19 EDT by Mirza Manuel COPD with exacerbation 03/22/2021 3 EKG abnormalities 03/22/2021 03/25/2021 Overview: EK03/20/[address]-T changes with some terminal T wave inversions V1 through V4 not present on EKG 01/12/2021 Centrilobular emphysema 03/22/2021 09/06/19 23 On apixaban therapy 03/21/2021 08/01/2021 Overview: For prior pulmonary embolus Shortness of breath 12/15/2020 03/21/2021 Nausea and vomiting 12/15/2020 03/21/2021 Generalized weakness 12/15/2020 03/21/2021 Abnormal urinalysis 12/15/2020 03/21/2021 Acute deep vein thrombosis ( DVT) of distal vein of left lower extremity 10/26/2020 03/21/2021 Change in bowel habit 07/08/2019 03/21/2021 Prediabetes 05/13/2019 03/21/2021 Obesity, Class I, BMI 30-34.9 01/30/2019 Last Assessment & Plan: Assessment: Body mass index is 34.01 kg/m . 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 No signs or symptoms of DVT/PE. The patient is at high risk for VTE. Plan: - Continue Lovenox 40mg daily SC. - SCD/KAIA - Encourage continued ambulation . DISPOSITION AND FOLLOW-UP 10/23/20132013 Overview: Patient is and lives in [place], [place]. At this time, we anticipate that the patient will be discharged home once clinically stable. Plan: - Discuss needs with patient. - Collaborate with Case management to facilitate DC process - Will likely need home oxygen. Desat study ordered. . Tobacco abuse 10/23/2013 11/12/2013 Overview: Active smoker of 75 pack years. Benefits of smoking cessation discussed and patient states she is actively trying to quit (down to less than a pack per day from 1.5 pack per day). Continued to reinforce need to stop smoking. Is being discharged on home oxygen. Plan -Continue to encourage smoking cessation. -Start nicotine patch . Acute postoperative pain 10/23/2013 014 Overview: Patient states adequate pain control with Vicodin, oxycodone, and Motrin added in an attempt to transition to all oral pain regimen. Plan -Patient will be discharged on Oxycodone and home dosing of Naprosyn -Monitor pain, reassess to keep at pain level 4 or below. . Atelectasis 10/23/2013 10/24/2013 Overview: S/P right VATS upper lobectomy 10/23/13. Wearing 2 L/min oxygen, 95% pulse ox. CXR shows bilateral atelectasis. PLAN: -Bronchopulmonary hygiene, cough, deep breathe, acapella use, frequent ambulation. . Rt VATS Wedge, then RULobectomy 10/20/2013 10/14/2015 Overview: Patient is an active smoker of 75 pack years, presented with a 1.4 cm spiculated, cavitary lesion in the right upper lung. PET scan showed increased uptake in the lesion with an SUV 5.5 and no evidence of hilar, mediastinal or extrathoracic disease. On 10/22/13, Dr. Calvert performed right VATS, right upper lobectomy, and lymphadenectomy (R2, R4, 7). Plan:: -Pain management -Out of bed, frequent ambulation -cough/deep breathe, acapella -regular diet -respiratory therapy- Desat study for home oxygen . Pain in joint, lower leg 05/01/2013 014 Tear of meniscus of left knee 02/16/2013 Fatigue 12/01/2012 11/12/2013 Snoring 12/01/2012 11/12/2013 Hyperglycemia 05/28/2012 01/02/2017 Mastalgia 09/04/2011 11/12/2013 CHRONIC AIRWAY OBSTRUCTION NEC 0 10/14/2015 Unspecified asthma(493.90) 11/21 Osteoporosis, unspecified 2020 History of lung cancer 6 Overview: squamous cell documented as of this encounter (statuses as of 11/09/2022) [facility]01-12-[facility] History of Past illness Narrative* Problem Noted Date Resolved Date Abnormal cardiac enzyme level 09/06/2022 History of chronic obstructive airway disease 09/06/2022 History of type 2 diabetes mellitus 09/06/2022 09/06/2022 Dizziness 09/06/2022 09/06/2022 COPD exacerbation 02/13/2022 07/04/2022 Type 2 diabetes mellitus 07/14/2021 023 EKG abnormality 07/14/2021 07/17/2021 Chronic respiratory failure 07/14/202108/26 Last Assessment & Plan: Assessment: oxygen therapy at night, following pulmonary 2019 spirometry IMPRESSION: The flow volume demonstrates an obstructive pattern. Spirometry indicates severe obstruction. The reduced FVC may be due to obstruction: however concurrent restriction is not excluded. Lung volumes are suggested for clarification if c linically indicated. Electronically Signed On 05-07-2019 15:26:19 EDT by Mirza Manuel COPD with exacerbation 03/22/2021 EKG abnormalities 03/22/2021 03/25/2021 Overview: EK03/20/[address]-T changes with some terminal T wave inversions V1 through V4 not present on EKG 01/12/2021 Centrilobular emphysema 03/22/2021 09/06/19 23 On apixaban therapy 03/21/2021 08/01/2021 Overview: For prior pulmonary embolus Shortness of breath 12/15/2020 03/21/2021 Nausea and vomiting 12/15/2020 03/21/2021 Generalized weakness 12/15/2020 03/21/2021 Abnormal urinalysis 12/15/2020 03/21/2021 Acute deep vein thrombosis ( DVT) of distal vein of left lower extremity 10/26/2020 03/21/2021 Change in bowel habit 07/08/2019 03/21/2021 Prediabetes 05/13/2019 03/21/2021 Obesity, Class I, BMI 30-34.9 01/30/2019 Last Assessment & Plan: Assessment: Body mass index is 34.01 kg/m . 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 No signs or symptoms of DVT/PE. The patient is at high risk for VTE. Plan: - Continue Lovenox 40mg daily SC. - SCD/KAIA - Encourage continued ambulation . DISPOSITION AND FOLLOW-UP 10/23/20132013 Overview: Patient is and lives in [place], [place]. At this time, we anticipate that the patient will be discharged home once clinically stable. Plan: - Discuss needs with patient. - Collaborate with Case management to facilitate DC process - Will likely need home oxygen. Desat study ordered. . Tobacco abuse 10/23/2013 11/12/2013 Overview: Active smoker of 75 pack years. Benefits of smoking cessation discussed and patient states she is actively trying to quit (down to less than a pack per day from 1.5 pack per day). Continued to reinforce need to stop smoking. Is being discharged on home oxygen. Plan -Continue to encourage smoking cessation. -Start nicotine patch . Acute postoperative pain 10/23/2013 014 Overview: Patient states adequate pain control with Vicodin, oxycodone, and Motrin added in an attempt to transition to all oral pain regimen. Plan -Patient will be discharged on Oxycodone and home dosing of Naprosyn -Monitor pain, reassess to keep at pain level 4 or below. . Atelectasis 10/23/2013 10/24/2013 Overview: S/P right VATS upper lobectomy 10/23/13. Wearing 2 L/min oxygen, 95% pulse ox. CXR shows bilateral atelectasis. PLAN: -Bronchopulmonary hygiene, cough, deep breathe, acapella use, frequent ambulation. . Rt VATS Wedge, then RULobectomy 10/20/2013 10/14/2015 Overview: Patient is an active smoker of 75 pack years, presented with a 1.4 cm spiculated, cavitary lesion in the right upper lung. PET scan showed increased uptake in the lesion with an SUV 5.5 and no evidence of hilar, mediastinal or extrathoracic disease. On 10/22/13, Dr. Calvert performed right VATS, right upper lobectomy, and lymphadenectomy (R2, R4, 7). Plan:: -Pain management -Out of bed, frequent ambulation -cough/deep breathe, acapella -regular diet -respiratory therapy- Desat study for home oxygen . Pain in joint, lower leg 05/01/2013 014 Tear of meniscus of left knee 02/16/2013 Fatigue 12/01/2012 11/12/2013 Snoring 12/01/2012 11/12/2013 Hyperglycemia 05/28/2012 01/02/2017 Mastalgia 09/04/2011 11/12/2013 CHRONIC AIRWAY OBSTRUCTION NEC 0 10/14/2015 Unspecified asthma(493.90) 11/21 Osteoporosis, unspecified 2020 History of lung cancer 6 Overview: squamous cell documented as of this encounter (statuses as of 11/19/2022) [facility] History of Past illness Narrative* Problem Noted Date Resolved Date Abnormal cardiac enzyme level 09/06/2022 History of chronic obstructive airway disease 09/06/2022 History of type 2 diabetes mellitus 09/06/2022 09/06/2022 Dizziness 09/06/2022 09/06/2022 COPD exacerbation 02/13/2022 07/04/2022 Type 2 diabetes mellitus 07/14/2021 023 EKG abnormality 07/14/2021 07/17/2021 Chronic respiratory failure 07/14/202108/26 Last Assessment & Plan: Assessment: oxygen therapy at night, following pulmonary 2019 spirometry IMPRESSION: The flow volume demonstrates an obstructive pattern. Spirometry indicates severe obstruction. The reduced FVC may be due to obstruction: however concurrent restriction is not excluded. Lung volumes are suggested for clarification if c linically indicated. Electronically Signed On 05-07-2019 15:26:19 EDT by Mirza Manuel COPD with exacerbation 03/22/2021 EKG abnormalities 03/22/2021 03/25/2021 Overview: EK03/20/[address]-T changes with some terminal T wave inversions V1 through V4 not present on EKG 01/12/2021 Centrilobular emphysema 03/22/2021 09/06/19 23 On apixaban therapy 03/21/2021 08/01/2021 Overview: For prior pulmonary embolus Shortness of breath 12/15/2020 03/21/2021 Nausea and vomiting 12/15/2020 03/21/2021 Generalized weakness 12/15/2020 03/21/2021 Abnormal urinalysis 12/15/2020 03/21/2021 Acute deep vein thrombosis ( DVT) of distal vein of left lower extremity 10/26/2020 03/21/2021 Change in bowel habit 07/08/2019 03/21/2021 Prediabetes 05/13/2019 03/21/2021 Obesity, Class I, BMI 30-34.9 01/30/2019 Last Assessment & Plan: Assessment: Body mass index is 34.01 kg/m . 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 No signs or symptoms of DVT/PE. The patient is at high risk for VTE. Plan: - Continue Lovenox 40mg daily SC. - SCD/KAIA - Encourage continued ambulation . DISPOSITION AND FOLLOW-UP 10/23/20132013 Overview: Patient is and lives in [place], [place]. At this time, we anticipate that the patient will be discharged home once clinically stable. Plan: - Discuss needs with patient. - Collaborate with Case management to facilitate DC process - Will likely need home oxygen. Desat study ordered. . Tobacco abuse 10/23/2013 11/12/2013 Overview: Active smoker of 75 pack years. Benefits of smoking cessation discussed and patient states she is actively trying to quit (down to less than a pack per day from 1.5 pack per day). Continued to reinforce need to stop smoking. Is being discharged on home oxygen. Plan -Continue to encourage smoking cessation. -Start nicotine patch . Acute postoperative pain 10/23/2013 014 Overview: Patient states adequate pain control with Vicodin, oxycodone, and Motrin added in an attempt to transition to all oral pain regimen. Plan -Patient will be discharged on Oxycodone and home dosing of Naprosyn -Monitor pain, reassess to keep at pain level 4 or below. . Atelectasis 10/23/2013 10/24/2013 Overview: S/P right VATS upper lobectomy 10/23/13. Wearing 2 L/min oxygen, 95% pulse ox. CXR shows bilateral atelectasis. PLAN: -Bronchopulmonary hygiene, cough, deep breathe, acapella use, frequent ambulation. . Rt VATS Wedge, then RULobectomy 10/20/2013 10/14/2015 Overview: Patient is an active smoker of 75 pack years, presented with a 1.4 cm spiculated, cavitary lesion in the right upper lung. PET scan showed increased uptake in the lesion with an SUV 5.5 and no evidence of hilar, mediastinal or extrathoracic disease. On 10/22/13, Dr. Calvert performed right VATS, right upper lobectomy, and lymphadenectomy (R2, R4, 7). Plan:: -Pain management -Out of bed, frequent ambulation -cough/deep breathe, acapella -regular diet -respiratory therapy- Desat study for home oxygen . Pain in joint, lower leg 05/01/2013 014 Tear of meniscus of left knee 02/16/2013 Fatigue 12/01/2012 11/12/2013 Snoring 12/01/2012 11/12/2013 Hyperglycemia 05/28/2012 01/02/2017 Mastalgia 09/04/2011 11/12/2013 CHRONIC AIRWAY OBSTRUCTION NEC 0 10/14/2015 Unspecified asthma(493.90) 11/21 Osteoporosis, unspecified 2020 History of lung cancer 6 Overview: squamous cell documented as of this encounter (statuses as of 11/23/2022) [facility]01-12-2023 History of Past illness Narrative* Problem Noted Date Resolved Date Abnormal cardiac enzyme level 09/06/2022 History of chronic obstructive airway disease 09/06/2022 History of type 2 diabetes mellitus 09/06/2022 09/06/2022 Dizziness 09/06/2022 09/06/2022 COPD exacerbation 02/13/2022 07/04/2022 Type 2 diabetes mellitus 07/14/2021 023 EKG abnormality 07/14/2021 07/17/2021 Chronic respiratory failure 07/14/202108/26 Last Assessment & Plan: Assessment: oxygen therapy at night, following pulmonary 2019 spirometry IMPRESSION: The flow volume demonstrates an obstructive pattern. Spirometry indicates severe obstruction. The reduced FVC may be due to obstruction: however concurrent restriction is not excluded. Lung volumes are suggested for clarification if c linically indicated. Electronically Signed On 05-07-2019 15:26:19 EDT by Mirza Manuel COPD with exacerbation 03/22/2021 3 EKG abnormalities 03/22/2021 03/25/2021 Overview: EK03/20/[address]-T changes with some terminal T wave inversions V1 through V4 not present on EKG 01/12/2021 Centrilobular emphysema 03/22/2021 09/06/19 23 On apixaban therapy 03/21/2021 08/01/2021 Overview: For prior pulmonary embolus Shortness of breath 12/15/2020 03/21/2021 Nausea and vomiting 12/15/2020 03/21/2021 Generalized weakness 12/15/2020 03/21/2021 Abnormal urinalysis 12/15/2020 03/21/2021 Acute deep vein thrombosis ( DVT) of distal vein of left lower extremity 10/26/2020 03/21/2021 Change in bowel habit 07/08/2019 03/21/2021 Prediabetes 05/13/2019 03/21/2021 Obesity, Class I, BMI 30-34.9 01/30/2019 Last Assessment & Plan: Assessment: Body mass index is 34.01 kg/m . 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 No signs or symptoms of DVT/PE. The patient is at high risk for VTE. Plan: - Continue Lovenox 40mg daily SC. - SCD/KAIA - Encourage continued ambulation . DISPOSITION AND FOLLOW-UP 10/23/20132013 Overview: Patient is and lives in [place], [place]. At this time, we anticipate that the patient will be discharged home once clinically stable. Plan: - Discuss needs with patient. - Collaborate with Case management to facilitate DC process - Will likely need home oxygen. Desat study ordered. . Tobacco abuse 10/23/2013 11/12/2013 Overview: Active smoker of 75 pack years. Benefits of smoking cessation discussed and patient states she is actively trying to quit (down to less than a pack per day from 1.5 pack per day). Continued to reinforce need to stop smoking. Is being discharged on home oxygen. Plan -Continue to encourage smoking cessation. -Start nicotine patch . Acute postoperative pain 10/23/2013 014 Overview: Patient states adequate pain control with Vicodin, oxycodone, and Motrin added in an attempt to transition to all oral pain regimen. Plan -Patient will be discharged on Oxycodone and home dosing of Naprosyn -Monitor pain, reassess to keep at pain level 4 or below. . Atelectasis 10/23/2013 10/24/2013 Overview: S/P right VATS upper lobectomy 10/23/13. Wearing 2 L/min oxygen, 95% pulse ox. CXR shows bilateral atelectasis. PLAN: -Bronchopulmonary hygiene, cough, deep breathe, acapella use, frequent ambulation. . Rt VATS Wedge, then RULobectomy 10/20/2013 10/14/2015 Overview: Patient is an active smoker of 75 pack years, presented with a 1.4 cm spiculated, cavitary lesion in the right upper lung. PET scan showed increased uptake in the lesion with an SUV 5.5 and no evidence of hilar, mediastinal or extrathoracic disease. On 10/22/13, Dr. Calvert performed right VATS, right upper lobectomy, and lymphadenectomy (R2, R4, 7). Plan:: -Pain management -Out of bed, frequent ambulation -cough/deep breathe, acapella -regular diet -respiratory therapy- Desat study for home oxygen . Pain in joint, lower leg 05/01/2013 014 Tear of meniscus of left knee 02/16/2013 Fatigue 12/01/2012 11/12/2013 Snoring 12/01/2012 11/12/2013 Hyperglycemia 05/28/2012 01/02/2017 Mastalgia 09/04/2011 11/12/2013 CHRONIC AIRWAY OBSTRUCTION NEC 0 10/14/2015 Unspecified asthma(493.90) 11/21 Osteoporosis, unspecified 2020 History of lung cancer 6 Overview: squamous cell documented as of this encounter (statuses as of 01/25/2023) [facility]01-12-2023 History of Past illness Narrative* Problem Noted Date Diagnosed Date Resolved Date Abnormal cardiac enzyme level 09/06/2022 09/06/2022 History of chronic obstructive airway disease 09/06/19 23 09/06/2022 History of type 2 diabetes mellitus 09/06/2022 09/06/2022 Dizziness 09/06/2022 09/06/2022 COPD exacerbation 02/13/2022 07/04/2022 Type 2 diabetes mellitus 07/14/202107/2023 EKG abnormality 07/14/2021 07/17/2021 Chronic respiratory failure 07/14/2021 09/06/2022 Last Assessment & Plan: Assessment: oxygen therapy at night, following pulmonary 2019 spirometry IMPRESSION: The flow volume demonstrates an obstructive pattern. Spirometry indicates severe obstruction. The reduced FVC may be due to obstruction: however concurrent restriction is not excluded. Lung volumes are suggested for clarification if c linically indicated. Electronically Signed On 05-07-2019 15:26:19 EDT by Mirza Manuel COPD with exacerbation 03/22/202109/06 EKG abnormalities 03/22/2021 03/25/2021 Overview: EK03/20/[address]-T changes with some terminal T wave inversions V1 through V4 not present on EKG 01/12/2021 Centrilobular emphysema 03/22/202108/26 On apixaban therapy 03/21/2021 08/01/20 21 Overview: For prior pulmonary embolus Shortness of breath 12/15/2020 03/21/20 21 Nausea and vomiting 12/15/2020 03/21/20 21 Generalized weakness 12/15/2020 021 Abnormal urinalysis 12/15/2020 03/21/20 21 Acute deep vein thrombosis ( DVT) of distal vein of left lower extremity 10/26/2020 03/21/2021 Change in bowel habit 07/08/20192020 Prediabetes 05/13/2019 03/21/2021 Obesity, Class I, BMI 30-34.9 01/30/2019 09/06/2022 Last Assessment & Plan: Assessment: Body mass index is 34.01 kg/m . 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 No signs or symptoms of DVT/PE. The patient is at high risk for VTE. Plan: - Continue Lovenox 40mg daily SC. - SCD/KAIA - Encourage continued ambulation . DISPOSITION AND FOLLOW-UP 10/23/2013 Overview: Patient is and lives in [place], [place]. At this time, we anticipate that the patient will be discharged home once clinically stable. Plan: - Discuss needs with patient. - Collaborate with Case management to facilitate DC process - Will likely need home oxygen. Desat study ordered. . Tobacco abuse 10/23/2013 11/12/2013 Overview: Active smoker of 75 pack years. Benefits of smoking cessation discussed and patient states she is actively trying to quit (down to less than a pack per day from 1.5 pack per day). Continued to reinforce need to stop smoking. Is being discharged on home oxygen. Plan -Continue to encourage smoking cessation. -Start nicotine patch . Acute postoperative pain 10/23/2013 Overview: Patient states adequate pain control with Vicodin, oxycodone, and Motrin added in an attempt to transition to all oral pain regimen. Plan -Patient will be discharged on Oxycodone and home dosing of Naprosyn -Monitor pain, reassess to keep at pain level 4 or below. . Atelectasis 10/23/2013 10/24/2013 Overview: S/P right VATS upper lobectomy 10/23/13. Wearing 2 L/min oxygen, 95% pulse ox. CXR shows bilateral atelectasis. PLAN: -Bronchopulmonary hygiene, cough, deep breathe, acapella use, frequent ambulation. . Rt VATS Wedge, then RULobectomy 10/20/2013 10/14/2015 Overview: Patient is an active smoker of 75 pack years, presented with a 1.4 cm spiculated, cavitary lesion in the right upper lung. PET scan showed increased uptake in the lesion with an SUV 5.5 and no evidence of hilar, mediastinal or extrathoracic disease. On 10/22/13, Dr. Calvert performed right VATS, right upper lobectomy, and lymphadenectomy (R2, R4, 7). Plan:: -Pain management -Out of bed, frequent ambulation -cough/deep breathe, acapella -regular diet -respiratory therapy- Desat study for home oxygen . Pain in joint, lower leg 05/01/2013 Tear of meniscus of left knee 02/16/2013 10/14/2015 Fatigue 12/01/2012 11/12/2013 Snoring 12/01/2012 11/12/2013 Hyperglycemia 05/28/2012 01/02/2017 Mastalgia 09/04/2011 11/12/2013 CHRONIC AIRWAY OBSTRUCTION NEC 10/14/2015 Unspecified asthma(493.90) 0 11/21/2016 Osteoporosis, unspecified History of lung cancer 10/14 Overview: squamous cell documented as of this encounter (statuses as of 04/29/2023) [facility]01-12-2023 History of Past illness Narrative* Problem Noted Date Diagnosed Date Resolved Date Abnormal cardiac enzyme level 09/06/2022 09/06/2022 History of chronic obstructive airway disease 09/06/19 23 09/06/2022 History of type 2 diabetes mellitus 09/06/2022 09/06/2022 Dizziness 09/06/2022 09/06/2022 COPD exacerbation 02/13/2022 07/04/2022 Type 2 diabetes mellitus 07/14/202107/2023 EKG abnormality 07/14/2021 07/17/2021 Chronic respiratory failure 07/14/2021 09/06/2022 Last Assessment & Plan: Assessment: oxygen therapy at night, following pulmonary 2019 spirometry IMPRESSION: The flow volume demonstrates an obstructive pattern. Spirometry indicates severe obstruction. The reduced FVC may be due to obstruction: however concurrent restriction is not excluded. Lung volumes are suggested for clarification if c linically indicated. Electronically Signed On 05-07-2019 15:26:19 EDT by Mirza Manuel COPD with exacerbation 03/22/202109/06 EKG abnormalities 03/22/2021 03/25/2021 Overview: EK03/20/[address]-T changes with some terminal T wave inversions V1 through V4 not present on EKG 01/12/2021 Centrilobular emphysema 03/22/202108/26 On apixaban therapy 03/21/2021 08/01/20 21 Overview: For prior pulmonary embolus Shortness of breath 12/15/2020 03/21/20 21 Nausea and vomiting 12/15/2020 03/21/20 21 Generalized weakness 12/15/2020 021 Abnormal urinalysis 12/15/2020 03/21/20 21 Acute deep vein thrombosis ( DVT) of distal vein of left lower extremity 10/26/2020 03/21/2021 Change in bowel habit 07/08/20192020 Prediabetes 05/13/2019 03/21/2021 Obesity, Class I, BMI 30-34.9 01/30/2019 09/06/2022 Last Assessment & Plan: Assessment: Body mass index is 34.01 kg/m . 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 No signs or symptoms of DVT/PE. The patient is at high risk for VTE. Plan: - Continue Lovenox 40mg daily SC. - SCD/KAIA - Encourage continued ambulation . DISPOSITION AND FOLLOW-UP 10/23/2013 Overview: Patient is and lives in [place], [place]. At this time, we anticipate that the patient will be discharged home once clinically stable. Plan: - Discuss needs with patient. - Collaborate with Case management to facilitate DC process - Will likely need home oxygen. Desat study ordered. . Tobacco abuse 10/23/2013 11/12/2013 Overview: Active smoker of 75 pack years. Benefits of smoking cessation discussed and patient states she is actively trying to quit (down to less than a pack per day from 1.5 pack per day). Continued to reinforce need to stop smoking. Is being discharged on home oxygen. Plan -Continue to encourage smoking cessation. -Start nicotine patch . Acute postoperative pain 10/23/2013 Overview: Patient states adequate pain control with Vicodin, oxycodone, and Motrin added in an attempt to transition to all oral pain regimen. Plan -Patient will be discharged on Oxycodone and home dosing of Naprosyn -Monitor pain, reassess to keep at pain level 4 or below. . Atelectasis 10/23/2013 10/24/2013 Overview: S/P right VATS upper lobectomy 10/23/13. Wearing 2 L/min oxygen, 95% pulse ox. CXR shows bilateral atelectasis. PLAN: -Bronchopulmonary hygiene, cough, deep breathe, acapella use, frequent ambulation. . Rt VATS Wedge, then RULobectomy 10/20/2013 10/14/2015 Overview: Patient is an active smoker of 75 pack years, presented with a 1.4 cm spiculated, cavitary lesion in the right upper lung. PET scan showed increased uptake in the lesion with an SUV 5.5 and no evidence of hilar, mediastinal or extrathoracic disease. On 10/22/13, Dr. Calvert performed right VATS, right upper lobectomy, and lymphadenectomy (R2, R4, 7). Plan:: -Pain management -Out of bed, frequent ambulation -cough/deep breathe, acapella -regular diet -respiratory therapy- Desat study for home oxygen . Pain in joint, lower leg 05/01/2013 Tear of meniscus of left knee 02/16/2013 10/14/2015 Fatigue 12/01/2012 11/12/2013 Snoring 12/01/2012 11/12/2013 Hyperglycemia 05/28/2012 01/02/2017 Mastalgia 09/04/2011 11/12/2013 CHRONIC AIRWAY OBSTRUCTION NEC 10/14/2015 Unspecified asthma(493.90) 0 11/21/2016 Osteoporosis, unspecified History of lung cancer 10/14 Overview: squamous cell documented as of this encounter (statuses as of 05/21/2023) [facility]01-12-2023 History of Past illness Narrative* Problem Noted Date Diagnosed Date Resolved Date Abnormal cardiac enzyme level 09/06/2022 09/06/2022 History of chronic obstructive airway disease 09/06/19 23 09/06/2022 History of type 2 diabetes mellitus 09/06/2022 09/06/2022 Dizziness 09/06/2022 09/06/2022 COPD exacerbation 02/13/2022 07/04/2022 Type 2 diabetes mellitus 07/14/202107/2023 EKG abnormality 07/14/2021 07/17/2021 Chronic respiratory failure 07/14/2021 09/06/2022 Last Assessment & Plan: Assessment: oxygen therapy at night, following pulmonary 2019 spirometry IMPRESSION: The flow volume demonstrates an obstructive pattern. Spirometry indicates severe obstruction. The reduced FVC may be due to obstruction: however concurrent restriction is not excluded. Lung volumes are suggested for clarification if c linically indicated. Electronically Signed On 05-07-2019 15:26:19 EDT by Mirza Manuel COPD with exacerbation 03/22/202109/06 EKG abnormalities 03/22/2021 03/25/2021 Overview: EK03/20/[address]-T changes with some terminal T wave inversions V1 through V4 not present on EKG 01/12/2021 Centrilobular emphysema 03/22/202108/26 On apixaban therapy 03/21/2021 08/01/20 21 Overview: For prior pulmonary embolus Shortness of breath 12/15/2020 03/21/20 21 Nausea and vomiting 12/15/2020 03/21/20 21 Generalized weakness 12/15/2020 021 Abnormal urinalysis 12/15/2020 03/21/20 21 Acute deep vein thrombosis ( DVT) of distal vein of left lower extremity 10/26/2020 03/21/2021 Change in bowel habit 07/08/20192020 Prediabetes 05/13/2019 03/21/2021 Obesity, Class I, BMI 30-34.9 01/30/2019 09/06/2022 Last Assessment & Plan: Assessment: Body mass index is 34.01 kg/m . 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 No signs or symptoms of DVT/PE. The patient is at high risk for VTE. Plan: - Continue Lovenox 40mg daily SC. - SCD/KAIA - Encourage continued ambulation . DISPOSITION AND FOLLOW-UP 10/23/2013 Overview: Patient is and lives in [place], [place]. At this time, we anticipate that the patient will be discharged home once clinically stable. Plan: - Discuss needs with patient. - Collaborate with Case management to facilitate DC process - Will likely need home oxygen. Desat study ordered. . Tobacco abuse 10/23/2013 11/12/2013 Overview: Active smoker of 75 pack years. Benefits of smoking cessation discussed and patient states she is actively trying to quit (down to less than a pack per day from 1.5 pack per day). Continued to reinforce need to stop smoking. Is being discharged on home oxygen. Plan -Continue to encourage smoking cessation. -Start nicotine patch . Acute postoperative pain 10/23/2013 Overview: Patient states adequate pain control with Vicodin, oxycodone, and Motrin added in an attempt to transition to all oral pain regimen. Plan -Patient will be discharged on Oxycodone and home dosing of Naprosyn -Monitor pain, reassess to keep at pain level 4 or below. . Atelectasis 10/23/2013 10/24/2013 Overview: S/P right VATS upper lobectomy 10/23/13. Wearing 2 L/min oxygen, 95% pulse ox. CXR shows bilateral atelectasis. PLAN: -Bronchopulmonary hygiene, cough, deep breathe, acapella use, frequent ambulation. . Rt VATS Wedge, then RULobectomy 10/20/2013 10/14/2015 Overview: Patient is an active smoker of 75 pack years, presented with a 1.4 cm spiculated, cavitary lesion in the right upper lung. PET scan showed increased uptake in the lesion with an SUV 5.5 and no evidence of hilar, mediastinal or extrathoracic disease. On 10/22/13, Dr. Calvert performed right VATS, right upper lobectomy, and lymphadenectomy (R2, R4, 7). Plan:: -Pain management -Out of bed, frequent ambulation -cough/deep breathe, acapella -regular diet -respiratory therapy- Desat study for home oxygen . Pain in joint, lower leg 05/01/2013 Tear of meniscus of left knee 02/16/2013 10/14/2015 Fatigue 12/01/2012 11/12/2013 Snoring 12/01/2012 11/12/2013 Hyperglycemia 05/28/2012 01/02/2017 Mastalgia 09/04/2011 11/12/2013 CHRONIC AIRWAY OBSTRUCTION NEC 10/14/2015 Unspecified asthma(493.90) 0 11/21/2016 Osteoporosis, unspecified History of lung cancer 10/14 Overview: squamous cell documented as of this encounter (statuses as of 07/31/2023) [facility]01-12-2023 NoteHNO ID: [id number] Author: Heladio Madsen MD Service: ? Author Type: Physician Type: Progress Notes Filed: 09/07/2022 2:05 PM Note Text: Patient presents with: Follow Up HPI: Patient presents today for office visit for follow up. Last OV with PULM 07/26/22. Scheduled for testing on 10/25/22. Occasionally smoking still. Socially. Did not start Chantix but has at home. Using BiPAP at night and now on 4 L NC. Taking daily Zithromax and oxycodone per palliative care. Next home visit is Saturday09/11/22. Sugars have been good. Scheduled to see Dr. Worthy with Cardiology on 09/12/22. Changed from Plavix to Eliquis. Intermittent chest pain on left side with dull pain up left side of neck into left side of head. Episodes happen fairly often and last about 1 minute. Shortness of breath is worse. Noted the left sided forehead pain on and off for a month an a half. Not the worst headache she has had. No focal neuro issues. Tremor is stable. Nothing changes it. No changes with combing her hair or chewing. Does have neck pain and soreness. Does not go into the jaw. Do not last long. Less than a minute. Neck pain has only been a few times Does get occasional epigastric pain. Dr. Worthy changed her to plavix. No actual left sided chest pain. Still with chronic shortness of breath. Has know left shoulder issues. Has had xrays. Has seen ortho for same. Still using bipap. See last ov: Since the last time she saw me has been in the hospital 4 times. After the third time was at [facility]. Made it 5 days. Back in the hospital again and then was in [facility] rehab. Has been out of [place] 2-3 weeks. All were for COPD. Was in the ER a few weeks ago due to hypoxia but bounded back again. Saw PULM on She has finally quit. She is using Bipap at night and oxygen at 3 L NC She takes daily zithromax and oxycodone, per palliative care. Sugars have been good. No chest pain. Ankles and feet have some swelling but not new. No redness or warmth. Has HHC, physical therapy, occupational therapy, vn and palliative. Has an appt with pulmonary next month. Is overdue for seeing cardiology. Sugars have been good. Her life has changed with her breathing issues. Emotionally is feeling well. Needs letter to to have mailbox placed at her home. Has noted some worsening tremor. No other neuro issues. Asked her to come in for eval. MEDICATIONS: Current Outpatient Medications Medication Sig apixaban (ELIQUIS) 5 mg tab(s) Take 5 mg by mouth once daily. oxyCODONE IR (ROXICODONE) 5 mg immediate release tablet Take 5 mg by mouth. Ibandronate (BONIVA) 150 mg tablet Take 1 tablet by mouth once every month. Take in the am with full glass of water on an empty stomach; do NOT eat or lie down for next 30 minutes. varenicline (CHANTIX) 1 mg tablet Take 1 tablet by mouth twice daily. insulin glargine (LANTUS SOLOSTAR U-100 INSULIN) 100 unit/mL (3 mL) Per sliding scale. lancets (ONE TOUCH DELICA) 33 gauge Test blood sugar(s) 1 daily. Dx: Type 2 DM - Controlled E11.9 Insulin: No ohwltmjprdn-isgabkcpi-ohhuzjai (TRELEGY ELLIPTA) 100-62.5-25 mcg inhalation powder Inhale 1 Puff as instructed once daily. azithromycin (ZITHROMAX Z-FANNIE) 250 mg tablet Take 1 tablet by mouth once daily. rOPINIRole (REQUIP) 2 mg tablet Take 1 tablet by mouth daily at bedtime. losartan (COZAAR) 50 mg tablet Take 1 tablet by mouth once daily. atorvastatin (LIPITOR) 80 mg tablet Take 1 tablet by mouth daily at bedtime. traZODone (DESYREL) 100 mg tablet Take 1 tablet by mouth daily at bedtime. sertraline (ZOLOFT) 50 mg tablet Take 1 tablet by mouth once daily. pramipexole (MIRAPEX) 1.5 mg tablet Take 1 tablet by mouth daily at bedtime. blood sugar diagnostic (4FRONT PARTNERSUCH VERIO TEST STRIPS) test strip Test blood sugar(s) 2-3 times daily. Dx: Type 2 DM - Uncontrolled E11.65 Insulin: No albuterol (PROVENTIL) 2.5 mg /3 mL (0.083 %) nebulizer solution Use 3 mL via nebulizer every 4 hours as needed for wheezing/shortness of breath. aspirin 81 mg cap Take by mouth. furosemide (LASIX) 20 mg tablet Take 2 tablets by mouth once daily. Lancets lancets Test blood sugar(s) bid times daily. Dx: Type 2 DM - Controlled E11.9 Insulin: Yes blood sugar diagnostic (BLOOD GLUCOSE TEST) test strip Test blood sugar(s) 2 times daily. Dx: Type 2 DM - Controlled E11.9 Insulin: No ipratropium-albuterol (DUONEB) 0.5 mg-3 mg(2.5 mg base)/3 mL nebu Inhale 3 mL as instructed every 4 hours as needed for wheezing/shortness of breath. PULSE OXIMETER [facility] Use to check oxygen saturation. calcium-cholecalciferol, D3, (OSCAL+D 250) 250-125 mg-unit per tablet Take 1 tablet by mouth twice daily. OXYGEN, HOME THERAPY, 2 L/min by Nasal Cannula route daily at bedtime. (Patient taking differently: 2.5 L/min by Nasal Cannula route once daily. PRN through the day and at night) COMPOUNDED PRESCRIPTION Bipap mask and tubing. (more content not included)...[facility]01-12-2023 History of Present illness Narrative* Heladio Madsen MD - 09/06/2022 10:55 AM EST Patient presents with: Follow Up HPI: Patient presents today for office visit for follow up. Last OV with PULM 07/26/22. Scheduled for testing on 10/25/22. Occasionally smoking still. Socially. Did not start Chantix but has at home. Using BiPAP at night and now on 4 L NC. Taking daily Zithromax and oxycodone per palliative care. Next home visit is Saturday09/11/22. Sugars have been good. Scheduled to see Dr. Worthy with Cardiology on 09/12/22. Changed from Plavix to Eliquis. Intermittent chest pain on left side with dull pain up left side of neck into left side of head. Episodes happen fairly often and last about 1 minute. Shortness of breath is worse. Noted the left sided forehead pain on and off for a month an a half. Not the worst headache she hashad. No focal neuro issues. Tremor is stable. Nothing changes it. No changes with combing her hair or chewing. Does have neck pain and soreness. Does not go into the jaw. Do not last long. Less than a minute. Neck pain has only been a few times Does get occasional epigastric pain. Dr. Worthy changed her to plavix. No actual left sided chest pain. Still with chronic shortness of breath. Has know left shoulder issues. Has had xrays. Has seen ortho for same. Still using bipap. See last ov: Since the last time she saw me has been in the hospital 4 times. After the third time was at [facility]. Made it 5 days. Back in the hospital again and then was in [facility] rehab. Has beenout of [facility] 2-3 weeks. All were for COPD. Was in the ER a few weeks ago due to hypoxia but bounded back again. Saw PEARL on She has finally quit. She is using Bipap at night and oxygen at 3 L NC She takes daily zithromax and oxycodone, per palliative care. Sugars have been good. No chest pain. Ankles and feet have some swelling but not new. No redness or warmth. Has HHC, physical therapy, occupational therapy, vn and palliative. Has an appt with pulmonary next month. Is overdue for seeing cardiology. Sugars have been good. Her life has changed with her breathing issues. Emotionally is feeling well. Needs letter to to have mailbox placed at her home. Has noted some worsening tremor. No other neuro issues. Asked her to come in for eval. MEDICATIONS: Current Outpatient Medications Medication Sig apixaban (ELIQUIS) 5 mg tab(s) Take 5 mg by mouth once daily. oxyCODONE IR (ROXICODONE) 5 mg immediate release tablet Take 5 mg by mouth. Ibandronate (BONIVA) 150 mg tablet Take 1 tablet by mouth once every month. Take in the am with full glass of water on an empty stomach; do NOT eat or lie down for next 30 minutes. varenicline (CHANTIX) 1 mg tablet Take 1 tablet by mouth twice daily. insulin glargine (LANTUS SOLOSTAR U-100 INSULIN) 100 unit/mL (3 mL) Per sliding scale. lancets (ONE TOUCH DELICA) 33 gauge Test blood sugar(s) 1 daily. Dx: Type 2 DM - Controlled E11.9 Insulin: No lzwichfqvpy-qtubneuxi-fktzzvwm (TRELEGY ELLIPTA) 100-62.5-25 mcg inhalation powder Inhale 1 Puff asinstructed once daily. azithromycin (ZITHROMAX Z-FANNIE) 250 mg tablet Take 1 tablet by mouth once daily. rOPINIRole (REQUIP) 2 mg tablet Take 1 tablet by mouth daily at bedtime. losartan (COZAAR) 50 mg tablet Take 1 tablet by mouth once daily. atorvastatin (LIPITOR) 80 mg tablet Take 1 tablet by mouth daily at bedtime. traZODone (DESYREL) 100 mg tablet Take 1 tablet by mouth daily at bedtime. sertraline (ZOLOFT) 50 mg tablet Take 1 tablet by mouth once daily. pramipexole (MIRAPEX) 1.5 mg tablet Take 1 tablet by mouth daily at bedtime. blood sugar diagnostic (ONETOUCH VERIO TEST STRIPS) test strip Test blood sugar(s) 2-3 times daily.Dx: Type 2 DM - Uncontrolled E11.65 Insulin: No albuterol (PROVENTIL) 2.5 mg /3 mL (0.083 %) nebulizer solution Use 3 mL via nebulizer every 4 hours as needed for wheezing/shortness of breath. aspirin 81 mg cap Take by mouth. furosemide (LASIX) 20 mg tablet Take 2 tablets by mouth once daily. Lancets lancets Test blood sugar(s) bid times daily. Dx: Type 2 DM - Controlled E11.9 Insulin: Yes blood sugar diagnostic (BLOOD GLUCOSE TEST) test strip Test blood sugar(s) 2 times daily. Dx: Type 2 DM - Controlled E11.9 Insulin: No ipratropium-albuterol (DUONEB) 0.5 mg-3 mg(2.5 mg base)/3 mL nebu Inhale 3 mL as instructed every 4hours as needed for wheezing/shortness of breath. PULSE OXIMETER [facility] Use to check oxygen saturation. calcium-cholecalciferol, D3, (OSCAL+D 250) 250-125 mg-unit per tablet Take 1 tablet by mouth twice daily. OXYGEN, HOME THERAPY, 2 L/min by Nasal Cannula route daily at bedtime. (Patient taking differently:2.5 L/min by Nasal Cannula route once daily. PRN through the day and at night) COMPOUNDED PRESCRIPTION Bipap mask and tubing. COMPOUNDED PRESCRIPTION Adjust bilevel PAP to setting of 16/10 cmH2O with heated humidification COMPOUNDED PRESCRIPTION Initiate BiPAP @ 14/8 cm of water with humidification. Mask (per patient preference) optional chin strap (if indicated) , filters, tubing, humidifier and lifetime supplies. Dx. SHANA 327.23 Current Facility-Administered Medications Medication Dose Route Frequency perflutren lipid microspheres 1.3 mL in NaCl (PF) 0.9% 10 mL injection (DEFINITY) INTRAVENOUS DIRECTED PRN sodium chloride 0.9 % (flush) 10 mL (BD POSIFLUSH) 10 mL INTRAVENOUS DIRECTED PRN ALLERGIES: ALLERGIES Allergen Reactions Neurontin [Gabapent* Mental Status Change Slurred speech, It was like I was drunk. No seizures. Avelox [Moxifloxaci* Rash Wellbutrin [Bupropi* Hives, Itching Bupropion Hives PAST MEDICAL HISTORY Diagnosis Date Abnormal finding on Pap smear, ASCUS 12/2010 CAD (coronary artery disease) had 65 % blockage in RCA but normal ischemia. Cancer of lung (HCC) squamous cell Chronic airway obstruction, not elsewhere classified Compression fracture of body of thoracic vertebra (HCC) 04/08/2021 Depression Diabetes (HCC) Dislocation of left shoulder joint 09/2021 Essential hypertension 05/13/2019 Generalized osteoarthrosis, unspecified site GERD (gastroesophageal reflux disease) Irritable bowel syndrome Irritable bowel Leukocytosis 12/15/2020 Myalgia and myositis, unspecified Fibromyalgia (myalgia and myositis) Obstructive sleep apnea wears BiPap Osteoporosis, unspecified 2 dorsal spine compression fractures 03/2021. Other extrapyramidal disease and abnormal movement disorder Pure hypercholesterolemia Restless leg Rt VATS Wedge, then RULobectomy 10/20/2013 Patient is an active smoker of 75 pack years, presented with a 1.4 cm spiculated, cavitary lesion in the right upper lung. PET scan showed increased uptake in the lesion with an SUV 5.5 and no evidence of hilar, mediastinal or extrathoracic disease. On 10/22/13, Dr. Calvert performed right VATS, right upper lobectomy, and lymphadenectomy (R2, R4, 7). Plan:: -Pain management -Out of bed, frequent ambulation -cough/deep breathe, acapella -regular diet - respiratory therapy- Desat study for home oxygen . Tobacco abuse 10/23/2013 Unspecified asthma(493.90) adult only PAST SURGICAL HISTORY Procedure Laterality Date ARTHRS KNE SURG W/MENISCECTOMY MED/LAT W/SHVG Right 02/11/2015 Right knee arthroscopic medial meniscectomu with medial chondroplasty DELIVERY ONLY , low transverse COLONOSCOPY 12/18/2021 COLONOSCOPY FLX DX W/COLLJ SPEC WHEN PFRMD 2006 Colonoscopy, normal COLONOSCOPY FLX DX W/COLLJ SPEC WHEN PFRMD 10/18/2015 COLONOSCOPY FLX DX W/COLLJ SPEC WHEN PFRMD 07/13/2019 Colonoscopy COLPOPEXY VAGINAL EXTRAPERITONEAL APPROACH EGD TRANSORAL BIOPSY SINGLE/MULTIPLE 10/18/2015 EGD W/O BRSH SPEC VARICIES INJ 12/18/2021 ESOPHAGOGASTRODUODENOSCOPY TRANSORAL DIAGNOSTIC EGD HEMORRHOID;BAND LIGAT, SNGL/MUL 07/2021 PAST SURGICAL HISTORY OF 03/20/2013 left knee arthroscopy with meniscus repair PAST SURGICAL HISTORY OF 2013 right upper lobectomy- cancer PAST SURGICAL HISTORY OF 01/24/2015 nerve block intercostal with c-arm REPAIR RECTOCELE SEPARATE PROCEDURE THORACOSCOPY SURG LOBECTOMY Right 10/23/2013 Elkin Calvert MD. RUL TOTAL ABDOMINAL HYSTERECT W/WO RMVL TUBE OVARY Hysterectomy, CRISTY with rectocele FAMILY HISTORY Problem Relation Age of Onset Diabetes Father Heart disease Father Heart Father Colon Polyps Father Breast Cancer Sister Diabetes Sister Cancer Brother Prostate and throat cancer Heart disease Brother Stroke Brother Hypertension Brother Heart Brother Diabetes Brother No Ocular Disease No Family History Social History Tobacco Use Smoking status: Former Packs/day: 1.00 Years: 52.00 Pack years: 52.00 Types: Cigarettes Start date: 1964 Quit date: 04/24/2021 Years since quittin.3 Smokeless tobacco: Never Tobacco comments: wearing patch Vaping Use Vaping Use: Former Substances: Nicotine, Flavoring Substance Use Topics Alcohol use: Yes Comment: once a year Drug use: No Reviewed current medications, allergies, past medical history, surgical history, family history andsocial history today. REVIEW OF SYSTEMS All other reviewed and negative other than HPI. HEALTH MAINTENANCE: Reviewed health maintenance issues today and recommended the following in detail. Covid booster INFLUENZA(1) due on 04/26/2022 VITALS: BP 150/70 Pulse 72 Ht 160 cm (5' 3 ) Wt 94.3 kg (208 lb) SpO2 97% BMI 36.85 kg/m Last 4 Encounter Wt Readings: Date: Wt: 03/05/2022 88.1 kg (194 lb 3.2 oz) 02/13/2022 90.4 kg (199 lb 4.7 oz) 01/28/2022 86.6 kg (191 lb) 12/27/2021 86.6 kg (191 lb) PHYSICAL EXAMINATION: General appearance: Well appearing, alert, in no acute distress, well-hydrated, well nourished. Skin: Skin color, texture, turgor normal, no suspicious rashes or lesions Head: Normocephalic, no masses, lesions, tenderness or abnormalities, normal temporal artery palpation Eyes: Anicteric sclera. Pupils are equally round and reactive to light. Extraocular movements are intact. Neck: Supple, no adenopathy; thyroid symmetric, normal size, no bruits Lungs: Lungs clear to auscultation. No wheezing, rhonchi, rales Heart: RRR without murmur, gallop, or rubs. No ectopy Abdomen: Normal abdominal exam, Abdomen soft, non-tender. Bowel sounds normal. No masses, organomegaly Extremities: No deformities, edema, skin discoloration, clubbing or cyanosis. Good capillary refill. Musculoskeletal: shoulder nontender Peripheral pulses: Normal Neuro: Gait normal. Reflexes normal and symmetric. Sensation grossly intact.no new motor deficits. Normal CN's. In [facility]. ASSESSMENT/PLAN: 1. Chronic left shoulder pain - ICD9: 719.41, 338.29, ICD10: M25.512, G89.29 (primary diagnosis) - back to pain managmeent. - CONSULT TO PAIN MGT 2. Stage 3 severe COPD by GOLD classification (HCC) - ICD9: 496, ICD10: J44.9 - AZITHROMYCIN 250 MG TABLET - BASIC METABOLIC PNL 3. Osteoporosis, unspecified osteoporosis type, unspecified pathological fracture presence - ICD9: 733.00, - CALCIUM CARBONATE 250 MG-VITAMIN D3 3.125 MCG (125 UNIT) TABLET 4. Other emphysema (HCC) - ICD9: 492.8, ICD10: J43.8 - per pulmonary 5. Centrilobular emphysema (HCC) - ICD9: 492.8, ICD10: J43.2 6. Controlled type 2 diabetes mellitus without complication, without long-term current use of insulin (HCC) - ICD9: 250.00, ICD10: E11.9 Controlled. - Continue current medications 7. Chronic respiratory failure, unspecified whether with hypoxia or hypercapnia (HCC) - ICD9: 518.83, ICD10: J96.10 - XR CHEST 2V FRONTAL/LAT 8. Other pulmonary embolism without acute cor pulmonale, unspecified chronicity (HCC) - ICD9: 415.19, ICD10: I26.99 - as above 9. Restless leg syndrome - ICD9: 333.94, ICD10: G25.81 - stable. 10. Essential hypertension - ICD9: 401.9, ICD10: I10 - suboptimal control - recheck next visit. - Goal of BP <130/80 11. SHANA (obstructive sleep apnea) - ICD9: 327.23, ICD10: G47.33 - benefiting from bipap 12. Malignant neoplasm of hilus of lung, unspecified laterality (HCC) - ICD9: 162.2, ICD10: C34.00 - given new onset head pain and tremor and hx. Do labs and mri. - MRI BRAIN WO IVCON 13. History of pulmonary embolus (PE) - ICD9: V12.55, ICD10: Z86.711 - continue meds. 14. Anemia, unspecified type - ICD9: 285.9, ICD10: D64.9 - CBC + DIFF - IRON + TIBC - VITAMIN B12 BLOOD - FOLATE SERUM 15. Headache, unspecified headache type - ICD9: 784.0, ICD10: R51.9 - SED RATE WESTERGREN - MRI BRAIN WO IVCON 16. Neck pain - ICD9: 723.1, ICD10: M54.2 - XR CERV OTHER 4V AP/LAT/OBL 17. Coronary artery disease involving [place] coronary artery of [place] heart without angina pectoris - ICD9: 414.01, ICD10: I25.10 - ECG COMPLETE 18. Need for vaccination - ICD9: V05.9, ICD10: Z23 - [employer] COVID-19 BIVALENT BOOSTER VACCINE, AGE 12+ YR 19. Tremor - ICD9: 781.0, ICD10: R25.1 - as above - MRI BRAIN WO IVCON Heladio Madsen documented in [facility] NotePatient Outreach ([facility]) TAMIKO DIAMOND ([id number]) 1950 F CHT Date Time Provider Department 08/30/22 ARGENIS JEWELL During your visit today, we recorded the following information about you: Argenis Jewell RN 08/30/2022 9:47 AM Signed [facility]LEPHONIC [facility]REACH Provider Action/FYI: Contact made with patient: No - Left message Hello my name is Argenis Jewell RN your Flanging Roll Operator from the [facility] I am calling today for your monthly check in. I am sorry I missed your call. I will reach out to you again next month. (if the third call I will reach out to you again next week) Enter next patient outreach date for the following using the Track Pt Outreach. End outreach. Allergies As of Date: 08/30/2022 Noted Allergy Reaction NEURONTIN (GABAPENTIN) 08/14/2005 1 - Mental Status Change Comments: Slurred speech, It was like I was drunk. No seizures. AVELOX (MOXIFLOXACIN HCL) 08/14/2005 2 - Rash WELLBUTRIN (BUPROPION HCL) 06/12/2005 4 - Hives 9 - Itching BUPROPION 04/07/2019 4 - Hives Date Reviewed: 07/26/2022 Reviewed by: Debo Oviedo PA-C - Fully Assessed Reason for Visit: Community Monitoring Outreach [Other] Cmt: CDM Prescriptions as of 08/30/2022 - Ibandronate (BONIVA) 150 mg tablet Take 1 tablet by mouth once every month. Take in the am with full glass of water on an empty stomach; do NOT eat or lie down for next 30 minutes. - varenicline (CHANTIX) 1 mg tablet Take 1 tablet by mouth twice daily. - insulin glargine (LANTUS SOLOSTAR U-100 INSULIN) 100 unit/mL (3 mL) Per sliding scale. - lancets (ONE TOUCH DELICA) 33 gauge Test blood sugar(s) 1 daily. Dx: Type 2 DM - Controlled E11.9 Insulin: No - nicotine, polacrilex, 2 mg lzmn 1 lozenge every 1-2 hours as needed for smoking. Do not exceed 9 lozenges in 24 hours. - atjaoxpbhkn-rmpultisv-utsxcxzj (TRELEGY ELLIPTA) 100-62.5-25 mcg inhalation powder Inhale 1 Puff as instructed once daily. - azithromycin (ZITHROMAX Z-FANNIE) 250 mg tablet Take 1 tablet by mouth once daily. - rOPINIRole (REQUIP) 2 mg tablet Take 1 tablet by mouth daily at bedtime. - losartan (COZAAR) 50 mg tablet Take 1 tablet by mouth once daily. - atorvastatin (LIPITOR) 80 mg tablet Take 1 tablet by mouth daily at bedtime. - traZODone (DESYREL) 100 mg tablet Take 1 tablet by mouth daily at bedtime. - clopidogrel (PLAVIX) 75 mg tablet Take 1 tablet by mouth once daily. - sertraline (ZOLOFT) 50 mg tablet Take 1 tablet by mouth once daily. - sertraline (ZOLOFT) 50 mg tablet Take 1 tablet by mouth once daily. - pramipexole (MIRAPEX) 1.5 mg tablet Take 1 tablet by mouth daily at bedtime. - blood sugar diagnostic (ONETOUCH VERIO TEST STRIPS) test strip Test blood sugar(s) 2-3 times daily. Dx: Type 2 DM - Uncontrolled E11.65 Insulin: No - albuterol (PROVENTIL) 2.5 mg /3 mL (0.083 %) nebulizer solution Use 3 mL via nebulizer every 4 hours as needed for wheezing/shortness of breath. - aspirin 81 mg cap Take by mouth. - furosemide (LASIX) 20 mg tablet Take 2 tablets by mouth once daily. - Lancets lancets Test blood sugar(s) bid times daily. Dx: Type 2 DM - Controlled E11.9 Insulin: Yes - blood sugar diagnostic (BLOOD GLUCOSE TEST) test strip Test blood sugar(s) 2 times daily. Dx: Type 2 DM - Controlled E11.9 Insulin: No - ipratropium-albuterol (DUONEB) 0.5 mg-3 mg(2.5 mg base)/3 mL nebu Inhale 3 mL as instructed every 4 hours as needed for wheezing/shortness of breath. - PULSE OXIMETER [facility] Use to check oxygen saturation. - calcium-cholecalciferol, D3, (OSCAL+D 250) 250-125 mg-unit per tablet Take 1 tablet by mouth twice daily. - OXYGEN, HOME THERAPY, 2 L/min by Nasal Cannula route daily at bedtime. - COMPOUNDED PRESCRIPTION Bipap mask and tubing. - COMPOUNDED PRESCRIPTION Adjust bilevel PAP to setting of 16/10 cmH2O with heated humidification - COMPOUNDED PRESCRIPTION Initiate BiPAP @ 14/8 cm of water with humidification. Mask (per patient preference) optional chin strap (if indicated) , filters, tubing, humidifier and lifetime supplies. Dx. SHANA 327.23 Facility-Administered Medications as of 08/30/2022 - perflutren lipid microspheres 1.3 mL in NaCl (PF) 0.9% 10 mL injection (DEFINITY) - sodium chloride 0.9 % (flush) 10 mL (BD POSIFLUSH) Meds Comments as of 03/27/2021: 03/27/21 The medications are managed by this patient by: PATIENT Kalie Ngo [facility] Problem List As Of Date 08/30/2022 Noted Resolved Pure hypercholesterolemia [E78.00] CHRONIC AIRWAY OBSTRUCTION NEC [J44.9] 10/14/2015 Unspecified asthma(493.90) [J45.909] 11/21/2016 Osteoporosis, unspecified [M81.0] 03/21/2021 GENERAL OSTEOARTHROSIS [M15.9] EXTRAPYRAMIDAL DIS NEC [G25.89] Tobacco use disorder [F17.200] 02/28/2006 Restless leg syndrome [G25.81] 03/12/2011 Mastalgia [N64.4] 09/04/2011/ (more content not included)...[facility]01-05-2023 NoteHNO ID: [id number] Author: Argenis Jewell RN Service: ? Author Type: Registered Nurse Type: Progress Notes Filed: 08/30/2022 9:47 AM Note Text: [facility] Provider Action/FYI: Contact made with patient: No - Left message Yumiko my name is Argenis Jewell RN your Flanging Roll Operator from the [facility] I am calling today for your monthly check in. I am sorry I missed your call. I will reach out to you again next month. (if the third call I will reach out to you again next week) Enter next patient outreach date for the following business day using the Track Pt Outreach. End outreach.[facility] History of Present illness Narrative* Argenis Jewell RN - 08/30/2022 9:42 AM EST [facility] Provider Action/FYI: Contact made with patient: No - Left message Yumiko my name is Argenis Jewell RN your Flanging Roll Operator from the [facility] I am calling today for your monthly check in. I am sorry I missed your call. I will reach out to you again next month. (if the third call I will reach out to you again next week) Enter next patient outreach date for the following business day using the Track Pt Outreach. End outreach. documented in this encounterOhio[facility]12-08-2022 Miscellaneous Notes* Telephone Encounter - Argenis Jewell RN - 08/02/2022 11:26 AM EST PRIMARY CARE COORDINATION QUICK NOTE Provider Action/FYI Patient phones requesting refills as follows: Requested Prescriptions Pending Prescriptions Disp Refills Ibandronate (BONIVA) 150 mg tablet 3 tablet 3 Sig: Take 1 tablet by mouth once every month. Take in the am with full glass of water on an empty stomach; do NOT eat or lie down for next 30 minutes. Please review and advise. Argenis Jewell RN Patient identified by name and date . documented in this encounterOhio[facility]12-08-2022 History of Present illness Narrative* Argenis Jewell RN - 08/02/2022 11:19 AM EST [facility]LE[facility]RE[facility] Provider Action/FYI: Patient reports she is doing good, was discharged from [facility], was told she was doing really good . Patient states she is going to switch to [facility] as they will delivery her medications for free. Pharmacy updated in chart, patient aware she will need to call [facility] to provide her information. Patient had no questions, concerns, needs at this time. Contact made with patient: Yes Patient identified by name and . Discussed care with patient It s nice talking to you again. As a reminder, this is our bi-weekly check-in where I will be asking you questions about your health. This will only take a few minutes of your time. Is this a good time? Yes Symptoms What Chronic Disease(s) does the patient have: COPD Do you check your blood pressures at home? No Do you have new or worse shortness of breath with activity? No Do you have new or worsening cough? No Do you have new or worsening wheezing? No Do you need to use your rescue (Albuterol) inhaler or nebulizer more often than normal? No Are you having any other symptoms that your PCP needs to know about? No Symptom Escalation The patient required an escalation for symptom(s)? No Medications Do you have any questions about taking your medication or which medications you should be on? No Do you need any medication refills at this time, including any of the medications you might take only when needed? Yes Social We would like to make sure you have what you need so that your basic needs are met- including your personal safety, food, housing and medications? Would you like to speak with a social work restaurant team member to help give you support for any of these needs? No It can be normal to feel anxious or down during a time like this. Would you like to talk to a mental health professional about how you have been feeling? No Closing Thank you for taking the time to talk with me today. We want to work with you to ensure that we arekeeping your medical condition(s) well-controlled and to keep you healthy and out of the doctor's office or hospital. It s also not too late for me to sign you up for automated weekly questionnaires through [employer]. This is an easy way for us to stay connected each week. Are you interested? No, I understand. We can always sign you up in the future if you change your mind. Just as a reminder, will continue to call you every other week to check in on your health. Our calls should take 10-15 minutes or less. Remember, if you have concerns in between our calls, please call your PCP's office right away. Thank you. Enter next patient outreach date for two weeks on the same day of the week as today in the Track PtOutreach and End outreach. documented in this encounterOhio[facility]22 History of Present illness Narrative* Argenis Jewell RN - 08/01/2022 12:38 PM EST INSIGHT CD TELEPHONIC OUTREACH Provider Action/FYI: Contact made with patient: No - Left message Hello my name is Argenis Jewell RN your Flanging Roll Operator from the [facility] I am calling today for your bi-weekly check in. I am sorry I missed your call. I will reach out to you again tomorrow. (if the third call I will reach out to you again next week) Enter next patient outreach date for the following using the Track Pt Outreach. End outreach. documented in this encounterOhio[facility]12-01-2022 History of Present illness Narrative* Debo Oviedo PA-C - 07/26/2022 1:27 PM EST VIRTUAL VISIT PROGRESS NOTE This is a virtual visit using [employer] video visit. It required patient-provider interaction for themedical decision making as documented below. Tamiko Diamond is a 71 year old female seen for COPD. PMH significant for lung cancer s/p resection 10/22/2013, severe COPD, CAD, DM2, HTN, GERD, DVT/PE,and SHANA. No ED visits or hospitalization since last visit 06/18/2022. Daily cough, but not very much . Occasionally will expel white sputum. No hemoptysis. No wheezing. No dyspnea at rest. Exertional dyspnea is unchanged. Pulse ox typically above 96%. Wearing 3L supplemental oxygen continuously. Wearing Trilogy at night. DME: [facility] Has not been smoking since on Chantix. Occasionally she has a friend who stops in and then she smokes 1 cigarette. That keeps me from going and buying a pack . Having some dreams, but tolerable. No GI upset. Tolerating daily Azithromycin. HISTORY REVIEWED (electronic chart updated): PAST MEDICAL HISTORY Diagnosis Date Abnormal finding on Pap smear, ASCUS 12/2010 CAD (coronary artery disease) had 65 % blockage in RCA but normal ischemia. Cancer of lung (HCC) squamous cell Chronic airway obstruction, not elsewhere classified Compression fracture of body of thoracic vertebra (HCC) 04/08/2021 Depression Diabetes (HCC) Dislocation of left shoulder joint 09/2021 Essential hypertension 05/13/2019 Generalized osteoarthrosis, unspecified site GERD (gastroesophageal reflux disease) Irritable bowel syndrome Irritable bowel Leukocytosis 12/15/2020 Myalgia and myositis, unspecified Fibromyalgia (myalgia and myositis) Obstructive sleep apnea wears BiPap Osteoporosis, unspecified 2 dorsal spine compression fractures 03/2021. Other extrapyramidal disease and abnormal movement disorder Pure hypercholesterolemia Restless leg Rt VATS Wedge, then RULobectomy 10/20/2013 Patient is an active smoker of 75 pack years, presented with a 1.4 cm spiculated, cavitary lesion in the right upper lung. PET scan showed increased uptake in the lesion with an SUV 5.5 and no evidence of hilar, mediastinal or extrathoracic disease. On 10/22/13, Dr. Calvert performed right VATS, right upper lobectomy, and lymphadenectomy (R2, R4, 7). Plan:: -Pain management -Out of bed, frequent ambulation -cough/deep breathe, acapella -regular diet - respiratory therapy- Desat study for home oxygen . Tobacco abuse 10/23/2013 Unspecified asthma(493.90) adult only PAST SURGICAL HISTORY Procedure Laterality Date ARTHRS KNE SURG W/MENISCECTOMY MED/LAT W/SHVG Right 02/11/2015 Right knee arthroscopic medial meniscectomu with medial chondroplasty DELIVERY ONLY , low transverse COLONOSCOPY 12/18/2021 COLONOSCOPY FLX DX W/COLLJ SPEC WHEN PFRMD 2005 Colonoscopy, normal COLONOSCOPY FLX DX W/COLLJ SPEC WHEN PFRMD 10/18/2015 COLONOSCOPY FLX DX W/COLLJ SPEC WHEN PFRMD 07/13/2019 Colonoscopy COLPOPEXY VAGINAL EXTRAPERITONEAL APPROACH EGD TRANSORAL BIOPSY SINGLE/MULTIPLE 10/18/2015 EGD W/O BRSH SPEC VARICIES INJ 12/18/2021 ESOPHAGOGASTRODUODENOSCOPY TRANSORAL DIAGNOSTIC EGD HEMORRHOID;BAND LIGAT, SNGL/MUL 07/2021 PAST SURGICAL HISTORY OF 03/20/2013 left knee arthroscopy with meniscus repair PAST SURGICAL HISTORY OF 2013 right upper lobectomy- cancer PAST SURGICAL HISTORY OF 01/24/2015 nerve block intercostal with c-arm REPAIR RECTOCELE SEPARATE PROCEDURE THORACOSCOPY SURG LOBECTOMY Right 10/23/2013 Elkin Calvert MD. RUL TOTAL ABDOMINAL HYSTERECT W/WO RMVL TUBE OVARY Hysterectomy, CRISTY with rectocele FAMILY HISTORY Problem Relation Age of Onset Diabetes Father Heart disease Father Heart Father Colon Polyps Father Breast Cancer Sister Diabetes Sister Cancer Brother Prostate and throat cancer Heart disease Brother Stroke Brother Hypertension Brother Heart Brother Diabetes Brother No Ocular Disease No Family History Social History Tobacco Use Smoking status: Former Packs/day: 1.00 Years: 52.00 Pack years: 52.00 Types: Cigarettes Start date: 1962 Quit date: 04/24/2021 Years since quittin.2 Smokeless tobacco: Never Tobacco comments: wearing patch Vaping Use Vaping Use: Former Substances: Nicotine, Flavoring Substance Use Topics Alcohol use: Yes Comment: once a year Drug use: No Current Outpatient Medications Medication Sig insulin glargine (LANTUS SOLOSTAR U-100 INSULIN) 100 unit/mL (3 mL) Per sliding scale. lancets (ONE TOUCH DELICA) 33 gauge Test blood sugar(s) 1 daily. Dx: Type 2 DM - Controlled E11.9 Insulin: No nicotine, polacrilex, 2 mg lzmn 1 lozenge every 1-2 hours as needed for smoking. Do not exceed 9 lozenges in 24 hours. varenicline (CHANTIX) 0.5 mg (11)- 1 mg (42) tablet Take 0.5 mg by mouth once daily on Days 1 through 3, THEN 0.5 mg twice daily on Days 4 through 7, THEN 1 mg twice daily on Day 8 and thereafter dhgkrdeygud-tiihowqjf-mwpllzqf (TRELEGY ELLIPTA) 100-62.5-25 mcg inhalation powder Inhale 1 Puff asinstructed once daily. azithromycin (ZITHROMAX Z-FANNIE) 250 mg tablet Take 1 tablet by mouth once daily. rOPINIRole (REQUIP) 2 mg tablet Take 1 tablet by mouth daily at bedtime. losartan (COZAAR) 50 mg tablet Take 1 tablet by mouth once daily. atorvastatin (LIPITOR) 80 mg tablet Take 1 tablet by mouth daily at bedtime. traZODone (DESYREL) 100 mg tablet Take 1 tablet by mouth daily at bedtime. clopidogrel (PLAVIX) 75 mg tablet Take 1 tablet by mouth once daily. sertraline (ZOLOFT) 50 mg tablet Take 1 tablet by mouth once daily. sertraline (ZOLOFT) 50 mg tablet Take 1 tablet by mouth once daily. pramipexole (MIRAPEX) 1.5 mg tablet Take 1 tablet by mouth daily at bedtime. blood sugar diagnostic (ONETOUCH VERIO TEST STRIPS) test strip Test blood sugar(s) 2-3 times daily.Dx: Type 2 DM - Uncontrolled E11.65 Insulin: No albuterol (PROVENTIL) 2.5 mg /3 mL (0.083 %) nebulizer solution Use 3 mL via nebulizer every 4 hours as needed for wheezing/shortness of breath. aspirin 81 mg cap Take by mouth. furosemide (LASIX) 20 mg tablet Take 2 tablets by mouth once daily. Lancets lancets Test blood sugar(s) bid times daily. Dx: Type 2 DM - Controlled E11.9 Insulin: Yes blood sugar diagnostic (BLOOD GLUCOSE TEST) test strip Test blood sugar(s) 2 times daily. Dx: Type 2 DM - Controlled E11.9 Insulin: No Ibandronate (BONIVA) 150 mg tablet Take 1 tablet by mouth once every month. Take in the am with full glass of water on an empty stomach; do NOT eat or lie down for next 30 minutes. ipratropium-albuterol (DUONEB) 0.5 mg-3 mg(2.5 mg base)/3 mL nebu Inhale 3 mL as instructed every 4hours as needed for wheezing/shortness of breath. PULSE OXIMETER [facility] Use to check oxygen saturation. calcium-cholecalciferol, D3, (OSCAL+D 250) 250-125 mg-unit per tablet Take 1 tablet by mouth twice daily. OXYGEN, HOME THERAPY, 2 L/min by Nasal Cannula route daily at bedtime. (Patient taking differently:2.5 L/min by Nasal Cannula route once daily. PRN through the day and at night) COMPOUNDED PRESCRIPTION Bipap mask and tubing. COMPOUNDED PRESCRIPTION Adjust bilevel PAP to setting of 16/10 cmH2O with heated humidification COMPOUNDED PRESCRIPTION Initiate BiPAP @ 14/8 cm of water with humidification. Mask (per patient preference) optional chin strap (if indicated) , filters, tubing, humidifier and lifetime supplies. Dx. SHANA 327.23 Current Facility-Administered Medications Medication Dose Route Frequency perflutren lipid microspheres 1.3 mL in NaCl (PF) 0.9% 10 mL injection (DEFINITY) INTRAVENOUS DIRECTED PRN sodium chloride 0.9 % (flush) 10 mL (BD POSIFLUSH) 10 mL INTRAVENOUS DIRECTED PRN ALLERGIES Allergen Reactions Neurontin [Gabapent* Mental Status Change Slurred speech, It was like I was drunk. No seizures. Avelox [Moxifloxaci* Rash Wellbutrin [Bupropi* Hives, Itching Bupropion Hives REVIEW OF SYSTEMS: GENERAL: feeling well without fatigue, no recent change in weight HEENT: denies TURNER, change in hearing or vision, no other ENT complaints RESPIRATORY: See HPI. CARDIOVASCULAR: no chest pain, no palpitations NEURO: no numbness or paresthesias and no weakness of the extremities PHYSICAL EXAMINATION: VIDEO EXAM: (if completed, performed via video enabled technology) GENERAL: alert and appropriate, in no distress, well-hydrated, well nourished, and happy, smiling, interactive RESPIRATORY: breathing non-labored CHEST: equal chest rise with normal respiratory effort NEUROLOGIC: no obvious deficit ASSESSMENT/PLAN: 1. Stage 3 severe COPD by GOLD classification (HCC) - ICD9: 496, ICD10: J44.9 (primary diagnosis) Symptomatically doing well today. Continue Trelegy 1 inhalation daily. Rinse mouth after each use to help prevent oral thrush. Albuterol HFA inhaler, 2 inhalations 10-15 minutes prior to activities associated with shortness ofbreath, and as needed for rescue relief of shortness of breath or wheezing, up to 4 times daily. Continue Azithromycin daily to prevent frequent exacerbations. - SPIROMETRY BASELINE ONLY - OXIMETRY WITH AMBULATION 2. Chronic respiratory failure, unspecified whether with hypoxia or hypercapnia (HCC) - ICD9: 518.83, ICD10: J96.10 Continue Trilogy at night. Continue supplemental oxygen. - OXIMETRY WITH AMBULATION 3. Cigarette smoker - ICD9: 305.1, ICD10: F17.210 Congratulated patient on decreased smoking and effort. Continue Varenicline 1 tablet twice daily. Nicotine lozenges as needed. - VARENICLINE 1 MG TABLET I spent a total of 19 minutes on the date of the service which included preparing to see the patient, [id number] patient care, completing clinical documentation, performing a medically appropriate examination, and ordering medications, tests, or procedures Debo Oviedo PA-C documented in this encounterOhio[facility]11-30-2022 Miscellaneous Notes* Telephone Encounter - Marlon Sung LPN - 07/25/2022 2:03 PM EST TC to Marilyn, notified of provider response. She verbalized understanding. Marlon Sung LPN * Telephone Encounter - Heladio Madsen MD - 07/25/2022 1:53 PM EST ok * Telephone Encounter - Anayeli Everett LPN - 07/25/2022 1:32 PM EST Ana Paula RYAN from [facility] reports pt will be discharged from at next visit. Ana Paula states pt is ready for discharge. Reports pt's sats at 3L are 97%, BP 148/88, blood sugars are good, pt only used insulin twice in the last week. Breath sounds are diminished & Ana Paula discussed using spirometer more. Weight is stable & her goals have been met. Order for one time visit to discharge. Anayeli Everett LPN documented in this encounterOhio[facility]11-23-2022 Miscellaneous Notes* Telephone Encounter - Stephani Guadalupe LPN - 07/18/2022 10:12 AM EST Letter reprinted, sent to be mailed. * Telephone Encounter - Maria D Wiggins LPN - 07/18/2022 9:59 AM EST Pt called back and the post office does not have a fax and requesting the letter dated 07/06/22 be mailed to the [facility] Office. Requesting a signed copy of letter be mailed to: [employer] [facility] [address] [place] [address]. Maria D Wiggins LPN documented in this encounterOhiohealth [facility] Center11-17-2022 History of Present illness Narrative* Argenis Jewell RN - 07/12/2022 1:25 PM EST INSIGHT [facility] TELEPHONIC OUTREACH Provider Action/FYI: Please fax 07/06 pcp letter for patient to have mailbox moved to [employer] [facility] @[phone]. Patient states she called the pots office and this is what they advised. Thank you. Patient reports she is doing good, taking Oxycodone for breathing prescribed by palliative care, states medication works okay . Relayed message to patient in regards to scheduling with cardiology. See 07/06 telephone encounter. Patient had no other questions, concerns, needs at this time. Contact made with patient: Yes Patient identified by name and . Discussed care with patient It s nice talking to you again. As a reminder, this is our bi-weekly check-in where I will be asking you questions about your health. This will only take a few minutes of your time. Is this a good time? Yes Symptoms What Chronic Disease(s) does the patient have: COPD Do you check your blood pressures at home? No Do you have new or worse shortness of breath with activity? No Do you have new or worsening cough? No Do you have new or worsening wheezing? No Do you need to use your rescue (Albuterol) inhaler or nebulizer more often than normal? No Are you having any other symptoms that your PCP needs to know about? No Symptom Escalation The patient required an escalation for symptom(s)? No Medications Do you have any questions about taking your medication or which medications you should be on? No Do you need any medication refills at this time, including any of the medications you might take only when needed? No Social We would like to make sure you have what you need so that your basic needs are met- including your personal safety, food, housing and medications? Would you like to speak with a social work restaurant team member to help give you support for any of these needs? No It can be normal to feel anxious or down during a time like this. Would you like to talk to a mental health professional about how you have been feeling? No Closing Thank you for taking the time to talk with me today. We want to work with you to ensure that we arekeeping your medical condition(s) well-controlled and to keep you healthy and out of the doctor's office or hospital. It s also not too late for me to sign you up for automated weekly questionnaires through [employer]. This is an easy way for us to stay connected each week. Are you interested? No, I understand. We can always sign you up in the future if you change your mind. Just as a reminder, will continue to call you every other week to check in on your health. Our calls should take 10-15 minutes or less. Remember, if you have concerns in between our calls, please call your PCP's office right away. Thank you. Enter next patient outreach date for two weeks on the same day of the week as today in the Track PtOutreach and End outreach. documented in this encounterOhiohealth [facility]11-11-2022 History of Present illness Narrative* Argenis Jewell RN - 07/06/2022 10:36 AM EST PRIMARY CARE COORDINATION QUICK NOTE Provider Action/FYI Patient was seen via virtual visit by pcp today. Follow up in 1 week Patient identified by name and date . documented in this encounterOhiohealth [facility] Center11-11-2022 History of Present illness Narrative* Heladio Madsen MD - 07/06/2022 9:39 AM EST Patient presents with: Follow Up HPI:This Team Access Model visit is a phone encounter. It required patient- provider interaction forthe medical decision making as documented below. Patient was offered a virtual/telemedicine appointment in lieu of an office visit due to recommendations to reduce patient exposure to COVID-19. Patient is aware of limitations of performing the visit without a face to face visit in the office setting and agrees. Since the last time she saw me has been in the hospital 4 times. After the third time was at [facility]. Made it 5 days. Back in the hospital again and then was in [facility] rehab. Has beenout of [place] 2-3 weeks. All were for COPD. Was in the ER a few weeks ago due to hypoxia but bounded back again. Saw PULM on She has finally quit. She is using Bipap at night and oxygen at 3 L NC She takes daily zithromax and oxycodone, per palliative care. Sugars have been good. No chest pain. Ankles and feet have some swelling but not new. No redness or warmth. Has HHC, physical therapy, occupational therapy, vn and palliative. Has an appt with pulmonary next month. Is overdue for seeing cardiology. Sugars have been good. Her life has changed with her breathing issues. Emotionally is feeling well. Needs letter to to have mailbox placed at her home. Has noted some worsening tremor. No other neuro issues. Asked her to come in for eval. MEDICATIONS: Current Outpatient Medications Medication Sig nicotine, polacrilex, 2 mg lzmn 1 lozenge every 1-2 hours as needed for smoking. Do not exceed 9 lozenges in 24 hours. varenicline (CHANTIX) 0.5 mg (11)- 1 mg (42) tablet Take 0.5 mg by mouth once daily on Days 1 through 3, THEN 0.5 mg twice daily on Days 4 through 7, THEN 1 mg twice daily on Day 8 and thereafter qhfcjmrekts-hvfgluqwo-tcqrcoos (TRELEGY ELLIPTA) 100-62.5-25 mcg inhalation powder Inhale 1 Puff asinstructed once daily. azithromycin (ZITHROMAX Z-FANNIE) 250 mg tablet Take 1 tablet by mouth once daily. rOPINIRole (REQUIP) 2 mg tablet Take 1 tablet by mouth daily at bedtime. losartan (COZAAR) 50 mg tablet Take 1 tablet by mouth once daily. atorvastatin (LIPITOR) 80 mg tablet Take 1 tablet by mouth daily at bedtime. traZODone (DESYREL) 100 mg tablet Take 1 tablet by mouth daily at bedtime. clopidogrel (PLAVIX) 75 mg tablet Take 1 tablet by mouth once daily. pramipexole (MIRAPEX) 1.5 mg tablet Take 1 tablet by mouth daily at bedtime. sertraline (ZOLOFT) 50 mg tablet Take 1 tablet by mouth once daily. sertraline (ZOLOFT) 50 mg tablet Take 1 tablet by mouth once daily. pramipexole (MIRAPEX) 1.5 mg tablet Take 1 tablet by mouth daily at bedtime. blood sugar diagnostic (4FRONT PARTNERSUCH VERIO TEST STRIPS) test strip Test blood sugar(s) 2-3 times daily.Dx: Type 2 DM - Uncontrolled E11.65 Insulin: No albuterol (PROVENTIL) 2.5 mg /3 mL (0.083 %) nebulizer solution Use 3 mL via nebulizer every 4 hours as needed for wheezing/shortness of breath. guaiFENesin (MUCINEX) 600 mg 12 hr tablet Take 1 tablet by mouth every 12 hours. glipiZIDE (GLUCOTROL) 5 mg tablet Take 1 tablet by mouth daily before breakfast for 2 days. aspirin 81 mg cap Take by mouth. furosemide (LASIX) 20 mg tablet Take 2 tablets by mouth once daily. Lancets lancets Test blood sugar(s) bid times daily. Dx: Type 2 DM - Controlled E11.9 Insulin: Yes blood sugar diagnostic (BLOOD GLUCOSE TEST) test strip Test blood sugar(s) 2 times daily. Dx: Type 2 DM - Controlled E11.9 Insulin: No Ibandronate (BONIVA) 150 mg tablet Take 1 tablet by mouth once every month. Take in the am with full glass of water on an empty stomach; do NOT eat or lie down for next 30 minutes. ipratropium-albuterol (DUONEB) 0.5 mg-3 mg(2.5 mg base)/3 mL nebu Inhale 3 mL as instructed every 4hours as needed for wheezing/shortness of breath. PULSE OXIMETER [facility] Use to check oxygen saturation. calcium-cholecalciferol, D3, (OSCAL+D 250) 250-125 mg-unit per tablet Take 1 tablet by mouth twice daily. OXYGEN, HOME THERAPY, 2 L/min by Nasal Cannula route daily at bedtime. (Patient taking differently:2.5 L/min by Nasal Cannula route once daily. PRN through the day and at night) COMPOUNDED PRESCRIPTION Bipap mask and tubing. COMPOUNDED PRESCRIPTION Adjust bilevel PAP to setting of 16/10 cmH2O with heated humidification COMPOUNDED PRESCRIPTION Initiate BiPAP @ 14/8 cm of water with humidification. Mask (per patient preference) optional chin strap (if indicated) , filters, tubing, humidifier and lifetime supplies. Dx. SHANA 327.23 Current Facility-Administered Medications Medication Dose Route Frequency perflutren lipid microspheres 1.3 mL in NaCl (PF) 0.9% 10 mL injection (DEFINITY) INTRAVENOUS DIRECTED PRN sodium chloride 0.9 % (flush) 10 mL (BD POSIFLUSH) 10 mL INTRAVENOUS DIRECTED PRN ALLERGIES: ALLERGIES Allergen Reactions Neurontin [Gabapent* Mental Status Change Slurred speech, It was like I was drunk. No seizures. Avelox [Moxifloxaci* Rash Wellbutrin [Bupropi* Hives, Itching Bupropion Hives PAST MEDICAL HISTORY Diagnosis Date Abnormal finding on Pap smear, ASCUS 12/2010 CAD (coronary artery disease) had 65 % blockage in RCA but normal ischemia. Cancer of lung (HCC) squamous cell Chronic airway obstruction, not elsewhere classified Compression fracture of body of thoracic vertebra (HCC) 04/08/2021 Depression Diabetes (HCC) Dislocation of left shoulder joint 09/2021 Essential hypertension 05/13/2019 Generalized osteoarthrosis, unspecified site GERD (gastroesophageal reflux disease) Irritable bowel syndrome Irritable bowel Leukocytosis 12/15/2020 Myalgia and myositis, unspecified Fibromyalgia (myalgia and myositis) Obstructive sleep apnea wears BiPap Osteoporosis, unspecified 2 dorsal spine compression fractures 03/2021. Other extrapyramidal disease and abnormal movement disorder Pure hypercholesterolemia Restless leg Rt VATS Wedge, then RULobectomy 10/20/2013 Patient is an active smoker of 75 pack years, presented with a 1.4 cm spiculated, cavitary lesion in the right upper lung. PET scan showed increased uptake in the lesion with an SUV 5.5 and no evidence of hilar, mediastinal or extrathoracic disease. On 10/22/13, Dr. Calvert performed right VATS, right upper lobectomy, and lymphadenectomy (R2, R4, 7). Plan:: -Pain management -Out of bed, frequent ambulation -cough/deep breathe, acapella -regular diet - respiratory therapy- Desat study for home oxygen . Tobacco abuse 10/23/2013 Unspecified asthma(493.90) adult only PAST SURGICAL HISTORY Procedure Laterality Date ARTHRS KNE SURG W/MENISCECTOMY MED/LAT W/SHVG Right 02/11/2015 Right knee arthroscopic medial meniscectomu with medial chondroplasty DELIVERY ONLY , low transverse COLONOSCOPY 12/18/2021 COLONOSCOPY FLX DX W/COLLJ SPEC WHEN PFRMD 2006 Colonoscopy, normal COLONOSCOPY FLX DX W/COLLJ SPEC WHEN PFRMD 10/18/2015 COLONOSCOPY FLX DX W/COLLJ SPEC WHEN PFRMD 07/13/2019 Colonoscopy COLPOPEXY VAGINAL EXTRAPERITONEAL APPROACH EGD TRANSORAL BIOPSY SINGLE/MULTIPLE 10/18/2015 EGD W/O BRSH SPEC VARICIES INJ 12/18/2021 ESOPHAGOGASTRODUODENOSCOPY TRANSORAL DIAGNOSTIC EGD HEMORRHOID;BAND LIGAT, SNGL/MUL 07/2021 PAST SURGICAL HISTORY OF 03/20/2013 left knee arthroscopy with meniscus repair PAST SURGICAL HISTORY OF 2013 right upper lobectomy- cancer PAST SURGICAL HISTORY OF 01/24/2015 nerve block intercostal with c-arm REPAIR RECTOCELE SEPARATE PROCEDURE THORACOSCOPY SURG LOBECTOMY Right 10/23/2013 Elkin Calvert MD. RUL TOTAL ABDOMINAL HYSTERECT W/WO RMVL TUBE OVARY Hysterectomy, CRISTY with rectocele FAMILY HISTORY Problem Relation Age of Onset Diabetes Father Heart disease Father Heart Father Colon Polyps Father Breast Cancer Sister Diabetes Sister Cancer Brother Prostate and throat cancer Heart disease Brother Stroke Brother Hypertension Brother Heart Brother Diabetes Brother No Ocular Disease No Family History Social History Tobacco Use Smoking status: Former Packs/day: 1.00 Years: 52.00 Pack years: 52.00 Types: Cigarettes Start date: 1964 Quit date: 04/24/2021 Years since quittin.2 Smokeless tobacco: Never Tobacco comments: wearing patch Vaping Use Vaping Use: Former Substances: Nicotine, Flavoring Substance Use Topics Alcohol use: Yes Comment: once a year Drug use: No Reviewed current medications, allergies, past medical history, surgical history, family history andsocial history today. REVIEW OF SYSTEMS All other reviewed and negative other than HPI. HEALTH MAINTENANCE: Discussed covid 19 safety and recommendations if patient should become ill. Reviewed health maintenance issues today and recommended the following in detail. COVID-19 VACCINE(4 - Booster for Pfizer series) due on 12/20/2021 INFLUENZA(1) due on 04/26/2022 URINE ALBUMIN:CREATININE RATIO due on 05/05/2022 HBA1C due on 05/10/2022 VITALS: There were no vitals taken for this visit. Last 4 Encounter Wt Readings: Date: Wt: 03/05/2022 88.1 kg (194 lb 3.2 oz) 02/13/2022 90.4 kg (199 lb 4.7 oz) 01/28/2022 86.6 kg (191 lb) 12/27/2021 86.6 kg (191 lb) PHYSICAL EXAMINATION: Patient is alert and oriented during visit. Answers appropriately. ASSESSMENT/PLAN: 1. Chronic obstructive pulmonary disease, unspecified COPD type (HCC) - ICD9: 496, ICD10: J44.9 (primary diagnosis) - poor but stable. Continue to see pulmonary. Continue to see palliative. 2. Pure hypercholesterolemia - ICD9: 272.0, ICD10: E78.00 - check labs. 3. Coronary artery disease involving [place] coronary artery of [place] heart without angina pectoris- ICD9: 414.01, ICD10: I25.10 - get back into cardiology - CONSULT TO CARDIOLOGY 4. Essential hypertension - ICD9: 401.9, ICD10: I10 - good control - Continue current medication(s) - Goal of BP <130/80 5. SHANA (obstructive sleep apnea) - ICD9: 327.23, ICD10: G47.33 - using bipap 6. Malignant neoplasm of hilus of lung, unspecified laterality (HCC) - ICD9: 162.2, ICD10: C34.00 Stable, per pulmonary 7. Controlled type 2 diabetes mellitus without complication, without long-term current use of insulin (HCC) - ICD9: 250.00, ICD10: E11.9 Controlled. - Continue current medications - CBC + DIFF - COMP METABOLIC PANEL - LIPID PANEL BASIC - HGB A1C - ALBUMIN/CREAT RATIO RND UR 8. Osteoporosis, unspecified osteoporosis type, unspecified pathological fracture presence - ICD9: 733.00, ICD10: M81.0 -continue meds. 9. Obesity, Class I, BMI 30-34.9 - ICD9: 278.00, ICD10: E66.9 Heladio Madsen RTO in eight weeks and prn. I spent 18 minutes in the visit, with more than 50% of the total [id number] time of the visit in counseling / coordination of care. documented in this encounterOhio[facility]11-10-2022 History of Present illness Narrative* Argenis Jewell RN - 07/05/2022 10:17 AM EST [facility] TELEPHONIC OUTREACH Provider Action/FYI: Contact made with patient: No - Left message Hello my name is Argenis Jewell RN your Flanging Roll Operator from the [facility] I am calling today for your bi-weekly check in. I am sorry I missed your call. I will reach out to you again tomorrow. (if the third call I will reach out to you again next week) Enter next patient outreach date for the following day using the Track Pt Outreach. End outreach. documented in this encounterOhiohealth [facility]heastern [facility] Center11-09-2022 Miscellaneous Notes* Telephone Encounter - Marlon Sung LPN - 07/04/2022 11:32 AM EST TC to Maureen, left detailed message on secure identified voicemail. Maureen only to return call to office /c any questions/concerns. Marlon Sung LPN * Telephone Encounter - Heladio Madsen MD - 07/04/2022 10:37 AM EST ok * Telephone Encounter - Jeanna Reynoso RN - 07/04/2022 10:30 AM EST Maureen ALEXIS from [facility] calls and reports that insurance finally approved of her seeing patient. Maureen asking for a delay in care order. Please give Maureen a call back if ok to delay care. Jeanna Reynoso RN documented in this encounterOhiohealth Southeastern Medical Center11-04-2022 Miscellaneous Notes* Telephone Encounter - Marlon Sung LPN - 06/29/2022 1:45 PM EDT Kalie notified. She verbalized understanding. Marlon Sung LPN * Telephone Encounter - Heladio Madsen MD - 06/29/2022 1:19 PM EDT Ok to do * Telephone Encounter - Ching Dobson RN - 06/29/2022 12:00 PM EDT Kalie PT calling to report plan of care for patient and PT will visit patient 2 times a week for four weeks. PT will work with patient on lower extremity strengthening, functional mobility and endurance. PT asking for verbal order to add an SW eval and tx to assist with community resources and to assist patient to find a nurse aide for residential help. Please call Kalie back at [phone]. Ching Dobson RN documented in this encounterOhiohealth Southeastern Medical Center11-03-2022 Miscellaneous Notes* Telephone Encounter - Tammy Rojas LPN - 06/28/2022 11:22 AM EDT Referral has been faxed as requested. * Telephone Encounter - Heladio Madsen MD - 06/27/2022 2:53 PM EDT done * Telephone Encounter - Maria D Wiggins LPN - 06/27/2022 2:15 PM EDT Jasmine with Palliative Care called and states she is requesting the followin)Sandra saw pt today also. 2)Pt has been released home from [facility] with out any orders for nursing, PT, OT or home health aide. Jasmine trying to get orders in place for pt. Jasmine asked to have orders sent to [facility] HH DX COPD can walk about 20 ' then has to set down to catch her breath, needs strengthening. 3)FYI: Palliative Care has ordered Oxycodone 2.5 to take 1 tablet every 6 hours as needed to help with breathing. Please advise Palliative Care with an update on progress getting pt help. Maria D Wiggins LPN documented in this encounterOhiohealth Southeastern Medical Center10-28-2022 Miscellaneous Notes* Telephone Encounter - Nivia Heath APRN.CNP - 06/22/2022 11:20 AM EDT Noted. It looks like patient has an appt scheduled 07/06. Nivia Heath APRN.[facility] * Telephone Encounter - Sasha Avendaño RN - 06/18/2022 4:43 PM EDT Nanda Salazar- [facility] phoned to let pcp know patient was discharged from [facility] on 05-16-22 to home. documented in this encounterOhiohealth Southeastern Medical Center10-28-2022 History of Present illness Narrative* Argenis Jewell RN - 06/22/2022 10:11 AM EDT [facility]IGHT [facility] TELEPHONIC OUTREACH Provider Action/FYI: Patient reports she is doing okay, was in [facility] ED 06/10, SpO2 was 72%, states she was given IV meds,Spo2 came up to 98%, discharged to home, had pulmonary follow up 06/20 SpO2 has been in the 90's, she still feels fatigue, especially when she tries to get up and do anything. Encouraged patient to do tasks in small steps, states she is trying to do that but gets frustrated. Patient states she had her last cigarette this past Saturday evening, will be starting Chantix prescribed by pulmonary. Patient was also prescribed nicotine lozenges, states friend who picked up her script said they were not at pharmacy. Advised patient to reach out to [facility] to inquire. Also informed patient that pulmonary sent a my chart message to schedule 4 week follow up appointment. Patient states she will call today. Patient also states Palliative Care will be coming to her house next week with informational. Much support and listening provided to patient who voiced appreciation. Patient had no further questions, concerns, needs at this time. Contact made with patient: Yes Patient identified by name and . Discussed care with patient It s nice talking to you again. As a reminder, this is our bi-weekly check-in where I will be asking you questions about your health. This will only take a few minutes of your time. Is this a good time? Yes Symptoms What Chronic Disease(s) does the patient have: COPD Do you check your blood pressures at home? No Do you have new or worse shortness of breath with activity? No Do you have new or worsening cough? No Do you have new or worsening wheezing? No Do you need to use your rescue (Albuterol) inhaler or nebulizer more often than normal? No Are you having any other symptoms that your PCP needs to know about? No Symptom Escalation The patient required an escalation for symptom(s)? No Medications Do you have any questions about taking your medication or which medications you should be on? No Do you need any medication refills at this time, including any of the medications you might take only when needed? No Social We would like to make sure you have what you need so that your basic needs are met- including your personal safety, food, housing and medications? Would you like to speak with a social work restaurant team member to help give you support for any of these needs? No It can be normal to feel anxious or down during a time like this. Would you like to talk to a mental health professional about how you have been feeling? No Closing Thank you for taking the time to talk with me today. We want to work with you to ensure that we arekeeping your medical condition(s) well-controlled and to keep you healthy and out of the doctor's office or hospital. It s also not too late for me to sign you up for automated weekly questionnaires through [employer]. This is an easy way for us to stay connected each week. Are you interested? No, I understand. We can always sign you up in the future if you change your mind. Just as a reminder, will continue to call you every other week to check in on your health. Our calls should take 10-15 minutes or less. Remember, if you have concerns in between our calls, please call your PCP's office right away. Thank you. Enter next patient outreach date for two weeks on the same day of the week as today in the Track PtOutreach and End outreach. documented in this encounterOhiohealth [facility] Center10-24-2022 History of Present illness Narrative* Debo Oviedo PA-C - 06/18/2022 1:30 PM EDT VIRTUAL VISIT PROGRESS NOTE This is a virtual visit using [employer] video visit. It required patient-provider interaction for themedical decision making as documented below. Tamiko Diamond is a 71 year old female seen for COPD. HPI: Current daily smoker with PMH significant for lung cancer s/p resection 10/22/2013, severe COPD, CAD, DM2, HTN, GERD, DVT/PE, SHANA on BiPAP. Patient was evaluated in [place] ED 06/10/2022 secondary to pulse ox in the 70s. Given Duonebs and IV Solumedrol. D dimer normal for age. CXR with no acute abnormality. Patient was able to ambulate on her home 3L without desaturating (maintained 93-94% range) and was discharged home on Prednisone. Today, patient reports that she has been in hospital x 4 times and SNF/rehab x 2. Just got home a week ago. Daily cough. Clear/white sputum. No hemoptysis. No pleuritic chest pain. No fevers or chills. No wheezing. No dyspnea at rest. Exertional dyspnea with minimal effort. Lower extremity edema, left > right. No palpitations or dizziness. Currently wearing 3L continuously. Consistently wears BiPAP with sleep. Was on Trilogy, however, it quit working and she has a call into [facility] so she resumed her old BiPAP. States she is unable to carry the Ecylinders and would like to have an Inogen. DME: [facility]. Currently smoking maybe 6 cigarettes per day. As she decreases her cigarettes she increases vaping. I read that vaping is safer . Patient has a desire to quit. Is smoking outside the house. HISTORY REVIEWED (electronic chart updated): PAST MEDICAL HISTORY Diagnosis Date Abnormal finding on Pap smear, ASCUS 12/2010 CAD (coronary artery disease) had 65 % blockage in RCA but normal ischemia. Cancer of lung (HCC) squamous cell Chronic airway obstruction, not elsewhere classified Compression fracture of body of thoracic vertebra (HCC) 04/08/2021 Depression Diabetes (HCC) Dislocation of left shoulder joint 09/2021 Essential hypertension 05/13/2019 Generalized osteoarthrosis, unspecified site GERD (gastroesophageal reflux disease) Irritable bowel syndrome Irritable bowel Leukocytosis 12/15/2020 Myalgia and myositis, unspecified Fibromyalgia (myalgia and myositis) Obstructive sleep apnea wears BiPap Osteoporosis, unspecified 2 dorsal spine compression fractures 03/2021. Other extrapyramidal disease and abnormal movement disorder Pure hypercholesterolemia Restless leg Rt VATS Wedge, then RULobectomy 10/20/2013 Patient is an active smoker of 75 pack years, presented with a 1.4 cm spiculated, cavitary lesion in the right upper lung. PET scan showed increased uptake in the lesion with an SUV 5.5 and no evidence of hilar, mediastinal or extrathoracic disease. On 10/22/13, Dr. Calvert performed right VATS, right upper lobectomy, and lymphadenectomy (R2, R4, 7). Plan:: -Pain management -Out of bed, frequent ambulation -cough/deep breathe, acapella -regular diet - respiratory therapy- Desat study for home oxygen . Tobacco abuse 10/23/2013 Unspecified asthma(493.90) adult only PAST SURGICAL HISTORY Procedure Laterality Date ARTHRS KNE SURG W/MENISCECTOMY MED/LAT W/SHVG Right 02/11/2015 Right knee arthroscopic medial meniscectomu with medial chondroplasty DELIVERY ONLY , low transverse COLONOSCOPY 12/18/2021 COLONOSCOPY FLX DX W/COLLJ SPEC WHEN PFRMD 2006 Colonoscopy, normal COLONOSCOPY FLX DX W/COLLJ SPEC WHEN PFRMD 10/18/2015 COLONOSCOPY FLX DX W/COLLJ SPEC WHEN PFRMD 07/13/2019 Colonoscopy COLPOPEXY VAGINAL EXTRAPERITONEAL APPROACH EGD TRANSORAL BIOPSY SINGLE/MULTIPLE 10/18/2015 EGD W/O BRSH SPEC VARICIES INJ 12/18/2021 ESOPHAGOGASTRODUODENOSCOPY TRANSORAL DIAGNOSTIC EGD HEMORRHOID;BAND LIGAT, SNGL/MUL 07/2021 PAST SURGICAL HISTORY OF 03/20/2013 left knee arthroscopy with meniscus repair PAST SURGICAL HISTORY OF 2013 right upper lobectomy- cancer PAST SURGICAL HISTORY OF 01/24/2015 nerve block intercostal with c-arm REPAIR RECTOCELE SEPARATE PROCEDURE THORACOSCOPY SURG LOBECTOMY Right 10/23/2013 Elkin Calvert MD. RUL TOTAL ABDOMINAL HYSTERECT W/WO RMVL TUBE OVARY Hysterectomy, CRISTY with rectocele FAMILY HISTORY Problem Relation Age of Onset Diabetes Father Heart disease Father Heart Father Colon Polyps Father Breast Cancer Sister Diabetes Sister Cancer Brother Prostate and throat cancer Heart disease Brother Stroke Brother Hypertension Brother Heart Brother Diabetes Brother No Ocular Disease No Family History Social History Tobacco Use Smoking status: Former Packs/day: 1.00 Years: 52.00 Pack years: 52.00 Types: Cigarettes Start date: 1964 Quit date: 04/24/2021 Years since quittin.1 Smokeless tobacco: Never Tobacco comments: wearing patch Vaping Use Vaping Use: Former Substances: Nicotine, Flavoring Substance Use Topics Alcohol use: Yes Comment: once a year Drug use: No Current Outpatient Medications Medication Sig azithromycin (ZITHROMAX) 250 mg tablet Take 2 tablets on first day then one daily for 4 more days predniSONE (DELTASONE) 10 mg tablet Take 4 daily for three days, then 3 daily for three days, then 2 daily for three days, then one daily for three days. rOPINIRole (REQUIP) 2 mg tablet Take 1 tablet by mouth daily at bedtime. losartan (COZAAR) 50 mg tablet Take 1 tablet by mouth once daily. atorvastatin (LIPITOR) 80 mg tablet Take 1 tablet by mouth daily at bedtime. traZODone (DESYREL) 100 mg tablet Take 1 tablet by mouth daily at bedtime. clopidogrel (PLAVIX) 75 mg tablet Take 1 tablet by mouth once daily. pramipexole (MIRAPEX) 1.5 mg tablet Take 1 tablet by mouth daily at bedtime. sertraline (ZOLOFT) 50 mg tablet Take 1 tablet by mouth once daily. sertraline (ZOLOFT) 50 mg tablet Take 1 tablet by mouth once daily. pramipexole (MIRAPEX) 1.5 mg tablet Take 1 tablet by mouth daily at bedtime. blood sugar diagnostic (4FRONT PARTNERSUCH VERIO TEST STRIPS) test strip Test blood sugar(s) 2-3 times daily.Dx: Type 2 DM - Uncontrolled E11.65 Insulin: No albuterol (PROVENTIL) 2.5 mg /3 mL (0.083 %) nebulizer solution Use 3 mL via nebulizer every 4 hours as needed for wheezing/shortness of breath. guaiFENesin (MUCINEX) 600 mg 12 hr tablet Take 1 tablet by mouth every 12 hours. glipiZIDE (GLUCOTROL) 5 mg tablet Take 1 tablet by mouth daily before breakfast for 2 days. aspirin 81 mg cap Take by mouth. furosemide (LASIX) 20 mg tablet Take 2 tablets by mouth once daily. umeclidinium (INCRUSE ELLIPTA) 62.5 mcg/actuation inhaler Inhale 1 Puff as instructed once daily. fluticasone-vilanterol (BREO ELLIPTA) 100-25 mcg/dose inhaler Inhale 1 Inhalation as instructed once daily. Lancets lancets Test blood sugar(s) bid times daily. Dx: Type 2 DM - Controlled E11.9 Insulin: Yes blood sugar diagnostic (BLOOD GLUCOSE TEST) test strip Test blood sugar(s) 2 times daily. Dx: Type 2 DM - Controlled E11.9 Insulin: No Ibandronate (BONIVA) 150 mg tablet Take 1 tablet by mouth once every month. Take in the am with full glass of water on an empty stomach; do NOT eat or lie down for next 30 minutes. ipratropium-albuterol (DUONEB) 0.5 mg-3 mg(2.5 mg base)/3 mL nebu Inhale 3 mL as instructed every 4hours as needed for wheezing/shortness of breath. PULSE OXIMETER [facility] Use to check oxygen saturation. calcium-cholecalciferol, D3, (OSCAL+D 250) 250-125 mg-unit per tablet Take 1 tablet by mouth twice daily. OXYGEN, HOME THERAPY, 2 L/min by Nasal Cannula route daily at bedtime. (Patient taking differently:2.5 L/min by Nasal Cannula route once daily. PRN through the day and at night) COMPOUNDED PRESCRIPTION Bipap mask and tubing. COMPOUNDED PRESCRIPTION Adjust bilevel PAP to setting of 16/10 cmH2O with heated humidification COMPOUNDED PRESCRIPTION Initiate BiPAP @ 14/8 cm of water with humidification. Mask (per patient preference) optional chin strap (if indicated) , filters, tubing, humidifier and lifetime supplies. Dx. SHANA 327.23 Current Facility-Administered Medications Medication Dose Route Frequency perflutren lipid microspheres 1.3 mL in NaCl (PF) 0.9% 10 mL injection (DEFINITY) INTRAVENOUS DIRECTED PRN sodium chloride 0.9 % (flush) 10 mL (BD POSIFLUSH) 10 mL INTRAVENOUS DIRECTED PRN ALLERGIES Allergen Reactions Neurontin [Gabapent* Mental Status Change Slurred speech, It was like I was drunk. No seizures. Avelox [Moxifloxaci* Rash Wellbutrin [Bupropi* Hives, Itching Bupropion Hives REVIEW OF SYSTEMS: GENERAL: feeling well without fatigue, no recent change in weight HEENT: denies TUR[place], change in hearing or vision, no other ENT complaints RESPIRATORY: See HPI. CARDIOVASCULAR: See HPI. GI: normal appetite and tolerating PO well NEURO: no numbness or paresthesias and no weakness of the extremities PHYSICAL EXAMINATION: 97% on 3L NC per patient VIDEO EXAM: (if completed, performed via video enabled technology) GENERAL: alert and appropriate, in no distress, well-hydrated, well nourished, and happy, smiling, interactive RESPIRATORY: breathing non-labored NEUROLOGIC: no obvious deficit ASSESSMENT/PLAN: 1. Stage 3 severe COPD by GOLD classification ([facility]) - ICD9: 496, ICD10: J44.9 (primary diagnosis) Patient with frequent exacerbations requiring ED and/or hospitalizations. Add Azithromycin 250 mg daily. In a study of 1130 COPD/chronic bronchitis patients reported in N Engl J Med 2011; 365:689-698. April 19, 2011; comparing usual Rx plus 250 mg Azithromycin daily to usual Rx plus placebo for 1 year, time to 1st exacerbation was 266 days in the Azithromycin group as compared to 174 days in the placebo group, Hazard ratio for exacerbation was reduced to 0.73 in the Azithromycin group, the number needed to treat to prevent 1 exacerbation was 2.86; and there was no significant difference in nasopharyngeal colonization or macrolide resistance in the 2 groups. Will change from Incruse and Breo to Trelegy 1 inhalation daily. Rinse mouth after each use to helpprevent oral thrush. Albuterol HFA inhaler, 2 inhalations 10-15 minutes prior to activities associated with shortness ofbreath, and as needed for rescue relief of shortness of breath or wheezing, up to 4 times daily. - FLUTICASONE FUR. 100 MCG-UMECLID 62.5 MCG-VILANT 25 MCG INHALAT.POWDER - AZITHROMYCIN 250 MG TABLET 2. Chronic respiratory failure, unspecified whether with hypoxia or hypercapnia ([facility]) - ICD9: 518.83, ICD10: J96.10 Continue with 3L supplemental oxygen continuously. Patient is going to reach out to [facility] to see if her insurance will cover it. 3. Cigarette smoker - ICD9: 305.1, ICD10: F17.210 Cessation encouraged. Physiologic and physical aspects of tobacco addiction as well as strategies for quitting were discussed. Counseling was given focusing on the harmful effects of this addiction especially given the patient's medical condition(s) which will be worsened because of the chemicals in tobacco. - Prescription for Varneicline and Nicotine mini lozenges given - NICOTINE (POLACRILEX) 2 MG BUCCAL MINI LOZENGE - VARENICLINE 0.5 MG (11)-1 MG (42) TABLETS IN A DOSE PACK I spent a total of 31 minutes on the date of the service which included preparing to see the patient, [id number] patient care, completing clinical documentation, performing a medically appropriate examination, counseling and educating the patient/family/caregiver, and ordering medications, tests,or procedures Debo Oviedo PA-C documented in this encounterOhiohealth Southeastern Medical Center10-13-2022 History of Present illness Narrative* Jyoti Gardiner Population Health Navigator - 06/07/2022 11:53 AM EDT POPULATION HEALTH NAVIGATION OUTREACH Action/FYI Spoke to patient and scheduled pulmonary follow up and pcp follow up per message below. Pcp appt- 06-15-22 Pulmonary appt- 06-18-22 Pt identified by name and : YES, via phone Outreach Outcome/Action Spoke to patient or caregiver: Patient scheduled Did you use a PCP flex slot to schedule this appointment? No Reason for Outreach Community Monitoring Lindsey Payer: Payor: [facility] MEDIC[facility] / Plan: [facility] MEDICARE / Product Type: Medicare / Care Gap Reviewed:: Follow-up appointment Reminder: Reminder note to check Health Maintenance for items below Health Maintenance items due: HEPATITIS C SCREENING Never done BP CONTROLLED (<130/80) Never done DTAP,TDAP,TD(1 - Tdap) Never done ALPHA-1 ANTITRYPSIN DEFICIENCY SCREENING Never done SHINGRIX VACCINE(1 of 2) Never done DIABETIC FOOT EXAM due on 12/30/2019 ADVANCE DIRECTIVE DISCUSSION Never done DEPRESSION ASSESSMENT Never done COVID-19 VACCINE(4 - Booster for Pfizer series) due on 12/20/2021 INFLUENZA(1) due on 04/26/2022 URINE ALBUMIN:CREATININE RATIO due on 05/05/2022 HBA1C due on 05/10/2022 DILATED RETINAL EXAM due on 06/02/2022 Message Sent to Practice: No Navigation Signature: Jyoti Gardiner Population Health Navigator June 07, 2022 11:53 AM * Argenis Jewell RN - 06/07/2022 11:38 AM EDT [facility]IGHT [facility] TELEPHONIC OUTREACH Provider Action/FYI: Please contact patient to schedule appointments with PCP and Pulmonary. Thank you. Patient reports she is doing good, has been home for 3 weeks now from rehab, can tell she needs to work on building up her strength, would like home PT. Advised patient she will need to discuss with pcp at next OV, last pcp OV 03/05/22. Patient verbalized understanding. Patient had no further questions, concerns, needs at this time. Encounter forwarded to PSS pool Contact made with patient: Yes Patient identified by name and . Discussed care with patient It s nice talking to you again. As a reminder, this is our bi-weekly check-in where I will be asking you questions about your health. This will only take a few minutes of your time. Is this a good time? Yes Symptoms What Chronic Disease(s) does the patient have: COPD Do you check your blood pressures at home? No Do you have new or worse shortness of breath with activity? No Do you have new or worsening cough? No Do you have new or worsening wheezing? No Do you need to use your rescue (Albuterol) inhaler or nebulizer more often than normal? No Are you having any other symptoms that your PCP needs to know about? No Symptom Escalation The patient required an escalation for symptom(s)? No Medications Do you have any questions about taking your medication or which medications you should be on? No Do you need any medication refills at this time, including any of the medications you might take only when needed? No Social We would like to make sure you have what you need so that your basic needs are met- including your personal safety, food, housing and medications? Would you like to speak with a social work restaurant team member to help give you support for any of these needs? No It can be normal to feel anxious or down during a time like this. Would you like to talk to a mental health professional about how you have been feeling? No Closing Thank you for taking the time to talk with me today. We want to work with you to ensure that we arekeeping your medical condition(s) well-controlled and to keep you healthy and out of the doctor's office or hospital. It s also not too late for me to sign you up for automated weekly questionnaires through [employer]. This is an easy way for us to stay connected each week. Are you interested? No, I understand. We can always sign you up in the future if you change your mind. Just as a reminder, will continue to call you every other week to check in on your health. Our calls should take 10-15 minutes or less. Remember, if you have concerns in between our calls, please call your PCP's office right away. Thank you. Enter next patient outreach date for two weeks on the same day of the week as today in the Track PtOutreach and End outreach. documented in this encounterOhio[facility]-30-[facility]22 History of Present illness Narrative* Argenis Jewell RN - 05/25/2022 11:18 AM EDT [facility] TELEPHONIC OUTREACH Provider Action/FYI: Contact made with patient: No - Left message Yumiko my name is Argenis Jewell RN your Flanging Roll Operator from the [facility] I am calling today for your bi-weekly check in. I am sorry I missed your call. I will reach out to you again in two weeks. (if the third call I will reach out to you again next week) Enter next patient outreach date for the following using the Track Pt Outreach. End outreach. documented in this encounterOhiohealth [facility]09-29-2022 History of Present illness Narrative* Argenis Jewell RN - 05/24/2022 12:36 PM EDT [facility] TELEPHONIC OUTREACH Provider Action/FYI: Contact made with patient: No - Left message Yumiko my name is Argenis Jewell RN your Flanging Roll Operator from the [facility] I am calling today for your bi-weekly check in. I am sorry I missed your call. I will reach out to you again tomorrow. (if the third call I will reach out to you again next week) Enter next patient outreach date for the following business day using the Track Pt Outreach. End outreach. documented in this encounterOhio[facility]09-14-2022 History of Present illness Narrative* Argenis Jewell RN - 05/09/2022 10:35 AM EDT [facility]IGHT [facility] TELEPHONIC OUTREACH Provider Action/MINOO: Contact made with patient: No - Left message [place] my name is Argenis Jewell RN your Flanging Roll Operator from the [facility] I am calling today for your bi-weekly check in. I am sorry I missed your call. I will reach out to you again tomorrow. (if the third call I will reach out to you again next week) Enter next patient outreach date for the following business day using the Track Pt Outreach. End outreach. documented in this encounterOhio[facility]09-01-2022 History of Present illness Narrative* Argenis Jewell RN - 04/26/2022 11:50 AM EDT PRIMARY CARE COORDINATION QUICK NOTE Provider Murali/MNIOO Spoke to patient, states she is currently admitted at [facility], states she was not home very long beforeshe was readmitted. Patient states she will be going back to rehab facility at discharge. Much support and listening provided to patient. Follow up in 2 weeks. Patient identified by name and date . documented in this encounterOhiohealth [facility]08-30-2022 History of Present illness Narrative* Rowena Robin MD - 04/24/2022 10:30 AM EDT VIRTUAL VISIT PROGRESS NOTE This is a virtual visit using [employer] video visit. It required patient-provider interaction for themedical decision making as documented below. Tamiko Diamond is a 71 year old female seen for COPD. HPI: Current smoker with PMH significant for lung cancer s/p resection, severe COPD, CAD, DM2, HTN,GERD, DVT/PE, SHANA on BiPAP. Admitted for COPD 3 times in the last several months. Current treatmentof COPD with Incruse Ellipta, Breo Ellipta, supplemental oxygen. Each admission for COPD exacerbation, no evidence of congestive heart failure or pneumonia. She did not require ICU stay or noninvasive ventilation. After last admission, she was discharged to assisted for rehabilitation and just released to home last week. Since returning home, she is been very fatigued, depressed, having difficulty performing her ADLs. She has had cough productive of abbott phlegm, some wheezing, no chest pain or fever. She has been compliant with her nocturnal BiPAP. DATA: Reviewed EMR from her hospital stays at [facility]. Laboratory tests did not show evidence of carbon dioxide retention or elevated BNP. I personally reviewed the images of her chest x-rays which showed COPD changes but no overt infiltrate or congestive heart failure. HISTORY REVIEWED (electronic chart updated): PAST MEDICAL HISTORY Diagnosis Date Abnormal finding on Pap smear, ASCUS 12/2010 CAD (coronary artery disease) had 65 % blockage in RCA but normal ischemia. Cancer of lung (HCC) squamous cell Chronic airway obstruction, not elsewhere classified Compression fracture of body of thoracic vertebra (HCC) 04/08/2021 Depression Diabetes (HCC) Dislocation of left shoulder joint 09/2021 Essential hypertension 05/13/2019 Generalized osteoarthrosis, unspecified site GERD (gastroesophageal reflux disease) Irritable bowel syndrome Irritable bowel Leukocytosis 12/15/2020 Myalgia and myositis, unspecified Fibromyalgia (myalgia and myositis) Obstructive sleep apnea wears BiPap Osteoporosis, unspecified 2 dorsal spine compression fractures 03/2021. Other extrapyramidal disease and abnormal movement disorder Pure hypercholesterolemia Restless leg Rt VATS Wedge, then RULobectomy 10/20/2013 Patient is an active smoker of 75 pack years, presented with a 1.4 cm spiculated, cavitary lesion in the right upper lung. PET scan showed increased uptake in the lesion with an SUV 5.5 and no evidence of hilar, mediastinal or extrathoracic disease. On 10/22/13, Dr. Calvert performed right VATS, right upper lobectomy, and lymphadenectomy (R2, R4, 7). Plan:: -Pain management -Out of bed, frequent ambulation -cough/deep breathe, acapella -regular diet - respiratory therapy- Desat study for home oxygen . Tobacco abuse 10/23/2013 Unspecified asthma(493.90) adult only PAST SURGICAL HISTORY Procedure Laterality Date ARTHRS KNE SURG W/MENISCECTOMY MED/LAT W/SHVG Right 02/11/2015 Right knee arthroscopic medial meniscectomu with medial chondroplasty DELIVERY ONLY , low transverse COLONOSCOPY 12/18/2021 COLONOSCOPY FLX DX W/COLLJ SPEC WHEN PFRMD 2005 Colonoscopy, normal COLONOSCOPY FLX DX W/COLLJ SPEC WHEN PFRMD 10/18/2015 COLONOSCOPY FLX DX W/COLLJ SPEC WHEN PFRMD 07/13/2019 Colonoscopy COLPOPEXY VAGINAL EXTRAPERITONEAL APPROACH EGD TRANSORAL BIOPSY SINGLE/MULTIPLE 10/18/2015 EGD W/O BRSH SPEC VARICIES INJ 12/18/2021 ESOPHAGOGASTRODUODENOSCOPY TRANSORAL DIAGNOSTIC EGD HEMORRHOID;BAND LIGAT, SNGL/MUL 07/2021 PAST SURGICAL HISTORY OF 03/20/2013 left knee arthroscopy with meniscus repair PAST SURGICAL HISTORY OF 2013 right upper lobectomy- cancer PAST SURGICAL HISTORY OF 01/24/2015 nerve block intercostal with c-arm REPAIR RECTOCELE SEPARATE PROCEDURE THORACOSCOPY SURG LOBECTOMY Right 10/23/2013 Elkin Calvert MD. RUL TOTAL ABDOMINAL HYSTERECT W/WO RMVL TUBE OVARY Hysterectomy, CRISTY with rectocele FAMILY HISTORY Problem Relation Age of Onset Diabetes Father Heart disease Father Heart Father Colon Polyps Father Breast Cancer Sister Diabetes Sister Cancer Brother Prostate and throat cancer Heart disease Brother Stroke Brother Hypertension Brother Heart Brother Diabetes Brother No Ocular Disease No Family History Social History Tobacco Use Smoking status: Former Packs/day: 1.00 Years: 52.00 Pack years: 52.00 Types: Cigarettes Start date: 1964 Quit date: 04/24/2021 Years since quittin.9 Smokeless tobacco: Never Tobacco comments: wearing patch Vaping Use Vaping Use: Former Substances: Nicotine, Flavoring Substance Use Topics Alcohol use: Yes Comment: once a year Drug use: No Current Outpatient Medications Medication Sig rOPINIRole (REQUIP) 2 mg tablet Take 1 tablet by mouth daily at bedtime. losartan (COZAAR) 50 mg tablet Take 1 tablet by mouth once daily. atorvastatin (LIPITOR) 80 mg tablet Take 1 tablet by mouth daily at bedtime. traZODone (DESYREL) 100 mg tablet Take 1 tablet by mouth daily at bedtime. clopidogrel (PLAVIX) 75 mg tablet Take 1 tablet by mouth once daily. pramipexole (MIRAPEX) 1.5 mg tablet Take 1 tablet by mouth daily at bedtime. sertraline (ZOLOFT) 50 mg tablet Take 1 tablet by mouth once daily. sertraline (ZOLOFT) 50 mg tablet Take 1 tablet by mouth once daily. pramipexole (MIRAPEX) 1.5 mg tablet Take 1 tablet by mouth daily at bedtime. blood sugar diagnostic (4FRONT PARTNERSUCH VERIO TEST STRIPS) test strip Test blood sugar(s) 2-3 times daily.Dx: Type 2 DM - Uncontrolled E11.65 Insulin: No albuterol (PROVENTIL) 2.5 mg /3 mL (0.083 %) nebulizer solution Use 3 mL via nebulizer every 4 hours as needed for wheezing/shortness of breath. guaiFENesin (MUCINEX) 600 mg 12 hr tablet Take 1 tablet by mouth every 12 hours. glipiZIDE (GLUCOTROL) 5 mg tablet Take 1 tablet by mouth daily before breakfast for 2 days. aspirin 81 mg cap Take by mouth. cyclobenzaprine (FLEXERIL) 10 mg tablet Take 1/2 - 1 tablet at bedtime furosemide (LASIX) 20 mg tablet Take 2 tablets by mouth once daily. meloxicam (MOBIC) 15 mg tablet Take 1 tablet by mouth once daily as needed for pain. With food. umeclidinium (INCRUSE ELLIPTA) 62.5 mcg/actuation inhaler Inhale 1 Puff as instructed once daily. fluticasone-vilanterol (BREO ELLIPTA) 100-25 mcg/dose inhaler Inhale 1 Inhalation as instructed once daily. Lancets lancets Test blood sugar(s) bid times daily. Dx: Type 2 DM - Controlled E11.9 Insulin: Yes blood sugar diagnostic (BLOOD GLUCOSE TEST) test strip Test blood sugar(s) 2 times daily. Dx: Type 2 DM - Controlled E11.9 Insulin: No Ibandronate (BONIVA) 150 mg tablet Take 1 tablet by mouth once every month. Take in the am with full glass of water on an empty stomach; do NOT eat or lie down for next 30 minutes. ipratropium-albuterol (DUONEB) 0.5 mg-3 mg(2.5 mg base)/3 mL nebu Inhale 3 mL as instructed every 4hours as needed for wheezing/shortness of breath. PULSE OXIMETER [facility] Use to check oxygen saturation. calcium-cholecalciferol, D3, (OSCAL+D 250) 250-125 mg-unit per tablet Take 1 tablet by mouth twice daily. OXYGEN, HOME THERAPY, 2 L/min by Nasal Cannula route daily at bedtime. (Patient taking differently:2.5 L/min by Nasal Cannula route once daily. PRN through the day and at night ) COMPOUNDED PRESCRIPTION Bipap mask and tubing. COMPOUNDED PRESCRIPTION Adjust bilevel PAP to setting of 16/10 cmH2O with heated humidification COMPOUNDED PRESCRIPTION Initiate BiPAP @ 14/8 cm of water with humidification. Mask (per patient preference) optional chin strap (if indicated) , filters, tubing, humidifier and lifetime supplies. Dx. SHANA 327.23 Current Facility-Administered Medications Medication Dose Route Frequency perflutren lipid microspheres 1.3 mL in NaCl (PF) 0.9% 10 mL injection (DEFINITY) INTRAVENOUS DIRECTED PRN sodium chloride 0.9 % (flush) 10 mL (BD POSIFLUSH) 10 mL INTRAVENOUS DIRECTED PRN ALLERGIES Allergen Reactions Neurontin [Gabapent* Mental Status Change Slurred speech, It was like I was drunk. No seizures. Avelox [Moxifloxaci* Rash Wellbutrin [Bupropi* Hives, Itching Bupropion Hives REVIEW OF SYSTEMS: GENERAL: no recent change in weight, no fever, fatigue RESP: See HPI CARDIAC: No chest pain, palpitations, increased edema PSYCH: Depressed PHYSICAL EXAMINATION: VIDEO EXAM: (if completed, performed via video enabled technology) GENERAL: alert and appropriate, in no distress and flat affect RESPIRATORY: breathing non-labored, moist cough ASSESSMENT: 1. Severe COPD, GOLD stage 3 -She will continue on triple inhaler therapy with as needed albuterol -Continue tobacco abstinence 2. Acute bronchitis -Antibiotic course and steroids sent into her pharmacy -She may benefit from chronic azithromycin usage 3. Chronic respiratory failure -Continue supplemental oxygen. Recommended as needed use of her BiPAP during the day Rowena Robin MD documented in this encounterOhio[facility]08-18-2022 History of Present illness Narrative* Argenis Jewell RN - 04/12/2022 12:47 PM EDT [facility] TELEPHONIC OUTREACH Provider Action/FYI: Patient states she is [facility] post hospital discharge 3 weeks ago. Patient states she will be discharged to home tomorrow with [facility], Patient feels she is not ready to go home, voices concerns since she was inpatient three times overone month, states this is not up to her. Much support and listening provided to patient who verbalized appreciation. Patient had no further questions, concerns, needs at this time. Contact made with patient: Yes Patient identified by name and . Discussed care with patient It s nice talking to you again. As a reminder, this is our bi-weekly check-in where I will be asking you questions about your health. This will only take a few minutes of your time. Is this a good time? Yes Symptoms What Chronic Disease(s) does the patient have: COPD Do you check your blood pressures at home? Yes, Enter readings: checked by nursing staff Do you have new or worse shortness of breath with activity? No Do you have new or worsening cough? No Do you have new or worsening wheezing? No Do you need to use your rescue (Albuterol) inhaler or nebulizer more often than normal? No Are you having any other symptoms that your PCP needs to know about? No Symptom Escalation The patient required an escalation for symptom(s)? No Medications Do you have any questions about taking your medication or which medications you should be on? No Do you need any medication refills at this time, including any of the medications you might take only when needed? No Social We would like to make sure you have what you need so that your basic needs are met- including your personal safety, food, housing and medications? Would you like to speak with a social work restaurant team member to help give you support for any of these needs? No It can be normal to feel anxious or down during a time like this. Would you like to talk to a mental health professional about how you have been feeling? No Closing Thank you for taking the time to talk with me today. We want to work with you to ensure that we arekeeping your medical condition(s) well-controlled and to keep you healthy and out of the doctor's office or hospital. It s also not too late for me to sign you up for automated weekly questionnaires through [employer]. This is an easy way for us to stay connected each week. Are you interested? No, I understand. We can always sign you up in the future if you change your mind. Just as a reminder, will continue to call you every other week to check in on your health. Our calls should take 10-15 minutes or less. Remember, if you have concerns in between our calls, please call your PCP's office right away. Thank you. Enter next patient outreach date for two weeks on the same day of the week as today in the Track PtOutreach and End outreach. documented in this encounterOhiohealth [facility] Center08-11-2022 Miscellaneous Notes* Telephone Encounter - Jeanna Reynoso RN - 04/05/2022 10:23 AM EDT Patient has been identified by name and date of : Yes Pharmacy phones for refill(s): Requested Prescriptions Pending Prescriptions Disp Refills rOPINIRole (REQUIP) 2 mg tablet 30 tablet 11 Sig: Take 1 tablet by mouth daily at bedtime. losartan (COZAAR) 50 mg tablet 90 tablet 3 Sig: Take 1 tablet by mouth once daily. atorvastatin (LIPITOR) 80 mg tablet 90 tablet 1 Sig: Take 1 tablet by mouth daily at bedtime. traZODone (DESYREL) 100 mg tablet 90 tablet 1 Sig: Take 1 tablet by mouth daily at bedtime. clopidogrel (PLAVIX) 75 mg tablet 90 tablet 1 Sig: Take 1 tablet by mouth once daily. Date of last office visit in primary care: 03/05/2022 Last 2 Encounter Wt Readings: Date: Wt: 03/05/2022 88.1 kg (194 lb 3.2 oz) 02/13/2022 90.4 kg (199 lb 4.7 oz) Previous labs/tests for medication: Blood Pressure: BUN (mg/dL) Date Value 02/15/2022 22 08/03/2021 14 Sodium (mmol/L) Date Value 02/15/2022 139 08/03/2021 137 Last 1 Encounter BP Readings: Date: BP: 03/15/2022 120/80 Liver Function: ALT (U/L) Date Value 02/13/2022 12 07/14/2021 12 AST (U/L) Date Value 02/13/2022 12 07/14/2021 15 Please advise. Thank you. Jeanna Reynoso RN documented in this encounterOhiohealth [facility] Center08-03-2022 History of Present illness Narrative* Argenis Jewell RN - 03/28/2022 9:40 AM EDT [facility] TELEPHONIC OUTREACH Provider Action/FYI: Contact made with patient: No - Left message Hello my name is Argenis Jewell RN your Flanging Roll Operator from the [facility] I am calling today for your bi-weekly check in. I am sorry I missed your call. I will reach out to you again tomorrow. (if the third call I will reach out to you again next week) Enter next patient outreach date for the following business day using the Track Pt Outreach. End outreach. documented in this encounterOhiohealth [facility] Center07-22-2022 Miscellaneous Notes* Telephone Encounter - Jeanna Reynoso RN - 03/16/2022 11:31 AM EDT MINOO Vee from [facility] source calls to let provider know that patient was admitted to [facility] yesterday 03/15/2022 with Acute COPD exacerbation. Jeanna Reynoso RN documented in this encounterOhiohealth Southeastern Medical Center07-21-2022 History of Present illness Narrative* Debo Oviedo PA-C - 03/15/2022 2:26 PM EDT Patient seen briefly in the room. She was short of breath and states it doesn't feel like her COPD exacerbations. She also reports increased lower extremity edema. I attempted to get a STAT D dimer and STAT US bilateral lower extremity, however, I was not able toget the US done. I offered for patient to schedule test and she preferred to go to the ED for further evaluation. Debo Oviedo PA-C documented in this encounterOhiohealth Southeastern Medical Center07-21-2022 History of Present illness Narrative* RT Uma(R) - 03/15/2022 1:30 PM EDT Radiology Service Progress Note PATIENT NAME: Tamiko Diamond DATE OF SERVICE: March 15, 2022 TIME: 1:26 PM PATIENT IDENTITY VERIFICATION COMPLETED USING TWO (2) IDENTIFIERS: Name and Date of confirmedby patient verbally. FALL SCREENING: Has the patient had 2 falls in the last year or 1 fall with injury or currently using an Ambulatory Assistive Device (Walker, Cane, Wheelchair, Crutches, etc.)? No PATIENT GENDER DATA: Female. status: : No status: NO. PATIENT RELEVANT IMPLANT DATA REVIEWED: Not Applicable RADIOLOGY DEPARTMENT: Mammography PERIPHERAL IV DATA: Not applicable SIGNED BY: RT Uma(R) March 15, 2022 1:26 PM documented in this encounterOhiohealth Southeastern Medical Center07-21-2022 History of Present illness Narrative* Jyoti Pabon Ma - 03/15/2022 11:16 AM EDT Appt scheduled * Heladio Madsen MD - 03/15/2022 10:45 AM EDT If edema. Is worsening needs seen to rule out clots etc. * Argenis Jewell RN - 03/15/2022 10:08 AM EDT [facility] TELEPHONIC OUTREACH Provider Action/FYI: Patient reports edema in bilateral feet and ankles, left greater than right. Swelling has been present since hospital discharge, has not worsened or improved since 03/05/22 pcp OV. Patient states the swelling does not reduce over night, states it is painful to walk and at times effects her balance. Patient states she is able to still wear certain shoes, but not tennis shoes, more open shoes like sandals. Patient continues to take Lasix 20 mg daily, has not missed any doses. Per med list, Lasix is written for 40 mg daily. Patient reports BP's 110's-120's/60's-70's Patient denies increased sob Next pcp appt 04/10/22 Please review and advise. Thank you. Contact made with patient: Yes Patient identified by name and . Discussed care with patient It s nice talking to you again. As a reminder, this is our bi-weekly check-in where I will be asking you questions about your health. This will only take a few minutes of your time. Is this a good time? Yes Symptoms What Chronic Disease(s) does the patient have: COPD Do you check your blood pressures at home? Yes, Enter readings: see fyi Do you have new or worse shortness of breath with activity? No Do you have new or worsening cough? No Do you have new or worsening wheezing? No Do you need to use your rescue (Albuterol) inhaler or nebulizer more often than normal? No Are you having any other symptoms that your PCP needs to know about? Yes Symptom Escalation The patient required an escalation for symptom(s)? No Medications Do you have any questions about taking your medication or which medications you should be on? No Do you need any medication refills at this time, including any of the medications you might take only when needed? No Social We would like to make sure you have what you need so that your basic needs are met- including your personal safety, food, housing and medications? Would you like to speak with a social work restaurant team member to help give you support for any of these needs? No It can be normal to feel anxious or down during a time like this. Would you like to talk to a mental health professional about how you have been feeling? No Closing Thank you for taking the time to talk with me today. We want to work with you to ensure that we arekeeping your medical condition(s) well-controlled and to keep you healthy and out of the doctor's office or hospital. It s also not too late for me to sign you up for automated weekly questionnaires through [employer]. This is an easy way for us to stay connected each week. Are you interested? No, I understand. We can always sign you up in the future if you change your mind. Just as a reminder, will continue to call you every other week to check in on your health. Our calls should take 10-15 minutes or less. Remember, if you have concerns in between our calls, please call your PCP's office right away. Thank you. Enter next patient outreach date for two weeks on the same day of the week as today in the Track PtOutreach and End outreach. documented in this encounterOhiohealth Sout[facility] Center07-20-2022 History of Present illness Narrative* Argenis Jewell RN - 03/14/2022 11:14 AM EDT [facility] TELEPHONIC OUTREACH Provider Action/FYI: Contact made with patient: No - Left message Yumiko my name is Argenis Jewell RN your Flanging Roll Operator from the [facility] I am calling today for your bi-weekly check in. I am sorry I missed your call. I will reach out to you again tomorrow. (if the third call I will reach out to you again next week) Enter next patient outreach date for the following using the Track Pt Outreach. End outreach. documented in this encounterOhiohealth [facility] Center07-11-2022 Miscellaneous Notes* Addendum Note - Heladio Madsen MD - 03/05/2022 2:43 PM EDT Addended by: HELADIO MADSEN on: 03/05/2022 02:43 PM Modules accepted: Orders documented in this encounterOhiohealth Southeastern Medical Center07-11-2022 History of Present illness Narrative* Heladio Madsen MD - 03/05/2022 1:54 PM EDT Patient presents with: ER F/U: 02/23-02/26 COPD HPI: Patient presents today for office visit for hospital follow up Hospitalized at [facility]. Came home for two days and then back into [facility] until February 26. Her nurse at visiting nurse had suggested hospice to get an aide. She is not ready for it. Breathing is better but still not perfect. Seeing Laura Oviedo on the . No cough or fever or chills Has two more days of steroids. No chest pain. Gets rare palpitations. Has run out of zoloft and mirapex. Sugars have been ok. See previous ov: ADMIT DATE: 02/13/2022 DISCHARGE DATE: 02/16/22 MY DOCTORS AND MEDICAL TEAM: My Main Hospital Doctor: Geoff Malone MD Primary Care Provider: Heladio Madsen MD My Medical Team Members: Treatment Team: Attending Provider: Geoff Malone MD Consulting: Alexandro Marques MD Primary Service: [facility] 1 MY CONDITION AT DISCHARGE: Stable REASON I WAS IN THE HOSPITAL: Shortness of breath SUMMARY OF WHAT HAPPENED WHILE I WAS IN THE HOSPITAL: You presented to the hospital with a complaint of shortness of breath, you were found to be in a COPD exacerbation. You were treated with as needed breathing treatments and steroids after which her symptoms improved considerably. You are being sent home on steroids. While on steroids you should also take glipizide to control your blood sugars. OTHER PROBLEMS/DIAGNOSIS: Principal Problem: COPD exacerbation (HCC) Active Problems: COPD (chronic obstructive pulmonary disease) (HCC) Restless leg syndrome SHANA (obstructive sleep apnea) Pure hypercholesterolemia Lung cancer (HCC) CAD (coronary artery disease) Essential hypertension History of pulmonary embolus (PE) COPD with exacerbation (HCC) Centrilobular emphysema (HCC) Type 2 diabetes mellitus (HCC) Bilateral calf pain Resolved Problems: * No resolved hospital problems. * OPERATIONS PERFORMED WHILE IN THE HOSPITAL: None IMPORTANT TEST/PROCEDURES: No procedures performed TEST RESULTS NOT AVAILABLE AT THIS TIME: No pending results Discharge Disposition Discharge Disposition: Home With Self Care Follow Up Appointments Follow-Up Appointment When: In 1 week Heladio Madsen MD [phone] [address] [facility] [id number] MEDICATIONS: Current Outpatient Medications Medication Sig blood sugar diagnostic (ONETOUCH VERIO TEST STRIPS) test strip Test blood sugar(s) 2-3 times daily.Dx: Type 2 DM - Uncontrolled E11.65 Insulin: No albuterol (PROVENTIL) 2.5 mg /3 mL (0.083 %) nebulizer solution Use 3 mL via nebulizer every 4 hours as needed for wheezing/shortness of breath. benzonatate (TESSALON PERLE) 100 mg capsule Take 1 capsule by mouth three times daily. guaiFENesin (MUCINEX) 600 mg 12 hr tablet Take 1 tablet by mouth every 12 hours. glipiZIDE (GLUCOTROL) 5 mg tablet Take 1 tablet by mouth daily before breakfast for 2 days. aspirin 81 mg cap Take by mouth. cyclobenzaprine (FLEXERIL) 10 mg tablet Take 1/2 - 1 tablet at bedtime furosemide (LASIX) 20 mg tablet Take 2 tablets by mouth once daily. meloxicam (MOBIC) 15 mg tablet Take 1 tablet by mouth once daily as needed for pain. With food. traZODone (DESYREL) 100 mg tablet Take 1 tablet by mouth daily at bedtime. atorvastatin (LIPITOR) 80 mg tablet Take 1 tablet by mouth daily at bedtime. clopidogrel (PLAVIX) 75 mg tablet Take 1 tablet by mouth once daily. losartan (COZAAR) 100 mg tablet Take 1 tablet by mouth once daily. (Patient taking differently: Take 50 mg by mouth once daily. ) sertraline (ZOLOFT) 50 mg tablet Take 1/2 tab once a day orally for one week then 1 tab once a day rOPINIRole (REQUIP) 2 mg tablet Take 1 tablet by mouth daily at bedtime. umeclidinium (INCRUSE ELLIPTA) 62.5 mcg/actuation inhaler Inhale 1 Puff as instructed once daily. fluticasone-vilanterol (BREO ELLIPTA) 100-25 mcg/dose inhaler Inhale 1 Inhalation as instructed once daily. pramipexole (MIRAPEX) 1.5 mg tablet Take 1 tablet by mouth daily at bedtime. Lancets lancets Test blood sugar(s) bid times daily. Dx: Type 2 DM - Controlled E11.9 Insulin: Yes blood sugar diagnostic (BLOOD GLUCOSE TEST) test strip Test blood sugar(s) 2 times daily. Dx: Type 2 DM - Controlled E11.9 Insulin: No Ibandronate (BONIVA) 150 mg tablet Take 1 tablet by mouth once every month. Take in the am with full glass of water on an empty stomach; do NOT eat or lie down for next 30 minutes. ipratropium-albuterol (DUONEB) 0.5 mg-3 mg(2.5 mg base)/3 mL nebu Inhale 3 mL as instructed every 4hours as needed for wheezing/shortness of breath. PULSE OXIMETER [facility] Use to check oxygen saturation. pantoprazole DR (PROTONIX) 40 mg tablet Take 1 tablet by mouth once daily. calcium-cholecalciferol, D3, (OSCAL+D 250) 250-125 mg-unit per tablet Take 1 tablet by mouth twice daily. OXYGEN, HOME THERAPY, 2 L/min by Nasal Cannula route daily at bedtime. (Patient taking differently:2.5 L/min by Nasal Cannula route once daily. PRN through the day and at night ) COMPOUNDED PRESCRIPTION Bipap mask and tubing. COMPOUNDED PRESCRIPTION Adjust bilevel PAP to setting of 16/10 cmH2O with heated humidification COMPOUNDED PRESCRIPTION Initiate BiPAP @ 14/8 cm of water with humidification. Mask (per patient preference) optional chin strap (if indicated) , filters, tubing, humidifier and lifetime supplies. Dx. SHANA 327.23 Current Facility-Administered Medications Medication Dose Route Frequency perflutren lipid microspheres 1.3 mL in NaCl (PF) 0.9% 10 mL injection (DEFINITY) INTRAVENOUS DIRECTED PRN sodium chloride 0.9 % (flush) 10 mL (BD POSIFLUSH) 10 mL INTRAVENOUS DIRECTED PRN ALLERGIES: ALLERGIES Allergen Reactions Neurontin [Gabapent* Mental Status Change Slurred speech, It was like I was drunk. No seizures. Avelox [Moxifloxaci* Rash Wellbutrin [Bupropi* Hives, Itching Bupropion Hives PAST MEDICAL HISTORY Diagnosis Date Abnormal finding on Pap smear, ASCUS 12/2010 CAD (coronary artery disease) had 65 % blockage in RCA but normal ischemia. Cancer of lung (HCC) squamous cell Chronic airway obstruction, not elsewhere classified Compression fracture of body of thoracic vertebra (HCC) 04/08/2021 Depression Diabetes (HCC) Dislocation of left shoulder joint 09/2021 Essential hypertension 05/13/2019 Generalized osteoarthrosis, unspecified site GERD (gastroesophageal reflux disease) Irritable bowel syndrome Irritable bowel Leukocytosis 12/15/2020 Myalgia and myositis, unspecified Fibromyalgia (myalgia and myositis) Obstructive sleep apnea wears BiPap Osteoporosis, unspecified 2 dorsal spine compression fractures 03/2021. Other extrapyramidal disease and abnormal movement disorder Pure hypercholesterolemia Restless leg Rt VATS Wedge, then RULobectomy 10/20/2013 Patient is an active smoker of 75 pack years, presented with a 1.4 cm spiculated, cavitary lesion in the right upper lung. PET scan showed increased uptake in the lesion with an SUV 5.5 and no evidence of hilar, mediastinal or extrathoracic disease. On 10/22/13, Dr. Calvert performed right VATS, right upper lobectomy, and lymphadenectomy (R2, R4, 7). Plan:: -Pain management -Out of bed, frequent ambulation -cough/deep breathe, acapella -regular diet - respiratory therapy- Desat study for home oxygen . Tobacco abuse 10/23/2013 Unspecified asthma(493.90) adult only PAST SURGICAL HISTORY Procedure Laterality Date ARTHRS KNE SURG W/MENISCECTOMY MED/LAT W/SHVG Right 02/11/2015 Right knee arthroscopic medial meniscectomu with medial chondroplasty DELIVERY ONLY , low transverse COLONOSCOPY 12/18/2021 COLONOSCOPY FLX DX W/COLLJ SPEC WHEN PFRMD 2006 Colonoscopy, normal COLONOSCOPY FLX DX W/COLLJ SPEC WHEN PFRMD 10/18/2015 COLONOSCOPY FLX DX W/COLLJ SPEC WHEN PFRMD 07/13/2019 Colonoscopy COLPOPEXY VAGINAL EXTRAPERITONEAL APPROACH EGD TRANSORAL BIOPSY SINGLE/MULTIPLE 10/18/2015 EGD W/O BRSH SPEC VARICIES INJ 12/18/2021 ESOPHAGOGASTRODUODENOSCOPY TRANSORAL DIAGNOSTIC EGD HEMORRHOID;BAND LIGAT, SNGL/MUL 07/2021 PAST SURGICAL HISTORY OF 03/20/2013 left knee arthroscopy with meniscus repair PAST SURGICAL HISTORY OF 2013 right upper lobectomy- cancer PAST SURGICAL HISTORY OF 01/24/2015 nerve block intercostal with c-arm REPAIR RECTOCELE SEPARATE PROCEDURE THORACOSCOPY SURG LOBECTOMY Right 10/23/2013 Elkin Calvert MD. RUL TOTAL ABDOMINAL HYSTERECT W/WO RMVL TUBE OVARY Hysterectomy, CRISTY with rectocele FAMILY HISTORY Problem Relation Age of Onset Diabetes Father Heart disease Father Heart Father Colon Polyps Father Breast Cancer Sister Diabetes Sister Cancer Brother Prostate and throat cancer Heart disease Brother Stroke Brother Hypertension Brother Heart Brother Diabetes Brother No Ocular Disease No Family History Social History Tobacco Use Smoking status: Former Smoker Packs/day: 1.00 Years: 52.00 Pack years: 52.00 Types: Cigarettes Start date: 1962 Quit date: 04/24/2021 Years since quittin.8 Smokeless tobacco: Never Used Tobacco comment: wearing patch Vaping Use Vaping Use: Former Substances: Nicotine, Flavoring Substance Use Topics Alcohol use: Yes Comment: once a year Drug use: No Reviewed current medications, allergies, past medical history, surgical history, family history andsocial history today. REVIEW OF SYSTEMS All other reviewed and negative other than HPI. VITALS: BP 126/76 Pulse 112 Temp 37.3 C (99.1 F) (Left Tympanic) Resp 18 Wt 88.1 kg (194 lb 3.2 oz) SpO2 94% BMI 34.40 kg/m Last 4 Encounter Wt Readings: Date: Wt: 02/13/2022 90.4 kg (199 lb 4.7 oz) 01/28/2022 86.6 kg (191 lb) 12/27/2021 86.6 kg (191 lb) 12/18/2021 87.1 kg (192 lb) PHYSICAL EXAMINATION: General appearance: Well appearing, alert, in no acute distress, well-hydrated, well nourished. andnow with scooter Skin: Skin color, texture, turgor normal, no suspicious rashes or lesions Head: Normocephalic, no masses, lesions, tenderness or abnormalities Lungs: Lungs clear to auscultation. No wheezing, rhonchi, rales Heart: RRR without murmur, gallop, or rubs. No ectopy Abdomen: Normal abdominal exam, Abdomen soft, non-tender. Bowel sounds normal. No masses, organomegaly Extremities: No deformities, edema, skin discoloration, clubbing or cyanosis. Good capillary refill. Musculoskeletal: No joint swelling, deformity, or tenderness Peripheral pulses: Normal Neuro: Negative. ASSESSMENT/PLAN: 1. COPD with exacerbation (HCC) - ICD9: 491.21, ICD10: J44.1 (primary diagnosis) - finish meds. See pulmonary. 2. Anxiety with depression - ICD9: 300.4, ICD10: F41.8 - refilled meds. - SERTRALINE 50 MG TABLET - SERTRALINE 50 MG TABLET 3. Essential hypertension - ICD9: 401.9, ICD10: I10 - good control - Continue current medication(s) - Goal of BP <130/80 - BASIC METABOLIC PNL 4. Coronary artery disease involving [place] coronary artery of [place] heart without angina pectoris- ICD9: 414.01, ICD10: I25.10 - CBC + DIFF - CONSULT TO CARDIOLOGY 5. Stable angina pectoris (HCC) - ICD9: 413.9, ICD10: I20.8 - see cardiology 6. Type 2 diabetes mellitus without complication, without long-term current use of insulin (HCC) - ICD9: 250.00, ICD10: E11.9 Controlled. - Continue current medications - HGB A1C 7. Screening breast examination - ICD9: V76.10, ICD10: Z12.39 - Follow up for annual exam in one year. - ELIZA SCREENING Heladio aMdsen MD documented in this encounterOhio[facility] History of Present illness Narrative* Iram Brand RN - 02/28/2022 3:03 PM EDT PRIMARY CARE COORDINATION QUICK NOTE Provider Action/FYI Left message to call office if she is having problems getting supplies. Patient identified by name and date . documented in this encounterOhiohealth [facility]07-05-2022 Miscellaneous Notes* Telephone Encounter - Jyoti Pabon Ma - 02/27/2022 4:16 PM EDT Refaxed to correct number * Telephone Encounter - Jerri Odom LPN - 02/27/2022 2:43 PM EDT Hospice nurse calling back said she heard the call but it was fax machine calling her phone line. Need to refax order to fax number [phone]. * Telephone Encounter - Jyoti Pabon Ma - 02/27/2022 2:36 PM EDT Order has been faxed as requested * Telephone Encounter - Heladio Madsen MD - 02/27/2022 1:10 PM EDT placed * Telephone Encounter - Jyoti Pabon Ma - 02/27/2022 11:[address] order so it can be faxed to facility * Telephone Encounter - Heladio Madsen MD - 02/27/2022 11:06 AM EDT Ok to do * Telephone Encounter - Ching Dobson RN - 02/27/2022 9:29 AM EDT Shavon with [facility] calls to request an order for hospice eval and treat. Shavon requesting faxed order and H&P be faxed to [phone]. Spoke to daughter (Camille) and she is agreeable to order for hospice eval and tx. She reports that patient discharged from [facility] and is still having breathing troubles and feels hospice would benefit patient. Please review and advise, Ching Dobson RN documented in this encounterOhiohealth [facility]07-05-2022 Miscellaneous Notes* Telephone Encounter - Tea Sin MA - 02/27/2022 3:53 PM EDT The following approved medication requests have been transmitted electronically. Signed Prescriptions Disp Refills blood sugar diagnostic (ONETOUCH VERIO TEST STRIPS) test strip 50 Strip 11 Sig: Test blood sugar(s) 2-3 times daily. Dx: Type 2 DM - Uncontrolled E11.65 Insulin: No Authorizing Provider: HELADIO MADSEN MA * Telephone Encounter - Anayeli Everett LPN - 02/27/2022 1:09 PM EDT Pt calling to request One Touch Verio Flex test strips, states she was in [facility] 02/23/22 - 02/26/22 for aCOPD exasperation & was found to have a blood sugar of 580. Pt states she was instructed to check blood sugars before each meal & at bedtime. Pt was also given glargine to use based on BS readings. Pt was scheduled for a hospital FU 03/05/22 with pcp. Anayeli Everett LPN documented in this encounterOhiohealth [facility] Center07-05-2022 History of Present illness Narrative* Argenis Jewell RN - 02/27/2022 3:49 PM EDT INSIGHT CDM TELEPHONIC OUTREACH Provider Action/FYI: Contact made with patient: No - Unable to leave message Entered next patient outreach date for the following business day, if third call please enter next outreach date for one week in the Track Pt. Outreach - End Outreach documented in this encounterOhiohealth [facility] Center06-30-2022 Miscellaneous Notes* Telephone Encounter - Heladio Madsen MD - 02/22/2022 4:08 PM EDT noted * Telephone Encounter - Jerri Odom LPN - 02/22/2022 3:48 PM EDT Stephany from [facility] calling with OT plan of care, 1 visit weekly for 6 weeks working on ADL's. documented in this encounterOhiohealth [facility] Center06-28-2022 Miscellaneous Notes* Telephone Encounter - Ching Dobson RN - 02/20/2022 8:46 AM EDT Manjit with [facility] call in and provider message given. Manjit verbalizes understanding. Ching Dobson RN * Telephone Encounter - Marlon Sung LPN - 02/20/2022 8:35 AM EDT Left message with certified nurse midwife (Jyoti) for Manjit to return call to office. Marlon Sung LPN * Telephone Encounter - Heladio Madsen MD - 02/19/2022 4:26 PM EDT Ok to do * Telephone Encounter - Elena Castellano RN - 02/19/2022 4:15 PM EDT Manjit with [facility] called I and reported that Pt was DCed for the hospital 02/16/22, and they will be resuming PT and wanting to add OT/SN on 02/20/22. They are asking if provider will still follow, as he was following before hospital admission and be willing to add orders for the othertwo therapies. documented in this encounterOhiohealth [facility] Center06-27-2022 History of Present illness Narrative* Argenis Jewell RN - 02/19/2022 9:09 AM EDT INSIGHT CDM TELEPHONIC OUTREACH Provider Action/FYI: Left detailed message on VM that pcp printed off new order for nebulizer machine, see 02/17/22 encounter. Advised patient to call office to let someone know if she would like it faxed or if someone is picking it up. Will follow up tomorrow. Contact made with patient: No - Left message Hello my name is Argenis Jewell RN your Flanging Roll Operator from the [facility] I am calling today for your bi-weekly check in. I am sorry I missed your call. I will reach out to you again tomorrow. (if the third call I will reach out to you again next week) Enter next patient outreach date for the following business day using the Track Pt Outreach. End outreach. documented in this encounterOhiohealth [facility]06-25-2022 History of Present illness Narrative* Albania Gordon RN - 02/17/2022 2:47 PM EDT TRANSITIONAL CARE MANAGEMENT (TCM) COMMUNITY MONITORING PROGRAM Provider Action/FYI: Patient needs nebulizer RX as her machine is broken- sent to PCP Reviewed all new medications- patient verbalized understanding PCP follow up needed- sent to scheduling No concerns at this time Instructed to call PCP with any changes in condition Need PCP follow up hospital discharge D/c 02/16 Eligible for TCM 03/02/22 Also needs annual exam with PCP SUMMARY: Pt discharged from [facility] on 02/16/22. Admitted for: COPD Contact made with patient: Yes Hi my name is Albania Gordon RN and I am calling from the [facility] on behalf of your PCP, Heladio Madsen MD I understand you were recently in the hospital so I am calling to check in withyou to ensure you are feeling well now that you're home. May I ask you a few questions related to your hospital stay and well-being? Yes Contact with patient post discharge, spoke to patient. Patient identified by name and . Do you feel your health is BETTER, WORSE, or the SAME since leaving the hospital? Better ACTION TAKEN: Patient indicated symptoms are better or same, no action required. Continue outreach. MEDICATIONS: Many patients have questions or concerns about their medications once they are home. Do you have any questions about taking your medications or which medication you should be on? No Do you need any medication refills at this time, including any of the medications you might take only when needed? Yes- requesting nebulizer ACTION TAKEN: No action required For RNs or Pharmacy completing outreach ONLY, was a medication review completed? Yes SOCIAL: We would like to make sure you have what you need so that your basics needs are met - including your personal safety, food, housing and medications. Would you like to speak with a social work restaurant team member to help give you support for any of these needs? No It can be normal to feel anxious or down during a time like this. Would you like to talk to a mental health professional about how you have been feeling? No ACTION TAKEN: No action taken DISCHARGE INTRUCTIONS: Your discharge instructions / After Visit Summary (AVS) are important in guiding you through the recovery process. Do you have any questions related to your discharge instructions? No Do you have all the necessary equipment and supplies at home? No ACTION TAKEN: No action required I would like to help you schedule a hospital follow-up virtual or telephone visit with your PCP. This is a great way for you to connect with your provider to ensure you have safely transitioned home.If you are agreeable, I will send your request to a inter com servicer who will contact and assist you with that appointment. This will give you an opportunity to ask any questions or address any concerns youmay have with your PCP. Inform the patient that if they have any questions or concerns prior to that appointment, to call their PCP's office right away. ACTION TAKEN: Patient desires an appointment - Routed to [facility] [[id number]] for schedulingtelehealth visit (telephonic, virtual visit, or Facetime) within 7 days of discharge with PCP care team. Indicate hospital follow-up appointment needed within 7 days in Provider/FYI box. End Outreach. Your doctor would like us to remind you of the recommendations regarding the coronavirus (Covid19) outbreak: Avoid public places as much as possible. Avoid close contact (within 6 feet) with others you don t live with, especially if they are sick. Stay home if you are sick. Wash your hands regularly for at least 20 seconds with soap and water. Wear a cloth mask in public places to help reduce community spread. Do not go to your Doctor s office unless instructed to do so. For any non- emergency symptoms, call your Doctor s office to get instructions on how to manage (we might recommend a telephone or virtualvisit). For emergency symptoms, proceed to Emergency Department as usual but inform them of cough and fever symptoms RAJIV if present (or call on the way if possible). TCM Home Visit Referral Source of Stratification: [facility] Hospital Admission Status: Discharged Readmission Risk Score: 26 ANN Score: 8 Program referral criteria met: Does not meet referral criteria Patient does not qualify for High Risk TCM Home Visit program due to: Does not meet referral criteria Patient does not quality for High Risk TCM Home Visit Program due to: Does not meet referral criteria Preferred contact number: na Is patient staying somewhere other than the listed home address: No Dialysis Patient: No documented in this encounterOhiohealth [facility]06-24-2022 Miscellaneous Notes* Telephone Encounter - Liset Lopez - 02/16/2022 2:27 PM EDT Patient still admitted, will call when discharged * Telephone Encounter - Alexandro Marques MD - 02/16/2022 2:12 PM EDT Patient being discharged today Please schedule her for follow-up with [facility] in the next couple of weeks Used to see at [facility] in the past documented in this encounterOhiohealth [facility] Center06-23-2022 NoteHNO ID: [id number] Author: Geoff Malone MD Service: Hospital Medicine Author Type: Physician Type: Progress Notes Filed: 02/15/2022 1:28 PM Note Text: DEPARTMENT OF HOSPITAL MEDICINE PROGRESS NOTE SERVICE DATE: 02/15/2022 SERVICE TIME: 1:20 PM Hospital Medicine/Primary Attending: Geoff Malone MD NIGHT AND WEEKEND COVERAGE: RAMSEY COVERAGE: Days: [phone], please page attending physician. Nights: [phone], please page [facility] Night coverage pager [phone]. Subjective INTERVAL HPI: Had increased shortness of breath with a coughing spell this morning [place] improved in the afternoon Continues to require 2 lt of oxygen Current Facility-Administered Medications Medication Dose Route Frequency - NaCl 0.9% iv flush bag 20 mL INTRAVENOUS PRN - sodium chloride 0.9 % (flush) 3-5 mL (BD POSIFLUSH) 3-5 mL INTRAVENOUS q 12 H - methylPREDNISolone sod succinate(PF) 40 mg injection (SOLU-Medrol) 40 mg INTRAVENOUS q 24 HR - ipratropium-albuterol 3 mL nebulizer solution (DUONEB) 3 mL INHALATION q 4 H while awake - acetaminophen 650 mg tab(s) (TYLENOL) 650 mg ORAL q 6 H PRN - enoxaparin 40 mg injection (LOVENOX) 40 mg SUBCUTANEOUS q 24 HR - atorvastatin 80 mg tab(s) (LIPITOR) 80 mg ORAL AT BEDTIME - losartan 50 mg tab(s) (COZAAR) 50 mg ORAL DAILY - rOPINIRole 2 mg tab(s) (REQUIP) 2 mg ORAL AT BEDTIME - fluticasone-vilanterol 100-25 mcg/dose 1 Inhalation (BREO ELLIPTA) 1 Inhalation INHALATION DAILY - furosemide 40 mg tab(s) (LASIX) 40 mg ORAL DAILY - clopidogrel 75 mg tab(s) (PLAVIX) 75 mg ORAL DAILY - aspirin 81 mg chewable tab(s) 81 mg ORAL DAILY - traZODone 100 mg tab(s) (DESYREL) 100 mg ORAL AT BEDTIME - cyclobenzaprine 10 mg tab(s) (FLEXERIL) 10 mg ORAL AT BEDTIME - tiotropium bromide 2.5 mcg/actuation 2 Puff (SPIRIVA RESPIMAT) 2 Puff INHALATION DAILY - insulin lispro 3 Units injection (rapid acting) (HumaLOG) 3 Units SUBCUTANEOUS w MEALS - dextrose 40 % 15 g 15 g ORAL PRN Or - glucagon 1 mg injection 1 mg INTRAMUSCULAR PRN Or - dextrose 10% iv bolus 12.5 g INTRAVENOUS PRN - insulin lispro injection (rapid acting) (HumaLOG) SUBCUTANEOUS w MEALS - albuterol 2.5 mg /3 mL (0.083 %) 2.5 mg (PROVENTIL) 2.5 mg INHALATION q 4 H PRN - pramipexole 1.5 mg tab(s) (MIRAPEX) 1.5 mg ORAL AT BEDTIME - guaiFENesin 600 mg ER tab(s) (MUCINEX) 600 mg ORAL q 12 H - benzonatate 100 mg cap(s) (TESSALON PERLE) 100 mg ORAL TID - insulin glargine 13 Units pen (long acting) (LANTUS SOLOSTAR, BASAGLAR KWIKPEN) 13 Units SUBCUTANEOUS AT BEDTIME Objective PHYSICAL EXAM: BP 131/72 Pulse 77 Temp (Src) 98.1 (Oral) Resp 18 Ht 5' 3 (1.60m) Wt 199 lb 4.7 oz (90.4kg) SpO2 98% BMI 35.31 kg/(m2). O2 Therapy: Nasal Cannula, Liters: 2.00, %FIO2: 2 Physical Exam Performed GENERAL: Alert, no distress, cooperative LUNGS:mild wheezing at bilateral bases CARDIAC: Normal S1 and S2; no rubs, murmurs, or gallops ABDOMEN: Abdomen soft, non-tender, BS normal, No masses or organomegaly EXTREMITIES: Extremities normal, no deformities, edema, clubbing or skin discoloration. Good capillary refill., No ulcers NEURO: Gait normal. Reflexes normal and symmetric. Sensation grossly intact, Cranial nerves II-XII intact PULSES: 2+ radial, 2+ carotid Lines, Drains, and Airways Line Peripheral 02/13/22 1846 Short Right Forearm 20 Gauge 1 day Reviewed lines and needs to be continued: REASONS: Telemetry DATA: Diagnostic tests reviewed for today's visit: Most recent labs Most recent imaging Assessment/Plan Problem List COPD exacerbation (HCC) POA: Yes COPD (chronic obstructive pulmonary disease) (HCC) POA: Yes Restless leg syndrome POA: Yes SHANA (obstructive sleep apnea) POA: Yes Pure hypercholesterolemia POA: Yes Lung cancer (HCC) POA: Yes CAD (coronary artery disease) POA: Yes Essential hypertension POA: Yes History of pulmonary embolus (PE) POA: . COPD with exacerbation (HCC) POA: . Centrilobular emphysema (HCC) POA: Yes Type 2 diabetes mellitus (HCC) POA: Yes Bilateral calf pain POA: . HOSPITAL COURSE: Tamiko Diamond is a 71 year old female presented with past medical history of PMHx of COPD, CAD s/p left circumflex artery stent placement in 07/2021, HTN, HLD, SHANA, hx of lung CA in 2013 and 2015, hx of PE, type 2 DM not currently on medication, restless leg syndrome who presents with increased shortness of breath for the past 3 days. She was found to be in a COPD exacerbation with clear chest x-ray, she is being treated with as needed albuterol, scheduled duo nebs and IV Solu-Medrol. Pulmonology has been consulted. Principal Problem: COPD exacerbation (HCC) COPD (chronic obstructive pulmonary disease) (HCC) Chronic hypoxic respiratory failure -On 2 L of oxygen at home -Continues to be on 2 L of oxygen -d dimer: 230 -COPD education provided -As needed albuterol, scheduled duo nebs -IV Solu-Medrol -consult pulmonology Restless l (more content not included)...[id number] NoteHNO ID: [id number] Author: Geoff Malone MD Service: Hospital Medicine Author Type: Physician Type: Progress Notes Filed: 02/14/2022 12:37 PM Note Text: DEPARTMENT OF HOSPITAL MEDICINE PROGRESS NOTE SERVICE DATE: 02/14/2022 SERVICE TIME: 12:29 PM Hospital Medicine/Primary Attending: Geoff Malone MD NIGHT AND WEEKEND COVERAGE: RAMSEY COVERAGE: : [phone], please page attending physician. Nights: [phone], please page [place] [facility] Night coverage pager [phone]. Subjective INTERVAL HPI: Continues to feel short of breath. On home oxygen of 2 L. Continues to have audible wheezing. Current Facility-Administered Medications Medication Dose Route Frequency - NaCl 0.9% iv flush bag 20 mL INTRAVENOUS PRN - sodium chloride 0.9 % (flush) 3-5 mL (BD POSIFLUSH) 3-5 mL INTRAVENOUS q 12 H - azithromycin 500 mg tab(s) (ZITHROMAX) 500 mg ORAL DAILY - methylPREDNISolone sod succinate(PF) 40 mg injection (SOLU-Medrol) 40 mg INTRAVENOUS q 24 HR - ipratropium-albuterol 3 mL nebulizer solution (DUONEB) 3 mL INHALATION q 4 H while awake - acetaminophen 650 mg tab(s) (TYLENOL) 650 mg ORAL q 6 H PRN - enoxaparin 40 mg injection (LOVENOX) 40 mg SUBCUTANEOUS q 24 HR - atorvastatin 80 mg tab(s) (LIPITOR) 80 mg ORAL AT BEDTIME - losartan 50 mg tab(s) (COZAAR) 50 mg ORAL DAILY - pramipexole (MIRAPEX) tab(s) 1.5 mg 1.5 mg ORAL AT BEDTIME - rOPINIRole 2 mg tab(s) (REQUIP) 2 mg ORAL AT BEDTIME - fluticasone-vilanterol 100-25 mcg/dose 1 Inhalation (BREO ELLIPTA) 1 Inhalation INHALATION DAILY - furosemide 40 mg tab(s) (LASIX) 40 mg ORAL DAILY - clopidogrel 75 mg tab(s) (PLAVIX) 75 mg ORAL DAILY - aspirin 81 mg chewable tab(s) 81 mg ORAL DAILY - traZODone 100 mg tab(s) (DESYREL) 100 mg ORAL AT BEDTIME - cyclobenzaprine 10 mg tab(s) (FLEXERIL) 10 mg ORAL AT BEDTIME - tiotropium bromide 2.5 mcg/actuation 2 Puff (SPIRIVA RESPIMAT) 2 Puff INHALATION DAILY - insulin glargine 10 Units pen (long acting) (LANTUS SOLOSTAR, BASAGLAR KWIKPEN) 10 Units SUBCUTANEOUS AT BEDTIME - insulin lispro 3 Units injection (rapid acting) (HumaLOG) 3 Units SUBCUTANEOUS w MEALS - dextrose 40 % 15 g 15 g ORAL PRN Or - glucagon 1 mg injection 1 mg INTRAMUSCULAR PRN Or - dextrose 10% iv bolus 12.5 g INTRAVENOUS PRN - insulin lispro injection (rapid acting) (HumaLOG) SUBCUTANEOUS w MEALS - albuterol 2.5 mg /3 mL (0.083 %) 2.5 mg (PROVENTIL) 2.5 mg INHALATION q 4 H PRN Objective PHYSICAL EXAM: BP 118/98 Pulse 88 Temp (Src) 97.9 (Oral) Resp 18 Ht 5' 3 (1.60m) Wt 199 lb 4.7 oz (90.4kg) SpO2 97% BMI 35.31 kg/(m2). O2 Therapy: Nasal Cannula, Liters: 2.00 Physical Exam Performed GENERAL: Alert, no distress, cooperative LUNGS: Positive findings: wheezing CARDIAC: Normal S1 and S2; no rubs, murmurs, or gallops ABDOMEN: Abdomen soft, non-tender, BS normal, No masses or organomegaly EXTREMITIES: Extremities normal, no deformities, edema, clubbing or skin discoloration. Good capillary refill., No ulcers NEURO: Gait normal. Reflexes normal and symmetric. Sensation grossly intact, Cranial nerves II-XII intact PULSES: 2+ radial, 2+ carotid Lines, Drains, and Airways Line Peripheral 02/13/22 1846 Short Right Forearm 20 Gauge <1 day Reviewed lines and needs to be continued: REASONS: Telemetry DATA: Diagnostic tests reviewed for today's visit: Most recent labs Most recent imaging Assessment/Plan Problem List COPD exacerbation (HCC) POA: Yes COPD (chronic obstructive pulmonary disease) (HCC) POA: Yes Restless leg syndrome POA: Yes SHANA (obstructive sleep apnea) POA: Yes Pure hypercholesterolemia POA: Yes Lung cancer (HCC) POA: Yes CAD (coronary artery disease) POA: Yes Essential hypertension POA: Yes History of pulmonary embolus (PE) POA: . COPD with exacerbation (HCC) POA: . Centrilobular emphysema (HCC) POA: Yes Type 2 diabetes mellitus (HCC) POA: Yes Bilateral calf pain POA: . HOSPITAL COURSE: Tamiko Diamond is a 71 year old female presented with past medical history of PMHx of COPD, CAD s/p left circumflex artery stent placement in 07/2021, HTN, HLD, SHANA, hx of lung CA in 2013 and 2015, hx of PE, type 2 DM not currently on medication, restless leg syndrome who presents with increased shortness of breath for the past 3 days. She was found to be in a COPD exacerbation with clear chest x-ray, she is being treated with as needed albuterol, scheduled duo nebs and IV Solu-Medrol. Pulmonology has been consulted. Principal Problem: COPD exacerbation (HCC) COPD (chronic obstructive pulmonary disease) (HCC) Chronic hypoxic respiratory failure -On 2 L of oxygen at home -Continues to be on 2 L of oxygen -Audible wheezing on exam -Says she was not using her as needed albuterol at home -COPD education provided -As needed albuterol, scheduled duo nebs -IV Solu-Medrol -consult pulmonology Restless leg syndrome -Continue home meds SHANA (obstru (more content not included)...[id number] Miscellaneous Notes* Telephone Encounter - Sasha Byrne PA-C - 02/13/2022 5:02 PM EDT I agree. Terrance Byrne PA-C * Telephone Encounter - Xin Cardoza LPN - 02/13/2022 3:15 PM EDT Daughter calling, Tamiko's pulse ox is running 80-82, she is extremely fatigued, not able to stay awake, short of breath with any talking, feels that her heart is beating really fast, pulse is 95. Advised Patient needs to go to ER. Daughter is going to take her to [facility]. Xin Cardoza LPN [facility] History of Past illness Narrative* Problem Noted Date Resolved Date COPD exacerbation 02/13/2022 07/04/2022 EKG abnormality 07/14/2021 07/17/2021 EKG abnormalities 03/22/2021 03/25/2021 Overview: EK03/20/[address]-T changes with some terminal T wave inversions V1 through V4 not present on EKG 01/12/2021 On apixaban therapy 03/21/2021 08/01/2021 Overview: For prior pulmonary embolus Shortness of breath 12/15/2020 03/21/2021 Nausea and vomiting 12/15/2020 03/21/2021 Generalized weakness 12/15/2020 03/21/2021 Abnormal urinalysis 12/15/2020 03/21/2021 Acute deep vein thrombosis ( DVT) of distal vein of left lower extremity 10/26/2020 03/21/2021 Change in bowel habit 07/08/2019 03/21/2021 Prediabetes 05/13/2019 03/21/2021 Type 2 diabetes mellitus without retinopathy 01/201903/21/2021 DM (diabetes mellitus) 01/02/2017 Last Assessment & Plan: Assessment: on oral agent, last A1c 6.1 02/2019 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 No signs or symptoms of DVT/PE. The patient is at high risk for VTE. Plan: - Continue Lovenox 40mg daily SC. - SCD/KAIA - Encourage continued ambulation . DISPOSITION AND FOLLOW-UP 10/23/20132013 Overview: Patient is and lives in [place], [place]. At this time, we anticipate that the patient will be discharged home once clinically stable. Plan: - Discuss needs with patient. - Collaborate with Case management to facilitate DC process - Will likely need home oxygen. Desat study ordered. . Tobacco abuse 10/23/2013 11/12/2013 Overview: Active smoker of 75 pack years. Benefits of smoking cessation discussed and patient states she is actively trying to quit (down to less than a pack per day from 1.5 pack per day). Continued to reinforce need to stop smoking. Is being discharged on home oxygen. Plan -Continue to encourage smoking cessation. -Start nicotine patch . Acute postoperative pain 10/23/2013 014 Overview: Patient states adequate pain control with Vicodin, oxycodone, and Motrin added in an attempt to transition to all oral pain regimen. Plan -Patient will be discharged on Oxycodone and home dosing of Naprosyn -Monitor pain, reassess to keep at pain level 4 or below. . Atelectasis 10/23/2013 10/24/2013 Overview: S/P right VATS upper lobectomy 10/23/13. Wearing 2 L/min oxygen, 95% pulse ox. CXR shows bilateral atelectasis. PLAN: -Bronchopulmonary hygiene, cough, deep breathe, acapella use, frequent ambulation. . Rt VATS Wedge, then RULobectomy 10/20/2013 10/14/2015 Overview: Patient is an active smoker of 75 pack years, presented with a 1.4 cm spiculated, cavitary lesion in the right upper lung. PET scan showed increased uptake in the lesion with an SUV 5.5 and no evidence of hilar, mediastinal or extrathoracic disease. On 10/22/13, Dr. Calvert performed right VATS, right upper lobectomy, and lymphadenectomy (R2, R4, 7). Plan:: -Pain management -Out of bed, frequent ambulation -cough/deep breathe, acapella -regular diet -respiratory therapy- Desat study for home oxygen . Pain in joint, lower leg 05/01/2013 014 Tear of meniscus of left knee 02/16/2013 Fatigue 12/01/2012 11/12/2013 Snoring 12/01/2012 11/12/2013 Hyperglycemia 05/28/2012 01/02/2017 Mastalgia 09/04/2011 11/12/2013 CHRONIC AIRWAY OBSTRUCTION NEC 0 10/14/2015 Unspecified asthma(493.90) 11/21 Osteoporosis, unspecified 2020 History of lung cancer 6 Overview: squamous cell documented as of this encounter (statuses as of 07/04/2022) [facility] History of Past illness Narrative* Problem Noted Date Resolved Date COPD exacerbation 02/13/2022 07/04/2022 EKG abnormality 07/14/2021 07/17/2021 EKG abnormalities 03/22/2021 03/25/2021 Overview: EK03/20/[address]-T changes with some terminal T wave inversions V1 through V4 not present on EKG 01/12/2021 On apixaban therapy 03/21/2021 08/01/2021 Overview: For prior pulmonary embolus Shortness of breath 12/15/2020 03/21/2021 Nausea and vomiting 12/15/2020 03/21/2021 Generalized weakness 12/15/2020 03/21/2021 Abnormal urinalysis 12/15/2020 03/21/2021 Acute deep vein thrombosis ( DVT) of distal vein of left lower extremity 10/26/2020 03/21/2021 Change in bowel habit 07/08/2019 03/21/2021 Prediabetes 05/13/2019 03/21/2021 Type 2 diabetes mellitus without retinopathy 01/201903/21/2021 DM (diabetes mellitus) 01/02/2017 Last Assessment & Plan: Assessment: on oral agent, last A1c 6.1 02/2019 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 No signs or symptoms of DVT/PE. The patient is at high risk for VTE. Plan: - Continue Lovenox 40mg daily SC. - SCD/KAIA - Encourage continued ambulation . DISPOSITION AND FOLLOW-UP 10/23/20132013 Overview: Patient is and lives in [place], [place]. At this time, we anticipate that the patient will be discharged home once clinically stable. Plan: - Discuss needs with patient. - Collaborate with Case management to facilitate DC process - Will likely need home oxygen. Desat study ordered. . Tobacco abuse 10/23/2013 11/12/2013 Overview: Active smoker of 75 pack years. Benefits of smoking cessation discussed and patient states she is actively trying to quit (down to less than a pack per day from 1.5 pack per day). Continued to reinforce need to stop smoking. Is being discharged on home oxygen. Plan -Continue to encourage smoking cessation. -Start nicotine patch . Acute postoperative pain 10/23/2013 014 Overview: Patient states adequate pain control with Vicodin, oxycodone, and Motrin added in an attempt to transition to all oral pain regimen. Plan -Patient will be discharged on Oxycodone and home dosing of Naprosyn -Monitor pain, reassess to keep at pain level 4 or below. . Atelectasis 10/23/2013 10/24/2013 Overview: S/P right VATS upper lobectomy 10/23/13. Wearing 2 L/min oxygen, 95% pulse ox. CXR shows bilateral atelectasis. PLAN: -Bronchopulmonary hygiene, cough, deep breathe, acapella use, frequent ambulation. . Rt VATS Wedge, then RULobectomy 10/20/2013 10/14/2015 Overview: Patient is an active smoker of 75 pack years, presented with a 1.4 cm spiculated, cavitary lesion in the right upper lung. PET scan showed increased uptake in the lesion with an SUV 5.5 and no evidence of hilar, mediastinal or extrathoracic disease. On 10/22/13, Dr. Calvert performed right VATS, right upper lobectomy, and lymphadenectomy (R2, R4, 7). Plan:: -Pain management -Out of bed, frequent ambulation -cough/deep breathe, acapella -regular diet -respiratory therapy- Desat study for home oxygen . Pain in joint, lower leg 05/01/2013 014 Tear of meniscus of left knee 02/16/2013 Fatigue 12/01/2012 11/12/2013 Snoring 12/01/2012 11/12/2013 Hyperglycemia 05/28/2012 01/02/2017 Mastalgia 09/04/2011 11/12/2013 CHRONIC AIRWAY OBSTRUCTION NEC 0 10/14/2015 Unspecified asthma(493.90) 11/21 Osteoporosis, unspecified 2020 History of lung cancer 6 Overview: squamous cell documented as of this encounter (statuses as of 07/05/2022) [facility] of Past illness Narrative* Problem Noted Date Resolved Date COPD exacerbation 02/13/2022 07/04/2022 EKG abnormality 07/14/2021 07/17/2021 EKG abnormalities 03/22/2021 03/25/2021 Overview: EK03/20/[address]-T changes with some terminal T wave inversions V1 through V4 not present on EKG 01/12/2021 On apixaban therapy 03/21/2021 08/01/2021 Overview: For prior pulmonary embolus Shortness of breath 12/15/2020 03/21/2021 Nausea and vomiting 12/15/2020 03/21/2021 Generalized weakness 12/15/2020 03/21/2021 Abnormal urinalysis 12/15/2020 03/21/2021 Acute deep vein thrombosis ( DVT) of distal vein of left lower extremity 10/26/2020 03/21/2021 Change in bowel habit 07/08/2019 03/21/2021 Prediabetes 05/13/2019 03/21/2021 Type 2 diabetes mellitus without retinopathy 01/201903/21/2021 DM (diabetes mellitus) 01/02/2017 Last Assessment & Plan: Assessment: on oral agent, last A1c 6.1 02/2019 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 No signs or symptoms of DVT/PE. The patient is at high risk for VTE. Plan: - Continue Lovenox 40mg daily SC. - SCD/KAIA - Encourage continued ambulation . DISPOSITION AND FOLLOW-UP 10/23/20132013 Overview: Patient is and lives in [place], [place]. At this time, we anticipate that the patient will be discharged home once clinically stable. Plan: - Discuss needs with patient. - Collaborate with Case management to facilitate DC process - Will likely need home oxygen. Desat study ordered. . Tobacco abuse 10/23/2013 11/12/2013 Overview: Active smoker of 75 pack years. Benefits of smoking cessation discussed and patient states she is actively trying to quit (down to less than a pack per day from 1.5 pack per day). Continued to reinforce need to stop smoking. Is being discharged on home oxygen. Plan -Continue to encourage smoking cessation. -Start nicotine patch . Acute postoperative pain 10/23/2013 014 Overview: Patient states adequate pain control with Vicodin, oxycodone, and Motrin added in an attempt to transition to all oral pain regimen. Plan -Patient will be discharged on Oxycodone and home dosing of Naprosyn -Monitor pain, reassess to keep at pain level 4 or below. . Atelectasis 10/23/2013 10/24/2013 Overview: S/P right VATS upper lobectomy 10/23/13. Wearing 2 L/min oxygen, 95% pulse ox. CXR shows bilateral atelectasis. PLAN: -Bronchopulmonary hygiene, cough, deep breathe, acapella use, frequent ambulation. . Rt VATS Wedge, then RULobectomy 10/20/2013 10/14/2015 Overview: Patient is an active smoker of 75 pack years, presented with a 1.4 cm spiculated, cavitary lesion in the right upper lung. PET scan showed increased uptake in the lesion with an SUV 5.5 and no evidence of hilar, mediastinal or extrathoracic disease. On 10/22/13, Dr. Calvert performed right VATS, right upper lobectomy, and lymphadenectomy (R2, R4, 7). Plan:: -Pain management -Out of bed, frequent ambulation -cough/deep breathe, acapella -regular diet -respiratory therapy- Desat study for home oxygen . Pain in joint, lower leg 05/01/2013 014 Tear of meniscus of left knee 02/16/2013 Fatigue 12/01/2012 11/12/2013 Snoring 12/01/2012 11/12/2013 Hyperglycemia 05/28/2012 01/02/2017 Mastalgia 09/04/2011 11/12/2013 CHRONIC AIRWAY OBSTRUCTION NEC 0 10/14/2015 Unspecified asthma(493.90) 11/21 Osteoporosis, unspecified 2020 History of lung cancer 6 Overview: squamous cell documented as of this encounter (statuses as of 07/06/2022) [facility] of Past illness Narrative* Problem Noted Date Resolved Date COPD exacerbation 02/13/2022 07/04/2022 EKG abnormality 07/14/2021 07/17/2021 EKG abnormalities 03/22/2021 03/25/2021 Overview: EK03/20/[address]-T changes with some terminal T wave inversions V1 through V4 not present on EKG 01/12/2021 On apixaban therapy 03/21/2021 08/01/2021 Overview: For prior pulmonary embolus Shortness of breath 12/15/2020 03/21/2021 Nausea and vomiting 12/15/2020 03/21/2021 Generalized weakness 12/15/2020 03/21/2021 Abnormal urinalysis 12/15/2020 03/21/2021 Acute deep vein thrombosis ( DVT) of distal vein of left lower extremity 10/26/2020 03/21/2021 Change in bowel habit 07/08/2019 03/21/2021 Prediabetes 05/13/2019 03/21/2021 Type 2 diabetes mellitus without retinopathy 01/201903/21/2021 DM (diabetes mellitus) 01/02/2017 Last Assessment & Plan: Assessment: on oral agent, last A1c 6.1 02/2019 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 No signs or symptoms of DVT/PE. The patient is at high risk for VTE. Plan: - Continue Lovenox 40mg daily SC. - SCD/KAIA - Encourage continued ambulation . DISPOSITION AND FOLLOW-UP 10/23/20132013 Overview: Patient is and lives in [place], [place]. At this time, we anticipate that the patient will be discharged home once clinically stable. Plan: - Discuss needs with patient. - Collaborate with Case management to facilitate DC process - Will likely need home oxygen. Desat study ordered. . Tobacco abuse 10/23/2013 11/12/2013 Overview: Active smoker of 75 pack years. Benefits of smoking cessation discussed and patient states she is actively trying to quit (down to less than a pack per day from 1.5 pack per day). Continued to reinforce need to stop smoking. Is being discharged on home oxygen. Plan -Continue to encourage smoking cessation. -Start nicotine patch . Acute postoperative pain 10/23/2013 014 Overview: Patient states adequate pain control with Vicodin, oxycodone, and Motrin added in an attempt to transition to all oral pain regimen. Plan -Patient will be discharged on Oxycodone and home dosing of Naprosyn -Monitor pain, reassess to keep at pain level 4 or below. . Atelectasis 10/23/2013 10/24/2013 Overview: S/P right VATS upper lobectomy 10/23/13. Wearing 2 L/min oxygen, 95% pulse ox. CXR shows bilateral atelectasis. PLAN: -Bronchopulmonary hygiene, cough, deep breathe, acapella use, frequent ambulation. . Rt VATS Wedge, then RULobectomy 10/20/2013 10/14/2015 Overview: Patient is an active smoker of 75 pack years, presented with a 1.4 cm spiculated, cavitary lesion in the right upper lung. PET scan showed increased uptake in the lesion with an SUV 5.5 and no evidence of hilar, mediastinal or extrathoracic disease. On 10/22/13, Dr. Calvert performed right VATS, right upper lobectomy, and lymphadenectomy (R2, R4, 7). Plan:: -Pain management -Out of bed, frequent ambulation -cough/deep breathe, acapella -regular diet -respiratory therapy- Desat study for home oxygen . Pain in joint, lower leg 05/01/2013 014 Tear of meniscus of left knee 02/16/2013 Fatigue 12/01/2012 11/12/2013 Snoring 12/01/2012 11/12/2013 Hyperglycemia 05/28/2012 01/02/2017 Mastalgia 09/04/2011 11/12/2013 CHRONIC AIRWAY OBSTRUCTION NEC 0 10/14/2015 Unspecified asthma(493.90) 11/21 Osteoporosis, unspecified 2020 History of lung cancer 6 Overview: squamous cell documented as of this encounter (statuses as of 07/06/2022) [facility] of Past illness Narrative* Problem Noted Date Resolved Date COPD exacerbation 02/13/2022 07/04/2022 EKG abnormality 07/14/2021 07/17/2021 EKG abnormalities 03/22/2021 03/25/2021 Overview: EK03/20/[address]-T changes with some terminal T wave inversions V1 through V4 not present on EKG 01/12/2021 On apixaban therapy 03/21/2021 08/01/2021 Overview: For prior pulmonary embolus Shortness of breath 12/15/2020 03/21/2021 Nausea and vomiting 12/15/2020 03/21/2021 Generalized weakness 12/15/2020 03/21/2021 Abnormal urinalysis 12/15/2020 03/21/2021 Acute deep vein thrombosis ( DVT) of distal vein of left lower extremity 10/26/2020 03/21/2021 Change in bowel habit 07/08/2019 03/21/2021 Prediabetes 05/13/2019 03/21/2021 Type 2 diabetes mellitus without retinopathy 01/201903/21/2021 DM (diabetes mellitus) 01/02/2017 Last Assessment & Plan: Assessment: on oral agent, last A1c 6.1 02/2019 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 No signs or symptoms of DVT/PE. The patient is at high risk for VTE. Plan: - Continue Lovenox 40mg daily SC. - SCD/KAIA - Encourage continued ambulation . DISPOSITION AND FOLLOW-UP 10/23/20132013 Overview: Patient is and lives in [place], [place]. At this time, we anticipate that the patient will be discharged home once clinically stable. Plan: - Discuss needs with patient. - Collaborate with Case management to facilitate DC process - Will likely need home oxygen. Desat study ordered. . Tobacco abuse 10/23/2013 11/12/2013 Overview: Active smoker of 75 pack years. Benefits of smoking cessation discussed and patient states she is actively trying to quit (down to less than a pack per day from 1.5 pack per day). Continued to reinforce need to stop smoking. Is being discharged on home oxygen. Plan -Continue to encourage smoking cessation. -Start nicotine patch . Acute postoperative pain 10/23/2013 014 Overview: Patient states adequate pain control with Vicodin, oxycodone, and Motrin added in an attempt to transition to all oral pain regimen. Plan -Patient will be discharged on Oxycodone and home dosing of Naprosyn -Monitor pain, reassess to keep at pain level 4 or below. . Atelectasis 10/23/2013 10/24/2013 Overview: S/P right VATS upper lobectomy 10/23/13. Wearing 2 L/min oxygen, 95% pulse ox. CXR shows bilateral atelectasis. PLAN: -Bronchopulmonary hygiene, cough, deep breathe, acapella use, frequent ambulation. . Rt VATS Wedge, then RULobectomy 10/20/2013 10/14/2015 Overview: Patient is an active smoker of 75 pack years, presented with a 1.4 cm spiculated, cavitary lesion in the right upper lung. PET scan showed increased uptake in the lesion with an SUV 5.5 and no evidence of hilar, mediastinal or extrathoracic disease. On 10/22/13, Dr. Calvert performed right VATS, right upper lobectomy, and lymphadenectomy (R2, R4, 7). Plan:: -Pain management -Out of bed, frequent ambulation -cough/deep breathe, acapella -regular diet -respiratory therapy- Desat study for home oxygen . Pain in joint, lower leg 05/01/2013 014 Tear of meniscus of left knee 02/16/2013 Fatigue 12/01/2012 11/12/2013 Snoring 12/01/2012 11/12/2013 Hyperglycemia 05/28/2012 01/02/2017 Mastalgia 09/04/2011 11/12/2013 CHRONIC AIRWAY OBSTRUCTION NEC 0 10/14/2015 Unspecified asthma(493.90) 11/21 Osteoporosis, unspecified 2020 History of lung cancer 6 Overview: squamous cell documented as of this encounter (statuses as of 07/12/2022) [facility] History of Past illness Narrative* Problem Noted Date Resolved Date COPD exacerbation 02/13/2022 07/04/2022 EKG abnormality 07/14/2021 07/17/2021 EKG abnormalities 03/22/2021 03/25/2021 Overview: EK03/20/[address]-T changes with some terminal T wave inversions V1 through V4 not present on EKG 01/12/2021 On apixaban therapy 03/21/2021 08/01/2021 Overview: For prior pulmonary embolus Shortness of breath 12/15/2020 03/21/2021 Nausea and vomiting 12/15/2020 03/21/2021 Generalized weakness 12/15/2020 03/21/2021 Abnormal urinalysis 12/15/2020 03/21/2021 Acute deep vein thrombosis ( DVT) of distal vein of left lower extremity 10/26/2020 03/21/2021 Change in bowel habit 07/08/2019 03/21/2021 Prediabetes 05/13/2019 03/21/2021 Type 2 diabetes mellitus without retinopathy 01/201903/21/2021 DM (diabetes mellitus) 01/02/2017 Last Assessment & Plan: Assessment: on oral agent, last A1c 6.1 02/2019 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 No signs or symptoms of DVT/PE. The patient is at high risk for VTE. Plan: - Continue Lovenox 40mg daily SC. - SCD/KAIA - Encourage continued ambulation . DISPOSITION AND FOLLOW-UP 10/23/20132013 Overview: Patient is and lives in [place], [place]. At this time, we anticipate that the patient will be discharged home once clinically stable. Plan: - Discuss needs with patient. - Collaborate with Case management to facilitate DC process - Will likely need home oxygen. Desat study ordered. . Tobacco abuse 10/23/2013 11/12/2013 Overview: Active smoker of 75 pack years. Benefits of smoking cessation discussed and patient states she is actively trying to quit (down to less than a pack per day from 1.5 pack per day). Continued to reinforce need to stop smoking. Is being discharged on home oxygen. Plan -Continue to encourage smoking cessation. -Start nicotine patch . Acute postoperative pain 10/23/2013 014 Overview: Patient states adequate pain control with Vicodin, oxycodone, and Motrin added in an attempt to transition to all oral pain regimen. Plan -Patient will be discharged on Oxycodone and home dosing of Naprosyn -Monitor pain, reassess to keep at pain level 4 or below. . Atelectasis 10/23/2013 10/24/2013 Overview: S/P right VATS upper lobectomy 10/23/13. Wearing 2 L/min oxygen, 95% pulse ox. CXR shows bilateral atelectasis. PLAN: -Bronchopulmonary hygiene, cough, deep breathe, acapella use, frequent ambulation. . Rt VATS Wedge, then RULobectomy 10/20/2013 10/14/2015 Overview: Patient is an active smoker of 75 pack years, presented with a 1.4 cm spiculated, cavitary lesion in the right upper lung. PET scan showed increased uptake in the lesion with an SUV 5.5 and no evidence of hilar, mediastinal or extrathoracic disease. On 10/22/13, Dr. Calvert performed right VATS, right upper lobectomy, and lymphadenectomy (R2, R4, 7). Plan:: -Pain management -Out of bed, frequent ambulation -cough/deep breathe, acapella -regular diet -respiratory therapy- Desat study for home oxygen . Pain in joint, lower leg 05/01/2013 014 Tear of meniscus of left knee 02/16/2013 Fatigue 12/01/2012 11/12/2013 Snoring 12/01/2012 11/12/2013 Hyperglycemia 05/28/2012 01/02/2017 Mastalgia 09/04/2011 11/12/2013 CHRONIC AIRWAY OBSTRUCTION NEC 0 10/14/2015 Unspecified asthma(493.90) 11/21 Osteoporosis, unspecified 2020 History of lung cancer 6 Overview: squamous cell documented as of this encounter (statuses as of 07/13/2022) [facility] History of Past illness Narrative* Problem Noted Date Resolved Date COPD exacerbation 02/13/2022 07/04/2022 EKG abnormality 07/14/2021 07/17/2021 EKG abnormalities 03/22/2021 03/25/2021 Overview: EK03/20/[address]-T changes with some terminal T wave inversions V1 through V4 not present on EKG 01/12/2021 On apixaban therapy 03/21/2021 08/01/2021 Overview: For prior pulmonary embolus Shortness of breath 12/15/2020 03/21/2021 Nausea and vomiting 12/15/2020 03/21/2021 Generalized weakness 12/15/2020 03/21/2021 Abnormal urinalysis 12/15/2020 03/21/2021 Acute deep vein thrombosis ( DVT) of distal vein of left lower extremity 10/26/2020 03/21/2021 Change in bowel habit 07/08/2019 03/21/2021 Prediabetes 05/13/2019 03/21/2021 Type 2 diabetes mellitus without retinopathy 01/201903/21/2021 DM (diabetes mellitus) 01/02/2017 Last Assessment & Plan: Assessment: on oral agent, last A1c 6.1 02/2019 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 No signs or symptoms of DVT/PE. The patient is at high risk for VTE. Plan: - Continue Lovenox 40mg daily SC. - SCD/KAIA - Encourage continued ambulation . DISPOSITION AND FOLLOW-UP 10/23/20132013 Overview: Patient is and lives in [place], [place]. At this time, we anticipate that the patient will be discharged home once clinically stable. Plan: - Discuss needs with patient. - Collaborate with Case management to facilitate DC process - Will likely need home oxygen. Desat study ordered. . Tobacco abuse 10/23/2013 11/12/2013 Overview: Active smoker of 75 pack years. Benefits of smoking cessation discussed and patient states she is actively trying to quit (down to less than a pack per day from 1.5 pack per day). Continued to reinforce need to stop smoking. Is being discharged on home oxygen. Plan -Continue to encourage smoking cessation. -Start nicotine patch . Acute postoperative pain 10/23/2013 014 Overview: Patient states adequate pain control with Vicodin, oxycodone, and Motrin added in an attempt to transition to all oral pain regimen. Plan -Patient will be discharged on Oxycodone and home dosing of Naprosyn -Monitor pain, reassess to keep at pain level 4 or below. . Atelectasis 10/23/2013 10/24/2013 Overview: S/P right VATS upper lobectomy 10/23/13. Wearing 2 L/min oxygen, 95% pulse ox. CXR shows bilateral atelectasis. PLAN: -Bronchopulmonary hygiene, cough, deep breathe, acapella use, frequent ambulation. . Rt VATS Wedge, then RULobectomy 10/20/2013 10/14/2015 Overview: Patient is an active smoker of 75 pack years, presented with a 1.4 cm spiculated, cavitary lesion in the right upper lung. PET scan showed increased uptake in the lesion with an SUV 5.5 and no evidence of hilar, mediastinal or extrathoracic disease. On 10/22/13, Dr. Calvert performed right VATS, right upper lobectomy, and lymphadenectomy (R2, R4, 7). Plan:: -Pain management -Out of bed, frequent ambulation -cough/deep breathe, acapella -regular diet -respiratory therapy- Desat study for home oxygen . Pain in joint, lower leg 05/01/2013 014 Tear of meniscus of left knee 02/16/2013 Fatigue 12/01/2012 11/12/2013 Snoring 12/01/2012 11/12/2013 Hyperglycemia 05/28/2012 01/02/2017 Mastalgia 09/04/2011 11/12/2013 CHRONIC AIRWAY OBSTRUCTION NEC 0 10/14/2015 Unspecified asthma(493.90) 11/21 Osteoporosis, unspecified 2020 History of lung cancer 6 Overview: squamous cell documented as of this encounter (statuses as of 07/18/2022) [facility] History of Past illness Narrative* Problem Noted Date Resolved Date COPD exacerbation 02/13/2022 07/04/2022 EKG abnormality 07/14/2021 07/17/2021 EKG abnormalities 03/22/2021 03/25/2021 Overview: EK03/20/[address]-T changes with some terminal T wave inversions V1 through V4 not present on EKG 01/12/2021 On apixaban therapy 03/21/2021 08/01/2021 Overview: For prior pulmonary embolus Shortness of breath 12/15/2020 03/21/2021 Nausea and vomiting 12/15/2020 03/21/2021 Generalized weakness 12/15/2020 03/21/2021 Abnormal urinalysis 12/15/2020 03/21/2021 Acute deep vein thrombosis ( DVT) of distal vein of left lower extremity 10/26/2020 03/21/2021 Change in bowel habit 07/08/2019 03/21/2021 Prediabetes 05/13/2019 03/21/2021 Type 2 diabetes mellitus without retinopathy 01/201903/21/2021 DM (diabetes mellitus) 01/02/2017 Last Assessment & Plan: Assessment: on oral agent, last A1c 6.1 02/2019 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 No signs or symptoms of DVT/PE. The patient is at high risk for VTE. Plan: - Continue Lovenox 40mg daily SC. - SCD/KAIA - Encourage continued ambulation . DISPOSITION AND FOLLOW-UP 10/23/20132013 Overview: Patient is and lives in [place], [place]. At this time, we anticipate that the patient will be discharged home once clinically stable. Plan: - Discuss needs with patient. - Collaborate with Case management to facilitate DC process - Will likely need home oxygen. Desat study ordered. . Tobacco abuse 10/23/2013 11/12/2013 Overview: Active smoker of 75 pack years. Benefits of smoking cessation discussed and patient states she is actively trying to quit (down to less than a pack per day from 1.5 pack per day). Continued to reinforce need to stop smoking. Is being discharged on home oxygen. Plan -Continue to encourage smoking cessation. -Start nicotine patch . Acute postoperative pain 10/23/2013 014 Overview: Patient states adequate pain control with Vicodin, oxycodone, and Motrin added in an attempt to transition to all oral pain regimen. Plan -Patient will be discharged on Oxycodone and home dosing of Naprosyn -Monitor pain, reassess to keep at pain level 4 or below. . Atelectasis 10/23/2013 10/24/2013 Overview: S/P right VATS upper lobectomy 10/23/13. Wearing 2 L/min oxygen, 95% pulse ox. CXR shows bilateral atelectasis. PLAN: -Bronchopulmonary hygiene, cough, deep breathe, acapella use, frequent ambulation. . Rt VATS Wedge, then RULobectomy 10/20/2013 10/14/2015 Overview: Patient is an active smoker of 75 pack years, presented with a 1.4 cm spiculated, cavitary lesion in the right upper lung. PET scan showed increased uptake in the lesion with an SUV 5.5 and no evidence of hilar, mediastinal or extrathoracic disease. On 10/22/13, Dr. Calvert performed right VATS, right upper lobectomy, and lymphadenectomy (R2, R4, 7). Plan:: -Pain management -Out of bed, frequent ambulation -cough/deep breathe, acapella -regular diet -respiratory therapy- Desat study for home oxygen . Pain in joint, lower leg 05/01/2013 014 Tear of meniscus of left knee 02/16/2013 Fatigue 12/01/2012 11/12/2013 Snoring 12/01/2012 11/12/2013 Hyperglycemia 05/28/2012 01/02/2017 Mastalgia 09/04/2011 11/12/2013 CHRONIC AIRWAY OBSTRUCTION NEC 0 10/14/2015 Unspecified asthma(493.90) 11/21 Osteoporosis, unspecified 2020 History of lung cancer 6 Overview: squamous cell documented as of this encounter (statuses as of 07/25/2022) [facility] History of Past illness Narrative* Problem Noted Date Resolved Date COPD exacerbation 02/13/2022 07/04/2022 EKG abnormality 07/14/2021 07/17/2021 EKG abnormalities 03/22/2021 03/25/2021 Overview: EK03/20/[address]-T changes with some terminal T wave inversions V1 through V4 not present on EKG 01/12/2021 On apixaban therapy 03/21/2021 08/01/2021 Overview: For prior pulmonary embolus Shortness of breath 12/15/2020 03/21/2021 Nausea and vomiting 12/15/2020 03/21/2021 Generalized weakness 12/15/2020 03/21/2021 Abnormal urinalysis 12/15/2020 03/21/2021 Acute deep vein thrombosis ( DVT) of distal vein of left lower extremity 10/26/2020 03/21/2021 Change in bowel habit 07/08/2019 03/21/2021 Prediabetes 05/13/2019 03/21/2021 Type 2 diabetes mellitus without retinopathy 01/201903/21/2021 DM (diabetes mellitus) 01/02/2017 Last Assessment & Plan: Assessment: on oral agent, last A1c 6.1 02/2019 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 No signs or symptoms of DVT/PE. The patient is at high risk for VTE. Plan: - Continue Lovenox 40mg daily SC. - SCD/KAIA - Encourage continued ambulation . DISPOSITION AND FOLLOW-UP 10/23/20132013 Overview: Patient is and lives in [place], [place]. At this time, we anticipate that the patient will be discharged home once clinically stable. Plan: - Discuss needs with patient. - Collaborate with Case management to facilitate DC process - Will likely need home oxygen. Desat study ordered. . Tobacco abuse 10/23/2013 11/12/2013 Overview: Active smoker of 75 pack years. Benefits of smoking cessation discussed and patient states she is actively trying to quit (down to less than a pack per day from 1.5 pack per day). Continued to reinforce need to stop smoking. Is being discharged on home oxygen. Plan -Continue to encourage smoking cessation. -Start nicotine patch . Acute postoperative pain 10/23/2013 014 Overview: Patient states adequate pain control with Vicodin, oxycodone, and Motrin added in an attempt to transition to all oral pain regimen. Plan -Patient will be discharged on Oxycodone and home dosing of Naprosyn -Monitor pain, reassess to keep at pain level 4 or below. . Atelectasis 10/23/2013 10/24/2013 Overview: S/P right VATS upper lobectomy 10/23/13. Wearing 2 L/min oxygen, 95% pulse ox. CXR shows bilateral atelectasis. PLAN: -Bronchopulmonary hygiene, cough, deep breathe, acapella use, frequent ambulation. . Rt VATS Wedge, then RULobectomy 10/20/2013 10/14/2015 Overview: Patient is an active smoker of 75 pack years, presented with a 1.4 cm spiculated, cavitary lesion in the right upper lung. PET scan showed increased uptake in the lesion with an SUV 5.5 and no evidence of hilar, mediastinal or extrathoracic disease. On 10/22/13, Dr. Calvert performed right VATS, right upper lobectomy, and lymphadenectomy (R2, R4, 7). Plan:: -Pain management -Out of bed, frequent ambulation -cough/deep breathe, acapella -regular diet -respiratory therapy- Desat study for home oxygen . Pain in joint, lower leg 05/01/2013 014 Tear of meniscus of left knee 02/16/2013 Fatigue 12/01/2012 11/12/2013 Snoring 12/01/2012 11/12/2013 Hyperglycemia 05/28/2012 01/02/2017 Mastalgia 09/04/2011 11/12/2013 CHRONIC AIRWAY OBSTRUCTION NEC 0 10/14/2015 Unspecified asthma(493.90) 11/21 Osteoporosis, unspecified 2020 History of lung cancer 6 Overview: squamous cell documented as of this encounter (statuses as of 07/26/2022) [facility] History of Past illness Narrative* Problem Noted Date Resolved Date COPD exacerbation 02/13/2022 07/04/2022 EKG abnormality 07/14/2021 07/17/2021 EKG abnormalities 03/22/2021 03/25/2021 Overview: EK03/20/[address]-T changes with some terminal T wave inversions V1 through V4 not present on EKG 01/12/2021 On apixaban therapy 03/21/2021 08/01/2021 Overview: For prior pulmonary embolus Shortness of breath 12/15/2020 03/21/2021 Nausea and vomiting 12/15/2020 03/21/2021 Generalized weakness 12/15/2020 03/21/2021 Abnormal urinalysis 12/15/2020 03/21/2021 Acute deep vein thrombosis ( DVT) of distal vein of left lower extremity 10/26/2020 03/21/2021 Change in bowel habit 07/08/2019 03/21/2021 Prediabetes 05/13/2019 03/21/2021 Type 2 diabetes mellitus without retinopathy 01/201903/21/2021 DM (diabetes mellitus) 01/02/2017 Last Assessment & Plan: Assessment: on oral agent, last A1c 6.1 02/2019 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 No signs or symptoms of DVT/PE. The patient is at high risk for VTE. Plan: - Continue Lovenox 40mg daily SC. - SCD/KAIA - Encourage continued ambulation . DISPOSITION AND FOLLOW-UP 10/23/20132013 Overview: Patient is and lives in [place], [place]. At this time, we anticipate that the patient will be discharged home once clinically stable. Plan: - Discuss needs with patient. - Collaborate with Case management to facilitate DC process - Will likely need home oxygen. Desat study ordered. . Tobacco abuse 10/23/2013 11/12/2013 Overview: Active smoker of 75 pack years. Benefits of smoking cessation discussed and patient states she is actively trying to quit (down to less than a pack per day from 1.5 pack per day). Continued to reinforce need to stop smoking. Is being discharged on home oxygen. Plan -Continue to encourage smoking cessation. -Start nicotine patch . Acute postoperative pain 10/23/2013 014 Overview: Patient states adequate pain control with Vicodin, oxycodone, and Motrin added in an attempt to transition to all oral pain regimen. Plan -Patient will be discharged on Oxycodone and home dosing of Naprosyn -Monitor pain, reassess to keep at pain level 4 or below. . Atelectasis 10/23/2013 10/24/2013 Overview: S/P right VATS upper lobectomy 10/23/13. Wearing 2 L/min oxygen, 95% pulse ox. CXR shows bilateral atelectasis. PLAN: -Bronchopulmonary hygiene, cough, deep breathe, acapella use, frequent ambulation. . Rt VATS Wedge, then RULobectomy 10/20/2013 10/14/2015 Overview: Patient is an active smoker of 75 pack years, presented with a 1.4 cm spiculated, cavitary lesion in the right upper lung. PET scan showed increased uptake in the lesion with an SUV 5.5 and no evidence of hilar, mediastinal or extrathoracic disease. On 10/22/13, Dr. Calvert performed right VATS, right upper lobectomy, and lymphadenectomy (R2, R4, 7). Plan:: -Pain management -Out of bed, frequent ambulation -cough/deep breathe, acapella -regular diet -respiratory therapy- Desat study for home oxygen . Pain in joint, lower leg 05/01/2013 014 Tear of meniscus of left knee 02/16/2013 Fatigue 12/01/2012 11/12/2013 Snoring 12/01/2012 11/12/2013 Hyperglycemia 05/28/2012 01/02/2017 Mastalgia 09/04/2011 11/12/2013 CHRONIC AIRWAY OBSTRUCTION NEC 0 10/14/2015 Unspecified asthma(493.90) 11/21 Osteoporosis, unspecified 2020 History of lung cancer 6 Overview: squamous cell documented as of this encounter (statuses as of 08/01/2022) [facility] History of Past illness Narrative* Problem Noted Date Resolved Date COPD exacerbation 02/13/2022 07/04/2022 EKG abnormality 07/14/2021 07/17/2021 EKG abnormalities 03/22/2021 03/25/2021 Overview: EK03/20/[address]-T changes with some terminal T wave inversions V1 through V4 not present on EKG 01/12/2021 On apixaban therapy 03/21/2021 08/01/2021 Overview: For prior pulmonary embolus Shortness of breath 12/15/2020 03/21/2021 Nausea and vomiting 12/15/2020 03/21/2021 Generalized weakness 12/15/2020 03/21/2021 Abnormal urinalysis 12/15/2020 03/21/2021 Acute deep vein thrombosis ( DVT) of distal vein of left lower extremity 10/26/2020 03/21/2021 Change in bowel habit 07/08/2019 03/21/2021 Prediabetes 05/13/2019 03/21/2021 Type 2 diabetes mellitus without retinopathy 01/201903/21/2021 DM (diabetes mellitus) 01/02/2017 Last Assessment & Plan: Assessment: on oral agent, last A1c 6.1 02/2019 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 No signs or symptoms of DVT/PE. The patient is at high risk for VTE. Plan: - Continue Lovenox 40mg daily SC. - SCD/KAIA - Encourage continued ambulation . DISPOSITION AND FOLLOW-UP 10/23/20132013 Overview: Patient is and lives in [place], [place]. At this time, we anticipate that the patient will be discharged home once clinically stable. Plan: - Discuss needs with patient. - Collaborate with Case management to facilitate DC process - Will likely need home oxygen. Desat study ordered. . Tobacco abuse 10/23/2013 11/12/2013 Overview: Active smoker of 75 pack years. Benefits of smoking cessation discussed and patient states she is actively trying to quit (down to less than a pack per day from 1.5 pack per day). Continued to reinforce need to stop smoking. Is being discharged on home oxygen. Plan -Continue to encourage smoking cessation. -Start nicotine patch . Acute postoperative pain 10/23/2013 014 Overview: Patient states adequate pain control with Vicodin, oxycodone, and Motrin added in an attempt to transition to all oral pain regimen. Plan -Patient will be discharged on Oxycodone and home dosing of Naprosyn -Monitor pain, reassess to keep at pain level 4 or below. . Atelectasis 10/23/2013 10/24/2013 Overview: S/P right VATS upper lobectomy 10/23/13. Wearing 2 L/min oxygen, 95% pulse ox. CXR shows bilateral atelectasis. PLAN: -Bronchopulmonary hygiene, cough, deep breathe, acapella use, frequent ambulation. . Rt VATS Wedge, then RULobectomy 10/20/2013 10/14/2015 Overview: Patient is an active smoker of 75 pack years, presented with a 1.4 cm spiculated, cavitary lesion in the right upper lung. PET scan showed increased uptake in the lesion with an SUV 5.5 and no evidence of hilar, mediastinal or extrathoracic disease. On 10/22/13, Dr. Calvert performed right VATS, right upper lobectomy, and lymphadenectomy (R2, R4, 7). Plan:: -Pain management -Out of bed, frequent ambulation -cough/deep breathe, acapella -regular diet -respiratory therapy- Desat study for home oxygen . Pain in joint, lower leg 05/01/2013 014 Tear of meniscus of left knee 02/16/2013 Fatigue 12/01/2012 11/12/2013 Snoring 12/01/2012 11/12/2013 Hyperglycemia 05/28/2012 01/02/2017 Mastalgia 09/04/2011 11/12/2013 CHRONIC AIRWAY OBSTRUCTION NEC 0 10/14/2015 Unspecified asthma(493.90) 11/21 Osteoporosis, unspecified 2020 History of lung cancer 6 Overview: squamous cell documented as of this encounter (statuses as of 08/02/2022) [facility] History of Past illness Narrative* Problem Noted Date Resolved Date COPD exacerbation 02/13/2022 07/04/2022 EKG abnormality 07/14/2021 07/17/2021 EKG abnormalities 03/22/2021 03/25/2021 Overview: EK03/20/[address]-T changes with some terminal T wave inversions V1 through V4 not present on EKG 01/12/2021 On apixaban therapy 03/21/2021 08/01/2021 Overview: For prior pulmonary embolus Shortness of breath 12/15/2020 03/21/2021 Nausea and vomiting 12/15/2020 03/21/2021 Generalized weakness 12/15/2020 03/21/2021 Abnormal urinalysis 12/15/2020 03/21/2021 Acute deep vein thrombosis ( DVT) of distal vein of left lower extremity 10/26/2020 03/21/2021 Change in bowel habit 07/08/2019 03/21/2021 Prediabetes 05/13/2019 03/21/2021 Type 2 diabetes mellitus without retinopathy 01/201903/21/2021 DM (diabetes mellitus) 01/02/2017 Last Assessment & Plan: Assessment: on oral agent, last A1c 6.1 02/2019 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 No signs or symptoms of DVT/PE. The patient is at high risk for VTE. Plan: - Continue Lovenox 40mg daily SC. - SCD/KAIA - Encourage continued ambulation . DISPOSITION AND FOLLOW-UP 10/23/20132013 Overview: Patient is and lives in [place], [place]. At this time, we anticipate that the patient will be discharged home once clinically stable. Plan: - Discuss needs with patient. - Collaborate with Case management to facilitate DC process - Will likely need home oxygen. Desat study ordered. . Tobacco abuse 10/23/2013 11/12/2013 Overview: Active smoker of 75 pack years. Benefits of smoking cessation discussed and patient states she is actively trying to quit (down to less than a pack per day from 1.5 pack per day). Continued to reinforce need to stop smoking. Is being discharged on home oxygen. Plan -Continue to encourage smoking cessation. -Start nicotine patch . Acute postoperative pain 10/23/2013 014 Overview: Patient states adequate pain control with Vicodin, oxycodone, and Motrin added in an attempt to transition to all oral pain regimen. Plan -Patient will be discharged on Oxycodone and home dosing of Naprosyn -Monitor pain, reassess to keep at pain level 4 or below. . Atelectasis 10/23/2013 10/24/2013 Overview: S/P right VATS upper lobectomy 10/23/13. Wearing 2 L/min oxygen, 95% pulse ox. CXR shows bilateral atelectasis. PLAN: -Bronchopulmonary hygiene, cough, deep breathe, acapella use, frequent ambulation. . Rt VATS Wedge, then RULobectomy 10/20/2013 10/14/2015 Overview: Patient is an active smoker of 75 pack years, presented with a 1.4 cm spiculated, cavitary lesion in the right upper lung. PET scan showed increased uptake in the lesion with an SUV 5.5 and no evidence of hilar, mediastinal or extrathoracic disease. On 10/22/13, Dr. Calvert performed right VATS, right upper lobectomy, and lymphadenectomy (R2, R4, 7). Plan:: -Pain management -Out of bed, frequent ambulation -cough/deep breathe, acapella -regular diet -respiratory therapy- Desat study for home oxygen . Pain in joint, lower leg 05/01/2013 014 Tear of meniscus of left knee 02/16/2013 Fatigue 12/01/2012 11/12/2013 Snoring 12/01/2012 11/12/2013 Hyperglycemia 05/28/2012 01/02/2017 Mastalgia 09/04/2011 11/12/2013 CHRONIC AIRWAY OBSTRUCTION NEC 0 10/14/2015 Unspecified asthma(493.90) 11/21 Osteoporosis, unspecified 2020 History of lung cancer 6 Overview: squamous cell documented as of this encounter (statuses as of 08/02/2022) [facility] History of Past illness Narrative* Problem Noted Date Resolved Date COPD exacerbation 02/13/2022 07/04/2022 EKG abnormality 07/14/2021 07/17/2021 EKG abnormalities 03/22/2021 03/25/2021 Overview: EK03/20/[address]-T changes with some terminal T wave inversions V1 through V4 not present on EKG 01/12/2021 On apixaban therapy 03/21/2021 08/01/2021 Overview: For prior pulmonary embolus Shortness of breath 12/15/2020 03/21/2021 Nausea and vomiting 12/15/2020 03/21/2021 Generalized weakness 12/15/2020 03/21/2021 Abnormal urinalysis 12/15/2020 03/21/2021 Acute deep vein thrombosis ( DVT) of distal vein of left lower extremity 10/26/2020 03/21/2021 Change in bowel habit 07/08/2019 03/21/2021 Prediabetes 05/13/2019 03/21/2021 Type 2 diabetes mellitus without retinopathy 01/201903/21/2021 DM (diabetes mellitus) 01/02/2017 Last Assessment & Plan: Assessment: on oral agent, last A1c 6.1 02/2019 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 No signs or symptoms of DVT/PE. The patient is at high risk for VTE. Plan: - Continue Lovenox 40mg daily SC. - SCD/KAIA - Encourage continued ambulation . DISPOSITION AND FOLLOW-UP 10/23/20132013 Overview: Patient is and lives in [place], [place]. At this time, we anticipate that the patient will be discharged home once clinically stable. Plan: - Discuss needs with patient. - Collaborate with Case management to facilitate DC process - Will likely need home oxygen. Desat study ordered. . Tobacco abuse 10/23/2013 11/12/2013 Overview: Active smoker of 75 pack years. Benefits of smoking cessation discussed and patient states she is actively trying to quit (down to less than a pack per day from 1.5 pack per day). Continued to reinforce need to stop smoking. Is being discharged on home oxygen. Plan -Continue to encourage smoking cessation. -Start nicotine patch . Acute postoperative pain 10/23/2013 014 Overview: Patient states adequate pain control with Vicodin, oxycodone, and Motrin added in an attempt to transition to all oral pain regimen. Plan -Patient will be discharged on Oxycodone and home dosing of Naprosyn -Monitor pain, reassess to keep at pain level 4 or below. . Atelectasis 10/23/2013 10/24/2013 Overview: S/P right VATS upper lobectomy 10/23/13. Wearing 2 L/min oxygen, 95% pulse ox. CXR shows bilateral atelectasis. PLAN: -Bronchopulmonary hygiene, cough, deep breathe, acapella use, frequent ambulation. . Rt VATS Wedge, then RULobectomy 10/20/2013 10/14/2015 Overview: Patient is an active smoker of 75 pack years, presented with a 1.4 cm spiculated, cavitary lesion in the right upper lung. PET scan showed increased uptake in the lesion with an SUV 5.5 and no evidence of hilar, mediastinal or extrathoracic disease. On 10/22/13, Dr. Calvert performed right VATS, right upper lobectomy, and lymphadenectomy (R2, R4, 7). Plan:: -Pain management -Out of bed, frequent ambulation -cough/deep breathe, acapella -regular diet -respiratory therapy- Desat study for home oxygen . Pain in joint, lower leg 05/01/2013 014 Tear of meniscus of left knee 02/16/2013 Fatigue 12/01/2012 11/12/2013 Snoring 12/01/2012 11/12/2013 Hyperglycemia 05/28/2012 01/02/2017 Mastalgia 09/04/2011 11/12/2013 CHRONIC AIRWAY OBSTRUCTION NEC 0 10/14/2015 Unspecified asthma(493.90) 11/21 Osteoporosis, unspecified 2020 History of lung cancer 6 Overview: squamous cell documented as of this encounter (statuses as of 08/31/2022) [facility] Miscellaneous Notes* Telephone Encounter - Tammy Runkle [employer]ARD [employer] SUPERVISOR - 02/12/2022 3:10 PM EDT Called and spoke with patient. Was going to be released next week because they thought she was ready for cardio. PT thought can hear sounds in both lower lungs. ? COPD flare up. Scheduled for Saturday per patient choice office Saturday and . Advised that if gets worse tonight to call first thing in the morning. Patient agreeable. * Telephone Encounter - Heladio Madsen MD - 02/12/2022 2:50 PM EDT If changed, needs seen. * Telephone Encounter - Anayeli Everett LPN - 02/12/2022 2:38 PM EDT Zita PT therapy assistant with [facility] called to report pt is having SOB with minimal walking. Zita reports O2 isnt dropping, 97-99%. Heart rate does increase but hasn't gone above 80, goes back down when pt sits. Pt told Zita she feels her heart beating in her chest at times. Pt has an occasional cough & told Zita she hears an occasional wheeze. Pt states she feels fine. Anayeli Everett LPN documented in this encounterOhio[facility] History of Present illness Narrative* Argenis Jewell RN - 02/05/2022 11:15 AM EDT INSIGHT [facility] TELEPHONIC OUTREACH Provider Action/FYI: Contact made with patient: No - Unable to leave message -End Outreach documented in this encounterOhio[facility] History of Present illness Narrative* Argenis Jewell RN - 02/01/2022 11:12 AM EDT [facility] TELEPHONIC OUTREACH Provider Action/FYI: Contact made with patient: No - Left message Yumiko my name is Argenis Jewell RN your Flanging Roll Operator from the [facility] I am calling today for your bi-weekly check in. I am sorry I missed your call. I will reach out to you again tomorrow. (if the third call I will reach out to you again next week) Enter next patient outreach date for the following business day using the Track Pt Outreach. End outreach. documented in this encounterOhio[facility] History of Present illness Narrative* Argenis Jewell RN - 01/17/2022 1:39 PM EDT [facility] TELEPHONIC OUTREACH Provider Action/FYI: Pt reports she is doing good, had US guided cortisone injection into left shoulder 01/11/22, states her shoulder is feeling much better. Pt states she did call [facility] in regards to Inogen, states she has not heard back, will follow up. Pt states she still has to call insurance to inquire about coverage for a portable wheelchair. Pt had no further questions, concerns, needs at this time. Contact made with patient: Yes Patient identified by name and . Discussed care with patient It s nice talking to you again. As a reminder, this is our bi-weekly check-in where I will be asking you questions about your health. This will only take a few minutes of your time. Is this a good time? Yes Symptoms What Chronic Disease(s) does the patient have: COPD Do you check your blood pressures at home? No Do you have new or worse shortness of breath with activity? No Do you have new or worsening cough? No Do you have new or worsening wheezing? No Do you need to use your rescue (Albuterol) inhaler or nebulizer more often than normal? No Are you having any other symptoms that your PCP needs to know about? No Symptom Escalation The patient required an escalation for symptom(s)? No Medications Do you have any questions about taking your medication or which medications you should be on? No Do you need any medication refills at this time, including any of the medications you might take only when needed? No Social We would like to make sure you have what you need so that your basic needs are met- including your personal safety, food, housing and medications? Would you like to speak with a social work restaurant team member to help give you support for any of these needs? No It can be normal to feel anxious or down during a time like this. Would you like to talk to a mental health professional about how you have been feeling? No Closing Thank you for taking the time to talk with me today. We want to work with you to ensure that we arekeeping your medical condition(s) well-controlled and to keep you healthy and out of the doctor's office or hospital. It s also not too late for me to sign you up for automated weekly questionnaires through [employer]. This is an easy way for us to stay connected each week. Are you interested? No, I understand. We can always sign you up in the future if you change your mind. Just as a reminder, will continue to call you every other week to check in on your health. Our calls should take 10-15 minutes or less. Remember, if you have concerns in between our calls, please call your PCP's office right away. Thank you. Enter next patient outreach date for two weeks on the same day of the week as today in the Track PtOutreach and End outreach. * Argenis Jewell RN - 01/17/2022 12:13 PM EDT INSIGHT [facility] TELEPHONIC OUTREACH Provider Action/FYI: Contact made with patient: No - Left message Helblake my name is Argenis Jewell RN your Flanging Roll Operator from the [facility] I am calling today for your bi-weekly check in. I am sorry I missed your call. I will reach out to you again tomorrow. (if the third call I will reach out to you again next week) Enter next patient outreach date for the following business day using the Track Pt Outreach. End outreach. documented in this encounterOhiohealth [facility] History of Present illness Narrative* Argenis Jewell RN - 01/16/2022 12:08 PM EDT INSIGHT [facility] TELEPHONIC OUTREACH Provider Action/FYI: Contact made with patient: No - Left message Hello my name is Argenis Jewell RN your Flanging Roll Operator from the [facility] I am calling today for your bi-weekly check in. I am sorry I missed your call. I will reach out to you again tomorrow. (if the third call I will reach out to you again next week) Enter next patient outreach date for the following using the Track Pt Outreach. End outreach. documented in this encounterOhiohealth [facility] Center05-16-2022 History of Present illness Narrative* Elena Ibarra PA-C - 01/08/2022 3:55 PM EDT In lieu of an in-person visit due to COVID-19 concerns, a virtual visit was performed on the patient. Patient is aware that I am not fully able to assess symptoms and do a full physical examination including vital signs assessment at this time. Patient consents to this encounter. FOLLOW UP VISIT - ENDOSCOPY NAME: Tamiko Lindsay [facility] NO.: [id number] DATE OF SERVICE: 01/08/2022 : 1950 REFERRING PHYSICIAN: Heladio Madsen MD Tamiko is a patient I am following with Dr. Gregg for change in bowel habits, loose stools, fecalurgency and nausea. Dr. Gregg performed upper and lower endoscopy on 12/18/21. The patient was found to have gastritis and non-severe reflux esophagitis on EGD. Colon appeared normal, random biopsies taken for evaluation of microscopic colitis. Pathology demonstrated: FINAL DIAGNOSIS A. Jejunum , biopsy: - Duodenal-type mucosa with no significant pathologic change. B. Stomach, antrum, biopsy: - Gastric antral mucosa with no significant pathologic change. - No intestinal metaplasia or morphologic evidence of Helicobacter pylori organisms. C. Esophagus, lower, biopsy: - Hyperplastic squamous esophageal mucosa with occasional intraepithelial eosinophils (focally up to approximately 3 eosinophils per high power field). - Inflamed gastric cardia-type mucosa with reactive epithelial changes; negative for intestinal metaplasia. D. Esophagus, mid, biopsy: - Squamous esophageal mucosa with no significant pathologic change. E. Terminal ileum, biopsy: - Small intestinal mucosa with no significant pathologic change. F. Colon, random ascending, biopsy: - Colonic mucosa with no significant pathologic change. G. Colon, random descending, biopsy: - Colonic mucosa with no significant pathologic change. The patient notes no new complaints since the procedure. Patient does note she is still having BMs 4-5 x/day. States stools are loose in morning, solid in afternoon. States symptoms occur regardless of food type. She continues to note some bloating and nausea Assessment IMPRESSION: s/p EGD and colonoscopy for evaluation of change in bowel habits, loose stools, nausea.Normal random biopsies. Gastritis, negative for H. pylori PLAN: The operative findings and pathology report were reviewed with the patient, and the patient has hadthe opportunity to ask questions and have questions answered. If the patient notes any problems or changes in bowel function, the patient should contact me immediately. Otherwise I recommend follow up endoscopy in 10 years. HM updated and recall letter generated. Recommend fiber and probiotic. Follow up if symptoms worsen or persist despite these measures. Consider GI referral if symptoms not improving-patient declines referral at this time Patient verbalized understanding of all above and agreed with the plan Diagnoses: (K21.9) Gastroesophageal reflux disease, unspecified whether esophagitis present (primary encounter diagnosis) (K29.30) Chronic superficial gastritis without bleeding I spent a total of 23 minutes on the date of the service which included preparing to see the patient, completing clinical documentation, counseling and educating the patient/family/caregiver, independently interpreting results (not separately reported) and communicating results to the patient/family/caregiver. Elena Ibarra PA-C documented in this encounterOhiohealth [facility] Center05-12-2022 Miscellaneous Notes* Telephone Encounter - Rowena Stout PSS - 01/04/2022 2:50 PM EDT Spoke with patient and her aide is able to bring her next week. Patient is scheduled 01/10 with Elena Ibarra at 2:00. Rowena Stout PSS * Telephone Encounter - Lou Lima RN - 01/04/2022 2:17 PM EDT Tamiko had an EGD and colonoscopy completed on 12/18/[address] Dario Gregg. The patient hadbiopsies taken and will require a follow up visit with either PHILOMENA Lobato or Dr. Gregg. Thank you. Lou Lima RN documented in this encounterOhiohealth [facility]05-11-2022 History of Present illness Narrative* Argenis Jewell RN - 01/03/2022 10:19 AM EDT INSIGHT [facility] TELEPHONIC OUTREACH Provider Action/FYI: Patient reports she is doing okay, states she placed a wedge under mattress. Pt voices much frustration in regards to being homebound, patient to call [facility] to inquire about a portable tank such as Inogen. Pt also is inquiring about a portable powered wheelchair, was advised at that pcp will need to fill out a form. Advised pt to speak with an insurance and financial services agent about this as well, she may need to have a pcpappt for evaluation. Pt agreeable to above, voiced appreciation. No further questions,concerns, needs at this time. Contact made with patient: Yes Patient identified by name and . Discussed care with patient It s nice talking to you again. As a reminder, this is our bi-weekly check-in where I will be asking you questions about your health. This will only take a few minutes of your time. Is this a good time? Yes Symptoms What Chronic Disease(s) does the patient have: COPD Do you check your blood pressures at home? Yes, Enter readings: did not inquire Do you have new or worse shortness of breath with activity? No Do you have new or worsening cough? No Do you have new or worsening wheezing? No Do you need to use your rescue (Albuterol) inhaler or nebulizer more often than normal? No Are you having any other symptoms that your PCP needs to know about? No Symptom Escalation The patient required an escalation for symptom(s)? No Medications Do you have any questions about taking your medication or which medications you should be on? No Do you need any medication refills at this time, including any of the medications you might take only when needed? No Social We would like to make sure you have what you need so that your basic needs are met- including your personal safety, food, housing and medications? Would you like to speak with a social work restaurant team member to help give you support for any of these needs? No It can be normal to feel anxious or down during a time like this. Would you like to talk to a mental health professional about how you have been feeling? No Closing Thank you for taking the time to talk with me today. We want to work with you to ensure that we arekeeping your medical condition(s) well-controlled and to keep you healthy and out of the doctor's office or hospital. It s also not too late for me to sign you up for automated weekly questionnaires through [employer]. This is an easy way for us to stay connected each week. Are you interested? No, I understand. We can always sign you up in the future if you change your mind. Just as a reminder, will continue to call you every other week to check in on your health. Our calls should take 10-15 minutes or less. Remember, if you have concerns in between our calls, please call your PCP's office right away. Thank you. Enter next patient outreach date for two weeks on the same day of the week as today in the Track PtOutreach and End outreach. documented in this encounterOhio[facility]05-10-2022 Instructions* Patient Instructions* Nivia Heath APRN.[facility] FORMER - 01/02/2022 3:10 PM EDT 1. Let me know what Abbey says. 2. Recheck in 3 months. I'll put orders for labwork in. documented in this encounterOhiohealth [facility]heastern [facility] Center05-10-2022 History of Present illness Narrative* Nivia Heath APRN.AWA - 01/02/2022 2:51 PM EDT This is a 71 year old female who presents today with: Patient presents with: Recheck: 1 month follow up HISTORY OF PRESENT ILLNESS: Tamiko Diamond is a 71 year old female. Patient presents with: Recheck: 1 month follow up Patient presents today for 1 month follow-up. COPD Using the non-invasive vent and the bipap -- refers that oxygen levels will be in the upper 80's when she get's up. Uses 2 L of oxygen during the day. Uses 2 1/2 L at night. Oxygen level gets up to the 90's when she changes from over-night vent to oxygen tank. Breathing has been okay. No chest pain/palpitation. Appetite has been good. Urinating and moving bowels adequately. Sleeping okay. Refers that she continues to be homebound. Only gets out for medication appointments. Refers that she is not able to carry the oxygen. Questioning the possible of getting a more compact/esl tutor device so that she would be able to get out more. PT/OT - once weekly. Has an aid that comes three days weekly. A nurse comes in occasionally for assessment. PAST MEDICAL HISTORY: PAST MEDICAL HISTORY Diagnosis Date Abnormal finding on Pap smear, ASCUS 12/2010 CAD (coronary artery disease) had 65 % blockage in RCA but normal ischemia. Cancer of lung (HCC) squamous cell Chronic airway obstruction, not elsewhere classified Compression fracture of body of thoracic vertebra (HCC) 04/08/2021 Depression Diabetes (HCC) Dislocation of left shoulder joint 09/2021 Essential hypertension 05/13/2019 Generalized osteoarthrosis, unspecified site GERD (gastroesophageal reflux disease) Irritable bowel syndrome Irritable bowel Leukocytosis 12/15/2020 Myalgia and myositis, unspecified Fibromyalgia (myalgia and myositis) Obstructive sleep apnea wears BiPap Osteoporosis, unspecified 2 dorsal spine compression fractures 03/2021. Other extrapyramidal disease and abnormal movement disorder Pure hypercholesterolemia Restless leg Rt VATS Wedge, then RULobectomy 10/20/2013 Patient is an active smoker of 75 pack years, presented with a 1.4 cm spiculated, cavitary lesion in the right upper lung. PET scan showed increased uptake in the lesion with an SUV 5.5 and no evidence of hilar, mediastinal or extrathoracic disease. On 10/22/13, Dr. Calvert performed right VATS, right upper lobectomy, and lymphadenectomy (R2, R4, 7). Plan:: -Pain management -Out of bed, frequent ambulation -cough/deep breathe, acapella -regular diet - respiratory therapy- Desat study for home oxygen . Tobacco abuse 10/23/2013 Unspecified asthma(493.90) adult only PAST SURGICAL HISTORY Procedure Laterality Date ARTHRS KNE SURG W/MENISCECTOMY MED/LAT W/SHVG Right 02/11/2015 Right knee arthroscopic medial meniscectomu with medial chondroplasty DELIVERY ONLY , low transverse COLONOSCOPY 12/18/2021 COLONOSCOPY FLX DX W/COLLJ SPEC WHEN PFRMD 2005 Colonoscopy, normal COLONOSCOPY FLX DX W/COLLJ SPEC WHEN PFRMD 10/18/2015 COLONOSCOPY FLX DX W/COLLJ SPEC WHEN PFRMD 07/13/2019 Colonoscopy COLPOPEXY VAGINAL EXTRAPERITONEAL APPROACH EGD TRANSORAL BIOPSY SINGLE/MULTIPLE 10/18/2015 EGD W/O BRSH SPEC VARICIES INJ 12/18/2021 ESOPHAGOGASTRODUODENOSCOPY TRANSORAL DIAGNOSTIC EGD HEMORRHOID;BAND LIGAT, SNGL/MUL 07/2021 PAST SURGICAL HISTORY OF 03/20/2013 left knee arthroscopy with meniscus repair PAST SURGICAL HISTORY OF 2013 right upper lobectomy- cancer PAST SURGICAL HISTORY OF 01/24/2015 nerve block intercostal with c-arm REPAIR RECTOCELE SEPARATE PROCEDURE THORACOSCOPY SURG LOBECTOMY Right 10/23/2013 Elkin Calvert MD. RUL TOTAL ABDOMINAL HYSTERECT W/WO RMVL TUBE OVARY Hysterectomy, CRISTY with rectocele ALLERGIES Neurontin [Gabapentin], Avelox [Moxifloxacin Hcl], Wellbutrin [Bupropion Hcl], and Bupropion MEDICATIONS Current Outpatient Medications Medication Sig diclofenac (VOLTAREN ARTHRITIS PAIN) 1 % topical gel Apply 4 g to affected area four times daily. furosemide (LASIX) 20 mg tablet Take 2 tablets by mouth once daily. meloxicam (MOBIC) 15 mg tablet Take 1 tablet by mouth once daily as needed for pain. With food. traZODone (DESYREL) 100 mg tablet Take 1 tablet by mouth daily at bedtime. atorvastatin (LIPITOR) 80 mg tablet Take 1 tablet by mouth daily at bedtime. clopidogrel (PLAVIX) 75 mg tablet Take 1 tablet by mouth once daily. losartan (COZAAR) 100 mg tablet Take 1 tablet by mouth once daily. tiZANidine (ZANAFLEX) 4 mg tablet Take 4 mg by mouth. sertraline (ZOLOFT) 50 mg tablet Take 1/2 tab once a day orally for one week then 1 tab once a day rOPINIRole (REQUIP) 2 mg tablet Take 1 tablet by mouth daily at bedtime. umeclidinium (INCRUSE ELLIPTA) 62.5 mcg/actuation inhaler Inhale 1 Puff as instructed once daily. fluticasone-vilanterol (BREO ELLIPTA) 100-25 mcg/dose inhaler Inhale 1 Inhalation as instructed once daily. pramipexole (MIRAPEX) 1.5 mg tablet Take 1 tablet by mouth daily at bedtime. Lancets lancets Test blood sugar(s) bid times daily. Dx: Type 2 DM - Controlled E11.9 Insulin: Yes blood sugar diagnostic (BLOOD GLUCOSE TEST) test strip Test blood sugar(s) 2 times daily. Dx: Type 2 DM - Controlled E11.9 Insulin: No Ibandronate (BONIVA) 150 mg tablet Take 1 tablet by mouth once every month. Take in the am with full glass of water on an empty stomach; do NOT eat or lie down for next 30 minutes. ipratropium-albuterol (DUONEB) 0.5 mg-3 mg(2.5 mg base)/3 mL nebu Inhale 3 mL as instructed every 4hours as needed for wheezing/shortness of breath. PULSE OXIMETER [facility] Use to check oxygen saturation. pantoprazole DR (PROTONIX) 40 mg tablet Take 1 tablet by mouth once daily. calcium-cholecalciferol, D3, (OSCAL+D 250) 250-125 mg-unit per tablet Take 1 tablet by mouth twice daily. OXYGEN, HOME THERAPY, 2 L/min by Nasal Cannula route daily at bedtime. (Patient taking differently:2.5 L/min by Nasal Cannula route once daily. PRN through the day and at night ) COMPOUNDED PRESCRIPTION Bipap mask and tubing. COMPOUNDED PRESCRIPTION Adjust bilevel PAP to setting of 16/10 cmH2O with heated humidification COMPOUNDED PRESCRIPTION Initiate BiPAP @ 14/8 cm of water with humidification. Mask (per patient preference) optional chin strap (if indicated) , filters, tubing, humidifier and lifetime supplies. Dx. SHANA 327.23 Current Facility-Administered Medications Medication Dose Route Frequency perflutren lipid microspheres 1.3 mL in NaCl (PF) 0.9% 10 mL injection (DEFINITY) INTRAVENOUS DIRECTED PRN sodium chloride 0.9 % (flush) 10 mL (BD POSIFLUSH) 10 mL INTRAVENOUS DIRECTED PRN FAMILY HISTORY Problem Relation Age of Onset Diabetes Father Heart disease Father Heart Father Colon Polyps Father Breast Cancer Sister Diabetes Sister Cancer Brother Prostate and throat cancer Heart disease Brother Stroke Brother Hypertension Brother Heart Brother Diabetes Brother No Ocular Disease No Family History Social History Tobacco Use Smoking status: Former Smoker Packs/day: 1.00 Years: 52.00 Pack years: 52.00 Types: Cigarettes Start date: 1962 Quit date: 04/24/2021 Years since quittin.6 Smokeless tobacco: Never Used Tobacco comment: wearing patch Vaping Use Vaping Use: Former Substances: Nicotine, Flavoring Substance Use Topics Alcohol use: Yes Comment: once a year Drug use: No EXAM: BP 130/84 Pulse 76 Resp 18 SpO2 100% PHYSICAL EXAM: General Appearance: Well appearing, alert, in no acute distress, well-hydrated, well nourished.. Skin: Skin color, texture, turgor normal, no suspicious rashes or lesions. Head: Normocephalic, no masses, lesions, tenderness or abnormalities. Eyes: Anicteric sclera. Pupils are equally round and reactive to light. Extraocular movements are intact. . Lungs: l/s decreased. Few bibasilar rales. Heart: RRR without murmur, gallop, or rubs. No ectopy. Neurologic: Gait normal. ASSESSMENT/PLAN: 1. Other emphysema (HCC) - ICD9: 492.8, ICD10: J43.8 Stable. She will check with her oxygen supplier regarding possible different portable concentrator/oxygen tanks that she may be able to handle. We will plan on following up in 3 months. She will get labs before next appointment. Discussed treatment plan and patient voices understanding. Patient's questions answered appropriately. Medications and potential side effects were discussed and patient voices understanding. Return to the office as scheduled or as needed for worsening/no improvement. Nivia Heath APRN.AWA The patient indicates understanding of these issues and agrees with the plan. This note was partially generated using [email or web address] voice recognition system. Note was reviewed for accuracy. There may be minor misspellings or grammar miscues with [employer] voice recognition. documented in this encounterOhio[facility]05-04-2022 History of Present illness Narrative* Cesar Posey MD - 12/27/2021 11:28 AM EDT [facility] Department of Orthopedics Cesar Posey MD FACS 71-year-old tkipa-yxhi-zxecgfpa female here today with her daughter complaining of about 6 weeks ofleft shoulder pain. Denies a previous history of this problem and denies any injury. She states shehas a dull ache that is always there. She points directly to the AC joint as a source of her discomfort. Says it does not bother her too much and can elevate her arm. It does bother her when she sleeps. She is had no treatment. Current Outpatient Medications Medication Sig diclofenac (VOLTAREN ARTHRITIS PAIN) 1 % topical gel Apply 4 g to affected area four times daily. furosemide (LASIX) 20 mg tablet Take 2 tablets by mouth once daily. meloxicam (MOBIC) 15 mg tablet Take 1 tablet by mouth once daily as needed for pain. With food. traZODone (DESYREL) 100 mg tablet Take 1 tablet by mouth daily at bedtime. atorvastatin (LIPITOR) 80 mg tablet Take 1 tablet by mouth daily at bedtime. clopidogrel (PLAVIX) 75 mg tablet Take 1 tablet by mouth once daily. losartan (COZAAR) 100 mg tablet Take 1 tablet by mouth once daily. tiZANidine (ZANAFLEX) 4 mg tablet Take 4 mg by mouth. sertraline (ZOLOFT) 50 mg tablet Take 1/2 tab once a day orally for one week then 1 tab once a day rOPINIRole (REQUIP) 2 mg tablet Take 1 tablet by mouth daily at bedtime. Lancets lancets Test blood sugar(s) bid times daily. Dx: Type 2 DM - Controlled E11.9 Insulin: Yes blood sugar diagnostic (BLOOD GLUCOSE TEST) test strip Test blood sugar(s) 2 times daily. Dx: Type 2 DM - Controlled E11.9 Insulin: No Ibandronate (BONIVA) 150 mg tablet Take 1 tablet by mouth once every month. Take in the am with full glass of water on an empty stomach; do NOT eat or lie down for next 30 minutes. ipratropium-albuterol (DUONEB) 0.5 mg-3 mg(2.5 mg base)/3 mL nebu Inhale 3 mL as instructed every 4hours as needed for wheezing/shortness of breath. PULSE OXIMETER [facility] Use to check oxygen saturation. pantoprazole DR (PROTONIX) 40 mg tablet Take 1 tablet by mouth once daily. OXYGEN, HOME THERAPY, 2 L/min by Nasal Cannula route daily at bedtime. (Patient taking differently:2.5 L/min by Nasal Cannula route once daily. PRN through the day and at night ) COMPOUNDED PRESCRIPTION Bipap mask and tubing. COMPOUNDED PRESCRIPTION Adjust bilevel PAP to setting of 16/10 cmH2O with heated humidification COMPOUNDED PRESCRIPTION Initiate BiPAP @ 14/8 cm of water with humidification. Mask (per patient preference) optional chin strap (if indicated) , filters, tubing, humidifier and lifetime supplies. Dx. SHANA 327.23 umeclidinium (INCRUSE ELLIPTA) 62.5 mcg/actuation inhaler Inhale 1 Puff as instructed once daily. fluticasone-vilanterol (BREO ELLIPTA) 100-25 mcg/dose inhaler Inhale 1 Inhalation as instructed once daily. pramipexole (MIRAPEX) 1.5 mg tablet Take 1 tablet by mouth daily at bedtime. calcium-cholecalciferol, D3, (OSCAL+D 250) 250-125 mg-unit per tablet Take 1 tablet by mouth twice daily. Current Facility-Administered Medications Medication Dose Route Frequency perflutren lipid microspheres 1.3 mL in NaCl (PF) 0.9% 10 mL injection (DEFINITY) INTRAVENOUS DIRECTED PRN sodium chloride 0.9 % (flush) 10 mL (BD POSIFLUSH) 10 mL INTRAVENOUS DIRECTED PRN ACTIVE PROBLEM LIST Pure Hypercholesterolemia Generalized Osteoarthrosis, Unspecified Site Other Extrapyramidal Disease and Abnormal Movement Disorder Tobacco Use Disorder Restless Leg Syndrome Chronic Rhinitis Shana (Obstructive Sleep Apnea) Copd (Chronic Obstructive Pulmonary Disease) (Hcc) Intercostal Neuritis Lumbago Degeneration of Intervertebral Disc, Site Unspecified Av Block, 1st Degree Lung Cancer (Hcc) Osteoporosis 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 Epiretinal Membrane (Erm) of Left Eye 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 Obesity, Class I, Bmi 30-34.9 Cad (Coronary Artery Disease) Essential Hypertension History of Colonic Polyps Leukocytosis Hyponatremia Controlled Type 2 Diabetes Mellitus Without Complication, Without Long-Term Current Use of Insulin (Hcc) History of Pulmonary Embolism Hypokalemia Acute Exacerbation of Chronic Obstructive Pulmonary Disease (Copd) (Hcc) Centrilobular Emphysema (Hcc) Compression Fracture of Body of Thoracic Vertebra (Hcc) Chest Pain Type 2 Diabetes Mellitus (Hcc) Chronic Pain Hemorrhoids Chronic Respiratory Failure (Hcc) Obesity, Class II, Bmi 35-39.9 Coronary Stent Patent PAST SURGICAL HISTORY Procedure Laterality Date ARTHRS KNE SURG W/MENISCECTOMY MED/LAT W/SHVG Right 02/11/2015 Right knee arthroscopic medial meniscectomu with medial chondroplasty DELIVERY ONLY , low transverse COLONOSCOPY 12/18/2021 COLONOSCOPY FLX DX W/COLLJ SPEC WHEN PFRMD 2006 Colonoscopy, normal COLONOSCOPY FLX DX W/COLLJ SPEC WHEN PFRMD 10/18/2015 COLONOSCOPY FLX DX W/COLLJ SPEC WHEN PFRMD 07/13/2019 Colonoscopy COLPOPEXY VAGINAL EXTRAPERITONEAL APPROACH EGD TRANSORAL BIOPSY SINGLE/MULTIPLE 10/18/2015 EGD W/O BRSH SPEC VARICIES INJ 12/18/2021 ESOPHAGOGASTRODUODENOSCOPY TRANSORAL DIAGNOSTIC EGD HEMORRHOID;BAND LIGAT, SNGL/MUL 07/2021 PAST SURGICAL HISTORY OF 03/20/2013 left knee arthroscopy with meniscus repair PAST SURGICAL HISTORY OF 2013 right upper lobectomy- cancer PAST SURGICAL HISTORY OF 01/24/2015 nerve block intercostal with c-arm REPAIR RECTOCELE SEPARATE PROCEDURE THORACOSCOPY SURG LOBECTOMY Right 10/23/2013 Elkin Calvert MD. RUL TOTAL ABDOMINAL HYSTERECT W/WO RMVL TUBE OVARY Hysterectomy, CRISTY with rectocele PAST MEDICAL HISTORY Diagnosis Date Abnormal finding on Pap smear, ASCUS 12/2010 CAD (coronary artery disease) had 65 % blockage in RCA but normal ischemia. Cancer of lung (HCC) squamous cell Chronic airway obstruction, not elsewhere classified Compression fracture of body of thoracic vertebra (HCC) 04/08/2021 Depression Diabetes (HCC) Dislocation of left shoulder joint 09/2021 Essential hypertension 05/13/2019 Generalized osteoarthrosis, unspecified site GERD (gastroesophageal reflux disease) Irritable bowel syndrome Irritable bowel Leukocytosis 12/15/2020 Myalgia and myositis, unspecified Fibromyalgia (myalgia and myositis) Obstructive sleep apnea wears BiPap Osteoporosis, unspecified 2 dorsal spine compression fractures 03/2021. Other extrapyramidal disease and abnormal movement disorder Pure hypercholesterolemia Restless leg Rt VATS Wedge, then RULobectomy 10/20/2013 Patient is an active smoker of 75 pack years, presented with a 1.4 cm spiculated, cavitary lesion in the right upper lung. PET scan showed increased uptake in the lesion with an SUV 5.5 and no evidence of hilar, mediastinal or extrathoracic disease. On 10/22/13, Dr. Calvert performed right VATS, right upper lobectomy, and lymphadenectomy (R2, R4, 7). Plan:: -Pain management -Out of bed, frequent ambulation -cough/deep breathe, acapella -regular diet -respiratory therapy- Desat study for home oxygen . Tobacco abuse 10/23/2013 Unspecified asthma(493.90) adult only FAMILY HISTORY Problem Relation Age of Onset Diabetes Father Heart disease Father Heart Father Colon Polyps Father Breast Cancer Sister Diabetes Sister Cancer Brother Prostate and throat cancer Heart disease Brother Stroke Brother Hypertension Brother Heart Brother Diabetes Brother No Ocular Disease No Family History Social History Tobacco Use Smoking status: Former Smoker Packs/day: 1.00 Years: 52.00 Pack years: 52.00 Types: Cigarettes Start date: 1962 Quit date: 04/24/2021 Years since quittin.6 Smokeless tobacco: Never Used Tobacco comment: wearing patch Vaping Use Vaping Use: Former Substances: Nicotine, Flavoring Substance Use Topics Alcohol use: Yes Comment: once a year Drug use: No ALLERGIES Allergen Reactions Neurontin [Gabapent* Mental Status Change Slurred speech, It was like I was drunk. No seizures. Avelox [Moxifloxaci* Rash Wellbutrin [Bupropi* Hives, Itching Bupropion Hives REVIEW OF SYSTEMS General: NO fever, NO chills, NO night sweats Constitutional:NO recent unwanted weight loss, NO excessive weight Skin: NO rashes, NO chronic skin condition Head: NO seizures, NO headaches, NO dizziness Respiratory: NO cough Cardiovascular: NO chest pain Gastrointestinal: NO nausea, NO vomiting, NO abdominal painEndocrine: NO thyroid problems, NO heat intolerance Musculoskeletal: see HPI Neurologic: no numbness or tingling in extremities Examination: 71-year-old female no acute distress. Alert and oriented x3. 5 feet 3 inches tall 191 pounds. Full active elevation of the left shoulder without difficulty. Passive seated external rotation of 60 degrees. Jobes maneuver is negative Laird sign is negative. There is tenderness with palpation directly over the AC joint this is the pain of complaint. Positive tenderness with resisted abduction of the arm when extended outward in front. Radiologic review: X-rays ordered previously and to my interpretation reveal narrowing of the acromioclavicular joint. Impression: Acromioclavicular joint arthropathy. Recommendation is a cortisone injection. We will make arrangements with our colleagues for that to be done under ultrasound guidance. At the conclusion of the office visit, the patient was asked if they had any questions regarding the diagnosis or care. Also, ample time was provided for the patient to ask any questions regarding the diagnosis therefore plan of care. All the patient's questions if asked were answered to their satisfaction. This note was partially generated using [email or web address] voice recognition system and as such may contain grammatical or word errors Cesar Posey MD documented in this encounterOhiohealth [facility]04-27-2022 Miscellaneous Notes* Telephone Encounter - Heladio Madsen MD - 12/20/2021 3:00 PM EDT Noted. * Telephone Encounter - Maria D Wiggins LPN - 12/20/2021 2:46 PM EDT Jeanna with [facility] calling stating they are re faxing orders to be signed by the doctor. The orders were signed by Nivia Heath and they need to be signed by Doctor on the form. Maria D Wiggins LPN documented in this encounterOhiohealth [facility]heastern [facility] Center04-26-2022 History of Present illness Narrative* Jyoti Gardiner Population Health Navigator - 12/19/2021 1:17 PM EDT POPULATION HEALTH NAVIGATION OUTREACH Action/FYI 1st attempt- Spoke to patient and rescheduled appt with Nivia Nunes for 01-01-22. Pt identified by name and : YES, via phone Outreach Outcome/Action Spoke to patient or caregiver: Patient scheduled Reason for Outreach Community Monitoring Lindsey Payer: Payor: [facility] MEDICARE / Plan: [facility] MEDICARE / Product Type: Medicare / Care Gap Reviewed:: Follow-up appointment Reminder: Reminder note to check Health Maintenance for items below Health Maintenance items due: HEPATITIS C SCREENING Never done BP CONTROLLED (<130/80) Never done DTAP,TDAP,TD(1 - Tdap) Never done SHINGRIX VACCINE(1 of 2) Never done DIABETIC FOOT EXAM due on 12/30/2019 ADVANCE DIRECTIVE DISCUSSION Never done MAMMOGRAM due on 09/07/2021 Message Sent to Practice: No Navigation Signature: Jyoti Gardiner Population Health Navigator December 19, 2021 1:17 PM * Argenis Jewell RN - 12/19/2021 10:59 AM EDT INSIGHT CDM TELEPHONIC OUTREACH Provider Action/FYI: Pt would like to schedule follow up with Nivia Heath APRN, CNP. Pt aware she will be receiving a call from the office. Pt reports she is doing okay, had overnight BiPap study completed at home through [facility] a couple of weeks ago. Pt feels she may need her settings changed, spo2 is in the high 80's in the morning, after a few deep breathes with O2 @2L, she is able to bring spo2 to 96/97% Current spo2 92% Pt states she does feel her sob is slowly worsening. Currently speaking in full sentences with no sob, wheeze or cough. Pt states she had to cancel 12/08/21 appt, would like to reschedule for follow up. Encounter forwarded to [facility] pool to schedule patient. Pt had no further questions/concerns/needs at this time. Contact made with patient: Yes Patient identified by name and . Discussed care with patient It s nice talking to you again. As a reminder, this is our bi-weekly check-in where I will be asking you questions about your health. This will only take a few minutes of your time. Is this a good time? Yes Symptoms What Chronic Disease(s) does the patient have: CHF Do you check your blood pressures at home? Yes, Enter readings: see fyi Do you have new or worse shortness of breath with activity? Yes Do you have new or worsening cough? No Do you have new or worsening wheezing? No Do you need to use your rescue (Albuterol) inhaler or nebulizer more often than normal? No Are you having any other symptoms that your PCP needs to know about? No Symptom Escalation The patient required an escalation for symptom(s)? No Medications Do you have any questions about taking your medication or which medications you should be on? No Do you need any medication refills at this time, including any of the medications you might take only when needed? No Social We would like to make sure you have what you need so that your basic needs are met- including your personal safety, food, housing and medications? Would you like to speak with a social work restaurant team member to help give you support for any of these needs? No It can be normal to feel anxious or down during a time like this. Would you like to talk to a mental health professional about how you have been feeling? No Closing Thank you for taking the time to talk with me today. We want to work with you to ensure that we arekeeping your medical condition(s) well-controlled and to keep you healthy and out of the doctor's office or hospital. It s also not too late for me to sign you up for automated weekly questionnaires through [employer]. This is an easy way for us to stay connected each week. Are you interested? No, I understand. We can always sign you up in the future if you change your mind. Just as a reminder, will continue to call you every other week to check in on your health. Our calls should take 10-15 minutes or less. Remember, if you have concerns in between our calls, please call your PCP's office right away. Thank you. Enter next patient outreach date for two weeks on the same day of the week as today in the Track PtOutreach and End outreach. documented in this encounterOhiohealth [facility]04-25-2022 Nurse Note* Ravi Brito RN - 12/18/2021 12:57 PM EDT 1257 Nursing Progress Note Patient Name: Tamiko Diamond Patient Location: Room/bed info not found Daily Note: lite snack given,no c/o This note was completed by: Ravi Brito * Ravi Brito RN - 12/18/2021 12:50 PM EDT Nursing Progress Note Patient Name: Tamiko Diamond Patient Location: Room/bed info not found Daily Note: Up to restroom, voiding without diff This note was completed by: Ravi Brito * Sigrid Bob RN - 12/18/2021 11:15 AM EDT Nursing Progress Note Patient Name: Tamiko Diamond Patient Location: Room/bed info not found pt read for OR, leeroy light in reach, no one here with pt at this time. This note was completed by: Sigrid Bob * Sigrid Bob RN - 12/18/2021 10:38 AM EDT Nursing Progress Note Patient Name: Tamiko Diamond Patient Location: Room/bed info not found pt to bathroom before being roomed in ascu. Pt very SOB when back to wheelchair. States she wears O2 chronic at 2.5L O2 applied at 3L at this time pulse oc up to 99% with 3L This note was completed by: Sigrid Bob documented in this encounterOhiohealth Southeastern [facility] Center04-25-2022 History and physical note * Dario Gregg MD - 12/18/2021 12:00 PM EDT Images from the original note were not included. HISTORY AND PHYSICAL Tamiko Diamond 1950 REFERRING PHYSICIAN: Self CHIEF COMPLAINT: stomach issues, diarrhea, and loose stool every day (for last 3 weeks, today burning in middle of chest, while in bed.) HPI: The patient is a 70 year old female who presents to discuss endoscopy. Patient was previously evaluated in office on 06/23/21. Per my office note at that time: The patient is a 70 year old female referred for evaluation of rectal bleeding. Tamiko notes she has recently been on narcotic pain medication following back surgery which caused constipation. Since then she has noted intermittent episodes of bright red rectal bleeding with wiping after a bowel movement. Denies any dark blood, clots, dark stools or blood mixed within the stools. She does note some recent weight gain but attributed this to eating more, staying inside and not being active. Deniesfamily history of colon issues. The patient notes no upper GI complaints. Tamiko has undergone prior endoscopy. Most recent colonoscopy 07/13/[address] Gregg with no concerning findings at that time. Patient's past medical history significant for recent back surgery as noted above, PE which occurred after knee surgery earlier this year, hematuria for which she is following with her PCP Dr. Madsen, diabetes, hypertension, CAD, past history of lung cancer. Patient is maintained on Eliquis currently. Patient had declined repeat colonoscopy at that time. She was scheduled for anoscopy with possible hemorrhoidal banding with Dr. Gregg for 08/03/21. In the interim between those appointments, patient was admitted to [facility] with chest pain and underwent cardiac catheterization and stent placement. Patient notes she is currently in the process of trying to set up cardiac rehab through [facility]. Tamiko notes a recent history of loose stools and fecal urgency x a few weeks. She notes she will have around 7 loose stools per day. Associated symptoms include nausea and epigastric pain as well asreflux. She denies any recent travel, changes in diet or medications, or sick contacts. Denies any sinus or respiratory symptoms. Patient denies any change in bowel habits, weight changes, black tarry stools or abdominal pain. Patient states that her previous complaint of blood in the stools has completely resolved since her hemorrhoidal banding which was done By Dr. Gregg on 08/03/21. PAST MEDICAL HISTORY PAST MEDICAL HISTORY Diagnosis Date Abnormal finding on Pap smear, ASCUS 12/2010 CAD (coronary artery disease) had 65 % blockage in RCA but normal ischemia. Cancer of lung (HCC) squamous cell Chronic airway obstruction, not elsewhere classified Compression fracture of body of thoracic vertebra (HCC) 04/08/2021 Depression Diabetes (HCC) Essential hypertension 05/13/2019 Generalized osteoarthrosis, unspecified site GERD (gastroesophageal reflux disease) Irritable bowel syndrome Irritable bowel Leukocytosis 12/15/2020 Myalgia and myositis, unspecified Fibromyalgia (myalgia and myositis) Obstructive sleep apnea wears BiPap Osteoporosis, unspecified 2 dorsal spine compression fractures 03/2021. Other extrapyramidal disease and abnormal movement disorder Pure hypercholesterolemia Restless leg Rt VATS Wedge, then RULobectomy 10/20/2013 Patient is an active smoker of 75 pack years, presented with a 1.4 cm spiculated, cavitary lesion in the right upper lung. PET scan showed increased uptake in the lesion with an SUV 5.5 and no evidence of hilar, mediastinal or extrathoracic disease. On 10/22/13, Dr. Calvert performed right VATS, right upper lobectomy, and lymphadenectomy (R2, R4, 7). Plan:: -Pain management -Out of bed, frequent ambulation -cough/deep breathe, acapella -regular diet - respiratory therapy- Desat study for home oxygen . Tobacco abuse 10/23/2013 Unspecified asthma(493.90) adult only PAST SURGICAL HISTORY PAST SURGICAL HISTORY Procedure Laterality Date ARTHRS KNE SURG W/MENISCECTOMY MED/LAT W/SHVG Right 02/11/2015 Right knee arthroscopic medial meniscectomu with medial chondroplasty DELIVERY ONLY , low transverse COLONOSCOPY FLX DX W/COLLJ SPEC WHEN PFRMD 2006 Colonoscopy, normal COLONOSCOPY FLX DX W/COLLJ SPEC WHEN PFRMD 10/18/2015 COLONOSCOPY FLX DX W/COLLJ SPEC WHEN PFRMD 07/13/2019 Colonoscopy COLPOPEXY VAGINAL EXTRAPERITONEAL APPROACH EGD TRANSORAL BIOPSY SINGLE/MULTIPLE 10/18/2015 ESOPHAGOGASTRODUODENOSCOPY TRANSORAL DIAGNOSTIC 1980s EGD HEMORRHOID;BAND LIGAT, SNGL/MUL 07/2021 PAST SURGICAL HISTORY OF 03/20/2013 left knee arthroscopy with meniscus repair PAST SURGICAL HISTORY OF 2013 right upper lobectomy- cancer PAST SURGICAL HISTORY OF 01/24/2015 nerve block intercostal with c-arm REPAIR RECTOCELE SEPARATE PROCEDURE THORACOSCOPY SURG LOBECTOMY Right 10/23/2013 lEkin Calvert MD. RUL TOTAL ABDOMINAL HYSTERECT W/WO RMVL TUBE OVARY Hysterectomy, CRISTY with rectocele CURRENT MEDICATIONS Current Outpatient Medications Medication Sig losartan (COZAAR) 100 mg tablet Take 1 tablet by mouth once daily. potassium chloride (K-TAB) 10 mEq tablet Take 1 tablet by mouth once daily. atorvastatin (LIPITOR) 80 mg tablet Take 1 tablet by mouth daily at bedtime. clopidogrel (PLAVIX) 75 mg tablet Take 1 tablet by mouth once daily. traZODone (DESYREL) 100 mg tablet Take by mouth. tiZANidine (ZANAFLEX) 4 mg tablet Take 4 mg by mouth. sertraline (ZOLOFT) 50 mg tablet Take 1/2 tab once a day orally for one week then 1 tab once a day furosemide (LASIX) 20 mg tablet Take 1 tablet by mouth once daily. rOPINIRole (REQUIP) 2 mg tablet Take 1 tablet by mouth daily at bedtime. umeclidinium (INCRUSE ELLIPTA) 62.5 mcg/actuation inhaler Inhale 1 Puff as instructed once daily. fluticasone-vilanterol (BREO ELLIPTA) 100-25 mcg/dose inhaler Inhale 1 Inhalation as instructed once daily. pramipexole (MIRAPEX) 1.5 mg tablet Take 1 tablet by mouth daily at bedtime. Lancets lancets Test blood sugar(s) bid times daily. Dx: Type 2 DM - Controlled E11.9 Insulin: Yes blood sugar diagnostic (BLOOD GLUCOSE TEST) test strip Test blood sugar(s) 2 times daily. Dx: Type 2 DM - Controlled E11.9 Insulin: No Ibandronate (BONIVA) 150 mg tablet Take 1 tablet by mouth once every month. Take in the am with full glass of water on an empty stomach; do NOT eat or lie down for next 30 minutes. ipratropium-albuterol (DUONEB) 0.5 mg-3 mg(2.5 mg base)/3 mL nebu Inhale 3 mL as instructed every 4hours as needed for wheezing/shortness of breath. PULSE OXIMETER [facility] Use to check oxygen saturation. calcium-cholecalciferol, D3, (OSCAL+D 250) 250-125 mg-unit per tablet Take 1 tablet by mouth twice daily. OXYGEN, HOME THERAPY, 2 L/min by Nasal Cannula route daily at bedtime. (Patient taking differently:2.5 L/min by Nasal Cannula route daily at bedtime. ) COMPOUNDED PRESCRIPTION Bipap mask and tubing. COMPOUNDED PRESCRIPTION Adjust bilevel PAP to setting of 16/10 cmH2O with heated humidification COMPOUNDED PRESCRIPTION Initiate BiPAP @ 14/8 cm of water with humidification. Mask (per patient preference) optional chin strap (if indicated) , filters, tubing, humidifier and lifetime supplies. Dx. SHANA 327.23 diclofenac (VOLTAREN ARTHRITIS PAIN) 1 % topical gel Apply 4 g to affected area four times daily. (Patient taking differently: Apply 4 g to affected area as needed. ) nicotine (NICODERM) 14 mg/24 hr Apply 1 Patch as directed once daily. (Patient not taking: Reportedon 09/14/2021 ) cyclobenzaprine (FLEXERIL) 10 mg tablet Take 1 tablet by mouth three times daily as needed for muscle spasm (Pain from coughing) for up to 30 doses. (Patient not taking: Reported on 09/14/2021 ) pantoprazole DR (PROTONIX) 40 mg tablet Take 1 tablet by mouth once daily. (Patient not taking: Reported on 09/14/2021 ) Current Facility-Administered Medications Medication Dose Route Frequency perflutren lipid microspheres 1.3 mL in NaCl (PF) 0.9% 10 mL injection (DEFINITY) INTRAVENOUS DIRECTED PRN sodium chloride 0.9 % (flush) 10 mL (BD POSIFLUSH) 10 mL INTRAVENOUS DIRECTED PRN ALLERGIES: Neurontin [Gabapentin], Avelox [Moxifloxacin Hcl], Wellbutrin [Bupropion Hcl], and Bupropion PERSONAL HISTORY: SOCIAL HISTORY Social History Tobacco Use Smoking status: Former Smoker Packs/day: 1.00 Years: 52.00 Pack years: 52.00 Types: Cigarettes Start date: 1962 Quit date: 04/24/2021 Years since quittin.3 Smokeless tobacco: Never Used Tobacco comment: wearing patch Vaping Use Vaping Use: Some days Substances: Nicotine, Flavoring Substance Use Topics Alcohol use: Yes Comment: once a year Drug use: No FAMILY HISTORY: FAMILY HISTORY FAMILY HISTORY Problem Relation Age of Onset Diabetes Father Heart disease Father Heart Father Colon Polyps Father Breast Cancer Sister Diabetes Sister Cancer Brother Prostate and throat cancer Heart disease Brother Stroke Brother Hypertension Brother Heart Brother Diabetes Brother No Ocular Disease No Family History REVIEW OF SYMPTOMS: The review of systems data was entered by the nurse and reviewed by vt Nursing Notes: Sadaf CallejasBERNARDO 09/14/2021 3:52 PM Signed REVIEW OF SYSTEMS: General: The patient NOTES fatigue, denies weight loss, NOTES weight gain, denies feeling hot, and denies feelings of cold. Eyes: The patient denies glaucoma, denies eye injury/surgery, wears glasses or contacts. Ear/Nose/Throat: The patient denies allergies, denies hayfever, denies ear infections, and denies bloody noses. Cardiovascular: The patient denies chest pain, NOTES heart disease, NOTES high blood pressure,denies cardiac stent, denies prior heart attack, denies irregular heart beat, denies high cholesterol, NOTES poor circulation, denies heart failure, other cardiac issues, denies claudication, NOTES cold feet, denies peripheral arterial stent. Respiratory: The patient denies tuberculosis, NOTES pneumonia, denies frequent cough, NOTES pulmonary embolism, NOTES shortness of breath, and denies coughing up blood. Gastrointestinal: The patient denies difficulty swallowing, denies acid reflux, denies ulcers, denies vomiting, denies jaundice/hepatitis, denies gallbladder problems, denies black or tarry stools, denies hemorrhoids, NOTES bleeding from rectum, denies diverticulitis, NOTES constipation, denies diarrhea, denies loss of stool control, and denies hernias. Kidney/Bladder: The patient denies kidney stones, NOTES urine infections, and denies bloody urine. Skin: The patient denies a history of skin cancer, denies bleeding/changing moles, and denies a history of skin rash. Neurologic: The patient denies a history of epilepsy/convulsions, denies headaches, NOTES head/spinal injuries, and denies stroke/TIA. Psychiatric: The patient denies psychiatric medications, denies depression, and denies voices, denies substance abuse. Endocrine: The patient denies thyroid disorders, NOTES diabetes, and denies hormonal problems. Hematologic: The patient NOTES a history of bruising, denies bleeding, and denies anemia, NOTES blood clots. Infections: The patient denies a history of measles and mumps, denies rheumatic fever, and denies sexually transmitted diseases. Musculoskeletal: The patient NOTES back pain/injury, NOTES back problems, denies sciatica, NOTES knee/foot trouble, NOTES arthritis, or denies gout. When was patient's last Mammogram screening? 09/25/2020 Last Colonoscopy: 07/13/2019 Corrections to above ROS: The patient states rectal bleeding has RESOLVED since hemorrhoid banding on 08/03/21 and DENIES this today. She NOTES diarrhea, fecal urgency and nausea I have confirmed and edited as necessary, the PFSH and ROS obtained by others. Elena Ibarra PA-C PHYSICAL EXAMINATION: General: The patient is 70 year old female, well nourished, well hydrated in no acute distress. Thepatient is oriented to time, place, and person. VITALS: Blood pressure 148/78, pulse 96, temperature 36.6 C (97.9 F), height 160 cm (5' 3 ), .9 kg (191 lb 9.6 oz), SpO2 98 %. Body mass index is 33.94 kg/m . HEENT: Normal cephalic, ataumatic, pupils are equally round, sclera are anicteric, mucous membranesare moist, oropharynx is clear. Neck has no masses, asymmetry or lymphadenopathy. Respiratory: Clear to auscultation and percussion. Normal respiratory excursion and pattern. Cardiac: Examination is regular rate and rhythm. Normal S1/S2 Abdominal exam: Soft, nontender, with no palpable masses. No hepatosplenomegaly. No palpable hernias. Extremities: no clubbing, cyanosis or edema. No adenopathy. LABORATORY VALUES: As Noted RADIOLOGIC STUDIES: As Noted Assessment IMPRESSION: change in bowel habits, nausea, fecal urgency, loose stools. Recent cardiac catheterization and stent placement PLAN: I have reviewed my findings with the surgeon. Dr. Gregg also evaluated the patient and participated in development of the following plan. Will plan for upper and lower endoscopy. We discussedthe risks and benefits of the planned endoscopy. I have informed the patient that complications canoccur including failure to complete the endoscopy and perforation. The patient had the opportunity to ask questions concerning the planned endoscopy. My staff has also explained the procedure to the patient in understandable terms and has given the patient printed material concerning the procedure.The patient freely consents to surgery. The patient was offered a surgery/procedure at a [facility] facility. I have counseled the patient regarding the risk of exposure to and/or potential harm posed by the COVID-19 virus with having a surgery/procedure at this time versus the risk of delaying the surgery/procedure. It is not possible to know either the risk of delaying the surgery or procedure or chance of getting an infection with perfect accuracy, but a joint decision was made between the patient and myself to proceed at this time with endoscopy. I plan to use Golytely bowel preparation The patient has medical comorbidities for which we will plan for the procedure to be performed under Monitored Anesthetic Care. Patient will need cardiac clearance and PACC visit Diagnoses: (R19.4) Change in bowel habits (primary encounter diagnosis) (R19.5) Loose stools (R15.2) Fecal urgency (R11.0) Nausea I spent a total of 35 minutes on the date of the service which included preparing to see the patient, [id number] patient care, completing clinical documentation, obtaining and/or reviewing separately obtained history, performing a medically appropriate examination, counseling and educating the pat ient/family/caregiver, ordering medications, tests, or procedures and communicating with other HCPs(not separately reported). Elena Ibarra PA-C * Dario Gregg MD - 12/18/2021 11:21 AM EDT UPDATED PROCEDURAL SEDATION HISTORY AND PHYSICAL EXAMINATION SERVICE DATE: 12/18/2021 SERVICE TIME: 11:29 AM PHYSICAL EXAM MUST BE COMPLETED ON ADMISSION PROCEDURE: Procedure Indications: The History and Physical (completed in the past 30 days) has been reviewed and the patient has beenexamined. The contents accurately reflect the patient's condition with the following additions or revisions since the H&P was completed. ASA Class: ASA Class:: Patient with severe systemic disease Examination indicates no changes. AIRWAY: Airway Visualization of Uvula: Yes Mouth opening greater than 2 fingerbreadths: Yes Neck Full Range of Motion: Yes LUNGS: Lungs clear to auscultation CARDIAC: Regular rhythm,Regular rate Provisional Diagnosis/Treatment Plan: diarrhea, change in BM rectal bleeding - EGd and Colonoscopy SEDATION GOAL: Moderate This H&P can be found in the attached. SIGNATURE: Dario Gregg MD PATIENT NAME: Tamiko Diamond DATE: December 18, 2021 TIME: 11:29 AM documented in this encounterOhiohealth Southeastern [facility] Center04-18-2022 Miscellaneous Notes* Telephone Encounter - Nivia Heath APRN.[employer] - 12/11/2021 2:38 PM EDT Noted. Nivia Heath APRN.[employer] * Telephone Encounter - Maria D Wiggins LPN - 12/11/2021 2:00 PM EDT FYI: Stephany with [facility] calling with an update on pt. Pt's goals for OT have been met and she is being d/c today Maria D Wiggins LPN documented in this encounterOhiohealth Southeastern Medical Center04-11-2022 Miscellaneous Notes* Addendum Note - Heladio Madsen MD - 12/04/2021 5:19 PM EDT Addended by: HELADIO MADSEN on: 12/04/2021 05:19 PM Modules accepted: Orders documented in this encounterOhiohealth Southeastern Medical Center04-11-2022 History of Present illness Narrative* Argenis Jewell RN - 12/04/2021 5:08 PM EDT PRIMARY CARE COORDINATION QUICK NOTE Provider Action/FYI Spoke to patient, relayed message below, pt verbalized understanding. Pt states she is willing to try voltaren gel, pharmacy verified. Thank you Patient identified by name and date . Argenis Jewell RN Border [employer] Agent * Heladio Madsen MD - 12/04/2021 4:24 PM EDT We would have to see her back for that. The next step would be things like opiates which are addictive and rarely prescribed. She could try something like voltaren gel. Willing to try? * Argenis Jewell, RN - 12/04/2021 3:50 PM EDT INSIGHT CDM TELEPHONIC OUTREACH Provider Action/FYI: Pt reports she is doing good, states she continues to experience left shoulder pain. Pt was seen 11/07/21, xray ordered, xray was negative, no acute process . Pt states her home care nurse and physical therapist examined her and stated she had shoulder separation. Pt describes pain as a toothache . Pt has been taking otc pain reliever with no relief, inquiring if pcp would be able to prescribe her something for the pain until she is seen by ortho on 12/22/21 Pt aware message will be sent to pcp for review. Contact made with patient: Yes Patient identified by name and . Discussed care with patient It s nice talking to you again. As a reminder, this is our bi-weekly check-in where I will be asking you questions about your health. This will only take a few minutes of your time. Is this a good time? Yes Symptoms What Chronic Disease(s) does the patient have: COPD Do you check your blood pressures at home? No Do you have new or worse shortness of breath with activity? No Do you have new or worsening cough? No Do you have new or worsening wheezing? No Do you need to use your rescue (Albuterol) inhaler or nebulizer more often than normal? No Are you having any other symptoms that your PCP needs to know about? No Symptom Escalation The patient required an escalation for symptom(s)? No Medications Do you have any questions about taking your medication or which medications you should be on? No Do you need any medication refills at this time, including any of the medications you might take only when needed? No Social We would like to make sure you have what you need so that your basic needs are met- including your personal safety, food, housing and medications? Would you like to speak with a social work restaurant team member to help give you support for any of these needs? No It can be normal to feel anxious or down during a time like this. Would you like to talk to a mental health professional about how you have been feeling? No Closing Thank you for taking the time to talk with me today. We want to work with you to ensure that we arekeeping your medical condition(s) well-controlled and to keep you healthy and out of the doctor's office or hospital. It s also not too late for me to sign you up for automated weekly questionnaires through [employer]. This is an easy way for us to stay connected each week. Are you interested? No, I understand. We can always sign you up in the future if you change your mind. Just as a reminder, will continue to call you every other week to check in on your health. Our calls should take 10-15 minutes or less. Remember, if you have concerns in between our calls, please call your PCP's office right away. Thank you. Enter next patient outreach date for two weeks on the same day of the week as today in the Track PtOutreach and End outreach. documented in this encounterOhiohealth [facility] Center04-08-2022 Miscellaneous Notes* Telephone Encounter - Nanda Lundberg LPN - 12/01/2021 3:31 PM EDT Addendum office note faxed to [facility]. * Telephone Encounter - Nivia Heath APRN.CNP - 12/01/2021 1:22 PM EDT Note addended. Can please fax back, as requested. Nivia Heath APRN.CNP * Telephone Encounter - Elena Castellano RN - 11/30/2021 3:21 PM EDT Ana Paula from [facility] called in today and said they are trying to help the Pt get a non-invasive ventilator through her insurance. She states Since provider Nivia Gyatan NP ordered this she would haveto go back and addend one of her notes and add in about the Pt needing the non-invasive ventilator.She has the notes from 11/07/21 appointment and said this would be a good one to addend because it talks all about her breathing. An example of what the note would need to say is: Due to the patient having COPD and chronic respiratory failure the patient requires a non-invasive ventilator to improve hypoxia and her daily activities of daily living. Bipap has proven to be ineffective. She said that you could add what ever you want, but it has to have the diagnoses and that Bipap failed. Once note has been addended please fax to # [phone]. * Telephone Encounter - Lindsey You LPN - 11/29/2021 5:50 PM EDT TC to pt. She has been on O2 for about 2 weeks now. And it was through [facility]. Lindsey You LPN * Telephone Encounter - Nivia Heath APRN.CNP - 11/29/2021 5:33 PM EDT Can we please fax form back to [facility] (In Marlon's box). We ordered home O2 on 11/07. Was patient able to receive this? Nivia Heath APRN.AWA documented in this encounterOhiohealth Southeastern Medical Center04-05-2022 Miscellaneous Notes* Telephone Encounter - Argenis Kramer Ma - 11/28/2021 11:20 AM EDT Pt notified via [employer]. Argenis Kramer Ma * Telephone Encounter - Marlon Sung LPN - 11/27/2021 4:09 PM EDT TC to pt, left message to return call to office. Marlon Sung LPN * Telephone Encounter - Heladio Madsen MD - 11/27/2021 4:02 PM EDT Potassium is now borderline low. Lets just have her eat high potasium containing foods and recheck potassium in one to two weeks documented in this encounterOhiohealth Southeastern Medical Center04-04-2022 Instructions* Patient Instructions* Kathleen Long APRN.[employer] - 11/27/2021 1:50 PM EDT PATIENT PREOPERATIVE INSTRUCTIONS Dario Gregg MD has scheduled you for your procedure at this surgery center: [facility]: [phone] -- [address] [id number]. Please read below carefully for your personalized instructions. Dietary Restrictions: - Follow bowel prep instructions: clear liquids need to be stopped 2 hours prior to schedule arrival at facility Medications: Unless instructed differently below, stay on all of your medications until your surgery. Approved medications to take the morning of surgery with a sip of water: Atorvastatin, Plavix, Breo, Duoneb, Pantoprazole, Sertraline, Incruse If you start any new medications after today's visit, please contact the surgeon's office. Blood Thinning Medications: - Stop NSAIDS (Ibuprofen, Advil, Aleve, Motrin, Celebrex, Mobic, etc.) 7 days before surgery, as directed by your surgeon. - Do NOT stop aspirin or other anticoagulants without consulting with your c 40a crew chief or prescribing physician. - Stop Vitamin E, ALL multi-vitamins, herbals and dietary supplements 7 days before surgery. - You may take Tylenol (Acetaminophen) or any of your pain medications that do not contain aspirin or NSAIDS as needed. Important Reminders: - If you use CPAP/BIPAP, bring the machine with you to the surgery center. - If you are prescribed inhalers for breathing, continue using them. - Candy, mints, and tobacco products are NOT permitted the morning of surgery. - Hearing aids, dentures and glasses may be worn the morning of surgery. - NO jewelry, body piercings, makeup, hairpins or contacts are to be worn the day of surgery. If you develop symptoms such as a fever, cold, or flu, or have other changes to your health within TWO DAYS of scheduled surgery or the morning of surgery, please contact the surgery center above. Personal Belongings: -Please have photo ID and insurance cards. -If you do not have a copy of advance directives on file with us, please bring a copy with you on the day of surgery. - Leave ALL valuables and money at home or with family members. For Outpatient Procedures: - YOU MUST HAVE A RESPONSIBLE MARKETING DEVELOPMENT SPECIALIST TAKE YOU HOME. A PAEDIATRICIAN OR MANAGER DEVELOPMENT CANNOT BE MADE A RESPONSIBLE MARKETING DEVELOPMENT SPECIALIST. - We recommend that a responsible person stays with you overnight to take care of you. - You cannot stay in a hotel alone after outpatient surgery. You will not be permitted to have yoursurgery, if you do not have someone to take care of you. Arrival Time for Surgery: - The Surgery Center or hospital where you are having surgery will call the afternoon before surgery (or Saturday for Saturday surgery) with a scheduled arrival time. - If you have not heard by 4 pm, please contact the surgery center above. Please be aware that emergency situations arise, which may delay or change your surgical time. If this happens, we will notify you as soon as possible and regret any inconvenience. If you already have an Advance Directive, please fax a copy to [phone] or email to for it to be added to your chart. If you do not have an Advance Directive, you can find the appropriate form and more information at [email or web address]. We recommend that youcomplete the Advance Directive form found on the website and bring it with you the day of your surgery. It can be witnessed and scanned into your chart that day. Kathleen Long APRN.AWA documented [facility] History and physical note * Kathleen Long APRN.CNP - 11/27/2021 1:44 PM EDT HISTORY AND PHYSICAL EXAMINATION SERVICE DATE: 11/27/2021 SERVICE TIME: 1:44 PM PRIMARY CARE PHYSICIAN: Heladio Madsen MD REASON FOR VISIT: Tamiko Diamond is a 71 year old female who is scheduled for egd/colonoscopy at the request of Dr. Dario Gregg for consultation. My final recommendation will be communicated back to the requesting physician by way of shared medical record or letter. 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 Obesity, Class I, Bmi 30-34.9 Cad (Coronary Artery Disease) Essential Hypertension History of Colonic Polyps Leukocytosis Hyponatremia Controlled Type 2 Diabetes Mellitus Without Complication, Without Long-Term Current Use of Insulin (Hcc) History of Pulmonary Embolism Hypokalemia Acute Exacerbation of Chronic Obstructive Pulmonary Disease (Copd) (Hcc) Centrilobular Emphysema (Hcc) Compression Fracture of Body of Thoracic Vertebra (Hcc) Chest Pain Type 2 Diabetes Mellitus (Hcc) Chronic Pain Hemorrhoids Chronic Respiratory Failure (Hcc) Obesity, Class II, Bmi 35-39.9 Coronary Stent Patent COVID-19 Immunization Status COVID-19 VACCINE (Series Information) Completed 10/25/2021 Imm Admin: COVID-19 vaccine, age 12+ yr (PFIZER-BIONTECH - PURPLE TOP) 01/10/2021 Imm Admin: COVID-19 vaccine, age 12+ yr (PFIZER-BIONTECH - PURPLE TOP) 12/20/2020 Imm Admin: COVID-19 vaccine, age 12+ yr (PFIZER-BIONTECH - PURPLE TOP) CHIEF COMPLAINT: Pre-op exam HPI: SP is a 71 yo seen for PAC due to scheduled above surgery because of change in bowel habits. 09/14/2021 Elena Ibarra PA-C HPI: The patient is a 70 year old female who presents to discuss endoscopy. Patient was previously evaluated in office on 06/23/21. Per my office note at that time: The patient is a 70 year old female referred for evaluation of rectal bleeding. Tamiko notes she has recently been on narcotic pain medication following back surgery which caused constipation. Since then she has noted intermittent episodes of bright red rectal bleeding with wiping after a bowel movement. Denies any dark blood, clots, dark stools or blood mixed within the stools. She does note some recent weight gain but attributed this to eating more, staying inside and not being active. Deniesfamily history of colon issues. The patient notes no upper GI complaints. Tamiko has undergone prior endoscopy. Most recent colonoscopy 07/13/[address] Gregg with no concerning findings at that time. Patient's past medical history significant for recent back surgery as noted above, PE which occurred after knee surgery earlier this year, hematuria for which she is following with her PCP Dr. Mdasen, diabetes, hypertension, CAD, past history of lung cancer. Patient is maintained on Eliquis currently. Patient had declined repeat colonoscopy at that time. She was scheduled for anoscopy with possible hemorrhoidal banding with Dr. Gregg for 08/03/21. In the interim between those appointments, patient was admitted to [facility] with chest pain and underwent cardiac catheterization and stent placement. Patient notes she is currently in the process of trying to set up cardiac rehab through [facility]. Tamiko notes a recent history of loose stools and fecal urgency x a few weeks. She notes she will have around 7 loose stools per day. Associated symptoms include nausea and epigastric pain as well asreflux. She denies any recent travel, changes in diet or medications, or sick contacts. Denies any sinus or respiratory symptoms. Patient denies any change in bowel habits, weight changes, black tarry stools or abdominal pain. Patient states that her previous complaint of blood in the stools has completely resolved since her hemorrhoidal banding which was done By Dr. Gregg on 08/03/21. REVIEW OF SYSTEMS: General: No weight loss, malaise or fevers. Neurological: +RLS, on rx. No history of TIA's, stroke, NETWORKS SOFTWARE CONSULTANT tumor, impaired sensorium, hemiplegia, paraplegia or quadraplegia. No neurological symptoms or problems. Respiratory: +former smoker 1.5ppd/50 years Positive for: COPD (on rx and as needed), obstructive sleep apnea and CPAP/BiPAP compliant. Negative for: asthma, pneumonia within 6 weeks, tobacco use and URI < 2 weeks. Cardiovascular: 08/01/2021 Dr. Cardona Cardiovascular Testing: I reviewed personally. Echo 12/16/2020: - Exam indication: SOB - The left ventricle is normal in size. Left ventricular systolic function is normal. EF = 73 5% (2D biplane) Grade I left ventricular diastolic dysfunction. - The right ventricle is normal in size. Right ventricular systolic function is normal. - Estimated right ventricular systolic pressure is not reported due to an insufficient tricuspid regurgitation signal. Estimated right atrial pressure is 3 mmHg based on IVC assessment. - There is no patent foramen ovale as detected by Doppler. - Exam was compared with the prior echocardiographic exam performed on 03/27/19. There is no significant change. NM Cardiac stress 03/24/2021: 1. SPECT Perfusion Study: Normal. 2. There is no scintigraphic evidence for inducible ischemia. 3. No evidence of scarred myocardium. 4. Left ventricle is normal in size. The left ventricle systolic function is normal. 5. Right ventricle is normal in size. 6. This is a low risk scan. Gated Stress FBP LVEF % 64 EKG 07/18/2021: EKG shows normal sinus rhythm with no significant ST-T abnormalities and QTc interval is also normal IMPRESSION / RECOMMENDATIONS / PLAN: Encounter Diagnosis ICD-10-CM 1. Coronary artery disease involving [place] coronary artery of [place] heart without angina [id number] CARDIAC REHAB II OUTPT ([place], [place]) CBC BASIC METABOLIC PNL MAGNESIUM BLD 2. Essential hypertension I10 3. Pure hypercholesterolemia E78.00 4. Other emphysema (HCC) J43.8 5. SHANA (obstructive sleep apnea) G47.33 6. Tobacco use disorder F17.200 7. Obesity, Class II, BMI 35-39.9 E66.9 8. History of pulmonary embolism Z86.711 9. Coronary stent patent Z95.5 Coronary artery disease status post stent in June 2021. I will increase the dose of losartan 200 mg daily, I willing continue her on aspirin Plavix and atorvastatin for decreasing future coronaryartery risk. She is not on beta- ruthann because her heart rate is on the low side most of the time. I will refer the patient to cardiac rehab in [facility]. She should continue to use her inhalers. Shortness of breath is due to her pulmonary condition as she had right upper lobectomy in 2013 and has severe COPD also. She had a PFT done in April 2019 which showed severe obstructive pattern and cannot rule out restrictive lung disease also. I advised her to see her bottom turner at [facility] and continue taking inhalers Hypertension - The patients blood pressure on today's visit is 136/58. I will switch from Amlodipine to Losartan 50 mg twice daily. I suspect her leg swelling is due to the Amlodipine. I will order Furosemide 40 mg daily as needed for leg swelling. I will order potassium chloride 10 mEq. I advised the patient to limit salt intake. I will order labs CBC, Magnesium, BMP. Her hemoglobin has dropped gradually from 13.6-11.3 in last 4 months. I will recheck her CBC to see if it still low then the patient will have to go on iron supplementation. Patient is counseled and educated about the symptoms and treatment plan. I have evaluated the patient independently including history, ROS, and performed physical examination as well as reviewed his EKGs. Discussed patient's management with Caitlin Patino who served as a scribe to collaborate the management. Wiley Cardona M.D., [facility] Positive for: anticoagulation therapy (Plavix, ASA), CAD, DVT/PE (PE provoked by surgery 09/2020, txwith Eliquis), hyperlipidemia (on rx) and hypertension (on rx) Patient's last office visit with c 40a crew chief, [facility], The following tests and/or procedures were performed: cardiac stents. Negative for: arrhythmia, atrial fibrillation, chest pain, CHF, congenital heart defect, recent NV,murmur/valvular heart disease, open heart surgery and valve surgery. GI: SEE HPI Positive for: GERD (diet controlled) Negative for: abdominal pain, dysphagia, hepatitis, irritable bowel syndrome, inflammatory bowel disease, liver disease, nausea, pancreatitis, vomiting and ETOH >2 drinks/day. : No history of dysuria, frequency or incontinence, stones or chronic kidney disease. No difficulty urinating, nocturia > 1 time per night or hematuria. Positive for: urinary incontinence (ESTEBAN). 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 Endocrine: Positive for: diabetes mellitus. Patient's diabetes mellitus is controlled by diet. Negative for: hypothyroidism. Hematology: Positive for: bruises/bleeds easily and chronic anti-coagulation/platelet meds. Patient is on anti-coagulation/platelet medication(s): Aspirin and Plavix. Negative for: anemia and transfusion of at least 4 units within 72 hours prior to surgery. Oncology: +lung cancer s/p lobectomy 2013 denies chemo or XRT Psych: Positive for: depression (on rx). Musculoskeletal: +osteoporosis, on rx Positive for: back pain (receiving injections). Skin: Negative for lesions, rash and itching. PAST MEDICAL HISTORY Diagnosis Date Abnormal finding on Pap smear, ASCUS 12/2010 CAD (coronary artery disease) had 65 % blockage in RCA but normal ischemia. Cancer of lung (HCC) squamous cell Chronic airway obstruction, not elsewhere classified Compression fracture of body of thoracic vertebra (HCC) 04/08/2021 Depression Diabetes (HCC) Dislocation of left shoulder joint 09/2021 Essential hypertension 05/13/2019 Generalized osteoarthrosis, unspecified site GERD (gastroesophageal reflux disease) Irritable bowel syndrome Irritable bowel Leukocytosis 12/15/2020 Myalgia and myositis, unspecified Fibromyalgia (myalgia and myositis) Obstructive sleep apnea wears BiPap Osteoporosis, unspecified 2 dorsal spine compression fractures 03/2021. Other extrapyramidal disease and abnormal movement disorder Pure hypercholesterolemia Restless leg Rt VATS Wedge, then RULobectomy 10/20/2013 Patient is an active smoker of 75 pack years, presented with a 1.4 cm spiculated, cavitary lesion in the right upper lung. PET scan showed increased uptake in the lesion with an SUV 5.5 and no evidence of hilar, mediastinal or extrathoracic disease. On 10/22/13, Dr. Calvert performed right VATS, right upper lobectomy, and lymphadenectomy (R2, R4, 7). Plan:: -Pain management -Out of bed, frequent ambulation -cough/deep breathe, acapella -regular diet -respiratory therapy- Desat study for home oxygen . Tobacco abuse 10/23/2013 Unspecified asthma(493.90) adult only PAST SURGICAL HISTORY Procedure Laterality Date ARTHRS KNE SURG W/MENISCECTOMY MED/LAT W/SHVG Right 02/11/2015 Right knee arthroscopic medial meniscectomu with medial chondroplasty DELIVERY ONLY , low transverse COLONOSCOPY FLX DX W/COLLJ SPEC WHEN PFRMD 2005 Colonoscopy, normal COLONOSCOPY FLX DX W/COLLJ SPEC WHEN PFRMD 10/18/2015 COLONOSCOPY FLX DX W/COLLJ SPEC WHEN PFRMD 07/13/2019 Colonoscopy COLPOPEXY VAGINAL EXTRAPERITONEAL APPROACH EGD TRANSORAL BIOPSY SINGLE/MULTIPLE 10/18/2015 ESOPHAGOGASTRODUODENOSCOPY TRANSORAL DIAGNOSTIC EGD HEMORRHOID;BAND LIGAT, SNGL/MUL 07/2021 PAST SURGICAL HISTORY OF 03/20/2013 left knee arthroscopy with meniscus repair PAST SURGICAL HISTORY OF 2013 right upper lobectomy- cancer PAST SURGICAL HISTORY OF 01/24/2015 nerve block intercostal with c-arm REPAIR RECTOCELE SEPARATE PROCEDURE THORACOSCOPY SURG LOBECTOMY Right 10/23/2013 Elkin Calvert MD. RUL TOTAL ABDOMINAL HYSTERECT W/WO RMVL TUBE OVARY Hysterectomy, CRISTY with rectocele FAMILY HISTORY Problem Relation Age of Onset Diabetes Father Heart disease Father Heart Father Colon Polyps Father Breast Cancer Sister Diabetes Sister Cancer Brother Prostate and throat cancer Heart disease Brother Stroke Brother Hypertension Brother Heart Brother Diabetes Brother No Ocular Disease No Family History Social History Tobacco Use Smoking status: Former Smoker Packs/day: 1.00 Years: 52.00 Pack years: 52.00 Types: Cigarettes Start date: 1962 Quit date: 04/24/2021 Years since quittin.5 Smokeless tobacco: Never Used Tobacco comment: wearing patch Vaping Use Vaping Use: Former Substances: Nicotine, Flavoring Substance Use Topics Alcohol use: Yes Comment: once a year Drug use: No Prior to Admission medications as of 11/27/21 1341 Medication Sig Last Dose Taking furosemide (LASIX) 20 mg tablet Take 2 tablets by mouth once daily. Taking Yes meloxicam (MOBIC) 15 mg tablet Take 1 tablet by mouth once daily as needed for pain. With food. Taking Yes traZODone (DESYREL) 100 mg tablet Take 1 tablet by mouth daily at bedtime. Taking Yes atorvastatin (LIPITOR) 80 mg tablet Take 1 tablet by mouth daily at bedtime. Taking Yes clopidogrel (PLAVIX) 75 mg tablet Take 1 tablet by mouth once daily. Taking Yes losartan (COZAAR) 100 mg tablet Take 1 tablet by mouth once daily. Taking Yes tiZANidine (ZANAFLEX) 4 mg tablet Take 4 mg by mouth. Taking Yes sertraline (ZOLOFT) 50 mg tablet Take 1/2 tab once a day orally for one week then 1 tab once a day Taking Yes rOPINIRole (REQUIP) 2 mg tablet Take 1 tablet by mouth daily at bedtime. Taking Yes Lancets lancets Test blood sugar(s) bid times daily. Dx: Type 2 DM - Controlled E11.9 Insulin: Yes Taking Yes blood sugar diagnostic (BLOOD GLUCOSE TEST) test strip Test blood sugar(s) 2 times daily. Dx: Type 2 DM - Controlled E11.9 Insulin: No Taking Yes Ibandronate (BONIVA) 150 mg tablet Take 1 tablet by mouth once every month. Take in the am with full glass of water on an empty stomach; do NOT eat or lie down for next 30 minutes. Taking Yes ipratropium-albuterol (DUONEB) 0.5 mg-3 mg(2.5 mg base)/3 mL nebu Inhale 3 mL as instructed every 4hours as needed for wheezing/shortness of breath. Taking Yes PULSE OXIMETER [facility] Use to check oxygen saturation. Taking Yes pantoprazole DR (PROTONIX) 40 mg tablet Take 1 tablet by mouth once daily. Taking Yes calcium-cholecalciferol, D3, (OSCAL+D 250) 250-125 mg-unit per tablet Take 1 tablet by mouth twice daily. Taking Yes OXYGEN, HOME THERAPY, 2 L/min by Nasal Cannula route daily at bedtime. Patient taking differently: 2.5 L/min by Nasal Cannula route once daily. PRN through the day and atnight Taking Differently Yes COMPOUNDED PRESCRIPTION Bipap mask and tubing. Taking Yes COMPOUNDED PRESCRIPTION Adjust bilevel PAP to setting of 16/10 cmH2O with heated humidification Taking Yes COMPOUNDED PRESCRIPTION Initiate BiPAP @ 14/8 cm of water with humidification. Mask (per patient preference) optional chin strap (if indicated) , filters, tubing, humidifier and lifetime supplies. Dx. SHANA 327.23 Taking Yes diclofenac (VOLTAREN ARTHRITIS PAIN) 1 % topical gel Apply 4 g to affected area four times daily. Patient taking differently: Apply 4 g to affected area as needed. nicotine (NICODERM) 14 mg/24 hr Apply 1 Patch as directed once daily. Patient not taking: Reported on 09/14/2021 cyclobenzaprine (FLEXERIL) 10 mg tablet Take 1 tablet by mouth three times daily as needed for muscle spasm (Pain from coughing) for up to 30 doses. Patient not taking: Reported on 11/27/2021 Not Taking umeclidinium (INCRUSE ELLIPTA) 62.5 mcg/actuation inhaler Inhale 1 Puff as instructed once daily. fluticasone-vilanterol (BREO ELLIPTA) 100-25 mcg/dose inhaler Inhale 1 Inhalation as instructed once daily. pramipexole (MIRAPEX) 1.5 mg tablet Take 1 tablet by mouth daily at bedtime. Medication Comments documented by Kalie Ngo RPh on 03/27/2021 at 1657. 03/27/21 The medications are managed by this patient by: PATIENT Kalie Ngo RPh ALLERGIES Allergen Reactions Neurontin [Gabapent* Mental Status Change Slurred speech, It was like I was drunk. No seizures. Avelox [Moxifloxaci* Rash Wellbutrin [Bupropi* Hives, Itching Bupropion Hives Objective PHYSICAL EXAM: General: alert and oriented (x3) and healthy appearance. Pertinent negatives noted - not distressed. Skin: normal color, no rash or lesions. HEENT: EOM intact and pupils equal round. Pertinent negatives noted - no carotid bruit. Cardiovascular: regular rate and rhythm, normal S1 and S2, no rub, murmurs, or gallop. Respiratory: normal breath sounds, no wheezes or crackles. No chest wall deformity or tenderness. Abdomen: soft. Pertinent negatives noted - not tender. Extremities: no deformity, no edema or tenderness, no joint swelling or clubbing. Neurological: normal cognition and motor skills. Gait normal. No weakness or sensory deficit. PAIN ASSESSMENT: VITALS: BP 150/82[Monitors BP occasionally[ Pulse 76 Temp (Src) 97.4 (Temporal) Resp 18 Ht 5' 3 (1.60m) Wt 192 lb (87.1kg) SpO2 96% BMI 34.02 kg/(m^2). Diagnostic tests reviewed for today's visit: Lab Value Units Date High Low HB 12.5 g/dL 11/07/2021 15.5 11.5 HB 12.4 g/dL 08/03/2021 15.5 11.5 HCT 40.6 % 11/07/2021 46.0 36.0 HCT 37.9 % 08/03/2021 46.0 36.0 WBC 10.44 k/uL 11/07/2021 11.00 3.70 WBC 9.37 k/uL 08/03/2021 11.00 3.70 PLT 369 k/uL 11/07/2021 400 150 PLT 339 k/uL 08/03/2021 400 150 NA 141 mmol/L 11/07/2021 144 136 NA 137 mmol/L 08/03/2021 144 136 K 5.2 mmol/L 11/07/2021 5.1 3.7 K 4.3 mmol/L 08/03/2021 5.1 3.7 GLUC 119 mg/dL 11/07/2021 99 74 GLUC 105 mg/dL 08/03/2021 99 74 BUN 16 mg/dL 11/07/2021 21 7 BUN 14 mg/dL 08/03/2021 21 7 CREAT 0.61 mg/dL 11/07/2021 0.96 0.58 CREAT 0.59 mg/dL 08/03/2021 0.96 0.58 PTSEC No results within date range. INR No results within date range. APTT No results within date range. ALT 11 U/L 11/07/2021 38 7 ALT 12 U/L 07/14/2021 38 7 AST 15 U/L 11/07/2021 35 13 AST 15 U/L 07/14/2021 35 13 TBILI 0.2 mg/dL 11/07/2021 1.3 0.2 TBILI 0.3 mg/dL 07/14/2021 1.3 0.2 TSH 2.690 uU/mL 07/15/2021 4.200 0.270 Lab Value Units Date High Low HCGQT No results within date range. UHCG No results within date range. HCG, BODY* No results within date range. Lab Value Units Date High Low ABORHD No results within date range. ABSCREEN No results within date range. Hemoglobin A1C (%) Date Value 11/07/2021 6.7 07/14/2021 6.2 02/07/2021 6.0 04/22/2020 6.0 03/13/2019 6.1 07/01/2018 6.0 Recent Results (from the past 8760 hour(s)) ECG COMPLETE Collection Time: 07/18/21 7:34 AM Result Value Ventricular Rate 77 Atrial Rate 78 P-R Interval 229 QRS Duration 93 QT Interval 431 QTC Calculation (Bazett) 488 Calculated P [place] 52 Calculated R [place] 40 Calculated T [place] 21 Impression Sinus rhythm Prolonged NM interval Borderline T abnormalities, anterior leads Borderline prolonged QT interval Abnormal ECG Confirmed by JUVENAL LAGUERRE M.D. ([id number]) on 07/25/2021 10:57:45 AM Recent Results (from the past 65345 hour(s)) ECHO Collection Time: 12/16/20 8:23 AM Impression CONCLUSIONS: - Exam indication: SOB - The left ventricle is normal in size. Left ventricular systolic function is normal. EF = 73 5% (2D biplane) Grade I left ventricular diastolic dysfunction. - The right ventricle is normal in size. Right ventricular systolic function is normal. - Estimated right ventricular systolic pressure is not reported due to an insufficient tricuspid regurgitation signal. Estimated right atrial pressure is 3 mmHg based on IVC assessment. - There is no patent foramen ovale as detected by Doppler. - Exam was compared with the prior echocardiographic exam performed on 03/27/19. There is no significant change. Assessment COPD (chronic obstructive pulmonary disease) ([facility]) Assessment: moderate COPD, stable on daily inhaler steroids and nebulizer tx as needed Restless leg syndrome Assessment: controlled on rx SHANA (obstructive sleep apnea) Assessment: uses BIpap with oxygen at night CAD (coronary artery disease) Assessment: non-obstructing, on statin therapy. Normal stress test 04/2019, denies CP, palpitations,or sob Chronic respiratory failure (HCC) Assessment: oxygen therapy at night, following pulmonary 2019 spirometry IMPRESSION: The flow volume demonstrates an obstructive pattern. Spirometry indicates severe obstruction. The reduced FVC may be due to obstruction: however concurrent restriction is not excluded. Lung volumes are suggested for clarification if c linically indicated. Electronically Signed On 05-07-2019 15:26:19 EDT by Mirza Maneul Controlled type 2 diabetes mellitus without complication, without long-term current use of insulin (FORMERLY [facility]) Assessment: diet controlled Hemoglobin A1C (%) Date Value 11/07/2021 6.7 07/14/2021 6.2 Coronary stent patent Assessment: hx, 06/2021, on Plavix and ASA therapy Essential hypertension Assessment: controlled on rx Last 14 BP Last 14 Encounter BP Readings: Date: BP: 11/27/2021 150/82[Monitors BP occasionally[ 11/07/2021 114/72 09/14/2021 148/78 08/01/2021 136/58 07/17/2021 127/48 07/14/2021 146/58 07/10/2021 135/75 06/23/2021 140/78 06/21/2021 142/82 06/08/2021 138/80 05/05/2021 152/72 04/08/2021 136/70 04/05/2021 144/82 03/20/2021 151/57 History of pulmonary embolism Assessment: provoked by surgery 09/2020, tx with Eliquis x3 mos Hypokalemia Assessment: on rx, rechecking level today Potassium Date Value Ref Range Status 11/07/2021 5.2 (H) 3.7 - 5.1 mmol/L Final 08/03/2021 4.3 3.7 - 5.1 mmol/L Final 07/18/2021 3.8 3.5 - 5.0 mmol/L Final Lung cancer (HCC) Assessment: s/p right VATS upper lobectomy 09/2013 Obesity, Class I, BMI 30-34.9 Assessment: Body mass index is 34.01 kg/m . Osteoporosis Assessment: on rx PURE HYPERCHOLESTEROLEM Assessment: on rx Tobacco use disorder Assessment: 1.5ppd/50 years, +COPD METS: Climb a flight of stairs or walk up a hill (5.50 METs) DASI Score: 5.5; Patient denies any chest pain or undue shortness of breath with the above physicalactivity. Clinical Frailty Scale: 3. Well, with treated comorbid disease ASA Class: 3 ANESTHESIA FINDINGS: Intubation History: No history of difficult intubation Significant Anesthesia Considerations: none Airway History: No history of difficult airway [id number] Score: Age: 65-74 Sex: Female CHF history: No Hypertension history: Yes Stroke/TIA/thromboembolism history: Yes Vascular disease history: Yes Diabetes history: Yes Score: 7 I - PHYSICAL EVALUATION AIRWAY Tracheostomy tube not present Mallampati: II. TM distance: >3 FB. Neck ROM: full ROM without neurological symptoms. Mouth opening: adequate. Short neck: no. Thick neck: no DENTAL Dentures, upper: complete. Dentures, lower: complete. II - ANESTHESIA PLAN ASA Score: 3 Anesthetic Plan: other Anesthetic plan additional comments: *PACC/TCI - anesthesia choice. Informed Consent Anesthetic risks, benefits, alternatives, personnel and consent discussed: yes. Patient / Responsible Libertarian agrees to proceed: yes Patient / Surrogate agrees to blood products: blood products not planned Prepared for Surgery: optimally prepared for surgery. CONSULTS: Patient does not require consults for optimization at this time The Following Tests/Procedures Have Been Initiated: No orders of the defined types were placed in this encounter. Planned Anesthetic: other anesthesia choice Instructions Given to Patient: Instructions located in the after visit summary. Patient given verbal and written preop instructions and voices comprehension and compliance. SIGNATURE: Kathleen Long APRN.CNP PATIENT NAME: Tamiko Diamond DATE: November 27, 2021 TIME: 1:44 PM PAGER/CONTACT #: [facility] History of Present illness Narrative* Argenis Jewell RN - 11/21/2021 10:07 AM EDT INSIGHT CDM TELEPHONIC OUTREACH Provider Action/FYI: Contact made with patient: No - Left message Hello my name is Argenis Jewell RN your Flanging Roll Operator from the [facility] I am calling today for your bi- weekly check in. I am sorry I missed your call. I will reach out to you again tomorrow. (if the third call I will reach out to you again next week) Enter next patient outreach date for the following business day using the Track Pt Outreach. End outreach. documented in this encounter[facility]11-22-2021 NoteHNO ID: [id number] Author: Anayeli Lane RN Service: Care Management Author Type: Registered Nurse Type: Care Mgt Progress Note Filed: 07/17/2021 12:52 PM Note Text: CARE MANAGEMENT PROGRESS NOTE SERVICE DATE: 07/17/2021 SERVICE TIME: 1248 LOS: 0 days progress note Pt was transferred by ambulance to [facility] for cardiac catheterization. Will complete assessment if pt is returned to our facility. SIGNATURE: Anayeli Lane RN PATIENT NAME: Tamiko Diamond DATE: July 17, 2021 TIME: 12:48 PM PAGER/CONTACT #: [phone] [id number] NoteHNO ID: [id number] Author: Tyler Vinson MD Service: Hospital Medicine Author Type: Physician Type: Progress Notes Filed: 07/17/2021 6:30 PM Note Text: DEPARTMENT OF HOSPITAL MEDICINE PROGRESS NOTE SERVICE DATE: 07/17/2021 SERVICE TIME: 11:37 AM Hospital Medicine/Primary Attending: Tyler Vinson MD NIGHT AND WEEKEND COVERAGE: RAMSEY COVERAGE: : [phone], please page attending physician. Nights: [phone], please page [facility] Night coverage pager [phone]. Subjective INTERVAL HPI: Patient is still very SOB with exertion and SOB. Still some chest pain / pressure in the mid chest. No f/c/n/v. Plan for Leave of Absence to go to [place] for heart cath today. Current Facility-Administered Medications Medication Dose Route Frequency - enoxaparin 40 mg injection (LOVENOX) 40 mg SUBCUTANEOUS q 24 HR - NaCl 0.9% iv flush bag 20 mL INTRAVENOUS PRN - sodium chloride 0.9 % (flush) 3-5 mL (BD POSIFLUSH) 3-5 mL INTRAVENOUS q 12 H - ipratropium-albuterol 3 mL nebulizer solution (DUONEB) 3 mL INHALATION q 4 H while awake - atorvastatin 20 mg tab(s) (LIPITOR) 20 mg ORAL DAILY - losartan 50 mg tab(s) (COZAAR) 50 mg ORAL DAILY - pramipexole (MIRAPEX) tab(s) 1.5 mg 1.5 mg ORAL AT BEDTIME - rOPINIRole 2 mg tab(s) (REQUIP) 2 mg ORAL AT BEDTIME - amLODIPine 5 mg tab(s) (NORVASC) 5 mg ORAL DAILY - furosemide 20 mg tab(s) (LASIX) 20 mg ORAL DAILY - azithromycin 250 mg tab(s) (ZITHROMAX) 250 mg ORAL DAILY - [START ON 07/20/2021] buprenorphine 5 mcg/hour 1 Patch (BUTRANS) 1 Patch TRANSDERMAL 1/WK - HYDROmorphone 2 mg tab(s) (DILAUDID) 2 mg ORAL BID PRN - traZODone 100 mg tab(s) (DESYREL) 100 mg ORAL AT BEDTIME - tiZANidine 4 mg tab(s) (ZANAFLEX) 4 mg ORAL q 8 H PRN - sertraline 50 mg tab(s) (ZOLOFT) 50 mg ORAL DAILY - pantoprazole DR 40 mg tab(s) (PROTONIX) 40 mg ORAL DAILY - polyethylene glycol 3350 17 g packet (MIRALAX, GLYCOLAX) 17 g ORAL DAILY - senna 8.6 mg tab(s) (SENOKOT) 8.6 mg ORAL BID - hydrocortisone 2.5 % rectal cream (ANUSOL-HC) RECTAL BID - dextrose 40 % 15 g 15 g ORAL PRN Or - glucagon 1 mg injection 1 mg INTRAMUSCULAR PRN Or - dextrose 50% in water 25 mL syringe 12.5 g INTRAVENOUS PRN - insulin lispro injection (rapid acting) (HumaLOG) SUBCUTANEOUS w MEALS - nicotine 14 mg/24 hr 1 Patch (NICODERM) 1 Patch TRANSDERMAL DAILY - nicotine -- REMOVE patch OTHER DAILY - nicotine - verify patch OTHER q 8 H Objective PHYSICAL EXAM: BP 146/58 Pulse 77 Temp (Src) 97.7 (Oral) Resp 18 Wt 198 lb (89.8kg) SpO2 96% O2 Therapy: Nasal Cannula, Liters: 2.50 Physical Exam Performed GENERAL: Alert, no distress, cooperative, Obese SKIN: Skin color, texture, turgor normal. No rashes or lesions. HEAD/SINUSES: No significant findings EYES: PERRLA, EOMI LUNGS: Lungs clear to auscultation, Good diaphragmatic excursion CARDIAC: Normal S1 and S2; no rubs, murmurs, or gallops ABDOMEN: Abdomen soft, non-tender, BS normal, No masses or organomegaly EXTREMITIES: Extremities normal, no deformities, edema, clubbing or skin discoloration. Good capillary refill., No ulcers NEURO: Cranial nerves II-XII intact PULSES: 2+ radial, 2+ carotid Lines, Drains, and Airways Line Peripheral 07/14/21 1550 Left Antecubital 20 Gauge 2 days Reviewed lines and needs to be continued: REASONS: Telemetry DATA: Diagnostic tests reviewed for today's visit: Recent Labs 07/14/21 1550 06/21/21 1420 WBC 10.37 9.49 RBC 4.41 4.29 HB 12.6 12.3 HCT 39.0 39.8 PLT 315 342 MCV 88.4 92.8 MCH 28.6 28.7 MPV 9.9 10.6 ABSNEUT 7.00 6.04 NEUTP 67.4 63.9 LYMPHP 25.1 28.3 MONOP 5.7 6.2 EODINP 1.4 1.2 Recent Labs 07/14/21 1550 GLUC 113* NA 140 K 3.8 CHLOR 101 CO2 25 CREAT 0.60 BUN 15 ANION 14 CA 9.9 TPROT 6.9 ALB 4.4 TBILI 0.3 ALKPHOS 118 AST 15 ALT 12 Most recent imaging Assessment/Plan Problem List Chest pain POA: Yes SHANA (obstructive sleep apnea) POA: Yes CAD (coronary artery disease) POA: Yes Essential hypertension POA: Yes History of pulmonary embolism POA: Yes Centrilobular emphysema (HCC) POA: Yes Type 2 diabetes mellitus (HCC) POA: Yes EKG abnormality POA: Yes Chronic pain POA: Yes Hemorrhoids POA: Yes Chronic respiratory failure (HCC) POA: Yes Obesity, Class II, BMI 35-39.9 POA: . HOSPITAL COURSE: Tamiko Diamond is a 70 year old female presented with past medical history of lung cancer s/p VATs and RUL lobectomy (2013), chronic hypoxemic respiratory failure (on 2.5 L O2 at HS), D-CHF, CAD (per cath report 2015), DVT/PE (09/2020--provoked following orthopedic surgery; no longer on eliquis), COPD, fibromyalgia, IBS, GERD, SHANA (on BiPAP), RLS, T2DM and HLD who presented to the ED with chest pain and SOB. Patient reports that she has been having progressive shortness of breath on exertion over the past few months. She was seen by her cardiology BI SPECIALIST on 07/10/21 who had recommended repeating echocar (more content not included)... [id number] NoteHNO ID: [id number] Author: Tyler Vinson MD Service: Hospital Medicine Author Type: Physician Type: Progress Notes Filed: 07/16/2021 9:17 PM Note Text: DEPARTMENT OF HOSPITAL MEDICINE PROGRESS NOTE SERVICE DATE: 07/16/2021 SERVICE TIME: 6:01 AM Hospital Medicine/Primary Attending: Tyler Vinson MD NIGHT AND WEEKEND COVERAGE: RAMSEY COVERAGE: Days: [phone], please page attending physician. Nights: [phone], please page [facility] Night coverage pager [phone]. Subjective INTERVAL HPI: Patient is still very SOB with exertion and SOB. Still some chest pain / pressure in the mid chest. No f/c/n/v. Addendum: D/w Dr. Cardona and Dr. Wall and will have patient NPO after breakfast tomorrow and to transport for heart cath at [facility]. Patient will be furlough from [facility] during this period. Tyler Vinson MD July 16, 2021 9:17 PM Current Facility-Administered Medications Medication Dose Route Frequency - enoxaparin 40 mg injection (LOVENOX) 40 mg SUBCUTANEOUS q 24 HR - NaCl 0.9% iv flush bag 20 mL INTRAVENOUS PRN - sodium chloride 0.9 % (flush) 3-5 mL (BD POSIFLUSH) 3-5 mL INTRAVENOUS q 12 H - ipratropium-albuterol 3 mL nebulizer solution (DUONEB) 3 mL INHALATION q 4 H while awake - atorvastatin 20 mg tab(s) (LIPITOR) 20 mg ORAL DAILY - losartan 50 mg tab(s) (COZAAR) 50 mg ORAL DAILY - pramipexole (MIRAPEX) tab(s) 1.5 mg 1.5 mg ORAL AT BEDTIME - rOPINIRole 2 mg tab(s) (REQUIP) 2 mg ORAL AT BEDTIME - amLODIPine 5 mg tab(s) (NORVASC) 5 mg ORAL DAILY - furosemide 20 mg tab(s) (LASIX) 20 mg ORAL DAILY - azithromycin 250 mg tab(s) (ZITHROMAX) 250 mg ORAL DAILY - [START ON 07/20/2021] buprenorphine 5 mcg/hour 1 Patch (BUTRANS) 1 Patch TRANSDERMAL 1/WK - HYDROmorphone 2 mg tab(s) (DILAUDID) 2 mg ORAL BID PRN - traZODone 100 mg tab(s) (DESYREL) 100 mg ORAL AT BEDTIME - tiZANidine 4 mg tab(s) (ZANAFLEX) 4 mg ORAL q 8 H PRN - sertraline 50 mg tab(s) (ZOLOFT) 50 mg ORAL DAILY - pantoprazole DR 40 mg tab(s) (PROTONIX) 40 mg ORAL DAILY - polyethylene glycol 3350 17 g packet (MIRALAX, GLYCOLAX) 17 g ORAL DAILY - senna 8.6 mg tab(s) (SENOKOT) 8.6 mg ORAL BID - hydrocortisone 2.5 % rectal cream (ANUSOL-HC) RECTAL BID - dextrose 40 % 15 g 15 g ORAL PRN Or - glucagon 1 mg injection 1 mg INTRAMUSCULAR PRN Or - dextrose 50% in water 25 mL syringe 12.5 g INTRAVENOUS PRN - insulin lispro injection (rapid acting) (HumaLOG) SUBCUTANEOUS w MEALS - nicotine 14 mg/24 hr 1 Patch (NICODERM) 1 Patch TRANSDERMAL DAILY - nicotine -- REMOVE patch OTHER DAILY - nicotine - verify patch OTHER q 8 H Objective PHYSICAL EXAM: BP 120/52 Pulse 64 Temp (Src) 98.1 (Oral) Resp 17 Wt 198 lb (89.8kg) SpO2 98% O2 Therapy: BiLevel Positive Airway Pressure, Liters: 2.50 Physical Exam Performed GENERAL: Alert, no distress, cooperative, Obese SKIN: Skin color, texture, turgor normal. No rashes or lesions. HEAD/SINUSES: No significant findings EYES: PERRLA, EOMI LUNGS: Lungs clear to auscultation, Good diaphragmatic excursion CARDIAC: Normal S1 and S2; no rubs, murmurs, or gallops ABDOMEN: Abdomen soft, non-tender, BS normal, No masses or organomegaly EXTREMITIES: Extremities normal, no deformities, edema, clubbing or skin discoloration. Good capillary refill., No ulcers NEURO: Cranial nerves II-XII intact PULSES: 2+ radial, 2+ carotid Lines, Drains, and Airways Line Peripheral 07/14/21 1550 Left Antecubital 20 Gauge 1 day Reviewed lines and needs to be continued: REASONS: Telemetry DATA: Diagnostic tests reviewed for today's visit: Recent Labs 07/14/21 1550 06/21/21 1420 WBC 10.37 9.49 RBC 4.41 4.29 HB 12.6 12.3 HCT 39.0 39.8 PLT 315 342 MCV 88.4 92.8 MCH 28.6 28.7 MPV 9.9 10.6 ABSNEUT 7.00 6.04 NEUTP 67.4 63.9 LYMPHP 25.1 28.3 MONOP 5.7 6.2 EODINP 1.4 1.2 Recent Labs 07/14/21 1550 GLUC 113* NA 140 K 3.8 CHLOR 101 CO2 25 CREAT 0.60 BUN 15 ANION 14 CA 9.9 TPROT 6.9 ALB 4.4 TBILI 0.3 ALKPHOS 118 AST 15 ALT 12 Most recent imaging Assessment/Plan Problem List Chest pain POA: Yes SHANA (obstructive sleep apnea) POA: Yes CAD (coronary artery disease) POA: Yes Essential hypertension POA: Yes History of pulmonary embolism POA: Yes Centrilobular emphysema (HCC) POA: Yes Type 2 diabetes mellitus (HCC) POA: Yes EKG abnormality POA: Yes Chronic pain POA: Yes Hemorrhoids POA: Yes Chronic respiratory failure (HCC) POA: Yes Obesity, Class II, BMI 35-39.9 POA: . HOSPITAL COURSE: Tamiko Diamond is a 70 year old female presented with past medical history of lung cancer s/p VATs and RUL lobectomy (2013), chronic hypoxemic respiratory failure (on 2.5 L O2 at HS), D-CHF, CAD (per cath report 2015), DVT/PE (09/2020--provoked following orthopedic surgery; no longer on eliquis), COPD, fibromyalgia, IBS, GERD, SHANA (on BiPAP), RLS, T2DM and HLD who presented to the ED with chest (more content not included)... [id number] NoteHNO ID: [id number] Author: Tyler Vinson MD Service: Hospital Medicine Author Type: Physician Type: Progress Notes Filed: 07/15/2021 3:39 PM Note Text: DEPARTMENT OF HOSPITAL MEDICINE PROGRESS NOTE SERVICE DATE: 07/15/2021 SERVICE TIME: 7:44 AM Hospital Medicine/Primary Attending: Tyler Vinson MD NIGHT AND WEEKEND COVERAGE: RAMSEY COVERAGE: Days: [phone], please page attending physician. Nights: [phone], please page [facility] Night coverage pager [phone]. Subjective INTERVAL HPI: Patient is still very SOB with exertion and SOB. Still some chest pain / pressure in the mid chest. No f/c/n/v. Current Facility-Administered Medications Medication Dose Route Frequency - enoxaparin 40 mg injection (LOVENOX) 40 mg SUBCUTANEOUS q 24 HR - NaCl 0.9% iv flush bag 20 mL INTRAVENOUS PRN - sodium chloride 0.9 % (flush) 3-5 mL (BD POSIFLUSH) 3-5 mL INTRAVENOUS q 12 H - ipratropium-albuterol 3 mL nebulizer solution (DUONEB) 3 mL INHALATION q 4 H while awake - atorvastatin 20 mg tab(s) (LIPITOR) 20 mg ORAL DAILY - losartan 50 mg tab(s) (COZAAR) 50 mg ORAL DAILY - pramipexole (MIRAPEX) tab(s) 1.5 mg 1.5 mg ORAL AT BEDTIME - rOPINIRole 2 mg tab(s) (REQUIP) 2 mg ORAL AT BEDTIME - amLODIPine 5 mg tab(s) (NORVASC) 5 mg ORAL DAILY - furosemide 20 mg tab(s) (LASIX) 20 mg ORAL DAILY - azithromycin 250 mg tab(s) (ZITHROMAX) 250 mg ORAL DAILY - [START ON 07/20/2021] buprenorphine 5 mcg/hour 1 Patch (BUTRANS) 1 Patch TRANSDERMAL 1/WK - HYDROmorphone 2 mg tab(s) (DILAUDID) 2 mg ORAL BID PRN - traZODone 100 mg tab(s) (DESYREL) 100 mg ORAL AT BEDTIME - tiZANidine 4 mg tab(s) (ZANAFLEX) 4 mg ORAL q 8 H PRN - sertraline 50 mg tab(s) (ZOLOFT) 50 mg ORAL DAILY - pantoprazole DR 40 mg tab(s) (PROTONIX) 40 mg ORAL DAILY - polyethylene glycol 3350 17 g packet (MIRALAX, GLYCOLAX) 17 g ORAL DAILY - senna 8.6 mg tab(s) (SENOKOT) 8.6 mg ORAL BID - hydrocortisone 2.5 % rectal cream (ANUSOL-HC) RECTAL BID - dextrose 40 % 15 g 15 g ORAL PRN Or - glucagon 1 mg injection 1 mg INTRAMUSCULAR PRN Or - dextrose 50% in water 25 mL syringe 12.5 g INTRAVENOUS PRN - insulin lispro injection (rapid acting) (HumaLOG) SUBCUTANEOUS w MEALS Objective PHYSICAL EXAM: BP 128/57 Pulse 69 Temp (Src) 98.2 (Axillary) Resp 17 Wt 198 lb (89.8kg) SpO2 100% O2 Therapy: BiLevel Positive Airway Pressure, Liters: 2 Physical Exam Performed GENERAL: Alert, no distress, cooperative, Obese SKIN: Skin color, texture, turgor normal. No rashes or lesions. HEAD/SINUSES: No significant findings EYES: PERRLA, EOMI LUNGS: Lungs clear to auscultation, Good diaphragmatic excursion CARDIAC: Normal S1 and S2; no rubs, murmurs, or gallops ABDOMEN: Abdomen soft, non-tender, BS normal, No masses or organomegaly EXTREMITIES: Extremities normal, no deformities, edema, clubbing or skin discoloration. Good capillary refill., No ulcers NEURO: Cranial nerves II-XII intact PULSES: 2+ radial, 2+ carotid Lines, Drains, and Airways Line Peripheral 07/14/21 1550 Left Antecubital 20 Gauge <1 day Reviewed lines and needs to be continued: REASONS: Telemetry DATA: Diagnostic tests reviewed for today's visit: Recent Labs 07/14/21 1550 06/21/21 1420 WBC 10.37 9.49 RBC 4.41 4.29 HB 12.6 12.3 HCT 39.0 39.8 PLT 315 342 MCV 88.4 92.8 MCH 28.6 28.7 MPV 9.9 10.6 ABSNEUT 7.00 6.04 NEUTP 67.4 63.9 LYMPHP 25.1 28.3 MONOP 5.7 6.2 EODINP 1.4 1.2 Recent Labs 07/14/21 1550 GLUC 113* NA 140 K 3.8 CHLOR 101 CO2 25 CREAT 0.60 BUN 15 ANION 14 CA 9.9 TPROT 6.9 ALB 4.4 TBILI 0.3 ALKPHOS 118 AST 15 ALT 12 Most recent imaging Assessment/Plan Problem List Chest pain POA: Yes SHANA (obstructive sleep apnea) POA: Yes CAD (coronary artery disease) POA: Yes Essential hypertension POA: Yes History of pulmonary embolism POA: Yes Centrilobular emphysema (HCC) POA: Yes Type 2 diabetes mellitus (HCC) POA: Yes EKG abnormality POA: Yes Chronic pain POA: Yes Hemorrhoids POA: Yes Chronic respiratory failure (HCC) POA: Yes HOSPITAL COURSE: Tamiko Diamond is a 70 year old female presented with past medical history of lung cancer s/p VATs and RUL lobectomy (2013), chronic hypoxemic respiratory failure (on 2.5 L O2 at HS), D-CHF, CAD (per cath report 2015), DVT/PE (09/2020--provoked following orthopedic surgery; no longer on eliquis), COPD, fibromyalgia, IBS, GERD, SHANA (on BiPAP), RLS, T2DM and HLD who presented to the ED with chest pain and SOB. Patient reports that she has been having progressive shortness of breath on exertion over the past few months. She was seen by her cardiology BI SPECIALIST on 07/10/21 who had recommended repeating echocardiogram and stress testing which she is in the process of coordinating in the outpatient setting. She states that upon wakening today she had onset of central substernal chest pressure and heaviness . Principal Problem: Chest pa (more content not included)...[id number] of Past illness Narrative* Problem Noted Date Resolved Date EKG abnormality 07/14/2021 07/17/2021 EKG abnormalities 03/22/2021 03/25/2021 Overview: EK03/20/[address]-T changes with some terminal T wave inversions V1 through V4 not present on EKG 01/12/2021 On apixaban therapy 03/21/2021 08/01/2021 Overview: For prior pulmonary embolus Shortness of breath 12/15/2020 03/21/2021 Nausea and vomiting 12/15/2020 03/21/2021 Generalized weakness 12/15/2020 03/21/2021 Abnormal urinalysis 12/15/2020 03/21/2021 Acute deep vein thrombosis ( DVT) of distal vein of left lower extremity 10/26/2020 03/21/2021 Change in bowel habit 07/08/2019 03/21/2021 Prediabetes 05/13/2019 03/21/2021 Type 2 diabetes mellitus without retinopathy 01/201903/21/2021 DM (diabetes mellitus) 01/02/2017 Last Assessment & Plan: Assessment: on oral agent, last A1c 6.1 02/2019 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 No signs or symptoms of DVT/PE. The patient is at high risk for VTE. Plan: - Continue Lovenox 40mg daily SC. - SCD/KAIA - Encourage continued ambulation . DISPOSITION AND FOLLOW-UP 10/23/20132013 Overview: Patient is and lives in [place], [place]. At this time, we anticipate that the patient will be discharged home once clinically stable. Plan: - Discuss needs with patient. - Collaborate with Case management to facilitate DC process - Will likely need home oxygen. Desat study ordered. . Tobacco abuse 10/23/2013 11/12/2013 Overview: Active smoker of 75 pack years. Benefits of smoking cessation discussed and patient states she is actively trying to quit (down to less than a pack per day from 1.5 pack per day). Continued to reinforce need to stop smoking. Is being discharged on home oxygen. Plan -Continue to encourage smoking cessation. -Start nicotine patch . Acute postoperative pain 10/23/2013 014 Overview: Patient states adequate pain control with Vicodin, oxycodone, and Motrin added in an attempt to transition to all oral pain regimen. Plan -Patient will be discharged on Oxycodone and home dosing of Naprosyn -Monitor pain, reassess to keep at pain level 4 or below. . Atelectasis 10/23/2013 10/24/2013 Overview: S/P right VATS upper lobectomy 10/23/13. Wearing 2 L/min oxygen, 95% pulse ox. CXR shows bilateral atelectasis. PLAN: -Bronchopulmonary hygiene, cough, deep breathe, acapella use, frequent ambulation. . Rt VATS Wedge, then RULobectomy 10/20/2013 10/14/2015 Overview: Patient is an active smoker of 75 pack years, presented with a 1.4 cm spiculated, cavitary lesion in the right upper lung. PET scan showed increased uptake in the lesion with an SUV 5.5 and no evidence of hilar, mediastinal or extrathoracic disease. On 10/22/13, Dr. Calvert performed right VATS, right upper lobectomy, and lymphadenectomy (R2, R4, 7). Plan:: -Pain management -Out of bed, frequent ambulation -cough/deep breathe, acapella -regular diet -respiratory therapy- Desat study for home oxygen . Pain in joint, lower leg 05/01/2013 014 Tear of meniscus of left knee 02/16/2013 Fatigue 12/01/2012 11/12/2013 Snoring 12/01/2012 11/12/2013 Hyperglycemia 05/28/2012 01/02/2017 Mastalgia 09/04/2011 11/12/2013 CHRONIC AIRWAY OBSTRUCTION NEC 0 10/14/2015 Unspecified asthma(493.90) 11/21 Osteoporosis, unspecified 2020 History of lung cancer 6 Overview: squamous cell documented as of this encounter (statuses as of 11/21/2021) [facility] History of Past illness Narrative* Problem Noted Date Resolved Date EKG abnormality 07/14/2021 07/17/2021 EKG abnormalities 03/22/2021 03/25/2021 Overview: EK03/20/[address]-T changes with some terminal T wave inversions V1 through V4 not present on EKG 01/12/2021 On apixaban therapy 03/21/2021 08/01/2021 Overview: For prior pulmonary embolus Shortness of breath 12/15/2020 03/21/2021 Nausea and vomiting 12/15/2020 03/21/2021 Generalized weakness 12/15/2020 03/21/2021 Abnormal urinalysis 12/15/2020 03/21/2021 Acute deep vein thrombosis ( DVT) of distal vein of left lower extremity 10/26/2020 03/21/2021 Change in bowel habit 07/08/2019 03/21/2021 Prediabetes 05/13/2019 03/21/2021 Type 2 diabetes mellitus without retinopathy 01/201903/21/2021 DM (diabetes mellitus) 01/02/2017 Last Assessment & Plan: Assessment: on oral agent, last A1c 6.1 02/2019 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 No signs or symptoms of DVT/PE. The patient is at high risk for VTE. Plan: - Continue Lovenox 40mg daily SC. - SCD/KAIA - Encourage continued ambulation . DISPOSITION AND FOLLOW-UP 10/23/20132013 Overview: Patient is and lives in [place], [place]. At this time, we anticipate that the patient will be discharged home once clinically stable. Plan: - Discuss needs with patient. - Collaborate with Case management to facilitate DC process - Will likely need home oxygen. Desat study ordered. . Tobacco abuse 10/23/2013 11/12/2013 Overview: Active smoker of 75 pack years. Benefits of smoking cessation discussed and patient states she is actively trying to quit (down to less than a pack per day from 1.5 pack per day). Continued to reinforce need to stop smoking. Is being discharged on home oxygen. Plan -Continue to encourage smoking cessation. -Start nicotine patch . Acute postoperative pain 10/23/2013 014 Overview: Patient states adequate pain control with Vicodin, oxycodone, and Motrin added in an attempt to transition to all oral pain regimen. Plan -Patient will be discharged on Oxycodone and home dosing of Naprosyn -Monitor pain, reassess to keep at pain level 4 or below. . Atelectasis 10/23/2013 10/24/2013 Overview: S/P right VATS upper lobectomy 10/23/13. Wearing 2 L/min oxygen, 95% pulse ox. CXR shows bilateral atelectasis. PLAN: -Bronchopulmonary hygiene, cough, deep breathe, acapella use, frequent ambulation. . Rt VATS Wedge, then RULobectomy 10/20/2013 10/14/2015 Overview: Patient is an active smoker of 75 pack years, presented with a 1.4 cm spiculated, cavitary lesion in the right upper lung. PET scan showed increased uptake in the lesion with an SUV 5.5 and no evidence of hilar, mediastinal or extrathoracic disease. On 10/22/13, Dr. Calvert performed right VATS, right upper lobectomy, and lymphadenectomy (R2, R4, 7). Plan:: -Pain management -Out of bed, frequent ambulation -cough/deep breathe, acapella -regular diet -respiratory therapy- Desat study for home oxygen . Pain in joint, lower leg 05/01/2013 014 Tear of meniscus of left knee 02/16/2013 Fatigue 12/01/2012 11/12/2013 Snoring 12/01/2012 11/12/2013 Hyperglycemia 05/28/2012 01/02/2017 Mastalgia 09/04/2011 11/12/2013 CHRONIC AIRWAY OBSTRUCTION NEC 0 10/14/2015 Unspecified asthma(493.90) 11/21 Osteoporosis, unspecified 2020 History of lung cancer 6 Overview: squamous cell documented as of this encounter (statuses as of 11/27/2021) [facility]21 History of Past illness Narrative* Problem Noted Date Resolved Date EKG abnormality 07/14/2021 07/17/2021 EKG abnormalities 03/22/2021 03/25/2021 Overview: EK03/20/[address]-T changes with some terminal T wave inversions V1 through V4 not present on EKG 01/12/2021 On apixaban therapy 03/21/2021 08/01/2021 Overview: For prior pulmonary embolus Shortness of breath 12/15/2020 03/21/2021 Nausea and vomiting 12/15/2020 03/21/2021 Generalized weakness 12/15/2020 03/21/2021 Abnormal urinalysis 12/15/2020 03/21/2021 Acute deep vein thrombosis ( DVT) of distal vein of left lower extremity 10/26/2020 03/21/2021 Change in bowel habit 07/08/2019 03/21/2021 Prediabetes 05/13/2019 03/21/2021 Type 2 diabetes mellitus without retinopathy 01/201903/21/2021 DM (diabetes mellitus) 01/02/2017 Last Assessment & Plan: Assessment: on oral agent, last A1c 6.1 02/2019 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 No signs or symptoms of DVT/PE. The patient is at high risk for VTE. Plan: - Continue Lovenox 40mg daily SC. - SCD/KAIA - Encourage continued ambulation . DISPOSITION AND FOLLOW-UP 10/23/20132013 Overview: Patient is and lives in [place], [place]. At this time, we anticipate that the patient will be discharged home once clinically stable. Plan: - Discuss needs with patient. - Collaborate with Case management to facilitate DC process - Will likely need home oxygen. Desat study ordered. . Tobacco abuse 10/23/2013 11/12/2013 Overview: Active smoker of 75 pack years. Benefits of smoking cessation discussed and patient states she is actively trying to quit (down to less than a pack per day from 1.5 pack per day). Continued to reinforce need to stop smoking. Is being discharged on home oxygen. Plan -Continue to encourage smoking cessation. -Start nicotine patch . Acute postoperative pain 10/23/2013 014 Overview: Patient states adequate pain control with Vicodin, oxycodone, and Motrin added in an attempt to transition to all oral pain regimen. Plan -Patient will be discharged on Oxycodone and home dosing of Naprosyn -Monitor pain, reassess to keep at pain level 4 or below. . Atelectasis 10/23/2013 10/24/2013 Overview: S/P right VATS upper lobectomy 10/23/13. Wearing 2 L/min oxygen, 95% pulse ox. CXR shows bilateral atelectasis. PLAN: -Bronchopulmonary hygiene, cough, deep breathe, acapella use, frequent ambulation. . Rt VATS Wedge, then RULobectomy 10/20/2013 10/14/2015 Overview: Patient is an active smoker of 75 pack years, presented with a 1.4 cm spiculated, cavitary lesion in the right upper lung. PET scan showed increased uptake in the lesion with an SUV 5.5 and no evidence of hilar, mediastinal or extrathoracic disease. On 10/22/13, Dr. Calvert performed right VATS, right upper lobectomy, and lymphadenectomy (R2, R4, 7). Plan:: -Pain management -Out of bed, frequent ambulation -cough/deep breathe, acapella -regular diet -respiratory therapy- Desat study for home oxygen . Pain in joint, lower leg 05/01/2013 014 Tear of meniscus of left knee 02/16/2013 Fatigue 12/01/2012 11/12/2013 Snoring 12/01/2012 11/12/2013 Hyperglycemia 05/28/2012 01/02/2017 Mastalgia 09/04/2011 11/12/2013 CHRONIC AIRWAY OBSTRUCTION NEC 0 10/14/2015 Unspecified asthma(493.90) 11/21 Osteoporosis, unspecified 2020 History of lung cancer 6 Overview: squamous cell documented as of this encounter (statuses as of 11/28/2021) [facility] History of Past illness Narrative* Problem Noted Date Resolved Date EKG abnormality 07/14/2021 07/17/2021 EKG abnormalities 03/22/2021 03/25/2021 Overview: EK03/20/[address]-T changes with some terminal T wave inversions V1 through V4 not present on EKG 01/12/2021 On apixaban therapy 03/21/2021 08/01/2021 Overview: For prior pulmonary embolus Shortness of breath 12/15/2020 03/21/2021 Nausea and vomiting 12/15/2020 03/21/2021 Generalized weakness 12/15/2020 03/21/2021 Abnormal urinalysis 12/15/2020 03/21/2021 Acute deep vein thrombosis ( DVT) of distal vein of left lower extremity 10/26/2020 03/21/2021 Change in bowel habit 07/08/2019 03/21/2021 Prediabetes 05/13/2019 03/21/2021 Type 2 diabetes mellitus without retinopathy 01/201903/21/2021 DM (diabetes mellitus) 01/02/2017 Last Assessment & Plan: Assessment: on oral agent, last A1c 6.1 02/2019 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 No signs or symptoms of DVT/PE. The patient is at high risk for VTE. Plan: - Continue Lovenox 40mg daily SC. - SCD/KAIA - Encourage continued ambulation . DISPOSITION AND FOLLOW-UP 10/23/20132013 Overview: Patient is and lives in [place], [place]. At this time, we anticipate that the patient will be discharged home once clinically stable. Plan: - Discuss needs with patient. - Collaborate with Case management to facilitate DC process - Will likely need home oxygen. Desat study ordered. . Tobacco abuse 10/23/2013 11/12/2013 Overview: Active smoker of 75 pack years. Benefits of smoking cessation discussed and patient states she is actively trying to quit (down to less than a pack per day from 1.5 pack per day). Continued to reinforce need to stop smoking. Is being discharged on home oxygen. Plan -Continue to encourage smoking cessation. -Start nicotine patch . Acute postoperative pain 10/23/2013 014 Overview: Patient states adequate pain control with Vicodin, oxycodone, and Motrin added in an attempt to transition to all oral pain regimen. Plan -Patient will be discharged on Oxycodone and home dosing of Naprosyn -Monitor pain, reassess to keep at pain level 4 or below. . Atelectasis 10/23/2013 10/24/2013 Overview: S/P right VATS upper lobectomy 10/23/13. Wearing 2 L/min oxygen, 95% pulse ox. CXR shows bilateral atelectasis. PLAN: -Bronchopulmonary hygiene, cough, deep breathe, acapella use, frequent ambulation. . Rt VATS Wedge, then RULobectomy 10/20/2013 10/14/2015 Overview: Patient is an active smoker of 75 pack years, presented with a 1.4 cm spiculated, cavitary lesion in the right upper lung. PET scan showed increased uptake in the lesion with an SUV 5.5 and no evidence of hilar, mediastinal or extrathoracic disease. On 10/22/13, Dr. Calvert performed right VATS, right upper lobectomy, and lymphadenectomy (R2, R4, 7). Plan:: -Pain management -Out of bed, frequent ambulation -cough/deep breathe, acapella -regular diet -respiratory therapy- Desat study for home oxygen . Pain in joint, lower leg 05/01/2013 014 Tear of meniscus of left knee 02/16/2013 Fatigue 12/01/2012 11/12/2013 Snoring 12/01/2012 11/12/2013 Hyperglycemia 05/28/2012 01/02/2017 Mastalgia 09/04/2011 11/12/2013 CHRONIC AIRWAY OBSTRUCTION NEC 0 10/14/2015 Unspecified asthma(493.90) 11/21 Osteoporosis, unspecified 2020 History of lung cancer 6 Overview: squamous cell documented as of this encounter (statuses as of 12/01/2021) [facility]11-[facility]21 History of Past illness Narrative* Problem Noted Date Resolved Date EKG abnormality 07/14/2021 07/17/2021 EKG abnormalities 03/22/2021 03/25/2021 Overview: EK03/20/[address]-T changes with some terminal T wave inversions V1 through V4 not present on EKG 01/12/2021 On apixaban therapy 03/21/2021 08/01/2021 Overview: For prior pulmonary embolus Shortness of breath 12/15/2020 03/21/2021 Nausea and vomiting 12/15/2020 03/21/2021 Generalized weakness 12/15/2020 03/21/2021 Abnormal urinalysis 12/15/2020 03/21/2021 Acute deep vein thrombosis ( DVT) of distal vein of left lower extremity 10/26/2020 03/21/2021 Change in bowel habit 07/08/2019 03/21/2021 Prediabetes 05/13/2019 03/21/2021 Type 2 diabetes mellitus without retinopathy 01/201903/21/2021 DM (diabetes mellitus) 01/02/2017 Last Assessment & Plan: Assessment: on oral agent, last A1c 6.1 02/2019 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 No signs or symptoms of DVT/PE. The patient is at high risk for VTE. Plan: - Continue Lovenox 40mg daily SC. - SCD/KAIA - Encourage continued ambulation . DISPOSITION AND FOLLOW-UP 10/23/20132013 Overview: Patient is and lives in [place], [place]. At this time, we anticipate that the patient will be discharged home once clinically stable. Plan: - Discuss needs with patient. - Collaborate with Case management to facilitate DC process - Will likely need home oxygen. Desat study ordered. . Tobacco abuse 10/23/2013 11/12/2013 Overview: Active smoker of 75 pack years. Benefits of smoking cessation discussed and patient states she is actively trying to quit (down to less than a pack per day from 1.5 pack per day). Continued to reinforce need to stop smoking. Is being discharged on home oxygen. Plan -Continue to encourage smoking cessation. -Start nicotine patch . Acute postoperative pain 10/23/2013 014 Overview: Patient states adequate pain control with Vicodin, oxycodone, and Motrin added in an attempt to transition to all oral pain regimen. Plan -Patient will be discharged on Oxycodone and home dosing of Naprosyn -Monitor pain, reassess to keep at pain level 4 or below. . Atelectasis 10/23/2013 10/24/2013 Overview: S/P right VATS upper lobectomy 10/23/13. Wearing 2 L/min oxygen, 95% pulse ox. CXR shows bilateral atelectasis. PLAN: -Bronchopulmonary hygiene, cough, deep breathe, acapella use, frequent ambulation. . Rt VATS Wedge, then RULobectomy 10/20/2013 10/14/2015 Overview: Patient is an active smoker of 75 pack years, presented with a 1.4 cm spiculated, cavitary lesion in the right upper lung. PET scan showed increased uptake in the lesion with an SUV 5.5 and no evidence of hilar, mediastinal or extrathoracic disease. On 10/22/13, Dr. Calvert performed right VATS, right upper lobectomy, and lymphadenectomy (R2, R4, 7). Plan:: -Pain management -Out of bed, frequent ambulation -cough/deep breathe, acapella -regular diet -respiratory therapy- Desat study for home oxygen . Pain in joint, lower leg 05/01/2013 014 Tear of meniscus of left knee 02/16/2013 Fatigue 12/01/2012 11/12/2013 Snoring 12/01/2012 11/12/2013 Hyperglycemia 05/28/2012 01/02/2017 Mastalgia 09/04/2011 11/12/2013 CHRONIC AIRWAY OBSTRUCTION NEC 0 10/14/2015 Unspecified asthma(493.90) 11/21 Osteoporosis, unspecified 2020 History of lung cancer 6 Overview: squamous cell documented as of this encounter (statuses as of 12/04/2021) [facility]11-[facility] History of Past illness Narrative* Problem Noted Date Resolved Date EKG abnormality 07/14/2021 07/17/2021 EKG abnormalities 03/22/2021 03/25/2021 Overview: EK03/20/[address]-T changes with some terminal T wave inversions V1 through V4 not present on EKG 01/12/2021 On apixaban therapy 03/21/2021 08/01/2021 Overview: For prior pulmonary embolus Shortness of breath 12/15/2020 03/21/2021 Nausea and vomiting 12/15/2020 03/21/2021 Generalized weakness 12/15/2020 03/21/2021 Abnormal urinalysis 12/15/2020 03/21/2021 Acute deep vein thrombosis ( DVT) of distal vein of left lower extremity 10/26/2020 03/21/2021 Change in bowel habit 07/08/2019 03/21/2021 Prediabetes 05/13/2019 03/21/2021 Type 2 diabetes mellitus without retinopathy 01/201903/21/2021 DM (diabetes mellitus) 01/02/2017 Last Assessment & Plan: Assessment: on oral agent, last A1c 6.1 02/2019 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 No signs or symptoms of DVT/PE. The patient is at high risk for VTE. Plan: - Continue Lovenox 40mg daily SC. - SCD/KAIA - Encourage continued ambulation . DISPOSITION AND FOLLOW-UP 10/23/20132013 Overview: Patient is and lives in [place], [place]. At this time, we anticipate that the patient will be discharged home once clinically stable. Plan: - Discuss needs with patient. - Collaborate with Case management to facilitate DC process - Will likely need home oxygen. Desat study ordered. . Tobacco abuse 10/23/2013 11/12/2013 Overview: Active smoker of 75 pack years. Benefits of smoking cessation discussed and patient states she is actively trying to quit (down to less than a pack per day from 1.5 pack per day). Continued to reinforce need to stop smoking. Is being discharged on home oxygen. Plan -Continue to encourage smoking cessation. -Start nicotine patch . Acute postoperative pain 10/23/2013 014 Overview: Patient states adequate pain control with Vicodin, oxycodone, and Motrin added in an attempt to transition to all oral pain regimen. Plan -Patient will be discharged on Oxycodone and home dosing of Naprosyn -Monitor pain, reassess to keep at pain level 4 or below. . Atelectasis 10/23/2013 10/24/2013 Overview: S/P right VATS upper lobectomy 10/23/13. Wearing 2 L/min oxygen, 95% pulse ox. CXR shows bilateral atelectasis. PLAN: -Bronchopulmonary hygiene, cough, deep breathe, acapella use, frequent ambulation. . Rt VATS Wedge, then RULobectomy 10/20/2013 10/14/2015 Overview: Patient is an active smoker of 75 pack years, presented with a 1.4 cm spiculated, cavitary lesion in the right upper lung. PET scan showed increased uptake in the lesion with an SUV 5.5 and no evidence of hilar, mediastinal or extrathoracic disease. On 10/22/13, Dr. Calvert performed right VATS, right upper lobectomy, and lymphadenectomy (R2, R4, 7). Plan:: -Pain management -Out of bed, frequent ambulation -cough/deep breathe, acapella -regular diet -respiratory therapy- Desat study for home oxygen . Pain in joint, lower leg 05/01/2013 014 Tear of meniscus of left knee 02/16/2013 Fatigue 12/01/2012 11/12/2013 Snoring 12/01/2012 11/12/2013 Hyperglycemia 05/28/2012 01/02/2017 Mastalgia 09/04/2011 11/12/2013 CHRONIC AIRWAY OBSTRUCTION NEC 0 10/14/2015 Unspecified asthma(493.90) 11/21 Osteoporosis, unspecified 2020 History of lung cancer 6 Overview: squamous cell documented as of this encounter (statuses as of 12/11/2021) [facility] History of Past illness Narrative* Problem Noted Date Resolved Date EKG abnormality 07/14/2021 07/17/2021 EKG abnormalities 03/22/2021 03/25/2021 Overview: EK03/20/[address]-T changes with some terminal T wave inversions V1 through V4 not present on EKG 01/12/2021 On apixaban therapy 03/21/2021 08/01/2021 Overview: For prior pulmonary embolus Shortness of breath 12/15/2020 03/21/2021 Nausea and vomiting 12/15/2020 03/21/2021 Generalized weakness 12/15/2020 03/21/2021 Abnormal urinalysis 12/15/2020 03/21/2021 Acute deep vein thrombosis ( DVT) of distal vein of left lower extremity 10/26/2020 03/21/2021 Change in bowel habit 07/08/2019 03/21/2021 Prediabetes 05/13/2019 03/21/2021 Type 2 diabetes mellitus without retinopathy 01/201903/21/2021 DM (diabetes mellitus) 01/02/2017 Last Assessment & Plan: Assessment: on oral agent, last A1c 6.1 02/2019 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 No signs or symptoms of DVT/PE. The patient is at high risk for VTE. Plan: - Continue Lovenox 40mg daily SC. - SCD/KAIA - Encourage continued ambulation . DISPOSITION AND FOLLOW-UP 10/23/20132013 Overview: Patient is and lives in [place], [place]. At this time, we anticipate that the patient will be discharged home once clinically stable. Plan: - Discuss needs with patient. - Collaborate with Case management to facilitate DC process - Will likely need home oxygen. Desat study ordered. . Tobacco abuse 10/23/2013 11/12/2013 Overview: Active smoker of 75 pack years. Benefits of smoking cessation discussed and patient states she is actively trying to quit (down to less than a pack per day from 1.5 pack per day). Continued to reinforce need to stop smoking. Is being discharged on home oxygen. Plan -Continue to encourage smoking cessation. -Start nicotine patch . Acute postoperative pain 10/23/2013 014 Overview: Patient states adequate pain control with Vicodin, oxycodone, and Motrin added in an attempt to transition to all oral pain regimen. Plan -Patient will be discharged on Oxycodone and home dosing of Naprosyn -Monitor pain, reassess to keep at pain level 4 or below. . Atelectasis 10/23/2013 10/24/2013 Overview: S/P right VATS upper lobectomy 10/23/13. Wearing 2 L/min oxygen, 95% pulse ox. CXR shows bilateral atelectasis. PLAN: -Bronchopulmonary hygiene, cough, deep breathe, acapella use, frequent ambulation. . Rt VATS Wedge, then RULobectomy 10/20/2013 10/14/2015 Overview: Patient is an active smoker of 75 pack years, presented with a 1.4 cm spiculated, cavitary lesion in the right upper lung. PET scan showed increased uptake in the lesion with an SUV 5.5 and no evidence of hilar, mediastinal or extrathoracic disease. On 10/22/13, Dr. Calvert performed right VATS, right upper lobectomy, and lymphadenectomy (R2, R4, 7). Plan:: -Pain management -Out of bed, frequent ambulation -cough/deep breathe, acapella -regular diet -respiratory therapy- Desat study for home oxygen . Pain in joint, lower leg 05/01/2013 014 Tear of meniscus of left knee 02/16/2013 Fatigue 12/01/2012 11/12/2013 Snoring 12/01/2012 11/12/2013 Hyperglycemia 05/28/2012 01/02/2017 Mastalgia 09/04/2011 11/12/2013 CHRONIC AIRWAY OBSTRUCTION NEC 0 10/14/2015 Unspecified asthma(493.90) 11/21 Osteoporosis, unspecified 2020 History of lung cancer 6 Overview: squamous cell documented as of this encounter (statuses as of 12/19/2021) [facility] History of Past illness Narrative* Problem Noted Date Resolved Date EKG abnormality 07/14/2021 07/17/2021 EKG abnormalities 03/22/2021 03/25/2021 Overview: EK03/20/[address]-T changes with some terminal T wave inversions V1 through V4 not present on EKG 01/12/2021 On apixaban therapy 03/21/2021 08/01/2021 Overview: For prior pulmonary embolus Shortness of breath 12/15/2020 03/21/2021 Nausea and vomiting 12/15/2020 03/21/2021 Generalized weakness 12/15/2020 03/21/2021 Abnormal urinalysis 12/15/2020 03/21/2021 Acute deep vein thrombosis ( DVT) of distal vein of left lower extremity 10/26/2020 03/21/2021 Change in bowel habit 07/08/2019 03/21/2021 Prediabetes 05/13/2019 03/21/2021 Type 2 diabetes mellitus without retinopathy 01/201903/21/2021 DM (diabetes mellitus) 01/02/2017 Last Assessment & Plan: Assessment: on oral agent, last A1c 6.1 02/2019 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 No signs or symptoms of DVT/PE. The patient is at high risk for VTE. Plan: - Continue Lovenox 40mg daily SC. - SCD/KAIA - Encourage continued ambulation . DISPOSITION AND FOLLOW-UP 10/23/20132013 Overview: Patient is and lives in [place], [place]. At this time, we anticipate that the patient will be discharged home once clinically stable. Plan: - Discuss needs with patient. - Collaborate with Case management to facilitate DC process - Will likely need home oxygen. Desat study ordered. . Tobacco abuse 10/23/2013 11/12/2013 Overview: Active smoker of 75 pack years. Benefits of smoking cessation discussed and patient states she is actively trying to quit (down to less than a pack per day from 1.5 pack per day). Continued to reinforce need to stop smoking. Is being discharged on home oxygen. Plan -Continue to encourage smoking cessation. -Start nicotine patch . Acute postoperative pain 10/23/2013 014 Overview: Patient states adequate pain control with Vicodin, oxycodone, and Motrin added in an attempt to transition to all oral pain regimen. Plan -Patient will be discharged on Oxycodone and home dosing of Naprosyn -Monitor pain, reassess to keep at pain level 4 or below. . Atelectasis 10/23/2013 10/24/2013 Overview: S/P right VATS upper lobectomy 10/23/13. Wearing 2 L/min oxygen, 95% pulse ox. CXR shows bilateral atelectasis. PLAN: -Bronchopulmonary hygiene, cough, deep breathe, acapella use, frequent ambulation. . Rt VATS Wedge, then RULobectomy 10/20/2013 10/14/2015 Overview: Patient is an active smoker of 75 pack years, presented with a 1.4 cm spiculated, cavitary lesion in the right upper lung. PET scan showed increased uptake in the lesion with an SUV 5.5 and no evidence of hilar, mediastinal or extrathoracic disease. On 10/22/13, Dr. Calvert performed right VATS, right upper lobectomy, and lymphadenectomy (R2, R4, 7). Plan:: -Pain management -Out of bed, frequent ambulation -cough/deep breathe, acapella -regular diet -respiratory therapy- Desat study for home oxygen . Pain in joint, lower leg 05/01/2013 014 Tear of meniscus of left knee 02/16/2013 Fatigue 12/01/2012 11/12/2013 Snoring 12/01/2012 11/12/2013 Hyperglycemia 05/28/2012 01/02/2017 Mastalgia 09/04/2011 11/12/2013 CHRONIC AIRWAY OBSTRUCTION NEC 0 10/14/2015 Unspecified asthma(493.90) 11/21 Osteoporosis, unspecified 2020 History of lung cancer 6 Overview: squamous cell documented as of this encounter (statuses as of 12/19/2021) [facility]21 History of Past illness Narrative* Problem Noted Date Resolved Date EKG abnormality 07/14/2021 07/17/2021 EKG abnormalities 03/22/2021 03/25/2021 Overview: EK03/20/[address]-T changes with some terminal T wave inversions V1 through V4 not present on EKG 01/12/2021 On apixaban therapy 03/21/2021 08/01/2021 Overview: For prior pulmonary embolus Shortness of breath 12/15/2020 03/21/2021 Nausea and vomiting 12/15/2020 03/21/2021 Generalized weakness 12/15/2020 03/21/2021 Abnormal urinalysis 12/15/2020 03/21/2021 Acute deep vein thrombosis ( DVT) of distal vein of left lower extremity 10/26/2020 03/21/2021 Change in bowel habit 07/08/2019 03/21/2021 Prediabetes 05/13/2019 03/21/2021 Type 2 diabetes mellitus without retinopathy 01/201903/21/2021 DM (diabetes mellitus) 01/02/2017 Last Assessment & Plan: Assessment: on oral agent, last A1c 6.1 02/2019 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 No signs or symptoms of DVT/PE. The patient is at high risk for VTE. Plan: - Continue Lovenox 40mg daily SC. - SCD/KAIA - Encourage continued ambulation . DISPOSITION AND FOLLOW-UP 10/23/20132013 Overview: Patient is and lives in [place], [place]. At this time, we anticipate that the patient will be discharged home once clinically stable. Plan: - Discuss needs with patient. - Collaborate with Case management to facilitate DC process - Will likely need home oxygen. Desat study ordered. . Tobacco abuse 10/23/2013 11/12/2013 Overview: Active smoker of 75 pack years. Benefits of smoking cessation discussed and patient states she is actively trying to quit (down to less than a pack per day from 1.5 pack per day). Continued to reinforce need to stop smoking. Is being discharged on home oxygen. Plan -Continue to encourage smoking cessation. -Start nicotine patch . Acute postoperative pain 10/23/2013 014 Overview: Patient states adequate pain control with Vicodin, oxycodone, and Motrin added in an attempt to transition to all oral pain regimen. Plan -Patient will be discharged on Oxycodone and home dosing of Naprosyn -Monitor pain, reassess to keep at pain level 4 or below. . Atelectasis 10/23/2013 10/24/2013 Overview: S/P right VATS upper lobectomy 2/28/14. Wearing 2 L/min oxygen, 95% pulse ox. CXR shows bilateral atelectasis. PLAN: -Bronchopulmonary hygiene, cough, deep breathe, acapella use, frequent ambulation. . Rt VATS Wedge, then RULobectomy 10/20/2013 10/14/2015 Overview: Patient is an active smoker of 75 pack years, presented with a 1.4 cm spiculated, cavitary lesion in the right upper lung. PET scan showed increased uptake in the lesion with an SUV 5.5 and no evidence of hilar, mediastinal or extrathoracic disease. On 10/22/13, Dr. Calvert performed right VATS, right upper lobectomy, and lymphadenectomy (R2, R4, 7). Plan:: -Pain management -Out of bed, frequent ambulation -cough/deep breathe, acapella -regular diet -respiratory therapy- Desat study for home oxygen . Pain in joint, lower leg 05/01/2013 014 Tear of meniscus of left knee 02/16/2013 Fatigue 12/01/2012 11/12/2013 Snoring 12/01/2012 11/12/2013 Hyperglycemia 05/28/2012 01/02/2017 Mastalgia 09/04/2011 11/12/2013 CHRONIC AIRWAY OBSTRUCTION NEC 0 10/14/2015 Unspecified asthma(493.90) 11/21 Osteoporosis, unspecified 2020 History of lung cancer 6 Overview: squamous cell documented as of this encounter (statuses as of 12/20/2021) [facility] History of Past illness Narrative* Problem Noted Date Resolved Date EKG abnormality 07/14/2021 07/17/2021 EKG abnormalities 03/22/2021 03/25/2021 Overview: EK03/20/[address]-T changes with some terminal T wave inversions V1 through V4 not present on EKG 01/12/2021 On apixaban therapy 03/21/2021 08/01/2021 Overview: For prior pulmonary embolus Shortness of breath 12/15/2020 03/21/2021 Nausea and vomiting 12/15/2020 03/21/2021 Generalized weakness 12/15/2020 03/21/2021 Abnormal urinalysis 12/15/2020 03/21/2021 Acute deep vein thrombosis ( DVT) of distal vein of left lower extremity 10/26/2020 03/21/2021 Change in bowel habit 07/08/2019 03/21/2021 Prediabetes 05/13/2019 03/21/2021 Type 2 diabetes mellitus without retinopathy 01/201903/21/2021 DM (diabetes mellitus) 01/02/2017 Last Assessment & Plan: Assessment: on oral agent, last A1c 6.1 02/2019 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 No signs or symptoms of DVT/PE. The patient is at high risk for VTE. Plan: - Continue Lovenox 40mg daily SC. - SCD/KAIA - Encourage continued ambulation . DISPOSITION AND FOLLOW-UP 10/23/20132013 Overview: Patient is and lives in [place], [place]. At this time, we anticipate that the patient will be discharged home once clinically stable. Plan: - Discuss needs with patient. - Collaborate with Case management to facilitate DC process - Will likely need home oxygen. Desat study ordered. . Tobacco abuse 10/23/2013 11/12/2013 Overview: Active smoker of 75 pack years. Benefits of smoking cessation discussed and patient states she is actively trying to quit (down to less than a pack per day from 1.5 pack per day). Continued to reinforce need to stop smoking. Is being discharged on home oxygen. Plan -Continue to encourage smoking cessation. -Start nicotine patch . Acute postoperative pain 10/23/2013 014 Overview: Patient states adequate pain control with Vicodin, oxycodone, and Motrin added in an attempt to transition to all oral pain regimen. Plan -Patient will be discharged on Oxycodone and home dosing of Naprosyn -Monitor pain, reassess to keep at pain level 4 or below. . Atelectasis 10/23/2013 10/24/2013 Overview: S/P right VATS upper lobectomy 10/23/13. Wearing 2 L/min oxygen, 95% pulse ox. CXR shows bilateral atelectasis. PLAN: -Bronchopulmonary hygiene, cough, deep breathe, acapella use, frequent ambulation. . Rt VATS Wedge, then RULobectomy 10/20/2013 10/14/2015 Overview: Patient is an active smoker of 75 pack years, presented with a 1.4 cm spiculated, cavitary lesion in the right upper lung. PET scan showed increased uptake in the lesion with an SUV 5.5 and no evidence of hilar, mediastinal or extrathoracic disease. On 10/22/13, Dr. Calvert performed right VATS, right upper lobectomy, and lymphadenectomy (R2, R4, 7). Plan:: -Pain management -Out of bed, frequent ambulation -cough/deep breathe, acapella -regular diet -respiratory therapy- Desat study for home oxygen . Pain in joint, lower leg 05/01/2013 014 Tear of meniscus of left knee 02/16/2013 Fatigue 12/01/2012 11/12/2013 Snoring 12/01/2012 11/12/2013 Hyperglycemia 05/28/2012 01/02/2017 Mastalgia 09/04/2011 11/12/2013 CHRONIC AIRWAY OBSTRUCTION NEC 0 10/14/2015 Unspecified asthma(493.90) 11/21 Osteoporosis, unspecified 2020 History of lung cancer 6 Overview: squamous cell documented as of this encounter (statuses as of 12/27/2021) [facility] History of Past illness Narrative* Problem Noted Date Resolved Date EKG abnormality 07/14/2021 07/17/2021 EKG abnormalities 03/22/2021 03/25/2021 Overview: EK03/20/[address]-T changes with some terminal T wave inversions V1 through V4 not present on EKG 01/12/2021 On apixaban therapy 03/21/2021 08/01/2021 Overview: For prior pulmonary embolus Shortness of breath 12/15/2020 03/21/2021 Nausea and vomiting 12/15/2020 03/21/2021 Generalized weakness 12/15/2020 03/21/2021 Abnormal urinalysis 12/15/2020 03/21/2021 Acute deep vein thrombosis ( DVT) of distal vein of left lower extremity 10/26/2020 03/21/2021 Change in bowel habit 07/08/2019 03/21/2021 Prediabetes 05/13/2019 03/21/2021 Type 2 diabetes mellitus without retinopathy 01/201903/21/2021 DM (diabetes mellitus) 01/02/2017 Last Assessment & Plan: Assessment: on oral agent, last A1c 6.1 02/2019 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 No signs or symptoms of DVT/PE. The patient is at high risk for VTE. Plan: - Continue Lovenox 40mg daily SC. - SCD/KAIA - Encourage continued ambulation . DISPOSITION AND FOLLOW-UP 10/23/20132013 Overview: Patient is and lives in [place], [place]. At this time, we anticipate that the patient will be discharged home once clinically stable. Plan: - Discuss needs with patient. - Collaborate with Case management to facilitate DC process - Will likely need home oxygen. Desat study ordered. . Tobacco abuse 10/23/2013 11/12/2013 Overview: Active smoker of 75 pack years. Benefits of smoking cessation discussed and patient states she is actively trying to quit (down to less than a pack per day from 1.5 pack per day). Continued to reinforce need to stop smoking. Is being discharged on home oxygen. Plan -Continue to encourage smoking cessation. -Start nicotine patch . Acute postoperative pain 10/23/2013 014 Overview: Patient states adequate pain control with Vicodin, oxycodone, and Motrin added in an attempt to transition to all oral pain regimen. Plan -Patient will be discharged on Oxycodone and home dosing of Naprosyn -Monitor pain, reassess to keep at pain level 4 or below. . Atelectasis 10/23/2013 10/24/2013 Overview: S/P right VATS upper lobectomy 10/23/13. Wearing 2 L/min oxygen, 95% pulse ox. CXR shows bilateral atelectasis. PLAN: -Bronchopulmonary hygiene, cough, deep breathe, acapella use, frequent ambulation. . Rt VATS Wedge, then RULobectomy 10/20/2013 10/14/2015 Overview: Patient is an active smoker of 75 pack years, presented with a 1.4 cm spiculated, cavitary lesion in the right upper lung. PET scan showed increased uptake in the lesion with an SUV 5.5 and no evidence of hilar, mediastinal or extrathoracic disease. On 10/22/13, Dr. Calvert performed right VATS, right upper lobectomy, and lymphadenectomy (R2, R4, 7). Plan:: -Pain management -Out of bed, frequent ambulation -cough/deep breathe, acapella -regular diet -respiratory therapy- Desat study for home oxygen . Pain in joint, lower leg 05/01/2013 014 Tear of meniscus of left knee 02/16/2013 Fatigue 12/01/2012 11/12/2013 Snoring 12/01/2012 11/12/2013 Hyperglycemia 05/28/2012 01/02/2017 Mastalgia 09/04/2011 11/12/2013 CHRONIC AIRWAY OBSTRUCTION NEC 0 10/14/2015 Unspecified asthma(493.90) 11/21 Osteoporosis, unspecified 2020 History of lung cancer 6 Overview: squamous cell documented as of this encounter (statuses as of 12/27/2021) [facility] History of Past illness Narrative* Problem Noted Date Resolved Date EKG abnormality 07/14/2021 07/17/2021 EKG abnormalities 03/22/2021 03/25/2021 Overview: EK03/20/[address]-T changes with some terminal T wave inversions V1 through V4 not present on EKG 01/12/2021 On apixaban therapy 03/21/2021 08/01/2021 Overview: For prior pulmonary embolus Shortness of breath 12/15/2020 03/21/2021 Nausea and vomiting 12/15/2020 03/21/2021 Generalized weakness 12/15/2020 03/21/2021 Abnormal urinalysis 12/15/2020 03/21/2021 Acute deep vein thrombosis ( DVT) of distal vein of left lower extremity 10/26/2020 03/21/2021 Change in bowel habit 07/08/2019 03/21/2021 Prediabetes 05/13/2019 03/21/2021 Type 2 diabetes mellitus without retinopathy 01/201903/21/2021 DM (diabetes mellitus) 01/02/2017 Last Assessment & Plan: Assessment: on oral agent, last A1c 6.1 02/2019 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 No signs or symptoms of DVT/PE. The patient is at high risk for VTE. Plan: - Continue Lovenox 40mg daily SC. - SCD/KAIA - Encourage continued ambulation . DISPOSITION AND FOLLOW-UP 10/23/20132013 Overview: Patient is and lives in [place], [place]. At this time, we anticipate that the patient will be discharged home once clinically stable. Plan: - Discuss needs with patient. - Collaborate with Case management to facilitate DC process - Will likely need home oxygen. Desat study ordered. . Tobacco abuse 10/23/2013 11/12/2013 Overview: Active smoker of 75 pack years. Benefits of smoking cessation discussed and patient states she is actively trying to quit (down to less than a pack per day from 1.5 pack per day). Continued to reinforce need to stop smoking. Is being discharged on home oxygen. Plan -Continue to encourage smoking cessation. -Start nicotine patch . Acute postoperative pain 10/23/2013 014 Overview: Patient states adequate pain control with Vicodin, oxycodone, and Motrin added in an attempt to transition to all oral pain regimen. Plan -Patient will be discharged on Oxycodone and home dosing of Naprosyn -Monitor pain, reassess to keep at pain level 4 or below. . Atelectasis 10/23/2013 10/24/2013 Overview: S/P right VATS upper lobectomy 10/23/13. Wearing 2 L/min oxygen, 95% pulse ox. CXR shows bilateral atelectasis. PLAN: -Bronchopulmonary hygiene, cough, deep breathe, acapella use, frequent ambulation. . Rt VATS Wedge, then RULobectomy 10/20/2013 10/14/2015 Overview: Patient is an active smoker of 75 pack years, presented with a 1.4 cm spiculated, cavitary lesion in the right upper lung. PET scan showed increased uptake in the lesion with an SUV 5.5 and no evidence of hilar, mediastinal or extrathoracic disease. On 10/22/13, Dr. Calvert performed right VATS, right upper lobectomy, and lymphadenectomy (R2, R4, 7). Plan:: -Pain management -Out of bed, frequent ambulation -cough/deep breathe, acapella -regular diet -respiratory therapy- Desat study for home oxygen . Pain in joint, lower leg 05/01/2013 014 Tear of meniscus of left knee 02/16/2013 Fatigue 12/01/2012 11/12/2013 Snoring 12/01/2012 11/12/2013 Hyperglycemia 05/28/2012 01/02/2017 Mastalgia 09/04/2011 11/12/2013 CHRONIC AIRWAY OBSTRUCTION NEC 0 10/14/2015 Unspecified asthma(493.90) 11/21 Osteoporosis, unspecified 2020 History of lung cancer 6 Overview: squamous cell documented as of this encounter (statuses as of 01/02/2022) [facility] History of Past illness Narrative* Problem Noted Date Resolved Date EKG abnormality 07/14/2021 07/17/2021 EKG abnormalities 03/22/2021 03/25/2021 Overview: EK03/20/[address]-T changes with some terminal T wave inversions V1 through V4 not present on EKG 01/12/2021 On apixaban therapy 03/21/2021 08/01/2021 Overview: For prior pulmonary embolus Shortness of breath 12/15/2020 03/21/2021 Nausea and vomiting 12/15/2020 03/21/2021 Generalized weakness 12/15/2020 03/21/2021 Abnormal urinalysis 12/15/2020 03/21/2021 Acute deep vein thrombosis ( DVT) of distal vein of left lower extremity 10/26/2020 03/21/2021 Change in bowel habit 07/08/2019 03/21/2021 Prediabetes 05/13/2019 03/21/2021 Type 2 diabetes mellitus without retinopathy 01/201903/21/2021 DM (diabetes mellitus) 01/02/2017 Last Assessment & Plan: Assessment: on oral agent, last A1c 6.1 02/2019 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 No signs or symptoms of DVT/PE. The patient is at high risk for VTE. Plan: - Continue Lovenox 40mg daily SC. - SCD/KAIA - Encourage continued ambulation . DISPOSITION AND FOLLOW-UP 10/23/20132013 Overview: Patient is and lives in [place], [place]. At this time, we anticipate that the patient will be discharged home once clinically stable. Plan: - Discuss needs with patient. - Collaborate with Case management to facilitate DC process - Will likely need home oxygen. Desat study ordered. . Tobacco abuse 10/23/2013 11/12/2013 Overview: Active smoker of 75 pack years. Benefits of smoking cessation discussed and patient states she is actively trying to quit (down to less than a pack per day from 1.5 pack per day). Continued to reinforce need to stop smoking. Is being discharged on home oxygen. Plan -Continue to encourage smoking cessation. -Start nicotine patch . Acute postoperative pain 10/23/2013 014 Overview: Patient states adequate pain control with Vicodin, oxycodone, and Motrin added in an attempt to transition to all oral pain regimen. Plan -Patient will be discharged on Oxycodone and home dosing of Naprosyn -Monitor pain, reassess to keep at pain level 4 or below. . Atelectasis 10/23/2013 10/24/2013 Overview: S/P right VATS upper lobectomy 10/23/13. Wearing 2 L/min oxygen, 95% pulse ox. CXR shows bilateral atelectasis. PLAN: -Bronchopulmonary hygiene, cough, deep breathe, acapella use, frequent ambulation. . Rt VATS Wedge, then RULobectomy 10/20/2013 10/14/2015 Overview: Patient is an active smoker of 75 pack years, presented with a 1.4 cm spiculated, cavitary lesion in the right upper lung. PET scan showed increased uptake in the lesion with an SUV 5.5 and no evidence of hilar, mediastinal or extrathoracic disease. On 10/22/13, Dr. Calvert performed right VATS, right upper lobectomy, and lymphadenectomy (R2, R4, 7). Plan:: -Pain management -Out of bed, frequent ambulation -cough/deep breathe, acapella -regular diet -respiratory therapy- Desat study for home oxygen . Pain in joint, lower leg 05/01/2013 014 Tear of meniscus of left knee 02/16/2013 Fatigue 12/01/2012 11/12/2013 Snoring 12/01/2012 11/12/2013 Hyperglycemia 05/28/2012 01/02/2017 Mastalgia 09/04/2011 11/12/2013 CHRONIC AIRWAY OBSTRUCTION NEC 0 10/14/2015 Unspecified asthma(493.90) 11/21 Osteoporosis, unspecified 2020 History of lung cancer 6 Overview: squamous cell documented as of this encounter (statuses as of 01/03/2022) [facility] History of Past illness Narrative* Problem Noted Date Resolved Date EKG abnormality 07/14/2021 07/17/2021 EKG abnormalities 03/22/2021 03/25/2021 Overview: EK03/20/[address]-T changes with some terminal T wave inversions V1 through V4 not present on EKG 01/12/2021 On apixaban therapy 03/21/2021 08/01/2021 Overview: For prior pulmonary embolus Shortness of breath 12/15/2020 03/21/2021 Nausea and vomiting 12/15/2020 03/21/2021 Generalized weakness 12/15/2020 03/21/2021 Abnormal urinalysis 12/15/2020 03/21/2021 Acute deep vein thrombosis ( DVT) of distal vein of left lower extremity 10/26/2020 03/21/2021 Change in bowel habit 07/08/2019 03/21/2021 Prediabetes 05/13/2019 03/21/2021 Type 2 diabetes mellitus without retinopathy 01/201903/21/2021 DM (diabetes mellitus) 01/02/2017 Last Assessment & Plan: Assessment: on oral agent, last A1c 6.1 02/2019 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 No signs or symptoms of DVT/PE. The patient is at high risk for VTE. Plan: - Continue Lovenox 40mg daily SC. - SCD/KAIA - Encourage continued ambulation . DISPOSITION AND FOLLOW-UP 10/23/20132013 Overview: Patient is and lives in [place], [place]. At this time, we anticipate that the patient will be discharged home once clinically stable. Plan: - Discuss needs with patient. - Collaborate with Case management to facilitate DC process - Will likely need home oxygen. Desat study ordered. . Tobacco abuse 10/23/2013 11/12/2013 Overview: Active smoker of 75 pack years. Benefits of smoking cessation discussed and patient states she is actively trying to quit (down to less than a pack per day from 1.5 pack per day). Continued to reinforce need to stop smoking. Is being discharged on home oxygen. Plan -Continue to encourage smoking cessation. -Start nicotine patch . Acute postoperative pain 10/23/2013 014 Overview: Patient states adequate pain control with Vicodin, oxycodone, and Motrin added in an attempt to transition to all oral pain regimen. Plan -Patient will be discharged on Oxycodone and home dosing of Naprosyn -Monitor pain, reassess to keep at pain level 4 or below. . Atelectasis 10/23/2013 10/24/2013 Overview: S/P right VATS upper lobectomy 10/23/13. Wearing 2 L/min oxygen, 95% pulse ox. CXR shows bilateral atelectasis. PLAN: -Bronchopulmonary hygiene, cough, deep breathe, acapella use, frequent ambulation. . Rt VATS Wedge, then RULobectomy 10/20/2013 10/14/2015 Overview: Patient is an active smoker of 75 pack years, presented with a 1.4 cm spiculated, cavitary lesion in the right upper lung. PET scan showed increased uptake in the lesion with an SUV 5.5 and no evidence of hilar, mediastinal or extrathoracic disease. On 10/22/13, Dr. Calvert performed right VATS, right upper lobectomy, and lymphadenectomy (R2, R4, 7). Plan:: -Pain management -Out of bed, frequent ambulation -cough/deep breathe, acapella -regular diet -respiratory therapy- Desat study for home oxygen . Pain in joint, lower leg 05/01/2013 014 Tear of meniscus of left knee 02/16/2013 Fatigue 12/01/2012 11/12/2013 Snoring 12/01/2012 11/12/2013 Hyperglycemia 05/28/2012 01/02/2017 Mastalgia 09/04/2011 11/12/2013 CHRONIC AIRWAY OBSTRUCTION NEC 0 10/14/2015 Unspecified asthma(493.90) 11/21 Osteoporosis, unspecified 2020 History of lung cancer 6 Overview: squamous cell documented as of this encounter (statuses as of 01/05/2022) [facility]11-[facility]21 History of Past illness Narrative* Problem Noted Date Resolved Date EKG abnormality 07/14/2021 07/17/2021 EKG abnormalities 03/22/2021 03/25/2021 Overview: EK03/20/[address]-T changes with some terminal T wave inversions V1 through V4 not present on EKG 01/12/2021 On apixaban therapy 03/21/2021 08/01/2021 Overview: For prior pulmonary embolus Shortness of breath 12/15/2020 03/21/2021 Nausea and vomiting 12/15/2020 03/21/2021 Generalized weakness 12/15/2020 03/21/2021 Abnormal urinalysis 12/15/2020 03/21/2021 Acute deep vein thrombosis ( DVT) of distal vein of left lower extremity 10/26/2020 03/21/2021 Change in bowel habit 07/08/2019 03/21/2021 Prediabetes 05/13/2019 03/21/2021 Type 2 diabetes mellitus without retinopathy 01/201903/21/2021 DM (diabetes mellitus) 01/02/2017 Last Assessment & Plan: Assessment: on oral agent, last A1c 6.1 02/2019 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 No signs or symptoms of DVT/PE. The patient is at high risk for VTE. Plan: - Continue Lovenox 40mg daily SC. - SCD/KAIA - Encourage continued ambulation . DISPOSITION AND FOLLOW-UP 10/23/20132013 Overview: Patient is and lives in [place], [place]. At this time, we anticipate that the patient will be discharged home once clinically stable. Plan: - Discuss needs with patient. - Collaborate with Case management to facilitate DC process - Will likely need home oxygen. Desat study ordered. . Tobacco abuse 10/23/2013 11/12/2013 Overview: Active smoker of 75 pack years. Benefits of smoking cessation discussed and patient states she is actively trying to quit (down to less than a pack per day from 1.5 pack per day). Continued to reinforce need to stop smoking. Is being discharged on home oxygen. Plan -Continue to encourage smoking cessation. -Start nicotine patch . Acute postoperative pain 10/23/2013 014 Overview: Patient states adequate pain control with Vicodin, oxycodone, and Motrin added in an attempt to transition to all oral pain regimen. Plan -Patient will be discharged on Oxycodone and home dosing of Naprosyn -Monitor pain, reassess to keep at pain level 4 or below. . Atelectasis 10/23/2013 10/24/2013 Overview: S/P right VATS upper lobectomy 10/23/13. Wearing 2 L/min oxygen, 95% pulse ox. CXR shows bilateral atelectasis. PLAN: -Bronchopulmonary hygiene, cough, deep breathe, acapella use, frequent ambulation. . Rt VATS Wedge, then RULobectomy 10/20/2013 10/14/2015 Overview: Patient is an active smoker of 75 pack years, presented with a 1.4 cm spiculated, cavitary lesion in the right upper lung. PET scan showed increased uptake in the lesion with an SUV 5.5 and no evidence of hilar, mediastinal or extrathoracic disease. On 10/22/13, Dr. Calvert performed right VATS, right upper lobectomy, and lymphadenectomy (R2, R4, 7). Plan:: -Pain management -Out of bed, frequent ambulation -cough/deep breathe, acapella -regular diet -respiratory therapy- Desat study for home oxygen . Pain in joint, lower leg 05/01/2013 014 Tear of meniscus of left knee 02/16/2013 Fatigue 12/01/2012 11/12/2013 Snoring 12/01/2012 11/12/2013 Hyperglycemia 05/28/2012 01/02/2017 Mastalgia 09/04/2011 11/12/2013 CHRONIC AIRWAY OBSTRUCTION NEC 0 10/14/2015 Unspecified asthma(493.90) 11/21 Osteoporosis, unspecified 2020 History of lung cancer 6 Overview: squamous cell documented as of this encounter (statuses as of 01/11/2022) [facility]11-19-[facility]21 History of Past illness Narrative* Problem Noted Date Resolved Date EKG abnormality 07/14/2021 07/17/2021 EKG abnormalities 03/22/2021 03/25/2021 Overview: EK03/20/[address]-T changes with some terminal T wave inversions V1 through V4 not present on EKG 01/12/2021 On apixaban therapy 03/21/2021 08/01/2021 Overview: For prior pulmonary embolus Shortness of breath 12/15/2020 03/21/2021 Nausea and vomiting 12/15/2020 03/21/2021 Generalized weakness 12/15/2020 03/21/2021 Abnormal urinalysis 12/15/2020 03/21/2021 Acute deep vein thrombosis ( DVT) of distal vein of left lower extremity 10/26/2020 03/21/2021 Change in bowel habit 07/08/2019 03/21/2021 Prediabetes 05/13/2019 03/21/2021 Type 2 diabetes mellitus without retinopathy 01/201903/21/2021 DM (diabetes mellitus) 01/02/2017 Last Assessment & Plan: Assessment: on oral agent, last A1c 6.1 02/2019 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 No signs or symptoms of DVT/PE. The patient is at high risk for VTE. Plan: - Continue Lovenox 40mg daily SC. - SCD/KAIA - Encourage continued ambulation . DISPOSITION AND FOLLOW-UP 10/23/20132013 Overview: Patient is and lives in [place], [place]. At this time, we anticipate that the patient will be discharged home once clinically stable. Plan: - Discuss needs with patient. - Collaborate with Case management to facilitate DC process - Will likely need home oxygen. Desat study ordered. . Tobacco abuse 10/23/2013 11/12/2013 Overview: Active smoker of 75 pack years. Benefits of smoking cessation discussed and patient states she is actively trying to quit (down to less than a pack per day from 1.5 pack per day). Continued to reinforce need to stop smoking. Is being discharged on home oxygen. Plan -Continue to encourage smoking cessation. -Start nicotine patch . Acute postoperative pain 10/23/2013 014 Overview: Patient states adequate pain control with Vicodin, oxycodone, and Motrin added in an attempt to transition to all oral pain regimen. Plan -Patient will be discharged on Oxycodone and home dosing of Naprosyn -Monitor pain, reassess to keep at pain level 4 or below. . Atelectasis 10/23/2013 10/24/2013 Overview: S/P right VATS upper lobectomy 10/23/13. Wearing 2 L/min oxygen, 95% pulse ox. CXR shows bilateral atelectasis. PLAN: -Bronchopulmonary hygiene, cough, deep breathe, acapella use, frequent ambulation. . Rt VATS Wedge, then RULobectomy 10/20/2013 10/14/2015 Overview: Patient is an active smoker of 75 pack years, presented with a 1.4 cm spiculated, cavitary lesion in the right upper lung. PET scan showed increased uptake in the lesion with an SUV 5.5 and no evidence of hilar, mediastinal or extrathoracic disease. On 10/22/13, Dr. Calvert performed right VATS, right upper lobectomy, and lymphadenectomy (R2, R4, 7). Plan:: -Pain management -Out of bed, frequent ambulation -cough/deep breathe, acapella -regular diet -respiratory therapy- Desat study for home oxygen . Pain in joint, lower leg 05/01/2013 014 Tear of meniscus of left knee 02/16/2013 Fatigue 12/01/2012 11/12/2013 Snoring 12/01/2012 11/12/2013 Hyperglycemia 05/28/2012 01/02/2017 Mastalgia 09/04/2011 11/12/2013 CHRONIC AIRWAY OBSTRUCTION NEC 0 10/14/2015 Unspecified asthma(493.90) 11/21 Osteoporosis, unspecified 2020 History of lung cancer 6 Overview: squamous cell documented as of this encounter (statuses as of 01/16/2022) [facility]11-19-[facility]21 History of Past illness Narrative* Problem Noted Date Resolved Date EKG abnormality 07/14/2021 07/17/2021 EKG abnormalities 03/22/2021 03/25/2021 Overview: EK03/20/[address]-T changes with some terminal T wave inversions V1 through V4 not present on EKG 01/12/2021 On apixaban therapy 03/21/2021 08/01/2021 Overview: For prior pulmonary embolus Shortness of breath 12/15/2020 03/21/2021 Nausea and vomiting 12/15/2020 03/21/2021 Generalized weakness 12/15/2020 03/21/2021 Abnormal urinalysis 12/15/2020 03/21/2021 Acute deep vein thrombosis ( DVT) of distal vein of left lower extremity 10/26/2020 03/21/2021 Change in bowel habit 07/08/2019 03/21/2021 Prediabetes 05/13/2019 03/21/2021 Type 2 diabetes mellitus without retinopathy 01/201903/21/2021 DM (diabetes mellitus) 01/02/2017 Last Assessment & Plan: Assessment: on oral agent, last A1c 6.1 02/2019 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 No signs or symptoms of DVT/PE. The patient is at high risk for VTE. Plan: - Continue Lovenox 40mg daily SC. - SCD/KAIA - Encourage continued ambulation . DISPOSITION AND FOLLOW-UP 10/23/20132013 Overview: Patient is and lives in [place], [place]. At this time, we anticipate that the patient will be discharged home once clinically stable. Plan: - Discuss needs with patient. - Collaborate with Case management to facilitate DC process - Will likely need home oxygen. Desat study ordered. . Tobacco abuse 10/23/2013 11/12/2013 Overview: Active smoker of 75 pack years. Benefits of smoking cessation discussed and patient states she is actively trying to quit (down to less than a pack per day from 1.5 pack per day). Continued to reinforce need to stop smoking. Is being discharged on home oxygen. Plan -Continue to encourage smoking cessation. -Start nicotine patch . Acute postoperative pain 10/23/2013 014 Overview: Patient states adequate pain control with Vicodin, oxycodone, and Motrin added in an attempt to transition to all oral pain regimen. Plan -Patient will be discharged on Oxycodone and home dosing of Naprosyn -Monitor pain, reassess to keep at pain level 4 or below. . Atelectasis 10/23/2013 10/24/2013 Overview: S/P right VATS upper lobectomy 10/23/13. Wearing 2 L/min oxygen, 95% pulse ox. CXR shows bilateral atelectasis. PLAN: -Bronchopulmonary hygiene, cough, deep breathe, acapella use, frequent ambulation. . Rt VATS Wedge, then RULobectomy 10/20/2013 10/14/2015 Overview: Patient is an active smoker of 75 pack years, presented with a 1.4 cm spiculated, cavitary lesion in the right upper lung. PET scan showed increased uptake in the lesion with an SUV 5.5 and no evidence of hilar, mediastinal or extrathoracic disease. On 10/22/13, Dr. Calvert performed right VATS, right upper lobectomy, and lymphadenectomy (R2, R4, 7). Plan:: -Pain management -Out of bed, frequent ambulation -cough/deep breathe, acapella -regular diet -respiratory therapy- Desat study for home oxygen . Pain in joint, lower leg 05/01/2013 014 Tear of meniscus of left knee 02/16/2013 Fatigue 12/01/2012 11/12/2013 Snoring 12/01/2012 11/12/2013 Hyperglycemia 05/28/2012 01/02/2017 Mastalgia 09/04/2011 11/12/2013 CHRONIC AIRWAY OBSTRUCTION NEC 0 10/14/2015 Unspecified asthma(493.90) 11/21 Osteoporosis, unspecified 2020 History of lung cancer 6 Overview: squamous cell documented as of this encounter (statuses as of 01/17/2022) [facility] History of Past illness Narrative* Problem Noted Date Resolved Date EKG abnormality 07/14/2021 07/17/2021 EKG abnormalities 03/22/2021 03/25/2021 Overview: EK03/20/[address]-T changes with some terminal T wave inversions V1 through V4 not present on EKG 01/12/2021 On apixaban therapy 03/21/2021 08/01/2021 Overview: For prior pulmonary embolus Shortness of breath 12/15/2020 03/21/2021 Nausea and vomiting 12/15/2020 03/21/2021 Generalized weakness 12/15/2020 03/21/2021 Abnormal urinalysis 12/15/2020 03/21/2021 Acute deep vein thrombosis ( DVT) of distal vein of left lower extremity 10/26/2020 03/21/2021 Change in bowel habit 07/08/2019 03/21/2021 Prediabetes 05/13/2019 03/21/2021 Type 2 diabetes mellitus without retinopathy 01/201903/21/2021 DM (diabetes mellitus) 01/02/2017 Last Assessment & Plan: Assessment: on oral agent, last A1c 6.1 02/2019 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 No signs or symptoms of DVT/PE. The patient is at high risk for VTE. Plan: - Continue Lovenox 40mg daily SC. - SCD/KAIA - Encourage continued ambulation . DISPOSITION AND FOLLOW-UP 10/23/20132013 Overview: Patient is and lives in [place], [place]. At this time, we anticipate that the patient will be discharged home once clinically stable. Plan: - Discuss needs with patient. - Collaborate with Case management to facilitate DC process - Will likely need home oxygen. Desat study ordered. . Tobacco abuse 10/23/2013 11/12/2013 Overview: Active smoker of 75 pack years. Benefits of smoking cessation discussed and patient states she is actively trying to quit (down to less than a pack per day from 1.5 pack per day). Continued to reinforce need to stop smoking. Is being discharged on home oxygen. Plan -Continue to encourage smoking cessation. -Start nicotine patch . Acute postoperative pain 10/23/2013 014 Overview: Patient states adequate pain control with Vicodin, oxycodone, and Motrin added in an attempt to transition to all oral pain regimen. Plan -Patient will be discharged on Oxycodone and home dosing of Naprosyn -Monitor pain, reassess to keep at pain level 4 or below. . Atelectasis 10/23/2013 10/24/2013 Overview: S/P right VATS upper lobectomy 10/23/13. Wearing 2 L/min oxygen, 95% pulse ox. CXR shows bilateral atelectasis. PLAN: -Bronchopulmonary hygiene, cough, deep breathe, acapella use, frequent ambulation. . Rt VATS Wedge, then RULobectomy 10/20/2013 10/14/2015 Overview: Patient is an active smoker of 75 pack years, presented with a 1.4 cm spiculated, cavitary lesion in the right upper lung. PET scan showed increased uptake in the lesion with an SUV 5.5 and no evidence of hilar, mediastinal or extrathoracic disease. On 10/22/13, Dr. Calvert performed right VATS, right upper lobectomy, and lymphadenectomy (R2, R4, 7). Plan:: -Pain management -Out of bed, frequent ambulation -cough/deep breathe, acapella -regular diet -respiratory therapy- Desat study for home oxygen . Pain in joint, lower leg 05/01/2013 014 Tear of meniscus of left knee 02/16/2013 Fatigue 12/01/2012 11/12/2013 Snoring 12/01/2012 11/12/2013 Hyperglycemia 05/28/2012 01/02/2017 Mastalgia 09/04/2011 11/12/2013 CHRONIC AIRWAY OBSTRUCTION NEC 0 10/14/2015 Unspecified asthma(493.90) 11/21 Osteoporosis, unspecified 2020 History of lung cancer 6 Overview: squamous cell documented as of this encounter (statuses as of 02/01/2022) [facility] History of Past illness Narrative* Problem Noted Date Resolved Date EKG abnormality 07/14/2021 07/17/2021 EKG abnormalities 03/22/2021 03/25/2021 Overview: EK03/20/[address]-T changes with some terminal T wave inversions V1 through V4 not present on EKG 01/12/2021 On apixaban therapy 03/21/2021 08/01/2021 Overview: For prior pulmonary embolus Shortness of breath 12/15/2020 03/21/2021 Nausea and vomiting 12/15/2020 03/21/2021 Generalized weakness 12/15/2020 03/21/2021 Abnormal urinalysis 12/15/2020 03/21/2021 Acute deep vein thrombosis ( DVT) of distal vein of left lower extremity 10/26/2020 03/21/2021 Change in bowel habit 07/08/2019 03/21/2021 Prediabetes 05/13/2019 03/21/2021 Type 2 diabetes mellitus without retinopathy 01/201903/21/2021 DM (diabetes mellitus) 01/02/2017 Last Assessment & Plan: Assessment: on oral agent, last A1c 6.1 02/2019 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 No signs or symptoms of DVT/PE. The patient is at high risk for VTE. Plan: - Continue Lovenox 40mg daily SC. - SCD/KAIA - Encourage continued ambulation . DISPOSITION AND FOLLOW-UP 10/23/20132013 Overview: Patient is and lives in [place], [place]. At this time, we anticipate that the patient will be discharged home once clinically stable. Plan: - Discuss needs with patient. - Collaborate with Case management to facilitate DC process - Will likely need home oxygen. Desat study ordered. . Tobacco abuse 10/23/2013 11/12/2013 Overview: Active smoker of 75 pack years. Benefits of smoking cessation discussed and patient states she is actively trying to quit (down to less than a pack per day from 1.5 pack per day). Continued to reinforce need to stop smoking. Is being discharged on home oxygen. Plan -Continue to encourage smoking cessation. -Start nicotine patch . Acute postoperative pain 10/23/2013 014 Overview: Patient states adequate pain control with Vicodin, oxycodone, and Motrin added in an attempt to transition to all oral pain regimen. Plan -Patient will be discharged on Oxycodone and home dosing of Naprosyn -Monitor pain, reassess to keep at pain level 4 or below. . Atelectasis 10/23/2013 10/24/2013 Overview: S/P right VATS upper lobectomy 10/23/13. Wearing 2 L/min oxygen, 95% pulse ox. CXR shows bilateral atelectasis. PLAN: -Bronchopulmonary hygiene, cough, deep breathe, acapella use, frequent ambulation. . Rt VATS Wedge, then RULobectomy 10/20/2013 10/14/2015 Overview: Patient is an active smoker of 75 pack years, presented with a 1.4 cm spiculated, cavitary lesion in the right upper lung. PET scan showed increased uptake in the lesion with an SUV 5.5 and no evidence of hilar, mediastinal or extrathoracic disease. On 10/22/13, Dr. Calvert performed right VATS, right upper lobectomy, and lymphadenectomy (R2, R4, 7). Plan:: -Pain management -Out of bed, frequent ambulation -cough/deep breathe, acapella -regular diet -respiratory therapy- Desat study for home oxygen . Pain in joint, lower leg 05/01/2013 014 Tear of meniscus of left knee 02/16/2013 Fatigue 12/01/2012 11/12/2013 Snoring 12/01/2012 11/12/2013 Hyperglycemia 05/28/2012 01/02/2017 Mastalgia 09/04/2011 11/12/2013 CHRONIC AIRWAY OBSTRUCTION NEC 0 10/14/2015 Unspecified asthma(493.90) 11/21 Osteoporosis, unspecified 2020 History of lung cancer 6 Overview: squamous cell documented as of this encounter (statuses as of 02/05/2022) [facility] History of Past illness Narrative* Problem Noted Date Resolved Date EKG abnormality 07/14/2021 07/17/2021 EKG abnormalities 03/22/2021 03/25/2021 Overview: EK03/20/[address]-T changes with some terminal T wave inversions V1 through V4 not present on EKG 01/12/2021 On apixaban therapy 03/21/2021 08/01/2021 Overview: For prior pulmonary embolus Shortness of breath 12/15/2020 03/21/2021 Nausea and vomiting 12/15/2020 03/21/2021 Generalized weakness 12/15/2020 03/21/2021 Abnormal urinalysis 12/15/2020 03/21/2021 Acute deep vein thrombosis ( DVT) of distal vein of left lower extremity 10/26/2020 03/21/2021 Change in bowel habit 07/08/2019 03/21/2021 Prediabetes 05/13/2019 03/21/2021 Type 2 diabetes mellitus without retinopathy 01/201903/21/2021 DM (diabetes mellitus) 01/02/2017 07/27/202 1 Last Assessment & Plan: Assessment: on oral agent, last A1c 6.1 02/2019 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 No signs or symptoms of DVT/PE. The patient is at high risk for VTE. Plan: - Continue Lovenox 40mg daily SC. - SCD/KAIA - Encourage continued ambulation . DISPOSITION AND FOLLOW-UP 10/23/20132013 Overview: Patient is and lives in [place], [place]. At this time, we anticipate that the patient will be discharged home once clinically stable. Plan: - Discuss needs with patient. - Collaborate with Case management to facilitate DC process - Will likely need home oxygen. Desat study ordered. . Tobacco abuse 10/23/2013 11/12/2013 Overview: Active smoker of 75 pack years. Benefits of smoking cessation discussed and patient states she is actively trying to quit (down to less than a pack per day from 1.5 pack per day). Continued to reinforce need to stop smoking. Is being discharged on home oxygen. Plan -Continue to encourage smoking cessation. -Start nicotine patch . Acute postoperative pain 10/23/2013 014 Overview: Patient states adequate pain control with Vicodin, oxycodone, and Motrin added in an attempt to transition to all oral pain regimen. Plan -Patient will be discharged on Oxycodone and home dosing of Naprosyn -Monitor pain, reassess to keep at pain level 4 or below. . Atelectasis 10/23/2013 10/24/2013 Overview: S/P right VATS upper lobectomy 10/23/13. Wearing 2 L/min oxygen, 95% pulse ox. CXR shows bilateral atelectasis. PLAN: -Bronchopulmonary hygiene, cough, deep breathe, acapella use, frequent ambulation. . Rt VATS Wedge, then RULobectomy 10/20/2013 10/14/2015 Overview: Patient is an active smoker of 75 pack years, presented with a 1.4 cm spiculated, cavitary lesion in the right upper lung. PET scan showed increased uptake in the lesion with an SUV 5.5 and no evidence of hilar, mediastinal or extrathoracic disease. On 10/22/13, Dr. Calvert performed right VATS, right upper lobectomy, and lymphadenectomy (R2, R4, 7). Plan:: -Pain management -Out of bed, frequent ambulation -cough/deep breathe, acapella -regular diet -respiratory therapy- Desat study for home oxygen . Pain in joint, lower leg 05/01/2013 014 Tear of meniscus of left knee 02/16/2013 Fatigue 12/01/2012 11/12/2013 Snoring 12/01/2012 11/12/2013 Hyperglycemia 05/28/2012 01/02/2017 Mastalgia 09/04/2011 11/12/2013 CHRONIC AIRWAY OBSTRUCTION NEC 0 10/14/2015 Unspecified asthma(493.90) 11/21 Osteoporosis, unspecified 2020 History of lung cancer 6 Overview: squamous cell documented as of this encounter (statuses as of 02/12/2022) [facility]21 History of Past illness Narrative* Problem Noted Date Resolved Date EKG abnormality 07/14/2021 07/17/2021 EKG abnormalities 03/22/2021 03/25/2021 Overview: EK03/20/[address]-T changes with some terminal T wave inversions V1 through V4 not present on EKG 01/12/2021 On apixaban therapy 03/21/2021 08/01/2021 Overview: For prior pulmonary embolus Shortness of breath 12/15/2020 03/21/2021 Nausea and vomiting 12/15/2020 03/21/2021 Generalized weakness 12/15/2020 03/21/2021 Abnormal urinalysis 12/15/2020 03/21/2021 Acute deep vein thrombosis ( DVT) of distal vein of left lower extremity 10/26/2020 03/21/2021 Change in bowel habit 07/08/2019 03/21/2021 Prediabetes 05/13/2019 03/21/2021 Type 2 diabetes mellitus without retinopathy 01/201903/21/2021 DM (diabetes mellitus) 01/02/2017 Last Assessment & Plan: Assessment: on oral agent, last A1c 6.1 02/2019 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 No signs or symptoms of DVT/PE. The patient is at high risk for VTE. Plan: - Continue Lovenox 40mg daily SC. - SCD/KAIA - Encourage continued ambulation . DISPOSITION AND FOLLOW-UP 10/23/20132013 Overview: Patient is and lives in [place], [place]. At this time, we anticipate that the patient will be discharged home once clinically stable. Plan: - Discuss needs with patient. - Collaborate with Case management to facilitate DC process - Will likely need home oxygen. Desat study ordered. . Tobacco abuse 10/23/2013 11/12/2013 Overview: Active smoker of 75 pack years. Benefits of smoking cessation discussed and patient states she is actively trying to quit (down to less than a pack per day from 1.5 pack per day). Continued to reinforce need to stop smoking. Is being discharged on home oxygen. Plan -Continue to encourage smoking cessation. -Start nicotine patch . Acute postoperative pain 10/23/2013 014 Overview: Patient states adequate pain control with Vicodin, oxycodone, and Motrin added in an attempt to transition to all oral pain regimen. Plan -Patient will be discharged on Oxycodone and home dosing of Naprosyn -Monitor pain, reassess to keep at pain level 4 or below. . Atelectasis 10/23/2013 10/24/2013 Overview: S/P right VATS upper lobectomy 10/23/13. Wearing 2 L/min oxygen, 95% pulse ox. CXR shows bilateral atelectasis. PLAN: -Bronchopulmonary hygiene, cough, deep breathe, acapella use, frequent ambulation. . Rt VATS Wedge, then RULobectomy 10/20/2013 10/14/2015 Overview: Patient is an active smoker of 75 pack years, presented with a 1.4 cm spiculated, cavitary lesion in the right upper lung. PET scan showed increased uptake in the lesion with an SUV 5.5 and no evidence of hilar, mediastinal or extrathoracic disease. On 10/22/13, Dr. Calvert performed right VATS, right upper lobectomy, and lymphadenectomy (R2, R4, 7). Plan:: -Pain management -Out of bed, frequent ambulation -cough/deep breathe, acapella -regular diet -respiratory therapy- Desat study for home oxygen . Pain in joint, lower leg 05/01/2013 014 Tear of meniscus of left knee 02/16/2013 Fatigue 12/01/2012 11/12/2013 Snoring 12/01/2012 11/12/2013 Hyperglycemia 05/28/2012 01/02/2017 Mastalgia 09/04/2011 11/12/2013 CHRONIC AIRWAY OBSTRUCTION NEC 0 10/14/2015 Unspecified asthma(493.90) 11/21 Osteoporosis, unspecified 2020 History of lung cancer 6 Overview: squamous cell documented as of this encounter (statuses as of 02/13/2022) [facility] History of Past illness Narrative* Problem Noted Date Resolved Date EKG abnormality 07/14/2021 07/17/2021 EKG abnormalities 03/22/2021 03/25/2021 Overview: EK03/20/[address]-T changes with some terminal T wave inversions V1 through V4 not present on EKG 01/12/2021 On apixaban therapy 03/21/2021 08/01/2021 Overview: For prior pulmonary embolus Shortness of breath 12/15/2020 03/21/2021 Nausea and vomiting 12/15/2020 03/21/2021 Generalized weakness 12/15/2020 03/21/2021 Abnormal urinalysis 12/15/2020 03/21/2021 Acute deep vein thrombosis ( DVT) of distal vein of left lower extremity 10/26/2020 03/21/2021 Change in bowel habit 07/08/2019 03/21/2021 Prediabetes 05/13/2019 03/21/2021 Type 2 diabetes mellitus without retinopathy 01/201903/21/2021 DM (diabetes mellitus) 01/02/2017 Last Assessment & Plan: Assessment: on oral agent, last A1c 6.1 02/2019 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 No signs or symptoms of DVT/PE. The patient is at high risk for VTE. Plan: - Continue Lovenox 40mg daily SC. - SCD/KAIA - Encourage continued ambulation . DISPOSITION AND FOLLOW-UP 10/23/20132013 Overview: Patient is and lives in [place], [place]. At this time, we anticipate that the patient will be discharged home once clinically stable. Plan: - Discuss needs with patient. - Collaborate with Case management to facilitate DC process - Will likely need home oxygen. Desat study ordered. . Tobacco abuse 10/23/2013 11/12/2013 Overview: Active smoker of 75 pack years. Benefits of smoking cessation discussed and patient states she is actively trying to quit (down to less than a pack per day from 1.5 pack per day). Continued to reinforce need to stop smoking. Is being discharged on home oxygen. Plan -Continue to encourage smoking cessation. -Start nicotine patch . Acute postoperative pain 10/23/2013 014 Overview: Patient states adequate pain control with Vicodin, oxycodone, and Motrin added in an attempt to transition to all oral pain regimen. Plan -Patient will be discharged on Oxycodone and home dosing of Naprosyn -Monitor pain, reassess to keep at pain level 4 or below. . Atelectasis 10/23/2013 10/24/2013 Overview: S/P right VATS upper lobectomy 10/23/13. Wearing 2 L/min oxygen, 95% pulse ox. CXR shows bilateral atelectasis. PLAN: -Bronchopulmonary hygiene, cough, deep breathe, acapella use, frequent ambulation. . Rt VATS Wedge, then RULobectomy 10/20/2013 10/14/2015 Overview: Patient is an active smoker of 75 pack years, presented with a 1.4 cm spiculated, cavitary lesion in the right upper lung. PET scan showed increased uptake in the lesion with an SUV 5.5 and no evidence of hilar, mediastinal or extrathoracic disease. On 10/22/13, Dr. Calvert performed right VATS, right upper lobectomy, and lymphadenectomy (R2, R4, 7). Plan:: -Pain management -Out of bed, frequent ambulation -cough/deep breathe, acapella -regular diet -respiratory therapy- Desat study for home oxygen . Pain in joint, lower leg 05/01/2013 014 Tear of meniscus of left knee 02/16/2013 Fatigue 12/01/2012 11/12/2013 Snoring 12/01/2012 11/12/2013 Hyperglycemia 05/28/2012 01/02/2017 Mastalgia 09/04/2011 11/12/2013 CHRONIC AIRWAY OBSTRUCTION NEC 0 10/14/2015 Unspecified asthma(493.90) 11/21 Osteoporosis, unspecified 2020 History of lung cancer 6 Overview: squamous cell documented as of this encounter (statuses as of 02/16/2022) [facility] History of Past illness Narrative* Problem Noted Date Resolved Date EKG abnormality 07/14/2021 07/17/2021 EKG abnormalities 03/22/2021 03/25/2021 Overview: EK03/20/[address]-T changes with some terminal T wave inversions V1 through V4 not present on EKG 01/12/2021 On apixaban therapy 03/21/2021 08/01/2021 Overview: For prior pulmonary embolus Shortness of breath 12/15/2020 03/21/2021 Nausea and vomiting 12/15/2020 03/21/2021 Generalized weakness 12/15/2020 03/21/2021 Abnormal urinalysis 12/15/2020 03/21/2021 Acute deep vein thrombosis ( DVT) of distal vein of left lower extremity 10/26/2020 03/21/2021 Change in bowel habit 07/08/2019 03/21/2021 Prediabetes 05/13/2019 03/21/2021 Type 2 diabetes mellitus without retinopathy 01/201903/21/2021 DM (diabetes mellitus) 01/02/2017 Last Assessment & Plan: Assessment: on oral agent, last A1c 6.1 02/2019 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 No signs or symptoms of DVT/PE. The patient is at high risk for VTE. Plan: - Continue Lovenox 40mg daily SC. - SCD/KAIA - Encourage continued ambulation . DISPOSITION AND FOLLOW-UP 10/23/20132013 Overview: Patient is and lives in [place], [place]. At this time, we anticipate that the patient will be discharged home once clinically stable. Plan: - Discuss needs with patient. - Collaborate with Case management to facilitate DC process - Will likely need home oxygen. Desat study ordered. . Tobacco abuse 10/23/2013 11/12/2013 Overview: Active smoker of 75 pack years. Benefits of smoking cessation discussed and patient states she is actively trying to quit (down to less than a pack per day from 1.5 pack per day). Continued to reinforce need to stop smoking. Is being discharged on home oxygen. Plan -Continue to encourage smoking cessation. -Start nicotine patch . Acute postoperative pain 10/23/2013 014 Overview: Patient states adequate pain control with Vicodin, oxycodone, and Motrin added in an attempt to transition to all oral pain regimen. Plan -Patient will be discharged on Oxycodone and home dosing of Naprosyn -Monitor pain, reassess to keep at pain level 4 or below. . Atelectasis 10/23/2013 10/24/2013 Overview: S/P right VATS upper lobectomy 10/23/13. Wearing 2 L/min oxygen, 95% pulse ox. CXR shows bilateral atelectasis. PLAN: -Bronchopulmonary hygiene, cough, deep breathe, acapella use, frequent ambulation. . Rt VATS Wedge, then RULobectomy 10/20/2013 10/14/2015 Overview: Patient is an active smoker of 75 pack years, presented with a 1.4 cm spiculated, cavitary lesion in the right upper lung. PET scan showed increased uptake in the lesion with an SUV 5.5 and no evidence of hilar, mediastinal or extrathoracic disease. On 10/22/13, Dr. Calvert performed right VATS, right upper lobectomy, and lymphadenectomy (R2, R4, 7). Plan:: -Pain management -Out of bed, frequent ambulation -cough/deep breathe, acapella -regular diet -respiratory therapy- Desat study for home oxygen . Pain in joint, lower leg 05/01/2013 014 Tear of meniscus of left knee 02/16/2013 Fatigue 12/01/2012 11/12/2013 Snoring 12/01/2012 11/12/2013 Hyperglycemia 05/28/2012 01/02/2017 Mastalgia 09/04/2011 11/12/2013 CHRONIC AIRWAY OBSTRUCTION NEC 0 10/14/2015 Unspecified asthma(493.90) 11/21 Osteoporosis, unspecified 2020 History of lung cancer 6 Overview: squamous cell documented as of this encounter (statuses as of 02/17/2022) [facility] History of Past illness Narrative* Problem Noted Date Resolved Date EKG abnormality 07/14/2021 07/17/2021 EKG abnormalities 03/22/2021 03/25/2021 Overview: EK03/20/[address]-T changes with some terminal T wave inversions V1 through V4 not present on EKG 01/12/2021 On apixaban therapy 03/21/2021 08/01/2021 Overview: For prior pulmonary embolus Shortness of breath 12/15/2020 03/21/2021 Nausea and vomiting 12/15/2020 03/21/2021 Generalized weakness 12/15/2020 03/21/2021 Abnormal urinalysis 12/15/2020 03/21/2021 Acute deep vein thrombosis ( DVT) of distal vein of left lower extremity 10/26/2020 03/21/2021 Change in bowel habit 07/08/2019 03/21/2021 Prediabetes 05/13/2019 03/21/2021 Type 2 diabetes mellitus without retinopathy 01/201903/21/2021 DM (diabetes mellitus) 01/02/2017 Last Assessment & Plan: Assessment: on oral agent, last A1c 6.1 02/2019 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 No signs or symptoms of DVT/PE. The patient is at high risk for VTE. Plan: - Continue Lovenox 40mg daily SC. - SCD/KAIA - Encourage continued ambulation . DISPOSITION AND FOLLOW-UP 10/23/20132013 Overview: Patient is and lives in [place], [place]. At this time, we anticipate that the patient will be discharged home once clinically stable. Plan: - Discuss needs with patient. - Collaborate with Case management to facilitate DC process - Will likely need home oxygen. Desat study ordered. . Tobacco abuse 10/23/2013 11/12/2013 Overview: Active smoker of 75 pack years. Benefits of smoking cessation discussed and patient states she is actively trying to quit (down to less than a pack per day from 1.5 pack per day). Continued to reinforce need to stop smoking. Is being discharged on home oxygen. Plan -Continue to encourage smoking cessation. -Start nicotine patch . Acute postoperative pain 10/23/2013 014 Overview: Patient states adequate pain control with Vicodin, oxycodone, and Motrin added in an attempt to transition to all oral pain regimen. Plan -Patient will be discharged on Oxycodone and home dosing of Naprosyn -Monitor pain, reassess to keep at pain level 4 or below. . Atelectasis 10/23/2013 10/24/2013 Overview: S/P right VATS upper lobectomy 10/23/13. Wearing 2 L/min oxygen, 95% pulse ox. CXR shows bilateral atelectasis. PLAN: -Bronchopulmonary hygiene, cough, deep breathe, acapella use, frequent ambulation. . Rt VATS Wedge, then RULobectomy 10/20/2013 10/14/2015 Overview: Patient is an active smoker of 75 pack years, presented with a 1.4 cm spiculated, cavitary lesion in the right upper lung. PET scan showed increased uptake in the lesion with an SUV 5.5 and no evidence of hilar, mediastinal or extrathoracic disease. On 10/22/13, Dr. Calvert performed right VATS, right upper lobectomy, and lymphadenectomy (R2, R4, 7). Plan:: -Pain management -Out of bed, frequent ambulation -cough/deep breathe, acapella -regular diet -respiratory therapy- Desat study for home oxygen . Pain in joint, lower leg 05/01/2013 014 Tear of meniscus of left knee 02/16/2013 Fatigue 12/01/2012 11/12/2013 Snoring 12/01/2012 11/12/2013 Hyperglycemia 05/28/2012 01/02/2017 Mastalgia 09/04/2011 11/12/2013 CHRONIC AIRWAY OBSTRUCTION NEC 0 10/14/2015 Unspecified asthma(493.90) 11/21 Osteoporosis, unspecified 2020 History of lung cancer 6 Overview: squamous cell documented as of this encounter (statuses as of 02/19/2022) [facility] History of Past illness Narrative* Problem Noted Date Resolved Date EKG abnormality 07/14/2021 07/17/2021 EKG abnormalities 03/22/2021 03/25/2021 Overview: EK03/20/[address]-T changes with some terminal T wave inversions V1 through V4 not present on EKG 01/12/2021 On apixaban therapy 03/21/2021 08/01/2021 Overview: For prior pulmonary embolus Shortness of breath 12/15/2020 03/21/2021 Nausea and vomiting 12/15/2020 03/21/2021 Generalized weakness 12/15/2020 03/21/2021 Abnormal urinalysis 12/15/2020 03/21/2021 Acute deep vein thrombosis ( DVT) of distal vein of left lower extremity 10/26/2020 03/21/2021 Change in bowel habit 07/08/2019 03/21/2021 Prediabetes 05/13/2019 03/21/2021 Type 2 diabetes mellitus without retinopathy 01/201903/21/2021 DM (diabetes mellitus) 01/02/2017 Last Assessment & Plan: Assessment: on oral agent, last A1c 6.1 02/2019 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 No signs or symptoms of DVT/PE. The patient is at high risk for VTE. Plan: - Continue Lovenox 40mg daily SC. - SCD/KAIA - Encourage continued ambulation . DISPOSITION AND FOLLOW-UP 10/23/20132013 Overview: Patient is and lives in [place], [place]. At this time, we anticipate that the patient will be discharged home once clinically stable. Plan: - Discuss needs with patient. - Collaborate with Case management to facilitate DC process - Will likely need home oxygen. Desat study ordered. . Tobacco abuse 10/23/2013 11/12/2013 Overview: Active smoker of 75 pack years. Benefits of smoking cessation discussed and patient states she is actively trying to quit (down to less than a pack per day from 1.5 pack per day). Continued to reinforce need to stop smoking. Is being discharged on home oxygen. Plan -Continue to encourage smoking cessation. -Start nicotine patch . Acute postoperative pain 10/23/2013 014 Overview: Patient states adequate pain control with Vicodin, oxycodone, and Motrin added in an attempt to transition to all oral pain regimen. Plan -Patient will be discharged on Oxycodone and home dosing of Naprosyn -Monitor pain, reassess to keep at pain level 4 or below. . Atelectasis 10/23/2013 10/24/2013 Overview: S/P right VATS upper lobectomy 10/23/13. Wearing 2 L/min oxygen, 95% pulse ox. CXR shows bilateral atelectasis. PLAN: -Bronchopulmonary hygiene, cough, deep breathe, acapella use, frequent ambulation. . Rt VATS Wedge, then RULobectomy 10/20/2013 10/14/2015 Overview: Patient is an active smoker of 75 pack years, presented with a 1.4 cm spiculated, cavitary lesion in the right upper lung. PET scan showed increased uptake in the lesion with an SUV 5.5 and no evidence of hilar, mediastinal or extrathoracic disease. On 10/22/13, Dr. Calvert performed right VATS, right upper lobectomy, and lymphadenectomy (R2, R4, 7). Plan:: -Pain management -Out of bed, frequent ambulation -cough/deep breathe, acapella -regular diet -respiratory therapy- Desat study for home oxygen . Pain in joint, lower leg 05/01/2013 014 Tear of meniscus of left knee 02/16/2013 Fatigue 12/01/2012 11/12/2013 Snoring 12/01/2012 11/12/2013 Hyperglycemia 05/28/2012 01/02/2017 Mastalgia 09/04/2011 11/12/2013 CHRONIC AIRWAY OBSTRUCTION NEC 0 10/14/2015 Unspecified asthma(493.90) 11/21 Osteoporosis, unspecified 2020 History of lung cancer 6 Overview: squamous cell documented as of this encounter (statuses as of 02/20/2022) [facility] History of Past illness Narrative* Problem Noted Date Resolved Date EKG abnormality 07/14/2021 07/17/2021 EKG abnormalities 03/22/2021 03/25/2021 Overview: EK03/20/[address]-T changes with some terminal T wave inversions V1 through V4 not present on EKG 01/12/2021 On apixaban therapy 03/21/2021 08/01/2021 Overview: For prior pulmonary embolus Shortness of breath 12/15/2020 03/21/2021 Nausea and vomiting 12/15/2020 03/21/2021 Generalized weakness 12/15/2020 03/21/2021 Abnormal urinalysis 12/15/2020 03/21/2021 Acute deep vein thrombosis ( DVT) of distal vein of left lower extremity 10/26/2020 03/21/2021 Change in bowel habit 07/08/2019 03/21/2021 Prediabetes 05/13/2019 03/21/2021 Type 2 diabetes mellitus without retinopathy 01/201903/21/2021 DM (diabetes mellitus) 01/02/2017 Last Assessment & Plan: Assessment: on oral agent, last A1c 6.1 02/2019 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 No signs or symptoms of DVT/PE. The patient is at high risk for VTE. Plan: - Continue Lovenox 40mg daily SC. - SCD/KAIA - Encourage continued ambulation . DISPOSITION AND FOLLOW-UP 10/23/20132013 Overview: Patient is and lives in [place], [place]. At this time, we anticipate that the patient will be discharged home once clinically stable. Plan: - Discuss needs with patient. - Collaborate with Case management to facilitate DC process - Will likely need home oxygen. Desat study ordered. . Tobacco abuse 10/23/2013 11/12/2013 Overview: Active smoker of 75 pack years. Benefits of smoking cessation discussed and patient states she is actively trying to quit (down to less than a pack per day from 1.5 pack per day). Continued to reinforce need to stop smoking. Is being discharged on home oxygen. Plan -Continue to encourage smoking cessation. -Start nicotine patch . Acute postoperative pain 10/23/2013 014 Overview: Patient states adequate pain control with Vicodin, oxycodone, and Motrin added in an attempt to transition to all oral pain regimen. Plan -Patient will be discharged on Oxycodone and home dosing of Naprosyn -Monitor pain, reassess to keep at pain level 4 or below. . Atelectasis 10/23/2013 10/24/2013 Overview: S/P right VATS upper lobectomy 10/23/13. Wearing 2 L/min oxygen, 95% pulse ox. CXR shows bilateral atelectasis. PLAN: -Bronchopulmonary hygiene, cough, deep breathe, acapella use, frequent ambulation. . Rt VATS Wedge, then RULobectomy 10/20/2013 10/14/2015 Overview: Patient is an active smoker of 75 pack years, presented with a 1.4 cm spiculated, cavitary lesion in the right upper lung. PET scan showed increased uptake in the lesion with an SUV 5.5 and no evidence of hilar, mediastinal or extrathoracic disease. On 10/22/13, Dr. Calvert performed right VATS, right upper lobectomy, and lymphadenectomy (R2, R4, 7). Plan:: -Pain management -Out of bed, frequent ambulation -cough/deep breathe, acapella -regular diet -respiratory therapy- Desat study for home oxygen . Pain in joint, lower leg 05/01/2013 014 Tear of meniscus of left knee 02/16/2013 Fatigue 12/01/2012 11/12/2013 Snoring 12/01/2012 11/12/2013 Hyperglycemia 05/28/2012 01/02/2017 Mastalgia 09/04/2011 11/12/2013 CHRONIC AIRWAY OBSTRUCTION NEC 0 10/14/2015 Unspecified asthma(493.90) 11/21 Osteoporosis, unspecified 2020 History of lung cancer 6 Overview: squamous cell documented as of this encounter (statuses as of 02/22/2022) [facility]21 History of Past illness Narrative* Problem Noted Date Resolved Date EKG abnormality 07/14/2021 07/17/2021 EKG abnormalities 03/22/2021 03/25/2021 Overview: EK03/20/[address]-T changes with some terminal T wave inversions V1 through V4 not present on EKG 01/12/2021 On apixaban therapy 03/21/2021 08/01/2021 Overview: For prior pulmonary embolus Shortness of breath 12/15/2020 03/21/2021 Nausea and vomiting 12/15/2020 03/21/2021 Generalized weakness 12/15/2020 03/21/2021 Abnormal urinalysis 12/15/2020 03/21/2021 Acute deep vein thrombosis ( DVT) of distal vein of left lower extremity 10/26/2020 03/21/2021 Change in bowel habit 07/08/2019 03/21/2021 Prediabetes 05/13/2019 03/21/2021 Type 2 diabetes mellitus without retinopathy 01/201903/21/2021 DM (diabetes mellitus) 01/02/2017 Last Assessment & Plan: Assessment: on oral agent, last A1c 6.1 02/2019 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 No signs or symptoms of DVT/PE. The patient is at high risk for VTE. Plan: - Continue Lovenox 40mg daily SC. - SCD/KAIA - Encourage continued ambulation . DISPOSITION AND FOLLOW-UP 10/23/20132013 Overview: Patient is and lives in [place], [place]. At this time, we anticipate that the patient will be discharged home once clinically stable. Plan: - Discuss needs with patient. - Collaborate with Case management to facilitate DC process - Will likely need home oxygen. Desat study ordered. . Tobacco abuse 10/23/2013 11/12/2013 Overview: Active smoker of 75 pack years. Benefits of smoking cessation discussed and patient states she is actively trying to quit (down to less than a pack per day from 1.5 pack per day). Continued to reinforce need to stop smoking. Is being discharged on home oxygen. Plan -Continue to encourage smoking cessation. -Start nicotine patch . Acute postoperative pain 10/23/2013 014 Overview: Patient states adequate pain control with Vicodin, oxycodone, and Motrin added in an attempt to transition to all oral pain regimen. Plan -Patient will be discharged on Oxycodone and home dosing of Naprosyn -Monitor pain, reassess to keep at pain level 4 or below. . Atelectasis 10/23/2013 10/24/2013 Overview: S/P right VATS upper lobectomy 10/23/13. Wearing 2 L/min oxygen, 95% pulse ox. CXR shows bilateral atelectasis. PLAN: -Bronchopulmonary hygiene, cough, deep breathe, acapella use, frequent ambulation. . Rt VATS Wedge, then RULobectomy 10/20/2013 10/14/2015 Overview: Patient is an active smoker of 75 pack years, presented with a 1.4 cm spiculated, cavitary lesion in the right upper lung. PET scan showed increased uptake in the lesion with an SUV 5.5 and no evidence of hilar, mediastinal or extrathoracic disease. On 10/22/13, Dr. Calvert performed right VATS, right upper lobectomy, and lymphadenectomy (R2, R4, 7). Plan:: -Pain management -Out of bed, frequent ambulation -cough/deep breathe, acapella -regular diet -respiratory therapy- Desat study for home oxygen . Pain in joint, lower leg 05/01/2013 014 Tear of meniscus of left knee 02/16/2013 Fatigue 12/01/2012 11/12/2013 Snoring 12/01/2012 11/12/2013 Hyperglycemia 05/28/2012 01/02/2017 Mastalgia 09/04/2011 11/12/2013 CHRONIC AIRWAY OBSTRUCTION NEC 0 10/14/2015 Unspecified asthma(493.90) 11/21 Osteoporosis, unspecified 2020 History of lung cancer 6 Overview: squamous cell documented as of this encounter (statuses as of 02/27/2022) [facility] History of Past illness Narrative* Problem Noted Date Resolved Date EKG abnormality 07/14/2021 07/17/2021 EKG abnormalities 03/22/2021 03/25/2021 Overview: EK03/20/[address]-T changes with some terminal T wave inversions V1 through V4 not present on EKG 01/12/2021 On apixaban therapy 03/21/2021 08/01/2021 Overview: For prior pulmonary embolus Shortness of breath 12/15/2020 03/21/2021 Nausea and vomiting 12/15/2020 03/21/2021 Generalized weakness 12/15/2020 03/21/2021 Abnormal urinalysis 12/15/2020 03/21/2021 Acute deep vein thrombosis ( DVT) of distal vein of left lower extremity 10/26/2020 03/21/2021 Change in bowel habit 07/08/2019 03/21/2021 Prediabetes 05/13/2019 03/21/2021 Type 2 diabetes mellitus without retinopathy 01/201903/21/2021 DM (diabetes mellitus) 01/02/2017 Last Assessment & Plan: Assessment: on oral agent, last A1c 6.1 02/2019 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 No signs or symptoms of DVT/PE. The patient is at high risk for VTE. Plan: - Continue Lovenox 40mg daily SC. - SCD/KAIA - Encourage continued ambulation . DISPOSITION AND FOLLOW-UP 10/23/20132013 Overview: Patient is and lives in [place], [place]. At this time, we anticipate that the patient will be discharged home once clinically stable. Plan: - Discuss needs with patient. - Collaborate with Case management to facilitate DC process - Will likely need home oxygen. Desat study ordered. . Tobacco abuse 10/23/2013 11/12/2013 Overview: Active smoker of 75 pack years. Benefits of smoking cessation discussed and patient states she is actively trying to quit (down to less than a pack per day from 1.5 pack per day). Continued to reinforce need to stop smoking. Is being discharged on home oxygen. Plan -Continue to encourage smoking cessation. -Start nicotine patch . Acute postoperative pain 10/23/2013 014 Overview: Patient states adequate pain control with Vicodin, oxycodone, and Motrin added in an attempt to transition to all oral pain regimen. Plan -Patient will be discharged on Oxycodone and home dosing of Naprosyn -Monitor pain, reassess to keep at pain level 4 or below. . Atelectasis 10/23/2013 10/24/2013 Overview: S/P right VATS upper lobectomy 10/23/13. Wearing 2 L/min oxygen, 95% pulse ox. CXR shows bilateral atelectasis. PLAN: -Bronchopulmonary hygiene, cough, deep breathe, acapella use, frequent ambulation. . Rt VATS Wedge, then RULobectomy 10/20/2013 10/14/2015 Overview: Patient is an active smoker of 75 pack years, presented with a 1.4 cm spiculated, cavitary lesion in the right upper lung. PET scan showed increased uptake in the lesion with an SUV 5.5 and no evidence of hilar, mediastinal or extrathoracic disease. On 10/22/13, Dr. Calvert performed right VATS, right upper lobectomy, and lymphadenectomy (R2, R4, 7). Plan:: -Pain management -Out of bed, frequent ambulation -cough/deep breathe, acapella -regular diet -respiratory therapy- Desat study for home oxygen . Pain in joint, lower leg 05/01/2013 014 Tear of meniscus of left knee 02/16/2013 Fatigue 12/01/2012 11/12/2013 Snoring 12/01/2012 11/12/2013 Hyperglycemia 05/28/2012 01/02/2017 Mastalgia 09/04/2011 11/12/2013 CHRONIC AIRWAY OBSTRUCTION NEC 0 10/14/2015 Unspecified asthma(493.90) 11/21 Osteoporosis, unspecified 2020 History of lung cancer 6 Overview: squamous cell documented as of this encounter (statuses as of 02/27/2022) [facility] History of Past illness Narrative* Problem Noted Date Resolved Date EKG abnormality 07/14/2021 07/17/2021 EKG abnormalities 03/22/2021 03/25/2021 Overview: EK03/20/[address]-T changes with some terminal T wave inversions V1 through V4 not present on EKG 01/12/2021 On apixaban therapy 03/21/2021 08/01/2021 Overview: For prior pulmonary embolus Shortness of breath 12/15/2020 03/21/2021 Nausea and vomiting 12/15/2020 03/21/2021 Generalized weakness 12/15/2020 03/21/2021 Abnormal urinalysis 12/15/2020 03/21/2021 Acute deep vein thrombosis ( DVT) of distal vein of left lower extremity 10/26/2020 03/21/2021 Change in bowel habit 07/08/2019 03/21/2021 Prediabetes 05/13/2019 03/21/2021 Type 2 diabetes mellitus without retinopathy 01/201903/21/2021 DM (diabetes mellitus) 01/02/2017 Last Assessment & Plan: Assessment: on oral agent, last A1c 6.1 02/2019 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 No signs or symptoms of DVT/PE. The patient is at high risk for VTE. Plan: - Continue Lovenox 40mg daily SC. - SCD/KAIA - Encourage continued ambulation . DISPOSITION AND FOLLOW-UP 10/23/20132013 Overview: Patient is and lives in [place], [place]. At this time, we anticipate that the patient will be discharged home once clinically stable. Plan: - Discuss needs with patient. - Collaborate with Case management to facilitate DC process - Will likely need home oxygen. Desat study ordered. . Tobacco abuse 10/23/2013 11/12/2013 Overview: Active smoker of 75 pack years. Benefits of smoking cessation discussed and patient states she is actively trying to quit (down to less than a pack per day from 1.5 pack per day). Continued to reinforce need to stop smoking. Is being discharged on home oxygen. Plan -Continue to encourage smoking cessation. -Start nicotine patch . Acute postoperative pain 10/23/2013 014 Overview: Patient states adequate pain control with Vicodin, oxycodone, and Motrin added in an attempt to transition to all oral pain regimen. Plan -Patient will be discharged on Oxycodone and home dosing of Naprosyn -Monitor pain, reassess to keep at pain level 4 or below. . Atelectasis 10/23/2013 10/24/2013 Overview: S/P right VATS upper lobectomy 10/23/13. Wearing 2 L/min oxygen, 95% pulse ox. CXR shows bilateral atelectasis. PLAN: -Bronchopulmonary hygiene, cough, deep breathe, acapella use, frequent ambulation. . Rt VATS Wedge, then RULobectomy 10/20/2013 10/14/2015 Overview: Patient is an active smoker of 75 pack years, presented with a 1.4 cm spiculated, cavitary lesion in the right upper lung. PET scan showed increased uptake in the lesion with an SUV 5.5 and no evidence of hilar, mediastinal or extrathoracic disease. On 10/22/13, Dr. Calvert performed right VATS, right upper lobectomy, and lymphadenectomy (R2, R4, 7). Plan:: -Pain management -Out of bed, frequent ambulation -cough/deep breathe, acapella -regular diet -respiratory therapy- Desat study for home oxygen . Pain in joint, lower leg 05/01/2013 014 Tear of meniscus of left knee 02/16/2013 Fatigue 12/01/2012 11/12/2013 Snoring 12/01/2012 11/12/2013 Hyperglycemia 05/28/2012 01/02/2017 Mastalgia 09/04/2011 11/12/2013 CHRONIC AIRWAY OBSTRUCTION NEC 0 10/14/2015 Unspecified asthma(493.90) 11/21 Osteoporosis, unspecified 2020 History of lung cancer 6 Overview: squamous cell documented as of this encounter (statuses as of 02/28/2022) [facility] History of Past illness Narrative* Problem Noted Date Resolved Date EKG abnormality 07/14/2021 07/17/2021 EKG abnormalities 03/22/2021 03/25/2021 Overview: EK03/20/[address]-T changes with some terminal T wave inversions V1 through V4 not present on EKG 01/12/2021 On apixaban therapy 03/21/2021 08/01/2021 Overview: For prior pulmonary embolus Shortness of breath 12/15/2020 03/21/2021 Nausea and vomiting 12/15/2020 03/21/2021 Generalized weakness 12/15/2020 03/21/2021 Abnormal urinalysis 12/15/2020 03/21/2021 Acute deep vein thrombosis ( DVT) of distal vein of left lower extremity 10/26/2020 03/21/2021 Change in bowel habit 07/08/2019 03/21/2021 Prediabetes 05/13/2019 03/21/2021 Type 2 diabetes mellitus without retinopathy 01/201903/21/2021 DM (diabetes mellitus) 01/02/2017 Last Assessment & Plan: Assessment: on oral agent, last A1c 6.1 02/2019 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 No signs or symptoms of DVT/PE. The patient is at high risk for VTE. Plan: - Continue Lovenox 40mg daily SC. - SCD/KAIA - Encourage continued ambulation . DISPOSITION AND FOLLOW-UP 10/23/20132013 Overview: Patient is and lives in [place], [place]. At this time, we anticipate that the patient will be discharged home once clinically stable. Plan: - Discuss needs with patient. - Collaborate with Case management to facilitate DC process - Will likely need home oxygen. Desat study ordered. . Tobacco abuse 10/23/2013 11/12/2013 Overview: Active smoker of 75 pack years. Benefits of smoking cessation discussed and patient states she is actively trying to quit (down to less than a pack per day from 1.5 pack per day). Continued to reinforce need to stop smoking. Is being discharged on home oxygen. Plan -Continue to encourage smoking cessation. -Start nicotine patch . Acute postoperative pain 10/23/2013 014 Overview: Patient states adequate pain control with Vicodin, oxycodone, and Motrin added in an attempt to transition to all oral pain regimen. Plan -Patient will be discharged on Oxycodone and home dosing of Naprosyn -Monitor pain, reassess to keep at pain level 4 or below. . Atelectasis 10/23/2013 10/24/2013 Overview: S/P right VATS upper lobectomy 10/23/13. Wearing 2 L/min oxygen, 95% pulse ox. CXR shows bilateral atelectasis. PLAN: -Bronchopulmonary hygiene, cough, deep breathe, acapella use, frequent ambulation. . Rt VATS Wedge, then RULobectomy 10/20/2013 10/14/2015 Overview: Patient is an active smoker of 75 pack years, presented with a 1.4 cm spiculated, cavitary lesion in the right upper lung. PET scan showed increased uptake in the lesion with an SUV 5.5 and no evidence of hilar, mediastinal or extrathoracic disease. On 10/22/13, Dr. Calvert performed right VATS, right upper lobectomy, and lymphadenectomy (R2, R4, 7). Plan:: -Pain management -Out of bed, frequent ambulation -cough/deep breathe, acapella -regular diet -respiratory therapy- Desat study for home oxygen . Pain in joint, lower leg 05/01/2013 014 Tear of meniscus of left knee 02/16/2013 Fatigue 12/01/2012 11/12/2013 Snoring 12/01/2012 11/12/2013 Hyperglycemia 05/28/2012 01/02/2017 Mastalgia 09/04/2011 11/12/2013 CHRONIC AIRWAY OBSTRUCTION NEC 0 10/14/2015 Unspecified asthma(493.90) 11/21 Osteoporosis, unspecified 2020 History of lung cancer 6 Overview: squamous cell documented as of this encounter (statuses as of 03/05/2022) [facility] History of Past illness Narrative* Problem Noted Date Resolved Date EKG abnormality 07/14/2021 07/17/2021 EKG abnormalities 03/22/2021 03/25/2021 Overview: EK03/20/[address]-T changes with some terminal T wave inversions V1 through V4 not present on EKG 01/12/2021 On apixaban therapy 03/21/2021 08/01/2021 Overview: For prior pulmonary embolus Shortness of breath 12/15/2020 03/21/2021 Nausea and vomiting 12/15/2020 03/21/2021 Generalized weakness 12/15/2020 03/21/2021 Abnormal urinalysis 12/15/2020 03/21/2021 Acute deep vein thrombosis ( DVT) of distal vein of left lower extremity 10/26/2020 03/21/2021 Change in bowel habit 07/08/2019 03/21/2021 Prediabetes 05/13/2019 03/21/2021 Type 2 diabetes mellitus without retinopathy 01/201903/21/2021 DM (diabetes mellitus) 01/02/2017 Last Assessment & Plan: Assessment: on oral agent, last A1c 6.1 02/2019 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 No signs or symptoms of DVT/PE. The patient is at high risk for VTE. Plan: - Continue Lovenox 40mg daily SC. - SCD/KAIA - Encourage continued ambulation . DISPOSITION AND FOLLOW-UP 10/23/20132013 Overview: Patient is and lives in [place], [place]. At this time, we anticipate that the patient will be discharged home once clinically stable. Plan: - Discuss needs with patient. - Collaborate with Case management to facilitate DC process - Will likely need home oxygen. Desat study ordered. . Tobacco abuse 10/23/2013 11/12/2013 Overview: Active smoker of 75 pack years. Benefits of smoking cessation discussed and patient states she is actively trying to quit (down to less than a pack per day from 1.5 pack per day). Continued to reinforce need to stop smoking. Is being discharged on home oxygen. Plan -Continue to encourage smoking cessation. -Start nicotine patch . Acute postoperative pain 10/23/2013 014 Overview: Patient states adequate pain control with Vicodin, oxycodone, and Motrin added in an attempt to transition to all oral pain regimen. Plan -Patient will be discharged on Oxycodone and home dosing of Naprosyn -Monitor pain, reassess to keep at pain level 4 or below. . Atelectasis 10/23/2013 10/24/2013 Overview: S/P right VATS upper lobectomy 10/23/13. Wearing 2 L/min oxygen, 95% pulse ox. CXR shows bilateral atelectasis. PLAN: -Bronchopulmonary hygiene, cough, deep breathe, acapella use, frequent ambulation. . Rt VATS Wedge, then RULobectomy 10/20/2013 10/14/2015 Overview: Patient is an active smoker of 75 pack years, presented with a 1.4 cm spiculated, cavitary lesion in the right upper lung. PET scan showed increased uptake in the lesion with an SUV 5.5 and no evidence of hilar, mediastinal or extrathoracic disease. On 10/22/13, Dr. Calvert performed right VATS, right upper lobectomy, and lymphadenectomy (R2, R4, 7). Plan:: -Pain management -Out of bed, frequent ambulation -cough/deep breathe, acapella -regular diet -respiratory therapy- Desat study for home oxygen . Pain in joint, lower leg 05/01/2013 014 Tear of meniscus of left knee 02/16/2013 Fatigue 12/01/2012 11/12/2013 Snoring 12/01/2012 11/12/2013 Hyperglycemia 05/28/2012 01/02/2017 Mastalgia 09/04/2011 11/12/2013 CHRONIC AIRWAY OBSTRUCTION NEC 0 10/14/2015 Unspecified asthma(493.90) 11/21 Osteoporosis, unspecified 2020 History of lung cancer 6 Overview: squamous cell documented as of this encounter (statuses as of 03/14/2022) [facility] History of Past illness Narrative* Problem Noted Date Resolved Date EKG abnormality 07/14/2021 07/17/2021 EKG abnormalities 03/22/2021 03/25/2021 Overview: EK03/20/[address]-T changes with some terminal T wave inversions V1 through V4 not present on EKG 01/12/2021 On apixaban therapy 03/21/2021 08/01/2021 Overview: For prior pulmonary embolus Shortness of breath 12/15/2020 03/21/2021 Nausea and vomiting 12/15/2020 03/21/2021 Generalized weakness 12/15/2020 03/21/2021 Abnormal urinalysis 12/15/2020 03/21/2021 Acute deep vein thrombosis ( DVT) of distal vein of left lower extremity 10/26/2020 03/21/2021 Change in bowel habit 07/08/2019 03/21/2021 Prediabetes 05/13/2019 03/21/2021 Type 2 diabetes mellitus without retinopathy 01/201903/21/2021 DM (diabetes mellitus) 01/02/2017 Last Assessment & Plan: Assessment: on oral agent, last A1c 6.1 02/2019 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 No signs or symptoms of DVT/PE. The patient is at high risk for VTE. Plan: - Continue Lovenox 40mg daily SC. - SCD/KAIA - Encourage continued ambulation . DISPOSITION AND FOLLOW-UP 10/23/20132013 Overview: Patient is and lives in [place], [place]. At this time, we anticipate that the patient will be discharged home once clinically stable. Plan: - Discuss needs with patient. - Collaborate with Case management to facilitate DC process - Will likely need home oxygen. Desat study ordered. . Tobacco abuse 10/23/2013 11/12/2013 Overview: Active smoker of 75 pack years. Benefits of smoking cessation discussed and patient states she is actively trying to quit (down to less than a pack per day from 1.5 pack per day). Continued to reinforce need to stop smoking. Is being discharged on home oxygen. Plan -Continue to encourage smoking cessation. -Start nicotine patch . Acute postoperative pain 10/23/2013 014 Overview: Patient states adequate pain control with Vicodin, oxycodone, and Motrin added in an attempt to transition to all oral pain regimen. Plan -Patient will be discharged on Oxycodone and home dosing of Naprosyn -Monitor pain, reassess to keep at pain level 4 or below. . Atelectasis 10/23/2013 10/24/2013 Overview: S/P right VATS upper lobectomy 10/23/13. Wearing 2 L/min oxygen, 95% pulse ox. CXR shows bilateral atelectasis. PLAN: -Bronchopulmonary hygiene, cough, deep breathe, acapella use, frequent ambulation. . Rt VATS Wedge, then RULobectomy 10/20/2013 10/14/2015 Overview: Patient is an active smoker of 75 pack years, presented with a 1.4 cm spiculated, cavitary lesion in the right upper lung. PET scan showed increased uptake in the lesion with an SUV 5.5 and no evidence of hilar, mediastinal or extrathoracic disease. On 10/22/13, Dr. Calvert performed right VATS, right upper lobectomy, and lymphadenectomy (R2, R4, 7). Plan:: -Pain management -Out of bed, frequent ambulation -cough/deep breathe, acapella -regular diet -respiratory therapy- Desat study for home oxygen . Pain in joint, lower leg 05/01/2013 014 Tear of meniscus of left knee 02/16/2013 Fatigue 12/01/2012 11/12/2013 Snoring 12/01/2012 11/12/2013 Hyperglycemia 05/28/2012 01/02/2017 Mastalgia 09/04/2011 11/12/2013 CHRONIC AIRWAY OBSTRUCTION NEC 0 10/14/2015 Unspecified asthma(493.90) 11/21 Osteoporosis, unspecified 2020 History of lung cancer 6 Overview: squamous cell documented as of this encounter (statuses as of 03/15/2022) [facility]11-[facility]21 History of Past illness Narrative* Problem Noted Date Resolved Date EKG abnormality 07/14/2021 07/17/2021 EKG abnormalities 03/22/2021 03/25/2021 Overview: EK03/20/[address]-T changes with some terminal T wave inversions V1 through V4 not present on EKG 01/12/2021 On apixaban therapy 03/21/2021 08/01/2021 Overview: For prior pulmonary embolus Shortness of breath 12/15/2020 03/21/2021 Nausea and vomiting 12/15/2020 03/21/2021 Generalized weakness 12/15/2020 03/21/2021 Abnormal urinalysis 12/15/2020 03/21/2021 Acute deep vein thrombosis ( DVT) of distal vein of left lower extremity 10/26/2020 03/21/2021 Change in bowel habit 07/08/2019 03/21/2021 Prediabetes 05/13/2019 03/21/2021 Type 2 diabetes mellitus without retinopathy 01/201903/21/2021 DM (diabetes mellitus) 01/02/2017 Last Assessment & Plan: Assessment: on oral agent, last A1c 6.1 02/2019 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 No signs or symptoms of DVT/PE. The patient is at high risk for VTE. Plan: - Continue Lovenox 40mg daily SC. - SCD/KAIA - Encourage continued ambulation . DISPOSITION AND FOLLOW-UP 10/23/20132013 Overview: Patient is and lives in [place], [place]. At this time, we anticipate that the patient will be discharged home once clinically stable. Plan: - Discuss needs with patient. - Collaborate with Case management to facilitate DC process - Will likely need home oxygen. Desat study ordered. . Tobacco abuse 10/23/2013 11/12/2013 Overview: Active smoker of 75 pack years. Benefits of smoking cessation discussed and patient states she is actively trying to quit (down to less than a pack per day from 1.5 pack per day). Continued to reinforce need to stop smoking. Is being discharged on home oxygen. Plan -Continue to encourage smoking cessation. -Start nicotine patch . Acute postoperative pain 10/23/2013 014 Overview: Patient states adequate pain control with Vicodin, oxycodone, and Motrin added in an attempt to transition to all oral pain regimen. Plan -Patient will be discharged on Oxycodone and home dosing of Naprosyn -Monitor pain, reassess to keep at pain level 4 or below. . Atelectasis 10/23/2013 10/24/2013 Overview: S/P right VATS upper lobectomy 10/23/13. Wearing 2 L/min oxygen, 95% pulse ox. CXR shows bilateral atelectasis. PLAN: -Bronchopulmonary hygiene, cough, deep breathe, acapella use, frequent ambulation. . Rt VATS Wedge, then RULobectomy 10/20/2013 10/14/2015 Overview: Patient is an active smoker of 75 pack years, presented with a 1.4 cm spiculated, cavitary lesion in the right upper lung. PET scan showed increased uptake in the lesion with an SUV 5.5 and no evidence of hilar, mediastinal or extrathoracic disease. On 10/22/13, Dr. Calvert performed right VATS, right upper lobectomy, and lymphadenectomy (R2, R4, 7). Plan:: -Pain management -Out of bed, frequent ambulation -cough/deep breathe, acapella -regular diet -respiratory therapy- Desat study for home oxygen . Pain in joint, lower leg 05/01/2013 014 Tear of meniscus of left knee 02/16/2013 Fatigue 12/01/2012 11/12/2013 Snoring 12/01/2012 11/12/2013 Hyperglycemia 05/28/2012 01/02/2017 Mastalgia 09/04/2011 11/12/2013 CHRONIC AIRWAY OBSTRUCTION NEC 0 10/14/2015 Unspecified asthma(493.90) 11/21 Osteoporosis, unspecified 2020 History of lung cancer 6 Overview: squamous cell documented as of this encounter (statuses as of 03/15/2022) [facility]11-19-[facility]21 History of Past illness Narrative* Problem Noted Date Resolved Date EKG abnormality 07/14/2021 07/17/2021 EKG abnormalities 03/22/2021 03/25/2021 Overview: EK03/20/[address]-T changes with some terminal T wave inversions V1 through V4 not present on EKG 01/12/2021 On apixaban therapy 03/21/2021 08/01/2021 Overview: For prior pulmonary embolus Shortness of breath 12/15/2020 03/21/2021 Nausea and vomiting 12/15/2020 03/21/2021 Generalized weakness 12/15/2020 03/21/2021 Abnormal urinalysis 12/15/2020 03/21/2021 Acute deep vein thrombosis ( DVT) of distal vein of left lower extremity 10/26/2020 03/21/2021 Change in bowel habit 07/08/2019 03/21/2021 Prediabetes 05/13/2019 03/21/2021 Type 2 diabetes mellitus without retinopathy 01/201903/21/2021 DM (diabetes mellitus) 01/02/2017 Last Assessment & Plan: Assessment: on oral agent, last A1c 6.1 02/2019 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 No signs or symptoms of DVT/PE. The patient is at high risk for VTE. Plan: - Continue Lovenox 40mg daily SC. - SCD/KAIA - Encourage continued ambulation . DISPOSITION AND FOLLOW-UP 10/23/20132013 Overview: Patient is and lives in [place], [place]. At this time, we anticipate that the patient will be discharged home once clinically stable. Plan: - Discuss needs with patient. - Collaborate with Case management to facilitate DC process - Will likely need home oxygen. Desat study ordered. . Tobacco abuse 10/23/2013 11/12/2013 Overview: Active smoker of 75 pack years. Benefits of smoking cessation discussed and patient states she is actively trying to quit (down to less than a pack per day from 1.5 pack per day). Continued to reinforce need to stop smoking. Is being discharged on home oxygen. Plan -Continue to encourage smoking cessation. -Start nicotine patch . Acute postoperative pain 10/23/2013 014 Overview: Patient states adequate pain control with Vicodin, oxycodone, and Motrin added in an attempt to transition to all oral pain regimen. Plan -Patient will be discharged on Oxycodone and home dosing of Naprosyn -Monitor pain, reassess to keep at pain level 4 or below. . Atelectasis 10/23/2013 10/24/2013 Overview: S/P right VATS upper lobectomy 10/23/13. Wearing 2 L/min oxygen, 95% pulse ox. CXR shows bilateral atelectasis. PLAN: -Bronchopulmonary hygiene, cough, deep breathe, acapella use, frequent ambulation. . Rt VATS Wedge, then RULobectomy 10/20/2013 10/14/2015 Overview: Patient is an active smoker of 75 pack years, presented with a 1.4 cm spiculated, cavitary lesion in the right upper lung. PET scan showed increased uptake in the lesion with an SUV 5.5 and no evidence of hilar, mediastinal or extrathoracic disease. On 10/22/13, Dr. Calvert performed right VATS, right upper lobectomy, and lymphadenectomy (R2, R4, 7). Plan:: -Pain management -Out of bed, frequent ambulation -cough/deep breathe, acapella -regular diet -respiratory therapy- Desat study for home oxygen . Pain in joint, lower leg 05/01/2013 014 Tear of meniscus of left knee 02/16/2013 Fatigue 12/01/2012 11/12/2013 Snoring 12/01/2012 11/12/2013 Hyperglycemia 05/28/2012 01/02/2017 Mastalgia 09/04/2011 11/12/2013 CHRONIC AIRWAY OBSTRUCTION NEC 0 10/14/2015 Unspecified asthma(493.90) 11/21 Osteoporosis, unspecified 2020 History of lung cancer 6 Overview: squamous cell documented as of this encounter (statuses as of 03/16/2022) [facility]11-[facility] History of Past illness Narrative* Problem Noted Date Resolved Date EKG abnormality 07/14/2021 07/17/2021 EKG abnormalities 03/22/2021 03/25/2021 Overview: EK03/20/[address]-T changes with some terminal T wave inversions V1 through V4 not present on EKG 01/12/2021 On apixaban therapy 03/21/2021 08/01/2021 Overview: For prior pulmonary embolus Shortness of breath 12/15/2020 03/21/2021 Nausea and vomiting 12/15/2020 03/21/2021 Generalized weakness 12/15/2020 03/21/2021 Abnormal urinalysis 12/15/2020 03/21/2021 Acute deep vein thrombosis ( DVT) of distal vein of left lower extremity 10/26/2020 03/21/2021 Change in bowel habit 07/08/2019 03/21/2021 Prediabetes 05/13/2019 03/21/2021 Type 2 diabetes mellitus without retinopathy 01/201903/21/2021 DM (diabetes mellitus) 01/02/2017 1 Last Assessment & Plan: Assessment: on oral agent, last A1c 6.1 02/2019 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 No signs or symptoms of DVT/PE. The patient is at high risk for VTE. Plan: - Continue Lovenox 40mg daily SC. - SCD/KAIA - Encourage continued ambulation . DISPOSITION AND FOLLOW-UP 10/23/20132013 Overview: Patient is and lives in [place], [place]. At this time, we anticipate that the patient will be discharged home once clinically stable. Plan: - Discuss needs with patient. - Collaborate with Case management to facilitate DC process - Will likely need home oxygen. Desat study ordered. . Tobacco abuse 10/23/2013 11/12/2013 Overview: Active smoker of 75 pack years. Benefits of smoking cessation discussed and patient states she is actively trying to quit (down to less than a pack per day from 1.5 pack per day). Continued to reinforce need to stop smoking. Is being discharged on home oxygen. Plan -Continue to encourage smoking cessation. -Start nicotine patch . Acute postoperative pain 10/23/2013 014 Overview: Patient states adequate pain control with Vicodin, oxycodone, and Motrin added in an attempt to transition to all oral pain regimen. Plan -Patient will be discharged on Oxycodone and home dosing of Naprosyn -Monitor pain, reassess to keep at pain level 4 or below. . Atelectasis 10/23/2013 10/24/2013 Overview: S/P right VATS upper lobectomy 10/23/13. Wearing 2 L/min oxygen, 95% pulse ox. CXR shows bilateral atelectasis. PLAN: -Bronchopulmonary hygiene, cough, deep breathe, acapella use, frequent ambulation. . Rt VATS Wedge, then RULobectomy 10/20/2013 10/14/2015 Overview: Patient is an active smoker of 75 pack years, presented with a 1.4 cm spiculated, cavitary lesion in the right upper lung. PET scan showed increased uptake in the lesion with an SUV 5.5 and no evidence of hilar, mediastinal or extrathoracic disease. On 10/22/13, Dr. Calvert performed right VATS, right upper lobectomy, and lymphadenectomy (R2, R4, 7). Plan:: -Pain management -Out of bed, frequent ambulation -cough/deep breathe, acapella -regular diet -respiratory therapy- Desat study for home oxygen . Pain in joint, lower leg 05/01/2013 014 Tear of meniscus of left knee 02/16/2013 Fatigue 12/01/2012 11/12/2013 Snoring 12/01/2012 11/12/2013 Hyperglycemia 05/28/2012 01/02/2017 Mastalgia 09/04/2011 11/12/2013 CHRONIC AIRWAY OBSTRUCTION NEC 0 10/14/2015 Unspecified asthma(493.90) 11/21 Osteoporosis, unspecified 2020 History of lung cancer 6 Overview: squamous cell documented as of this encounter (statuses as of 03/16/2022) [facility] History of Past illness Narrative* Problem Noted Date Resolved Date EKG abnormality 07/14/2021 07/17/2021 EKG abnormalities 03/22/2021 03/25/2021 Overview: EK03/20/[address]-T changes with some terminal T wave inversions V1 through V4 not present on EKG 01/12/2021 On apixaban therapy 03/21/2021 08/01/2021 Overview: For prior pulmonary embolus Shortness of breath 12/15/2020 03/21/2021 Nausea and vomiting 12/15/2020 03/21/2021 Generalized weakness 12/15/2020 03/21/2021 Abnormal urinalysis 12/15/2020 03/21/2021 Acute deep vein thrombosis ( DVT) of distal vein of left lower extremity 10/26/2020 03/21/2021 Change in bowel habit 07/08/2019 03/21/2021 Prediabetes 05/13/2019 03/21/2021 Type 2 diabetes mellitus without retinopathy 01/201903/21/2021 DM (diabetes mellitus) 01/02/2017 Last Assessment & Plan: Assessment: on oral agent, last A1c 6.1 02/2019 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 No signs or symptoms of DVT/PE. The patient is at high risk for VTE. Plan: - Continue Lovenox 40mg daily SC. - SCD/KAIA - Encourage continued ambulation . DISPOSITION AND FOLLOW-UP 10/23/20132013 Overview: Patient is and lives in [place], [place]. At this time, we anticipate that the patient will be discharged home once clinically stable. Plan: - Discuss needs with patient. - Collaborate with Case management to facilitate DC process - Will likely need home oxygen. Desat study ordered. . Tobacco abuse 10/23/2013 11/12/2013 Overview: Active smoker of 75 pack years. Benefits of smoking cessation discussed and patient states she is actively trying to quit (down to less than a pack per day from 1.5 pack per day). Continued to reinforce need to stop smoking. Is being discharged on home oxygen. Plan -Continue to encourage smoking cessation. -Start nicotine patch . Acute postoperative pain 10/23/2013 014 Overview: Patient states adequate pain control with Vicodin, oxycodone, and Motrin added in an attempt to transition to all oral pain regimen. Plan -Patient will be discharged on Oxycodone and home dosing of Naprosyn -Monitor pain, reassess to keep at pain level 4 or below. . Atelectasis 10/23/2013 10/24/2013 Overview: S/P right VATS upper lobectomy 10/23/13. Wearing 2 L/min oxygen, 95% pulse ox. CXR shows bilateral atelectasis. PLAN: -Bronchopulmonary hygiene, cough, deep breathe, acapella use, frequent ambulation. . Rt VATS Wedge, then RULobectomy 10/20/2013 10/14/2015 Overview: Patient is an active smoker of 75 pack years, presented with a 1.4 cm spiculated, cavitary lesion in the right upper lung. PET scan showed increased uptake in the lesion with an SUV 5.5 and no evidence of hilar, mediastinal or extrathoracic disease. On 10/22/13, Dr. Calvert performed right VATS, right upper lobectomy, and lymphadenectomy (R2, R4, 7). Plan:: -Pain management -Out of bed, frequent ambulation -cough/deep breathe, acapella -regular diet -respiratory therapy- Desat study for home oxygen . Pain in joint, lower leg 05/01/2013 014 Tear of meniscus of left knee 02/16/2013 Fatigue 12/01/2012 11/12/2013 Snoring 12/01/2012 11/12/2013 Hyperglycemia 05/28/2012 01/02/2017 Mastalgia 09/04/2011 11/12/2013 CHRONIC AIRWAY OBSTRUCTION NEC 0 10/14/2015 Unspecified asthma(493.90) 11/21 Osteoporosis, unspecified 2020 History of lung cancer 6 Overview: squamous cell documented as of this encounter (statuses as of 03/28/2022) [facility] History of Past illness Narrative* Problem Noted Date Resolved Date EKG abnormality 07/14/2021 07/17/2021 EKG abnormalities 03/22/2021 03/25/2021 Overview: EK03/20/[address]-T changes with some terminal T wave inversions V1 through V4 not present on EKG 01/12/2021 On apixaban therapy 03/21/2021 08/01/2021 Overview: For prior pulmonary embolus Shortness of breath 12/15/2020 03/21/2021 Nausea and vomiting 12/15/2020 03/21/2021 Generalized weakness 12/15/2020 03/21/2021 Abnormal urinalysis 12/15/2020 03/21/2021 Acute deep vein thrombosis ( DVT) of distal vein of left lower extremity 10/26/2020 03/21/2021 Change in bowel habit 07/08/2019 03/21/2021 Prediabetes 05/13/2019 03/21/2021 Type 2 diabetes mellitus without retinopathy 01/201903/21/2021 DM (diabetes mellitus) 01/02/2017 Last Assessment & Plan: Assessment: on oral agent, last A1c 6.1 02/2019 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 No signs or symptoms of DVT/PE. The patient is at high risk for VTE. Plan: - Continue Lovenox 40mg daily SC. - SCD/KAIA - Encourage continued ambulation . DISPOSITION AND FOLLOW-UP 10/23/20132013 Overview: Patient is and lives in [place], [place]. At this time, we anticipate that the patient will be discharged home once clinically stable. Plan: - Discuss needs with patient. - Collaborate with Case management to facilitate DC process - Will likely need home oxygen. Desat study ordered. . Tobacco abuse 10/23/2013 11/12/2013 Overview: Active smoker of 75 pack years. Benefits of smoking cessation discussed and patient states she is actively trying to quit (down to less than a pack per day from 1.5 pack per day). Continued to reinforce need to stop smoking. Is being discharged on home oxygen. Plan -Continue to encourage smoking cessation. -Start nicotine patch . Acute postoperative pain 10/23/2013 014 Overview: Patient states adequate pain control with Vicodin, oxycodone, and Motrin added in an attempt to transition to all oral pain regimen. Plan -Patient will be discharged on Oxycodone and home dosing of Naprosyn -Monitor pain, reassess to keep at pain level 4 or below. . Atelectasis 10/23/2013 10/24/2013 Overview: S/P right VATS upper lobectomy 10/23/13. Wearing 2 L/min oxygen, 95% pulse ox. CXR shows bilateral atelectasis. PLAN: -Bronchopulmonary hygiene, cough, deep breathe, acapella use, frequent ambulation. . Rt VATS Wedge, then RULobectomy 10/20/2013 10/14/2015 Overview: Patient is an active smoker of 75 pack years, presented with a 1.4 cm spiculated, cavitary lesion in the right upper lung. PET scan showed increased uptake in the lesion with an SUV 5.5 and no evidence of hilar, mediastinal or extrathoracic disease. On 10/22/13, Dr. Calvert performed right VATS, right upper lobectomy, and lymphadenectomy (R2, R4, 7). Plan:: -Pain management -Out of bed, frequent ambulation -cough/deep breathe, acapella -regular diet -respiratory therapy- Desat study for home oxygen . Pain in joint, lower leg 05/01/2013 014 Tear of meniscus of left knee 02/16/2013 Fatigue 12/01/2012 11/12/2013 Snoring 12/01/2012 11/12/2013 Hyperglycemia 05/28/2012 01/02/2017 Mastalgia 09/04/2011 11/12/2013 CHRONIC AIRWAY OBSTRUCTION NEC 0 10/14/2015 Unspecified asthma(493.90) 11/21 Osteoporosis, unspecified 2020 History of lung cancer 6 Overview: squamous cell documented as of this encounter (statuses as of 04/06/2022) [facility] History of Past illness Narrative* Problem Noted Date Resolved Date EKG abnormality 07/14/2021 07/17/2021 EKG abnormalities 03/22/2021 03/25/2021 Overview: EK03/20/[address]-T changes with some terminal T wave inversions V1 through V4 not present on EKG 01/12/2021 On apixaban therapy 03/21/2021 08/01/2021 Overview: For prior pulmonary embolus Shortness of breath 12/15/2020 03/21/2021 Nausea and vomiting 12/15/2020 03/21/2021 Generalized weakness 12/15/2020 03/21/2021 Abnormal urinalysis 12/15/2020 03/21/2021 Acute deep vein thrombosis ( DVT) of distal vein of left lower extremity 10/26/2020 03/21/2021 Change in bowel habit 07/08/2019 03/21/2021 Prediabetes 05/13/2019 03/21/2021 Type 2 diabetes mellitus without retinopathy 01/201903/21/2021 DM (diabetes mellitus) 01/02/2017 Last Assessment & Plan: Assessment: on oral agent, last A1c 6.1 02/2019 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 No signs or symptoms of DVT/PE. The patient is at high risk for VTE. Plan: - Continue Lovenox 40mg daily SC. - SCD/KAIA - Encourage continued ambulation . DISPOSITION AND FOLLOW-UP 10/23/20132013 Overview: Patient is and lives in [place], [place]. At this time, we anticipate that the patient will be discharged home once clinically stable. Plan: - Discuss needs with patient. - Collaborate with Case management to facilitate DC process - Will likely need home oxygen. Desat study ordered. . Tobacco abuse 10/23/2013 11/12/2013 Overview: Active smoker of 75 pack years. Benefits of smoking cessation discussed and patient states she is actively trying to quit (down to less than a pack per day from 1.5 pack per day). Continued to reinforce need to stop smoking. Is being discharged on home oxygen. Plan -Continue to encourage smoking cessation. -Start nicotine patch . Acute postoperative pain 10/23/2013 014 Overview: Patient states adequate pain control with Vicodin, oxycodone, and Motrin added in an attempt to transition to all oral pain regimen. Plan -Patient will be discharged on Oxycodone and home dosing of Naprosyn -Monitor pain, reassess to keep at pain level 4 or below. . Atelectasis 10/23/2013 10/24/2013 Overview: S/P right VATS upper lobectomy 10/23/13. Wearing 2 L/min oxygen, 95% pulse ox. CXR shows bilateral atelectasis. PLAN: -Bronchopulmonary hygiene, cough, deep breathe, acapella use, frequent ambulation. . Rt VATS Wedge, then RULobectomy 10/20/2013 10/14/2015 Overview: Patient is an active smoker of 75 pack years, presented with a 1.4 cm spiculated, cavitary lesion in the right upper lung. PET scan showed increased uptake in the lesion with an SUV 5.5 and no evidence of hilar, mediastinal or extrathoracic disease. On 10/22/13, Dr. Calvert performed right VATS, right upper lobectomy, and lymphadenectomy (R2, R4, 7). Plan:: -Pain management -Out of bed, frequent ambulation -cough/deep breathe, acapella -regular diet -respiratory therapy- Desat study for home oxygen . Pain in joint, lower leg 05/01/2013 014 Tear of meniscus of left knee 02/16/2013 Fatigue 12/01/2012 11/12/2013 Snoring 12/01/2012 11/12/2013 Hyperglycemia 05/28/2012 01/02/2017 Mastalgia 09/04/2011 11/12/2013 CHRONIC AIRWAY OBSTRUCTION NEC 0 10/14/2015 Unspecified asthma(493.90) 11/21 Osteoporosis, unspecified 2020 History of lung cancer 6 Overview: squamous cell documented as of this encounter (statuses as of 04/12/2022) [facility]11-19-[facility]21 History of Past illness Narrative* Problem Noted Date Resolved Date EKG abnormality 07/14/2021 07/17/2021 EKG abnormalities 03/22/2021 03/25/2021 Overview: EK03/20/[address]-T changes with some terminal T wave inversions V1 through V4 not present on EKG 01/12/2021 On apixaban therapy 03/21/2021 08/01/2021 Overview: For prior pulmonary embolus Shortness of breath 12/15/2020 03/21/2021 Nausea and vomiting 12/15/2020 03/21/2021 Generalized weakness 12/15/2020 03/21/2021 Abnormal urinalysis 12/15/2020 03/21/2021 Acute deep vein thrombosis ( DVT) of distal vein of left lower extremity 10/26/2020 03/21/2021 Change in bowel habit 07/08/2019 03/21/2021 Prediabetes 05/13/2019 03/21/2021 Type 2 diabetes mellitus without retinopathy 01/201903/21/2021 DM (diabetes mellitus) 01/02/2017 Last Assessment & Plan: Assessment: on oral agent, last A1c 6.1 02/2019 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 No signs or symptoms of DVT/PE. The patient is at high risk for VTE. Plan: - Continue Lovenox 40mg daily SC. - SCD/KAIA - Encourage continued ambulation . DISPOSITION AND FOLLOW-UP 10/23/20132013 Overview: Patient is and lives in [place], [place]. At this time, we anticipate that the patient will be discharged home once clinically stable. Plan: - Discuss needs with patient. - Collaborate with Case management to facilitate DC process - Will likely need home oxygen. Desat study ordered. . Tobacco abuse 10/23/2013 11/12/2013 Overview: Active smoker of 75 pack years. Benefits of smoking cessation discussed and patient states she is actively trying to quit (down to less than a pack per day from 1.5 pack per day). Continued to reinforce need to stop smoking. Is being discharged on home oxygen. Plan -Continue to encourage smoking cessation. -Start nicotine patch . Acute postoperative pain 10/23/2013 014 Overview: Patient states adequate pain control with Vicodin, oxycodone, and Motrin added in an attempt to transition to all oral pain regimen. Plan -Patient will be discharged on Oxycodone and home dosing of Naprosyn -Monitor pain, reassess to keep at pain level 4 or below. . Atelectasis 10/23/2013 10/24/2013 Overview: S/P right VATS upper lobectomy 10/23/13. Wearing 2 L/min oxygen, 95% pulse ox. CXR shows bilateral atelectasis. PLAN: -Bronchopulmonary hygiene, cough, deep breathe, acapella use, frequent ambulation. . Rt VATS Wedge, then RULobectomy 10/20/2013 10/14/2015 Overview: Patient is an active smoker of 75 pack years, presented with a 1.4 cm spiculated, cavitary lesion in the right upper lung. PET scan showed increased uptake in the lesion with an SUV 5.5 and no evidence of hilar, mediastinal or extrathoracic disease. On 10/22/13, Dr. Calvert performed right VATS, right upper lobectomy, and lymphadenectomy (R2, R4, 7). Plan:: -Pain management -Out of bed, frequent ambulation -cough/deep breathe, acapella -regular diet -respiratory therapy- Desat study for home oxygen . Pain in joint, lower leg 05/01/2013 014 Tear of meniscus of left knee 02/16/2013 Fatigue 12/01/2012 11/12/2013 Snoring 12/01/2012 11/12/2013 Hyperglycemia 05/28/2012 01/02/2017 Mastalgia 09/04/2011 11/12/2013 CHRONIC AIRWAY OBSTRUCTION NEC 0 10/14/2015 Unspecified asthma(493.90) 11/21 Osteoporosis, unspecified 2020 History of lung cancer 6 Overview: squamous cell documented as of this encounter (statuses as of 04/25/2022) [facility]11-19-[facility]21 History of Past illness Narrative* Problem Noted Date Resolved Date EKG abnormality 07/14/2021 07/17/2021 EKG abnormalities 03/22/2021 03/25/2021 Overview: EK03/20/[address]-T changes with some terminal T wave inversions V1 through V4 not present on EKG 01/12/2021 On apixaban therapy 03/21/2021 08/01/2021 Overview: For prior pulmonary embolus Shortness of breath 12/15/2020 03/21/2021 Nausea and vomiting 12/15/2020 03/21/2021 Generalized weakness 12/15/2020 03/21/2021 Abnormal urinalysis 12/15/2020 03/21/2021 Acute deep vein thrombosis ( DVT) of distal vein of left lower extremity 10/26/2020 03/21/2021 Change in bowel habit 07/08/2019 03/21/2021 Prediabetes 05/13/2019 03/21/2021 Type 2 diabetes mellitus without retinopathy 01/201903/21/2021 DM (diabetes mellitus) 01/02/2017 Last Assessment & Plan: Assessment: on oral agent, last A1c 6.1 02/2019 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 No signs or symptoms of DVT/PE. The patient is at high risk for VTE. Plan: - Continue Lovenox 40mg daily SC. - SCD/KAIA - Encourage continued ambulation . DISPOSITION AND FOLLOW-UP 10/23/20132013 Overview: Patient is and lives in [place], [place]. At this time, we anticipate that the patient will be discharged home once clinically stable. Plan: - Discuss needs with patient. - Collaborate with Case management to facilitate DC process - Will likely need home oxygen. Desat study ordered. . Tobacco abuse 10/23/2013 11/12/2013 Overview: Active smoker of 75 pack years. Benefits of smoking cessation discussed and patient states she is actively trying to quit (down to less than a pack per day from 1.5 pack per day). Continued to reinforce need to stop smoking. Is being discharged on home oxygen. Plan -Continue to encourage smoking cessation. -Start nicotine patch . Acute postoperative pain 10/23/2013 014 Overview: Patient states adequate pain control with Vicodin, oxycodone, and Motrin added in an attempt to transition to all oral pain regimen. Plan -Patient will be discharged on Oxycodone and home dosing of Naprosyn -Monitor pain, reassess to keep at pain level 4 or below. . Atelectasis 10/23/2013 10/24/2013 Overview: S/P right VATS upper lobectomy 10/23/13. Wearing 2 L/min oxygen, 95% pulse ox. CXR shows bilateral atelectasis. PLAN: -Bronchopulmonary hygiene, cough, deep breathe, acapella use, frequent ambulation. . Rt VATS Wedge, then RULobectomy 10/20/2013 10/14/2015 Overview: Patient is an active smoker of 75 pack years, presented with a 1.4 cm spiculated, cavitary lesion in the right upper lung. PET scan showed increased uptake in the lesion with an SUV 5.5 and no evidence of hilar, mediastinal or extrathoracic disease. On 10/22/13, Dr. Calvert performed right VATS, right upper lobectomy, and lymphadenectomy (R2, R4, 7). Plan:: -Pain management -Out of bed, frequent ambulation -cough/deep breathe, acapella -regular diet -respiratory therapy- Desat study for home oxygen . Pain in joint, lower leg 05/01/2013 014 Tear of meniscus of left knee 02/16/2013 Fatigue 12/01/2012 11/12/2013 Snoring 12/01/2012 11/12/2013 Hyperglycemia 05/28/2012 01/02/2017 Mastalgia 09/04/2011 11/12/2013 CHRONIC AIRWAY OBSTRUCTION NEC 0 10/14/2015 Unspecified asthma(493.90) 11/21 Osteoporosis, unspecified 2020 History of lung cancer 6 Overview: squamous cell documented as of this encounter (statuses as of 04/26/2022) [facility]11-19-[facility]21 History of Past illness Narrative* Problem Noted Date Resolved Date EKG abnormality 07/14/2021 07/17/2021 EKG abnormalities 03/22/2021 03/25/2021 Overview: EK03/20/[address]-T changes with some terminal T wave inversions V1 through V4 not present on EKG 01/12/2021 On apixaban therapy 03/21/2021 08/01/2021 Overview: For prior pulmonary embolus Shortness of breath 12/15/2020 03/21/2021 Nausea and vomiting 12/15/2020 03/21/2021 Generalized weakness 12/15/2020 03/21/2021 Abnormal urinalysis 12/15/2020 03/21/2021 Acute deep vein thrombosis ( DVT) of distal vein of left lower extremity 10/26/2020 03/21/2021 Change in bowel habit 07/08/2019 03/21/2021 Prediabetes 05/13/2019 03/21/2021 Type 2 diabetes mellitus without retinopathy 01/201903/21/2021 DM (diabetes mellitus) 01/02/2017 Last Assessment & Plan: Assessment: on oral agent, last A1c 6.1 02/2019 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 No signs or symptoms of DVT/PE. The patient is at high risk for VTE. Plan: - Continue Lovenox 40mg daily SC. - SCD/KAIA - Encourage continued ambulation . DISPOSITION AND FOLLOW-UP 10/23/20132013 Overview: Patient is and lives in [place], [place]. At this time, we anticipate that the patient will be discharged home once clinically stable. Plan: - Discuss needs with patient. - Collaborate with Case management to facilitate DC process - Will likely need home oxygen. Desat study ordered. . Tobacco abuse 10/23/2013 11/12/2013 Overview: Active smoker of 75 pack years. Benefits of smoking cessation discussed and patient states she is actively trying to quit (down to less than a pack per day from 1.5 pack per day). Continued to reinforce need to stop smoking. Is being discharged on home oxygen. Plan -Continue to encourage smoking cessation. -Start nicotine patch . Acute postoperative pain 10/23/2013 014 Overview: Patient states adequate pain control with Vicodin, oxycodone, and Motrin added in an attempt to transition to all oral pain regimen. Plan -Patient will be discharged on Oxycodone and home dosing of Naprosyn -Monitor pain, reassess to keep at pain level 4 or below. . Atelectasis 10/23/2013 10/24/2013 Overview: S/P right VATS upper lobectomy 10/23/13. Wearing 2 L/min oxygen, 95% pulse ox. CXR shows bilateral atelectasis. PLAN: -Bronchopulmonary hygiene, cough, deep breathe, acapella use, frequent ambulation. . Rt VATS Wedge, then RULobectomy 10/20/2013 10/14/2015 Overview: Patient is an active smoker of 75 pack years, presented with a 1.4 cm spiculated, cavitary lesion in the right upper lung. PET scan showed increased uptake in the lesion with an SUV 5.5 and no evidence of hilar, mediastinal or extrathoracic disease. On 10/22/13, Dr. Calvert performed right VATS, right upper lobectomy, and lymphadenectomy (R2, R4, 7). Plan:: -Pain management -Out of bed, frequent ambulation -cough/deep breathe, acapella -regular diet -respiratory therapy- Desat study for home oxygen . Pain in joint, lower leg 05/01/2013 014 Tear of meniscus of left knee 02/16/2013 Fatigue 12/01/2012 11/12/2013 Snoring 12/01/2012 11/12/2013 Hyperglycemia 05/28/2012 01/02/2017 Mastalgia 09/04/2011 11/12/2013 CHRONIC AIRWAY OBSTRUCTION NEC 0 10/14/2015 Unspecified asthma(493.90) 11/21 Osteoporosis, unspecified 2020 History of lung cancer 6 Overview: squamous cell documented as of this encounter (statuses as of 05/09/2022) [facility]11-[facility] History of Past illness Narrative* Problem Noted Date Resolved Date EKG abnormality 07/14/2021 07/17/2021 EKG abnormalities 03/22/2021 03/25/2021 Overview: EK03/20/[address]-T changes with some terminal T wave inversions V1 through V4 not present on EKG 01/12/2021 On apixaban therapy 03/21/2021 08/01/2021 Overview: For prior pulmonary embolus Shortness of breath 12/15/2020 03/21/2021 Nausea and vomiting 12/15/2020 03/21/2021 Generalized weakness 12/15/2020 03/21/2021 Abnormal urinalysis 12/15/2020 03/21/2021 Acute deep vein thrombosis ( DVT) of distal vein of left lower extremity 10/26/2020 03/21/2021 Change in bowel habit 07/08/2019 03/21/2021 Prediabetes 05/13/2019 03/21/2021 Type 2 diabetes mellitus without retinopathy 01/201903/21/2021 DM (diabetes mellitus) 01/02/2017 Last Assessment & Plan: Assessment: on oral agent, last A1c 6.1 02/2019 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 No signs or symptoms of DVT/PE. The patient is at high risk for VTE. Plan: - Continue Lovenox 40mg daily SC. - SCD/KAIA - Encourage continued ambulation . DISPOSITION AND FOLLOW-UP 10/23/20132013 Overview: Patient is and lives in [place], [place]. At this time, we anticipate that the patient will be discharged home once clinically stable. Plan: - Discuss needs with patient. - Collaborate with Case management to facilitate DC process - Will likely need home oxygen. Desat study ordered. . Tobacco abuse 10/23/2013 11/12/2013 Overview: Active smoker of 75 pack years. Benefits of smoking cessation discussed and patient states she is actively trying to quit (down to less than a pack per day from 1.5 pack per day). Continued to reinforce need to stop smoking. Is being discharged on home oxygen. Plan -Continue to encourage smoking cessation. -Start nicotine patch . Acute postoperative pain 10/23/2013 014 Overview: Patient states adequate pain control with Vicodin, oxycodone, and Motrin added in an attempt to transition to all oral pain regimen. Plan -Patient will be discharged on Oxycodone and home dosing of Naprosyn -Monitor pain, reassess to keep at pain level 4 or below. . Atelectasis 10/23/2013 10/24/2013 Overview: S/P right VATS upper lobectomy 10/23/13. Wearing 2 L/min oxygen, 95% pulse ox. CXR shows bilateral atelectasis. PLAN: -Bronchopulmonary hygiene, cough, deep breathe, acapella use, frequent ambulation. . Rt VATS Wedge, then RULobectomy 10/20/2013 10/14/2015 Overview: Patient is an active smoker of 75 pack years, presented with a 1.4 cm spiculated, cavitary lesion in the right upper lung. PET scan showed increased uptake in the lesion with an SUV 5.5 and no evidence of hilar, mediastinal or extrathoracic disease. On 10/22/13, Dr. Calvert performed right VATS, right upper lobectomy, and lymphadenectomy (R2, R4, 7). Plan:: -Pain management -Out of bed, frequent ambulation -cough/deep breathe, acapella -regular diet -respiratory therapy- Desat study for home oxygen . Pain in joint, lower leg 05/01/2013 014 Tear of meniscus of left knee 02/16/2013 Fatigue 12/01/2012 11/12/2013 Snoring 12/01/2012 11/12/2013 Hyperglycemia 05/28/2012 01/02/2017 Mastalgia 09/04/2011 11/12/2013 CHRONIC AIRWAY OBSTRUCTION NEC 0 10/14/2015 Unspecified asthma(493.90) 11/21 Osteoporosis, unspecified 2020 History of lung cancer 6 Overview: squamous cell documented as of this encounter (statuses as of 05/24/2022) [facility] History of Past illness Narrative* Problem Noted Date Resolved Date EKG abnormality 07/14/2021 07/17/2021 EKG abnormalities 03/22/2021 03/25/2021 Overview: EK03/20/[address]-T changes with some terminal T wave inversions V1 through V4 not present on EKG 01/12/2021 On apixaban therapy 03/21/2021 08/01/2021 Overview: For prior pulmonary embolus Shortness of breath 12/15/2020 03/21/2021 Nausea and vomiting 12/15/2020 03/21/2021 Generalized weakness 12/15/2020 03/21/2021 Abnormal urinalysis 12/15/2020 03/21/2021 Acute deep vein thrombosis ( DVT) of distal vein of left lower extremity 10/26/2020 03/21/2021 Change in bowel habit 07/08/2019 03/21/2021 Prediabetes 05/13/2019 03/21/2021 Type 2 diabetes mellitus without retinopathy 01/201903/21/2021 DM (diabetes mellitus) 01/02/2017 Last Assessment & Plan: Assessment: on oral agent, last A1c 6.1 02/2019 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 No signs or symptoms of DVT/PE. The patient is at high risk for VTE. Plan: - Continue Lovenox 40mg daily SC. - SCD/KAIA - Encourage continued ambulation . DISPOSITION AND FOLLOW-UP 10/23/20132013 Overview: Patient is and lives in [place], [place]. At this time, we anticipate that the patient will be discharged home once clinically stable. Plan: - Discuss needs with patient. - Collaborate with Case management to facilitate DC process - Will likely need home oxygen. Desat study ordered. . Tobacco abuse 10/23/2013 11/12/2013 Overview: Active smoker of 75 pack years. Benefits of smoking cessation discussed and patient states she is actively trying to quit (down to less than a pack per day from 1.5 pack per day). Continued to reinforce need to stop smoking. Is being discharged on home oxygen. Plan -Continue to encourage smoking cessation. -Start nicotine patch . Acute postoperative pain 10/23/2013 014 Overview: Patient states adequate pain control with Vicodin, oxycodone, and Motrin added in an attempt to transition to all oral pain regimen. Plan -Patient will be discharged on Oxycodone and home dosing of Naprosyn -Monitor pain, reassess to keep at pain level 4 or below. . Atelectasis 10/23/2013 10/24/2013 Overview: S/P right VATS upper lobectomy 10/23/13. Wearing 2 L/min oxygen, 95% pulse ox. CXR shows bilateral atelectasis. PLAN: -Bronchopulmonary hygiene, cough, deep breathe, acapella use, frequent ambulation. . Rt VATS Wedge, then RULobectomy 10/20/2013 10/14/2015 Overview: Patient is an active smoker of 75 pack years, presented with a 1.4 cm spiculated, cavitary lesion in the right upper lung. PET scan showed increased uptake in the lesion with an SUV 5.5 and no evidence of hilar, mediastinal or extrathoracic disease. On 10/22/13, Dr. Calvert performed right VATS, right upper lobectomy, and lymphadenectomy (R2, R4, 7). Plan:: -Pain management -Out of bed, frequent ambulation -cough/deep breathe, acapella -regular diet -respiratory therapy- Desat study for home oxygen . Pain in joint, lower leg 05/01/2013 014 Tear of meniscus of left knee 02/16/2013 Fatigue 12/01/2012 11/12/2013 Snoring 12/01/2012 11/12/2013 Hyperglycemia 05/28/2012 01/02/2017 Mastalgia 09/04/2011 11/12/2013 CHRONIC AIRWAY OBSTRUCTION NEC 0 10/14/2015 Unspecified asthma(493.90) 11/21 Osteoporosis, unspecified 2020 History of lung cancer 6 Overview: squamous cell documented as of this encounter (statuses as of 05/25/2022) [facility] History of Past illness Narrative* Problem Noted Date Resolved Date EKG abnormality 07/14/2021 07/17/2021 EKG abnormalities 03/22/2021 03/25/2021 Overview: EK03/20/[address]-T changes with some terminal T wave inversions V1 through V4 not present on EKG 01/12/2021 On apixaban therapy 03/21/2021 08/01/2021 Overview: For prior pulmonary embolus Shortness of breath 12/15/2020 03/21/2021 Nausea and vomiting 12/15/2020 03/21/2021 Generalized weakness 12/15/2020 03/21/2021 Abnormal urinalysis 12/15/2020 03/21/2021 Acute deep vein thrombosis ( DVT) of distal vein of left lower extremity 10/26/2020 03/21/2021 Change in bowel habit 07/08/2019 03/21/2021 Prediabetes 05/13/2019 03/21/2021 Type 2 diabetes mellitus without retinopathy 01/201903/21/2021 DM (diabetes mellitus) 01/02/2017 Last Assessment & Plan: Assessment: on oral agent, last A1c 6.1 02/2019 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 No signs or symptoms of DVT/PE. The patient is at high risk for VTE. Plan: - Continue Lovenox 40mg daily SC. - SCD/KAIA - Encourage continued ambulation . DISPOSITION AND FOLLOW-UP 10/23/20132013 Overview: Patient is and lives in [place], [place]. At this time, we anticipate that the patient will be discharged home once clinically stable. Plan: - Discuss needs with patient. - Collaborate with Case management to facilitate DC process - Will likely need home oxygen. Desat study ordered. . Tobacco abuse 10/23/2013 11/12/2013 Overview: Active smoker of 75 pack years. Benefits of smoking cessation discussed and patient states she is actively trying to quit (down to less than a pack per day from 1.5 pack per day). Continued to reinforce need to stop smoking. Is being discharged on home oxygen. Plan -Continue to encourage smoking cessation. -Start nicotine patch . Acute postoperative pain 10/23/2013 014 Overview: Patient states adequate pain control with Vicodin, oxycodone, and Motrin added in an attempt to transition to all oral pain regimen. Plan -Patient will be discharged on Oxycodone and home dosing of Naprosyn -Monitor pain, reassess to keep at pain level 4 or below. . Atelectasis 10/23/2013 10/24/2013 Overview: S/P right VATS upper lobectomy 10/23/13. Wearing 2 L/min oxygen, 95% pulse ox. CXR shows bilateral atelectasis. PLAN: -Bronchopulmonary hygiene, cough, deep breathe, acapella use, frequent ambulation. . Rt VATS Wedge, then RULobectomy 10/20/2013 10/14/2015 Overview: Patient is an active smoker of 75 pack years, presented with a 1.4 cm spiculated, cavitary lesion in the right upper lung. PET scan showed increased uptake in the lesion with an SUV 5.5 and no evidence of hilar, mediastinal or extrathoracic disease. On 10/22/13, Dr. Calvert performed right VATS, right upper lobectomy, and lymphadenectomy (R2, R4, 7). Plan:: -Pain management -Out of bed, frequent ambulation -cough/deep breathe, acapella -regular diet -respiratory therapy- Desat study for home oxygen . Pain in joint, lower leg 05/01/2013 014 Tear of meniscus of left knee 02/16/2013 Fatigue 12/01/2012 11/12/2013 Snoring 12/01/2012 11/12/2013 Hyperglycemia 05/28/2012 01/02/2017 Mastalgia 09/04/2011 11/12/2013 CHRONIC AIRWAY OBSTRUCTION NEC 0 10/14/2015 Unspecified asthma(493.90) 11/21 Osteoporosis, unspecified 2020 History of lung cancer 6 Overview: squamous cell documented as of this encounter (statuses as of 06/07/2022) [facility]11-19-[facility]21 History of Past illness Narrative* Problem Noted Date Resolved Date EKG abnormality 07/14/2021 07/17/2021 EKG abnormalities 03/22/2021 03/25/2021 Overview: EK03/20/[address]-T changes with some terminal T wave inversions V1 through V4 not present on EKG 01/12/2021 On apixaban therapy 03/21/2021 08/01/2021 Overview: For prior pulmonary embolus Shortness of breath 12/15/2020 03/21/2021 Nausea and vomiting 12/15/2020 03/21/2021 Generalized weakness 12/15/2020 03/21/2021 Abnormal urinalysis 12/15/2020 03/21/2021 Acute deep vein thrombosis ( DVT) of distal vein of left lower extremity 10/26/2020 03/21/2021 Change in bowel habit 07/08/2019 03/21/2021 Prediabetes 05/13/2019 03/21/2021 Type 2 diabetes mellitus without retinopathy 01/201903/21/2021 DM (diabetes mellitus) 01/02/2017 Last Assessment & Plan: Assessment: on oral agent, last A1c 6.1 02/2019 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 No signs or symptoms of DVT/PE. The patient is at high risk for VTE. Plan: - Continue Lovenox 40mg daily SC. - SCD/KAIA - Encourage continued ambulation . DISPOSITION AND FOLLOW-UP 10/23/20132013 Overview: Patient is and lives in [place], [place]. At this time, we anticipate that the patient will be discharged home once clinically stable. Plan: - Discuss needs with patient. - Collaborate with Case management to facilitate DC process - Will likely need home oxygen. Desat study ordered. . Tobacco abuse 10/23/2013 11/12/2013 Overview: Active smoker of 75 pack years. Benefits of smoking cessation discussed and patient states she is actively trying to quit (down to less than a pack per day from 1.5 pack per day). Continued to reinforce need to stop smoking. Is being discharged on home oxygen. Plan -Continue to encourage smoking cessation. -Start nicotine patch . Acute postoperative pain 10/23/2013 014 Overview: Patient states adequate pain control with Vicodin, oxycodone, and Motrin added in an attempt to transition to all oral pain regimen. Plan -Patient will be discharged on Oxycodone and home dosing of Naprosyn -Monitor pain, reassess to keep at pain level 4 or below. . Atelectasis 10/23/2013 10/24/2013 Overview: S/P right VATS upper lobectomy 10/23/13. Wearing 2 L/min oxygen, 95% pulse ox. CXR shows bilateral atelectasis. PLAN: -Bronchopulmonary hygiene, cough, deep breathe, acapella use, frequent ambulation. . Rt VATS Wedge, then RULobectomy 10/20/2013 10/14/2015 Overview: Patient is an active smoker of 75 pack years, presented with a 1.4 cm spiculated, cavitary lesion in the right upper lung. PET scan showed increased uptake in the lesion with an SUV 5.5 and no evidence of hilar, mediastinal or extrathoracic disease. On 10/22/13, Dr. Calvert performed right VATS, right upper lobectomy, and lymphadenectomy (R2, R4, 7). Plan:: -Pain management -Out of bed, frequent ambulation -cough/deep breathe, acapella -regular diet -respiratory therapy- Desat study for home oxygen . Pain in joint, lower leg 05/01/2013 014 Tear of meniscus of left knee 02/16/2013 Fatigue 12/01/2012 11/12/2013 Snoring 12/01/2012 11/12/2013 Hyperglycemia 05/28/2012 01/02/2017 Mastalgia 09/04/2011 11/12/2013 CHRONIC AIRWAY OBSTRUCTION NEC 0 10/14/2015 Unspecified asthma(493.90) 11/21 Osteoporosis, unspecified 2020 History of lung cancer 6 Overview: squamous cell documented as of this encounter (statuses as of 06/18/2022) [facility]11-19-[facility]21 History of Past illness Narrative* Problem Noted Date Resolved Date EKG abnormality 07/14/2021 07/17/2021 EKG abnormalities 03/22/2021 03/25/2021 Overview: EK03/20/[address]-T changes with some terminal T wave inversions V1 through V4 not present on EKG 01/12/2021 On apixaban therapy 03/21/2021 08/01/2021 Overview: For prior pulmonary embolus Shortness of breath 12/15/2020 03/21/2021 Nausea and vomiting 12/15/2020 03/21/2021 Generalized weakness 12/15/2020 03/21/2021 Abnormal urinalysis 12/15/2020 03/21/2021 Acute deep vein thrombosis ( DVT) of distal vein of left lower extremity 10/26/2020 03/21/2021 Change in bowel habit 07/08/2019 03/21/2021 Prediabetes 05/13/2019 03/21/2021 Type 2 diabetes mellitus without retinopathy 01/201903/21/2021 DM (diabetes mellitus) 01/02/2017 Last Assessment & Plan: Assessment: on oral agent, last A1c 6.1 02/2019 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 No signs or symptoms of DVT/PE. The patient is at high risk for VTE. Plan: - Continue Lovenox 40mg daily SC. - SCD/KAIA - Encourage continued ambulation . DISPOSITION AND FOLLOW-UP 10/23/20132013 Overview: Patient is and lives in [place], [place]. At this time, we anticipate that the patient will be discharged home once clinically stable. Plan: - Discuss needs with patient. - Collaborate with Case management to facilitate DC process - Will likely need home oxygen. Desat study ordered. . Tobacco abuse 10/23/2013 11/12/2013 Overview: Active smoker of 75 pack years. Benefits of smoking cessation discussed and patient states she is actively trying to quit (down to less than a pack per day from 1.5 pack per day). Continued to reinforce need to stop smoking. Is being discharged on home oxygen. Plan -Continue to encourage smoking cessation. -Start nicotine patch . Acute postoperative pain 10/23/2013 014 Overview: Patient states adequate pain control with Vicodin, oxycodone, and Motrin added in an attempt to transition to all oral pain regimen. Plan -Patient will be discharged on Oxycodone and home dosing of Naprosyn -Monitor pain, reassess to keep at pain level 4 or below. . Atelectasis 10/23/2013 10/24/2013 Overview: S/P right VATS upper lobectomy 10/23/13. Wearing 2 L/min oxygen, 95% pulse ox. CXR shows bilateral atelectasis. PLAN: -Bronchopulmonary hygiene, cough, deep breathe, acapella use, frequent ambulation. . Rt VATS Wedge, then RULobectomy 10/20/2013 10/14/2015 Overview: Patient is an active smoker of 75 pack years, presented with a 1.4 cm spiculated, cavitary lesion in the right upper lung. PET scan showed increased uptake in the lesion with an SUV 5.5 and no evidence of hilar, mediastinal or extrathoracic disease. On 10/22/13, Dr. Calvert performed right VATS, right upper lobectomy, and lymphadenectomy (R2, R4, 7). Plan:: -Pain management -Out of bed, frequent ambulation -cough/deep breathe, acapella -regular diet -respiratory therapy- Desat study for home oxygen . Pain in joint, lower leg 05/01/2013 014 Tear of meniscus of left knee 02/16/2013 Fatigue 12/01/2012 11/12/2013 Snoring 12/01/2012 11/12/2013 Hyperglycemia 05/28/2012 01/02/2017 Mastalgia 09/04/2011 11/12/2013 CHRONIC AIRWAY OBSTRUCTION NEC 0 10/14/2015 Unspecified asthma(493.90) 11/21 Osteoporosis, unspecified 2020 History of lung cancer 6 Overview: squamous cell documented as of this encounter (statuses as of 06/18/2022) [facility]11-19-[facility]21 History of Past illness Narrative* Problem Noted Date Resolved Date EKG abnormality 07/14/2021 07/17/2021 EKG abnormalities 03/22/2021 03/25/2021 Overview: EK03/20/[address]-T changes with some terminal T wave inversions V1 through V4 not present on EKG 01/12/2021 On apixaban therapy 03/21/2021 08/01/2021 Overview: For prior pulmonary embolus Shortness of breath 12/15/2020 03/21/2021 Nausea and vomiting 12/15/2020 03/21/2021 Generalized weakness 12/15/2020 03/21/2021 Abnormal urinalysis 12/15/2020 03/21/2021 Acute deep vein thrombosis ( DVT) of distal vein of left lower extremity 10/26/2020 03/21/2021 Change in bowel habit 07/08/2019 03/21/2021 Prediabetes 05/13/2019 03/21/2021 Type 2 diabetes mellitus without retinopathy 01/201903/21/2021 DM (diabetes mellitus) 01/02/2017 Last Assessment & Plan: Assessment: on oral agent, last A1c 6.1 02/2019 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 No signs or symptoms of DVT/PE. The patient is at high risk for VTE. Plan: - Continue Lovenox 40mg daily SC. - SCD/KAIA - Encourage continued ambulation . DISPOSITION AND FOLLOW-UP 10/23/20132013 Overview: Patient is and lives in [place], [place]. At this time, we anticipate that the patient will be discharged home once clinically stable. Plan: - Discuss needs with patient. - Collaborate with Case management to facilitate DC process - Will likely need home oxygen. Desat study ordered. . Tobacco abuse 10/23/2013 11/12/2013 Overview: Active smoker of 75 pack years. Benefits of smoking cessation discussed and patient states she is actively trying to quit (down to less than a pack per day from 1.5 pack per day). Continued to reinforce need to stop smoking. Is being discharged on home oxygen. Plan -Continue to encourage smoking cessation. -Start nicotine patch . Acute postoperative pain 10/23/2013 014 Overview: Patient states adequate pain control with Vicodin, oxycodone, and Motrin added in an attempt to transition to all oral pain regimen. Plan -Patient will be discharged on Oxycodone and home dosing of Naprosyn -Monitor pain, reassess to keep at pain level 4 or below. . Atelectasis 10/23/2013 10/24/2013 Overview: S/P right VATS upper lobectomy 10/23/13. Wearing 2 L/min oxygen, 95% pulse ox. CXR shows bilateral atelectasis. PLAN: -Bronchopulmonary hygiene, cough, deep breathe, acapella use, frequent ambulation. . Rt VATS Wedge, then RULobectomy 10/20/2013 10/14/2015 Overview: Patient is an active smoker of 75 pack years, presented with a 1.4 cm spiculated, cavitary lesion in the right upper lung. PET scan showed increased uptake in the lesion with an SUV 5.5 and no evidence of hilar, mediastinal or extrathoracic disease. On 10/22/13, Dr. Calvert performed right VATS, right upper lobectomy, and lymphadenectomy (R2, R4, 7). Plan:: -Pain management -Out of bed, frequent ambulation -cough/deep breathe, acapella -regular diet -respiratory therapy- Desat study for home oxygen . Pain in joint, lower leg 05/01/2013 014 Tear of meniscus of left knee 02/16/2013 Fatigue 12/01/2012 11/12/2013 Snoring 12/01/2012 11/12/2013 Hyperglycemia 05/28/2012 01/02/2017 Mastalgia 09/04/2011 11/12/2013 CHRONIC AIRWAY OBSTRUCTION NEC 0 10/14/2015 Unspecified asthma(493.90) 11/21 Osteoporosis, unspecified 2020 History of lung cancer 6 Overview: squamous cell documented as of this encounter (statuses as of 06/22/2022) [facility]11-[facility] History of Past illness Narrative* Problem Noted Date Resolved Date EKG abnormality 07/14/2021 07/17/2021 EKG abnormalities 03/22/2021 03/25/2021 Overview: EK03/20/[address]-T changes with some terminal T wave inversions V1 through V4 not present on EKG 01/12/2021 On apixaban therapy 03/21/2021 08/01/2021 Overview: For prior pulmonary embolus Shortness of breath 12/15/2020 03/21/2021 Nausea and vomiting 12/15/2020 03/21/2021 Generalized weakness 12/15/2020 03/21/2021 Abnormal urinalysis 12/15/2020 03/21/2021 Acute deep vein thrombosis ( DVT) of distal vein of left lower extremity 10/26/2020 03/21/2021 Change in bowel habit 07/08/2019 03/21/2021 Prediabetes 05/13/2019 03/21/2021 Type 2 diabetes mellitus without retinopathy 01/201903/21/2021 DM (diabetes mellitus) 01/02/2017 Last Assessment & Plan: Assessment: on oral agent, last A1c 6.1 02/2019 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 No signs or symptoms of DVT/PE. The patient is at high risk for VTE. Plan: - Continue Lovenox 40mg daily SC. - SCD/KAIA - Encourage continued ambulation . DISPOSITION AND FOLLOW-UP 10/23/20132013 Overview: Patient is and lives in [place], [place]. At this time, we anticipate that the patient will be discharged home once clinically stable. Plan: - Discuss needs with patient. - Collaborate with Case management to facilitate DC process - Will likely need home oxygen. Desat study ordered. . Tobacco abuse 10/23/2013 11/12/2013 Overview: Active smoker of 75 pack years. Benefits of smoking cessation discussed and patient states she is actively trying to quit (down to less than a pack per day from 1.5 pack per day). Continued to reinforce need to stop smoking. Is being discharged on home oxygen. Plan -Continue to encourage smoking cessation. -Start nicotine patch . Acute postoperative pain 10/23/2013 014 Overview: Patient states adequate pain control with Vicodin, oxycodone, and Motrin added in an attempt to transition to all oral pain regimen. Plan -Patient will be discharged on Oxycodone and home dosing of Naprosyn -Monitor pain, reassess to keep at pain level 4 or below. . Atelectasis 10/23/2013 10/24/2013 Overview: S/P right VATS upper lobectomy 10/23/13. Wearing 2 L/min oxygen, 95% pulse ox. CXR shows bilateral atelectasis. PLAN: -Bronchopulmonary hygiene, cough, deep breathe, acapella use, frequent ambulation. . Rt VATS Wedge, then RULobectomy 10/20/2013 10/14/2015 Overview: Patient is an active smoker of 75 pack years, presented with a 1.4 cm spiculated, cavitary lesion in the right upper lung. PET scan showed increased uptake in the lesion with an SUV 5.5 and no evidence of hilar, mediastinal or extrathoracic disease. On 10/22/13, Dr. Calvert performed right VATS, right upper lobectomy, and lymphadenectomy (R2, R4, 7). Plan:: -Pain management -Out of bed, frequent ambulation -cough/deep breathe, acapella -regular diet -respiratory therapy- Desat study for home oxygen . Pain in joint, lower leg 05/01/2013 014 Tear of meniscus of left knee 02/16/2013 Fatigue 12/01/2012 11/12/2013 Snoring 12/01/2012 11/12/2013 Hyperglycemia 05/28/2012 01/02/2017 Mastalgia 09/04/2011 11/12/2013 CHRONIC AIRWAY OBSTRUCTION NEC 0 10/14/2015 Unspecified asthma(493.90) 11/21 Osteoporosis, unspecified 2020 History of lung cancer 6 Overview: squamous cell documented as of this encounter (statuses as of 06/22/2022) [facility] History of Past illness Narrative* Problem Noted Date Resolved Date EKG abnormality 07/14/2021 07/17/2021 EKG abnormalities 03/22/2021 03/25/2021 Overview: EK03/20/[address]-T changes with some terminal T wave inversions V1 through V4 not present on EKG 01/12/2021 On apixaban therapy 03/21/2021 08/01/2021 Overview: For prior pulmonary embolus Shortness of breath 12/15/2020 03/21/2021 Nausea and vomiting 12/15/2020 03/21/2021 Generalized weakness 12/15/2020 03/21/2021 Abnormal urinalysis 12/15/2020 03/21/2021 Acute deep vein thrombosis ( DVT) of distal vein of left lower extremity 10/26/2020 03/21/2021 Change in bowel habit 07/08/2019 03/21/2021 Prediabetes 05/13/2019 03/21/2021 Type 2 diabetes mellitus without retinopathy 01/201903/21/2021 DM (diabetes mellitus) 01/02/2017 Last Assessment & Plan: Assessment: on oral agent, last A1c 6.1 02/2019 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 No signs or symptoms of DVT/PE. The patient is at high risk for VTE. Plan: - Continue Lovenox 40mg daily SC. - SCD/KAIA - Encourage continued ambulation . DISPOSITION AND FOLLOW-UP 10/23/20132013 Overview: Patient is and lives in [place], [place]. At this time, we anticipate that the patient will be discharged home once clinically stable. Plan: - Discuss needs with patient. - Collaborate with Case management to facilitate DC process - Will likely need home oxygen. Desat study ordered. . Tobacco abuse 10/23/2013 11/12/2013 Overview: Active smoker of 75 pack years. Benefits of smoking cessation discussed and patient states she is actively trying to quit (down to less than a pack per day from 1.5 pack per day). Continued to reinforce need to stop smoking. Is being discharged on home oxygen. Plan -Continue to encourage smoking cessation. -Start nicotine patch . Acute postoperative pain 10/23/2013 014 Overview: Patient states adequate pain control with Vicodin, oxycodone, and Motrin added in an attempt to transition to all oral pain regimen. Plan -Patient will be discharged on Oxycodone and home dosing of Naprosyn -Monitor pain, reassess to keep at pain level 4 or below. . Atelectasis 10/23/2013 10/24/2013 Overview: S/P right VATS upper lobectomy 10/23/13. Wearing 2 L/min oxygen, 95% pulse ox. CXR shows bilateral atelectasis. PLAN: -Bronchopulmonary hygiene, cough, deep breathe, acapella use, frequent ambulation. . Rt VATS Wedge, then RULobectomy 10/20/2013 10/14/2015 Overview: Patient is an active smoker of 75 pack years, presented with a 1.4 cm spiculated, cavitary lesion in the right upper lung. PET scan showed increased uptake in the lesion with an SUV 5.5 and no evidence of hilar, mediastinal or extrathoracic disease. On 10/22/13, Dr. Calvert performed right VATS, right upper lobectomy, and lymphadenectomy (R2, R4, 7). Plan:: -Pain management -Out of bed, frequent ambulation -cough/deep breathe, acapella -regular diet -respiratory therapy- Desat study for home oxygen . Pain in joint, lower leg 05/01/2013 014 Tear of meniscus of left knee 02/16/2013 Fatigue 12/01/2012 11/12/2013 Snoring 12/01/2012 11/12/2013 Hyperglycemia 05/28/2012 01/02/2017 Mastalgia 09/04/2011 11/12/2013 CHRONIC AIRWAY OBSTRUCTION NEC 0 10/14/2015 Unspecified asthma(493.90) 11/21 Osteoporosis, unspecified 2020 History of lung cancer 6 Overview: squamous cell documented as of this encounter (statuses as of 06/28/2022) [facility] History of Past illness Narrative* Problem Noted Date Resolved Date EKG abnormality 07/14/2021 07/17/2021 EKG abnormalities 03/22/2021 03/25/2021 Overview: EK03/20/[address]-T changes with some terminal T wave inversions V1 through V4 not present on EKG 01/12/2021 On apixaban therapy 03/21/2021 08/01/2021 Overview: For prior pulmonary embolus Shortness of breath 12/15/2020 03/21/2021 Nausea and vomiting 12/15/2020 03/21/2021 Generalized weakness 12/15/2020 03/21/2021 Abnormal urinalysis 12/15/2020 03/21/2021 Acute deep vein thrombosis ( DVT) of distal vein of left lower extremity 10/26/2020 03/21/2021 Change in bowel habit 07/08/2019 03/21/2021 Prediabetes 05/13/2019 03/21/2021 Type 2 diabetes mellitus without retinopathy 01/201903/21/2021 DM (diabetes mellitus) 01/02/2017 Last Assessment & Plan: Assessment: on oral agent, last A1c 6.1 02/2019 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 No signs or symptoms of DVT/PE. The patient is at high risk for VTE. Plan: - Continue Lovenox 40mg daily SC. - SCD/KAIA - Encourage continued ambulation . DISPOSITION AND FOLLOW-UP 10/23/20132013 Overview: Patient is and lives in [place], [place]. At this time, we anticipate that the patient will be discharged home once clinically stable. Plan: - Discuss needs with patient. - Collaborate with Case management to facilitate DC process - Will likely need home oxygen. Desat study ordered. . Tobacco abuse 10/23/2013 11/12/2013 Overview: Active smoker of 75 pack years. Benefits of smoking cessation discussed and patient states she is actively trying to quit (down to less than a pack per day from 1.5 pack per day). Continued to reinforce need to stop smoking. Is being discharged on home oxygen. Plan -Continue to encourage smoking cessation. -Start nicotine patch . Acute postoperative pain 10/23/2013 014 Overview: Patient states adequate pain control with Vicodin, oxycodone, and Motrin added in an attempt to transition to all oral pain regimen. Plan -Patient will be discharged on Oxycodone and home dosing of Naprosyn -Monitor pain, reassess to keep at pain level 4 or below. . Atelectasis 10/23/2013 10/24/2013 Overview: S/P right VATS upper lobectomy 10/23/13. Wearing 2 L/min oxygen, 95% pulse ox. CXR shows bilateral atelectasis. PLAN: -Bronchopulmonary hygiene, cough, deep breathe, acapella use, frequent ambulation. . Rt VATS Wedge, then RULobectomy 10/20/2013 10/14/2015 Overview: Patient is an active smoker of 75 pack years, presented with a 1.4 cm spiculated, cavitary lesion in the right upper lung. PET scan showed increased uptake in the lesion with an SUV 5.5 and no evidence of hilar, mediastinal or extrathoracic disease. On 10/22/13, Dr. Calvert performed right VATS, right upper lobectomy, and lymphadenectomy (R2, R4, 7). Plan:: -Pain management -Out of bed, frequent ambulation -cough/deep breathe, acapella -regular diet -respiratory therapy- Desat study for home oxygen . Pain in joint, lower leg 05/01/2013 014 Tear of meniscus of left knee 02/16/2013 Fatigue 12/01/2012 11/12/2013 Snoring 12/01/2012 11/12/2013 Hyperglycemia 05/28/2012 01/02/2017 Mastalgia 09/04/2011 11/12/2013 CHRONIC AIRWAY OBSTRUCTION NEC 0 10/14/2015 Unspecified asthma(493.90) 11/21 Osteoporosis, unspecified 2020 History of lung cancer 6 Overview: squamous cell documented as of this encounter (statuses as of 06/29/2022) [facility]07-31-2021 NoteHNO ID: [id number] Author: Mckay Frederick MD Service: Hospital Medicine Author Type: Physician Type: Progress Notes Filed: 03/25/2021 1:56 PM Note Text: DEPARTMENT OF HOSPITAL MEDICINE PROGRESS NOTE SERVICE DATE: 03/25/2021 SERVICE TIME: 1:42 PM Hospital Medicine/Primary Attending: Mckay Frederick MD NIGHT AND WEEKEND COVERAGE: RAMSEY COVERAGE: Nights: [phone], please page [place] [facility] Night coverage pager [phone]. Assessment/Plan - Nicotine patch - Steroid taper - Complete course of doxycycline - Follow-up with Dr. Robin for pulmonary Reason for Admission: Acute exacerbation of COPD Consultants: Dr. Keating for pulmonary PROCEDURES: NONE Disposition: Home EK03/20/[address]-T changes with some terminal T wave inversions V1 through V4 not present on EKG 01/12/2021 ECHO: 12/16/2020 - The left ventricle is normal in size. Left ventricular systolic function is normal. EF = 73 ? 5% (2D biplane) Grade I left ventricular diastolic dysfunction. - The right ventricle is normal in size. Right ventricular systolic function is normal. - Estimated right ventricular systolic pressure is not reported due to an insufficient tricuspid regurgitation signal. Estimated right atrial pressure is 3 mmHg based on IVC assessment. - There is no patent foramen ovale as detected by Doppler. Nuclear stress test: 05/20/2019 ?1. SPECT Perfusion Study: Normal. ?2. There is no scintigraphic evidence for inducible ischemia. ?3. No evidence of scarred myocardium. ?4. Functional capacity N/A (pharmacological). ?5. Left ventricle is normal in size. The left ventricle systolic function is normal. ?6. Right ventricle is normal in size. ?7. This is a low risk scan. 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 Per patient she has been short of breath for past 2 weeks, she consulted a bottom turner who recommended her to go to the [facility] ED where she was monitored for 1 day and discharged on tapering dose of prednisone. Never had symptoms did not improve and she continued to have shortness of breath, wheezing and cough and she came to the ED for further evaluation. She reports clear to whitish phlegm associated with cough, denies any fever, chills, chest pain. Denies any palpitations, lightheadedness, dizziness, syncope, nausea, vomiting, diarrhea. Patient is a chronic smoker and continues to smoke. She tested negative for Covid, however chest x-ray did not show any acute infiltrate, labs showed leukocytosis ,, low potassium at 3.2, patient was admitted for management of COPD exacerbation. She was very weak and tight and initially see very debilitated however once her oxygenation improved she improved markedly she is seen in consultation by pulmonary and discharged on steroid taper and doxycycline. Patient is using nicotine patch and will attempt smoking cessation. She will follow-up with Dr. Rowena Robin for pulmonary. ? Recent Labs 03/22/21 0940 PH 7.443 PCO2 33.2* PO2 94.4 HCO3 22.4 BE -0.6 Recent Labs 03/22/21 0940 O2HB 96.0 COHB 0.9 MHGB 1.0 Recent Labs 03/23/21 0546 03/22/21 0619 03/20/21 2100 TROPT -- -- <0.010 MCV 92.0 92.9 93.5 MCH 29.3 29.7 29.7 MPV 10.0 10.0 9.7 Recent Labs 03/23/21 0546 03/22/21 0619 03/20/21 2100 WBC 16.08* 16.98* 18.45* RBC 4.23 4.21 4.62 HB 12.4 12.5 13.7 HCT 38.9 39.1 43.2 PLT 298 309 328 MCV 92.0 92.9 93.5 MCH 29.3 29.7 29.7 MPV 10.0 10.0 9.7 ABSNEUT -- -- 12.86* NEUTP -- -- 69.7 LYMPHP -- -- 23.1 MONOP -- -- 6.7 EODINP -- -- 0.3 Recent Labs 03/25/21 0936 03/25/21 0543 03/24/21 0512 03/23/21 0546 03/23/21 0546 03/22/21 0619 03/20/21 2100 GLUC -- 151* 135* -- 175* < > 169* NA -- 138 137 -- 136 < > 138 K 5.3* 5.7* 4.1 < > 4.5 < > 3.2* CHLOR -- 99 100 -- 101 < > 101 CO2 -- 28 27 -- 24 < > 23 CREAT -- 0.61 0.56* -- 0.64 < > 0.70 BUN -- 27* 27* -- 20 < > 29* ANION -- 11 10 -- 11 < > 14 CA -- 9.3 8.9 -- 8.8 < > 9.3 TPROT -- -- -- -- -- -- 6.8 ALB -- 3.5* 3.5* -- 3.7* -- 3.8* TBILI -- -- -- -- -- -- 0.2 ALKPHOS -- -- -- -- -- -- 109 AST -- -- -- -- -- -- 14 ALT -- -- -- -- -- -- 16 < > = values in this interval not displayed. Recent Labs 03/25/21 0543 03/24/21 0512 03/23/21 0546 BUN 27* 27* 20 CREAT 0.61 0.56* 0.64 CA 9.3 8.9 8.8 P 4.0 3.3 3.3 MG 2.3 2.3 2.2 Most recent labs PHYSICAL EXAM: BP 151/57 Pulse 60 Temp (Src) 98.1 (Oral) Resp 18 Ht 5' 3 (1.60m) Wt 194 lb (88.0kg) SpO2 95% BMI 34.37 kg/(m2). O2 Therapy: Room Air, Liters: 2 Physical Exam Performed GENERAL: Alert, no d (more content not included)...[id number] NoteHNO ID: [id number] Author: Mckay Frederick MD Service: Hospital Medicine Author Type: Physician Type: Progress Notes Filed: 03/24/2021 3:03 PM Note Text: DEPARTMENT OF HOSPITAL MEDICINE PROGRESS NOTE SERVICE DATE: 03/24/2021 SERVICE TIME: 2:58 PM Hospital Medicine/Primary Attending: Mckay Frederick MD NIGHT AND WEEKEND COVERAGE: RAMSEY COVERAGE: Nights: [phone], please page [place] [facility] Night coverage pager [phone]. Assessment/Plan ASSESSMENT No chest pain but significant, but improved shortness of breath - To oral antibiotic and oral steroid still dyspneic at rest but much improved. - Goal for glucose 80-180 - Goal: Magnesium 2.0 or higher; phosphorus 3.0 or higher; potassium 4.0 or higher - Basal prandial and sliding scale insulin using sliding scales 2 since this is because of steroids - Lexiscan is negative - PLAN - Desaturation study - If continues to improve discharge tomorrow - Bronchopulmonary hygiene with pickle and incentive spirometer - Standard steroid taper Reason for Admission: Acute exacerbation of COPD Consultants: Dr. Keating for pulmonary PROCEDURES: NONE Disposition: Home with [facility] EK03/20/[address]-T changes with some terminal T wave inversions V1 through V4 not present on EKG 01/12/2021 ECHO: 12/16/2020 - The left ventricle is normal in size. Left ventricular systolic function is normal. EF = 73 ? 5% (2D biplane) Grade I left ventricular diastolic dysfunction. - The right ventricle is normal in size. Right ventricular systolic function is normal. - Estimated right ventricular systolic pressure is not reported due to an insufficient tricuspid regurgitation signal. Estimated right atrial pressure is 3 mmHg based on IVC assessment. - There is no patent foramen ovale as detected by Doppler. Nuclear stress test: 05/20/2019 ?1. SPECT Perfusion Study: Normal. ?2. There is no scintigraphic evidence for inducible ischemia. ?3. No evidence of scarred myocardium. ?4. Functional capacity N/A (pharmacological). ?5. Left ventricle is normal in size. The left ventricle systolic function is normal. ?6. Right ventricle is normal in size. ?7. This is a low risk scan. 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 Per patient she has been short of breath for past 2 weeks, she consulted a bottom turner who recommended her to go to the [facility] ED where she was monitored for 1 day and discharged on tapering dose of prednisone. Never had symptoms did not improve and she continued to have shortness of breath, wheezing and cough and she came to the ED for further evaluation. She reports clear to whitish phlegm associated with cough, denies any fever, chills, chest pain. Denies any palpitations, lightheadedness, dizziness, syncope, nausea, vomiting, diarrhea. Patient is a chronic smoker and continues to smoke. She tested negative for Covid, however chest x-ray did not show any acute infiltrate, labs showed leukocytosis ,, low potassium at 3.2, patient was admitted for management of COPD exacerbation. ? Recent Labs 03/22/21 0940 PH 7.443 PCO2 33.2* PO2 94.4 HCO3 22.4 BE -0.6 Recent Labs 03/22/21 0940 O2HB 96.0 COHB 0.9 MHGB 1.0 Recent Labs 03/23/21 0546 03/22/21 0603/20/21 2100 TROPT -- -- <0.010 MCV 92.0 92.9 93.5 MCH 29.3 29.7 29.7 MPV 10.0 10.0 9.7 Recent Labs 03/23/21 0546 03/22/21 0603/20/21 2100 WBC 16.08* 16.98* 18.45* RBC 4.23 4.21 4.62 HB 12.4 12.5 13.7 HCT 38.9 39.1 43.2 PLT 298 309 328 MCV 92.0 92.9 93.5 MCH 29.3 29.7 29.7 MPV 10.0 10.0 9.7 ABSNEUT -- -- 12.86* NEUTP -- -- 69.7 LYMPHP -- -- 23.1 MONOP -- -- 6.7 EODINP -- -- 0.3 Recent Labs 03/24/21 0512 03/23/21 0546 03/22/21 0603/20/21 2100 03/20/21 2100 GLUC 135* 175* 198* < > 169* NA 137 136 140 < > 138 K 4.1 4.5 5.2* < > 3.2* CHLOR 100 101 104 < > 101 CO2 27 24 26 < > 23 CREAT 0.56* 0.64 0.58 < > 0.70 BUN 27* 20 22* < > 29* ANION 10 11 10 < > 14 CA 8.9 8.8 9.3 < > 9.3 TPROT -- -- -- -- 6.8 ALB 3.5* 3.7* -- -- 3.8* TBILI -- -- -- -- 0.2 ALKPHOS -- -- -- -- 109 AST -- -- -- -- 14 ALT -- -- -- -- 16 < > = values in this interval not displayed. Recent Labs 03/24/21 0512 03/23/21 0546 03/22/21 0619 BUN 27* 20 22* CREAT 0.56* 0.64 0.58 CA 8.9 8.8 9.3 P 3.3 3.3 4.0 MG 2.3 2.2 2.1 Most recent labs PHYSICAL EXAM: BP 152/62 Pulse 59 Temp (Src) 97.7 (Oral) Resp 16 Ht 5' 3 (1.60m) Wt 194 lb (88.0kg) SpO2 98% BMI 34.37 kg/(m2). O2 Therapy: Nasal Cannula, Liters: 2 Physical Exam Performed GENERAL: Alert, (more content not included)...[facility] [id number] NoteHNO ID: [id number] Author: Mckay Frederick MD Service: Hospital Medicine Author Type: Physician Type: Progress Notes Filed: 03/23/2021 1:46 PM Note Text: DEPARTMENT OF HOSPITAL MEDICINE PROGRESS NOTE SERVICE DATE: 03/23/2021 SERVICE TIME: 1:42 PM Hospital Medicine/Primary Attending: Mckay Frederick MD NIGHT AND WEEKEND COVERAGE: RAMSEY COVERAGE: Nights: [phone], please page [facility] Night coverage pager [phone]. Assessment/Plan ASSESSMENT No chest pain but significant, but improved shortness of breath - To oral antibiotic and oral steroid still dyspneic at rest but much improved. - Goal for glucose 80-180 - Goal: Magnesium 2.0 or higher; phosphorus 3.0 or higher; potassium 4.0 or higher - Basal prandial and sliding scale insulin using sliding scales 2 since this is because of steroids - PLAN - We will after midnight her 4 units of insulin in the morning would only be 1/6 of a unit per hour and being n.p.o. should not affect that. Her prandial insulin is okay at the current dose since she will not be eating breakfast and with the steroids she has most of her hyperglycemia from the steroids. - Discussion with PICC nurse and an IV should be established tonight as her veins are too small for PICC line they thought they can get a peripheral line in her for the stress test - Nuclear stress test discussed with cardiology anterior T wave inversions on arrival and persistent dyspnea with fairly good oxygenation trying to decide how much of this is cardiac ischemia setting off her bronchospasm Reason for Admission: Acute exacerbation of COPD Consultants: Dr. Keating for pulmonary PROCEDURES: NONE Disposition: Home with [facility] EK03/20/[address]-T changes with some terminal T wave inversions V1 through V4 not present on EKG 01/12/2021 ECHO: 12/16/2020 - The left ventricle is normal in size. Left ventricular systolic function is normal. EF = 73 ? 5% (2D biplane) Grade I left ventricular diastolic dysfunction. - The right ventricle is normal in size. Right ventricular systolic function is normal. - Estimated right ventricular systolic pressure is not reported due to an insufficient tricuspid regurgitation signal. Estimated right atrial pressure is 3 mmHg based on IVC assessment. - There is no patent foramen ovale as detected by Doppler. Nuclear stress test: 05/20/2019 ?1. SPECT Perfusion Study: Normal. ?2. There is no scintigraphic evidence for inducible ischemia. ?3. No evidence of scarred myocardium. ?4. Functional capacity N/A (pharmacological). ?5. Left ventricle is normal in size. The left ventricle systolic function is normal. ?6. Right ventricle is normal in size. ?7. This is a low risk scan. 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 Per patient she has been short of breath for past 2 weeks, she consulted a bottom turner who recommended her to go to the [facility] ED where she was monitored for 1 day and discharged on tapering dose of prednisone. Never had symptoms did not improve and she continued to have shortness of breath, wheezing and cough and she came to the ED for further evaluation. She reports clear to whitish phlegm associated with cough, denies any fever, chills, chest pain. Denies any palpitations, lightheadedness, dizziness, syncope, nausea, vomiting, diarrhea. Patient is a chronic smoker and continues to smoke. She tested negative for Covid, however chest x-ray did not show any acute infiltrate, labs showed leukocytosis ,, low potassium at 3.2, patient was admitted for management of COPD exacerbation. ? Recent Labs 03/22/21 0940 PH 7.443 PCO2 33.2* PO2 94.4 HCO3 22.4 BE -0.6 Recent Labs 03/22/21 0940 O2HB 96.0 COHB 0.9 MHGB 1.0 Recent Labs 03/23/21 0546 03/22/21 0603/20/21 2100 TROPT -- -- <0.010 MCV 92.0 92.9 93.5 MCH 29.3 29.7 29.7 MPV 10.0 10.0 9.7 Recent Labs 03/23/21 0546 03/22/2161803/20/21 2100 WBC 16.08* 16.98* 18.45* RBC 4.23 4.21 4.62 HB 12.4 12.5 13.7 HCT 38.9 39.1 43.2 PLT 298 309 328 MCV 92.0 92.9 93.5 MCH 29.3 29.7 29.7 MPV 10.0 10.0 9.7 ABSNEUT -- -- 12.86* NEUTP -- -- 69.7 LYMPHP -- -- 23.1 MONOP -- -- 6.7 EODINP -- -- 0.3 Recent Labs 03/23/21 0546 03/22/21 0603/20/21 2100 GLUC 175* 198* 169* NA 136 140 138 K 4.5 5.2* 3.2* CHLOR 101 104 101 CO2 24 26 23 CREAT 0.64 0.58 0.70 BUN 20 22* 29* ANION 11 10 14 CA 8.8 9.3 9.3 TPROT -- -- 6.8 ALB 3.7* -- 3.8* TBILI -- -- 0.2 ALKPHOS -- -- 109 AST -- -- 14 ALT -- -- 16 Recent Labs 03/23/21 0546 03/22/21 0619 03/20/21 (more content not included)...[facility] [id number] NoteHNO ID: [id number] Author: Mckay Frederick MD Service: Hospital Medicine Author Type: Physician Type: Progress Notes Filed: 03/22/2021 9:03 AM Note Text: DEPARTMENT OF HOSPITAL MEDICINE PROGRESS NOTE SERVICE DATE: 03/22/2021 SERVICE TIME: 8:18 AM Hospital Medicine/Primary Attending: Mckay Frederick MD NIGHT AND WEEKEND COVERAGE: RAMSEY COVERAGE: Nights: [phone], please page [facility] Night coverage pager [phone]. Assessment/Plan ASSESSMENT No chest pain or shortness of breath - Patient with significant wheezing is already had one observation. And is not improving. She sees Rowena Robin for pulmonary in [place]. - Goal for glucose 80-180 - Goal: Magnesium 2.0 or higher; phosphorus 3.0 or higher; potassium 4.0 or higher - Basal prandial and sliding scale insulin using sliding scales 2 since this is because of steroids - PLAN - Regaining IV access nursing unable will have PICC team attempt and put whatever line is necessary then - CT chest-centrilobular emphysema with atelectasis left base - Pulmonary consult - ABG - Repeat EKG - Continue steroids - Treat with ceftriaxone and azithromycin mucous plugs/atelectasis Reason for Admission: Acute exacerbation of COPD Consultants: Dr. Keating for pulmonary PROCEDURES: NONE Disposition: Home with [facility] EK03/20/[address]-T changes with some terminal T wave inversions V1 through V4 not present on EKG 01/12/2021 ECHO: 12/16/2020 - The left ventricle is normal in size. Left ventricular systolic function is normal. EF = 73 ? 5% (2D biplane) Grade I left ventricular diastolic dysfunction. - The right ventricle is normal in size. Right ventricular systolic function is normal. - Estimated right ventricular systolic pressure is not reported due to an insufficient tricuspid regurgitation signal. Estimated right atrial pressure is 3 mmHg based on IVC assessment. - There is no patent foramen ovale as detected by Doppler. Nuclear stress test: 05/20/2019 ?1. SPECT Perfusion Study: Normal. ?2. There is no scintigraphic evidence for inducible ischemia. ?3. No evidence of scarred myocardium. ?4. Functional capacity N/A (pharmacological). ?5. Left ventricle is normal in size. The left ventricle systolic function is normal. ?6. Right ventricle is normal in size. ?7. This is a low risk scan. 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 Per patient she has been short of breath for past 2 weeks, she consulted a bottom turner who recommended her to go to the [facility] ED where she was monitored for 1 day and discharged on tapering dose of prednisone. Never had symptoms did not improve and she continued to have shortness of breath, wheezing and cough and she came to the ED for further evaluation. She reports clear to whitish phlegm associated with cough, denies any fever, chills, chest pain. Denies any palpitations, lightheadedness, dizziness, syncope, nausea, vomiting, diarrhea. Patient is a chronic smoker and continues to smoke. She tested negative for Covid, however chest x-ray did not show any acute infiltrate, labs showed leukocytosis ,, low potassium at 3.2, patient was admitted for management of COPD exacerbation. ? No results for input(s): PH, PHABG, PCO2, PO2, HCO3, BEABG, BE, VPH, VPC2, VPO2C, SYY3WHD, VBE, BICARB, PHCAP, VLH4CUY, PO2POC, ONY3SON, BEPOC, LACT in the last 168 hours. No results for input(s): GLB, GLUCOSEPOC, HCTPOC, HGBPOC, HCTVBG, HGBVGB, W5AJYJI, O2HB, O2CT, COHB, MHGB, KWB, CLWH, IC in the last 168 hours. Invalid input(s): NAB Recent Labs 03/22/21 0603/20/21 2100 TROPT -- <0.010 MCV 92.9 93.5 MCH 29.7 29.7 MPV 10.0 9.7 Recent Labs 03/22/2161803/20/21 2100 WBC 16.98* 18.45* RBC 4.21 4.62 HB 12.5 13.7 HCT 39.1 43.2 PLT 309 328 MCV 92.9 93.5 MCH 29.7 29.7 MPV 10.0 9.7 ABSNEUT -- 12.86* NEUTP -- 69.7 LYMPHP -- 23.1 MONOP -- 6.7 EODINP -- 0.3 Recent Labs 03/22/2161803/20/21 2100 GLUC 198* 169* NA 140 138 K 5.2* 3.2* CHLOR 104 101 CO2 26 23 CREAT 0.58 0.70 BUN 22* 29* ANION 10 14 CA 9.3 9.3 TPROT -- 6.8 ALB -- 3.8* TBILI -- 0.2 ALKPHOS -- 109 AST -- 14 ALT -- 16 Recent Labs 03/22/2161803/20/21 2100 BUN 22* 29* CREAT 0.58 0.70 CA 9.3 9.3 Most recent labs PHYSICAL EXAM: BP 102/74 Pulse 66 Temp (Src) 97.9 (Oral) Resp 20 Ht 5' 3 (1.60m) Wt 194 lb (88.0kg) SpO2 98% BMI 34.37 kg/(m2). O2 Therapy: Room Air, Liters: 2 Physical Exam Performed GENERAL: Alert, no distress, cooperative NECK: No jugulovenous distention, Supple LUNGS: Dimin (more content not included)...[facility] [id number] NoteHNO ID: [id number] Author: Mckay Frederick MD Service: Hospital Medicine Author Type: Physician Type: Progress Notes Filed: 03/22/2021 8:17 AM Note Text: DEPARTMENT OF HOSPITAL MEDICINE PROGRESS NOTE SERVICE DATE: 03/21/2021 SERVICE TIME: 5:18 PM Hospital Medicine/Primary Attending: Mckay Frederick MD NIGHT AND WEEKEND COVERAGE: RAMSEY COVERAGE: Nights: [phone], please page [facility] Night coverage pager [phone]. Assessment/Plan ASSESSMENT No chest pain or shortness of breath - Patient with significant wheezing is already had one observation. And is not improving. She sees Rowena Robin for pulmonary in [place]. PLAN - CT chest - Pulmonary consult - ABG - Repeat EKG - Continue steroids - Treat with ceftriaxone and azithromycin mucous plugs Reason for Admission: Acute exacerbation of COPD Consultants: Dr. Keating for pulmonary PROCEDURES: NONE Disposition: Home with [facility] EK03/20/[address]-T changes with some terminal T wave inversions V1 through V4 not present on EKG 01/12/2021 ECHO: 12/16/2020 - The left ventricle is normal in size. Left ventricular systolic function is normal. EF = 73 ? 5% (2D biplane) Grade I left ventricular diastolic dysfunction. - The right ventricle is normal in size. Right ventricular systolic function is normal. - Estimated right ventricular systolic pressure is not reported due to an insufficient tricuspid regurgitation signal. Estimated right atrial pressure is 3 mmHg based on IVC assessment. - There is no patent foramen ovale as detected by Doppler. Nuclear stress test: 05/20/2019 ?1. SPECT Perfusion Study: Normal. ?2. There is no scintigraphic evidence for inducible ischemia. ?3. No evidence of scarred myocardium. ?4. Functional capacity N/A (pharmacological). ?5. Left ventricle is normal in size. The left ventricle systolic function is normal. ?6. Right ventricle is normal in size. ?7. This is a low risk scan. 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 Per patient she has been short of breath for past 2 weeks, she consulted a bottom turner who recommended her to go to the [facility] ED where she was monitored for 1 day and discharged on tapering dose of prednisone. Never had symptoms did not improve and she continued to have shortness of breath, wheezing and cough and she came to the ED for further evaluation. She reports clear to whitish phlegm associated with cough, denies any fever, chills, chest pain. Denies any palpitations, lightheadedness, dizziness, syncope, nausea, vomiting, diarrhea. Patient is a chronic smoker and continues to smoke. She tested negative for Covid, however chest x-ray did not show any acute infiltrate, labs showed leukocytosis ,, low potassium at 3.2, patient was admitted for management of COPD exacerbation. ? No results for input(s): PH, PHABG, PCO2, PO2, HCO3, BEABG, BE, VPH, VPC2, VPO2C, FSG7WKC, VBE, BICARB, PHCAP, GOP5HEJ, PO2POC, DHP6JKF, BEPOC, LACT in the last 168 hours. No results for input(s): GLB, GLUCOSEPOC, HCTPOC, HGBPOC, HCTVBG, HGBVGB, H5UXSQT, O2HB, O2CT, COHB, MHGB, KWB, CLWH, IC in the last 168 hours. Invalid input(s): NAB Recent Labs 03/20/21 2100 TROPT <0.010 MCV 93.5 MCH 29.7 MPV 9.7 Recent Labs 03/20/21 2100 WBC 18.45* RBC 4.62 HB 13.7 HCT 43.2 PLT 328 MCV 93.5 MCH 29.7 MPV 9.7 ABSNEUT 12.86* NEUTP 69.7 LYMPHP 23.1 MONOP 6.7 EODINP 0.3 Recent Labs 03/20/21 2100 GLUC 169* NA 138 K 3.2* CHLOR 101 CO2 23 CREAT 0.70 BUN 29* ANION 14 CA 9.3 TPROT 6.8 ALB 3.8* TBILI 0.2 ALKPHOS 109 AST 14 ALT 16 Recent Labs 03/20/21 2100 BUN 29* CREAT 0.70 CA 9.3 Most recent labs PHYSICAL EXAM: BP 148/58 Pulse 84 Temp (Src) 97.7 (Oral) Resp 18 Ht 5' 3 (1.60m) Wt 194 lb (88.0kg) SpO2 98% BMI 34.37 kg/(m2). O2 Therapy: Nasal Cannula, Liters: 2 Physical Exam Performed GENERAL: Alert, no distress, cooperative NECK: No jugulovenous distention, Supple LUNGS: Diminished bilaterally very prolonged expiratory phase diffuse wheezing, respiratory distress -mild at rest on oxygen using intercostal and abdominal muscles for breathing about 5 word sentences not tripoding CARDIAC: Rhythm: regular rate and rhythm, Rate: normal, S1: normal intensity, S2: normal intensity and physiologically split, murmur -none audible ABDOMEN: Abdomen soft, non-tender, BS normal, No masses or organomegaly EXTREMITIES: No edema, no cords NEURO: Grossly normal cognition and motor function The remainder of the physical exam is noncontributory. COPD (chronic o (more content not included)...[facility] Other emphysema (HCC) Other emphysema Restless leg syndrome Restless legs syndrome (RLS) SHANA (obstructive sleep apnea) Obstructive sleep apnea (adult) (pediatric) Coronary artery disease involving [place] coronary artery of [place] heart without angina pectoris Chronic respiratory failure, unspecified whether with hypoxia or hypercapnia (HCC) Controlled type 2 diabetes mellitus without complication, without long-term current use of insulin (HCC) Coronary stent patent Essential hypertension Unspecified essential hypertension History of pulmonary embolism Personal history of pulmonary embolism Hypokalemia Hypopotassemia Malignant neoplasm of hilus of lung, unspecified laterality (HCC) Obesity, Class I, BMI 30-34.9 Obesity, unspecified Osteoporosis, unspecified osteoporosis type, unspecified pathological fracture presence Pure hypercholesterolemia Tobacco use disorder Leukocytosis, unspecified type [facility] Hypokalemia- Primary Hypopotassemia [facility] Diagnosis Acute shoulder pain, unspecified laterality- Primary [facility] Diagnosis Change in bowel habits Other symptoms involving digestive system Nausea Nausea alone Diarrhea, unspecified type [facility] Diagnosis AC joint arthropathy- Primary Unspecified disorder of shoulder joint [facility] Diagnosis Other emphysema (HCC)- Primary Other emphysema Hypokalemia Hypopotassemia Hyperkalemia Hyperpotassemia Essential hypertension Unspecified essential hypertension Pure hypercholesterolemia Type 2 diabetes mellitus without complication, without long-term current use of insulin (HCC) documented in this encounter [facility]* Diagnosis Gastroesophageal reflux disease, unspecified whether esophagitis present- Primary Chronic superficial gastritis without bleeding Atrophic gastritis without mention of hemorrhage documented in this encounter [facility] note* Diagnosis Chronic obstructive pulmonary disease, unspecified COPD type (HCC)- Primary documented in this encounter [facility] note* Diagnosis COPD with exacerbation (HCC)- Primary Obstructive chronic bronchitis with exacerbation Anxiety with depression Essential hypertension Unspecified essential hypertension Coronary artery disease involving [place] coronary artery of [place] heart without angina pectoris Stable angina pectoris (HCC) Type 2 diabetes mellitus without complication, without long-term current use of insulin (HCC) Screening breast examination Breast screening, unspecified documented in this encounter [facility] note* Diagnosis Dyspnea and respiratory abnormalities- Primary Other dyspnea and respiratory abnormality documented in this encounter [facility] note* Diagnosis Screening breast examination Breast screening, unspecified documented in this encounter [facility] note* Diagnosis Restless leg syndrome Restless legs syndrome (RLS) documented in this encounter [facility] note* Diagnosis Stage 3 severe COPD by GOLD classification ([facility])- Primary Acute bronchitis, unspecified organism Chronic respiratory failure, unspecified whether with hypoxia or hypercapnia (HCC) documented in this encounter [facility] note* Diagnosis Stage 3 severe COPD by GOLD classification ([facility])- Primary Chronic respiratory failure, unspecified whether with hypoxia or hypercapnia (HCC) Cigarette smoker Tobacco use disorder documented in this encounter [facility] note* Diagnosis Chronic obstructive pulmonary disease, unspecified COPD type (HCC)- Primary documented in this encounter [facility] note* Diagnosis Chronic obstructive pulmonary disease, unspecified COPD type (HCC)- Primary Pure hypercholesterolemia Coronary artery disease involving [place] coronary artery of [place] heart without angina pectoris Essential hypertension Unspecified essential hypertension SHANA (obstructive sleep apnea) Obstructive sleep apnea (adult) (pediatric) Malignant neoplasm of hilus of lung, unspecified laterality (HCC) Controlled type 2 diabetes mellitus without complication, without long-term current use of insulin (HCC) Osteoporosis, unspecified osteoporosis type, unspecified pathological fracture presence Obesity, Class I, BMI 30-34.9 Obesity, unspecified documented in this encounter [facility] note* Diagnosis Stage 3 severe COPD by GOLD classification ([facility])- Primary Chronic respiratory failure, unspecified whether with hypoxia or hypercapnia (HCC) Cigarette smoker Tobacco use disorder documented in this encounter [facility] note* Diagnosis Osteoporosis, unspecified osteoporosis type, unspecified pathological fracture presence Compression fracture of body of thoracic vertebra (HCC) documented in this encounter [facility] note* Diagnosis Chronic left shoulder pain- Primary Pain in joint, shoulder region Stage 3 severe COPD by GOLD classification (HCC) Osteoporosis, unspecified osteoporosis type, unspecified pathological fracture presence Other emphysema (HCC) Other emphysema Centrilobular emphysema (HCC) Other emphysema Controlled type 2 diabetes mellitus without complication, without long-term current use of insulin (HCC) Chronic respiratory failure, unspecified whether with hypoxia or hypercapnia (HCC) Other pulmonary embolism without acute cor pulmonale, unspecified chronicity (HCC) Restless leg syndrome Restless legs syndrome (RLS) Essential hypertension Unspecified essential hypertension SHANA (obstructive sleep apnea) Obstructive sleep apnea (adult) (pediatric) Malignant neoplasm of hilus of lung, unspecified laterality (HCC) History of pulmonary embolus (PE) Personal history of pulmonary embolism Anemia, unspecified type Headache, unspecified headache type Neck pain Cervicalgia Coronary artery disease involving [place] coronary artery of [place] heart without angina pectoris Need for vaccination Need for prophylactic vaccination and inoculation against unspecified single disease Tremor Abnormal involuntary movements documented in this encounter [facility] note* Diagnosis Arthralgia, unspecified joint- Primary documented in this encounter [facility] note* Diagnosis Malignant neoplasm of hilus of lung, unspecified laterality (HCC)- Primary Headache, unspecified headache type Tremor Abnormal involuntary movements documented in this encounter [facility] note* Diagnosis AC joint arthropathy- Primary Unspecified disorder of shoulder joint documented in this encounter [facility] note* Diagnosis Primary osteoarthritis, unspecified shoulder- Primary documented in this encounter [facility] note* Diagnosis Post-traumatic osteoarthritis, other specified site- Primary Post-traumatic osteoarthritis, other specified site documented in this encounter [facility] note* Diagnosis Encounter for screening mammogram for breast cancer documented in this encounter [facility] for referral (narrative)* Outpatient Procedure (Routine) - Closed Specialty Diagnoses / Procedures Referred By Rabia carr Referred To Contact [facility] Diagnoses Change in bowel habits Nausea Diarrhea, unspecified type Procedures EGD DIAGNOSTIC EGD DIAGNOSTIC ESOPHAGOGASTRODUODENOSC OPY TRANSORAL DIAGNOSTIC ESOPHAGOGASTRODUODENOSC OPY TRANSORAL DIAGNOSTIC Elean Ibarra PA-C [address] [place] [address] [facility] [place] [address] [place] [address] Referral ID Status Reason Start Date Expiration Date V isits Requested Visits Authorized [id number] Closed Auto-Generate d Referral 09/14/2021 09/14/2022 1 1 * Outpatient Procedure (Routine) - Closed Specialty Diagnoses / Procedures Referred By Rabia t Referred To Contact Diagnoses Change in bowel habits Nausea Diarrhea, unspecified type Procedures COLONOSCOPY SCREENING COLONOSCOPY SCREENING COLONOSCOPY FLX DX W/COLLJ SPEC WHEN PFRMD COLONOSCOPY FLX DX W/COLLJ SPEC WHEN PFRMD ESOPHAGOGASTRODUODENOSCOPY TRANSORAL DIAGNOSTIC Elena Ibarra PA-C [address] [place] [address] [facility] [address] [place] [id number] Referral ID Status Reason Start Date Expiration Date V isits Requested Visits Authorized [id number] Closed Auto-Generate d Referral 11/30/2021 08/25/2022 1 1 [facility] for referral (narrative)* Diagnostic Procedure Only (Routine) - Authorized Specialty Diagnoses / Procedures Referred By Rabia t Referred To Contact [facility] Diagnoses Screening breast examination Procedures ELIZA SCREENING SCREENING MAMMOGRAPHY BI 2-VIEW BREAST INC CAD Heladio Madsen MD [address] [place] [address] [facility] [address] [place] [address] Referral ID Status Reason Start Date Expiration Date Visits Requested Visits Authorized [id number] Authorized Auto-Generat ed Referral 03/05/2022 04/04/2023 1 1 * Transition of Care (Routine) - Ref Not Required Specialty Diagnoses / Procedures Referred By Contac t Referred To Contact Cardiology Diagnoses Coronary artery disease involving [place] coronary artery of [place] heart without angina pectoris Procedures CONSULT TO CARDIOLOGY Heladio Madsen MD [address] [place] [address] Referral ID Status Reason Start Date Expiration Date Visits Requested Visits Authorized [id number] Ref Not Required PCP Requested Referral 03/05/2022 03/05/2023 1 1 [facility] for referral (narrative)* Diagnostic Procedure Only (Routine) - Closed Specialty Diagnoses / Procedures [facility] To Contact [facility] Diagnoses Screening breast examination Procedures ELIZA SCREENING SCREENING MAMMOGRAPHY BI 2-VIEW BREAST INC CAD Heladio Madsen MD [address] [place] [address] [facility] [address] [place] [address] Referral ID Status Reason Start Date Expiration Date V isits Requested Visits Authorized [id number] Closed Auto-Generate d Referral 03/05/2022 04/04/2023 1 1 [facility] for referral (narrative)* Outpatient Procedure (Routine) - Pending Review Specialty Diagnoses / Procedures [facility] To [facility] Diagnoses Stage 3 severe COPD by GOLD classification (HCC) Chronic respiratory failure, unspecified whether with hypoxia or hypercapnia (HCC) Procedures OXIMETRY WITH AMBULATION NONINVASIVE EAR/PULSE OXIMETRY MULTIPLE Debo Bentley PA-C [address] [place] [address] [facility] [place] [address] [place] [address] Referral ID Status Reason Start Date Expiration Date Visits Requested Visits Authorized [id number] Pending Review Auto-Generat ed Referral 07/26/2022 08/25/2023 1 1 * Outpatient Procedure (Routine) - Pending Review Specialty Diagnoses / Procedures [facility] Diagnoses Stage 3 severe COPD by GOLD classification (HCC) Procedures SPIROMETRY BASELINE ONLY SPMTRY W/VC EXPIRATORY SRI W/WO MXML VOL VNTJ Debo Oviedo PA-C [address] [place] [address] [facility] [place] [address] [place] [address] Referral ID Status Reason Start Date Expiration Date Visits Requested Visits Authorized [id number] Pending Review Auto-Generat ed Referral 07/26/2022 08/25/2023 1 1 [facility] for referral (narrative)* Diagnostic Procedure Only (Routine) - Pending Review Specialty Diagnoses / Procedures Referred By Rabia carr Referred To Contact [facility] Diagnoses Encounter for screening mammogram for breast cancer Procedures ELIZA SCREENING SCREENING MAMMOGRAPHY BI 2-VIEW BREAST INC CAD Heladio Madsen MD [address] [place] [address] [facility] [address] [place] [phone] Referral ID Status Reason Start Date Expiration Date Visits Requested Visits Authorized [id number] Pending Review Auto-Generat ed Referral 04/24/2023 05/23/2024 1 1 [facility] for visit Narrative* Outpatient Procedure (Routine) - Closed Specialty Diagnoses / Procedures Referred By Rabia carr Referred To Contact Diagnoses Change in bowel habits Nausea Diarrhea, unspecified type Procedures COLONOSCOPY SCREENING COLONOSCOPY SCREENING COLONOSCOPY FLX DX W/COLLJ SPEC WHEN PFRMD COLONOSCOPY FLX DX W/COLLJ SPEC WHEN PFRMD ESOPHAGOGASTRODUODENOSCOPY TRANSORAL DIAGNOSTIC Elena Ibarra PA-C [address] [place] [address] [facility] [address] [place] [id number] Referral ID Status Reason Start Date Expiration Date V isits Requested Visits Authorized [id number] Closed Auto-Generate d Referral 11/30/2021 08/25/2022 1 [facility] Diagnostic Procedure Only (Routine) - Closed Specialty Diagnoses / Procedures Referred By Contac t Referred To Contact [facility] Diagnoses Screening breast examination Procedures LEIZA SCREENING SCREENING MAMMOGRAPHY BI 2-VIEW BREAST INC CAD Heladio Madsen MD [address] [place] [address] [facility] [address] [place] [address] Referral ID Status Reason Start Date Expiration Date V isits Requested Visits Authorized [id number] Closed Auto-Generate d Referral 03/05/2022 04/04/2023 1 1 [facility] Summary Purpose Family History No Family History Records FoundNo Family History Records FoundNo Family History Records FoundNo Family History Records FoundNo Family History Records FoundNo Family History Records Found Advance Directives No Advanced Directives Records FoundDocuments on File Type Date Recorded Patient Daycare Provider Expl anation Advance Directive(s) 07/17/2021 12:49 PM Advance Directive(s) 07/14/2021 4:45 PM Advance Directive(s) 03/20/2021 8:43 PM Advance Directive(s) 12/26/2020 2:19 PM Advance Directive(s) 12/16/2020 9:38 AM Advance Directive(s) 12/15/2020 1:01 PM Advance Directive(s) 07/13/2019 12:37 PM Advance Directive(s) 01/28/2019 11:53 AM Advance Directive(s) 07/07/2018 3:39 PM Latest Code Status on File Code Status Date Activated Date Inactivated Comments Full Code 07/17/2021 6:24 PM 07/18/2021 5:41 PM Full Code Order Discussed With: Patient Documents on File Type Date Recorded Patient Daycare Provider Expl anation Advance Directive(s) 12/18/2021 10:46 AM Advance Directive(s) 07/17/2021 12:49 PM Advance Directive(s) 07/14/2021 4:45 PM Advance Directive(s) 03/20/2021 8:43 PM Advance Directive(s) 12/26/2020 2:19 PM Advance Directive(s) 12/16/2020 9:38 AM Advance Directive(s) 12/15/2020 1:01 PM Advance Directive(s) 07/13/2019 12:37 PM Advance Directive(s) 01/28/2019 11:53 AM Advance Directive(s) 07/07/2018 3:39 PM Latest Code Status on File Code Status Date Activated Date Inactivated Comments Full Code 07/17/2021 6:24 PM 07/18/2021 5:41 PM Documents on File Type Date Recorded Patient Daycare Provider Expl anation Advance Directive(s) 12/18/2021 10:46 AM Advance Directive(s) 07/17/2021 12:49 PM Advance Directive(s) 07/14/2021 4:45 PM Advance Directive(s) 03/20/2021 8:43 PM Advance Directive(s) 12/26/2020 2:19 PM Advance Directive(s) 12/16/2020 9:38 AM Advance Directive(s) 12/15/2020 1:01 PM Advance Directive(s) 07/13/2019 12:37 PM Advance Directive(s) 01/28/2019 11:53 AM Advance Directive(s) 07/07/2018 3:39 PM Documents on File Type Date Recorded Patient Daycare Provider Expl anation Advance Directive(s) 02/13/2022 5:38 PM Advance Directive(s) 12/18/2021 10:46 AM Advance Directive(s) 07/17/2021 12:49 PM Advance Directive(s) 07/14/2021 4:45 PM Advance Directive(s) 03/20/2021 8:43 PM Advance Directive(s) 12/26/2020 2:19 PM Advance Directive(s) 12/16/2020 9:38 AM Advance Directive(s) 12/15/2020 1:01 PM Advance Directive(s) 07/13/2019 12:37 PM Advance Directive(s) 01/28/2019 11:53 AM Advance Directive(s) 07/07/2018 3:39 PM Latest Code Status on File Code Status Date Activated Date Inactivated Comments Full Code 02/13/2022 10:11 PM Full Code 07/17/2021 6:24 PM 07/18/2021 5:41 PM Latest Code Status on File Code Status Date Activated Date Inactivated Comments Full Code 02/13/2022 10:11 PM 02/16/2022 9:40 PM Documents on File Type Date Recorded Patient Daycare Provider Expl anation Advance Directive(s) 02/13/2022 5:38 PM Advance Directive(s) 12/18/2021 10:46 AM Advance Directive(s) 07/17/2021 12:49 PM Advance Directive(s) 07/14/2021 4:45 PM Advance Directive(s) 03/20/2021 8:43 PM Advance Directive(s) 12/26/2020 2:19 PM Advance Directive(s) 12/16/2020 9:38 AM Advance Directive(s) 12/15/2020 1:01 PM Advance Directive(s) 07/13/2019 12:37 PM Advance Directive(s) 01/28/2019 11:53 AM Advance Directive(s) 07/07/2018 3:39 PM Latest Code Status on File Code Status Date Activated Date Inactivated Comments Full Code 02/13/2022 10:11 PM 02/16/2022 9:40 PM Full Code 07/17/2021 6:24 PM 07/18/2021 5:41 PM Latest Code Status on File Code Status Date Activated Date Inactivated Comments Full Code 02/13/2022 10:11 PM 02/16/2022 9:40 PM Question Answer Comments Full Code Order Discussed With: Patient Code Status History Code Status Date Activated Date Inactivated Comments Full Code 07/17/2021 6:24 PM 07/18/2021 5:41 PM Question Answer Comments Full Code Order Discussed With: Patient Latest Code Status on File Code Status Date Activated Date Inactivated Comments Full Code 02/13/2022 10:11 PM 02/16/2022 9:40 PM Question Answer Comments Full Code Order Discussed With: Patient Code Status History Code Status Date Activated Date Inactivated Comments Full Code 07/17/2021 6:24 PM 07/18/2021 5:41 PM Question Answer Comments Full Code Order Discussed With: Patient Reason for Referral Specialty Diagnoses / Procedures Referred By Contac t Referred To Contact Cardiology Diagnoses Coronary artery disease involving [place] coronary artery of [place] heart without angina pectoris Procedures CONSULT TO CARDIOLOGY OFFICE/OUTPATIENT [facility] 60-74 MINUTES Heladio Madsen MD [address] [place] [address] Referral ID Status Reason Start Date Expiration Date Visits Requested Visits Authorized [id number] Authorized PCP Requested Referral 2 07/06/2023 1 1 Specialty Diagnoses / Procedures Referred By Contac t Referred To Contact [facility] Diagnoses Malignant neoplasm of hilus of lung, unspecified laterality (HCC) Headache, unspecified headache type Tremor Procedures MRI BRAIN WO IVCON MRI BRAIN BRAIN STEM W/O CONTRAST MATERIAL Heladio Madsen MD [address] [place] [address] Mr Imaging Referral ID Status Reason Start Date Expiration Date Visits Requested Visits Authorized [id number] Pending Review Auto-Generat ed Referral 09/06/2022 10/06/2023 1 1 Specialty Diagnoses / Procedures Referred By Contac t Referred To Contact Diagnoses Chronic left shoulder pain Procedures CONSULT [place] [address] [place] [id number] Referral ID Status Reason Start Date Expiration Date V isits Requested Visits Authorized [id number] Closed PCP Requested Referral 09/06/2022 09/06/2023 1 1 Specialty Diagnoses / Procedures Referred By Contac t Referred To Contact XR IMAGING Diagnoses Neck pain Procedures XR CERV OTHER 4V AP/LAT/OBL RADEX SPINE CERVICAL 4 OR 5 VIEWS Heladio Madsen MD [address] [place] [address] Xr Imaging Referral ID Status Reason Start Date Expiration Date V isits Requested Visits Authorized [id number] Closed Auto-Generate d Referral 09/06/2022 10/06/2023 1 1 Specialty Diagnoses / Procedures Referred By Contac t Referred [facility] Contact [facility] Diagnoses Coronary artery disease involving [place] coronary artery of [place] heart without angina pectoris Procedures ECG COMPLETE ECG ROUTINE ECG W/LEAST 12 LDS W/I&R Heladio Madsen MD [address] [place] [address] [facility] [place] [address] [facility] [place] [address] Referral ID Status Reason Start Date Expiration Date Visits Requested Visits Authorized [id number] Authorized Auto-Generat ed Referral 09/06/2022 09/06/2023 1 1 Specialty Diagnoses / Procedures Referred By Contac t Referred To Contact MR IMAGING Diagnoses Malignant neoplasm of hilus of lung, unspecified laterality (HCC) Headache, unspecified headache type Tremor Procedures MRI BRAIN WO/W IVCON MRI BRAIN BRAIN STEM W/O W/CONTRAST MATERIAL Heladio Madsen MD [address] [place] [address] Mr Imaging Referral ID Status Reason Start Date Expiration Date Visits Requested Visits Authorized [id number] Pending Review Auto-Generat ed Referral 09/26/2022 10/26/2023 1 1 Specialty Diagnoses / Procedures Referred By Rabia t Referred To Contact Radiology Diagnoses Post-traumatic osteoarthritis, other specified site Procedures IR joint Claudia Merchant Pa-C [address] [place] [address] Referral ID Status Reason Start Date Expiration Date Visits Re quested Visits Authorized [id number] Closed 10/26/2022 04/24/2023 1 1 Additional Source Comments INFORMATION SOURCE (unrecogn ized section and content) DATE CREATED AUTHOR AUTHOR'S ORGANIZ ATION 01/17/2021 [facility] DATE CREATED AUTHOR AUTHOR'S ORGANIZ ATION 07/19/2021 [facility] DATE CREATED AUTHOR AUTHOR'S ORGANIZ ATION 02/22/2022 [facility] DATE CREATED AUTHOR AUTHOR'S ORGANIZ ATION 03/17/2023 [facility] DATE CREATED AUTHOR AUTHOR'S ORGANIZ ATION 08/02/2023 [facility] Source Comments (unrecognize d section and content) In the event this informatio n is protected by the Federal Confidentiality of Alcohol and Drug Abuse Patient Records regulations: The Federal rules restrict any use of the information to criminally investigate or prosecute any alcohol or drug abuse patient.[facility] the event this information is protected by the Federal Confidentiality of Alcohol and Drug Abuse Patient Records regulations: The Federal rules restrict any use of the information to criminally investigate or prosecute any alcohol or drug abuse patient.[facility] the event this information is protected by the Federal Confidentiality of Alcohol and Drug Abuse Patient Records regulations: The Federal rules restrict any use of the information to criminally investigate or prosecute any alcohol or drug abuse patient.[facility] the event this information is protected by the Federal Confidentiality of Alcohol and Drug Abuse Patient Records regulations: The Federal rules restrict any use of the information to criminally investigate or prosecute any alcohol or drug abuse patient.[facility] CenterIn the event this information is protected by the Federal Confidentiality of Alcohol and Drug Abuse Patient Records regulations: The Federal rules restrict any use of the information to criminally investigate or prosecute any alcohol or drug abuse patient.[facility] CenterIn the event this information is protected by the Federal Confidentiality of Alcohol and Drug Abuse Patient Records regulations: The Federal rules restrict any use of the information to criminally investigate or prosecute any alcohol or drug abuse patient.[facility] CenterIn the event this information is protected by the Federal Confidentiality of Alcohol and Drug Abuse Patient Records regulations: The Federal rules restrict any use of the information to criminally investigate or prosecute any alcohol or drug abuse patient.[facility] CenterIn the event this information is protected by the Federal Confidentiality of Alcohol and Drug Abuse Patient Records regulations: The Federal rules restrict any use of the information to criminally investigate or prosecute any alcohol or drug abuse patient.[facility] CenterIn the event this information is protected by the Federal Confidentiality of Alcohol and Drug Abuse Patient Records regulations: The Federal rules restrict any use of the information to criminally investigate or prosecute any alcohol or drug abuse patient.[facility] CenterIn the event this information is protected by the Federal Confidentiality of Alcohol and Drug Abuse Patient Records regulations: The Federal rules restrict any use of the information to criminally investigate or prosecute any alcohol or drug abuse patient.[facility] CenterIn the event this information is protected by the Federal Confidentiality of Alcohol and Drug Abuse Patient Records regulations: The Federal rules restrict any use of the information to criminally investigate or prosecute any alcohol or drug abuse patient.[facility] CenterIn the event this information is protected by the Federal Confidentiality of Alcohol and Drug Abuse Patient Records regulations: The Federal rules restrict any use of the information to criminally investigate or prosecute any alcohol or drug abuse patient.[facility] CenterIn the event this information is protected by the Federal Confidentiality of Alcohol and Drug Abuse Patient Records regulations: The Federal rules restrict any use of the information to criminally investigate or prosecute any alcohol or drug abuse patient.[facility] CenterIn the event this information is protected by the Federal Confidentiality of Alcohol and Drug Abuse Patient Records regulations: The Federal rules restrict any use of the information to criminally investigate or prosecute any alcohol or drug abuse patient.[facility] CenterIn the event this information is protected by the Federal Confidentiality of Alcohol and Drug Abuse Patient Records regulations: The Federal rules restrict any use of the information to criminally investigate or prosecute any alcohol or drug abuse patient.[facility] CenterIn the event this information is protected by the Federal Confidentiality of Alcohol and Drug Abuse Patient Records regulations: The Federal rules restrict any use of the information to criminally investigate or prosecute any alcohol or drug abuse patient.[facility] CenterIn the event this information is protected by the Federal Confidentiality of Alcohol and Drug Abuse Patient Records regulations: The Federal rules restrict any use of the information to criminally investigate or prosecute any alcohol or drug abuse patient.[facility] CenterIn the event this information is protected by the Federal Confidentiality of Alcohol and Drug Abuse Patient Records regulations: The Federal rules restrict any use of the information to criminally investigate or prosecute any alcohol or drug abuse patient.[facility] CenterIn the event this information is protected by the Federal Confidentiality of Alcohol and Drug Abuse Patient Records regulations: The Federal rules restrict any use of the information to criminally investigate or prosecute any alcohol or drug abuse patient.[facility] CenterIn the event this information is protected by the Federal Confidentiality of Alcohol and Drug Abuse Patient Records regulations: The Federal rules restrict any use of the information to criminally investigate or prosecute any alcohol or drug abuse patient.[facility] CenterIn the event this information is protected by the Federal Confidentiality of Alcohol and Drug Abuse Patient Records regulations: The Federal rules restrict any use of the information to criminally investigate or prosecute any alcohol or drug abuse patient.[facility] CenterIn the event this information is protected by the Federal Confidentiality of Alcohol and Drug Abuse Patient Records regulations: The Federal rules restrict any use of the information to criminally investigate or prosecute any alcohol or drug abuse patient.[facility] CenterIn the event this information is protected by the Federal Confidentiality of Alcohol and Drug Abuse Patient Records regulations: The Federal rules restrict any use of the information to criminally investigate or prosecute any alcohol or drug abuse patient.[facility] CenterIn the event this information is protected by the Federal Confidentiality of Alcohol and Drug Abuse Patient Records regulations: The Federal rules restrict any use of the information to criminally investigate or prosecute any alcohol or drug abuse patient.[facility] CenterIn the event this information is protected by the Federal Confidentiality of Alcohol and Drug Abuse Patient Records regulations: The Federal rules restrict any use of the information to criminally investigate or prosecute any alcohol or drug abuse patient.[facility] CenterIn the event this information is protected by the Federal Confidentiality of Alcohol and Drug Abuse Patient Records regulations: The Federal rules restrict any use of the information to criminally investigate or prosecute any alcohol or drug abuse patient.[facility] CenterIn the event this information is protected by the Federal Confidentiality of Alcohol and Drug Abuse Patient Records regulations: The Federal rules restrict any use of the information to criminally investigate or prosecute any alcohol or drug abuse patient.[facility] CenterIn the event this information is protected by the Federal Confidentiality of Alcohol and Drug Abuse Patient Records regulations: The Federal rules restrict any use of the information to criminally investigate or prosecute any alcohol or drug abuse patient.[facility] CenterIn the event this information is protected by the Federal Confidentiality of Alcohol and Drug Abuse Patient Records regulations: The Federal rules restrict any use of the information to criminally investigate or prosecute any alcohol or drug abuse patient.[facility] CenterIn the event this information is protected by the Federal Confidentiality of Alcohol and Drug Abuse Patient Records regulations: The Federal rules restrict any use of the information to criminally investigate or prosecute any alcohol or drug abuse patient.[facility] CenterIn the event this information is protected by the Federal Confidentiality of Alcohol and Drug Abuse Patient Records regulations: The Federal rules restrict any use of the information to criminally investigate or prosecute any alcohol or drug abuse patient.[facility] CenterIn the event this information is protected by the Federal Confidentiality of Alcohol and Drug Abuse Patient Records regulations: The Federal rules restrict any use of the information to criminally investigate or prosecute any alcohol or drug abuse patient.[facility] CenterIn the event this information is protected by the Federal Confidentiality of Alcohol and Drug Abuse Patient Records regulations: The Federal rules restrict any use of the information to criminally investigate or prosecute any alcohol or drug abuse patient.[facility] CenterIn the event this information is protected by the Federal Confidentiality of Alcohol and Drug Abuse Patient Records regulations: The Federal rules restrict any use of the information to criminally investigate or prosecute any alcohol or drug abuse patient.[facility] CenterIn the event this information is protected by the Federal Confidentiality of Alcohol and Drug Abuse Patient Records regulations: The Federal rules restrict any use of the information to criminally investigate or prosecute any alcohol or drug abuse patient.[facility] CenterIn the event this information is protected by the Federal Confidentiality of Alcohol and Drug Abuse Patient Records regulations: The Federal rules restrict any use of the information to criminally investigate or prosecute any alcohol or drug abuse patient.[facility] CenterIn the event this information is protected by the Federal Confidentiality of Alcohol and Drug Abuse Patient Records regulations: The Federal rules restrict any use of the information to criminally investigate or prosecute any alcohol or drug abuse patient.[facility] CenterIn the event this information is protected by the Federal Confidentiality of Alcohol and Drug Abuse Patient Records regulations: The Federal rules restrict any use of the information to criminally investigate or prosecute any alcohol or drug abuse patient.[facility] CenterIn the event this information is protected by the Federal Confidentiality of Alcohol and Drug Abuse Patient Records regulations: The Federal rules restrict any use of the information to criminally investigate or prosecute any alcohol or drug abuse patient.[facility] CenterIn the event this information is protected by the Federal Confidentiality of Alcohol and Drug Abuse Patient Records regulations: The Federal rules restrict any use of the information to criminally investigate or prosecute any alcohol or drug abuse patient.[facility] CenterIn the event this information is protected by the Federal Confidentiality of Alcohol and Drug Abuse Patient Records regulations: The Federal rules restrict any use of the information to criminally investigate or prosecute any alcohol or drug abuse patient.[facility] CenterIn the event this information is protected by the Federal Confidentiality of Alcohol and Drug Abuse Patient Records regulations: The Federal rules restrict any use of the information to criminally investigate or prosecute any alcohol or drug abuse patient.[facility] CenterIn the event this information is protected by the Federal Confidentiality of Alcohol and Drug Abuse Patient Records regulations: The Federal rules restrict any use of the information to criminally investigate or prosecute any alcohol or drug abuse patient.[facility] CenterIn the event this information is protected by the Federal Confidentiality of Alcohol and Drug Abuse Patient Records regulations: The Federal rules restrict any use of the information to criminally investigate or prosecute any alcohol or drug abuse patient.[facility] CenterIn the event this information is protected by the Federal Confidentiality of Alcohol and Drug Abuse Patient Records regulations: The Federal rules restrict any use of the information to criminally investigate or prosecute any alcohol or drug abuse patient.[facility] CenterIn the event this information is protected by the Federal Confidentiality of Alcohol and Drug Abuse Patient Records regulations: The Federal rules restrict any use of the information to criminally investigate or prosecute any alcohol or drug abuse patient.[facility] CenterIn the event this information is protected by the Federal Confidentiality of Alcohol and Drug Abuse Patient Records regulations: The Federal rules restrict any use of the information to criminally investigate or prosecute any alcohol or drug abuse patient.[facility] CenterIn the event this information is protected by the Federal Confidentiality of Alcohol and Drug Abuse Patient Records regulations: The Federal rules restrict any use of the information to criminally investigate or prosecute any alcohol or drug abuse patient.[facility] CenterIn the event this information is protected by the Federal Confidentiality of Alcohol and Drug Abuse Patient Records regulations: The Federal rules restrict any use of the information to criminally investigate or prosecute any alcohol or drug abuse patient.[facility] CenterIn the event this information is protected by the Federal Confidentiality of Alcohol and Drug Abuse Patient Records regulations: The Federal rules restrict any use of the information to criminally investigate or prosecute any alcohol or drug abuse patient.[facility] CenterIn the event this information is protected by the Federal Confidentiality of Alcohol and Drug Abuse Patient Records regulations: The Federal rules restrict any use of the information to criminally investigate or prosecute any alcohol or drug abuse patient.[facility] CenterIn the event this information is protected by the Federal Confidentiality of Alcohol and Drug Abuse Patient Records regulations: The Federal rules restrict any use of the information to criminally investigate or prosecute any alcohol or drug abuse patient.[facility] CenterIn the event this information is protected by the Federal Confidentiality of Alcohol and Drug Abuse Patient Records regulations: The Federal rules restrict any use of the information to criminally investigate or prosecute any alcohol or drug abuse patient.[facility] CenterIn the event this information is protected by the Federal Confidentiality of Alcohol and Drug Abuse Patient Records regulations: The Federal rules restrict any use of the information to criminally investigate or prosecute any alcohol or drug abuse patient.[facility] CenterIn the event this information is protected by the Federal Confidentiality of Alcohol and Drug Abuse Patient Records regulations: The Federal rules restrict any use of the information to criminally investigate or prosecute any alcohol or drug abuse patient.[facility] CenterIn the event this information is protected by the Federal Confidentiality of Alcohol and Drug Abuse Patient Records regulations: The Federal rules restrict any use of the information to criminally investigate or prosecute any alcohol or drug abuse patient.[facility] CenterIn the event this information is protected by the Federal Confidentiality of Alcohol and Drug Abuse Patient Records regulations: The Federal rules restrict any use of the information to criminally investigate or prosecute any alcohol or drug abuse patient.[facility] CenterIn the event this information is protected by the Federal Confidentiality of Alcohol and Drug Abuse Patient Records regulations: The Federal rules restrict any use of the information to criminally investigate or prosecute any alcohol or drug abuse patient.[facility] CenterIn the event this information is protected by the Federal Confidentiality of Alcohol and Drug Abuse Patient Records regulations: The Federal rules restrict any use of the information to criminally investigate or prosecute any alcohol or drug abuse patient.[facility] CenterIn the event this information is protected by the Federal Confidentiality of Alcohol and Drug Abuse Patient Records regulations: The Federal rules restrict any use of the information to criminally investigate or prosecute any alcohol or drug abuse patient.[facility] CenterIn the event this information is protected by the Federal Confidentiality of Alcohol and Drug Abuse Patient Records regulations: The Federal rules restrict any use of the information to criminally investigate or prosecute any alcohol or drug abuse patient.[facility] CenterIn the event this information is protected by the Federal Confidentiality of Alcohol and Drug Abuse Patient Records regulations: The Federal rules restrict any use of the information to criminally investigate or prosecute any alcohol or drug abuse patient.[facility] CenterIn the event this information is protected by the Federal Confidentiality of Alcohol and Drug Abuse Patient Records regulations: The Federal rules restrict any use of the information to criminally investigate or prosecute any alcohol or drug abuse patient.[facility] CenterIn the event this information is protected by the Federal Confidentiality of Alcohol and Drug Abuse Patient Records regulations: The Federal rules restrict any use of the information to criminally investigate or prosecute any alcohol or drug abuse patient.[facility] CenterIn the event this information is protected by the Federal Confidentiality of Alcohol and Drug Abuse Patient Records regulations: The Federal rules restrict any use of the information to criminally investigate or prosecute any alcohol or drug abuse patient.[facility] CenterIn the event this information is protected by the Federal Confidentiality of Alcohol and Drug Abuse Patient Records regulations: The Federal rules restrict any use of the information to criminally investigate or prosecute any alcohol or drug abuse patient.[facility] CenterIn the event this information is protected by the Federal Confidentiality of Alcohol and Drug Abuse Patient Records regulations: The Federal rules restrict any use of the information to criminally investigate or prosecute any alcohol or drug abuse patient.[facility] CenterIn the event this information is protected by the Federal Confidentiality of Alcohol and Drug Abuse Patient Records regulations: The Federal rules restrict any use of the information to criminally investigate or prosecute any alcohol or drug abuse patient.[facility] CenterIn the event this information is protected by the Federal Confidentiality of Alcohol and Drug Abuse Patient Records regulations: The Federal rules restrict any use of the information to criminally investigate or prosecute any alcohol or drug abuse patient.[facility] CenterIn the event this information is protected by the Federal Confidentiality of Alcohol and Drug Abuse Patient Records regulations: The Federal rules restrict any use of the information to criminally investigate or prosecute any alcohol or drug abuse patient.[facility] CenterIn the event this information is protected by the Federal Confidentiality of Alcohol and Drug Abuse Patient Records regulations: The Federal rules restrict any use of the information to criminally investigate or prosecute any alcohol or drug abuse patient.[facility] CenterIn the event this information is protected by the Federal Confidentiality of Alcohol and Drug Abuse Patient Records regulations: The Federal rules restrict any use of the information to criminally investigate or prosecute any alcohol or drug abuse patient.[facility] CenterIn the event this information is protected by the Federal Confidentiality of Alcohol and Drug Abuse Patient Records regulations: The Federal rules restrict any use of the information to criminally investigate or prosecute any alcohol or drug abuse patient.[facility] CenterIn the event this information is protected by the Federal Confidentiality of Alcohol and Drug Abuse Patient Records regulations: The Federal rules restrict any use of the information to criminally investigate or prosecute any alcohol or drug abuse patient.[facility] CenterIn the event this information is protected by the Federal Confidentiality of Alcohol and Drug Abuse Patient Records regulations: The Federal rules restrict any use of the information to criminally investigate or prosecute any alcohol or drug abuse patient.[facility] CenterIn the event this information is protected by the Federal Confidentiality of Alcohol and Drug Abuse Patient Records regulations: The Federal rules restrict any use of the information to criminally investigate or prosecute any alcohol or drug abuse patient.[facility] CenterIn the event this information is protected by the Federal Confidentiality of Alcohol and Drug Abuse Patient Records regulations: The Federal rules restrict any use of the information to criminally investigate or prosecute any alcohol or drug abuse patient.[facility] CenterIn the event this information is protected by the Federal Confidentiality of Alcohol and Drug Abuse Patient Records regulations: The Federal rules restrict any use of the information to criminally investigate or prosecute any alcohol or drug abuse patient.[facility] CenterIn the event this information is protected by the Federal Confidentiality of Alcohol and Drug Abuse Patient Records regulations: The Federal rules restrict any use of the information to criminally investigate or prosecute any alcohol or drug abuse patient.[facility] CenterIn the event this information is protected by the Federal Confidentiality of Alcohol and Drug Abuse Patient Records regulations: The Federal rules restrict any use of the information to criminally investigate or prosecute any alcohol or drug abuse patient.[facility] CenterIn the event this information is protected by the Federal Confidentiality of Alcohol and Drug Abuse Patient Records regulations: The Federal rules restrict any use of the information to criminally investigate or prosecute any alcohol or drug abuse patient.[facility] CenterIn the event this information is protected by the Federal Confidentiality of Alcohol and Drug Abuse Patient Records regulations: The Federal rules restrict any use of the information to criminally investigate or prosecute any alcohol or drug abuse patient.[facility] CenterIn the event this information is protected by the Federal Confidentiality of Alcohol and Drug Abuse Patient Records regulations: The Federal rules restrict any use of the information to criminally investigate or prosecute any alcohol or drug abuse patient.[facility] CenterIn the event this information is protected by the Federal Confidentiality of Alcohol and Drug Abuse Patient Records regulations: The Federal rules restrict any use of the information to criminally investigate or prosecute any alcohol or drug abuse patient.[facility] CenterIn the event this information is protected by the Federal Confidentiality of Alcohol and Drug Abuse Patient Records regulations: The Federal rules restrict any use of the information to criminally investigate or prosecute any alcohol or drug abuse patient.[facility] CenterIn the event this information is protected by the Federal Confidentiality of Alcohol and Drug Abuse Patient Records regulations: The Federal rules restrict any use of the information to criminally investigate or prosecute any alcohol or drug abuse patient.[facility] CenterIn the event this information is protected by the Federal Confidentiality of Alcohol and Drug Abuse Patient Records regulations: The Federal rules restrict any use of the information to criminally investigate or prosecute any alcohol or drug abuse patient.[facility] CenterIn the event this information is protected by the Federal Confidentiality of Alcohol and Drug Abuse Patient Records regulations: The Federal rules restrict any use of the information to criminally investigate or prosecute any alcohol or drug abuse patient.[facility] Reason for Visit (unrecogniz ed section and content) Reason Comments Consult Reason Comments Results Reason Comments Results Office Note Reason Onset Date Comments [facility] Outreach 12/04/2021 CD M Telephonic Reason Comments [facility] update Reason Onset Date Comments [facility] Outreach 12/19/2021 Te lephonic Follow Up Reason Comments [facility] Tenders re faxing form to be signed by the doctor Reason Comments New Pain Reason Comments Opened In Error Reason Comments Recheck 1 month follow up Reason Onset Date Comments [facility] Outreach 01/03/2022 Te lephonic Follow Up Reason Comments Procedure Follow Up EGD and colonoscopy completed on 12/18/2021 Reason Comments Follow Up Reason Onset Date Comments [facility] Outreach 01/16/2022 Te lephonic Follow Up Reason Onset Date Comments [facility] Outreach 01/17/2022 Te lephonic Follow Up Reason Onset Date Comments [facility] Outreach 02/01/2022 Te lephonic Follow Up Reason Onset Date Comments [facility] Outreach 02/05/2022 Te lephonic Follow Up Reason Comments Breathing Problem Reason Comments Patient Update Reason Comments Appointment Reason Onset Date Comments Transition Of Care 02/17/2022 TCM Hospital Discharge 02/16/22 Initial Outreach Reason Onset Date Comments [facility] Monitoring Outreach 02/19/2022 Te lephonic Follow Up Reason Comments Provide to Follow Order for PT/OT/SN Reason Comments OT plan of care Reason Comments Orders Reason Onset Date Comments Refill Request 02/27/2022 Reason Onset Date Comments [facility] Monitoring Outreach 02/27/2022 Te lephonic Follow Up Reason Onset Date Comments community monitoring outreach 02/28/2022 cd m telephonic outreach Reason Comments ER F/U 02/23-02/26 COPD Reason Onset Date Comments [facility] Monitoring Outreach 03/14/2022 Te lephonic Follow Up Reason Onset Date Comments Community Monitoring Outreach 03/15/2022 Te lephonic Follow Up Reason Comments Hospital Follow Up Reason Comments Patient Update FYI-No Action Needed Reason Onset Date Comments [facility] Monitoring Outreach 03/28/2022 Te lephonic Follow Up Reason Onset Date Comments Refill Request 04/05/2022 Reason Onset Date Comments Community Monitoring Outreach 04/12/2022 Te leph[place] Follow Up Reason Comments Shortness of Breath Reason Onset Date Comments Community Monitoring Outreach 04/26/2022 CD M Follow Up Reason Onset Date Comments [facility] Monitoring Outreach 05/09/2022 CD M Telephonic Reason Onset Date Comments [facility] Monitoring Outreach 05/24/2022 CD M Telephonic Reason Onset Date Comments Community Monitoring Outreach 05/25/2022 CD M Telephonic Reason Onset Date Comments [facility] Monitoring Outreach 06/07/2022 CD M Telephonic Reason Comments COPD Reason Onset Date Comments [facility] Monitoring Outreach 06/22/2022 CD M Telephonic Reason Comments Palliative Care Reason Comments HH PT POC Reason Comments Delay of Care Social Work Reason Onset Date Comments [facility] Monitoring Outreach 07/05/2022 CD M Telephonic Reason Comments Follow Up Reason Onset Date Comments Community Monitoring Outreach 07/06/2022 CD M Reason Onset Date Comments Community Monitoring Outreach 07/12/2022 CD M Follow Up Reason Comments letter to be mailed to post office Reason Comments Home Health Update Reason Comments COPD Reason Onset Date Comments [facility] Monitoring Outreach 08/01/2022 CD M Follow Up Reason Onset Date Comments Community Monitoring Outreach 08/02/2022 CD M Follow Up Reason Onset Date Comments Refill Request 08/02/2022 Reason Onset Date Comments [facility] Monitoring Outreach 08/30/2022 CD M Reason Comments Follow Up Reason Onset Date Comments Community Monitoring Outreach 09/18/2022 CD M Reason Onset Date Comments Community Monitoring Outreach 09/19/2022 CD M Reason Comments Orders Reason Comments Neck Pain Reason Comments Forms Reason Onset Date Comments community monitoring outreach 10/10/2022 CD M pt call response Reason Comments Medication Question [facility] [place] Reason Onset Date Comments Refill Request 10/15/2022 Reason Onset Date Comments Refill Request 10/08/2022 Reason Comments Medication Request Reason Comments Order for electric wheelchair Reason Comments Medicatin Question Reason Comments Letter Reason Comments Patient Update Patient Question Care Teams (unrecognized sec tion and content) Sheeter Machine Operator Relationship Specialty Start Date End Date Heladio Madsen MD [address] [place], [place] [id number] PCP - General Family Practice 06/12/18 Dennis Kemp DO Primary Staff Physician Cardiology 11/11/18 Argenis Jewell, formula bottlerBorder Patrol Agent 04/25/21 Shayla 01/19/16 Sheeter Machine Operator Relationship Specialty Start Date End Date Heladio Madsen MD [address] [place], [place] [id number] PCP - General Family Practice 06/12/18 Dennis Kemp DO Primary Staff Physician Cardiology 11/11/18 Argenis Jewell, formula bottlerBorder Patrol Agent 04/25/21 Shayla 01/19/16 Sheeter Machine Operator Relationship Specialty Start Date End Date Heladio Madsen MD [address] [place], [place] [id number] PCP - General Family Practice 06/12/18 Dennis Kemp DO Primary Staff Physician Cardiology 11/11/18 Argenis Jewell, formula bottlerBorder Patrol Agent 04/25/21 Shayla 01/19/16 Sheeter Machine Operator Relationship Specialty Start Date End Date Heladio Madsen MD [address] [place], [place] [id number] PCP - General Family Practice 06/12/18 Dennis Kemp DO Primary Staff Physician Cardiology 11/11/18 Argenis Jewell formula bottlerBorder Patrol Agent 04/25/21 Shayla 01/19/16 Sheeter Machine Operator Relationship Specialty Start Date End Date Heladio Madsen MD [address] [place], [place] [id number] PCP - General Family Practice 06/12/18 Dennis Kemp DO Primary Staff Physician Cardiology 11/11/18 Argenis Jewell formula bottlerBorder Patrol Agent 04/25/21 Shayla 01/19/16 Sheeter Machine Operator Relationship Specialty Start Date End Date Heladio Madsen MD [address] [place], [place] [id number] PCP - General Family Practice 06/12/18 Argenis Jewell, RN [address] [place] [address] Border Patrol Agent 04/25/21 [place] [address] [place] [address] Dcs Engineer Cardiology 12/25/21 Shayla 01/19/16 Sheeter Machine Operator Relationship Specialty Start Date End Date Heladio Madsen MD [address] [place], [place] [id number] PCP - General Family Practice 06/12/18 Argenis Jewell RN [address] [place] [address] Border Patrol Agent 04/25/21 [place] [address] [place] [address] Dcs Engineer Cardiology 12/25/21 Shayla 01/19/16 Sheeter Machine Operator Relationship Specialty Start Date End Date Heladio Madsen MD [address] [place], [place] [address]101 PCP - General Family Practice 06/12/18 Argenis Jewell RN [address] [place] [address] Border Patrol Agent 04/25/21 [place] [address] [place] [address] Dcs Engineer Cardiology 12/25/21 Shayla 01/19/16 Sheeter Machine Operator Relationship Specialty Start Date End Date Heladio Madsen MD [address] [place] [address] PCP - General Family Practice 06/12/18 Argenis Jewell RN [address] [place] [address] Border Patrol Agent 04/25/21 [place] [address] [place] [address] Dcs Engineer Cardiology 12/25/21 Shayla 01/19/16 Sheeter Machine Operator Relationship Specialty Start Date End Date Heladio Madsen MD [address] [place] [address] PCP - General Family Practice 06/12/18 Argenis Jewell RN [address] [place] [address] Border Patrol Agent 04/25/21 [place] [address] [place] [address] Dcs Engineer Cardiology 12/25/21 Shayla 01/19/16 Sheeter Machine Operator Relationship Specialty Start Date End Date Heladio Madsen MD [address] [place] [address] PCP - General Family Practice 06/12/18 Argenis Jewell RN [address] [place] [address] Border Patrol Agent 04/25/21 Wiley Cardona MD [address] [place] [address] Dcs Engineer Cardiology 12/25/21 Shayla 01/19/16 Sheeter Machine Operator Relationship Specialty Start Date End Date Heladio Madsen MD [address] [place] [address] PCP - General Family Practice 06/12/18 Argenis Jewell RN [address] [place] [address] Border Patrol Agent 04/25/21 [place] [address] [place] [address] Dcs Engineer Cardiology 12/25/21 Shayla 01/19/16 Sheeter Machine Operator Relationship Specialty Start Date End Date Heladio Madsen MD [address] [place] [address] PCP - General Family Practice 06/12/18 Argenis Jewell RN [address] [place] [address] Border Patrol Agent 04/25/21 [place] [address] [place] [address] Dcs Engineer Cardiology 12/25/21 [facility] Office [address] [address] Pain Management Anesthesiology 01/17/22 Shayla 01/19/16 Sheeter Machine Operator Relationship Specialty Start Date End Date Heladio Madsen MD [address] [place] [address] PCP - General Family Practice 06/12/18 Argenis Jewell RN [address] [place] [address] Border Patrol Agent 04/25/21 [place] [address] [place] [address] Dcs Engineer Cardiology 12/25/21 [facility] Office [address] [address] Pain Management Anesthesiology 01/17/22 Shayla 01/19/16 Sheeter Machine Operator Relationship Specialty Start Date End Date Heladio Madsen MD [address] [place] [address] PCP - General Family Practice 06/12/18 Argenis Jewell RN [address] [place] [address] Border Patrol Agent 04/25/21 [place] [address] [place] [address] Dcs Engineer Cardiology 12/25/21 [facility] Office [address] [address] Pain Management Anesthesiology 01/17/22 Shayla 01/19/16 Sheeter Machine Operator Relationship Specialty Start Date End Date Heladio Madsen MD [address] [place] [address] PCP - General Family Practice 06/12/18 Argenis Jewell RN [address] [place], [place] [id number] Border Patrol Agent 04/25/21 [place] [address] [place] [address] Dcs Engineer Cardiology 12/25/21 [facility] Office Building [address] [place] [address] Pain Management Anesthesiology 01/17/22 Shayla 01/19/16 Sheeter Machine Operator Relationship Specialty Start Date End Date Heladio Madsen MD [address] [place] [address] PCP - General Family Practice 06/12/18 Argenis Jewell RN [address] [place], [place] [id number] Border Patrol Agent 04/25/21 [place] [address] [place] [address] Dcs Engineer Cardiology 12/25/21 [facility] Office Building [address] [place] [address] Pain Management Anesthesiology 01/17/22 Shayla 01/19/16 Sheeter Machine Operator Relationship Specialty Start Date End Date Heladio Madsen MD [address] [place], [place] [id number] PCP - General Family Practice 06/12/18 Argenis Jewell RN [address] [place] [address] Border Patrol Agent 04/25/21 [place] [address] [place] [address] Dcs Engineer Cardiology 12/25/21 [facility] Office Building [address] [place] [address] Pain Management Anesthesiology 01/17/22 Shayla 01/19/16 Sheeter Machine Operator Relationship Specialty Start Date End Date Heladio Madsen MD [address] [place] [address] PCP - General Family Practice 06/12/18 Argenis Jewell RN [address] [place], [place] [id number] Border Patrol Agent 04/25/21 [place] [address] [place] [address] Dcs Engineer Cardiology 12/25/21 [facility] Office [address] [address] Pain Management Anesthesiology 01/17/22 Shayla 01/19/16 Sheeter Machine Operator Relationship Specialty Start Date End Date Heladio Madsen MD [address] [place] [address] PCP - General Family Practice 06/12/18 Argenis Jewell RN [address] [place] [address] Border Patrol Agent 04/25/21 [place] [address] [place] [address] Dcs Engineer Cardiology 12/25/21 [facility] Office [address] [address] Pain Management Anesthesiology 01/17/22 Shayla 01/19/16 Sheeter Machine Operator Relationship Specialty Start Date End Date Heladio Madsen MD [address] [place] [address] PCP - General Family Practice 06/12/18 Argenis Jewell, RN [address] [place], [place] [id number] Border Patrol Agent 04/25/21 [place] [address] [place] [address] Dcs Engineer Cardiology 12/25/21 [facility] Office Building [address] [place] [address] Pain Management Anesthesiology 01/17/22 Shayla 01/19/16 Sheeter Machine Operator Relationship Specialty Start Date End Date Heladio Madsen MD [address] [place] [address] PCP - General Family Practice 06/12/18 Argenis Jewell RN [address] [place], [place] [id number] Border Patrol Agent 04/25/21 [place] [address] [place] [address] Dcs Engineer Cardiology 12/25/21 [facility] Office Building [address] [place] [address] Pain Management Anesthesiology 01/17/22 Shayla 01/19/16 Sheeter Machine Operator Relationship Specialty Start Date End Date Heladio Madsen MD [address] [place] [address] PCP - General Family Practice 06/12/18 Argenis Jewell RN [address] [place] [address] Border Patrol Agent 04/25/21 [place] [address] [place] [address] Dcs Engineer Cardiology 12/25/21 [facility] Office Building [address] [place] [address] Pain Management Anesthesiology 01/17/22 Shayla 01/19/16 Sheeter Machine Operator Relationship Specialty Start Date End Date Heladio Madsen MD [address] [place] [address] PCP - General Family Practice 06/12/18 Argenis Jewell RN [address] [place] [address] Border Patrol Agent 04/25/21 [place] [address] [place] [address] Dcs Engineer Cardiology 12/25/21 [facility] Office [address] [address] Pain Management Anesthesiology 01/17/22 Shayla 01/19/16 Sheeter Machine Operator Relationship Specialty Start Date End Date Heladio Madsen MD [address] [place] [address] PCP - General Family Practice 06/12/18 Argenis Jewell RN [address] [place] [address] Border Patrol Agent 04/25/21 [place] [address] [place] [address] Dcs Engineer Cardiology 12/25/21 [facility] Office [address] [address] Pain Management Anesthesiology 01/17/22 Shayla 01/19/16 Sheeter Machine Operator Relationship Specialty Start Date End Date Heladio Madsen MD [address] [place] [address] PCP - General Family Practice 06/12/18 Argenis Jewell RN [address] [place] [address] Border Patrol Agent 04/25/21 [place] [address] [place] [address] Dcs Engineer Cardiology 12/25/21 [facility] Office Building [address] [place] [address] Pain Management Anesthesiology 01/17/22 Shayla 01/19/16 Sheeter Machine Operator Relationship Specialty Start Date End Date Heladio Madsen MD [address] [place] [address] PCP - General Family Practice 06/12/18 Argenis Jewell RN [address] [place] [address] Border Patrol Agent 04/25/21 [place] [address] [place] [address] Dcs Engineer Cardiology 12/25/21 [facility] Office [address] [address] Pain Management Anesthesiology 01/17/22 Shayla 01/19/16 Sheeter Machine Operator Relationship Specialty Start Date End Date Heladio Madsen MD [address] [place] [address] PCP - General Family Practice 06/12/18 Argenis Jewell RN [address] [place] [address] Border Patrol Agent 04/25/21 [place] [address] [place] [address] Dcs Engineer Cardiology 12/25/21 [facility] Office [address] [address] Pain Management Anesthesiology 01/17/22 Shayla 01/19/16 Sheeter Machine Operator Relationship Specialty Start Date End Date Heladio Madsen MD [address] [place] [address] PCP - General Family Medicine 06/12/18 Argenis Jewell, RN [address] [place] [address] Border Patrol Agent 04/25/21 [place] [address] [place] [address] Dcs Engineer Cardiology 12/25/21 [facility] Office [address] [address] Pain Management Anesthesiology 01/17/22 Shayla 01/19/16 Sheeter Machine Operator Relationship Specialty Start Date End Date Heladio Madsen MD [address] [place] [address] PCP - General Family Medicine 06/12/18 Argenis Jewell RN [address] [place] [address] Border Patrol Agent 04/25/21 [place] [address] [place] [address] Dcs Engineer Cardiology 12/25/21 [facility] Office Building [address] [place] [address] Pain Management Anesthesiology 01/17/22 Shayla 01/19/16 Sheeter Machine Operator Relationship Specialty Start Date End Date Heladio Madsen MD [address] [place], [place] 901891 PCP - General Family Medicine 06/12/18 Argenis Jewell RN [address] [place] [address] Border Patrol Agent 04/25/21 [place] [address] [place] [address] Dcs Engineer Cardiology 12/25/21 [facility] Office Building [address] [place] [address] Pain Management Anesthesiology 01/17/22 Shayla 01/19/16 Sheeter Machine Operator Relationship Specialty Start Date End Date Heladio Madsen MD [address] [place] [address] PCP - General Family Medicine 06/12/18 Argenis Jewell RN [address] [place] [address] Border Patrol Agent 04/25/21 [place] [address] [place] [address] Dcs Engineer Cardiology 12/25/21 [facility] Office [address] [address] Pain Management Anesthesiology 01/17/22 Shayla 01/19/16 Sheeter Machine Operator Relationship Specialty Start Date End Date Heladio Madsen MD [address] [place] [address] PCP - General Family Medicine 06/12/18 Argenis Jewell RN [address] [place] [address] Border Patrol Agent 04/25/21 [place] [address] [place] [address] Dcs Engineer Cardiology 12/25/21 [facility] Office Building [address] [place] [address] Pain Management Anesthesiology 01/17/22 Shayla 01/19/16 Sheeter Machine Operator Relationship Specialty Start Date End Date Heladio Madsen MD [address] [place] [address] PCP - General Family Medicine 06/12/18 Argenis Jewell RN [address] [place] [address] Border Patrol Agent 04/25/21 [place] [address] [place] [address] Dcs Engineer Cardiology 12/25/21 [facility] Office [address] [address] Pain Management Anesthesiology 01/17/22 Shayla 01/19/16 Sheeter Machine Operator Relationship Specialty Start Date End Date Heladio Madsen MD [address] [place] [address] PCP - General Family Medicine 06/12/18 Argenis Jewell RN [address] [place] [address] Border Patrol Agent 04/25/21 [place] [address] [place] [address] Dcs Engineer Cardiology 12/25/21 [facility] Office [address] [address] Pain Management Anesthesiology 01/17/22 Shayla 01/19/16 Sheeter Machine Operator Relationship Specialty Start Date End Date Heladio Madsen MD [address] [place] [address] PCP - General Family Medicine 06/12/18 Argenis Jewell RN [address] [place] [address] Border Patrol Agent 04/25/21 [place] [address] [place] [address] Dcs Engineer Cardiology 12/25/21 [facility] Office [address] [address] Pain Management Anesthesiology 01/17/22 Shayla 01/19/16 Sheeter Machine Operator Relationship Specialty Start Date End Date Heladio Madsen MD [address] [place] [address] PCP - General Family Medicine 06/12/18 Argenis Jewell RN [address] [place] [address] Border Patrol Agent 04/25/21 [place] [address] [place] [address] Dcs Engineer Cardiology 12/25/21 [facility] Office [address] [address] Pain Management Anesthesiology 01/17/22 Shayla 01/19/16 Sheeter Machine Operator Relationship Specialty Start Date End Date Heladio Madsen MD [address] [place] [address] PCP - General Family Medicine 06/12/18 Argenis Jewell RN [address] [place] [address] Border Patrol Agent 04/25/21 [place] [address] [place] [address] Dcs Engineer Cardiology 12/25/21 [facility] Office [address] [address] Pain Management Anesthesiology 01/17/22 Shayla 01/19/16 Sheeter Machine Operator Relationship Specialty Start Date End Date Heladio Madsen MD [address] [place] [address] PCP - General Family Medicine 06/12/18 Argenis Jewell RN [address] [place] [address] Border Patrol Agent 04/25/21 [place] [address] [place] [address] Dcs Engineer Cardiology 12/25/21 [facility] Office Building [address] [place] [address] Pain Management Anesthesiology 01/17/22 Shayla 01/19/16 Sheeter Machine Operator Relationship Specialty Start Date End Date Heladio Madsen MD [address] [place] [address] PCP - General Family Medicine 06/12/18 Argenis Jewell RN [address] [place] [address] Border Patrol Agent 04/25/21 [place] [address] [place] [address] Dcs Engineer Cardiology 12/25/21 [facility] Office Building [address] [place] [address] Pain Management Anesthesiology 01/17/22 Shayla 01/19/16 Sheeter Machine Operator Relationship Specialty Start Date End Date Heladio Madsen MD [address] [place] [address] PCP - General Family Medicine 06/12/18 Argenis Jewell RN [address] [place] [address] Border Patrol Agent 04/25/21 [place] [address] [place] [address] Dcs Engineer Cardiology 12/25/21 [facility] Office Building [address] [place] [address] Pain Management Anesthesiology 01/17/22 Shayla 01/19/16 Sheeter Machine Operator Relationship Specialty Start Date End Date Heladio Madsen MD [address] [place] [address] PCP - General Family Medicine 06/12/18 Argenis Jewell RN [address] [place] [address] Border Patrol Agent 04/25/21 [place] [address] [place] [address] Dcs Engineer Cardiology 12/25/21 [facility] Office [address] [address] Pain Management Anesthesiology 01/17/22 Shayla 01/19/16 Sheeter Machine Operator Relationship Specialty Start Date End Date Heladio Madsen MD [address] [place] [address] PCP - General Family Medicine 06/12/18 Argenis Jewell RN [address] [place], [place] [id number] Border Patrol Agent 04/25/21 [place] [address] [place] [address] Dcs Engineer Cardiology 12/25/21 [facility] Office [address] [address] Pain Management Anesthesiology 01/17/22 Shayla 01/19/16 Sheeter Machine Operator Relationship Specialty Start Date End Date Heladio Madsen MD [address] [place] [address] PCP - General Family Medicine 06/12/18 Argenis Jewell, RN [address] [place] [address] Border Patrol Agent 04/25/21 [place] [address] [place] [address] Dcs Engineer Cardiology 12/25/21 [facility] Office Building [address] [place] [address] Pain Management Anesthesiology 01/17/22 Shayla 01/19/16 Sheeter Machine Operator Relationship Specialty Start Date End Date Heladio Madsen MD [address] [place] [address] PCP - General Family Medicine 06/12/18 Argenis Jewell RN [address] [place], [place] 6265231 Border Patrol Agent 04/25/21 [place] [address] [place] [address] Dcs Engineer Cardiology 12/25/21 [facility] Office Building [address] [place] [address] Pain Management Anesthesiology 01/17/22 Shayla 01/19/16 Sheeter Machine Operator Relationship Specialty Start Date End Date Heladio Madsen MD [address] [place] [address] PCP - General Family Medicine 06/12/18 Argenis Jewell RN [address] [place] [address] Border Patrol Agent 04/25/2109/27 [place] [address] [place] [address] Dcs Engineer Cardiology 12/25/21 [facility] Office [address] [address] Pain Management Anesthesiology 01/17/22 Manjit Mcdonald, formula bottlerBorder Patrol Agent 09/28/22 Shayla 01/19/16 Sheeter Machine Operator Relationship Specialty Start Date End Date Heladio Madsen MD [address] [place] [address] PCP - General Family Medicine 06/12/18 [place] [address] [place] [address] Dcs Engineer Cardiology 12/25/21 [facility] Office [address] [address] Pain Management Anesthesiology 01/17/22 Manjit Mcdonald, formula bottlerBorder Patrol Agent 09/28/22 Shayla 01/19/16 Sheeter Machine Operator Relationship Specialty Start Date End Date Heladio Madsen MD [address] [place] [address] PCP - General Family Medicine 06/12/18 [place] [address] [place] [address] Dcs Engineer Cardiology 12/25/21 [facility] Office [address] [address] Pain Management Anesthesiology 01/17/22 Manjit Mcdonald, formula bottlerBorder Patrol Agent 09/28/22 Shayla 01/19/16 Sheeter Machine Operator Relationship Specialty Start Date End Date Heladio Madsen MD [address] [place] [address] PCP - General Family Medicine 06/12/18 [place] [address] [place] [address] Dcs Engineer Cardiology 12/25/21 [facility] Office [address] [address] Pain Management Anesthesiology 01/17/22 Manjit Mcdonald, formula bottlerBorder Patrol Agent 09/28/22 Shayla 01/19/16 Sheeter Machine Operator Relationship Specialty Start Date End Date Heladio Madsen MD [address] [place] [address] PCP - General Family Medicine 06/12/18 [place] [address] [place] [address] Dcs Engineer Cardiology 12/25/21 [facility] Office [address] [address] Pain Management Anesthesiology 01/17/22 Manjit Mcdonald, formula bottlerBorder Patrol Agent 09/28/22 Shayla 01/19/16 Sheeter Machine Operator Relationship Specialty Start Date End Date Heladio Madsen MD [address] [place] [address] PCP - General Family Medicine 06/12/18 [place] [address] [place] [address] Dcs Engineer Cardiology 12/25/21 [facility] Office [address] [address] Pain Management Anesthesiology 01/17/22 Manjit Mcdonald, formula bottlerBorder Patrol Agent 09/28/22 Shayla 01/19/16 Sheeter Machine Operator Relationship Specialty Start Date End Date Heladio Madsen MD [address] [place] [address] PCP - General Family Medicine 06/12/18 [place] [address] [place] [address] Dcs Engineer Cardiology 12/25/21 [facility] Office [address] [address] Pain Management Anesthesiology 01/17/22 Manjit Mcdonald, formula bottlerBorder Patrol Agent 09/28/22 Shayla 01/19/16 Sheeter Machine Operator Relationship Specialty Start Date End Date Heladio Madsen MD [address] [place] [address] PCP - General Family Medicine 06/12/18 [place] [address] [place] [address] Dcs Engineer Cardiology 12/25/21 [facility] Office [address] [address] Pain Management Anesthesiology 01/17/22 Manjit Mcdonald, formula bottlerBorder Patrol Agent 09/28/22 Shayla 01/19/16 Sheeter Machine Operator Relationship Specialty Start Date End Date Heladio Madsen MD [address] [place] [address] PCP - General Family Medicine 06/12/18 [place] [address] [place] [address] Dcs Engineer Cardiology 12/25/21 [facility] Office [address] [address] Pain Management Anesthesiology 01/17/22 Manjit Mcdonald, formula bottlerBorder Patrol Agent 09/28/22 Shayla 01/19/16 Sheeter Machine Operator Relationship Specialty Start Date End Date Heladio Madsen MD [address] [place] [address] PCP - General Family Medicine 06/12/18 [place] [address] [place] [address] Dcs Engineer Cardiology 12/25/21 [facility] Building [address] [place] [address] Pain Management Anesthesiology 01/17/22 Shayla 01/19/16 Sheeter Machine Operator Relationship Specialty Start Date End Date Heladio Madsen MD [address] [place] [address] PCP - General Family Medicine 06/12/18 [place] [address] [place], [place] [id number] Dcs Engineer Cardiology 12/25/21 [facility] Building [address] [place] [address] Pain Management Anesthesiology 01/17/22 Shayla 01/19/16 Sheeter Machine Operator Relationship Specialty Start Date End Date Heladio Madsen MD [address] [place] [address] PCP - General Family Medicine 10/26/22 Sheeter Machine Operator Relationship Specialty Start Date End Date Heladio Madsen MD [address] [place] [address] PCP - General Family Medicine 10/26/22 Sheeter Machine Operator Relationship Specialty Start Date End Date Heladio Madsen MD [address] [place] [address] PCP - General Family Medicine 06/12/18 [place] [address] [place], [place] [id number] Dcs Engineer Cardiology 12/25/21 Anya Mcbride [facility] - Medical Office Building [address] [place] [address] Pain Management Anesthesiology 01/17/22 Shayla 01/19/16 Sheeter Machine Operator Relationship Specialty Start Date End Date Heladio Madsen MD [address] [place] [id number] PCP - General Family Medicine 06/12/18 [place] [address] [place] [address] Dcs Engineer Cardiology 12/25/21 Anya Mcbride MD [address] [place] [address] Pain Management Anesthesiology 01/17/22 Shayla 01/19/16 Sheeter Machine Operator Relationship Specialty [place] [address] [place], [place] [phone] Dcs Engineer Cardiology 12/25/21 Anya Mcbride MD [address] [place] [address] Pain Management Anesthesiology 01/17/22 Shayla 01/19/16 FOR RECORDS PERTAINING TO PATIENTS WHO ARE OR HAVE BEEN ENROLLED IN A CHEMICAL DEPENDENCY/SUBSTANCEABUSE PROGRAM, SOME INFORMATION MAY BE OMITTED. This clinical summary was aggregated from multiple sources. Caution should be exercised in using it in the provision of clinical care. This summary normalizes information from multiple sources, and as a consequence, information in this document may materially change the coding, format and clinical context of patient data. In addition, data may be omitted in some cases. CLINICAL DECISIONS SHOULD BE BASED ON THE PRIMARY CLINICAL RECORDS. [email or web address] provides no warranty or guarantee of the accuracy or completeness of information in this document.
== END 2023-10-03 06:48 | disposition home or self-care (01) ==
LOC: ED 10-03 02:07
PROVIDERS: Emergency Provider Emergency Medicine; PCP Family Medicine; Visit Provider Emergency Medicine
DX: H11.31 Conjunctival hemorrhage, right eye (principal); J44.9 Chronic obstructive pulmonary disease, unspecified; I11.0 Hypertensive heart disease with heart failure; I50.9 Heart failure, unspecified; J96.11 Chronic respiratory failure with hypoxia; E11.9 Type 2 diabetes mellitus without complications; Z79.4 Long term (current) use of insulin; I25.2 Old myocardial infarction; I25.10 Atherosclerotic heart disease of native coronary artery without angina pectoris; W19.XXXA Unspecified fall, initial encounter; R55 Syncope and collapse; Z95.5 Presence of coronary angioplasty implant and graft; Z99.81 Dependence on supplemental oxygen; Z79.01 Long term (current) use of anticoagulants; Z79.82 Long term (current) use of aspirin; Z79.84 Long term (current) use of oral hypoglycemic drugs; Z79.899 Other long term (current) drug therapy; Z85.118 Personal history of other malignant neoplasm of bronchus and lung; Z87.891 Personal history of nicotine dependence
CPT/HCPCS: 51702; 70450; 72125; 72128; 72170; 96372; 99283